=== PATIENT | female | born 1945 | race American Indian/Alaskan Native ===

== ENCOUNTER 2019-01-15 07:32 | Inpatient (IN) | payer MEDICARE, MEDICAID ==
[2019-01-15] MEDS ORDERED: AMIDATE IV ONE (07:45)
[2019-01-15] MEDS ORDERED: QUELICIN ONE (07:45)
--- NOTE | 2019-01-15 07:53 | Emergency Department Report ---
HPI - General Chief Complaint: Dyspnea/Respdistress Time Seen by Provider: 01/15/19 07:46 - HPI HPI: Room 21 The patient is a 73-year-old male presenting with chief complaint of cardiac arrest. EMS states they received a call for respiratory distress upon arrival to [facility] pulseless apneic floor with a bradycardic PEA. Patient was intubated with a Combitube and ACLS protocols initiated. Per EMS the patient was administered epinephrine 2 rounds with return of spontaneous circulation. Patient arrived to the ED with a pulse, normotensive satting 100% supplemental O2. The Combitube was removed and the patient was intubated using RSI by [place]. 09:15 Family and besides states the patient is complaining of shortness of breath since . The patient has been sneezing but no history of cough Location: [See above] Duration: [See above] Quality: [See above] Severity: [See above] Modifying factors: [see above] Context: [see above] Mode of transportation: [not driving] ED Past Medical Hx - Past Medical History Previous Medical History?: Yes Hx Hypertension: Yes Additional medical history: Anemia - Surgical History Past Surgical History?: No - Family History Family history: no significant - Social History Smoking Status: Unknown if ever smoked ED Review of Systems ROS: Stated complaint: CARDIAC ARREST Other details as noted in HPI Comment: Unobtainable due to pts medical conditions Physical Exam - Physical Exam Vital Signs: Vital Signs 01/15/19 07:39 Pulse Rate 112 H Blood Pressure 121/83 O2 Sat by Pulse 100 Oximetry Physical Exam: GENERAL: The patient is well-developed well-nourished female lying on stretcher intubated with a Combitube exhibiting agonal respirations. [] HEENT: Normocephalic. Atraumatic. Pupils 3-2 mm bilaterally NECK: Trachea midline CHEST/LUNGS: Breath sounds equal bilaterally. Being bagged HEART/CARDIOVASCULAR: Regular. There is no tachycardia. There is no gallop rub or murmur. ABDOMEN: Abdomen is soft, nontender. Patient has normal bowel sounds. There is no abdominal distention. SKIN: There is no rash. There is no edema. There is no diaphoresis. NEURO: GCS 3T MUSCULOSKELETAL: There is no evidence of acute injury. ED Course Vital Signs 01/15/19 07:39 Pulse Rate 112 H Blood Pressure 121/83 O2 Sat by Pulse 100 Oximetry - Intubation Time Out Performed: No Sedative: Etomidate Mg Given: 20 Paralytic: Succinylcholine Mg Given: 100 Laryngoscope: Gerard Size: 3 ET Tube Size: 7 Tube Secured Depth (cm): 21 Tube Secured Location: lips Tube Placement Confirmation: visualized tube passing t, equal breath sounds bilat, no breath sounds over epi, confirmation by capnometr Patient Tolerated Procedure: well, no complications Intubation Complications: none ED Medical Decision Making - Lab Data Result diagrams: 01/15/19 07:50 01/15/19 07:50 Laboratory Tests 01/15/19 01/15/19 01/15/19 07:50 07:50 07:50 WBC 8.2 RBC 4.10 Hgb 12.1 Hct 40.4 MCV 99 H MCH 30 MCHC 30 RDW 16.7 H Plt Count 122 L PT 19.7 H INR 1.56 H APTT 36.0 Sodium 139 Potassium 3.9 Chloride 99.9 Carbon Dioxide 11 L Anion Gap 32 BUN 15 Creatinine 1.4 H Estimated GFR 44 BUN/Creatinine Ratio 11 Glucose 268 H Calcium 8.9 Total Bilirubin 0.50 ALT 29 Alkaline Phosphatase 61 Total Creatine Kinase 115 CK-MB (CK-2) 2.2 CK-MB (CK-2) Rel Index 1.9 Troponin T < 0.010 NT-Pro-B Natriuret Pep 5346 H Total Protein 6.3 Albumin 3.6 L Albumin/Globulin Ratio 1.3 - EKG Data -: EKG Interpreted by Me EKG shows normal: sinus rhythm Rate: tachycardia (102 bpm) - EKG Data When compared to previous EKG there are: previous EKG unavailable Interpretation: nonspecific ST-T wave brenda (ST depressions inferiorly and anteriorly), other (frequent PACs) - Radiology Data Radiology results: report reviewed (chest x-ray), image reviewed (chest x-ray) interpreted by me: Chest [id number] haziness right lung field. ET tube in appropriate position [facility] [address] [place] [address] XRay Report Signed Patient: ELLA RAPHAEL MR#: [id number] [birth year] : 1945 Acct:[id number] Age/Sex: 73 / F ADM Date: 01/15/19 Loc: ED Attending Dr: Celia vann Physician: LEORA PENNY MD Date of Service: 01/15/19 Procedure(s): XR chest 1V ap Accession Number(s): [id number] cc: LEORA PENNY MD Fluoro Time In Minutes: AP CHEST: HISTORY: Status post cardiac arrest No comparison. An endotracheal tube is in position terminating 4.6 cm superior to the john. Mild cardiomegaly is suspected. The lungs are hyperinflated. Subtle infiltration is noted in the right perihilar region and left lower lobe. This could represent congestive changes or less likely infiltrates. No large pleural effusion or pneumothorax is detected on portable AP chest. IMPRESSION: Adequate placement of the endotracheal tube. Hyperinflated lungs with subtle areas of infiltration as d escribed. Mild cardiomegaly. Transcribed By: TTR Dictated By: WING GIVENS JR, MD Electronically Authenticated By: WING GIVENS JR, MD Signed Date/Time: 01/15/19913 DD/ 1 TD/TT: 01/15/19913 - Differential Diagnosis respiratory arrest, cardiac arrest, ACS Critical Care Time: Yes Critical care time in (mins) excluding proc time.: 30 Critical care attestation.: If time is entered above; I have spent that time in minutes in the direct care of this critically ill patient, excluding procedure time. ED Disposition Clinical Impression: Respiratory arrest, CHF (congestive heart failure) Disposition: OP ADMIT IP TO THIS HOSP Is pt being admited?: Yes Does the pt Need Aspirin: Yes Condition: Serious Referrals: BRIELLE STEWART MD [Primary Care Provider] - 3-5 Days Time of Disposition: 09:41 (hospitalist paged )
[2019-01-15 08:14] LABS: INR 1.56 (0.87-1.13)
[2019-01-15] MEDS: INTROPIN DRIP 800 MG/D5W 250 ML 800 MG/250 ML BAG IV ONE (09:03)
[2019-01-15 09:10] LABS: Hematocrit 40.4 % (30.3-42.9); Hemoglobin 12.1 gm/dl (10.1-14.3); Mean Corpuscular HGB Conc 30 % (30-34); Mean Corpuscular Volume 99 fl (79-97); Platelet Count 122 K/mm3 (140-440); Red Cell Distribution Width 16.7 % (13.2-15.2)
--- NOTE | 2019-01-15 09:18 | XRay Report ---
AP CHEST: HISTORY: Status post cardiac arrest No comparison. An endotracheal tube is in position terminating 4.6 cm superior to the john. Mild cardiomegaly is suspected. The lungs are hyperinflated. Subtle infiltration is noted in the right perihilar region and left lower lobe. This could represent congestive changes or less likely infiltrates. No large pleural effusion or pneumothorax is detected on portable AP chest. IMPRESSION: Adequate placement of the endotracheal tube. Hyperinflated lungs with subtle areas of infiltration as described. Mild cardiomegaly.
[2019-01-15 09:34] LABS: Creatine Kinase MB 2.2 ng/mL (0.0-4.0)
[2019-01-15 09:35] LABS: Alanine Aminotransferase 29 units/L (7-56); Albumin 3.6 g/dL (3.9-5); BUN/Creatinine Ratio 11; Blood Urea Nitrogen 15 mg/dL (7-17); Calcium 8.9 mg/dL (8.4-10.2); Hemolysis Index 78
[2019-01-15] MEDS ORDERED: ASPIRIN PR ONE (09:42)
[2019-01-15] MEDS: ATIVAN IV PRN ×2 (09:45→12:43)
[2019-01-15 10:40] LABS: Eosinophils % (Auto) 0.8 % (0.0-4.3); Monocytes % (Auto) 4.6 % (0.0-7.3)
--- NOTE | 2019-01-15 10:50 | History and Physical Report ---
History of Present Illness Date of examination: 01/15/19 Date of admission: 01/15/19 09:46 Chief complaint: s/p cardioresp arrest at home History of present illness: Patient is 73 yo with hypertension, CAD s/p stent, COPD/emphesema, not on home Oxygen. Brought in by paramedics after cardioresp arrest at home. History obtained from daughter and granddaughter at bedside. From history, patient has been complaining of shortness of breath since . Patient called a family member that she had more shortness of breath today. Family member lives in same Apartment complex, same floor, came to her, found her on floor not breathing, started CPR, called paramedics. She was in jhon PEA, given 2 rounds Epinephrine, CPR, intubated , resucitated, and brought to ED. patient was seen and evaluated in ED. Will admit to ICU. Past History Past Medical History: CAD (stent placement), COPD, heart failure, hypertension, stroke, other (Emphesema) Past Surgical History: PTCA Social history: Lives alone, smoking, alcohol abuse (Drinks alcohol daily), full code Family history: CAD, hypertension Medications and Allergies Allergies Allergy/AdvReac Type Severity Reaction Status Date / Time No Known Allergies Allergy Unverified 01/15/19 08:23 Home Medications Medication Instructions Recorded Confirmed Last Taken Type AtorvaSTATin [Lipitor] 20 mg PO QHS 01/15/19 01/15/19 Unknown History Carvedilol [Coreg] 25 mg PO DAILY 01/15/19 01/15/19 Unknown History Furosemide [Lasix] 80 mg PO QWEEK 01/15/19 01/15/19 Unknown History Irbesartan 150 mg PO DAILY 01/15/19 01/15/19 Unknown History amLODIPine [Norvasc] 10 mg PO DAILY 01/15/19 01/15/19 Unknown History Active Meds: Active Medications Dopamine HCl/Dextrose (Intropin Drip 800 Mg/D5w 250 Ml) 800 mg in 250 mls @ 1.871 mls/hr IV TITR ONE; Protocol Stop: 01/20/19 22:31 Last Titration: 01/15/19 09:39 Dose: 6 mcg/kg/min, 5.613 mls/hr Documented by: Lorazepam (Ativan) 2 mg IV ONCE PRN PRN Reason: Agitation Last Admin: 01/15/19 09:45 Dose: 2 mg Documented by: Sodium Chloride (Sodium Chloride Flush Syringe 10 Ml) 10 ml IV BID DEON Sodium Chloride (Sodium Chloride Flush Syringe 10 Ml) 10 ml IV PRN PRN PRN Reason: LINE FLUSH Review of Systems ROS unobtainable: due to endotracheal tube Exam - Physical Exam Narrative exam: Gen: Not in acute distress,intubated HEENT: Normocephalic, atraumatic Neck: supple, no JVD Heart: S1 and S2 reg, no murmurs, rubs or gallop Lungs: Bilateral crackles, no wheeze Abd: soft, non tender, non distended, normal BS Ext: No edema, no clubbing, no cyanosis, Neuro: Intubated, Not following commands - Constitutional Vitals: Temp Pulse Resp BP Pulse Ox 75 20 116/67 100 01/15/19 10:25 01/15/19 10:25 01/15/19 10:25 01/15/19 10:15 Results - Labs CBC & Chem 7: 01/15/19 07:50 01/15/19 07:50 Labs: Abnormal lab results 01/15/19 01/15/19 01/15/19 Range/Units 07:50 07:50 07:50 MCV 99 H (79-97) fl RDW 16.7 H (13.2-15.2) % Plt Count 122 L (140-440) K/mm3 PT 19.7 H (12.2-14.9) Sec. INR 1.56 H (0.87-1.13) POC ABG pH (7.35-7.45) POC ABG pCO2 (35-45) Carbon Dioxide 11 L (22-30) mmol/L Creatinine 1.4 H (0.7-1.2) mg/dL Glucose 268 H (65-100) mg/dL AST 57 H (5-40) units/L NT-Pro-B Natriuret Pep 5346 H (0-900) pg/mL Albumin 3.6 L (3.9-5) g/dL 01/15/19 Range/Units 09:56 MCV (79-97) fl RDW (13.2-15.2) % Plt Count (140-440) K/mm3 PT (12.2-14.9) Sec. 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 Obtain stool cdiff, stool culture History of stroke in 1982 Full code status Discussed with family at bedside. Prognosis guarded
[2019-01-15] MEDS ORDERED: PROTONIX IV SCH (11:00)
[2019-01-15 12:41] LABS: Creatine Kinase MB 9.5 ng/mL (0.0-4.0)
--- NOTE | 2019-01-15 12:47 | Progress Note ---
Subjective Date of service: 01/15/19 Interval history: reviewed all ED notes and hx of resp arrest lab's noted and imaging studies reviewed plan EEG will follow Objective - Vital Sign Vital Signs - 12hr 01/15/19 01/15/19 01/15/19 07:34 07:36 07:39 Pulse Rate 113 H 125 H 112 H Respiratory 14 12 Rate Blood Pressure 136/63 121/83 O2 Sat by Pulse 100 Oximetry 01/15/19 01/15/19 01/15/19 07:40 07:45 07:50 Pulse Rate 106 H 113 H 112 H Respiratory 17 16 18 Rate Blood Pressure 136/63 121/83 121/83 O2 Sat by Pulse 100 100 100 Oximetry 01/15/19 01/15/19 01/15/19 07:55 08:00 08:05 Pulse Rate 107 H 102 H 98 H Respiratory 20 20 Rate Blood Pressure 151/100 151/100 145/97 O2 Sat by Pulse 100 Oximetry 01/15/19 01/15/19 01/15/19 08:10 08:15 08:20 Pulse Rate 95 H 92 H 90 Respiratory 20 20 19 Rate Blood Pressure 145/97 122/84 122/84 O2 Sat by Pulse 100 100 Oximetry 01/15/19 01/15/19 01/15/19 08:28 08:30 08:40 Pulse Rate 84 83 78 Respiratory 23 22 21 Rate Blood Pressure 101/69 93/62 O2 Sat by Pulse 87 100 Oximetry 01/15/19 01/15/19 01/15/19 08:45 08:50 08:55 Pulse Rate 77 75 74 Respiratory 20 20 20 Rate Blood Pressure 91/61 91/60 90/57 O2 Sat by Pulse 100 100 100 Oximetry 01/15/19 01/15/19 01/15/19 09:00 09:05 09:10 Pulse Rate 74 78 72 Respiratory 19 25 H 21 Rate Blood Pressure 92/59 86/56 92/64 O2 Sat by Pulse 100 100 100 Oximetry 01/15/19 01/15/19 01/15/19 09:15 09:20 09:25 Pulse Rate 71 71 70 Respiratory 20 21 22 Rate Blood Pressure 97/62 95/61 98/64 O2 Sat by Pulse 100 100 100 Oximetry 01/15/19 01/15/19 01/15/19 09:30 09:35 09:40 Pulse Rate 71 72 72 Respiratory 19 21 21 Rate Blood Pressure 102/66 99/63 105/69 O2 Sat by Pulse 100 100 100 Oximetry 01/15/19 01/15/19 01/15/19 09:45 09:50 09:55 Pulse Rate 71 73 74 Respiratory 20 20 20 Rate Blood Pressure 95/64 91/59 93/60 O2 Sat by Pulse 100 100 100 Oximetry 01/15/19 01/15/19 01/15/19 10:00 10:05 10:10 Pulse Rate 80 72 78 Respiratory 30 H 20 16 Rate Blood Pressure 102/65 110/64 109/75 O2 Sat by Pulse 100 100 100 Oximetry 01/15/19 01/15/19 01/15/19 10:15 10:20 10:25 Pulse Rate 79 78 75 Respiratory 17 13 20 Rate Blood Pressure 111/75 124/76 116/67 O2 Sat by Pulse 100 Oximetry 01/15/19 01/15/19 01/15/19 10:30 10:35 11:23 Pulse Rate 76 76 85 Respiratory 20 20 Rate Blood Pressure 110/70 119/78 175/83 O2 Sat by Pulse 100 100 Oximetry - Laboratory Findings CBC and BMP: 01/15/19 07:50 01/15/19 07:50 Abnormal Lab Findings: Abnormal Labs 01/15/19 01/15/19 01/15/19 07:50 07:50 07:50 MCV 99 H RDW 16.7 H Plt Count 122 L PT 19.7 H INR 1.56 H POC ABG pH POC ABG pCO2 Carbon Dioxide 11 L Creatinine 1.4 H Glucose 268 H AST 57 H CK-MB (CK-2) NT-Pro-B Natriuret Pep 5346 H Albumin 3.6 L 01/15/19 01/15/19 09:56 11:53 MCV RDW Plt Count PT INR POC ABG pH 7.186 L POC ABG pCO2 46.4 H Carbon Dioxide Creatinine Glucose AST CK-MB (CK-2) 9.5 H NT-Pro-B Natriuret Pep Albumin
--- NOTE | 2019-01-15 12:59 | Consultation ---
History of Present Illness Consult date: 01/15/19 Requesting physician: SURJIT CRAFT Reason for consult: hypoxemia, other (acute encephalopathy, on MVS) History of present illness: Patient is 73 yo with hypertension, CAD s/p stent, COPD/emphesema. Brought in by paramedics after cardiorespiratory arrest at home. History obtained from daughter and granddaughter at bedside. from history patient called a family member that she had more shortness of breath. family member lives in [facility], came to her, found her on floor not breathing, started CPR, called paramedics. She was in jhon PEA, given 2 rounds of epinephrine, CPR, intubated , resuscitated, brought to ED. family also states she has been short of breath on and off since . Discussed with Dr. Craft I have been consulted for critical care and ventilator management Patient seen and examined. Vitals, labs, medications, chart and imaging reviewed Past History Past Medical History: CAD (stent placement), COPD, heart failure, hypertension, stroke, other (Emphesema) Past Surgical History: PTCA Social history: Lives alone, smoking, alcohol abuse (Drinks alcohol daily), full code Family history: CAD, hypertension Medications and Allergies Allergies Allergy/AdvReac Type Severity Reaction Status Date / Time No Known Allergies Allergy Unverified 01/15/19 08:23 Home Medications Medication Instructions Recorded Confirmed Last Taken Type AtorvaSTATin [Lipitor] 20 mg PO QHS 01/15/19 01/15/19 Unknown History Carvedilol [Coreg] 25 mg PO DAILY 01/15/19 01/15/19 Unknown History Furosemide [Lasix] 80 mg PO QWEEK 01/15/19 01/15/19 Unknown History Irbesartan 150 mg PO DAILY 01/15/19 01/15/19 Unknown History amLODIPine [Norvasc] 10 mg PO DAILY 01/15/19 01/15/19 Unknown History Active Meds: Active Medications Albuterol/Ipratropium (Duoneb *Not For Prn Use*) 1 ampul IH Q6HRT DEON Atorvastatin Calcium (Lipitor) 20 mg PO QHS DEON Furosemide (Lasix) 20 mg IV ONCE ONE Stop: 01/15/19 10:55 Dopamine HCl/Dextrose (Intropin Drip 800 Mg/D5w 250 Ml) 800 mg in 250 mls @ 1.871 mls/hr IV TITR ONE; Protocol Stop: 01/20/19 22:31 Last Titration: 01/15/19 12:45 Dose: 2 mcg/kg/min, 1.871 mls/hr Documented by: Levetiracetam 750 mg/ Dextrose 107.5 mls @ 400 mls/hr IV Q12HR DEON Lorazepam (Ativan) 2 mg IV ONCE PRN PRN Reason: Agitation Last Admin: 01/15/19 12:43 Dose: 2 mg Documented by: Pantoprazole Sodium (Protonix) 40 mg IV QDAY DEON Sodium Chloride (Sodium Chloride Flush Syringe 10 Ml) 10 ml IV BID DEON Sodium Chloride (Sodium Chloride Flush Syringe 10 Ml) 10 ml IV PRN PRN PRN Reason: LINE FLUSH Review of Systems ROS unobtainable: due to endotracheal tube, due to mental status Physical Examination Vital signs: Vital Signs Pulse Resp 113 H 14 01/15/19 07:34 01/15/19 07:34 General appearance: no acute distress, other (myoclonic jerks of the upper extremities, chronically ill looking) Eyes: non-icteric ENT: oropharynx moist, other (ETT at 22 cm at the lip, no patient-ventilator dyssynchrony) Neck: supple, no lymphadenopathy, no JVD Effort: normal Ascultation: Bilateral: diminished breath sounds (at the base), other (coarse breath sound bilaterally upper lobes anteriorly) Cardiovascular: regular rate and rhythm, other (S1,S2, no murmurs, galoops or rubs) Gastrointestinal: normoactive bowel sounds, soft, non-tender, non-distended Integumentary: normal Extremities: no cyanosis, no edema, pulses normal, no ischemia or petechiae Musculoskeletal: no deformities other (unresponsive, has a cough and gag) other (unable to assess) Results - Laboratory Findings CBC and BMP: 01/16/19 04:16 01/16/19 04:16 ABG POC ABG pH 7.186 (7.35-7.45) L 01/15/19 09:56 POC ABG pCO2 46.4 (35-45) H 01/15/19 09:56 POC ABG HCO3 17.6 (22-26 mml/L) 01/15/19 09:56 POC ABG Total CO2 19 (23-27mmol/L) 01/15/19 09:56 POC ABG O2 Sat 100 01/15/19 09:56 PT/INR, D-dimer PT 19.7 Sec. (12.2-14.9) H 01/15/19 07:50 INR 1.56 (0.87-1.13) H 01/15/19 07:50 Abnormal lab findings: Abnormal Labs 01/15/19 01/15/19 01/15/19 07:50 07:50 07:50 MCV 99 H RDW 16.7 H Plt Count 122 L PT 19.7 H INR 1.56 H POC ABG pH POC ABG pCO2 Carbon Dioxide 11 L Creatinine 1.4 H Glucose 268 H AST 57 H CK-MB (CK-2) NT-Pro-B Natriuret Pep 5346 H Albumin 3.6 L 01/15/19 01/15/19 09:56 11:53 MCV RDW Plt Count PT INR POC ABG pH 7.186 L POC ABG pCO2 46.4 H Carbon Dioxide Creatinine Glucose AST CK-MB (CK-2) 9.5 H NT-Pro-B Natriuret Pep Albumin - Diagnostic Findings Chest x-ray: image reviewed (right upper lobe nodule, hyperinflated, coarse interstitial infiltrates) Assessment and Plan s/p Cardiopulmonary arrest, out of hospital, PEA with ROSC Acute encephalopathy, metabolic Acute metabolic acidosis Acute respiratory acidosis Seizure activity Abnormal CXR., possible RUL nodule h/o Alcohol use h/o Tobacco use disorder -CT head and EEG -Continue full MVS, get follow up ABG. -Adjust minute ventilation for better acid-base -Wean supplemental oxygen to keep O2 sats 88-90% -Lung protective strategies -Oxygen restrictive strategies -Daily ABGs/CXR -Follow tracheal aspirate cultures -CT chest without contrast to evaluate RUL nodule and infiltrates in the right lung, possible aspiration -VAP bundle addressed -Volume resuscitation. Monitor renal indices closely -Avoid nephrotoxic agents, adjust all medications for CrCL -Strict intake and output monitoring -Wean dopamine for MAP >65 -Daily SAT's & SBT's, start in nori morning -Sedation target for RASS 0 to -1 -Stress ulcer prophylaxis -VTE prophylaxis, if CT head is negative for intra-cranial bleeding -Nutrition consult for tube feedings -Aspiration precautions -Accuchecks with glycemic control. Target glucose of 140-180 mg/dL -Bronchodilators with pulmonary hygiene per RT -Maintenance of sleep -wake cycle -Mobility as tolerated by hemodynamics -Influenza and pneumonia vaccination per protocol -Agree with Cardiology and Neurology consult -Get trans-thoracic echocardiogram ..care plan discussed at length with RN/RT at the bedside PROGNOSIS: GUARDED CONDITION: CRITICAL CODE STATUS: FULL CODE The high probability of a clinically significant, sudden or life-threatening deterioration of the [respiratory, neurology, renal] system(s) required my full and direct attention, intervention and personal management. The aggregate critical care time was [75] minutes without overlap. Time includes spent on; [x] Data Review and interpretation [x] Patient assessment and monitoring of vital signs [x] Documentation [x] Medication orders and management
--- NOTE | 2019-01-15 13:34 | Event Note ---
Date: 01/15/19 Called by Nurse that Patient has jerky movements. Give Ativan iv prn, Keppra 750mg iv q12h. get CT head. Consult neuro. I discussed with Dr. gomez.
--- NOTE | 2019-01-15 13:39 | Consultation ---
History of Present Illness Consult date: 01/15/19 Consult reason: cardiac arrest History of present illness: Patient is a 73 y/o female with a history of diastolic HF, cardiomyopathy, CAD s/p stent (date unknown), pericardial effusion requiring pericardiocentesis (2012), hypertension, COPD with emphysema, CKD and gout who presented to the ED on 01/15/19 after a cardiac arrest. Patient is currently intubated and unresponsive and there is no family at beside, so history obtained from EMR. Per records, patient called a family member c/o increasing SOB. When family member arrived, he found her unresponsive and not breathing on floor and began CPR. EMS found her in jhon PEA and she received two rounds of epi and CPR. Family also reports she has had worsening SOB since . She follows with Dr. Montoya at [facility]. Chest X-ray showed hyperinflated lungs with areas of infiltration. We are consulted to evaluate patient post-arrest. Pro-BNP >5000. Her last echocardiogram in 2013 found an LVEF of 50 to 55 percent, a moderately dilated left atrium and right atrium, mild diastolic dysfunction with an impaired relaxation and normal LA pressure, mild to moderate TR, mild MR and mildly elevated RV systolic pressure. Past History Past Medical History: CAD (stent placement), COPD (with emphysema), heart failure, hypertension, stroke, other (Gout, CKD) Past Surgical History: PTCA Social history: Lives alone, smoking, alcohol abuse (Drinks alcohol daily), full code Family history: CAD, hypertension Medications and Allergies Allergies Allergy/AdvReac Type Severity Reaction Status Date / Time No Known Allergies Allergy Unverified 01/15/19 08:23 Home Medications Medication Instructions Recorded Confirmed Last Taken Type AtorvaSTATin [Lipitor] 20 mg PO QHS 01/15/19 01/15/19 Unknown History Carvedilol [Coreg] 25 mg PO DAILY 01/15/19 01/15/19 Unknown History Furosemide [Lasix] 80 mg PO QWEEK 01/15/19 01/15/19 Unknown History Irbesartan 150 mg PO DAILY 01/15/19 01/15/19 Unknown History amLODIPine [Norvasc] 10 mg PO DAILY 01/15/19 01/15/19 Unknown History Active Meds: Active Medications Albuterol/Ipratropium (Duoneb *Not For Prn Use*) 1 ampul IH Q6HRT DEON Atorvastatin Calcium (Lipitor) 20 mg PO QHS DEON Famotidine (Pepcid) 20 mg IV DAILY DEON Furosemide (Lasix) 20 mg IV ONCE ONE Stop: 01/15/19 14:01 Dopamine HCl/Dextrose (Intropin Drip 800 Mg/D5w 250 Ml) 800 mg in 250 mls @ 1.871 mls/hr IV TITR ONE; Protocol Stop: 01/20/19 22:31 Last Titration: 01/15/19 12:45 Dose: 2 mcg/kg/min, 1.871 mls/hr Documented by: Levetiracetam 750 mg/ Dextrose 107.5 mls @ 400 mls/hr IV Q12HR DEON Lorazepam (Ativan) 2 mg IV ONCE PRN PRN Reason: Agitation Last Admin: 01/15/19 12:43 Dose: 2 mg Documented by: Sodium Chloride (Sodium Chloride Flush Syringe 10 Ml) 10 ml IV BID DEON Sodium Chloride (Sodium Chloride Flush Syringe 10 Ml) 10 ml IV PRN PRN PRN Reason: LINE FLUSH Review of Systems ROS unobtainable: due to endotracheal tube, due to mental status Physical Examination Last Vital Signs Temp Pulse 85 01/15/19 11:23 Resp 20 01/15/19 10:35 BP 175/83 01/15/19 11:23 Pulse Ox 100 01/15/19 11:23 Narrative exam: Elderly female lying in bed intubated unresponsive with some intermittent jerking movements noted. Post-arrest EKG shows ischemic changes and T-wave abnormalities. Cardiac: Positive: Reg Rate and Rhythm, S1/S2 Lungs: Positive: Ventilated Respirations Neuro: Positive: Other (jerking movements, unresponsive ) Results 01/15/19 07:50 01/15/19 07:50 Cardiac Enzymes 01/15/19 01/15/19 Range/Units 07:50 11:53 AST 57 H (5-40) units/L CK-MB (CK-2) 2.2 9.5 H (0.0-4.0) ng/mL Coagulation 01/15/19 Range/Units 07:50 PT 19.7 H (12.2-14.9) Sec. INR 1.56 H (0.87-1.13) APTT 36.0 (24.2-36.6) Sec. CBC 01/15/19 Range/Units 07:50 WBC 8.2 (4.5-11.0) K/mm3 RBC 4.10 (3.65-5.03) M/mm3 Hgb 12.1 (10.1-14.3) gm/dl Hct 40.4 (30.3-42.9) % Plt Count 122 L (140-440) K/mm3 Lymph # Not Reportable [place] # Not Reportable Eos # Not Reportable Baso # Not Reportable Comprehensive Metabolic Panel 01/15/19 Range/Units 07:50 Sodium 139 (137-145) mmol/L Potassium 3.9 (3.6-5.0) mmol/L Chloride 99.9 (98-107) mmol/L Carbon Dioxide 11 L (22-30) mmol/L BUN 15 (7-17) mg/dL Creatinine 1.4 H (0.7-1.2) mg/dL Glucose 268 H (65-100) mg/dL Calcium 8.9 (8.4-10.2) mg/dL AST 57 H (5-40) units/L ALT 29 (7-56) units/L Alkaline Phosphatase 61 (35-129) units/L Total Protein 6.3 (6.3-8.2) g/dL Albumin 3.6 L (3.9-5) g/dL - Imaging and Cardiology Echo: report reviewed (LVEF of 50 to 55 percent, a moderately dilated left atrium and right atrium, mild diastolic dysfunction with an impaired relaxation and 09/03/2014: normal LA pressure, mild to moderate TR, mild MR and mildly elevated RV systolic pressure), other EKG: image reviewed - EKG Interpretation EKG: sinus rhythm EKG interpretations Chamber hypertrophy or enlargement: left ventricular hypertro Repolarization changes or abnormalities: ST or T wave suggestive of ischemia Assessment and Plan 73 y/o female with cardiac history that includes HF, cardiomyopathy, htn and CAD admitted after arrest at home. Initiated on dopamine drip, but now discontinue d. Will obtain echocardiogram. Will further evaluate for possible ischemia workup after patient medically stabilizes. Continue to hold home Coreg, irbesartan, Lasix and Norvasc for now. Patient has been seen in conjunction with Dr. Tucker, who agrees with assessment and plan. - Patient Problems (1) Cardiac arrest Current Visit: Yes Status: Acute (2) Respiratory arrest Current Visit: Yes Status: Acute (3) Altered mental status Current Visit: Yes Status: Acute (4) CHF (congestive heart failure) Current Visit: Yes Status: Acute (5) Cardiomyopathy Current Visit: Yes Status: Chronic (6) CKD (chronic kidney disease) Current Visit: Yes Status: Chronic (7) CAD S/P percutaneous coronary angioplasty Current Visit: Yes Status: Chronic (8) Stroke Current Visit: No Status: Chronic (9) COPD (chronic obstructive pulmonary disease) with emphysema Current Visit: Yes Status: Acute (10) Gout Current Visit: No Status: Chronic
[2019-01-15] MEDS: PEPCID IV SCH (13:44)
[2019-01-15] MEDS ORDERED: LASIX IV ONE (14:00)
[2019-01-15] MEDS: DUONEB *Not for PRN Use IH SCH ×2 (14:30→22:13)
[2019-01-15] MEDS ORDERED: SODIUM BICARBONATE FEEDTUBE PRN (14:37)
[2019-01-15] MEDS ORDERED: PANCREAZE DR 10,500 UNIT FEEDTUBE PRN (14:37)
[2019-01-15] MEDS ORDERED: SIMPLE SYRUP FEEDTUBE PRN ×2 (14:37)
--- NOTE | 2019-01-15 14:59 | Cat Scan Report ---
CT HEAD WITHOUT CONTRAST: HISTORY: Jerky movements. TECHNIQUE: Sequential 2.5mm CT images. COMPARISON: none. FINDINGS: Cerebral Parenchyma: Within normal limits. Cerebellum: 4.1 x 2.1 cm chronic infarct is identified in the superior right cerebellum within the right superior cerebellar artery territory. Brainstem: Within normal limits. Ventricles: Normal. Sella: Normal. Extra-axial spaces: Normal. Basal Cisterns: Normal. Intracranial Hemorrhage: None. Midline Shift: None. Calvarium: Normal. Sinuses: Normal. Mastoid Air Cells: Normal. Visualized Orbits: Normal. IMPRESSION: Chronic right cerebellar infarct. No acute intracranial process is identified.
--- NOTE | 2019-01-15 15:02 | Cat Scan Report ---
CT CHEST WITHOUT CONTRAST: HISTORY: Right lung nodule/infiltrates, post PEA arrest. COMPARISON: none. TECHNIQUE: Helical CT in 1.25mm intervals without IV contrast. Sagittal and coronal reformatted images. FINDINGS: Thyroid gland: Normal size. 5 mm left thyroid hypodensity is noted. Tracheobronchial tree: An endotracheal tube is in good position. Esophagus: Normal. Heart: Mild cardiomegaly. Pericardium: Normal. Mediastinum: 1 cm calcified right hilar lymph node probably related to chronic granulomatous disease. Lung Hansen: Within normal limits. No no suspicious lung nodule is identified. Calcified granuloma is noted in the right lower lobe. No infiltrates. Pleural Spaces: Trace to small bilateral layering pleural effusions. Musculoskeletal: Intact. Mild thoracic spondylosis. IMPRESSION: Mild CHF.
[2019-01-15] MEDS: KEPPRA 750 MG in D5W 100 ML IV SCH ×2 (15:12→21:42)
--- NOTE | 2019-01-15 16:10 | Progress Note ---
Subjective Date of service: 01/15/19 Interval history: I personally went over the CT and nothing specific to note only generalized atrophy do not see any specific pattern of brain edema Objective - Vital Sign Vital Signs - 12hr 01/15/19 01/15/19 01/15/19 07:34 07:36 07:39 Pulse Rate 113 H 125 H 112 H Respiratory 14 12 Rate Blood Pressure 136/63 121/83 O2 Sat by Pulse 100 Oximetry 01/15/19 01/15/19 01/15/19 07:40 07:45 07:50 Pulse Rate 106 H 113 H 112 H Respiratory 17 16 18 Rate Blood Pressure 136/63 121/83 121/83 O2 Sat by Pulse 100 100 100 Oximetry 01/15/19 01/15/19 01/15/19 07:55 08:00 08:05 Pulse Rate 107 H 102 H 98 H Respiratory 20 20 Rate Blood Pressure 151/100 151/100 145/97 O2 Sat by Pulse 100 Oximetry 01/15/19 01/15/19 01/15/19 08:10 08:15 08:20 Pulse Rate 95 H 92 H 90 Respiratory 20 20 19 Rate Blood Pressure 145/97 122/84 122/84 O2 Sat by Pulse 100 100 Oximetry 01/15/19 01/15/19 01/15/19 08:28 08:30 08:40 Pulse Rate 84 83 78 Respiratory 23 22 21 Rate Blood Pressure 101/69 93/62 O2 Sat by Pulse 87 100 Oximetry 01/15/19 01/15/19 01/15/19 08:45 08:50 08:55 Pulse Rate 77 75 74 Respiratory 20 20 20 Rate Blood Pressure 91/61 91/60 90/57 O2 Sat by Pulse 100 100 100 Oximetry 01/15/19 01/15/19 01/15/19 09:00 09:05 09:10 Pulse Rate 74 78 72 Respiratory 19 25 H 21 Rate Blood Pressure 92/59 86/56 92/64 O2 Sat by Pulse 100 100 100 Oximetry 01/15/19 01/15/19 01/15/19 09:15 09:20 09:25 Pulse Rate 71 71 70 Respiratory 20 21 22 Rate Blood Pressure 97/62 95/61 98/64 O2 Sat by Pulse 100 100 100 Oximetry 01/15/19 01/15/19 01/15/19 09:30 09:35 09:40 Pulse Rate 71 72 72 Respiratory 19 21 21 Rate Blood Pressure 102/66 99/63 105/69 O2 Sat by Pulse 100 100 100 Oximetry 01/15/19 01/15/19 01/15/19 09:45 09:50 09:55 Pulse Rate 71 73 74 Respiratory 20 20 20 Rate Blood Pressure 95/64 91/59 93/60 O2 Sat by Pulse 100 100 100 Oximetry 01/15/19 01/15/19 01/15/19 09:56 10:00 10:05 Pulse Rate 74 80 72 Respiratory 30 H 20 Rate Blood Pressure 91/59 102/65 110/64 O2 Sat by Pulse 100 100 100 Oximetry 01/15/19 01/15/19 01/15/19 10:10 10:15 10:20 Pulse Rate 78 79 78 Respiratory 16 17 13 Rate Blood Pressure 109/75 111/75 124/76 O2 Sat by Pulse 100 100 Oximetry 01/15/19 01/15/19 01/15/19 10:25 10:30 10:35 Pulse Rate 75 76 76 Respiratory 20 20 20 Rate Blood Pressure 116/67 110/70 119/78 O2 Sat by Pulse 100 Oximetry 01/15/19 01/15/19 11:23 14:41 Pulse Rate 85 97 H Respiratory Rate Blood Pressure 175/83 126/74 O2 Sat by Pulse 100 99 Oximetry - Laboratory Findings CBC and BMP: 01/15/19 07:50 01/15/19 07:50 Abnormal Lab Findings: Abnormal Labs 01/15/19 01/15/19 01/15/19 07:50 07:50 07:50 MCV 99 H RDW 16.7 H Plt Count 122 L PT 19.7 H INR 1.56 H POC ABG pH POC ABG pCO2 Carbon Dioxide 11 L Creatinine 1.4 H Glucose 268 H AST 57 H Total Creatine Kinase CK-MB (CK-2) NT-Pro-B Natriuret Pep 5346 H Albumin 3.6 L 01/15/19 01/15/19 09:56 11:53 MCV RDW Plt Count PT INR POC ABG pH 7.186 L POC ABG pCO2 46.4 H Carbon Dioxide Creatinine Glucose AST Total Creatine Kinase 683 H CK-MB (CK-2) 9.5 H NT-Pro-B Natriuret Pep Albumin
--- NOTE | 2019-01-15 16:52 | XRay Report ---
PROCEDURE: XR CHEST 1V AP TECHNIQUE: AP view of the chest was obtained. HISTORY: Right arm PICC placement COMPARISONS: None FINDINGS: Endotracheal tube in place. The tip lies 4.5 cm above the john. PICC line seen entering from the ri ght. Tip of the catheter projects in the proximal SVC. The heart is mildly enlarged. Pulmonary vascul ature not significantly distended. Minimal patchy density present in the bases probably representing a small amount of atelectasis. No dense consolidations or effusions are seen. There is mild deformity of the left ninth rib laterally. This may be related to old trauma. Correlation with physical exam i s recommended to exclude an acute fracture. IMPRESSION: Endotracheal tube and PICC line in place as described and appear to be in good position. Small amount of basilar atelectasis suspected. Mild deformity left ninth rib may be related to old trauma. Correlation with physical exam is recomme nded.. This document is electronically signed by Toby Aparicio MD., January 15 2019 04:50:44 PM ET
[2019-01-15 17:05] LABS: Amphetamine Screen,Urine PRESUMPTIVE NEGATIVE; Benzodiazepines Screen,Urine PRESUMPTIVE NEGATIVE; Cannabinoid Screen,Urine PRESUMPTIVE NEGATIVE; Cocaine Screen,Urine PRESUMPTIVE NEGATIVE; Methadone Screen,Urine PRESUMPTIVE NEGATIVE; Opiate Screen,Urine PRESUMPTIVE NEGATIVE
--- NOTE | 2019-01-15 17:49 | XRay Report ---
PROCEDURE: XR ABDOMEN 1V AP TECHNIQUE: Supine abdomen HISTORY: DOBHOFF confirmation COMPARISONS: FINDINGS: Feeding tube present. Distal end below the diaphragm with tip at the gastric fundus Visualized bowel gas pattern is unremarkable. No additional acute findings. IMPRESSION: Dobbhoff tube with tip at the fundus of the stomach. This document is electronically signed by José Perez MD., January 15 2019 05:47:02 PM ET
[2019-01-15 18:44] LABS: Creatine Kinase MB 13.5 ng/mL (0.0-4.0)
[2019-01-15 19:48] LABS: Chol/HDL Ratio 2.29 %
[2019-01-15] MEDS: SODIUM CHLORIDE FLUSH SYRINGE 10 ML IV SCH (21:43)
--- NOTE | 2019-01-16 01:11 | Consultation ---
HISTORY OF PRESENT ILLNESS: This 73-year-old black female that presents to [facility] Emergency Department. This patient is admitted to the hospital with a prior history of asthmatic bronchitis, COPD, and has had a previous history of hypertension. She apparently was at home, had been taking medications including Lasix, Norvasc, Coreg, Lipitor and irbesartan 150 mg daily was in her usual state of health when she was then found by neighbors lying face down, not breathing. EMS was called. Resuscitation was attempted. She was brought to the hospital in a full respiratory and cardiac arrest. Detailed testing done at that time did not reveal any prior history of seizures or strokes. She has had in the interval a CT scan of the head, which is done and I have reviewed. There was evidence of diffuse cerebral atrophy, very profound in the cerebellum with marked atrophy of the cerebellum. There is a calcification of the choroid plexus in the fourth ventricle, which is a normal anatomical variation. There is calcification of the pineal gland. The jacinto and white matter is, otherwise, unremarkable. No evidence of any acute stroke is present. There is no intracerebral hemorrhage, bleed or edema noted. The remainder of the examination reveals her to be markedly obtunded. She has had occasional myoclonic jerks. Her current blood pressure is 100/70, pulse rate 80. The patient is on full ventilatory assist and she does not respond to pain, does not awaken to voice or stimulation. She does not track with her eyes open. She does have intact doll's eyes, but minimally present. Pupils are 4 mm and very sluggishly reactive to light. She does not move spontaneously. She has a minimally positive gag reflex. IMPRESSION: Profound cerebral hypoxia due to both cardiac and respiratory arrest. I do not see any evidence on the CT of anything out of the ordinary that would have precipitated this such as intracranial hemorrhage. I will get an EEG on the patient. I did speak with Dr. Hassan at the bedside regarding cardiology assessment that is all pending at present time. JOB# [id number] MYRNA/VIANEY
[2019-01-16] MEDS: DUONEB *Not for PRN Use IH SCH ×4 (05:05→19:30)
[2019-01-16 05:23] LABS: Hematocrit 34.8 % (30.3-42.9); Hemoglobin 11.6 gm/dl (10.1-14.3); Mean Corpuscular HGB Conc 33 % (30-34); Mean Corpuscular Volume 87 fl (79-97); Platelet Count 105 K/mm3 (140-440); Red Cell Distribution Width 14.3 % (13.2-15.2)
[2019-01-16 05:43] LABS: Albumin 3.5 g/dL (3.9-5); Calcium 8.1 mg/dL (8.4-10.2)
[2019-01-16] MEDS: INTROPIN DRIP 800 MG/D5W 250 ML 800 MG/250 ML BAG IV ONE (06:18)
[2019-01-16 07:37] LABS: Band Neutrophils # (Manual) 2.5 K/mm3; Basophils % (Manual) 0 % (0.0-1.8); Eosinophils % (Manual) 0 % (0.0-4.3); RBC Morphology Normal; Total Cells Counted 100
[2019-01-16 07:38] LABS: Platelet Estimate Consistent w Auto
[2019-01-16] MEDS ORDERED: POTASSIUM CHLORIDE FEEDTUBE ONE (08:00)
--- NOTE | 2019-01-16 08:55 | Progress Note ---
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 Deescalate as indicated -Discussed extensively with the grand-daughter, who is the POA. -She wants everything done, full resuscitation and all life prolonging interventions -She is waiting on Neurology and EEG follow up -Continue all other care as detailed below -Continue full MVS -Wean supplemental oxygen to keep O2 sats 88-90% -Lung protective strategies -Oxygen restrictive strategies -Daily ABGs/CXR for now -Follow tracheal aspirate cultures -VAP bundle addressed -Monitor renal indices closely -Avoid nephrotoxic agents, adjust all medications for CrCL -Strict intake and output monitoring -Daily SAT & SBT -Sedation target for RASS 0 to -1 -Stress ulcer prophylaxis -VTE prophylaxis, -Tube feedings -Aspiration precautions -Accuchecks with glycemic control. Target glucose of 140-180 mg/dL -Bronchodilators with pulmonary hygiene per RT -Maintenance of sleep -wake cycle -Mobility as tolerated by hemodynamics -Influenza and pneumonia vaccination per protocol ..care plan discussed at length with RN/RT at the bedside ..discussed in ICU-IDT rounds PROGNOSIS: GUARDED CONDITION: CRITICAL CODE STATUS: FULL CODE The high probability of a clinically significant, sudden or life-threatening deterioration of the [respiratory, neurology, renal] system(s) required my full and direct attention, intervention and personal management. The aggregate critical care time was [45] minutes without overlap. Time includes spent on; [x] Data Review and interpretation [x] Patient assessment and monitoring of vital signs [x] Documentation [x] Medication orders and management Subjective Date of service: 01/16/19 Interval history: Patient is seen today for: out of hospital arrest with ROSC, acute hypoxemic respiratory failure, acute encephalopathy Seen and examined at bedside; 24-hour events reviewed; nursing and respiratory care staff consulted; no adverse overnight events reported to me; Had a fever, with Tmax of 101, had a cooper placed for acute urinary retention, no further seizure like activity, tolerating PSV 08/24 with tidal volumes of 380. Had diarrheal stools. No vomiting. Objective Vital Signs - 12hr 01/15/19 01/15/19 01/15/19 21:00 21:11 21:21 Temperature Pulse Rate 105 H 106 H 103 H Pulse Rate [ Anterior Bilateral Throughout] Pulse Rate [ From Monitor] Respiratory 22 22 21 Rate Respiratory Rate [Anterior Bilateral Throughout] Blood Pressure 118/75 112/70 112/70 O2 Sat by Pulse 100 100 Oximetry 01/15/19 01/15/19 01/15/19 21:30 21:41 21:51 Temperature Pulse Rate 105 H 102 H 102 H Pulse Rate [ Anterior Bilateral Throughout] Pulse Rate [ From Monitor] Respiratory 23 23 24 Rate Respiratory Rate [Anterior Bilateral Throughout] Blood Pressure 122/72 122/72 122/72 O2 Sat by Pulse 100 100 100 Oximetry 01/15/19 01/15/19 01/15/19 22:00 22:11 22:21 Temperature Pulse Rate 102 H 106 H 109 H Pulse Rate [ Anterior Bilateral Throughout] Pulse Rate [ From Monitor] Respiratory 20 25 H 20 Rate Respiratory Rate [Anterior Bilateral Throughout] Blood Pressure 108/70 108/70 108/70 O2 Sat by Pulse 100 100 88 Oximetry 01/15/19 01/15/19 01/15/19 22:31 22:41 22:51 Temperature Pulse Rate 119 H 114 H 106 H Pulse Rate [ Anterior Bilateral Throughout] Pulse Rate [ From Monitor] Respiratory 21 24 20 Rate Respiratory Rate [Anterior Bilateral Throughout] Blood Pressure 106/58 108/70 108/70 O2 Sat by Pulse 88 100 Oximetry 01/15/19 01/15/19 01/15/19 23:01 23:11 23:21 Temperature Pulse Rate 105 H 105 H 105 H Pulse Rate [ Anterior Bilateral Throughout] Pulse Rate [ From Monitor] Respiratory 20 20 22 Rate Respiratory Rate [Anterior Bilateral Throughout] Blood Pressure 119/74 119/74 119/74 O2 Sat by Pulse 100 100 100 Oximetry 01/15/19 01/15/19 01/15/19 23:30 23:41 23:51 Temperature Pulse Rate 106 H 105 H 103 H Pulse Rate [ Anterior Bilateral Throughout] Pulse Rate [ From Monitor] Respiratory 22 24 20 Rate Respiratory Rate [Anterior Bilateral Throughout] Blood Pressure 120/81 120/81 120/81 O2 Sat by Pulse 100 100 100 Oximetry 01/15/19 01/16/19 01/16/19 23:59 00:00 00:02 Temperature 100.2 F H Pulse Rate 105 H 105 H Pulse Rate [ Anterior Bilateral Throughout] Pulse Rate [ 105 H From Monitor] Respiratory 22 Rate Respiratory Rate [Anterior Bilateral Throughout] Blood Pressure 130/79 130/79 O2 Sat by Pulse 100 100 Oximetry 01/16/19 01/16/19 01/16/19 00:11 00:21 00:30 Temperature Pulse Rate 103 H 105 H 103 H Pulse Rate [ Anterior Bilateral Throughout] Pulse Rate [ From Monitor] Respiratory 22 27 H 24 Rate Respiratory Rate [Anterior Bilateral Throughout] Blood Pressure 130/79 130/79 140/78 O2 Sat by Pulse 100 100 Oximetry 01/16/19 01/16/19 01/16/19 00:41 00:51 01:00 Temperature Pulse Rate 104 H 109 H 105 H Pulse Rate [ Anterior Bilateral Throughout] Pulse Rate [ From Monitor] Respiratory 24 25 H 23 Rate Respiratory Rate [Anterior Bilateral Throughout] Blood Pressure 140/78 140/78 144/81 O2 Sat by Pulse 100 100 99 Oximetry 01/16/19 01/16/19 01/16/19 01:11 01:21 01:30 Temperature Pulse Rate 106 H 105 H 106 H Pulse Rate [ Anterior Bilateral Throughout] Pulse Rate [ From Monitor] Respiratory 23 21 26 H Rate Respiratory Rate [Anterior Bilateral Throughout] Blood Pressure 140/78 140/78 136/79 O2 Sat by Pulse 100 100 100 Oximetry 01/16/19 01/16/19 01/16/19 01:41 01:51 02:00 Temperature Pulse Rate 107 H 108 H 106 H Pulse Rate [ Anterior Bilateral Throughout] Pulse Rate [ From Monitor] Respiratory 24 22 23 Rate Respiratory Rate [Anterior Bilateral Throughout] Blood Pressure 144/81 144/81 141/82 O2 Sat by Pulse 100 100 100 Oximetry 01/16/19 01/16/19 01/16/19 02:15 02:30 02:45 Temperature Pulse Rate 109 H 110 H 109 H Pulse Rate [ Anterior Bilateral Throughout] Pulse Rate [ From Monitor] Respiratory 24 26 H 25 H Rate Respiratory Rate [Anterior Bilateral Throughout] Blood Pressure 136/79 151/83 141/82 O2 Sat by Pulse 100 100 100 Oximetry 01/16/19 01/16/19 01/16/19 03:00 03:09 03:15 Temperature 100.4 F H Pulse Rate 111 H 111 H Pulse Rate [ Anterior Bilateral Throughout] Pulse Rate [ From Monitor] Respiratory 25 H 27 H Rate Respiratory Rate [Anterior Bilateral Throughout] Blood Pressure 152/84 152/84 O2 Sat by Pulse 100 100 Oximetry 01/16/19 01/16/19 01/16/19 03:30 03:45 04:00 Temperature Pulse Rate 111 H 113 H 114 H Pulse Rate [ Anterior Bilateral Throughout] Pulse Rate [ 115 H From Monitor] Respiratory 26 H 25 H 27 H Rate Respiratory Rate [Anterior Bilateral Throughout] Blood Pressure 147/89 152/84 151/87 O2 Sat by Pulse 100 100 Oximetry 01/16/19 01/16/19 01/16/19 04:15 04:30 04:45 Temperature Pulse Rate 115 H 114 H 115 H Pulse Rate [ Anterior Bilateral Throughout] Pulse Rate [ From Monitor] Respiratory 29 H 25 H 28 H Rate Respiratory Rate [Anterior Bilateral Throughout] Blood Pressure 147/89 146/88 151/87 O2 Sat by Pulse 100 100 100 Oximetry 01/16/19 01/16/19 01/16/19 05:00 05:15 05:30 Temperature Pulse Rate 114 H 116 H 115 H Pulse Rate [ Anterior Bilateral Throughout] Pulse Rate [ From Monitor] Respiratory 27 H 20 27 H Rate Respiratory Rate [Anterior Bilateral Throughout] Blood Pressure 151/87 146/88 139/81 O2 Sat by Pulse 99 100 98 Oximetry 01/16/19 01/16/19 01/16/19 05:45 06:00 07:58 Temperature Pulse Rate 116 H 118 H 123 H Pulse Rate [ Anterior Bilateral Throughout] Pulse Rate [ From Monitor] Respiratory 29 H 29 H Rate Respiratory Rate [Anterior Bilateral Throughout] Blood Pressure 139/81 145/86 164/92 O2 Sat by Pulse 100 98 100 Oximetry 01/16/19 01/16/19 01/16/19 08:07 08:11 08:22 Temperature Pulse Rate 115 H Pulse Rate [ 116 H 116 H Anterior Bilateral Throughout] Pulse Rate [ From Monitor] Respiratory 29 H Rate Respiratory 32 H 27 H Rate [Anterior Bilateral Throughout] Blood Pressure 152/84 O2 Sat by Pulse 100 Oximetry Constitutional: no acute distress, other (atraumatic, normocephalic, chronically looking, no patient-ventilator dyssynchrony) Eyes: non-icteric ENT: oropharynx moist, other (ETT at 23cm) Neck: supple, no lymphadenopathy, no JVD Effort: normal Ascultation: Bilateral: diminished breath sounds, rales (bilaterally) Cardiovascular: other (tacycardia, S1,S2, no murmurs, gallops or rubs) Gastrointestinal: normoactive bowel sounds, soft, non-tender, non-distended, other (Cooper catheter in place, FMS in place) Extremities: no cyanosis, no edema Neurologic: unable to assess Psychiatric: other (unable to assess secondary to mental status) CBC and BMP: 01/16/19 04:16 01/16/19 04:16 ABG, PT/INR, D-dimer: ABG POC ABG pH 7.458 (7.35-7.45) H 01/16/19 05:05 POC ABG pCO2 31.4 (35-45) L 01/16/19 05:05 POC ABG pO2 135 (80-105) H 01/16/19 05:05 POC ABG HCO3 22.2 (22-26 mml/L) 01/16/19 05:05 POC ABG Total CO2 23 (23-27mmol/L) 01/16/19 05:05 POC ABG O2 Sat 99 01/16/19 05:05 PT/INR, D-dimer PT 19.7 Sec. (12.2-14.9) H 01/15/19 07:50 INR 1.56 (0.87-1.13) H 01/15/19 07:50 Abnormal lab findings: Abnormal Labs 01/15/19 01/15/19 01/15/19 07:50 07:50 07:50 WBC MCV 99 H RDW 16.7 H Plt Count 122 L Seg Neuts % (Manual) Lymphocytes % (Manual) Seg Neutrophils # Man Lymphocytes # (Manual) PT 19.7 H INR 1.56 H POC ABG pH POC ABG pCO2 POC ABG pO2 Potassium Carbon Dioxide 11 L BUN Creatinine 1.4 H Glucose 268 H POC Glucose Calcium AST 57 H Total Creatine Kinase CK-MB (CK-2) Troponin T NT-Pro-B Natriuret Pep 5346 H Total Protein Albumin 3.6 L HDL Cholesterol 01/15/19 01/15/19 01/15/19 09:56 11:53 17:52 WBC MCV RDW Plt Count Seg Neuts % (Manual) Lymphocytes % (Manual) Seg Neutrophils # Man Lymphocytes # (Manual) PT INR POC ABG pH 7.186 L POC ABG pCO2 46.4 H POC ABG pO2 Potassium Carbon Dioxide BUN Creatinine Glucose POC Glucose Calcium AST Total Creatine Kinase 683 H 1430 H CK-MB (CK-2) 9.5 H 13.5 H Troponin T 0.036 H D NT-Pro-B Natriuret Pep Total Protein Albumin HDL Cholesterol 65 H 01/15/19 01/15/19 01/16/19 18:31 21:46 02:14 WBC MCV RDW Plt Count Seg Neuts % (Manual) Lymphocytes % (Manual) Seg Neutrophils # Man Lymphocytes # (Manual) PT INR POC ABG pH POC ABG pCO2 31.8 L POC ABG pO2 167 H Potassium Carbon Dioxide BUN Creatinine Glucose POC Glucose 134 H 136 H Calcium AST Total Creatine Kinase CK-MB (CK-2) Troponin T NT-Pro-B Natriuret Pep Total Protein Albumin HDL Cholesterol 01/16/19 01/16/19 01/16/19 04:16 04:16 05:05 WBC 11.4 H MCV RDW Plt Count 105 L Seg Neuts % (Manual) 74.0 H Lymphocytes % (Manual) 2.0 L Seg Neutrophils # Man 8.4 H Lymphocytes # (Manual) 0.2 L PT INR POC ABG pH 7.458 H POC ABG pCO2 31.4 L POC ABG pO2 135 H Potassium 3.3 L Carbon Dioxide 21 L D BUN 24 H Creatinine 1.5 H Glucose 141 H POC Glucose Calcium 8.1 L AST 71 H Total Creatine Kinase CK-MB (CK-2) Troponin T NT-Pro-B Natriuret Pep Total Protein 6.2 L Albumin 3.5 L HDL Cholesterol 01/16/19 05:24 WBC MCV RDW Plt Count Seg Neuts % (Manual) Lymphocytes % (Manual) Seg Neutrophils # Man Lymphocytes # (Manual) PT INR POC ABG pH POC ABG pCO2 POC ABG pO2 Potassium Carbon Dioxide BUN Creatinine Glucose POC Glucose 137 H Calcium AST Total Creatine Kinase CK-MB (CK-2) Troponin T NT-Pro-B Natriuret Pep Total Protein Albumin HDL Cholesterol Chest x-ray: image reviewed CT scan - chest: image reviewed (Alveolar infiltrates, right lower lobe infiltrate, no pulmonary nodules) Additional Studies: Echocardiogram reviewed -Moderate global hypokinesis, LVEF 35-40% Moderately depressed LVSF Increased right atrial pressure Moderate pulmonary HTN RVSP 60
[2019-01-16] MEDS ORDERED: TYLENOL ONE (09:37)
[2019-01-16] MEDS: LOVENOX SUB-Q SCH (09:38)
[2019-01-16] MEDS: PEPCID IV SCH (09:38)
[2019-01-16] MEDS: BABY ASPIRIN PO SCH (09:38)
[2019-01-16] MEDS: SODIUM CHLORIDE FLUSH SYRINGE 10 ML IV SCH ×2 (09:42→21:32)
[2019-01-16] MEDS ORDERED: VANCOMYCIN/NS 1 GM/250 ML 1 GM/250 ML BAG IV ONE (10:00)
[2019-01-16] MEDS: KEPPRA 750 MG in D5W 100 ML IV SCH ×2 (10:16→21:21)
[2019-01-16] MEDS: UNASYN/NS 3 GM/100 ML 3 GM/100 ML BAG IV SCH ×2 (10:45→21:33)
--- NOTE | 2019-01-16 10:57 | Progress Note ---
Assessment and Plan 73 y/o female with cardiac history that includes HF, cardiomyopathy, htn and CAD admitted after arrest at home. Echocardiogram pending. Will restart Coreg at low dose d/t tachycardia and elevated BP. Patient has been seen in conjunction with Dr. Tucker, who agrees with assessment and plan. 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 Not opening eyes or following commands, but withdraws from pain. BP and HR elevated. SBT underway. Objective Last Vital Signs Temp 100.4 F H 01/16/19 03:09 Pulse 114 H 01/16/19 10:23 Resp 30 H 01/16/19 10:23 BP 154/90 01/16/19 10:23 Pulse Ox 100 01/16/19 10:23 - Physical Examination Cardiac: Positive: Reg Rate and Rhythm, Regular Rhythm Lungs: Positive: Decreased Breath Sounds, Other (tachypneic) Neuro: Positive: Other (withdraws from pain) - Labs and Meds Cardiac Enzymes 01/15/19 01/15/19 01/16/19 Range/Units 11:53 17:52 04:16 AST 71 H (5-40) units/L CK-MB (CK-2) 9.5 H 13.5 H (0.0-4.0) ng/mL Lipids 01/15/19 Range/Units 17:52 Triglycerides 75 (2-149) mg/dL Cholesterol 149 (50-199) mg/dL HDL Cholesterol 65 H (40-59) mg/dL Cholesterol/HDL Ratio 2.29 % CBC 01/16/19 Range/Units 04:16 WBC 11.4 H (4.5-11.0) K/mm3 RBC 4.00 (3.65-5.03) M/mm3 Hgb 11.6 (10.1-14.3) gm/dl Hct 34.8 (30.3-42.9) % Plt Count 105 L (140-440) K/mm3 Comprehensive Metabolic Panel 01/16/19 Range/Units 04:16 Sodium 141 (137-145) mmol/L Potassium 3.3 L (3.6-5.0) mmol/L Chloride 102.8 (98-107) mmol/L Carbon Dioxide 21 L D (22-30) mmol/L BUN 24 H (7-17) mg/dL Creatinine 1.5 H (0.7-1.2) mg/dL Glucose 141 H (65-100) mg/dL Calcium 8.1 L (8.4-10.2) mg/dL AST 71 H (5-40) units/L ALT 37 (7-56) units/L Alkaline Phosphatase 58 (35-129) units/L Total Protein 6.2 L (6.3-8.2) g/dL Albumin 3.5 L (3.9-5) g/dL - Imaging and Cardiology EKG: image reviewed Echo: report reviewed (LVEF of 50 to 55 percent, a moderately dilated left atrium and right atrium, mild diastolic dysfunction with an impaired relaxation and 09/03/2014: normal LA pressure, mild to moderate TR, mild MR and mildly elevated RV systolic pressure), other - Telemetry EKG Rhythm: Sinus Tachycardia Chamber hypertrophy or enlargement: left ventricular hypertro Repolarization changes or abnormalities: ST or T wave suggestive of ischemia
[2019-01-16] MEDS: COREG PO SCH ×2 (13:37→21:21)
--- NOTE | 2019-01-16 16:37 | Progress Note ---
Subjective Date of service: 01/16/19 Interval history: plan EEG no evidence of neuro recovery as yet Objective - Vital Sign Vital Signs - 12hr 01/16/19 01/16/19 01/16/19 04:45 05:00 05:15 Temperature Pulse Rate 115 H 114 H 116 H Pulse Rate [ Anterior Bilateral Throughout] Pulse Rate [ From Monitor] Respiratory 28 H 27 H 20 Rate Respiratory Rate [Anterior Bilateral Throughout] Blood Pressure 151/87 151/87 146/88 O2 Sat by Pulse 100 99 100 Oximetry 01/16/19 01/16/19 01/16/19 05:30 05:45 06:00 Temperature Pulse Rate 115 H 116 H 118 H Pulse Rate [ Anterior Bilateral Throughout] Pulse Rate [ From Monitor] Respiratory 27 H 29 H 29 H Rate Respiratory Rate [Anterior Bilateral Throughout] Blood Pressure 139/81 139/81 145/86 O2 Sat by Pulse 98 100 98 Oximetry 01/16/19 01/16/19 01/16/19 06:15 06:30 06:45 Temperature Pulse Rate 119 H 119 H 118 H Pulse Rate [ Anterior Bilateral Throughout] Pulse Rate [ From Monitor] Respiratory 31 H 31 H 29 H Rate Respiratory Rate [Anterior Bilateral Throughout] Blood Pressure 145/86 150/86 150/86 O2 Sat by Pulse 100 97 100 Oximetry 01/16/19 01/16/19 01/16/19 07:00 07:15 07:30 Temperature Pulse Rate 118 H 116 H 116 H Pulse Rate [ Anterior Bilateral Throughout] Pulse Rate [ From Monitor] Respiratory 30 H 30 H 28 H Rate Respiratory Rate [Anterior Bilateral Throughout] Blood Pressure 142/82 142/82 149/83 O2 Sat by Pulse 100 97 Oximetry 01/16/19 01/16/19 01/16/19 07:45 07:58 08:00 Temperature 101.2 F H Pulse Rate 116 H 123 H 122 H Pulse Rate [ Anterior Bilateral Throughout] Pulse Rate [ 116 H From Monitor] Respiratory 25 H 30 H Rate Respiratory Rate [Anterior Bilateral Throughout] Blood Pressure 149/83 164/92 165/97 O2 Sat by Pulse 100 100 97 Oximetry 01/16/19 01/16/19 01/16/19 08:07 08:11 08:15 Temperature Pulse Rate 115 H 114 H Pulse Rate [ 116 H Anterior Bilateral Throughout] Pulse Rate [ From Monitor] Respiratory 29 H 19 Rate Respiratory 32 H Rate [Anterior Bilateral Throughout] Blood Pressure 152/84 152/84 O2 Sat by Pulse 100 100 Oximetry 01/16/19 01/16/19 01/16/19 08:22 08:30 08:45 Temperature Pulse Rate 116 H 118 H Pulse Rate [ 116 H Anterior Bilateral Throughout] Pulse Rate [ From Monitor] Respiratory 31 H 33 H Rate Respiratory 27 H Rate [Anterior Bilateral Throughout] Blood Pressure 154/82 154/82 O2 Sat by Pulse 99 100 Oximetry 01/16/19 01/16/19 01/16/19 09:00 09:15 09:30 Temperature Pulse Rate 117 H 115 H 118 H Pulse Rate [ Anterior Bilateral Throughout] Pulse Rate [ From Monitor] Respiratory 31 H 33 H 35 H Rate Respiratory Rate [Anterior Bilateral Throughout] Blood Pressure 154/87 154/87 155/89 O2 Sat by Pulse 97 100 98 Oximetry 01/16/19 01/16/19 01/16/19 09:45 10:00 10:15 Temperature Pulse Rate 115 H 116 H 115 H Pulse Rate [ Anterior Bilateral Throughout] Pulse Rate [ From Monitor] Respiratory 31 H 34 H 33 H Rate Respiratory Rate [Anterior Bilateral Throughout] Blood Pressure 155/89 154/90 154/90 O2 Sat by Pulse 100 99 100 Oximetry 01/16/19 01/16/19 01/16/19 10:23 10:30 10:45 Temperature Pulse Rate 114 H 113 H 111 H Pulse Rate [ Anterior Bilateral Throughout] Pulse Rate [ From Monitor] Respiratory 30 H 32 H 31 H Rate Respiratory Rate [Anterior Bilateral Throughout] Blood Pressure 154/90 148/82 148/82 O2 Sat by Pulse 100 97 100 Oximetry 01/16/19 01/16/19 01/16/19 11:00 11:15 11:30 Temperature Pulse Rate 111 H 110 H 108 H Pulse Rate [ Anterior Bilateral Throughout] Pulse Rate [ From Monitor] Respiratory 29 H 31 H 29 H Rate Respiratory Rate [Anterior Bilateral Throughout] Blood Pressure 145/76 145/76 140/75 O2 Sat by Pulse 97 100 97 Oximetry 01/16/19 01/16/19 01/16/19 11:45 12:00 12:15 Temperature 99.3 F Pulse Rate 107 H 106 H 106 H Pulse Rate [ Anterior Bilateral Throughout] Pulse Rate [ 116 H From Monitor] Respiratory 27 H 28 H 27 H Rate Respiratory Rate [Anterior Bilateral Throughout] Blood Pressure 140/75 140/76 140/76 O2 Sat by Pulse 100 98 100 Oximetry 01/16/19 01/16/19 01/16/19 12:30 12:45 13:00 Temperature Pulse Rate 108 H 109 H 108 H Pulse Rate [ Anterior Bilateral Throughout] Pulse Rate [ From Monitor] Respiratory 28 H 26 H 24 Rate Respiratory Rate [Anterior Bilateral Throughout] Blood Pressure 140/81 140/81 153/87 O2 Sat by Pulse 97 100 99 Oximetry 01/16/19 01/16/19 01/16/19 13:15 13:30 13:45 Temperature Pulse Rate 105 H 105 H 102 H Pulse Rate [ Anterior Bilateral Throughout] Pulse Rate [ From Monitor] Respiratory 24 24 25 H Rate Respiratory Rate [Anterior Bilateral Throughout] Blood Pressure 153/87 129/80 129/80 O2 Sat by Pulse 100 99 100 Oximetry 01/16/19 01/16/19 01/16/19 14:53 14:55 15:06 Temperature Pulse Rate 100 H Pulse Rate [ 104 H 99 H Anterior Bilateral Throughout] Pulse Rate [ From Monitor] Respiratory 24 Rate Respiratory 26 H 23 Rate [Anterior Bilateral Throughout] Blood Pressure 142/77 O2 Sat by Pulse 100 Oximetry - Laboratory Findings CBC and BMP: 01/16/19 04:16 01/16/19 04:16 Abnormal Lab Findings: Abnormal Labs 01/15/19 01/15/19 01/15/19 07:50 07:50 07:50 WBC MCV 99 H RDW 16.7 H Plt Count 122 L Seg Neuts % (Manual) Lymphocytes % (Manual) Seg Neutrophils # Man Lymphocytes # (Manual) PT 19.7 H INR 1.56 H POC ABG pH POC ABG pCO2 POC ABG pO2 Potassium Carbon Dioxide 11 L BUN Creatinine 1.4 H Glucose 268 H POC Glucose Calcium AST 57 H Total Creatine Kinase CK-MB (CK-2) Troponin T NT-Pro-B Natriuret Pep 5346 H Total Protein Albumin 3.6 L HDL Cholesterol 01/15/19 01/15/19 01/15/19 09:56 11:53 17:52 WBC MCV RDW Plt Count Seg Neuts % (Manual) Lymphocytes % (Manual) Seg Neutrophils # Man Lymphocytes # (Manual) PT INR POC ABG pH 7.186 L POC ABG pCO2 46.4 H POC ABG pO2 Potassium Carbon Dioxide BUN Creatinine Glucose POC Glucose Calcium AST Total Creatine Kinase 683 H 1430 H CK-MB (CK-2) 9.5 H 13.5 H Troponin T 0.036 H D NT-Pro-B Natriuret Pep Total Protein Albumin HDL Cholesterol 65 H 01/15/19 01/15/19 01/16/19 18:31 21:46 02:14 WBC MCV RDW Plt Count Seg Neuts % (Manual) Lymphocytes % (Manual) Seg Neutrophils # Man Lymphocytes # (Manual) PT INR POC ABG pH POC ABG pCO2 31.8 L POC ABG pO2 167 H Potassium Carbon Dioxide BUN Creatinine Glucose POC Glucose 134 H 136 H Calcium AST Total Creatine Kinase CK-MB (CK-2) Troponin T NT-Pro-B Natriuret Pep Total Protein Albumin HDL Cholesterol 01/16/19 01/16/19 01/16/19 04:16 04:16 05:05 WBC 11.4 H MCV RDW Plt Count 105 L Seg Neuts % (Manual) 74.0 H Lymphocytes % (Manual) 2.0 L Seg Neutrophils # Man 8.4 H Lymphocytes # (Manual) 0.2 L PT INR POC ABG pH 7.458 H POC ABG pCO2 31.4 L POC ABG pO2 135 H Potassium 3.3 L Carbon Dioxide 21 L D BUN 24 H Creatinine 1.5 H Glucose 141 H POC Glucose Calcium 8.1 L AST 71 H Total Creatine Kinase CK-MB (CK-2) Troponin T NT-Pro-B Natriuret Pep Total Protein 6.2 L Albumin 3.5 L HDL Cholesterol 01/16/19 05:24 WBC MCV RDW Plt Count Seg Neuts % (Manual) Lymphocytes % (Manual) Seg Neutrophils # Man Lymphocytes # (Manual) PT INR POC ABG pH POC ABG pCO2 POC ABG pO2 Potassium Carbon Dioxide BUN Creatinine Glucose POC Glucose 137 H Calcium AST Total Creatine Kinase CK-MB (CK-2) Troponin T NT-Pro-B Natriuret Pep Total Protein Albumin HDL Cholesterol
[2019-01-16] MEDS: TYLENOL PO PRN (20:13)
[2019-01-17] MEDS: DUONEB *Not for PRN Use IH SCH ×4 (02:19→19:06)
[2019-01-17] MEDS: PEPCID IV SCH (09:12)
[2019-01-17] MEDS: COREG PO SCH ×2 (09:12→21:05)
[2019-01-17] MEDS: LOVENOX SUB-Q SCH (09:12)
[2019-01-17] MEDS: UNASYN/NS 3 GM/100 ML 3 GM/100 ML BAG IV SCH ×2 (09:13→21:04)
[2019-01-17] MEDS: SODIUM CHLORIDE FLUSH SYRINGE 10 ML IV SCH ×2 (09:13→21:05)
[2019-01-17] MEDS: BABY ASPIRIN PO SCH (09:13)
[2019-01-17] MEDS: KEPPRA 750 MG in D5W 100 ML IV SCH ×2 (10:12→22:40)
--- NOTE | 2019-01-17 11:21 | Progress Note ---
Assessment and Plan s/p Cardiopulmonary arrest, out of hospital, PEA with ROSC Acute hypoxic-hypercapnic respiratory failure on MVS Acute encephalopathy, metabolic Acute metabolic acidosis Acute renal injury Seizure activity Right lower lobe infiltrate, probably aspiration Pyrexia with leukocytosis Pulmonary HTN RVSP 60 Systolic heart failure EF 35-40% Thrombocytopenia - EEG pending - Continue cardioprotective measures -Gentle diuresis as tolerated by renal function, hemodynamics -Replete electrolytes as tolerated -Currently on Unasyn/Vancomycin, follow cultures and adjust antibiotics for ID/MAMADOU. Deescalate as indicated. Tracheal aspirate, blood cultures are negative to date. If they remain negative, no fevers with stable or improving leukocytosis, plan to discontinue antibiotics and monitor clinically -Continue bronchodilators -Get BMP and CBC in the morning. -Monitor platelet counts and trend -Cooper catheter placed for acute urinary retention. Plan to discontinue cooper in the next 24 hours and monitor -Update grand-daughter, who is the POA. Discussed the possibility of tracheostomy and PEG. -Continue all other care as detailed below -Continue full MVS -Wean supplemental oxygen to keep O2 sats 88-90% -Lung protective strategies -Oxygen restrictive strategies -Daily ABGs/CXR for now -VAP bundle addressed -Monitor renal indices closely -Avoid nephrotoxic agents, adjust all medications for CrCL -Strict intake and output monitoring -Daily SAT & SBT -Sedation target for RASS 0 to -1 -Stress ulcer prophylaxis -VTE prophylaxis, -Tube feedings -Aspiration precautions -Accuchecks with glycemic control. Target glucose of 140-180 mg/dL -Bronchodilators with pulmonary hygiene per RT -Maintenance of sleep -wake cycle -Mobility as tolerated by hemodynamics -Influenza and pneumonia vaccination per protocol ..care plan discussed at length with RN/RT at the bedside ..discussed in ICU-IDT rounds PROGNOSIS: GUARDED CONDITION: CRITICAL CODE STATUS: FULL CODE The high probability of a clinically significant, sudden or life-threatening deterioration of the [respiratory, neurology, renal] system(s) required my full and direct attention, intervention and personal management. The aggregate critical care time was [35] minutes without overlap. Time includes spent on; [x] Data Review and interpretation [x] Patient assessment and monitoring of vital signs [x] Documentation [x] Medication orders and management Subjective Date of service: 01/17/19 Interval history: Patient is seen today for: OOH cardiopulmonary arrest with ROSC; Acute hypoxemic-hypercapnic respiratory failure on MVS; acute encephalopathy; aspiration pneumonia; Seen and examined at bedside; 24-hour events reviewed; nursing and respiratory care staff consulted; no adverse overnight events reported to me; no fevers, no vomiting, diarrhea is improving. C.diff negative. Continues to tolerate PSV trials, remains unresponsive Discussed in ICU-IDT rounds, grand daughter at the bedside, EEG pending Objective - Exam Narrative Exam: Constitutional: no acute distress, other (atraumatic, normocephalic, chronically looking, no patient-ventilator dyssynchrony) Eyes: non-icteric ENT: oropharynx moist, other (ETT at 23cm) Neck: supple, no lymphadenopathy, no JVD Effort: normal Ascultation: Bilateral: diminished breath sounds, rales (bilaterally) Cardiovascular: other (tacycardia, S1,S2, no murmurs, gallops or rubs) Gastrointestinal: normoactive bowel sounds, soft, non-tender, non-distended, other (Cooper catheter in place, FMS in place) Extremities: no cyanosis, no edema Neurologic: unable to assess Psychiatric: other (unable to assess secondary to mental status) Vital Signs - 12hr 01/16/19 01/16/19 01/17/19 23:30 23:45 00:00 Temperature 99.8 F H Pulse Rate 98 H 91 H 89 Pulse Rate [ Anterior Bilateral Throughout] Pulse Rate [ 88 From Monitor] Respiratory 23 20 20 Rate Respiratory Rate [Anterior Bilateral Throughout] Blood Pressure 127/69 127/69 100/60 O2 Sat by Pulse 98 100 99 Oximetry 01/17/19 01/17/19 01/17/19 00:15 00:30 00:45 Temperature Pulse Rate 85 97 H 104 H Pulse Rate [ Anterior Bilateral Throughout] Pulse Rate [ From Monitor] Respiratory 20 25 H 25 H Rate Respiratory Rate [Anterior Bilateral Throughout] Blood Pressure 100/60 111/66 111/66 O2 Sat by Pulse 100 100 Oximetry 01/17/19 01/17/19 01/17/19 01:00 01:15 01:30 Temperature Pulse Rate 91 H 89 86 Pulse Rate [ Anterior Bilateral Throughout] Pulse Rate [ From Monitor] Respiratory 20 20 20 Rate Respiratory Rate [Anterior Bilateral Throughout] Blood Pressure 94/55 94/55 98/55 O2 Sat by Pulse 100 Oximetry 01/17/19 01/17/19 01/17/19 01:45 02:00 02:15 Temperature Pulse Rate 87 88 90 Pulse Rate [ Anterior Bilateral Throughout] Pulse Rate [ From Monitor] Respiratory 20 20 20 Rate Respiratory Rate [Anterior Bilateral Throughout] Blood Pressure 98/55 108/61 108/61 O2 Sat by Pulse 100 100 100 Oximetry 01/17/19 01/17/19 01/17/19 02:19 02:30 02:45 Temperature Pulse Rate 89 89 Pulse Rate [ 100 H 101 H Anterior Bilateral Throughout] Pulse Rate [ From Monitor] Respiratory 20 20 Rate Respiratory 22 23 Rate [Anterior Bilateral Throughout] Blood Pressure 120/65 120/65 O2 Sat by Pulse 100 100 Oximetry 01/17/19 01/17/19 01/17/19 03:00 03:15 03:30 Temperature Pulse Rate 92 H 89 93 H Pulse Rate [ Anterior Bilateral Throughout] Pulse Rate [ From Monitor] Respiratory 21 20 23 Rate Respiratory Rate [Anterior Bilateral Throughout] Blood Pressure 123/66 123/66 124/67 O2 Sat by Pulse 100 100 100 Oximetry 01/17/19 01/17/19 01/17/19 03:45 04:00 04:15 Temperature 99.1 F Pulse Rate 91 H 94 H 111 H Pulse Rate [ Anterior Bilateral Throughout] Pulse Rate [ 90 From Monitor] Respiratory 21 20 28 H Rate Respiratory Rate [Anterior Bilateral Throughout] Blood Pressure 124/67 124/71 124/71 O2 Sat by Pulse 100 100 100 Oximetry 01/17/19 01/17/19 01/17/19 04:23 04:30 04:45 Temperature Pulse Rate 100 H 100 H 114 H Pulse Rate [ Anterior Bilateral Throughout] Pulse Rate [ From Monitor] Respiratory 22 30 H Rate Respiratory Rate [Anterior Bilateral Throughout] Blood Pressure 124/67 132/71 132/71 O2 Sat by Pulse 100 100 Oximetry 01/17/19 01/17/19 01/17/19 05:00 05:15 05:30 Temperature Pulse Rate 101 H 102 H 107 H Pulse Rate [ Anterior Bilateral Throughout] Pulse Rate [ From Monitor] Respiratory 21 24 26 H Rate Respiratory Rate [Anterior Bilateral Throughout] Blood Pressure 132/71 132/71 140/82 O2 Sat by Pulse 100 100 99 Oximetry 01/17/19 01/17/19 01/17/19 05:45 06:00 06:15 Temperature Pulse Rate 103 H 102 H 103 H Pulse Rate [ Anterior Bilateral Throughout] Pulse Rate [ From Monitor] Respiratory 24 23 24 Rate Respiratory Rate [Anterior Bilateral Throughout] Blood Pressure 140/82 133/76 133/76 O2 Sat by Pulse 100 100 Oximetry 01/17/19 01/17/19 01/17/19 06:30 06:45 07:00 Temperature Pulse Rate 106 H 106 H 110 H Pulse Rate [ Anterior Bilateral Throughout] Pulse Rate [ From Monitor] Respiratory 26 H 24 27 H Rate Respiratory Rate [Anterior Bilateral Throughout] Blood Pressure 139/78 139/78 146/84 O2 Sat by Pulse 100 98 Oximetry 01/17/19 01/17/19 01/17/19 07:15 07:30 07:45 Temperature Pulse Rate 109 H 103 H 103 H Pulse Rate [ Anterior Bilateral Throughout] Pulse Rate [ From Monitor] Respiratory 25 H 20 25 H Rate Respiratory Rate [Anterior Bilateral Throughout] Blood Pressure 146/84 130/74 130/74 O2 Sat by Pulse 100 97 Oximetry 01/17/19 01/17/19 01/17/19 08:00 08:23 08:30 Temperature 99.8 F H Pulse Rate 106 H 102 H 101 H Pulse Rate [ Anterior Bilateral Throughout] Pulse Rate [ 106 H From Monitor] Respiratory 23 20 21 Rate Respiratory Rate [Anterior Bilateral Throughout] Blood Pressure 139/77 129/71 O2 Sat by Pulse 95 99 98 Oximetry 01/17/19 01/17/19 01/17/19 08:42 08:50 09:11 Temperature Pulse Rate 105 H Pulse Rate [ 107 H 119 H Anterior Bilateral Throughout] Pulse Rate [ From Monitor] Respiratory Rate Respiratory 30 H 17 Rate [Anterior Bilateral Throughout] Blood Pressure 129/71 O2 Sat by Pulse 99 Oximetry 01/17/19 09:12 Temperature Pulse Rate 116 H Pulse Rate [ Anterior Bilateral Throughout] Pulse Rate [ From Monitor] Respiratory Rate Respiratory Rate [Anterior Bilateral Throughout] Blood Pressure 138/77 O2 Sat by Pulse Oximetry CBC and BMP: 01/16/19 04:16 01/16/19 04:16 ABG, PT/INR, D-dimer: ABG POC ABG pH 7.479 (7.35-7.45) H 01/17/19 04:23 POC ABG pCO2 30.0 (35-45) L 01/17/19 04:23 POC ABG pO2 141 (80-105) H 01/17/19 04:23 POC ABG HCO3 22.2 (22-26 mml/L) 01/17/19 04:23 POC ABG Total CO2 23 (23-27mmol/L) 01/17/19 04:23 POC ABG O2 Sat 99 01/17/19 04:23 PT/INR, D-dimer PT 19.7 Sec. (12.2-14.9) H 01/15/19 07:50 INR 1.56 (0.87-1.13) H 01/15/19 07:50 Abnormal lab findings: Abnormal Labs 01/15/19 01/15/19 01/15/19 07:50 07:50 07:50 WBC MCV 99 H RDW 16.7 H Plt Count 122 L Seg Neuts % (Manual) Lymphocytes % (Manual) Seg Neutrophils # Man Lymphocytes # (Manual) PT 19.7 H INR 1.56 H POC ABG pH POC ABG pCO2 POC ABG pO2 Potassium Carbon Dioxide 11 L BUN Creatinine 1.4 H Glucose 268 H POC Glucose Calcium AST 57 H Total Creatine Kinase CK-MB (CK-2) Troponin T NT-Pro-B Natriuret Pep 5346 H Total Protein Albumin 3.6 L HDL Cholesterol 01/15/19 01/15/19 01/15/19 09:56 11:53 17:52 WBC MCV RDW Plt Count Seg Neuts % (Manual) Lymphocytes % (Manual) Seg Neutrophils # Man Lymphocytes # (Manual) PT INR POC ABG pH 7.186 L POC ABG pCO2 46.4 H POC ABG pO2 Potassium Carbon Dioxide BUN Creatinine Glucose POC Glucose Calcium AST Total Creatine Kinase 683 H 1430 H CK-MB (CK-2) 9.5 H 13.5 H Troponin T 0.036 H D NT-Pro-B Natriuret Pep Total Protein Albumin HDL Cholesterol 65 H 01/15/19 01/15/19 01/16/19 18:31 21:46 02:14 WBC MCV RDW Plt Count Seg Neuts % (Manual) Lymphocytes % (Manual) Seg Neutrophils # Man Lymphocytes # (Manual) PT INR POC ABG pH POC ABG pCO2 31.8 L POC ABG pO2 167 H Potassium Carbon Dioxide BUN Creatinine Glucose POC Glucose 134 H 136 H Calcium AST Total Creatine Kinase CK-MB (CK-2) Troponin T NT-Pro-B Natriuret Pep Total Protein Albumin HDL Cholesterol 01/16/19 01/16/19 01/16/19 04:16 04:16 05:05 WBC 11.4 H MCV RDW Plt Count 105 L Seg Neuts % (Manual) 74.0 H Lymphocytes % (Manual) 2.0 L Seg Neutrophils # Man 8.4 H Lymphocytes # (Manual) 0.2 L PT INR POC ABG pH 7.458 H POC ABG pCO2 31.4 L POC ABG pO2 135 H Potassium 3.3 L Carbon Dioxide 21 L D BUN 24 H Creatinine 1.5 H Glucose 141 H POC Glucose Calcium 8.1 L AST 71 H Total Creatine Kinase CK-MB (CK-2) Troponin T NT-Pro-B Natriuret Pep Total Protein 6.2 L Albumin 3.5 L HDL Cholesterol 01/16/19 01/16/19 01/16/19 05:24 13:42 21:08 WBC MCV RDW Plt Count Seg Neuts % (Manual) Lymphocytes % (Manual) Seg Neutrophils # Man Lymphocytes # (Manual) PT INR POC ABG pH POC ABG pCO2 POC ABG pO2 Potassium Carbon Dioxide BUN Creatinine Glucose POC Glucose 137 H 129 H 122 H Calcium AST Total Creatine Kinase CK-MB (CK-2) Troponin T NT-Pro-B Natriuret Pep Total Protein Albumin HDL Cholesterol 01/17/19 01/17/19 01/17/19 02:18 04:23 05:13 WBC MCV RDW Plt Count Seg Neuts % (Manual) Lymphocytes % (Manual) Seg Neutrophils # Man Lymphocytes # (Manual) PT INR POC ABG pH 7.479 H POC ABG pCO2 30.0 L POC ABG pO2 141 H Potassium Carbon Dioxide BUN Creatinine Glucose POC Glucose 139 H 128 H Calcium AST Total Creatine Kinase CK-MB (CK-2) Troponin T NT-Pro-B Natriuret Pep Total Protein Albumin HDL Cholesterol 01/17/19 10:22 WBC MCV RDW Plt Count Seg Neuts % (Manual) Lymphocytes % (Manual) Seg Neutrophils # Man Lymphocytes # (Manual) PT INR POC ABG pH POC ABG pCO2 POC ABG pO2 Potassium Carbon Dioxide BUN Creatinine Glucose POC Glucose 133 H Calcium AST Total Creatine Kinase CK-MB (CK-2) Troponin T NT-Pro-B Natriuret Pep Total Protein Albumin HDL Cholesterol
--- NOTE | 2019-01-17 11:43 | Progress Note ---
Assessment and Plan Patient remains critically ill and neurologically unresponsive. Awaiting EEG per neurology. Continue current cardiac management. HR and BP improved with addition of low-dose Coreg. Echo on 01/15/19: moderate global hypokinesis of LV, EF 35-40%, impaired LV diastolic filling, moderate MR and TR, moderate pulm htn. Patient was seen in conjunction with Dr. Mercado, who agrees with assessment and plan. 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 Objective Last Vital Signs Temp 99.8 F H 01/17/19 08:00 Pulse 100 H 01/17/19 11:39 Resp 29 H 01/17/19 11:39 BP 123/72 01/17/19 11:39 Pulse Ox 99 01/17/19 11:39 - Physical Examination Narrative exam: Patient intubated and unresponsive. She is tachypneic, but ventilator is on pressure support at this this time. HR and BP improved since addition of low- dose Coreg. Cardiac: Positive: Regular Rhythm Lungs: Positive: Ventilated Respirations, Other (Coarse. Tachypneic) Neuro: Positive: Other (withdraws from pain) - Imaging and Cardiology EKG: image reviewed Echo: report reviewed (moderate global hypokinesis of LV, EF 35-40%, impaired LV diastolic filling, moderate MR and TR, moderate pulm htn.), other Chamber hypertrophy or enlargement: left ventricular hypertro Repolarization changes or abnormalities: ST or T wave suggestive of ischemia
[2019-01-17] MEDS: TYLENOL PO PRN (12:17)
--- NOTE | 2019-01-17 16:08 | Progress Note ---
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 Obtain stool cdiff, stool culture History of stroke in 1982 Full code status Discussed with family at bedside. Prognosis guarded Subjective Date of service: 01/16/19 Principal diagnosis: cardiac arrest Interval history: Same condition Intubated Objective - Constitutional Vitals: Vital Signs - 12hr 01/17/19 01/17/19 01/17/19 04:15 04:23 04:30 Temperature Pulse Rate 111 H 100 H 100 H Pulse Rate [ Anterior Bilateral Throughout] Pulse Rate [ From Monitor] Respiratory 28 H 22 Rate Respiratory Rate [Anterior Bilateral Throughout] Blood Pressure 124/71 124/67 132/71 O2 Sat by Pulse 100 100 Oximetry 01/17/19 01/17/19 01/17/19 04:45 05:00 05:15 Temperature Pulse Rate 114 H 101 H 102 H Pulse Rate [ Anterior Bilateral Throughout] Pulse Rate [ From Monitor] Respiratory 30 H 21 24 Rate Respiratory Rate [Anterior Bilateral Throughout] Blood Pressure 132/71 132/71 132/71 O2 Sat by Pulse 100 100 100 Oximetry 01/17/19 01/17/19 01/17/19 05:30 05:45 06:00 Temperature Pulse Rate 107 H 103 H 102 H Pulse Rate [ Anterior Bilateral Throughout] Pulse Rate [ From Monitor] Respiratory 26 H 24 23 Rate Respiratory Rate [Anterior Bilateral Throughout] Blood Pressure 140/82 140/82 133/76 O2 Sat by Pulse 99 100 Oximetry 01/17/19 01/17/19 01/17/19 06:15 06:30 06:45 Temperature Pulse Rate 103 H 106 H 106 H Pulse Rate [ Anterior Bilateral Throughout] Pulse Rate [ From Monitor] Respiratory 24 26 H 24 Rate Respiratory Rate [Anterior Bilateral Throughout] Blood Pressure 133/76 139/78 139/78 O2 Sat by Pulse 100 100 Oximetry 01/17/19 01/17/19 01/17/19 07:00 07:15 07:18 Temperature Pulse Rate 110 H 109 H 110 H Pulse Rate [ Anterior Bilateral Throughout] Pulse Rate [ From Monitor] Respiratory 27 H 25 H Rate Respiratory Rate [Anterior Bilateral Throughout] Blood Pressure 146/84 146/84 O2 Sat by Pulse 98 100 Oximetry 01/17/19 01/17/19 01/17/19 07:30 07:45 08:00 Temperature 99.8 F H Pulse Rate 103 H 103 H 106 H Pulse Rate [ Anterior Bilateral Throughout] Pulse Rate [ 106 H From Monitor] Respiratory 20 25 H 23 Rate Respiratory Rate [Anterior Bilateral Throughout] Blood Pressure 130/74 130/74 139/77 O2 Sat by Pulse 97 95 Oximetry 01/17/19 01/17/19 01/17/19 08:23 08:30 08:42 Temperature Pulse Rate 102 H 101 H 105 H Pulse Rate [ Anterior Bilateral Throughout] Pulse Rate [ From Monitor] Respiratory 20 21 Rate Respiratory Rate [Anterior Bilateral Throughout] Blood Pressure 129/71 129/71 O2 Sat by Pulse 99 98 99 Oximetry 01/17/19 01/17/19 01/17/19 08:45 08:50 09:00 Temperature Pulse Rate 104 H 103 H Pulse Rate [ 107 H Anterior Bilateral Throughout] Pulse Rate [ From Monitor] Respiratory 25 H 27 H Rate Respiratory 30 H Rate [Anterior Bilateral Throughout] Blood Pressure 139/77 138/77 O2 Sat by Pulse 99 99 Oximetry 01/17/19 01/17/19 01/17/19 09:11 09:12 09:15 Temperature Pulse Rate 116 H 109 H Pulse Rate [ 119 H Anterior Bilateral Throughout] Pulse Rate [ From Monitor] Respiratory 31 H Rate Respiratory 17 Rate [Anterior Bilateral Throughout] Blood Pressure 138/77 138/77 O2 Sat by Pulse 100 Oximetry 01/17/19 01/17/19 01/17/19 09:30 09:45 10:00 Temperature Pulse Rate 110 H 107 H 114 H Pulse Rate [ Anterior Bilateral Throughout] Pulse Rate [ From Monitor] Respiratory 31 H 29 H 25 H Rate Respiratory Rate [Anterior Bilateral Throughout] Blood Pressure 143/80 143/80 144/79 O2 Sat by Pulse 97 100 95 Oximetry 01/17/19 01/17/19 01/17/19 10:15 10:30 10:45 Temperature Pulse Rate 105 H 109 H 106 H Pulse Rate [ Anterior Bilateral Throughout] Pulse Rate [ From Monitor] Respiratory 32 H 35 H 33 H Rate Respiratory Rate [Anterior Bilateral Throughout] Blood Pressure 144/79 138/77 144/79 O2 Sat by Pulse 98 96 99 Oximetry 01/17/19 01/17/19 01/17/19 11:00 11:15 11:30 Temperature Pulse Rate 102 H 110 H 107 H Pulse Rate [ Anterior Bilateral Throughout] Pulse Rate [ From Monitor] Respiratory 32 H 36 H 33 H Rate Respiratory Rate [Anterior Bilateral Throughout] Blood Pressure 127/67 127/67 123/72 O2 Sat by Pulse 96 99 97 Oximetry 01/17/19 01/17/19 01/17/19 11:39 11:45 12:00 Temperature 101.5 F H Pulse Rate 100 H 100 H 102 H Pulse Rate [ Anterior Bilateral Throughout] Pulse Rate [ From Monitor] Respiratory 29 H 33 H 34 H Rate Respiratory Rate [Anterior Bilateral Throughout] Blood Pressure 123/72 127/67 120/78 O2 Sat by Pulse 99 99 99 Oximetry 01/17/19 01/17/19 14:00 14:18 Temperature Pulse Rate Pulse Rate [ 82 82 Anterior Bilateral Throughout] Pulse Rate [ From Monitor] Respiratory Rate Respiratory 25 H 26 H Rate [Anterior Bilateral Throughout] Blood Pressure O2 Sat by Pulse Oximetry General appearance: Present: no acute distress, well-nourished - EENT Eyes: PERRL, EOM intact ENT: hearing intact, clear oral mucosa Ears: bilateral: normal - Neck Neck: supple, normal ROM - Respiratory Respiratory effort: normal Respiratory: bilateral: CTA - Breasts Breasts: normal - Cardiovascular Heart rate: 78 Rhythm: regular Heart Sounds: Present: S1 & S2. Absent: gallop, rub Extremities: no ischemia, pulses intact, No edema, normal color, Full ROM - Gastrointestinal General gastrointestinal: Present: soft, non-tender, non-distended, normal bowel sounds - Genitourinary Female genitourinary: normal - Integumentary Integumentary: clear, warm, dry - Musculoskeletal Musculoskeletal: strength equal bilaterally, generalized weakness - Neurologic Neurologic: other (intubated) - Psychiatric Psychiatric: other (Intubated) - Allied health notes Allied health notes reviewed: nursing, case management - Labs CBC & Chem 7: 01/16/19 04:16 01/16/19 04:16 Labs: Abnormal lab results 01/16/19 01/16/19 01/17/19 Range/Units 13:42 21:08 02:18 POC ABG pH (7.35-7.45) POC ABG pCO2 (35-45) POC ABG pO2 (80-105) POC Glucose 129 H 122 H 139 H (70-105) 01/17/19 01/17/19 01/17/19 Range/Units 04:23 05:13 10:22 POC ABG pH 7.479 H (7.35-7.45) POC ABG pCO2 30.0 L (35-45) POC ABG pO2 141 H (80-105) POC Glucose 128 H 133 H (70-105) 01/17/19 Range/Units 15:59 POC ABG pH (7.35-7.45) POC ABG pCO2 (35-45) POC ABG pO2 (80-105) POC Glucose 121 H (70-105)
--- NOTE | 2019-01-17 16:15 | Progress Note ---
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 Prognosis guarded Subjective Date of service: 01/17/19 Principal diagnosis: cardiac arrest Interval history: Same condition Intubated Afebrile Cardiac arrest at home--s/p revival Unresponsive Objective - Constitutional Vitals: Vital Signs - 12hr 01/17/19 01/17/19 01/17/19 04:15 04:23 04:30 Temperature Pulse Rate 111 H 100 H 100 H Pulse Rate [ Anterior Bilateral Throughout] Pulse Rate [ From Monitor] Respiratory 28 H 22 Rate Respiratory Rate [Anterior Bilateral Throughout] Blood Pressure 124/71 124/67 132/71 O2 Sat by Pulse 100 100 Oximetry 01/17/19 01/17/19 01/17/19 04:45 05:00 05:15 Temperature Pulse Rate 114 H 101 H 102 H Pulse Rate [ Anterior Bilateral Throughout] Pulse Rate [ From Monitor] Respiratory 30 H 21 24 Rate Respiratory Rate [Anterior Bilateral Throughout] Blood Pressure 132/71 132/71 132/71 O2 Sat by Pulse 100 100 100 Oximetry 01/17/19 01/17/19 01/17/19 05:30 05:45 06:00 Temperature Pulse Rate 107 H 103 H 102 H Pulse Rate [ Anterior Bilateral Throughout] Pulse Rate [ From Monitor] Respiratory 26 H 24 23 Rate Respiratory Rate [Anterior Bilateral Throughout] Blood Pressure 140/82 140/82 133/76 O2 Sat by Pulse 99 100 Oximetry 01/17/19 01/17/19 01/17/19 06:15 06:30 06:45 Temperature Pulse Rate 103 H 106 H 106 H Pulse Rate [ Anterior Bilateral Throughout] Pulse Rate [ From Monitor] Respiratory 24 26 H 24 Rate Respiratory Rate [Anterior Bilateral Throughout] Blood Pressure 133/76 139/78 139/78 O2 Sat by Pulse 100 100 Oximetry 01/17/19 01/17/19 01/17/19 07:00 07:15 07:18 Temperature Pulse Rate 110 H 109 H 110 H Pulse Rate [ Anterior Bilateral Throughout] Pulse Rate [ From Monitor] Respiratory 27 H 25 H Rate Respiratory Rate [Anterior Bilateral Throughout] Blood Pressure 146/84 146/84 O2 Sat by Pulse 98 100 Oximetry 01/17/19 01/17/19 01/17/19 07:30 07:45 08:00 Temperature 99.8 F H Pulse Rate 103 H 103 H 106 H Pulse Rate [ Anterior Bilateral Throughout] Pulse Rate [ 106 H From Monitor] Respiratory 20 25 H 23 Rate Respiratory Rate [Anterior Bilateral Throughout] Blood Pressure 130/74 130/74 139/77 O2 Sat by Pulse 97 95 Oximetry 01/17/19 01/17/19 01/17/19 08:23 08:30 08:42 Temperature Pulse Rate 102 H 101 H 105 H Pulse Rate [ Anterior Bilateral Throughout] Pulse Rate [ From Monitor] Respiratory 20 21 Rate Respiratory Rate [Anterior Bilateral Throughout] Blood Pressure 129/71 129/71 O2 Sat by Pulse 99 98 99 Oximetry 01/17/19 01/17/19 01/17/19 08:45 08:50 09:00 Temperature Pulse Rate 104 H 103 H Pulse Rate [ 107 H Anterior Bilateral Throughout] Pulse Rate [ From Monitor] Respiratory 25 H 27 H Rate Respiratory 30 H Rate [Anterior Bilateral Throughout] Blood Pressure 139/77 138/77 O2 Sat by Pulse 99 99 Oximetry 01/17/19 01/17/19 01/17/19 09:11 09:12 09:15 Temperature Pulse Rate 116 H 109 H Pulse Rate [ 119 H Anterior Bilateral Throughout] Pulse Rate [ From Monitor] Respiratory 31 H Rate Respiratory 17 Rate [Anterior Bilateral Throughout] Blood Pressure 138/77 138/77 O2 Sat by Pulse 100 Oximetry 01/17/19 01/17/19 01/17/19 09:30 09:45 10:00 Temperature Pulse Rate 110 H 107 H 114 H Pulse Rate [ Anterior Bilateral Throughout] Pulse Rate [ From Monitor] Respiratory 31 H 29 H 25 H Rate Respiratory Rate [Anterior Bilateral Throughout] Blood Pressure 143/80 143/80 144/79 O2 Sat by Pulse 97 100 95 Oximetry 01/17/19 01/17/19 01/17/19 10:15 10:30 10:45 Temperature Pulse Rate 105 H 109 H 106 H Pulse Rate [ Anterior Bilateral Throughout] Pulse Rate [ From Monitor] Respiratory 32 H 35 H 33 H Rate Respiratory Rate [Anterior Bilateral Throughout] Blood Pressure 144/79 138/77 144/79 O2 Sat by Pulse 98 96 99 Oximetry 01/17/19 01/17/19 01/17/19 11:00 11:15 11:30 Temperature Pulse Rate 102 H 110 H 107 H Pulse Rate [ Anterior Bilateral Throughout] Pulse Rate [ From Monitor] Respiratory 32 H 36 H 33 H Rate Respiratory Rate [Anterior Bilateral Throughout] Blood Pressure 127/67 127/67 123/72 O2 Sat by Pulse 96 99 97 Oximetry 01/17/19 01/17/19 01/17/19 11:39 11:45 12:00 Temperature 101.5 F H Pulse Rate 100 H 100 H 102 H Pulse Rate [ Anterior Bilateral Throughout] Pulse Rate [ From Monitor] Respiratory 29 H 33 H 34 H Rate Respiratory Rate [Anterior Bilateral Throughout] Blood Pressure 123/72 127/67 120/78 O2 Sat by Pulse 99 99 99 Oximetry 01/17/19 01/17/19 01/17/19 14:00 14:18 16:00 Temperature 99.6 F Pulse Rate Pulse Rate [ 82 82 Anterior Bilateral Throughout] Pulse Rate [ From Monitor] Respiratory Rate Respiratory 25 H 26 H Rate [Anterior Bilateral Throughout] Blood Pressure O2 Sat by Pulse Oximetry General appearance: Present: well-nourished, other (intubated) - EENT ENT: clear oral mucosa, other (Intubated) Ears: bilateral: normal - Neck Neck: supple, normal ROM - Respiratory Respiratory effort: normal Respiratory: bilateral: CTA - Breasts Breasts: deferred - Cardiovascular Heart rate: 78 Rhythm: regular Heart Sounds: Present: S1 & S2. Absent: gallop, rub Extremities: pulses intact, No edema, normal color, Full ROM - Gastrointestinal General gastrointestinal: Present: soft, non-tender, non-distended, normal bowel sounds - Genitourinary Female genitourinary: normal - Integumentary Integumentary: clear, warm, dry - Musculoskeletal Musculoskeletal: generalized weakness - Neurologic Neurologic: other (Intubated) - Labs CBC & Chem 7: 01/16/19 04:16 01/16/19 04:16 Labs: Abnormal lab results 01/16/19 01/16/19 01/17/19 Range/Units 13:42 21:08 02:18 POC ABG pH (7.35-7.45) POC ABG pCO2 (35-45) POC ABG pO2 (80-105) POC Glucose 129 H 122 H 139 H (70-105) 01/17/19 01/17/19 01/17/19 Range/Units 04:23 05:13 10:22 POC ABG pH 7.479 H (7.35-7.45) POC ABG pCO2 30.0 L (35-45) POC ABG pO2 141 H (80-105) POC Glucose 128 H 133 H (70-105) 01/17/19 Range/Units 15:59 POC ABG pH (7.35-7.45) POC ABG pCO2 (35-45) POC ABG pO2 (80-105) POC Glucose 121 H (70-105)
[2019-01-18] MEDS: DUONEB *Not for PRN Use IH SCH ×4 (01:12→19:50)
[2019-01-18 04:55] LABS: Basophils % (Auto) 0.2 % (0.0-1.8); Eosinophils % (Auto) 0.1 % (0.0-4.3); Hemoglobin 9.6 gm/dl (10.1-14.3); Lymphocytes # (Auto) 0.5 K/mm3 (1.2-5.4); Mean Corpuscular HGB Conc 34 % (30-34); Mean Corpuscular Volume 88 fl (79-97); Monocytes # (Auto) 0.4 K/mm3 (0.0-0.8); Monocytes % (Auto) 4.5 % (0.0-7.3); Red Blood Count 3.27 M/mm3 (3.65-5.03); Red Cell Distribution Width 14.8 % (13.2-15.2)
[2019-01-18 05:16] LABS: Calcium 8.5 mg/dL (8.4-10.2)
[2019-01-18 05:20] LABS: Calcium 8.4 mg/dL (8.4-10.2)
[2019-01-18 05:33] LABS: Hematocrit 29.9 % (30.3-42.9); Platelet Count 79 K/mm3 (140-440)
[2019-01-18] MEDS: LASIX IV SCH ×2 (06:07→21:24)
--- NOTE | 2019-01-18 09:10 | XRay Report ---
Single chest: Compared to 01/15/19. History: Acute occipital respiratory failure. Findings: Borderline cardiomegaly. Stable support system. Tip of feeding tube in fundus of the stomach. No consolidation or pleural effusion. Impression: No acute cardiopulmonary findings.
[2019-01-18] MEDS: COREG PO SCH ×2 (10:06→21:23)
[2019-01-18] MEDS: BABY ASPIRIN PO SCH (10:06)
[2019-01-18] MEDS: KEPPRA PO SCH ×2 (10:06→21:23)
[2019-01-18] MEDS: SODIUM CHLORIDE FLUSH SYRINGE 10 ML IV SCH ×2 (10:07→21:25)
[2019-01-18] MEDS: PEPCID IV SCH (10:07)
[2019-01-18] MEDS: UNASYN/NS 3 GM/100 ML 3 GM/100 ML BAG IV SCH ×2 (10:07→21:23)
--- NOTE | 2019-01-18 10:24 | Progress Note ---
Assessment and Plan EEG yesterday showed minimal brain activity. Await neuro recs. Continue current cardiac management. The patient has been seen in conjunction with Dr. Mercado who agrees with assessment and plan of care. - Patient Problems (1) Cardiac arrest Current Visit: Yes Status: Acute (2) Respiratory arrest Current Visit: Yes Status: Acute (3) Altered mental status Current Visit: Yes Status: Acute (4) CHF (congestive heart failure) Current Visit: Yes Status: Acute (5) Cardiomyopathy Current Visit: Yes Status: Chronic (6) CKD (chronic kidney disease) Current Visit: Yes Status: Chronic (7) Elevated troponin Current Visit: Yes Status: Acute (8) CAD S/P percutaneous coronary angioplasty Current Visit: Yes Status: Chronic (9) Stroke Current Visit: No Status: Chronic (10) COPD (chronic obstructive pulmonary disease) with emphysema Current Visit: Yes Status: Acute (11) Gout Current Visit: No Status: Chronic Subjective Date of service: 01/18/19 Principal diagnosis: cardiac arrest Interval history: pt remains intubated, non responsive. in SR on tele. Objective Last Vital Signs Temp 98.0 F 01/18/19 08:45 Pulse 89 01/18/19 10:06 Resp 21 01/18/19 09:00 BP 126/66 01/18/19 10:06 Pulse Ox 100 01/18/19 09:00 - Physical Examination General: Other (intubated, unresponsive) Cardiac: Positive: Reg Rate and Rhythm, S1/S2 Lungs: Positive: Decreased Breath Sounds, Ventilated Respirations Neuro: Positive: Other (withdraws from pain) Extremities: Absent: edema - Labs and Meds Cardiac Enzymes 01/18/19 Range/Units 04:21 AST 120 H (5-40) units/L CBC 01/18/19 Range/Units 04:21 WBC 9.1 (4.5-11.0) K/mm3 RBC 3.27 L (3.65-5.03) M/mm3 Hgb 9.6 L (10.1-14.3) gm/dl Hct 29.9 L (30.3-42.9) % Plt Count 79 L (140-440) K/mm3 Lymph # 0.5 L (1.2-5.4) K/mm3 [place] # 0.4 (0.0-0.8) K/mm3 Eos # 0.0 (0.0-0.4) K/mm3 Baso # 0.0 (0.0-0.1) K/mm3 Comprehensive Metabolic Panel 01/18/19 01/18/19 Range/Units 04:21 04:21 Sodium 139 139 (137-145) mmol/L Potassium 3.9 3.9 (3.6-5.0) mmol/L Chloride 102.5 102.9 (98-107) mmol/L Carbon Dioxide 23 22 (22-30) mmol/L BUN 28 H 28 H (7-17) mg/dL Creatinine 1.3 H 1.3 H (0.7-1.2) mg/dL Glucose 129 H 128 H (65-100) mg/dL Calcium 8.4 8.5 (8.4-10.2) mg/dL AST 120 H (5-40) units/L ALT 24 (7-56) units/L Alkaline Phosphatase 48 (35-129) units/L Total Protein 5.1 L (6.3-8.2) g/dL Albumin 3.0 L (3.9-5) g/dL - Imaging and Cardiology EKG: image reviewed Echo: report reviewed (moderate global hypokinesis of LV, EF 35-40%, impaired LV diastolic filling, moderate MR and TR, moderate pulm htn.), other - Telemetry EKG Rhythm: Sinus Rhythm Chamber hypertrophy or enlargement: left ventricular hypertro Repolarization changes or abnormalities: ST or T wave suggestive of ischemia
--- NOTE | 2019-01-18 11:28 | Progress Note ---
Assessment and Plan s/p Cardiopulmonary arrest, out of hospital, PEA with ROSC Acute hypoxic-hypercapnic respiratory failure on MVS Acute encephalopathy, metabolic Acute metabolic acidosis Acute renal injury Seizure activity Right lower lobe infiltrate, probably aspiration Pyrexia with leukocytosis Pulmonary HTN RVSP 60 Systolic heart failure EF 35-40% Thrombocytopenia (AMS is rate limiting step to safe extubation at this point) - will observe over next few days and if no improvement i have discussed a tracheostomy with next of kin - discontinue lovenox re: thrombocytopenia - send HIT assay - begin Arixtra and follow platelet count - continue ID - reduce set rate to 12/min on MVS - get ABG at 9pm tonight if still on PSV trial - EEG reading pending - Gentle diuresis but change to po lasix at same dose - continue alex SAT's & SBT's - sedation target for RASS 0 to -1 - continue GO & VTE prophylaxis - Bronchodilators with pulmonary hygiene per RT - continue to wean supplemental oxygen to keep O2 sats 88-90% - Lung protective strategies - Oxygen restrictive strategies - Daily ABGs/CXR for now - VAP bundle addressed - Continue cardioprotective measures - Replete electrolytes as indicated - Currently on Unasyn/Vancomycin, follow cultures and adjust antibiotics for ID/MAMADOU (Deescalate as indicated) - Tracheal aspirate, blood cultures are negative to date - Continue bronchodilators with pulmonary hygiene per RT - Cooper catheter placed for acute urinary retention. Plan to discontinue cooper in the next 24 hours and monitor - Update grand-daughter, who is the POA. Discussed the possibility of tracheostomy and PEG. - Continue full MVS - Monitor renal indices closely - Avoid nephrotoxic agents, adjust all medications for CrCL - Strict intake and output monitoring - Tube feedings - Aspiration precautions - Accuchecks with glycemic control. Target glucose of 140-180 mg/dL - Maintenance of sleep -wake cycle - Mobility as tolerated by hemodynamics - Influenza and pneumonia vaccination per protocol ..care plan discussed at length with RN/RT at the bedside ..discussed in ICU-IDT rounds PROGNOSIS: GUARDED CONDITION: CRITICAL CODE STATUS: FULL CODE The high probability of a clinically significant, sudden or life-threatening deterioration of the [respiratory, neurology, renal] system(s) required my full and direct attention, intervention and personal management. The aggregate critical care time was [35] minutes without overlap. Time includes spent on; [x] Data Review and interpretation [x] Patient assessment and monitoring of vital signs [x] Documentation [x] Medication orders and management Subjective Date of service: 01/18/19 Principal diagnosis: OOH cardiac arrest; Acute hypoxemic-hypercapnic Resp f ailure; PNA Interval history: Patient is seen today for: OOH cardiopulmonary arrest with ROSC; Acute hypoxemic-hypercapnic respiratory failure on MVS; acute encephalopathy; aspiration pneumonia; Seen and examined at bedside; 24hour events reviewed; nursing and respiratory care staff consulted; no adverse overnight events reported to me; remains on MVS; tolerating SBT well however AMS precludes safe extubation; granddaughter in room; no seizures; no emesis or overt aspiration Objective Vital Signs - 12hr 01/17/19 01/17/19 01/18/19 23:30 23:45 00:00 Temperature 99.1 F Pulse Rate 105 H 100 H 98 H Pulse Rate [ Anterior Bilateral Throughout] Pulse Rate [ 90 From Monitor] Respiratory 27 H 26 H 26 H Rate Respiratory Rate [Anterior Bilateral Throughout] Blood Pressure 143/81 143/81 137/77 O2 Sat by Pulse 100 99 Oximetry 01/18/19 01/18/19 01/18/19 00:15 00:30 00:45 Temperature Pulse Rate 93 H 89 88 Pulse Rate [ Anterior Bilateral Throughout] Pulse Rate [ From Monitor] Respiratory 24 24 24 Rate Respiratory Rate [Anterior Bilateral Throughout] Blood Pressure 137/77 135/70 137/77 O2 Sat by Pulse 100 100 100 Oximetry 01/18/19 01/18/19 01/18/19 01:00 01:14 01:15 Temperature Pulse Rate 88 94 H Pulse Rate [ 87 Anterior Bilateral Throughout] Pulse Rate [ From Monitor] Respiratory 24 23 Rate Respiratory 25 H Rate [Anterior Bilateral Throughout] Blood Pressure 131/71 131/71 O2 Sat by Pulse 100 100 Oximetry 01/18/19 01/18/19 01/18/19 01:25 01:30 01:45 Temperature Pulse Rate 82 84 Pulse Rate [ 88 Anterior Bilateral Throughout] Pulse Rate [ From Monitor] Respiratory 23 24 Rate Respiratory 25 H Rate [Anterior Bilateral Throughout] Blood Pressure 129/67 129/67 O2 Sat by Pulse 100 100 Oximetry 01/18/19 01/18/19 01/18/19 02:00 02:15 02:30 Temperature Pulse Rate 97 H 86 88 Pulse Rate [ Anterior Bilateral Throughout] Pulse Rate [ From Monitor] Respiratory 25 H 23 25 H Rate Respiratory Rate [Anterior Bilateral Throughout] Blood Pressure 137/73 137/73 130/71 O2 Sat by Pulse 100 99 Oximetry 01/18/19 01/18/19 01/18/19 02:45 03:00 03:15 Temperature Pulse Rate 90 88 87 Pulse Rate [ Anterior Bilateral Throughout] Pulse Rate [ From Monitor] Respiratory 24 24 25 H Rate Respiratory Rate [Anterior Bilateral Throughout] Blood Pressure 130/71 132/70 132/70 O2 Sat by Pulse 100 99 100 Oximetry 01/18/19 01/18/19 01/18/19 03:30 03:44 03:45 Temperature Pulse Rate 87 88 91 H Pulse Rate [ Anterior Bilateral Throughout] Pulse Rate [ From Monitor] Respiratory 25 H 26 H Rate Respiratory Rate [Anterior Bilateral Throughout] Blood Pressure 131/70 131/70 132/70 O2 Sat by Pulse 99 100 100 Oximetry 01/18/19 01/18/19 01/18/19 04:00 04:15 04:30 Temperature 100.2 F H Pulse Rate 86 86 87 Pulse Rate [ Anterior Bilateral Throughout] Pulse Rate [ 85 From Monitor] Respiratory 25 H 22 23 Rate Respiratory Rate [Anterior Bilateral Throughout] Blood Pressure 129/65 129/65 130/64 O2 Sat by Pulse 98 100 97 Oximetry 01/18/19 01/18/19 01/18/19 04:45 05:00 05:15 Temperature Pulse Rate 84 83 84 Pulse Rate [ Anterior Bilateral Throughout] Pulse Rate [ From Monitor] Respiratory 22 22 22 Rate Respiratory Rate [Anterior Bilateral Throughout] Blood Pressure 130/64 133/65 133/65 O2 Sat by Pulse 100 98 100 Oximetry 01/18/19 01/18/19 01/18/19 05:30 05:45 06:00 Temperature Pulse Rate 87 85 86 Pulse Rate [ Anterior Bilateral Throughout] Pulse Rate [ From Monitor] Respiratory 25 H 24 23 Rate Respiratory Rate [Anterior Bilateral Throughout] Blood Pressure 141/79 133/65 151/89 O2 Sat by Pulse 99 100 100 Oximetry 01/18/19 01/18/19 01/18/19 06:15 06:30 06:45 Temperature Pulse Rate 88 90 87 Pulse Rate [ Anterior Bilateral Throughout] Pulse Rate [ From Monitor] Respiratory 23 21 16 Rate Respiratory Rate [Anterior Bilateral Throughout] Blood Pressure 151/89 159/90 151/89 O2 Sat by Pulse 100 100 Oximetry 01/18/19 01/18/1901/18/19 07:00 07:15 07:30 Temperature Pulse Rate 86 88 87 Pulse Rate [ Anterior Bilateral Throughout] Pulse Rate [ From Monitor] Respiratory 20 26 H 27 H Rate Respiratory Rate [Anterior Bilateral Throughout] Blood Pressure 145/75 145/75 133/67 O2 Sat by Pulse 100 100 100 Oximetry 01/18/19 01/18/19 01/18/19 07:45 08:00 08:15 Temperature Pulse Rate 85 92 H 86 Pulse Rate [ Anterior Bilateral Throughout] Pulse Rate [ 92 H From Monitor] Respiratory 22 17 26 H Rate Respiratory Rate [Anterior Bilateral Throughout] Blood Pressure 133/67 132/74 132/74 O2 Sat by Pulse 100 100 100 Oximetry 01/18/19 01/18/19 01/18/19 08:30 08:45 09:00 Temperature 98.0 F Pulse Rate 82 81 83 Pulse Rate [ Anterior Bilateral Throughout] Pulse Rate [ From Monitor] Respiratory 17 19 21 Rate Respiratory Rate [Anterior Bilateral Throughout] Blood Pressure 139/66 139/66 122/69 O2 Sat by Pulse 100 100 100 Oximetry 01/18/19 10:06 Temperature Pulse Rate 89 Pulse Rate [ Anterior Bilateral Throughout] Pulse Rate [ From Monitor] Respiratory Rate Respiratory Rate [Anterior Bilateral Throughout] Blood Pressure 126/66 O2 Sat by Pulse Oximetry Constitutional: no acute distress, other (elderly, atraumatic, normocephalic, chronically looking female) Eyes: non-icteric ENT: oropharynx moist, other (ETT at 23cm) Neck: supple, no lymphadenopathy, no JVD Effort: normal Ascultation: Bilateral: diminished breath sounds, rales (bilaterally) Percussion: Bilateral: not dull Cardiovascular: regular rate and rhythm, other (tacycardia, S1,S2, no murmurs, gallops or rubs) Gastrointestinal: normoactive bowel sounds, soft, non-tender, non-distended Integumentary: normal Extremities: no cyanosis, no edema, pulses normal, no ischemia or petechiae Neurologic: unable to assess Psychiatric: other (unable to assess secondary to mental status) CBC and BMP: 01/18/19 04:21 01/18/19 04:21 ABG, PT/INR, D-dimer: ABG POC ABG pH 7.485 (7.35-7.45) H 01/18/19 04:36 POC ABG pCO2 31.0 (35-45) L 01/18/19 04:36 POC ABG pO2 126 (80-105) H 01/18/19 04:36 POC ABG HCO3 23.3 (22-26 mml/L) 01/18/19 04:36 POC ABG Total CO2 24 (23-27mmol/L) 01/18/19 04:36 POC ABG O2 Sat 99 01/18/19 04:36 PT/INR, D-dimer PT 19.7 Sec. (12.2-14.9) H 01/15/19 07:50 INR 1.56 (0.87-1.13) H 01/15/19 07:50 Abnormal lab findings: Abnormal Labs 01/15/19 01/15/19 01/15/19 07:50 07:50 07:50 WBC RBC Hgb Hct MCV 99 H RDW 16.7 H Plt Count 122 L Lymph % (Auto) Lymph # Seg Neutrophils % Seg Neuts % (Manual) Lymphocytes % (Manual) Seg Neutrophils # Seg Neutrophils # Man Lymphocytes # (Manual) PT 19.7 H INR 1.56 H POC ABG pH POC ABG pCO2 POC ABG pO2 Potassium Carbon Dioxide 11 L BUN Creatinine 1.4 H Glucose 268 H POC Glucose Calcium AST 57 H Total Creatine Kinase CK-MB (CK-2) Troponin T NT-Pro-B Natriuret Pep 5346 H Total Protein Albumin 3.6 L HDL Cholesterol 01/15/19 01/15/19 01/15/19 09:56 11:53 17:52 WBC RBC Hgb Hct MCV RDW Plt Count Lymph % (Auto) Lymph # Seg Neutrophils % Seg Neuts % (Manual) Lymphocytes % (Manual) Seg Neutrophils # Seg Neutrophils # Man Lymphocytes # (Manual) PT INR POC ABG pH 7.186 L POC ABG pCO2 46.4 H POC ABG pO2 Potassium Carbon Dioxide BUN Creatinine Glucose POC Glucose Calcium AST Total Creatine Kinase 683 H 1430 H CK-MB (CK-2) 9.5 H 13.5 H Troponin T 0.036 H D NT-Pro-B Natriuret Pep Total Protein Albumin HDL Cholesterol 65 H 01/15/19 01/15/19 01/16/19 18:31 21:46 02:14 WBC RBC Hgb Hct MCV RDW Plt Count Lymph % (Auto) Lymph # Seg Neutrophils % Seg Neuts % (Manual) Lymphocytes % (Manual) Seg Neutrophils # Seg Neutrophils # Man Lymphocytes # (Manual) PT INR POC ABG pH POC ABG pCO2 31.8 L POC ABG pO2 167 H Potassium Carbon Dioxide BUN Creatinine Glucose POC Glucose 134 H 136 H Calcium AST Total Creatine Kinase CK-MB (CK-2) Troponin T NT-Pro-B Natriuret Pep Total Protein Albumin HDL Cholesterol 01/16/19 01/16/19 01/16/19 04:16 04:16 05:05 WBC 11.4 H RBC Hgb Hct MCV RDW Plt Count 105 L Lymph % (Auto) Lymph # Seg Neutrophils % Seg Neuts % (Manual) 74.0 H Lymphocytes % (Manual) 2.0 L Seg Neutrophils # Seg Neutrophils # Man 8.4 H Lymphocytes # (Manual) 0.2 L PT INR POC ABG pH 7.458 H POC ABG pCO2 31.4 L POC ABG pO2 135 H Potassium 3.3 L Carbon Dioxide 21 L D BUN 24 H Creatinine 1.5 H Glucose 141 H POC Glucose Calcium 8.1 L AST 71 H Total Creatine Kinase CK-MB (CK-2) Troponin T NT-Pro-B Natriuret Pep Total Protein 6.2 L Albumin 3.5 L HDL Cholesterol 01/16/19 01/16/19 01/16/19 05:24 13:42 21:08 WBC RBC Hgb Hct MCV RDW Plt Count Lymph % (Auto) Lymph # Seg Neutrophils % Seg Neuts % (Manual) Lymphocytes % (Manual) Seg Neutrophils # Seg Neutrophils # Man Lymphocytes # (Manual) PT INR POC ABG pH POC ABG pCO2 POC ABG pO2 Potassium Carbon Dioxide BUN Creatinine Glucose POC Glucose 137 H 129 H 122 H Calcium AST Total Creatine Kinase CK-MB (CK-2) Troponin T NT-Pro-B Natriuret Pep Total Protein Albumin HDL Cholesterol 01/17/19 01/17/19 01/17/19 02:18 04:23 05:13 WBC RBC Hgb Hct MCV RDW Plt Count Lymph % (Auto) Lymph # Seg Neutrophils % Seg Neuts % (Manual) Lymphocytes % (Manual) Seg Neutrophils # Seg Neutrophils # Man Lymphocytes # (Manual) PT INR POC ABG pH 7.479 H POC ABG pCO2 30.0 L POC ABG pO2 141 H Potassium Carbon Dioxide BUN Creatinine Glucose POC Glucose 139 H 128 H Calcium AST Total Creatine Kinase CK-MB (CK-2) Troponin T NT-Pro-B Natriuret Pep Total Protein Albumin HDL Cholesterol 01/17/19 01/17/19 01/17/19 10:22 15:59 18:45 WBC RBC Hgb Hct MCV RDW Plt Count Lymph % (Auto) Lymph # Seg Neutrophils % Seg Neuts % (Manual) Lymphocytes % (Manual) Seg Neutrophils # Seg Neutrophils # Man Lymphocytes # (Manual) PT INR POC ABG pH POC ABG pCO2 POC ABG pO2 Potassium Carbon Dioxide BUN Creatinine Glucose POC Glucose 133 H 121 H 106 H Calcium AST Total Creatine Kinase CK-MB (CK-2) Troponin T NT-Pro-B Natriuret Pep Total Protein Albumin HDL Cholesterol 01/17/19 01/18/19 01/18/19 23:35 04:21 04:21 WBC RBC 3.27 L Hgb 9.6 L Hct 29.9 L MCV RDW Plt Count 79 L Lymph % (Auto) 6.0 L Lymph # 0.5 L Seg Neutrophils % 89.2 H Seg Neuts % (Manual) Lymphocytes % (Manual) Seg Neutrophils # 8.1 H Seg Neutrophils # Man Lymphocytes # (Manual) PT INR POC ABG pH POC ABG pCO2 POC ABG pO2 Potassium Carbon Dioxide BUN 28 H Creatinine 1.3 H Glucose 129 H POC Glucose 121 H Calcium AST 120 H Total Creatine Kinase CK-MB (CK-2) Troponin T NT-Pro-B Natriuret Pep Total Protein 5.1 L Albumin 3.0 L HDL Cholesterol 01/18/19 01/18/19 01/18/19 04:21 04:36 05:43 WBC RBC Hgb Hct MCV RDW Plt Count Lymph % (Auto) Lymph # Seg Neutrophils % Seg Neuts % (Manual) Lymphocytes % (Manual) Seg Neutrophils # Seg Neutrophils # Man Lymphocytes # (Manual) PT INR POC ABG pH 7.485 H POC ABG pCO2 31.0 L POC ABG pO2 126 H Potassium Carbon Dioxide BUN 28 H Creatinine 1.3 H Glucose 128 H POC Glucose 142 H Calcium AST Total Creatine Kinase CK-MB (CK-2) Troponin T NT-Pro-B Natriuret Pep Total Protein Albumin HDL Cholesterol Chest x-ray: image reviewed (lungs clear, + cardiomegaly) Allied health notes reviewed: nursing
[2019-01-18] MEDS: LOVENOX SUB-Q SCH (13:13)
--- NOTE | 2019-01-18 17:18 | Progress Note ---
Subjective Date of service: 01/18/19 Principal diagnosis: cardiac arrest Interval history: in coma will rpond to ap[i and has positive gag reflex as well as positive corneal reflex does not open eyes to verbal stimulation gaze is to the right and only minimal Doll's eyes Impression no definable evidence of recovery no seizures on recent EEG plan CT of brain tuesday as prognostic matter Objective - Vital Sign Vital Signs - 12hr 01/18/19 01/18/19 01/18/19 05:30 05:45 06:00 Temperature Pulse Rate 87 85 86 Pulse Rate [ Anterior Bilateral Throughout] Pulse Rate [ From Monitor] Respiratory 25 H 24 23 Rate Respiratory Rate [Anterior Bilateral Throughout] Blood Pressure 141/79 133/65 151/89 O2 Sat by Pulse 99 100 100 Oximetry 01/18/19 01/18/19 01/18/19 06:15 06:30 06:45 Temperature Pulse Rate 88 90 87 Pulse Rate [ Anterior Bilateral Throughout] Pulse Rate [ From Monitor] Respiratory 23 21 16 Rate Respiratory Rate [Anterior Bilateral Throughout] Blood Pressure 151/89 159/90 151/89 O2 Sat by Pulse 100 100 Oximetry 01/18/19 01/18/19 01/18/19 07:00 07:15 07:30 Temperature Pulse Rate 86 88 87 Pulse Rate [ Anterior Bilateral Throughout] Pulse Rate [ From Monitor] Respiratory 20 26 H 27 H Rate Respiratory Rate [Anterior Bilateral Throughout] Blood Pressure 145/75 145/75 133/67 O2 Sat by Pulse 100 100 100 Oximetry 01/18/19 01/18/19 01/18/19 07:45 08:00 08:15 Temperature Pulse Rate 85 92 H 86 Pulse Rate [ Anterior Bilateral Throughout] Pulse Rate [ 92 H From Monitor] Respiratory 22 17 26 H Rate Respiratory Rate [Anterior Bilateral Throughout] Blood Pressure 133/67 132/74 132/74 O2 Sat by Pulse 100 100 100 Oximetry 01/18/19 01/18/19 01/18/19 08:25 08:30 08:45 Temperature 98.0 F Pulse Rate 82 81 Pulse Rate [ 83 Anterior Bilateral Throughout] Pulse Rate [ From Monitor] Respiratory 17 19 Rate Respiratory 25 H Rate [Anterior Bilateral Throughout] Blood Pressure 139/66 139/66 O2 Sat by Pulse 100 100 Oximetry 01/18/19 01/18/19 01/18/19 09:00 09:15 09:30 Temperature Pulse Rate 83 81 84 Pulse Rate [ Anterior Bilateral Throughout] Pulse Rate [ From Monitor] Respiratory 21 18 21 Rate Respiratory Rate [Anterior Bilateral Throughout] Blood Pressure 122/69 122/69 123/67 O2 Sat by Pulse 100 100 100 Oximetry 01/18/19 01/18/19 01/18/19 09:45 10:00 10:06 Temperature Pulse Rate 84 86 89 Pulse Rate [ Anterior Bilateral Throughout] Pulse Rate [ From Monitor] Respiratory 17 15 Rate Respiratory Rate [Anterior Bilateral Throughout] Blood Pressure 123/67 126/66 126/66 O2 Sat by Pulse 100 100 Oximetry 01/18/19 01/18/19 01/18/19 10:15 10:30 10:45 Temperature Pulse Rate 86 87 79 Pulse Rate [ Anterior Bilateral Throughout] Pulse Rate [ From Monitor] Respiratory 18 13 24 Rate Respiratory Rate [Anterior Bilateral Throughout] Blood Pressure 126/66 122/65 122/65 O2 Sat by Pulse 100 100 100 Oximetry 01/18/19 01/18/19 01/18/19 11:00 11:15 11:30 Temperature Pulse Rate 83 81 80 Pulse Rate [ Anterior Bilateral Throughout] Pulse Rate [ From Monitor] Respiratory 22 23 22 Rate Respiratory Rate [Anterior Bilateral Throughout] Blood Pressure 117/62 117/62 114/62 O2 Sat by Pulse 100 100 Oximetry 01/18/19 01/18/19 01/18/19 11:45 11:52 12:00 Temperature Pulse Rate 91 H 78 80 Pulse Rate [ Anterior Bilateral Throughout] Pulse Rate [ 80 From Monitor] Respiratory 24 22 23 Rate Respiratory Rate [Anterior Bilateral Throughout] Blood Pressure 114/62 114/61 O2 Sat by Pulse 100 100 99 Oximetry 01/18/19 01/18/19 01/18/19 12:15 12:30 12:45 Temperature Pulse Rate 81 84 82 Pulse Rate [ Anterior Bilateral Throughout] Pulse Rate [ From Monitor] Respiratory 24 24 23 Rate Respiratory Rate [Anterior Bilateral Throughout] Blood Pressure 114/61 116/60 116/60 O2 Sat by Pulse 99 99 99 Oximetry 01/18/19 01/18/19 01/18/19 13:00 13:15 13:21 Temperature 99.1 F Pulse Rate 80 78 Pulse Rate [ Anterior Bilateral Throughout] Pulse Rate [ From Monitor] Respiratory 23 23 Rate Respiratory Rate [Anterior Bilateral Throughout] Blood Pressure 119/67 119/67 O2 Sat by Pulse 99 100 Oximetry 01/18/19 01/18/19 01/18/19 13:30 13:45 14:00 Temperature Pulse Rate 86 82 86 Pulse Rate [ Anterior Bilateral Throughout] Pulse Rate [ From Monitor] Respiratory 25 H 24 28 H Rate Respiratory Rate [Anterior Bilateral Throughout] Blood Pressure 114/68 114/68 122/64 O2 Sat by Pulse 100 100 96 Oximetry 01/18/19 01/18/19 01/18/19 14:05 14:15 14:30 Temperature Pulse Rate 81 85 Pulse Rate [ 78 Anterior Bilateral Throughout] Pulse Rate [ From Monitor] Respiratory 26 H 28 H Rate Respiratory 22 Rate [Anterior Bilateral Throughout] Blood Pressure 122/64 114/62 O2 Sat by Pulse 100 100 Oximetry 01/18/19 01/18/19 01/18/19 14:45 15:00 15:15 Temperature Pulse Rate 86 85 84 Pulse Rate [ Anterior Bilateral Throughout] Pulse Rate [ From Monitor] Respiratory 26 H 24 24 Rate Respiratory Rate [Anterior Bilateral Throughout] Blood Pressure 114/62 118/62 118/62 O2 Sat by Pulse 100 100 100 Oximetry 01/18/19 01/18/19 01/18/19 15:30 15:45 15:56 Temperature Pulse Rate 86 90 86 Pulse Rate [ Anterior Bilateral Throughout] Pulse Rate [ From Monitor] Respiratory 27 H 27 H 26 H Rate Respiratory Rate [Anterior Bilateral Throughout] Blood Pressure 115/64 115/64 115/64 O2 Sat by Pulse 100 100 100 Oximetry 01/18/19 01/18/19 01/18/19 16:00 16:15 16:30 Temperature Pulse Rate 86 84 103 H Pulse Rate [ Anterior Bilateral Throughout] Pulse Rate [ From Monitor] Respiratory 28 H 26 H 29 H Rate Respiratory Rate [Anterior Bilateral Throughout] Blood Pressure 119/62 119/62 131/82 O2 Sat by Pulse 99 96 Oximetry 01/18/19 01/18/19 16:45 17:00 Temperature Pulse Rate 85 91 H Pulse Rate [ Anterior Bilateral Throughout] Pulse Rate [ From Monitor] Respiratory 27 H 29 H Rate Respiratory Rate [Anterior Bilateral Throughout] Blood Pressure 131/82 119/65 O2 Sat by Pulse 100 99 Oximetry - Laboratory Findings CBC and BMP: 01/18/19 04:21 01/18/19 04:21 Abnormal Lab Findings: Abnormal Labs 01/15/19 01/15/19 01/15/19 07:50 07:50 07:50 WBC RBC Hgb Hct MCV 99 H RDW 16.7 H Plt Count 122 L Lymph % (Auto) Lymph # Seg Neutrophils % Seg Neuts % (Manual) Lymphocytes % (Manual) Seg Neutrophils # Seg Neutrophils # Man Lymphocytes # (Manual) PT 19.7 H INR 1.56 H POC ABG pH POC ABG pCO2 POC ABG pO2 Potassium Carbon Dioxide 11 L BUN Creatinine 1.4 H Glucose 268 H POC Glucose Calcium AST 57 H Total Creatine Kinase CK-MB (CK-2) Troponin T NT-Pro-B Natriuret Pep 5346 H Total Protein Albumin 3.6 L HDL Cholesterol 01/15/19 01/15/19 01/15/19 09:56 11:53 17:52 WBC RBC Hgb Hct MCV RDW Plt Count Lymph % (Auto) Lymph # Seg Neutrophils % Seg Neuts % (Manual) Lymphocytes % (Manual) Seg Neutrophils # Seg Neutrophils # Man Lymphocytes # (Manual) PT INR POC ABG pH 7.186 L POC ABG pCO2 46.4 H POC ABG pO2 Potassium Carbon Dioxide BUN Creatinine Glucose POC Glucose Calcium AST Total Creatine Kinase 683 H 1430 H CK-MB (CK-2) 9.5 H 13.5 H Troponin T 0.036 H D NT-Pro-B Natriuret Pep Total Protein Albumin HDL Cholesterol 65 H 01/15/19 01/15/19 01/16/19 18:31 21:46 02:14 WBC RBC Hgb Hct MCV RDW Plt Count Lymph % (Auto) Lymph # Seg Neutrophils % Seg Neuts % (Manual) Lymphocytes % (Manual) Seg Neutrophils # Seg Neutrophils # Man Lymphocytes # (Manual) PT INR POC ABG pH POC ABG pCO2 31.8 L POC ABG pO2 167 H Potassium Carbon Dioxide BUN Creatinine Glucose POC Glucose 134 H 136 H Calcium AST Total Creatine Kinase CK-MB (CK-2) Troponin T NT-Pro-B Natriuret Pep Total Protein Albumin HDL Cholesterol 01/16/19 01/16/19 01/16/19 04:16 04:16 05:05 WBC 11.4 H RBC Hgb Hct MCV RDW Plt Count 105 L Lymph % (Auto) Lymph # Seg Neutrophils % Seg Neuts % (Manual) 74.0 H Lymphocytes % (Manual) 2.0 L Seg Neutrophils # Seg Neutrophils # Man 8.4 H Lymphocytes # (Manual) 0.2 L PT INR POC ABG pH 7.458 H POC ABG pCO2 31.4 L POC ABG pO2 135 H Potassium 3.3 L Carbon Dioxide 21 L D BUN 24 H Creatinine 1.5 H Glucose 141 H POC Glucose Calcium 8.1 L AST 71 H Total Creatine Kinase CK-MB (CK-2) Troponin T NT-Pro-B Natriuret Pep Total Protein 6.2 L Albumin 3.5 L HDL Cholesterol 01/16/19 01/16/19 01/16/19 05:24 13:42 21:08 WBC RBC Hgb Hct MCV RDW Plt Count Lymph % (Auto) Lymph # Seg Neutrophils % Seg Neuts % (Manual) Lymphocytes % (Manual) Seg Neutrophils # Seg Neutrophils # Man Lymphocytes # (Manual) PT INR POC ABG pH POC ABG pCO2 POC ABG pO2 Potassium Carbon Dioxide BUN Creatinine Glucose POC Glucose 137 H 129 H 122 H Calcium AST Total Creatine Kinase CK-MB (CK-2) Troponin T NT-Pro-B Natriuret Pep Total Protein Albumin HDL Cholesterol 01/17/19 01/17/19 01/17/19 02:18 04:23 05:13 WBC RBC Hgb Hct MCV RDW Plt Count Lymph % (Auto) Lymph # Seg Neutrophils % Seg Neuts % (Manual) Lymphocytes % (Manual) Seg Neutrophils # Seg Neutrophils # Man Lymphocytes # (Manual) PT INR POC ABG pH 7.479 H POC ABG pCO2 30.0 L POC ABG pO2 141 H Potassium Carbon Dioxide BUN Creatinine Glucose POC Glucose 139 H 128 H Calcium AST Total Creatine Kinase CK-MB (CK-2) Troponin T NT-Pro-B Natriuret Pep Total Protein Albumin HDL Cholesterol 01/17/19 01/17/19 01/17/19 10:22 15:59 18:45 WBC RBC Hgb Hct MCV RDW Plt Count Lymph % (Auto) Lymph # Seg Neutrophils % Seg Neuts % (Manual) Lymphocytes % (Manual) Seg Neutrophils # Seg Neutrophils # Man Lymphocytes # (Manual) PT INR POC ABG pH POC ABG pCO2 POC ABG pO2 Potassium Carbon Dioxide BUN Creatinine Glucose POC Glucose 133 H 121 H 106 H Calcium AST Total Creatine Kinase CK-MB (CK-2) Troponin T NT-Pro-B Natriuret Pep Total Protein Albumin HDL Cholesterol 01/17/19 01/18/19 01/18/19 23:35 04:21 04:21 WBC RBC 3.27 L Hgb 9.6 L Hct 29.9 L MCV RDW Plt Count 79 L Lymph % (Auto) 6.0 L Lymph # 0.5 L Seg Neutrophils % 89.2 H Seg Neuts % (Manual) Lymphocytes % (Manual) Seg Neutrophils # 8.1 H Seg Neutrophils # Man Lymphocytes # (Manual) PT INR POC ABG pH POC ABG pCO2 POC ABG pO2 Potassium Carbon Dioxide BUN 28 H Creatinine 1.3 H Glucose 129 H POC Glucose 121 H Calcium AST 120 H Total Creatine Kinase CK-MB (CK-2) Troponin T NT-Pro-B Natriuret Pep Total Protein 5.1 L Albumin 3.0 L HDL Cholesterol 01/18/19 01/18/19 01/18/19 04:21 04:36 05:43 WBC RBC Hgb Hct MCV RDW Plt Count Lymph % (Auto) Lymph # Seg Neutrophils % Seg Neuts % (Manual) Lymphocytes % (Manual) Seg Neutrophils # Seg Neutrophils # Man Lymphocytes # (Manual) PT INR POC ABG pH 7.485 H POC ABG pCO2 31.0 L POC ABG pO2 126 H Potassium Carbon Dioxide BUN 28 H Creatinine 1.3 H Glucose 128 H POC Glucose 142 H Calcium AST Total Creatine Kinase CK-MB (CK-2) Troponin T NT-Pro-B Natriuret Pep Total Protein Albumin HDL Cholesterol 01/18/19 12:04 WBC RBC Hgb Hct MCV RDW Plt Count Lymph % (Auto) Lymph # Seg Neutrophils % Seg Neuts % (Manual) Lymphocytes % (Manual) Seg Neutrophils # Seg Neutrophils # Man Lymphocytes # (Manual) PT INR POC ABG pH POC ABG pCO2 POC ABG pO2 Potassium Carbon Dioxide BUN Creatinine Glucose POC Glucose 113 H Calcium AST Total Creatine Kinase CK-MB (CK-2) Troponin T NT-Pro-B Natriuret Pep Total Protein Albumin HDL Cholesterol
[2019-01-18] MEDS: TYLENOL PO PRN (19:24)
--- NOTE | 2019-01-18 21:32 | Progress Note ---
Assessment and Plan Assessment and plan: The high probability of a clinically significant, sudden or life threatening deterioration of the [] system(s) required my full and direct attention, intervention and personal management. The aggregate critical care time was [] minutes. This time is in addition to time spent performing reported procedures but includes the following: [x] Data Review and interpretation [x] Patient assessment and monitoring of vital signs [x] Documentation [x] Medication orders and management Total Time Spent with Patient (Minutes): 36 - Patient Problems (1) Altered mental status Current Visit: Yes Status: Acute Plan to address problem: EEG which showed minimal brain activity. Patient remains a comatose state. Neurology input appreciated. Scheduled for follow-up CT of head. Overall prognosis remains poor. Discussed with family about PEG and trach. (2) CHF (congestive heart failure) Current Visit: Yes Status: Acute Plan to address problem: At present fairly well compensated ejection fraction 35%. Continue beta leah and diaphoresis when necessary. (3) COPD (chronic obstructive pulmonary disease) with emphysema Current Visit: Yes Status: Acute Plan to address problem: Maintenance intubated acute respiratory failure. Complicated by aspiration pneumonia. Patient on Unasyn and vancomycin. (4) Respiratory arrest Current Visit: Yes Status: Acute Plan to address problem: Acute respiratory failure secondary to cardiorespiratory arrest now aspiration pneumonia continue current IV antibiotics. Appears to be very difficult wean now. Patient not as responsive will most likely require PEG tube and tracheostomy. (5) CAD S/P percutaneous coronary angioplasty Current Visit: Yes Status: Chronic (6) CKD (chronic kidney disease) Current Visit: Yes Status: Chronic Plan to address problem: Acute on chronic kidney disease appears to be improving this particular time. History Interval history: Patient remains in comatose state. Had family conference with granddaughter. About EEG findings. Explained all questions to her satisfaction. Patient understands want to continue everything for now. States grandmother was able to squeeze hand at request. Could not open eyes. But didn't respond. Maintains intubated. Hospitalist Physical - Constitutional Vitals: Temp Pulse Resp BP Pulse Ox 97.8 F 80 25 H 118/57 96 01/18/19 20:00 01/18/19 21:00 01/18/19 21:00 01/18/19 21:00 01/18/19 21:00 General appearance: Present: no acute distress, well-nourished, other (intubated) - EENT ENT: hearing intact, other (did not open eyes. Has gag reflex.) - Neck Neck: Present: supple, normal ROM - Respiratory Respiratory effort: normal Respiratory: bilateral: diminished, rhonchi (bilateral rhonchi.) - Cardiovascular Rhythm: regular - Extremities Extremities: pulses intact, pulses symmetrical, No edema, normal temperature, normal color Peripheral Pulses: within normal limits - Abdominal General gastrointestinal: soft, non-tender, non-distended, normal bowel sounds, other (NG tube feedings) - Neurologic Neurologic: other (remains in comatose state.) Results - Labs CBC & Chem 7: 01/18/19 04:21 01/18/19 04:21 Labs: Laboratory Last Values WBC 9.1 K/mm3 (4.5-11.0) 01/18/19 04:21 RBC 3.27 M/mm3 (3.65-5.03) L 01/18/19 04:21 Hgb 9.6 gm/dl (10.1-14.3) L 01/18/19 04:21 Hct 29.9 % (30.3-42.9) L 01/18/19 04:21 MCV 88 fl (79-97) 01/18/19 04:21 MCH 29 pg (28-32) 01/18/19 04:21 MCHC 34 % (30-34) 01/18/19 04:21 RDW 14.8 % (13.2-15.2) 01/18/19 04:21 Plt Count 79 K/mm3 (140-440) L 01/18/19 04:21 Lymph % (Auto) 6.0 % (13.4-35.0) L 01/18/19 04:21 [place] % (Auto) 4.5 % (0.0-7.3) 01/18/19 04:21 Eos % (Auto) 0.1 % (0.0-4.3) 01/18/19 04:21 Baso % (Auto) 0.2 % (0.0-1.8) 01/18/19 04:21 Lymph # 0.5 K/mm3 (1.2-5.4) L 01/18/19 04:21 [place] # 0.4 K/mm3 (0.0-0.8) 01/18/19 04:21 Eos # 0.0 K/mm3 (0.0-0.4) 01/18/19 04:21 Baso # 0.0 K/mm3 (0.0-0.1) 01/18/19 04:21 Add Manual Diff Complete 01/16/19 04:16 Total Counted 100 01/16/19 04:16 Seg Neutrophils % 89.2 % (40.0-70.0) H 01/18/19 04:21 Seg Neuts % (Manual) 74.0 % (40.0-70.0) H 01/16/19 04:16 Band Neutrophils % 22.0 % 01/16/19 04:16 Lymphocytes % (Manual) 2.0 % (13.4-35.0) L 01/16/19 04:16 Reactive Lymphs % (Man) 0 % 01/16/19 04:16 Monocytes % (Manual) 2.0 % (0.0-7.3) 01/16/19 04:16 Eosinophils % (Manual) 0 % (0.0-4.3) 01/16/19 04:16 Basophils % (Manual) 0 % (0.0-1.8) 01/16/19 04:16 Metamyelocytes % 0 % 01/16/19 04:16 Myelocytes % 0 % 01/16/19 04:16 Promyelocytes % 0 % 01/16/19 04:16 Blast Cells % 0 % 01/16/19 04:16 Nucleated RBC % Not Reportable 01/16/19 04:16 Seg Neutrophils # 8.1 K/mm3 (1.8-7.7) H 01/18/19 04:21 Seg Neutrophils # Man 8.4 K/mm3 (1.8-7.7) H 01/16/19 04:16 Band Neutrophils # 2.5 K/mm3 01/16/19 04:16 Lymphocytes # (Manual) 0.2 K/mm3 (1.2-5.4) L 01/16/19 04:16 Abs React Lymphs (Man) 0.0 K/mm3 01/16/19 04:16 Monocytes # (Manual) 0.2 K/mm3 (0.0-0.8) 01/16/19 04:16 Eosinophils # (Manual) 0.0 K/mm3 (0.0-0.4) 01/16/19 04:16 Basophils # (Manual) 0.0 K/mm3 (0.0-0.1) 01/16/19 04:16 Metamyelocytes # 0.0 K/mm3 01/16/19 04:16 Myelocytes # 0.0 K/mm3 01/16/19 04:16 Promyelocytes # 0.0 K/mm3 01/16/19 04:16 Blast Cells # 0.0 K/mm3 01/16/19 04:16 WBC Morphology Not Reportable 01/16/19 04:16 Hypersegmented Neuts Not Reportable 01/16/19 04:16 Hyposegmented Neuts Not Reportable 01/16/19 04:16 Hypogranular Neuts Not Reportable 01/16/19 04:16 Smudge Cells Not Reportable 01/16/19 04:16 Toxic Granulation Not Reportable 01/16/19 04:16 Toxic Vacuolation Not Reportable 01/16/19 04:16 Dohle Bodies Not Reportable 01/16/19 04:16 Pelger-Huet Anomaly Not Reportable 01/16/19 04:16 Cheryl Rods Not Reportable 01/16/19 04:16 Platelet Estimate Consistent w auto 01/16/19 04:16 Clumped Platelets Not Reportable 01/16/19 04:16 Plt Clumps, EDTA Not Reportable 01/16/19 04:16 Large Platelets Not Reportable 01/16/19 04:16 Giant Platelets Not Reportable 01/16/19 04:16 Platelet Satelliting Not Reportable 01/16/19 04:16 Plt Morphology Comment Not Reportable 01/16/19 04:16 RBC Morphology Normal 01/16/19 04:16 Dimorphic RBCs Not Reportable 01/16/19 04:16 Polychromasia Not Reportable 01/16/19 04:16 Hypochromasia Not Reportable 01/16/19 04:16 Poikilocytosis Not Reportable 01/16/19 04:16 Anisocytosis Not Reportable 01/16/19 04:16 Microcytosis Not Reportable 01/16/19 04:16 Macrocytosis Not Reportable 01/16/19 04:16 Spherocytes Not Reportable 01/16/19 04:16 Pappenheimer Bodies Not Reportable 01/16/19 04:16 Sickle Cells Not Reportable 01/16/19 04:16 Target Cells Not Reportable 01/16/19 04:16 Tear Drop Cells Not Reportable 01/16/19 04:16 Ovalocytes Not Reportable 01/16/19 04:16 Helmet Cells Not Reportable 01/16/19 04:16 [place] Bodies Not Reportable 01/16/19 04:16 [place] Rings Not Reportable 01/16/19 04:16 [place] Cells Not Reportable 01/16/19 04:16 Bite Cells Not Reportable 01/16/19 04:16 Crenated Cell Not Reportable 01/16/19 04:16 Elliptocytes Not Reportable 01/16/19 04:16 Acanthocytes (Spur) Not Reportable 01/16/19 04:16 Rouleaux Not Reportable 01/16/19 04:16 Hemoglobin C Crystals Not Reportable 01/16/19 04:16 Schistocytes Not Reportable 01/16/19 04:16 Malaria parasites Not Reportable 01/16/19 04:16 [place] Bodies Not Reportable 01/16/19 04:16 Hem Pathologist Commnt No 01/16/19 04:16 PT 19.7 Sec. (12.2-14.9) H 01/15/19 07:50 INR 1.56 (0.87-1.13) H 01/15/19 07:50 APTT 36.0 Sec. (24.2-36.6) 01/15/19 07:50 POC ABG pH 7.489 (7.35-7.45) H 01/18/19 20:47 POC ABG pCO2 32.8 (35-45) L 01/18/19 20:47 POC ABG pO2 91 (80-105) 01/18/19 20:47 POC ABG HCO3 25.0 (22-26 mml/L) 01/18/19 20:47 POC ABG Total CO2 26 (23-27mmol/L) 01/18/19 20:47 POC ABG O2 Sat 98 01/18/19 20:47 POC ABG Base Excess 2 ((-2) - (+3)mmol/L) 01/18/19 20:47 FiO2 25 % 01/18/19 20:47 Sodium 139 mmol/L (137-145) 01/18/19 04:21 Potassium 3.9 mmol/L (3.6-5.0) 01/18/19 04:21 Chloride 102.9 mmol/L (98-107) 01/18/19 04:21 Carbon Dioxide 22 mmol/L (22-30) 01/18/19 04:21 Anion Gap 18 mmol/L 01/18/19 04:21 BUN 28 mg/dL (7-17) H 01/18/19 04:21 Creatinine 1.3 mg/dL (0.7-1.2) H 01/18/19 04:21 Estimated GFR 48 ml/min 01/18/19 04:21 BUN/Creatinine Ratio 22 % 01/18/19 04:21 Glucose 128 mg/dL (65-100) H 01/18/19 04:21 POC Glucose 119 (70-105) H 01/18/19 18:16 Hemoglobin A1c 6.0 % (4-6) 01/15/19 11:53 Calcium 8.5 mg/dL (8.4-10.2) 01/18/19 04:21 Total Bilirubin 0.90 mg/dL (0.1-1.2) 01/18/19 04:21 AST 120 units/L (5-40) H 01/18/19 04:21 ALT 24 units/L (7-56) 01/18/19 04:21 Alkaline Phosphatase 48 units/L (35-129) 01/18/19 04:21 Total Creatine Kinase 1430 units/L (30-135) H 01/15/19 17:52 CK-MB (CK-2) 13.5 ng/mL (0.0-4.0) H 01/15/19 17:52 CK-MB (CK-2) Rel Index 0.9 (0-4) 01/15/19 17:52 Troponin T 0.036 ng/mL (0.00-0.029) H D 01/15/19 17:52 NT-Pro-B Natriuret Pep 5346 pg/mL (0-900) H 01/15/19 07:50 Total Protein 5.1 g/dL (6.3-8.2) L 01/18/19 04:21 Albumin 3.0 g/dL (3.9-5) L 01/18/19 04:21 Albumin/Globulin Ratio 1.4 % 01/18/19 04:21 Triglycerides 75 mg/dL (2-149) 01/15/19 17:52 Cholesterol 149 mg/dL (50-199) 01/15/19 17:52 LDL Cholesterol Direct 84 mg/dL (50-130) 01/15/19 17:52 HDL Cholesterol 65 mg/dL (40-59) H 01/15/19 17:52 Cholesterol/HDL Ratio 2.29 % 01/15/19 17:52 Urine Opiates Screen Presumptive negative 01/15/19 16:30 Urine Methadone Screen Presumptive negative 01/15/19 16:30 Ur Barbiturates Screen Presumptive negative 01/15/19 16:30 Ur Phencyclidine Scrn Presumptive negative 01/15/19 16:30 Ur Amphetamines Screen Presumptive negative 01/15/19 16:30 U Benzodiazepines Scrn Presumptive negative 01/15/19 16:30 Urine Cocaine Screen Presumptive negative 01/15/19 16:30 U Marijuana (THC) Screen Presumptive negative 01/15/19 16:30 Drugs of Abuse Note Disclamer 01/15/19 16:30 C. difficile Tox (PCR) Negative (Negative) 01/16/19 00:00 Active Medications - Current Medications Current Medications: Generic Name Dose Route Start Last Admin Trade Name Freq PRN Reason Stop Dose Admin Acetaminophen 650 mg 01/16/19 09:37 01/18/19 19:24 Tylenol PO 650 mg Q4H PRN Administration Fever >101 Albuterol/Ipratropium 1 ampul 01/15/19 14:00 01/18/19 19:50 Duoneb *Not For Prn Use* IH 1 ampul Q6HRT DEON Administration Lipase/Protease/Amylase 1 each 01/15/19 14:37 Pancreaze 10,500 Unit FEEDTUBE PRN PRN For Clogged Feeding Tube Aspirin 81 mg 01/16/19 10:00 01/18/19 10:06 Baby Aspirin PO 81 mg QDAY DEON Administration Atorvastatin Calcium 20 mg 01/16/19 22:00 01/18/19 21:23 Lipitor PO 20 mg QHS DEON Administration Carvedilol 6.25 mg 01/16/19 12:00 01/18/19 21:23 Coreg PO 6.25 mg BID DEON Administration Famotidine 20 mg 01/15/19 14:00 01/18/19 10:07 Pepcid IV 20 mg DAILY DEON Administration Furosemide 20 mg 01/18/19 06:00 01/18/19 21:24 Lasix IV 20 mg 0600,1800 DEON Administration Ampicillin Sodium/Sulbactam Sodium 3 gm in 100 mls @ 200 mls/hr 01/16/19 10:00 01/18/19 21:23 Unasyn/Ns 3 Gm/100 Ml IV 200 mls/hr Q12HR DEON Administration Levetiracetam 750 mg 01/18/19 10:00 01/18/19 21:23 Keppra PO 750 mg BID DEON Administration Simple Syrup 15 ml 01/15/19 14:37 Simple Syrup FEEDTUBE PRN PRN Hypoglycemia Simple Syrup 30 ml 01/15/19 14:37 Simple Syrup FEEDTUBE PRN PRN Hypoglycemia Sodium Bicarbonate 325 mg 01/15/19 14:37 Sodium Bicarbonate FEEDTUBE PRN PRN For Clogged Feeding Tube Sodium Chloride 10 ml 01/15/19 22:00 01/18/19 21:25 Sodium Chloride Flush Syringe 10 Ml IV 10 ml BID DEON Administration Sodium Chloride 10 ml 01/15/19 10:34 Sodium Chloride Flush Syringe 10 Ml IV PRN PRN LINE FLUSH Nutrition/Malnutrition Assess - Dietary Evaluation Nutrition/Malnutrition Findings: Nutrition Notes Start: 01/15/19 14:28 Freq: Status: Active Protocol: Document 01/18/19 10:28 (Rec: 01/18/19 10:30 [email or web address]) Co-Sign 01/18/19 10:28 LP Nutrition Notes Initial or Follow up Reassessment Other Pertinent Diagnosis s/p cardiorespiratory arrest ( at home) Current Diet Glucerna 1.2 at 50 mL/hr Labs/Tests Reviewed Pertinent Medications Dopamine gtt Height 5 ft 4 in Weight 49.3 kg [place] Body Weight (kg) 54.54 BMI 18.6 Subjective/Other Information TF running at goal rate at time of visit and RN states no residuals. Percent of energy/protein needs met: 97%/100% Burn Absent Trauma Absent #1 Nutrition Diagnosis Inadequate oral intake Diagnosis Progress(for reassessment Continues documentation) Is patient on ventilator? Yes Is Patient Ambulatory and/or Out of Bed No REE-(Harmon-St. Jeor-confined to bed) 1174.212 Kcal/Kg value to use for calculation 30 Approximate Energy Requirements Using 1479 kcal/Kg Calculation Used for Recommendations Kcal/kg Additional Notes Pro needs 1.2-2g/k-100g/ day Fluid needs 1ml/kcal Nutrition Intervention Nutrition Support: Glucerna 1.2 at 50ml/hr with 80ml water flush q4h. Kcal 1,440 Protein (gm) 72 Carbohydrates (gm) 137 Fluid (mL) 966 Fiber (gm) 19 Goal #1 TF tolerance Goal #2 TF to continue to meet 100% energy and pro needs Goal #3 Wt maintenance and/or gain Anticipated Discharge Needs: Unable to identify at this time Follow-Up By: 01/25/19 Additional Comments F/U: TF tolerance
[2019-01-19] MEDS: DUONEB *Not for PRN Use IH SCH ×4 (03:03→19:18)
[2019-01-19] MEDS: LASIX IV SCH (06:57)
[2019-01-19] MEDS: TYLENOL PO PRN (06:58)
[2019-01-19] MEDS: KEPPRA PO SCH ×2 (09:09→23:15)
[2019-01-19] MEDS: COREG PO SCH ×2 (09:09→23:15)
[2019-01-19] MEDS: SODIUM CHLORIDE FLUSH SYRINGE 10 ML IV SCH ×2 (09:10→23:16)
[2019-01-19] MEDS: PEPCID IV SCH (09:10)
[2019-01-19] MEDS: BABY ASPIRIN PO SCH (09:10)
[2019-01-19] MEDS: UNASYN/NS 3 GM/100 ML 3 GM/100 ML BAG IV SCH ×2 (09:10→23:16)
--- NOTE | 2019-01-19 10:20 | Progress Note ---
Assessment and Plan s/p Cardiopulmonary arrest, out of hospital, PEA with ROSC Acute hypoxic-hypercapnic respiratory failure on MVS Acute encephalopathy, metabolic Acute metabolic acidosis Acute renal injury Seizure activity Right lower lobe infiltrate, probably aspiration Pyrexia with leukocytosis Pulmonary HTN RVSP 60 Systolic heart failure EF 35-40% Thrombocytopenia (AMS is rate limiting step to safe extubation at this point) - repeat CXR in am - begin provigil - will continue to observe over next few days and if no improvement i have discussed a tracheostomy with next of kin - discontinued lovenox re: thrombocytopenia - sent HIT assay - continue Arixtra and follow platelet count - ID consulted re: AB's stewardship and sepsis picture - continue new set rate at 12/min on MVS - get ABG at 9pm tonight if still on PSV trial (no AM ABG ordered today) - EEG reading pending - Gentle diuresis but change to po lasix at same dose - continue alex SAT's & SBT's - sedation target for RASS 0 to -1 - continue GO & VTE prophylaxis - Bronchodilators with pulmonary hygiene per RT - continue to wean supplemental oxygen to keep O2 sats 88-90% - Lung protective strategies - Oxygen restrictive strategies - Daily ABGs/CXR for now - VAP bundle addressed - Continue cardioprotective measures - Replete electrolytes as indicated - Currently on Unasyn/Vancomycin, follow cultures and adjust antibiotics for ID/MAMADOU (Deescalate as indicated) - Tracheal aspirate, blood cultures are negative to date - Continue bronchodilators with pulmonary hygiene per RT - Cooper catheter placed for acute urinary retention. Plan to discontinue cooper i n the next 24 hours and monitor - Update grand-daughter, who is the POA. Discussed the possibility of tracheostomy and PEG. - Continue full MVS - Monitor renal indices closely - Avoid nephrotoxic agents, adjust all medications for CrCL - Strict intake and output monitoring - Tube feedings - Aspiration precautions - Accuchecks with glycemic control. Target glucose of 140-180 mg/dL - Maintenance of sleep -wake cycle - Mobility as tolerated by hemodynamics - Influenza and pneumonia vaccination per protocol ..care plan discussed at length with RN/RT at the bedside ..discussed in ICU-IDT rounds PROGNOSIS: GUARDED CONDITION: CRITICAL CODE STATUS: FULL CODE The high probability of a clinically significant, sudden or life-threatening deterioration of the [respiratory, neurology, renal] system(s) required my full and direct attention, intervention and personal management. The aggregate critical care time was [32] minutes without overlap. Time includes spent on; [x] Data Review and interpretation [x] Patient assessment and monitoring of vital signs [x] Documentation [x] Medication orders and management Subjective Date of service: 01/19/19 Principal diagnosis: OOH cardiac arrest; Acute hypoxemic-hypercapnic Resp failure; PNA Interval history: Patient is seen today for: OOH cardiopulmonary arrest with ROSC; Acute hypoxemic-hypercapnic respiratory failure on MVS; acute encephalopathy; aspiration pneumonia; Seen and examined at bedside; 24hour events reviewed; nursing and respiratory care staff consulted; no adverse overnight events reported to me; remains on MVS; AMS is persistent; tolerating PSV trials; no emesis or overt aspiration; no seizures and neurology evaluation ongoing Objective Vital Signs - 12hr 01/18/19 01/18/19 01/18/19 22:30 22:46 23:00 Temperature Pulse Rate 83 86 83 Pulse Rate [ Anterior Bilateral Throughout] Pulse Rate [ From Monitor] Respiratory 25 H 27 H 28 H Rate Respiratory Rate [Anterior Bilateral Throughout] Blood Pressure 117/62 117/62 125/64 O2 Sat by Pulse 95 99 Oximetry 01/18/19 01/18/19 01/18/19 23:14 23:16 23:20 Temperature Pulse Rate 85 86 87 Pulse Rate [ Anterior Bilateral Throughout] Pulse Rate [ From Monitor] Respiratory 27 H 27 H Rate Respiratory Rate [Anterior Bilateral Throughout] Blood Pressure 125/64 125/64 118/57 O2 Sat by Pulse 99 99 99 Oximetry 01/18/19 01/18/19 01/18/19 23:23 23:30 23:46 Temperature 98.4 F Pulse Rate 94 H 90 Pulse Rate [ Anterior Bilateral Throughout] Pulse Rate [ From Monitor] Respiratory 28 H 27 H Rate Respiratory Rate [Anterior Bilateral Throughout] Blood Pressure 132/75 132/75 O2 Sat by Pulse 99 99 Oximetry 01/19/19 01/19/19 01/19/19 00:00 00:16 00:30 Temperature Pulse Rate 88 89 94 H Pulse Rate [ Anterior Bilateral Throughout] Pulse Rate [ 84 From Monitor] Respiratory 27 H 26 H 24 Rate Respiratory Rate [Anterior Bilateral Throughout] Blood Pressure 136/74 136/74 139/79 O2 Sat by Pulse 100 99 99 Oximetry 01/19/19 01/19/19 01/19/19 00:46 01:00 01:16 Temperature Pulse Rate 90 93 H 92 H Pulse Rate [ Anterior Bilateral Throughout] Pulse Rate [ From Monitor] Respiratory 27 H 26 H 27 H Rate Respiratory Rate [Anterior Bilateral Throughout] Blood Pressure 139/79 144/77 144/77 O2 Sat by Pulse 99 99 Oximetry 01/19/19 01/19/19 01/19/19 01:30 01:46 02:00 Temperature Pulse Rate 90 88 88 Pulse Rate [ Anterior Bilateral Throughout] Pulse Rate [ From Monitor] Respiratory 27 H 25 H 26 H Rate Respiratory Rate [Anterior Bilateral Throughout] Blood Pressure 147/74 147/74 143/74 O2 Sat by Pulse 99 99 Oximetry 01/19/19 01/19/19 01/19/19 02:16 02:30 02:46 Temperature Pulse Rate 92 H 95 H 96 H Pulse Rate [ Anterior Bilateral Throughout] Pulse Rate [ From Monitor] Respiratory 25 H 24 22 Rate Respiratory Rate [Anterior Bilateral Throughout] Blood Pressure 143/74 132/76 132/76 O2 Sat by Pulse 100 99 100 Oximetry 01/19/19 01/19/19 01/19/19 03:00 03:03 03:11 Temperature Pulse Rate 97 H 98 H Pulse Rate [ 98 H 95 H Anterior Bilateral Throughout] Pulse Rate [ From Monitor] Respiratory 23 Rate Respiratory 21 23 Rate [Anterior Bilateral Throughout] Blood Pressure 138/73 138/78 O2 Sat by Pulse 98 99 Oximetry 01/19/19 01/19/19 01/19/19 03:16 03:20 03:30 Temperature 102.9 F H Pulse Rate 96 H 96 H Pulse Rate [ Anterior Bilateral Throughout] Pulse Rate [ From Monitor] Respiratory 23 24 Rate Respiratory Rate [Anterior Bilateral Throughout] Blood Pressure 138/73 131/72 O2 Sat by Pulse 100 Oximetry 01/19/19 01/19/19 01/19/19 03:46 04:00 04:16 Temperature Pulse Rate 97 H 96 H 98 H Pulse Rate [ Anterior Bilateral Throughout] Pulse Rate [ 84 From Monitor] Respiratory 24 23 24 Rate Respiratory Rate [Anterior Bilateral Throughout] Blood Pressure 131/72 131/72 131/72 O2 Sat by Pulse 99 98 99 Oximetry 01/19/19 01/19/19 01/19/19 04:30 04:46 05:00 Temperature Pulse Rate 96 H 101 H 97 H Pulse Rate [ Anterior Bilateral Throughout] Pulse Rate [ From Monitor] Respiratory 22 23 22 Rate Respiratory Rate [Anterior Bilateral Throughout] Blood Pressure 126/73 126/73 128/71 O2 Sat by Pulse 98 99 97 Oximetry 01/19/19 01/19/19 01/19/19 05:16 05:30 05:46 Temperature Pulse Rate 100 H 97 H 100 H Pulse Rate [ Anterior Bilateral Throughout] Pulse Rate [ From Monitor] Respiratory 22 22 19 Rate Respiratory Rate [Anterior Bilateral Throughout] Blood Pressure 128/71 130/66 130/66 O2 Sat by Pulse 99 99 Oximetry 01/19/19 01/19/19 01/19/19 06:00 06:16 06:30 Temperature Pulse Rate 100 H 101 H 101 H Pulse Rate [ Anterior Bilateral Throughout] Pulse Rate [ From Monitor] Respiratory 21 20 17 Rate Respiratory Rate [Anterior Bilateral Throughout] Blood Pressure 127/69 127/69 120/68 O2 Sat by Pulse 97 99 98 Oximetry 01/19/19 01/19/19 01/19/19 07:56 08:59 09:05 Temperature 101.0 F H Pulse Rate 91 H Pulse Rate [ 93 H Anterior Bilateral Throughout] Pulse Rate [ From Monitor] Respiratory Rate Respiratory 17 Rate [Anterior Bilateral Throughout] Blood Pressure 123/64 O2 Sat by Pulse 100 Oximetry 01/19/19 01/19/19 01/19/19 09:09 09:15 09:43 Temperature Pulse Rate 91 H 87 Pulse Rate [ 87 Anterior Bilateral Throughout] Pulse Rate [ From Monitor] Respiratory 20 Rate Respiratory 20 Rate [Anterior Bilateral Throughout] Blood Pressure 123/64 O2 Sat by Pulse 100 Oximetry Constitutional: no acute distress, other (elderly, atraumatic, normocephalic, chronically looking female) Eyes: non-icteric ENT: oropharynx moist, other (ETT at 23cm) Neck: supple, no lymphadenopathy, no JVD Effort: normal Ascultation: Bilateral: diminished breath sounds, rales (bases) Percussion: Bilateral: not dull Cardiovascular: regular rate and rhythm, other (tacycardia, S1,S2, no murmurs, gallops or rubs) Gastrointestinal: normoactive bowel sounds, soft, non-tender, non-distended Integumentary: normal Extremities: no cyanosis, no edema, pulses normal, no ischemia or petechiae Neurologic: unable to assess Psychiatric: other (unable to assess secondary to mental status) CBC and BMP: 01/18/19 04:21 01/18/19 04:21 ABG, PT/INR, D-dimer: ABG POC ABG pH 7.489 (7.35-7.45) H 01/18/19 20:47 POC ABG pCO2 32.8 (35-45) L 01/18/19 20:47 POC ABG pO2 91 (80-105) 01/18/19 20:47 POC ABG HCO3 25.0 (22-26 mml/L) 01/18/19 20:47 POC ABG Total CO2 26 (23-27mmol/L) 01/18/19 20:47 POC ABG O2 Sat 98 01/18/19 20:47 PT/INR, D-dimer PT 19.7 Sec. (12.2-14.9) H 01/15/19 07:50 INR 1.56 (0.87-1.13) H 01/15/19 07:50 Abnormal lab findings: Abnormal Labs 01/15/19 01/15/19 01/15/19 07:50 07:50 07:50 WBC RBC Hgb Hct MCV 99 H RDW 16.7 H Plt Count 122 L Lymph % (Auto) Lymph # Seg Neutrophils % Seg Neuts % (Manual) Lymphocytes % (Manual) Seg Neutrophils # Seg Neutrophils # Man Lymphocytes # (Manual) PT 19.7 H INR 1.56 H POC ABG pH POC ABG pCO2 POC ABG pO2 Potassium Carbon Dioxide 11 L BUN Creatinine 1.4 H Glucose 268 H POC Glucose Calcium AST 57 H Total Creatine Kinase CK-MB (CK-2) Troponin T NT-Pro-B Natriuret Pep 5346 H Total Protein Albumin 3.6 L HDL Cholesterol 01/15/19 01/15/19 01/15/19 09:56 11:53 17:52 WBC RBC Hgb Hct MCV RDW Plt Count Lymph % (Auto) Lymph # Seg Neutrophils % Seg Neuts % (Manual) Lymphocytes % (Manual) Seg Neutrophils # Seg Neutrophils # Man Lymphocytes # (Manual) PT INR POC ABG pH 7.186 L POC ABG pCO2 46.4 H POC ABG pO2 Potassium Carbon Dioxide BUN Creatinine Glucose POC Glucose Calcium AST Total Creatine Kinase 683 H 1430 H CK-MB (CK-2) 9.5 H 13.5 H Troponin T 0.036 H D NT-Pro-B Natriuret Pep Total Protein Albumin HDL Cholesterol 65 H 01/15/19 01/15/19 01/16/19 18:31 21:46 02:14 WBC RBC Hgb Hct MCV RDW Plt Count Lymph % (Auto) Lymph # Seg Neutrophils % Seg Neuts % (Manual) Lymphocytes % (Manual) Seg Neutrophils # Seg Neutrophils # Man Lymphocytes # (Manual) PT INR POC ABG pH POC ABG pCO2 31.8 L POC ABG pO2 167 H Potassium Carbon Dioxide BUN Creatinine Glucose POC Glucose 134 H 136 H Calcium AST Total Creatine Kinase CK-MB (CK-2) Troponin T NT-Pro-B Natriuret Pep Total Protein Albumin HDL Cholesterol 01/16/19 01/16/19 01/16/19 04:16 04:16 05:05 WBC 11.4 H RBC Hgb Hct MCV RDW Plt Count 105 L Lymph % (Auto) Lymph # Seg Neutrophils % Seg Neuts % (Manual) 74.0 H Lymphocytes % (Manual) 2.0 L Seg Neutrophils # Seg Neutrophils # Man 8.4 H Lymphocytes # (Manual) 0.2 L PT INR POC ABG pH 7.458 H POC ABG pCO2 31.4 L POC ABG pO2 135 H Potassium 3.3 L Carbon Dioxide 21 L D BUN 24 H Creatinine 1.5 H Glucose 141 H POC Glucose Calcium 8.1 L AST 71 H Total Creatine Kinase CK-MB (CK-2) Troponin T NT-Pro-B Natriuret Pep Total Protein 6.2 L Albumin 3.5 L HDL Cholesterol 01/16/19 01/16/19 01/16/19 05:24 13:42 21:08 WBC RBC Hgb Hct MCV RDW Plt Count Lymph % (Auto) Lymph # Seg Neutrophils % Seg Neuts % (Manual) Lymphocytes % (Manual) Seg Neutrophils # Seg Neutrophils # Man Lymphocytes # (Manual) PT INR POC ABG pH POC ABG pCO2 POC ABG pO2 Potassium Carbon Dioxide BUN Creatinine Glucose POC Glucose 137 H 129 H 122 H Calcium AST Total Creatine Kinase CK-MB (CK-2) Troponin T NT-Pro-B Natriuret Pep Total Protein Albumin HDL Cholesterol 01/17/19 01/17/19 01/17/19 02:18 04:23 05:13 WBC RBC Hgb Hct MCV RDW Plt Count Lymph % (Auto) Lymph # Seg Neutrophils % Seg Neuts % (Manual) Lymphocytes % (Manual) Seg Neutrophils # Seg Neutrophils # Man Lymphocytes # (Manual) PT INR POC ABG pH 7.479 H POC ABG pCO2 30.0 L POC ABG pO2 141 H Potassium Carbon Dioxide BUN Creatinine Glucose POC Glucose 139 H 128 H Calcium AST Total Creatine Kinase CK-MB (CK-2) Troponin T NT-Pro-B Natriuret Pep Total Protein Albumin HDL Cholesterol 01/17/19 01/17/19 01/17/19 10:22 15:59 18:45 WBC RBC Hgb Hct MCV RDW Plt Count Lymph % (Auto) Lymph # Seg Neutrophils % Seg Neuts % (Manual) Lymphocytes % (Manual) Seg Neutrophils # Seg Neutrophils # Man Lymphocytes # (Manual) PT INR POC ABG pH POC ABG pCO2 POC ABG pO2 Potassium Carbon Dioxide BUN Creatinine Glucose POC Glucose 133 H 121 H 106 H Calcium AST Total Creatine Kinase CK-MB (CK-2) Troponin T NT-Pro-B Natriuret Pep Total Protein Albumin HDL Cholesterol 01/17/19 01/18/19 01/18/19 23:35 04:21 04:21 WBC RBC 3.27 L Hgb 9.6 L Hct 29.9 L MCV RDW Plt Count 79 L Lymph % (Auto) 6.0 L Lymph # 0.5 L Seg Neutrophils % 89.2 H Seg Neuts % (Manual) Lymphocytes % (Manual) Seg Neutrophils # 8.1 H Seg Neutrophils # Man Lymphocytes # (Manual) PT INR POC ABG pH POC ABG pCO2 POC ABG pO2 Potassium Carbon Dioxide BUN 28 H Creatinine 1.3 H Glucose 129 H POC Glucose 121 H Calcium AST 120 H Total Creatine Kinase CK-MB (CK-2) Troponin T NT-Pro-B Natriuret Pep Total Protein 5.1 L Albumin 3.0 L HDL Cholesterol 01/18/19 01/18/19 01/18/19 04:21 04:36 05:43 WBC RBC Hgb Hct MCV RDW Plt Count Lymph % (Auto) Lymph # Seg Neutrophils % Seg Neuts % (Manual) Lymphocytes % (Manual) Seg Neutrophils # Seg Neutrophils # Man Lymphocytes # (Manual) PT INR POC ABG pH 7.485 H POC ABG pCO2 31.0 L POC ABG pO2 126 H Potassium Carbon Dioxide BUN 28 H Creatinine 1.3 H Glucose 128 H POC Glucose 142 H Calcium AST Total Creatine Kinase CK-MB (CK-2) Troponin T NT-Pro-B Natriuret Pep Total Protein Albumin HDL Cholesterol 01/18/19 01/18/19 01/18/19 12:04 18:16 20:47 WBC RBC Hgb Hct MCV RDW Plt Count Lymph % (Auto) Lymph # Seg Neutrophils % Seg Neuts % (Manual) Lymphocytes % (Manual) Seg Neutrophils # Seg Neutrophils # Man Lymphocytes # (Manual) PT INR POC ABG pH 7.489 H POC ABG pCO2 32.8 L POC ABG pO2 Potassium Carbon Dioxide BUN Creatinine Glucose POC Glucose 113 H 119 H Calcium AST Total Creatine Kinase CK-MB (CK-2) Troponin T NT-Pro-B Natriuret Pep Total Protein Albumin HDL Cholesterol 01/19/19 01/19/19 00:40 05:35 WBC RBC Hgb Hct MCV RDW Plt Count Lymph % (Auto) Lymph # Seg Neutrophils % Seg Neuts % (Manual) Lymphocytes % (Manual) Seg Neutrophils # Seg Neutrophils # Man Lymphocytes # (Manual) PT INR POC ABG pH POC ABG pCO2 POC ABG pO2 Potassium Carbon Dioxide BUN Creatinine Glucose POC Glucose 137 H 157 H Calcium AST Total Creatine Kinase CK-MB (CK-2) Troponin T NT-Pro-B Natriuret Pep Total Protein Albumin HDL Cholesterol Chest x-ray: image reviewed (cardiomegaly) Allied health notes reviewed: nursing
--- NOTE | 2019-01-19 10:28 | Progress Note ---
Assessment and Plan Currently stable cardiac status. Continue current cardiac management. Per neurology - impression no definable evidence of recovery, no seizures on recent EEG, plan CT of brain tuesday as prognostic matter. Will follow peripherally over the weekend. The patient has been seen in conjunction with Dr. Mercado who agrees with assessment and plan of care. 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 in SR on tele. Objective Last Vital Signs Temp 101.0 F H 01/19/19 07:56 Pulse 87 01/19/19 09:43 Resp 20 01/19/19 09:43 BP 123/64 01/19/19 09:09 Pulse Ox 100 01/19/19 09:43 - Physical Examination General: Other (intubated, unresponsive) Cardiac: Positive: Reg Rate and Rhythm, S1/S2 Lungs: Positive: Decreased Breath Sounds Neuro: Positive: Other (withdraws from pain) Extremities: Absent: edema - Imaging and Cardiology EKG: image reviewed Echo: report reviewed (moderate global hypokinesis of LV, EF 35-40%, impaired LV diastolic filling, moderate MR and TR, moderate pulm htn.), other Chamber hypertrophy or enlargement: left ventricular hypertro Repolarization changes or abnormalities: ST or T wave suggestive of ischemia - Allied health notes Allied health notes reviewed: nursing
--- NOTE | 2019-01-19 11:52 | Progress Note ---
Assessment and Plan Assessment and plan: The high probability of a clinically significant, sudden or life threatening deterioration of the [] system(s) required my full and direct attention, intervention and personal management. The aggregate critical care time was [] minutes. This time is in addition to time spent performing reported procedures but includes the following: [x] Data Review and interpretation [x] Patient assessment and monitoring of vital signs [x] Documentation [x] Medication orders and management - Patient Problems (1) Altered mental status Current Visit: Yes Status: Acute Plan to address problem: EEG which showed minimal brain activity. Patient remains a comatose state. Neurology input appreciated. Scheduled for follow-up CT of head. Overall prognosis remains poor. Discussed with family about PEG and trach. (2) CHF (congestive heart failure) Current Visit: Yes Status: Acute Plan to address problem: At present fairly well compensated ejection fraction 35%. Continue beta leah and diaphoresis when necessary. (3) COPD (chronic obstructive pulmonary disease) with emphysema Current Visit: Yes Status: Acute Plan to address problem: Maintenance intubated acute respiratory failure. Complicated by aspiration pneumonia. Patient on Unasyn and vancomycin. (4) Respiratory arrest Current Visit: Yes Status: Acute Plan to address problem: Acute respiratory failure secondary to cardiorespiratory arrest now aspiration pneumonia continue current IV antibiotics. Appears to be very difficult wean now. Patient not as responsive will most likely require PEG tube and tracheostomy. [place] with daughter about procedure granddaughter. (5) CAD S/P percutaneous coronary angioplasty Current Visit: Yes Status: Chronic Plan to address problem: Patient without any chest pain. Minimal response to EEG prognosis remains extremely poor. (6) CKD (chronic kidney disease) Current Visit: Yes Status: Chronic Plan to address problem: Acute on chronic kidney disease appears to be improving this particular time. Continue present hydration of electrolytes. History Interval history: Patient remains encephalopathic. Did not squeeze hand for me. Granddaughter at the bedside. All questions and concerns answered to her satisfaction. Understand her prognosis. Agreeing to proceed with PEG trach. [place] was complicated over the p.m. Unable to wean from vent. Hospitalist Physical - Constitutional Vitals: Temp Pulse Resp BP Pulse Ox 101.0 F H 84 27 H 105/58 99 01/19/19 07:56 01/19/19 11:30 01/19/19 11:30 01/19/19 11:30 01/19/19 11:30 General appearance: Present: no acute distress, well-nourished, other (intubated) - Neck Neck: Present: supple - Respiratory Respiratory effort: normal Respiratory: bilateral: diminished, rales - Cardiovascular Rhythm: regular Heart Sounds: Present: systolic murmur - Extremities Extremities: no ischemia, pulses intact, No edema, normal temperature - Abdominal General gastrointestinal: soft, hypoactive bowel sounds, no hepatomegaly, no splenomegaly, no mass - Integumentary Integumentary: Present: clear. Absent: jaundice, rash, clammy - Neurologic Neurologic: focal deficits Results - Labs CBC & Chem 7: 01/18/19 04:21 01/18/19 04:21 Labs: Laboratory Last Values WBC 9.1 K/mm3 (4.5-11.0) 01/18/19 04:21 RBC 3.27 M/mm3 (3.65-5.03) L 01/18/19 04:21 Hgb 9.6 gm/dl (10.1-14.3) L 01/18/19 04:21 Hct 29.9 % (30.3-42.9) L 01/18/19 04:21 MCV 88 fl (79-97) 01/18/19 04:21 MCH 29 pg (28-32) 01/18/19 04:21 MCHC 34 % (30-34) 01/18/19 04:21 RDW 14.8 % (13.2-15.2) 01/18/19 04:21 Plt Count 79 K/mm3 (140-440) L 01/18/19 04:21 Lymph % (Auto) 6.0 % (13.4-35.0) L 01/18/19 04:21 [place] % (Auto) 4.5 % (0.0-7.3) 01/18/19 04:21 Eos % (Auto) 0.1 % (0.0-4.3) 01/18/19 04:21 Baso % (Auto) 0.2 % (0.0-1.8) 01/18/19 04:21 Lymph # 0.5 K/mm3 (1.2-5.4) L 01/18/19 04:21 [place] # 0.4 K/mm3 (0.0-0.8) 01/18/19 04:21 Eos # 0.0 K/mm3 (0.0-0.4) 01/18/19 04:21 Baso # 0.0 K/mm3 (0.0-0.1) 01/18/19 04:21 Add Manual Diff Complete 01/16/19 04:16 Total Counted 100 01/16/19 04:16 Seg Neutrophils % 89.2 % (40.0-70.0) H 01/18/19 04:21 Seg Neuts % (Manual) 74.0 % (40.0-70.0) H 01/16/19 04:16 Band Neutrophils % 22.0 % 01/16/19 04:16 Lymphocytes % (Manual) 2.0 % (13.4-35.0) L 01/16/19 04:16 Reactive Lymphs % (Man) 0 % 01/16/19 04:16 Monocytes % (Manual) 2.0 % (0.0-7.3) 01/16/19 04:16 Eosinophils % (Manual) 0 % (0.0-4.3) 01/16/19 04:16 Basophils % (Manual) 0 % (0.0-1.8) 01/16/19 04:16 Metamyelocytes % 0 % 01/16/19 04:16 Myelocytes % 0 % 01/16/19 04:16 Promyelocytes % 0 % 01/16/19 04:16 Blast Cells % 0 % 01/16/19 04:16 Nucleated RBC % Not Reportable 01/16/19 04:16 Seg Neutrophils # 8.1 K/mm3 (1.8-7.7) H 01/18/19 04:21 Seg Neutrophils # Man 8.4 K/mm3 (1.8-7.7) H 01/16/19 04:16 Band Neutrophils # 2.5 K/mm3 01/16/19 04:16 Lymphocytes # (Manual) 0.2 K/mm3 (1.2-5.4) L 01/16/19 04:16 Abs React Lymphs (Man) 0.0 K/mm3 01/16/19 04:16 Monocytes # (Manual) 0.2 K/mm3 (0.0-0.8) 01/16/19 04:16 Eosinophils # (Manual) 0.0 K/mm3 (0.0-0.4) 01/16/19 04:16 Basophils # (Manual) 0.0 K/mm3 (0.0-0.1) 01/16/19 04:16 Metamyelocytes # 0.0 K/mm3 01/16/19 04:16 Myelocytes # 0.0 K/mm3 01/16/19 04:16 Promyelocytes # 0.0 K/mm3 01/16/19 04:16 Blast Cells # 0.0 K/mm3 01/16/19 04:16 WBC Morphology Not Reportable 01/16/19 04:16 Hypersegmented Neuts Not Reportable 01/16/19 04:16 Hyposegmented Neuts Not Reportable 01/16/19 04:16 Hypogranular Neuts Not Reportable 01/16/19 04:16 Smudge Cells Not Reportable 01/16/19 04:16 Toxic Granulation Not Reportable 01/16/19 04:16 Toxic Vacuolation Not Reportable 01/16/19 04:16 Dohle Bodies Not Reportable 01/16/19 04:16 Pelger-Huet Anomaly Not Reportable 01/16/19 04:16 Cheryl Rods Not Reportable 01/16/19 04:16 Platelet Estimate Consistent w auto 01/16/19 04:16 Clumped Platelets Not Reportable 01/16/19 04:16 Plt Clumps, EDTA Not Reportable 01/16/19 04:16 Large Platelets Not Reportable 01/16/19 04:16 Giant Platelets Not Reportable 01/16/19 04:16 Platelet Satelliting Not Reportable 01/16/19 04:16 Plt Morphology Comment Not Reportable 01/16/19 04:16 RBC Morphology Normal 01/16/19 04:16 Dimorphic RBCs Not Reportable 01/16/19 04:16 Polychromasia Not Reportable 01/16/19 04:16 Hypochromasia Not Reportable 01/16/19 04:16 Poikilocytosis Not Reportable 01/16/19 04:16 Anisocytosis Not Reportable 01/16/19 04:16 Microcytosis Not Reportable 01/16/19 04:16 Macrocytosis Not Reportable 01/16/19 04:16 Spherocytes Not Reportable 01/16/19 04:16 Pappenheimer Bodies Not Reportable 01/16/19 04:16 Sickle Cells Not Reportable 01/16/19 04:16 Target Cells Not Reportable 01/16/19 04:16 Tear Drop Cells Not Reportable 01/16/19 04:16 Ovalocytes Not Reportable 01/16/19 04:16 Helmet Cells Not Reportable 01/16/19 04:16 [place]uria Bodies Not Reportable 01/16/19 04:16 [place] Rings Not Reportable 01/16/19 04:16 [place] Cells Not Reportable 01/16/19 04:16 Bite Cells Not Reportable 01/16/19 04:16 Crenated Cell Not Reportable 01/16/19 04:16 Elliptocytes Not Reportable 01/16/19 04:16 Acanthocytes (Spur) Not Reportable 01/16/19 04:16 Rouleaux Not Reportable 01/16/19 04:16 Hemoglobin C Crystals Not Reportable 01/16/19 04:16 Schistocytes Not Reportable 01/16/19 04:16 Malaria parasites Not Reportable 01/16/19 04:16 [place] Bodies Not Reportable 01/16/19 04:16 Hem Pathologist Commnt No 01/16/19 04:16 PT 19.7 Sec. (12.2-14.9) H 01/15/19 07:50 INR 1.56 (0.87-1.13) H 01/15/19 07:50 APTT 36.0 Sec. (24.2-36.6) 01/15/19 07:50 POC ABG pH 7.489 (7.35-7.45) H 01/18/19 20:47 POC ABG pCO2 32.8 (35-45) L 01/18/19 20:47 POC ABG pO2 91 (80-105) 01/18/19 20:47 POC ABG HCO3 25.0 (22-26 mml/L) 01/18/19 20:47 POC ABG Total CO2 26 (23-27mmol/L) 01/18/19 20:47 POC ABG O2 Sat 98 01/18/19 20:47 POC ABG Base Excess 2 ((-2) - (+3)mmol/L) 01/18/19 20:47 FiO2 25 % 01/18/19 20:47 Sodium 139 mmol/L (137-145) 01/18/19 04:21 Potassium 3.9 mmol/L (3.6-5.0) 01/18/19 04:21 Chloride 102.9 mmol/L (98-107) 01/18/19 04:21 Carbon Dioxide 22 mmol/L (22-30) 01/18/19 04:21 Anion Gap 18 mmol/L 01/18/19 04:21 BUN 28 mg/dL (7-17) H 01/18/19 04:21 Creatinine 1.3 mg/dL (0.7-1.2) H 01/18/19 04:21 Estimated GFR 48 ml/min 01/18/19 04:21 BUN/Creatinine Ratio 22 % 01/18/19 04:21 Glucose 128 mg/dL (65-100) H 01/18/19 04:21 POC Glucose 155 (70-105) H 01/19/19 11:39 Hemoglobin A1c 6.0 % (4-6) 01/15/19 11:53 Calcium 8.5 mg/dL (8.4-10.2) 01/18/19 04:21 Total Bilirubin 0.90 mg/dL (0.1-1.2) 01/18/19 04:21 AST 120 units/L (5-40) H 01/18/19 04:21 ALT 24 units/L (7-56) 01/18/19 04:21 Alkaline Phosphatase 48 units/L (35-129) 01/18/19 04:21 Total Creatine Kinase 1430 units/L (30-135) H 01/15/19 17:52 CK-MB (CK-2) 13.5 ng/mL (0.0-4.0) H 01/15/19 17:52 CK-MB (CK-2) Rel Index 0.9 (0-4) 01/15/19 17:52 Troponin T 0.036 ng/mL (0.00-0.029) H D 01/15/19 17:52 NT-Pro-B Natriuret Pep 5346 pg/mL (0-900) H 01/15/19 07:50 Total Protein 5.1 g/dL (6.3-8.2) L 01/18/19 04:21 Albumin 3.0 g/dL (3.9-5) L 01/18/19 04:21 Albumin/Globulin Ratio 1.4 % 01/18/19 04:21 Triglycerides 75 mg/dL (2-149) 01/15/19 17:52 Cholesterol 149 mg/dL (50-199) 01/15/19 17:52 LDL Cholesterol Direct 84 mg/dL (50-130) 01/15/19 17:52 HDL Cholesterol 65 mg/dL (40-59) H 01/15/19 17:52 Cholesterol/HDL Ratio 2.29 % 01/15/19 17:52 Urine Opiates Screen Presumptive negative 01/15/19 16:30 Urine Methadone Screen Presumptive negative 01/15/19 16:30 Ur Barbiturates Screen Presumptive negative 01/15/19 16:30 Ur Phencyclidine Scrn Presumptive negative 01/15/19 16:30 Ur Amphetamines Screen Presumptive negative 01/15/19 16:30 U Benzodiazepines Scrn Presumptive negative 01/15/19 16:30 Urine Cocaine Screen Presumptive negative 01/15/19 16:30 U Marijuana (THC) Screen Presumptive negative 01/15/19 16:30 Drugs of Abuse Note Disclamer 01/15/19 16:30 C. difficile Tox (PCR) Negative (Negative) 01/16/19 00:00 Active Medications - Current Medications Current Medications: Generic Name Dose Route Start Last Admin Trade Name Freq PRN Reason Stop Dose Admin Acetaminophen 650 mg 01/16/19 09:37 01/19/19 06:58 Tylenol PO 650 mg Q4H PRN Administration Fever >101 Albuterol/Ipratropium 1 ampul 01/15/19 14:00 01/19/19 08:58 Duoneb *Not For Prn Use* IH 1 ampul Q6HRT [facility] Administration Lipase/Protease/Amylase 1 each 01/15/19 14:37 Pancredelia Siddiqui 10,500 Unit FEEDTUBE PRN PRN For Clogged Feeding Tube Aspirin 81 mg 01/16/19 10:00 01/19/19 09:10 Baby Aspirin PO 81 mg QDAY DEON Administration Atorvastatin Calcium 20 mg 01/16/19 22:00 01/18/19 21:23 Lipitor PO 20 mg QHS DEON Administration Carvedilol 6.25 mg 01/16/19 12:00 01/19/19 09:09 Coreg PO 6.25 mg BID DEON Administration Famotidine 20 mg 01/15/19 14:00 01/19/19 09:10 Pepcid IV 20 mg DAILY DEON Administration Fondaparinux 2.5 mg 01/20/19 10:00 Arixtra SUB-Q QDAY DEON Furosemide 20 mg 01/19/19 18:00 Lasix PO 0600,1800 DEON Ampicillin Sodium/Sulbactam Sodium 3 gm in 100 mls @ 200 mls/hr 01/16/19 10:00 01/19/19 09:10 Unasyn/Ns 3 Gm/100 Ml IV 200 mls/hr Q12HR DEON Administration Levetiracetam 750 mg 01/18/19 10:00 01/19/19 09:09 Keppra PO 750 mg BID DEON Administration Simple Syrup 15 ml 01/15/19 14:37 Simple Syrup FEEDTUBE PRN PRN Hypoglycemia Simple Syrup 30 ml 01/15/19 14:37 Simple Syrup FEEDTUBE PRN PRN Hypoglycemia Sodium Bicarbonate 325 mg 01/15/19 14:37 Sodium Bicarbonate FEEDTUBE PRN PRN For Clogged Feeding Tube Sodium Chloride 10 ml 01/15/19 22:00 01/19/19 09:10 Sodium Chloride Flush Syringe 10 Ml IV 10 ml BID DEON Administration Sodium Chloride 10 ml 01/15/19 10:34 Sodium Chloride Flush Syringe 10 Ml IV PRN PRN LINE FLUSH Nutrition/Malnutrition Assess - Dietary Evaluation Nutrition/Malnutrition Findings: Nutrition Notes Start: 01/15/19 14:28 Freq: Status: Active Protocol: Document 01/18/19 10:28 EB (Rec: 01/18/19 10:30 [email or web address]) Co-Sign 01/18/19 10:28 LP Nutrition Notes Initial or Follow up Reassessment Other Pertinent Diagnosis s/p cardiorespiratory arrest ( at home) Current Diet Glucerna 1.2 at 50 mL/hr Labs/Tests Reviewed Pertinent Medications Dopamine gtt Height 5 ft 4 in Weight 49.3 kg [place] Body Weight (kg) 54.54 BMI 18.6 Subjective/Other Information TF running at goal rate at time of visit and RN states no residuals. Percent of energy/protein needs met: 97%/100% Burn Absent Trauma Absent #1 Nutrition Diagnosis Inadequate oral intake Diagnosis Progress(for reassessment Continues documentation) Is patient on ventilator? Yes Is Patient Ambulatory and/or Out of Bed No REE-([place]-St. Jeor-confined to bed) 1174.212 Kcal/Kg value to use for calculation 30 Approximate Energy Requirements Using 1479 kcal/Kg Calculation Used for Recommendations Kcal/kg Additional Notes Pro needs 1.2-2g/k-100g/ day Fluid needs 1ml/kcal Nutrition Intervention Nutrition Support: Glucerna 1.2 at 50ml/hr with 80ml water flush q4h. Kcal 1,440 Protein (gm) 72 Carbohydrates (gm) 137 Fluid (mL) 966 Fiber (gm) 19 Goal #1 TF tolerance Goal #2 TF to continue to meet 100% energy and pro needs Goal #3 Wt maintenance and/or gain Anticipated Discharge Needs: Unable to identify at this time Follow-Up By: 01/25/19 Additional Comments F/U: TF tolerance
[2019-01-19] MEDS ORDERED: PROVIGIL PO STA (13:16)
--- NOTE | 2019-01-19 13:46 | Progress Note ---
Subjective Date of service: 01/19/19 Principal diagnosis: OOH cardiac arrest; Acute hypoxemic-hypercapnic Resp failure; PNA Interval history: did speak to the daughter at the bedside advised her of prognosis Thanks Objective - Vital Sign Vital Signs - 12hr 01/19/19 01/19/19 01/19/19 01:46 02:00 02:16 Temperature Pulse Rate 88 88 92 H Pulse Rate [ Anterior Bilateral Throughout] Pulse Rate [ From Monitor] Respiratory 25 H 26 H 25 H Rate Respiratory Rate [Anterior Bilateral Throughout] Blood Pressure 147/74 143/74 143/74 O2 Sat by Pulse 99 99 100 Oximetry 01/19/19 01/19/19 01/19/19 02:30 02:46 03:00 Temperature Pulse Rate 95 H 96 H 97 H Pulse Rate [ Anterior Bilateral Throughout] Pulse Rate [ From Monitor] Respiratory 24 22 23 Rate Respiratory Rate [Anterior Bilateral Throughout] Blood Pressure 132/76 132/76 138/73 O2 Sat by Pulse 99 100 98 Oximetry 01/19/19 01/19/19 01/19/19 03:03 03:11 03:16 Temperature Pulse Rate 98 H 96 H Pulse Rate [ 98 H 95 H Anterior Bilateral Throughout] Pulse Rate [ From Monitor] Respiratory 23 Rate Respiratory 21 23 Rate [Anterior Bilateral Throughout] Blood Pressure 138/78 138/73 O2 Sat by Pulse 99 100 Oximetry 01/19/19 01/19/19 01/19/19 03:20 03:30 03:46 Temperature 102.9 F H Pulse Rate 96 H 97 H Pulse Rate [ Anterior Bilateral Throughout] Pulse Rate [ From Monitor] Respiratory 24 24 Rate Respiratory Rate [Anterior Bilateral Throughout] Blood Pressure 131/72 131/72 O2 Sat by Pulse 99 Oximetry 01/19/19 01/19/19 01/19/19 04:00 04:16 04:30 Temperature Pulse Rate 96 H 98 H 96 H Pulse Rate [ Anterior Bilateral Throughout] Pulse Rate [ 84 From Monitor] Respiratory 23 24 22 Rate Respiratory Rate [Anterior Bilateral Throughout] Blood Pressure 131/72 131/72 126/73 O2 Sat by Pulse 98 99 98 Oximetry 01/19/19 01/19/19 01/19/19 04:46 05:00 05:16 Temperature Pulse Rate 101 H 97 H 100 H Pulse Rate [ Anterior Bilateral Throughout] Pulse Rate [ From Monitor] Respiratory 23 22 22 Rate Respiratory Rate [Anterior Bilateral Throughout] Blood Pressure 126/73 128/71 128/71 O2 Sat by Pulse 99 97 99 Oximetry 01/19/19 01/19/19 01/19/19 05:30 05:46 06:00 Temperature Pulse Rate 97 H 100 H 100 H Pulse Rate [ Anterior Bilateral Throughout] Pulse Rate [ From Monitor] Respiratory 22 19 21 Rate Respiratory Rate [Anterior Bilateral Throughout] Blood Pressure 130/66 130/66 127/69 O2 Sat by Pulse 99 97 Oximetry 01/19/19 01/19/19 01/19/19 06:16 06:30 06:46 Temperature Pulse Rate 101 H 101 H 101 H Pulse Rate [ Anterior Bilateral Throughout] Pulse Rate [ From Monitor] Respiratory 20 17 23 Rate Respiratory Rate [Anterior Bilateral Throughout] Blood Pressure 127/69 120/68 120/68 O2 Sat by Pulse 99 98 99 Oximetry 01/19/19 01/19/19 01/19/19 07:00 07:16 07:30 Temperature Pulse Rate 102 H 100 H 99 H Pulse Rate [ Anterior Bilateral Throughout] Pulse Rate [ From Monitor] Respiratory 20 24 20 Rate Respiratory Rate [Anterior Bilateral Throughout] Blood Pressure 119/64 119/64 112/63 O2 Sat by Pulse 99 97 Oximetry 01/19/19 01/19/19 01/19/19 07:46 07:56 08:00 Temperature 101.0 F H Pulse Rate 98 H 97 H Pulse Rate [ Anterior Bilateral Throughout] Pulse Rate [ From Monitor] Respiratory 20 21 Rate Respiratory Rate [Anterior Bilateral Throughout] Blood Pressure 112/63 105/56 O2 Sat by Pulse 100 99 Oximetry 01/19/19 01/19/19 01/19/19 08:16 08:30 08:46 Temperature Pulse Rate 97 H 94 H 92 H Pulse Rate [ Anterior Bilateral Throughout] Pulse Rate [ From Monitor] Respiratory 20 18 20 Rate Respiratory Rate [Anterior Bilateral Throughout] Blood Pressure 105/56 100/60 100/60 O2 Sat by Pulse 100 100 Oximetry 01/19/19 01/19/19 01/19/19 08:59 09:00 09:05 Temperature Pulse Rate 91 H 96 H Pulse Rate [ 93 H Anterior Bilateral Throughout] Pulse Rate [ From Monitor] Respiratory 20 Rate Respiratory 17 Rate [Anterior Bilateral Throughout] Blood Pressure 123/64 123/64 O2 Sat by Pulse 100 98 Oximetry 01/19/19 01/19/19 01/19/19 09:09 09:15 09:16 Temperature Pulse Rate 91 H 90 Pulse Rate [ 87 Anterior Bilateral Throughout] Pulse Rate [ From Monitor] Respiratory 20 Rate Respiratory 20 Rate [Anterior Bilateral Throughout] Blood Pressure 123/64 123/64 O2 Sat by Pulse 100 Oximetry 01/19/19 01/19/19 01/19/19 09:30 09:43 09:46 Temperature Pulse Rate 85 87 83 Pulse Rate [ Anterior Bilateral Throughout] Pulse Rate [ From Monitor] Respiratory 20 20 24 Rate Respiratory Rate [Anterior Bilateral Throughout] Blood Pressure 121/70 123/64 O2 Sat by Pulse 100 100 100 Oximetry 01/19/19 01/19/19 01/19/19 10:00 10:16 10:30 Temperature Pulse Rate 83 83 82 Pulse Rate [ Anterior Bilateral Throughout] Pulse Rate [ From Monitor] Respiratory 24 24 26 H Rate Respiratory Rate [Anterior Bilateral Throughout] Blood Pressure 111/61 111/61 97/54 O2 Sat by Pulse 97 98 97 Oximetry 01/19/19 01/19/19 01/19/19 10:46 11:00 11:16 Temperature Pulse Rate 85 84 85 Pulse Rate [ Anterior Bilateral Throughout] Pulse Rate [ From Monitor] Respiratory 25 H 25 H 25 H Rate Respiratory Rate [Anterior Bilateral Throughout] Blood Pressure 97/54 104/59 104/59 O2 Sat by Pulse 98 98 99 Oximetry 01/19/19 01/19/19 01/19/19 11:30 12:00 12:15 Temperature 99.4 F Pulse Rate 84 87 Pulse Rate [ Anterior Bilateral Throughout] Pulse Rate [ From Monitor] Respiratory 27 H 27 H Rate Respiratory Rate [Anterior Bilateral Throughout] Blood Pressure 105/58 101/57 O2 Sat by Pulse 99 99 Oximetry - Laboratory Findings CBC and BMP: 01/18/19 04:21 01/18/19 04:21 Abnormal Lab Findings: Abnormal Labs 01/15/19 01/15/19 01/15/19 07:50 07:50 07:50 WBC RBC Hgb Hct MCV 99 H RDW 16.7 H Plt Count 122 L Lymph % (Auto) Lymph # Seg Neutrophils % Seg Neuts % (Manual) Lymphocytes % (Manual) Seg Neutrophils # Seg Neutrophils # Man Lymphocytes # (Manual) PT 19.7 H INR 1.56 H POC ABG pH POC ABG pCO2 POC ABG pO2 Potassium Carbon Dioxide 11 L BUN Creatinine 1.4 H Glucose 268 H POC Glucose Calcium AST 57 H Total Creatine Kinase CK-MB (CK-2) Troponin T NT-Pro-B Natriuret Pep 5346 H Total Protein Albumin 3.6 L HDL Cholesterol 01/15/19 01/15/19 01/15/19 09:56 11:53 17:52 WBC RBC Hgb Hct MCV RDW Plt Count Lymph % (Auto) Lymph # Seg Neutrophils % Seg Neuts % (Manual) Lymphocytes % (Manual) Seg Neutrophils # Seg Neutrophils # Man Lymphocytes # (Manual) PT INR POC ABG pH 7.186 L POC ABG pCO2 46.4 H POC ABG pO2 Potassium Carbon Dioxide BUN Creatinine Glucose POC Glucose Calcium AST Total Creatine Kinase 683 H 1430 H CK-MB (CK-2) 9.5 H 13.5 H Troponin T 0.036 H D NT-Pro-B Natriuret Pep Total Protein Albumin HDL Cholesterol 65 H 01/15/19 01/15/19 01/16/19 18:31 21:46 02:14 WBC RBC Hgb Hct MCV RDW Plt Count Lymph % (Auto) Lymph # Seg Neutrophils % Seg Neuts % (Manual) Lymphocytes % (Manual) Seg Neutrophils # Seg Neutrophils # Man Lymphocytes # (Manual) PT INR POC ABG pH POC ABG pCO2 31.8 L POC ABG pO2 167 H Potassium Carbon Dioxide BUN Creatinine Glucose POC Glucose 134 H 136 H Calcium AST Total Creatine Kinase CK-MB (CK-2) Troponin T NT-Pro-B Natriuret Pep Total Protein Albumin HDL Cholesterol 01/16/19 01/16/19 01/16/19 04:16 04:16 05:05 WBC 11.4 H RBC Hgb Hct MCV RDW Plt Count 105 L Lymph % (Auto) Lymph # Seg Neutrophils % Seg Neuts % (Manual) 74.0 H Lymphocytes % (Manual) 2.0 L Seg Neutrophils # Seg Neutrophils # Man 8.4 H Lymphocytes # (Manual) 0.2 L PT INR POC ABG pH 7.458 H POC ABG pCO2 31.4 L POC ABG pO2 135 H Potassium 3.3 L Carbon Dioxide 21 L D BUN 24 H Creatinine 1.5 H Glucose 141 H POC Glucose Calcium 8.1 L AST 71 H Total Creatine Kinase CK-MB (CK-2) Troponin T NT-Pro-B Natriuret Pep Total Protein 6.2 L Albumin 3.5 L HDL Cholesterol 01/16/19 01/16/19 01/16/19 05:24 13:42 21:08 WBC RBC Hgb Hct MCV RDW Plt Count Lymph % (Auto) Lymph # Seg Neutrophils % Seg Neuts % (Manual) Lymphocytes % (Manual) Seg Neutrophils # Seg Neutrophils # Man Lymphocytes # (Manual) PT INR POC ABG pH POC ABG pCO2 POC ABG pO2 Potassium Carbon Dioxide BUN Creatinine Glucose POC Glucose 137 H 129 H 122 H Calcium AST Total Creatine Kinase CK-MB (CK-2) Troponin T NT-Pro-B Natriuret Pep Total Protein Albumin HDL Cholesterol 01/17/19 01/17/19 01/17/19 02:18 04:23 05:13 WBC RBC Hgb Hct MCV RDW Plt Count Lymph % (Auto) Lymph # Seg Neutrophils % Seg Neuts % (Manual) Lymphocytes % (Manual) Seg Neutrophils # Seg Neutrophils # Man Lymphocytes # (Manual) PT INR POC ABG pH 7.479 H POC ABG pCO2 30.0 L POC ABG pO2 141 H Potassium Carbon Dioxide BUN Creatinine Glucose POC Glucose 139 H 128 H Calcium AST Total Creatine Kinase CK-MB (CK-2) Troponin T NT-Pro-B Natriuret Pep Total Protein Albumin HDL Cholesterol 01/17/19 01/17/19 01/17/19 10:22 15:59 18:45 WBC RBC Hgb Hct MCV RDW Plt Count Lymph % (Auto) Lymph # Seg Neutrophils % Seg Neuts % (Manual) Lymphocytes % (Manual) Seg Neutrophils # Seg Neutrophils # Man Lymphocytes # (Manual) PT INR POC ABG pH POC ABG pCO2 POC ABG pO2 Potassium Carbon Dioxide BUN Creatinine Glucose POC Glucose 133 H 121 H 106 H Calcium AST Total Creatine Kinase CK-MB (CK-2) Troponin T NT-Pro-B Natriuret Pep Total Protein Albumin HDL Cholesterol 01/17/19 01/18/19 01/18/19 23:35 04:21 04:21 WBC RBC 3.27 L Hgb 9.6 L Hct 29.9 L MCV RDW Plt Count 79 L Lymph % (Auto) 6.0 L Lymph # 0.5 L Seg Neutrophils % 89.2 H Seg Neuts % (Manual) Lymphocytes % (Manual) Seg Neutrophils # 8.1 H Seg Neutrophils # Man Lymphocytes # (Manual) PT INR POC ABG pH POC ABG pCO2 POC ABG pO2 Potassium Carbon Dioxide BUN 28 H Creatinine 1.3 H Glucose 129 H POC Glucose 121 H Calcium AST 120 H Total Creatine Kinase CK-MB (CK-2) Troponin T NT-Pro-B Natriuret Pep Total Protein 5.1 L Albumin 3.0 L HDL Cholesterol 01/18/19 01/18/19 01/18/19 04:21 04:36 05:43 WBC RBC Hgb Hct MCV RDW Plt Count Lymph % (Auto) Lymph # Seg Neutrophils % Seg Neuts % (Manual) Lymphocytes % (Manual) Seg Neutrophils # Seg Neutrophils # Man Lymphocytes # (Manual) PT INR POC ABG pH 7.485 H POC ABG pCO2 31.0 L POC ABG pO2 126 H Potassium Carbon Dioxide BUN 28 H Creatinine 1.3 H Glucose 128 H POC Glucose 142 H Calcium AST Total Creatine Kinase CK-MB (CK-2) Troponin T NT-Pro-B Natriuret Pep Total Protein Albumin HDL Cholesterol 01/18/19 01/18/19 01/18/19 12:04 18:16 20:47 WBC RBC Hgb Hct MCV RDW Plt Count Lymph % (Auto) Lymph # Seg Neutrophils % Seg Neuts % (Manual) Lymphocytes % (Manual) Seg Neutrophils # Seg Neutrophils # Man Lymphocytes # (Manual) PT INR POC ABG pH 7.489 H POC ABG pCO2 32.8 L POC ABG pO2 Potassium Carbon Dioxide BUN Creatinine Glucose POC Glucose 113 H 119 H Calcium AST Total Creatine Kinase CK-MB (CK-2) Troponin T NT-Pro-B Natriuret Pep Total Protein Albumin HDL Cholesterol 01/19/19 01/19/19 01/19/19 00:40 05:35 11:39 WBC RBC Hgb Hct MCV RDW Plt Count Lymph % (Auto) Lymph # Seg Neutrophils % Seg Neuts % (Manual) Lymphocytes % (Manual) Seg Neutrophils # Seg Neutrophils # Man Lymphocytes # (Manual) PT INR POC ABG pH POC ABG pCO2 POC ABG pO2 Potassium Carbon Dioxide BUN Creatinine Glucose POC Glucose 137 H 157 H 155 H Calcium AST Total Creatine Kinase CK-MB (CK-2) Troponin T NT-Pro-B Natriuret Pep Total Protein Albumin HDL Cholesterol
--- NOTE | 2019-01-19 15:59 | Consultation ---
History of Present Illness - Reason for Consult Consult date: 01/19/19 pneumonia Requesting physician: ASHLEIGH LAUREANO - History of Present Illness Late entry 01/19/2019 73 y/o female with a history of diastolic CHF, cardiomyopathy, CAD s/p sten, pericardial effusion requiring pericardiocentesis (2012), hypertension, COPD with emphysema, CKD and gout: admitted on 01/15/19 after a cardiac arrest. Patient is currently intubated and unresponsive unable to obtain history. Per records, family member reported she was experiencing increasing SOB. When f jane member arrived, he found her unresponsive and not breathing on floor and began CPR. EMS found her in [facility] PEA and she received two rounds of epi and CPR. Family also reports she has had worsening SOB since . In the ED, temp 99.3-100.2, HR 113, R 14, O2 sat 100%, BP 136/63. WBC 8.2, Plat 122. Creat 1.4. Glucose 269. LFTs AST 57. UDS neg. C diff negative. Stool culture 01/15/2019 no growth. Blood culture 01/15/2019 no growth. Blood culture 01/20/2019 no growth today. Trachea asp culture 01/15/[address] chest mild CHF. CT head chronic changes. Review of Systems: unable to obtain Past History Past Medical History: CAD (stent placement), COPD, heart failure, hypertension, stroke, other (Emphesema) Past Surgical History: PTCA Social history: Lives alone, smoking, alcohol abuse (Drinks alcohol daily), full code Family history: CAD, hypertension Medications and Allergies Allergies Allergy/AdvReac Type Severity Reaction Status Date / Time enoxaparin AdvReac Unknown Verified 01/19/19 11:02 Home Medications Medication Instructions Recorded Confirmed Last Taken Type AtorvaSTATin [Lipitor] 20 mg PO QHS 01/15/19 01/15/19 Unknown History Carvedilol [Coreg] 25 mg PO DAILY 01/15/19 01/15/19 Unknown History Furosemide [Lasix] 80 mg PO QWEEK 01/15/19 01/15/19 Unknown History Irbesartan 150 mg PO DAILY 01/15/19 01/15/19 Unknown History amLODIPine [Norvasc] 10 mg PO DAILY 01/15/19 01/15/19 Unknown History Active Meds: Active Medications Acetaminophen (Tylenol) 650 mg PO Q4H PRN PRN Reason: Fever >101 Last Admin: 01/19/19 06:58 Dose: 650 mg Documented by: Albuterol/Ipratropium (Duoneb *Not For Prn Use*) 1 ampul IH Q6HRT [facility] Last Admin: 01/19/19 14:40 Dose: 1 ampul Documented by: Lipase/Protease/Amylase (Carie Siddiqui 10,500 Unit) 1 each FEEDTUBE PRN PRN PRN Reason: For Clogged Feeding Tube Aspirin (Baby Aspirin) 81 mg PO QDAY [facility] Last Admin: 01/19/19 09:10 Dose: 81 mg Documented by: Atorvastatin Calcium (Lipitor) 20 mg PO QHS [facility] Last Admin: 01/18/19 21:23 Dose: 20 mg Documented by: Carvedilol (Coreg) 6.25 mg PO BID [facility] Last Admin: 01/19/19 09:09 Dose: 6.25 mg Documented by: Famotidine (Pepcid) 20 mg IV DAILY [facility] Last Admin: 01/19/19 09:10 Dose: 20 mg Documented by: Fondaparinux (Arixtra) 2.5 mg SUB-Q QDAY [facility] Furosemide (Lasix) 20 mg PO 0600,1800 [facility] Ampicillin Sodium/Sulbactam Sodium (Unasyn/Ns 3 Gm/100 Ml) 3 gm in 100 mls @ 200 mls/hr IV Q12HR [facility] Last Admin: 01/19/19 09:10 Dose: 200 mls/hr Documented by: Levetiracetam (Keppra) 750 mg PO BID [facility] Last Admin: 01/19/19 09:09 Dose: 750 mg Documented by: Modafinil (Provigil) 100 mg PO QAM [facility] Simple Syrup (Simple Syrup) 15 ml FEEDTUBE PRN PRN PRN Reason: Hypoglycemia Simple Syrup (Simple Syrup) 30 ml FEEDTUBE PRN PRN PRN Reason: Hypoglycemia Sodium Bicarbonate (Sodium Bicarbonate) 325 mg FEEDTUBE PRN PRN PRN Reason: For Clogged Feeding Tube Sodium Chloride (Sodium Chloride Flush Syringe 10 Ml) 10 ml IV BID [facility] Last Admin: 01/19/19 09:10 Dose: 10 ml Documented by: Sodium Chloride (Sodium Chloride Flush Syringe 10 Ml) 10 ml IV PRN PRN PRN Reason: LINE FLUSH Physical Examination - Physical Exam Narrative exam: General appearance: intubated on CPAP lethargic Eyes: anicteric sclerae, moist conjunctivae; no lid-lag; PERRLA HENT: Atraumatic; oropharynx +ETT +OGT Neck: Trachea midline; supple, no thyromegaly or lymphadenopathy Lungs: scattered olman rhonchi CV: RRR Abdomen: Soft, non-tender; no masses or hepatosplenomegaly Extremities:olman edema Skin: Normal temperature, turgor and texture; no rash, ulcers or subcutaneous nodules Psych: no agitated. Neuro: lethragic - Constitutional Vitals: Vital Signs Temp Pulse Resp BP Pulse Ox 99.4 F 90 26 H 115/61 97 01/19/19 12:00 01/19/19 14:54 01/19/19 14:54 01/19/19 14:46 01/19/19 14:46 Temperature -Last 24 Hours Temperature 99.4 F Temperature 101.0 F Temperature 102.9 F Temperature 98.4 F Temperature 97.8 F Temperature 101.0 F Results - Labs CBC & Chem 7: 01/18/19 04:21 01/18/19 04:21 Labs: Abnormal lab results 01/18/19 01/18/19 01/19/19 Range/Units 18:16 20:47 00:40 POC ABG pH 7.489 H (7.35-7.45) POC ABG pCO2 32.8 L (35-45) POC Glucose 119 H 137 H (70-105) 01/19/19 01/19/19 Range/Units 05:35 11:39 POC ABG pH (7.35-7.45) POC ABG pCO2 (35-45) POC Glucose 157 H 155 H (70-105) Assessment and Plan Cultures: Blood culture 01/15/2019 no growth. Stool culture 01/20/2019 no growth today. Trachea asp culture 01/15/2019 upper resp papo. Assessment: 73 y/o female with a history of diastolic CHF, cardiomyopathy, CAD s/p sten, pericardial effusion requiring pericardiocentesis (2012), hypertension, COPD with emphysema, CKD and gout: admitted on 01/15/19 after a cardiac arrest. 1) S/p Cardiopulmonary arrest, out of hospital, PEA with ROSC 2) Acute respiratory failure: intubated on CPAP 3) Acute encephalopathy, metabolic 4) CARMELINA 5) Seizure activity 6) Sepsis: present on admission with fever, tachycardia. Etiology possible asp pneumonia, ? central fever, ? drug fever. Trachea asp culture 01/15/2019 upper resp papo. 7) Thrombocytopenia 8) Diarrhea: C diff negative.Stool culture 01/15/2019 no growth. Recommendations: - follow-up blood cultures - stop unasyn - start ceftriaxone and flagyl - monitor fever Will follow. Karla Alan MD Infectious Diseases [employer] [facility] M [phone] O [phone]
[2019-01-19] MEDS: LASIX PO SCH (17:58)
[2019-01-20] MEDS: TYLENOL PO PRN (00:24)
[2019-01-20] MEDS: DUONEB *Not for PRN Use IH SCH ×4 (01:48→19:40)
[2019-01-20] MEDS: SODIUM CHLORIDE FLUSH SYRINGE 10 ML IV SCH ×2 (02:05→10:00)
--- NOTE | 2019-01-20 03:43 | XRay Report ---
PROCEDURE: XR CHEST 1V AP TECHNIQUE: Single radiograph of the chest obtained. HISTORY: ETT location COMPARISONS: 01/18/2019. FINDINGS: ET tube noted with tip approximately 3 cm from the john. Feeding tube noted coursing below the diap hragms. No focal consolidation or effusion visualized. No pneumothorax visualized. IMPRESSION: ET tube noted with tip approximately 3 cm from the john. This document is electronically signed by Juan A Marrero MD., Jan 20 2019 03:41:22 AM ET
[2019-01-20] MEDS: LASIX PO SCH ×2 (06:34→17:37)
--- NOTE | 2019-01-20 07:23 | Progress Note ---
Assessment and Plan s/p Cardiopulmonary arrest, out of hospital, PEA with ROSC Acute hypoxic-hypercapnic respiratory failure on MVS Acute encephalopathy, metabolic Acute metabolic acidosis Acute renal injury Seizure activity Right lower lobe infiltrate, probably aspiration Pyrexia with leukocytosis Pulmonary HTN RVSP 60 Systolic heart failure EF 35-40% Thrombocytopenia Pyrexia - Trend fever curve, follow cultures -Adjust ventialtor settings for better gas-exchange, ABGS show respiratory alkalosis -Continue cardioprotective measures -Gentle diuresis as tolerated by renal function, hemodynamics -Replete electrolytes as tolerated -Currently on Unasyn/Vancomycin, follow cultures and adjust antibiotics for ID/MAMADOU. -Continue bronchodilators -Get BMP and CBC in the morning. -Monitor platelet counts and trend -Update grand-daughter, who is the POA. Discussed the possibility of tracheostomy and PEG. -Continue all other care as detailed below -Continue full MVS -Wean supplemental oxygen to keep O2 sats 88-90% -Lung protective strategies - ABGs/CXR prn -VAP bundle addressed -Monitor renal indices closely -Avoid nephrotoxic agents, adjust all medications for CrCL -Strict intake and output monitoring -Daily SAT & SBT -Sedation target for RASS 0 to -1 -Stress ulcer prophylaxis -VTE prophylaxis, -Tube feedings -Aspiration precautions -Accuchecks with glycemic control. Target glucose of 140-180 mg/dL -Bronchodilators with pulmonary hygiene per RT -Maintenance of sleep -wake cycle -Mobility as tolerated by hemodynamics -Influenza and pneumonia vaccination per protocol ..care plan discussed at length with RN/RT at the bedside PROGNOSIS: POOR CONDITION: CRITICAL CODE STATUS: FULL CODE The high probability of a clinically significant, sudden or life-threatening deterioration of the [respiratory, neurology, renal] system(s) required my full and direct attention, intervention and personal management. The aggregate critical care time was [35] minutes without overlap. Time includes spent on; [x] Data Review and interpretation [x] Patient assessment and monitoring of vital signs [x] Documentation [x] Medication orders and management Subjective Date of service: 01/20/19 Principal diagnosis: OOH cardiac arrest; Acute hypoxemic-hypercapnic Resp failure; PNA Interval history: Patient is seen today for: OOH cardiopulmonary arrest with ROSC; Acute hypoxemic-hypercapnic respiratory failure on MVS; acute encephalopathy; aspiration pneumonia; Seen and examined at bedside; 24-hour events reviewed; nursing and respiratory care staff consulted; no adverse overnight events reported to me; Had a fever of 101.7 treated with Tylenol, no vomiting, diarrhea is improving. Remains on MVS AC-PRVC 20/400/6/25% ABG 7.5/34/87/27 Continues to tolerate dialy PSV trials, remains unresponsive Discussed in ICU-IDT rounds, grand daughter at the bedside Repeat CT head done last night, negative EEG shows minimal cortical activity Objective Vital Signs - 12hr 01/19/19 01/19/19 01/19/19 19:30 19:43 19:46 Temperature Pulse Rate 87 86 Pulse Rate [ 85 Anterior Bilateral Throughout] Pulse Rate [ From Monitor] Respiratory 26 H 25 H Rate Respiratory 26 H Rate [Anterior Bilateral Throughout] Blood Pressure 120/63 120/63 O2 Sat by Pulse 99 Oximetry 01/19/19 01/19/19 01/19/19 20:00 20:24 20:30 Temperature 100.6 F H 100.7 F H Pulse Rate 85 81 Pulse Rate [ Anterior Bilateral Throughout] Pulse Rate [ 85 From Monitor] Respiratory 25 H 25 H Rate Respiratory Rate [Anterior Bilateral Throughout] Blood Pressure 108/63 121/64 O2 Sat by Pulse 98 98 Oximetry 01/19/19 01/19/19 01/19/19 21:00 21:30 22:00 Temperature Pulse Rate 87 88 90 Pulse Rate [ Anterior Bilateral Throughout] Pulse Rate [ From Monitor] Respiratory 22 22 22 Rate Respiratory Rate [Anterior Bilateral Throughout] Blood Pressure 111/61 115/63 109/67 O2 Sat by Pulse 99 Oximetry 01/19/19 01/19/19 01/19/19 22:30 23:00 23:08 Temperature Pulse Rate 89 91 H 89 Pulse Rate [ Anterior Bilateral Throughout] Pulse Rate [ From Monitor] Respiratory 23 22 Rate Respiratory Rate [Anterior Bilateral Throughout] Blood Pressure 111/60 110/63 110/63 O2 Sat by Pulse 100 Oximetry 01/19/19 01/19/19 01/19/19 23:13 23:15 23:30 Temperature 101.8 F H Pulse Rate 89 87 Pulse Rate [ Anterior Bilateral Throughout] Pulse Rate [ From Monitor] Respiratory 20 Rate Respiratory Rate [Anterior Bilateral Throughout] Blood Pressure 110/63 124/65 O2 Sat by Pulse 98 Oximetry 01/19/19 01/19/19 01/20/19 23:44 23:45 00:00 Temperature Pulse Rate 79 82 Pulse Rate [ Anterior Bilateral Throughout] Pulse Rate [ 79 From Monitor] Respiratory 20 20 18 Rate Respiratory Rate [Anterior Bilateral Throughout] Blood Pressure 124/65 118/64 O2 Sat by Pulse 100 98 100 Oximetry 01/20/19 01/20/19 01/20/19 00:30 01:00 01:42 Temperature Pulse Rate 82 79 81 Pulse Rate [ Anterior Bilateral Throughout] Pulse Rate [ From Monitor] Respiratory 20 20 19 Rate Respiratory Rate [Anterior Bilateral Throughout] Blood Pressure 110/60 106/60 106/60 O2 Sat by Pulse 100 97 99 Oximetry 01/20/19 01/20/19 01/20/19 01:48 02:00 02:30 Temperature Pulse Rate 90 78 Pulse Rate [ 93 H 77 Anterior Bilateral Throughout] Pulse Rate [ From Monitor] Respiratory 15 20 Rate Respiratory 20 20 Rate [Anterior Bilateral Throughout] Blood Pressure 117/68 108/62 O2 Sat by Pulse 95 96 Oximetry 01/20/19 01/20/19 01/20/19 02:35 03:00 03:25 Temperature 98.5 F Pulse Rate 71 70 Pulse Rate [ Anterior Bilateral Throughout] Pulse Rate [ From Monitor] Respiratory 20 Rate Respiratory Rate [Anterior Bilateral Throughout] Blood Pressure 95/58 95/58 O2 Sat by Pulse 98 100 Oximetry 01/20/19 01/20/19 01/20/19 03:30 03:35 04:00 Temperature 98.4 F Pulse Rate 69 70 Pulse Rate [ Anterior Bilateral Throughout] Pulse Rate [ From Monitor] Respiratory 20 20 Rate Respiratory Rate [Anterior Bilateral Throughout] Blood Pressure 104/61 110/64 O2 Sat by Pulse Oximetry 01/20/19 01/20/19 01/20/19 04:30 05:00 05:30 Temperature Pulse Rate 69 70 73 Pulse Rate [ Anterior Bilateral Throughout] Pulse Rate [ 70 From Monitor] Respiratory 20 20 20 Rate Respiratory Rate [Anterior Bilateral Throughout] Blood Pressure 107/63 110/60 117/65 O2 Sat by Pulse 100 98 100 Oximetry 01/20/19 06:00 Temperature Pulse Rate 72 Pulse Rate [ Anterior Bilateral Throughout] Pulse Rate [ From Monitor] Respiratory 20 Rate Respiratory Rate [Anterior Bilateral Throughout] Blood Pressure 114/66 O2 Sat by Pulse 100 Oximetry Constitutional: no acute distress, other (elderly, atraumatic, normocephalic, chronically looking female) Eyes: non-icteric ENT: oropharynx moist, other (ETT at 23cm) Neck: supple, no lymphadenopathy, no JVD Effort: normal Ascultation: Bilateral: diminished breath sounds, rales (bases), other (coarse breath sound bilaterally upper lobes anteriorly) Percussion: Bilateral: not dull Cardiovascular: regular rate and rhythm, other (tacycardia, S1,S2, no murmurs, gallops or rubs) Gastrointestinal: normoactive bowel sounds, soft, non-tender, non-distended Integumentary: normal Extremities: no cyanosis, no edema, pulses normal, no ischemia or petechiae Neurologic: unable to assess Psychiatric: other (unable to assess secondary to mental status) CBC and BMP: 01/24/19 Unknown 01/24/19 Unknown ABG, PT/INR, D-dimer: ABG POC ABG pH 7.508 (7.35-7.45) H 01/19/19 21:08 POC ABG pCO2 34.2 (35-45) L 01/19/19 21:08 POC ABG pO2 87 (80-105) 01/19/19 21:08 POC ABG HCO3 27.2 (22-26 mml/L) 01/19/19 21:08 POC ABG Total CO2 28 (23-27mmol/L) 01/19/19 21:08 POC ABG O2 Sat 98 01/19/19 21:08 PT/INR, D-dimer PT 19.7 Sec. (12.2-14.9) H 01/15/19 07:50 INR 1.56 (0.87-1.13) H 01/15/19 07:50 Abnormal lab findings: Abnormal Labs 01/15/19 01/15/19 01/15/19 07:50 07:50 07:50 WBC RBC Hgb Hct MCV 99 H RDW 16.7 H Plt Count 122 L Lymph % (Auto) Lymph # Seg Neutrophils % Seg Neuts % (Manual) Lymphocytes % (Manual) Seg Neutrophils # Seg Neutrophils # Man Lymphocytes # (Manual) PT 19.7 H INR 1.56 H POC ABG pH POC ABG pCO2 POC ABG pO2 Potassium Carbon Dioxide 11 L BUN Creatinine 1.4 H Glucose 268 H POC Glucose Calcium AST 57 H Total Creatine Kinase CK-MB (CK-2) Troponin T NT-Pro-B Natriuret Pep 5346 H Total Protein Albumin 3.6 L HDL Cholesterol 01/15/19 01/15/19 01/15/19 09:56 11:53 17:52 WBC RBC Hgb Hct MCV RDW Plt Count Lymph % (Auto) Lymph # Seg Neutrophils % Seg Neuts % (Manual) Lymphocytes % (Manual) Seg Neutrophils # Seg Neutrophils # Man Lymphocytes # (Manual) PT INR POC ABG pH 7.186 L POC ABG pCO2 46.4 H POC ABG pO2 Potassium Carbon Dioxide BUN Creatinine Glucose POC Glucose Calcium AST Total Creatine Kinase 683 H 1430 H CK-MB (CK-2) 9.5 H 13.5 H Troponin T 0.036 H D NT-Pro-B Natriuret Pep Total Protein Albumin HDL Cholesterol 65 H 01/15/19 01/15/19 01/16/19 18:31 21:46 02:14 WBC RBC Hgb Hct MCV RDW Plt Count Lymph % (Auto) Lymph # Seg Neutrophils % Seg Neuts % (Manual) Lymphocytes % (Manual) Seg Neutrophils # Seg Neutrophils # Man Lymphocytes # (Manual) PT INR POC ABG pH POC ABG pCO2 31.8 L POC ABG pO2 167 H Potassium Carbon Dioxide BUN Creatinine Glucose POC Glucose 134 H 136 H Calcium AST Total Creatine Kinase CK-MB (CK-2) Troponin T NT-Pro-B Natriuret Pep Total Protein Albumin HDL Cholesterol 01/16/19 01/16/19 01/16/19 04:16 04:16 05:05 WBC 11.4 H RBC Hgb Hct MCV RDW Plt Count 105 L Lymph % (Auto) Lymph # Seg Neutrophils % Seg Neuts % (Manual) 74.0 H Lymphocytes % (Manual) 2.0 L Seg Neutrophils # Seg Neutrophils # Man 8.4 H Lymphocytes # (Manual) 0.2 L PT INR POC ABG pH 7.458 H POC ABG pCO2 31.4 L POC ABG pO2 135 H Potassium 3.3 L Carbon Dioxide 21 L D BUN 24 H Creatinine 1.5 H Glucose 141 H POC Glucose Calcium 8.1 L AST 71 H Total Creatine Kinase CK-MB (CK-2) Troponin T NT-Pro-B Natriuret Pep Total Protein 6.2 L Albumin 3.5 L HDL Cholesterol 01/16/19 01/16/19 01/16/19 05:24 13:42 21:08 WBC RBC Hgb Hct MCV RDW Plt Count Lymph % (Auto) Lymph # Seg Neutrophils % Seg Neuts % (Manual) Lymphocytes % (Manual) Seg Neutrophils # Seg Neutrophils # Man Lymphocytes # (Manual) PT INR POC ABG pH POC ABG pCO2 POC ABG pO2 Potassium Carbon Dioxide BUN Creatinine Glucose POC Glucose 137 H 129 H 122 H Calcium AST Total Creatine Kinase CK-MB (CK-2) Troponin T NT-Pro-B Natriuret Pep Total Protein Albumin HDL Cholesterol 01/17/19 01/17/19 01/17/19 02:18 04:23 05:13 WBC RBC Hgb Hct MCV RDW Plt Count Lymph % (Auto) Lymph # Seg Neutrophils % Seg Neuts % (Manual) Lymphocytes % (Manual) Seg Neutrophils # Seg Neutrophils # Man Lymphocytes # (Manual) PT INR POC ABG pH 7.479 H POC ABG pCO2 30.0 L POC ABG pO2 141 H Potassium Carbon Dioxide BUN Creatinine Glucose POC Glucose 139 H 128 H Calcium AST Total Creatine Kinase CK-MB (CK-2) Troponin T NT-Pro-B Natriuret Pep Total Protein Albumin HDL Cholesterol 01/17/19 01/17/19 01/17/19 10:22 15:59 18:45 WBC RBC Hgb Hct MCV RDW Plt Count Lymph % (Auto) Lymph # Seg Neutrophils % Seg Neuts % (Manual) Lymphocytes % (Manual) Seg Neutrophils # Seg Neutrophils # Man Lymphocytes # (Manual) PT INR POC ABG pH POC ABG pCO2 POC ABG pO2 Potassium Carbon Dioxide BUN Creatinine Glucose POC Glucose 133 H 121 H 106 H Calcium AST Total Creatine Kinase CK-MB (CK-2) Troponin T NT-Pro-B Natriuret Pep Total Protein Albumin HDL Cholesterol 01/17/19 01/18/19 01/18/19 23:35 04:21 04:21 WBC RBC 3.27 L Hgb 9.6 L Hct 29.9 L MCV RDW Plt Count 79 L Lymph % (Auto) 6.0 L Lymph # 0.5 L Seg Neutrophils % 89.2 H Seg Neuts % (Manual) Lymphocytes % (Manual) Seg Neutrophils # 8.1 H Seg Neutrophils # Man Lymphocytes # (Manual) PT INR POC ABG pH POC ABG pCO2 POC ABG pO2 Potassium Carbon Dioxide BUN 28 H Creatinine 1.3 H Glucose 129 H POC Glucose 121 H Calcium AST 120 H Total Creatine Kinase CK-MB (CK-2) Troponin T NT-Pro-B Natriuret Pep Total Protein 5.1 L Albumin 3.0 L HDL Cholesterol 01/18/19 01/18/19 01/18/19 04:21 04:36 05:43 WBC RBC Hgb Hct MCV RDW Plt Count Lymph % (Auto) Lymph # Seg Neutrophils % Seg Neuts % (Manual) Lymphocytes % (Manual) Seg Neutrophils # Seg Neutrophils # Man Lymphocytes # (Manual) PT INR POC ABG pH 7.485 H POC ABG pCO2 31.0 L POC ABG pO2 126 H Potassium Carbon Dioxide BUN 28 H Creatinine 1.3 H Glucose 128 H POC Glucose 142 H Calcium AST Total Creatine Kinase CK-MB (CK-2) Troponin T NT-Pro-B Natriuret Pep Total Protein Albumin HDL Cholesterol 01/18/19 01/18/19 01/18/19 12:04 18:16 20:47 WBC RBC Hgb Hct MCV RDW Plt Count Lymph % (Auto) Lymph # Seg Neutrophils % Seg Neuts % (Manual) Lymphocytes % (Manual) Seg Neutrophils # Seg Neutrophils # Man Lymphocytes # (Manual) PT INR POC ABG pH 7.489 H POC ABG pCO2 32.8 L POC ABG pO2 Potassium Carbon Dioxide BUN Creatinine Glucose POC Glucose 113 H 119 H Calcium AST Total Creatine Kinase CK-MB (CK-2) Troponin T NT-Pro-B Natriuret Pep Total Protein Albumin HDL Cholesterol 01/19/19 01/19/19 01/19/19 00:40 05:35 11:39 WBC RBC Hgb Hct MCV RDW Plt Count Lymph % (Auto) Lymph # Seg Neutrophils % Seg Neuts % (Manual) Lymphocytes % (Manual) Seg Neutrophils # Seg Neutrophils # Man Lymphocytes # (Manual) PT INR POC ABG pH POC ABG pCO2 POC ABG pO2 Potassium Carbon Dioxide BUN Creatinine Glucose POC Glucose 137 H 157 H 155 H Calcium AST Total Creatine Kinase CK-MB (CK-2) Troponin T NT-Pro-B Natriuret Pep Total Protein Albumin HDL Cholesterol 01/19/19 01/19/19 01/19/19 18:24 21:08 23:33 WBC RBC Hgb Hct MCV RDW Plt Count Lymph % (Auto) Lymph # Seg Neutrophils % Seg Neuts % (Manual) Lymphocytes % (Manual) Seg Neutrophils # Seg Neutrophils # Man Lymphocytes # (Manual) PT INR POC ABG pH 7.508 H POC ABG pCO2 34.2 L POC ABG pO2 Potassium Carbon Dioxide BUN Creatinine Glucose POC Glucose 145 H 156 H Calcium AST Total Creatine Kinase CK-MB (CK-2) Troponin T NT-Pro-B Natriuret Pep Total Protein Albumin HDL Cholesterol 01/20/19 05:12 WBC RBC Hgb Hct MCV RDW Plt Count Lymph % (Auto) Lymph # Seg Neutrophils % Seg Neuts % (Manual) Lymphocytes % (Manual) Seg Neutrophils # Seg Neutrophils # Man Lymphocytes # (Manual) PT INR POC ABG pH POC ABG pCO2 POC ABG pO2 Potassium Carbon Dioxide BUN Creatinine Glucose POC Glucose 152 H Calcium AST Total Creatine Kinase CK-MB (CK-2) Troponin T NT-Pro-B Natriuret Pep Total Protein Albumin HDL Cholesterol Allied health notes reviewed: nursing
--- NOTE | 2019-01-20 09:23 | Cat Scan Report ---
PROCEDURE: CT HEAD/BRAIN WO CON TECHNIQUE: Computerized tomography of the head was performed without contrast material. Coronal and s agittal reformatted images were provided. CT DOSE LENGTH PRODUCT: 805.4 mGy-cm. HISTORY: ams COMPARISONS: CT head January 15, 2019. FINDINGS: There is no evidence for acute ischemia. There is no hemorrhage. There is no midline shift. There is no hydrocephalus. There is no mass. Age appropriate jacinto-white matter attenuation is noted. There is no calvarial fracture. The temporal bones demonstrate aerated mastoid air cells. The middle ears appear unremarkable. Mild to moderate mucosal thickening in the left sphenoid sinus. Globes are intact. IMPRESSION: * No acute intracranial findings. This document is electronically signed by Zbigniew Conway MD., Jan 20 2019 09:21:51 AM ET
[2019-01-20] MEDS: ARIXTRA SUB-Q SCH (10:00)
[2019-01-20] MEDS: BABY ASPIRIN PO SCH (10:00)
[2019-01-20] MEDS: KEPPRA PO SCH ×2 (10:00→21:27)
[2019-01-20] MEDS: PEPCID IV SCH (10:00)
[2019-01-20] MEDS: COREG PO SCH ×2 (10:00→21:27)
[2019-01-20] MEDS: UNASYN/NS 3 GM/100 ML 3 GM/100 ML BAG IV SCH (10:00)
[2019-01-20] MEDS: PROVIGIL PO SCH (10:00)
--- NOTE | 2019-01-20 11:58 | Progress Note ---
Assessment and Plan Assessment and plan: Cardiopulmonary arrest. Patient with out of hospital PA arrest and ROSC. Cardiology following. Acute hypoxemic hypercapnic respiratory failure. Continue mechanical ventilation per pulmonary. Aspiration pneumonia. Patient with right lower lobe infiltrate. Continue IV antibiotics. Sepsis. Tracheal aspirate and blood cultures are negative to date. ID following. Anoxic encephalopathy +/-toxic metabolic etiologies well. Continue to treat underlying causes. EEG reported as abnormal with minimal brain activity. No epileptiform discharges. Acute renal failure. Etiology likely secondary to acute kidney injury from sepsis. Creatinine is stable. Continue to monitor. Pulmonary hypertension. Consider CT of the chest when medically stable. Acute systolic heart failure. Patient with moderate global hypokinesis of left ventricle EF 35-40% and left ventricular systolic function moderately decreased. The high probability of a clinically significant, sudden or life threatening deterioration of the [cardiac and respiratory] system(s) required my full and direct attention, intervention and personal management. The aggregate critical care time was [32] minutes. This time is in addition to time spent performing reported procedures but includes the following: [x] Data Review and interpretation [x] Patient assessment and monitoring of vital signs [x] Documentation [x] Medication orders and management History Interval history: No new issues overnight. Patient remains intubated on mechanical ventilation. Hospitalist Physical - Constitutional Vitals: Temp Pulse Resp BP Pulse Ox 98.3 F 70 24 110/64 100 01/20/19 11:50 01/20/19 11:38 01/20/19 11:38 01/20/19 11:38 01/20/19 11:38 General appearance: Present: mild distress, well-nourished, other (intubated) - EENT Eyes: Present: PERRL, EOM intact ENT: hearing intact, clear oral mucosa, dentition normal - Neck Neck: Present: supple, normal ROM - Respiratory Respiratory effort: normal Respiratory: bilateral: CTA - Cardiovascular Rhythm: regular Heart Sounds: Present: S1 & S2. Absent: gallop, rub - Extremities Extremities: no ischemia, No edema, Full ROM - Abdominal General gastrointestinal: soft, non-tender, non-distended, normal bowel sounds - Integumentary Integumentary: Present: clear, warm, dry - Neurologic Neurologic: CNII-XII intact, moves all extremities Results - Labs CBC & Chem 7: 01/18/19 04:21 01/18/19 04:21 Labs: Laboratory Last Values WBC 9.1 K/mm3 (4.5-11.0) 01/18/19 04:21 RBC 3.27 M/mm3 (3.65-5.03) L 01/18/19 04:21 Hgb 9.6 gm/dl (10.1-14.3) L 01/18/19 04:21 Hct 29.9 % (30.3-42.9) L 01/18/19 04:21 MCV 88 fl (79-97) 01/18/19 04:21 MCH 29 pg (28-32) 01/18/19 04:21 MCHC 34 % (30-34) 01/18/19 04:21 RDW 14.8 % (13.2-15.2) 01/18/19 04:21 Plt Count 79 K/mm3 (140-440) L 01/18/19 04:21 Lymph % (Auto) 6.0 % (13.4-35.0) L 01/18/19 04:21 [place] % (Auto) 4.5 % (0.0-7.3) 01/18/19 04:21 Eos % (Auto) 0.1 % (0.0-4.3) 01/18/19 04:21 Baso % (Auto) 0.2 % (0.0-1.8) 01/18/19 04:21 Lymph # 0.5 K/mm3 (1.2-5.4) L 01/18/19 04:21 [place] # 0.4 K/mm3 (0.0-0.8) 01/18/19 04:21 Eos # 0.0 K/mm3 (0.0-0.4) 01/18/19 04:21 Baso # 0.0 K/mm3 (0.0-0.1) 01/18/19 04:21 Add Manual Diff Complete 01/16/19 04:16 Total Counted 100 01/16/19 04:16 Seg Neutrophils % 89.2 % (40.0-70.0) H 01/18/19 04:21 Seg Neuts % (Manual) 74.0 % (40.0-70.0) H 01/16/19 04:16 Band Neutrophils % 22.0 % 01/16/19 04:16 Lymphocytes % (Manual) 2.0 % (13.4-35.0) L 01/16/19 04:16 Reactive Lymphs % (Man) 0 % 01/16/19 04:16 Monocytes % (Manual) 2.0 % (0.0-7.3) 01/16/19 04:16 Eosinophils % (Manual) 0 % (0.0-4.3) 01/16/19 04:16 Basophils % (Manual) 0 % (0.0-1.8) 01/16/19 04:16 Metamyelocytes % 0 % 01/16/19 04:16 Myelocytes % 0 % 01/16/19 04:16 Promyelocytes % 0 % 01/16/19 04:16 Blast Cells % 0 % 01/16/19 04:16 Nucleated RBC % Not Reportable 01/16/19 04:16 Seg Neutrophils # 8.1 K/mm3 (1.8-7.7) H 01/18/19 04:21 Seg Neutrophils # Man 8.4 K/mm3 (1.8-7.7) H 01/16/19 04:16 Band Neutrophils # 2.5 K/mm3 01/16/19 04:16 Lymphocytes # (Manual) 0.2 K/mm3 (1.2-5.4) L 01/16/19 04:16 Abs React Lymphs (Man) 0.0 K/mm3 01/16/19 04:16 Monocytes # (Manual) 0.2 K/mm3 (0.0-0.8) 01/16/19 04:16 Eosinophils # (Manual) 0.0 K/mm3 (0.0-0.4) 01/16/19 04:16 Basophils # (Manual) 0.0 K/mm3 (0.0-0.1) 01/16/19 04:16 Metamyelocytes # 0.0 K/mm3 01/16/19 04:16 Myelocytes # 0.0 K/mm3 01/16/19 04:16 Promyelocytes # 0.0 K/mm3 01/16/19 04:16 Blast Cells # 0.0 K/mm3 01/16/19 04:16 WBC Morphology Not Reportable 01/16/19 04:16 Hypersegmented Neuts Not Reportable 01/16/19 04:16 Hyposegmented Neuts Not Reportable 01/16/19 04:16 Hypogranular Neuts Not Reportable 01/16/19 04:16 Smudge Cells Not Reportable 01/16/19 04:16 Toxic Granulation Not Reportable 01/16/19 04:16 Toxic Vacuolation Not Reportable 01/16/19 04:16 Dohle Bodies Not Reportable 01/16/19 04:16 Pelger-Huet Anomaly Not Reportable 01/16/19 04:16 Cheryl Rods Not Reportable 01/16/19 04:16 Platelet Estimate Consistent w auto 01/16/19 04:16 Clumped Platelets Not Reportable 01/16/19 04:16 Plt Clumps, EDTA Not Reportable 01/16/19 04:16 Large Platelets Not Reportable 01/16/19 04:16 Giant Platelets Not Reportable 01/16/19 04:16 Platelet Satelliting Not Reportable 01/16/19 04:16 Plt Morphology Comment Not Reportable 01/16/19 04:16 RBC Morphology Normal 01/16/19 04:16 Dimorphic RBCs Not Reportable 01/16/19 04:16 Polychromasia Not Reportable 01/16/19 04:16 Hypochromasia Not Reportable 01/16/19 04:16 Poikilocytosis Not Reportable 01/16/19 04:16 Anisocytosis Not Reportable 01/16/19 04:16 Microcytosis Not Reportable 01/16/19 04:16 Macrocytosis Not Reportable 01/16/19 04:16 Spherocytes Not Reportable 01/16/19 04:16 Pappenheimer Bodies Not Reportable 01/16/19 04:16 Sickle Cells Not Reportable 01/16/19 04:16 Target Cells Not Reportable 01/16/19 04:16 Tear Drop Cells Not Reportable 01/16/19 04:16 Ovalocytes Not Reportable 01/16/19 04:16 Helmet Cells Not Reportable 01/16/19 04:16 [place] Bodies Not Reportable 01/16/19 04:16 [place] Rings Not Reportable 01/16/19 04:16 [place] Cells Not Reportable 01/16/19 04:16 Bite Cells Not Reportable 01/16/19 04:16 Crenated Cell Not Reportable 01/16/19 04:16 Elliptocytes Not Reportable 01/16/19 04:16 Acanthocytes (Spur) Not Reportable 01/16/19 04:16 Rouleaux Not Reportable 01/16/19 04:16 Hemoglobin C Crystals Not Reportable 01/16/19 04:16 Schistocytes Not Reportable 01/16/19 04:16 Malaria parasites Not Reportable 01/16/19 04:16 Hubert Bodies Not Reportable 01/16/19 04:16 Hem Pathologist Commnt No 01/16/19 04:16 PT 19.7 Sec. (12.2-14.9) H 01/15/19 07:50 INR 1.56 (0.87-1.13) H 01/15/19 07:50 APTT 36.0 Sec. (24.2-36.6) 01/15/19 07:50 POC ABG pH 7.508 (7.35-7.45) H 01/19/19 21:08 POC ABG pCO2 34.2 (35-45) L 01/19/19 21:08 POC ABG pO2 87 (80-105) 01/19/19 21:08 POC ABG HCO3 27.2 (22-26 mml/L) 01/19/19 21:08 POC ABG Total CO2 28 (23-27mmol/L) 01/19/19 21:08 POC ABG O2 Sat 98 01/19/19 21:08 POC ABG Base Excess 4 ((-2) - (+3)mmol/L) 01/19/19 21:08 FiO2 25 % 01/19/19 21:08 Sodium 139 mmol/L (137-145) 01/18/19 04:21 Potassium 3.9 mmol/L (3.6-5.0) 01/18/19 04:21 Chloride 102.9 mmol/L (98-107) 01/18/19 04:21 Carbon Dioxide 22 mmol/L (22-30) 01/18/19 04:21 Anion Gap 18 mmol/L 01/18/19 04:21 BUN 28 mg/dL (7-17) H 01/18/19 04:21 Creatinine 1.3 mg/dL (0.7-1.2) H 01/18/19 04:21 Estimated GFR 48 ml/min 01/18/19 04:21 BUN/Creatinine Ratio 22 % 01/18/19 04:21 Glucose 128 mg/dL (65-100) H 01/18/19 04:21 POC Glucose 159 (70-105) H 01/20/19 11:42 Hemoglobin A1c 6.0 % (4-6) 01/15/19 11:53 Calcium 8.5 mg/dL (8.4-10.2) 01/18/19 04:21 Total Bilirubin 0.90 mg/dL (0.1-1.2) 01/18/19 04:21 AST 120 units/L (5-40) H 01/18/19 04:21 ALT 24 units/L (7-56) 01/18/19 04:21 Alkaline Phosphatase 48 units/L (35-129) 01/18/19 04:21 Total Creatine Kinase 1430 units/L (30-135) H 01/15/19 17:52 CK-MB (CK-2) 13.5 ng/mL (0.0-4.0) H 01/15/19 17:52 CK-MB (CK-2) Rel Index 0.9 (0-4) 01/15/19 17:52 Troponin T 0.036 ng/mL (0.00-0.029) H D 01/15/19 17:52 NT-Pro-B Natriuret Pep 5346 pg/mL (0-900) H 01/15/19 07:50 Total Protein 5.1 g/dL (6.3-8.2) L 01/18/19 04:21 Albumin 3.0 g/dL (3.9-5) L 01/18/19 04:21 Albumin/Globulin Ratio 1.4 % 01/18/19 04:21 Triglycerides 75 mg/dL (2-149) 01/15/19 17:52 Cholesterol 149 mg/dL (50-199) 01/15/19 17:52 LDL Cholesterol Direct 84 mg/dL (50-130) 01/15/19 17:52 HDL Cholesterol 65 mg/dL (40-59) H 01/15/19 17:52 Cholesterol/HDL Ratio 2.29 % 01/15/19 17:52 Urine Opiates Screen Presumptive negative 01/15/19 16:30 Urine Methadone Screen Presumptive negative 01/15/19 16:30 Ur Barbiturates Screen Presumptive negative 01/15/19 16:30 Ur Phencyclidine Scrn Presumptive negative 01/15/19 16:30 Ur Amphetamines Screen Presumptive negative 01/15/19 16:30 U Benzodiazepines Scrn Presumptive negative 01/15/19 16:30 Urine Cocaine Screen Presumptive negative 01/15/19 16:30 U Marijuana (THC) Screen Presumptive negative 01/15/19 16:30 Drugs of Abuse Note Disclamer 01/15/19 16:30 C. difficile Tox (PCR) Negative (Negative) 01/16/19 00:00 Active Medications - Current Medications Current Medications: Generic Name Dose Route Start Last Admin Trade Name Freq PRN Reason Stop Dose Admin Acetaminophen 650 mg 01/16/19 09:37 01/20/19 00:24 Tylenol PO 650 mg Q4H PRN Administration Fever >101 Albuterol/Ipratropium 1 ampul 01/15/19 14:00 01/20/19 08:18 Duoneb *Not For Prn Use* IH 1 ampul Q6HRT DEON Administration Lipase/Protease/Amylase 1 each 01/15/19 14:37 Pancreaze 10,500 Unit FEEDTUBE PRN PRN For Clogged Feeding Tube Aspirin 81 mg 01/16/19 10:00 01/20/19 10:00 Baby Aspirin PO 81 mg QDAY DEON Administration Atorvastatin Calcium 20 mg 01/16/19 22:00 01/19/19 23:15 Lipitor PO 20 mg QHS DEON Administration Carvedilol 6.25 mg 01/16/19 12:00 01/20/19 10:00 Coreg PO 6.25 mg BID DEON Administration Famotidine 20 mg 01/15/19 14:00 01/20/19 10:00 Pepcid IV 20 mg DAILY DEON Administration Fondaparinux 2.5 mg 01/20/19 10:00 01/20/19 10:00 Arixtra SUB-Q 2.5 mg QDAY DEON Administration Furosemide 20 mg 01/19/19 18:00 01/20/19 06:34 Lasix PO 20 mg 0600,1800 DEON Administration Ampicillin Sodium/Sulbactam Sodium 3 gm in 100 mls @ 200 mls/hr 01/16/19 10:00 01/20/19 10:30 Unasyn/Ns 3 Gm/100 Ml IV Infused Q12HR DEON Infusion Levetiracetam 750 mg 01/18/19 10:00 01/20/19 10:00 Keppra PO 750 mg BID DEON Administration Modafinil 100 mg 01/20/19 10:00 01/20/19 10:00 Provigil PO 100 mg QAM DEON Administration Simple Syrup 15 ml 01/15/19 14:37 Simple Syrup FEEDTUBE PRN PRN Hypoglycemia Simple Syrup 30 ml 01/15/19 14:37 Simple Syrup FEEDTUBE PRN PRN Hypoglycemia Sodium Bicarbonate 325 mg 01/15/19 14:37 Sodium Bicarbonate FEEDTUBE PRN PRN For Clogged Feeding Tube Sodium Chloride 10 ml 01/15/19 22:00 01/20/19 10:00 Sodium Chloride Flush Syringe 10 Ml IV 10 ml BID DEON Administration Sodium Chloride 10 ml 01/15/19 10:34 Sodium Chloride Flush Syringe 10 Ml IV PRN PRN LINE FLUSH Nutrition/Malnutrition Assess - Dietary Evaluation Nutrition/Malnutrition Findings: Nutrition Notes Start: 01/15/19 14:28 Freq: Status: Active Protocol: Document 01/18/19 10:28 EB (Rec: 01/18/19 10:30 EB [id number]) Co-Sign 01/18/19 10:28 LP Nutrition Notes Initial or Follow up Reassessment Other Pertinent Diagnosis s/p cardiorespiratory arrest ( at home) Current Diet Glucerna 1.2 at 50 mL/hr Labs/Tests Reviewed Pertinent Medications Dopamine gtt Height 5 ft 4 in Weight 49.3 kg [place] Body Weight (kg) 54.54 BMI 18.6 Subjective/Other Information TF running at goal rate at time of visit and RN states no residuals. Percent of energy/protein needs met: 97%/100% Burn Absent Trauma Absent #1 Nutrition Diagnosis Inadequate oral intake Diagnosis Progress(for reassessment Continues documentation) Is patient on ventilator? Yes Is Patient Ambulatory and/or Out of Bed No REE-([place]-confined to bed) 1174.212 Kcal/Kg value to use for calculation 30 Approximate Energy Requirements Using 1479 kcal/Kg Calculation Used for Recommendations Kcal/kg Additional Notes Pro needs 1.2-2g/k-100g/ day Fluid needs 1ml/kcal Nutrition Intervention Nutrition Support: Glucerna 1.2 at 50ml/hr with 80ml water flush q4h. Kcal 1,440 Protein (gm) 72 Carbohydrates (gm) 137 Fluid (mL) 966 Fiber (gm) 19 Goal #1 TF tolerance Goal #2 TF to continue to meet 100% energy and pro needs Goal #3 Wt maintenance and/or gain Anticipated Discharge Needs: Unable to identify at this time Follow-Up By: 01/25/19 Additional Comments F/U: TF tolerance
--- NOTE | 2019-01-20 13:22 | Progress Note ---
Subjective Date of service: 01/20/19 Principal diagnosis: OOH cardiac arrest; Acute hypoxemic-hypercapnic Resp failure; PNA Interval history: mild diffuse brain hypoxia noted on CT nothing extreme however do not see evidence of recovery as yet Objective - Vital Sign Vital Signs - 12hr 01/20/19 01/20/19 01/20/19 01:42 01:48 02:00 Temperature Pulse Rate 81 90 Pulse Rate [ 93 H 77 Anterior Bilateral Throughout] Pulse Rate [ From Monitor] Respiratory 19 15 Rate Respiratory 20 20 Rate [Anterior Bilateral Throughout] Blood Pressure 106/60 117/68 O2 Sat by Pulse 99 95 Oximetry 01/20/19 01/20/19 01/20/19 02:30 02:35 03:00 Temperature 98.5 F Pulse Rate 78 71 Pulse Rate [ Anterior Bilateral Throughout] Pulse Rate [ From Monitor] Respiratory 20 20 Rate Respiratory Rate [Anterior Bilateral Throughout] Blood Pressure 108/62 95/58 O2 Sat by Pulse 96 98 Oximetry 01/20/19 01/20/19 01/20/19 03:25 03:30 03:35 Temperature 98.4 F Pulse Rate 70 69 Pulse Rate [ Anterior Bilateral Throughout] Pulse Rate [ From Monitor] Respiratory 20 Rate Respiratory Rate [Anterior Bilateral Throughout] Blood Pressure 95/58 104/61 O2 Sat by Pulse 100 Oximetry 01/20/19 01/20/19 01/20/19 04:00 04:30 05:00 Temperature Pulse Rate 70 69 70 Pulse Rate [ Anterior Bilateral Throughout] Pulse Rate [ 70 From Monitor] Respiratory 20 20 20 Rate Respiratory Rate [Anterior Bilateral Throughout] Blood Pressure 110/64 107/63 110/60 O2 Sat by Pulse 100 98 Oximetry 01/20/19 01/20/19 01/20/19 05:30 06:00 06:30 Temperature Pulse Rate 73 72 75 Pulse Rate [ Anterior Bilateral Throughout] Pulse Rate [ From Monitor] Respiratory 20 20 20 Rate Respiratory Rate [Anterior Bilateral Throughout] Blood Pressure 117/65 114/66 114/66 O2 Sat by Pulse 100 100 Oximetry 01/20/19 01/20/19 01/20/19 07:00 07:24 07:30 Temperature 98.2 F Pulse Rate 74 76 Pulse Rate [ Anterior Bilateral Throughout] Pulse Rate [ From Monitor] Respiratory 20 20 Rate Respiratory Rate [Anterior Bilateral Throughout] Blood Pressure 125/65 129/70 O2 Sat by Pulse 100 100 Oximetry 05/01/0501/20/19 01/20/19 08:00 08:10 08:15 Temperature Pulse Rate 81 82 90 Pulse Rate [ Anterior Bilateral Throughout] Pulse Rate [ From Monitor] Respiratory 20 17 Rate Respiratory Rate [Anterior Bilateral Throughout] Blood Pressure 134/75 134/75 134/75 O2 Sat by Pulse 100 100 100 Oximetry 01/20/19 01/20/19 01/20/19 08:18 08:30 09:00 Temperature Pulse Rate 80 77 Pulse Rate [ 83 Anterior Bilateral Throughout] Pulse Rate [ 76 From Monitor] Respiratory 21 22 Rate Respiratory 20 Rate [Anterior Bilateral Throughout] Blood Pressure 125/66 118/61 O2 Sat by Pulse 100 100 Oximetry 01/20/19 01/20/19 01/20/19 09:30 10:00 10:30 Temperature Pulse Rate 78 75 76 Pulse Rate [ Anterior Bilateral Throughout] Pulse Rate [ From Monitor] Respiratory 24 23 23 Rate Respiratory Rate [Anterior Bilateral Throughout] Blood Pressure 116/63 123/63 129/65 O2 Sat by Pulse 100 100 100 Oximetry 01/20/19 01/20/19 01/20/19 11:00 11:30 11:38 Temperature Pulse Rate 78 74 70 Pulse Rate [ Anterior Bilateral Throughout] Pulse Rate [ From Monitor] Respiratory 24 24 24 Rate Respiratory Rate [Anterior Bilateral Throughout] Blood Pressure 113/62 110/64 110/64 O2 Sat by Pulse 99 99 100 Oximetry 01/20/19 01/20/19 01/20/19 11:50 12:00 12:30 Temperature 98.3 F Pulse Rate 69 75 Pulse Rate [ Anterior Bilateral Throughout] Pulse Rate [ From Monitor] Respiratory 23 24 Rate Respiratory Rate [Anterior Bilateral Throughout] Blood Pressure 113/59 113/62 O2 Sat by Pulse 99 99 Oximetry 01/20/19 13:00 Temperature Pulse Rate 72 Pulse Rate [ Anterior Bilateral Throughout] Pulse Rate [ 78 From Monitor] Respiratory 23 Rate Respiratory Rate [Anterior Bilateral Throughout] Blood Pressure 115/59 O2 Sat by Pulse 99 Oximetry - Laboratory Findings CBC and BMP: 01/18/19 04:21 01/18/19 04:21 Abnormal Lab Findings: Abnormal Labs 01/15/19 01/15/19 01/15/19 07:50 07:50 07:50 WBC RBC Hgb Hct MCV 99 H RDW 16.7 H Plt Count 122 L Lymph % (Auto) Lymph # Seg Neutrophils % Seg Neuts % (Manual) Lymphocytes % (Manual) Seg Neutrophils # Seg Neutrophils # Man Lymphocytes # (Manual) PT 19.7 H INR 1.56 H POC ABG pH POC ABG pCO2 POC ABG pO2 Potassium Carbon Dioxide 11 L BUN Creatinine 1.4 H Glucose 268 H POC Glucose Calcium AST 57 H Total Creatine Kinase CK-MB (CK-2) Troponin T NT-Pro-B Natriuret Pep 5346 H Total Protein Albumin 3.6 L HDL Cholesterol 01/15/19 01/15/19 01/15/19 09:56 11:53 17:52 WBC RBC Hgb Hct MCV RDW Plt Count Lymph % (Auto) Lymph # Seg Neutrophils % Seg Neuts % (Manual) Lymphocytes % (Manual) Seg Neutrophils # Seg Neutrophils # Man Lymphocytes # (Manual) PT INR POC ABG pH 7.186 L POC ABG pCO2 46.4 H POC ABG pO2 Potassium Carbon Dioxide BUN Creatinine Glucose POC Glucose Calcium AST Total Creatine Kinase 683 H 1430 H CK-MB (CK-2) 9.5 H 13.5 H Troponin T 0.036 H D NT-Pro-B Natriuret Pep Total Protein Albumin HDL Cholesterol 65 H 01/15/19 01/15/19 01/16/19 18:31 21:46 02:14 WBC RBC Hgb Hct MCV RDW Plt Count Lymph % (Auto) Lymph # Seg Neutrophils % Seg Neuts % (Manual) Lymphocytes % (Manual) Seg Neutrophils # Seg Neutrophils # Man Lymphocytes # (Manual) PT INR POC ABG pH POC ABG pCO2 31.8 L POC ABG pO2 167 H Potassium Carbon Dioxide BUN Creatinine Glucose POC Glucose 134 H 136 H Calcium AST Total Creatine Kinase CK-MB (CK-2) Troponin T NT-Pro-B Natriuret Pep Total Protein Albumin HDL Cholesterol 01/16/19 01/16/19 01/16/19 04:16 04:16 05:05 WBC 11.4 H RBC Hgb Hct MCV RDW Plt Count 105 L Lymph % (Auto) Lymph # Seg Neutrophils % Seg Neuts % (Manual) 74.0 H Lymphocytes % (Manual) 2.0 L Seg Neutrophils # Seg Neutrophils # Man 8.4 H Lymphocytes # (Manual) 0.2 L PT INR POC ABG pH 7.458 H POC ABG pCO2 31.4 L POC ABG pO2 135 H Potassium 3.3 L Carbon Dioxide 21 L D BUN 24 H Creatinine 1.5 H Glucose 141 H POC Glucose Calcium 8.1 L AST 71 H Total Creatine Kinase CK-MB (CK-2) Troponin T NT-Pro-B Natriuret Pep Total Protein 6.2 L Albumin 3.5 L HDL Cholesterol 01/16/19 01/16/19 01/16/19 05:24 13:42 21:08 WBC RBC Hgb Hct MCV RDW Plt Count Lymph % (Auto) Lymph # Seg Neutrophils % Seg Neuts % (Manual) Lymphocytes % (Manual) Seg Neutrophils # Seg Neutrophils # Man Lymphocytes # (Manual) PT INR POC ABG pH POC ABG pCO2 POC ABG pO2 Potassium Carbon Dioxide BUN Creatinine Glucose POC Glucose 137 H 129 H 122 H Calcium AST Total Creatine Kinase CK-MB (CK-2) Troponin T NT-Pro-B Natriuret Pep Total Protein Albumin HDL Cholesterol 01/17/19 01/17/19 01/17/19 02:18 04:23 05:13 WBC RBC Hgb Hct MCV RDW Plt Count Lymph % (Auto) Lymph # Seg Neutrophils % Seg Neuts % (Manual) Lymphocytes % (Manual) Seg Neutrophils # Seg Neutrophils # Man Lymphocytes # (Manual) PT INR POC ABG pH 7.479 H POC ABG pCO2 30.0 L POC ABG pO2 141 H Potassium Carbon Dioxide BUN Creatinine Glucose POC Glucose 139 H 128 H Calcium AST Total Creatine Kinase CK-MB (CK-2) Troponin T NT-Pro-B Natriuret Pep Total Protein Albumin HDL Cholesterol 01/17/19 01/17/19 01/17/19 10:22 15:59 18:45 WBC RBC Hgb Hct MCV RDW Plt Count Lymph % (Auto) Lymph # Seg Neutrophils % Seg Neuts % (Manual) Lymphocytes % (Manual) Seg Neutrophils # Seg Neutrophils # Man Lymphocytes # (Manual) PT INR POC ABG pH POC ABG pCO2 POC ABG pO2 Potassium Carbon Dioxide BUN Creatinine Glucose POC Glucose 133 H 121 H 106 H Calcium AST Total Creatine Kinase CK-MB (CK-2) Troponin T NT-Pro-B Natriuret Pep Total Protein Albumin HDL Cholesterol 01/17/19 01/18/19 01/18/19 23:35 04:21 04:21 WBC RBC 3.27 L Hgb 9.6 L Hct 29.9 L MCV RDW Plt Count 79 L Lymph % (Auto) 6.0 L Lymph # 0.5 L Seg Neutrophils % 89.2 H Seg Neuts % (Manual) Lymphocytes % (Manual) Seg Neutrophils # 8.1 H Seg Neutrophils # Man Lymphocytes # (Manual) PT INR POC ABG pH POC ABG pCO2 POC ABG pO2 Potassium Carbon Dioxide BUN 28 H Creatinine 1.3 H Glucose 129 H POC Glucose 121 H Calcium AST 120 H Total Creatine Kinase CK-MB (CK-2) Troponin T NT-Pro-B Natriuret Pep Total Protein 5.1 L Albumin 3.0 L HDL Cholesterol 01/18/19 01/18/19 01/18/19 04:21 04:36 05:43 WBC RBC Hgb Hct MCV RDW Plt Count Lymph % (Auto) Lymph # Seg Neutrophils % Seg Neuts % (Manual) Lymphocytes % (Manual) Seg Neutrophils # Seg Neutrophils # Man Lymphocytes # (Manual) PT INR POC ABG pH 7.485 H POC ABG pCO2 31.0 L POC ABG pO2 126 H Potassium Carbon Dioxide BUN 28 H Creatinine 1.3 H Glucose 128 H POC Glucose 142 H Calcium AST Total Creatine Kinase CK-MB (CK-2) Troponin T NT-Pro-B Natriuret Pep Total Protein Albumin HDL Cholesterol 01/18/19 01/18/19 01/18/19 12:04 18:16 20:47 WBC RBC Hgb Hct MCV RDW Plt Count Lymph % (Auto) Lymph # Seg Neutrophils % Seg Neuts % (Manual) Lymphocytes % (Manual) Seg Neutrophils # Seg Neutrophils # Man Lymphocytes # (Manual) PT INR POC ABG pH 7.489 H POC ABG pCO2 32.8 L POC ABG pO2 Potassium Carbon Dioxide BUN Creatinine Glucose POC Glucose 113 H 119 H Calcium AST Total Creatine Kinase CK-MB (CK-2) Troponin T NT-Pro-B Natriuret Pep Total Protein Albumin HDL Cholesterol 01/19/19 01/19/19 01/19/19 00:40 05:35 11:39 WBC RBC Hgb Hct MCV RDW Plt Count Lymph % (Auto) Lymph # Seg Neutrophils % Seg Neuts % (Manual) Lymphocytes % (Manual) Seg Neutrophils # Seg Neutrophils # Man Lymphocytes # (Manual) PT INR POC ABG pH POC ABG pCO2 POC ABG pO2 Potassium Carbon Dioxide BUN Creatinine Glucose POC Glucose 137 H 157 H 155 H Calcium AST Total Creatine Kinase CK-MB (CK-2) Troponin T NT-Pro-B Natriuret Pep Total Protein Albumin HDL Cholesterol 01/19/19 01/19/19 01/19/19 18:24 21:08 23:33 WBC RBC Hgb Hct MCV RDW Plt Count Lymph % (Auto) Lymph # Seg Neutrophils % Seg Neuts % (Manual) Lymphocytes % (Manual) Seg Neutrophils # Seg Neutrophils # Man Lymphocytes # (Manual) PT INR POC ABG pH 7.508 H POC ABG pCO2 34.2 L POC ABG pO2 Potassium Carbon Dioxide BUN Creatinine Glucose POC Glucose 145 H 156 H Calcium AST Total Creatine Kinase CK-MB (CK-2) Troponin T NT-Pro-B Natriuret Pep Total Protein Albumin HDL Cholesterol 01/20/19 01/20/19 05:12 11:42 WBC RBC Hgb Hct MCV RDW Plt Count Lymph % (Auto) Lymph # Seg Neutrophils % Seg Neuts % (Manual) Lymphocytes % (Manual) Seg Neutrophils # Seg Neutrophils # Man Lymphocytes # (Manual) PT INR POC ABG pH POC ABG pCO2 POC ABG pO2 Potassium Carbon Dioxide BUN Creatinine Glucose POC Glucose 152 H 159 H Calcium AST Total Creatine Kinase CK-MB (CK-2) Troponin T NT-Pro-B Natriuret Pep Total Protein Albumin HDL Cholesterol
[2019-01-20] MEDS: ROCEPHIN/NS 2 GM/100 ML 2 GM/100 ML BAG IV SCH (15:00)
[2019-01-20] MEDS: FLAGYL 500 MG/100 ML 500 MG/100 ML BAG IV SCH ×2 (15:10→21:20)
[2019-01-21] MEDS: DUONEB *Not for PRN Use IH SCH ×4 (03:59→19:44)
[2019-01-21] MEDS: FLAGYL 500 MG/100 ML 500 MG/100 ML BAG IV SCH ×3 (05:43→21:51)
[2019-01-21] MEDS: LASIX PO SCH ×2 (05:44→18:00)
[2019-01-21] MEDS: ARIXTRA SUB-Q SCH (09:04)
[2019-01-21] MEDS: PROVIGIL PO SCH (09:05)
[2019-01-21] MEDS: KEPPRA PO SCH ×2 (09:05→21:50)
[2019-01-21] MEDS: BABY ASPIRIN PO SCH (09:05)
[2019-01-21] MEDS: COREG PO SCH ×2 (09:06→21:50)
[2019-01-21] MEDS: PEPCID IV SCH (09:06)
[2019-01-21] MEDS: SODIUM CHLORIDE FLUSH SYRINGE 10 ML IV SCH ×2 (09:07→21:51)
[2019-01-21] MEDS: ROCEPHIN/NS 2 GM/100 ML 2 GM/100 ML BAG IV SCH (09:10)
--- NOTE | 2019-01-21 09:31 | Progress Note ---
Assessment and Plan Cultures: Blood culture 01/15/2019 no growth. Stool culture 01/20/2019 no growth today. Trachea asp culture 01/15/2019 upper resp papo. Assessment: 73 y/o female with a history of diastolic CHF, cardiomyopathy, CAD s/p sten, pericardial effusion requiring pericardiocentesis (2012), hypertension, COPD with emphysema, CKD and gout: admitted on 01/15/19 after a cardiac arrest. 1) S/p Cardiopulmonary arrest, out of hospital, PEA with ROSC 2) Acute respiratory failure: intubated on CPAP 3) Acute encephalopathy: metabolic. Head CT shows no evidence for acute ischemia 4) CARMELINA: improving 5) Seizure activity 6) Sepsis: Improved. Fevers continuing. Etiology possible asp pneumonia, ? cent ral fever, ? drug fever. Trachea asp culture 01/15/2019 upper resp papo. 7) Thrombocytopenia: worsening 8) Diarrhea: C diff negative.Stool culture 01/15/2019 no growth. Recommendations: - follow-up repeat blood cultures - Continue ceftriaxone and flagy, D2 -continue to monitor fever -Order U/A and urine culture [facility] M: [phone] O:[phone] Subjective Date of service: 01/21/19 Principal diagnosis: OOH cardiac arrest; Acute hypoxemic-hypercapnic Resp failure; PNA Interval history: Patient seen and examined. Remains intubated and unresponsive. No pressors. Low grade fevers. Objective - Exam Narrative Exam: General appearance: intubated on CPAP . Unresponsive Eyes: anicteric sclerae, moist conjunctivae; no lid-lag; PERRLA HENT: Atraumatic; oropharynx +ETT +OGT Neck: Trachea midline; supple, no thyromegaly or lymphadenopathy Lungs: scattered olman rhonchi CV: RRR Abdomen: Soft, non-tender; no masses or hepatosplenomegaly Extremities:olman edema Skin: Normal temperature, turgor and texture; no rash, ulcers or subcutaneous nodules Psych: Calm . Neuro: unresponsive. - Constitutional Vitals: Vital Signs Temp Pulse Resp BP Pulse Ox 99.6 F 87 20 123/65 100 01/21/19 08:00 01/21/19 09:06 01/21/19 09:00 01/21/19 09:06 01/21/19 09:00 Temperature -Last 24 Hours Temperature 99.6 F Temperature 99.1 F Temperature 99.8 F Temperature 100.6 F Temperature 100.2 F Temperature 98.3 F - Labs CBC & Chem 7: 01/18/19 04:21 01/18/19 04:21 Labs: Abnormal lab results 01/20/19 01/20/19 01/20/19 Range/Units 11:42 17:36 23:29 POC ABG pH (7.35-7.45) POC ABG pO2 (80-105) POC Glucose 159 H 169 H 139 H (70-105) 01/21/19 01/21/19 Range/Units 05:30 05:34 POC ABG pH 7.616 H (7.35-7.45) POC ABG pO2 71 L (80-105) POC Glucose 138 H (70-105)
--- NOTE | 2019-01-21 11:27 | Progress Note ---
Assessment and Plan Assessment and plan: Cardiopulmonary arrest. Patient with out of hospital PEA arrest and ROSC. Cardiology following. Acute hypoxemic hypercapnic respiratory failure. Continue mechanical ventilation per pulmonary. Aspiration pneumonia. Patient with right lower lobe infiltrate. Continue IV antibiotics. Sepsis. Tracheal aspirate and blood cultures are negative to date. ID following. Anoxic encephalopathy +/-toxic metabolic etiologies as well. Continue to treat underlying causes. EEG reported as abnormal with minimal brain activity. No epileptiform discharges. Acute renal failure. Etiology likely secondary to acute kidney injury from sepsis. Creatinine is stable. Continue to monitor. Pulmonary hypertension. Consider CT of the chest when medically stable. Acute systolic heart failure. Patient with moderate global hypokinesis of left ventricle EF 35-40% and left ventricular systolic function moderately decreased. The high probability of a clinically significant, sudden or life threatening d eterioration of the [cardiac and respiratory] system(s) required my full and direct attention, intervention and personal management. The aggregate critical care time was [31] minutes. This time is in addition to time spent performing reported procedures but includes the following: [x] Data Review and interpretation [x] Patient assessment and monitoring of vital signs [x] Documentation [x] Medication orders and management History Interval history: No new issues overnight. Patient remains intubated on mechanical ventilation. Patient moves head and extremities off sedation. Hospitalist Physical - Constitutional Vitals: Temp Pulse Resp BP Pulse Ox 99.6 F 86 20 105/58 99 01/21/19 08:00 01/21/19 10:30 01/21/19 10:30 01/21/19 10:30 01/21/19 10:30 General appearance: Present: no acute distress, well-nourished, other (intubate d) - EENT Eyes: Present: PERRL, EOM intact ENT: hearing intact, clear oral mucosa, dentition normal - Neck Neck: Present: supple, normal ROM - Respiratory Respiratory effort: normal Respiratory: bilateral: CTA - Cardiovascular Rhythm: regular Heart Sounds: Present: S1 & S2. Absent: gallop, rub - Extremities Extremities: no ischemia, No edema, Full ROM - Abdominal General gastrointestinal: soft, non-tender, non-distended, normal bowel sounds - Integumentary Integumentary: Present: clear, warm, dry - Neurologic Neurologic: CNII-XII intact, moves all extremities Results - Labs CBC & Chem 7: 01/18/19 04:21 01/18/19 04:21 Labs: Laboratory Last Values WBC 9.1 K/mm3 (4.5-11.0) 01/18/19 04:21 RBC 3.27 M/mm3 (3.65-5.03) L 01/18/19 04:21 Hgb 9.6 gm/dl (10.1-14.3) L 01/18/19 04:21 Hct 29.9 % (30.3-42.9) L 01/18/19 04:21 MCV 88 fl (79-97) 01/18/19 04:21 MCH 29 pg (28-32) 01/18/19 04:21 MCHC 34 % (30-34) 01/18/19 04:21 RDW 14.8 % (13.2-15.2) 01/18/19 04:21 Plt Count 79 K/mm3 (140-440) L 01/18/19 04:21 Lymph % (Auto) 6.0 % (13.4-35.0) L 01/18/19 04:21 [place] % (Auto) 4.5 % (0.0-7.3) 01/18/19 04:21 Eos % (Auto) 0.1 % (0.0-4.3) 01/18/19 04:21 Baso % (Auto) 0.2 % (0.0-1.8) 01/18/19 04:21 Lymph # 0.5 K/mm3 (1.2-5.4) L 01/18/19 04:21 [place] # 0.4 K/mm3 (0.0-0.8) 01/18/19 04:21 Eos # 0.0 K/mm3 (0.0-0.4) 01/18/19 04:21 Baso # 0.0 K/mm3 (0.0-0.1) 01/18/19 04:21 Add Manual Diff Complete 01/16/19 04:16 Total Counted 100 01/16/19 04:16 Seg Neutrophils % 89.2 % (40.0-70.0) H 01/18/19 04:21 Seg Neuts % (Manual) 74.0 % (40.0-70.0) H 01/16/19 04:16 Band Neutrophils % 22.0 % 04/30/19 04:16 Lymphocytes % (Manual) 2.0 % (13.4-35.0) L 01/16/19 04:16 Reactive Lymphs % (Man) 0 % 01/16/19 04:16 Monocytes % (Manual) 2.0 % (0.0-7.3) 01/16/19 04:16 Eosinophils % (Manual) 0 % (0.0-4.3) 01/16/19 04:16 Basophils % (Manual) 0 % (0.0-1.8) 01/16/19 04:16 Metamyelocytes % 0 % 01/16/19 04:16 Myelocytes % 0 % 01/16/19 04:16 Promyelocytes % 0 % 01/16/19 04:16 Blast Cells % 0 % 01/16/19 04:16 Nucleated RBC % Not Reportable 01/16/19 04:16 Seg Neutrophils # 8.1 K/mm3 (1.8-7.7) H 01/18/19 04:21 Seg Neutrophils # Man 8.4 K/mm3 (1.8-7.7) H 01/16/19 04:16 Band Neutrophils # 2.5 K/mm3 01/16/19 04:16 Lymphocytes # (Manual) 0.2 K/mm3 (1.2-5.4) L 01/16/19 04:16 Abs React Lymphs (Man) 0.0 K/mm3 01/16/19 04:16 Monocytes # (Manual) 0.2 K/mm3 (0.0-0.8) 01/16/19 04:16 Eosinophils # (Manual) 0.0 K/mm3 (0.0-0.4) 01/16/19 04:16 Basophils # (Manual) 0.0 K/mm3 (0.0-0.1) 01/16/19 04:16 Metamyelocytes # 0.0 K/mm3 01/16/19 04:16 Myelocytes # 0.0 K/mm3 01/16/19 04:16 Promyelocytes # 0.0 K/mm3 01/16/19 04:16 Blast Cells # 0.0 K/mm3 01/16/19 04:16 WBC Morphology Not Reportable 01/16/19 04:16 Hypersegmented Neuts Not Reportable 01/16/19 04:16 Hyposegmented Neuts Not Reportable 01/16/19 04:16 Hypogranular Neuts Not Reportable 01/16/19 04:16 Smudge Cells Not Reportable 01/16/19 04:16 Toxic Granulation Not Reportable 01/16/19 04:16 Toxic Vacuolation Not Reportable 01/16/19 04:16 Dohle Bodies Not Reportable 01/16/19 04:16 Pelger-Huet Anomaly Not Reportable 01/16/19 04:16 Cheryl Rods Not Reportable 01/16/19 04:16 Platelet Estimate Consistent w auto 01/16/19 04:16 Clumped Platelets Not Reportable 01/16/19 04:16 Plt Clumps, EDTA Not Reportable 01/16/19 04:16 Large Platelets Not Reportable 01/16/19 04:16 Giant Platelets Not Reportable 01/16/19 04:16 Platelet Satelliting Not Reportable 01/16/19 04:16 Plt Morphology Comment Not Reportable 01/16/19 04:16 RBC Morphology Normal 01/16/19 04:16 Dimorphic RBCs Not Reportable 01/16/19 04:16 Polychromasia Not Reportable 01/16/19 04:16 Hypochromasia Not Reportable 01/16/19 04:16 Poikilocytosis Not Reportable 01/16/19 04:16 Anisocytosis Not Reportable 01/16/19 04:16 Microcytosis Not Reportable 01/16/19 04:16 Macrocytosis Not Reportable 01/16/19 04:16 Spherocytes Not Reportable 01/16/19 04:16 Pappenheimer Bodies Not Reportable 01/16/19 04:16 Sickle Cells Not Reportable 01/16/19 04:16 Target Cells Not Reportable 01/16/19 04:16 Tear Drop Cells Not Reportable 01/16/19 04:16 Ovalocytes Not Reportable 01/16/19 04:16 Helmet Cells Not Reportable 01/16/19 04:16 Bo[place] Bodies Not Reportable 01/16/19 04:16 [place] Rings Not Reportable 01/16/19 04:16 Hinckley Cells Not Reportable 01/16/19 04:16 Bite Cells Not Reportable 01/16/19 04:16 Crenated Cell Not Reportable 01/16/19 04:16 Elliptocytes Not Reportable 01/16/19 04:16 Acanthocytes (Spur) Not Reportable 01/16/19 04:16 Rouleaux Not Reportable 01/16/19 04:16 Hemoglobin C Crystals Not Reportable 01/16/19 04:16 Schistocytes Not Reportable 01/16/19 04:16 Malaria parasites Not Reportable 01/16/19 04:16 Hubert Bodies Not Reportable 01/16/19 04:16 Hem Pathologist Commnt No 01/16/19 04:16 PT 19.7 Sec. (12.2-14.9) H 01/15/19 07:50 INR 1.56 (0.87-1.13) H 01/15/19 07:50 APTT 36.0 Sec. (24.2-36.6) 01/15/19 07:50 POC ABG pH 7.616 (7.35-7.45) H 01/21/19 05:30 POC ABG pCO2 34.2 (35-45) L 01/19/19 21:08 POC ABG pO2 71 (80-105) L 01/21/19 05:30 POC ABG HCO3 27.8 (22-26 mml/L) 01/21/19 05:30 POC ABG Total CO2 29 (23-27mmol/L) 01/21/19 05:30 POC ABG O2 Sat 97 01/21/19 05:30 POC ABG Base Excess 7 ((-2) - (+3)mmol/L) 01/21/19 05:30 FiO2 25 % 01/21/19 05:30 Sodium 139 mmol/L (137-145) 01/18/19 04:21 Potassium 3.9 mmol/L (3.6-5.0) 01/18/19 04:21 Chloride 102.9 mmol/L (98-107) 01/18/19 04:21 Carbon Dioxide 22 mmol/L (22-30) 01/18/19 04:21 Anion Gap 18 mmol/L 01/18/19 04:21 BUN 28 mg/dL (7-17) H 01/18/19 04:21 Creatinine 1.3 mg/dL (0.7-1.2) H 01/18/19 04:21 Estimated GFR 48 ml/min 01/18/19 04:21 BUN/Creatinine Ratio 22 % 01/18/19 04:21 Glucose 128 mg/dL (65-100) H 01/18/19 04:21 POC Glucose 138 (70-105) H 01/21/19 05:34 Hemoglobin A1c 6.0 % (4-6) 01/15/19 11:53 Calcium 8.5 mg/dL (8.4-10.2) 01/18/19 04:21 Total Bilirubin 0.90 mg/dL (0.1-1.2) 01/18/19 04:21 AST 120 units/L (5-40) H 01/18/19 04:21 ALT 24 units/L (7-56) 01/18/19 04:21 Alkaline Phosphatase 48 units/L (35-129) 01/18/19 04:21 Total Creatine Kinase 1430 units/L (30-135) H 01/15/19 17:52 CK-MB (CK-2) 13.5 ng/mL (0.0-4.0) H 01/15/19 17:52 CK-MB (CK-2) Rel Index 0.9 (0-4) 01/15/19 17:52 Troponin T 0.036 ng/mL (0.00-0.029) H D 01/15/19 17:52 NT-Pro-B Natriuret Pep 5346 pg/mL (0-900) H 01/15/19 07:50 Total Protein 5.1 g/dL (6.3-8.2) L 01/18/19 04:21 Albumin 3.0 g/dL (3.9-5) L 01/18/19 04:21 Albumin/Globulin Ratio 1.4 % 01/18/19 04:21 Triglycerides 75 mg/dL (2-149) 01/15/19 17:52 Cholesterol 149 mg/dL (50-199) 01/15/19 17:52 LDL Cholesterol Direct 84 mg/dL (50-130) 01/15/19 17:52 HDL Cholesterol 65 mg/dL (40-59) H 01/15/19 17:52 Cholesterol/HDL Ratio 2.29 % 01/15/19 17:52 Urine Opiates Screen Presumptive negative 01/15/19 16:30 Urine Methadone Screen Presumptive negative 01/15/19 16:30 Ur Barbiturates Screen Presumptive negative 01/15/19 16:30 Ur Phencyclidine Scrn Presumptive negative 01/15/19 16:30 Ur Amphetamines Screen Presumptive negative 01/15/19 16:30 U Benzodiazepines Scrn Presumptive negative 01/15/19 16:30 Urine Cocaine Screen Presumptive negative 01/15/19 16:30 U Marijuana (THC) Screen Presumptive negative 01/15/19 16:30 Drugs of Abuse Note Disclamer 01/15/19 16:30 C. difficile Tox (PCR) Negative (Negative) 01/16/19 00:00 Active Medications - Current Medications Current Medications: Generic Name Dose Route Start Last Admin Trade Name Freq PRN Reason Stop Dose Admin Acetaminophen 650 mg 01/16/19 09:37 01/20/19 00:24 Tylenol PO 650 mg Q4H PRN Administration Fever >101 Albuterol/Ipratropium 1 ampul 01/15/19 14:00 01/21/19 07:30 Duoneb *Not For Prn Use* IH 1 ampul Q6HRT DEON Administration Lipase/Protease/Amylase 1 each 01/15/19 14:[address] 10,500 Unit FEEDTUBE PRN PRN For Clogged Feeding Tube Aspirin 81 mg 01/16/19 10:00 01/21/19 09:05 Baby Aspirin PO 81 mg QDAY DEON Administration Atorvastatin Calcium 20 mg 01/16/19 22:00 01/20/19 21:27 Lipitor PO 20 mg QHS DEON Administration Carvedilol 6.25 mg 01/16/19 12:00 01/21/19 09:06 Coreg PO 6.25 mg BID DEON Administration Famotidine 20 mg 01/15/19 14:00 01/21/19 09:06 Pepcid IV 20 mg DAILY DEON Administration Fondaparinux 2.5 mg 01/20/19 10:00 01/21/19 09:04 Arixtra SUB-Q 2.5 mg QDAY DEON Administration Furosemide 20 mg 01/19/19 18:00 01/21/19 05:44 Lasix PO 20 mg 0600,1800 DEON Administration Ceftriaxone Sodium 2 gm in 100 mls @ 200 mls/hr 01/20/19 15:00 01/21/19 09:10 Rocephin/Ns 2 Gm/100 Ml IV 200 mls/hr Q24HR DEON Administration Protocol Metronidazole 500 mg in 100 mls @ 100 mls/hr 01/20/19 16:00 01/21/19 06:43 Flagyl 500 Mg/100 Ml IV Infused Q8HR DEON Infusion Protocol Levetiracetam 750 mg 01/18/19 10:00 01/21/19 09:05 Keppra PO 750 mg BID DEON Administration Modafinil 100 mg 01/20/19 10:00 01/21/19 09:05 Provigil PO 100 mg QAM DEON Administration Simple Syrup 15 ml 01/15/19 14:37 Simple Syrup FEEDTUBE PRN PRN Hypoglycemia Simple Syrup 30 ml 01/15/19 14:37 Simple Syrup FEEDTUBE PRN PRN Hypoglycemia Sodium Bicarbonate 325 mg 01/15/19 14:37 Sodium Bicarbonate FEEDTUBE PRN PRN For Clogged Feeding Tube Sodium Chloride 10 ml 01/15/19 22:00 01/21/19 09:07 Sodium Chloride Flush Syringe 10 Ml IV 10 ml BID DEON Administration Sodium Chloride 10 ml 01/15/19 10:34 Sodium Chloride Flush Syringe 10 Ml IV PRN PRN LINE FLUSH Nutrition/Malnutrition Assess - Dietary Evaluation Nutrition/Malnutrition Findings: Nutrition Notes Start: 01/15/19 14:28 Freq: Status: Active Protocol: Document 01/18/19 10:28 EB (Rec: 01/18/19 10:30 EB [id number]) Co-Sign 01/18/19 10:28 LP Nutrition Notes Initial or Follow up Reassessment Other Pertinent Diagnosis s/p cardiorespiratory arrest ( at home) Current Diet Glucerna 1.2 at 50 mL/hr Labs/Tests Reviewed Pertinent Medications Dopamine gtt Height 5 ft 4 in Weight 49.3 kg [place] Body Weight (kg) 54.54 BMI 18.6 Subjective/Other Information TF running at goal rate at time of visit and RN states no residuals. Percent of energy/protein needs met: 97%/100% Burn Absent Trauma Absent #1 Nutrition Diagnosis Inadequate oral intake Diagnosis Progress(for reassessment Continues documentation) Is patient on ventilator? Yes Is Patient Ambulatory and/or Out of Bed No REE-([place] [facility]-confined to bed) 1174.212 Kcal/Kg value to use for calculation 30 Approximate Energy Requirements Using 1479 kcal/Kg Calculation Used for Recommendations Kcal/kg Additional Notes Pro needs 1.2-2g/k-100g/ day Fluid needs 1ml/kcal Nutrition Intervention Nutrition Support: Glucerna 1.2 at 50ml/hr with 80ml water flush q4h. Kcal 1,440 Protein (gm) 72 Carbohydrates (gm) 137 Fluid (mL) 966 Fiber (gm) 19 Goal #1 TF tolerance Goal #2 TF to continue to meet 100% energy and pro needs Goal #3 Wt maintenance and/or gain Anticipated Discharge Needs: Unable to identify at this time Follow-Up By: 01/25/19 Additional Comments F/U: TF tolerance
--- NOTE | 2019-01-21 15:32 | Progress Note ---
Assessment and Plan s/p Cardiopulmonary arrest, out of hospital, PEA with ROSC Acute hypoxic-hypercapnic respiratory failure on MVS Acute encephalopathy, metabolic Acute metabolic acidosis Acute renal injury Seizure activity Right lower lobe infiltrate, probably aspiration Pyrexia with leukocytosis Pulmonary HTN RVSP 60 Systolic heart failure EF 35-40% Thrombocytopenia Pyrexia - Granddaughter not at the bedside. Despite of neuroimaging and EEG findings, she wants full aggressive care. -Will get Surgery consult tomorrow for evaluation for trachesotomy and gastrostomy tube placement -Continue full MVS -Wean supplemental oxygen to keep O2 sats 88-90% -Lung protective strategies -Oxygen restrictive strategies -Daily ABGs/CXR for now -VAP bundle addressed -Monitor renal indices closely -Avoid nephrotoxic agents, adjust all medications for CrCL -Strict intake and output monitoring -Daily SAT & SBT -Sedation target for RASS 0 to -1 -Stress ulcer prophylaxis -VTE prophylaxis, -Tube feedings -Aspiration precautions -Accuchecks with glycemic control. Target glucose of 140-180 mg/dL -Bronchodilators with pulmonary hygiene per RT -Maintenance of sleep -wake cycle -Mobility as tolerated by hemodynamics -Influenza and pneumonia vaccination per protocol ..care plan discussed at length with RN/RT at the bedside PROGNOSIS:poor CONDITION: CRITICAL CODE STATUS: FULL CODE The high probability of a clinically significant, sudden or life-threatening deterioration of the [respiratory, neurology, renal] system(s) required my full and direct attention, intervention and personal management. The aggregate critical care time was [35] minutes without overlap. Time includes spent on; [x] Data Review and interpretation [x] Patient assessment and monitoring of vital signs [x] Documentation [x] Medication orders and management Subjective Date of service: 01/21/19 Principal diagnosis: OOH cardiac arrest; Acute hypoxemic-hypercapnic Resp failure; PNA Interval history: Patient is seen today for: OOH cardiopulmonary arrest with ROSC; Acute hypoxemic-hypercapnic respiratory failure on MVS; acute encephalopathy; aspiration pneumonia; Seen and examined at bedside; 24-hour events reviewed; nursing and respiratory care staff consulted; no adverse overnight events reported to me; no fevers, no vomiting, diarrhea is improving Continues to tolerate PSV trials, remains unresponsive Objective Vital Signs - 12hr 01/21/19 01/21/19 01/21/19 03:55 04:00 04:05 Temperature 99.1 F Pulse Rate 87 83 Pulse Rate [ 84 Anterior Bilateral Throughout] Pulse Rate [ From Monitor] Pulse Rate [ Left Dorsalis Pedis] Pulse Rate [ Right Dorsalis Pedis] Respiratory 20 Rate Respiratory 20 Rate [Anterior Bilateral Throughout] Blood Pressure 133/76 130/68 O2 Sat by Pulse 100 Oximetry 01/21/19 01/21/19 01/21/19 04:30 05:00 05:30 Temperature Pulse Rate 87 74 79 Pulse Rate [ Anterior Bilateral Throughout] Pulse Rate [ 80 From Monitor] Pulse Rate [ 80 Left Dorsalis Pedis] Pulse Rate [ 80 Right Dorsalis Pedis] Respiratory 19 20 20 Rate Respiratory Rate [Anterior Bilateral Throughout] Blood Pressure 130/73 137/67 137/68 O2 Sat by Pulse 100 Oximetry 01/21/19 01/21/19 01/21/19 05:52 06:00 06:30 Temperature Pulse Rate 82 90 Pulse Rate [ Anterior Bilateral Throughout] Pulse Rate [ 79 From Monitor] Pulse Rate [ 79 Left Dorsalis Pedis] Pulse Rate [ 79 Right Dorsalis Pedis] Respiratory 20 20 20 Rate Respiratory Rate [Anterior Bilateral Throughout] Blood Pressure 137/71 132/70 O2 Sat by Pulse 98 99 100 Oximetry 01/21/19 01/21/19 01/21/19 07:00 07:26 07:30 Temperature Pulse Rate 90 90 85 Pulse Rate [ 87 Anterior Bilateral Throughout] Pulse Rate [ From Monitor] Pulse Rate [ Left Dorsalis Pedis] Pulse Rate [ Right Dorsalis Pedis] Respiratory 20 20 Rate Respiratory 20 Rate [Anterior Bilateral Throughout] Blood Pressure 123/66 123/66 125/67 O2 Sat by Pulse 100 100 100 Oximetry 01/21/19 01/21/19 01/21/19 07:46 08:00 08:30 Temperature 99.6 F Pulse Rate 87 88 Pulse Rate [ 87 Anterior Bilateral Throughout] Pulse Rate [ From Monitor] Pulse Rate [ Left Dorsalis Pedis] Pulse Rate [ Right Dorsalis Pedis] Respiratory 20 20 Rate Respiratory 22 Rate [Anterior Bilateral Throughout] Blood Pressure 132/64 125/68 O2 Sat by Pulse 98 99 Oximetry 01/21/19 01/21/19 01/21/19 09:00 09:06 09:30 Temperature Pulse Rate 89 87 88 Pulse Rate [ Anterior Bilateral Throughout] Pulse Rate [ 88 From Monitor] Pulse Rate [ 88 Left Dorsalis Pedis] Pulse Rate [ 88 Right Dorsalis Pedis] Respiratory 20 20 Rate Respiratory Rate [Anterior Bilateral Throughout] Blood Pressure 123/65 123/65 108/63 O2 Sat by Pulse 99 100 Oximetry 01/21/19 01/21/19 01/21/19 10:00 10:30 12:00 Temperature 98.4 F Pulse Rate 85 86 Pulse Rate [ Anterior Bilateral Throughout] Pulse Rate [ From Monitor] Pulse Rate [ Left Dorsalis Pedis] Pulse Rate [ Right Dorsalis Pedis] Respiratory 20 20 Rate Respiratory Rate [Anterior Bilateral Throughout] Blood Pressure 109/65 105/58 O2 Sat by Pulse 99 Oximetry 01/21/19 01/21/19 01/21/19 12:07 14:00 14:08 Temperature Pulse Rate 83 Pulse Rate [ 86 84 Anterior Bilateral Throughout] Pulse Rate [ From Monitor] Pulse Rate [ Left Dorsalis Pedis] Pulse Rate [ Right Dorsalis Pedis] Respiratory 23 Rate Respiratory 29 H 16 Rate [Anterior Bilateral Throughout] Blood Pressure 111/59 O2 Sat by Pulse 100 Oximetry Constitutional: no acute distress, other (elderly, atraumatic, normocephalic, chronically looking female) Eyes: non-icteric ENT: oropharynx moist, other (ETT at 23cm) Neck: supple, no lymphadenopathy, no JVD Effort: normal Ascultation: Bilateral: diminished breath sounds, rales (bases), other (coarse breath sound bilaterally upper lobes anteriorly) Percussion: Bilateral: not dull Cardiovascular: regular rate and rhythm, other (tacycardia, S1,S2, no murmurs, gallops or rubs) Gastrointestinal: normoactive bowel sounds, soft, non-tender, non-distended Integumentary: normal Extremities: no cyanosis, no edema, pulses normal, no ischemia or petechiae Neurologic: unable to assess Psychiatric: other (unable to assess secondary to mental status) CBC and BMP: 01/24/19 Unknown 01/24/19 Unknown ABG, PT/INR, D-dimer: ABG POC ABG pH 7.616 (7.35-7.45) H 01/21/19 05:30 POC ABG pCO2 34.2 (35-45) L 01/19/19 21:08 POC ABG pO2 71 (80-105) L 01/21/19 05:30 POC ABG HCO3 27.8 (22-26 mml/L) 01/21/19 05:30 POC ABG Total CO2 29 (23-27mmol/L) 01/21/19 05:30 POC ABG O2 Sat 97 01/21/19 05:30 PT/INR, D-dimer PT 19.7 Sec. (12.2-14.9) H 01/15/19 07:50 INR 1.56 (0.87-1.13) H 01/15/19 07:50 Abnormal lab findings: Abnormal Labs 01/15/19 01/15/19 01/15/19 07:50 07:50 07:50 WBC RBC Hgb Hct MCV 99 H RDW 16.7 H Plt Count 122 L Lymph % (Auto) Lymph # Seg Neutrophils % Seg Neuts % (Manual) Lymphocytes % (Manual) Seg Neutrophils # Seg Neutrophils # Man Lymphocytes # (Manual) PT 19.7 H INR 1.56 H POC ABG pH POC ABG pCO2 POC ABG pO2 Potassium Carbon Dioxide 11 L BUN Creatinine 1.4 H Glucose 268 H POC Glucose Calcium AST 57 H Total Creatine Kinase CK-MB (CK-2) Troponin T NT-Pro-B Natriuret Pep 5346 H Total Protein Albumin 3.6 L HDL Cholesterol 01/15/19 01/15/19 01/15/19 09:56 11:53 17:52 WBC RBC Hgb Hct MCV RDW Plt Count Lymph % (Auto) Lymph # Seg Neutrophils % Seg Neuts % (Manual) Lymphocytes % (Manual) Seg Neutrophils # Seg Neutrophils # Man Lymphocytes # (Manual) PT INR POC ABG pH 7.186 L POC ABG pCO2 46.4 H POC ABG pO2 Potassium Carbon Dioxide BUN Creatinine Glucose POC Glucose Calcium AST Total Creatine Kinase 683 H 1430 H CK-MB (CK-2) 9.5 H 13.5 H Troponin T 0.036 H D NT-Pro-B Natriuret Pep Total Protein Albumin HDL Cholesterol 65 H 01/15/19 01/15/19 01/16/19 18:31 21:46 02:14 WBC RBC Hgb Hct MCV RDW Plt Count Lymph % (Auto) Lymph # Seg Neutrophils % Seg Neuts % (Manual) Lymphocytes % (Manual) Seg Neutrophils # Seg Neutrophils # Man Lymphocytes # (Manual) PT INR POC ABG pH POC ABG pCO2 31.8 L POC ABG pO2 167 H Potassium Carbon Dioxide BUN Creatinine Glucose POC Glucose 134 H 136 H Calcium AST Total Creatine Kinase CK-MB (CK-2) Troponin T NT-Pro-B Natriuret Pep Total Protein Albumin HDL Cholesterol 01/16/19 01/16/19 01/16/19 04:16 04:16 05:05 WBC 11.4 H RBC Hgb Hct MCV RDW Plt Count 105 L Lymph % (Auto) Lymph # Seg Neutrophils % Seg Neuts % (Manual) 74.0 H Lymphocytes % (Manual) 2.0 L Seg Neutrophils # Seg Neutrophils # Man 8.4 H Lymphocytes # (Manual) 0.2 L PT INR POC ABG pH 7.458 H POC ABG pCO2 31.4 L POC ABG pO2 135 H Potassium 3.3 L Carbon Dioxide 21 L D BUN 24 H Creatinine 1.5 H Glucose 141 H POC Glucose Calcium 8.1 L AST 71 H Total Creatine Kinase CK-MB (CK-2) Troponin T NT-Pro-B Natriuret Pep Total Protein 6.2 L Albumin 3.5 L HDL Cholesterol 01/16/19 01/16/19 01/16/19 05:24 13:42 21:08 WBC RBC Hgb Hct MCV RDW Plt Count Lymph % (Auto) Lymph # Seg Neutrophils % Seg Neuts % (Manual) Lymphocytes % (Manual) Seg Neutrophils # Seg Neutrophils # Man Lymphocytes # (Manual) PT INR POC ABG pH POC ABG pCO2 POC ABG pO2 Potassium Carbon Dioxide BUN Creatinine Glucose POC Glucose 137 H 129 H 122 H Calcium AST Total Creatine Kinase CK-MB (CK-2) Troponin T NT-Pro-B Natriuret Pep Total Protein Albumin HDL Cholesterol 01/17/19 01/17/19 01/17/19 02:18 04:23 05:13 WBC RBC Hgb Hct MCV RDW Plt Count Lymph % (Auto) Lymph # Seg Neutrophils % Seg Neuts % (Manual) Lymphocytes % (Manual) Seg Neutrophils # Seg Neutrophils # Man Lymphocytes # (Manual) PT INR POC ABG pH 7.479 H POC ABG pCO2 30.0 L POC ABG pO2 141 H Potassium Carbon Dioxide BUN Creatinine Glucose POC Glucose 139 H 128 H Calcium AST Total Creatine Kinase CK-MB (CK-2) Troponin T NT-Pro-B Natriuret Pep Total Protein Albumin HDL Cholesterol 01/17/19 01/17/19 01/17/19 10:22 15:59 18:45 WBC RBC Hgb Hct MCV RDW Plt Count Lymph % (Auto) Lymph # Seg Neutrophils % Seg Neuts % (Manual) Lymphocytes % (Manual) Seg Neutrophils # Seg Neutrophils # Man Lymphocytes # (Manual) PT INR POC ABG pH POC ABG pCO2 POC ABG pO2 Potassium Carbon Dioxide BUN Creatinine Glucose POC Glucose 133 H 121 H 106 H Calcium AST Total Creatine Kinase CK-MB (CK-2) Troponin T NT-Pro-B Natriuret Pep Total Protein Albumin HDL Cholesterol 01/17/19 01/18/19 01/18/19 23:35 04:21 04:21 WBC RBC 3.27 L Hgb 9.6 L Hct 29.9 L MCV RDW Plt Count 79 L Lymph % (Auto) 6.0 L Lymph # 0.5 L Seg Neutrophils % 89.2 H Seg Neuts % (Manual) Lymphocytes % (Manual) Seg Neutrophils # 8.1 H Seg Neutrophils # Man Lymphocytes # (Manual) PT INR POC ABG pH POC ABG pCO2 POC ABG pO2 Potassium Carbon Dioxide BUN 28 H Creatinine 1.3 H Glucose 129 H POC Glucose 121 H Calcium AST 120 H Total Creatine Kinase CK-MB (CK-2) Troponin T NT-Pro-B Natriuret Pep Total Protein 5.1 L Albumin 3.0 L HDL Cholesterol 01/18/19 01/18/19 01/18/19 04:21 04:36 05:43 WBC RBC Hgb Hct MCV RDW Plt Count Lymph % (Auto) Lymph # Seg Neutrophils % Seg Neuts % (Manual) Lymphocytes % (Manual) Seg Neutrophils # Seg Neutrophils # Man Lymphocytes # (Manual) PT INR POC ABG pH 7.485 H POC ABG pCO2 31.0 L POC ABG pO2 126 H Potassium Carbon Dioxide BUN 28 H Creatinine 1.3 H Glucose 128 H POC Glucose 142 H Calcium AST Total Creatine Kinase CK-MB (CK-2) Troponin T NT-Pro-B Natriuret Pep Total Protein Albumin HDL Cholesterol 01/18/19 01/18/19 01/18/19 12:04 18:16 20:47 WBC RBC Hgb Hct MCV RDW Plt Count Lymph % (Auto) Lymph # Seg Neutrophils % Seg Neuts % (Manual) Lymphocytes % (Manual) Seg Neutrophils # Seg Neutrophils # Man Lymphocytes # (Manual) PT INR POC ABG pH 7.489 H POC ABG pCO2 32.8 L POC ABG pO2 Potassium Carbon Dioxide BUN Creatinine Glucose POC Glucose 113 H 119 H Calcium AST Total Creatine Kinase CK-MB (CK-2) Troponin T NT-Pro-B Natriuret Pep Total Protein Albumin HDL Cholesterol 01/19/19 01/19/19 01/19/19 00:40 05:35 11:39 WBC RBC Hgb Hct MCV RDW Plt Count Lymph % (Auto) Lymph # Seg Neutrophils % Seg Neuts % (Manual) Lymphocytes % (Manual) Seg Neutrophils # Seg Neutrophils # Man Lymphocytes # (Manual) PT INR POC ABG pH POC ABG pCO2 POC ABG pO2 Potassium Carbon Dioxide BUN Creatinine Glucose POC Glucose 137 H 157 H 155 H Calcium AST Total Creatine Kinase CK-MB (CK-2) Troponin T NT-Pro-B Natriuret Pep Total Protein Albumin HDL Cholesterol 01/19/19 01/19/19 01/19/19 18:24 21:08 23:33 WBC RBC Hgb Hct MCV RDW Plt Count Lymph % (Auto) Lymph # Seg Neutrophils % Seg Neuts % (Manual) Lymphocytes % (Manual) Seg Neutrophils # Seg Neutrophils # Man Lymphocytes # (Manual) PT INR POC ABG pH 7.508 H POC ABG pCO2 34.2 L POC ABG pO2 Potassium Carbon Dioxide BUN Creatinine Glucose POC Glucose 145 H 156 H Calcium AST Total Creatine Kinase CK-MB (CK-2) Troponin T NT-Pro-B Natriuret Pep Total Protein Albumin HDL Cholesterol 01/20/19 01/20/19 01/20/19 05:12 11:42 17:36 WBC RBC Hgb Hct MCV RDW Plt Count Lymph % (Auto) Lymph # Seg Neutrophils % Seg Neuts % (Manual) Lymphocytes % (Manual) Seg Neutrophils # Seg Neutrophils # Man Lymphocytes # (Manual) PT INR POC ABG pH POC ABG pCO2 POC ABG pO2 Potassium Carbon Dioxide BUN Creatinine Glucose POC Glucose 152 H 159 H 169 H Calcium AST Total Creatine Kinase CK-MB (CK-2) Troponin T NT-Pro-B Natriuret Pep Total Protein Albumin HDL Cholesterol 01/20/19 01/21/19 01/21/19 23:29 05:30 05:34 WBC RBC Hgb Hct MCV RDW Plt Count Lymph % (Auto) Lymph # Seg Neutrophils % Seg Neuts % (Manual) Lymphocytes % (Manual) Seg Neutrophils # Seg Neutrophils # Man Lymphocytes # (Manual) PT INR POC ABG pH 7.616 H POC ABG pCO2 POC ABG pO2 71 L Potassium Carbon Dioxide BUN Creatinine Glucose POC Glucose 139 H 138 H Calcium AST Total Creatine Kinase CK-MB (CK-2) Troponin T NT-Pro-B Natriuret Pep Total Protein Albumin HDL Cholesterol 01/21/19 12:41 WBC RBC Hgb Hct MCV RDW Plt Count Lymph % (Auto) Lymph # Seg Neutrophils % Seg Neuts % (Manual) Lymphocytes % (Manual) Seg Neutrophils # Seg Neutrophils # Man Lymphocytes # (Manual) PT INR POC ABG pH POC ABG pCO2 POC ABG pO2 Potassium Carbon Dioxide BUN Creatinine Glucose POC Glucose 154 H Calcium AST Total Creatine Kinase CK-MB (CK-2) Troponin T NT-Pro-B Natriuret Pep Total Protein Albumin HDL Cholesterol Allied health notes reviewed: nursing
[2019-01-21 16:24] LABS: Bilirubin,Urine NEG (Negative); Blood,Urine NEG (Negative); Color,Urine Yellow (Yellow); Protein,Urine <15 mg/dL mg/dL (Negative)
[2019-01-22] MEDS: DUONEB *Not for PRN Use IH SCH ×4 (02:42→20:42)
[2019-01-22] MEDS: LASIX PO SCH ×2 (05:44→17:59)
[2019-01-22] MEDS: FLAGYL 500 MG/100 ML 500 MG/100 ML BAG IV SCH ×3 (05:44→22:00)
[2019-01-22] MEDS: ROCEPHIN/NS 2 GM/100 ML 2 GM/100 ML BAG IV SCH (10:06)
[2019-01-22] MEDS: ARIXTRA SUB-Q SCH (10:06)
[2019-01-22] MEDS: COREG PO SCH ×2 (10:07→21:42)
[2019-01-22] MEDS: PROVIGIL PO SCH (10:07)
[2019-01-22] MEDS: KEPPRA PO SCH ×2 (10:09→21:41)
[2019-01-22] MEDS: PEPCID PO SCH (10:09)
[2019-01-22] MEDS: SODIUM CHLORIDE FLUSH SYRINGE 10 ML IV SCH ×2 (10:10→21:42)
[2019-01-22] MEDS: BABY ASPIRIN PO SCH (10:15)
--- NOTE | 2019-01-22 11:04 | Progress Note ---
Assessment and Plan Cultures: Blood culture 01/15/2019 no growth. Stool culture 01/20/2019 no growth today. Trachea asp culture 01/15/2019 upper resp papo. Urine culture 01/21/2019: no growth in 24 hours Blood culture 01/21/2019: in progress Assessment: 73 y/o female with a history of diastolic CHF, cardiomyopathy, CAD s/p sten, pericardial effusion requiring pericardiocentesis (2012), hypertension, COPD with emphysema, CKD and gout: admitted on 01/15/19 after a cardiac arrest. 1) S/p Cardiopulmonary arrest, out of hospital, PEA with ROSC 2) Acute respiratory failure: intubated on SBT 3) Acute encephalopathy: metabolic. Head CT shows no evidence for acute ischemia 4) CARMELINA: improving 5) Seizure activity 6) Sepsis: Improved. no fever in >24 hours. . Etiology possible asp pneumonia, ? central fever, ? drug fever. Trachea asp culture 01/15/2019 upper resp papo. U/A w/o pyuria. Urine culture in progress. 7) Thrombocytopenia: worsening 8) Diarrhea: C diff negative.Stool culture 01/15/2019 no growth. 9) Bladder retention now with cooper Recommendations: - follow-up repeat blood cultures - Continue ceftriaxone and flagy, D3 of D7 - f/u urine culture -monitor CBC and CMP [facility] M: [phone] O:[phone] Subjective Date of service: 01/22/19 Principal diagnosis: OOH cardiac arrest; Acute hypoxemic-hypercapnic Resp failure; PNA Interval history: Patient seen and examined. Remains intubated and unresponsive. No pressors. no fevers. Objective - Exam Narrative Exam: General appearance: intubated on CPAP . Unresponsive Eyes: anicteric sclerae, moist conjunctivae; no lid-lag; PERRLA HENT: Atraumatic; oropharynx +ETT +OGT Neck: Trachea midline; supple, no thyromegaly or lymphadenopathy Lungs: scattered olman rhonchi CV: RRR Abdomen: Soft, non-tender; no masses or hepatosplenomegaly Extremities:olman edema Skin: Normal temperature, turgor and texture; no rash, ulcers or subcutaneous nodules Psych: Calm . Neuro: unresponsive. - Constitutional Vitals: Vital Signs Temp Pulse Resp BP Pulse Ox 98.1 F 88 16 117/59 100 01/22/19 08:00 01/22/19 10:07 01/22/19 09:00 01/22/19 10:07 01/22/19 09:00 Temperature -Last 24 Hours Temperature 98.1 F Temperature 98.8 F Temperature 99.1 F Temperature 98.9 F Temperature 98.4 F - Labs CBC & Chem 7: 01/22/19 15:00 01/22/19 15:00 Labs: Abnormal lab results 01/21/19 01/21/19 01/22/19 Range/Units 12:41 18:47 00:07 POC ABG pH (7.35-7.45) POC Glucose 154 H 174 H 163 H (70-105) 01/22/19 01/22/19 Range/Units 04:35 05:46 POC ABG pH 7.522 H (7.35-7.45) POC Glucose 159 H (70-105)
--- NOTE | 2019-01-22 11:24 | Progress Note ---
Assessment and Plan Patient remains stable from a cardiac standpoint. Remains in SR with rates mostly in 80s and 90s. BPs WNL. We will sign off for now. Patient was seen in conjunction with Dr. Grant Garcia, who agrees with assessment and plan. - Patient Problems (1) Cardiac arrest Current Visit: Yes Status: Acute (2) Respiratory arrest Current Visit: Yes Status: Acute (3) Altered mental status Current Visit: Yes Status: Acute (4) CHF (congestive heart failure) Current Visit: Yes Status: Acute (5) Cardiomyopathy Current Visit: Yes Status: Chronic (6) CKD (chronic kidney disease) Current Visit: Yes Status: Chronic (7) Elevated troponin Current Visit: Yes Status: Acute (8) CAD S/P percutaneous coronary angioplasty Current Visit: Yes Status: Chronic (9) Stroke Current Visit: No Status: Chronic (10) COPD (chronic obstructive pulmonary disease) with emphysema Current Visit: Yes Status: Acute (11) Gout Current Visit: No Status: Chronic Subjective Date of service: 01/22/19 Principal diagnosis: OOH cardiac arrest; Acute hypoxemic-hypercapnic Resp failure; PNA Interval history: Patient remains intubated. Withdraws from pain, but does not follow commands. Objective Last Vital Signs Temp 98.1 F 01/22/19 08:00 Pulse 88 01/22/19 10:07 Resp 16 01/22/19 09:00 BP 117/59 01/22/19 10:07 Pulse Ox 100 01/22/19 09:00 - Physical Examination General: Other (intubated. ) Cardiac: Positive: Reg Rate and Rhythm, Audible Murmur Lungs: Positive: Ventilated Respirations, Other (coarse) Neuro: Positive: Other (withdraws from pain. ) Abdomen: Positive: Unremarkable Skin: Positive: Other (dry) Extremities: Absent: edema - Imaging and Cardiology EKG: image reviewed Echo: report reviewed (moderate global hypokinesis of LV, EF 35-40%, impaired LV diastolic filling, moderate MR and TR, moderate pulm htn.), other - Telemetry EKG Rhythm: Sinus Rhythm Chamber hypertrophy or enlargement: left ventricular hypertro Repolarization changes or abnormalities: ST or T wave suggestive of ischemia - Allied health notes Allied health notes reviewed: nursing
--- NOTE | 2019-01-22 12:55 | Progress Note ---
Assessment and Plan Assessment and plan: The high probability of a clinically significant, sudden or life threatening deterioration of the [] system(s) required my full and direct attention, intervention and personal management. The aggregate critical care time was [] minutes. This time is in addition to time spent performing reported procedures but includes the following: [x] Data Review and interpretation [x] Patient assessment and monitoring of vital signs [x] Documentation [x] Medication orders and management - Patient Problems (1) Altered mental status Current Visit: Yes Status: Acute Plan to address problem: At this point patient has developed some anoxic encephalopathy. Has had minimal strides. Not sure how far back to baseline she will get. Family willing to take a more conservative approach and PEG and tracheostomy. (2) CHF (congestive heart failure) Current Visit: Yes Status: Acute Plan to address problem: At present fairly well compensated ejection fraction 35%. Continue beta leah and diaphoresis when necessary. At present very well compensated. (3) COPD (chronic obstructive pulmonary disease) with emphysema Current Visit: Yes Status: Acute Plan to address problem: Patient remains intubated. Minimal wheezing. (4) Respiratory arrest Current Visit: Yes Status: Acute Plan to address problem: Acute respiratory failure secondary to cardiorespiratory arrest now aspiration pneumonia continue current IV antibiotics. Appears to be very difficult wean now. Patient not as responsive will most likely require PEG tube and tracheostomy. [place] with daughter about procedure granddaughter. (5) CAD S/P percutaneous coronary angioplasty Current Visit: Yes Status: Chronic Plan to address problem: Patient without any chest pain. r. Patient remains chest pain-free. (6) CKD (chronic kidney disease) Current Visit: Yes Status: Chronic Plan to address problem: Acute on chronic kidney disease appears to be improving this particular time. Continue present hydration of electrolytes. History Interval history: Patient remains intubated. NG tube for feeding. No further improvement since last Tuesday. Hospitalist Physical - Constitutional Vitals: Temp Pulse Resp BP Pulse Ox 98.7 F 83 26 H 93/63 100 01/22/19 12:20 01/22/19 12:00 01/22/19 12:00 01/22/19 12:00 01/22/19 11:30 General appearance: Present: no acute distress, well-nourished, other (intubated) - EENT ENT: hearing intact, poor dentition, no thrush, no ulcerations - Neck Neck: Present: supple, normal ROM. Absent: rigidity, enlarged thyroid, masses or JVD, cervical LAD - Respiratory Respiratory: bilateral: diminished, wheezing - Cardiovascular Rhythm: regular Heart Sounds: Present: systolic murmur - Extremities Extremities: no ischemia, pulses intact, pulses symmetrical, No edema, normal temperature Peripheral Pulses: within normal limits - Abdominal General gastrointestinal: soft, non-tender, non-distended, normal bowel sounds, no hepatomegaly, no splenomegaly - Integumentary Integumentary: Present: clear, warm, dry - Neurologic Neurologic: focal deficits Results - Labs CBC & Chem 7: 01/18/19 04:21 01/18/19 04:21 Labs: Laboratory Last Values WBC 9.1 K/mm3 (4.5-11.0) 01/18/19 04:21 RBC 3.27 M/mm3 (3.65-5.03) L 01/18/19 04:21 Hgb 9.6 gm/dl (10.1-14.3) L 01/18/19 04:21 Hct 29.9 % (30.3-42.9) L 01/18/19 04:21 MCV 88 fl (79-97) 01/18/19 04:21 MCH 29 pg (28-32) 01/18/19 04:21 MCHC 34 % (30-34) 01/18/19 04:21 RDW 14.8 % (13.2-15.2) 01/18/19 04:21 Plt Count 79 K/mm3 (140-440) L 01/18/19 04:21 Lymph % (Auto) 6.0 % (13.4-35.0) L 01/18/19 04:21 [place] % (Auto) 4.5 % (0.0-7.3) 01/18/19 04:21 Eos % (Auto) 0.1 % (0.0-4.3) 01/18/19 04:21 Baso % (Auto) 0.2 % (0.0-1.8) 01/18/19 04:21 Lymph # 0.5 K/mm3 (1.2-5.4) L 01/18/19 04:21 [place] # 0.4 K/mm3 (0.0-0.8) 01/18/19 04:21 Eos # 0.0 K/mm3 (0.0-0.4) 01/18/19 04:21 Baso # 0.0 K/mm3 (0.0-0.1) 01/18/19 04:21 Add Manual Diff Complete 01/16/19 04:16 Total Counted 100 01/16/19 04:16 Seg Neutrophils % 89.2 % (40.0-70.0) H 01/18/19 04:21 Seg Neuts % (Manual) 74.0 % (40.0-70.0) H 01/16/19 04:16 Band Neutrophils % 22.0 % 01/16/19 04:16 Lymphocytes % (Manual) 2.0 % (13.4-35.0) L 01/16/19 04:16 Reactive Lymphs % (Man) 0 % 01/16/19 04:16 Monocytes % (Manual) 2.0 % (0.0-7.3) 01/16/19 04:16 Eosinophils % (Manual) 0 % (0.0-4.3) 01/16/19 04:16 Basophils % (Manual) 0 % (0.0-1.8) 01/16/19 04:16 Metamyelocytes % 0 % 01/16/19 04:16 Myelocytes % 0 % 01/16/19 04:16 Promyelocytes % 0 % 01/16/19 04:16 Blast Cells % 0 % 01/16/19 04:16 Nucleated RBC % Not Reportable 01/16/19 04:16 Seg Neutrophils # 8.1 K/mm3 (1.8-7.7) H 01/18/19 04:21 Seg Neutrophils # Man 8.4 K/mm3 (1.8-7.7) H 01/16/19 04:16 Band Neutrophils # 2.5 K/mm3 01/16/19 04:16 Lymphocytes # (Manual) 0.2 K/mm3 (1.2-5.4) L 01/16/19 04:16 Abs React Lymphs (Man) 0.0 K/mm3 01/16/19 04:16 Monocytes # (Manual) 0.2 K/mm3 (0.0-0.8) 01/16/19 04:16 Eosinophils # (Manual) 0.0 K/mm3 (0.0-0.4) 01/16/19 04:16 Basophils # (Manual) 0.0 K/mm3 (0.0-0.1) 01/16/19 04:16 Metamyelocytes # 0.0 K/mm3 01/16/19 04:16 Myelocytes # 0.0 K/mm3 01/16/19 04:16 Promyelocytes # 0.0 K/mm3 01/16/19 04:16 Blast Cells # 0.0 K/mm3 01/16/19 04:16 WBC Morphology Not Reportable 01/16/19 04:16 Hypersegmented Neuts Not Reportable 01/16/19 04:16 Hyposegmented Neuts Not Reportable 01/16/19 04:16 Hypogranular Neuts Not Reportable 01/16/19 04:16 Smudge Cells Not Reportable 01/16/19 04:16 Toxic Granulation Not Reportable 01/16/19 04:16 Toxic Vacuolation Not Reportable 01/16/19 04:16 Dohle Bodies Not Reportable 01/16/19 04:16 Pelger-Huet Anomaly Not Reportable 01/16/19 04:16 Cheryl Rods Not Reportable 01/16/19 04:16 Platelet Estimate Consistent w auto 01/16/19 04:16 Clumped Platelets Not Reportable 01/16/19 04:16 Plt Clumps, EDTA Not Reportable 01/16/19 04:16 Large Platelets Not Reportable 01/16/19 04:16 Giant Platelets Not Reportable 01/16/19 04:16 Platelet Satelliting Not Reportable 01/16/19 04:16 Plt Morphology Comment Not Reportable 01/16/19 04:16 RBC Morphology Normal 01/16/19 04:16 Dimorphic RBCs Not Reportable 01/16/19 04:16 Polychromasia Not Reportable 01/16/19 04:16 Hypochromasia Not Reportable 01/16/19 04:16 Poikilocytosis Not Reportable 01/16/19 04:16 Anisocytosis Not Reportable 01/16/19 04:16 Microcytosis Not Reportable 01/16/19 04:16 Macrocytosis Not Reportable 01/16/19 04:16 Spherocytes Not Reportable 01/16/19 04:16 Pappenheimer Bodies Not Reportable 01/16/19 04:16 Sickle Cells Not Reportable 01/16/19 04:16 Target Cells Not Reportable 01/16/19 04:16 Tear Drop Cells Not Reportable 01/16/19 04:16 Ovalocytes Not Reportable 01/16/19 04:16 Helmet Cells Not Reportable 01/16/19 04:16 [place] Bodies Not Reportable 01/16/19 04:16 Jayess Rings Not Reportable 01/16/19 04:16 [place] Cells Not Reportable 01/16/19 04:16 Bite Cells Not Reportable 01/16/19 04:16 Crenated Cell Not Reportable 01/16/19 04:16 Elliptocytes Not Reportable 01/16/19 04:16 Acanthocytes (Spur) Not Reportable 01/16/19 04:16 Rouleaux Not Reportable 01/16/19 04:16 Hemoglobin C Crystals Not Reportable 01/16/19 04:16 Schistocytes Not Reportable 01/16/19 04:16 Malaria parasites Not Reportable 01/16/19 04:16 Hubert Bodies Not Reportable 01/16/19 04:16 Hem Pathologist Commnt No 01/16/19 04:16 PT 19.7 Sec. (12.2-14.9) H 01/15/19 07:50 INR 1.56 (0.87-1.13) H 01/15/19 07:50 APTT 36.0 Sec. (24.2-36.6) 01/15/19 07:50 POC ABG pH 7.522 (7.35-7.45) H 01/22/19 04:35 POC ABG pCO2 36.3 (35-45) 01/22/19 04:35 POC ABG pO2 94 (80-105) 01/22/19 04:35 POC ABG HCO3 29.8 (22-26 mml/L) 01/22/19 04:35 POC ABG Total CO2 31 (23-27mmol/L) 01/22/19 04:35 POC ABG O2 Sat 98 01/22/19 04:35 POC ABG Base Excess 7 ((-2) - (+3)mmol/L) 01/22/19 04:35 FiO2 25 % 01/22/19 04:35 Sodium 139 mmol/L (137-145) 01/18/19 04:21 Potassium 3.9 mmol/L (3.6-5.0) 01/18/19 04:21 Chloride 102.9 mmol/L (98-107) 01/18/19 04:21 Carbon Dioxide 22 mmol/L (22-30) 01/18/19 04:21 Anion Gap 18 mmol/L 01/18/19 04:21 BUN 28 mg/dL (7-17) H 01/18/19 04:21 Creatinine 1.3 mg/dL (0.7-1.2) H 01/18/19 04:21 Estimated GFR 48 ml/min 01/18/19 04:21 BUN/Creatinine Ratio 22 % 01/18/19 04:21 Glucose 128 mg/dL (65-100) H 01/18/19 04:21 POC Glucose 159 (70-105) H 01/22/19 05:46 Hemoglobin A1c 6.0 % (4-6) 01/15/19 11:53 Calcium 8.5 mg/dL (8.4-10.2) 01/18/19 04:21 Total Bilirubin 0.90 mg/dL (0.1-1.2) 01/18/19 04:21 AST 120 units/L (5-40) H 01/18/19 04:21 ALT 24 units/L (7-56) 01/18/19 04:21 Alkaline Phosphatase 48 units/L (35-129) 01/18/19 04:21 Total Creatine Kinase 1430 units/L (30-135) H 01/15/19 17:52 CK-MB (CK-2) 13.5 ng/mL (0.0-4.0) H 01/15/19 17:52 CK-MB (CK-2) Rel Index 0.9 (0-4) 01/15/19 17:52 Troponin T 0.036 ng/mL (0.00-0.029) H D 01/15/19 17:52 NT-Pro-B Natriuret Pep 5346 pg/mL (0-900) H 01/15/19 07:50 Total Protein 5.1 g/dL (6.3-8.2) L 01/18/19 04:21 Albumin 3.0 g/dL (3.9-5) L 01/18/19 04:21 Albumin/Globulin Ratio 1.4 % 01/18/19 04:21 Triglycerides 75 mg/dL (2-149) 01/15/19 17:52 Cholesterol 149 mg/dL (50-199) 01/15/19 17:52 LDL Cholesterol Direct 84 mg/dL (50-130) 01/15/19 17:52 HDL Cholesterol 65 mg/dL (40-59) H 01/15/19 17:52 Cholesterol/HDL Ratio 2.29 % 01/15/19 17:52 Urine Color Yellow (Yellow) 01/21/19 16:10 Urine Turbidity Clear (Clear) 01/21/19 16:10 Urine pH 6.0 (5.0-7.0) 01/21/19 16:10 Ur Specific [place] 1.015 (1.003-1.030) 01/21/19 16:10 Urine Protein <15 mg/dl mg/dL (Negative) 01/21/19 16:10 Urine Glucose (UA) Neg mg/dL (Negative) 01/21/19 16:10 Urine Ketones Neg mg/dL (Negative) 01/21/19 16:10 Urine Blood Neg (Negative) 01/21/19 16:10 Urine Nitrite Neg (Negative) 01/21/19 16:10 Urine Bilirubin Neg (Negative) 01/21/19 16:10 Urine Urobilinogen 2.0 mg/dL (<2.0) 01/21/19 16:10 Ur Leukocyte Esterase Neg (Negative) 01/21/19 16:10 Urine WBC (Auto) 1.0 /HPF (0.0-6.0) 01/21/19 16:10 Urine RBC (Auto) 5.0 /HPF (0.0-6.0) 01/21/19 16:10 Urine Opiates Screen Presumptive negative 01/15/19 16:30 Urine Methadone Screen Presumptive negative 01/15/19 16:30 Ur Barbiturates Screen Presumptive negative 01/15/19 16:30 Ur Phencyclidine Scrn Presumptive negative 01/15/19 16:30 Ur Amphetamines Screen Presumptive negative 01/15/19 16:30 U Benzodiazepines Scrn Presumptive negative 01/15/19 16:30 Urine Cocaine Screen Presumptive negative 01/15/19 16:30 U Marijuana (THC) Screen Presumptive negative 01/15/19 16:30 Drugs of Abuse Note Disclamer 01/15/19 16:30 C. difficile Tox (PCR) Negative (Negative) 01/16/19 00:00 - Imaging and Cardiology Abdominal x-ray: report reviewed, image reviewed CT Scan - head: report reviewed, image reviewed Active Medications - Current Medications Current Medications: Generic Name Dose Route Start Last Admin Trade Name Freq PRN Reason Stop Dose Admin Acetaminophen 650 mg 01/16/19 09:37 01/20/19 00:24 Tylenol PO 650 mg Q4H PRN Administration Fever >101 Albuterol/Ipratropium 1 ampul 01/15/19 14:00 01/22/19 08:30 Duoneb *Not For Prn Use* IH 1 ampul Q6HRT DEON Administration Lipase/Protease/Amylase 1 each 01/15/19 14:37 Pancreaze 10,500 Unit FEEDTUBE PRN PRN For Clogged Feeding Tube Aspirin 81 mg 01/16/19 10:00 01/22/19 10:15 Baby Aspirin PO 81 mg QDAY DEON Administration Atorvastatin Calcium 20 mg 01/16/19 22:00 01/21/19 21:50 Lipitor PO 20 mg QHS DEON Administration Carvedilol 6.25 mg 01/16/19 12:00 01/22/19 10:07 Coreg PO 6.25 mg BID DEON Administration Famotidine 20 mg 01/22/19 10:00 01/22/19 10:09 Pepcid PO 20 mg DAILY DEON Administration Fondaparinux 2.5 mg 01/20/19 10:00 01/22/19 10:06 Arixtra SUB-Q 2.5 mg QDAY DEON Administration Furosemide 20 mg 01/19/19 18:00 01/22/19 05:44 Lasix PO 20 mg 0600,1800 DEON Administration Ceftriaxone Sodium 2 gm in 100 mls @ 200 mls/hr 01/20/19 15:00 01/22/19 10:06 Rocephin/Ns 2 Gm/100 Ml IV 200 mls/hr Q24HR DEON Administration Protocol Metronidazole 500 mg in 100 mls @ 100 mls/hr 01/20/19 16:00 01/22/19 05:44 Flagyl 500 Mg/100 Ml IV 100 mls/hr Q8HR DEON Administration Protocol Levetiracetam 750 mg 01/18/19 10:00 01/22/19 10:09 Keppra PO 750 mg BID DEON Administration Modafinil 100 mg 01/20/19 10:00 01/22/19 10:07 Provigil PO 100 mg QAM DEON Administration Simple Syrup 15 ml 01/15/19 14:37 Simple Syrup FEEDTUBE PRN PRN Hypoglycemia Simple Syrup 30 ml 01/15/19 14:37 Simple Syrup FEEDTUBE PRN PRN Hypoglycemia Sodium Bicarbonate 325 mg 01/15/19 14:37 Sodium Bicarbonate FEEDTUBE PRN PRN For Clogged Feeding Tube Sodium Chloride 10 ml 01/15/19 22:00 01/22/19 10:10 Sodium Chloride Flush Syringe 10 Ml IV 10 ml BID DEON Administration Sodium Chloride 10 ml 01/15/19 10:34 Sodium Chloride Flush Syringe 10 Ml IV PRN PRN LINE FLUSH Nutrition/Malnutrition Assess - Dietary Evaluation Nutrition/Malnutrition Findings: Nutrition Notes Start: 01/15/19 14:28 Freq: Status: Active Protocol: Document 01/18/19 10:28 EB (Rec: 01/18/19 10:30 EB [id number]) Co-Sign 01/18/19 10:28 LP Nutrition Notes Initial or Follow up Reassessment Other Pertinent Diagnosis s/p cardiorespiratory arrest ( at home) Current Diet Glucerna 1.2 at 50 mL/hr Labs/Tests Reviewed Pertinent Medications Dopamine gtt Height 5 ft 4 in Weight 49.3 kg [place] Body Weight (kg) 54.54 BMI 18.6 Subjective/Other Information TF running at goal rate at time of visit and RN states no residuals. Percent of energy/protein needs met: 97%/100% Burn Absent Trauma Absent #1 Nutrition Diagnosis Inadequate oral intake Diagnosis Progress(for reassessment Continues documentation) Is patient on ventilator? Yes Is Patient Ambulatory and/or Out of Bed No REE-([facility]-confined to bed) 1174.212 Kcal/Kg value to use for calculation 30 Approximate Energy Requirements Using 1479 kcal/Kg Calculation Used for Recommendations Kcal/kg Additional Notes Pro needs 1.2-2g/k-100g/ day Fluid needs 1ml/kcal Nutrition Intervention Nutrition Support: Glucerna 1.2 at 50ml/hr with 80ml water flush q4h. Kcal 1,440 Protein (gm) 72 Carbohydrates (gm) 137 Fluid (mL) 966 Fiber (gm) 19 Goal #1 TF tolerance Goal #2 TF to continue to meet 100% energy and pro needs Goal #3 Wt maintenance and/or gain Anticipated Discharge Needs: Unable to identify at this time Follow-Up By: 01/25/19 Additional Comments F/U: TF tolerance
--- NOTE | 2019-01-22 14:06 | Consultation ---
History of Present Illness Consult date: 01/22/19 Reason for consult: other (trach/Peg eval) Requesting physician: ASHLEIGH LAUREANO Chief complaint: hypoxic encephalopathy - History of present illness History of present illness: 73yo F with multiple medical problems suffered a respiratory arrest outside of the hospital. Pt was resuscitated and able to be weaned on the vent to pressure support ventilation. However, she is not waking up at this point. Pt has been assessed to have a hypoxic injury to the brain. As she is not able to protect her airway at this time, we are asked to evaluate her for trach and PEG. Pt unab le to give any history. No family able to be reached at this time. Past History Past Medical History: CAD (stent placement), COPD, heart failure, hypertension, stroke, other (Emphesema) Past Surgical History: PTCA Social history: Lives alone, smoking, alcohol abuse (Drinks alcohol daily), full code Family history: CAD, hypertension Medications and Allergies Allergies Allergy/AdvReac Type Severity Reaction Status Date / Time enoxaparin AdvReac Unknown Verified 01/19/19 11:02 Home Medications Medication Instructions Recorded Confirmed Last Taken Type AtorvaSTATin [Lipitor] 20 mg PO QHS 01/15/19 01/15/19 Unknown History Carvedilol [Coreg] 25 mg PO DAILY 01/15/19 01/15/19 Unknown History Furosemide [Lasix] 80 mg PO QWEEK 01/15/19 01/15/19 Unknown History Irbesartan 150 mg PO DAILY 01/15/19 01/15/19 Unknown History amLODIPine [Norvasc] 10 mg PO DAILY 01/15/19 01/15/19 Unknown History Active Meds: Active Medications Acetaminophen (Tylenol) 650 mg PO Q4H PRN PRN Reason: Fever >101 Last Admin: 01/20/19 00:24 Dose: 650 mg Documented by: Albuterol/Ipratropium (Duoneb *Not For Prn Use*) 1 ampul IH Q6HRT [facility] Last Admin: 01/22/19 08:30 Dose: 1 ampul Documented by: Lipase/Protease/Amylase (Carie Siddiqui 10,500 Unit) 1 each FEEDTUBE PRN PRN PRN Reason: For Clogged Feeding Tube Aspirin (Baby Aspirin) 81 mg PO QDAY [facility] Last Admin: 01/22/19 10:15 Dose: 81 mg Documented by: Atorvastatin Calcium (Lipitor) 20 mg PO QHS [facility] Last Admin: 01/21/19 21:50 Dose: 20 mg Documented by: Carvedilol (Coreg) 6.25 mg PO BID [facility] Last Admin: 01/22/19 10:07 Dose: 6.25 mg Documented by: Famotidine (Pepcid) 20 mg PO DAILY [facility] Last Admin: 01/22/19 10:09 Dose: 20 mg Documented by: Fondaparinux (Arixtra) 2.5 mg SUB-Q QDAY [facility] Last Admin: 01/22/19 10:06 Dose: 2.5 mg Documented by: Furosemide (Lasix) 20 mg PO 0600,1800 [facility] Last Admin: 01/22/19 05:44 Dose: 20 mg Documented by: Ceftriaxone Sodium (Rocephin/Ns 2 Gm/100 Ml) 2 gm in 100 mls @ 200 mls/hr IV Q24HR [facility]; Protocol Last Admin: 01/22/19 10:06 Dose: 200 mls/hr Documented by: Metronidazole (Flagyl 500 Mg/100 Ml) 500 mg in 100 mls @ 100 mls/hr IV Q8HR [facility]; Protocol Last Admin: 01/22/19 13:28 Dose: 100 mls/hr Documented by: Insulin Human Lispro (Humalog) 0 unit SUB-Q Q6HR [facility]; Protocol Levetiracetam (Keppra) 750 mg PO BID [facility] Last Admin: 01/22/19 10:09 Dose: 750 mg Documented by: Modafinil (Provigil) 100 mg PO QAM [facility] Last Admin: 01/22/19 10:07 Dose: 100 mg Documented by: Simple Syrup (Simple Syrup) 15 ml FEEDTUBE PRN PRN PRN Reason: Hypoglycemia Simple Syrup (Simple Syrup) 30 ml FEEDTUBE PRN PRN PRN Reason: Hypoglycemia Sodium Bicarbonate (Sodium Bicarbonate) 325 mg FEEDTUBE PRN PRN PRN Reason: For Clogged Feeding Tube Sodium Chloride (Sodium Chloride Flush Syringe 10 Ml) 10 ml IV BID [facility] Last Admin: 01/22/19 10:10 Dose: 10 ml Documented by: Sodium Chloride (Sodium Chloride Flush Syringe 10 Ml) 10 ml IV PRN PRN PRN Reason: LINE FLUSH Review of Systems ROS unobtainable: due to endotracheal tube, due to mental status Exam Vital Signs Pulse Resp 113 H 14 01/15/19 07:34 01/15/19 07:34 - General physical appearance Positive: no distress, no pain - ENT Positive: other (ETT in place) - Neck Positive: no masses, no bruits, trachea midline, no venous distension - Respiratory Positive: normal expansion, normal respiratory effort, clear to auscultation - Cardiovascular Rhythm: regular - Abdomen Abdomen: Present: soft. Absent: tender, distended, guarding, rigid, surgical scars - Integumentary no rash, no growths, no abnormal pigmentation Results - Labs 01/18/19 04:21 01/18/19 04:21 Abnormal lab results 01/21/19 01/22/19 01/22/19 Range/Units 18:47 00:07 04:35 POC ABG pH 7.522 H (7.35-7.45) POC Glucose 174 H 163 H (70-105) 01/22/19 01/22/19 Range/Units 05:46 12:18 POC ABG pH (7.35-7.45) POC Glucose 159 H 137 H (70-105) - Imaging Chest x-ray: report reviewed, image reviewed CT scan - chest: report reviewed, image reviewed Assessment and Plan - Patient Problems (1) Respiratory arrest Current Visit: Yes Status: Acute Plan to address problem: Pt stable. Appears to be an adequate candidate for trach/PEG. Attempted to reach POA (Ms. Mason). Unable to leave voicemail. Will try again tomorrow to get consent. Please call with questions. Time=30min
--- NOTE | 2019-01-22 14:22 | Progress Note ---
Assessment and Plan s/p Cardiopulmonary arrest, out of hospital, PEA with ROSC Acute hypoxic-hypercapnic respiratory failure on MVS Acute encephalopathy, metabolic Acute metabolic acidosis Acute renal injury Seizure activity Right lower lobe infiltrate, probably aspiration Pyrexia with leukocytosis Pulmonary HTN RVSP 60 Systolic heart failure EF 35-40% Thrombocytopenia (AMS is rate limiting step to safe extubation at this point) - CBC & BMP ordered (will follow) - surgery consult placed for tracheostomy - continue provigil - follow HIT assay - continue Arixtra and follow platelet count - continue and de-escalate AB's per ID rec's - continue set rate at 12/min on MVS - neurology evaluation ongoing - Gentle diuresis with oral lasix (now 20mg bid) - continue alex SAT's & SBT's - sedation target for RASS 0 to -1 - continue GO & VTE prophylaxis - Bronchodilators with pulmonary hygiene per RT - continue to wean supplemental oxygen to keep O2 sats 88-90% - Lung protective strategies - prn ABGs/CXR going forwards - VAP bundle addressed - Continue cardioprotective measures - Replete electrolytes as indicated - Currently on rocephin and flagyl, follow cultures and adjust antibiotics for ID/MAMADOU - Tracheal aspirate, blood cultures are negative to date - Continue bronchodilators with pulmonary hygiene per RT - Cooper catheter placed for acute urinary retention. Plan to discontinue cooper in the next 24 hours and monitor - Continue to rest at night on full MVS - Monitor renal indices closely - Avoid nephrotoxic agents, adjust all medications for CrCL - Strict intake and output monitoring - Tube feedings - Accuchecks with glycemic control. Target glucose of 140-180 mg/dL - Maintenance of sleep -wake cycle - Mobility as tolerated by hemodynamics - Influenza and pneumonia vaccination per protocol ..care plan discussed at length with RN/RT at the bedside ..discussed in ICU-IDT rounds PROGNOSIS: GUARDED CONDITION: CRITICAL CODE STATUS: FULL CODE The high probability of a clinically significant, sudden or life-threatening deterioration of the [respiratory, neurology, renal] system(s) required my full and direct attention, intervention and personal management. The aggregate critical care time was [34] minutes without overlap. Time includes spent on; [x] Data Review and interpretation [x] Patient assessment and monitoring of vital signs [x] Documentation [x] Medication orders and management Subjective Date of service: 01/22/19 Principal diagnosis: OOH cardiac arrest; Acute hypoxemic-hypercapnic Resp failu re; PNA Interval history: Patient is seen today for: OOH cardiopulmonary arrest with ROSC; Acute hypoxemic-hypercapnic respiratory failure on MVS; acute encephalopathy; aspiration pneumonia; Seen and examined at bedside; 24hour events reviewed; nursing and respiratory care staff consulted; no adverse overnight events reported to me; remains on MVS; AMS is persistent; still tolerating PSV trials; remains on Provigil; no emesis or overt aspiration reported Objective Vital Signs - 12hr 01/22/19 01/22/19 01/22/19 02:30 02:44 02:45 Temperature Pulse Rate 79 80 Pulse Rate [ 77 Anterior Bilateral Throughout] Pulse Rate [ From Monitor] Respiratory 16 Rate Respiratory 16 Rate [Anterior Bilateral Throughout] Blood Pressure 112/63 112/63 O2 Sat by Pulse 100 100 Oximetry 01/22/19 01/22/19 01/22/19 03:00 03:30 04:00 Temperature 98.8 F Pulse Rate 78 86 93 H Pulse Rate [ Anterior Bilateral Throughout] Pulse Rate [ From Monitor] Respiratory 16 16 16 Rate Respiratory Rate [Anterior Bilateral Throughout] Blood Pressure 109/61 117/60 127/63 O2 Sat by Pulse 100 Oximetry 01/22/19 01/22/19 01/22/19 04:30 05:00 05:30 Temperature Pulse Rate 82 78 79 Pulse Rate [ Anterior Bilateral Throughout] Pulse Rate [ 80 From Monitor] Respiratory 16 16 16 Rate Respiratory Rate [Anterior Bilateral Throughout] Blood Pressure 112/65 118/66 114/62 O2 Sat by Pulse 99 100 100 Oximetry 01/22/19 01/22/19 01/22/19 05:38 06:00 06:30 Temperature Pulse Rate 79 80 Pulse Rate [ 76 Anterior Bilateral Throughout] Pulse Rate [ From Monitor] Respiratory 16 16 Rate Respiratory 18 Rate [Anterior Bilateral Throughout] Blood Pressure 118/62 118/63 O2 Sat by Pulse 100 100 Oximetry 01/22/19 01/22/19 01/22/19 07:00 07:30 08:00 Temperature 98.1 F Pulse Rate 80 84 89 Pulse Rate [ Anterior Bilateral Throughout] Pulse Rate [ From Monitor] Respiratory 16 16 19 Rate Respiratory Rate [Anterior Bilateral Throughout] Blood Pressure 115/63 120/61 136/66 O2 Sat by Pulse 100 99 100 Oximetry 01/22/19 01/22/19 01/22/19 08:05 08:25 08:30 Temperature 98.1 F Pulse Rate 87 86 Pulse Rate [ 85 Anterior Bilateral Throughout] Pulse Rate [ From Monitor] Respiratory 33 H 30 H Rate Respiratory 31 H Rate [Anterior Bilateral Throughout] Blood Pressure 136/66 123/63 O2 Sat by Pulse 99 100 Oximetry 01/22/19 01/22/19 01/22/19 08:48 09:00 09:30 Temperature Pulse Rate 84 85 Pulse Rate [ 87 Anterior Bilateral Throughout] Pulse Rate [ 86 From Monitor] Respiratory 29 H 27 H Rate Respiratory 22 Rate [Anterior Bilateral Throughout] Blood Pressure 113/62 109/64 O2 Sat by Pulse 100 100 Oximetry 01/22/19 01/22/19 01/22/19 10:00 10:07 10:30 Temperature Pulse Rate 88 88 85 Pulse Rate [ Anterior Bilateral Throughout] Pulse Rate [ From Monitor] Respiratory 29 H 27 H Rate Respiratory Rate [Anterior Bilateral Throughout] Blood Pressure 117/59 117/59 117/64 O2 Sat by Pulse 98 95 Oximetry 01/22/19 01/22/19 01/22/19 11:00 11:30 12:00 Temperature Pulse Rate 84 84 83 Pulse Rate [ Anterior Bilateral Throughout] Pulse Rate [ From Monitor] Respiratory 22 16 26 H Rate Respiratory Rate [Anterior Bilateral Throughout] Blood Pressure 97/60 103/60 93/63 O2 Sat by Pulse 100 100 Oximetry 01/22/19 01/22/19 12:20 13:35 Temperature 98.7 F Pulse Rate 85 Pulse Rate [ Anterior Bilateral Throughout] Pulse Rate [ From Monitor] Respiratory 20 Rate Respiratory Rate [Anterior Bilateral Throughout] Blood Pressure 110/58 O2 Sat by Pulse 95 Oximetry Constitutional: no acute distress, other (elderly, atraumatic, normocephalic, chronically looking female) Eyes: non-icteric ENT: oropharynx moist, other (ETT at 23cm) Neck: supple, no lymphadenopathy, no JVD Effort: normal Ascultation: Bilateral: diminished breath sounds, rhonchi (scant) Percussion: Bilateral: not dull Cardiovascular: regular rate and rhythm, other (tacycardia, S1,S2, no murmurs, gallops or rubs) Gastrointestinal: normoactive bowel sounds, soft, non-tender, non-distended Integumentary: normal Extremities: no cyanosis, no edema, pulses normal, no ischemia or petechiae Neurologic: unable to assess Psychiatric: other (unable to assess secondary to mental status) CBC and BMP: 01/18/19 04:21 01/18/19 04:21 ABG, PT/INR, D-dimer: ABG POC ABG pH 7.522 (7.35-7.45) H 01/22/19 04:35 POC ABG pCO2 36.3 (35-45) 01/22/19 04:35 POC ABG pO2 94 (80-105) 01/22/19 04:35 POC ABG HCO3 29.8 (22-26 mml/L) 01/22/19 04:35 POC ABG Total CO2 31 (23-27mmol/L) 01/22/19 04:35 POC ABG O2 Sat 98 01/22/19 04:35 PT/INR, D-dimer PT 19.7 Sec. (12.2-14.9) H 01/15/19 07:50 INR 1.56 (0.87-1.13) H 01/15/19 07:50 Abnormal lab findings: Abnormal Labs 01/15/19 01/15/19 01/15/19 07:50 07:50 07:50 WBC RBC Hgb Hct MCV 99 H RDW 16.7 H Plt Count 122 L Lymph % (Auto) Lymph # Seg Neutrophils % Seg Neuts % (Manual) Lymphocytes % (Manual) Seg Neutrophils # Seg Neutrophils # Man Lymphocytes # (Manual) PT 19.7 H INR 1.56 H POC ABG pH POC ABG pCO2 POC ABG pO2 Potassium Carbon Dioxide 11 L BUN Creatinine 1.4 H Glucose 268 H POC Glucose Calcium AST 57 H Total Creatine Kinase CK-MB (CK-2) Troponin T NT-Pro-B Natriuret Pep 5346 H Total Protein Albumin 3.6 L HDL Cholesterol 01/15/19 01/15/19 01/15/19 09:56 11:53 17:52 WBC RBC Hgb Hct MCV RDW Plt Count Lymph % (Auto) Lymph # Seg Neutrophils % Seg Neuts % (Manual) Lymphocytes % (Manual) Seg Neutrophils # Seg Neutrophils # Man Lymphocytes # (Manual) PT INR POC ABG pH 7.186 L POC ABG pCO2 46.4 H POC ABG pO2 Potassium Carbon Dioxide BUN Creatinine Glucose POC Glucose Calcium AST Total Creatine Kinase 683 H 1430 H CK-MB (CK-2) 9.5 H 13.5 H Troponin T 0.036 H D NT-Pro-B Natriuret Pep Total Protein Albumin HDL Cholesterol 65 H 01/15/19 01/15/19 01/16/19 18:31 21:46 02:14 WBC RBC Hgb Hct MCV RDW Plt Count Lymph % (Auto) Lymph # Seg Neutrophils % Seg Neuts % (Manual) Lymphocytes % (Manual) Seg Neutrophils # Seg Neutrophils # Man Lymphocytes # (Manual) PT INR POC ABG pH POC ABG pCO2 31.8 L POC ABG pO2 167 H Potassium Carbon Dioxide BUN Creatinine Glucose POC Glucose 134 H 136 H Calcium AST Total Creatine Kinase CK-MB (CK-2) Troponin T NT-Pro-B Natriuret Pep Total Protein Albumin HDL Cholesterol 01/16/19 01/16/19 01/16/19 04:16 04:16 05:05 WBC 11.4 H RBC Hgb Hct MCV RDW Plt Count 105 L Lymph % (Auto) Lymph # Seg Neutrophils % Seg Neuts % (Manual) 74.0 H Lymphocytes % (Manual) 2.0 L Seg Neutrophils # Seg Neutrophils # Man 8.4 H Lymphocytes # (Manual) 0.2 L PT INR POC ABG pH 7.458 H POC ABG pCO2 31.4 L POC ABG pO2 135 H Potassium 3.3 L Carbon Dioxide 21 L D BUN 24 H Creatinine 1.5 H Glucose 141 H POC Glucose Calcium 8.1 L AST 71 H Total Creatine Kinase CK-MB (CK-2) Troponin T NT-Pro-B Natriuret Pep Total Protein 6.2 L Albumin 3.5 L HDL Cholesterol 01/16/19 01/16/19 01/16/19 05:24 13:42 21:08 WBC RBC Hgb Hct MCV RDW Plt Count Lymph % (Auto) Lymph # Seg Neutrophils % Seg Neuts % (Manual) Lymphocytes % (Manual) Seg Neutrophils # Seg Neutrophils # Man Lymphocytes # (Manual) PT INR POC ABG pH POC ABG pCO2 POC ABG pO2 Potassium Carbon Dioxide BUN Creatinine Glucose POC Glucose 137 H 129 H 122 H Calcium AST Total Creatine Kinase CK-MB (CK-2) Troponin T NT-Pro-B Natriuret Pep Total Protein Albumin HDL Cholesterol 01/17/19 01/17/19 01/17/19 02:18 04:23 05:13 WBC RBC Hgb Hct MCV RDW Plt Count Lymph % (Auto) Lymph # Seg Neutrophils % Seg Neuts % (Manual) Lymphocytes % (Manual) Seg Neutrophils # Seg Neutrophils # Man Lymphocytes # (Manual) PT INR POC ABG pH 7.479 H POC ABG pCO2 30.0 L POC ABG pO2 141 H Potassium Carbon Dioxide BUN Creatinine Glucose POC Glucose 139 H 128 H Calcium AST Total Creatine Kinase CK-MB (CK-2) Troponin T NT-Pro-B Natriuret Pep Total Protein Albumin HDL Cholesterol 01/17/19 01/17/19 01/17/19 10:22 15:59 18:45 WBC RBC Hgb Hct MCV RDW Plt Count Lymph % (Auto) Lymph # Seg Neutrophils % Seg Neuts % (Manual) Lymphocytes % (Manual) Seg Neutrophils # Seg Neutrophils # Man Lymphocytes # (Manual) PT INR POC ABG pH POC ABG pCO2 POC ABG pO2 Potassium Carbon Dioxide BUN Creatinine Glucose POC Glucose 133 H 121 H 106 H Calcium AST Total Creatine Kinase CK-MB (CK-2) Troponin T NT-Pro-B Natriuret Pep Total Protein Albumin HDL Cholesterol 01/17/19 01/18/19 01/18/19 23:35 04:21 04:21 WBC RBC 3.27 L Hgb 9.6 L Hct 29.9 L MCV RDW Plt Count 79 L Lymph % (Auto) 6.0 L Lymph # 0.5 L Seg Neutrophils % 89.2 H Seg Neuts % (Manual) Lymphocytes % (Manual) Seg Neutrophils # 8.1 H Seg Neutrophils # Man Lymphocytes # (Manual) PT INR POC ABG pH POC ABG pCO2 POC ABG pO2 Potassium Carbon Dioxide BUN 28 H Creatinine 1.3 H Glucose 129 H POC Glucose 121 H Calcium AST 120 H Total Creatine Kinase CK-MB (CK-2) Troponin T NT-Pro-B Natriuret Pep Total Protein 5.1 L Albumin 3.0 L HDL Cholesterol 01/18/19 01/18/19 01/18/19 04:21 04:36 05:43 WBC RBC Hgb Hct MCV RDW Plt Count Lymph % (Auto) Lymph # Seg Neutrophils % Seg Neuts % (Manual) Lymphocytes % (Manual) Seg Neutrophils # Seg Neutrophils # Man Lymphocytes # (Manual) PT INR POC ABG pH 7.485 H POC ABG pCO2 31.0 L POC ABG pO2 126 H Potassium Carbon Dioxide BUN 28 H Creatinine 1.3 H Glucose 128 H POC Glucose 142 H Calcium AST Total Creatine Kinase CK-MB (CK-2) Troponin T NT-Pro-B Natriuret Pep Total Protein Albumin HDL Cholesterol 01/18/19 01/18/19 01/18/19 12:04 18:16 20:47 WBC RBC Hgb Hct MCV RDW Plt Count Lymph % (Auto) Lymph # Seg Neutrophils % Seg Neuts % (Manual) Lymphocytes % (Manual) Seg Neutrophils # Seg Neutrophils # Man Lymphocytes # (Manual) PT INR POC ABG pH 7.489 H POC ABG pCO2 32.8 L POC ABG pO2 Potassium Carbon Dioxide BUN Creatinine Glucose POC Glucose 113 H 119 H Calcium AST Total Creatine Kinase CK-MB (CK-2) Troponin T NT-Pro-B Natriuret Pep Total Protein Albumin HDL Cholesterol 01/19/19 01/19/19 01/19/19 00:40 05:35 11:39 WBC RBC Hgb Hct MCV RDW Plt Count Lymph % (Auto) Lymph # Seg Neutrophils % Seg Neuts % (Manual) Lymphocytes % (Manual) Seg Neutrophils # Seg Neutrophils # Man Lymphocytes # (Manual) PT INR POC ABG pH POC ABG pCO2 POC ABG pO2 Potassium Carbon Dioxide BUN Creatinine Glucose POC Glucose 137 H 157 H 155 H Calcium AST Total Creatine Kinase CK-MB (CK-2) Troponin T NT-Pro-B Natriuret Pep Total Protein Albumin HDL Cholesterol 01/19/19 01/19/19 01/19/19 18:24 21:08 23:33 WBC RBC Hgb Hct MCV RDW Plt Count Lymph % (Auto) Lymph # Seg Neutrophils % Seg Neuts % (Manual) Lymphocytes % (Manual) Seg Neutrophils # Seg Neutrophils # Man Lymphocytes # (Manual) PT INR POC ABG pH 7.508 H POC ABG pCO2 34.2 L POC ABG pO2 Potassium Carbon Dioxide BUN Creatinine Glucose POC Glucose 145 H 156 H Calcium AST Total Creatine Kinase CK-MB (CK-2) Troponin T NT-Pro-B Natriuret Pep Total Protein Albumin HDL Cholesterol 01/20/19 01/20/19 01/20/19 05:12 11:42 17:36 WBC RBC Hgb Hct MCV RDW Plt Count Lymph % (Auto) Lymph # Seg Neutrophils % Seg Neuts % (Manual) Lymphocytes % (Manual) Seg Neutrophils # Seg Neutrophils # Man Lymphocytes # (Manual) PT INR POC ABG pH POC ABG pCO2 POC ABG pO2 Potassium Carbon Dioxide BUN Creatinine Glucose POC Glucose 152 H 159 H 169 H Calcium AST Total Creatine Kinase CK-MB (CK-2) Troponin T NT-Pro-B Natriuret Pep Total Protein Albumin HDL Cholesterol 01/20/19 01/21/19 01/21/19 23:29 05:30 05:34 WBC RBC Hgb Hct MCV RDW Plt Count Lymph % (Auto) Lymph # Seg Neutrophils % Seg Neuts % (Manual) Lymphocytes % (Manual) Seg Neutrophils # Seg Neutrophils # Man Lymphocytes # (Manual) PT INR POC ABG pH 7.616 H POC ABG pCO2 POC ABG pO2 71 L Potassium Carbon Dioxide BUN Creatinine Glucose POC Glucose 139 H 138 H Calcium AST Total Creatine Kinase CK-MB (CK-2) Troponin T NT-Pro-B Natriuret Pep Total Protein Albumin HDL Cholesterol 01/21/19 01/21/19 01/22/19 12:41 18:47 00:07 WBC RBC Hgb Hct MCV RDW Plt Count Lymph % (Auto) Lymph # Seg Neutrophils % Seg Neuts % (Manual) Lymphocytes % (Manual) Seg Neutrophils # Seg Neutrophils # Man Lymphocytes # (Manual) PT INR POC ABG pH POC ABG pCO2 POC ABG pO2 Potassium Carbon Dioxide BUN Creatinine Glucose POC Glucose 154 H 174 H 163 H Calcium AST Total Creatine Kinase CK-MB (CK-2) Troponin T NT-Pro-B Natriuret Pep Total Protein Albumin HDL Cholesterol 01/22/19 01/22/19 01/22/19 04:35 05:46 12:18 WBC RBC Hgb Hct MCV RDW Plt Count Lymph % (Auto) Lymph # Seg Neutrophils % Seg Neuts % (Manual) Lymphocytes % (Manual) Seg Neutrophils # Seg Neutrophils # Man Lymphocytes # (Manual) PT INR POC ABG pH 7.522 H POC ABG pCO2 POC ABG pO2 Potassium Carbon Dioxide BUN Creatinine Glucose POC Glucose 159 H 137 H Calcium AST Total Creatine Kinase CK-MB (CK-2) Troponin T NT-Pro-B Natriuret Pep Total Protein Albumin HDL Cholesterol Chest x-ray: pending Allied health notes reviewed: nursing
[2019-01-22] MEDS: HumaLOG SUB-Q SCH ×3 (15:03→23:09)
[2019-01-22 15:07] LABS: Hematocrit 25.6 % (30.3-42.9); Hemoglobin 8.4 gm/dl (10.1-14.3); Mean Corpuscular HGB Conc 33 % (30-34); Mean Corpuscular Volume 87 fl (79-97); Platelet Count 166 K/mm3 (140-440); Red Blood Count 2.92 M/mm3 (3.65-5.03); Red Cell Distribution Width 14.2 % (13.2-15.2)
[2019-01-22 15:32] LABS: BUN/Creatinine Ratio 37; Blood Urea Nitrogen 37 mg/dL (7-17); Calcium 8.2 mg/dL (8.4-10.2); Hemolysis Index 0
[2019-01-23] MEDS: DUONEB *Not for PRN Use IH SCH ×4 (03:11→19:19)
[2019-01-23 07:24] LABS: Basophils % (Auto) 0.3 % (0.0-1.8); Eosinophils # (Auto) 0.1 K/mm3 (0.0-0.4); Eosinophils % (Auto) 0.5 % (0.0-4.3); Hematocrit 25.4 % (30.3-42.9); Hemoglobin 8.5 gm/dl (10.1-14.3); Lymphocytes # (Auto) 0.6 K/mm3 (1.2-5.4); Lymphocytes % (Auto) 6.3 % (13.4-35.0); Mean Corpuscular HGB Conc 34 % (30-34); Mean Corpuscular Volume 87 fl (79-97); Monocytes # (Auto) 0.7 K/mm3 (0.0-0.8); Monocytes % (Auto) 6.6 % (0.0-7.3); Platelet Count 198 K/mm3 (140-440); Red Blood Count 2.92 M/mm3 (3.65-5.03); Red Cell Distribution Width 14.3 % (13.2-15.2)
[2019-01-23 07:24] LABS: Alanine Aminotransferase 31 units/L (7-56); Albumin 2.9 g/dL (3.9-5); BUN/Creatinine Ratio 41; Blood Urea Nitrogen 37 mg/dL (7-17); Calcium 8.7 mg/dL (8.4-10.2); Hemolysis Index 1
--- NOTE | 2019-01-23 08:10 | Progress Note ---
Assessment and Plan Assessment and plan: s/p cardioresp arrest at home Intubated Admitted to ICU Cardiology Pulmonology/Apron Cleaner For Trach and PEG tube placement Acute resp failure Intubated on vent CAD s/p stent placement she goes to correctional guard at [place] Acute on Chronic CHF EF 35-40% cardiology frollowing Anoxic encephalopathy. supportive care Neurology following Sepsis due to pneumonia On iv Abx. ID Physician following Pneumonia CARMELINA due to ATN Improving Seizure activity COPD/Emphesema Not on home Oxygen History of stroke in 1982 Full code status Discussed with family at bedside. Prognosis guarded History Interval history: Still intubated Still unresponsive Hospitalist Physical - Physical exam Narrative exam: Gen: Not in acute distress,intubated HEENT: Normocephalic, atraumatic Neck: supple, no JVD Heart: S1 and S2 reg, no murmurs, rubs or gallop Lungs: Bilateral crackles, no wheeze Abd: soft, non tender, non distended, normal BS Ext: No edema, no clubbing, no cyanosis, Neuro: Intubated, Not following commands - Constitutional Vitals: Temp Pulse Resp BP Pulse Ox 99.7 F H 87 25 H 117/65 100 01/23/19 03:07 01/23/19 08:00 01/23/19 08:00 01/23/19 08:00 01/23/19 08:00 General appearance: Present: no acute distress, well-nourished, other (intubated) Results - Labs CBC & Chem 7: 01/22/19 15:00 01/22/19 15:00 Labs: Laboratory Last Values WBC 8.8 K/mm3 (4.5-11.0) 01/22/19 15:00 RBC 2.92 M/mm3 (3.65-5.03) L 01/22/19 15:00 Hgb 8.4 gm/dl (10.1-14.3) L 01/22/19 15:00 Hct 25.6 % (30.3-42.9) L 01/22/19 15:00 MCV 87 fl (79-97) 01/22/19 15:00 MCH 29 pg (28-32) 01/22/19 15:00 MCHC 33 % (30-34) 01/22/19 15:00 RDW 14.2 % (13.2-15.2) 01/22/19 15:00 Plt Count 166 K/mm3 (140-440) 01/22/19 15:00 Lymph % (Auto) 6.0 % (13.4-35.0) L 01/18/19 04:21 [place] % (Auto) 4.5 % (0.0-7.3) 01/18/19 04:21 Eos % (Auto) 0.1 % (0.0-4.3) 01/18/19 04:21 Baso % (Auto) 0.2 % (0.0-1.8) 01/18/19 04:21 Lymph # 0.5 K/mm3 (1.2-5.4) L 01/18/19 04:21 [place] # 0.4 K/mm3 (0.0-0.8) 01/18/19 04:21 Eos # 0.0 K/mm3 (0.0-0.4) 01/18/19 04:21 Baso # 0.0 K/mm3 (0.0-0.1) 01/18/19 04:21 Add Manual Diff Complete 01/16/19 04:16 Total Counted 100 01/16/19 04:16 Seg Neutrophils % 89.2 % (40.0-70.0) H 01/18/19 04:21 Seg Neuts % (Manual) 74.0 % (40.0-70.0) H 01/16/19 04:16 22.0 % 01/16/19 04:16 2.0 % (13.4-35.0) L 01/16/19 04:16 Reactive Lymphs % (Man) 0 % 01/16/19 04:16 2.0 % (0.0-7.3) 01/16/19 04:16 0 % (0.0-4.3) 01/16/19 04:16 0 % (0.0-1.8) 01/16/19 04:16 0 % 01/16/19 04:16 0 % 01/16/19 04:16 0 % 01/16/19 04:16 0 % 01/16/19 04:16 Nucleated RBC % Not Reportable 01/16/19 04:16 Seg Neutrophils # 8.1 K/mm3 (1.8-7.7) H 01/18/19 04:21 Seg Neutrophils # Man 8.4 K/mm3 (1.8-7.7) H 01/16/19 04:16 Band Neutrophils # 2.5 K/mm3 01/16/19 04:16 0.2 K/mm3 (1.2-5.4) L 01/16/19 04:16 Abs React Lymphs (Man) 0.0 K/mm3 01/16/19 04:16 0.2 K/mm3 (0.0-0.8) 01/16/19 04:16 0.0 K/mm3 (0.0-0.4) 01/16/19 04:16 0.0 K/mm3 (0.0-0.1) 01/16/19 04:16 0.0 K/mm3 01/16/19 04:16 0.0 K/mm3 01/16/19 04:16 0.0 K/mm3 01/16/19 04:16 Blast Cells # 0.0 K/mm3 01/16/19 04:16 WBC Morphology Not Reportable 01/16/19 04:16 Hypersegmented Neuts Not Reportable 01/16/19 04:16 Hyposegmented Neuts Not Reportable 01/16/19 04:16 Hypogranular Neuts Not Reportable 01/16/19 04:16 Not Reportable 01/16/19 04:16 Not Reportable 01/16/19 04:16 Not Reportable 01/16/19 04:16 Not Reportable 01/16/19 04:16 Not Reportable 01/16/19 04:16 Not Reportable 01/16/19 04:16 Consistent w auto 01/16/19 04:16 Not Reportable 01/16/19 04:16 Plt Clumps, EDTA Not Reportable 01/16/19 04:16 Not Reportable 01/16/19 04:16 Not Reportable 01/16/19 04:16 Not Reportable 01/16/19 04:16 Plt Morphology Comment Not Reportable 01/16/19 04:16 RBC Morphology Normal 01/16/19 04:16 Dimorphic RBCs Not Reportable 01/16/19 04:16 Not Reportable 01/16/19 04:16 Not Reportable 01/16/19 04:16 Not Reportable 01/16/19 04:16 Not Reportable 01/16/19 04:16 Not Reportable 01/16/19 04:16 Not Reportable 01/16/19 04:16 Not Reportable 01/16/19 04:16 Not Reportable 01/16/19 04:16 Not Reportable 01/16/19 04:16 Not Reportable 01/16/19 04:16 Not Reportable 01/16/19 04:16 Not Reportable 01/16/19 04:16 Not Reportable 01/16/19 04:16 Not Reportable 01/16/19 04:16 Not Reportable 01/16/19 04:16 Not Reportable 01/16/19 04:16 Not Reportable 01/16/19 04:16 Not Reportable 01/16/19 04:16 Not Reportable 01/16/19 04:16 Acanthocytes (Spur) Not Reportable 01/16/19 04:16 Rouleaux Not Reportable 01/16/19 04:16 Not Reportable 01/16/19 04:16 Not Reportable 01/16/19 04:16 Not Reportable 01/16/19 04:16 Not Reportable 01/16/19 04:16 Hem Pathologist Commnt No 01/16/19 04:16 PT 19.7 Sec. (12.2-14.9) H 01/15/19 07:50 INR 1.56 (0.87-1.13) H 01/15/19 07:50 APTT 36.0 Sec. (24.2-36.6) 01/15/19 07:50 POC ABG pH 7.522 (7.35-7.45) H 01/22/19 04:35 POC ABG pCO2 36.3 (35-45) 01/22/19 04:35 POC ABG pO2 94 (80-105) 01/22/19 04:35 POC ABG HCO3 29.8 (22-26 mml/L) 01/22/19 04:35 POC ABG Total CO2 31 (23-27mmol/L) 01/22/19 04:35 POC ABG O2 Sat 98 01/22/19 04:35 POC ABG Base Excess 7 ((-2) - (+3)mmol/L) 01/22/19 04:35 25 % 01/22/19 04:35 Sodium 137 mmol/L (137-145) 01/22/19 15:00 Potassium 4.1 mmol/L (3.6-5.0) 01/22/19 15:00 Chloride 97.0 mmol/L (98-107) L 01/22/19 15:00 Carbon Dioxide 28 mmol/L (22-30) 01/22/19 15:00 16 mmol/L 01/22/19 15:00 BUN 37 mg/dL (7-17) H 01/22/19 15:00 1.0 mg/dL (0.7-1.2) 01/22/19 15:00 Estimated GFR > 60 ml/min 01/22/19 15:00 37 % 01/22/19 15:00 Glucose 162 mg/dL (65-100) H 01/22/19 15:00 POC Glucose 155 (70-105) H 01/23/19 05:10 6.0 % (4-6) 01/15/19 11:53 Calcium 8.2 mg/dL (8.4-10.2) L 01/22/19 15:00 0.90 mg/dL (0.1-1.2) 01/18/19 04:21 AST 120 units/L (5-40) H 01/18/19 04:21 ALT 24 units/L (7-56) 01/18/19 04:21 48 units/L (35-129) 01/18/19 04:21 1430 units/L (30-135) H 01/15/19 17:52 CK-MB (CK-2) 13.5 ng/mL (0.0-4.0) H 01/15/19 17:52 CK-MB (CK-2) Rel Index 0.9 (0-4) 01/15/19 17:52 0.036 ng/mL (0.00-0.029) H D 01/15/19 17:52 NT-Pro-B Natriuret Pep 5346 pg/mL (0-900) H 01/15/19 07:50 5.1 g/dL (6.3-8.2) L 01/18/19 04:21 3.0 g/dL (3.9-5) L 01/18/19 04:21 1.4 % 01/18/19 04:21 Triglycerides 75 mg/dL (2-149) 01/15/19 17:52 Cholesterol 149 mg/dL (50-199) 01/15/19 17:52 84 mg/dL (50-130) 01/15/19 17:52 65 mg/dL (40-59) H 01/15/19 17:52 2.29 % 01/15/19 17:52 Yellow (Yellow) 01/21/19 16:10 Clear (Clear) 01/21/19 16:10 6.0 (5.0-7.0) 01/21/19 16:10 Ur Specific Frost 1.015 (1.003-1.030) 01/21/19 16:10 <15 mg/dl mg/dL (Negative) 01/21/19 16:10 Neg mg/dL (Negative) 01/21/19 16:10 Neg mg/dL (Negative) 01/21/19 16:10 Neg (Negative) 01/21/19 16:10 Neg (Negative) 01/21/19 16:10 Neg (Negative) 01/21/19 16:10 2.0 mg/dL (<2.0) 01/21/19 16:10 Ur Leukocyte Esterase Neg (Negative) 01/21/19 16:10 1.0 /HPF (0.0-6.0) 01/21/19 16:10 5.0 /HPF (0.0-6.0) 01/21/19 16:10 Presumptive negative 01/15/19 16:30 Presumptive negative 01/15/19 16:30 Ur Barbiturates Screen Presumptive negative 01/15/19 16:30 Ur Phencyclidine Scrn Presumptive negative 01/15/19 16:30 Ur Amphetamines Screen Presumptive negative 01/15/19 16:30 U Benzodiazepines Scrn Presumptive negative 01/15/19 16:30 Presumptive negative 01/15/19 16:30 U Marijuana (THC) Screen Presumptive negative 01/15/19 16:30 Disclamer 01/15/19 16:30 C. difficile Tox (PCR) Negative (Negative) 01/16/19 00:00 Active Medications - Current Medications Current Medications: Generic Name Dose Route Start Last Admin Trade Name Freq PRN Reason Stop Dose Admin Acetaminophen 650 mg 01/16/19 09:37 01/20/19 00:24 Tylenol PO 650 mg Q4H PRN Administration Fever >101 Albuterol/Ipratropium 1 ampul 01/15/19 14:00 01/23/19 03:11 Duoneb *Not For Prn Use* IH 1 ampul Q6HRT DEON Administration Lipase/Protease/Amylase 1 each 01/15/19 14:37 Pancredelia Siddiqui 10,500 Unit FEEDTUBE PRN PRN For Clogged Feeding Tube Aspirin 81 mg 01/16/19 10:00 01/22/19 10:15 Baby Aspirin PO 81 mg QDAY DEON Administration Atorvastatin Calcium 20 mg 01/16/19 22:00 01/22/19 21:41 Lipitor PO 20 mg QHS DEON Administration Carvedilol 6.25 mg 01/16/19 12:00 01/22/19 21:42 Coreg PO 6.25 mg BID DEON Administration Famotidine 20 mg 01/22/19 10:00 01/22/19 10:09 Pepcid PO 20 mg DAILY DEON Administration Fondaparinux 2.5 mg 01/20/19 10:00 01/22/19 10:06 Arixtra SUB-Q 2.5 mg QDAY DEON Administration Furosemide 20 mg 01/19/19 18:00 01/22/19 17:59 Lasix PO 20 mg 0600,1800 DEON Administration Ceftriaxone Sodium 2 gm in 100 mls @ 200 mls/hr 01/20/19 15:00 01/22/19 10:06 Rocephin/Ns 2 Gm/100 Ml IV 200 mls/hr Q24HR DEON Administration Protocol Metronidazole 500 mg in 100 mls @ 100 mls/hr 01/20/19 16:00 01/22/19 22:00 Flagyl 500 Mg/100 Ml IV 100 mls/hr Q8HR DEON Administration Protocol Insulin Human Lispro 0 unit 01/22/19 14:00 01/22/19 23:09 Humalog SUB-Q 2 unit Q6HR DEON Administration Protocol Levetiracetam 750 mg 01/18/19 10:00 01/22/19 21:41 Keppra PO 750 mg BID DEON Administration Modafinil 100 mg 01/20/19 10:00 01/22/19 10:07 Provigil PO 100 mg QAM DEON Administration Simple Syrup 15 ml 01/15/19 14:37 Simple Syrup FEEDTUBE PRN PRN Hypoglycemia Simple Syrup 30 ml 01/15/19 14:37 Simple Syrup FEEDTUBE PRN PRN Hypoglycemia Sodium Bicarbonate 325 mg 01/15/19 14:37 Sodium Bicarbonate FEEDTUBE PRN PRN For Clogged Feeding Tube Sodium Chloride 10 ml 01/15/19 22:00 01/22/19 21:42 Sodium Chloride Flush Syringe 10 Ml IV 10 ml BID DEON Administration Sodium Chloride 10 ml 01/15/19 10:34 Sodium Chloride Flush Syringe 10 Ml IV PRN PRN LINE FLUSH Nutrition/Malnutrition Assess - Dietary Evaluation Nutrition/Malnutrition Findings: Nutrition Notes Start: 01/15/19 14:28 Freq: Status: Active Protocol: Document 01/18/19 10:28 EB (Rec: 01/18/19 10:30 EB [id number]) Co-Sign 01/18/19 10:28 LP Nutrition Notes Initial or Follow up Reassessment Other Pertinent Diagnosis s/p cardiorespiratory arrest ( at home) Current Diet Glucerna 1.2 at 50 mL/hr Labs/Tests Reviewed Pertinent Medications Dopamine gtt Height 5 ft 4 in Weight 49.3 kg [place] Body Weight (kg) 54.54 BMI 18.6 Subjective/Other Information TF running at goal rate at time of visit and RN states no residuals. Percent of energy/protein needs met: 97%/100% Burn Absent Trauma Absent #1 Nutrition Diagnosis Inadequate oral intake Diagnosis Progress(for reassessment Continues documentation) Is patient on ventilator? Yes Is Patient Ambulatory and/or Out of Bed No REE-([facility]-confined to bed) 1174.212 Kcal/Kg value to use for calculation 30 Approximate Energy Requirements Using 1479 kcal/Kg Calculation Used for Recommendations Kcal/kg Additional Notes Pro needs 1.2-2g/k-100g/ day Fluid needs 1ml/kcal Nutrition Intervention Nutrition Support: Glucerna 1.2 at 50ml/hr with 80ml water flush q4h. Kcal 1,440 Protein (gm) 72 Carbohydrates (gm) 137 Fluid (mL) 966 Fiber (gm) 19 Goal #1 TF tolerance Goal #2 TF to continue to meet 100% energy and pro needs Goal #3 Wt maintenance and/or gain Anticipated Discharge Needs: Unable to identify at this time Follow-Up By: 01/25/19 Additional Comments F/U: TF tolerance
[2019-01-23] MEDS: FLAGYL 500 MG/100 ML 500 MG/100 ML BAG IV SCH ×3 (08:36→21:44)
[2019-01-23] MEDS: LASIX PO SCH ×2 (08:37→18:19)
[2019-01-23] MEDS: HumaLOG SUB-Q SCH ×3 (08:37→18:27)
[2019-01-23] MEDS: ROCEPHIN/NS 2 GM/100 ML 2 GM/100 ML BAG IV SCH (09:57)
[2019-01-23] MEDS: ARIXTRA SUB-Q SCH (09:57)
[2019-01-23] MEDS: COREG PO SCH ×2 (09:58→21:44)
[2019-01-23] MEDS: BABY ASPIRIN PO SCH (09:58)
[2019-01-23] MEDS: KEPPRA PO SCH ×2 (09:58→21:43)
[2019-01-23] MEDS: PROVIGIL PO SCH (09:59)
[2019-01-23] MEDS: PEPCID PO SCH (09:59)
[2019-01-23] MEDS: SODIUM CHLORIDE FLUSH SYRINGE 10 ML IV SCH ×2 (10:00→21:43)
--- NOTE | 2019-01-23 11:01 | Progress Note ---
Assessment and Plan Cultures: Blood culture 01/15/2019 no growth. Stool culture 01/20/2019 no growth today. Trachea asp culture 01/15/2019 upper resp papo. Urine culture 01/21/2019: no growth in 24 hours Blood culture 01/21/2019: in progress Assessment: 73 y/o female with a history of diastolic CHF, cardiomyopathy, CAD s/p sten, pericardial effusion requiring pericardiocentesis (2012), hypertension, COPD with emphysema, CKD and gout: admitted on 01/15/19 after a cardiac arrest. 1) S/p Cardiopulmonary arrest, out of hospital, PEA with ROSC 2) Acute respiratory failure: intubated on SBT 3) Acute encephalopathy: metabolic. Head CT shows no evidence for acute ischemia 4) CARMELINA: improving 5) Seizure activity 6) Sepsis:. Resolved. Etiology possible asp pneumonia, ? central fever, ? drug fever. Trachea asp culture 01/15/2019 upper resp papo. U/A w/o pyuria. Urine culture in progress. 7) Thrombocytopenia: resolved 8) Diarrhea: C diff negative.Stool culture 01/15/2019 no growth. 9) Bladder retention now with cooper Recommendations: - follow-up repeat blood cultures - Continue ceftriaxone and flagy, D4 of D7 - f/u urine culture [facility] M: [phone] O:[phone] Subjective Date of service: 01/23/19 Principal diagnosis: OOH cardiac arrest; Acute hypoxemic-hypercapnic Resp failure; PNA Interval history: Patient seen and examined. Remains intubated and unresponsive. No pressors. no f eduar. Granddaughter at bedside. Objective - Exam Narrative Exam: General appearance: intubated on CPAP . Unresponsive Eyes: anicteric sclerae, moist conjunctivae; no lid-lag; PERRLA HENT: Atraumatic; oropharynx +ETT +OGT Neck: Trachea midline; supple, no thyromegaly or lymphadenopathy Lungs: scattered olman rhonchi CV: RRR Abdomen: Soft, non-tender; no masses or hepatosplenomegaly Extremities:olman edema Skin: Normal temperature, turgor and texture; no rash, ulcers or subcutaneous nodules Psych: Calm . Neuro: unresponsive. - Constitutional Vitals: Vital Signs Temp Pulse Resp BP Pulse Ox 98.6 F 86 21 123/78 95 01/23/19 08:00 05/07/19 09:58 01/23/19 09:30 01/23/19 09:58 01/23/19 09:30 Temperature -Last 24 Hours Temperature 98.6 F Temperature 99.7 F Temperature 99.7 F Temperature 99.3 F Temperature 98.8 F Temperature 98.7 F - Labs CBC & Chem 7: 01/23/19 00:01 01/23/19 Unknown Labs: Abnormal lab results 01/22/19 01/22/19 01/22/19 Range/Units 12:18 15:00 15:00 RBC 2.92 L (3.65-5.03) M/mm3 Hgb 8.4 L (10.1-14.3) gm/dl Hct 25.6 L (30.3-42.9) % Lymph % (Auto) (13.4-35.0) % Lymph # (1.2-5.4) K/mm3 Seg Neutrophils % (40.0-70.0) % Seg Neutrophils # (1.8-7.7) K/mm3 Chloride 97.0 L (98-107) mmol/L BUN 37 H (7-17) mg/dL Glucose 162 H (65-100) mg/dL POC Glucose 137 H (70-105) Calcium 8.2 L (8.4-10.2) mg/dL AST (5-40) units/L Total Protein (6.3-8.2) g/dL Albumin (3.9-5) g/dL 01/22/19 01/22/19 01/23/19 Range/Units 18:13 22:45 00:01 RBC 2.92 L (3.65-5.03) M/mm3 Hgb 8.5 L (10.1-14.3) gm/dl Hct 25.4 L (30.3-42.9) % Lymph % (Auto) 6.3 L (13.4-35.0) % Lymph # 0.6 L (1.2-5.4) K/mm3 Seg Neutrophils % 86.3 H (40.0-70.0) % Seg Neutrophils # 8.9 H (1.8-7.7) K/mm3 Chloride (98-107) mmol/L BUN (7-17) mg/dL Glucose (65-100) mg/dL POC Glucose 159 H 178 H (70-105) Calcium (8.4-10.2) mg/dL AST (5-40) units/L Total Protein (6.3-8.2) g/dL Albumin (3.9-5) g/dL 01/23/19 01/23/19 Range/Units 05:10 Unknown RBC (3.65-5.03) M/mm3 Hgb (10.1-14.3) gm/dl Hct (30.3-42.9) % Lymph % (Auto) (13.4-35.0) % Lymph # (1.2-5.4) K/mm3 Seg Neutrophils % (40.0-70.0) % Seg Neutrophils # (1.8-7.7) K/mm3 Chloride 95.4 L (98-107) mmol/L BUN 37 H (7-17) mg/dL Glucose 144 H (65-100) mg/dL POC Glucose 155 H (70-105) Calcium (8.4-10.2) mg/dL AST 88 H (5-40) units/L Total Protein 6.0 L (6.3-8.2) g/dL Albumin 2.9 L (3.9-5) g/dL
--- NOTE | 2019-01-23 11:32 | Event Note ---
Date: 01/23/19 I met with the granddaughter (Ms. Mason) who is the power of employment attorney. We discussed the procedure, risks, benefits. All of her questions were answered. Consent was obtained for a percutaneous tracheostomy and PEG tube placement. We will begin coordinating schedules with anesthesia and the GI lab. Will update when we have a date and time for the procedure.
--- NOTE | 2019-01-23 13:30 | Progress Note ---
Assessment and Plan s/p Cardiopulmonary arrest, out of hospital, PEA with ROSC Acute hypoxic-hypercapnic respiratory failure on MVS Acute encephalopathy, metabolic Acute metabolic acidosis Acute renal injury Seizure activity Right lower lobe infiltrate, probably aspiration Pyrexia with leukocytosis Pulmonary HTN RVSP 60 Systolic heart failure EF 35-40% Thrombocytopenia (AMS is rate limiting step to safe extubation at this point) - surgery evaluation ongoing for tracheostomy - continue provigil - follow HIT assay (pending) - continue Arixtra and follow platelet count - continue and de-escalate AB's per ID rec's (on Flagyl) - continue set rate at 12/min on MVS - neurology evaluation ongoing - Gentle diuresis with oral lasix (now 20mg bid) - continue alex SAT's & SBT's - sedation target for RASS 0 to -1 - continue GO & VTE prophylaxis - Bronchodilators with pulmonary hygiene per RT - continue to wean supplemental oxygen to keep O2 sats 88-90% - Lung protective strategies - prn ABGs/CXR going forwards - VAP bundle addressed - Continue cardioprotective measures - Replete electrolytes as indicated - Tracheal aspirate, blood cultures are negative to date - Continue bronchodilators with pulmonary hygiene per RT - Cooper catheter placed for acute urinary retention. Plan to discontinue cooper in the next 24 hours and monitor - Continue to rest at night on full MVS - Monitor renal indices closely - Avoid nephrotoxic agents, adjust all medications for CrCL - Strict intake and output monitoring - Tube feedings - Accuchecks with glycemic control. Target glucose of 140-180 mg/dL - Maintenance of sleep -wake cycle - Mobility as tolerated by hemodynamics - Influenza and pneumonia vaccination per protocol ..care plan discussed at length with RN/RT at the bedside ..discussed in ICU-IDT rounds PROGNOSIS: GUARDED CONDITION: CRITICAL CODE STATUS: FULL CODE The high probability of a clinically significant, sudden or life-threatening deterioration of the [respiratory, neurology, renal] system(s) required my full and direct attention, intervention and personal management. The aggregate critical care time was [31] minutes without overlap. Time includes spent on; [x] Data Review and interpretation [x] Patient assessment and monitoring of vital signs [x] Documentation [x] Medication orders and management Subjective Date of service: 01/23/19 Principal diagnosis: OOH cardiac arrest; Acute hypoxemic-hypercapnic Resp failure; PNA Interval history: Patient is seen today for: OOH cardiopulmonary arrest with ROSC; Acute hypoxemic-hypercapnic respiratory failure on MVS; acute encephalopathy; aspiration pneumonia; Seen and examined at bedside; 24hour events reviewed; nursing and respiratory care staff consulted; no adverse overnight events reported to me; remains on MVS; AMS is persistent; continues to tolerate SBT's; daughter in room and had a few questions; seen by surgery and trach/PEG pending; no emesis or overt asp iration and no seizure activity Objective Vital Signs - 12hr 01/23/19 01/23/19 01/23/19 01:30 01:35 02:00 Temperature Pulse Rate 84 85 86 Pulse Rate [ 92 H Anterior Bilateral Throughout] Pulse Rate [ 74 From Monitor] Respiratory 12 24 14 Rate Respiratory 20 Rate [Anterior Bilateral Throughout] Blood Pressure 117/65 127/67 O2 Sat by Pulse 96 98 Oximetry 01/23/19 01/23/19 01/23/19 02:30 03:00 03:07 Temperature 99.7 F H Pulse Rate 85 85 85 Pulse Rate [ Anterior Bilateral Throughout] Pulse Rate [ 74 From Monitor] Respiratory 15 16 24 Rate Respiratory Rate [Anterior Bilateral Throughout] Blood Pressure 118/64 115/65 115/65 O2 Sat by Pulse 98 97 98 Oximetry 01/23/19 01/23/19 01/23/19 03:30 04:00 04:30 Temperature Pulse Rate 87 89 89 Pulse Rate [ Anterior Bilateral Throughout] Pulse Rate [ From Monitor] Respiratory 15 23 25 H Rate Respiratory Rate [Anterior Bilateral Throughout] Blood Pressure 124/66 132/69 121/66 O2 Sat by Pulse 99 Oximetry 01/23/19 01/23/19 01/23/19 05:00 05:30 05:45 Temperature Pulse Rate 91 H 90 86 Pulse Rate [ Anterior Bilateral Throughout] Pulse Rate [ From Monitor] Respiratory 26 H 24 24 Rate Respiratory Rate [Anterior Bilateral Throughout] Blood Pressure 126/70 125/68 O2 Sat by Pulse 100 100 98 Oximetry 01/23/19 01/23/19 01/23/19 06:00 06:30 07:00 Temperature Pulse Rate 84 83 83 Pulse Rate [ Anterior Bilateral Throughout] Pulse Rate [ From Monitor] Respiratory 24 24 23 Rate Respiratory Rate [Anterior Bilateral Throughout] Blood Pressure 116/70 118/66 122/60 O2 Sat by Pulse 94 100 Oximetry 01/23/19 01/23/19 01/23/19 07:31 08:00 08:30 Temperature 98.6 F Pulse Rate 86 87 87 Pulse Rate [ Anterior Bilateral Throughout] Pulse Rate [ From Monitor] Respiratory 26 H 25 H 27 H Rate Respiratory Rate [Anterior Bilateral Throughout] Blood Pressure 137/76 117/65 117/65 O2 Sat by Pulse 94 100 100 Oximetry 01/23/19 01/23/19 01/23/19 08:48 08:52 09:00 Temperature Pulse Rate 85 89 Pulse Rate [ 88 Anterior Bilateral Throughout] Pulse Rate [ 83 From Monitor] Respiratory 31 H 22 Rate Respiratory 22 Rate [Anterior Bilateral Throughout] Blood Pressure 123/67 132/62 O2 Sat by Pulse 100 100 Oximetry 01/23/19 01/23/19 01/23/19 09:02 09:30 09:58 Temperature Pulse Rate 84 86 Pulse Rate [ 87 Anterior Bilateral Throughout] Pulse Rate [ From Monitor] Respiratory 21 Rate Respiratory 22 Rate [Anterior Bilateral Throughout] Blood Pressure 123/78 123/78 O2 Sat by Pulse 95 Oximetry 01/23/19 01/23/19 01/23/19 10:00 10:30 11:00 Temperature Pulse Rate 85 88 85 Pulse Rate [ Anterior Bilateral Throughout] Pulse Rate [ From Monitor] Respiratory 21 25 H 25 H Rate Respiratory Rate [Anterior Bilateral Throughout] Blood Pressure 129/67 121/64 111/63 O2 Sat by Pulse 94 100 98 Oximetry 01/23/19 01/23/19 01/23/19 11:30 11:57 12:00 Temperature 98.6 F Pulse Rate 83 80 81 Pulse Rate [ Anterior Bilateral Throughout] Pulse Rate [ From Monitor] Respiratory 27 H 28 H 27 H Rate Respiratory Rate [Anterior Bilateral Throughout] Blood Pressure 113/64 132/72 132/72 O2 Sat by Pulse 99 99 96 Oximetry 01/23/19 12:30 Temperature Pulse Rate 77 Pulse Rate [ Anterior Bilateral Throughout] Pulse Rate [ From Monitor] Respiratory 24 Rate Respiratory Rate [Anterior Bilateral Throughout] Blood Pressure 103/60 O2 Sat by Pulse 99 Oximetry Constitutional: no acute distress, other (elderly, atraumatic, normocephalic, chronically looking female) Eyes: non-icteric ENT: oropharynx moist, other (ETT at 23cm) Neck: supple, no lymphadenopathy, no JVD Effort: normal Ascultation: Bilateral: diminished breath sounds, rales (scant in bases) Percussion: Bilateral: not dull Cardiovascular: regular rate and rhythm, other (tacycardia, S1,S2, no murmurs, gallops or rubs) Gastrointestinal: normoactive bowel sounds, soft, non-tender, non-distended Integumentary: normal Extremities: no cyanosis, no edema, pulses normal, no ischemia or petechiae Neurologic: unable to assess Psychiatric: other (unable to assess secondary to mental status) CBC and BMP: 01/24/19 Unknown 01/24/19 Unknown ABG, PT/INR, D-dimer: ABG POC ABG pH 7.522 (7.35-7.45) H 01/22/19 04:35 POC ABG pCO2 36.3 (35-45) 01/22/19 04:35 POC ABG pO2 94 (80-105) 01/22/19 04:35 POC ABG HCO3 29.8 (22-26 mml/L) 01/22/19 04:35 POC ABG Total CO2 31 (23-27mmol/L) 01/22/19 04:35 POC ABG O2 Sat 98 01/22/19 04:35 PT/INR, D-dimer PT 19.7 Sec. (12.2-14.9) H 01/15/19 07:50 INR 1.56 (0.87-1.13) H 01/15/19 07:50 Abnormal lab findings: Abnormal Labs 01/15/19 01/15/19 01/15/19 07:50 07:50 07:50 WBC RBC Hgb Hct MCV 99 H RDW 16.7 H Plt Count 122 L Lymph % (Auto) Lymph # Seg Neutrophils % Seg Neuts % (Manual) Lymphocytes % (Manual) Seg Neutrophils # Seg Neutrophils # Man Lymphocytes # (Manual) PT 19.7 H INR 1.56 H POC ABG pH POC ABG pCO2 POC ABG pO2 Potassium Chloride Carbon Dioxide 11 L BUN Creatinine 1.4 H Glucose 268 H POC Glucose Calcium AST 57 H Total Creatine Kinase CK-MB (CK-2) Troponin T NT-Pro-B Natriuret Pep 5346 H Total Protein Albumin 3.6 L HDL Cholesterol 01/15/19 01/15/19 01/15/19 09:56 11:53 17:52 WBC RBC Hgb Hct MCV RDW Plt Count Lymph % (Auto) Lymph # Seg Neutrophils % Seg Neuts % (Manual) Lymphocytes % (Manual) Seg Neutrophils # Seg Neutrophils # Man Lymphocytes # (Manual) PT INR POC ABG pH 7.186 L POC ABG pCO2 46.4 H POC ABG pO2 Potassium Chloride Carbon Dioxide BUN Creatinine Glucose POC Glucose Calcium AST Total Creatine Kinase 683 H 1430 H CK-MB (CK-2) 9.5 H 13.5 H Troponin T 0.036 H D NT-Pro-B Natriuret Pep Total Protein Albumin HDL Cholesterol 65 H 01/15/19 01/15/19 01/16/19 18:31 21:46 02:14 WBC RBC Hgb Hct MCV RDW Plt Count Lymph % (Auto) Lymph # Seg Neutrophils % Seg Neuts % (Manual) Lymphocytes % (Manual) Seg Neutrophils # Seg Neutrophils # Man Lymphocytes # (Manual) PT INR POC ABG pH POC ABG pCO2 31.8 L POC ABG pO2 167 H Potassium Chloride Carbon Dioxide BUN Creatinine Glucose POC Glucose 134 H 136 H Calcium AST Total Creatine Kinase CK-MB (CK-2) Troponin T NT-Pro-B Natriuret Pep Total Protein Albumin HDL Cholesterol 01/16/19 01/16/19 01/16/19 04:16 04:16 05:05 WBC 11.4 H RBC Hgb Hct MCV RDW Plt Count 105 L Lymph % (Auto) Lymph # Seg Neutrophils % Seg Neuts % (Manual) 74.0 H Lymphocytes % (Manual) 2.0 L Seg Neutrophils # Seg Neutrophils # Man 8.4 H Lymphocytes # (Manual) 0.2 L PT INR POC ABG pH 7.458 H POC ABG pCO2 31.4 L POC ABG pO2 135 H Potassium 3.3 L Chloride Carbon Dioxide 21 L D BUN 24 H Creatinine 1.5 H Glucose 141 H POC Glucose Calcium 8.1 L AST 71 H Total Creatine Kinase CK-MB (CK-2) Troponin T NT-Pro-B Natriuret Pep Total Protein 6.2 L Albumin 3.5 L HDL Cholesterol 01/16/19 01/16/19 01/16/19 05:24 13:42 21:08 WBC RBC Hgb Hct MCV RDW Plt Count Lymph % (Auto) Lymph # Seg Neutrophils % Seg Neuts % (Manual) Lymphocytes % (Manual) Seg Neutrophils # Seg Neutrophils # Man Lymphocytes # (Manual) PT INR POC ABG pH POC ABG pCO2 POC ABG pO2 Potassium Chloride Carbon Dioxide BUN Creatinine Glucose POC Glucose 137 H 129 H 122 H Calcium AST Total Creatine Kinase CK-MB (CK-2) Troponin T NT-Pro-B Natriuret Pep Total Protein Albumin HDL Cholesterol 01/17/19 01/17/19 01/17/19 02:18 04:23 05:13 WBC RBC Hgb Hct MCV RDW Plt Count Lymph % (Auto) Lymph # Seg Neutrophils % Seg Neuts % (Manual) Lymphocytes % (Manual) Seg Neutrophils # Seg Neutrophils # Man Lymphocytes # (Manual) PT INR POC ABG pH 7.479 H POC ABG pCO2 30.0 L POC ABG pO2 141 H Potassium Chloride Carbon Dioxide BUN Creatinine Glucose POC Glucose 139 H 128 H Calcium AST Total Creatine Kinase CK-MB (CK-2) Troponin T NT-Pro-B Natriuret Pep Total Protein Albumin HDL Cholesterol 01/17/19 01/17/19 01/17/19 10:22 15:59 18:45 WBC RBC Hgb Hct MCV RDW Plt Count Lymph % (Auto) Lymph # Seg Neutrophils % Seg Neuts % (Manual) Lymphocytes % (Manual) Seg Neutrophils # Seg Neutrophils # Man Lymphocytes # (Manual) PT INR POC ABG pH POC ABG pCO2 POC ABG pO2 Potassium Chloride Carbon Dioxide BUN Creatinine Glucose POC Glucose 133 H 121 H 106 H Calcium AST Total Creatine Kinase CK-MB (CK-2) Troponin T NT-Pro-B Natriuret Pep Total Protein Albumin HDL Cholesterol 01/17/19 01/18/19 01/18/19 23:35 04:21 04:21 WBC RBC 3.27 L Hgb 9.6 L Hct 29.9 L MCV RDW Plt Count 79 L Lymph % (Auto) 6.0 L Lymph # 0.5 L Seg Neutrophils % 89.2 H Seg Neuts % (Manual) Lymphocytes % (Manual) Seg Neutrophils # 8.1 H Seg Neutrophils # Man Lymphocytes # (Manual) PT INR POC ABG pH POC ABG pCO2 POC ABG pO2 Potassium Chloride Carbon Dioxide BUN 28 H Creatinine 1.3 H Glucose 129 H POC Glucose 121 H Calcium AST 120 H Total Creatine Kinase CK-MB (CK-2) Troponin T NT-Pro-B Natriuret Pep Total Protein 5.1 L Albumin 3.0 L HDL Cholesterol 01/18/19 01/18/19 01/18/19 04:21 04:36 05:43 WBC RBC Hgb Hct MCV RDW Plt Count Lymph % (Auto) Lymph # Seg Neutrophils % Seg Neuts % (Manual) Lymphocytes % (Manual) Seg Neutrophils # Seg Neutrophils # Man Lymphocytes # (Manual) PT INR POC ABG pH 7.485 H POC ABG pCO2 31.0 L POC ABG pO2 126 H Potassium Chloride Carbon Dioxide BUN 28 H Creatinine 1.3 H Glucose 128 H POC Glucose 142 H Calcium AST Total Creatine Kinase CK-MB (CK-2) Troponin T NT-Pro-B Natriuret Pep Total Protein Albumin HDL Cholesterol 01/18/19 01/18/19 01/18/19 12:04 18:16 20:47 WBC RBC Hgb Hct MCV RDW Plt Count Lymph % (Auto) Lymph # Seg Neutrophils % Seg Neuts % (Manual) Lymphocytes % (Manual) Seg Neutrophils # Seg Neutrophils # Man Lymphocytes # (Manual) PT INR POC ABG pH 7.489 H POC ABG pCO2 32.8 L POC ABG pO2 Potassium Chloride Carbon Dioxide BUN Creatinine Glucose POC Glucose 113 H 119 H Calcium AST Total Creatine Kinase CK-MB (CK-2) Troponin T NT-Pro-B Natriuret Pep Total Protein Albumin HDL Cholesterol 01/19/19 01/19/19 01/19/19 00:40 05:35 11:39 WBC RBC Hgb Hct MCV RDW Plt Count Lymph % (Auto) Lymph # Seg Neutrophils % Seg Neuts % (Manual) Lymphocytes % (Manual) Seg Neutrophils # Seg Neutrophils # Man Lymphocytes # (Manual) PT INR POC ABG pH POC ABG pCO2 POC ABG pO2 Potassium Chloride Carbon Dioxide BUN Creatinine Glucose POC Glucose 137 H 157 H 155 H Calcium AST Total Creatine Kinase CK-MB (CK-2) Troponin T NT-Pro-B Natriuret Pep Total Protein Albumin HDL Cholesterol 01/19/19 01/19/19 01/19/19 18:24 21:08 23:33 WBC RBC Hgb Hct MCV RDW Plt Count Lymph % (Auto) Lymph # Seg Neutrophils % Seg Neuts % (Manual) Lymphocytes % (Manual) Seg Neutrophils # Seg Neutrophils # Man Lymphocytes # (Manual) PT INR POC ABG pH 7.508 H POC ABG pCO2 34.2 L POC ABG pO2 Potassium Chloride Carbon Dioxide BUN Creatinine Glucose POC Glucose 145 H 156 H Calcium AST Total Creatine Kinase CK-MB (CK-2) Troponin T NT-Pro-B Natriuret Pep Total Protein Albumin HDL Cholesterol 01/20/19 01/20/19 01/20/19 05:12 11:42 17:36 WBC RBC Hgb Hct MCV RDW Plt Count Lymph % (Auto) Lymph # Seg Neutrophils % Seg Neuts % (Manual) Lymphocytes % (Manual) Seg Neutrophils # Seg Neutrophils # Man Lymphocytes # (Manual) PT INR POC ABG pH POC ABG pCO2 POC ABG pO2 Potassium Chloride Carbon Dioxide BUN Creatinine Glucose POC Glucose 152 H 159 H 169 H Calcium AST Total Creatine Kinase CK-MB (CK-2) Troponin T NT-Pro-B Natriuret Pep Total Protein Albumin HDL Cholesterol 01/20/19 01/21/19 01/21/19 23:29 05:30 05:34 WBC RBC Hgb Hct MCV RDW Plt Count Lymph % (Auto) Lymph # Seg Neutrophils % Seg Neuts % (Manual) Lymphocytes % (Manual) Seg Neutrophils # Seg Neutrophils # Man Lymphocytes # (Manual) PT INR POC ABG pH 7.616 H POC ABG pCO2 POC ABG pO2 71 L Potassium Chloride Carbon Dioxide BUN Creatinine Glucose POC Glucose 139 H 138 H Calcium AST Total Creatine Kinase CK-MB (CK-2) Troponin T NT-Pro-B Natriuret Pep Total Protein Albumin HDL Cholesterol 01/21/19 01/21/19 01/22/19 12:41 18:47 00:07 WBC RBC Hgb Hct MCV RDW Plt Count Lymph % (Auto) Lymph # Seg Neutrophils % Seg Neuts % (Manual) Lymphocytes % (Manual) Seg Neutrophils # Seg Neutrophils # Man Lymphocytes # (Manual) PT INR POC ABG pH POC ABG pCO2 POC ABG pO2 Potassium Chloride Carbon Dioxide BUN Creatinine Glucose POC Glucose 154 H 174 H 163 H Calcium AST Total Creatine Kinase CK-MB (CK-2) Troponin T NT-Pro-B Natriuret Pep Total Protein Albumin HDL Cholesterol 01/22/19 01/22/19 01/22/19 04:35 05:46 12:18 WBC RBC Hgb Hct MCV RDW Plt Count Lymph % (Auto) Lymph # Seg Neutrophils % Seg Neuts % (Manual) Lymphocytes % (Manual) Seg Neutrophils # Seg Neutrophils # Man Lymphocytes # (Manual) PT INR POC ABG pH 7.522 H POC ABG pCO2 POC ABG pO2 Potassium Chloride Carbon Dioxide BUN Creatinine Glucose POC Glucose 159 H 137 H Calcium AST Total Creatine Kinase CK-MB (CK-2) Troponin T NT-Pro-B Natriuret Pep Total Protein Albumin HDL Cholesterol 01/22/19 01/22/19 01/22/19 15:00 15:00 18:13 WBC RBC 2.92 L Hgb 8.4 L Hct 25.6 L MCV RDW Plt Count Lymph % (Auto) Lymph # Seg Neutrophils % Seg Neuts % (Manual) Lymphocytes % (Manual) Seg Neutrophils # Seg Neutrophils # Man Lymphocytes # (Manual) PT INR POC ABG pH POC ABG pCO2 POC ABG pO2 Potassium Chloride 97.0 L Carbon Dioxide BUN 37 H Creatinine Glucose 162 H POC Glucose 159 H Calcium 8.2 L AST Total Creatine Kinase CK-MB (CK-2) Troponin T NT-Pro-B Natriuret Pep Total Protein Albumin HDL Cholesterol 01/22/19 01/23/19 01/23/19 22:45 00:01 05:10 WBC RBC 2.92 L Hgb 8.5 L Hct 25.4 L MCV RDW Plt Count Lymph % (Auto) 6.3 L Lymph # 0.6 L Seg Neutrophils % 86.3 H Seg Neuts % (Manual) Lymphocytes % (Manual) Seg Neutrophils # 8.9 H Seg Neutrophils # Man Lymphocytes # (Manual) PT INR POC ABG pH POC ABG pCO2 POC ABG pO2 Potassium Chloride Carbon Dioxide BUN Creatinine Glucose POC Glucose 178 H 155 H Calcium AST Total Creatine Kinase CK-MB (CK-2) Troponin T NT-Pro-B Natriuret Pep Total Protein Albumin HDL Cholesterol 01/23/19 01/23/19 11:31 Unknown WBC RBC Hgb Hct MCV RDW Plt Count Lymph % (Auto) Lymph # Seg Neutrophils % Seg Neuts % (Manual) Lymphocytes % (Manual) Seg Neutrophils # Seg Neutrophils # Man Lymphocytes # (Manual) PT INR POC ABG pH POC ABG pCO2 POC ABG pO2 Potassium Chloride 95.4 L Carbon Dioxide BUN 37 H Creatinine Glucose 144 H POC Glucose 161 H Calcium AST 88 H Total Creatine Kinase CK-MB (CK-2) Troponin T NT-Pro-B Natriuret Pep Total Protein 6.0 L Albumin 2.9 L HDL Cholesterol Allied health notes reviewed: nursing
[2019-01-24] MEDS: DUONEB *Not for PRN Use IH SCH ×4 (01:07→19:00)
[2019-01-24] MEDS: LASIX PO SCH ×2 (05:47→17:57)
[2019-01-24] MEDS: FLAGYL 500 MG/100 ML 500 MG/100 ML BAG IV SCH ×3 (05:47→22:35)
[2019-01-24] MEDS: HumaLOG SUB-Q SCH ×4 (05:47→17:56)
[2019-01-24 06:05] LABS: Hemoglobin 8.3 gm/dl (10.1-14.3); Mean Corpuscular HGB Conc 33 % (30-34); Mean Corpuscular Volume 86 fl (79-97); Platelet Count 236 K/mm3 (140-440); Red Cell Distribution Width 14.4 % (13.2-15.2)
[2019-01-24 06:30] LABS: BUN/Creatinine Ratio 44; Blood Urea Nitrogen 35 mg/dL (7-17); Calcium 8.4 mg/dL (8.4-10.2); Hemolysis Index 0
--- NOTE | 2019-01-24 08:13 | Progress Note ---
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 supportive care Neurology following Sepsis due to pneumonia On iv Abx. ID Physician following Pneumonia CARMELINA due to ATN Improving Seizure activity COPD/Emphesema Not on home Oxygen History of stroke in 1982 Full code status Discussed with family at bedside. Prognosis guarded History Interval history: Still intubated Still unresponsive Hospitalist Physical - Physical exam Narrative exam: Gen: Not in acute distress,intubated HEENT: Normocephalic, atraumatic Neck: supple, no JVD Heart: S1 and S2 reg, no murmurs, rubs or gallop Lungs: Bilateral crackles, no wheeze Abd: soft, non tender, non distended, normal BS Ext: No edema, no clubbing, no cyanosis, Neuro: Intubated, Not following commands - Constitutional Vitals: Temp Pulse Resp BP Pulse Ox 98.3 F 89 22 141/69 100 01/24/19 04:00 01/24/19 07:09 01/24/19 07:09 01/24/19 07:00 01/24/19 07:00 General appearance: Present: no acute distress, other (intubated) Results - Labs CBC & Chem 7: 01/24/19 Unknown 01/24/19 Unknown Labs: Laboratory Last Values WBC 9.7 K/mm3 (4.5-11.0) 01/24/19 Unknown RBC 2.90 M/mm3 (3.65-5.03) L 01/24/19 Unknown Hgb 8.3 gm/dl (10.1-14.3) L 01/24/19 Unknown Hct 25.0 % (30.3-42.9) L 01/24/19 Unknown MCV 86 fl (79-97) 01/24/19 Unknown MCH 29 pg (28-32) 01/24/19 Unknown MCHC 33 % (30-34) 01/24/19 Unknown RDW 14.4 % (13.2-15.2) 01/24/19 Unknown Plt Count 236 K/mm3 (140-440) 01/24/19 Unknown Lymph % (Auto) 6.3 % (13.4-35.0) L 01/23/19 00:01 Early % (Auto) 6.6 % (0.0-7.3) 01/23/19 00:01 Eos % (Auto) 0.5 % (0.0-4.3) 01/23/19 00:01 Baso % (Auto) 0.3 % (0.0-1.8) 01/23/19 00:01 Lymph # 0.6 K/mm3 (1.2-5.4) L 01/23/19 00:01 Early # 0.7 K/mm3 (0.0-0.8) 01/23/19 00:01 Eos # 0.1 K/mm3 (0.0-0.4) 01/23/19 00:01 Baso # 0.0 K/mm3 (0.0-0.1) 01/23/19 00:01 Add Manual Diff Complete 01/16/19 04:16 Total Counted 100 01/16/19 04:16 Seg Neutrophils % 86.3 % (40.0-70.0) H 01/23/19 00:01 Seg Neuts % (Manual) 74.0 % (40.0-70.0) H 01/16/19 04:16 22.0 % 01/16/19 04:16 2.0 % (13.4-35.0) L 01/16/19 04:16 Reactive Lymphs % (Man) 0 % 01/16/19 04:16 2.0 % (0.0-7.3) 01/16/19 04:16 0 % (0.0-4.3) 01/16/19 04:16 0 % (0.0-1.8) 01/16/19 04:16 0 % 01/16/19 04:16 0 % 01/16/19 04:16 0 % 01/16/19 04:16 0 % 01/16/19 04:16 Nucleated RBC % Not Reportable 01/16/19 04:16 Seg Neutrophils # 8.9 K/mm3 (1.8-7.7) H 01/23/19 00:01 Seg Neutrophils # Man 8.4 K/mm3 (1.8-7.7) H 01/16/19 04:16 Band Neutrophils # 2.5 K/mm3 01/16/19 04:16 0.2 K/mm3 (1.2-5.4) L 01/16/19 04:16 Abs React Lymphs (Man) 0.0 K/mm3 01/16/19 04:16 0.2 K/mm3 (0.0-0.8) 01/16/19 04:16 0.0 K/mm3 (0.0-0.4) 01/16/19 04:16 0.0 K/mm3 (0.0-0.1) 01/16/19 04:16 0.0 K/mm3 01/16/19 04:16 0.0 K/mm3 01/16/19 04:16 0.0 K/mm3 01/16/19 04:16 Blast Cells # 0.0 K/mm3 01/16/19 04:16 WBC Morphology Not Reportable 01/16/19 04:16 Hypersegmented Neuts Not Reportable 01/16/19 04:16 Hyposegmented Neuts Not Reportable 01/16/19 04:16 Hypogranular Neuts Not Reportable 01/16/19 04:16 Not Reportable 01/16/19 04:16 Not Reportable 01/16/19 04:16 Not Reportable 01/16/19 04:16 Not Reportable 01/16/19 04:16 Not Reportable 01/16/19 04:16 Not Reportable 01/16/19 04:16 Consistent w auto 01/16/19 04:16 Not Reportable 01/16/19 04:16 Plt Clumps, EDTA Not Reportable 01/16/19 04:16 Not Reportable 01/16/19 04:16 Not Reportable 01/16/19 04:16 Not Reportable 01/16/19 04:16 Plt Morphology Comment Not Reportable 01/16/19 04:16 RBC Morphology Normal 01/16/19 04:16 Dimorphic RBCs Not Reportable 01/16/19 04:16 Not Reportable 01/16/19 04:16 Not Reportable 01/16/19 04:16 Not Reportable 01/16/19 04:16 Not Reportable 01/16/19 04:16 Not Reportable 01/16/19 04:16 Not Reportable 01/16/19 04:16 Not Reportable 01/16/19 04:16 Not Reportable 01/16/19 04:16 Not Reportable 01/16/19 04:16 Not Reportable 01/16/19 04:16 Not Reportable 01/16/19 04:16 Not Reportable 01/16/19 04:16 Not Reportable 01/16/19 04:16 Not Reportable 01/16/19 04:16 Not Reportable 01/16/19 04:16 Not Reportable 01/16/19 04:16 Not Reportable 01/16/19 04:16 Not Reportable 01/16/19 04:16 Not Reportable 01/16/19 04:16 Acanthocytes (Spur) Not Reportable 01/16/19 04:16 Rouleaux Not Reportable 01/16/19 04:16 Not Reportable 01/16/19 04:16 Not Reportable 01/16/19 04:16 Not Reportable 01/16/19 04:16 Not Reportable 01/16/19 04:16 Hem Pathologist Commnt No 01/16/19 04:16 PT 19.7 Sec. (12.2-14.9) H 01/15/19 07:50 INR 1.56 (0.87-1.13) H 01/15/19 07:50 APTT 36.0 Sec. (24.2-36.6) 01/15/19 07:50 POC ABG pH 7.522 (7.35-7.45) H 01/22/19 04:35 POC ABG pCO2 36.3 (35-45) 01/22/19 04:35 POC ABG pO2 94 (80-105) 01/22/19 04:35 POC ABG HCO3 29.8 (22-26 mml/L) 01/22/19 04:35 POC ABG Total CO2 31 (23-27mmol/L) 01/22/19 04:35 POC ABG O2 Sat 98 01/22/19 04:35 POC ABG Base Excess 7 ((-2) - (+3)mmol/L) 01/22/19 04:35 25 % 01/22/19 04:35 Sodium 134 mmol/L (137-145) L 01/24/19 Unknown Potassium 4.5 mmol/L (3.6-5.0) 01/24/19 Unknown Chloride 94.4 mmol/L (98-107) L 01/24/19 Unknown Carbon Dioxide 29 mmol/L (22-30) 01/24/19 Unknown 15 mmol/L 01/24/19 Unknown BUN 35 mg/dL (7-17) H 01/24/19 Unknown 0.8 mg/dL (0.7-1.2) 01/24/19 Unknown Estimated GFR > 60 ml/min 01/24/19 Unknown 44 % 01/24/19 Unknown Glucose 151 mg/dL (65-100) H 01/24/19 Unknown POC Glucose 147 (70-105) H 01/24/19 05:36 6.0 % (4-6) 01/15/19 11:53 Calcium 8.4 mg/dL (8.4-10.2) 01/24/19 Unknown 0.30 mg/dL (0.1-1.2) 01/23/19 Unknown AST 88 units/L (5-40) H 01/23/19 Unknown ALT 31 units/L (7-56) 01/23/19 Unknown 48 units/L (35-129) 01/23/19 Unknown 1430 units/L (30-135) H 01/15/19 17:52 CK-MB (CK-2) 13.5 ng/mL (0.0-4.0) H 01/15/19 17:52 CK-MB (CK-2) Rel Index 0.9 (0-4) 01/15/19 17:52 0.036 ng/mL (0.00-0.029) H D 01/15/19 17:52 NT-Pro-B Natriuret Pep 5346 pg/mL (0-900) H 01/15/19 07:50 6.0 g/dL (6.3-8.2) L 01/23/19 Unknown 2.9 g/dL (3.9-5) L 01/23/19 Unknown 0.9 % 01/23/19 Unknown Triglycerides 75 mg/dL (2-149) 01/15/19 17:52 Cholesterol 149 mg/dL (50-199) 01/15/19 17:52 84 mg/dL (50-130) 01/15/19 17:52 65 mg/dL (40-59) H 01/15/19 17:52 2.29 % 01/15/19 17:52 Yellow (Yellow) 01/21/19 16:10 Clear (Clear) 01/21/19 16:10 6.0 (5.0-7.0) 01/21/19 16:10 Ur Specific [place] 1.015 (1.003-1.030) 01/21/19 16:10 <15 mg/dl mg/dL (Negative) 01/21/19 16:10 Neg mg/dL (Negative) 01/21/19 16:10 Neg mg/dL (Negative) 01/21/19 16:10 Neg (Negative) 01/21/19 16:10 Neg (Negative) 01/21/19 16:10 Neg (Negative) 01/21/19 16:10 2.0 mg/dL (<2.0) 01/21/19 16:10 Ur Leukocyte Esterase Neg (Negative) 01/21/19 16:10 1.0 /HPF (0.0-6.0) 01/21/19 16:10 5.0 /HPF (0.0-6.0) 01/21/19 16:10 Presumptive negative 01/15/19 16:30 Presumptive negative 01/15/19 16:30 Ur Barbiturates Screen Presumptive negative 01/15/19 16:30 Ur Phencyclidine Scrn Presumptive negative 01/15/19 16:30 Ur Amphetamines Screen Presumptive negative 01/15/19 16:30 U Benzodiazepines Scrn Presumptive negative 01/15/19 16:30 Presumptive negative 01/15/19 16:30 U Marijuana (THC) Screen Presumptive negative 01/15/19 16:30 Disclamer 01/15/19 16:30 C. difficile Tox (PCR) Negative (Negative) 01/16/19 00:00 Active Medications - Current Medications Current Medications: Generic Name Dose Route Start Last Admin Trade Name Freq PRN Reason Stop Dose Admin Acetaminophen 650 mg 01/16/19 09:37 01/20/19 00:24 Tylenol PO 650 mg Q4H PRN Administration Fever >101 Albuterol/Ipratropium 1 ampul 01/15/19 14:00 01/24/19 07:09 Duoneb *Not For Prn Use* IH 1 ampul Q6HRT DEON Administration Lipase/Protease/Amylase 1 each 01/15/19 14:37 Pancreaze 10,500 Unit FEEDTUBE PRN PRN For Clogged Feeding Tube Aspirin 81 mg 01/16/19 10:00 01/23/19 09:58 Baby Aspirin PO 81 mg QDAY DEON Administration Atorvastatin Calcium 20 mg 01/16/19 22:00 01/23/19 21:44 Lipitor PO 20 mg QHS DEON Administration Carvedilol 6.25 mg 01/16/19 12:00 01/23/19 21:44 Coreg PO 6.25 mg BID DEON Administration Famotidine 20 mg 01/22/19 10:00 01/23/19 09:59 Pepcid PO 20 mg DAILY DEON Administration Fondaparinux 2.5 mg 01/20/19 10:00 01/23/19 09:57 Arixtra SUB-Q 2.5 mg QDAY DEON Administration Furosemide 20 mg 01/19/19 18:00 01/24/19 05:47 Lasix PO 20 mg 0600,1800 DEON Administration Ceftriaxone Sodium 2 gm in 100 mls @ 200 mls/hr 01/20/19 15:00 01/23/19 09:57 Rocephin/Ns 2 Gm/100 Ml IV 200 mls/hr Q24HR DEON Administration Protocol Metronidazole 500 mg in 100 mls @ 100 mls/hr 01/20/19 16:00 01/24/19 05:47 Flagyl 500 Mg/100 Ml IV 100 mls/hr Q8HR DEON Administration Protocol Insulin Human Lispro 0 unit 01/22/19 14:00 01/24/19 08:02 Humalog SUB-Q Not Given Q6HR [facility] Protocol Levetiracetam 750 mg 01/18/19 10:00 01/23/19 21:43 Keppra PO 750 mg BID DEON Administration Modafinil 100 mg 01/20/19 10:00 01/23/19 09:59 Provigil PO 100 mg QAM DEON Administration Simple Syrup 15 ml 01/15/19 14:37 Simple Syrup FEEDTUBE PRN PRN Hypoglycemia Simple Syrup 30 ml 01/15/19 14:37 Simple Syrup FEEDTUBE PRN PRN Hypoglycemia Sodium Bicarbonate 325 mg 01/15/19 14:37 Sodium Bicarbonate FEEDTUBE PRN PRN For Clogged Feeding Tube Sodium Chloride 10 ml 01/15/19 22:00 01/23/19 21:43 Sodium Chloride Flush Syringe 10 Ml IV 10 ml BID DEON Administration Sodium Chloride 10 ml 01/15/19 10:34 Sodium Chloride Flush Syringe 10 Ml IV PRN PRN LINE FLUSH Nutrition/Malnutrition Assess - Dietary Evaluation Nutrition/Malnutrition Findings: Nutrition Notes Start: 01/15/19 14:28 Freq: Status: Active Protocol: Document 01/18/19 10:28 EB (Rec: 01/18/19 10:30 EB [id number]) Co-Sign 01/18/19 10:28 LP Nutrition Notes Initial or Follow up Reassessment Other Pertinent Diagnosis s/p cardiorespiratory arrest ( at home) Current Diet Glucerna 1.2 at 50 mL/hr Labs/Tests Reviewed Pertinent Medications Dopamine gtt Height 5 ft 4 in Weight 49.3 kg [place] Body Weight (kg) 54.54 BMI 18.6 Subjective/Other Information TF running at goal rate at time of visit and RN states no residuals. Percent of energy/protein needs met: 97%/100% Burn Absent Trauma Absent #1 Nutrition Diagnosis Inadequate oral intake Diagnosis Progress(for reassessment Continues documentation) Is patient on ventilator? Yes Is Patient Ambulatory and/or Out of Bed No REE-([facility]-confined to bed) 1174.212 Kcal/Kg value to use for calculation 30 Approximate Energy Requirements Using 1479 kcal/Kg Calculation Used for Recommendations Kcal/kg Additional Notes Pro needs 1.2-2g/k-100g/ day Fluid needs 1ml/kcal Nutrition Intervention Nutrition Support: Glucerna 1.2 at 50ml/hr with 80ml water flush q4h. Kcal 1,440 Protein (gm) 72 Carbohydrates (gm) 137 Fluid (mL) 966 Fiber (gm) 19 Goal #1 TF tolerance Goal #2 TF to continue to meet 100% energy and pro needs Goal #3 Wt maintenance and/or gain Anticipated Discharge Needs: Unable to identify at this time Follow-Up By: 01/25/19 Additional Comments F/U: TF tolerance
--- NOTE | 2019-01-24 09:24 | Event Note ---
Date: 01/24/19 Trach/PEG scheduled for tomorrow at 12pm
[2019-01-24] MEDS: COREG PO SCH ×2 (10:01→22:40)
[2019-01-24] MEDS: KEPPRA PO SCH ×2 (10:01→22:40)
[2019-01-24] MEDS: PEPCID PO SCH (10:01)
[2019-01-24] MEDS: BABY ASPIRIN PO SCH (10:01)
[2019-01-24] MEDS: PROVIGIL PO SCH (10:01)
[2019-01-24] MEDS: ARIXTRA SUB-Q SCH (10:02)
[2019-01-24] MEDS: ROCEPHIN/NS 2 GM/100 ML 2 GM/100 ML BAG IV SCH (10:02)
[2019-01-24] MEDS: SODIUM CHLORIDE FLUSH SYRINGE 10 ML IV SCH (10:02)
--- NOTE | 2019-01-24 10:18 | Progress Note ---
Assessment and Plan s/p Cardiopulmonary arrest, out of hospital, PEA with ROSC Acute hypoxic-hypercapnic respiratory failure on MVS Acute encephalopathy, metabolic Acute metabolic acidosis Acute renal injury Seizure activity Right lower lobe infiltrate, probably aspiration Pyrexia with leukocytosis Pulmonary HTN RVSP 60 Systolic heart failure EF 35-40% Thrombocytopenia (AMS is rate limiting step to safe extubation at this point) - for tracheostomy tomorrow - continue provigil - follow HIT assay (pending) - continue Arixtra and follow platelet count - continue and de-escalate AB's per ID rec's (on Flagyl) - continue set rate at 12/min on MVS - neurology evaluation ongoing - Gentle diuresis with oral lasix (now 20mg bid) - continue alex SAT's & SBT's - sedation target for RASS 0 to -1 - continue GO & VTE prophylaxis - Bronchodilators with pulmonary hygiene per RT - continue to wean supplemental oxygen to keep O2 sats 88-90% - Lung protective strategies - prn ABGs/CXR going forwards - VAP bundle addressed - Continue cardioprotective measures - Replete electrolytes as indicated - Tracheal aspirate, blood cultures are negative to date - Continue bronchodilators with pulmonary hygiene per RT - Cooper catheter placed for acute urinary retention. Plan to discontinue cooper in the next 24 hours and monitor - Continue to rest at night on full MVS - Monitor renal indices closely - Avoid nephrotoxic agents, adjust all medications for CrCL - Strict intake and output monitoring - Tube feedings - Accuchecks with glycemic control. Target glucose of 140-180 mg/dL - Maintenance of sleep -wake cycle - Mobility as tolerated by hemodynamics - Influenza and pneumonia vaccination per protocol ..care plan discussed at length with RN/RT at the bedside ..discussed in ICU-IDT rounds PROGNOSIS: GUARDED CONDITION: CRITICAL CODE STATUS: FULL CODE The high probability of a clinically significant, sudden or life-threatening deterioration of the [respiratory, neurology, renal] system(s) required my full and direct attention, intervention and personal management. The aggregate critical care time was [31] minutes without overlap. Time includes spent on; [x] Data Review and interpretation [x] Patient assessment and monitoring of vital signs [x] Documentation [x] Medication orders and management Subjective Date of service: 01/24/19 Principal diagnosis: OOH cardiac arrest; Acute hypoxemic-hypercapnic Resp failure; PNA Interval history: Patient is seen today for: OOH cardiopulmonary arrest with ROSC; Acute hypoxemic-hypercapnic respiratory failure on MVS; acute encephalopathy; aspiration pneumonia; Seen and examined at bedside; 24hour events reviewed; nursing and respiratory care staff consulted; no adverse overnight events reported to me; remains on MVS; grand daughter visiting; tentatively for trach in am; AMS is persistent Objective Vital Signs - 12hr 01/23/19 01/23/19 01/23/19 22:30 23:00 23:16 Temperature Pulse Rate 83 85 80 Pulse Rate [ Anterior Bilateral Throughout] Pulse Rate [ Anterior Left Throughout] Pulse Rate [ Anterior Right Throughout] Respiratory 27 H 28 H Rate Respiratory Rate [Anterior Bilateral Throughout] Respiratory Rate [Anterior Left Throughout ] Respiratory Rate [Anterior Right Throughout] Blood Pressure 123/64 122/63 122/63 O2 Sat by Pulse 100 100 100 Oximetry 01/23/19 01/24/19 01/24/19 23:30 00:00 00:31 Temperature 98.9 F Pulse Rate 80 78 74 Pulse Rate [ Anterior Bilateral Throughout] Pulse Rate [ Anterior Left Throughout] Pulse Rate [ Anterior Right Throughout] Respiratory 19 25 H 14 Rate Respiratory Rate [Anterior Bilateral Throughout] Respiratory Rate [Anterior Left Throughout ] Respiratory Rate [Anterior Right Throughout] Blood Pressure 127/64 110/63 127/64 O2 Sat by Pulse 99 100 100 Oximetry 01/24/19 01/24/19 01/24/19 01:00 01:07 01:31 Temperature Pulse Rate 79 76 Pulse Rate [ 77 Anterior Bilateral Throughout] Pulse Rate [ Anterior Left Throughout] Pulse Rate [ Anterior Right Throughout] Respiratory 20 13 Rate Respiratory 19 Rate [Anterior Bilateral Throughout] Respiratory Rate [Anterior Left Throughout ] Respiratory Rate [Anterior Right Throughout] Blood Pressure 126/70 110/63 O2 Sat by Pulse 99 100 Oximetry 01/24/19 01/24/19 01/24/19 02:00 02:31 03:00 Temperature Pulse Rate 84 82 79 Pulse Rate [ Anterior Bilateral Throughout] Pulse Rate [ Anterior Left Throughout] Pulse Rate [ Anterior Right Throughout] Respiratory 21 17 17 Rate Respiratory Rate [Anterior Bilateral Throughout] Respiratory Rate [Anterior Left Throughout ] Respiratory Rate [Anterior Right Throughout] Blood Pressure 132/71 132/71 129/77 O2 Sat by Pulse 99 100 100 Oximetry 01/24/19 01/24/19 01/24/19 03:15 03:31 04:00 Temperature 98.3 F Pulse Rate 81 83 82 Pulse Rate [ Anterior Bilateral Throughout] Pulse Rate [ Anterior Left Throughout] Pulse Rate [ Anterior Right Throughout] Respiratory 26 H 25 H Rate Respiratory Rate [Anterior Bilateral Throughout] Respiratory Rate [Anterior Left Throughout ] Respiratory Rate [Anterior Right Throughout] Blood Pressure 129/77 129/77 127/72 O2 Sat by Pulse 100 100 100 Oximetry 01/24/19 01/24/19 01/24/19 04:31 05:00 06:00 Temperature Pulse Rate 86 86 84 Pulse Rate [ Anterior Bilateral Throughout] Pulse Rate [ Anterior Left Throughout] Pulse Rate [ Anterior Right Throughout] Respiratory 17 22 14 Rate Respiratory Rate [Anterior Bilateral Throughout] Respiratory Rate [Anterior Left Throughout ] Respiratory Rate [Anterior Right Throughout] Blood Pressure 129/77 144/82 137/73 O2 Sat by Pulse 100 100 99 Oximetry 01/24/19 01/24/19 01/24/19 07:00 07:09 08:00 Temperature 98.3 F Pulse Rate 79 Pulse Rate [ Anterior Bilateral Throughout] Pulse Rate [ 82 Anterior Left Throughout] Pulse Rate [ 89 Anterior Right Throughout] Respiratory 16 Rate Respiratory Rate [Anterior Bilateral Throughout] Respiratory 21 Rate [Anterior Left Throughout ] Respiratory 22 Rate [Anterior Right Throughout] Blood Pressure 141/69 O2 Sat by Pulse 100 Oximetry 01/24/19 01/24/19 01/24/19 08:01 08:50 09:00 Temperature Pulse Rate 93 H 94 H 93 H Pulse Rate [ Anterior Bilateral Throughout] Pulse Rate [ Anterior Left Throughout] Pulse Rate [ Anterior Right Throughout] Respiratory 16 20 33 H Rate Respiratory Rate [Anterior Bilateral Throughout] Respiratory Rate [Anterior Left Throughout ] Respiratory Rate [Anterior Right Throughout] Blood Pressure 164/99 164/99 172/96 O2 Sat by Pulse 100 100 100 Oximetry 01/24/19 01/24/19 10:00 10:01 Temperature Pulse Rate 92 H 98 H Pulse Rate [ Anterior Bilateral Throughout] Pulse Rate [ Anterior Left Throughout] Pulse Rate [ Anterior Right Throughout] Respiratory 32 H Rate Respiratory Rate [Anterior Bilateral Throughout] Respiratory Rate [Anterior Left Throughout ] Respiratory Rate [Anterior Right Throughout] Blood Pressure 172/95 O2 Sat by Pulse 100 Oximetry Constitutional: no acute distress, other (elderly, atraumatic, normocephalic, chronically looking female) Eyes: non-icteric ENT: oropharynx moist, other (ETT at 23cm) Neck: supple, no lymphadenopathy, no JVD Effort: normal Ascultation: Bilateral: diminished breath sounds, rhonchi (scant) Percussion: Bilateral: not dull Cardiovascular: regular rate and rhythm, other (tacycardia, S1,S2, no murmurs, gallops or rubs) Gastrointestinal: normoactive bowel sounds, soft, non-tender, non-distended Integumentary: normal Extremities: no cyanosis, no edema, pulses normal, no ischemia or petechiae Neurologic: unable to assess Psychiatric: other (unable to assess secondary to mental status) CBC and BMP: 01/26/19 06:35 01/26/19 06:35 ABG, PT/INR, D-dimer: ABG POC ABG pH 7.522 (7.35-7.45) H 01/22/19 04:35 POC ABG pCO2 36.3 (35-45) 01/22/19 04:35 POC ABG pO2 94 (80-105) 01/22/19 04:35 POC ABG HCO3 29.8 (22-26 mml/L) 01/22/19 04:35 POC ABG Total CO2 31 (23-27mmol/L) 01/22/19 04:35 POC ABG O2 Sat 98 01/22/19 04:35 PT/INR, D-dimer PT 19.7 Sec. (12.2-14.9) H 01/15/19 07:50 INR 1.56 (0.87-1.13) H 01/15/19 07:50 Abnormal lab findings: Abnormal Labs 01/15/19 01/15/19 01/15/19 07:50 07:50 07:50 WBC RBC Hgb Hct MCV 99 H RDW 16.7 H Plt Count 122 L Lymph % (Auto) Lymph # Seg Neutrophils % Seg Neuts % (Manual) Lymphocytes % (Manual) Seg Neutrophils # Seg Neutrophils # Man Lymphocytes # (Manual) PT 19.7 H INR 1.56 H POC ABG pH POC ABG pCO2 POC ABG pO2 Sodium Potassium Chloride Carbon Dioxide 11 L BUN Creatinine 1.4 H Glucose 268 H POC Glucose Calcium AST 57 H Total Creatine Kinase CK-MB (CK-2) Troponin T NT-Pro-B Natriuret Pep 5346 H Total Protein Albumin 3.6 L HDL Cholesterol 01/15/19 01/15/19 01/15/19 09:56 11:53 17:52 WBC RBC Hgb Hct MCV RDW Plt Count Lymph % (Auto) Lymph # Seg Neutrophils % Seg Neuts % (Manual) Lymphocytes % (Manual) Seg Neutrophils # Seg Neutrophils # Man Lymphocytes # (Manual) PT INR POC ABG pH 7.186 L POC ABG pCO2 46.4 H POC ABG pO2 Sodium Potassium Chloride Carbon Dioxide BUN Creatinine Glucose POC Glucose Calcium AST Total Creatine Kinase 683 H 1430 H CK-MB (CK-2) 9.5 H 13.5 H Troponin T 0.036 H D NT-Pro-B Natriuret Pep Total Protein Albumin HDL Cholesterol 65 H 01/15/19 01/15/19 01/16/19 18:31 21:46 02:14 WBC RBC Hgb Hct MCV RDW Plt Count Lymph % (Auto) Lymph # Seg Neutrophils % Seg Neuts % (Manual) Lymphocytes % (Manual) Seg Neutrophils # Seg Neutrophils # Man Lymphocytes # (Manual) PT INR POC ABG pH POC ABG pCO2 31.8 L POC ABG pO2 167 H Sodium Potassium Chloride Carbon Dioxide BUN Creatinine Glucose POC Glucose 134 H 136 H Calcium AST Total Creatine Kinase CK-MB (CK-2) Troponin T NT-Pro-B Natriuret Pep Total Protein Albumin HDL Cholesterol 01/16/19 01/16/19 01/16/19 04:16 04:16 05:05 WBC 11.4 H RBC Hgb Hct MCV RDW Plt Count 105 L Lymph % (Auto) Lymph # Seg Neutrophils % Seg Neuts % (Manual) 74.0 H Lymphocytes % (Manual) 2.0 L Seg Neutrophils # Seg Neutrophils # Man 8.4 H Lymphocytes # (Manual) 0.2 L PT INR POC ABG pH 7.458 H POC ABG pCO2 31.4 L POC ABG pO2 135 H Sodium Potassium 3.3 L Chloride Carbon Dioxide 21 L D BUN 24 H Creatinine 1.5 H Glucose 141 H POC Glucose Calcium 8.1 L AST 71 H Total Creatine Kinase CK-MB (CK-2) Troponin T NT-Pro-B Natriuret Pep Total Protein 6.2 L Albumin 3.5 L HDL Cholesterol 01/16/19 01/16/19 01/16/19 05:24 13:42 21:08 WBC RBC Hgb Hct MCV RDW Plt Count Lymph % (Auto) Lymph # Seg Neutrophils % Seg Neuts % (Manual) Lymphocytes % (Manual) Seg Neutrophils # Seg Neutrophils # Man Lymphocytes # (Manual) PT INR POC ABG pH POC ABG pCO2 POC ABG pO2 Sodium Potassium Chloride Carbon Dioxide BUN Creatinine Glucose POC Glucose 137 H 129 H 122 H Calcium AST Total Creatine Kinase CK-MB (CK-2) Troponin T NT-Pro-B Natriuret Pep Total Protein Albumin HDL Cholesterol 01/17/19 01/17/19 01/17/19 02:18 04:23 05:13 WBC RBC Hgb Hct MCV RDW Plt Count Lymph % (Auto) Lymph # Seg Neutrophils % Seg Neuts % (Manual) Lymphocytes % (Manual) Seg Neutrophils # Seg Neutrophils # Man Lymphocytes # (Manual) PT INR POC ABG pH 7.479 H POC ABG pCO2 30.0 L POC ABG pO2 141 H Sodium Potassium Chloride Carbon Dioxide BUN Creatinine Glucose POC Glucose 139 H 128 H Calcium AST Total Creatine Kinase CK-MB (CK-2) Troponin T NT-Pro-B Natriuret Pep Total Protein Albumin HDL Cholesterol 01/17/19 01/17/19 01/17/19 10:22 15:59 18:45 WBC RBC Hgb Hct MCV RDW Plt Count Lymph % (Auto) Lymph # Seg Neutrophils % Seg Neuts % (Manual) Lymphocytes % (Manual) Seg Neutrophils # Seg Neutrophils # Man Lymphocytes # (Manual) PT INR POC ABG pH POC ABG pCO2 POC ABG pO2 Sodium Potassium Chloride Carbon Dioxide BUN Creatinine Glucose POC Glucose 133 H 121 H 106 H Calcium AST Total Creatine Kinase CK-MB (CK-2) Troponin T NT-Pro-B Natriuret Pep Total Protein Albumin HDL Cholesterol 01/17/19 01/18/19 01/18/19 23:35 04:21 04:21 WBC RBC 3.27 L Hgb 9.6 L Hct 29.9 L MCV RDW Plt Count 79 L Lymph % (Auto) 6.0 L Lymph # 0.5 L Seg Neutrophils % 89.2 H Seg Neuts % (Manual) Lymphocytes % (Manual) Seg Neutrophils # 8.1 H Seg Neutrophils # Man Lymphocytes # (Manual) PT INR POC ABG pH POC ABG pCO2 POC ABG pO2 Sodium Potassium Chloride Carbon Dioxide BUN 28 H Creatinine 1.3 H Glucose 129 H POC Glucose 121 H Calcium AST 120 H Total Creatine Kinase CK-MB (CK-2) Troponin T NT-Pro-B Natriuret Pep Total Protein 5.1 L Albumin 3.0 L HDL Cholesterol 05/02/19 05/02/19 05/02/19 04:21 04:36 05:43 WBC RBC Hgb Hct MCV RDW Plt Count Lymph % (Auto) Lymph # Seg Neutrophils % Seg Neuts % (Manual) Lymphocytes % (Manual) Seg Neutrophils # Seg Neutrophils # Man Lymphocytes # (Manual) PT INR POC ABG pH 7.485 H POC ABG pCO2 31.0 L POC ABG pO2 126 H Sodium Potassium Chloride Carbon Dioxide BUN 28 H Creatinine 1.3 H Glucose 128 H POC Glucose 142 H Calcium AST Total Creatine Kinase CK-MB (CK-2) Troponin T NT-Pro-B Natriuret Pep Total Protein Albumin HDL Cholesterol 01/18/19 01/18/19 01/18/19 12:04 18:16 20:47 WBC RBC Hgb Hct MCV RDW Plt Count Lymph % (Auto) Lymph # Seg Neutrophils % Seg Neuts % (Manual) Lymphocytes % (Manual) Seg Neutrophils # Seg Neutrophils # Man Lymphocytes # (Manual) PT INR POC ABG pH 7.489 H POC ABG pCO2 32.8 L POC ABG pO2 Sodium Potassium Chloride Carbon Dioxide BUN Creatinine Glucose POC Glucose 113 H 119 H Calcium AST Total Creatine Kinase CK-MB (CK-2) Troponin T NT-Pro-B Natriuret Pep Total Protein Albumin HDL Cholesterol 01/19/19 01/19/19 01/19/19 00:40 05:35 11:39 WBC RBC Hgb Hct MCV RDW Plt Count Lymph % (Auto) Lymph # Seg Neutrophils % Seg Neuts % (Manual) Lymphocytes % (Manual) Seg Neutrophils # Seg Neutrophils # Man Lymphocytes # (Manual) PT INR POC ABG pH POC ABG pCO2 POC ABG pO2 Sodium Potassium Chloride Carbon Dioxide BUN Creatinine Glucose POC Glucose 137 H 157 H 155 H Calcium AST Total Creatine Kinase CK-MB (CK-2) Troponin T NT-Pro-B Natriuret Pep Total Protein Albumin HDL Cholesterol 01/19/19 01/19/19 01/19/19 18:24 21:08 23:33 WBC RBC Hgb Hct MCV RDW Plt Count Lymph % (Auto) Lymph # Seg Neutrophils % Seg Neuts % (Manual) Lymphocytes % (Manual) Seg Neutrophils # Seg Neutrophils # Man Lymphocytes # (Manual) PT INR POC ABG pH 7.508 H POC ABG pCO2 34.2 L POC ABG pO2 Sodium Potassium Chloride Carbon Dioxide BUN Creatinine Glucose POC Glucose 145 H 156 H Calcium AST Total Creatine Kinase CK-MB (CK-2) Troponin T NT-Pro-B Natriuret Pep Total Protein Albumin HDL Cholesterol 01/20/19 01/20/19 01/20/19 05:12 11:42 17:36 WBC RBC Hgb Hct MCV RDW Plt Count Lymph % (Auto) Lymph # Seg Neutrophils % Seg Neuts % (Manual) Lymphocytes % (Manual) Seg Neutrophils # Seg Neutrophils # Man Lymphocytes # (Manual) PT INR POC ABG pH POC ABG pCO2 POC ABG pO2 Sodium Potassium Chloride Carbon Dioxide BUN Creatinine Glucose POC Glucose 152 H 159 H 169 H Calcium AST Total Creatine Kinase CK-MB (CK-2) Troponin T NT-Pro-B Natriuret Pep Total Protein Albumin HDL Cholesterol 01/20/19 01/21/19 01/21/19 23:29 05:30 05:34 WBC RBC Hgb Hct MCV RDW Plt Count Lymph % (Auto) Lymph # Seg Neutrophils % Seg Neuts % (Manual) Lymphocytes % (Manual) Seg Neutrophils # Seg Neutrophils # Man Lymphocytes # (Manual) PT INR POC ABG pH 7.616 H POC ABG pCO2 POC ABG pO2 71 L Sodium Potassium Chloride Carbon Dioxide BUN Creatinine Glucose POC Glucose 139 H 138 H Calcium AST Total Creatine Kinase CK-MB (CK-2) Troponin T NT-Pro-B Natriuret Pep Total Protein Albumin HDL Cholesterol 01/21/19 01/21/19 01/22/19 12:41 18:47 00:07 WBC RBC Hgb Hct MCV RDW Plt Count Lymph % (Auto) Lymph # Seg Neutrophils % Seg Neuts % (Manual) Lymphocytes % (Manual) Seg Neutrophils # Seg Neutrophils # Man Lymphocytes # (Manual) PT INR POC ABG pH POC ABG pCO2 POC ABG pO2 Sodium Potassium Chloride Carbon Dioxide BUN Creatinine Glucose POC Glucose 154 H 174 H 163 H Calcium AST Total Creatine Kinase CK-MB (CK-2) Troponin T NT-Pro-B Natriuret Pep Total Protein Albumin HDL Cholesterol 01/22/19 01/22/19 01/22/19 04:35 05:46 12:18 WBC RBC Hgb Hct MCV RDW Plt Count Lymph % (Auto) Lymph # Seg Neutrophils % Seg Neuts % (Manual) Lymphocytes % (Manual) Seg Neutrophils # Seg Neutrophils # Man Lymphocytes # (Manual) PT INR POC ABG pH 7.522 H POC ABG pCO2 POC ABG pO2 Sodium Potassium Chloride Carbon Dioxide BUN Creatinine Glucose POC Glucose 159 H 137 H Calcium AST Total Creatine Kinase CK-MB (CK-2) Troponin T NT-Pro-B Natriuret Pep Total Protein Albumin HDL Cholesterol 01/22/19 01/22/19 01/22/19 15:00 15:00 18:13 WBC RBC 2.92 L Hgb 8.4 L Hct 25.6 L MCV RDW Plt Count Lymph % (Auto) Lymph # Seg Neutrophils % Seg Neuts % (Manual) Lymphocytes % (Manual) Seg Neutrophils # Seg Neutrophils # Man Lymphocytes # (Manual) PT INR POC ABG pH POC ABG pCO2 POC ABG pO2 Sodium Potassium Chloride 97.0 L Carbon Dioxide BUN 37 H Creatinine Glucose 162 H POC Glucose 159 H Calcium 8.2 L AST Total Creatine Kinase CK-MB (CK-2) Troponin T NT-Pro-B Natriuret Pep Total Protein Albumin HDL Cholesterol 01/22/19 01/23/19 01/23/19 22:45 00:01 05:10 WBC RBC 2.92 L Hgb 8.5 L Hct 25.4 L MCV RDW Plt Count Lymph % (Auto) 6.3 L Lymph # 0.6 L Seg Neutrophils % 86.3 H Seg Neuts % (Manual) Lymphocytes % (Manual) Seg Neutrophils # 8.9 H Seg Neutrophils # Man Lymphocytes # (Manual) PT INR POC ABG pH POC ABG pCO2 POC ABG pO2 Sodium Potassium Chloride Carbon Dioxide BUN Creatinine Glucose POC Glucose 178 H 155 H Calcium AST Total Creatine Kinase CK-MB (CK-2) Troponin T NT-Pro-B Natriuret Pep Total Protein Albumin HDL Cholesterol 01/23/19 01/23/19 01/23/19 11:31 17:49 Unknown WBC RBC Hgb Hct MCV RDW Plt Count Lymph % (Auto) Lymph # Seg Neutrophils % Seg Neuts % (Manual) Lymphocytes % (Manual) Seg Neutrophils # Seg Neutrophils # Man Lymphocytes # (Manual) PT INR POC ABG pH POC ABG pCO2 POC ABG pO2 Sodium Potassium Chloride 95.4 L Carbon Dioxide BUN 37 H Creatinine Glucose 144 H POC Glucose 161 H 142 H Calcium AST 88 H Total Creatine Kinase CK-MB (CK-2) Troponin T NT-Pro-B Natriuret Pep Total Protein 6.0 L Albumin 2.9 L HDL Cholesterol 01/24/19 01/24/19 01/24/19 00:21 05:36 Unknown WBC RBC 2.90 L Hgb 8.3 L Hct 25.0 L MCV RDW Plt Count Lymph % (Auto) Lymph # Seg Neutrophils % Seg Neuts % (Manual) Lymphocytes % (Manual) Seg Neutrophils # Seg Neutrophils # Man Lymphocytes # (Manual) PT INR POC ABG pH POC ABG pCO2 POC ABG pO2 Sodium Potassium Chloride Carbon Dioxide BUN Creatinine Glucose POC Glucose 163 H 147 H Calcium AST Total Creatine Kinase CK-MB (CK-2) Troponin T NT-Pro-B Natriuret Pep Total Protein Albumin HDL Cholesterol 01/24/19 Unknown WBC RBC Hgb Hct MCV RDW Plt Count Lymph % (Auto) Lymph # Seg Neutrophils % Seg Neuts % (Manual) Lymphocytes % (Manual) Seg Neutrophils # Seg Neutrophils # Man Lymphocytes # (Manual) PT INR POC ABG pH POC ABG pCO2 POC ABG pO2 Sodium 134 L Potassium Chloride 94.4 L Carbon Dioxide BUN 35 H Creatinine Glucose 151 H POC Glucose Calcium AST Total Creatine Kinase CK-MB (CK-2) Troponin T NT-Pro-B Natriuret Pep Total Protein Albumin HDL Cholesterol Chest x-ray: image reviewed Allied health notes reviewed: nursing
--- NOTE | 2019-01-24 10:49 | Progress Note ---
Assessment and Plan Cultures: Blood culture 01/15/2019 no growth. Stool culture 01/20/2019 no growth today. Trachea asp culture 01/15/2019 upper resp papo. Urine culture 01/21/2019: no growth to date Blood culture 01/21/2019: no growth Assessment: 73 y/o female with a history of diastolic CHF, cardiomyopathy, CAD s/p sten, pericardial effusion requiring pericardiocentesis (2012), hypertension, COPD with emphysema, CKD and gout: admitted on 01/15/19 after a cardiac arrest. 1) S/p Cardiopulmonary arrest, out of hospital, PEA with ROSC 2) Acute respiratory failure: intubated on SBT 3) Acute encephalopathy: metabolic. Head CT shows no evidence for acute ischemia 4) CARMELINA: improving 5) Seizure activity 6) Sepsis:. Resolved. Etiology possible asp pneumonia, ? central fever, ? drug fever. Trachea asp culture 01/15/2019 upper resp papo. U/A w/o pyuria. Urine culture in progress. 7) Thrombocytopenia: resolved 8) Diarrhea: C diff negative.Stool culture 01/15/2019 no growth. 9) Bladder retention now with cooper 10) Possible contact dermatitis: Etio possible ?monitor leads. Triancinolone cream ordered to be applied twice a day. Recommendations: - Continue ceftriaxone and flagy, D5 of D7 - Triancinolone cream ordered for contact dermatitis [facility] M: [phone] O:[phone] Subjective Date of service: 01/24/19 Principal diagnosis: OOH cardiac arrest; Acute hypoxemic-hypercapnic Resp failure; PNA Interval history: Patient seen and examined. Remains intubated and unresponsive. No pressors. no fevers. Granddaughter at bedside. Objective - Exam Narrative Exam: General appearance: intubated on CPAP . Unresponsive Eyes: anicteric sclerae, moist conjunctivae; no lid-lag; PERRLA HENT: Atraumatic; oropharynx +ETT +OGT Neck: Trachea midline; supple, no thyromegaly or lymphadenopathy Lungs: scattered olman rhonchi CV: RRR Abdomen: Soft, non-tender; no masses or hepatosplenomegaly Extremities:olman edema Skin: Normal temperature, turgor and texture; possible contact dermatitis on chest Psych: Calm . Neuro: unresponsive. - Constitutional Vitals: Vital Signs Temp Pulse Resp BP Pulse Ox 98.3 F 98 H 32 H 172/95 100 01/24/19 08:00 01/24/19 10:01 01/24/19 10:00 01/24/19 10:01 01/24/19 10:00 Temperature -Last 24 Hours Temperature 98.3 F Temperature 98.3 F Temperature 98.9 F Temperature 98.9 F Temperature 99.1 F Temperature 98.0 F Temperature 98.6 F Temperature 97.8 F - Labs CBC & Chem 7: 01/24/19 Unknown 01/24/19 Unknown Labs: Abnormal lab results 01/23/19 01/23/19 01/23/19 Range/Units 11:31 17:49 Unknown RBC (3.65-5.03) M/mm3 Hgb (10.1-14.3) gm/dl Hct (30.3-42.9) % Sodium (137-145) mmol/L Chloride 95.4 L (98-107) mmol/L BUN 37 H (7-17) mg/dL Glucose 144 H (65-100) mg/dL POC Glucose 161 H 142 H (70-105) AST 88 H (5-40) units/L Total Protein 6.0 L (6.3-8.2) g/dL Albumin 2.9 L (3.9-5) g/dL 01/24/19 01/24/19 01/24/19 Range/Units 00:21 05:36 Unknown RBC 2.90 L (3.65-5.03) M/mm3 Hgb 8.3 L (10.1-14.3) gm/dl Hct 25.0 L (30.3-42.9) % Sodium (137-145) mmol/L Chloride (98-107) mmol/L BUN (7-17) mg/dL Glucose (65-100) mg/dL POC Glucose 163 H 147 H (70-105) AST (5-40) units/L Total Protein (6.3-8.2) g/dL Albumin (3.9-5) g/dL 01/24/19 Range/Units Unknown RBC (3.65-5.03) M/mm3 Hgb (10.1-14.3) gm/dl Hct (30.3-42.9) % Sodium 134 L (137-145) mmol/L Chloride 94.4 L (98-107) mmol/L BUN 35 H (7-17) mg/dL Glucose 151 H (65-100) mg/dL POC Glucose (70-105) AST (5-40) units/L Total Protein (6.3-8.2) g/dL Albumin (3.9-5) g/dL
[2019-01-24] MEDS ORDERED: COREG PO ONE (12:00)
[2019-01-24] MEDS: NORVASC PO SCH (12:58)
--- NOTE | 2019-01-24 14:29 | Progress Note ---
Subjective Date of service: 01/24/19 Principal diagnosis: OOH cardiac arrest; Acute hypoxemic-hypercapnic Resp failure; PNA Interval history: no essential change in condition still with deep coma Objective - Vital Sign Vital Signs - 12hr 01/24/19 01/24/19 01/24/19 02:31 03:00 03:15 Temperature Pulse Rate 82 79 81 Pulse Rate [ Anterior Left Throughout] Pulse Rate [ Anterior Right Throughout] Respiratory 17 17 Rate Respiratory Rate [Anterior Left Throughout ] Respiratory Rate [Anterior Right Throughout] Blood Pressure 132/71 129/77 129/77 O2 Sat by Pulse 100 100 100 Oximetry 01/24/19 01/24/19 01/24/19 03:31 04:00 04:31 Temperature 98.3 F Pulse Rate 83 82 86 Pulse Rate [ Anterior Left Throughout] Pulse Rate [ Anterior Right Throughout] Respiratory 26 H 25 H 17 Rate Respiratory Rate [Anterior Left Throughout ] Respiratory Rate [Anterior Right Throughout] Blood Pressure 129/77 127/72 129/77 O2 Sat by Pulse 100 100 100 Oximetry 01/24/19 01/24/19 01/24/19 05:00 06:00 07:00 Temperature Pulse Rate 86 84 79 Pulse Rate [ Anterior Left Throughout] Pulse Rate [ Anterior Right Throughout] Respiratory 22 14 16 Rate Respiratory Rate [Anterior Left Throughout ] Respiratory Rate [Anterior Right Throughout] Blood Pressure 144/82 137/73 141/69 O2 Sat by Pulse 100 99 100 Oximetry 01/24/19 01/24/19 01/24/19 07:09 08:00 08:01 Temperature 98.3 F Pulse Rate 93 H Pulse Rate [ 82 Anterior Left Throughout] Pulse Rate [ 89 Anterior Right Throughout] Respiratory 16 Rate Respiratory 21 Rate [Anterior Left Throughout ] Respiratory 22 Rate [Anterior Right Throughout] Blood Pressure 164/99 O2 Sat by Pulse 100 Oximetry 01/24/19 01/24/19 01/24/19 08:50 09:00 10:00 Temperature Pulse Rate 94 H 93 H 92 H Pulse Rate [ Anterior Left Throughout] Pulse Rate [ Anterior Right Throughout] Respiratory 20 33 H 32 H Rate Respiratory Rate [Anterior Left Throughout ] Respiratory Rate [Anterior Right Throughout] Blood Pressure 164/99 172/96 O2 Sat by Pulse 100 100 100 Oximetry 01/24/19 01/24/19 01/24/19 10:01 12:43 12:58 Temperature Pulse Rate 98 H 84 83 Pulse Rate [ Anterior Left Throughout] Pulse Rate [ Anterior Right Throughout] Respiratory 17 Rate Respiratory Rate [Anterior Left Throughout ] Respiratory Rate [Anterior Right Throughout] Blood Pressure 172/95 150/84 150/84 O2 Sat by Pulse 100 Oximetry - Laboratory Findings CBC and BMP: 01/24/19 Unknown 01/24/19 Unknown Abnormal Lab Findings: Abnormal Labs 01/15/19 01/15/19 01/15/19 07:50 07:50 07:50 WBC RBC Hgb Hct MCV 99 H RDW 16.7 H Plt Count 122 L Lymph % (Auto) Lymph # Seg Neutrophils % Seg Neuts % (Manual) Lymphocytes % (Manual) Seg Neutrophils # Seg Neutrophils # Man Lymphocytes # (Manual) PT 19.7 H INR 1.56 H POC ABG pH POC ABG pCO2 POC ABG pO2 Sodium Potassium Chloride Carbon Dioxide 11 L BUN Creatinine 1.4 H Glucose 268 H POC Glucose Calcium AST 57 H Total Creatine Kinase CK-MB (CK-2) Troponin T NT-Pro-B Natriuret Pep 5346 H Total Protein Albumin 3.6 L HDL Cholesterol 01/15/19 01/15/19 01/15/19 09:56 11:53 17:52 WBC RBC Hgb Hct MCV RDW Plt Count Lymph % (Auto) Lymph # Seg Neutrophils % Seg Neuts % (Manual) Lymphocytes % (Manual) Seg Neutrophils # Seg Neutrophils # Man Lymphocytes # (Manual) PT INR POC ABG pH 7.186 L POC ABG pCO2 46.4 H POC ABG pO2 Sodium Potassium Chloride Carbon Dioxide BUN Creatinine Glucose POC Glucose Calcium AST Total Creatine Kinase 683 H 1430 H CK-MB (CK-2) 9.5 H 13.5 H Troponin T 0.036 H D NT-Pro-B Natriuret Pep Total Protein Albumin HDL Cholesterol 65 H 01/15/19 01/15/19 01/16/19 18:31 21:46 02:14 WBC RBC Hgb Hct MCV RDW Plt Count Lymph % (Auto) Lymph # Seg Neutrophils % Seg Neuts % (Manual) Lymphocytes % (Manual) Seg Neutrophils # Seg Neutrophils # Man Lymphocytes # (Manual) PT INR POC ABG pH POC ABG pCO2 31.8 L POC ABG pO2 167 H Sodium Potassium Chloride Carbon Dioxide BUN Creatinine Glucose POC Glucose 134 H 136 H Calcium AST Total Creatine Kinase CK-MB (CK-2) Troponin T NT-Pro-B Natriuret Pep Total Protein Albumin HDL Cholesterol 01/16/19 01/16/19 01/16/19 04:16 04:16 05:05 WBC 11.4 H RBC Hgb Hct MCV RDW Plt Count 105 L Lymph % (Auto) Lymph # Seg Neutrophils % Seg Neuts % (Manual) 74.0 H Lymphocytes % (Manual) 2.0 L Seg Neutrophils # Seg Neutrophils # Man 8.4 H Lymphocytes # (Manual) 0.2 L PT INR POC ABG pH 7.458 H POC ABG pCO2 31.4 L POC ABG pO2 135 H Sodium Potassium 3.3 L Chloride Carbon Dioxide 21 L D BUN 24 H Creatinine 1.5 H Glucose 141 H POC Glucose Calcium 8.1 L AST 71 H Total Creatine Kinase CK-MB (CK-2) Troponin T NT-Pro-B Natriuret Pep Total Protein 6.2 L Albumin 3.5 L HDL Cholesterol 01/16/19 01/16/19 01/16/19 05:24 13:42 21:08 WBC RBC Hgb Hct MCV RDW Plt Count Lymph % (Auto) Lymph # Seg Neutrophils % Seg Neuts % (Manual) Lymphocytes % (Manual) Seg Neutrophils # Seg Neutrophils # Man Lymphocytes # (Manual) PT INR POC ABG pH POC ABG pCO2 POC ABG pO2 Sodium Potassium Chloride Carbon Dioxide BUN Creatinine Glucose POC Glucose 137 H 129 H 122 H Calcium AST Total Creatine Kinase CK-MB (CK-2) Troponin T NT-Pro-B Natriuret Pep Total Protein Albumin HDL Cholesterol 01/17/19 01/17/19 01/17/19 02:18 04:23 05:13 WBC RBC Hgb Hct MCV RDW Plt Count Lymph % (Auto) Lymph # Seg Neutrophils % Seg Neuts % (Manual) Lymphocytes % (Manual) Seg Neutrophils # Seg Neutrophils # Man Lymphocytes # (Manual) PT INR POC ABG pH 7.479 H POC ABG pCO2 30.0 L POC ABG pO2 141 H Sodium Potassium Chloride Carbon Dioxide BUN Creatinine Glucose POC Glucose 139 H 128 H Calcium AST Total Creatine Kinase CK-MB (CK-2) Troponin T NT-Pro-B Natriuret Pep Total Protein Albumin HDL Cholesterol 01/17/19 01/17/19 01/17/19 10:22 15:59 18:45 WBC RBC Hgb Hct MCV RDW Plt Count Lymph % (Auto) Lymph # Seg Neutrophils % Seg Neuts % (Manual) Lymphocytes % (Manual) Seg Neutrophils # Seg Neutrophils # Man Lymphocytes # (Manual) PT INR POC ABG pH POC ABG pCO2 POC ABG pO2 Sodium Potassium Chloride Carbon Dioxide BUN Creatinine Glucose POC Glucose 133 H 121 H 106 H Calcium AST Total Creatine Kinase CK-MB (CK-2) Troponin T NT-Pro-B Natriuret Pep Total Protein Albumin HDL Cholesterol 01/17/19 01/18/19 01/18/19 23:35 04:21 04:21 WBC RBC 3.27 L Hgb 9.6 L Hct 29.9 L MCV RDW Plt Count 79 L Lymph % (Auto) 6.0 L Lymph # 0.5 L Seg Neutrophils % 89.2 H Seg Neuts % (Manual) Lymphocytes % (Manual) Seg Neutrophils # 8.1 H Seg Neutrophils # Man Lymphocytes # (Manual) PT INR POC ABG pH POC ABG pCO2 POC ABG pO2 Sodium Potassium Chloride Carbon Dioxide BUN 28 H Creatinine 1.3 H Glucose 129 H POC Glucose 121 H Calcium AST 120 H Total Creatine Kinase CK-MB (CK-2) Troponin T NT-Pro-B Natriuret Pep Total Protein 5.1 L Albumin 3.0 L HDL Cholesterol 01/18/19 01/18/19 01/18/19 04:21 04:36 05:43 WBC RBC Hgb Hct MCV RDW Plt Count Lymph % (Auto) Lymph # Seg Neutrophils % Seg Neuts % (Manual) Lymphocytes % (Manual) Seg Neutrophils # Seg Neutrophils # Man Lymphocytes # (Manual) PT INR POC ABG pH 7.485 H POC ABG pCO2 31.0 L POC ABG pO2 126 H Sodium Potassium Chloride Carbon Dioxide BUN 28 H Creatinine 1.3 H Glucose 128 H POC Glucose 142 H Calcium AST Total Creatine Kinase CK-MB (CK-2) Troponin T NT-Pro-B Natriuret Pep Total Protein Albumin HDL Cholesterol 01/18/19 01/18/19 01/18/19 12:04 18:16 20:47 WBC RBC Hgb Hct MCV RDW Plt Count Lymph % (Auto) Lymph # Seg Neutrophils % Seg Neuts % (Manual) Lymphocytes % (Manual) Seg Neutrophils # Seg Neutrophils # Man Lymphocytes # (Manual) PT INR POC ABG pH 7.489 H POC ABG pCO2 32.8 L POC ABG pO2 Sodium Potassium Chloride Carbon Dioxide BUN Creatinine Glucose POC Glucose 113 H 119 H Calcium AST Total Creatine Kinase CK-MB (CK-2) Troponin T NT-Pro-B Natriuret Pep Total Protein Albumin HDL Cholesterol 01/19/19 01/19/19 01/19/19 00:40 05:35 11:39 WBC RBC Hgb Hct MCV RDW Plt Count Lymph % (Auto) Lymph # Seg Neutrophils % Seg Neuts % (Manual) Lymphocytes % (Manual) Seg Neutrophils # Seg Neutrophils # Man Lymphocytes # (Manual) PT INR POC ABG pH POC ABG pCO2 POC ABG pO2 Sodium Potassium Chloride Carbon Dioxide BUN Creatinine Glucose POC Glucose 137 H 157 H 155 H Calcium AST Total Creatine Kinase CK-MB (CK-2) Troponin T NT-Pro-B Natriuret Pep Total Protein Albumin HDL Cholesterol 01/19/19 01/19/19 01/19/19 18:24 21:08 23:33 WBC RBC Hgb Hct MCV RDW Plt Count Lymph % (Auto) Lymph # Seg Neutrophils % Seg Neuts % (Manual) Lymphocytes % (Manual) Seg Neutrophils # Seg Neutrophils # Man Lymphocytes # (Manual) PT INR POC ABG pH 7.508 H POC ABG pCO2 34.2 L POC ABG pO2 Sodium Potassium Chloride Carbon Dioxide BUN Creatinine Glucose POC Glucose 145 H 156 H Calcium AST Total Creatine Kinase CK-MB (CK-2) Troponin T NT-Pro-B Natriuret Pep Total Protein Albumin HDL Cholesterol 01/20/19 01/20/19 01/20/19 05:12 11:42 17:36 WBC RBC Hgb Hct MCV RDW Plt Count Lymph % (Auto) Lymph # Seg Neutrophils % Seg Neuts % (Manual) Lymphocytes % (Manual) Seg Neutrophils # Seg Neutrophils # Man Lymphocytes # (Manual) PT INR POC ABG pH POC ABG pCO2 POC ABG pO2 Sodium Potassium Chloride Carbon Dioxide BUN Creatinine Glucose POC Glucose 152 H 159 H 169 H Calcium AST Total Creatine Kinase CK-MB (CK-2) Troponin T NT-Pro-B Natriuret Pep Total Protein Albumin HDL Cholesterol 01/20/19 01/21/19 01/21/19 23:29 05:30 05:34 WBC RBC Hgb Hct MCV RDW Plt Count Lymph % (Auto) Lymph # Seg Neutrophils % Seg Neuts % (Manual) Lymphocytes % (Manual) Seg Neutrophils # Seg Neutrophils # Man Lymphocytes # (Manual) PT INR POC ABG pH 7.616 H POC ABG pCO2 POC ABG pO2 71 L Sodium Potassium Chloride Carbon Dioxide BUN Creatinine Glucose POC Glucose 139 H 138 H Calcium AST Total Creatine Kinase CK-MB (CK-2) Troponin T NT-Pro-B Natriuret Pep Total Protein Albumin HDL Cholesterol 01/21/19 01/21/19 01/22/19 12:41 18:47 00:07 WBC RBC Hgb Hct MCV RDW Plt Count Lymph % (Auto) Lymph # Seg Neutrophils % Seg Neuts % (Manual) Lymphocytes % (Manual) Seg Neutrophils # Seg Neutrophils # Man Lymphocytes # (Manual) PT INR POC ABG pH POC ABG pCO2 POC ABG pO2 Sodium Potassium Chloride Carbon Dioxide BUN Creatinine Glucose POC Glucose 154 H 174 H 163 H Calcium AST Total Creatine Kinase CK-MB (CK-2) Troponin T NT-Pro-B Natriuret Pep Total Protein Albumin HDL Cholesterol 01/22/19 01/22/19 01/22/19 04:35 05:46 12:18 WBC RBC Hgb Hct MCV RDW Plt Count Lymph % (Auto) Lymph # Seg Neutrophils % Seg Neuts % (Manual) Lymphocytes % (Manual) Seg Neutrophils # Seg Neutrophils # Man Lymphocytes # (Manual) PT INR POC ABG pH 7.522 H POC ABG pCO2 POC ABG pO2 Sodium Potassium Chloride Carbon Dioxide BUN Creatinine Glucose POC Glucose 159 H 137 H Calcium AST Total Creatine Kinase CK-MB (CK-2) Troponin T NT-Pro-B Natriuret Pep Total Protein Albumin HDL Cholesterol 01/22/19 01/22/19 01/22/19 15:00 15:00 18:13 WBC RBC 2.92 L Hgb 8.4 L Hct 25.6 L MCV RDW Plt Count Lymph % (Auto) Lymph # Seg Neutrophils % Seg Neuts % (Manual) Lymphocytes % (Manual) Seg Neutrophils # Seg Neutrophils # Man Lymphocytes # (Manual) PT INR POC ABG pH POC ABG pCO2 POC ABG pO2 Sodium Potassium Chloride 97.0 L Carbon Dioxide BUN 37 H Creatinine Glucose 162 H POC Glucose 159 H Calcium 8.2 L AST Total Creatine Kinase CK-MB (CK-2) Troponin T NT-Pro-B Natriuret Pep Total Protein Albumin HDL Cholesterol 01/22/19 01/23/19 01/23/19 22:45 00:01 05:10 WBC RBC 2.92 L Hgb 8.5 L Hct 25.4 L MCV RDW Plt Count Lymph % (Auto) 6.3 L Lymph # 0.6 L Seg Neutrophils % 86.3 H Seg Neuts % (Manual) Lymphocytes % (Manual) Seg Neutrophils # 8.9 H Seg Neutrophils # Man Lymphocytes # (Manual) PT INR POC ABG pH POC ABG pCO2 POC ABG pO2 Sodium Potassium Chloride Carbon Dioxide BUN Creatinine Glucose POC Glucose 178 H 155 H Calcium AST Total Creatine Kinase CK-MB (CK-2) Troponin T NT-Pro-B Natriuret Pep Total Protein Albumin HDL Cholesterol 01/23/19 01/23/19 01/23/19 11:31 17:49 Unknown WBC RBC Hgb Hct MCV RDW Plt Count Lymph % (Auto) Lymph # Seg Neutrophils % Seg Neuts % (Manual) Lymphocytes % (Manual) Seg Neutrophils # Seg Neutrophils # Man Lymphocytes # (Manual) PT INR POC ABG pH POC ABG pCO2 POC ABG pO2 Sodium Potassium Chloride 95.4 L Carbon Dioxide BUN 37 H Creatinine Glucose 144 H POC Glucose 161 H 142 H Calcium AST 88 H Total Creatine Kinase CK-MB (CK-2) Troponin T NT-Pro-B Natriuret Pep Total Protein 6.0 L Albumin 2.9 L HDL Cholesterol 01/24/19 01/24/19 01/24/19 00:21 05:36 12:35 WBC RBC Hgb Hct MCV RDW Plt Count Lymph % (Auto) Lymph # Seg Neutrophils % Seg Neuts % (Manual) Lymphocytes % (Manual) Seg Neutrophils # Seg Neutrophils # Man Lymphocytes # (Manual) PT INR POC ABG pH POC ABG pCO2 POC ABG pO2 Sodium Potassium Chloride Carbon Dioxide BUN Creatinine Glucose POC Glucose 163 H 147 H 263 H Calcium AST Total Creatine Kinase CK-MB (CK-2) Troponin T NT-Pro-B Natriuret Pep Total Protein Albumin HDL Cholesterol 01/24/19 01/24/19 Unknown Unknown WBC RBC 2.90 L Hgb 8.3 L Hct 25.0 L MCV RDW Plt Count Lymph % (Auto) Lymph # Seg Neutrophils % Seg Neuts % (Manual) Lymphocytes % (Manual) Seg Neutrophils # Seg Neutrophils # Man Lymphocytes # (Manual) PT INR POC ABG pH POC ABG pCO2 POC ABG pO2 Sodium 134 L Potassium Chloride 94.4 L Carbon Dioxide BUN 35 H Creatinine Glucose 151 H POC Glucose Calcium AST Total Creatine Kinase CK-MB (CK-2) Troponin T NT-Pro-B Natriuret Pep Total Protein Albumin HDL Cholesterol
--- NOTE | 2019-01-24 14:38 | Anesthesia Consultation ---
Anesthesia Consult and Med Hx Date of service: 01/25/19 - Airway Anesthetic Teeth Evaluation: Edentulous ROM Head & Neck: Adequate Mental/Hyoid Distance: Adequate Mallampati Class: Class III Intubation Access Assessment: Probably Good - Pulmonary Exam CTA: Yes - Cardiac Exam Cardiac Exam: No Murmur - Pre-Operative Health Status ASA Pre-Surgery Classification: ASA4 Proposed Anesthetic Plan: MAC - Pulmonary Hx Smoking: No Hx Asthma: No Hx Respiratory Symptoms: Yes (witnessed cardiopulmonary arrest after seizure at home) COPD: Yes Home Oxygen Therapy: No Hx Pneumonia: Yes - Cardiovascular System Hx Hypertension: Yes Hx Heart Attack/AMI: Yes Hx Pacemaker: No Hx Internal Defibrillator: No - Central Nervous System Hx Seizures: Yes - Endocrine Hx Renal Disease: No Hx Liver Disease: No Hx Insulin Dependent Diabetes: No Hx Non-Insulin Dependent Diabetes: No Hx Thyroid Disease: No - Hematic Hx Anemia: Yes - Other Systems Hx Alcohol Use: No Hx Substance Use: No - Additional Comments Anesthesia Medical History Comments: Patient intubated; h/o CAD with stents; EF 35-40%; no GAC, no FHAC
[2019-01-24] MEDS: KENALOG TP SCH (15:35)
[2019-01-24 15:58] LABS: Heparin-Induced Platelet Antib Negative (Negative); Unfractionated Heparin Negative (Negative)
[2019-01-25] MEDS: HumaLOG SUB-Q SCH ×3 (00:46→12:10)
[2019-01-25] MEDS: KENALOG TP SCH ×3 (00:52→21:50)
[2019-01-25] MEDS: DUONEB *Not for PRN Use IH SCH ×4 (01:31→19:28)
[2019-01-25 05:20] LABS: Hematocrit 25.2 % (30.3-42.9); Hemoglobin 8.4 gm/dl (10.1-14.3); Mean Corpuscular HGB Conc 33 % (30-34); Mean Corpuscular Volume 87 fl (79-97); Platelet Count 293 K/mm3 (140-440); Red Cell Distribution Width 14.3 % (13.2-15.2)
[2019-01-25 05:36] LABS: BUN/Creatinine Ratio 50; Blood Urea Nitrogen 35 mg/dL (7-17); Calcium 8.5 mg/dL (8.4-10.2); Hemolysis Index 2
[2019-01-25 05:55] LABS: INR 1.47 (0.87-1.13)
[2019-01-25] MEDS: SODIUM CHLORIDE FLUSH SYRINGE 10 ML IV SCH ×3 (06:08→21:51)
[2019-01-25] MEDS: LASIX PO SCH (06:14)
[2019-01-25] MEDS: FLAGYL 500 MG/100 ML 500 MG/100 ML BAG IV SCH ×3 (06:14→21:36)
--- NOTE | 2019-01-25 08:33 | Progress Note ---
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 supportive care Neurology following Sepsis due to pneumonia On iv Abx. ID Physician following Pneumonia CARMELINA due to ATN Improving Seizure activity COPD/Emphesema Not on home Oxygen History of stroke in 1982 Full code status Prognosis guarded History Interval history: Still intubated Still unresponsive For Trach and PEG Hospitalist Physical - Physical exam Narrative exam: Gen: Not in acute distress,intubated HEENT: Normocephalic, atraumatic Neck: supple, no JVD Heart: S1 and S2 reg, no murmurs, rubs or gallop Lungs: Bilateral crackles, no wheeze Abd: soft, non tender, non distended, normal BS Ext: No edema, no clubbing, no cyanosis, Neuro: Intubated, Not following commands - Constitutional Vitals: Temp Pulse Resp BP Pulse Ox 98.7 F 94 H 36 H 134/73 100 01/25/19 07:32 01/25/19 08:08 01/25/19 08:08 01/25/19 08:08 01/25/19 08:08 General appearance: Present: no acute distress, other (intubated) Results - Labs CBC & Chem 7: 01/25/19 05:15 01/25/19 05:15 Labs: Laboratory Last Values WBC 9.5 K/mm3 (4.5-11.0) 01/25/19 05:15 RBC 2.90 M/mm3 (3.65-5.03) L 01/25/19 05:15 Hgb 8.4 gm/dl (10.1-14.3) L 01/25/19 05:15 Hct 25.2 % (30.3-42.9) L 01/25/19 05:15 MCV 87 fl (79-97) 01/25/19 05:15 MCH 29 pg (28-32) 01/25/19 05:15 MCHC 33 % (30-34) 01/25/19 05:15 RDW 14.3 % (13.2-15.2) 01/25/19 05:15 Plt Count 293 K/mm3 (140-440) 01/25/19 05:15 Lymph % (Auto) 6.3 % (13.4-35.0) L 01/23/19 00:01 Leslie % (Auto) 6.6 % (0.0-7.3) 01/23/19 00:01 Eos % (Auto) 0.5 % (0.0-4.3) 01/23/19 00:01 Baso % (Auto) 0.3 % (0.0-1.8) 01/23/19 00:01 Lymph # 0.6 K/mm3 (1.2-5.4) L 01/23/19 00:01 Leslie # 0.7 K/mm3 (0.0-0.8) 01/23/19 00:01 Eos # 0.1 K/mm3 (0.0-0.4) 01/23/19 00:01 Baso # 0.0 K/mm3 (0.0-0.1) 01/23/19 00:01 Add Manual Diff Complete 01/16/19 04:16 Total Counted 100 01/16/19 04:16 Seg Neutrophils % 86.3 % (40.0-70.0) H 01/23/19 00:01 Seg Neuts % (Manual) 74.0 % (40.0-70.0) H 01/16/19 04:16 22.0 % 01/16/19 04:16 2.0 % (13.4-35.0) L 01/16/19 04:16 Reactive Lymphs % (Man) 0 % 01/16/19 04:16 2.0 % (0.0-7.3) 01/16/19 04:16 0 % (0.0-4.3) 01/16/19 04:16 0 % (0.0-1.8) 01/16/19 04:16 0 % 01/16/19 04:16 0 % 01/16/19 04:16 0 % 01/16/19 04:16 0 % 01/16/19 04:16 Nucleated RBC % Not Reportable 01/16/19 04:16 Seg Neutrophils # 8.9 K/mm3 (1.8-7.7) H 01/23/19 00:01 Seg Neutrophils # Man 8.4 K/mm3 (1.8-7.7) H 01/16/19 04:16 Band Neutrophils # 2.5 K/mm3 01/16/19 04:16 0.2 K/mm3 (1.2-5.4) L 01/16/19 04:16 Abs React Lymphs (Man) 0.0 K/mm3 01/16/19 04:16 0.2 K/mm3 (0.0-0.8) 01/16/19 04:16 0.0 K/mm3 (0.0-0.4) 01/16/19 04:16 0.0 K/mm3 (0.0-0.1) 01/16/19 04:16 0.0 K/mm3 01/16/19 04:16 0.0 K/mm3 01/16/19 04:16 0.0 K/mm3 01/16/19 04:16 Blast Cells # 0.0 K/mm3 01/16/19 04:16 WBC Morphology Not Reportable 01/16/19 04:16 Hypersegmented Neuts Not Reportable 01/16/19 04:16 Hyposegmented Neuts Not Reportable 01/16/19 04:16 Hypogranular Neuts Not Reportable 01/16/19 04:16 Not Reportable 01/16/19 04:16 Not Reportable 01/16/19 04:16 Not Reportable 01/16/19 04:16 Not Reportable 01/16/19 04:16 Not Reportable 01/16/19 04:16 Not Reportable 01/16/19 04:16 Consistent w auto 01/16/19 04:16 Not Reportable 01/16/19 04:16 Plt Clumps, EDTA Not Reportable 01/16/19 04:16 Not Reportable 01/16/19 04:16 Not Reportable 01/16/19 04:16 Not Reportable 01/16/19 04:16 Plt Morphology Comment Not Reportable 01/16/19 04:16 RBC Morphology Normal 01/16/19 04:16 Dimorphic RBCs Not Reportable 01/16/19 04:16 Not Reportable 01/16/19 04:16 Not Reportable 01/16/19 04:16 Not Reportable 01/16/19 04:16 Not Reportable 01/16/19 04:16 Not Reportable 01/16/19 04:16 Not Reportable 01/16/19 04:16 Not Reportable 01/16/19 04:16 Not Reportable 01/16/19 04:16 Not Reportable 01/16/19 04:16 Not Reportable 01/16/19 04:16 Not Reportable 01/16/19 04:16 Not Reportable 01/16/19 04:16 Not Reportable 01/16/19 04:16 Not Reportable 01/16/19 04:16 Not Reportable 01/16/19 04:16 Not Reportable 01/16/19 04:16 Not Reportable 01/16/19 04:16 Not Reportable 01/16/19 04:16 Not Reportable 01/16/19 04:16 Acanthocytes (Spur) Not Reportable 01/16/19 04:16 Rouleaux Not Reportable 01/16/19 04:16 Not Reportable 01/16/19 04:16 Not Reportable 01/16/19 04:16 Not Reportable 01/16/19 04:16 Not Reportable 01/16/19 04:16 Hem Pathologist Commnt No 01/16/19 04:16 PT 18.8 Sec. (12.2-14.9) H 01/25/19 05:15 INR 1.47 (0.87-1.13) H 01/25/19 05:15 APTT 36.0 Sec. (24.2-36.6) 01/15/19 07:50 Heparin Anti-Xa, Unfract Negative (Negative) 01/19/19 Unknown POC ABG pH 7.522 (7.35-7.45) H 01/22/19 04:35 POC ABG pCO2 36.3 (35-45) 01/22/19 04:35 POC ABG pO2 94 (80-105) 01/22/19 04:35 POC ABG HCO3 29.8 (22-26 mml/L) 01/22/19 04:35 POC ABG Total CO2 31 (23-27mmol/L) 01/22/19 04:35 POC ABG O2 Sat 98 01/22/19 04:35 POC ABG Base Excess 7 ((-2) - (+3)mmol/L) 01/22/19 04:35 25 % 01/22/19 04:35 Sodium 135 mmol/L (137-145) L 01/25/19 05:15 Potassium 4.3 mmol/L (3.6-5.0) 01/25/19 05:15 Chloride 94.0 mmol/L (98-107) L 01/25/19 05:15 Carbon Dioxide 29 mmol/L (22-30) 01/25/19 05:15 16 mmol/L 01/25/19 05:15 BUN 35 mg/dL (7-17) H 01/25/19 05:15 0.7 mg/dL (0.7-1.2) 01/25/19 05:15 Estimated GFR > 60 ml/min 01/25/19 05:15 50 % 01/25/19 05:15 Glucose 128 mg/dL (65-100) H 01/25/19 05:15 POC Glucose 126 (70-105) H 01/25/19 05:35 6.0 % (4-6) 01/15/19 11:53 Calcium 8.5 mg/dL (8.4-10.2) 01/25/19 05:15 0.30 mg/dL (0.1-1.2) 01/23/19 Unknown AST 88 units/L (5-40) H 01/23/19 Unknown ALT 31 units/L (7-56) 01/23/19 Unknown 48 units/L (35-129) 01/23/19 Unknown 1430 units/L (30-135) H 01/15/19 17:52 CK-MB (CK-2) 13.5 ng/mL (0.0-4.0) H 01/15/19 17:52 CK-MB (CK-2) Rel Index 0.9 (0-4) 01/15/19 17:52 0.036 ng/mL (0.00-0.029) H D 01/15/19 17:52 NT-Pro-B Natriuret Pep 5346 pg/mL (0-900) H 01/15/19 07:50 6.0 g/dL (6.3-8.2) L 01/23/19 Unknown 2.9 g/dL (3.9-5) L 01/23/19 Unknown 0.9 % 01/23/19 Unknown Triglycerides 75 mg/dL (2-149) 01/15/19 17:52 Cholesterol 149 mg/dL (50-199) 01/15/19 17:52 84 mg/dL (50-130) 01/15/19 17:52 65 mg/dL (40-59) H 01/15/19 17:52 2.29 % 01/15/19 17:52 See scanned report 01/19/19 Unknown Yellow (Yellow) 01/21/19 16:10 Clear (Clear) 01/21/19 16:10 6.0 (5.0-7.0) 01/21/19 16:10 Ur Specific [place] 1.015 (1.003-1.030) 01/21/19 16:10 <15 mg/dl mg/dL (Negative) 01/21/19 16:10 Neg mg/dL (Negative) 01/21/19 16:10 Neg mg/dL (Negative) 01/21/19 16:10 Neg (Negative) 01/21/19 16:10 Neg (Negative) 01/21/19 16:10 Neg (Negative) 01/21/19 16:10 2.0 mg/dL (<2.0) 01/21/19 16:10 Ur Leukocyte Esterase Neg (Negative) 01/21/19 16:10 1.0 /HPF (0.0-6.0) 01/21/19 16:10 5.0 /HPF (0.0-6.0) 01/21/19 16:10 Presumptive negative 01/15/19 16:30 Presumptive negative 01/15/19 16:30 Ur Barbiturates Screen Presumptive negative 01/15/19 16:30 Ur Phencyclidine Scrn Presumptive negative 01/15/19 16:30 Ur Amphetamines Screen Presumptive negative 01/15/19 16:30 U Benzodiazepines Scrn Presumptive negative 01/15/19 16:30 Presumptive negative 01/15/19 16:30 U Marijuana (THC) Screen Presumptive negative 01/15/19 16:30 Disclamer 01/15/19 16:30 Heparin-induced Plt Ab Negative (Negative) 01/19/19 Unknown UF Heparin High Dose 3 % Release 01/19/19 Unknown JOSEFA UFH Low Dose 0.1 4 % Release 01/19/19 Unknown JOSEFA UFH Low Dose 0.5 5 % Release 01/19/19 Unknown C. difficile Tox (PCR) Negative (Negative) 01/16/19 00:00 Active Medications - Current Medications Current Medications: Generic Name Dose Route Start Last Admin Trade Name Freq PRN Reason Stop Dose Admin Acetaminophen 650 mg 01/16/19 09:37 01/20/19 00:24 Tylenol PO 650 mg Q4H PRN Administration Fever >101 Albuterol/Ipratropium 1 ampul 01/15/19 14:00 01/25/19 07:33 Duoneb *Not For Prn Use* IH 1 ampul Q6HRT DEON Administration Amlodipine Besylate 10 mg 01/24/19 12:00 01/24/19 12:58 Norvasc PO 10 mg DAILY DEON Administration Lipase/Protease/Amylase 1 each 01/15/19 14:[address] 10,500 Unit FEEDTUBE PRN PRN For Clogged Feeding Tube Aspirin 81 mg 01/16/19 10:00 01/24/19 10:01 Baby Aspirin PO 81 mg QDAY DEON Administration Atorvastatin Calcium 20 mg 01/16/19 22:00 01/24/19 22:40 Lipitor PO 20 mg QHS DEON Administration Carvedilol 12.5 mg 01/24/19 22:00 01/24/19 22:40 Coreg PO 12.5 mg BID DEON Administration Famotidine 20 mg 01/22/19 10:00 01/24/19 10:01 Pepcid PO 20 mg DAILY DEON Administration Fondaparinux 2.5 mg 01/20/19 10:00 01/24/19 10:02 Arixtra SUB-Q 2.5 mg QDAY DEON Administration Furosemide 20 mg 01/19/19 18:00 01/25/19 06:14 Lasix PO 20 mg 0600,1800 DEON Administration Ceftriaxone Sodium 2 gm in 100 mls @ 200 mls/hr 01/20/19 15:00 01/24/19 10:02 Rocephin/Ns 2 Gm/100 Ml IV 200 mls/hr Q24HR DEON Administration Protocol Metronidazole 500 mg in 100 mls @ 100 mls/hr 01/20/19 16:00 01/25/19 06:14 Flagyl 500 Mg/100 Ml IV 100 mls/hr Q8HR DEON Administration Protocol Insulin Human Lispro 0 unit 01/22/19 14:00 01/25/19 06:10 Humalog SUB-Q Not Given Q6HR [facility] Protocol Levetiracetam 750 mg 01/18/19 10:00 01/24/19 22:40 Keppra PO 750 mg BID DEON Administration Modafinil 100 mg 01/20/19 10:00 01/24/19 10:01 Provigil PO 100 mg QAM DEON Administration Simple Syrup 15 ml 01/15/19 14:37 Simple Syrup FEEDTUBE PRN PRN Hypoglycemia Simple Syrup 30 ml 01/15/19 14:37 Simple Syrup FEEDTUBE PRN PRN Hypoglycemia Sodium Bicarbonate 325 mg 01/15/19 14:37 Sodium Bicarbonate FEEDTUBE PRN PRN For Clogged Feeding Tube Sodium Chloride 10 ml 01/15/19 22:00 01/25/19 06:08 Sodium Chloride Flush Syringe 10 Ml IV Not Given BID DEON Sodium Chloride 10 ml 01/15/19 10:34 Sodium Chloride Flush Syringe 10 Ml IV PRN PRN LINE FLUSH Triamcinolone Acetonide 1 applic 01/24/19 14:00 01/25/19 00:52 Kenalog TP Not Given BID DEON Nutrition/Malnutrition Assess - Dietary Evaluation Nutrition/Malnutrition Findings: Nutrition Notes Start: 01/15/19 14:28 Freq: Status: Active Protocol: Document 01/18/19 10:28 EB (Rec: 01/18/19 10:30 EB [id number]) Co-Sign 01/18/19 10:28 LP Nutrition Notes Initial or Follow up Reassessment Other Pertinent Diagnosis s/p cardiorespiratory arrest ( at home) Current Diet Glucerna 1.2 at 50 mL/hr Labs/Tests Reviewed Pertinent Medications Dopamine gtt Height 5 ft 4 in Weight 49.3 kg Amo Body Weight (kg) 54.54 BMI 18.6 Subjective/Other Information TF running at goal rate at time of visit and RN states no residuals. Percent of energy/protein needs met: 97%/100% Burn Absent Trauma Absent #1 Nutrition Diagnosis Inadequate oral intake Diagnosis Progress(for reassessment Continues documentation) Is patient on ventilator? Yes Is Patient Ambulatory and/or Out of Bed No REE-([place]-confined to bed) 1174.212 Kcal/Kg value to use for calculation 30 Approximate Energy Requirements Using 1479 kcal/Kg Calculation Used for Recommendations Kcal/kg Additional Notes Pro needs 1.2-2g/k-100g/ day Fluid needs 1ml/kcal Nutrition Intervention Nutrition Support: Glucerna 1.2 at 50ml/hr with 80ml water flush q4h. Kcal 1,440 Protein (gm) 72 Carbohydrates (gm) 137 Fluid (mL) 966 Fiber (gm) 19 Goal #1 TF tolerance Goal #2 TF to continue to meet 100% energy and pro needs Goal #3 Wt maintenance and/or gain Anticipated Discharge Needs: Unable to identify at this time Follow-Up By: 01/25/19 Additional Comments F/U: TF tolerance
--- NOTE | 2019-01-25 09:09 | Progress Note ---
Assessment and Plan s/p Cardiopulmonary arrest, out of hospital, PEA with ROSC Acute hypoxic-hypercapnic respiratory failure on MVS Acute encephalopathy, metabolic Acute metabolic acidosis Acute renal injury Seizure activity Right lower lobe infiltrate, probably aspiration Pyrexia with leukocytosis Pulmonary HTN RVSP 60 Systolic heart failure EF 35-40% Thrombocytopenia Pyrexia -For Tracheostomy and gastrostomy tube placement today -Continue full MVS -Wean supplemental oxygen to keep O2 sats 88-90% -Lung protective strategies -Oxygen restrictive strategies -PRN ABGs/CXR -VAP bundle addressed -Monitor renal indices closely -Avoid nephrotoxic agents, adjust all medications for CrCL -Strict intake and output monitoring -Daily SAT & SBT -Sedation target for RASS 0 to -1 -Stress ulcer prophylaxis -VTE prophylaxis, -Tube feedings -Aspiration precautions -Accuchecks with glycemic control. Target glucose of 140-180 mg/dL -Bronchodilators with pulmonary hygiene per RT -Maintenance of sleep -wake cycle -Mobility as tolerated by hemodynamics -Influenza and pneumonia vaccination per protocol ..care plan discussed at length with RN/RT at the bedside PROGNOSIS:poor CONDITION: CRITICAL CODE STATUS: FULL CODE The high probability of a clinically significant, sudden or life-threatening deterioration of the [respiratory, neurology, renal] system(s) required my full and direct attention, intervention and personal management. The aggregate critical care time was [35] minutes without overlap. Time includes spent on; [x] Data Review and interpretation [x] Patient assessment and monitoring of vital signs [x] Documentation [x] Medication orders and management Subjective Date of service: 01/25/19 Principal diagnosis: OOH cardiac arrest; Acute hypoxemic-hypercapnic Resp failure; PNA Interval history: Patient is seen today for: OOH cardiopulmonary arrest with ROSC; Acute hypoxemic-hypercapnic respiratory failure on MVS; acute encephalopathy; aspiration pneumonia; Seen and examined at bedside; 24-hour events reviewed; nursing and respiratory care staff consulted; no adverse overnight events reported to me; no fevers, no vomiting, diarrhea is improving Continues to tolerate PSV trials, remains unresponsive Objective Vital Signs - 12hr 01/24/19 01/24/19 01/24/19 22:00 22:09 22:40 Temperature Pulse Rate 84 85 87 Pulse Rate [ Anterior Left Throughout] Pulse Rate [ Anterior Right Throughout] Pulse Rate [ From Monitor] Respiratory 14 18 Rate Respiratory Rate [Anterior Left Throughout ] Respiratory Rate [Anterior Right Throughout] Blood Pressure 127/68 127/68 119/64 O2 Sat by Pulse Oximetry 01/24/19 01/24/19 01/25/19 23:00 23:27 00:00 Temperature 98.5 F Pulse Rate 84 87 86 Pulse Rate [ Anterior Left Throughout] Pulse Rate [ Anterior Right Throughout] Pulse Rate [ 90 From Monitor] Respiratory 15 13 Rate Respiratory Rate [Anterior Left Throughout ] Respiratory Rate [Anterior Right Throughout] Blood Pressure 116/62 116/62 116/63 O2 Sat by Pulse 100 100 92 Oximetry 01/25/19 01/25/19 01/25/19 01:00 01:32 01:42 Temperature Pulse Rate 87 Pulse Rate [ 94 H 84 Anterior Left Throughout] Pulse Rate [ 84 Anterior Right Throughout] Pulse Rate [ From Monitor] Respiratory 19 Rate Respiratory 18 12 Rate [Anterior Left Throughout ] Respiratory 12 Rate [Anterior Right Throughout] Blood Pressure 121/64 O2 Sat by Pulse Oximetry 01/25/19 01/25/19 01/25/19 02:00 03:00 03:26 Temperature Pulse Rate 88 90 92 H Pulse Rate [ Anterior Left Throughout] Pulse Rate [ Anterior Right Throughout] Pulse Rate [ From Monitor] Respiratory 22 23 Rate Respiratory Rate [Anterior Left Throughout ] Respiratory Rate [Anterior Right Throughout] Blood Pressure 113/63 114/68 114/68 O2 Sat by Pulse 36 L 75 L 100 Oximetry 01/25/19 01/25/19 01/25/19 04:00 05:01 06:00 Temperature 98.1 F Pulse Rate 88 88 92 H Pulse Rate [ Anterior Left Throughout] Pulse Rate [ Anterior Right Throughout] Pulse Rate [ 81 From Monitor] Respiratory 24 23 14 Rate Respiratory Rate [Anterior Left Throughout ] Respiratory Rate [Anterior Right Throughout] Blood Pressure 116/61 143/78 134/73 O2 Sat by Pulse 96 100 100 Oximetry 01/25/19 01/25/19 01/25/19 07:32 07:33 08:08 Temperature 98.7 F Pulse Rate 94 H Pulse Rate [ 90 Anterior Left Throughout] Pulse Rate [ 88 Anterior Right Throughout] Pulse Rate [ From Monitor] Respiratory 36 H Rate Respiratory 14 Rate [Anterior Left Throughout ] Respiratory 16 Rate [Anterior Right Throughout] Blood Pressure 134/73 O2 Sat by Pulse 100 Oximetry Constitutional: no acute distress, other (elderly, atraumatic, normocephalic, chronically looking female) Eyes: non-icteric ENT: oropharynx moist, other (ETT at 23cm) Neck: supple, no lymphadenopathy, no JVD Effort: normal Ascultation: Bilateral: diminished breath sounds, rales (bases), rhonchi (scant), other (coarse breath sound bilaterally upper lobes anteriorly) Percussion: Bilateral: not dull Cardiovascular: regular rate and rhythm, other (tacycardia, S1,S2, no murmurs, g allops or rubs) Gastrointestinal: normoactive bowel sounds, soft, non-tender, non-distended Integumentary: normal Extremities: no cyanosis, no edema, pulses normal, no ischemia or petechiae Neurologic: unable to assess Psychiatric: other (unable to assess secondary to mental status) CBC and BMP: 01/25/19 05:15 01/25/19 05:15 ABG, PT/INR, D-dimer: ABG POC ABG pH 7.522 (7.35-7.45) H 01/22/19 04:35 POC ABG pCO2 36.3 (35-45) 01/22/19 04:35 POC ABG pO2 94 (80-105) 01/22/19 04:35 POC ABG HCO3 29.8 (22-26 mml/L) 01/22/19 04:35 POC ABG Total CO2 31 (23-27mmol/L) 01/22/19 04:35 POC ABG O2 Sat 98 01/22/19 04:35 PT/INR, D-dimer PT 18.8 Sec. (12.2-14.9) H 01/25/19 05:15 INR 1.47 (0.87-1.13) H 01/25/19 05:15 Abnormal lab findings: Abnormal Labs 01/15/19 01/15/19 01/15/19 07:50 07:50 07:50 WBC RBC Hgb Hct MCV 99 H RDW 16.7 H Plt Count 122 L Lymph % (Auto) Lymph # Seg Neutrophils % Seg Neuts % (Manual) Lymphocytes % (Manual) Seg Neutrophils # Seg Neutrophils # Man Lymphocytes # (Manual) PT 19.7 H INR 1.56 H POC ABG pH POC ABG pCO2 POC ABG pO2 Sodium Potassium Chloride Carbon Dioxide 11 L BUN Creatinine 1.4 H Glucose 268 H POC Glucose Calcium AST 57 H Total Creatine Kinase CK-MB (CK-2) Troponin T NT-Pro-B Natriuret Pep 5346 H Total Protein Albumin 3.6 L HDL Cholesterol 01/15/19 01/15/19 01/15/19 09:56 11:53 17:52 WBC RBC Hgb Hct MCV RDW Plt Count Lymph % (Auto) Lymph # Seg Neutrophils % Seg Neuts % (Manual) Lymphocytes % (Manual) Seg Neutrophils # Seg Neutrophils # Man Lymphocytes # (Manual) PT INR POC ABG pH 7.186 L POC ABG pCO2 46.4 H POC ABG pO2 Sodium Potassium Chloride Carbon Dioxide BUN Creatinine Glucose POC Glucose Calcium AST Total Creatine Kinase 683 H 1430 H CK-MB (CK-2) 9.5 H 13.5 H Troponin T 0.036 H D NT-Pro-B Natriuret Pep Total Protein Albumin HDL Cholesterol 65 H 01/15/19 01/15/19 01/16/19 18:31 21:46 02:14 WBC RBC Hgb Hct MCV RDW Plt Count Lymph % (Auto) Lymph # Seg Neutrophils % Seg Neuts % (Manual) Lymphocytes % (Manual) Seg Neutrophils # Seg Neutrophils # Man Lymphocytes # (Manual) PT INR POC ABG pH POC ABG pCO2 31.8 L POC ABG pO2 167 H Sodium Potassium Chloride Carbon Dioxide BUN Creatinine Glucose POC Glucose 134 H 136 H Calcium AST Total Creatine Kinase CK-MB (CK-2) Troponin T NT-Pro-B Natriuret Pep Total Protein Albumin HDL Cholesterol 01/16/19 01/16/19 01/16/19 04:16 04:16 05:05 WBC 11.4 H RBC Hgb Hct MCV RDW Plt Count 105 L Lymph % (Auto) Lymph # Seg Neutrophils % Seg Neuts % (Manual) 74.0 H Lymphocytes % (Manual) 2.0 L Seg Neutrophils # Seg Neutrophils # Man 8.4 H Lymphocytes # (Manual) 0.2 L PT INR POC ABG pH 7.458 H POC ABG pCO2 31.4 L POC ABG pO2 135 H Sodium Potassium 3.3 L Chloride Carbon Dioxide 21 L D BUN 24 H Creatinine 1.5 H Glucose 141 H POC Glucose Calcium 8.1 L AST 71 H Total Creatine Kinase CK-MB (CK-2) Troponin T NT-Pro-B Natriuret Pep Total Protein 6.2 L Albumin 3.5 L HDL Cholesterol 01/16/19 01/16/19 01/16/19 05:24 13:42 21:08 WBC RBC Hgb Hct MCV RDW Plt Count Lymph % (Auto) Lymph # Seg Neutrophils % Seg Neuts % (Manual) Lymphocytes % (Manual) Seg Neutrophils # Seg Neutrophils # Man Lymphocytes # (Manual) PT INR POC ABG pH POC ABG pCO2 POC ABG pO2 Sodium Potassium Chloride Carbon Dioxide BUN Creatinine Glucose POC Glucose 137 H 129 H 122 H Calcium AST Total Creatine Kinase CK-MB (CK-2) Troponin T NT-Pro-B Natriuret Pep Total Protein Albumin HDL Cholesterol 01/17/19 01/17/19 01/17/19 02:18 04:23 05:13 WBC RBC Hgb Hct MCV RDW Plt Count Lymph % (Auto) Lymph # Seg Neutrophils % Seg Neuts % (Manual) Lymphocytes % (Manual) Seg Neutrophils # Seg Neutrophils # Man Lymphocytes # (Manual) PT INR POC ABG pH 7.479 H POC ABG pCO2 30.0 L POC ABG pO2 141 H Sodium Potassium Chloride Carbon Dioxide BUN Creatinine Glucose POC Glucose 139 H 128 H Calcium AST Total Creatine Kinase CK-MB (CK-2) Troponin T NT-Pro-B Natriuret Pep Total Protein Albumin HDL Cholesterol 01/17/19 01/17/19 01/17/19 10:22 15:59 18:45 WBC RBC Hgb Hct MCV RDW Plt Count Lymph % (Auto) Lymph # Seg Neutrophils % Seg Neuts % (Manual) Lymphocytes % (Manual) Seg Neutrophils # Seg Neutrophils # Man Lymphocytes # (Manual) PT INR POC ABG pH POC ABG pCO2 POC ABG pO2 Sodium Potassium Chloride Carbon Dioxide BUN Creatinine Glucose POC Glucose 133 H 121 H 106 H Calcium AST Total Creatine Kinase CK-MB (CK-2) Troponin T NT-Pro-B Natriuret Pep Total Protein Albumin HDL Cholesterol 01/17/19 01/18/19 01/18/19 23:35 04:21 04:21 WBC RBC 3.27 L Hgb 9.6 L Hct 29.9 L MCV RDW Plt Count 79 L Lymph % (Auto) 6.0 L Lymph # 0.5 L Seg Neutrophils % 89.2 H Seg Neuts % (Manual) Lymphocytes % (Manual) Seg Neutrophils # 8.1 H Seg Neutrophils # Man Lymphocytes # (Manual) PT INR POC ABG pH POC ABG pCO2 POC ABG pO2 Sodium Potassium Chloride Carbon Dioxide BUN 28 H Creatinine 1.3 H Glucose 129 H POC Glucose 121 H Calcium AST 120 H Total Creatine Kinase CK-MB (CK-2) Troponin T NT-Pro-B Natriuret Pep Total Protein 5.1 L Albumin 3.0 L HDL Cholesterol 01/18/19 01/18/19 01/18/19 04:21 04:36 05:43 WBC RBC Hgb Hct MCV RDW Plt Count Lymph % (Auto) Lymph # Seg Neutrophils % Seg Neuts % (Manual) Lymphocytes % (Manual) Seg Neutrophils # Seg Neutrophils # Man Lymphocytes # (Manual) PT INR POC ABG pH 7.485 H POC ABG pCO2 31.0 L POC ABG pO2 126 H Sodium Potassium Chloride Carbon Dioxide BUN 28 H Creatinine 1.3 H Glucose 128 H POC Glucose 142 H Calcium AST Total Creatine Kinase CK-MB (CK-2) Troponin T NT-Pro-B Natriuret Pep Total Protein Albumin HDL Cholesterol 01/18/19 01/18/19 01/18/19 12:04 18:16 20:47 WBC RBC Hgb Hct MCV RDW Plt Count Lymph % (Auto) Lymph # Seg Neutrophils % Seg Neuts % (Manual) Lymphocytes % (Manual) Seg Neutrophils # Seg Neutrophils # Man Lymphocytes # (Manual) PT INR POC ABG pH 7.489 H POC ABG pCO2 32.8 L POC ABG pO2 Sodium Potassium Chloride Carbon Dioxide BUN Creatinine Glucose POC Glucose 113 H 119 H Calcium AST Total Creatine Kinase CK-MB (CK-2) Troponin T NT-Pro-B Natriuret Pep Total Protein Albumin HDL Cholesterol 01/19/19 01/19/19 01/19/19 00:40 05:35 11:39 WBC RBC Hgb Hct MCV RDW Plt Count Lymph % (Auto) Lymph # Seg Neutrophils % Seg Neuts % (Manual) Lymphocytes % (Manual) Seg Neutrophils # Seg Neutrophils # Man Lymphocytes # (Manual) PT INR POC ABG pH POC ABG pCO2 POC ABG pO2 Sodium Potassium Chloride Carbon Dioxide BUN Creatinine Glucose POC Glucose 137 H 157 H 155 H Calcium AST Total Creatine Kinase CK-MB (CK-2) Troponin T NT-Pro-B Natriuret Pep Total Protein Albumin HDL Cholesterol 01/19/19 01/19/19 01/19/19 18:24 21:08 23:33 WBC RBC Hgb Hct MCV RDW Plt Count Lymph % (Auto) Lymph # Seg Neutrophils % Seg Neuts % (Manual) Lymphocytes % (Manual) Seg Neutrophils # Seg Neutrophils # Man Lymphocytes # (Manual) PT INR POC ABG pH 7.508 H POC ABG pCO2 34.2 L POC ABG pO2 Sodium Potassium Chloride Carbon Dioxide BUN Creatinine Glucose POC Glucose 145 H 156 H Calcium AST Total Creatine Kinase CK-MB (CK-2) Troponin T NT-Pro-B Natriuret Pep Total Protein Albumin HDL Cholesterol 01/20/19 01/20/19 01/20/19 05:12 11:42 17:36 WBC RBC Hgb Hct MCV RDW Plt Count Lymph % (Auto) Lymph # Seg Neutrophils % Seg Neuts % (Manual) Lymphocytes % (Manual) Seg Neutrophils # Seg Neutrophils # Man Lymphocytes # (Manual) PT INR POC ABG pH POC ABG pCO2 POC ABG pO2 Sodium Potassium Chloride Carbon Dioxide BUN Creatinine Glucose POC Glucose 152 H 159 H 169 H Calcium AST Total Creatine Kinase CK-MB (CK-2) Troponin T NT-Pro-B Natriuret Pep Total Protein Albumin HDL Cholesterol 01/20/19 01/21/19 01/21/19 23:29 05:30 05:34 WBC RBC Hgb Hct MCV RDW Plt Count Lymph % (Auto) Lymph # Seg Neutrophils % Seg Neuts % (Manual) Lymphocytes % (Manual) Seg Neutrophils # Seg Neutrophils # Man Lymphocytes # (Manual) PT INR POC ABG pH 7.616 H POC ABG pCO2 POC ABG pO2 71 L Sodium Potassium Chloride Carbon Dioxide BUN Creatinine Glucose POC Glucose 139 H 138 H Calcium AST Total Creatine Kinase CK-MB (CK-2) Troponin T NT-Pro-B Natriuret Pep Total Protein Albumin HDL Cholesterol 01/21/19 01/21/19 01/22/19 12:41 18:47 00:07 WBC RBC Hgb Hct MCV RDW Plt Count Lymph % (Auto) Lymph # Seg Neutrophils % Seg Neuts % (Manual) Lymphocytes % (Manual) Seg Neutrophils # Seg Neutrophils # Man Lymphocytes # (Manual) PT INR POC ABG pH POC ABG pCO2 POC ABG pO2 Sodium Potassium Chloride Carbon Dioxide BUN Creatinine Glucose POC Glucose 154 H 174 H 163 H Calcium AST Total Creatine Kinase CK-MB (CK-2) Troponin T NT-Pro-B Natriuret Pep Total Protein Albumin HDL Cholesterol 01/22/19 01/22/19 01/22/19 04:35 05:46 12:18 WBC RBC Hgb Hct MCV RDW Plt Count Lymph % (Auto) Lymph # Seg Neutrophils % Seg Neuts % (Manual) Lymphocytes % (Manual) Seg Neutrophils # Seg Neutrophils # Man Lymphocytes # (Manual) PT INR POC ABG pH 7.522 H POC ABG pCO2 POC ABG pO2 Sodium Potassium Chloride Carbon Dioxide BUN Creatinine Glucose POC Glucose 159 H 137 H Calcium AST Total Creatine Kinase CK-MB (CK-2) Troponin T NT-Pro-B Natriuret Pep Total Protein Albumin HDL Cholesterol 01/22/19 01/22/19 01/22/19 15:00 15:00 18:13 WBC RBC 2.92 L Hgb 8.4 L Hct 25.6 L MCV RDW Plt Count Lymph % (Auto) Lymph # Seg Neutrophils % Seg Neuts % (Manual) Lymphocytes % (Manual) Seg Neutrophils # Seg Neutrophils # Man Lymphocytes # (Manual) PT INR POC ABG pH POC ABG pCO2 POC ABG pO2 Sodium Potassium Chloride 97.0 L Carbon Dioxide BUN 37 H Creatinine Glucose 162 H POC Glucose 159 H Calcium 8.2 L AST Total Creatine Kinase CK-MB (CK-2) Troponin T NT-Pro-B Natriuret Pep Total Protein Albumin HDL Cholesterol 01/22/19 01/23/19 01/23/19 22:45 00:01 05:10 WBC RBC 2.92 L Hgb 8.5 L Hct 25.4 L MCV RDW Plt Count Lymph % (Auto) 6.3 L Lymph # 0.6 L Seg Neutrophils % 86.3 H Seg Neuts % (Manual) Lymphocytes % (Manual) Seg Neutrophils # 8.9 H Seg Neutrophils # Man Lymphocytes # (Manual) PT INR POC ABG pH POC ABG pCO2 POC ABG pO2 Sodium Potassium Chloride Carbon Dioxide BUN Creatinine Glucose POC Glucose 178 H 155 H Calcium AST Total Creatine Kinase CK-MB (CK-2) Troponin T NT-Pro-B Natriuret Pep Total Protein Albumin HDL Cholesterol 01/23/19 01/23/19 01/23/19 11:31 17:49 Unknown WBC RBC Hgb Hct MCV RDW Plt Count Lymph % (Auto) Lymph # Seg Neutrophils % Seg Neuts % (Manual) Lymphocytes % (Manual) Seg Neutrophils # Seg Neutrophils # Man Lymphocytes # (Manual) PT INR POC ABG pH POC ABG pCO2 POC ABG pO2 Sodium Potassium Chloride 95.4 L Carbon Dioxide BUN 37 H Creatinine Glucose 144 H POC Glucose 161 H 142 H Calcium AST 88 H Total Creatine Kinase CK-MB (CK-2) Troponin T NT-Pro-B Natriuret Pep Total Protein 6.0 L Albumin 2.9 L HDL Cholesterol 01/24/19 01/24/19 01/24/19 00:21 05:36 12:35 WBC RBC Hgb Hct MCV RDW Plt Count Lymph % (Auto) Lymph # Seg Neutrophils % Seg Neuts % (Manual) Lymphocytes % (Manual) Seg Neutrophils # Seg Neutrophils # Man Lymphocytes # (Manual) PT INR POC ABG pH POC ABG pCO2 POC ABG pO2 Sodium Potassium Chloride Carbon Dioxide BUN Creatinine Glucose POC Glucose 163 H 147 H 263 H Calcium AST Total Creatine Kinase CK-MB (CK-2) Troponin T NT-Pro-B Natriuret Pep Total Protein Albumin HDL Cholesterol 01/24/19 01/24/19 01/24/19 17:46 23:07 Unknown WBC RBC 2.90 L Hgb 8.3 L Hct 25.0 L MCV RDW Plt Count Lymph % (Auto) Lymph # Seg Neutrophils % Seg Neuts % (Manual) Lymphocytes % (Manual) Seg Neutrophils # Seg Neutrophils # Man Lymphocytes # (Manual) PT INR POC ABG pH POC ABG pCO2 POC ABG pO2 Sodium Potassium Chloride Carbon Dioxide BUN Creatinine Glucose POC Glucose 161 H 167 H Calcium AST Total Creatine Kinase CK-MB (CK-2) Troponin T NT-Pro-B Natriuret Pep Total Protein Albumin HDL Cholesterol 01/24/19 01/25/19 01/25/19 Unknown 05:15 05:15 WBC RBC 2.90 L Hgb 8.4 L Hct 25.2 L MCV RDW Plt Count Lymph % (Auto) Lymph # Seg Neutrophils % Seg Neuts % (Manual) Lymphocytes % (Manual) Seg Neutrophils # Seg Neutrophils # Man Lymphocytes # (Manual) PT INR POC ABG pH POC ABG pCO2 POC ABG pO2 Sodium 134 L 135 L Potassium Chloride 94.4 L 94.0 L Carbon Dioxide BUN 35 H 35 H Creatinine Glucose 151 H 128 H POC Glucose Calcium AST Total Creatine Kinase CK-MB (CK-2) Troponin T NT-Pro-B Natriuret Pep Total Protein Albumin HDL Cholesterol 01/25/19 01/25/19 05:15 05:35 WBC RBC Hgb Hct MCV RDW Plt Count Lymph % (Auto) Lymph # Seg Neutrophils % Seg Neuts % (Manual) Lymphocytes % (Manual) Seg Neutrophils # Seg Neutrophils # Man Lymphocytes # (Manual) PT 18.8 H INR 1.47 H POC ABG pH POC ABG pCO2 POC ABG pO2 Sodium Potassium Chloride Carbon Dioxide BUN Creatinine Glucose POC Glucose 126 H Calcium AST Total Creatine Kinase CK-MB (CK-2) Troponin T NT-Pro-B Natriuret Pep Total Protein Albumin HDL Cholesterol Allied health notes reviewed: nursing
[2019-01-25] MEDS: ROCEPHIN/NS 2 GM/100 ML 2 GM/100 ML BAG IV SCH (09:52)
[2019-01-25] MEDS ORDERED: WATER FOR IRRIG STERILE IR ONE (10:10)
[2019-01-25] MEDS ORDERED: NACL 0.9% 1000 ML 1,000 ML ONE (10:10)
[2019-01-25] MEDS: COREG PO SCH ×2 (11:04→21:36)
[2019-01-25] MEDS: ARIXTRA SUB-Q SCH (11:04)
[2019-01-25] MEDS: BABY ASPIRIN PO SCH (11:04)
[2019-01-25] MEDS: PEPCID PO SCH (11:05)
[2019-01-25] MEDS: PROVIGIL PO SCH (11:05)
[2019-01-25] MEDS: KEPPRA PO SCH ×2 (11:05→21:38)
[2019-01-25] MEDS: NORVASC PO SCH (11:05)
--- NOTE | 2019-01-25 11:33 | Progress Note ---
Assessment and Plan Cultures: Blood culture 01/15/2019 no growth. Stool culture 01/20/2019 no growth today. Trachea asp culture 01/15/2019 upper resp papo. Urine culture 01/21/2019: no growth to date Blood culture 01/21/2019: no growth Assessment: 73 y/o female with a history of diastolic CHF, cardiomyopathy, CAD s/p sten, pericardial effusion requiring pericardiocentesis (2012), hypertension, COPD with emphysema, CKD and gout: admitted on 01/15/19 after a cardiac arrest. 1) S/p Cardiopulmonary arrest, out of hospital, PEA with ROSC 2) Acute respiratory failure: intubated on SBT 3) Acute encephalopathy: metabolic. Head CT shows no evidence for acute ischemia 4) CARMELINA: improving 5) Seizure activity 6) Sepsis:. Resolved. Etiology possible asp pneumonia, ? central fever, ? drug fever. Trachea asp culture 01/15/2019 upper resp papo. U/A w/o pyuria. Urine culture in progress. 7) Thrombocytopenia: resolved 8) Diarrhea: C diff negative.Stool culture 01/15/2019 no growth. 9) Bladder retention now with cooper 10) Possible contact dermatitis: Etio possible ?monitor leads. Triancinolone cream ordered to be applied twice a day. Recommendations: - Continue ceftriaxone and flagy, D6 of D7 - Triancinolone cream ordered for contact dermatitis -monitor off antibiotics ID is signing off - please call for questions PRAFUL [facility] M: [phone] O:[phone] Subjective Date of service: 01/25/19 Principal diagnosis: OOH cardiac arrest; Acute hypoxemic-hypercapnic Resp failure; PNA Interval history: Patient seen and examined. Remains intubated and unresponsive. No pressors. no fevers. Granddaughter at bedside. Objective - Exam Narrative Exam: General appearance: . Unresponsive, + trach Eyes: anicteric sclerae, moist conjunctivae; no lid-lag; PERRLA HENT: Atraumatic; + trach Neck: Trachea midline; supple, no thyromegaly or lymphadenopathy Lungs: scattered olman rhonchi CV: RRR Abdomen: Soft, non-tender; no masses or hepatosplenomegaly Extremities:olman edema Skin: Normal temperature, turgor and texture; possible contact dermatitis on chest Psych: Calm . Neuro: unresponsive. - Constitutional Vitals: Vital Signs Temp Pulse Resp BP Pulse Ox 98.3 F 87 25 H 141/78 100 01/25/19 11:24 01/25/19 11:00 01/25/19 11:00 01/25/19 11:00 01/25/19 11:00 Temperature -Last 24 Hours Temperature 98.3 F Temperature 98.7 F Temperature 98.1 F Temperature 98.5 F Temperature 97.0 F Temperature 97.7 F Temperature 97.4 F - Labs CBC & Chem 7: 01/25/19 05:15 01/25/19 05:15 Labs: Abnormal lab results 01/24/19 01/24/19 01/24/19 Range/Units 12:35 17:46 23:07 RBC (3.65-5.03) M/mm3 Hgb (10.1-14.3) gm/dl Hct (30.3-42.9) % PT (12.2-14.9) Sec. INR (0.87-1.13) Sodium (137-145) mmol/L Chloride (98-107) mmol/L BUN (7-17) mg/dL Glucose (65-100) mg/dL POC Glucose 263 H 161 H 167 H (70-105) 01/25/19 01/25/19 01/25/19 Range/Units 05:15 05:15 05:15 RBC 2.90 L (3.65-5.03) M/mm3 Hgb 8.4 L (10.1-14.3) gm/dl Hct 25.2 L (30.3-42.9) % PT 18.8 H (12.2-14.9) Sec. INR 1.47 H (0.87-1.13) Sodium 135 L (137-145) mmol/L Chloride 94.0 L (98-107) mmol/L BUN 35 H (7-17) mg/dL Glucose 128 H (65-100) mg/dL POC Glucose (70-105) 01/25/19 01/25/19 Range/Units 05:35 11:09 RBC (3.65-5.03) M/mm3 Hgb (10.1-14.3) gm/dl Hct (30.3-42.9) % PT (12.2-14.9) Sec. INR (0.87-1.13) Sodium (137-145) mmol/L Chloride (98-107) mmol/L BUN (7-17) mg/dL Glucose (65-100) mg/dL POC Glucose 126 H 149 H (70-105)
[2019-01-25] MEDS ORDERED: DIPRIVAN 10 MG/ML IV ONE (11:48)
[2019-01-25] MEDS ORDERED: ZEMURON IV ONE (11:48)
[2019-01-25] MEDS ORDERED: VERSED ONE (12:25)
--- NOTE | 2019-01-25 12:58 | Procedure Note ---
Date of procedure: 01/25/19 Pre-op diagnosis: respiratory arrest Post-op diagnosis: same Procedure: perc trach with bronch guidance Consent was on the chart. Time out was performed. Sterile prep and drape was done. Anesthesia was managed by anesthesia provider. Lidocaine was used to anesthetize an area about two finger breadths above the sternal notch. Transverse incision was made. Blunt dissection was carried down to trachea. Had to go just under the thyroid. Under bronchoscopic guidance, a finder needle was used to enter the trachea. Thereafter, the introducer needle was inserted. It was approximately at the third tracheal ring as we had to go below the thyroid. Tract was dilated and tracheostomy tube was easily inserted. Balloon was inflated. Position was rechecked via bronchoscopy through the tracheostomy tube. We were at least 2 cm above the john. We had adequate inspiratory and expiratory volumes. CXR shows the tube to be in good position. There were no apparent complications at the end of the case. Findings: normal anatomy Implants: 8 Shiley Juan Pablo Anesthesia: MAC Surgeon: JOSE MARTÍNEZ Metal Hardener: STEPHANIE RYAN (performed bronch) Estimated blood loss: minimal Pathology: none Condition: stable Disposition: ICU
--- NOTE | 2019-01-25 13:00 | Anesthesia Consultation ---
Anesthesia Consult and Med Hx Date of service: 01/25/19 - Airway Intubation Access Assessment: Good (Patient already intubated and on ventilator) - Pulmonary Exam CTA: No (Bilateral rhonchi) - Cardiac Exam Cardiac Exam: RRR - Pre-Operative Health Status ASA Pre-Surgery Classification: ASA4 Proposed Anesthetic Plan: General - Pulmonary Hx Smoking: No Hx Asthma: No Hx Respiratory Symptoms: Yes (witnessed cardiopulmonary arrest after seizure at home) COPD: Yes Home Oxygen Therapy: No Hx Pneumonia: Yes - Cardiovascular System Hx Hypertension: Yes Hx Heart Attack/AMI: Yes Hx Pacemaker: No Hx Internal Defibrillator: No - Central Nervous System Hx Seizures: Yes - Endocrine Hx Renal Disease: No Hx Liver Disease: No Hx Insulin Dependent Diabetes: No Hx Non-Insulin Dependent Diabetes: No Hx Thyroid Disease: No - Hematic Hx Anemia: Yes - Other Systems Hx Alcohol Use: No Hx Substance Use: No - Additional Comments Anesthesia Medical History Comments: Patient intubated; h/o CAD with stents; EF 35-40%; no GAC, no FHAC
--- NOTE | 2019-01-25 13:00 | Anesthesia Day of Surgery ---
Anesthesia Day of Surgery - Day of Surgery Patient Examined: Yes Patient H&P Reviewed: Yes Patient is NPO: Yes
--- NOTE | 2019-01-25 13:13 | Procedure Note ---
Date of procedure: 01/25/19 Pre-op diagnosis: VDRF Post-op diagnosis: same Procedure: Fiberoptic bronchoscopy, EGD Findings: Time out performed. Fiberoptic bronchoscope passed through ETT and into trachea. Trachea unremarkable, no secretions or irritation. ETT balloon deflated and tube slowly withdrawn to 17cm. Percutaneous tracheostomy performed by Dr. Mcclain under direct visualization (see separate note). Once tracheostomy was placed, bronchoscope was withdrawn from ETT and passed through tracheostomy. Tracheostomy 2cm above john. Airway clear. No bleeding. Bronchscope withdrawn and vent hooked up to tracheostomy and tracheostomy secured with neck strap Next, EGD performed by passing endoscope through mouth, into esophagus and into stomach under direct visualization. The stomach wad insufflated. There was some evidence of trauma to mucosa of stomach from NGT suction. An adequate location for PEG tube placement could not be transilluminated and so the procedure was aborted. The remainder of the stomach was unremarkable. The endoscope was withdrawn while decompressing the stomach. The esophagus was examined and was unremarkable. The abdomen was distended and tympanitic prior to start of procedure. NGT was secured to nose with tape and placed to LIWS. The patient tolerated the procedure well. Anesthesia: GETA Surgeon: STEPHANIE RYAN Estimated blood loss: none Pathology: none Condition: stable Disposition: no change
--- NOTE | 2019-01-25 14:09 | XRay Report ---
A single view chest: History: Trachea placement. Findings: Tip of tracheostomy tube is in normal position. Tip of right PICC line in upper superior vena cava. Cardiomegaly with mild pulmonary venous congestion. Suspected minimal pleural effusion bilaterally. Impression: Tip of tracheostomy tube in normal position.
--- NOTE | 2019-01-25 14:10 | XRay Report ---
Single view abdomen: History: NG tube placement. Findings: Tip of NG tube is noted in stomach. Moderate distention of small bowel and colon with air. Stool in colon. No radiopaque or abnormal calcification. Impression: Incomplete small bowel obstruction or ileus.
[2019-01-26] MEDS: DUONEB *Not for PRN Use IH SCH ×4 (01:35→19:57)
[2019-01-26] MEDS: LASIX PO SCH ×3 (05:23→19:35)
[2019-01-26] MEDS: FLAGYL 500 MG/100 ML 500 MG/100 ML BAG IV SCH ×2 (05:25→13:38)
[2019-01-26] MEDS: HumaLOG SUB-Q SCH ×3 (05:27→19:29)
[2019-01-26 06:50] LABS: Hematocrit 24.4 % (30.3-42.9); Hemoglobin 8.1 gm/dl (10.1-14.3); Mean Corpuscular HGB Conc 33 % (30-34); Mean Corpuscular Volume 86 fl (79-97); Platelet Count 297 K/mm3 (140-440); Red Blood Count 2.83 M/mm3 (3.65-5.03); Red Cell Distribution Width 14.3 % (13.2-15.2)
[2019-01-26 07:14] LABS: BUN/Creatinine Ratio 41; Blood Urea Nitrogen 29 mg/dL (7-17); Calcium 8.3 mg/dL (8.4-10.2); Hemolysis Index 0
--- NOTE | 2019-01-26 08:49 | Progress Note ---
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 supportive care Neurology following Sepsis due to pneumonia On iv Abx. ID Physician following Pneumonia CARMELINA due to ATN Improving Seizure activity COPD/Emphesema Not on home Oxygen History of stroke in 1982 Full code status Prognosis guarded History Interval history: Still intubated Still unresponsive Tracheostomy done yesterday PEG not done Hospitalist Physical - Physical exam Narrative exam: Gen: Not in acute distres HEENT: Normocephalic, atraumatic Neck: supple, no JVD, tracheostomy midline Heart: S1 and S2 reg, no murmurs, rubs or gallop Lungs: Clear, no crackles, no wheeze Abd: soft, non tender, non distended, normal BS Ext: No edema, no clubbing, no cyanosis, Neuro: Comatose, Not following commands - Constitutional Vitals: Temp Pulse Resp BP Pulse Ox 98.4 F 86 27 H 121/76 100 01/26/19 08:00 01/26/19 08:00 01/26/19 08:00 01/26/19 07:54 01/26/19 07:54 General appearance: Present: no acute distress, other (intubated) Results - Labs CBC & Chem 7: 01/26/19 06:35 01/26/19 06:35 Labs: Laboratory Last Values WBC 8.1 K/mm3 (4.5-11.0) 01/26/19 06:35 RBC 2.83 M/mm3 (3.65-5.03) L 01/26/19 06:35 Hgb 8.1 gm/dl (10.1-14.3) L 01/26/19 06:35 Hct 24.4 % (30.3-42.9) L 01/26/19 06:35 MCV 86 fl (79-97) 01/26/19 06:35 MCH 29 pg (28-32) 01/26/19 06:35 MCHC 33 % (30-34) 01/26/19 06:35 RDW 14.3 % (13.2-15.2) 01/26/19 06:35 Plt Count 297 K/mm3 (140-440) 01/26/19 06:35 Lymph % (Auto) 6.3 % (13.4-35.0) L 01/23/19 00:01 [place] % (Auto) 6.6 % (0.0-7.3) 01/23/19 00:01 Eos % (Auto) 0.5 % (0.0-4.3) 01/23/19 00:01 Baso % (Auto) 0.3 % (0.0-1.8) 01/23/19 00:01 Lymph # 0.6 K/mm3 (1.2-5.4) L 01/23/19 00:01 [place] # 0.7 K/mm3 (0.0-0.8) 01/23/19 00:01 Eos # 0.1 K/mm3 (0.0-0.4) 01/23/19 00:01 Baso # 0.0 K/mm3 (0.0-0.1) 01/23/19 00:01 Add Manual Diff Complete 01/16/19 04:16 Total Counted 100 01/16/19 04:16 Seg Neutrophils % 86.3 % (40.0-70.0) H 01/23/19 00:01 Seg Neuts % (Manual) 74.0 % (40.0-70.0) H 01/16/19 04:16 22.0 % 01/16/19 04:16 2.0 % (13.4-35.0) L 01/16/19 04:16 Reactive Lymphs % (Man) 0 % 01/16/19 04:16 2.0 % (0.0-7.3) 01/16/19 04:16 0 % (0.0-4.3) 01/16/19 04:16 0 % (0.0-1.8) 01/16/19 04:16 0 % 01/16/19 04:16 0 % 01/16/19 04:16 0 % 01/16/19 04:16 0 % 01/16/19 04:16 Nucleated RBC % Not Reportable 01/16/19 04:16 Seg Neutrophils # 8.9 K/mm3 (1.8-7.7) H 01/23/19 00:01 Seg Neutrophils # Man 8.4 K/mm3 (1.8-7.7) H 01/16/19 04:16 Band Neutrophils # 2.5 K/mm3 01/16/19 04:16 0.2 K/mm3 (1.2-5.4) L 01/16/19 04:16 Abs React Lymphs (Man) 0.0 K/mm3 01/16/19 04:16 0.2 K/mm3 (0.0-0.8) 01/16/19 04:16 0.0 K/mm3 (0.0-0.4) 01/16/19 04:16 0.0 K/mm3 (0.0-0.1) 01/16/19 04:16 0.0 K/mm3 01/16/19 04:16 0.0 K/mm3 01/16/19 04:16 0.0 K/mm3 01/16/19 04:16 Blast Cells # 0.0 K/mm3 01/16/19 04:16 WBC Morphology Not Reportable 01/16/19 04:16 Hypersegmented Neuts Not Reportable 01/16/19 04:16 Hyposegmented Neuts Not Reportable 01/16/19 04:16 Hypogranular Neuts Not Reportable 01/16/19 04:16 Not Reportable 01/16/19 04:16 Not Reportable 01/16/19 04:16 Not Reportable 01/16/19 04:16 Not Reportable 01/16/19 04:16 Not Reportable 01/16/19 04:16 Not Reportable 01/16/19 04:16 Consistent w auto 01/16/19 04:16 Not Reportable 01/16/19 04:16 Plt Clumps, EDTA Not Reportable 01/16/19 04:16 Not Reportable 01/16/19 04:16 Not Reportable 01/16/19 04:16 Not Reportable 01/16/19 04:16 Plt Morphology Comment Not Reportable 01/16/19 04:16 RBC Morphology Normal 01/16/19 04:16 Dimorphic RBCs Not Reportable 01/16/19 04:16 Not Reportable 01/16/19 04:16 Not Reportable 01/16/19 04:16 Not Reportable 01/16/19 04:16 Not Reportable 01/16/19 04:16 Not Reportable 01/16/19 04:16 Not Reportable 01/16/19 04:16 Not Reportable 01/16/19 04:16 Not Reportable 01/16/19 04:16 Not Reportable 01/16/19 04:16 Not Reportable 01/16/19 04:16 Not Reportable 01/16/19 04:16 Not Reportable 01/16/19 04:16 Not Reportable 01/16/19 04:16 Not Reportable 01/16/19 04:16 Not Reportable 01/16/19 04:16 Not Reportable 01/16/19 04:16 Not Reportable 01/16/19 04:16 Not Reportable 01/16/19 04:16 Not Reportable 01/16/19 04:16 Acanthocytes (Spur) Not Reportable 01/16/19 04:16 Rouleaux Not Reportable 01/16/19 04:16 Not Reportable 01/16/19 04:16 Not Reportable 01/16/19 04:16 Not Reportable 01/16/19 04:16 Not Reportable 01/16/19 04:16 Hem Pathologist Commnt No 01/16/19 04:16 PT 18.8 Sec. (12.2-14.9) H 01/25/19 05:15 INR 1.47 (0.87-1.13) H 01/25/19 05:15 APTT 36.0 Sec. (24.2-36.6) 01/15/19 07:50 Heparin Anti-Xa, Unfract Negative (Negative) 01/19/19 Unknown POC ABG pH 7.522 (7.35-7.45) H 01/22/19 04:35 POC ABG pCO2 36.3 (35-45) 01/22/19 04:35 POC ABG pO2 94 (80-105) 01/22/19 04:35 POC ABG HCO3 29.8 (22-26 mml/L) 01/22/19 04:35 POC ABG Total CO2 31 (23-27mmol/L) 01/22/19 04:35 POC ABG O2 Sat 98 01/22/19 04:35 POC ABG Base Excess 7 ((-2) - (+3)mmol/L) 01/22/19 04:35 25 % 01/22/19 04:35 Sodium 138 mmol/L (137-145) 01/26/19 06:35 Potassium 4.1 mmol/L (3.6-5.0) 01/26/19 06:35 Chloride 96.9 mmol/L (98-107) L 01/26/19 06:35 Carbon Dioxide 29 mmol/L (22-30) 01/26/19 06:35 16 mmol/L 01/26/19 06:35 BUN 29 mg/dL (7-17) H 01/26/19 06:35 0.7 mg/dL (0.7-1.2) 01/26/19 06:35 Estimated GFR > 60 ml/min 01/26/19 06:35 41 % 01/26/19 06:35 Glucose 141 mg/dL (65-100) H 01/26/19 06:35 POC Glucose 159 (70-105) H 01/26/19 05:05 6.0 % (4-6) 01/15/19 11:53 Calcium 8.3 mg/dL (8.4-10.2) L 01/26/19 06:35 0.30 mg/dL (0.1-1.2) 01/23/19 Unknown AST 88 units/L (5-40) H 01/23/19 Unknown ALT 31 units/L (7-56) 01/23/19 Unknown 48 units/L (35-129) 01/23/19 Unknown 1430 units/L (30-135) H 01/15/19 17:52 CK-MB (CK-2) 13.5 ng/mL (0.0-4.0) H 01/15/19 17:52 CK-MB (CK-2) Rel Index 0.9 (0-4) 01/15/19 17:52 0.036 ng/mL (0.00-0.029) H D 01/15/19 17:52 NT-Pro-B Natriuret Pep 5346 pg/mL (0-900) H 01/15/19 07:50 6.0 g/dL (6.3-8.2) L 01/23/19 Unknown 2.9 g/dL (3.9-5) L 01/23/19 Unknown 0.9 % 01/23/19 Unknown Triglycerides 75 mg/dL (2-149) 01/15/19 17:52 Cholesterol 149 mg/dL (50-199) 01/15/19 17:52 84 mg/dL (50-130) 01/15/19 17:52 65 mg/dL (40-59) H 01/15/19 17:52 2.29 % 01/15/19 17:52 See scanned report 01/19/19 Unknown Yellow (Yellow) 01/21/19 16:10 Clear (Clear) 01/21/19 16:10 6.0 (5.0-7.0) 01/21/19 16:10 Ur Specific [place] 1.015 (1.003-1.030) 01/21/19 16:10 <15 mg/dl mg/dL (Negative) 01/21/19 16:10 Neg mg/dL (Negative) 01/21/19 16:10 Neg mg/dL (Negative) 01/21/19 16:10 Neg (Negative) 01/21/19 16:10 Neg (Negative) 01/21/19 16:10 Neg (Negative) 01/21/19 16:10 2.0 mg/dL (<2.0) 01/21/19 16:10 Ur Leukocyte Esterase Neg (Negative) 01/21/19 16:10 1.0 /HPF (0.0-6.0) 01/21/19 16:10 5.0 /HPF (0.0-6.0) 01/21/19 16:10 Presumptive negative 01/15/19 16:30 Presumptive negative 01/15/19 16:30 Ur Barbiturates Screen Presumptive negative 01/15/19 16:30 Ur Phencyclidine Scrn Presumptive negative 01/15/19 16:30 Ur Amphetamines Screen Presumptive negative 01/15/19 16:30 U Benzodiazepines Scrn Presumptive negative 01/15/19 16:30 Presumptive negative 01/15/19 16:30 U Marijuana (THC) Screen Presumptive negative 01/15/19 16:30 Disclamer 01/15/19 16:30 Heparin-induced Plt Ab Negative (Negative) 01/19/19 Unknown UF Heparin High Dose 3 % Release 01/19/19 Unknown JOSEFA UFH Low Dose 0.1 4 % Release 01/19/19 Unknown JOSEFA UFH Low Dose 0.5 5 % Release 01/19/19 Unknown C. difficile Tox (PCR) Negative (Negative) 01/16/19 00:00 Active Medications - Current Medications Current Medications: Generic Name Dose Route Start Last Admin Trade Name Freq PRN Reason Stop Dose Admin Acetaminophen 650 mg 01/16/19 09:37 01/20/19 00:24 Tylenol PO 650 mg Q4H PRN Administration Fever >101 Albuterol/Ipratropium 1 ampul 01/15/19 14:00 01/26/19 07:50 Duoneb *Not For Prn Use* IH 1 ampul Q6HRT DEON Administration Amlodipine Besylate 10 mg 01/24/19 12:00 01/25/19 11:05 Norvasc PO Not Given DAILY DEON Lipase/Protease/Amylase 1 each 01/15/19 14:37 Pancreaze 10,500 Unit FEEDTUBE PRN PRN For Clogged Feeding Tube Aspirin 81 mg 01/16/19 10:00 01/25/19 11:04 Baby Aspirin [facility] Given [facility] Atorvastatin Calcium 20 mg 01/16/19 22:00 01/25/19 21:36 Lipitor PO 20 mg QHS DOEN Administration Carvedilol 12.5 mg 01/24/19 22:00 01/25/19 21:36 Coreg PO 12.5 mg BID DEON Administration Famotidine 20 mg 01/22/19 10:00 01/25/19 11:05 Pepcid PO Not Given [facility] Fondaparinux 2.5 mg 01/20/19 10:00 01/25/19 11:04 Arixtra SUB-Q Not Given QDAY DEON Furosemide 20 mg 01/19/19 18:00 01/26/19 05:23 Lasix PO 20 mg 0600,1800 DEON Administration Ceftriaxone Sodium 2 gm in 100 mls @ 200 mls/hr 01/20/19 15:00 01/25/19 09:52 Rocephin/Ns 2 Gm/100 Ml IV 200 mls/hr Q24HR DEON Administration Protocol Metronidazole 500 mg in 100 mls @ 100 mls/hr 01/20/19 16:00 01/26/19 05:25 Flagyl 500 Mg/100 Ml IV 100 mls/hr Q8HR DEON Administration Protocol Insulin Human Lispro 0 unit 01/22/19 14:00 01/26/19 05:27 Humalog SUB-Q Not Given Q6HR DEON Protocol Levetiracetam 750 mg 01/18/19 10:00 01/25/19 21:38 Keppra PO 750 mg BID DEON Administration Modafinil 100 mg 01/20/19 10:00 01/25/19 11:05 Provigil PO Not Given QAM DEON Simple Syrup 15 ml 01/15/19 14:37 Simple Syrup FEEDTUBE PRN PRN Hypoglycemia Simple Syrup 30 ml 01/15/19 14:37 Simple Syrup FEEDTUBE PRN PRN Hypoglycemia Sodium Bicarbonate 325 mg 01/15/19 14:37 Sodium Bicarbonate FEEDTUBE PRN PRN For Clogged Feeding Tube Sodium Chloride 10 ml 01/15/19 22:00 01/25/19 21:51 Sodium Chloride Flush Syringe 10 Ml IV 10 ml BID DEON Administration Sodium Chloride 10 ml 01/15/19 10:34 Sodium Chloride Flush Syringe 10 Ml IV PRN PRN LINE FLUSH Triamcinolone Acetonide 1 applic 01/24/19 14:00 01/25/19 21:50 Kenalog TP 1 applic BID DEON Administration Nutrition/Malnutrition Assess - Dietary Evaluation Nutrition/Malnutrition Findings: Nutrition Notes Start: 01/15/19 14:28 Freq: Status: Active Protocol: Document 01/25/19 08:40 CP (Rec: 01/25/19 08:41 CP [id number]) Co-Sign 01/25/19 08:40 LP Nutrition Notes Initial or Follow up Brief Note Current Diagnosis COPD,Coronary Artery Disease, Hypertension,Heart Failure Other Pertinent Diagnosis s/p cardiorespiratory arrest ( at home) Current Diet NPO After Midnight Subjective/Other Information F/U for TF tolerance. Pt is currently NPO after midnight awaiting operation per MD note . Nutrition Intervention Follow-Up By: 01/29/19 Additional Comments F/U: TF to start/TF tolerance
--- NOTE | 2019-01-26 09:07 | Progress Note ---
Assessment and Plan s/p Cardiopulmonary arrest, out of hospital, PEA with ROSC Acute hypoxic-hypercapnic respiratory failure on MVS s/p Trachesotomy Acute encephalopathy, metabolic Acute metabolic acidosis Acute renal injury Seizure activity Right lower lobe infiltrate, probably aspiration Pyrexia with leukocytosis Pulmonary HTN RVSP 60 Systolic heart failure EF 35-40% Thrombocytopenia Pyrexia Bowel rest, NGT to LIS Serial abdominal exams and KUB Bowel regimen IR fro PEG placement once ileus has resolved. -Continue full MVS, weaning trials -Trachesotomy care per RT -Wean supplemental oxygen to keep O2 sats 88-90% -Lung protective strategies -Oxygen restrictive strategies -PRN ABGs/CXR -VAP bundle addressed -Monitor renal indices closely -Avoid nephrotoxic agents, adjust all medications for CrCL -Strict intake and output monitoring -Daily SAT & SBT -Sedation target for RASS 0 to -1 -Stress ulcer prophylaxis -VTE prophylaxis, -Tube feedings -Aspiration precautions -Accuchecks with glycemic control. Target glucose of 140-180 mg/dL -Bronchodilators with pulmonary hygiene per RT -Maintenance of sleep -wake cycle -Mobility as tolerated by hemodynamics -Influenza and pneumonia vaccination per protocol ..care plan discussed at length with RN/RT at the bedside PROGNOSIS:poor CONDITION: CRITICAL CODE STATUS: FULL CODE The high probability of a clinically significant, sudden or life-threatening deterioration of the [respiratory, neurology, renal] system(s) required my full and direct attention, intervention and personal management. The aggregate critical care time was [35] minutes without overlap. Time includes spent on; [x] Data Review and interpretation [x] Patient assessment and monitoring of vital signs [x] Documentation [x] Medication orders and management Subjective Date of service: 01/26/19 Principal diagnosis: OOH cardiac arrest; Acute hypoxemic-hypercapnic Resp failure; PNA Interval history: Patient is seen today for: OOH cardiopulmonary arrest with ROSC; Acute hypoxemic-hypercapnic respiratory failure on MVS; acute encephalopathy; aspiration pneumonia; Seen and examined at bedside; 24-hour events reviewed; nursing and respiratory care staff consulted; no adverse overnight events reported to me; no fevers, no vomiting,Continues to tolerate PSV trials, remains unresponsive s/p tracheostomy. Unable to get PEG done, secondary to ileus Objective Vital Signs - 12hr 01/25/19 01/25/19 01/25/19 21:36 22:00 23:00 Temperature Pulse Rate 88 88 81 Pulse Rate [ Anterior Left Throughout] Respiratory 13 12 Rate Respiratory Rate [Anterior Left Throughout ] Blood Pressure 141/72 136/76 112/60 O2 Sat by Pulse 100 100 Oximetry O2 Sat by Pulse Oximetry [ Assessment] 01/25/19 01/25/19 01/25/19 23:01 23:10 23:27 Temperature 98.2 F Pulse Rate 82 81 Pulse Rate [ Anterior Left Throughout] Respiratory 12 Rate Respiratory Rate [Anterior Left Throughout ] Blood Pressure 112/60 112/60 O2 Sat by Pulse 100 100 Oximetry O2 Sat by Pulse Oximetry [ Assessment] 01/25/19 01/26/19 01/26/19 23:32 00:00 01:00 Temperature Pulse Rate 82 84 Pulse Rate [ Anterior Left Throughout] Respiratory 12 11 L 12 Rate Respiratory Rate [Anterior Left Throughout ] Blood Pressure 120/65 125/71 O2 Sat by Pulse 97 100 100 Oximetry O2 Sat by Pulse Oximetry [ Assessment] 01/26/19 01/26/19 01/26/19 01:35 01:48 02:00 Temperature Pulse Rate 80 Pulse Rate [ 83 85 Anterior Left Throughout] Respiratory 12 Rate Respiratory 12 12 Rate [Anterior Left Throughout ] Blood Pressure 114/62 O2 Sat by Pulse 100 Oximetry O2 Sat by Pulse Oximetry [ Assessment] 01/26/19 01/26/19 01/26/19 02:59 03:00 03:52 Temperature 98.3 F Pulse Rate 84 81 Pulse Rate [ Anterior Left Throughout] Respiratory 11 L Rate Respiratory Rate [Anterior Left Throughout ] Blood Pressure 120/74 O2 Sat by Pulse 100 Oximetry O2 Sat by Pulse Oximetry [ Assessment] 01/26/19 01/26/19 01/26/19 03:55 04:00 04:14 Temperature Pulse Rate 79 82 Pulse Rate [ Anterior Left Throughout] Respiratory 12 12 Rate Respiratory Rate [Anterior Left Throughout ] Blood Pressure 118/68 118/68 O2 Sat by Pulse 100 100 100 Oximetry O2 Sat by Pulse Oximetry [ Assessment] 01/26/19 01/26/19 01/26/19 05:00 06:00 06:56 Temperature Pulse Rate 84 87 Pulse Rate [ Anterior Left Throughout] Respiratory 12 12 Rate Respiratory Rate [Anterior Left Throughout ] Blood Pressure 118/71 115/68 O2 Sat by Pulse 100 100 Oximetry O2 Sat by Pulse 99 Oximetry [ Assessment] 01/26/19 01/26/1919 07:50 07:54 08:00 Temperature 98.4 F Pulse Rate 85 Pulse Rate [ 84 86 Anterior Left Throughout] Respiratory 29 H Rate Respiratory 27 H 27 H Rate [Anterior Left Throughout ] Blood Pressure 121/76 O2 Sat by Pulse 100 Oximetry O2 Sat by Pulse Oximetry [ Assessment] Constitutional: no acute distress, other (elderly, atraumatic, normocephalic, chronically looking female) Eyes: non-icteric ENT: oropharynx moist, other (s/p tracheosotomy size #8 to MVS) Neck: supple, no lymphadenopathy, no JVD Effort: normal Ascultation: Bilateral: diminished breath sounds, rales (bases), rhonchi (scant), other (coarse breath sound bilaterally upper lobes anteriorly) Percussion: Bilateral: not dull Cardiovascular: regular rate and rhythm, other (tacycardia, S1,S2, no murmurs, gallops or rubs) Gastrointestinal: normoactive bowel sounds, soft, non-tender, non-distended Integumentary: normal Extremities: no cyanosis, no edema, pulses normal, no ischemia or petechiae Neurologic: unable to assess Psychiatric: other (unable to assess secondary to mental status) CBC and BMP: 01/28/19 12:01 01/28/19 12:01 ABG, PT/INR, D-dimer: ABG POC ABG pH 7.522 (7.35-7.45) H 01/22/19 04:35 POC ABG pCO2 36.3 (35-45) 01/22/19 04:35 POC ABG pO2 94 (80-105) 01/22/19 04:35 POC ABG HCO3 29.8 (22-26 mml/L) 01/22/19 04:35 POC ABG Total CO2 31 (23-27mmol/L) 01/22/19 04:35 POC ABG O2 Sat 98 01/22/19 04:35 PT/INR, D-dimer PT 18.8 Sec. (12.2-14.9) H 01/25/19 05:15 INR 1.47 (0.87-1.13) H 01/25/19 05:15 Abnormal lab findings: Abnormal Labs 01/15/19 01/15/19 01/15/19 07:50 07:50 07:50 WBC RBC Hgb Hct MCV 99 H RDW 16.7 H Plt Count 122 L Lymph % (Auto) Lymph # Seg Neutrophils % Seg Neuts % (Manual) Lymphocytes % (Manual) Seg Neutrophils # Seg Neutrophils # Man Lymphocytes # (Manual) PT 19.7 H INR 1.56 H POC ABG pH POC ABG pCO2 POC ABG pO2 Sodium Potassium Chloride Carbon Dioxide 11 L BUN Creatinine 1.4 H Glucose 268 H POC Glucose Calcium AST 57 H Total Creatine Kinase CK-MB (CK-2) Troponin T NT-Pro-B Natriuret Pep 5346 H Total Protein Albumin 3.6 L HDL Cholesterol 01/15/19 01/15/19 01/15/19 09:56 11:53 17:52 WBC RBC Hgb Hct MCV RDW Plt Count Lymph % (Auto) Lymph # Seg Neutrophils % Seg Neuts % (Manual) Lymphocytes % (Manual) Seg Neutrophils # Seg Neutrophils # Man Lymphocytes # (Manual) PT INR POC ABG pH 7.186 L POC ABG pCO2 46.4 H POC ABG pO2 Sodium Potassium Chloride Carbon Dioxide BUN Creatinine Glucose POC Glucose Calcium AST Total Creatine Kinase 683 H 1430 H CK-MB (CK-2) 9.5 H 13.5 H Troponin T 0.036 H D NT-Pro-B Natriuret Pep Total Protein Albumin HDL Cholesterol 65 H 01/15/19 01/15/19 01/16/19 18:31 21:46 02:14 WBC RBC Hgb Hct MCV RDW Plt Count Lymph % (Auto) Lymph # Seg Neutrophils % Seg Neuts % (Manual) Lymphocytes % (Manual) Seg Neutrophils # Seg Neutrophils # Man Lymphocytes # (Manual) PT INR POC ABG pH POC ABG pCO2 31.8 L POC ABG pO2 167 H Sodium Potassium Chloride Carbon Dioxide BUN Creatinine Glucose POC Glucose 134 H 136 H Calcium AST Total Creatine Kinase CK-MB (CK-2) Troponin T NT-Pro-B Natriuret Pep Total Protein Albumin HDL Cholesterol 01/16/19 01/16/19 01/16/19 04:16 04:16 05:05 WBC 11.4 H RBC Hgb Hct MCV RDW Plt Count 105 L Lymph % (Auto) Lymph # Seg Neutrophils % Seg Neuts % (Manual) 74.0 H Lymphocytes % (Manual) 2.0 L Seg Neutrophils # Seg Neutrophils # Man 8.4 H Lymphocytes # (Manual) 0.2 L PT INR POC ABG pH 7.458 H POC ABG pCO2 31.4 L POC ABG pO2 135 H Sodium Potassium 3.3 L Chloride Carbon Dioxide 21 L D BUN 24 H Creatinine 1.5 H Glucose 141 H POC Glucose Calcium 8.1 L AST 71 H Total Creatine Kinase CK-MB (CK-2) Troponin T NT-Pro-B Natriuret Pep Total Protein 6.2 L Albumin 3.5 L HDL Cholesterol 01/16/19 01/16/19 01/16/19 05:24 13:42 21:08 WBC RBC Hgb Hct MCV RDW Plt Count Lymph % (Auto) Lymph # Seg Neutrophils % Seg Neuts % (Manual) Lymphocytes % (Manual) Seg Neutrophils # Seg Neutrophils # Man Lymphocytes # (Manual) PT INR POC ABG pH POC ABG pCO2 POC ABG pO2 Sodium Potassium Chloride Carbon Dioxide BUN Creatinine Glucose POC Glucose 137 H 129 H 122 H Calcium AST Total Creatine Kinase CK-MB (CK-2) Troponin T NT-Pro-B Natriuret Pep Total Protein Albumin HDL Cholesterol 01/17/19 01/17/19 01/17/19 02:18 04:23 05:13 WBC RBC Hgb Hct MCV RDW Plt Count Lymph % (Auto) Lymph # Seg Neutrophils % Seg Neuts % (Manual) Lymphocytes % (Manual) Seg Neutrophils # Seg Neutrophils # Man Lymphocytes # (Manual) PT INR POC ABG pH 7.479 H POC ABG pCO2 30.0 L POC ABG pO2 141 H Sodium Potassium Chloride Carbon Dioxide BUN Creatinine Glucose POC Glucose 139 H 128 H Calcium AST Total Creatine Kinase CK-MB (CK-2) Troponin T NT-Pro-B Natriuret Pep Total Protein Albumin HDL Cholesterol 01/17/19 01/17/19 01/17/19 10:22 15:59 18:45 WBC RBC Hgb Hct MCV RDW Plt Count Lymph % (Auto) Lymph # Seg Neutrophils % Seg Neuts % (Manual) Lymphocytes % (Manual) Seg Neutrophils # Seg Neutrophils # Man Lymphocytes # (Manual) PT INR POC ABG pH POC ABG pCO2 POC ABG pO2 Sodium Potassium Chloride Carbon Dioxide BUN Creatinine Glucose POC Glucose 133 H 121 H 106 H Calcium AST Total Creatine Kinase CK-MB (CK-2) Troponin T NT-Pro-B Natriuret Pep Total Protein Albumin HDL Cholesterol 01/17/19 01/18/19 01/18/19 23:35 04:21 04:21 WBC RBC 3.27 L Hgb 9.6 L Hct 29.9 L MCV RDW Plt Count 79 L Lymph % (Auto) 6.0 L Lymph # 0.5 L Seg Neutrophils % 89.2 H Seg Neuts % (Manual) Lymphocytes % (Manual) Seg Neutrophils # 8.1 H Seg Neutrophils # Man Lymphocytes # (Manual) PT INR POC ABG pH POC ABG pCO2 POC ABG pO2 Sodium Potassium Chloride Carbon Dioxide BUN 28 H Creatinine 1.3 H Glucose 129 H POC Glucose 121 H Calcium AST 120 H Total Creatine Kinase CK-MB (CK-2) Troponin T NT-Pro-B Natriuret Pep Total Protein 5.1 L Albumin 3.0 L HDL Cholesterol 01/18/19 01/18/19 01/18/19 04:21 04:36 05:43 WBC RBC Hgb Hct MCV RDW Plt Count Lymph % (Auto) Lymph # Seg Neutrophils % Seg Neuts % (Manual) Lymphocytes % (Manual) Seg Neutrophils # Seg Neutrophils # Man Lymphocytes # (Manual) PT INR POC ABG pH 7.485 H POC ABG pCO2 31.0 L POC ABG pO2 126 H Sodium Potassium Chloride Carbon Dioxide BUN 28 H Creatinine 1.3 H Glucose 128 H POC Glucose 142 H Calcium AST Total Creatine Kinase CK-MB (CK-2) Troponin T NT-Pro-B Natriuret Pep Total Protein Albumin HDL Cholesterol 01/18/19 01/18/19 01/18/19 12:04 18:16 20:47 WBC RBC Hgb Hct MCV RDW Plt Count Lymph % (Auto) Lymph # Seg Neutrophils % Seg Neuts % (Manual) Lymphocytes % (Manual) Seg Neutrophils # Seg Neutrophils # Man Lymphocytes # (Manual) PT INR POC ABG pH 7.489 H POC ABG pCO2 32.8 L POC ABG pO2 Sodium Potassium Chloride Carbon Dioxide BUN Creatinine Glucose POC Glucose 113 H 119 H Calcium AST Total Creatine Kinase CK-MB (CK-2) Troponin T NT-Pro-B Natriuret Pep Total Protein Albumin HDL Cholesterol 01/19/19 01/19/19 01/19/19 00:40 05:35 11:39 WBC RBC Hgb Hct MCV RDW Plt Count Lymph % (Auto) Lymph # Seg Neutrophils % Seg Neuts % (Manual) Lymphocytes % (Manual) Seg Neutrophils # Seg Neutrophils # Man Lymphocytes # (Manual) PT INR POC ABG pH POC ABG pCO2 POC ABG pO2 Sodium Potassium Chloride Carbon Dioxide BUN Creatinine Glucose POC Glucose 137 H 157 H 155 H Calcium AST Total Creatine Kinase CK-MB (CK-2) Troponin T NT-Pro-B Natriuret Pep Total Protein Albumin HDL Cholesterol 01/19/19 01/19/19 01/19/19 18:24 21:08 23:33 WBC RBC Hgb Hct MCV RDW Plt Count Lymph % (Auto) Lymph # Seg Neutrophils % Seg Neuts % (Manual) Lymphocytes % (Manual) Seg Neutrophils # Seg Neutrophils # Man Lymphocytes # (Manual) PT INR POC ABG pH 7.508 H POC ABG pCO2 34.2 L POC ABG pO2 Sodium Potassium Chloride Carbon Dioxide BUN Creatinine Glucose POC Glucose 145 H 156 H Calcium AST Total Creatine Kinase CK-MB (CK-2) Troponin T NT-Pro-B Natriuret Pep Total Protein Albumin HDL Cholesterol 01/20/19 01/20/19 01/20/19 05:12 11:42 17:36 WBC RBC Hgb Hct MCV RDW Plt Count Lymph % (Auto) Lymph # Seg Neutrophils % Seg Neuts % (Manual) Lymphocytes % (Manual) Seg Neutrophils # Seg Neutrophils # Man Lymphocytes # (Manual) PT INR POC ABG pH POC ABG pCO2 POC ABG pO2 Sodium Potassium Chloride Carbon Dioxide BUN Creatinine Glucose POC Glucose 152 H 159 H 169 H Calcium AST Total Creatine Kinase CK-MB (CK-2) Troponin T NT-Pro-B Natriuret Pep Total Protein Albumin HDL Cholesterol 01/20/19 01/21/19 01/21/19 23:29 05:30 05:34 WBC RBC Hgb Hct MCV RDW Plt Count Lymph % (Auto) Lymph # Seg Neutrophils % Seg Neuts % (Manual) Lymphocytes % (Manual) Seg Neutrophils # Seg Neutrophils # Man Lymphocytes # (Manual) PT INR POC ABG pH 7.616 H POC ABG pCO2 POC ABG pO2 71 L Sodium Potassium Chloride Carbon Dioxide BUN Creatinine Glucose POC Glucose 139 H 138 H Calcium AST Total Creatine Kinase CK-MB (CK-2) Troponin T NT-Pro-B Natriuret Pep Total Protein Albumin HDL Cholesterol 01/21/19 01/21/19 01/22/19 12:41 18:47 00:07 WBC RBC Hgb Hct MCV RDW Plt Count Lymph % (Auto) Lymph # Seg Neutrophils % Seg Neuts % (Manual) Lymphocytes % (Manual) Seg Neutrophils # Seg Neutrophils # Man Lymphocytes # (Manual) PT INR POC ABG pH POC ABG pCO2 POC ABG pO2 Sodium Potassium Chloride Carbon Dioxide BUN Creatinine Glucose POC Glucose 154 H 174 H 163 H Calcium AST Total Creatine Kinase CK-MB (CK-2) Troponin T NT-Pro-B Natriuret Pep Total Protein Albumin HDL Cholesterol 01/22/19 01/22/19 01/22/19 04:35 05:46 12:18 WBC RBC Hgb Hct MCV RDW Plt Count Lymph % (Auto) Lymph # Seg Neutrophils % Seg Neuts % (Manual) Lymphocytes % (Manual) Seg Neutrophils # Seg Neutrophils # Man Lymphocytes # (Manual) PT INR POC ABG pH 7.522 H POC ABG pCO2 POC ABG pO2 Sodium Potassium Chloride Carbon Dioxide BUN Creatinine Glucose POC Glucose 159 H 137 H Calcium AST Total Creatine Kinase CK-MB (CK-2) Troponin T NT-Pro-B Natriuret Pep Total Protein Albumin HDL Cholesterol 01/22/19 01/22/19 01/22/19 15:00 15:00 18:13 WBC RBC 2.92 L Hgb 8.4 L Hct 25.6 L MCV RDW Plt Count Lymph % (Auto) Lymph # Seg Neutrophils % Seg Neuts % (Manual) Lymphocytes % (Manual) Seg Neutrophils # Seg Neutrophils # Man Lymphocytes # (Manual) PT INR POC ABG pH POC ABG pCO2 POC ABG pO2 Sodium Potassium Chloride 97.0 L Carbon Dioxide BUN 37 H Creatinine Glucose 162 H POC Glucose 159 H Calcium 8.2 L AST Total Creatine Kinase CK-MB (CK-2) Troponin T NT-Pro-B Natriuret Pep Total Protein Albumin HDL Cholesterol 01/22/19 01/23/19 01/23/19 22:45 00:01 05:10 WBC RBC 2.92 L Hgb 8.5 L Hct 25.4 L MCV RDW Plt Count Lymph % (Auto) 6.3 L Lymph # 0.6 L Seg Neutrophils % 86.3 H Seg Neuts % (Manual) Lymphocytes % (Manual) Seg Neutrophils # 8.9 H Seg Neutrophils # Man Lymphocytes # (Manual) PT INR POC ABG pH POC ABG pCO2 POC ABG pO2 Sodium Potassium Chloride Carbon Dioxide BUN Creatinine Glucose POC Glucose 178 H 155 H Calcium AST Total Creatine Kinase CK-MB (CK-2) Troponin T NT-Pro-B Natriuret Pep Total Protein Albumin HDL Cholesterol 01/23/19 01/23/19 01/23/19 11:31 17:49 Unknown WBC RBC Hgb Hct MCV RDW Plt Count Lymph % (Auto) Lymph # Seg Neutrophils % Seg Neuts % (Manual) Lymphocytes % (Manual) Seg Neutrophils # Seg Neutrophils # Man Lymphocytes # (Manual) PT INR POC ABG pH POC ABG pCO2 POC ABG pO2 Sodium Potassium Chloride 95.4 L Carbon Dioxide BUN 37 H Creatinine Glucose 144 H POC Glucose 161 H 142 H Calcium AST 88 H Total Creatine Kinase CK-MB (CK-2) Troponin T NT-Pro-B Natriuret Pep Total Protein 6.0 L Albumin 2.9 L HDL Cholesterol 01/24/19 01/24/19 01/24/19 00:21 05:36 12:35 WBC RBC Hgb Hct MCV RDW Plt Count Lymph % (Auto) Lymph # Seg Neutrophils % Seg Neuts % (Manual) Lymphocytes % (Manual) Seg Neutrophils # Seg Neutrophils # Man Lymphocytes # (Manual) PT INR POC ABG pH POC ABG pCO2 POC ABG pO2 Sodium Potassium Chloride Carbon Dioxide BUN Creatinine Glucose POC Glucose 163 H 147 H 263 H Calcium AST Total Creatine Kinase CK-MB (CK-2) Troponin T NT-Pro-B Natriuret Pep Total Protein Albumin HDL Cholesterol 01/24/19 01/24/19 01/24/19 17:46 23:07 Unknown WBC RBC 2.90 L Hgb 8.3 L Hct 25.0 L MCV RDW Plt Count Lymph % (Auto) Lymph # Seg Neutrophils % Seg Neuts % (Manual) Lymphocytes % (Manual) Seg Neutrophils # Seg Neutrophils # Man Lymphocytes # (Manual) PT INR POC ABG pH POC ABG pCO2 POC ABG pO2 Sodium Potassium Chloride Carbon Dioxide BUN Creatinine Glucose POC Glucose 161 H 167 H Calcium AST Total Creatine Kinase CK-MB (CK-2) Troponin T NT-Pro-B Natriuret Pep Total Protein Albumin HDL Cholesterol 01/24/19 01/25/19 01/25/19 Unknown 05:15 05:15 WBC RBC 2.90 L Hgb 8.4 L Hct 25.2 L MCV RDW Plt Count Lymph % (Auto) Lymph # Seg Neutrophils % Seg Neuts % (Manual) Lymphocytes % (Manual) Seg Neutrophils # Seg Neutrophils # Man Lymphocytes # (Manual) PT INR POC ABG pH POC ABG pCO2 POC ABG pO2 Sodium 134 L 135 L Potassium Chloride 94.4 L 94.0 L Carbon Dioxide BUN 35 H 35 H Creatinine Glucose 151 H 128 H POC Glucose Calcium AST Total Creatine Kinase CK-MB (CK-2) Troponin T NT-Pro-B Natriuret Pep Total Protein Albumin HDL Cholesterol 01/25/19 01/25/19 01/25/19 05:15 05:35 11:09 WBC RBC Hgb Hct MCV RDW Plt Count Lymph % (Auto) Lymph # Seg Neutrophils % Seg Neuts % (Manual) Lymphocytes % (Manual) Seg Neutrophils # Seg Neutrophils # Man Lymphocytes # (Manual) PT 18.8 H INR 1.47 H POC ABG pH POC ABG pCO2 POC ABG pO2 Sodium Potassium Chloride Carbon Dioxide BUN Creatinine Glucose POC Glucose 126 H 149 H Calcium AST Total Creatine Kinase CK-MB (CK-2) Troponin T NT-Pro-B Natriuret Pep Total Protein Albumin HDL Cholesterol 01/25/19 01/25/19 01/26/19 17:24 23:41 00:09 WBC RBC Hgb Hct MCV RDW Plt Count Lymph % (Auto) Lymph # Seg Neutrophils % Seg Neuts % (Manual) Lymphocytes % (Manual) Seg Neutrophils # Seg Neutrophils # Man Lymphocytes # (Manual) PT INR POC ABG pH POC ABG pCO2 POC ABG pO2 Sodium Potassium Chloride Carbon Dioxide BUN Creatinine Glucose POC Glucose 140 H 142 H 156 H Calcium AST Total Creatine Kinase CK-MB (CK-2) Troponin T NT-Pro-B Natriuret Pep Total Protein Albumin HDL Cholesterol 01/26/19 01/26/19 01/26/19 05:05 06:35 06:35 WBC RBC 2.83 L Hgb 8.1 L Hct 24.4 L MCV RDW Plt Count Lymph % (Auto) Lymph # Seg Neutrophils % Seg Neuts % (Manual) Lymphocytes % (Manual) Seg Neutrophils # Seg Neutrophils # Man Lymphocytes # (Manual) PT INR POC ABG pH POC ABG pCO2 POC ABG pO2 Sodium Potassium Chloride 96.9 L Carbon Dioxide BUN 29 H Creatinine Glucose 141 H POC Glucose 159 H Calcium 8.3 L AST Total Creatine Kinase CK-MB (CK-2) Troponin T NT-Pro-B Natriuret Pep Total Protein Albumin HDL Cholesterol Chest x-ray: image reviewed Additional Studies: KUB- dilated loops of bowel Allied health notes reviewed: nursing
[2019-01-26] MEDS: PEPCID PO SCH (10:52)
[2019-01-26] MEDS: BABY ASPIRIN PO SCH (10:52)
[2019-01-26] MEDS: KEPPRA PO SCH ×2 (10:52→22:09)
[2019-01-26] MEDS: ARIXTRA SUB-Q SCH (10:52)
[2019-01-26] MEDS: PROVIGIL PO SCH (10:52)
[2019-01-26] MEDS: ROCEPHIN/NS 2 GM/100 ML 2 GM/100 ML BAG IV SCH (10:55)
[2019-01-26] MEDS: NORVASC PO SCH (10:55)
[2019-01-26] MEDS: COREG PO SCH ×2 (10:55→22:10)
[2019-01-26] MEDS: KENALOG TP SCH ×2 (11:02→22:09)
[2019-01-26] MEDS: SODIUM CHLORIDE FLUSH SYRINGE 10 ML IV SCH ×2 (11:05→22:09)
[2019-01-26] MEDS: D5W/0.45% NACL/KCL 20 MEQ 20 MEQ/1,000 ML BAG IV SCH (14:21)
--- NOTE | 2019-01-26 18:05 | Progress Note ---
Assessment and Plan - Patient Problems (1) Respiratory arrest Current Visit: Yes Status: Acute Plan to address problem: s/p perc trach with bronch guidance - 01/25/19 - POD#1. Pt appears to be doing well. Routine trach care. Recommend that IR be consulted for G-tube placement due to inability to safely transilluminate the stomach. Please call with questions. Will sign off. Subjective Date of service: 01/26/19 Patient Reports: Positive: other (no events o/n with trach. ) Objective Vital Signs - 12hr 01/26/19 01/26/19 01/26/19 06:56 07:00 07:50 Temperature Pulse Rate 88 Pulse Rate [ 84 Anterior Left Throughout] Respiratory 12 Rate Respiratory 27 H Rate [Anterior Left Throughout ] Blood Pressure 120/69 O2 Sat by Pulse 99 Oximetry O2 Sat by Pulse 99 Oximetry [ Assessment] 01/26/19 01/26/19 01/26/19 07:54 08:00 09:00 Temperature 98.4 F Pulse Rate 85 86 85 Pulse Rate [ 86 Anterior Left Throughout] Respiratory 29 H 30 H 30 H Rate Respiratory 27 H Rate [Anterior Left Throughout ] Blood Pressure 121/76 124/77 134/74 O2 Sat by Pulse 100 100 100 Oximetry O2 Sat by Pulse Oximetry [ Assessment] 01/26/19 01/26/19 01/26/19 10:00 10:55 11:00 Temperature Pulse Rate 85 87 86 Pulse Rate [ Anterior Left Throughout] Respiratory 24 21 Rate Respiratory Rate [Anterior Left Throughout ] Blood Pressure 126/73 125/73 125/73 O2 Sat by Pulse 100 100 Oximetry O2 Sat by Pulse Oximetry [ Assessment] 01/26/19 01/26/19 01/26/19 11:56 12:00 13:00 Temperature 98.7 F Pulse Rate 85 85 80 Pulse Rate [ Anterior Left Throughout] Respiratory 24 26 H 28 H Rate Respiratory Rate [Anterior Left Throughout ] Blood Pressure 126/71 100/60 100/64 O2 Sat by Pulse 100 100 100 Oximetry O2 Sat by Pulse Oximetry [ Assessment] 01/26/19 01/26/19 01/26/19 14:00 14:32 15:00 Temperature Pulse Rate 80 79 Pulse Rate [ 78 Anterior Left Throughout] Respiratory 33 H 12 Rate Respiratory 12 Rate [Anterior Left Throughout ] Blood Pressure 99/58 99/58 O2 Sat by Pulse 100 100 Oximetry O2 Sat by Pulse Oximetry [ Assessment] 01/26/19 01/26/19 01/26/19 16:00 16:39 16:43 Temperature 98.2 F Pulse Rate 79 81 Pulse Rate [ Anterior Left Throughout] Respiratory 39 H Rate Respiratory Rate [Anterior Left Throughout ] Blood Pressure 124/70 121/71 O2 Sat by Pulse 100 97 Oximetry O2 Sat by Pulse 98 Oximetry [ Assessment] - General physical appearance no distress, no pain - Neck other (trach in place. No drainage. good air movement bilaterally. ) - Labs 01/26/19 06:35 01/26/19 06:35 Diabetes panel 01/26/19 Range/Units 06:35 Sodium 138 (137-145) mmol/L Potassium 4.1 (3.6-5.0) mmol/L Chloride 96.9 L (98-107) mmol/L Carbon Dioxide 29 (22-30) mmol/L BUN 29 H (7-17) mg/dL Creatinine 0.7 (0.7-1.2) mg/dL Glucose 141 H (65-100) mg/dL Calcium 8.3 L (8.4-10.2) mg/dL Calcium panel 01/26/19 Range/Units 06:35 Calcium 8.3 L (8.4-10.2) mg/dL Pituitary panel 01/26/19 Range/Units 06:35 Sodium 138 (137-145) mmol/L Potassium 4.1 (3.6-5.0) mmol/L Chloride 96.9 L (98-107) mmol/L Carbon Dioxide 29 (22-30) mmol/L BUN 29 H (7-17) mg/dL Creatinine 0.7 (0.7-1.2) mg/dL Glucose 141 H (65-100) mg/dL Calcium 8.3 L (8.4-10.2) mg/dL Adrenal panel 01/26/19 Range/Units 06:35 Sodium 138 (137-145) mmol/L Potassium 4.1 (3.6-5.0) mmol/L Chloride 96.9 L (98-107) mmol/L Carbon Dioxide 29 (22-30) mmol/L BUN 29 H (7-17) mg/dL Creatinine 0.7 (0.7-1.2) mg/dL Glucose 141 H (65-100) mg/dL Calcium 8.3 L (8.4-10.2) mg/dL
[2019-01-27] MEDS: HumaLOG SUB-Q SCH ×5 (00:05→23:30)
[2019-01-27] MEDS: DUONEB *Not for PRN Use IH SCH ×4 (01:58→19:03)
[2019-01-27 04:07] LABS: Hematocrit 24.8 % (30.3-42.9); Hemoglobin 8.3 gm/dl (10.1-14.3); Mean Corpuscular HGB Conc 33 % (30-34); Mean Corpuscular Volume 87 fl (79-97); Platelet Count 321 K/mm3 (140-440); Red Blood Count 2.85 M/mm3 (3.65-5.03)
[2019-01-27 04:21] LABS: BUN/Creatinine Ratio 37; Blood Urea Nitrogen 26 mg/dL (7-17); Calcium 8.7 mg/dL (8.4-10.2); Hemolysis Index 0
[2019-01-27] MEDS: LASIX PO SCH ×2 (06:36→17:43)
--- NOTE | 2019-01-27 09:06 | Progress Note ---
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 supportive care Neurology following Sepsis due to pneumonia On iv Abx. ID Physician following Pneumonia CARMELINA due to ATN Improving Seizure activity COPD/Emphesema Not on home Oxygen History of stroke in 1982 Full code status Prognosis guarded The high probability of a clinically significant, sudden or life threatening deterioration of the [3] system(s) required my full and direct attention, intervention and personal management. The aggregate critical care time was [33] minutes. This time is in addition to time spent performing reported procedures but includes the following: [x] Data Review and interpretation [x] Patient assessment and monitoring of vital signs [x] Documentation [x] Medication orders and management History Interval history: Still intubated Still unresponsive Tracheostomy done 01/25 PEG not done Hospitalist Physical - Physical exam Narrative exam: Gen: Not in acute distres HEENT: Normocephalic, atraumatic Neck: supple, no JVD, tracheostomy midline Heart: S1 and S2 reg, no murmurs, rubs or gallop Lungs: Clear, no crackles, no wheeze Abd: soft, non tender, distended, BS present Ext: No edema, no clubbing, no cyanosis, Neuro: Comatose, Not following commands - Constitutional Vitals: Temp Pulse Resp BP Pulse Ox 97.9 F 79 27 H 139/72 98 01/27/19 03:45 01/27/19 08:22 01/27/19 08:22 01/27/19 08:22 01/27/19 08:22 General appearance: Present: no acute distress, other (intubated) Results - Labs CBC & Chem 7: 01/27/19 03:30 01/27/19 03:30 Labs: Laboratory Last Values WBC 9.6 K/mm3 (4.5-11.0) 01/27/19 03:30 RBC 2.85 M/mm3 (3.65-5.03) L 01/27/19 03:30 Hgb 8.3 gm/dl (10.1-14.3) L 01/27/19 03:30 Hct 24.8 % (30.3-42.9) L 01/27/19 03:30 MCV 87 fl (79-97) 01/27/19 03:30 MCH 29 pg (28-32) 01/27/19 03:30 MCHC 33 % (30-34) 01/27/19 03:30 RDW 14.0 % (13.2-15.2) 01/27/19 03:30 Plt Count 321 K/mm3 (140-440) 01/27/19 03:30 Lymph % (Auto) 6.3 % (13.4-35.0) L 01/23/19 00:01 [place] % (Auto) 6.6 % (0.0-7.3) 01/23/19 00:01 Eos % (Auto) 0.5 % (0.0-4.3) 01/23/19 00:01 Baso % (Auto) 0.3 % (0.0-1.8) 01/23/19 00:01 Lymph # 0.6 K/mm3 (1.2-5.4) L 01/23/19 00:01 [place] # 0.7 K/mm3 (0.0-0.8) 01/23/19 00:01 Eos # 0.1 K/mm3 (0.0-0.4) 01/23/19 00:01 Baso # 0.0 K/mm3 (0.0-0.1) 01/23/19 00:01 Add Manual Diff Complete 01/16/19 04:16 Total Counted 100 01/16/19 04:16 Seg Neutrophils % 86.3 % (40.0-70.0) H 01/23/19 00:01 Seg Neuts % (Manual) 74.0 % (40.0-70.0) H 01/16/19 04:16 22.0 % 01/16/19 04:16 2.0 % (13.4-35.0) L 01/16/19 04:16 Reactive Lymphs % (Man) 0 % 01/16/19 04:16 2.0 % (0.0-7.3) 01/16/19 04:16 0 % (0.0-4.3) 01/16/19 04:16 0 % (0.0-1.8) 01/16/19 04:16 0 % 01/16/19 04:16 0 % 01/16/19 04:16 0 % 01/16/19 04:16 0 % 01/16/19 04:16 Nucleated RBC % Not Reportable 01/16/19 04:16 Seg Neutrophils # 8.9 K/mm3 (1.8-7.7) H 01/23/19 00:01 Seg Neutrophils # Man 8.4 K/mm3 (1.8-7.7) H 01/16/19 04:16 Band Neutrophils # 2.5 K/mm3 01/16/19 04:16 0.2 K/mm3 (1.2-5.4) L 01/16/19 04:16 Abs React Lymphs (Man) 0.0 K/mm3 01/16/19 04:16 0.2 K/mm3 (0.0-0.8) 01/16/19 04:16 0.0 K/mm3 (0.0-0.4) 01/16/19 04:16 0.0 K/mm3 (0.0-0.1) 01/16/19 04:16 0.0 K/mm3 01/16/19 04:16 0.0 K/mm3 01/16/19 04:16 0.0 K/mm3 01/16/19 04:16 Blast Cells # 0.0 K/mm3 01/16/19 04:16 WBC Morphology Not Reportable 01/16/19 04:16 Hypersegmented Neuts Not Reportable 01/16/19 04:16 Hyposegmented Neuts Not Reportable 01/16/19 04:16 Hypogranular Neuts Not Reportable 01/16/19 04:16 Not Reportable 01/16/19 04:16 Not Reportable 01/16/19 04:16 Not Reportable 01/16/19 04:16 Not Reportable 01/16/19 04:16 Not Reportable 01/16/19 04:16 Not Reportable 01/16/19 04:16 Consistent w auto 01/16/19 04:16 Not Reportable 01/16/19 04:16 Plt Clumps, EDTA Not Reportable 01/16/19 04:16 Not Reportable 01/16/19 04:16 Not Reportable 01/16/19 04:16 Not Reportable 01/16/19 04:16 Plt Morphology Comment Not Reportable 01/16/19 04:16 RBC Morphology Normal 01/16/19 04:16 Dimorphic RBCs Not Reportable 01/16/19 04:16 Not Reportable 01/16/19 04:16 Not Reportable 01/16/19 04:16 Not Reportable 01/16/19 04:16 Not Reportable 01/16/19 04:16 Not Reportable 01/16/19 04:16 Not Reportable 01/16/19 04:16 Not Reportable 01/16/19 04:16 Not Reportable 01/16/19 04:16 Not Reportable 01/16/19 04:16 Not Reportable 01/16/19 04:16 Not Reportable 01/16/19 04:16 Not Reportable 01/16/19 04:16 Not Reportable 01/16/19 04:16 Not Reportable 01/16/19 04:16 Not Reportable 01/16/19 04:16 Not Reportable 01/16/19 04:16 Not Reportable 01/16/19 04:16 Not Reportable 01/16/19 04:16 Not Reportable 01/16/19 04:16 Acanthocytes (Spur) Not Reportable 01/16/19 04:16 Rouleaux Not Reportable 01/16/19 04:16 Not Reportable 01/16/19 04:16 Not Reportable 01/16/19 04:16 Not Reportable 01/16/19 04:16 Not Reportable 01/16/19 04:16 Hem Pathologist Commnt No 01/16/19 04:16 PT 18.8 Sec. (12.2-14.9) H 01/25/19 05:15 INR 1.47 (0.87-1.13) H 01/25/19 05:15 APTT 36.0 Sec. (24.2-36.6) 01/15/19 07:50 Heparin Anti-Xa, Unfract Negative (Negative) 01/19/19 Unknown POC ABG pH 7.522 (7.35-7.45) H 01/22/19 04:35 POC ABG pCO2 36.3 (35-45) 01/22/19 04:35 POC ABG pO2 94 (80-105) 01/22/19 04:35 POC ABG HCO3 29.8 (22-26 mml/L) 01/22/19 04:35 POC ABG Total CO2 31 (23-27mmol/L) 01/22/19 04:35 POC ABG O2 Sat 98 01/22/19 04:35 POC ABG Base Excess 7 ((-2) - (+3)mmol/L) 01/22/19 04:35 25 % 01/22/19 04:35 Sodium 136 mmol/L (137-145) L 01/27/19 03:30 Potassium 3.6 mmol/L (3.6-5.0) 01/27/19 03:30 Chloride 97.1 mmol/L (98-107) L 01/27/19 03:30 Carbon Dioxide 28 mmol/L (22-30) 01/27/19 03:30 15 mmol/L 01/27/19 03:30 BUN 26 mg/dL (7-17) H 01/27/19 03:30 0.7 mg/dL (0.7-1.2) 01/27/19 03:30 Estimated GFR > 60 ml/min 01/27/19 03:30 37 % 01/27/19 03:30 Glucose 129 mg/dL (65-100) H 01/27/19 03:30 POC Glucose 154 (70-105) H 01/27/19 06:23 6.0 % (4-6) 01/15/19 11:53 Calcium 8.7 mg/dL (8.4-10.2) 01/27/19 03:30 0.30 mg/dL (0.1-1.2) 01/23/19 Unknown AST 88 units/L (5-40) H 01/23/19 Unknown ALT 31 units/L (7-56) 01/23/19 Unknown 48 units/L (35-129) 01/23/19 Unknown 1430 units/L (30-135) H 01/15/19 17:52 CK-MB (CK-2) 13.5 ng/mL (0.0-4.0) H 01/15/19 17:52 CK-MB (CK-2) Rel Index 0.9 (0-4) 01/15/19 17:52 0.036 ng/mL (0.00-0.029) H D 01/15/19 17:52 NT-Pro-B Natriuret Pep 5346 pg/mL (0-900) H 01/15/19 07:50 6.0 g/dL (6.3-8.2) L 01/23/19 Unknown 2.9 g/dL (3.9-5) L 01/23/19 Unknown 0.9 % 01/23/19 Unknown Triglycerides 75 mg/dL (2-149) 01/15/19 17:52 Cholesterol 149 mg/dL (50-199) 01/15/19 17:52 84 mg/dL (50-130) 01/15/19 17:52 65 mg/dL (40-59) H 01/15/19 17:52 2.29 % 01/15/19 17:52 See scanned report 01/19/19 Unknown Yellow (Yellow) 01/21/19 16:10 Clear (Clear) 01/21/19 16:10 6.0 (5.0-7.0) 01/21/19 16:10 Ur Specific [place] 1.015 (1.003-1.030) 01/21/19 16:10 <15 mg/dl mg/dL (Negative) 01/21/19 16:10 Neg mg/dL (Negative) 01/21/19 16:10 Neg mg/dL (Negative) 01/21/19 16:10 Neg (Negative) 01/21/19 16:10 Neg (Negative) 01/21/19 16:10 Neg (Negative) 01/21/19 16:10 2.0 mg/dL (<2.0) 01/21/19 16:10 Ur Leukocyte Esterase Neg (Negative) 01/21/19 16:10 1.0 /HPF (0.0-6.0) 01/21/19 16:10 5.0 /HPF (0.0-6.0) 01/21/19 16:10 Presumptive negative 01/15/19 16:30 Presumptive negative 01/15/19 16:30 Ur Barbiturates Screen Presumptive negative 01/15/19 16:30 Ur Phencyclidine Scrn Presumptive negative 01/15/19 16:30 Ur Amphetamines Screen Presumptive negative 01/15/19 16:30 U Benzodiazepines Scrn Presumptive negative 01/15/19 16:30 Presumptive negative 01/15/19 16:30 U Marijuana (THC) Screen Presumptive negative 01/15/19 16:30 Disclamer 01/15/19 16:30 Heparin-induced Plt Ab Negative (Negative) 01/19/19 Unknown UF Heparin High Dose 3 % Release 01/19/19 Unknown JOSEFA UFH Low Dose 0.1 4 % Release 01/19/19 Unknown JOSEFA UFH Low Dose 0.5 5 % Release 01/19/19 Unknown C. difficile Tox (PCR) Negative (Negative) 01/16/19 00:00 Active Medications - Current Medications Current Medications: Generic Name Dose Route Start Last Admin Trade Name Freq PRN Reason Stop Dose Admin Acetaminophen 650 mg 01/16/19 09:37 01/20/19 00:24 Tylenol PO 650 mg Q4H PRN Administration Fever >101 Albuterol/Ipratropium 1 ampul 01/15/19 14:00 01/27/19 08:17 Duoneb *Not For Prn Use* IH 1 ampul Q6HRT DEON Administration Amlodipine Besylate 10 mg 01/24/19 12:00 01/26/19 10:55 Norvasc PO 10 mg DAILY DEON Administration Lipase/Protease/Amylase 1 each 01/15/19 14:37 Pancreazkerry Siddiqui 10,500 Unit FEEDTUBE PRN PRN For Clogged Feeding Tube Aspirin 81 mg 01/16/19 10:00 01/26/19 10:52 Baby Aspirin PO 81 mg QDAY DEON Administration Atorvastatin Calcium 20 mg 01/16/19 22:00 01/26/19 22:10 Lipitor PO 20 mg QHS DEON Administration Carvedilol 12.5 mg 01/24/19 22:00 01/26/19 22:10 Coreg PO 12.5 mg BID DEON Administration Famotidine 20 mg 01/22/19 10:00 01/26/19 10:52 Pepcid PO 20 mg DAILY DEON Administration Fondaparinux 2.5 mg 01/20/19 10:00 01/26/19 10:52 Arixtra SUB-Q 2.5 mg QDAY DEON Administration Furosemide 20 mg 01/19/19 18:00 01/27/19 06:36 Lasix PO 20 mg 0600,1800 DEON Administration Ceftriaxone Sodium 2 gm in 100 mls @ 200 mls/hr 01/20/19 15:00 01/26/19 10:55 Rocephin/Ns 2 Gm/100 Ml IV 01/27/19 14:59 200 mls/hr Q24HR DEON Administration Protocol Potassium Chloride/Dextrose/Sod Cl 20 meq in 1,000 mls @ 50 mls/hr 01/26/19 14:00 01/26/19 14:21 D5w/0.45% Nacl/Kcl 20 Meq IV 50 mls/hr DIRECT DEON Administration Insulin Human Lispro 0 unit 01/22/19 14:00 01/27/19 06:37 Humalog SUB-Q 2 unit Q6HR DEON Administration Protocol Levetiracetam 750 mg 01/18/19 10:00 01/26/19 22:09 Keppra PO 750 mg BID DEON Administration Modafinil 100 mg 01/20/19 10:00 01/26/19 10:52 Provigil PO 100 mg QAM DEON Administration Simple Syrup 15 ml 01/15/19 14:37 Simple Syrup FEEDTUBE PRN PRN Hypoglycemia Simple Syrup 30 ml 01/15/19 14:37 Simple Syrup FEEDTUBE PRN PRN Hypoglycemia Sodium Bicarbonate 325 mg 01/15/19 14:37 Sodium Bicarbonate FEEDTUBE PRN PRN For Clogged Feeding Tube Sodium Chloride 10 ml 01/15/19 22:00 01/26/19 22:09 Sodium Chloride Flush Syringe 10 Ml IV 10 ml BID DEON Administration Sodium Chloride 10 ml 01/15/19 10:34 Sodium Chloride Flush Syringe 10 Ml IV PRN PRN LINE FLUSH Triamcinolone Acetonide 1 applic 01/24/19 14:00 01/26/19 22:09 Kenalog TP 1 applic BID DEON Administration Nutrition/Malnutrition Assess - Dietary Evaluation Nutrition/Malnutrition Findings: Nutrition Notes Start: 01/15/19 14:28 Freq: Status: Active Protocol: Document 01/25/19 08:40 CP (Rec: 01/25/19 08:41 CP [id number]) Co-Sign 01/25/19 08:40 LP Nutrition Notes Initial or Follow up Brief Note Current Diagnosis COPD,Coronary Artery Disease, Hypertension,Heart Failure Other Pertinent Diagnosis s/p cardiorespiratory arrest ( at home) Current Diet NPO After Midnight Subjective/Other Information F/U for TF tolerance. Pt is currently NPO after midnight awaiting operation per MD note . Nutrition Intervention Follow-Up By: 01/29/19 Additional Comments F/U: TF to start/TF tolerance
--- NOTE | 2019-01-27 09:36 | XRay Report ---
PROCEDURE: XR ABDOMEN 1V AP TECHNIQUE: Supine portable abdomen HISTORY: SBO versus ileus COMPARISON: 01/15/2019 FINDINGS: Nasogastric tube terminates in the stomach. Gas pattern is nonspecific There is gaseous distention of colon and some small bowel loops. There is some stool in the right colon. Findings probably reflect ileus. Obstruction less likely. IMPRESSION: Nonspecific abdomen demonstrating gaseous distention of bowel and colon. Most likely this is an ileus. This document is electronically signed by Ayanna Torre MD., Jan 27 2019 09:34:07 AM ET
[2019-01-27] MEDS: NORVASC PO SCH (09:51)
[2019-01-27] MEDS: PROVIGIL PO SCH (09:51)
[2019-01-27] MEDS: BABY ASPIRIN PO SCH (09:51)
[2019-01-27] MEDS: KEPPRA PO SCH ×2 (09:51→21:35)
[2019-01-27] MEDS: COREG PO SCH ×2 (09:51→21:39)
[2019-01-27] MEDS: PROTONIX IV SCH ×2 (09:52→21:35)
[2019-01-27] MEDS: ROCEPHIN/NS 2 GM/100 ML 2 GM/100 ML BAG IV SCH (09:52)
[2019-01-27] MEDS: PEPCID PO SCH (09:52)
[2019-01-27] MEDS: ARIXTRA SUB-Q SCH (09:52)
[2019-01-27] MEDS: KENALOG TP SCH ×2 (09:54→21:36)
[2019-01-27] MEDS: SODIUM CHLORIDE FLUSH SYRINGE 10 ML IV SCH ×2 (09:55→21:35)
--- NOTE | 2019-01-27 10:08 | Progress Note ---
Assessment and Plan s/p Cardiopulmonary arrest, out of hospital, PEA with ROSC Acute hypoxic-hypercapnic respiratory failure on MVS Acute encephalopathy, metabolic Acute metabolic acidosis Acute renal injury Seizure activity Right lower lobe infiltrate, probably aspiration Pyrexia with leukocytosis Pulmonary HTN RVSP 60 Systolic heart failure EF 35-40% Thrombocytopenia (AMS is rate limiting step to safe extubation at this point) - daytime T-piece trials as tolerated - continue routine trach care per RT - continue provigil - HIT assay pending - continue Arixtra and follow platelet count - continue and de-escalate AB's per ID rec's (on Flagyl) - continue set rate at 12/min on MVS - neurology evaluation ongoing - Gentle diuresis with oral lasix (now 20mg bid) - sedation target for RASS 0 to -1 - continue GI & VTE prophylaxis - Bronchodilators with pulmonary hygiene per RT - continue to wean supplemental oxygen to keep O2 sats 88-90% - Lung protective strategies - prn ABGs/CXR going forwards - VAP bundle addressed - Continue cardioprotective measures - Replete electrolytes as indicated - Continue bronchodilators with pulmonary hygiene per RT - Estes catheter placed for acute urinary retention - Continue to rest at night on full MVS - Monitor renal indices closely - Avoid nephrotoxic agents, adjust all medications for CrCL - Strict intake and output monitoring - Tube feedings - Accuchecks with glycemic control. Target glucose of 140-180 mg/dL - Maintenance of sleep -wake cycle - Mobility as tolerated by hemodynamics - Influenza and pneumonia vaccination per protocol ..care plan discussed at length with RN/RT at the bedside ..discussed in ICU-IDT rounds PROGNOSIS: GUARDED CONDITION: CRITICAL CODE STATUS: FULL CODE The high probability of a clinically significant, sudden or life-threatening deterioration of the [respiratory, neurology, renal] system(s) required my full and direct attention, intervention and personal management. The aggregate critical care time was [34] minutes without overlap. Time includes spent on; [x] Data Review and interpretation [x] Patient assessment and monitoring of vital signs [x] Documentation [x] Medication orders and management Subjective Date of service: 01/27/19 Principal diagnosis: OOH cardiac arrest; Acute hypoxemic-hypercapnic Resp failure; PNA Interval history: Patient is seen today for: OOH cardiopulmonary arrest with ROSC; Acute hypoxemic-hypercapnic respiratory failure on MVS; acute encephalopathy; aspiration pneumonia; Seen and examined at bedside; 24hour events reviewed; nursing and respiratory care staff consulted; no adverse overnight events reported to me; remains on MVS; s/p tracheostomy; AMS is persistent; PEG is pending; no new issues otherwise Objective Vital Signs - 12hr 01/26/19 01/26/19 01/26/19 22:10 22:30 23:00 Temperature Pulse Rate 77 76 73 Pulse Rate [ Anterior Bilateral Throughout] Pulse Rate [ From Monitor] Respiratory 12 12 Rate Respiratory Rate [Anterior Bilateral Throughout] Blood Pressure 123/63 123/63 123/66 O2 Sat by Pulse 100 Oximetry O2 Sat by Pulse Oximetry [ Assessment] 01/27/19 01/27/19 01/27/19 00:00 00:08 00:14 Temperature 97.9 F Pulse Rate 78 73 73 Pulse Rate [ Anterior Bilateral Throughout] Pulse Rate [ 81 From Monitor] Respiratory 12 12 Rate Respiratory Rate [Anterior Bilateral Throughout] Blood Pressure 129/70 123/66 123/66 O2 Sat by Pulse 100 100 100 Oximetry O2 Sat by Pulse Oximetry [ Assessment] 01/27/19 01/27/19 01/27/19 01:00 01:58 02:00 Temperature Pulse Rate 73 73 Pulse Rate [ 75 Anterior Bilateral Throughout] Pulse Rate [ From Monitor] Respiratory 12 12 Rate Respiratory 12 Rate [Anterior Bilateral Throughout] Blood Pressure 114/65 134/71 O2 Sat by Pulse 100 100 Oximetry O2 Sat by Pulse Oximetry [ Assessment] 01/27/19 01/27/19 01/27/19 02:10 02:20 03:00 Temperature Pulse Rate 77 Pulse Rate [ 75 Anterior Bilateral Throughout] Pulse Rate [ From Monitor] Respiratory 12 Rate Respiratory 12 Rate [Anterior Bilateral Throughout] Blood Pressure 121/69 O2 Sat by Pulse 100 Oximetry O2 Sat by Pulse 99 Oximetry [ Assessment] 01/27/19 01/27/19 01/27/19 03:45 04:00 05:00 Temperature 97.9 F Pulse Rate 77 82 79 Pulse Rate [ Anterior Bilateral Throughout] Pulse Rate [ 81 From Monitor] Respiratory 12 12 12 Rate Respiratory Rate [Anterior Bilateral Throughout] Blood Pressure 121/69 129/75 O2 Sat by Pulse 100 100 100 Oximetry O2 Sat by Pulse Oximetry [ Assessment] 01/27/19 01/27/19 01/27/19 05:25 06:00 08:22 Temperature Pulse Rate 79 79 79 Pulse Rate [ Anterior Bilateral Throughout] Pulse Rate [ 81 From Monitor] Respiratory 12 13 27 H Rate Respiratory Rate [Anterior Bilateral Throughout] Blood Pressure 141/76 139/72 O2 Sat by Pulse 100 100 98 Oximetry O2 Sat by Pulse Oximetry [ Assessment] 01/27/19 09:51 Temperature Pulse Rate 80 Pulse Rate [ Anterior Bilateral Throughout] Pulse Rate [ From Monitor] Respiratory Rate Respiratory Rate [Anterior Bilateral Throughout] Blood Pressure 132/71 O2 Sat by Pulse Oximetry O2 Sat by Pulse Oximetry [ Assessment] Constitutional: no acute distress, other (elderly, atraumatic, normocephalic, chronically looking female) Eyes: non-icteric ENT: oropharynx moist, other (s/p tracheostomy) Neck: supple, no lymphadenopathy, no JVD Effort: normal Ascultation: Bilateral: diminished breath sounds, rhonchi (scant) Percussion: Bilateral: not dull Cardiovascular: regular rate and rhythm, other (tacycardia, S1,S2, no murmurs, gallops or rubs) Gastrointestinal: normoactive bowel sounds, soft, non-tender, non-distended Integumentary: normal Extremities: no cyanosis, no edema, pulses normal, no ischemia or petechiae Neurologic: unable to assess Psychiatric: other (unable to assess secondary to mental status) CBC and BMP: 01/30/19 06:45 02/01/19 12:18 ABG, PT/INR, D-dimer: ABG POC ABG pH 7.522 (7.35-7.45) H 01/22/19 04:35 POC ABG pCO2 36.3 (35-45) 01/22/19 04:35 POC ABG pO2 94 (80-105) 01/22/19 04:35 POC ABG HCO3 29.8 (22-26 mml/L) 01/22/19 04:35 POC ABG Total CO2 31 (23-27mmol/L) 01/22/19 04:35 POC ABG O2 Sat 98 01/22/19 04:35 PT/INR, D-dimer PT 18.8 Sec. (12.2-14.9) H 01/25/19 05:15 INR 1.47 (0.87-1.13) H 01/25/19 05:15 Abnormal lab findings: Abnormal Labs 01/15/19 01/15/19 01/15/19 07:50 07:50 07:50 WBC RBC Hgb Hct MCV 99 H RDW 16.7 H Plt Count 122 L Lymph % (Auto) Lymph # Seg Neutrophils % Seg Neuts % (Manual) Lymphocytes % (Manual) Seg Neutrophils # Seg Neutrophils # Man Lymphocytes # (Manual) PT 19.7 H INR 1.56 H POC ABG pH POC ABG pCO2 POC ABG pO2 Sodium Potassium Chloride Carbon Dioxide 11 L BUN Creatinine 1.4 H Glucose 268 H POC Glucose Calcium AST 57 H Total Creatine Kinase CK-MB (CK-2) Troponin T NT-Pro-B Natriuret Pep 5346 H Total Protein Albumin 3.6 L HDL Cholesterol 01/15/19 01/15/19 01/15/19 09:56 11:53 17:52 WBC RBC Hgb Hct MCV RDW Plt Count Lymph % (Auto) Lymph # Seg Neutrophils % Seg Neuts % (Manual) Lymphocytes % (Manual) Seg Neutrophils # Seg Neutrophils # Man Lymphocytes # (Manual) PT INR POC ABG pH 7.186 L POC ABG pCO2 46.4 H POC ABG pO2 Sodium Potassium Chloride Carbon Dioxide BUN Creatinine Glucose POC Glucose Calcium AST Total Creatine Kinase 683 H 1430 H CK-MB (CK-2) 9.5 H 13.5 H Troponin T 0.036 H D NT-Pro-B Natriuret Pep Total Protein Albumin HDL Cholesterol 65 H 01/15/19 01/15/19 01/16/19 18:31 21:46 02:14 WBC RBC Hgb Hct MCV RDW Plt Count Lymph % (Auto) Lymph # Seg Neutrophils % Seg Neuts % (Manual) Lymphocytes % (Manual) Seg Neutrophils # Seg Neutrophils # Man Lymphocytes # (Manual) PT INR POC ABG pH POC ABG pCO2 31.8 L POC ABG pO2 167 H Sodium Potassium Chloride Carbon Dioxide BUN Creatinine Glucose POC Glucose 134 H 136 H Calcium AST Total Creatine Kinase CK-MB (CK-2) Troponin T NT-Pro-B Natriuret Pep Total Protein Albumin HDL Cholesterol 01/16/19 01/16/19 01/16/19 04:16 04:16 05:05 WBC 11.4 H RBC Hgb Hct MCV RDW Plt Count 105 L Lymph % (Auto) Lymph # Seg Neutrophils % Seg Neuts % (Manual) 74.0 H Lymphocytes % (Manual) 2.0 L Seg Neutrophils # Seg Neutrophils # Man 8.4 H Lymphocytes # (Manual) 0.2 L PT INR POC ABG pH 7.458 H POC ABG pCO2 31.4 L POC ABG pO2 135 H Sodium Potassium 3.3 L Chloride Carbon Dioxide 21 L D BUN 24 H Creatinine 1.5 H Glucose 141 H POC Glucose Calcium 8.1 L AST 71 H Total Creatine Kinase CK-MB (CK-2) Troponin T NT-Pro-B Natriuret Pep Total Protein 6.2 L Albumin 3.5 L HDL Cholesterol 01/16/19 01/16/19 01/16/19 05:24 13:42 21:08 WBC RBC Hgb Hct MCV RDW Plt Count Lymph % (Auto) Lymph # Seg Neutrophils % Seg Neuts % (Manual) Lymphocytes % (Manual) Seg Neutrophils # Seg Neutrophils # Man Lymphocytes # (Manual) PT INR POC ABG pH POC ABG pCO2 POC ABG pO2 Sodium Potassium Chloride Carbon Dioxide BUN Creatinine Glucose POC Glucose 137 H 129 H 122 H Calcium AST Total Creatine Kinase CK-MB (CK-2) Troponin T NT-Pro-B Natriuret Pep Total Protein Albumin HDL Cholesterol 01/17/19 01/17/19 01/17/19 02:18 04:23 05:13 WBC RBC Hgb Hct MCV RDW Plt Count Lymph % (Auto) Lymph # Seg Neutrophils % Seg Neuts % (Manual) Lymphocytes % (Manual) Seg Neutrophils # Seg Neutrophils # Man Lymphocytes # (Manual) PT INR POC ABG pH 7.479 H POC ABG pCO2 30.0 L POC ABG pO2 141 H Sodium Potassium Chloride Carbon Dioxide BUN Creatinine Glucose POC Glucose 139 H 128 H Calcium AST Total Creatine Kinase CK-MB (CK-2) Troponin T NT-Pro-B Natriuret Pep Total Protein Albumin HDL Cholesterol 01/17/19 01/17/19 01/17/19 10:22 15:59 18:45 WBC RBC Hgb Hct MCV RDW Plt Count Lymph % (Auto) Lymph # Seg Neutrophils % Seg Neuts % (Manual) Lymphocytes % (Manual) Seg Neutrophils # Seg Neutrophils # Man Lymphocytes # (Manual) PT INR POC ABG pH POC ABG pCO2 POC ABG pO2 Sodium Potassium Chloride Carbon Dioxide BUN Creatinine Glucose POC Glucose 133 H 121 H 106 H Calcium AST Total Creatine Kinase CK-MB (CK-2) Troponin T NT-Pro-B Natriuret Pep Total Protein Albumin HDL Cholesterol 01/17/19 01/18/19 01/18/19 23:35 04:21 04:21 WBC RBC 3.27 L Hgb 9.6 L Hct 29.9 L MCV RDW Plt Count 79 L Lymph % (Auto) 6.0 L Lymph # 0.5 L Seg Neutrophils % 89.2 H Seg Neuts % (Manual) Lymphocytes % (Manual) Seg Neutrophils # 8.1 H Seg Neutrophils # Man Lymphocytes # (Manual) PT INR POC ABG pH POC ABG pCO2 POC ABG pO2 Sodium Potassium Chloride Carbon Dioxide BUN 28 H Creatinine 1.3 H Glucose 129 H POC Glucose 121 H Calcium AST 120 H Total Creatine Kinase CK-MB (CK-2) Troponin T NT-Pro-B Natriuret Pep Total Protein 5.1 L Albumin 3.0 L HDL Cholesterol 01/18/19 01/18/19 01/18/19 04:21 04:36 05:43 WBC RBC Hgb Hct MCV RDW Plt Count Lymph % (Auto) Lymph # Seg Neutrophils % Seg Neuts % (Manual) Lymphocytes % (Manual) Seg Neutrophils # Seg Neutrophils # Man Lymphocytes # (Manual) PT INR POC ABG pH 7.485 H POC ABG pCO2 31.0 L POC ABG pO2 126 H Sodium Potassium Chloride Carbon Dioxide BUN 28 H Creatinine 1.3 H Glucose 128 H POC Glucose 142 H Calcium AST Total Creatine Kinase CK-MB (CK-2) Troponin T NT-Pro-B Natriuret Pep Total Protein Albumin HDL Cholesterol 01/18/19 01/18/19 01/18/19 12:04 18:16 20:47 WBC RBC Hgb Hct MCV RDW Plt Count Lymph % (Auto) Lymph # Seg Neutrophils % Seg Neuts % (Manual) Lymphocytes % (Manual) Seg Neutrophils # Seg Neutrophils # Man Lymphocytes # (Manual) PT INR POC ABG pH 7.489 H POC ABG pCO2 32.8 L POC ABG pO2 Sodium Potassium Chloride Carbon Dioxide BUN Creatinine Glucose POC Glucose 113 H 119 H Calcium AST Total Creatine Kinase CK-MB (CK-2) Troponin T NT-Pro-B Natriuret Pep Total Protein Albumin HDL Cholesterol 01/19/19 01/19/19 01/19/19 00:40 05:35 11:39 WBC RBC Hgb Hct MCV RDW Plt Count Lymph % (Auto) Lymph # Seg Neutrophils % Seg Neuts % (Manual) Lymphocytes % (Manual) Seg Neutrophils # Seg Neutrophils # Man Lymphocytes # (Manual) PT INR POC ABG pH POC ABG pCO2 POC ABG pO2 Sodium Potassium Chloride Carbon Dioxide BUN Creatinine Glucose POC Glucose 137 H 157 H 155 H Calcium AST Total Creatine Kinase CK-MB (CK-2) Troponin T NT-Pro-B Natriuret Pep Total Protein Albumin HDL Cholesterol 01/19/19 01/19/19 01/19/19 18:24 21:08 23:33 WBC RBC Hgb Hct MCV RDW Plt Count Lymph % (Auto) Lymph # Seg Neutrophils % Seg Neuts % (Manual) Lymphocytes % (Manual) Seg Neutrophils # Seg Neutrophils # Man Lymphocytes # (Manual) PT INR POC ABG pH 7.508 H POC ABG pCO2 34.2 L POC ABG pO2 Sodium Potassium Chloride Carbon Dioxide BUN Creatinine Glucose POC Glucose 145 H 156 H Calcium AST Total Creatine Kinase CK-MB (CK-2) Troponin T NT-Pro-B Natriuret Pep Total Protein Albumin HDL Cholesterol 01/20/19 01/20/19 01/20/19 05:12 11:42 17:36 WBC RBC Hgb Hct MCV RDW Plt Count Lymph % (Auto) Lymph # Seg Neutrophils % Seg Neuts % (Manual) Lymphocytes % (Manual) Seg Neutrophils # Seg Neutrophils # Man Lymphocytes # (Manual) PT INR POC ABG pH POC ABG pCO2 POC ABG pO2 Sodium Potassium Chloride Carbon Dioxide BUN Creatinine Glucose POC Glucose 152 H 159 H 169 H Calcium AST Total Creatine Kinase CK-MB (CK-2) Troponin T NT-Pro-B Natriuret Pep Total Protein Albumin HDL Cholesterol 01/20/19 01/21/19 01/21/19 23:29 05:30 05:34 WBC RBC Hgb Hct MCV RDW Plt Count Lymph % (Auto) Lymph # Seg Neutrophils % Seg Neuts % (Manual) Lymphocytes % (Manual) Seg Neutrophils # Seg Neutrophils # Man Lymphocytes # (Manual) PT INR POC ABG pH 7.616 H POC ABG pCO2 POC ABG pO2 71 L Sodium Potassium Chloride Carbon Dioxide BUN Creatinine Glucose POC Glucose 139 H 138 H Calcium AST Total Creatine Kinase CK-MB (CK-2) Troponin T NT-Pro-B Natriuret Pep Total Protein Albumin HDL Cholesterol 01/21/19 01/21/19 01/22/19 12:41 18:47 00:07 WBC RBC Hgb Hct MCV RDW Plt Count Lymph % (Auto) Lymph # Seg Neutrophils % Seg Neuts % (Manual) Lymphocytes % (Manual) Seg Neutrophils # Seg Neutrophils # Man Lymphocytes # (Manual) PT INR POC ABG pH POC ABG pCO2 POC ABG pO2 Sodium Potassium Chloride Carbon Dioxide BUN Creatinine Glucose POC Glucose 154 H 174 H 163 H Calcium AST Total Creatine Kinase CK-MB (CK-2) Troponin T NT-Pro-B Natriuret Pep Total Protein Albumin HDL Cholesterol 01/22/19 01/22/19 01/22/19 04:35 05:46 12:18 WBC RBC Hgb Hct MCV RDW Plt Count Lymph % (Auto) Lymph # Seg Neutrophils % Seg Neuts % (Manual) Lymphocytes % (Manual) Seg Neutrophils # Seg Neutrophils # Man Lymphocytes # (Manual) PT INR POC ABG pH 7.522 H POC ABG pCO2 POC ABG pO2 Sodium Potassium Chloride Carbon Dioxide BUN Creatinine Glucose POC Glucose 159 H 137 H Calcium AST Total Creatine Kinase CK-MB (CK-2) Troponin T NT-Pro-B Natriuret Pep Total Protein Albumin HDL Cholesterol 01/22/19 01/22/19 01/22/19 15:00 15:00 18:13 WBC RBC 2.92 L Hgb 8.4 L Hct 25.6 L MCV RDW Plt Count Lymph % (Auto) Lymph # Seg Neutrophils % Seg Neuts % (Manual) Lymphocytes % (Manual) Seg Neutrophils # Seg Neutrophils # Man Lymphocytes # (Manual) PT INR POC ABG pH POC ABG pCO2 POC ABG pO2 Sodium Potassium Chloride 97.0 L Carbon Dioxide BUN 37 H Creatinine Glucose 162 H POC Glucose 159 H Calcium 8.2 L AST Total Creatine Kinase CK-MB (CK-2) Troponin T NT-Pro-B Natriuret Pep Total Protein Albumin HDL Cholesterol 01/22/19 01/23/19 01/23/19 22:45 00:01 05:10 WBC RBC 2.92 L Hgb 8.5 L Hct 25.4 L MCV RDW Plt Count Lymph % (Auto) 6.3 L Lymph # 0.6 L Seg Neutrophils % 86.3 H Seg Neuts % (Manual) Lymphocytes % (Manual) Seg Neutrophils # 8.9 H Seg Neutrophils # Man Lymphocytes # (Manual) PT INR POC ABG pH POC ABG pCO2 POC ABG pO2 Sodium Potassium Chloride Carbon Dioxide BUN Creatinine Glucose POC Glucose 178 H 155 H Calcium AST Total Creatine Kinase CK-MB (CK-2) Troponin T NT-Pro-B Natriuret Pep Total Protein Albumin HDL Cholesterol 01/23/19 01/23/19 01/23/19 11:31 17:49 Unknown WBC RBC Hgb Hct MCV RDW Plt Count Lymph % (Auto) Lymph # Seg Neutrophils % Seg Neuts % (Manual) Lymphocytes % (Manual) Seg Neutrophils # Seg Neutrophils # Man Lymphocytes # (Manual) PT INR POC ABG pH POC ABG pCO2 POC ABG pO2 Sodium Potassium Chloride 95.4 L Carbon Dioxide BUN 37 H Creatinine Glucose 144 H POC Glucose 161 H 142 H Calcium AST 88 H Total Creatine Kinase CK-MB (CK-2) Troponin T NT-Pro-B Natriuret Pep Total Protein 6.0 L Albumin 2.9 L HDL Cholesterol 01/24/19 01/24/19 01/24/19 00:21 05:36 12:35 WBC RBC Hgb Hct MCV RDW Plt Count Lymph % (Auto) Lymph # Seg Neutrophils % Seg Neuts % (Manual) Lymphocytes % (Manual) Seg Neutrophils # Seg Neutrophils # Man Lymphocytes # (Manual) PT INR POC ABG pH POC ABG pCO2 POC ABG pO2 Sodium Potassium Chloride Carbon Dioxide BUN Creatinine Glucose POC Glucose 163 H 147 H 263 H Calcium AST Total Creatine Kinase CK-MB (CK-2) Troponin T NT-Pro-B Natriuret Pep Total Protein Albumin HDL Cholesterol 01/24/19 01/24/19 01/24/19 17:46 23:07 Unknown WBC RBC 2.90 L Hgb 8.3 L Hct 25.0 L MCV RDW Plt Count Lymph % (Auto) Lymph # Seg Neutrophils % Seg Neuts % (Manual) Lymphocytes % (Manual) Seg Neutrophils # Seg Neutrophils # Man Lymphocytes # (Manual) PT INR POC ABG pH POC ABG pCO2 POC ABG pO2 Sodium Potassium Chloride Carbon Dioxide BUN Creatinine Glucose POC Glucose 161 H 167 H Calcium AST Total Creatine Kinase CK-MB (CK-2) Troponin T NT-Pro-B Natriuret Pep Total Protein Albumin HDL Cholesterol 01/24/19 01/25/19 01/25/19 Unknown 05:15 05:15 WBC RBC 2.90 L Hgb 8.4 L Hct 25.2 L MCV RDW Plt Count Lymph % (Auto) Lymph # Seg Neutrophils % Seg Neuts % (Manual) Lymphocytes % (Manual) Seg Neutrophils # Seg Neutrophils # Man Lymphocytes # (Manual) PT INR POC ABG pH POC ABG pCO2 POC ABG pO2 Sodium 134 L 135 L Potassium Chloride 94.4 L 94.0 L Carbon Dioxide BUN 35 H 35 H Creatinine Glucose 151 H 128 H POC Glucose Calcium AST Total Creatine Kinase CK-MB (CK-2) Troponin T NT-Pro-B Natriuret Pep Total Protein Albumin HDL Cholesterol 01/25/19 01/25/19 01/25/19 05:15 05:35 11:09 WBC RBC Hgb Hct MCV RDW Plt Count Lymph % (Auto) Lymph # Seg Neutrophils % Seg Neuts % (Manual) Lymphocytes % (Manual) Seg Neutrophils # Seg Neutrophils # Man Lymphocytes # (Manual) PT 18.8 H INR 1.47 H POC ABG pH POC ABG pCO2 POC ABG pO2 Sodium Potassium Chloride Carbon Dioxide BUN Creatinine Glucose POC Glucose 126 H 149 H Calcium AST Total Creatine Kinase CK-MB (CK-2) Troponin T NT-Pro-B Natriuret Pep Total Protein Albumin HDL Cholesterol 01/25/19 01/25/19 01/26/19 17:24 23:41 00:09 WBC RBC Hgb Hct MCV RDW Plt Count Lymph % (Auto) Lymph # Seg Neutrophils % Seg Neuts % (Manual) Lymphocytes % (Manual) Seg Neutrophils # Seg Neutrophils # Man Lymphocytes # (Manual) PT INR POC ABG pH POC ABG pCO2 POC ABG pO2 Sodium Potassium Chloride Carbon Dioxide BUN Creatinine Glucose POC Glucose 140 H 142 H 156 H Calcium AST Total Creatine Kinase CK-MB (CK-2) Troponin T NT-Pro-B Natriuret Pep Total Protein Albumin HDL Cholesterol 01/26/19 01/26/19 01/26/19 05:05 06:35 06:35 WBC RBC 2.83 L Hgb 8.1 L Hct 24.4 L MCV RDW Plt Count Lymph % (Auto) Lymph # Seg Neutrophils % Seg Neuts % (Manual) Lymphocytes % (Manual) Seg Neutrophils # Seg Neutrophils # Man Lymphocytes # (Manual) PT INR POC ABG pH POC ABG pCO2 POC ABG pO2 Sodium Potassium Chloride 96.9 L Carbon Dioxide BUN 29 H Creatinine Glucose 141 H POC Glucose 159 H Calcium 8.3 L AST Total Creatine Kinase CK-MB (CK-2) Troponin T NT-Pro-B Natriuret Pep Total Protein Albumin HDL Cholesterol 01/26/19 01/26/19 01/27/19 13:16 19:10 00:08 WBC RBC Hgb Hct MCV RDW Plt Count Lymph % (Auto) Lymph # Seg Neutrophils % Seg Neuts % (Manual) Lymphocytes % (Manual) Seg Neutrophils # Seg Neutrophils # Man Lymphocytes # (Manual) PT INR POC ABG pH POC ABG pCO2 POC ABG pO2 Sodium Potassium Chloride Carbon Dioxide BUN Creatinine Glucose POC Glucose 159 H 146 H 140 H Calcium AST Total Creatine Kinase CK-MB (CK-2) Troponin T NT-Pro-B Natriuret Pep Total Protein Albumin HDL Cholesterol 01/27/19 01/27/19 01/27/19 03:30 03:30 06:23 WBC RBC 2.85 L Hgb 8.3 L Hct 24.8 L MCV RDW Plt Count Lymph % (Auto) Lymph # Seg Neutrophils % Seg Neuts % (Manual) Lymphocytes % (Manual) Seg Neutrophils # Seg Neutrophils # Man Lymphocytes # (Manual) PT INR POC ABG pH POC ABG pCO2 POC ABG pO2 Sodium 136 L Potassium Chloride 97.1 L Carbon Dioxide BUN 26 H Creatinine Glucose 129 H POC Glucose 154 H Calcium AST Total Creatine Kinase CK-MB (CK-2) Troponin T NT-Pro-B Natriuret Pep Total Protein Albumin HDL Cholesterol Allied health notes reviewed: nursing
[2019-01-27] MEDS: D5W/0.45% NACL/KCL 20 MEQ 20 MEQ/1,000 ML BAG IV SCH (10:14)
--- NOTE | 2019-01-27 11:33 | Progress Note ---
Subjective Date of service: 01/27/19 Principal diagnosis: OOH cardiac arrest; Acute hypoxemic-hypercapnic Resp failure; PNA Interval history: reviewed all recent notes and extensive labs see no change in my previously documented prognosis Objective - Vital Sign Vital Signs - 12hr 01/27/19 01/27/19 01/27/19 00:00 00:08 00:14 Temperature 97.9 F Pulse Rate 78 73 73 Pulse Rate [ Anterior Bilateral Throughout] Pulse Rate [ 81 From Monitor] Respiratory 12 12 Rate Respiratory Rate [Anterior Bilateral Throughout] Blood Pressure 129/70 123/66 123/66 O2 Sat by Pulse 100 100 100 Oximetry O2 Sat by Pulse Oximetry [ Assessment] 01/27/19 01/27/19 01/27/19 01:00 01:58 02:00 Temperature Pulse Rate 73 73 Pulse Rate [ 75 Anterior Bilateral Throughout] Pulse Rate [ From Monitor] Respiratory 12 12 Rate Respiratory 12 Rate [Anterior Bilateral Throughout] Blood Pressure 114/65 134/71 O2 Sat by Pulse 100 100 Oximetry O2 Sat by Pulse Oximetry [ Assessment] 01/27/19 01/27/19 01/27/19 02:10 02:20 03:00 Temperature Pulse Rate 77 Pulse Rate [ 75 Anterior Bilateral Throughout] Pulse Rate [ From Monitor] Respiratory 12 Rate Respiratory 12 Rate [Anterior Bilateral Throughout] Blood Pressure 121/69 O2 Sat by Pulse 100 Oximetry O2 Sat by Pulse 99 Oximetry [ Assessment] 01/27/19 01/27/19 01/27/19 03:45 04:00 05:00 Temperature 97.9 F Pulse Rate 77 82 79 Pulse Rate [ Anterior Bilateral Throughout] Pulse Rate [ 81 From Monitor] Respiratory 12 12 12 Rate Respiratory Rate [Anterior Bilateral Throughout] Blood Pressure 121/69 129/75 O2 Sat by Pulse 100 100 100 Oximetry O2 Sat by Pulse Oximetry [ Assessment] 01/27/19 01/27/19 01/27/19 05:25 06:00 07:00 Temperature 97.3 F L Pulse Rate 79 79 76 Pulse Rate [ Anterior Bilateral Throughout] Pulse Rate [ 81 From Monitor] Respiratory 12 13 11 L Rate Respiratory Rate [Anterior Bilateral Throughout] Blood Pressure 141/76 144/72 O2 Sat by Pulse 100 100 100 Oximetry O2 Sat by Pulse Oximetry [ Assessment] 01/27/19 01/27/19 01/27/19 08:00 08:22 09:00 Temperature Pulse Rate 76 79 77 Pulse Rate [ Anterior Bilateral Throughout] Pulse Rate [ From Monitor] Respiratory 11 L 27 H 12 Rate Respiratory Rate [Anterior Bilateral Throughout] Blood Pressure 139/72 139/72 132/71 O2 Sat by Pulse 100 98 100 Oximetry O2 Sat by Pulse Oximetry [ Assessment] 01/27/19 01/27/19 01/27/19 09:51 10:00 11:00 Temperature Pulse Rate 80 78 77 Pulse Rate [ Anterior Bilateral Throughout] Pulse Rate [ From Monitor] Respiratory 26 H 26 H Rate Respiratory Rate [Anterior Bilateral Throughout] Blood Pressure 132/71 145/71 128/64 O2 Sat by Pulse 91 89 Oximetry O2 Sat by Pulse Oximetry [ Assessment] - Laboratory Findings CBC and BMP: 01/27/19 03:30 01/27/19 03:30 Abnormal Lab Findings: Abnormal Labs 01/15/19 01/15/19 01/15/19 07:50 07:50 07:50 WBC RBC Hgb Hct MCV 99 H RDW 16.7 H Plt Count 122 L Lymph % (Auto) Lymph # Seg Neutrophils % Seg Neuts % (Manual) Lymphocytes % (Manual) Seg Neutrophils # Seg Neutrophils # Man Lymphocytes # (Manual) PT 19.7 H INR 1.56 H POC ABG pH POC ABG pCO2 POC ABG pO2 Sodium Potassium Chloride Carbon Dioxide 11 L BUN Creatinine 1.4 H Glucose 268 H POC Glucose Calcium AST 57 H Total Creatine Kinase CK-MB (CK-2) Troponin T NT-Pro-B Natriuret Pep 5346 H Total Protein Albumin 3.6 L HDL Cholesterol 01/15/19 01/15/19 01/15/19 09:56 11:53 17:52 WBC RBC Hgb Hct MCV RDW Plt Count Lymph % (Auto) Lymph # Seg Neutrophils % Seg Neuts % (Manual) Lymphocytes % (Manual) Seg Neutrophils # Seg Neutrophils # Man Lymphocytes # (Manual) PT INR POC ABG pH 7.186 L POC ABG pCO2 46.4 H POC ABG pO2 Sodium Potassium Chloride Carbon Dioxide BUN Creatinine Glucose POC Glucose Calcium AST Total Creatine Kinase 683 H 1430 H CK-MB (CK-2) 9.5 H 13.5 H Troponin T 0.036 H D NT-Pro-B Natriuret Pep Total Protein Albumin HDL Cholesterol 65 H 01/15/19 01/15/19 01/16/19 18:31 21:46 02:14 WBC RBC Hgb Hct MCV RDW Plt Count Lymph % (Auto) Lymph # Seg Neutrophils % Seg Neuts % (Manual) Lymphocytes % (Manual) Seg Neutrophils # Seg Neutrophils # Man Lymphocytes # (Manual) PT INR POC ABG pH POC ABG pCO2 31.8 L POC ABG pO2 167 H Sodium Potassium Chloride Carbon Dioxide BUN Creatinine Glucose POC Glucose 134 H 136 H Calcium AST Total Creatine Kinase CK-MB (CK-2) Troponin T NT-Pro-B Natriuret Pep Total Protein Albumin HDL Cholesterol 01/16/19 01/16/19 01/16/19 04:16 04:16 05:05 WBC 11.4 H RBC Hgb Hct MCV RDW Plt Count 105 L Lymph % (Auto) Lymph # Seg Neutrophils % Seg Neuts % (Manual) 74.0 H Lymphocytes % (Manual) 2.0 L Seg Neutrophils # Seg Neutrophils # Man 8.4 H Lymphocytes # (Manual) 0.2 L PT INR POC ABG pH 7.458 H POC ABG pCO2 31.4 L POC ABG pO2 135 H Sodium Potassium 3.3 L Chloride Carbon Dioxide 21 L D BUN 24 H Creatinine 1.5 H Glucose 141 H POC Glucose Calcium 8.1 L AST 71 H Total Creatine Kinase CK-MB (CK-2) Troponin T NT-Pro-B Natriuret Pep Total Protein 6.2 L Albumin 3.5 L HDL Cholesterol 01/16/19 01/16/19 01/16/19 05:24 13:42 21:08 WBC RBC Hgb Hct MCV RDW Plt Count Lymph % (Auto) Lymph # Seg Neutrophils % Seg Neuts % (Manual) Lymphocytes % (Manual) Seg Neutrophils # Seg Neutrophils # Man Lymphocytes # (Manual) PT INR POC ABG pH POC ABG pCO2 POC ABG pO2 Sodium Potassium Chloride Carbon Dioxide BUN Creatinine Glucose POC Glucose 137 H 129 H 122 H Calcium AST Total Creatine Kinase CK-MB (CK-2) Troponin T NT-Pro-B Natriuret Pep Total Protein Albumin HDL Cholesterol 01/17/19 01/17/19 01/17/19 02:18 04:23 05:13 WBC RBC Hgb Hct MCV RDW Plt Count Lymph % (Auto) Lymph # Seg Neutrophils % Seg Neuts % (Manual) Lymphocytes % (Manual) Seg Neutrophils # Seg Neutrophils # Man Lymphocytes # (Manual) PT INR POC ABG pH 7.479 H POC ABG pCO2 30.0 L POC ABG pO2 141 H Sodium Potassium Chloride Carbon Dioxide BUN Creatinine Glucose POC Glucose 139 H 128 H Calcium AST Total Creatine Kinase CK-MB (CK-2) Troponin T NT-Pro-B Natriuret Pep Total Protein Albumin HDL Cholesterol 01/17/19 01/17/19 01/17/19 10:22 15:59 18:45 WBC RBC Hgb Hct MCV RDW Plt Count Lymph % (Auto) Lymph # Seg Neutrophils % Seg Neuts % (Manual) Lymphocytes % (Manual) Seg Neutrophils # Seg Neutrophils # Man Lymphocytes # (Manual) PT INR POC ABG pH POC ABG pCO2 POC ABG pO2 Sodium Potassium Chloride Carbon Dioxide BUN Creatinine Glucose POC Glucose 133 H 121 H 106 H Calcium AST Total Creatine Kinase CK-MB (CK-2) Troponin T NT-Pro-B Natriuret Pep Total Protein Albumin HDL Cholesterol 01/17/19 01/18/19 01/18/19 23:35 04:21 04:21 WBC RBC 3.27 L Hgb 9.6 L Hct 29.9 L MCV RDW Plt Count 79 L Lymph % (Auto) 6.0 L Lymph # 0.5 L Seg Neutrophils % 89.2 H Seg Neuts % (Manual) Lymphocytes % (Manual) Seg Neutrophils # 8.1 H Seg Neutrophils # Man Lymphocytes # (Manual) PT INR POC ABG pH POC ABG pCO2 POC ABG pO2 Sodium Potassium Chloride Carbon Dioxide BUN 28 H Creatinine 1.3 H Glucose 129 H POC Glucose 121 H Calcium AST 120 H Total Creatine Kinase CK-MB (CK-2) Troponin T NT-Pro-B Natriuret Pep Total Protein 5.1 L Albumin 3.0 L HDL Cholesterol 01/18/19 01/18/19 01/18/19 04:21 04:36 05:43 WBC RBC Hgb Hct MCV RDW Plt Count Lymph % (Auto) Lymph # Seg Neutrophils % Seg Neuts % (Manual) Lymphocytes % (Manual) Seg Neutrophils # Seg Neutrophils # Man Lymphocytes # (Manual) PT INR POC ABG pH 7.485 H POC ABG pCO2 31.0 L POC ABG pO2 126 H Sodium Potassium Chloride Carbon Dioxide BUN 28 H Creatinine 1.3 H Glucose 128 H POC Glucose 142 H Calcium AST Total Creatine Kinase CK-MB (CK-2) Troponin T NT-Pro-B Natriuret Pep Total Protein Albumin HDL Cholesterol 01/18/19 01/18/19 01/18/19 12:04 18:16 20:47 WBC RBC Hgb Hct MCV RDW Plt Count Lymph % (Auto) Lymph # Seg Neutrophils % Seg Neuts % (Manual) Lymphocytes % (Manual) Seg Neutrophils # Seg Neutrophils # Man Lymphocytes # (Manual) PT INR POC ABG pH 7.489 H POC ABG pCO2 32.8 L POC ABG pO2 Sodium Potassium Chloride Carbon Dioxide BUN Creatinine Glucose POC Glucose 113 H 119 H Calcium AST Total Creatine Kinase CK-MB (CK-2) Troponin T NT-Pro-B Natriuret Pep Total Protein Albumin HDL Cholesterol 01/19/19 01/19/19 01/19/19 00:40 05:35 11:39 WBC RBC Hgb Hct MCV RDW Plt Count Lymph % (Auto) Lymph # Seg Neutrophils % Seg Neuts % (Manual) Lymphocytes % (Manual) Seg Neutrophils # Seg Neutrophils # Man Lymphocytes # (Manual) PT INR POC ABG pH POC ABG pCO2 POC ABG pO2 Sodium Potassium Chloride Carbon Dioxide BUN Creatinine Glucose POC Glucose 137 H 157 H 155 H Calcium AST Total Creatine Kinase CK-MB (CK-2) Troponin T NT-Pro-B Natriuret Pep Total Protein Albumin HDL Cholesterol 01/19/19 01/19/19 01/19/19 18:24 21:08 23:33 WBC RBC Hgb Hct MCV RDW Plt Count Lymph % (Auto) Lymph # Seg Neutrophils % Seg Neuts % (Manual) Lymphocytes % (Manual) Seg Neutrophils # Seg Neutrophils # Man Lymphocytes # (Manual) PT INR POC ABG pH 7.508 H POC ABG pCO2 34.2 L POC ABG pO2 Sodium Potassium Chloride Carbon Dioxide BUN Creatinine Glucose POC Glucose 145 H 156 H Calcium AST Total Creatine Kinase CK-MB (CK-2) Troponin T NT-Pro-B Natriuret Pep Total Protein Albumin HDL Cholesterol 01/20/19 01/20/19 01/20/19 05:12 11:42 17:36 WBC RBC Hgb Hct MCV RDW Plt Count Lymph % (Auto) Lymph # Seg Neutrophils % Seg Neuts % (Manual) Lymphocytes % (Manual) Seg Neutrophils # Seg Neutrophils # Man Lymphocytes # (Manual) PT INR POC ABG pH POC ABG pCO2 POC ABG pO2 Sodium Potassium Chloride Carbon Dioxide BUN Creatinine Glucose POC Glucose 152 H 159 H 169 H Calcium AST Total Creatine Kinase CK-MB (CK-2) Troponin T NT-Pro-B Natriuret Pep Total Protein Albumin HDL Cholesterol 01/20/19 01/21/19 01/21/19 23:29 05:30 05:34 WBC RBC Hgb Hct MCV RDW Plt Count Lymph % (Auto) Lymph # Seg Neutrophils % Seg Neuts % (Manual) Lymphocytes % (Manual) Seg Neutrophils # Seg Neutrophils # Man Lymphocytes # (Manual) PT INR POC ABG pH 7.616 H POC ABG pCO2 POC ABG pO2 71 L Sodium Potassium Chloride Carbon Dioxide BUN Creatinine Glucose POC Glucose 139 H 138 H Calcium AST Total Creatine Kinase CK-MB (CK-2) Troponin T NT-Pro-B Natriuret Pep Total Protein Albumin HDL Cholesterol 01/21/19 01/21/19 01/22/19 12:41 18:47 00:07 WBC RBC Hgb Hct MCV RDW Plt Count Lymph % (Auto) Lymph # Seg Neutrophils % Seg Neuts % (Manual) Lymphocytes % (Manual) Seg Neutrophils # Seg Neutrophils # Man Lymphocytes # (Manual) PT INR POC ABG pH POC ABG pCO2 POC ABG pO2 Sodium Potassium Chloride Carbon Dioxide BUN Creatinine Glucose POC Glucose 154 H 174 H 163 H Calcium AST Total Creatine Kinase CK-MB (CK-2) Troponin T NT-Pro-B Natriuret Pep Total Protein Albumin HDL Cholesterol 01/22/19 01/22/19 01/22/19 04:35 05:46 12:18 WBC RBC Hgb Hct MCV RDW Plt Count Lymph % (Auto) Lymph # Seg Neutrophils % Seg Neuts % (Manual) Lymphocytes % (Manual) Seg Neutrophils # Seg Neutrophils # Man Lymphocytes # (Manual) PT INR POC ABG pH 7.522 H POC ABG pCO2 POC ABG pO2 Sodium Potassium Chloride Carbon Dioxide BUN Creatinine Glucose POC Glucose 159 H 137 H Calcium AST Total Creatine Kinase CK-MB (CK-2) Troponin T NT-Pro-B Natriuret Pep Total Protein Albumin HDL Cholesterol 01/22/19 01/22/19 01/22/19 15:00 15:00 18:13 WBC RBC 2.92 L Hgb 8.4 L Hct 25.6 L MCV RDW Plt Count Lymph % (Auto) Lymph # Seg Neutrophils % Seg Neuts % (Manual) Lymphocytes % (Manual) Seg Neutrophils # Seg Neutrophils # Man Lymphocytes # (Manual) PT INR POC ABG pH POC ABG pCO2 POC ABG pO2 Sodium Potassium Chloride 97.0 L Carbon Dioxide BUN 37 H Creatinine Glucose 162 H POC Glucose 159 H Calcium 8.2 L AST Total Creatine Kinase CK-MB (CK-2) Troponin T NT-Pro-B Natriuret Pep Total Protein Albumin HDL Cholesterol 01/22/19 01/23/19 01/23/19 22:45 00:01 05:10 WBC RBC 2.92 L Hgb 8.5 L Hct 25.4 L MCV RDW Plt Count Lymph % (Auto) 6.3 L Lymph # 0.6 L Seg Neutrophils % 86.3 H Seg Neuts % (Manual) Lymphocytes % (Manual) Seg Neutrophils # 8.9 H Seg Neutrophils # Man Lymphocytes # (Manual) PT INR POC ABG pH POC ABG pCO2 POC ABG pO2 Sodium Potassium Chloride Carbon Dioxide BUN Creatinine Glucose POC Glucose 178 H 155 H Calcium AST Total Creatine Kinase CK-MB (CK-2) Troponin T NT-Pro-B Natriuret Pep Total Protein Albumin HDL Cholesterol 01/23/19 01/23/19 01/23/19 11:31 17:49 Unknown WBC RBC Hgb Hct MCV RDW Plt Count Lymph % (Auto) Lymph # Seg Neutrophils % Seg Neuts % (Manual) Lymphocytes % (Manual) Seg Neutrophils # Seg Neutrophils # Man Lymphocytes # (Manual) PT INR POC ABG pH POC ABG pCO2 POC ABG pO2 Sodium Potassium Chloride 95.4 L Carbon Dioxide BUN 37 H Creatinine Glucose 144 H POC Glucose 161 H 142 H Calcium AST 88 H Total Creatine Kinase CK-MB (CK-2) Troponin T NT-Pro-B Natriuret Pep Total Protein 6.0 L Albumin 2.9 L HDL Cholesterol 01/24/19 01/24/19 01/24/19 00:21 05:36 12:35 WBC RBC Hgb Hct MCV RDW Plt Count Lymph % (Auto) Lymph # Seg Neutrophils % Seg Neuts % (Manual) Lymphocytes % (Manual) Seg Neutrophils # Seg Neutrophils # Man Lymphocytes # (Manual) PT INR POC ABG pH POC ABG pCO2 POC ABG pO2 Sodium Potassium Chloride Carbon Dioxide BUN Creatinine Glucose POC Glucose 163 H 147 H 263 H Calcium AST Total Creatine Kinase CK-MB (CK-2) Troponin T NT-Pro-B Natriuret Pep Total Protein Albumin HDL Cholesterol 01/24/19 01/24/19 01/24/19 17:46 23:07 Unknown WBC RBC 2.90 L Hgb 8.3 L Hct 25.0 L MCV RDW Plt Count Lymph % (Auto) Lymph # Seg Neutrophils % Seg Neuts % (Manual) Lymphocytes % (Manual) Seg Neutrophils # Seg Neutrophils # Man Lymphocytes # (Manual) PT INR POC ABG pH POC ABG pCO2 POC ABG pO2 Sodium Potassium Chloride Carbon Dioxide BUN Creatinine Glucose POC Glucose 161 H 167 H Calcium AST Total Creatine Kinase CK-MB (CK-2) Troponin T NT-Pro-B Natriuret Pep Total Protein Albumin HDL Cholesterol 01/24/19 01/25/19 01/25/19 Unknown 05:15 05:15 WBC RBC 2.90 L Hgb 8.4 L Hct 25.2 L MCV RDW Plt Count Lymph % (Auto) Lymph # Seg Neutrophils % Seg Neuts % (Manual) Lymphocytes % (Manual) Seg Neutrophils # Seg Neutrophils # Man Lymphocytes # (Manual) PT INR POC ABG pH POC ABG pCO2 POC ABG pO2 Sodium 134 L 135 L Potassium Chloride 94.4 L 94.0 L Carbon Dioxide BUN 35 H 35 H Creatinine Glucose 151 H 128 H POC Glucose Calcium AST Total Creatine Kinase CK-MB (CK-2) Troponin T NT-Pro-B Natriuret Pep Total Protein Albumin HDL Cholesterol 01/25/19 01/25/19 01/25/19 05:15 05:35 11:09 WBC RBC Hgb Hct MCV RDW Plt Count Lymph % (Auto) Lymph # Seg Neutrophils % Seg Neuts % (Manual) Lymphocytes % (Manual) Seg Neutrophils # Seg Neutrophils # Man Lymphocytes # (Manual) PT 18.8 H INR 1.47 H POC ABG pH POC ABG pCO2 POC ABG pO2 Sodium Potassium Chloride Carbon Dioxide BUN Creatinine Glucose POC Glucose 126 H 149 H Calcium AST Total Creatine Kinase CK-MB (CK-2) Troponin T NT-Pro-B Natriuret Pep Total Protein Albumin HDL Cholesterol 01/25/19 01/25/19 01/26/19 17:24 23:41 00:09 WBC RBC Hgb Hct MCV RDW Plt Count Lymph % (Auto) Lymph # Seg Neutrophils % Seg Neuts % (Manual) Lymphocytes % (Manual) Seg Neutrophils # Seg Neutrophils # Man Lymphocytes # (Manual) PT INR POC ABG pH POC ABG pCO2 POC ABG pO2 Sodium Potassium Chloride Carbon Dioxide BUN Creatinine Glucose POC Glucose 140 H 142 H 156 H Calcium AST Total Creatine Kinase CK-MB (CK-2) Troponin T NT-Pro-B Natriuret Pep Total Protein Albumin HDL Cholesterol 01/26/19 01/26/19 01/26/19 05:05 06:35 06:35 WBC RBC 2.83 L Hgb 8.1 L Hct 24.4 L MCV RDW Plt Count Lymph % (Auto) Lymph # Seg Neutrophils % Seg Neuts % (Manual) Lymphocytes % (Manual) Seg Neutrophils # Seg Neutrophils # Man Lymphocytes # (Manual) PT INR POC ABG pH POC ABG pCO2 POC ABG pO2 Sodium Potassium Chloride 96.9 L Carbon Dioxide BUN 29 H Creatinine Glucose 141 H POC Glucose 159 H Calcium 8.3 L AST Total Creatine Kinase CK-MB (CK-2) Troponin T NT-Pro-B Natriuret Pep Total Protein Albumin HDL Cholesterol 01/26/19 01/26/19 01/27/19 13:16 19:10 00:08 WBC RBC Hgb Hct MCV RDW Plt Count Lymph % (Auto) Lymph # Seg Neutrophils % Seg Neuts % (Manual) Lymphocytes % (Manual) Seg Neutrophils # Seg Neutrophils # Man Lymphocytes # (Manual) PT INR POC ABG pH POC ABG pCO2 POC ABG pO2 Sodium Potassium Chloride Carbon Dioxide BUN Creatinine Glucose POC Glucose 159 H 146 H 140 H Calcium AST Total Creatine Kinase CK-MB (CK-2) Troponin T NT-Pro-B Natriuret Pep Total Protein Albumin HDL Cholesterol 01/27/19 01/27/19 01/27/19 03:30 03:30 06:23 WBC RBC 2.85 L Hgb 8.3 L Hct 24.8 L MCV RDW Plt Count Lymph % (Auto) Lymph # Seg Neutrophils % Seg Neuts % (Manual) Lymphocytes % (Manual) Seg Neutrophils # Seg Neutrophils # Man Lymphocytes # (Manual) PT INR POC ABG pH POC ABG pCO2 POC ABG pO2 Sodium 136 L Potassium Chloride 97.1 L Carbon Dioxide BUN 26 H Creatinine Glucose 129 H POC Glucose 154 H Calcium AST Total Creatine Kinase CK-MB (CK-2) Troponin T NT-Pro-B Natriuret Pep Total Protein Albumin HDL Cholesterol
[2019-01-28] MEDS: DUONEB *Not for PRN Use IH SCH ×4 (01:20→19:31)
[2019-01-28] MEDS: LASIX PO SCH ×2 (05:16→17:18)
[2019-01-28] MEDS: D5W/0.45% NACL/KCL 20 MEQ 20 MEQ/1,000 ML BAG IV SCH (06:00)
[2019-01-28] MEDS: HumaLOG SUB-Q SCH ×3 (07:08→17:18)
--- NOTE | 2019-01-28 09:23 | Progress Note ---
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 supportive care Neurology following Sepsis due to pneumonia On iv Abx. ID Physician following Pneumonia CARMELINA due to ATN Improving Seizure activity COPD/Emphesema Was not on home Oxygen History of stroke in 1982 Full code status Prognosis guarded The high probability of a clinically significant, sudden or life threatening deterioration of the [3] system(s) required my full and direct attention, intervention and personal management. The aggregate critical care time was [33] minutes. This time is in addition to time spent performing reported procedures but includes the following: [x] Data Review and interpretation [x] Patient assessment and monitoring of vital signs [x] Documentation [x] Medication orders and management History Interval history: Still intubated Still unresponsive Tracheostomy done 01/25 PEG not done yet Hospitalist Physical - Physical exam Narrative exam: Gen: Not in acute distres HEENT: Normocephalic, atraumatic Neck: supple, no JVD, tracheostomy midline Heart: S1 and S2 reg, no murmurs, rubs or gallop Lungs: Clear, no crackles, no wheeze Abd: soft, non tender, mild distended, BS present Ext: No edema, no clubbing, no cyanosis, Neuro: Comatose, Not following commands - Constitutional Vitals: Temp Pulse Resp BP Pulse Ox 97.3 F L 87 23 105/59 100 01/28/19 08:00 01/28/19 08:00 01/28/19 08:00 01/28/19 08:00 01/28/19 08:00 General appearance: Present: no acute distress, other (intubated) Results - Labs CBC & Chem 7: 01/27/19 03:30 01/27/19 03:30 Labs: Laboratory Last Values WBC 9.6 K/mm3 (4.5-11.0) 01/27/19 03:30 RBC 2.85 M/mm3 (3.65-5.03) L 01/27/19 03:30 Hgb 8.3 gm/dl (10.1-14.3) L 01/27/19 03:30 Hct 24.8 % (30.3-42.9) L 01/27/19 03:30 MCV 87 fl (79-97) 01/27/19 03:30 MCH 29 pg (28-32) 01/27/19 03:30 MCHC 33 % (30-34) 01/27/19 03:30 RDW 14.0 % (13.2-15.2) 01/27/19 03:30 Plt Count 321 K/mm3 (140-440) 01/27/19 03:30 Lymph % (Auto) 6.3 % (13.4-35.0) L 01/23/19 00:01 [place] % (Auto) 6.6 % (0.0-7.3) 01/23/19 00:01 Eos % (Auto) 0.5 % (0.0-4.3) 01/23/19 00:01 Baso % (Auto) 0.3 % (0.0-1.8) 01/23/19 00:01 Lymph # 0.6 K/mm3 (1.2-5.4) L 01/23/19 00:01 [place] # 0.7 K/mm3 (0.0-0.8) 01/23/19 00:01 Eos # 0.1 K/mm3 (0.0-0.4) 01/23/19 00:01 Baso # 0.0 K/mm3 (0.0-0.1) 01/23/19 00:01 Add Manual Diff Complete 01/16/19 04:16 Total Counted 100 01/16/19 04:16 Seg Neutrophils % 86.3 % (40.0-70.0) H 01/23/19 00:01 Seg Neuts % (Manual) 74.0 % (40.0-70.0) H 01/16/19 04:16 22.0 % 01/16/19 04:16 2.0 % (13.4-35.0) L 01/16/19 04:16 Reactive Lymphs % (Man) 0 % 01/16/19 04:16 2.0 % (0.0-7.3) 01/16/19 04:16 0 % (0.0-4.3) 01/16/19 04:16 0 % (0.0-1.8) 01/16/19 04:16 0 % 01/16/19 04:16 0 % 01/16/19 04:16 0 % 01/16/19 04:16 0 % 01/16/19 04:16 Nucleated RBC % Not Reportable 01/16/19 04:16 Seg Neutrophils # 8.9 K/mm3 (1.8-7.7) H 01/23/19 00:01 Seg Neutrophils # Man 8.4 K/mm3 (1.8-7.7) H 01/16/19 04:16 Band Neutrophils # 2.5 K/mm3 01/16/19 04:16 0.2 K/mm3 (1.2-5.4) L 01/16/19 04:16 Abs React Lymphs (Man) 0.0 K/mm3 01/16/19 04:16 0.2 K/mm3 (0.0-0.8) 01/16/19 04:16 0.0 K/mm3 (0.0-0.4) 01/16/19 04:16 0.0 K/mm3 (0.0-0.1) 01/16/19 04:16 0.0 K/mm3 01/16/19 04:16 0.0 K/mm3 01/16/19 04:16 0.0 K/mm3 01/16/19 04:16 Blast Cells # 0.0 K/mm3 01/16/19 04:16 WBC Morphology Not Reportable 01/16/19 04:16 Hypersegmented Neuts Not Reportable 01/16/19 04:16 Hyposegmented Neuts Not Reportable 01/16/19 04:16 Hypogranular Neuts Not Reportable 01/16/19 04:16 Not Reportable 01/16/19 04:16 Not Reportable 01/16/19 04:16 Not Reportable 01/16/19 04:16 Not Reportable 01/16/19 04:16 Not Reportable 01/16/19 04:16 Not Reportable 01/16/19 04:16 Consistent w auto 01/16/19 04:16 Not Reportable 01/16/19 04:16 Plt Clumps, EDTA Not Reportable 01/16/19 04:16 Not Reportable 01/16/19 04:16 Not Reportable 01/16/19 04:16 Not Reportable 01/16/19 04:16 Plt Morphology Comment Not Reportable 01/16/19 04:16 RBC Morphology Normal 01/16/19 04:16 Dimorphic RBCs Not Reportable 01/16/19 04:16 Not Reportable 01/16/19 04:16 Not Reportable 01/16/19 04:16 Not Reportable 01/16/19 04:16 Not Reportable 01/16/19 04:16 Not Reportable 01/16/19 04:16 Not Reportable 01/16/19 04:16 Not Reportable 01/16/19 04:16 Not Reportable 01/16/19 04:16 Not Reportable 01/16/19 04:16 Not Reportable 01/16/19 04:16 Not Reportable 01/16/19 04:16 Not Reportable 01/16/19 04:16 Not Reportable 01/16/19 04:16 Not Reportable 01/16/19 04:16 Not Reportable 01/16/19 04:16 Not Reportable 01/16/19 04:16 Not Reportable 01/16/19 04:16 Not Reportable 01/16/19 04:16 Not Reportable 01/16/19 04:16 Acanthocytes (Spur) Not Reportable 01/16/19 04:16 Rouleaux Not Reportable 01/16/19 04:16 Not Reportable 01/16/19 04:16 Not Reportable 01/16/19 04:16 Not Reportable 01/16/19 04:16 Not Reportable 01/16/19 04:16 Hem Pathologist Commnt No 01/16/19 04:16 PT 18.8 Sec. (12.2-14.9) H 01/25/19 05:15 INR 1.47 (0.87-1.13) H 01/25/19 05:15 APTT 36.0 Sec. (24.2-36.6) 01/15/19 07:50 Heparin Anti-Xa, Unfract Negative (Negative) 01/19/19 Unknown POC ABG pH 7.522 (7.35-7.45) H 01/22/19 04:35 POC ABG pCO2 36.3 (35-45) 01/22/19 04:35 POC ABG pO2 94 (80-105) 01/22/19 04:35 POC ABG HCO3 29.8 (22-26 mml/L) 01/22/19 04:35 POC ABG Total CO2 31 (23-27mmol/L) 01/22/19 04:35 POC ABG O2 Sat 98 01/22/19 04:35 POC ABG Base Excess 7 ((-2) - (+3)mmol/L) 01/22/19 04:35 25 % 01/22/19 04:35 Sodium 136 mmol/L (137-145) L 01/27/19 03:30 Potassium 3.6 mmol/L (3.6-5.0) 01/27/19 03:30 Chloride 97.1 mmol/L (98-107) L 01/27/19 03:30 Carbon Dioxide 28 mmol/L (22-30) 01/27/19 03:30 15 mmol/L 01/27/19 03:30 BUN 26 mg/dL (7-17) H 01/27/19 03:30 0.7 mg/dL (0.7-1.2) 01/27/19 03:30 Estimated GFR > 60 ml/min 01/27/19 03:30 37 % 01/27/19 03:30 Glucose 129 mg/dL (65-100) H 01/27/19 03:30 POC Glucose 139 (70-105) H 01/28/19 04:35 6.0 % (4-6) 01/15/19 11:53 Calcium 8.7 mg/dL (8.4-10.2) 01/27/19 03:30 0.30 mg/dL (0.1-1.2) 01/23/19 Unknown AST 88 units/L (5-40) H 01/23/19 Unknown ALT 31 units/L (7-56) 01/23/19 Unknown 48 units/L (35-129) 01/23/19 Unknown 1430 units/L (30-135) H 01/15/19 17:52 CK-MB (CK-2) 13.5 ng/mL (0.0-4.0) H 01/15/19 17:52 CK-MB (CK-2) Rel Index 0.9 (0-4) 01/15/19 17:52 0.036 ng/mL (0.00-0.029) H D 01/15/19 17:52 NT-Pro-B Natriuret Pep 5346 pg/mL (0-900) H 01/15/19 07:50 6.0 g/dL (6.3-8.2) L 01/23/19 Unknown 2.9 g/dL (3.9-5) L 01/23/19 Unknown 0.9 % 01/23/19 Unknown Triglycerides 75 mg/dL (2-149) 01/15/19 17:52 Cholesterol 149 mg/dL (50-199) 01/15/19 17:52 84 mg/dL (50-130) 01/15/19 17:52 65 mg/dL (40-59) H 01/15/19 17:52 2.29 % 01/15/19 17:52 See scanned report 01/19/19 Unknown Yellow (Yellow) 01/21/19 16:10 Clear (Clear) 01/21/19 16:10 6.0 (5.0-7.0) 01/21/19 16:10 Ur Specific [place] 1.015 (1.003-1.030) 01/21/19 16:10 <15 mg/dl mg/dL (Negative) 01/21/19 16:10 Neg mg/dL (Negative) 01/21/19 16:10 Neg mg/dL (Negative) 01/21/19 16:10 Neg (Negative) 01/21/19 16:10 Neg (Negative) 01/21/19 16:10 Neg (Negative) 01/21/19 16:10 2.0 mg/dL (<2.0) 01/21/19 16:10 Ur Leukocyte Esterase Neg (Negative) 01/21/19 16:10 1.0 /HPF (0.0-6.0) 01/21/19 16:10 5.0 /HPF (0.0-6.0) 01/21/19 16:10 Presumptive negative 01/15/19 16:30 Presumptive negative 01/15/19 16:30 Ur Barbiturates Screen Presumptive negative 01/15/19 16:30 Ur Phencyclidine Scrn Presumptive negative 01/15/19 16:30 Ur Amphetamines Screen Presumptive negative 01/15/19 16:30 U Benzodiazepines Scrn Presumptive negative 01/15/19 16:30 Presumptive negative 01/15/19 16:30 U Marijuana (THC) Screen Presumptive negative 01/15/19 16:30 Disclamer 01/15/19 16:30 Heparin-induced Plt Ab Negative (Negative) 01/19/19 Unknown UF Heparin High Dose 3 % Release 01/19/19 Unknown JOSEFA UFH Low Dose 0.1 4 % Release 01/19/19 Unknown JOSEFA UFH Low Dose 0.5 5 % Release 01/19/19 Unknown C. difficile Tox (PCR) Negative (Negative) 01/16/19 00:00 Active Medications - Current Medications Current Medications: Generic Name Dose Route Start Last Admin Trade Name Freq PRN Reason Stop Dose Admin Acetaminophen 650 mg 01/16/19 09:37 01/20/19 00:24 Tylenol PO 650 mg Q4H PRN Administration Fever >101 Albuterol/Ipratropium 1 ampul 01/15/19 14:00 01/28/19 07:53 Duoneb *Not For Prn Use* IH 1 ampul Q6HRT DEON Administration Amlodipine Besylate 10 mg 01/24/19 12:00 01/27/19 09:51 Norvasc PO 10 mg DAILY DEON Administration Lipase/Protease/Amylase 1 each 01/15/19 14:37 Pancreaze 10,500 Unit FEEDTUBE PRN PRN For Clogged Feeding Tube Aspirin 81 mg 01/16/19 10:00 01/27/19 09:51 Baby Aspirin PO 81 mg QDAY DEON Administration Atorvastatin Calcium 20 mg 01/16/19 22:00 01/27/19 21:35 Lipitor PO 20 mg QHS DEON Administration Carvedilol 12.5 mg 01/24/19 22:00 01/27/19 21:39 Coreg PO 12.5 mg BID DEON Administration Famotidine 20 mg 01/22/19 10:00 01/27/19 09:52 Pepcid PO 20 mg DAILY DEON Administration Fondaparinux 2.5 mg 01/20/19 10:00 01/27/19 09:52 Arixtra SUB-Q 2.5 mg QDAY DEON Administration Furosemide 20 mg 01/19/19 18:00 01/28/19 05:16 Lasix PO 20 mg 0600,1800 DEON Administration Potassium Chloride/Dextrose/Sod Cl 20 meq in 1,000 mls @ 50 mls/hr 01/26/19 14:00 01/28/19 06:00 D5w/0.45% Nacl/Kcl 20 Meq IV 50 mls/hr DIRECT DEON Administration Insulin Human Lispro 0 unit 01/22/19 14:00 01/28/19 07:08 Humalog SUB-Q Not Given Q6HR [facility] Protocol Levetiracetam 750 mg 01/18/19 10:00 01/27/19 21:35 Keppra PO 750 mg BID DEON Administration Modafinil 100 mg 01/20/19 10:00 01/27/19 09:51 Provigil PO 100 mg QAM DEON Administration Pantoprazole Sodium 40 mg 01/27/19 10:00 01/27/19 21:35 Protonix IV 40 mg BID DEON Administration Simple Syrup 15 ml 01/15/19 14:37 Simple Syrup FEEDTUBE PRN PRN Hypoglycemia Simple Syrup 30 ml 01/15/19 14:37 Simple Syrup FEEDTUBE PRN PRN Hypoglycemia Sodium Bicarbonate 325 mg 01/15/19 14:37 Sodium Bicarbonate FEEDTUBE PRN PRN For Clogged Feeding Tube Sodium Chloride 10 ml 01/15/19 22:00 01/27/19 21:35 Sodium Chloride Flush Syringe 10 Ml IV 10 ml BID DEON Administration Sodium Chloride 10 ml 01/15/19 10:34 Sodium Chloride Flush Syringe 10 Ml IV PRN PRN LINE FLUSH Triamcinolone Acetonide 1 applic 01/24/19 14:00 01/27/19 21:36 Kenalog TP 1 applic BID DEON Administration Nutrition/Malnutrition Assess - Dietary Evaluation Nutrition/Malnutrition Findings: Nutrition Notes Start: 01/15/19 14:28 Freq: Status: Active Protocol: Document 01/25/19 08:40 CP (Rec: 01/25/19 08:41 CP [id number]) Co-Sign 01/25/19 08:40 LP Nutrition Notes Initial or Follow up Brief Note Current Diagnosis COPD,Coronary Artery Disease, Hypertension,Heart Failure Other Pertinent Diagnosis s/p cardiorespiratory arrest ( at home) Current Diet NPO After Midnight Subjective/Other Information F/U for TF tolerance. Pt is currently NPO after midnight awaiting operation per MD note . Nutrition Intervention Follow-Up By: 01/29/19 Additional Comments F/U: TF to start/TF tolerance
[2019-01-28] MEDS: KEPPRA PO SCH ×2 (09:31→21:18)
[2019-01-28] MEDS: BABY ASPIRIN PO SCH (09:32)
[2019-01-28] MEDS: PROVIGIL PO SCH (09:32)
[2019-01-28] MEDS: PEPCID PO SCH (09:32)
[2019-01-28] MEDS: NORVASC PO SCH (09:32)
[2019-01-28] MEDS: COREG PO SCH ×2 (09:32→21:17)
[2019-01-28] MEDS: KENALOG TP SCH ×2 (09:33→21:25)
[2019-01-28] MEDS: ARIXTRA SUB-Q SCH (09:33)
[2019-01-28] MEDS: SODIUM CHLORIDE FLUSH SYRINGE 10 ML IV PRN ×2 (09:34→09:35)
[2019-01-28] MEDS: SODIUM CHLORIDE FLUSH SYRINGE 10 ML IV SCH ×2 (09:44→21:19)
[2019-01-28] MEDS: PROTONIX IV SCH ×2 (09:49→21:29)
[2019-01-28 12:14] LABS: Hematocrit 22.9 % (30.3-42.9); Hemoglobin 7.9 gm/dl (10.1-14.3); Mean Corpuscular HGB Conc 34 % (30-34); Mean Corpuscular Volume 86 fl (79-97); Platelet Count 340 K/mm3 (140-440); Red Blood Count 2.67 M/mm3 (3.65-5.03); Red Cell Distribution Width 14.2 % (13.2-15.2)
[2019-01-28 12:37] LABS: BUN/Creatinine Ratio 23; Blood Urea Nitrogen 18 mg/dL (7-17); Hemolysis Index 2
--- NOTE | 2019-01-28 12:41 | XRay Report ---
PROCEDURE: XR ABDOMEN 1V AP TECHNIQUE: KUB HISTORY: ileus COMPARISONS: KUB January 27, 2019 FINDINGS: NG tube with tip stomach. Stable position. Gas throughout the colon. Moderate stool right colon. Minimal small bowel gas. Bowel gas pattern is s table. Findings again compatible with ileus. Right upper quadrant calcifications which may represent cholelithiasis Moderate lumbar spondylosis. No acute bony abnormality IMPRESSION: No significant interval change in bowel gas pattern. Pattern again likely reflects ileus.. This document is electronically signed by Regis Arciniega MD., Jan 28 2019 12:39:28 PM ET
[2019-01-28] MEDS: DULCOLAX PR SCH (21:26)
[2019-01-28] MEDS: REGLAN IV SCH (21:26)
[2019-01-29] MEDS: HumaLOG SUB-Q SCH ×4 (00:12→18:11)
[2019-01-29] MEDS: REGLAN IV SCH ×4 (00:13→20:00)
[2019-01-29] MEDS: DUONEB *Not for PRN Use IH SCH ×4 (02:47→19:40)
[2019-01-29] MEDS: D5W/0.45% NACL/KCL 20 MEQ 20 MEQ/1,000 ML BAG IV SCH ×2 (03:06→22:25)
[2019-01-29] MEDS: LASIX PO SCH ×2 (05:43→18:10)
--- NOTE | 2019-01-29 09:09 | Progress Note ---
Assessment and Plan Assessment and plan: Patient is 73 yo with hypertension, CAD s/p stent, COPD/emphesema, not on home Oxygen. She was Brought in by paramedics 01/15/19 after cardiorespiratory arrest at home. History obtained from daughter and granddaughter at bedside. Patient called a family member that she had more shortness of breath . Family member lives in same Apartment complex, same floor, came to her, found her on floor not breathing, started CPR, called paramedics. She was in jhon PEA, given 2 rounds Epinephrine, CPR, intubated , resuscitated, and brought to ED. Patient was seen and evaluated in ED and admitted to ICU. She was evaluated by Pulmonology/Structural Worker. She had seizures later same day, was started on keppra. Shwe had CARMELINA on presentation, resolved in few days. She remained comatose, acute respiratory failure vent dependent. Trach and PEG was recommended. Tracheostomy done 01/25. PEG not done yet because of abdominal distension. She has poor prognosis. 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 supportive care Neurology following Sepsis due to pneumonia On iv Abx. ID Physician following Pneumonia CARMELINA due to ATN Improving Seizure activity COPD/Emphesema Was not on home Oxygen Thrombocytopenia History of stroke in 1982 Full code status Prognosis poor. The high probability of a clinically significant, sudden or life threatening deterioration of the [3] system(s) required my full and direct attention, intervention and personal management. The aggregate critical care time was [32] minutes. This time is in addition to time spent performing reported procedures but includes the following: [x] Data Review and interpretation [x] Patient assessment and monitoring of vital signs [x] Documentation [x] Medication orders and management History Interval history: Still intubated Still unresponsive Tracheostomy done 01/25 PEG not done yet Hospitalist Physical - Physical exam Narrative exam: Gen: Not in acute distres, on vent HEENT: Normocephalic, atraumatic Neck: supple, no JVD, tracheostomy midline Heart: S1 and S2 reg, no murmurs, rubs or gallop Lungs: Clear, no crackles, no wheeze Abd: soft, non tender, mild distended, BS present Ext: No edema, no clubbing, no cyanosis, Neuro: Comatose, Not following commands - Constitutional Vitals: Temp Pulse Resp BP Pulse Ox 98.5 F 84 26 H 107/61 100 01/29/19 08:00 01/29/19 08:48 01/29/19 08:48 01/29/19 08:21 01/29/19 08:21 General appearance: Present: no acute distress, other (intubated) Results - Labs CBC & Chem 7: 01/28/19 12:01 01/28/19 12:01 Labs: Laboratory Last Values WBC 8.9 K/mm3 (4.5-11.0) 01/28/19 12:01 RBC 2.67 M/mm3 (3.65-5.03) L 01/28/19 12:01 Hgb 7.9 gm/dl (10.1-14.3) L 01/28/19 12:01 Hct 22.9 % (30.3-42.9) L 01/28/19 12:01 MCV 86 fl (79-97) 01/28/19 12:01 MCH 30 pg (28-32) 01/28/19 12:01 MCHC 34 % (30-34) 01/28/19 12:01 RDW 14.2 % (13.2-15.2) 01/28/19 12:01 Plt Count 340 K/mm3 (140-440) 01/28/19 12:01 Lymph % (Auto) 6.3 % (13.4-35.0) L 01/23/19 00:01 Nash % (Auto) 6.6 % (0.0-7.3) 01/23/19 00:01 Eos % (Auto) 0.5 % (0.0-4.3) 01/23/19 00:01 Baso % (Auto) 0.3 % (0.0-1.8) 01/23/19 00:01 Lymph # 0.6 K/mm3 (1.2-5.4) L 01/23/19 00:01 Nash # 0.7 K/mm3 (0.0-0.8) 01/23/19 00:01 Eos # 0.1 K/mm3 (0.0-0.4) 01/23/19 00:01 Baso # 0.0 K/mm3 (0.0-0.1) 01/23/19 00:01 Add Manual Diff Complete 01/16/19 04:16 Total Counted 100 01/16/19 04:16 Seg Neutrophils % 86.3 % (40.0-70.0) H 01/23/19 00:01 Seg Neuts % (Manual) 74.0 % (40.0-70.0) H 01/16/19 04:16 22.0 % 01/16/19 04:16 2.0 % (13.4-35.0) L 01/16/19 04:16 Reactive Lymphs % (Man) 0 % 01/16/19 04:16 2.0 % (0.0-7.3) 01/16/19 04:16 0 % (0.0-4.3) 01/16/19 04:16 0 % (0.0-1.8) 01/16/19 04:16 0 % 01/16/19 04:16 0 % 01/16/19 04:16 0 % 01/16/19 04:16 0 % 01/16/19 04:16 Nucleated RBC % Not Reportable 01/16/19 04:16 Seg Neutrophils # 8.9 K/mm3 (1.8-7.7) H 01/23/19 00:01 Seg Neutrophils # Man 8.4 K/mm3 (1.8-7.7) H 01/16/19 04:16 Band Neutrophils # 2.5 K/mm3 01/16/19 04:16 0.2 K/mm3 (1.2-5.4) L 01/16/19 04:16 Abs React Lymphs (Man) 0.0 K/mm3 01/16/19 04:16 0.2 K/mm3 (0.0-0.8) 01/16/19 04:16 0.0 K/mm3 (0.0-0.4) 01/16/19 04:16 0.0 K/mm3 (0.0-0.1) 01/16/19 04:16 0.0 K/mm3 01/16/19 04:16 0.0 K/mm3 01/16/19 04:16 0.0 K/mm3 01/16/19 04:16 Blast Cells # 0.0 K/mm3 01/16/19 04:16 WBC Morphology Not Reportable 01/16/19 04:16 Hypersegmented Neuts Not Reportable 01/16/19 04:16 Hyposegmented Neuts Not Reportable 01/16/19 04:16 Hypogranular Neuts Not Reportable 01/16/19 04:16 Not Reportable 01/16/19 04:16 Not Reportable 01/16/19 04:16 Not Reportable 01/16/19 04:16 Not Reportable 01/16/19 04:16 Not Reportable 01/16/19 04:16 Not Reportable 01/16/19 04:16 Consistent w auto 01/16/19 04:16 Not Reportable 01/16/19 04:16 Plt Clumps, EDTA Not Reportable 01/16/19 04:16 Not Reportable 01/16/19 04:16 Not Reportable 01/16/19 04:16 Not Reportable 01/16/19 04:16 Plt Morphology Comment Not Reportable 01/16/19 04:16 RBC Morphology Normal 01/16/19 04:16 Dimorphic RBCs Not Reportable 01/16/19 04:16 Not Reportable 01/16/19 04:16 Not Reportable 01/16/19 04:16 Not Reportable 01/16/19 04:16 Not Reportable 01/16/19 04:16 Not Reportable 01/16/19 04:16 Not Reportable 01/16/19 04:16 Not Reportable 01/16/19 04:16 Not Reportable 01/16/19 04:16 Not Reportable 01/16/19 04:16 Not Reportable 01/16/19 04:16 Not Reportable 01/16/19 04:16 Not Reportable 01/16/19 04:16 Not Reportable 01/16/19 04:16 Not Reportable 01/16/19 04:16 Not Reportable 01/16/19 04:16 Not Reportable 01/16/19 04:16 Not Reportable 01/16/19 04:16 Not Reportable 01/16/19 04:16 Not Reportable 01/16/19 04:16 Acanthocytes (Spur) Not Reportable 01/16/19 04:16 Rouleaux Not Reportable 01/16/19 04:16 Not Reportable 01/16/19 04:16 Not Reportable 01/16/19 04:16 Not Reportable 01/16/19 04:16 Not Reportable 01/16/19 04:16 Hem Pathologist Commnt No 01/16/19 04:16 PT 18.8 Sec. (12.2-14.9) H 01/25/19 05:15 INR 1.47 (0.87-1.13) H 01/25/19 05:15 APTT 36.0 Sec. (24.2-36.6) 01/15/19 07:50 Heparin Anti-Xa, Unfract Negative (Negative) 01/19/19 Unknown POC ABG pH 7.488 (7.35-7.45) H 01/28/19 16:59 POC ABG pCO2 34.1 (35-45) L 01/28/19 16:59 POC ABG pO2 90 (80-105) 01/28/19 16:59 POC ABG HCO3 25.9 (22-26 mml/L) 01/28/19 16:59 POC ABG Total CO2 27 (23-27mmol/L) 01/28/19 16:59 POC ABG O2 Sat 98 01/28/19 16:59 POC ABG Base Excess 3 ((-2) - (+3)mmol/L) 01/28/19 16:59 28 % 01/28/19 16:59 Sodium 136 mmol/L (137-145) L 01/28/19 12:01 Potassium 3.5 mmol/L (3.6-5.0) L 01/28/19 12:01 Chloride 98.4 mmol/L (98-107) 01/28/19 12:01 Carbon Dioxide 26 mmol/L (22-30) 01/28/19 12:01 15 mmol/L 01/28/19 12:01 BUN 18 mg/dL (7-17) H 01/28/19 12:01 0.8 mg/dL (0.7-1.2) 01/28/19 12:01 Estimated GFR > 60 ml/min 01/28/19 12:01 23 % 01/28/19 12:01 Glucose 143 mg/dL (65-100) H 01/28/19 12:01 POC Glucose 187 (70-105) H 01/29/19 05:47 6.0 % (4-6) 01/15/19 11:53 Calcium 8.0 mg/dL (8.4-10.2) L 01/28/19 12:01 0.30 mg/dL (0.1-1.2) 01/23/19 Unknown AST 88 units/L (5-40) H 01/23/19 Unknown ALT 31 units/L (7-56) 01/23/19 Unknown 48 units/L (35-129) 01/23/19 Unknown 1430 units/L (30-135) H 01/15/19 17:52 CK-MB (CK-2) 13.5 ng/mL (0.0-4.0) H 01/15/19 17:52 CK-MB (CK-2) Rel Index 0.9 (0-4) 01/15/19 17:52 0.036 ng/mL (0.00-0.029) H D 01/15/19 17:52 NT-Pro-B Natriuret Pep 5346 pg/mL (0-900) H 01/15/19 07:50 6.0 g/dL (6.3-8.2) L 01/23/19 Unknown 2.9 g/dL (3.9-5) L 01/23/19 Unknown 0.9 % 01/23/19 Unknown Triglycerides 75 mg/dL (2-149) 01/15/19 17:52 Cholesterol 149 mg/dL (50-199) 01/15/19 17:52 84 mg/dL (50-130) 01/15/19 17:52 65 mg/dL (40-59) H 01/15/19 17:52 2.29 % 01/15/19 17:52 See scanned report 01/19/19 Unknown Yellow (Yellow) 01/21/19 16:10 Clear (Clear) 01/21/19 16:10 6.0 (5.0-7.0) 01/21/19 16:10 Ur Specific Winter 1.015 (1.003-1.030) 01/21/19 16:10 <15 mg/dl mg/dL (Negative) 01/21/19 16:10 Neg mg/dL (Negative) 01/21/19 16:10 Neg mg/dL (Negative) 01/21/19 16:10 Neg (Negative) 01/21/19 16:10 Neg (Negative) 01/21/19 16:10 Neg (Negative) 01/21/19 16:10 2.0 mg/dL (<2.0) 01/21/19 16:10 Ur Leukocyte Esterase Neg (Negative) 01/21/19 16:10 1.0 /HPF (0.0-6.0) 01/21/19 16:10 5.0 /HPF (0.0-6.0) 01/21/19 16:10 Presumptive negative 01/15/19 16:30 Presumptive negative 01/15/19 16:30 Ur Barbiturates Screen Presumptive negative 01/15/19 16:30 Ur Phencyclidine Scrn Presumptive negative 01/15/19 16:30 Ur Amphetamines Screen Presumptive negative 01/15/19 16:30 U Benzodiazepines Scrn Presumptive negative 01/15/19 16:30 Presumptive negative 01/15/19 16:30 U Marijuana (THC) Screen Presumptive negative 01/15/19 16:30 Disclamer 01/15/19 16:30 Heparin-induced Plt Ab Negative (Negative) 01/19/19 Unknown UF Heparin High Dose 3 % Release 01/19/19 Unknown JOSEFA UFH Low Dose 0.1 4 % Release 01/19/19 Unknown JOSEFA UFH Low Dose 0.5 5 % Release 01/19/19 Unknown C. difficile Tox (PCR) Negative (Negative) 01/16/19 00:00 Active Medications - Current Medications Current Medications: Generic Name Dose Route Start Last Admin Trade Name Freq PRN Reason Stop Dose Admin Acetaminophen 650 mg 01/16/19 09:37 01/20/19 00:24 Tylenol PO 650 mg Q4H PRN Administration Fever >101 Albuterol/Ipratropium 1 ampul 01/15/19 14:00 01/29/19 08:27 Duoneb *Not For Prn Use* IH 1 ampul Q6HRT DEON Administration Amlodipine Besylate 10 mg 01/24/19 12:00 01/28/19 09:32 Norvasc PO 10 mg DAILY DEON Administration Lipase/Protease/Amylase 1 each 01/15/19 14:37 Pancreaze 10,500 Unit FEEDTUBE PRN PRN For Clogged Feeding Tube Aspirin 81 mg 01/16/19 10:00 01/28/19 09:32 Baby Aspirin PO 81 mg QDAY DEON Administration Atorvastatin Calcium 20 mg 01/16/19 22:00 01/28/19 21:18 Lipitor PO 20 mg QHS DEON Administration Bisacodyl 10 mg 01/28/19 19:00 01/28/19 21:[address] 01/31/19 18:59 10 mg QDAY DEON Administration Carvedilol 12.5 mg 01/24/19 22:00 01/28/19 21:17 Coreg PO 12.5 mg BID DEON Administration Fondaparinux 2.5 mg 01/20/19 10:00 01/28/19 09:33 Arixtra SUB-Q 2.5 mg QDAY DEON Administration Furosemide 20 mg 01/19/19 18:00 01/29/19 05:43 Lasix PO 20 mg 0600,1800 DEON Administration Potassium Chloride/Dextrose/Sod Cl 20 meq in 1,000 mls @ 50 mls/hr 01/26/19 14:00 01/29/19 03:06 D5w/0.45% Nacl/Kcl 20 Meq IV 50 mls/hr DIRECT DEON Administration Insulin Human Lispro 0 unit 01/22/19 14:00 01/29/19 05:48 Humalog SUB-Q 2 unit Q6HR DEON Administration Protocol Levetiracetam 750 mg 01/18/19 10:00 01/28/19 21:18 Keppra PO 750 mg BID DEON Administration Metoclopramide HCl 5 mg 01/28/19 19:00 01/29/19 06:06 Reglan IV 5 mg Q6H DEON Administration Modafinil 100 mg 01/20/19 10:00 01/28/19 09:32 Provigil PO 100 mg QAM DEON Administration Pantoprazole Sodium 40 mg 01/27/19 10:00 01/28/19 21:29 Protonix IV 40 mg BID DEON Administration Simple Syrup 15 ml 01/15/19 14:37 Simple Syrup FEEDTUBE PRN PRN Hypoglycemia Simple Syrup 30 ml 01/15/19 14:37 Simple Syrup FEEDTUBE PRN PRN Hypoglycemia Sodium Bicarbonate 325 mg 01/15/19 14:37 Sodium Bicarbonate FEEDTUBE PRN PRN For Clogged Feeding Tube Sodium Chloride 10 ml 01/15/19 22:00 01/28/19 21:19 Sodium Chloride Flush Syringe 10 Ml IV 10 ml BID DEON Administration Sodium Chloride 10 ml 01/15/19 10:34 01/28/19 09:35 Sodium Chloride Flush Syringe 10 Ml IV 10 ml PRN PRN Administration LINE FLUSH Triamcinolone Acetonide 1 applic 01/24/19 14:00 01/28/19 21:25 Kenalog TP 1 applic BID DEON Administration Nutrition/Malnutrition Assess - Dietary Evaluation Nutrition/Malnutrition Findings: Nutrition Notes Start: 01/15/19 14:28 Freq: Status: Active Protocol: Document 01/25/19 08:40 CP (Rec: 01/25/19 08:41 CP [id number]) Co-Sign 01/25/19 08:40 LP Nutrition Notes Initial or Follow up Brief Note Current Diagnosis COPD,Coronary Artery Disease, Hypertension,Heart Failure Other Pertinent Diagnosis s/p cardiorespiratory arrest ( at home) Current Diet NPO After Midnight Subjective/Other Information F/U for TF tolerance. Pt is currently NPO after midnight awaiting operation per MD note . Nutrition Intervention Follow-Up By: 01/29/19 Additional Comments F/U: TF to start/TF tolerance
--- NOTE | 2019-01-29 09:53 | Progress Note ---
Assessment and Plan s/p Cardiopulmonary arrest, out of hospital, PEA with ROSC Acute hypoxic-hypercapnic respiratory failure on MVS Acute encephalopathy, metabolic Acute metabolic acidosis Acute renal injury Seizure activity Right lower lobe infiltrate, probably aspiration Pyrexia with leukocytosis Pulmonary HTN RVSP 60 Systolic heart failure EF 35-40% Thrombocytopenia Pyrexia Bowel regimen, enema Continue with bowel rest Trachesotomy care, start ATP trials as tolerated to start today VTE prophylaxis, resume enoxaparin, discontinue fondaparinux- HIT is negative Follow up [facility] in the morning, if ileus has resolved, then get IR consult for PEG placement -Wean supplemental oxygen to keep O2 sats 88-90% -Lung protective strategies -PRN ABGs/CXR -VAP bundle addressed -Monitor renal indices closely -Avoid nephrotoxic agents, adjust all medications for CrCL -Strict intake and output monitoring -Daily SAT & SBT -Stress ulcer prophylaxis -Tube feedings -Aspiration precautions -Accuchecks with glycemic control. Target glucose of 140-180 mg/dL -Bronchodilators with pulmonary hygiene per RT -Maintenance of sleep -wake cycle -Mobility as tolerated by hemodynamics -Influenza and pneumonia vaccination per protocol ..care plan discussed at length with RN/RT at the bedside PROGNOSIS:poor CONDITION: CRITICAL CODE STATUS: FULL CODE The high probability of a clinically significant, sudden or life-threatening deterioration of the [respiratory, neurology, ] system(s) required my full and direct attention, intervention and personal management. The aggregate critical care time was [30] minutes without overlap. Time includes spent on; [x] Data Review and interpretation [x] Patient assessment and monitoring of vital signs [x] Documentation [x] Medication orders and management Subjective Date of service: 01/29/19 Principal diagnosis: OOH cardiac arrest; Acute hypoxemic-hypercapnic Resp failure; PNA Interval history: Patient is seen today for: OOH cardiopulmonary arrest with ROSC; Acute hypoxemic-hypercapnic respiratory failure on MVS; acute encephalopathy; aspiration pneumonia; Seen and examined at bedside; 24-hour events reviewed; nursing and respiratory care staff consulted; no adverse overnight events reported to me; no fevers, no vomiting, no fevers, minimal output from NGT, continues to tolerate PSV trials, s/p trachesotomy. No bowel movement in the last 4 days per RN Objective Vital Signs - 12hr 01/28/19 01/28/19 01/28/19 22:00 23:00 23:30 Temperature Pulse Rate 87 83 81 Pulse Rate [ Anterior Bilateral Throughout] Pulse Rate [ From Monitor] Respiratory 25 H 26 H Rate Respiratory Rate [Anterior Bilateral Throughout] Blood Pressure 118/66 107/61 107/61 O2 Sat by Pulse 100 98 98 Oximetry 01/29/19 01/29/19 01/29/19 00:00 01:00 02:00 Temperature 97.4 F L Pulse Rate 82 79 84 Pulse Rate [ 85 Anterior Bilateral Throughout] Pulse Rate [ 86 From Monitor] Respiratory 26 H 24 25 H Rate Respiratory 28 H Rate [Anterior Bilateral Throughout] Blood Pressure 109/62 108/57 115/64 O2 Sat by Pulse 100 Oximetry 01/29/19 01/29/19 01/29/19 02:49 03:00 03:25 Temperature Pulse Rate 86 83 Pulse Rate [ 88 Anterior Bilateral Throughout] Pulse Rate [ From Monitor] Respiratory 29 H Rate Respiratory 24 Rate [Anterior Bilateral Throughout] Blood Pressure 115/64 119/63 O2 Sat by Pulse 98 99 Oximetry 01/29/19 01/29/19 01/29/19 04:00 05:00 06:00 Temperature 98.2 F Pulse Rate 83 85 83 Pulse Rate [ Anterior Bilateral Throughout] Pulse Rate [ 86 From Monitor] Respiratory 27 H 29 H 28 H Rate Respiratory Rate [Anterior Bilateral Throughout] Blood Pressure 112/62 104/59 110/61 O2 Sat by Pulse 99 100 Oximetry 01/29/19 01/29/19 01/29/19 07:00 08:00 08:21 Temperature 98.5 F Pulse Rate 83 82 83 Pulse Rate [ Anterior Bilateral Throughout] Pulse Rate [ 82 From Monitor] Respiratory 28 H 28 H 31 H Rate Respiratory Rate [Anterior Bilateral Throughout] Blood Pressure 115/64 101/58 107/61 O2 Sat by Pulse 100 100 100 Oximetry 01/29/19 01/29/19 08:28 08:48 Temperature Pulse Rate Pulse Rate [ 86 84 Anterior Bilateral Throughout] Pulse Rate [ From Monitor] Respiratory Rate Respiratory 30 H 26 H Rate [Anterior Bilateral Throughout] Blood Pressure O2 Sat by Pulse Oximetry Constitutional: no acute distress, other (elderly, atraumatic, normocephalic, chronically looking female) Eyes: non-icteric ENT: oropharynx moist, other (s/p Size #8 trachesotomy tube to MVS) Neck: supple, no lymphadenopathy, no JVD Effort: normal Ascultation: Bilateral: diminished breath sounds, rales (bases), rhonchi (scant), other (coarse breath sound bilaterally upper lobes anteriorly) Percussion: Bilateral: not dull Cardiovascular: regular rate and rhythm, other ( S1,S2, systolic murmur, no gallops or rubs) Gastrointestinal: normoactive bowel sounds, soft, non-tender, non-distended Integumentary: normal Extremities: no cyanosis, no edema, pulses normal, no ischemia or petechiae Neurologic: unable to assess Psychiatric: other (unable to assess secondary to mental status) CBC and BMP: 01/28/19 12:01 01/28/19 12:01 ABG, PT/INR, D-dimer: ABG POC ABG pH 7.488 (7.35-7.45) H 01/28/19 16:59 POC ABG pCO2 34.1 (35-45) L 01/28/19 16:59 POC ABG pO2 90 (80-105) 01/28/19 16:59 POC ABG HCO3 25.9 (22-26 mml/L) 01/28/19 16:59 POC ABG Total CO2 27 (23-27mmol/L) 01/28/19 16:59 POC ABG O2 Sat 98 01/28/19 16:59 PT/INR, D-dimer PT 18.8 Sec. (12.2-14.9) H 01/25/19 05:15 INR 1.47 (0.87-1.13) H 01/25/19 05:15 Abnormal lab findings: Abnormal Labs 01/15/19 01/15/19 01/15/19 07:50 07:50 07:50 WBC RBC Hgb Hct MCV 99 H RDW 16.7 H Plt Count 122 L Lymph % (Auto) Lymph # Seg Neutrophils % Seg Neuts % (Manual) Lymphocytes % (Manual) Seg Neutrophils # Seg Neutrophils # Man Lymphocytes # (Manual) PT 19.7 H INR 1.56 H POC ABG pH POC ABG pCO2 POC ABG pO2 Sodium Potassium Chloride Carbon Dioxide 11 L BUN Creatinine 1.4 H Glucose 268 H POC Glucose Calcium AST 57 H Total Creatine Kinase CK-MB (CK-2) Troponin T NT-Pro-B Natriuret Pep 5346 H Total Protein Albumin 3.6 L HDL Cholesterol 01/15/19 01/15/19 01/15/19 09:56 11:53 17:52 WBC RBC Hgb Hct MCV RDW Plt Count Lymph % (Auto) Lymph # Seg Neutrophils % Seg Neuts % (Manual) Lymphocytes % (Manual) Seg Neutrophils # Seg Neutrophils # Man Lymphocytes # (Manual) PT INR POC ABG pH 7.186 L POC ABG pCO2 46.4 H POC ABG pO2 Sodium Potassium Chloride Carbon Dioxide BUN Creatinine Glucose POC Glucose Calcium AST Total Creatine Kinase 683 H 1430 H CK-MB (CK-2) 9.5 H 13.5 H Troponin T 0.036 H D NT-Pro-B Natriuret Pep Total Protein Albumin HDL Cholesterol 65 H 01/15/19 01/15/19 01/16/19 18:31 21:46 02:14 WBC RBC Hgb Hct MCV RDW Plt Count Lymph % (Auto) Lymph # Seg Neutrophils % Seg Neuts % (Manual) Lymphocytes % (Manual) Seg Neutrophils # Seg Neutrophils # Man Lymphocytes # (Manual) PT INR POC ABG pH POC ABG pCO2 31.8 L POC ABG pO2 167 H Sodium Potassium Chloride Carbon Dioxide BUN Creatinine Glucose POC Glucose 134 H 136 H Calcium AST Total Creatine Kinase CK-MB (CK-2) Troponin T NT-Pro-B Natriuret Pep Total Protein Albumin HDL Cholesterol 01/16/19 01/16/19 01/16/19 04:16 04:16 05:05 WBC 11.4 H RBC Hgb Hct MCV RDW Plt Count 105 L Lymph % (Auto) Lymph # Seg Neutrophils % Seg Neuts % (Manual) 74.0 H Lymphocytes % (Manual) 2.0 L Seg Neutrophils # Seg Neutrophils # Man 8.4 H Lymphocytes # (Manual) 0.2 L PT INR POC ABG pH 7.458 H POC ABG pCO2 31.4 L POC ABG pO2 135 H Sodium Potassium 3.3 L Chloride Carbon Dioxide 21 L D BUN 24 H Creatinine 1.5 H Glucose 141 H POC Glucose Calcium 8.1 L AST 71 H Total Creatine Kinase CK-MB (CK-2) Troponin T NT-Pro-B Natriuret Pep Total Protein 6.2 L Albumin 3.5 L HDL Cholesterol 01/16/19 01/16/19 01/16/19 05:24 13:42 21:08 WBC RBC Hgb Hct MCV RDW Plt Count Lymph % (Auto) Lymph # Seg Neutrophils % Seg Neuts % (Manual) Lymphocytes % (Manual) Seg Neutrophils # Seg Neutrophils # Man Lymphocytes # (Manual) PT INR POC ABG pH POC ABG pCO2 POC ABG pO2 Sodium Potassium Chloride Carbon Dioxide BUN Creatinine Glucose POC Glucose 137 H 129 H 122 H Calcium AST Total Creatine Kinase CK-MB (CK-2) Troponin T NT-Pro-B Natriuret Pep Total Protein Albumin HDL Cholesterol 01/17/19 01/17/19 01/17/19 02:18 04:23 05:13 WBC RBC Hgb Hct MCV RDW Plt Count Lymph % (Auto) Lymph # Seg Neutrophils % Seg Neuts % (Manual) Lymphocytes % (Manual) Seg Neutrophils # Seg Neutrophils # Man Lymphocytes # (Manual) PT INR POC ABG pH 7.479 H POC ABG pCO2 30.0 L POC ABG pO2 141 H Sodium Potassium Chloride Carbon Dioxide BUN Creatinine Glucose POC Glucose 139 H 128 H Calcium AST Total Creatine Kinase CK-MB (CK-2) Troponin T NT-Pro-B Natriuret Pep Total Protein Albumin HDL Cholesterol 01/17/19 01/17/19 01/17/19 10:22 15:59 18:45 WBC RBC Hgb Hct MCV RDW Plt Count Lymph % (Auto) Lymph # Seg Neutrophils % Seg Neuts % (Manual) Lymphocytes % (Manual) Seg Neutrophils # Seg Neutrophils # Man Lymphocytes # (Manual) PT INR POC ABG pH POC ABG pCO2 POC ABG pO2 Sodium Potassium Chloride Carbon Dioxide BUN Creatinine Glucose POC Glucose 133 H 121 H 106 H Calcium AST Total Creatine Kinase CK-MB (CK-2) Troponin T NT-Pro-B Natriuret Pep Total Protein Albumin HDL Cholesterol 01/17/19 01/18/19 01/18/19 23:35 04:21 04:21 WBC RBC 3.27 L Hgb 9.6 L Hct 29.9 L MCV RDW Plt Count 79 L Lymph % (Auto) 6.0 L Lymph # 0.5 L Seg Neutrophils % 89.2 H Seg Neuts % (Manual) Lymphocytes % (Manual) Seg Neutrophils # 8.1 H Seg Neutrophils # Man Lymphocytes # (Manual) PT INR POC ABG pH POC ABG pCO2 POC ABG pO2 Sodium Potassium Chloride Carbon Dioxide BUN 28 H Creatinine 1.3 H Glucose 129 H POC Glucose 121 H Calcium AST 120 H Total Creatine Kinase CK-MB (CK-2) Troponin T NT-Pro-B Natriuret Pep Total Protein 5.1 L Albumin 3.0 L HDL Cholesterol 01/18/19 01/18/19 01/18/19 04:21 04:36 05:43 WBC RBC Hgb Hct MCV RDW Plt Count Lymph % (Auto) Lymph # Seg Neutrophils % Seg Neuts % (Manual) Lymphocytes % (Manual) Seg Neutrophils # Seg Neutrophils # Man Lymphocytes # (Manual) PT INR POC ABG pH 7.485 H POC ABG pCO2 31.0 L POC ABG pO2 126 H Sodium Potassium Chloride Carbon Dioxide BUN 28 H Creatinine 1.3 H Glucose 128 H POC Glucose 142 H Calcium AST Total Creatine Kinase CK-MB (CK-2) Troponin T NT-Pro-B Natriuret Pep Total Protein Albumin HDL Cholesterol 01/18/19 01/18/19 01/18/19 12:04 18:16 20:47 WBC RBC Hgb Hct MCV RDW Plt Count Lymph % (Auto) Lymph # Seg Neutrophils % Seg Neuts % (Manual) Lymphocytes % (Manual) Seg Neutrophils # Seg Neutrophils # Man Lymphocytes # (Manual) PT INR POC ABG pH 7.489 H POC ABG pCO2 32.8 L POC ABG pO2 Sodium Potassium Chloride Carbon Dioxide BUN Creatinine Glucose POC Glucose 113 H 119 H Calcium AST Total Creatine Kinase CK-MB (CK-2) Troponin T NT-Pro-B Natriuret Pep Total Protein Albumin HDL Cholesterol 01/19/19 01/19/19 01/19/19 00:40 05:35 11:39 WBC RBC Hgb Hct MCV RDW Plt Count Lymph % (Auto) Lymph # Seg Neutrophils % Seg Neuts % (Manual) Lymphocytes % (Manual) Seg Neutrophils # Seg Neutrophils # Man Lymphocytes # (Manual) PT INR POC ABG pH POC ABG pCO2 POC ABG pO2 Sodium Potassium Chloride Carbon Dioxide BUN Creatinine Glucose POC Glucose 137 H 157 H 155 H Calcium AST Total Creatine Kinase CK-MB (CK-2) Troponin T NT-Pro-B Natriuret Pep Total Protein Albumin HDL Cholesterol 01/19/19 01/19/19 01/19/19 18:24 21:08 23:33 WBC RBC Hgb Hct MCV RDW Plt Count Lymph % (Auto) Lymph # Seg Neutrophils % Seg Neuts % (Manual) Lymphocytes % (Manual) Seg Neutrophils # Seg Neutrophils # Man Lymphocytes # (Manual) PT INR POC ABG pH 7.508 H POC ABG pCO2 34.2 L POC ABG pO2 Sodium Potassium Chloride Carbon Dioxide BUN Creatinine Glucose POC Glucose 145 H 156 H Calcium AST Total Creatine Kinase CK-MB (CK-2) Troponin T NT-Pro-B Natriuret Pep Total Protein Albumin HDL Cholesterol 01/20/19 01/20/19 01/20/19 05:12 11:42 17:36 WBC RBC Hgb Hct MCV RDW Plt Count Lymph % (Auto) Lymph # Seg Neutrophils % Seg Neuts % (Manual) Lymphocytes % (Manual) Seg Neutrophils # Seg Neutrophils # Man Lymphocytes # (Manual) PT INR POC ABG pH POC ABG pCO2 POC ABG pO2 Sodium Potassium Chloride Carbon Dioxide BUN Creatinine Glucose POC Glucose 152 H 159 H 169 H Calcium AST Total Creatine Kinase CK-MB (CK-2) Troponin T NT-Pro-B Natriuret Pep Total Protein Albumin HDL Cholesterol 01/20/19 01/21/19 01/21/19 23:29 05:30 05:34 WBC RBC Hgb Hct MCV RDW Plt Count Lymph % (Auto) Lymph # Seg Neutrophils % Seg Neuts % (Manual) Lymphocytes % (Manual) Seg Neutrophils # Seg Neutrophils # Man Lymphocytes # (Manual) PT INR POC ABG pH 7.616 H POC ABG pCO2 POC ABG pO2 71 L Sodium Potassium Chloride Carbon Dioxide BUN Creatinine Glucose POC Glucose 139 H 138 H Calcium AST Total Creatine Kinase CK-MB (CK-2) Troponin T NT-Pro-B Natriuret Pep Total Protein Albumin HDL Cholesterol 01/21/19 01/21/19 01/22/19 12:41 18:47 00:07 WBC RBC Hgb Hct MCV RDW Plt Count Lymph % (Auto) Lymph # Seg Neutrophils % Seg Neuts % (Manual) Lymphocytes % (Manual) Seg Neutrophils # Seg Neutrophils # Man Lymphocytes # (Manual) PT INR POC ABG pH POC ABG pCO2 POC ABG pO2 Sodium Potassium Chloride Carbon Dioxide BUN Creatinine Glucose POC Glucose 154 H 174 H 163 H Calcium AST Total Creatine Kinase CK-MB (CK-2) Troponin T NT-Pro-B Natriuret Pep Total Protein Albumin HDL Cholesterol 01/22/19 01/22/19 01/22/19 04:35 05:46 12:18 WBC RBC Hgb Hct MCV RDW Plt Count Lymph % (Auto) Lymph # Seg Neutrophils % Seg Neuts % (Manual) Lymphocytes % (Manual) Seg Neutrophils # Seg Neutrophils # Man Lymphocytes # (Manual) PT INR POC ABG pH 7.522 H POC ABG pCO2 POC ABG pO2 Sodium Potassium Chloride Carbon Dioxide BUN Creatinine Glucose POC Glucose 159 H 137 H Calcium AST Total Creatine Kinase CK-MB (CK-2) Troponin T NT-Pro-B Natriuret Pep Total Protein Albumin HDL Cholesterol 01/22/19 01/22/19 01/22/19 15:00 15:00 18:13 WBC RBC 2.92 L Hgb 8.4 L Hct 25.6 L MCV RDW Plt Count Lymph % (Auto) Lymph # Seg Neutrophils % Seg Neuts % (Manual) Lymphocytes % (Manual) Seg Neutrophils # Seg Neutrophils # Man Lymphocytes # (Manual) PT INR POC ABG pH POC ABG pCO2 POC ABG pO2 Sodium Potassium Chloride 97.0 L Carbon Dioxide BUN 37 H Creatinine Glucose 162 H POC Glucose 159 H Calcium 8.2 L AST Total Creatine Kinase CK-MB (CK-2) Troponin T NT-Pro-B Natriuret Pep Total Protein Albumin HDL Cholesterol 01/22/19 01/23/19 01/23/19 22:45 00:01 05:10 WBC RBC 2.92 L Hgb 8.5 L Hct 25.4 L MCV RDW Plt Count Lymph % (Auto) 6.3 L Lymph # 0.6 L Seg Neutrophils % 86.3 H Seg Neuts % (Manual) Lymphocytes % (Manual) Seg Neutrophils # 8.9 H Seg Neutrophils # Man Lymphocytes # (Manual) PT INR POC ABG pH POC ABG pCO2 POC ABG pO2 Sodium Potassium Chloride Carbon Dioxide BUN Creatinine Glucose POC Glucose 178 H 155 H Calcium AST Total Creatine Kinase CK-MB (CK-2) Troponin T NT-Pro-B Natriuret Pep Total Protein Albumin HDL Cholesterol 01/23/19 01/23/19 01/23/19 11:31 17:49 Unknown WBC RBC Hgb Hct MCV RDW Plt Count Lymph % (Auto) Lymph # Seg Neutrophils % Seg Neuts % (Manual) Lymphocytes % (Manual) Seg Neutrophils # Seg Neutrophils # Man Lymphocytes # (Manual) PT INR POC ABG pH POC ABG pCO2 POC ABG pO2 Sodium Potassium Chloride 95.4 L Carbon Dioxide BUN 37 H Creatinine Glucose 144 H POC Glucose 161 H 142 H Calcium AST 88 H Total Creatine Kinase CK-MB (CK-2) Troponin T NT-Pro-B Natriuret Pep Total Protein 6.0 L Albumin 2.9 L HDL Cholesterol 01/24/19 01/24/19 01/24/19 00:21 05:36 12:35 WBC RBC Hgb Hct MCV RDW Plt Count Lymph % (Auto) Lymph # Seg Neutrophils % Seg Neuts % (Manual) Lymphocytes % (Manual) Seg Neutrophils # Seg Neutrophils # Man Lymphocytes # (Manual) PT INR POC ABG pH POC ABG pCO2 POC ABG pO2 Sodium Potassium Chloride Carbon Dioxide BUN Creatinine Glucose POC Glucose 163 H 147 H 263 H Calcium AST Total Creatine Kinase CK-MB (CK-2) Troponin T NT-Pro-B Natriuret Pep Total Protein Albumin HDL Cholesterol 01/24/19 01/24/19 01/24/19 17:46 23:07 Unknown WBC RBC 2.90 L Hgb 8.3 L Hct 25.0 L MCV RDW Plt Count Lymph % (Auto) Lymph # Seg Neutrophils % Seg Neuts % (Manual) Lymphocytes % (Manual) Seg Neutrophils # Seg Neutrophils # Man Lymphocytes # (Manual) PT INR POC ABG pH POC ABG pCO2 POC ABG pO2 Sodium Potassium Chloride Carbon Dioxide BUN Creatinine Glucose POC Glucose 161 H 167 H Calcium AST Total Creatine Kinase CK-MB (CK-2) Troponin T NT-Pro-B Natriuret Pep Total Protein Albumin HDL Cholesterol 01/24/19 01/25/19 01/25/19 Unknown 05:15 05:15 WBC RBC 2.90 L Hgb 8.4 L Hct 25.2 L MCV RDW Plt Count Lymph % (Auto) Lymph # Seg Neutrophils % Seg Neuts % (Manual) Lymphocytes % (Manual) Seg Neutrophils # Seg Neutrophils # Man Lymphocytes # (Manual) PT INR POC ABG pH POC ABG pCO2 POC ABG pO2 Sodium 134 L 135 L Potassium Chloride 94.4 L 94.0 L Carbon Dioxide BUN 35 H 35 H Creatinine Glucose 151 H 128 H POC Glucose Calcium AST Total Creatine Kinase CK-MB (CK-2) Troponin T NT-Pro-B Natriuret Pep Total Protein Albumin HDL Cholesterol 01/25/19 01/25/19 01/25/19 05:15 05:35 11:09 WBC RBC Hgb Hct MCV RDW Plt Count Lymph % (Auto) Lymph # Seg Neutrophils % Seg Neuts % (Manual) Lymphocytes % (Manual) Seg Neutrophils # Seg Neutrophils # Man Lymphocytes # (Manual) PT 18.8 H INR 1.47 H POC ABG pH POC ABG pCO2 POC ABG pO2 Sodium Potassium Chloride Carbon Dioxide BUN Creatinine Glucose POC Glucose 126 H 149 H Calcium AST Total Creatine Kinase CK-MB (CK-2) Troponin T NT-Pro-B Natriuret Pep Total Protein Albumin HDL Cholesterol 01/25/19 01/25/19 01/26/19 17:24 23:41 00:09 WBC RBC Hgb Hct MCV RDW Plt Count Lymph % (Auto) Lymph # Seg Neutrophils % Seg Neuts % (Manual) Lymphocytes % (Manual) Seg Neutrophils # Seg Neutrophils # Man Lymphocytes # (Manual) PT INR POC ABG pH POC ABG pCO2 POC ABG pO2 Sodium Potassium Chloride Carbon Dioxide BUN Creatinine Glucose POC Glucose 140 H 142 H 156 H Calcium AST Total Creatine Kinase CK-MB (CK-2) Troponin T NT-Pro-B Natriuret Pep Total Protein Albumin HDL Cholesterol 01/26/19 01/26/19 01/26/19 05:05 06:35 06:35 WBC RBC 2.83 L Hgb 8.1 L Hct 24.4 L MCV RDW Plt Count Lymph % (Auto) Lymph # Seg Neutrophils % Seg Neuts % (Manual) Lymphocytes % (Manual) Seg Neutrophils # Seg Neutrophils # Man Lymphocytes # (Manual) PT INR POC ABG pH POC ABG pCO2 POC ABG pO2 Sodium Potassium Chloride 96.9 L Carbon Dioxide BUN 29 H Creatinine Glucose 141 H POC Glucose 159 H Calcium 8.3 L AST Total Creatine Kinase CK-MB (CK-2) Troponin T NT-Pro-B Natriuret Pep Total Protein Albumin HDL Cholesterol 01/26/19 01/26/19 01/27/19 13:16 19:10 00:08 WBC RBC Hgb Hct MCV RDW Plt Count Lymph % (Auto) Lymph # Seg Neutrophils % Seg Neuts % (Manual) Lymphocytes % (Manual) Seg Neutrophils # Seg Neutrophils # Man Lymphocytes # (Manual) PT INR POC ABG pH POC ABG pCO2 POC ABG pO2 Sodium Potassium Chloride Carbon Dioxide BUN Creatinine Glucose POC Glucose 159 H 146 H 140 H Calcium AST Total Creatine Kinase CK-MB (CK-2) Troponin T NT-Pro-B Natriuret Pep Total Protein Albumin HDL Cholesterol 01/27/19 01/27/19 01/27/19 03:30 03:30 06:23 WBC RBC 2.85 L Hgb 8.3 L Hct 24.8 L MCV RDW Plt Count Lymph % (Auto) Lymph # Seg Neutrophils % Seg Neuts % (Manual) Lymphocytes % (Manual) Seg Neutrophils # Seg Neutrophils # Man Lymphocytes # (Manual) PT INR POC ABG pH POC ABG pCO2 POC ABG pO2 Sodium 136 L Potassium Chloride 97.1 L Carbon Dioxide BUN 26 H Creatinine Glucose 129 H POC Glucose 154 H Calcium AST Total Creatine Kinase CK-MB (CK-2) Troponin T NT-Pro-B Natriuret Pep Total Protein Albumin HDL Cholesterol 01/27/19 01/27/19 01/27/19 12:47 17:43 23:31 WBC RBC Hgb Hct MCV RDW Plt Count Lymph % (Auto) Lymph # Seg Neutrophils % Seg Neuts % (Manual) Lymphocytes % (Manual) Seg Neutrophils # Seg Neutrophils # Man Lymphocytes # (Manual) PT INR POC ABG pH POC ABG pCO2 POC ABG pO2 Sodium Potassium Chloride Carbon Dioxide BUN Creatinine Glucose POC Glucose 159 H 180 H 164 H Calcium AST Total Creatine Kinase CK-MB (CK-2) Troponin T NT-Pro-B Natriuret Pep Total Protein Albumin HDL Cholesterol 01/28/19 01/28/19 01/28/19 04:35 12:01 12:01 WBC RBC 2.67 L Hgb 7.9 L Hct 22.9 L MCV RDW Plt Count Lymph % (Auto) Lymph # Seg Neutrophils % Seg Neuts % (Manual) Lymphocytes % (Manual) Seg Neutrophils # Seg Neutrophils # Man Lymphocytes # (Manual) PT INR POC ABG pH POC ABG pCO2 POC ABG pO2 Sodium 136 L Potassium 3.5 L Chloride Carbon Dioxide BUN 18 H Creatinine Glucose 143 H POC Glucose 139 H Calcium 8.0 L AST Total Creatine Kinase CK-MB (CK-2) Troponin T NT-Pro-B Natriuret Pep Total Protein Albumin HDL Cholesterol 01/28/19 01/28/19 01/28/19 12:04 16:59 17:11 WBC RBC Hgb Hct MCV RDW Plt Count Lymph % (Auto) Lymph # Seg Neutrophils % Seg Neuts % (Manual) Lymphocytes % (Manual) Seg Neutrophils # Seg Neutrophils # Man Lymphocytes # (Manual) PT INR POC ABG pH 7.488 H POC ABG pCO2 34.1 L POC ABG pO2 Sodium Potassium Chloride Carbon Dioxide BUN Creatinine Glucose POC Glucose 143 H 163 H Calcium AST Total Creatine Kinase CK-MB (CK-2) Troponin T NT-Pro-B Natriuret Pep Total Protein Albumin HDL Cholesterol 01/29/19 01/29/19 00:10 05:47 WBC RBC Hgb Hct MCV RDW Plt Count Lymph % (Auto) Lymph # Seg Neutrophils % Seg Neuts % (Manual) Lymphocytes % (Manual) Seg Neutrophils # Seg Neutrophils # Man Lymphocytes # (Manual) PT INR POC ABG pH POC ABG pCO2 POC ABG pO2 Sodium Potassium Chloride Carbon Dioxide BUN Creatinine Glucose POC Glucose 171 H 187 H Calcium AST Total Creatine Kinase CK-MB (CK-2) Troponin T NT-Pro-B Natriuret Pep Total Protein Albumin HDL Cholesterol Allied health notes reviewed: nursing
[2019-01-29] MEDS: KEPPRA PO SCH ×2 (10:57→22:06)
[2019-01-29] MEDS: NORVASC PO SCH (10:57)
[2019-01-29] MEDS: PROTONIX IV SCH ×2 (10:57→22:05)
[2019-01-29] MEDS: BABY ASPIRIN PO SCH (10:59)
[2019-01-29] MEDS: COREG PO SCH ×2 (10:59→22:07)
[2019-01-29] MEDS: DULCOLAX PR SCH (10:59)
[2019-01-29] MEDS ORDERED: FLEET PR ONE (11:00)
[2019-01-29] MEDS ORDERED: LOVENOX SUB-Q SCH (11:00)
[2019-01-29] MEDS ORDERED: ARIXTRA SUB-Q SCH (11:00)
[2019-01-29] MEDS: SODIUM CHLORIDE FLUSH SYRINGE 10 ML IV PRN ×2 (11:03→12:43)
[2019-01-29] MEDS: KENALOG TP SCH ×2 (12:48→22:06)
[2019-01-29] MEDS: SODIUM CHLORIDE FLUSH SYRINGE 10 ML IV SCH ×2 (12:49→22:09)
[2019-01-29] MEDS: PROVIGIL PO SCH (12:55)
[2019-01-30] MEDS: HumaLOG SUB-Q SCH ×5 (00:10→18:12)
[2019-01-30] MEDS: REGLAN IV SCH ×4 (01:30→18:17)
[2019-01-30] MEDS: DUONEB *Not for PRN Use IH SCH ×4 (01:49→19:54)
[2019-01-30] MEDS: LASIX PO SCH ×2 (06:35→18:17)
[2019-01-30 07:27] LABS: Hematocrit 25.7 % (30.3-42.9); Hemoglobin 8.6 gm/dl (10.1-14.3); Mean Corpuscular HGB Conc 33 % (30-34); Mean Corpuscular Volume 87 fl (79-97); Platelet Count 370 K/mm3 (140-440); Red Blood Count 2.94 M/mm3 (3.65-5.03); Red Cell Distribution Width 14.6 % (13.2-15.2)
[2019-01-30 07:51] LABS: BUN/Creatinine Ratio 21; Blood Urea Nitrogen 15 mg/dL (7-17); Calcium 8.3 mg/dL (8.4-10.2); Hemolysis Index 9
--- NOTE | 2019-01-30 08:57 | Progress Note ---
Assessment and Plan s/p Cardiopulmonary arrest, out of hospital, PEA with ROSC Acute hypoxic-hypercapnic respiratory failure on MVS s/p Tracheostomy Acute encephalopathy, metabolic Acute metabolic acidosis Acute renal injury Seizure activity Right lower lobe infiltrate, probably aspiration Pyrexia with leukocytosis Pulmonary HTN RVSP 60 Systolic heart failure EF 35-40% Thrombocytopenia, HIT negative Ileus Bowel regimen, enema Continue with bowel rest Trachesotomy care, continue with ATP as tolerated, with rest at night VTE prophylaxis, continue enoxaparin, HIT is negative, monitor platelets IR consult placed fro PEG placement. Discussed with Dr. Hunt -Wean supplemental oxygen to keep O2 sats 88-90% -Lung protective strategies -PRN ABGs/CXR -VAP bundle addressed -Monitor renal indices closely -Avoid nephrotoxic agents, adjust all medications for CrCL -Strict intake and output monitoring -Daily SAT & SBT -Stress ulcer prophylaxis -Tube feedings -Aspiration precautions -Accuchecks with glycemic control. Target glucose of 140-180 mg/dL -Bronchodilators with pulmonary hygiene per RT -Maintenance of sleep -wake cycle -Mobility as tolerated by hemodynamics -Influenza and pneumonia vaccination per protocol ..care plan discussed at length with RN/RT at the bedside PROGNOSIS:poor CONDITION: CRITICAL CODE STATUS: FULL CODE Subjective Date of service: 01/30/19 Principal diagnosis: OOH cardiac arrest; Acute hypoxemic-hypercapnic Resp failure; PNA Interval history: Patient is seen today for: OOH cardiopulmonary arrest with ROSC; Acute hypoxemic-hypercapnic respiratory failure on MVS; acute encephalopathy; aspiration pneumonia; Seen and examined at bedside; 24-hour events reviewed; nursing and respiratory care staff consulted; no adverse overnight events reported to me; no fevers, no vomiting, no fevers, minimal output from NGT, continues to tolerate PSV trials, now tolerating ATP trials. Remains encephalopathic. Had a bowel movement this morning but persistent ileus on imaging Objective Vital Signs - 12hr 01/29/19 01/29/19 01/29/19 21:00 21:30 22:00 Temperature Pulse Rate 81 75 85 Pulse Rate [ Anterior Bilateral Throughout] Pulse Rate [ 82 From Monitor] Respiratory 13 21 22 Rate Respiratory Rate [Anterior Bilateral Throughout] Blood Pressure 114/72 145/77 O2 Sat by Pulse 96 100 99 Oximetry O2 Sat by Pulse Oximetry [ Assessment] 01/29/19 01/29/19 01/29/19 22:07 23:00 23:16 Temperature 97.4 F L Pulse Rate 85 77 Pulse Rate [ Anterior Bilateral Throughout] Pulse Rate [ From Monitor] Respiratory 12 Rate Respiratory Rate [Anterior Bilateral Throughout] Blood Pressure 145/77 105/59 O2 Sat by Pulse 100 Oximetry O2 Sat by Pulse Oximetry [ Assessment] 01/29/19 01/29/19 01/30/19 23:30 23:45 00:00 Temperature Pulse Rate 77 74 74 Pulse Rate [ Anterior Bilateral Throughout] Pulse Rate [ 82 From Monitor] Respiratory 21 13 21 Rate Respiratory Rate [Anterior Bilateral Throughout] Blood Pressure 105/59 105/59 O2 Sat by Pulse 100 100 100 Oximetry O2 Sat by Pulse Oximetry [ Assessment] 01/30/19 01/30/19 01/30/19 01:00 01:30 01:50 Temperature Pulse Rate 76 90 Pulse Rate [ 78 Anterior Bilateral Throughout] Pulse Rate [ From Monitor] Respiratory 19 Rate Respiratory 19 Rate [Anterior Bilateral Throughout] Blood Pressure 119/66 O2 Sat by Pulse 99 Oximetry O2 Sat by Pulse Oximetry [ Assessment] 01/30/19 01/30/19 01/30/19 02:00 02:15 03:00 Temperature Pulse Rate 78 90 Pulse Rate [ 79 Anterior Bilateral Throughout] Pulse Rate [ 82 From Monitor] Respiratory 12 21 Rate Respiratory 13 Rate [Anterior Bilateral Throughout] Blood Pressure 118/66 O2 Sat by Pulse 100 100 Oximetry O2 Sat by Pulse Oximetry [ Assessment] 01/30/19 01/30/19 01/30/19 03:01 03:26 03:43 Temperature 98.3 F Pulse Rate 90 Pulse Rate [ Anterior Bilateral Throughout] Pulse Rate [ From Monitor] Respiratory 24 Rate Respiratory Rate [Anterior Bilateral Throughout] Blood Pressure 75/54 O2 Sat by Pulse 98 Oximetry O2 Sat by Pulse 100 Oximetry [ Assessment] 01/30/19 01/30/19 01/30/19 04:10 07:32 07:40 Temperature Pulse Rate 80 Pulse Rate [ 85 Anterior Bilateral Throughout] Pulse Rate [ From Monitor] Respiratory Rate Respiratory 28 H Rate [Anterior Bilateral Throughout] Blood Pressure 106/62 O2 Sat by Pulse 100 100 Oximetry O2 Sat by Pulse Oximetry [ Assessment] 01/30/19 01/30/19 01/30/19 07:43 07:50 07:52 Temperature 98.3 F Pulse Rate 86 Pulse Rate [ 86 Anterior Bilateral Throughout] Pulse Rate [ From Monitor] Respiratory 29 H Rate Respiratory 31 H Rate [Anterior Bilateral Throughout] Blood Pressure 110/72 O2 Sat by Pulse 100 Oximetry O2 Sat by Pulse Oximetry [ Assessment] 01/30/19 07:56 Temperature Pulse Rate Pulse Rate [ Anterior Bilateral Throughout] Pulse Rate [ From Monitor] Respiratory Rate Respiratory Rate [Anterior Bilateral Throughout] Blood Pressure O2 Sat by Pulse Oximetry O2 Sat by Pulse 100 Oximetry [ Assessment] Constitutional: no acute distress, other (elderly, atraumatic, normocephalic, chronically looking female) Eyes: non-icteric ENT: oropharynx moist, other (s/p Size #8 trachesotomy tube to MVS) Neck: supple, no lymphadenopathy, no JVD Effort: normal Ascultation: Bilateral: diminished breath sounds, rales (bases), rhonchi (scant), other (coarse breath sound bilaterally upper lobes anteriorly) Percussion: Bilateral: not dull Cardiovascular: regular rate and rhythm, other ( S1,S2, systolic murmur, no gallops or rubs) Gastrointestinal: normoactive bowel sounds, soft, non-tender, non-distended Integumentary: normal Extremities: no cyanosis, no edema, pulses normal, no ischemia or petechiae Neurologic: unable to assess Psychiatric: other (unable to assess secondary to mental status) CBC and BMP: 01/30/19 06:45 01/30/19 07:18 ABG, PT/INR, D-dimer: ABG POC ABG pH 7.512 (7.35-7.45) H 01/29/19 16:54 POC ABG pCO2 32.7 (35-45) L 01/29/19 16:54 POC ABG pO2 108 (80-105) H 01/29/19 16:54 POC ABG HCO3 26.2 (22-26 mml/L) 01/29/19 16:54 POC ABG Total CO2 27 (23-27mmol/L) 01/29/19 16:54 POC ABG O2 Sat 99 01/29/19 16:54 PT/INR, D-dimer PT 18.8 Sec. (12.2-14.9) H 01/25/19 05:15 INR 1.47 (0.87-1.13) H 01/25/19 05:15 Abnormal lab findings: Abnormal Labs 04/01/15/19 01/15/19 07:50 07:50 07:50 WBC RBC Hgb Hct MCV 99 H RDW 16.7 H Plt Count 122 L Lymph % (Auto) Lymph # Seg Neutrophils % Seg Neuts % (Manual) Lymphocytes % (Manual) Seg Neutrophils # Seg Neutrophils # Man Lymphocytes # (Manual) PT 19.7 H INR 1.56 H POC ABG pH POC ABG pCO2 POC ABG pO2 Sodium Potassium Chloride Carbon Dioxide 11 L BUN Creatinine 1.4 H Glucose 268 H POC Glucose Calcium AST 57 H Total Creatine Kinase CK-MB (CK-2) Troponin T NT-Pro-B Natriuret Pep 5346 H Total Protein Albumin 3.6 L HDL Cholesterol 01/15/19 01/15/19 01/15/19 09:56 11:53 17:52 WBC RBC Hgb Hct MCV RDW Plt Count Lymph % (Auto) Lymph # Seg Neutrophils % Seg Neuts % (Manual) Lymphocytes % (Manual) Seg Neutrophils # Seg Neutrophils # Man Lymphocytes # (Manual) PT INR POC ABG pH 7.186 L POC ABG pCO2 46.4 H POC ABG pO2 Sodium Potassium Chloride Carbon Dioxide BUN Creatinine Glucose POC Glucose Calcium AST Total Creatine Kinase 683 H 1430 H CK-MB (CK-2) 9.5 H 13.5 H Troponin T 0.036 H D NT-Pro-B Natriuret Pep Total Protein Albumin HDL Cholesterol 65 H 01/15/19 01/15/19 01/16/19 18:31 21:46 02:14 WBC RBC Hgb Hct MCV RDW Plt Count Lymph % (Auto) Lymph # Seg Neutrophils % Seg Neuts % (Manual) Lymphocytes % (Manual) Seg Neutrophils # Seg Neutrophils # Man Lymphocytes # (Manual) PT INR POC ABG pH POC ABG pCO2 31.8 L POC ABG pO2 167 H Sodium Potassium Chloride Carbon Dioxide BUN Creatinine Glucose POC Glucose 134 H 136 H Calcium AST Total Creatine Kinase CK-MB (CK-2) Troponin T NT-Pro-B Natriuret Pep Total Protein Albumin HDL Cholesterol 01/16/19 01/16/19 01/16/19 04:16 04:16 05:05 WBC 11.4 H RBC Hgb Hct MCV RDW Plt Count 105 L Lymph % (Auto) Lymph # Seg Neutrophils % Seg Neuts % (Manual) 74.0 H Lymphocytes % (Manual) 2.0 L Seg Neutrophils # Seg Neutrophils # Man 8.4 H Lymphocytes # (Manual) 0.2 L PT INR POC ABG pH 7.458 H POC ABG pCO2 31.4 L POC ABG pO2 135 H Sodium Potassium 3.3 L Chloride Carbon Dioxide 21 L D BUN 24 H Creatinine 1.5 H Glucose 141 H POC Glucose Calcium 8.1 L AST 71 H Total Creatine Kinase CK-MB (CK-2) Troponin T NT-Pro-B Natriuret Pep Total Protein 6.2 L Albumin 3.5 L HDL Cholesterol 01/16/19 01/16/19 01/16/19 05:24 13:42 21:08 WBC RBC Hgb Hct MCV RDW Plt Count Lymph % (Auto) Lymph # Seg Neutrophils % Seg Neuts % (Manual) Lymphocytes % (Manual) Seg Neutrophils # Seg Neutrophils # Man Lymphocytes # (Manual) PT INR POC ABG pH POC ABG pCO2 POC ABG pO2 Sodium Potassium Chloride Carbon Dioxide BUN Creatinine Glucose POC Glucose 137 H 129 H 122 H Calcium AST Total Creatine Kinase CK-MB (CK-2) Troponin T NT-Pro-B Natriuret Pep Total Protein Albumin HDL Cholesterol 01/17/19 01/17/19 01/17/19 02:18 04:23 05:13 WBC RBC Hgb Hct MCV RDW Plt Count Lymph % (Auto) Lymph # Seg Neutrophils % Seg Neuts % (Manual) Lymphocytes % (Manual) Seg Neutrophils # Seg Neutrophils # Man Lymphocytes # (Manual) PT INR POC ABG pH 7.479 H POC ABG pCO2 30.0 L POC ABG pO2 141 H Sodium Potassium Chloride Carbon Dioxide BUN Creatinine Glucose POC Glucose 139 H 128 H Calcium AST Total Creatine Kinase CK-MB (CK-2) Troponin T NT-Pro-B Natriuret Pep Total Protein Albumin HDL Cholesterol 01/17/19 01/17/19 01/17/19 10:22 15:59 18:45 WBC RBC Hgb Hct MCV RDW Plt Count Lymph % (Auto) Lymph # Seg Neutrophils % Seg Neuts % (Manual) Lymphocytes % (Manual) Seg Neutrophils # Seg Neutrophils # Man Lymphocytes # (Manual) PT INR POC ABG pH POC ABG pCO2 POC ABG pO2 Sodium Potassium Chloride Carbon Dioxide BUN Creatinine Glucose POC Glucose 133 H 121 H 106 H Calcium AST Total Creatine Kinase CK-MB (CK-2) Troponin T NT-Pro-B Natriuret Pep Total Protein Albumin HDL Cholesterol 01/17/19 01/18/19 01/18/19 23:35 04:21 04:21 WBC RBC 3.27 L Hgb 9.6 L Hct 29.9 L MCV RDW Plt Count 79 L Lymph % (Auto) 6.0 L Lymph # 0.5 L Seg Neutrophils % 89.2 H Seg Neuts % (Manual) Lymphocytes % (Manual) Seg Neutrophils # 8.1 H Seg Neutrophils # Man Lymphocytes # (Manual) PT INR POC ABG pH POC ABG pCO2 POC ABG pO2 Sodium Potassium Chloride Carbon Dioxide BUN 28 H Creatinine 1.3 H Glucose 129 H POC Glucose 121 H Calcium AST 120 H Total Creatine Kinase CK-MB (CK-2) Troponin T NT-Pro-B Natriuret Pep Total Protein 5.1 L Albumin 3.0 L HDL Cholesterol 01/18/19 01/18/19 01/18/19 04:21 04:36 05:43 WBC RBC Hgb Hct MCV RDW Plt Count Lymph % (Auto) Lymph # Seg Neutrophils % Seg Neuts % (Manual) Lymphocytes % (Manual) Seg Neutrophils # Seg Neutrophils # Man Lymphocytes # (Manual) PT INR POC ABG pH 7.485 H POC ABG pCO2 31.0 L POC ABG pO2 126 H Sodium Potassium Chloride Carbon Dioxide BUN 28 H Creatinine 1.3 H Glucose 128 H POC Glucose 142 H Calcium AST Total Creatine Kinase CK-MB (CK-2) Troponin T NT-Pro-B Natriuret Pep Total Protein Albumin HDL Cholesterol 01/18/19 01/18/19 01/18/19 12:04 18:16 20:47 WBC RBC Hgb Hct MCV RDW Plt Count Lymph % (Auto) Lymph # Seg Neutrophils % Seg Neuts % (Manual) Lymphocytes % (Manual) Seg Neutrophils # Seg Neutrophils # Man Lymphocytes # (Manual) PT INR POC ABG pH 7.489 H POC ABG pCO2 32.8 L POC ABG pO2 Sodium Potassium Chloride Carbon Dioxide BUN Creatinine Glucose POC Glucose 113 H 119 H Calcium AST Total Creatine Kinase CK-MB (CK-2) Troponin T NT-Pro-B Natriuret Pep Total Protein Albumin HDL Cholesterol 01/19/19 01/19/19 01/19/19 00:40 05:35 11:39 WBC RBC Hgb Hct MCV RDW Plt Count Lymph % (Auto) Lymph # Seg Neutrophils % Seg Neuts % (Manual) Lymphocytes % (Manual) Seg Neutrophils # Seg Neutrophils # Man Lymphocytes # (Manual) PT INR POC ABG pH POC ABG pCO2 POC ABG pO2 Sodium Potassium Chloride Carbon Dioxide BUN Creatinine Glucose POC Glucose 137 H 157 H 155 H Calcium AST Total Creatine Kinase CK-MB (CK-2) Troponin T NT-Pro-B Natriuret Pep Total Protein Albumin HDL Cholesterol 01/19/19 01/19/19 01/19/19 18:24 21:08 23:33 WBC RBC Hgb Hct MCV RDW Plt Count Lymph % (Auto) Lymph # Seg Neutrophils % Seg Neuts % (Manual) Lymphocytes % (Manual) Seg Neutrophils # Seg Neutrophils # Man Lymphocytes # (Manual) PT INR POC ABG pH 7.508 H POC ABG pCO2 34.2 L POC ABG pO2 Sodium Potassium Chloride Carbon Dioxide BUN Creatinine Glucose POC Glucose 145 H 156 H Calcium AST Total Creatine Kinase CK-MB (CK-2) Troponin T NT-Pro-B Natriuret Pep Total Protein Albumin HDL Cholesterol 01/20/19 01/20/19 01/20/19 05:12 11:42 17:36 WBC RBC Hgb Hct MCV RDW Plt Count Lymph % (Auto) Lymph # Seg Neutrophils % Seg Neuts % (Manual) Lymphocytes % (Manual) Seg Neutrophils # Seg Neutrophils # Man Lymphocytes # (Manual) PT INR POC ABG pH POC ABG pCO2 POC ABG pO2 Sodium Potassium Chloride Carbon Dioxide BUN Creatinine Glucose POC Glucose 152 H 159 H 169 H Calcium AST Total Creatine Kinase CK-MB (CK-2) Troponin T NT-Pro-B Natriuret Pep Total Protein Albumin HDL Cholesterol 01/20/19 01/21/19 01/21/19 23:29 05:30 05:34 WBC RBC Hgb Hct MCV RDW Plt Count Lymph % (Auto) Lymph # Seg Neutrophils % Seg Neuts % (Manual) Lymphocytes % (Manual) Seg Neutrophils # Seg Neutrophils # Man Lymphocytes # (Manual) PT INR POC ABG pH 7.616 H POC ABG pCO2 POC ABG pO2 71 L Sodium Potassium Chloride Carbon Dioxide BUN Creatinine Glucose POC Glucose 139 H 138 H Calcium AST Total Creatine Kinase CK-MB (CK-2) Troponin T NT-Pro-B Natriuret Pep Total Protein Albumin HDL Cholesterol 01/21/19 01/21/19 01/22/19 12:41 18:47 00:07 WBC RBC Hgb Hct MCV RDW Plt Count Lymph % (Auto) Lymph # Seg Neutrophils % Seg Neuts % (Manual) Lymphocytes % (Manual) Seg Neutrophils # Seg Neutrophils # Man Lymphocytes # (Manual) PT INR POC ABG pH POC ABG pCO2 POC ABG pO2 Sodium Potassium Chloride Carbon Dioxide BUN Creatinine Glucose POC Glucose 154 H 174 H 163 H Calcium AST Total Creatine Kinase CK-MB (CK-2) Troponin T NT-Pro-B Natriuret Pep Total Protein Albumin HDL Cholesterol 01/22/19 01/22/19 01/22/19 04:35 05:46 12:18 WBC RBC Hgb Hct MCV RDW Plt Count Lymph % (Auto) Lymph # Seg Neutrophils % Seg Neuts % (Manual) Lymphocytes % (Manual) Seg Neutrophils # Seg Neutrophils # Man Lymphocytes # (Manual) PT INR POC ABG pH 7.522 H POC ABG pCO2 POC ABG pO2 Sodium Potassium Chloride Carbon Dioxide BUN Creatinine Glucose POC Glucose 159 H 137 H Calcium AST Total Creatine Kinase CK-MB (CK-2) Troponin T NT-Pro-B Natriuret Pep Total Protein Albumin HDL Cholesterol 01/22/19 01/22/19 01/22/19 15:00 15:00 18:13 WBC RBC 2.92 L Hgb 8.4 L Hct 25.6 L MCV RDW Plt Count Lymph % (Auto) Lymph # Seg Neutrophils % Seg Neuts % (Manual) Lymphocytes % (Manual) Seg Neutrophils # Seg Neutrophils # Man Lymphocytes # (Manual) PT INR POC ABG pH POC ABG pCO2 POC ABG pO2 Sodium Potassium Chloride 97.0 L Carbon Dioxide BUN 37 H Creatinine Glucose 162 H POC Glucose 159 H Calcium 8.2 L AST Total Creatine Kinase CK-MB (CK-2) Troponin T NT-Pro-B Natriuret Pep Total Protein Albumin HDL Cholesterol 01/22/19 01/23/19 01/23/19 22:45 00:01 05:10 WBC RBC 2.92 L Hgb 8.5 L Hct 25.4 L MCV RDW Plt Count Lymph % (Auto) 6.3 L Lymph # 0.6 L Seg Neutrophils % 86.3 H Seg Neuts % (Manual) Lymphocytes % (Manual) Seg Neutrophils # 8.9 H Seg Neutrophils # Man Lymphocytes # (Manual) PT INR POC ABG pH POC ABG pCO2 POC ABG pO2 Sodium Potassium Chloride Carbon Dioxide BUN Creatinine Glucose POC Glucose 178 H 155 H Calcium AST Total Creatine Kinase CK-MB (CK-2) Troponin T NT-Pro-B Natriuret Pep Total Protein Albumin HDL Cholesterol 01/23/19 01/23/19 01/23/19 11:31 17:49 Unknown WBC RBC Hgb Hct MCV RDW Plt Count Lymph % (Auto) Lymph # Seg Neutrophils % Seg Neuts % (Manual) Lymphocytes % (Manual) Seg Neutrophils # Seg Neutrophils # Man Lymphocytes # (Manual) PT INR POC ABG pH POC ABG pCO2 POC ABG pO2 Sodium Potassium Chloride 95.4 L Carbon Dioxide BUN 37 H Creatinine Glucose 144 H POC Glucose 161 H 142 H Calcium AST 88 H Total Creatine Kinase CK-MB (CK-2) Troponin T NT-Pro-B Natriuret Pep Total Protein 6.0 L Albumin 2.9 L HDL Cholesterol 01/24/19 01/24/19 01/24/19 00:21 05:36 12:35 WBC RBC Hgb Hct MCV RDW Plt Count Lymph % (Auto) Lymph # Seg Neutrophils % Seg Neuts % (Manual) Lymphocytes % (Manual) Seg Neutrophils # Seg Neutrophils # Man Lymphocytes # (Manual) PT INR POC ABG pH POC ABG pCO2 POC ABG pO2 Sodium Potassium Chloride Carbon Dioxide BUN Creatinine Glucose POC Glucose 163 H 147 H 263 H Calcium AST Total Creatine Kinase CK-MB (CK-2) Troponin T NT-Pro-B Natriuret Pep Total Protein Albumin HDL Cholesterol 01/24/19 01/24/19 01/24/19 17:46 23:07 Unknown WBC RBC 2.90 L Hgb 8.3 L Hct 25.0 L MCV RDW Plt Count Lymph % (Auto) Lymph # Seg Neutrophils % Seg Neuts % (Manual) Lymphocytes % (Manual) Seg Neutrophils # Seg Neutrophils # Man Lymphocytes # (Manual) PT INR POC ABG pH POC ABG pCO2 POC ABG pO2 Sodium Potassium Chloride Carbon Dioxide BUN Creatinine Glucose POC Glucose 161 H 167 H Calcium AST Total Creatine Kinase CK-MB (CK-2) Troponin T NT-Pro-B Natriuret Pep Total Protein Albumin HDL Cholesterol 01/24/19 01/25/19 01/25/19 Unknown 05:15 05:15 WBC RBC 2.90 L Hgb 8.4 L Hct 25.2 L MCV RDW Plt Count Lymph % (Auto) Lymph # Seg Neutrophils % Seg Neuts % (Manual) Lymphocytes % (Manual) Seg Neutrophils # Seg Neutrophils # Man Lymphocytes # (Manual) PT INR POC ABG pH POC ABG pCO2 POC ABG pO2 Sodium 134 L 135 L Potassium Chloride 94.4 L 94.0 L Carbon Dioxide BUN 35 H 35 H Creatinine Glucose 151 H 128 H POC Glucose Calcium AST Total Creatine Kinase CK-MB (CK-2) Troponin T NT-Pro-B Natriuret Pep Total Protein Albumin HDL Cholesterol 01/25/19 01/25/19 01/25/19 05:15 05:35 11:09 WBC RBC Hgb Hct MCV RDW Plt Count Lymph % (Auto) Lymph # Seg Neutrophils % Seg Neuts % (Manual) Lymphocytes % (Manual) Seg Neutrophils # Seg Neutrophils # Man Lymphocytes # (Manual) PT 18.8 H INR 1.47 H POC ABG pH POC ABG pCO2 POC ABG pO2 Sodium Potassium Chloride Carbon Dioxide BUN Creatinine Glucose POC Glucose 126 H 149 H Calcium AST Total Creatine Kinase CK-MB (CK-2) Troponin T NT-Pro-B Natriuret Pep Total Protein Albumin HDL Cholesterol 01/25/19 01/25/19 01/26/19 17:24 23:41 00:09 WBC RBC Hgb Hct MCV RDW Plt Count Lymph % (Auto) Lymph # Seg Neutrophils % Seg Neuts % (Manual) Lymphocytes % (Manual) Seg Neutrophils # Seg Neutrophils # Man Lymphocytes # (Manual) PT INR POC ABG pH POC ABG pCO2 POC ABG pO2 Sodium Potassium Chloride Carbon Dioxide BUN Creatinine Glucose POC Glucose 140 H 142 H 156 H Calcium AST Total Creatine Kinase CK-MB (CK-2) Troponin T NT-Pro-B Natriuret Pep Total Protein Albumin HDL Cholesterol 01/26/19 01/26/19 01/26/19 05:05 06:35 06:35 WBC RBC 2.83 L Hgb 8.1 L Hct 24.4 L MCV RDW Plt Count Lymph % (Auto) Lymph # Seg Neutrophils % Seg Neuts % (Manual) Lymphocytes % (Manual) Seg Neutrophils # Seg Neutrophils # Man Lymphocytes # (Manual) PT INR POC ABG pH POC ABG pCO2 POC ABG pO2 Sodium Potassium Chloride 96.9 L Carbon Dioxide BUN 29 H Creatinine Glucose 141 H POC Glucose 159 H Calcium 8.3 L AST Total Creatine Kinase CK-MB (CK-2) Troponin T NT-Pro-B Natriuret Pep Total Protein Albumin HDL Cholesterol 01/26/19 01/26/19 01/27/19 13:16 19:10 00:08 WBC RBC Hgb Hct MCV RDW Plt Count Lymph % (Auto) Lymph # Seg Neutrophils % Seg Neuts % (Manual) Lymphocytes % (Manual) Seg Neutrophils # Seg Neutrophils # Man Lymphocytes # (Manual) PT INR POC ABG pH POC ABG pCO2 POC ABG pO2 Sodium Potassium Chloride Carbon Dioxide BUN Creatinine Glucose POC Glucose 159 H 146 H 140 H Calcium AST Total Creatine Kinase CK-MB (CK-2) Troponin T NT-Pro-B Natriuret Pep Total Protein Albumin HDL Cholesterol 01/27/19 01/27/19 01/27/19 03:30 03:30 06:23 WBC RBC 2.85 L Hgb 8.3 L Hct 24.8 L MCV RDW Plt Count Lymph % (Auto) Lymph # Seg Neutrophils % Seg Neuts % (Manual) Lymphocytes % (Manual) Seg Neutrophils # Seg Neutrophils # Man Lymphocytes # (Manual) PT INR POC ABG pH POC ABG pCO2 POC ABG pO2 Sodium 136 L Potassium Chloride 97.1 L Carbon Dioxide BUN 26 H Creatinine Glucose 129 H POC Glucose 154 H Calcium AST Total Creatine Kinase CK-MB (CK-2) Troponin T NT-Pro-B Natriuret Pep Total Protein Albumin HDL Cholesterol 01/27/19 01/27/19 01/27/19 12:47 17:43 23:31 WBC RBC Hgb Hct MCV RDW Plt Count Lymph % (Auto) Lymph # Seg Neutrophils % Seg Neuts % (Manual) Lymphocytes % (Manual) Seg Neutrophils # Seg Neutrophils # Man Lymphocytes # (Manual) PT INR POC ABG pH POC ABG pCO2 POC ABG pO2 Sodium Potassium Chloride Carbon Dioxide BUN Creatinine Glucose POC Glucose 159 H 180 H 164 H Calcium AST Total Creatine Kinase CK-MB (CK-2) Troponin T NT-Pro-B Natriuret Pep Total Protein Albumin HDL Cholesterol 01/28/19 01/28/19 01/28/19 04:35 12:01 12:01 WBC RBC 2.67 L Hgb 7.9 L Hct 22.9 L MCV RDW Plt Count Lymph % (Auto) Lymph # Seg Neutrophils % Seg Neuts % (Manual) Lymphocytes % (Manual) Seg Neutrophils # Seg Neutrophils # Man Lymphocytes # (Manual) PT INR POC ABG pH POC ABG pCO2 POC ABG pO2 Sodium 136 L Potassium 3.5 L Chloride Carbon Dioxide BUN 18 H Creatinine Glucose 143 H POC Glucose 139 H Calcium 8.0 L AST Total Creatine Kinase CK-MB (CK-2) Troponin T NT-Pro-B Natriuret Pep Total Protein Albumin HDL Cholesterol 01/28/19 01/28/19 01/28/19 12:04 16:59 17:11 WBC RBC Hgb Hct MCV RDW Plt Count Lymph % (Auto) Lymph # Seg Neutrophils % Seg Neuts % (Manual) Lymphocytes % (Manual) Seg Neutrophils # Seg Neutrophils # Man Lymphocytes # (Manual) PT INR POC ABG pH 7.488 H POC ABG pCO2 34.1 L POC ABG pO2 Sodium Potassium Chloride Carbon Dioxide BUN Creatinine Glucose POC Glucose 143 H 163 H Calcium AST Total Creatine Kinase CK-MB (CK-2) Troponin T NT-Pro-B Natriuret Pep Total Protein Albumin HDL Cholesterol 01/29/19 01/29/19 01/29/19 00:10 05:47 12:08 WBC RBC Hgb Hct MCV RDW Plt Count Lymph % (Auto) Lymph # Seg Neutrophils % Seg Neuts % (Manual) Lymphocytes % (Manual) Seg Neutrophils # Seg Neutrophils # Man Lymphocytes # (Manual) PT INR POC ABG pH POC ABG pCO2 POC ABG pO2 Sodium Potassium Chloride Carbon Dioxide BUN Creatinine Glucose POC Glucose 171 H 187 H 137 H Calcium AST Total Creatine Kinase CK-MB (CK-2) Troponin T NT-Pro-B Natriuret Pep Total Protein Albumin HDL Cholesterol 01/29/19 01/29/19 01/29/19 16:48 16:54 17:47 WBC RBC Hgb Hct MCV RDW Plt Count Lymph % (Auto) Lymph # Seg Neutrophils % Seg Neuts % (Manual) Lymphocytes % (Manual) Seg Neutrophils # Seg Neutrophils # Man Lymphocytes # (Manual) PT INR POC ABG pH 7.486 H 7.512 H POC ABG pCO2 32.8 L 32.7 L POC ABG pO2 108 H Sodium Potassium Chloride Carbon Dioxide BUN Creatinine Glucose POC Glucose 156 H Calcium AST Total Creatine Kinase CK-MB (CK-2) Troponin T NT-Pro-B Natriuret Pep Total Protein Albumin HDL Cholesterol 01/29/19 01/30/19 01/30/19 23:48 06:45 07:18 WBC RBC 2.94 L Hgb 8.6 L Hct 25.7 L MCV RDW Plt Count Lymph % (Auto) Lymph # Seg Neutrophils % Seg Neuts % (Manual) Lymphocytes % (Manual) Seg Neutrophils # Seg Neutrophils # Man Lymphocytes # (Manual) PT INR POC ABG pH POC ABG pCO2 POC ABG pO2 Sodium 135 L Potassium Chloride Carbon Dioxide BUN Creatinine Glucose 141 H POC Glucose 185 H Calcium 8.3 L AST Total Creatine Kinase CK-MB (CK-2) Troponin T NT-Pro-B Natriuret Pep Total Protein Albumin HDL Cholesterol Allied health notes reviewed: nursing
--- NOTE | 2019-01-30 09:23 | XRay Report ---
AP ABDOMEN: HISTORY: Ileus. No change is demonstrated since 01/28/19. OG tube terminates in the mid stomach. Mild gaseous distention of bowel loops throughout the abdomen are unchanged. There is moderate stool in the proximal colon. No obvious free air. Impression: No change.
[2019-01-30] MEDS: KEPPRA PO SCH ×2 (10:17→21:17)
[2019-01-30] MEDS: BABY ASPIRIN PO SCH (10:17)
[2019-01-30] MEDS: NORVASC PO SCH (10:17)
[2019-01-30] MEDS: DULCOLAX PR SCH (10:18)
[2019-01-30] MEDS: PREVACID SOLUTAB FEEDTUBE SCH ×2 (10:18→21:17)
[2019-01-30] MEDS: COREG PO SCH ×2 (10:18→21:17)
[2019-01-30] MEDS: LOVENOX SUB-Q SCH (10:20)
[2019-01-30] MEDS: KENALOG TP SCH ×2 (10:30→21:16)
[2019-01-30] MEDS: SODIUM CHLORIDE FLUSH SYRINGE 10 ML IV SCH ×2 (10:30→21:18)
--- NOTE | 2019-01-30 11:46 | Progress Note ---
Assessment and Plan Assessment and plan: Cardiopulmonary arrest. Patient with out of hospital PEA arrest and ROSC. Cardiology following. Acute hypoxemic hypercapnic respiratory failure. Patient previously on mechanical ventilation but has been weaned. Continue ATP trials. Continue trach care. Partial SBO versus ileus. Follow-up KUB in the morning. If ileus has resolved, we will obtain IR consult for PEG placement. Aspiration pneumonia. Continue IV antibiotics per ID. Aspiration precautions. Sepsis. Tracheal aspirate and blood cultures are negative to date. ID following. Anoxic encephalopathy. EEG 01/17/19 reported as abnormal with minimal brain activity. No epileptiform discharges. Neurology following Acute renal failure. Etiology likely secondary to acute kidney injury from sepsis. Creatinine is stable. Continue to monitor. Pulmonary hypertension. Consider CT of the chest when medically stable. Acute systolic heart failure. Patient with moderate global hypokinesis of left ventricle EF 35-40% and left ventricular systolic function moderately decreased. 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 The aggregate critical care time was [32] minutes. This time is in addition to time spent performing reported procedures but includes the following: [x] Data Review and interpretation [x] Patient assessment and monitoring of vital signs [x] Documentation [x] Medication orders and management History Interval history: Patient is 73 yo with hypertension, CAD s/p stent, COPD/emphesema, not on home Oxygen. She was Brought in by paramedics 01/15/19 after cardiorespiratory arrest at home. History obtained from daughter and granddaughter at bedside. Patient called a family member that she had more shortness of breath . Family member lives in same Apartment complex, same floor, came to her, found her on floor not breathing, started CPR, called paramedics. She was in jhon PEA, given 2 rounds Epinephrine, CPR, intubated , resuscitated, and brought to ED. Patient was seen and evaluated in ED and admitted to ICU. She was evaluated by Pulmonology/Telephone Coin Box Collector. She had seizures later same day, was started on keppra. Shwe had CARMELINA on presentation, resolved in few days. She remained comatose, acute respiratory failure vent dependent. Trach and PEG was recommended. Tracheostomy done 01/25. PEG not done yet because of abdominal distension. She has poor prognosis. may need LTAC Hospitalist Physical - Constitutional Vitals: Temp Pulse Resp BP Pulse Ox 98.3 F 78 35 H 106/56 100 01/30/19 07:50 01/30/19 11:00 01/30/19 11:00 01/30/19 11:00 01/30/19 11:00 General appearance: Present: no acute distress, other (intubated) - EENT Eyes: Present: PERRL, EOM intact ENT: hearing intact, clear oral mucosa, dentition normal - Neck Neck: Present: supple, normal ROM - Respiratory Respiratory effort: normal Respiratory: bilateral: CTA - Cardiovascular Rhythm: regular Heart Sounds: Present: S1 & S2. Absent: gallop, rub - Extremities Extremities: no ischemia, No edema, Full ROM - Abdominal General gastrointestinal: soft, non-tender, non-distended, normal bowel sounds - Integumentary Integumentary: Present: clear, warm, dry - Neurologic Neurologic: CNII-XII intact, moves all extremities Results - Labs CBC & Chem 7: 01/30/19 06:45 01/30/19 07:18 Labs: Laboratory Last Values WBC 8.2 K/mm3 (4.5-11.0) 01/30/19 06:45 RBC 2.94 M/mm3 (3.65-5.03) L 01/30/19 06:45 Hgb 8.6 gm/dl (10.1-14.3) L 01/30/19 06:45 Hct 25.7 % (30.3-42.9) L 01/30/19 06:45 MCV 87 fl (79-97) 01/30/19 06:45 MCH 29 pg (28-32) 01/30/19 06:45 MCHC 33 % (30-34) 01/30/19 06:45 RDW 14.6 % (13.2-15.2) 01/30/19 06:45 Plt Count 370 K/mm3 (140-440) 01/30/19 06:45 Lymph % (Auto) 6.3 % (13.4-35.0) L 01/23/19 00:01 [place] % (Auto) 6.6 % (0.0-7.3) 01/23/19 00:01 Eos % (Auto) 0.5 % (0.0-4.3) 01/23/19 00:01 Baso % (Auto) 0.3 % (0.0-1.8) 01/23/19 00:01 Lymph # 0.6 K/mm3 (1.2-5.4) L 01/23/19 00:01 [place] # 0.7 K/mm3 (0.0-0.8) 01/23/19 00:01 Eos # 0.1 K/mm3 (0.0-0.4) 01/23/19 00:01 Baso # 0.0 K/mm3 (0.0-0.1) 01/23/19 00:01 Add Manual Diff Complete 01/16/19 04:16 Total Counted 100 01/16/19 04:16 Seg Neutrophils % 86.3 % (40.0-70.0) H 01/23/19 00:01 Seg Neuts % (Manual) 74.0 % (40.0-70.0) H 01/16/19 04:16 22.0 % 01/16/19 04:16 2.0 % (13.4-35.0) L 01/16/19 04:16 Reactive Lymphs % (Man) 0 % 01/16/19 04:16 2.0 % (0.0-7.3) 01/16/19 04:16 0 % (0.0-4.3) 01/16/19 04:16 0 % (0.0-1.8) 01/16/19 04:16 0 % 01/16/19 04:16 0 % 01/16/19 04:16 0 % 01/16/19 04:16 0 % 01/16/19 04:16 Nucleated RBC % Not Reportable 01/16/19 04:16 Seg Neutrophils # 8.9 K/mm3 (1.8-7.7) H 01/23/19 00:01 Seg Neutrophils # Man 8.4 K/mm3 (1.8-7.7) H 01/16/19 04:16 Band Neutrophils # 2.5 K/mm3 01/16/19 04:16 0.2 K/mm3 (1.2-5.4) L 01/16/19 04:16 Abs React Lymphs (Man) 0.0 K/mm3 01/16/19 04:16 0.2 K/mm3 (0.0-0.8) 01/16/19 04:16 0.0 K/mm3 (0.0-0.4) 01/16/19 04:16 0.0 K/mm3 (0.0-0.1) 01/16/19 04:16 0.0 K/mm3 01/16/19 04:16 0.0 K/mm3 01/16/19 04:16 0.0 K/mm3 01/16/19 04:16 Blast Cells # 0.0 K/mm3 01/16/19 04:16 WBC Morphology Not Reportable 01/16/19 04:16 Hypersegmented Neuts Not Reportable 01/16/19 04:16 Hyposegmented Neuts Not Reportable 01/16/19 04:16 Hypogranular Neuts Not Reportable 01/16/19 04:16 Not Reportable 01/16/19 04:16 Not Reportable 01/16/19 04:16 Not Reportable 01/16/19 04:16 Not Reportable 01/16/19 04:16 Not Reportable 01/16/19 04:16 Not Reportable 01/16/19 04:16 Consistent w auto 01/16/19 04:16 Not Reportable 01/16/19 04:16 Plt Clumps, EDTA Not Reportable 01/16/19 04:16 Not Reportable 01/16/19 04:16 Not Reportable 01/16/19 04:16 Not Reportable 01/16/19 04:16 Plt Morphology Comment Not Reportable 01/16/19 04:16 RBC Morphology Normal 01/16/19 04:16 Dimorphic RBCs Not Reportable 01/16/19 04:16 Not Reportable 01/16/19 04:16 Not Reportable 01/16/19 04:16 Not Reportable 01/16/19 04:16 Not Reportable 01/16/19 04:16 Not Reportable 01/16/19 04:16 Not Reportable 01/16/19 04:16 Not Reportable 01/16/19 04:16 Not Reportable 01/16/19 04:16 Not Reportable 01/16/19 04:16 Not Reportable 01/16/19 04:16 Not Reportable 01/16/19 04:16 Not Reportable 01/16/19 04:16 Not Reportable 01/16/19 04:16 Not Reportable 01/16/19 04:16 Not Reportable 01/16/19 04:16 Not Reportable 01/16/19 04:16 Not Reportable 01/16/19 04:16 Not Reportable 01/16/19 04:16 Not Reportable 01/16/19 04:16 Acanthocytes (Spur) Not Reportable 01/16/19 04:16 Rouleaux Not Reportable 01/16/19 04:16 Not Reportable 01/16/19 04:16 Not Reportable 01/16/19 04:16 Not Reportable 01/16/19 04:16 Not Reportable 01/16/19 04:16 Hem Pathologist Commnt No 01/16/19 04:16 PT 18.8 Sec. (12.2-14.9) H 01/25/19 05:15 INR 1.47 (0.87-1.13) H 01/25/19 05:15 APTT 36.0 Sec. (24.2-36.6) 01/15/19 07:50 Heparin Anti-Xa, Unfract Negative (Negative) 01/19/19 Unknown POC ABG pH 7.512 (7.35-7.45) H 01/29/19 16:54 POC ABG pCO2 32.7 (35-45) L 01/29/19 16:54 POC ABG pO2 108 (80-105) H 01/29/19 16:54 POC ABG HCO3 26.2 (22-26 mml/L) 01/29/19 16:54 POC ABG Total CO2 27 (23-27mmol/L) 01/29/19 16:54 POC ABG O2 Sat 99 01/29/19 16:54 POC ABG Base Excess 3 ((-2) - (+3)mmol/L) 01/29/19 16:54 28 % 01/29/19 16:54 Sodium 135 mmol/L (137-145) L 01/30/19 07:18 Potassium 3.7 mmol/L (3.6-5.0) 01/30/19 07:18 Chloride 99.2 mmol/L (98-107) 01/30/19 07:18 Carbon Dioxide 24 mmol/L (22-30) 01/30/19 07:18 16 mmol/L 01/30/19 07:18 BUN 15 mg/dL (7-17) 01/30/19 07:18 0.7 mg/dL (0.7-1.2) 01/30/19 07:18 Estimated GFR > 60 ml/min 01/30/19 07:18 21 % 01/30/19 07:18 Glucose 141 mg/dL (65-100) H 01/30/19 07:18 POC Glucose 101 (70-105) 01/30/19 05:26 6.0 % (4-6) 01/15/19 11:53 Calcium 8.3 mg/dL (8.4-10.2) L 01/30/19 07:18 0.30 mg/dL (0.1-1.2) 01/23/19 Unknown AST 88 units/L (5-40) H 01/23/19 Unknown ALT 31 units/L (7-56) 01/23/19 Unknown 48 units/L (35-129) 01/23/19 Unknown 1430 units/L (30-135) H 01/15/19 17:52 CK-MB (CK-2) 13.5 ng/mL (0.0-4.0) H 01/15/19 17:52 CK-MB (CK-2) Rel Index 0.9 (0-4) 01/15/19 17:52 0.036 ng/mL (0.00-0.029) H D 01/15/19 17:52 NT-Pro-B Natriuret Pep 5346 pg/mL (0-900) H 01/15/19 07:50 6.0 g/dL (6.3-8.2) L 01/23/19 Unknown 2.9 g/dL (3.9-5) L 01/23/19 Unknown 0.9 % 01/23/19 Unknown Triglycerides 75 mg/dL (2-149) 01/15/19 17:52 Cholesterol 149 mg/dL (50-199) 01/15/19 17:52 84 mg/dL (50-130) 01/15/19 17:52 65 mg/dL (40-59) H 01/15/19 17:52 2.29 % 01/15/19 17:52 See scanned report 01/19/19 Unknown Yellow (Yellow) 01/21/19 16:10 Clear (Clear) 01/21/19 16:10 6.0 (5.0-7.0) 01/21/19 16:10 Ur Specific [place] 1.015 (1.003-1.030) 01/21/19 16:10 <15 mg/dl mg/dL (Negative) 01/21/19 16:10 Neg mg/dL (Negative) 01/21/19 16:10 Neg mg/dL (Negative) 01/21/19 16:10 Neg (Negative) 01/21/19 16:10 Neg (Negative) 01/21/19 16:10 Neg (Negative) 01/21/19 16:10 2.0 mg/dL (<2.0) 01/21/19 16:10 Ur Leukocyte Esterase Neg (Negative) 01/21/19 16:10 1.0 /HPF (0.0-6.0) 01/21/19 16:10 5.0 /HPF (0.0-6.0) 01/21/19 16:10 Presumptive negative 01/15/19 16:30 Presumptive negative 01/15/19 16:30 Ur Barbiturates Screen Presumptive negative 01/15/19 16:30 Ur Phencyclidine Scrn Presumptive negative 01/15/19 16:30 Ur Amphetamines Screen Presumptive negative 01/15/19 16:30 U Benzodiazepines Scrn Presumptive negative 01/15/19 16:30 Presumptive negative 01/15/19 16:30 U Marijuana (THC) Screen Presumptive negative 01/15/19 16:30 Disclamer 01/15/19 16:30 Heparin-induced Plt Ab Negative (Negative) 01/19/19 Unknown UF Heparin High Dose 3 % Release 01/19/19 Unknown JOSEFA UFH Low Dose 0.1 4 % Release 01/19/19 Unknown JOSEFA UFH Low Dose 0.5 5 % Release 01/19/19 Unknown C. difficile Tox (PCR) Negative (Negative) 01/16/19 00:00 Active Medications - Current Medications Current Medications: Generic Name Dose Route Start Last Admin Trade Name Freq PRN Reason Stop Dose Admin Acetaminophen 650 mg 01/16/19 09:37 01/20/19 00:24 Tylenol PO 650 mg Q4H PRN Administration Fever >101 Albuterol/Ipratropium 1 ampul 01/15/19 14:00 01/30/19 07:35 Duoneb *Not For Prn Use* IH 1 ampul Q6HRT DEON Administration Amlodipine Besylate 10 mg 01/24/19 12:00 01/30/19 10:17 Norvasc PO 10 mg DAILY DEON Administration Lipase/Protease/Amylase 1 each 01/15/19 14:[address] 10,500 Unit FEEDTUBE PRN PRN For Clogged Feeding Tube Aspirin 81 mg 01/16/19 10:00 01/30/19 10:17 Baby Aspirin PO 81 mg QDAY DEON Administration Atorvastatin Calcium 20 mg 01/16/19 22:00 01/29/19 22:05 Lipitor PO 20 mg QHS DEON Administration Bisacodyl 10 mg 01/28/19 19:00 01/30/19 10:18 Dulcolax PA 01/31/19 18:59 10 mg QDAY DEON Administration Carvedilol 12.5 mg 01/24/19 22:00 01/30/19 10:18 Coreg PO 12.5 mg BID DEON Administration Enoxaparin Sodium 40 mg 01/30/19 10:00 01/30/19 10:20 Lovenox SUB-Q 40 mg QDAY@1000 DEON Administration Furosemide 20 mg 01/19/19 18:00 01/30/19 06:35 Lasix PO 20 mg 0600,1800 DEON Administration Potassium Chloride/Dextrose/Sod Cl 20 meq in 1,000 mls @ 50 mls/hr 01/26/19 14:00 01/29/19 22:25 D5w/0.45% Nacl/Kcl 20 Meq IV 50 mls/hr DIRECT DEON Administration Insulin Human Lispro 0 unit 01/22/19 14:00 01/30/19 10:18 Humalog SUB-Q Not Given Q6HR [facility] Protocol Lansoprazole 30 mg 01/30/19 10:00 01/30/19 10:18 Prevacid Solutab FEEDTUBE 30 mg BID DEON Administration Levetiracetam 750 mg 01/18/19 10:00 01/30/19 10:17 Keppra PO 750 mg BID DEON Administration Metoclopramide HCl 5 mg 01/28/19 19:00 01/30/19 06:34 Reglan IV 5 mg Q6H DEON Administration Simple Syrup 15 ml 01/15/19 14:37 Simple Syrup FEEDTUBE PRN PRN Hypoglycemia Simple Syrup 30 ml 01/15/19 14:37 Simple Syrup FEEDTUBE PRN PRN Hypoglycemia Sodium Bicarbonate 325 mg 01/15/19 14:37 Sodium Bicarbonate FEEDTUBE PRN PRN For Clogged Feeding Tube Sodium Chloride 10 ml 01/15/19 22:00 01/30/19 10:30 Sodium Chloride Flush Syringe 10 Ml IV 10 ml BID DEON Administration Sodium Chloride 10 ml 01/15/19 10:34 01/29/19 12:43 Sodium Chloride Flush Syringe 10 Ml IV 10 ml PRN PRN Administration LINE FLUSH Triamcinolone Acetonide 1 applic 01/24/19 14:00 01/29/19 22:06 Kenalog TP 1 applic BID DEON Administration Nutrition/Malnutrition Assess - Dietary Evaluation Nutrition/Malnutrition Findings: Nutrition Notes Start: 01/15/19 14:28 Freq: Status: Active Protocol: Document 01/29/19 13:19 JESSICA (Rec: 01/29/19 13:27 JESSICA [email or web address]) Nutrition Notes Initial or Follow up Reassessment Current Diagnosis Heart Failure,Respiratory Failure Other Pertinent Diagnosis s/p cardiorespiratory arrest ( at home) Current Diet NPO Labs/Tests Reviewed Pertinent Medications Dulcolax, Reglan, D5 1/2NS + 20mEq KCl at 50ml/hr Height 5 ft 4 in Weight 45.8 kg [place] Body Weight (kg) 54.54 BMI 17.3 Weight change and time frame Current wt obtained from bed scale Weight Status Underweight Subjective/Other Information Pt scheduled for PEG placement today. She remains on vent support. Fleet enema ordered today. Burn Absent Trauma Absent #1 Nutrition Diagnosis Inadequate oral intake Diagnosis Progress(for reassessment Continues documentation) Is patient on ventilator? Yes Is Patient Ambulatory and/or Out of Bed No REE-([facility]-confined to bed) 1132.248 Kcal/Kg value to use for calculation 35 Approximate Energy Requirements Using 1603 kcal/Kg Calculation Used for Recommendations Kcal/kg Additional Notes Pro needs 1.2-2g/k-92g/ day Fluid needs 1ml/kcal Nutrition Intervention Nutrition Support: Restart TF once PEG placed Goal #1 Restart EN support to meet nutrient needs Goal #2 Wt maintenance and/or gain Follow-Up By: 01/30/19 Additional Comments F/U: PEG placement, TF restart
[2019-01-30] MEDS: D5W/0.45% NACL/KCL 20 MEQ 20 MEQ/1,000 ML BAG IV SCH (18:16)
[2019-01-31] MEDS: REGLAN IV SCH ×2 (00:17→06:01)
[2019-01-31] MEDS: HumaLOG SUB-Q SCH ×4 (00:17→17:49)
[2019-01-31] MEDS: DUONEB *Not for PRN Use IH SCH ×4 (01:18→19:40)
[2019-01-31] MEDS: LASIX PO SCH ×2 (05:50→17:49)
[2019-01-31] MEDS: BABY ASPIRIN PO SCH (10:00)
[2019-01-31] MEDS: COREG PO SCH ×2 (10:00→21:22)
[2019-01-31] MEDS: PREVACID SOLUTAB FEEDTUBE SCH ×2 (10:00→21:21)
[2019-01-31] MEDS: KEPPRA PO SCH ×2 (10:00→21:21)
[2019-01-31] MEDS: DULCOLAX PR SCH (10:01)
[2019-01-31] MEDS: NORVASC PO SCH (10:01)
[2019-01-31] MEDS: LOVENOX SUB-Q SCH (10:01)
[2019-01-31] MEDS: KENALOG TP SCH ×2 (10:02→21:22)
[2019-01-31] MEDS: SODIUM CHLORIDE FLUSH SYRINGE 10 ML IV SCH ×2 (10:03→21:22)
--- NOTE | 2019-01-31 10:42 | Progress Note ---
Assessment and Plan s/p Cardiopulmonary arrest, out of hospital, PEA with ROSC Acute hypoxic-hypercapnic respiratory failure on MVS Acute encephalopathy, metabolic Acute metabolic acidosis Acute renal injury Seizure activity Right lower lobe infiltrate, probably aspiration Pyrexia with leukocytosis Pulmonary HTN RVSP 60 Systolic heart failure EF 35-40% Thrombocytopenia Pyrexia PEG placement to facilitate discharge planning Continue with weaning trials Resume trickle/trophic feeding Discussed in ICU-IDT rounds -Wean supplemental oxygen to keep O2 sats 88-90% -Lung protective strategies -PRN ABGs/CXR -VAP bundle addressed -Avoid nephrotoxic agents, adjust all medications for CrCL -Daily SAT, tolerating ATP trials -Stress ulcer prophylaxis -Aspiration precautions -Accuchecks with glycemic control. Target glucose of 140-180 mg/dL -Bronchodilators with pulmonary hygiene per RT -Maintenance of sleep -wake cycle -Mobility as tolerated by hemodynamics -Influenza and pneumonia vaccination per protocol ..care plan discussed at length with RN/RT at the bedside PROGNOSIS:poor CONDITION: FAIR CODE STATUS: FULL CODE Subjective Date of service: 01/31/19 Principal diagnosis: OOH cardiac arrest; Acute hypoxemic-hypercapnic Resp failur e; PNA Interval history: Patient is seen today for: OOH cardiopulmonary arrest with ROSC; Acute hypoxemic-hypercapnic respiratory failure on MVS; acute encephalopathy; aspiration pneumonia; s/p tracheostomy; ileus Seen and examined at bedside; 24-hour events reviewed; nursing and respiratory care staff consulted; no adverse overnight events reported to me; no fevers, no vomiting, no fevers, tolerating ATP during the day, rest at night. Persistent encephalopathy Objective Vital Signs - 12hr 01/30/19 01/30/19 01/30/19 23:00 23:21 23:51 Temperature 97.8 F Pulse Rate 78 80 Pulse Rate [ Anterior Bilateral Throughout] Pulse Rate [ From Monitor] Pulse Rate [ Throughout] Respiratory 17 16 Rate Respiratory Rate [Anterior Bilateral Throughout] Respiratory Rate [ Throughout] Blood Pressure 100/60 118/66 O2 Sat by Pulse 100 99 Oximetry O2 Sat by Pulse Oximetry [ Assessment] 01/31/19 01/31/19 01/31/19 00:00 01:00 01:18 Temperature Pulse Rate 78 74 Pulse Rate [ 74 Anterior Bilateral Throughout] Pulse Rate [ 77 From Monitor] Pulse Rate [ Throughout] Respiratory 18 17 Rate Respiratory 17 Rate [Anterior Bilateral Throughout] Respiratory Rate [ Throughout] Blood Pressure 103/58 89/55 O2 Sat by Pulse 100 100 Oximetry O2 Sat by Pulse Oximetry [ Assessment] 01/31/19 01/31/19 01/31/19 01:19 01:27 02:00 Temperature Pulse Rate 81 81 Pulse Rate [ 78 Anterior Bilateral Throughout] Pulse Rate [ From Monitor] Pulse Rate [ Throughout] Respiratory 20 Rate Respiratory 14 Rate [Anterior Bilateral Throughout] Respiratory Rate [ Throughout] Blood Pressure 96/59 99/57 O2 Sat by Pulse 100 100 Oximetry O2 Sat by Pulse Oximetry [ Assessment] 01/31/19 01/31/19 01/31/19 03:00 03:09 04:00 Temperature 98.1 F Pulse Rate 85 86 89 Pulse Rate [ Anterior Bilateral Throughout] Pulse Rate [ 84 From Monitor] Pulse Rate [ Throughout] Respiratory 27 H 16 Rate Respiratory Rate [Anterior Bilateral Throughout] Respiratory Rate [ Throughout] Blood Pressure 105/63 105/63 114/75 O2 Sat by Pulse 100 100 88 Oximetry O2 Sat by Pulse Oximetry [ Assessment] 01/31/19 01/31/19 01/31/19 05:00 06:00 07:00 Temperature Pulse Rate 84 82 84 Pulse Rate [ Anterior Bilateral Throughout] Pulse Rate [ From Monitor] Pulse Rate [ Throughout] Respiratory 18 14 18 Rate Respiratory Rate [Anterior Bilateral Throughout] Respiratory Rate [ Throughout] Blood Pressure 112/67 101/59 105/57 O2 Sat by Pulse 90 Oximetry O2 Sat by Pulse Oximetry [ Assessment] 01/31/19 01/31/19 01/31/19 07:45 07:49 08:00 Temperature 97.5 F L Pulse Rate 82 Pulse Rate [ 81 Anterior Bilateral Throughout] Pulse Rate [ From Monitor] Pulse Rate [ 86 Throughout] Respiratory 27 H Rate Respiratory 24 Rate [Anterior Bilateral Throughout] Respiratory 21 Rate [ Throughout] Blood Pressure 115/64 O2 Sat by Pulse 98 Oximetry O2 Sat by Pulse Oximetry [ Assessment] 01/31/19 01/31/19 01/31/19 08:35 09:01 10:00 Temperature Pulse Rate 84 86 Pulse Rate [ Anterior Bilateral Throughout] Pulse Rate [ From Monitor] Pulse Rate [ Throughout] Respiratory 17 Rate Respiratory Rate [Anterior Bilateral Throughout] Respiratory Rate [ Throughout] Blood Pressure 114/64 121/68 O2 Sat by Pulse 100 Oximetry O2 Sat by Pulse 98 Oximetry [ Assessment] 01/31/19 10:01 Temperature Pulse Rate 85 Pulse Rate [ Anterior Bilateral Throughout] Pulse Rate [ From Monitor] Pulse Rate [ Throughout] Respiratory Rate Respiratory Rate [Anterior Bilateral Throughout] Respiratory Rate [ Throughout] Blood Pressure 121/68 O2 Sat by Pulse Oximetry O2 Sat by Pulse Oximetry [ Assessment] Constitutional: no acute distress, other (elderly, atraumatic, normocephalic, chronically looking female) Eyes: non-icteric ENT: oropharynx moist, other (s/p Size #8 trachesotomy tube to ATP) Neck: supple, no lymphadenopathy, no JVD Effort: normal Ascultation: Bilateral: diminished breath sounds, rales (bases), rhonchi (scant), other (coarse breath sound bilaterally upper lobes anteriorly) Percussion: Bilateral: not dull Cardiovascular: regular rate and rhythm, other ( S1,S2, systolic murmur, no gallops or rubs) Gastrointestinal: normoactive bowel sounds, soft, non-tender, non-distended Integumentary: normal Extremities: no cyanosis, no edema, pulses normal, no ischemia or petechiae Neurologic: unable to assess Psychiatric: other (unable to assess secondary to mental status) CBC and BMP: 01/30/19 06:45 01/30/19 07:18 ABG, PT/INR, D-dimer: ABG POC ABG pH 7.508 (7.35-7.45) H 01/30/19 16:47 POC ABG pCO2 31.5 (35-45) L 01/30/19 16:47 POC ABG pO2 135 (80-105) H 01/30/19 16:47 POC ABG HCO3 25.0 (22-26 mml/L) 01/30/19 16:47 POC ABG Total CO2 26 (23-27mmol/L) 01/30/19 16:47 POC ABG O2 Sat 99 01/30/19 16:47 PT/INR, D-dimer PT 18.8 Sec. (12.2-14.9) H 01/25/19 05:15 INR 1.47 (0.87-1.13) H 01/25/19 05:15 Abnormal lab findings: Abnormal Labs 01/15/19 01/15/19 01/15/19 07:50 07:50 07:50 WBC RBC Hgb Hct MCV 99 H RDW 16.7 H Plt Count 122 L Lymph % (Auto) Lymph # Seg Neutrophils % Seg Neuts % (Manual) Lymphocytes % (Manual) Seg Neutrophils # Seg Neutrophils # Man Lymphocytes # (Manual) PT 19.7 H INR 1.56 H POC ABG pH POC ABG pCO2 POC ABG pO2 Sodium Potassium Chloride Carbon Dioxide 11 L BUN Creatinine 1.4 H Glucose 268 H POC Glucose Calcium AST 57 H Total Creatine Kinase CK-MB (CK-2) Troponin T NT-Pro-B Natriuret Pep 5346 H Total Protein Albumin 3.6 L HDL Cholesterol 01/15/19 01/15/19 01/15/19 09:56 11:53 17:52 WBC RBC Hgb Hct MCV RDW Plt Count Lymph % (Auto) Lymph # Seg Neutrophils % Seg Neuts % (Manual) Lymphocytes % (Manual) Seg Neutrophils # Seg Neutrophils # Man Lymphocytes # (Manual) PT INR POC ABG pH 7.186 L POC ABG pCO2 46.4 H POC ABG pO2 Sodium Potassium Chloride Carbon Dioxide BUN Creatinine Glucose POC Glucose Calcium AST Total Creatine Kinase 683 H 1430 H CK-MB (CK-2) 9.5 H 13.5 H Troponin T 0.036 H D NT-Pro-B Natriuret Pep Total Protein Albumin HDL Cholesterol 65 H 01/15/19 01/15/19 01/16/19 18:31 21:46 02:14 WBC RBC Hgb Hct MCV RDW Plt Count Lymph % (Auto) Lymph # Seg Neutrophils % Seg Neuts % (Manual) Lymphocytes % (Manual) Seg Neutrophils # Seg Neutrophils # Man Lymphocytes # (Manual) PT INR POC ABG pH POC ABG pCO2 31.8 L POC ABG pO2 167 H Sodium Potassium Chloride Carbon Dioxide BUN Creatinine Glucose POC Glucose 134 H 136 H Calcium AST Total Creatine Kinase CK-MB (CK-2) Troponin T NT-Pro-B Natriuret Pep Total Protein Albumin HDL Cholesterol 01/16/19 01/16/19 01/16/19 04:16 04:16 05:05 WBC 11.4 H RBC Hgb Hct MCV RDW Plt Count 105 L Lymph % (Auto) Lymph # Seg Neutrophils % Seg Neuts % (Manual) 74.0 H Lymphocytes % (Manual) 2.0 L Seg Neutrophils # Seg Neutrophils # Man 8.4 H Lymphocytes # (Manual) 0.2 L PT INR POC ABG pH 7.458 H POC ABG pCO2 31.4 L POC ABG pO2 135 H Sodium Potassium 3.3 L Chloride Carbon Dioxide 21 L D BUN 24 H Creatinine 1.5 H Glucose 141 H POC Glucose Calcium 8.1 L AST 71 H Total Creatine Kinase CK-MB (CK-2) Troponin T NT-Pro-B Natriuret Pep Total Protein 6.2 L Albumin 3.5 L HDL Cholesterol 01/16/19 01/16/19 01/16/19 05:24 13:42 21:08 WBC RBC Hgb Hct MCV RDW Plt Count Lymph % (Auto) Lymph # Seg Neutrophils % Seg Neuts % (Manual) Lymphocytes % (Manual) Seg Neutrophils # Seg Neutrophils # Man Lymphocytes # (Manual) PT INR POC ABG pH POC ABG pCO2 POC ABG pO2 Sodium Potassium Chloride Carbon Dioxide BUN Creatinine Glucose POC Glucose 137 H 129 H 122 H Calcium AST Total Creatine Kinase CK-MB (CK-2) Troponin T NT-Pro-B Natriuret Pep Total Protein Albumin HDL Cholesterol 01/17/19 01/17/19 01/17/19 02:18 04:23 05:13 WBC RBC Hgb Hct MCV RDW Plt Count Lymph % (Auto) Lymph # Seg Neutrophils % Seg Neuts % (Manual) Lymphocytes % (Manual) Seg Neutrophils # Seg Neutrophils # Man Lymphocytes # (Manual) PT INR POC ABG pH 7.479 H POC ABG pCO2 30.0 L POC ABG pO2 141 H Sodium Potassium Chloride Carbon Dioxide BUN Creatinine Glucose POC Glucose 139 H 128 H Calcium AST Total Creatine Kinase CK-MB (CK-2) Troponin T NT-Pro-B Natriuret Pep Total Protein Albumin HDL Cholesterol 01/17/19 01/17/19 01/17/19 10:22 15:59 18:45 WBC RBC Hgb Hct MCV RDW Plt Count Lymph % (Auto) Lymph # Seg Neutrophils % Seg Neuts % (Manual) Lymphocytes % (Manual) Seg Neutrophils # Seg Neutrophils # Man Lymphocytes # (Manual) PT INR POC ABG pH POC ABG pCO2 POC ABG pO2 Sodium Potassium Chloride Carbon Dioxide BUN Creatinine Glucose POC Glucose 133 H 121 H 106 H Calcium AST Total Creatine Kinase CK-MB (CK-2) Troponin T NT-Pro-B Natriuret Pep Total Protein Albumin HDL Cholesterol 01/17/19 01/18/19 01/18/19 23:35 04:21 04:21 WBC RBC 3.27 L Hgb 9.6 L Hct 29.9 L MCV RDW Plt Count 79 L Lymph % (Auto) 6.0 L Lymph # 0.5 L Seg Neutrophils % 89.2 H Seg Neuts % (Manual) Lymphocytes % (Manual) Seg Neutrophils # 8.1 H Seg Neutrophils # Man Lymphocytes # (Manual) PT INR POC ABG pH POC ABG pCO2 POC ABG pO2 Sodium Potassium Chloride Carbon Dioxide BUN 28 H Creatinine 1.3 H Glucose 129 H POC Glucose 121 H Calcium AST 120 H Total Creatine Kinase CK-MB (CK-2) Troponin T NT-Pro-B Natriuret Pep Total Protein 5.1 L Albumin 3.0 L HDL Cholesterol 01/18/19 01/18/19 01/18/19 04:21 04:36 05:43 WBC RBC Hgb Hct MCV RDW Plt Count Lymph % (Auto) Lymph # Seg Neutrophils % Seg Neuts % (Manual) Lymphocytes % (Manual) Seg Neutrophils # Seg Neutrophils # Man Lymphocytes # (Manual) PT INR POC ABG pH 7.485 H POC ABG pCO2 31.0 L POC ABG pO2 126 H Sodium Potassium Chloride Carbon Dioxide BUN 28 H Creatinine 1.3 H Glucose 128 H POC Glucose 142 H Calcium AST Total Creatine Kinase CK-MB (CK-2) Troponin T NT-Pro-B Natriuret Pep Total Protein Albumin HDL Cholesterol 01/18/19 01/18/19 01/18/19 12:04 18:16 20:47 WBC RBC Hgb Hct MCV RDW Plt Count Lymph % (Auto) Lymph # Seg Neutrophils % Seg Neuts % (Manual) Lymphocytes % (Manual) Seg Neutrophils # Seg Neutrophils # Man Lymphocytes # (Manual) PT INR POC ABG pH 7.489 H POC ABG pCO2 32.8 L POC ABG pO2 Sodium Potassium Chloride Carbon Dioxide BUN Creatinine Glucose POC Glucose 113 H 119 H Calcium AST Total Creatine Kinase CK-MB (CK-2) Troponin T NT-Pro-B Natriuret Pep Total Protein Albumin HDL Cholesterol 01/19/19 01/19/19 01/19/19 00:40 05:35 11:39 WBC RBC Hgb Hct MCV RDW Plt Count Lymph % (Auto) Lymph # Seg Neutrophils % Seg Neuts % (Manual) Lymphocytes % (Manual) Seg Neutrophils # Seg Neutrophils # Man Lymphocytes # (Manual) PT INR POC ABG pH POC ABG pCO2 POC ABG pO2 Sodium Potassium Chloride Carbon Dioxide BUN Creatinine Glucose POC Glucose 137 H 157 H 155 H Calcium AST Total Creatine Kinase CK-MB (CK-2) Troponin T NT-Pro-B Natriuret Pep Total Protein Albumin HDL Cholesterol 01/19/19 01/19/19 01/19/19 18:24 21:08 23:33 WBC RBC Hgb Hct MCV RDW Plt Count Lymph % (Auto) Lymph # Seg Neutrophils % Seg Neuts % (Manual) Lymphocytes % (Manual) Seg Neutrophils # Seg Neutrophils # Man Lymphocytes # (Manual) PT INR POC ABG pH 7.508 H POC ABG pCO2 34.2 L POC ABG pO2 Sodium Potassium Chloride Carbon Dioxide BUN Creatinine Glucose POC Glucose 145 H 156 H Calcium AST Total Creatine Kinase CK-MB (CK-2) Troponin T NT-Pro-B Natriuret Pep Total Protein Albumin HDL Cholesterol 01/20/19 01/20/19 01/20/19 05:12 11:42 17:36 WBC RBC Hgb Hct MCV RDW Plt Count Lymph % (Auto) Lymph # Seg Neutrophils % Seg Neuts % (Manual) Lymphocytes % (Manual) Seg Neutrophils # Seg Neutrophils # Man Lymphocytes # (Manual) PT INR POC ABG pH POC ABG pCO2 POC ABG pO2 Sodium Potassium Chloride Carbon Dioxide BUN Creatinine Glucose POC Glucose 152 H 159 H 169 H Calcium AST Total Creatine Kinase CK-MB (CK-2) Troponin T NT-Pro-B Natriuret Pep Total Protein Albumin HDL Cholesterol 01/20/19 01/21/19 01/21/19 23:29 05:30 05:34 WBC RBC Hgb Hct MCV RDW Plt Count Lymph % (Auto) Lymph # Seg Neutrophils % Seg Neuts % (Manual) Lymphocytes % (Manual) Seg Neutrophils # Seg Neutrophils # Man Lymphocytes # (Manual) PT INR POC ABG pH 7.616 H POC ABG pCO2 POC ABG pO2 71 L Sodium Potassium Chloride Carbon Dioxide BUN Creatinine Glucose POC Glucose 139 H 138 H Calcium AST Total Creatine Kinase CK-MB (CK-2) Troponin T NT-Pro-B Natriuret Pep Total Protein Albumin HDL Cholesterol 01/21/19 01/21/19 01/22/19 12:41 18:47 00:07 WBC RBC Hgb Hct MCV RDW Plt Count Lymph % (Auto) Lymph # Seg Neutrophils % Seg Neuts % (Manual) Lymphocytes % (Manual) Seg Neutrophils # Seg Neutrophils # Man Lymphocytes # (Manual) PT INR POC ABG pH POC ABG pCO2 POC ABG pO2 Sodium Potassium Chloride Carbon Dioxide BUN Creatinine Glucose POC Glucose 154 H 174 H 163 H Calcium AST Total Creatine Kinase CK-MB (CK-2) Troponin T NT-Pro-B Natriuret Pep Total Protein Albumin HDL Cholesterol 01/22/19 01/22/19 01/22/19 04:35 05:46 12:18 WBC RBC Hgb Hct MCV RDW Plt Count Lymph % (Auto) Lymph # Seg Neutrophils % Seg Neuts % (Manual) Lymphocytes % (Manual) Seg Neutrophils # Seg Neutrophils # Man Lymphocytes # (Manual) PT INR POC ABG pH 7.522 H POC ABG pCO2 POC ABG pO2 Sodium Potassium Chloride Carbon Dioxide BUN Creatinine Glucose POC Glucose 159 H 137 H Calcium AST Total Creatine Kinase CK-MB (CK-2) Troponin T NT-Pro-B Natriuret Pep Total Protein Albumin HDL Cholesterol 01/22/19 01/22/19 01/22/19 15:00 15:00 18:13 WBC RBC 2.92 L Hgb 8.4 L Hct 25.6 L MCV RDW Plt Count Lymph % (Auto) Lymph # Seg Neutrophils % Seg Neuts % (Manual) Lymphocytes % (Manual) Seg Neutrophils # Seg Neutrophils # Man Lymphocytes # (Manual) PT INR POC ABG pH POC ABG pCO2 POC ABG pO2 Sodium Potassium Chloride 97.0 L Carbon Dioxide BUN 37 H Creatinine Glucose 162 H POC Glucose 159 H Calcium 8.2 L AST Total Creatine Kinase CK-MB (CK-2) Troponin T NT-Pro-B Natriuret Pep Total Protein Albumin HDL Cholesterol 01/22/19 01/23/19 01/23/19 22:45 00:01 05:10 WBC RBC 2.92 L Hgb 8.5 L Hct 25.4 L MCV RDW Plt Count Lymph % (Auto) 6.3 L Lymph # 0.6 L Seg Neutrophils % 86.3 H Seg Neuts % (Manual) Lymphocytes % (Manual) Seg Neutrophils # 8.9 H Seg Neutrophils # Man Lymphocytes # (Manual) PT INR POC ABG pH POC ABG pCO2 POC ABG pO2 Sodium Potassium Chloride Carbon Dioxide BUN Creatinine Glucose POC Glucose 178 H 155 H Calcium AST Total Creatine Kinase CK-MB (CK-2) Troponin T NT-Pro-B Natriuret Pep Total Protein Albumin HDL Cholesterol 01/23/19 01/23/19 01/23/19 11:31 17:49 Unknown WBC RBC Hgb Hct MCV RDW Plt Count Lymph % (Auto) Lymph # Seg Neutrophils % Seg Neuts % (Manual) Lymphocytes % (Manual) Seg Neutrophils # Seg Neutrophils # Man Lymphocytes # (Manual) PT INR POC ABG pH POC ABG pCO2 POC ABG pO2 Sodium Potassium Chloride 95.4 L Carbon Dioxide BUN 37 H Creatinine Glucose 144 H POC Glucose 161 H 142 H Calcium AST 88 H Total Creatine Kinase CK-MB (CK-2) Troponin T NT-Pro-B Natriuret Pep Total Protein 6.0 L Albumin 2.9 L HDL Cholesterol 01/24/19 01/24/19 01/24/19 00:21 05:36 12:35 WBC RBC Hgb Hct MCV RDW Plt Count Lymph % (Auto) Lymph # Seg Neutrophils % Seg Neuts % (Manual) Lymphocytes % (Manual) Seg Neutrophils # Seg Neutrophils # Man Lymphocytes # (Manual) PT INR POC ABG pH POC ABG pCO2 POC ABG pO2 Sodium Potassium Chloride Carbon Dioxide BUN Creatinine Glucose POC Glucose 163 H 147 H 263 H Calcium AST Total Creatine Kinase CK-MB (CK-2) Troponin T NT-Pro-B Natriuret Pep Total Protein Albumin HDL Cholesterol 01/24/19 01/24/19 01/24/19 17:46 23:07 Unknown WBC RBC 2.90 L Hgb 8.3 L Hct 25.0 L MCV RDW Plt Count Lymph % (Auto) Lymph # Seg Neutrophils % Seg Neuts % (Manual) Lymphocytes % (Manual) Seg Neutrophils # Seg Neutrophils # Man Lymphocytes # (Manual) PT INR POC ABG pH POC ABG pCO2 POC ABG pO2 Sodium Potassium Chloride Carbon Dioxide BUN Creatinine Glucose POC Glucose 161 H 167 H Calcium AST Total Creatine Kinase CK-MB (CK-2) Troponin T NT-Pro-B Natriuret Pep Total Protein Albumin HDL Cholesterol 01/24/19 01/25/19 01/25/19 Unknown 05:15 05:15 WBC RBC 2.90 L Hgb 8.4 L Hct 25.2 L MCV RDW Plt Count Lymph % (Auto) Lymph # Seg Neutrophils % Seg Neuts % (Manual) Lymphocytes % (Manual) Seg Neutrophils # Seg Neutrophils # Man Lymphocytes # (Manual) PT INR POC ABG pH POC ABG pCO2 POC ABG pO2 Sodium 134 L 135 L Potassium Chloride 94.4 L 94.0 L Carbon Dioxide BUN 35 H 35 H Creatinine Glucose 151 H 128 H POC Glucose Calcium AST Total Creatine Kinase CK-MB (CK-2) Troponin T NT-Pro-B Natriuret Pep Total Protein Albumin HDL Cholesterol 01/25/19 01/25/19 01/25/19 05:15 05:35 11:09 WBC RBC Hgb Hct MCV RDW Plt Count Lymph % (Auto) Lymph # Seg Neutrophils % Seg Neuts % (Manual) Lymphocytes % (Manual) Seg Neutrophils # Seg Neutrophils # Man Lymphocytes # (Manual) PT 18.8 H INR 1.47 H POC ABG pH POC ABG pCO2 POC ABG pO2 Sodium Potassium Chloride Carbon Dioxide BUN Creatinine Glucose POC Glucose 126 H 149 H Calcium AST Total Creatine Kinase CK-MB (CK-2) Troponin T NT-Pro-B Natriuret Pep Total Protein Albumin HDL Cholesterol 01/25/19 01/25/19 01/26/19 17:24 23:41 00:09 WBC RBC Hgb Hct MCV RDW Plt Count Lymph % (Auto) Lymph # Seg Neutrophils % Seg Neuts % (Manual) Lymphocytes % (Manual) Seg Neutrophils # Seg Neutrophils # Man Lymphocytes # (Manual) PT INR POC ABG pH POC ABG pCO2 POC ABG pO2 Sodium Potassium Chloride Carbon Dioxide BUN Creatinine Glucose POC Glucose 140 H 142 H 156 H Calcium AST Total Creatine Kinase CK-MB (CK-2) Troponin T NT-Pro-B Natriuret Pep Total Protein Albumin HDL Cholesterol 01/26/19 01/26/19 01/26/19 05:05 06:35 06:35 WBC RBC 2.83 L Hgb 8.1 L Hct 24.4 L MCV RDW Plt Count Lymph % (Auto) Lymph # Seg Neutrophils % Seg Neuts % (Manual) Lymphocytes % (Manual) Seg Neutrophils # Seg Neutrophils # Man Lymphocytes # (Manual) PT INR POC ABG pH POC ABG pCO2 POC ABG pO2 Sodium Potassium Chloride 96.9 L Carbon Dioxide BUN 29 H Creatinine Glucose 141 H POC Glucose 159 H Calcium 8.3 L AST Total Creatine Kinase CK-MB (CK-2) Troponin T NT-Pro-B Natriuret Pep Total Protein Albumin HDL Cholesterol 01/26/19 01/26/19 01/27/19 13:16 19:10 00:08 WBC RBC Hgb Hct MCV RDW Plt Count Lymph % (Auto) Lymph # Seg Neutrophils % Seg Neuts % (Manual) Lymphocytes % (Manual) Seg Neutrophils # Seg Neutrophils # Man Lymphocytes # (Manual) PT INR POC ABG pH POC ABG pCO2 POC ABG pO2 Sodium Potassium Chloride Carbon Dioxide BUN Creatinine Glucose POC Glucose 159 H 146 H 140 H Calcium AST Total Creatine Kinase CK-MB (CK-2) Troponin T NT-Pro-B Natriuret Pep Total Protein Albumin HDL Cholesterol 01/27/19 01/27/19 01/27/19 03:30 03:30 06:23 WBC RBC 2.85 L Hgb 8.3 L Hct 24.8 L MCV RDW Plt Count Lymph % (Auto) Lymph # Seg Neutrophils % Seg Neuts % (Manual) Lymphocytes % (Manual) Seg Neutrophils # Seg Neutrophils # Man Lymphocytes # (Manual) PT INR POC ABG pH POC ABG pCO2 POC ABG pO2 Sodium 136 L Potassium Chloride 97.1 L Carbon Dioxide BUN 26 H Creatinine Glucose 129 H POC Glucose 154 H Calcium AST Total Creatine Kinase CK-MB (CK-2) Troponin T NT-Pro-B Natriuret Pep Total Protein Albumin HDL Cholesterol 01/27/19 01/27/19 01/27/19 12:47 17:43 23:31 WBC RBC Hgb Hct MCV RDW Plt Count Lymph % (Auto) Lymph # Seg Neutrophils % Seg Neuts % (Manual) Lymphocytes % (Manual) Seg Neutrophils # Seg Neutrophils # Man Lymphocytes # (Manual) PT INR POC ABG pH POC ABG pCO2 POC ABG pO2 Sodium Potassium Chloride Carbon Dioxide BUN Creatinine Glucose POC Glucose 159 H 180 H 164 H Calcium AST Total Creatine Kinase CK-MB (CK-2) Troponin T NT-Pro-B Natriuret Pep Total Protein Albumin HDL Cholesterol 01/28/19 01/28/19 01/28/19 04:35 12:01 12:01 WBC RBC 2.67 L Hgb 7.9 L Hct 22.9 L MCV RDW Plt Count Lymph % (Auto) Lymph # Seg Neutrophils % Seg Neuts % (Manual) Lymphocytes % (Manual) Seg Neutrophils # Seg Neutrophils # Man Lymphocytes # (Manual) PT INR POC ABG pH POC ABG pCO2 POC ABG pO2 Sodium 136 L Potassium 3.5 L Chloride Carbon Dioxide BUN 18 H Creatinine Glucose 143 H POC Glucose 139 H Calcium 8.0 L AST Total Creatine Kinase CK-MB (CK-2) Troponin T NT-Pro-B Natriuret Pep Total Protein Albumin HDL Cholesterol 01/28/19 01/28/19 01/28/19 12:04 16:59 17:11 WBC RBC Hgb Hct MCV RDW Plt Count Lymph % (Auto) Lymph # Seg Neutrophils % Seg Neuts % (Manual) Lymphocytes % (Manual) Seg Neutrophils # Seg Neutrophils # Man Lymphocytes # (Manual) PT INR POC ABG pH 7.488 H POC ABG pCO2 34.1 L POC ABG pO2 Sodium Potassium Chloride Carbon Dioxide BUN Creatinine Glucose POC Glucose 143 H 163 H Calcium AST Total Creatine Kinase CK-MB (CK-2) Troponin T NT-Pro-B Natriuret Pep Total Protein Albumin HDL Cholesterol 01/29/19 01/29/19 01/29/19 00:10 05:47 12:08 WBC RBC Hgb Hct MCV RDW Plt Count Lymph % (Auto) Lymph # Seg Neutrophils % Seg Neuts % (Manual) Lymphocytes % (Manual) Seg Neutrophils # Seg Neutrophils # Man Lymphocytes # (Manual) PT INR POC ABG pH POC ABG pCO2 POC ABG pO2 Sodium Potassium Chloride Carbon Dioxide BUN Creatinine Glucose POC Glucose 171 H 187 H 137 H Calcium AST Total Creatine Kinase CK-MB (CK-2) Troponin T NT-Pro-B Natriuret Pep Total Protein Albumin HDL Cholesterol 01/29/19 01/29/19 01/29/19 16:48 16:54 17:47 WBC RBC Hgb Hct MCV RDW Plt Count Lymph % (Auto) Lymph # Seg Neutrophils % Seg Neuts % (Manual) Lymphocytes % (Manual) Seg Neutrophils # Seg Neutrophils # Man Lymphocytes # (Manual) PT INR POC ABG pH 7.486 H 7.512 H POC ABG pCO2 32.8 L 32.7 L POC ABG pO2 108 H Sodium Potassium Chloride Carbon Dioxide BUN Creatinine Glucose POC Glucose 156 H Calcium AST Total Creatine Kinase CK-MB (CK-2) Troponin T NT-Pro-B Natriuret Pep Total Protein Albumin HDL Cholesterol 01/29/19 01/30/19 01/30/19 23:48 06:45 07:18 WBC RBC 2.94 L Hgb 8.6 L Hct 25.7 L MCV RDW Plt Count Lymph % (Auto) Lymph # Seg Neutrophils % Seg Neuts % (Manual) Lymphocytes % (Manual) Seg Neutrophils # Seg Neutrophils # Man Lymphocytes # (Manual) PT INR POC ABG pH POC ABG pCO2 POC ABG pO2 Sodium 135 L Potassium Chloride Carbon Dioxide BUN Creatinine Glucose 141 H POC Glucose 185 H Calcium 8.3 L AST Total Creatine Kinase CK-MB (CK-2) Troponin T NT-Pro-B Natriuret Pep Total Protein Albumin HDL Cholesterol 01/30/19 01/30/19 01/30/19 11:17 16:47 18:16 WBC RBC Hgb Hct MCV RDW Plt Count Lymph % (Auto) Lymph # Seg Neutrophils % Seg Neuts % (Manual) Lymphocytes % (Manual) Seg Neutrophils # Seg Neutrophils # Man Lymphocytes # (Manual) PT INR POC ABG pH 7.508 H POC ABG pCO2 31.5 L POC ABG pO2 135 H Sodium Potassium Chloride Carbon Dioxide BUN Creatinine Glucose POC Glucose 170 H 108 H Calcium AST Total Creatine Kinase CK-MB (CK-2) Troponin T NT-Pro-B Natriuret Pep Total Protein Albumin HDL Cholesterol 01/30/19 01/31/19 23:38 05:45 WBC RBC Hgb Hct MCV RDW Plt Count Lymph % (Auto) Lymph # Seg Neutrophils % Seg Neuts % (Manual) Lymphocytes % (Manual) Seg Neutrophils # Seg Neutrophils # Man Lymphocytes # (Manual) PT INR POC ABG pH POC ABG pCO2 POC ABG pO2 Sodium Potassium Chloride Carbon Dioxide BUN Creatinine Glucose POC Glucose 146 H 121 H Calcium AST Total Creatine Kinase CK-MB (CK-2) Troponin T NT-Pro-B Natriuret Pep Total Protein Albumin HDL Cholesterol Allied health notes reviewed: nursing
--- NOTE | 2019-01-31 12:47 | Consultation ---
History of Present Illness - Reason for Consult Consult date: 01/31/19 G-tube placement - History of Present Illness Patient status post arrest. During her hospitalization, the patient underwent placement of tracheostomy however, unable to transilluminate the place gastrostomy tube. Past History Past Medical History: CAD (stent placement), COPD, heart failure, hypertension, stroke, other (Emphesema) Past Surgical History: PTCA Social history: Lives alone, smoking, alcohol abuse (Drinks alcohol daily), full code Family history: CAD, hypertension Medications and Allergies Allergies Allergy/AdvReac Type Severity Reaction Status Date / Time No Known Allergies Allergy Verified 01/30/19 08:22 Home Medications Medication Instructions Recorded Confirmed Last Taken Type AtorvaSTATin [Lipitor] 20 mg PO QHS 01/15/19 01/15/19 Unknown History Carvedilol [Coreg] 25 mg PO DAILY 01/15/19 01/15/19 Unknown History Furosemide [Lasix] 80 mg PO QWEEK 01/15/19 01/15/19 Unknown History Irbesartan 150 mg PO DAILY 01/15/19 01/15/19 Unknown History amLODIPine [Norvasc] 10 mg PO DAILY 01/15/19 01/15/19 Unknown History Active Meds: Active Medications Acetaminophen (Tylenol) 650 mg PO Q4H PRN PRN Reason: Fever >101 Last Admin: 01/20/19 00:24 Dose: 650 mg Documented by: Albuterol/Ipratropium (Duoneb *Not For Prn Use*) 1 ampul IH Q6HRT [facility] Last Admin: 01/31/19 07:49 Dose: 1 ampul Documented by: Amlodipine Besylate (Norvasc) 10 mg PO DAILY [facility] Last Admin: 01/31/19 10:01 Dose: 10 mg Documented by: Lipase/Protease/Amylase ([place] Dr 10,500 Unit) 1 each FEEDTUBE PRN PRN PRN Reason: For Clogged Feeding Tube Aspirin (Baby Aspirin) 81 mg PO QDAY [facility] Last Admin: 01/31/19 10:00 Dose: 81 mg Documented by: Atorvastatin Calcium (Lipitor) 20 mg PO QHS [facility] Last Admin: 01/30/19 21:17 Dose: 20 mg Documented by: Bisacodyl (Dulcolax) 10 mg MS QDAY [facility] Stop: 01/31/19 18:59 Last Admin: 01/31/19 10:01 Dose: 10 mg Documented by: Carvedilol (Coreg) 12.5 mg PO BID [facility] Last Admin: 01/31/19 10:00 Dose: 12.5 mg Documented by: Enoxaparin Sodium (Lovenox) 40 mg SUB-Q QDAY@1000 [facility] Last Admin: 01/31/19 10:01 Dose: 40 mg Documented by: Furosemide (Lasix) 20 mg PO 0600,1800 [facility] Last Admin: 01/31/19 05:50 Dose: 20 mg Documented by: Potassium Chloride/Dextrose/Sod Cl (D5w/0.45% Nacl/Kcl 20 Meq) 20 meq in 1,000 mls @ 50 mls/hr IV DIRECT [facility] Last Admin: 01/30/19 18:16 Dose: 50 mls/hr Documented by: Insulin Human Lispro (Humalog) 0 unit SUB-Q Q6HR [facility]; Protocol Last Admin: 01/31/19 12:20 Dose: Not Given Documented by: Lansoprazole (Prevacid Solutab) 30 mg FEEDTUBE BID [facility] Last Admin: 01/31/19 10:00 Dose: 30 mg Documented by: Levetiracetam (Keppra) 750 mg PO BID [facility] Last Admin: 01/31/19 10:00 Dose: 750 mg Documented by: Simple Syrup (Simple Syrup) 15 ml FEEDTUBE PRN PRN PRN Reason: Hypoglycemia Simple Syrup (Simple Syrup) 30 ml FEEDTUBE PRN PRN PRN Reason: Hypoglycemia Sodium Bicarbonate (Sodium Bicarbonate) 325 mg FEEDTUBE PRN PRN PRN Reason: For Clogged Feeding Tube Sodium Chloride (Sodium Chloride Flush Syringe 10 Ml) 10 ml IV BID [facility] Last Admin: 01/31/19 10:03 Dose: 10 ml Documented by: Sodium Chloride (Sodium Chloride Flush Syringe 10 Ml) 10 ml IV PRN PRN PRN Reason: LINE FLUSH Last Admin: 01/29/19 12:43 Dose: 10 ml Documented by: Triamcinolone Acetonide (Kenalog) 1 applic TP BID [facility] Last Admin: 01/31/19 10:02 Dose: 1 applic Documented by: Review of Systems ROS unobtainable: due to mental status Exam - Constitutional Vitals: Temp Pulse Resp BP Pulse Ox 98.6 F 88 24 97/54 100 01/31/19 12:00 01/31/19 11:59 01/31/19 11:59 01/31/19 11:00 01/31/19 11:59 General appearance: Present: other (trached, nonresponsive at time of examination) Results - Labs CBC & Chem 7: 01/30/19 06:45 01/30/19 07:18 Labs: Abnormal lab results 01/30/19 01/30/19 01/30/19 Range/Units 11:17 16:47 18:16 POC ABG pH 7.508 H (7.35-7.45) POC ABG pCO2 31.5 L (35-45) POC ABG pO2 135 H (80-105) POC Glucose 170 H 108 H (70-105) 01/30/19 01/31/19 01/31/19 Range/Units 23:38 05:45 12:04 POC ABG pH (7.35-7.45) POC ABG pCO2 (35-45) POC ABG pO2 (80-105) POC Glucose 146 H 121 H 152 H (70-105) Assessment and Plan We'll obtain a CT of the abdomen and pelvis to determine if patient's anatomy is suitable for percutaneous placement of gastrostomy tube.
--- NOTE | 2019-01-31 13:39 | Progress Note ---
Assessment and Plan Assessment and plan: Cardiopulmonary arrest. Patient with out of hospital PEA arrest and ROSC. Cardiology following. Acute hypoxemic hypercapnic respiratory failure. Patient previously on mechanical ventilation but has been weaned. Continue ATP trials. Continue trach care. Partial SBO versus ileus. Serial KUB Aspiration pneumonia. Continue IV antibiotics per ID. Aspiration precautions. Sepsis. Tracheal aspirate and blood cultures are negative to date. ID following. Anoxic encephalopathy. EEG 01/17/19 reported as abnormal with minimal brain activity. No epileptiform discharges. Neurology following Oropharyngeal dysphagia. IR consult. We'll obtain a CT of the abdomen and pelvis to determine if patient's anatomy is suitable for percutaneous placement of gastrostomy tube. Acute renal failure. Etiology likely secondary to acute kidney injury from sepsis. Creatinine is stable. Continue to monitor. Pulmonary hypertension. Consider CT of the chest when medically stable. Acute systolic heart failure. Patient with moderate global hypokinesis of left ventricle EF 35-40% and left ventricular systolic function moderately decreased. CAD s/p stent placement She goes to [facility] at [place] The high probability of a clinically significant, sudden or life threatening deterioration of the [cardiac and respiratory] system(s) required my full and direct attention, intervention and personal management. The aggregate critical care time was [31] minutes. This time is in addition to time spent performing reported procedures but includes the following: [x] Data Review and interpretation [x] Patient assessment and monitoring of vital signs [x] Documentation [x] Medication orders and management History Interval history: Patient is 73 yo with hypertension, CAD s/p stent, COPD/emphesema, not on home Oxygen. She was Brought in by paramedics 01/15/19 after cardiorespiratory arrest at home. History obtained from daughter and granddaughter at bedside. Patient called a family member that she had more shortness of breath . Family member lives in same Apartment complex, same floor, came to her, found her on floor not breathing, started CPR, called paramedics. She was in jhon PEA, given 2 rounds Epinephrine, CPR, intubated , resuscitated, and brought to ED. Patient was seen and evaluated in ED and admitted to ICU. She was evaluated by lmonology/Cleaner Operator. She had seizures later same day, was started on keppra. Shwe had CARMELINA on presentation, resolved in few days. She remained comatose, acute respiratory failure vent dependent. Trach and PEG was recommended. Tracheostomy done 01/25. PEG not done yet because of abdominal distension. She has poor prognosis. may need LTAC Hospitalist Physical - Constitutional Vitals: Temp Pulse Resp BP Pulse Ox 98.6 F 84 16 97/54 100 01/31/19 12:00 01/31/19 13:13 01/31/19 13:13 01/31/19 11:00 01/31/19 11:59 General appearance: Present: other (trached, nonresponsive at time of e xamination) - EENT Eyes: Present: PERRL, EOM intact ENT: hearing intact, clear oral mucosa, dentition normal - Neck Neck: Present: supple, normal ROM - Respiratory Respiratory effort: normal Respiratory: bilateral: CTA - Cardiovascular Rhythm: regular Heart Sounds: Present: S1 & S2. Absent: gallop, rub - Extremities Extremities: no ischemia, No edema, Full ROM - Abdominal General gastrointestinal: soft, non-tender, non-distended, normal bowel sounds - Integumentary Integumentary: Present: clear, warm, dry - Neurologic Neurologic: CNII-XII intact, moves all extremities Results - Labs CBC & Chem 7: 01/30/19 06:45 01/30/19 07:18 Labs: Laboratory Last Values WBC 8.2 K/mm3 (4.5-11.0) 01/30/19 06:45 RBC 2.94 M/mm3 (3.65-5.03) L 01/30/19 06:45 Hgb 8.6 gm/dl (10.1-14.3) L 01/30/19 06:45 Hct 25.7 % (30.3-42.9) L 01/30/19 06:45 MCV 87 fl (79-97) 01/30/19 06:45 MCH 29 pg (28-32) 01/30/19 06:45 MCHC 33 % (30-34) 01/30/19 06:45 RDW 14.6 % (13.2-15.2) 01/30/19 06:45 Plt Count 370 K/mm3 (140-440) 01/30/19 06:45 Lymph % (Auto) 6.3 % (13.4-35.0) L 01/23/19 00:01 [place] % (Auto) 6.6 % (0.0-7.3) 01/23/19 00:01 Eos % (Auto) 0.5 % (0.0-4.3) 01/23/19 00:01 Baso % (Auto) 0.3 % (0.0-1.8) 01/23/19 00:01 Lymph # 0.6 K/mm3 (1.2-5.4) L 01/23/19 00:01 [place] # 0.7 K/mm3 (0.0-0.8) 01/23/19 00:01 Eos # 0.1 K/mm3 (0.0-0.4) 01/23/19 00:01 Baso # 0.0 K/mm3 (0.0-0.1) 01/23/19 00:01 Add Manual Diff Complete 01/16/19 04:16 Total Counted 100 01/16/19 04:16 Seg Neutrophils % 86.3 % (40.0-70.0) H 01/23/19 00:01 Seg Neuts % (Manual) 74.0 % (40.0-70.0) H 01/16/19 04:16 22.0 % 01/16/19 04:16 2.0 % (13.4-35.0) L 01/16/19 04:16 Reactive Lymphs % (Man) 0 % 01/16/19 04:16 2.0 % (0.0-7.3) 01/16/19 04:16 0 % (0.0-4.3) 01/16/19 04:16 0 % (0.0-1.8) 01/16/19 04:16 0 % 01/16/19 04:16 0 % 01/16/19 04:16 0 % 01/16/19 04:16 0 % 01/16/19 04:16 Nucleated RBC % Not Reportable 01/16/19 04:16 Seg Neutrophils # 8.9 K/mm3 (1.8-7.7) H 01/23/19 00:01 Seg Neutrophils # Man 8.4 K/mm3 (1.8-7.7) H 01/16/19 04:16 Band Neutrophils # 2.5 K/mm3 01/16/19 04:16 0.2 K/mm3 (1.2-5.4) L 01/16/19 04:16 Abs React Lymphs (Man) 0.0 K/mm3 01/16/19 04:16 0.2 K/mm3 (0.0-0.8) 01/16/19 04:16 0.0 K/mm3 (0.0-0.4) 01/16/19 04:16 0.0 K/mm3 (0.0-0.1) 01/16/19 04:16 0.0 K/mm3 01/16/19 04:16 0.0 K/mm3 01/16/19 04:16 0.0 K/mm3 01/16/19 04:16 Blast Cells # 0.0 K/mm3 01/16/19 04:16 WBC Morphology Not Reportable 01/16/19 04:16 Hypersegmented Neuts Not Reportable 01/16/19 04:16 Hyposegmented Neuts Not Reportable 01/16/19 04:16 Hypogranular Neuts Not Reportable 01/16/19 04:16 Not Reportable 01/16/19 04:16 Not Reportable 01/16/19 04:16 Not Reportable 01/16/19 04:16 Not Reportable 01/16/19 04:16 Not Reportable 01/16/19 04:16 Not Reportable 01/16/19 04:16 Consistent w auto 01/16/19 04:16 Not Reportable 01/16/19 04:16 Plt Clumps, EDTA Not Reportable 01/16/19 04:16 Not Reportable 01/16/19 04:16 Not Reportable 01/16/19 04:16 Not Reportable 01/16/19 04:16 Plt Morphology Comment Not Reportable 01/16/19 04:16 RBC Morphology Normal 01/16/19 04:16 Dimorphic RBCs Not Reportable 01/16/19 04:16 Not Reportable 01/16/19 04:16 Not Reportable 01/16/19 04:16 Not Reportable 01/16/19 04:16 Not Reportable 01/16/19 04:16 Not Reportable 01/16/19 04:16 Not Reportable 01/16/19 04:16 Not Reportable 01/16/19 04:16 Not Reportable 01/16/19 04:16 Not Reportable 01/16/19 04:16 Not Reportable 01/16/19 04:16 Not Reportable 01/16/19 04:16 Not Reportable 01/16/19 04:16 Not Reportable 01/16/19 04:16 Not Reportable 01/16/19 04:16 Not Reportable 01/16/19 04:16 Not Reportable 01/16/19 04:16 Not Reportable 01/16/19 04:16 Not Reportable 01/16/19 04:16 Not Reportable 01/16/19 04:16 Acanthocytes (Spur) Not Reportable 01/16/19 04:16 Rouleaux Not Reportable 01/16/19 04:16 Not Reportable 01/16/19 04:16 Not Reportable 01/16/19 04:16 Not Reportable 01/16/19 04:16 Not Reportable 01/16/19 04:16 Hem Pathologist Commnt No 01/16/19 04:16 PT 18.8 Sec. (12.2-14.9) H 01/25/19 05:15 INR 1.47 (0.87-1.13) H 01/25/19 05:15 APTT 36.0 Sec. (24.2-36.6) 01/15/19 07:50 Heparin Anti-Xa, Unfract Negative (Negative) 01/19/19 Unknown POC ABG pH 7.508 (7.35-7.45) H 01/30/19 16:47 POC ABG pCO2 31.5 (35-45) L 01/30/19 16:47 POC ABG pO2 135 (80-105) H 01/30/19 16:47 POC ABG HCO3 25.0 (22-26 mml/L) 01/30/19 16:47 POC ABG Total CO2 26 (23-27mmol/L) 01/30/19 16:47 POC ABG O2 Sat 99 01/30/19 16:47 POC ABG Base Excess 2 ((-2) - (+3)mmol/L) 01/30/19 16:47 28 % 01/30/19 16:47 Sodium 135 mmol/L (137-145) L 01/30/19 07:18 Potassium 3.7 mmol/L (3.6-5.0) 01/30/19 07:18 Chloride 99.2 mmol/L (98-107) 01/30/19 07:18 Carbon Dioxide 24 mmol/L (22-30) 01/30/19 07:18 16 mmol/L 01/30/19 07:18 BUN 15 mg/dL (7-17) 01/30/19 07:18 0.7 mg/dL (0.7-1.2) 01/30/19 07:18 Estimated GFR > 60 ml/min 01/30/19 07:18 21 % 01/30/19 07:18 Glucose 141 mg/dL (65-100) H 01/30/19 07:18 POC Glucose 152 (70-105) H 01/31/19 12:04 6.0 % (4-6) 01/15/19 11:53 Calcium 8.3 mg/dL (8.4-10.2) L 01/30/19 07:18 0.30 mg/dL (0.1-1.2) 01/23/19 Unknown AST 88 units/L (5-40) H 01/23/19 Unknown ALT 31 units/L (7-56) 01/23/19 Unknown 48 units/L (35-129) 01/23/19 Unknown 1430 units/L (30-135) H 01/15/19 17:52 CK-MB (CK-2) 13.5 ng/mL (0.0-4.0) H 01/15/19 17:52 CK-MB (CK-2) Rel Index 0.9 (0-4) 01/15/19 17:52 0.036 ng/mL (0.00-0.029) H D 01/15/19 17:52 NT-Pro-B Natriuret Pep 5346 pg/mL (0-900) H 01/15/19 07:50 6.0 g/dL (6.3-8.2) L 01/23/19 Unknown 2.9 g/dL (3.9-5) L 01/23/19 Unknown 0.9 % 01/23/19 Unknown Triglycerides 75 mg/dL (2-149) 01/15/19 17:52 Cholesterol 149 mg/dL (50-199) 01/15/19 17:52 84 mg/dL (50-130) 01/15/19 17:52 65 mg/dL (40-59) H 01/15/19 17:52 2.29 % 01/15/19 17:52 See scanned report 01/19/19 Unknown Yellow (Yellow) 01/21/19 16:10 Clear (Clear) 01/21/19 16:10 6.0 (5.0-7.0) 01/21/19 16:10 Ur Specific [place] 1.015 (1.003-1.030) 01/21/19 16:10 <15 mg/dl mg/dL (Negative) 01/21/19 16:10 Neg mg/dL (Negative) 01/21/19 16:10 Neg mg/dL (Negative) 01/21/19 16:10 Neg (Negative) 01/21/19 16:10 Neg (Negative) 01/21/19 16:10 Neg (Negative) 01/21/19 16:10 2.0 mg/dL (<2.0) 01/21/19 16:10 Ur Leukocyte Esterase Neg (Negative) 01/21/19 16:10 1.0 /HPF (0.0-6.0) 01/21/19 16:10 5.0 /HPF (0.0-6.0) 01/21/19 16:10 Presumptive negative 01/15/19 16:30 Presumptive negative 01/15/19 16:30 Ur Barbiturates Screen Presumptive negative 01/15/19 16:30 Ur Phencyclidine Scrn Presumptive negative 01/15/19 16:30 Ur Amphetamines Screen Presumptive negative 01/15/19 16:30 U Benzodiazepines Scrn Presumptive negative 01/15/19 16:30 Presumptive negative 01/15/19 16:30 U Marijuana (THC) Screen Presumptive negative 01/15/19 16:30 Disclamer 01/15/19 16:30 Heparin-induced Plt Ab Negative (Negative) 01/19/19 Unknown UF Heparin High Dose 3 % Release 01/19/19 Unknown JOSEFA UFH Low Dose 0.1 4 % Release 01/19/19 Unknown JOSEFA UFH Low Dose 0.5 5 % Release 01/19/19 Unknown C. difficile Tox (PCR) Negative (Negative) 01/16/19 00:00 Active Medications - Current Medications Current Medications: Generic Name Dose Route Start Last Admin Trade Name Freq PRN Reason Stop Dose Admin Acetaminophen 650 mg 01/16/19 09:37 01/20/19 00:24 Tylenol PO 650 mg Q4H PRN Administration Fever >101 Albuterol/Ipratropium 1 ampul 01/15/19 14:00 01/31/19 13:13 Duoneb *Not For Prn Use* IH 1 ampul Q6HRT DEON Administration Amlodipine Besylate 10 mg 01/24/19 12:00 01/31/19 10:01 Norvasc PO 10 mg DAILY DEON Administration Lipase/Protease/Amylase 1 each 01/15/19 14:37 [place] 10,500 Unit FEEDTUBE PRN PRN For Clogged Feeding Tube Aspirin 81 mg 01/16/19 10:00 01/31/19 10:00 Baby Aspirin PO 81 mg QDAY DEON Administration Atorvastatin Calcium 20 mg 01/16/19 22:00 01/30/19 21:17 Lipitor PO 20 mg QHS DEON Administration Bisacodyl 10 mg 01/28/19 19:00 01/31/19 10:01 Dulcolax TN 01/31/19 18:59 10 mg QDAY DEON Administration Carvedilol 12.5 mg 01/24/19 22:00 01/31/19 10:00 Coreg PO 12.5 mg BID DEON Administration Enoxaparin Sodium 40 mg 01/30/19 10:00 01/31/19 10:01 Lovenox SUB-Q 40 mg QDAY@1000 [facility]ON Administration Furosemide 20 mg 01/19/19 18:00 01/31/19 05:50 Lasix PO 20 mg 0600,1800 DEON Administration Potassium Chloride/Dextrose/Sod Cl 20 meq in 1,000 mls @ 50 mls/hr 01/26/19 14:00 01/30/19 18:16 D5w/0.45% Nacl/Kcl 20 Meq IV 50 mls/hr DIRECT [facility] Administration Insulin Human Lispro 0 unit 01/22/19 14:00 01/31/19 12:20 Humalog SUB-Q Not Given Q6HR DEON Protocol Lansoprazole 30 mg 01/30/19 10:00 01/31/19 10:00 Prevacid Solutab FEEDTUBE 30 mg BID DEON Administration Levetiracetam 750 mg 01/18/19 10:00 01/31/19 10:00 Keppra PO 750 mg BID DEON Administration Simple Syrup 15 ml 01/15/19 14:37 Simple Syrup FEEDTUBE PRN PRN Hypoglycemia Simple Syrup 30 ml 01/15/19 14:37 Simple Syrup FEEDTUBE PRN PRN Hypoglycemia Sodium Bicarbonate 325 mg 01/15/19 14:37 Sodium Bicarbonate FEEDTUBE PRN PRN For Clogged Feeding Tube Sodium Chloride 10 ml 01/15/19 22:00 01/31/19 10:03 Sodium Chloride Flush Syringe 10 Ml IV 10 ml BID DEON Administration Sodium Chloride 10 ml 01/15/19 10:34 01/29/19 12:43 Sodium Chloride Flush Syringe 10 Ml IV 10 ml PRN PRN Administration LINE FLUSH Triamcinolone Acetonide 1 applic 01/24/19 14:00 01/31/19 10:02 Kenalog TP 1 applic BID DEON Administration Nutrition/Malnutrition Assess - Dietary Evaluation Nutrition/Malnutrition Findings: Nutrition Notes Start: 01/15/19 14:28 Freq: Status: Active Protocol: Document 01/30/19 15:14 RM (Rec: 01/30/19 15:20 RM [email or web address]) Nutrition Notes Initial or Follow up Reassessment Current Diagnosis Acute Kidney Injury,Heart Failure,Respiratory Failure Other Pertinent Diagnosis s/p cardiorespiratory arrest ( at home) Current Diet NPO Labs/Tests Reviewed Pertinent Medications D5 1/2NS + 20mEq KCl at 50ml/ hr, Reglan, Lasix Height 5 ft 4 in Weight 45.8 kg [place] Body Weight (kg) 54.54 BMI 17.3 Subjective/Other Information No TF formula hanging in room. PEG not placed today. MD waiting for ileus to resolve before PEG placement or resuming of TF. Burn Absent Trauma Absent #1 Nutrition Diagnosis Inadequate oral intake Diagnosis Progress(for reassessment Continues documentation) Is patient on ventilator? Yes Is Patient Ambulatory and/or Out of Bed No REE-([facility]-confined to bed) 1132.248 Kcal/Kg value to use for calculation 35 Approximate Energy Requirements Using 1603 kcal/Kg Calculation Used for Recommendations Kcal/kg Additional Notes Pro needs 1.2-2g/k-92g/ day Fluid needs 1ml/kcal Nutrition Intervention Nutrition Support: Restart TF once PEG placed Goal #1 Restart EN support to meet nutrient needs Goal #2 Wt maintenance and/or gain Follow-Up By: 02/01/19 Additional Comments Follow for PEG placement, TF restart
--- NOTE | 2019-01-31 14:05 | Cat Scan Report ---
PROCEDURE: CT ABDOMEN PELVIS W CON TECHNIQUE: CT of the abdomen and pelvis was performed. IV contrast was administered. Axial images and coronal and sagittal reformatted images were obtained. HISTORY: abdominal pain COMPARISON: None FINDINGS: There is some infiltrate versus atelectasis at the right lung base. There are coronary artery calcifications. There is moderate cardiomegaly. There is gallbladder distention with cholelithiasis. The visualized liver, spleen, pancreas, adrenal glands and kidneys demonstrate no significant abnorma lity. There are aortoiliac atherosclerotic calcifications. There are multiple small renal cysts. There is stenosis involving the proximal left common iliac artery where there is ectasia with plaque and mural thrombus. There is no abdominal aortic aneurysm. There is no evidence for intestinal obstruction. There is a large amount of stool in the right colon. The appendix is not identified with certainty. There is no free intraperitoneal air. There is a Estes catheter in the bladder. IMPRESSION: Gallbladder distention with cholelithiasis. Prominent aortoiliac atherosclerosis with stenosis involving proximal left common iliac artery. Cardiomegaly and coronary artery atherosclerotic calcifications. Infiltrate versus atelectasis at the right lung base. Prominent stool in right colon. This document is electronically signed by Ayanna Torre MD., Jan 31 2019 02:03:10 PM ET
[2019-01-31] MEDS: D5W/0.45% NACL/KCL 20 MEQ 20 MEQ/1,000 ML BAG IV SCH (15:40)
[2019-02-01] MEDS: HumaLOG SUB-Q SCH ×4 (01:15→17:48)
[2019-02-01] MEDS: DUONEB *Not for PRN Use IH SCH ×4 (02:11→20:53)
[2019-02-01] MEDS: LASIX PO SCH ×2 (07:38→17:48)
[2019-02-01] MEDS: KEPPRA PO SCH ×2 (10:08→21:38)
[2019-02-01] MEDS: NORVASC PO SCH (10:09)
[2019-02-01] MEDS: COREG PO SCH ×2 (10:09→21:39)
[2019-02-01] MEDS: BABY ASPIRIN PO SCH (10:09)
[2019-02-01] MEDS: PREVACID SOLUTAB FEEDTUBE SCH ×2 (10:10→21:39)
[2019-02-01] MEDS: LOVENOX SUB-Q SCH (10:10)
[2019-02-01] MEDS: KENALOG TP SCH ×3 (10:10→21:46)
[2019-02-01] MEDS: SODIUM CHLORIDE FLUSH SYRINGE 10 ML IV SCH ×2 (10:11→22:00)
[2019-02-01] MEDS ORDERED: CITRATE OF MAGNESIA PO ONE (12:00)
[2019-02-01] MEDS: D5W/0.45% NACL/KCL 20 MEQ 20 MEQ/1,000 ML BAG IV SCH (13:06)
[2019-02-01] MEDS: REGLAN IV SCH ×2 (13:10→21:41)
[2019-02-01 13:12] LABS: BUN/Creatinine Ratio 17; Blood Urea Nitrogen 12 mg/dL (7-17); Calcium 8.3 mg/dL (8.4-10.2); Hemolysis Index 3
--- NOTE | 2019-02-01 13:36 | Progress Note ---
Assessment and Plan Assessment and plan: Cardiopulmonary arrest. Patient with out of hospital PEA arrest and ROSC. Cardiology following. Acute hypoxemic hypercapnic respiratory failure. Patient previously on mechanical ventilation but has been weaned. Continue ATP trials. Continue trach care. Partial SBO versus ileus. Serial KUB Aspiration pneumonia. Continue IV antibiotics per ID. Aspiration precautions. Sepsis. Tracheal aspirate and blood cultures are negative to date. ID following. Anoxic encephalopathy. EEG 01/17/19 reported as abnormal with minimal brain activity. No epileptiform discharges. Neurology following Oropharyngeal dysphagia. IR consult. We'll obtain a CT of the abdomen and pelvis to determine if patient's anatomy is suitable for percutaneous placement of gastrostomy tube. Acute renal failure. Etiology likely secondary to acute kidney injury from sepsis. Creatinine is stable. Continue to monitor. Pulmonary hypertension. Consider CT of the chest when medically stable. Acute systolic heart failure. Patient with moderate global hypokinesis of left ventricle EF 35-40% and left ventricular systolic function moderately decreased. 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 The aggregate critical care time was [32] minutes. This time is in addition to time spent performing reported procedures but includes the following: [x] Data Review and interpretation [x] Patient assessment and monitoring of vital signs [x] Documentation [x] Medication orders and management History Interval history: Patient is 73 yo with hypertension, CAD s/p stent, COPD/emphesema, not on home Oxygen. She was Brought in by paramedics 01/15/19 after cardiorespiratory arrest at home. History obtained from daughter and granddaughter at bedside. Patient called a family member that she had more shortness of breath . Family member lives in same Apartment complex, same floor, came to her, found her on floor not breathing, started CPR, called paramedics. She was in jhon PEA, given 2 rounds Epinephrine, CPR, intubated , resuscitated, and brought to ED. Patient was seen and evaluated in ED and admitted to ICU. She was evaluated by lmonology/Videotape Sales Representative. She had seizures later same day, was started on keppra. Shwe had CARMELINA on presentation, resolved in few days. She remained comatose, acute respiratory failure vent dependent. Trach and PEG was recommended. Tracheostomy done 01/25. PEG not done yet because of abdominal distension. She has poor prognosis. may need LTAC Hospitalist Physical - Constitutional Vitals: Temp Pulse Resp BP Pulse Ox 98.8 F 83 26 H 126/70 100 02/01/19 12:00 02/01/19 10:09 02/01/19 09:18 02/01/19 10:09 02/01/19 09:08 General appearance: Present: other (trached, nonresponsive at time of examination) - EENT Eyes: Present: PERRL, EOM intact ENT: hearing intact, clear oral mucosa, dentition normal - Neck Neck: Present: supple, normal ROM - Respiratory Respiratory effort: normal Respiratory: bilateral: CTA - Cardiovascular Rhythm: regular Heart Sounds: Present: S1 & S2. Absent: gallop, rub - Extremities Extremities: no ischemia, No edema, Full ROM - Abdominal General gastrointestinal: soft, non-tender, non-distended, normal bowel sounds - Integumentary Integumentary: Present: clear, warm, dry - Neurologic Neurologic: CNII-XII intact, moves all extremities Results - Labs CBC & Chem 7: 01/30/19 06:45 02/01/19 12:18 Labs: Laboratory Last Values WBC 8.2 K/mm3 (4.5-11.0) 01/30/19 06:45 RBC 2.94 M/mm3 (3.65-5.03) L 01/30/19 06:45 Hgb 8.6 gm/dl (10.1-14.3) L 01/30/19 06:45 Hct 25.7 % (30.3-42.9) L 01/30/19 06:45 MCV 87 fl (79-97) 01/30/19 06:45 MCH 29 pg (28-32) 01/30/19 06:45 MCHC 33 % (30-34) 01/30/19 06:45 RDW 14.6 % (13.2-15.2) 01/30/19 06:45 Plt Count 370 K/mm3 (140-440) 01/30/19 06:45 Lymph % (Auto) 6.3 % (13.4-35.0) L 01/23/19 00:01 [place] % (Auto) 6.6 % (0.0-7.3) 01/23/19 00:01 Eos % (Auto) 0.5 % (0.0-4.3) 01/23/19 00:01 Baso % (Auto) 0.3 % (0.0-1.8) 01/23/19 00:01 Lymph # 0.6 K/mm3 (1.2-5.4) L 01/23/19 00:01 [place] # 0.7 K/mm3 (0.0-0.8) 01/23/19 00:01 Eos # 0.1 K/mm3 (0.0-0.4) 01/23/19 00:01 Baso # 0.0 K/mm3 (0.0-0.1) 01/23/19 00:01 Add Manual Diff Complete 01/16/19 04:16 Total Counted 100 01/16/19 04:16 Seg Neutrophils % 86.3 % (40.0-70.0) H 01/23/19 00:01 Seg Neuts % (Manual) 74.0 % (40.0-70.0) H 01/16/19 04:16 22.0 % 01/16/19 04:16 2.0 % (13.4-35.0) L 01/16/19 04:16 Reactive Lymphs % (Man) 0 % 01/16/19 04:16 2.0 % (0.0-7.3) 01/16/19 04:16 0 % (0.0-4.3) 01/16/19 04:16 0 % (0.0-1.8) 01/16/19 04:16 0 % 01/16/19 04:16 0 % 01/16/19 04:16 0 % 01/16/19 04:16 0 % 01/16/19 04:16 Nucleated RBC % Not Reportable 01/16/19 04:16 Seg Neutrophils # 8.9 K/mm3 (1.8-7.7) H 01/23/19 00:01 Seg Neutrophils # Man 8.4 K/mm3 (1.8-7.7) H 01/16/19 04:16 Band Neutrophils # 2.5 K/mm3 01/16/19 04:16 0.2 K/mm3 (1.2-5.4) L 01/16/19 04:16 Abs React Lymphs (Man) 0.0 K/mm3 01/16/19 04:16 0.2 K/mm3 (0.0-0.8) 01/16/19 04:16 0.0 K/mm3 (0.0-0.4) 01/16/19 04:16 0.0 K/mm3 (0.0-0.1) 01/16/19 04:16 0.0 K/mm3 01/16/19 04:16 0.0 K/mm3 01/16/19 04:16 0.0 K/mm3 01/16/19 04:16 Blast Cells # 0.0 K/mm3 01/16/19 04:16 WBC Morphology Not Reportable 01/16/19 04:16 Hypersegmented Neuts Not Reportable 01/16/19 04:16 Hyposegmented Neuts Not Reportable 01/16/19 04:16 Hypogranular Neuts Not Reportable 01/16/19 04:16 Not Reportable 01/16/19 04:16 Not Reportable 01/16/19 04:16 Not Reportable 01/16/19 04:16 Not Reportable 01/16/19 04:16 Not Reportable 01/16/19 04:16 Not Reportable 01/16/19 04:16 Consistent w auto 01/16/19 04:16 Not Reportable 01/16/19 04:16 Plt Clumps, EDTA Not Reportable 01/16/19 04:16 Not Reportable 01/16/19 04:16 Not Reportable 01/16/19 04:16 Not Reportable 01/16/19 04:16 Plt Morphology Comment Not Reportable 01/16/19 04:16 RBC Morphology Normal 01/16/19 04:16 Dimorphic RBCs Not Reportable 01/16/19 04:16 Not Reportable 01/16/19 04:16 Not Reportable 01/16/19 04:16 Not Reportable 01/16/19 04:16 Not Reportable 01/16/19 04:16 Not Reportable 01/16/19 04:16 Not Reportable 01/16/19 04:16 Not Reportable 01/16/19 04:16 Not Reportable 01/16/19 04:16 Not Reportable 01/16/19 04:16 Not Reportable 01/16/19 04:16 Not Reportable 01/16/19 04:16 Not Reportable 01/16/19 04:16 Not Reportable 01/16/19 04:16 Not Reportable 01/16/19 04:16 Not Reportable 01/16/19 04:16 Not Reportable 01/16/19 04:16 Not Reportable 01/16/19 04:16 Not Reportable 01/16/19 04:16 Not Reportable 01/16/19 04:16 Acanthocytes (Spur) Not Reportable 01/16/19 04:16 Rouleaux Not Reportable 01/16/19 04:16 Not Reportable 01/16/19 04:16 Not Reportable 01/16/19 04:16 Not Reportable 01/16/19 04:16 Not Reportable 01/16/19 04:16 Hem Pathologist Commnt No 01/16/19 04:16 PT 18.8 Sec. (12.2-14.9) H 01/25/19 05:15 INR 1.47 (0.87-1.13) H 01/25/19 05:15 APTT 36.0 Sec. (24.2-36.6) 01/15/19 07:50 Heparin Anti-Xa, Unfract Negative (Negative) 01/19/19 Unknown POC ABG pH 7.508 (7.35-7.45) H 01/30/19 16:47 POC ABG pCO2 31.5 (35-45) L 01/30/19 16:47 POC ABG pO2 135 (80-105) H 01/30/19 16:47 POC ABG HCO3 25.0 (22-26 mml/L) 01/30/19 16:47 POC ABG Total CO2 26 (23-27mmol/L) 01/30/19 16:47 POC ABG O2 Sat 99 01/30/19 16:47 POC ABG Base Excess 2 ((-2) - (+3)mmol/L) 01/30/19 16:47 28 % 01/30/19 16:47 Sodium 133 mmol/L (137-145) L 02/01/19 12:18 Potassium 3.3 mmol/L (3.6-5.0) L 02/01/19 12:18 Chloride 96.1 mmol/L (98-107) L 02/01/19 12:18 Carbon Dioxide 25 mmol/L (22-30) 02/01/19 12:18 15 mmol/L 02/01/19 12:18 BUN 12 mg/dL (7-17) 02/01/19 12:18 0.7 mg/dL (0.7-1.2) 02/01/19 12:18 Estimated GFR > 60 ml/min 02/01/19 12:18 17 % 02/01/19 12:18 Glucose 145 mg/dL (65-100) H 02/01/19 12:18 POC Glucose 175 (70-105) H 02/01/19 11:10 6.0 % (4-6) 01/15/19 11:53 Calcium 8.3 mg/dL (8.4-10.2) L 02/01/19 12:18 0.30 mg/dL (0.1-1.2) 01/23/19 Unknown AST 88 units/L (5-40) H 01/23/19 Unknown ALT 31 units/L (7-56) 01/23/19 Unknown 48 units/L (35-129) 01/23/19 Unknown 1430 units/L (30-135) H 01/15/19 17:52 CK-MB (CK-2) 13.5 ng/mL (0.0-4.0) H 01/15/19 17:52 CK-MB (CK-2) Rel Index 0.9 (0-4) 01/15/19 17:52 0.036 ng/mL (0.00-0.029) H D 01/15/19 17:52 NT-Pro-B Natriuret Pep 5346 pg/mL (0-900) H 01/15/19 07:50 6.0 g/dL (6.3-8.2) L 01/23/19 Unknown 2.9 g/dL (3.9-5) L 01/23/19 Unknown 0.9 % 01/23/19 Unknown Triglycerides 75 mg/dL (2-149) 01/15/19 17:52 Cholesterol 149 mg/dL (50-199) 01/15/19 17:52 84 mg/dL (50-130) 01/15/19 17:52 65 mg/dL (40-59) H 01/15/19 17:52 2.29 % 01/15/19 17:52 See scanned report 01/19/19 Unknown Yellow (Yellow) 01/21/19 16:10 Clear (Clear) 01/21/19 16:10 6.0 (5.0-7.0) 01/21/19 16:10 Ur Specific [place] 1.015 (1.003-1.030) 01/21/19 16:10 <15 mg/dl mg/dL (Negative) 01/21/19 16:10 Neg mg/dL (Negative) 01/21/19 16:10 Neg mg/dL (Negative) 01/21/19 16:10 Neg (Negative) 01/21/19 16:10 Neg (Negative) 01/21/19 16:10 Neg (Negative) 01/21/19 16:10 2.0 mg/dL (<2.0) 01/21/19 16:10 Ur Leukocyte Esterase Neg (Negative) 01/21/19 16:10 1.0 /HPF (0.0-6.0) 01/21/19 16:10 5.0 /HPF (0.0-6.0) 01/21/19 16:10 Presumptive negative 01/15/19 16:30 Presumptive negative 01/15/19 16:30 Ur Barbiturates Screen Presumptive negative 01/15/19 16:30 Ur Phencyclidine Scrn Presumptive negative 01/15/19 16:30 Ur Amphetamines Screen Presumptive negative 01/15/19 16:30 U Benzodiazepines Scrn Presumptive negative 01/15/19 16:30 Presumptive negative 01/15/19 16:30 U Marijuana (THC) Screen Presumptive negative 01/15/19 16:30 Disclamer 01/15/19 16:30 Heparin-induced Plt Ab Negative (Negative) 01/19/19 Unknown UF Heparin High Dose 3 % Release 01/19/19 Unknown JOSEFA UFH Low Dose 0.1 4 % Release 01/19/19 Unknown JOSEFA UFH Low Dose 0.5 5 % Release 01/19/19 Unknown C. difficile Tox (PCR) Negative (Negative) 01/16/19 00:00 Active Medications - Current Medications Current Medications: Generic Name Dose Route Start Last Admin Trade Name Freq PRN Reason Stop Dose Admin Acetaminophen 650 mg 01/16/19 09:37 01/20/19 00:24 Tylenol PO 650 mg Q4H PRN Administration Fever >101 Albuterol/Ipratropium 1 ampul 01/15/19 14:00 02/01/19 09:03 Duoneb *Not For Prn Use* IH 1 ampul Q6HRT DEON Administration Amlodipine Besylate 10 mg 01/24/19 12:00 02/01/19 10:09 Norvasc PO 10 mg DAILY DEON Administration Lipase/Protease/Amylase 1 each 01/15/19 14:37 Pancreaze 10,500 Unit FEEDTUBE PRN PRN For Clogged Feeding Tube Aspirin 81 mg 01/16/19 10:00 02/01/19 10:09 Baby Aspirin PO 81 mg QDAY DEON Administration Atorvastatin Calcium 20 mg 01/16/19 22:00 01/31/19 21:21 Lipitor PO 20 mg QHS DEON Administration Carvedilol 12.5 mg 01/24/19 22:00 02/01/19 10:09 Coreg PO 12.5 mg BID DEON Administration Enoxaparin Sodium 40 mg 01/30/19 10:00 02/01/19 10:10 Lovenox SUB-Q 40 mg QDAY@1000 DEON Administration Furosemide 20 mg 01/19/19 18:00 02/01/19 07:38 Lasix PO 20 mg 0600,1800 DEON Administration Potassium Chloride/Dextrose/Sod Cl 20 meq in 1,000 mls @ 50 mls/hr 01/26/19 14:00 02/01/19 13:06 D5w/0.45% Nacl/Kcl 20 Meq IV 02/01/19 19:59 50 mls/hr DIRECT DEON Administration Amino Acids 2,000 mls @ 75 mls/hr 02/01/19 20:00 Clinimix 4.25%-5% Solution IV 02/02/19 19:59 ONCE DEON Insulin Human Lispro 0 unit 01/22/19 14:00 02/01/19 12:53 Humalog SUB-Q 2 unit Q6HR DEON Administration Protocol Lansoprazole 30 mg 01/30/19 10:00 02/01/19 10:10 Prevacid Solutab FEEDTUBE 30 mg BID DEON Administration Levetiracetam 750 mg 01/18/19 10:00 02/01/19 10:08 Keppra PO 750 mg BID DEON Administration Metoclopramide HCl 10 mg 02/01/19 14:00 02/01/19 13:10 Reglan IV 10 mg Q8HR DEON Administration Simple Syrup 15 ml 01/15/19 14:37 Simple Syrup FEEDTUBE PRN PRN Hypoglycemia Simple Syrup 30 ml 01/15/19 14:37 Simple Syrup FEEDTUBE PRN PRN Hypoglycemia Sodium Bicarbonate 325 mg 01/15/19 14:37 Sodium Bicarbonate FEEDTUBE PRN PRN For Clogged Feeding Tube Sodium Chloride 10 ml 01/15/19 22:00 02/01/19 10:11 Sodium Chloride Flush Syringe 10 Ml IV 10 ml BID DEON Administration Sodium Chloride 10 ml 01/15/19 10:34 01/29/19 12:43 Sodium Chloride Flush Syringe 10 Ml IV 10 ml PRN PRN Administration LINE FLUSH Triamcinolone Acetonide 1 applic 01/24/19 14:00 02/01/19 10:10 Kenalog TP 1 applic BID DEON Administration Nutrition/Malnutrition Assess - Dietary Evaluation Nutrition/Malnutrition Findings: Nutrition Notes Start: 01/15/19 14:28 Freq: Status: Active Protocol: Document 01/30/19 15:14 RM (Rec: 01/30/19 15:20 RM [id number]) Nutrition Notes Initial or Follow up Reassessment Current Diagnosis Acute Kidney Injury,Heart Failure,Respiratory Failure Other Pertinent Diagnosis s/p cardiorespiratory arrest ( at home) Current Diet NPO Labs/Tests Reviewed Pertinent Medications D5 1/2NS + 20mEq KCl at 50ml/ hr, Reglan, Lasix Height 5 ft 4 in Weight 45.8 kg [place] Body Weight (kg) 54.54 BMI 17.3 Subjective/Other Information No TF formula hanging in room. PEG not placed today. MD waiting for ileus to resolve before PEG placement or resuming of TF. Burn Absent Trauma Absent #1 Nutrition Diagnosis Inadequate oral intake Diagnosis Progress(for reassessment Continues documentation) Is patient on ventilator? Yes Is Patient Ambulatory and/or Out of Bed No REE-([facility]-confined to bed) 1132.248 Kcal/Kg value to use for calculation 35 Approximate Energy Requirements Using 1603 kcal/Kg Calculation Used for Recommendations Kcal/kg Additional Notes Pro needs 1.2-2g/k-92g/ day Fluid needs 1ml/kcal Nutrition Intervention Nutrition Support: Restart TF once PEG placed Goal #1 Restart EN support to meet nutrient needs Goal #2 Wt maintenance and/or gain Follow-Up By: 02/01/19 Additional Comments Follow for PEG placement, TF restart
--- NOTE | 2019-02-01 14:39 | Progress Note ---
Assessment and Plan Reviewed CT scan. Patient has colon anterior to both the liver and stomach. Dr. Hunt and I reviewed the imaging. Unfortunately, the patient is not a candidate for percutaneous G tube placement. This is probably why endoscopy was not able to transilluminate the anterior skin through the stomach. Consider surgical G tube placement if an option. Subjective Date of service: 02/01/19 Principal diagnosis: OOH cardiac arrest; Acute hypoxemic-hypercapnic Resp failure; PNA Interval history: Reviewed CT scan. Objective - Constitutional Vitals: Vital Signs - 12hr 02/01/19 02/01/19 02/01/19 03:00 04:00 04:51 Temperature 98.6 F Pulse Rate 83 78 Pulse Rate [ Anterior Bilateral Throughout] Pulse Rate [ 80 From Monitor] Respiratory 27 H 28 H Rate Respiratory Rate [Anterior Bilateral Throughout] Blood Pressure 100/61 113/66 O2 Sat by Pulse 100 100 Oximetry O2 Sat by Pulse 100 Oximetry [ Assessment] 02/01/19 02/01/19 02/01/19 05:00 06:01 07:00 Temperature Pulse Rate 85 82 80 Pulse Rate [ Anterior Bilateral Throughout] Pulse Rate [ From Monitor] Respiratory 28 H 26 H 23 Rate Respiratory Rate [Anterior Bilateral Throughout] Blood Pressure 93/58 118/68 124/64 O2 Sat by Pulse 99 Oximetry O2 Sat by Pulse Oximetry [ Assessment] 02/01/19 02/01/19 02/01/19 07:59 09:05 09:08 Temperature 98.6 F Pulse Rate Pulse Rate [ 89 Anterior Bilateral Throughout] Pulse Rate [ From Monitor] Respiratory Rate Respiratory 25 H Rate [Anterior Bilateral Throughout] Blood Pressure O2 Sat by Pulse 100 Oximetry O2 Sat by Pulse 100 Oximetry [ Assessment] 02/01/19 02/01/19 02/01/19 09:18 10:09 12:00 Temperature 98.8 F Pulse Rate 83 Pulse Rate [ 84 Anterior Bilateral Throughout] Pulse Rate [ From Monitor] Respiratory Rate Respiratory 26 H Rate [Anterior Bilateral Throughout] Blood Pressure 126/70 O2 Sat by Pulse Oximetry O2 Sat by Pulse Oximetry [ Assessment] - Labs CBC & Chem 7: 01/30/19 06:45 02/01/19 12:18 Labs: Abnormal lab results 01/31/19 01/31/19 02/01/19 Range/Units 17:44 23:58 05:46 Sodium (137-145) mmol/L Potassium (3.6-5.0) mmol/L Chloride (98-107) mmol/L Glucose (65-100) mg/dL POC Glucose 153 H 183 H 116 H (70-105) Calcium (8.4-10.2) mg/dL 02/01/19 02/01/19 Range/Units 11:10 12:18 Sodium 133 L (137-145) mmol/L Potassium 3.3 L (3.6-5.0) mmol/L Chloride 96.1 L (98-107) mmol/L Glucose 145 H (65-100) mg/dL POC Glucose 175 H (70-105) Calcium 8.3 L (8.4-10.2) mg/dL Medications & Allergies - Medications Allergies/Adverse Reactions: Allergies No Known Allergies Allergy (Verified 01/30/19 08:22) Home Medications: Home Medications Medication Instructions Recorded Confirmed Last Taken Type AtorvaSTATin [Lipitor] 20 mg PO QHS 01/15/19 01/15/19 Unknown History Carvedilol [Coreg] 25 mg PO DAILY 01/15/19 01/15/19 Unknown History Furosemide [Lasix] 80 mg PO QWEEK 01/15/19 01/15/19 Unknown History Irbesartan 150 mg PO DAILY 01/15/19 01/15/19 Unknown History amLODIPine [Norvasc] 10 mg PO DAILY 01/15/19 01/15/19 Unknown History Active Medications: Generic Name Dose Route Start Last Admin Trade Name Freq PRN Reason Stop Dose Admin Acetaminophen 650 mg 01/16/19 09:37 01/20/19 00:24 Tylenol PO 650 mg Q4H PRN Administration Fever >101 Albuterol/Ipratropium 1 ampul 01/15/19 14:00 02/01/19 14:36 Duoneb *Not For Prn Use* IH 1 ampul Q6HRT DEON Administration Amlodipine Besylate 10 mg 01/24/19 12:00 02/01/19 10:09 Norvasc PO 10 mg DAILY DEON Administration Lipase/Protease/Amylase 1 each 01/15/19 14:37 Pancredelia Siddiqui 10,500 Unit FEEDTUBE PRN PRN For Clogged Feeding Tube Aspirin 81 mg 01/16/19 10:00 02/01/19 10:09 Baby Aspirin PO 81 mg QDAY DEON Administration Atorvastatin Calcium 20 mg 01/16/19 22:00 01/31/19 21:21 Lipitor PO 20 mg QHS DEON Administration Carvedilol 12.5 mg 01/24/19 22:00 02/01/19 10:09 Coreg PO 12.5 mg BID DEON Administration Enoxaparin Sodium 40 mg 01/30/19 10:00 02/01/19 10:10 Lovenox SUB-Q 40 mg QDAY@1000 DEON Administration Furosemide 20 mg 01/19/19 18:00 02/01/19 07:38 Lasix PO 20 mg 0600,1800 DEON Administration Potassium Chloride/Dextrose/Sod Cl 20 meq in 1,000 mls @ 50 mls/hr 01/26/19 14:00 02/01/19 13:06 D5w/0.45% Nacl/Kcl 20 Meq IV 02/01/19 19:59 50 mls/hr DIRECT DEON Administration Amino Acids 2,000 mls @ 75 mls/hr 02/01/19 20:00 Clinimix 4.25%-5% Solution IV 02/02/19 19:59 ONCE DEON Insulin Human Lispro 0 unit 01/22/19 14:00 02/01/19 12:53 Humalog SUB-Q 2 unit Q6HR DEON Administration Protocol Lansoprazole 30 mg 01/30/19 10:00 02/01/19 10:10 Prevacid Solutab FEEDTUBE 30 mg BID DEON Administration Levetiracetam 750 mg 01/18/19 10:00 02/01/19 10:08 Keppra PO 750 mg BID DEON Administration Metoclopramide HCl 10 mg 02/01/19 14:00 02/01/19 13:10 Reglan IV 10 mg Q8HR DEON Administration Simple Syrup 15 ml 01/15/19 14:37 Simple Syrup FEEDTUBE PRN PRN Hypoglycemia Simple Syrup 30 ml 01/15/19 14:37 Simple Syrup FEEDTUBE PRN PRN Hypoglycemia Sodium Bicarbonate 325 mg 01/15/19 14:37 Sodium Bicarbonate FEEDTUBE PRN PRN For Clogged Feeding Tube Sodium Chloride 10 ml 01/15/19 22:00 02/01/19 10:11 Sodium Chloride Flush Syringe 10 Ml IV 10 ml BID DEON Administration Sodium Chloride 10 ml 01/15/19 10:34 01/29/19 12:43 Sodium Chloride Flush Syringe 10 Ml IV 10 ml PRN PRN Administration LINE FLUSH Triamcinolone Acetonide 1 applic 01/24/19 14:00 02/01/19 10:10 Kenalog TP 1 applic BID DEON Administration
--- NOTE | 2019-02-01 15:13 | Progress Note ---
Assessment and Plan s/p Cardiopulmonary arrest, out of hospital, PEA with ROSC Acute hypoxic-hypercapnic respiratory failure on MVS Acute encephalopathy, metabolic Acute metabolic acidosis Acute renal injury Seizure activity Right lower lobe infiltrate, probably aspiration Pyrexia with leukocytosis Pulmonary HTN RVSP 60 Systolic heart failure EF 35-40% Thrombocytopenia (AMS is rate limiting step to safe extubation at this point) - continue T-piece trials as tolerated RTC at this point - continue routine trach care per RT - continue provigil - HIT assay negative - continue Arixtra for now - follow clinically off AB's - neurology evaluation ongoing - Gentle diuresis with oral lasix (now 20mg bid) - sedation target for RASS 0 to -1 - continue GI & VTE prophylaxis - Bronchodilators with pulmonary hygiene per RT - continue to wean supplemental oxygen to keep O2 sats 88-90% - Lung protective strategies - prn ABGs/CXR going forwards - VAP bundle addressed - Continue cardioprotective measures - Replete electrolytes as indicated - Continue bronchodilators with pulmonary hygiene per RT - Estes catheter placed for acute urinary retention - Continue to rest at night on full MVS - Monitor renal indices closely - Avoid nephrotoxic agents, adjust all medications for CrCL - Strict intake and output monitoring - Tube feedings - Accuchecks with glycemic control. Target glucose of 140-180 mg/dL - Maintenance of sleep -wake cycle - Mobility as tolerated by hemodynamics - Influenza and pneumonia vaccination per protocol ..care plan discussed at length with RN/RT at the bedside ..discussed in ICU-IDT rounds PROGNOSIS: GUARDED CONDITION: CRITICAL CODE STATUS: FULL CODE The high probability of a clinically significant, sudden or life-threatening deterioration of the [respiratory, neurology, renal] system(s) required my full and direct attention, intervention and personal management. The aggregate critical care time was [35] minutes without overlap. Time includes spent on; [x] Data Review and interpretation [x] Patient assessment and monitoring of vital signs [x] Documentation [x] Medication orders and management Subjective Date of service: 02/01/19 Principal diagnosis: OOH cardiac arrest; Acute hypoxemic-hypercapnic Resp failure; PNA Interval history: Patient is seen today for: OOH cardiopulmonary arrest with ROSC; Acute hypoxemic-hypercapnic respiratory failure on MVS; acute encephalopathy; aspiration pneumonia; Seen and examined at bedside; 24hour events reviewed; nursing and respiratory care staff consulted; no adverse overnight events reported to me; remains on MVS at night; t-piece during the day; awaiting PEG; daughter visiting; No V/F/C; AMS is persistent Objective Vital Signs - 12hr 02/01/19 02/01/19 02/01/19 04:00 04:51 05:00 Temperature 98.6 F Pulse Rate 78 85 Pulse Rate [ Anterior Bilateral Throughout] Pulse Rate [ 80 From Monitor] Respiratory 28 H 28 H Rate Respiratory Rate [Anterior Bilateral Throughout] Blood Pressure 113/66 93/58 O2 Sat by Pulse 100 99 Oximetry O2 Sat by Pulse 100 Oximetry [ Assessment] 02/01/19 02/01/19 02/01/19 06:01 07:00 07:59 Temperature 98.6 F Pulse Rate 82 80 Pulse Rate [ Anterior Bilateral Throughout] Pulse Rate [ From Monitor] Respiratory 26 H 23 Rate Respiratory Rate [Anterior Bilateral Throughout] Blood Pressure 118/68 124/64 O2 Sat by Pulse Oximetry O2 Sat by Pulse Oximetry [ Assessment] 02/01/19 02/01/19 02/01/19 08:00 09:00 09:05 Temperature Pulse Rate 81 88 Pulse Rate [ 89 Anterior Bilateral Throughout] Pulse Rate [ From Monitor] Respiratory 14 32 H Rate Respiratory 25 H Rate [Anterior Bilateral Throughout] Blood Pressure 128/72 128/80 O2 Sat by Pulse Oximetry O2 Sat by Pulse 100 Oximetry [ Assessment] 02/01/19 02/01/19 02/01/19 09:08 09:18 10:00 Temperature Pulse Rate 84 Pulse Rate [ 84 Anterior Bilateral Throughout] Pulse Rate [ From Monitor] Respiratory 27 H Rate Respiratory 26 H Rate [Anterior Bilateral Throughout] Blood Pressure 126/70 O2 Sat by Pulse 100 75 L Oximetry O2 Sat by Pulse Oximetry [ Assessment] 02/01/19 02/01/19 02/01/19 10:09 11:00 12:00 Temperature 98.8 F Pulse Rate 83 84 Pulse Rate [ Anterior Bilateral Throughout] Pulse Rate [ From Monitor] Respiratory 26 H Rate Respiratory Rate [Anterior Bilateral Throughout] Blood Pressure 126/70 112/58 O2 Sat by Pulse 100 Oximetry O2 Sat by Pulse Oximetry [ Assessment] 02/01/19 02/01/19 02/01/19 12:01 13:00 14:00 Temperature Pulse Rate 82 79 79 Pulse Rate [ Anterior Bilateral Throughout] Pulse Rate [ From Monitor] Respiratory 26 H 30 H 26 H Rate Respiratory Rate [Anterior Bilateral Throughout] Blood Pressure 100/55 96/56 90/53 O2 Sat by Pulse 100 100 98 Oximetry O2 Sat by Pulse Oximetry [ Assessment] 02/01/19 14:37 Temperature Pulse Rate Pulse Rate [ 80 Anterior Bilateral Throughout] Pulse Rate [ From Monitor] Respiratory Rate Respiratory 24 Rate [Anterior Bilateral Throughout] Blood Pressure O2 Sat by Pulse Oximetry O2 Sat by Pulse Oximetry [ Assessment] Constitutional: no acute distress, other (elderly, atraumatic, normocephalic, chronically looking female) Eyes: non-icteric ENT: oropharynx moist, other (s/p tracheostomy) Neck: supple, no lymphadenopathy, no JVD Effort: normal Ascultation: Bilateral: rhonchi (scant) Percussion: Bilateral: not dull Cardiovascular: regular rate and rhythm, other (tacycardia, S1,S2, no murmurs, gallops or rubs) Gastrointestinal: normoactive bowel sounds, soft, non-tender, non-distended Integumentary: normal Extremities: no cyanosis, no edema, pulses normal, no ischemia or petechiae Neurologic: unable to assess Psychiatric: other (unable to assess secondary to mental status) CBC and BMP: 01/30/19 06:45 02/02/19 06:00 ABG, PT/INR, D-dimer: ABG POC ABG pH 7.508 (7.35-7.45) H 01/30/19 16:47 POC ABG pCO2 31.5 (35-45) L 01/30/19 16:47 POC ABG pO2 135 (80-105) H 01/30/19 16:47 POC ABG HCO3 25.0 (22-26 mml/L) 01/30/19 16:47 POC ABG Total CO2 26 (23-27mmol/L) 01/30/19 16:47 POC ABG O2 Sat 99 01/30/19 16:47 PT/INR, D-dimer PT 18.8 Sec. (12.2-14.9) H 01/25/19 05:15 INR 1.47 (0.87-1.13) H 01/25/19 05:15 Abnormal lab findings: Abnormal Labs 01/15/19 01/15/19 01/15/19 07:50 07:50 07:50 WBC RBC Hgb Hct MCV 99 H RDW 16.7 H Plt Count 122 L Lymph % (Auto) Lymph # Seg Neutrophils % Seg Neuts % (Manual) Lymphocytes % (Manual) Seg Neutrophils # Seg Neutrophils # Man Lymphocytes # (Manual) PT 19.7 H INR 1.56 H POC ABG pH POC ABG pCO2 POC ABG pO2 Sodium Potassium Chloride Carbon Dioxide 11 L BUN Creatinine 1.4 H Glucose 268 H POC Glucose Calcium AST 57 H Total Creatine Kinase CK-MB (CK-2) Troponin T NT-Pro-B Natriuret Pep 5346 H Total Protein Albumin 3.6 L HDL Cholesterol 01/15/19 01/15/19 01/15/19 09:56 11:53 17:52 WBC RBC Hgb Hct MCV RDW Plt Count Lymph % (Auto) Lymph # Seg Neutrophils % Seg Neuts % (Manual) Lymphocytes % (Manual) Seg Neutrophils # Seg Neutrophils # Man Lymphocytes # (Manual) PT INR POC ABG pH 7.186 L POC ABG pCO2 46.4 H POC ABG pO2 Sodium Potassium Chloride Carbon Dioxide BUN Creatinine Glucose POC Glucose Calcium AST Total Creatine Kinase 683 H 1430 H CK-MB (CK-2) 9.5 H 13.5 H Troponin T 0.036 H D NT-Pro-B Natriuret Pep Total Protein Albumin HDL Cholesterol 65 H 01/15/19 01/15/19 01/16/19 18:31 21:46 02:14 WBC RBC Hgb Hct MCV RDW Plt Count Lymph % (Auto) Lymph # Seg Neutrophils % Seg Neuts % (Manual) Lymphocytes % (Manual) Seg Neutrophils # Seg Neutrophils # Man Lymphocytes # (Manual) PT INR POC ABG pH POC ABG pCO2 31.8 L POC ABG pO2 167 H Sodium Potassium Chloride Carbon Dioxide BUN Creatinine Glucose POC Glucose 134 H 136 H Calcium AST Total Creatine Kinase CK-MB (CK-2) Troponin T NT-Pro-B Natriuret Pep Total Protein Albumin HDL Cholesterol 01/16/19 01/16/19 01/16/19 04:16 04:16 05:05 WBC 11.4 H RBC Hgb Hct MCV RDW Plt Count 105 L Lymph % (Auto) Lymph # Seg Neutrophils % Seg Neuts % (Manual) 74.0 H Lymphocytes % (Manual) 2.0 L Seg Neutrophils # Seg Neutrophils # Man 8.4 H Lymphocytes # (Manual) 0.2 L PT INR POC ABG pH 7.458 H POC ABG pCO2 31.4 L POC ABG pO2 135 H Sodium Potassium 3.3 L Chloride Carbon Dioxide 21 L D BUN 24 H Creatinine 1.5 H Glucose 141 H POC Glucose Calcium 8.1 L AST 71 H Total Creatine Kinase CK-MB (CK-2) Troponin T NT-Pro-B Natriuret Pep Total Protein 6.2 L Albumin 3.5 L HDL Cholesterol 01/16/19 01/16/19 01/16/19 05:24 13:42 21:08 WBC RBC Hgb Hct MCV RDW Plt Count Lymph % (Auto) Lymph # Seg Neutrophils % Seg Neuts % (Manual) Lymphocytes % (Manual) Seg Neutrophils # Seg Neutrophils # Man Lymphocytes # (Manual) PT INR POC ABG pH POC ABG pCO2 POC ABG pO2 Sodium Potassium Chloride Carbon Dioxide BUN Creatinine Glucose POC Glucose 137 H 129 H 122 H Calcium AST Total Creatine Kinase CK-MB (CK-2) Troponin T NT-Pro-B Natriuret Pep Total Protein Albumin HDL Cholesterol 01/17/19 01/17/19 01/17/19 02:18 04:23 05:13 WBC RBC Hgb Hct MCV RDW Plt Count Lymph % (Auto) Lymph # Seg Neutrophils % Seg Neuts % (Manual) Lymphocytes % (Manual) Seg Neutrophils # Seg Neutrophils # Man Lymphocytes # (Manual) PT INR POC ABG pH 7.479 H POC ABG pCO2 30.0 L POC ABG pO2 141 H Sodium Potassium Chloride Carbon Dioxide BUN Creatinine Glucose POC Glucose 139 H 128 H Calcium AST Total Creatine Kinase CK-MB (CK-2) Troponin T NT-Pro-B Natriuret Pep Total Protein Albumin HDL Cholesterol 01/17/19 01/17/19 01/17/19 10:22 15:59 18:45 WBC RBC Hgb Hct MCV RDW Plt Count Lymph % (Auto) Lymph # Seg Neutrophils % Seg Neuts % (Manual) Lymphocytes % (Manual) Seg Neutrophils # Seg Neutrophils # Man Lymphocytes # (Manual) PT INR POC ABG pH POC ABG pCO2 POC ABG pO2 Sodium Potassium Chloride Carbon Dioxide BUN Creatinine Glucose POC Glucose 133 H 121 H 106 H Calcium AST Total Creatine Kinase CK-MB (CK-2) Troponin T NT-Pro-B Natriuret Pep Total Protein Albumin HDL Cholesterol 01/17/19 01/18/19 01/18/19 23:35 04:21 04:21 WBC RBC 3.27 L Hgb 9.6 L Hct 29.9 L MCV RDW Plt Count 79 L Lymph % (Auto) 6.0 L Lymph # 0.5 L Seg Neutrophils % 89.2 H Seg Neuts % (Manual) Lymphocytes % (Manual) Seg Neutrophils # 8.1 H Seg Neutrophils # Man Lymphocytes # (Manual) PT INR POC ABG pH POC ABG pCO2 POC ABG pO2 Sodium Potassium Chloride Carbon Dioxide BUN 28 H Creatinine 1.3 H Glucose 129 H POC Glucose 121 H Calcium AST 120 H Total Creatine Kinase CK-MB (CK-2) Troponin T NT-Pro-B Natriuret Pep Total Protein 5.1 L Albumin 3.0 L HDL Cholesterol 01/18/19 01/18/19 01/18/19 04:21 04:36 05:43 WBC RBC Hgb Hct MCV RDW Plt Count Lymph % (Auto) Lymph # Seg Neutrophils % Seg Neuts % (Manual) Lymphocytes % (Manual) Seg Neutrophils # Seg Neutrophils # Man Lymphocytes # (Manual) PT INR POC ABG pH 7.485 H POC ABG pCO2 31.0 L POC ABG pO2 126 H Sodium Potassium Chloride Carbon Dioxide BUN 28 H Creatinine 1.3 H Glucose 128 H POC Glucose 142 H Calcium AST Total Creatine Kinase CK-MB (CK-2) Troponin T NT-Pro-B Natriuret Pep Total Protein Albumin HDL Cholesterol 01/18/19 01/18/19 01/18/19 12:04 18:16 20:47 WBC RBC Hgb Hct MCV RDW Plt Count Lymph % (Auto) Lymph # Seg Neutrophils % Seg Neuts % (Manual) Lymphocytes % (Manual) Seg Neutrophils # Seg Neutrophils # Man Lymphocytes # (Manual) PT INR POC ABG pH 7.489 H POC ABG pCO2 32.8 L POC ABG pO2 Sodium Potassium Chloride Carbon Dioxide BUN Creatinine Glucose POC Glucose 113 H 119 H Calcium AST Total Creatine Kinase CK-MB (CK-2) Troponin T NT-Pro-B Natriuret Pep Total Protein Albumin HDL Cholesterol 01/19/19 01/19/19 01/19/19 00:40 05:35 11:39 WBC RBC Hgb Hct MCV RDW Plt Count Lymph % (Auto) Lymph # Seg Neutrophils % Seg Neuts % (Manual) Lymphocytes % (Manual) Seg Neutrophils # Seg Neutrophils # Man Lymphocytes # (Manual) PT INR POC ABG pH POC ABG pCO2 POC ABG pO2 Sodium Potassium Chloride Carbon Dioxide BUN Creatinine Glucose POC Glucose 137 H 157 H 155 H Calcium AST Total Creatine Kinase CK-MB (CK-2) Troponin T NT-Pro-B Natriuret Pep Total Protein Albumin HDL Cholesterol 01/19/19 01/19/19 01/19/19 18:24 21:08 23:33 WBC RBC Hgb Hct MCV RDW Plt Count Lymph % (Auto) Lymph # Seg Neutrophils % Seg Neuts % (Manual) Lymphocytes % (Manual) Seg Neutrophils # Seg Neutrophils # Man Lymphocytes # (Manual) PT INR POC ABG pH 7.508 H POC ABG pCO2 34.2 L POC ABG pO2 Sodium Potassium Chloride Carbon Dioxide BUN Creatinine Glucose POC Glucose 145 H 156 H Calcium AST Total Creatine Kinase CK-MB (CK-2) Troponin T NT-Pro-B Natriuret Pep Total Protein Albumin HDL Cholesterol 01/20/19 01/20/19 01/20/19 05:12 11:42 17:36 WBC RBC Hgb Hct MCV RDW Plt Count Lymph % (Auto) Lymph # Seg Neutrophils % Seg Neuts % (Manual) Lymphocytes % (Manual) Seg Neutrophils # Seg Neutrophils # Man Lymphocytes # (Manual) PT INR POC ABG pH POC ABG pCO2 POC ABG pO2 Sodium Potassium Chloride Carbon Dioxide BUN Creatinine Glucose POC Glucose 152 H 159 H 169 H Calcium AST Total Creatine Kinase CK-MB (CK-2) Troponin T NT-Pro-B Natriuret Pep Total Protein Albumin HDL Cholesterol 01/20/19 01/21/19 01/21/19 23:29 05:30 05:34 WBC RBC Hgb Hct MCV RDW Plt Count Lymph % (Auto) Lymph # Seg Neutrophils % Seg Neuts % (Manual) Lymphocytes % (Manual) Seg Neutrophils # Seg Neutrophils # Man Lymphocytes # (Manual) PT INR POC ABG pH 7.616 H POC ABG pCO2 POC ABG pO2 71 L Sodium Potassium Chloride Carbon Dioxide BUN Creatinine Glucose POC Glucose 139 H 138 H Calcium AST Total Creatine Kinase CK-MB (CK-2) Troponin T NT-Pro-B Natriuret Pep Total Protein Albumin HDL Cholesterol 01/21/19 01/21/19 01/22/19 12:41 18:47 00:07 WBC RBC Hgb Hct MCV RDW Plt Count Lymph % (Auto) Lymph # Seg Neutrophils % Seg Neuts % (Manual) Lymphocytes % (Manual) Seg Neutrophils # Seg Neutrophils # Man Lymphocytes # (Manual) PT INR POC ABG pH POC ABG pCO2 POC ABG pO2 Sodium Potassium Chloride Carbon Dioxide BUN Creatinine Glucose POC Glucose 154 H 174 H 163 H Calcium AST Total Creatine Kinase CK-MB (CK-2) Troponin T NT-Pro-B Natriuret Pep Total Protein Albumin HDL Cholesterol 01/22/19 01/22/19 01/22/19 04:35 05:46 12:18 WBC RBC Hgb Hct MCV RDW Plt Count Lymph % (Auto) Lymph # Seg Neutrophils % Seg Neuts % (Manual) Lymphocytes % (Manual) Seg Neutrophils # Seg Neutrophils # Man Lymphocytes # (Manual) PT INR POC ABG pH 7.522 H POC ABG pCO2 POC ABG pO2 Sodium Potassium Chloride Carbon Dioxide BUN Creatinine Glucose POC Glucose 159 H 137 H Calcium AST Total Creatine Kinase CK-MB (CK-2) Troponin T NT-Pro-B Natriuret Pep Total Protein Albumin HDL Cholesterol 01/22/19 01/22/19 01/22/19 15:00 15:00 18:13 WBC RBC 2.92 L Hgb 8.4 L Hct 25.6 L MCV RDW Plt Count Lymph % (Auto) Lymph # Seg Neutrophils % Seg Neuts % (Manual) Lymphocytes % (Manual) Seg Neutrophils # Seg Neutrophils # Man Lymphocytes # (Manual) PT INR POC ABG pH POC ABG pCO2 POC ABG pO2 Sodium Potassium Chloride 97.0 L Carbon Dioxide BUN 37 H Creatinine Glucose 162 H POC Glucose 159 H Calcium 8.2 L AST Total Creatine Kinase CK-MB (CK-2) Troponin T NT-Pro-B Natriuret Pep Total Protein Albumin HDL Cholesterol 01/22/19 01/23/19 01/23/19 22:45 00:01 05:10 WBC RBC 2.92 L Hgb 8.5 L Hct 25.4 L MCV RDW Plt Count Lymph % (Auto) 6.3 L Lymph # 0.6 L Seg Neutrophils % 86.3 H Seg Neuts % (Manual) Lymphocytes % (Manual) Seg Neutrophils # 8.9 H Seg Neutrophils # Man Lymphocytes # (Manual) PT INR POC ABG pH POC ABG pCO2 POC ABG pO2 Sodium Potassium Chloride Carbon Dioxide BUN Creatinine Glucose POC Glucose 178 H 155 H Calcium AST Total Creatine Kinase CK-MB (CK-2) Troponin T NT-Pro-B Natriuret Pep Total Protein Albumin HDL Cholesterol 01/23/19 01/23/19 01/23/19 11:31 17:49 Unknown WBC RBC Hgb Hct MCV RDW Plt Count Lymph % (Auto) Lymph # Seg Neutrophils % Seg Neuts % (Manual) Lymphocytes % (Manual) Seg Neutrophils # Seg Neutrophils # Man Lymphocytes # (Manual) PT INR POC ABG pH POC ABG pCO2 POC ABG pO2 Sodium Potassium Chloride 95.4 L Carbon Dioxide BUN 37 H Creatinine Glucose 144 H POC Glucose 161 H 142 H Calcium AST 88 H Total Creatine Kinase CK-MB (CK-2) Troponin T NT-Pro-B Natriuret Pep Total Protein 6.0 L Albumin 2.9 L HDL Cholesterol 01/24/19 01/24/19 01/24/19 00:21 05:36 12:35 WBC RBC Hgb Hct MCV RDW Plt Count Lymph % (Auto) Lymph # Seg Neutrophils % Seg Neuts % (Manual) Lymphocytes % (Manual) Seg Neutrophils # Seg Neutrophils # Man Lymphocytes # (Manual) PT INR POC ABG pH POC ABG pCO2 POC ABG pO2 Sodium Potassium Chloride Carbon Dioxide BUN Creatinine Glucose POC Glucose 163 H 147 H 263 H Calcium AST Total Creatine Kinase CK-MB (CK-2) Troponin T NT-Pro-B Natriuret Pep Total Protein Albumin HDL Cholesterol 01/24/19 01/24/19 01/24/19 17:46 23:07 Unknown WBC RBC 2.90 L Hgb 8.3 L Hct 25.0 L MCV RDW Plt Count Lymph % (Auto) Lymph # Seg Neutrophils % Seg Neuts % (Manual) Lymphocytes % (Manual) Seg Neutrophils # Seg Neutrophils # Man Lymphocytes # (Manual) PT INR POC ABG pH POC ABG pCO2 POC ABG pO2 Sodium Potassium Chloride Carbon Dioxide BUN Creatinine Glucose POC Glucose 161 H 167 H Calcium AST Total Creatine Kinase CK-MB (CK-2) Troponin T NT-Pro-B Natriuret Pep Total Protein Albumin HDL Cholesterol 01/24/19 01/25/19 01/25/19 Unknown 05:15 05:15 WBC RBC 2.90 L Hgb 8.4 L Hct 25.2 L MCV RDW Plt Count Lymph % (Auto) Lymph # Seg Neutrophils % Seg Neuts % (Manual) Lymphocytes % (Manual) Seg Neutrophils # Seg Neutrophils # Man Lymphocytes # (Manual) PT INR POC ABG pH POC ABG pCO2 POC ABG pO2 Sodium 134 L 135 L Potassium Chloride 94.4 L 94.0 L Carbon Dioxide BUN 35 H 35 H Creatinine Glucose 151 H 128 H POC Glucose Calcium AST Total Creatine Kinase CK-MB (CK-2) Troponin T NT-Pro-B Natriuret Pep Total Protein Albumin HDL Cholesterol 01/25/19 01/25/19 01/25/19 05:15 05:35 11:09 WBC RBC Hgb Hct MCV RDW Plt Count Lymph % (Auto) Lymph # Seg Neutrophils % Seg Neuts % (Manual) Lymphocytes % (Manual) Seg Neutrophils # Seg Neutrophils # Man Lymphocytes # (Manual) PT 18.8 H INR 1.47 H POC ABG pH POC ABG pCO2 POC ABG pO2 Sodium Potassium Chloride Carbon Dioxide BUN Creatinine Glucose POC Glucose 126 H 149 H Calcium AST Total Creatine Kinase CK-MB (CK-2) Troponin T NT-Pro-B Natriuret Pep Total Protein Albumin HDL Cholesterol 01/25/19 01/25/19 01/26/19 17:24 23:41 00:09 WBC RBC Hgb Hct MCV RDW Plt Count Lymph % (Auto) Lymph # Seg Neutrophils % Seg Neuts % (Manual) Lymphocytes % (Manual) Seg Neutrophils # Seg Neutrophils # Man Lymphocytes # (Manual) PT INR POC ABG pH POC ABG pCO2 POC ABG pO2 Sodium Potassium Chloride Carbon Dioxide BUN Creatinine Glucose POC Glucose 140 H 142 H 156 H Calcium AST Total Creatine Kinase CK-MB (CK-2) Troponin T NT-Pro-B Natriuret Pep Total Protein Albumin HDL Cholesterol 01/26/19 01/26/19 01/26/19 05:05 06:35 06:35 WBC RBC 2.83 L Hgb 8.1 L Hct 24.4 L MCV RDW Plt Count Lymph % (Auto) Lymph # Seg Neutrophils % Seg Neuts % (Manual) Lymphocytes % (Manual) Seg Neutrophils # Seg Neutrophils # Man Lymphocytes # (Manual) PT INR POC ABG pH POC ABG pCO2 POC ABG pO2 Sodium Potassium Chloride 96.9 L Carbon Dioxide BUN 29 H Creatinine Glucose 141 H POC Glucose 159 H Calcium 8.3 L AST Total Creatine Kinase CK-MB (CK-2) Troponin T NT-Pro-B Natriuret Pep Total Protein Albumin HDL Cholesterol 01/26/19 01/26/19 01/27/19 13:16 19:10 00:08 WBC RBC Hgb Hct MCV RDW Plt Count Lymph % (Auto) Lymph # Seg Neutrophils % Seg Neuts % (Manual) Lymphocytes % (Manual) Seg Neutrophils # Seg Neutrophils # Man Lymphocytes # (Manual) PT INR POC ABG pH POC ABG pCO2 POC ABG pO2 Sodium Potassium Chloride Carbon Dioxide BUN Creatinine Glucose POC Glucose 159 H 146 H 140 H Calcium AST Total Creatine Kinase CK-MB (CK-2) Troponin T NT-Pro-B Natriuret Pep Total Protein Albumin HDL Cholesterol 01/27/19 01/27/19 01/27/19 03:30 03:30 06:23 WBC RBC 2.85 L Hgb 8.3 L Hct 24.8 L MCV RDW Plt Count Lymph % (Auto) Lymph # Seg Neutrophils % Seg Neuts % (Manual) Lymphocytes % (Manual) Seg Neutrophils # Seg Neutrophils # Man Lymphocytes # (Manual) PT INR POC ABG pH POC ABG pCO2 POC ABG pO2 Sodium 136 L Potassium Chloride 97.1 L Carbon Dioxide BUN 26 H Creatinine Glucose 129 H POC Glucose 154 H Calcium AST Total Creatine Kinase CK-MB (CK-2) Troponin T NT-Pro-B Natriuret Pep Total Protein Albumin HDL Cholesterol 01/27/19 01/27/19 01/27/19 12:47 17:43 23:31 WBC RBC Hgb Hct MCV RDW Plt Count Lymph % (Auto) Lymph # Seg Neutrophils % Seg Neuts % (Manual) Lymphocytes % (Manual) Seg Neutrophils # Seg Neutrophils # Man Lymphocytes # (Manual) PT INR POC ABG pH POC ABG pCO2 POC ABG pO2 Sodium Potassium Chloride Carbon Dioxide BUN Creatinine Glucose POC Glucose 159 H 180 H 164 H Calcium AST Total Creatine Kinase CK-MB (CK-2) Troponin T NT-Pro-B Natriuret Pep Total Protein Albumin HDL Cholesterol 01/28/19 01/28/19 01/28/19 04:35 12:01 12:01 WBC RBC 2.67 L Hgb 7.9 L Hct 22.9 L MCV RDW Plt Count Lymph % (Auto) Lymph # Seg Neutrophils % Seg Neuts % (Manual) Lymphocytes % (Manual) Seg Neutrophils # Seg Neutrophils # Man Lymphocytes # (Manual) PT INR POC ABG pH POC ABG pCO2 POC ABG pO2 Sodium 136 L Potassium 3.5 L Chloride Carbon Dioxide BUN 18 H Creatinine Glucose 143 H POC Glucose 139 H Calcium 8.0 L AST Total Creatine Kinase CK-MB (CK-2) Troponin T NT-Pro-B Natriuret Pep Total Protein Albumin HDL Cholesterol 05/12/19 05/12/19 05/12/19 12:04 16:59 17:11 WBC RBC Hgb Hct MCV RDW Plt Count Lymph % (Auto) Lymph # Seg Neutrophils % Seg Neuts % (Manual) Lymphocytes % (Manual) Seg Neutrophils # Seg Neutrophils # Man Lymphocytes # (Manual) PT INR POC ABG pH 7.488 H POC ABG pCO2 34.1 L POC ABG pO2 Sodium Potassium Chloride Carbon Dioxide BUN Creatinine Glucose POC Glucose 143 H 163 H Calcium AST Total Creatine Kinase CK-MB (CK-2) Troponin T NT-Pro-B Natriuret Pep Total Protein Albumin HDL Cholesterol 01/29/19 01/29/19 01/29/19 00:10 05:47 12:08 WBC RBC Hgb Hct MCV RDW Plt Count Lymph % (Auto) Lymph # Seg Neutrophils % Seg Neuts % (Manual) Lymphocytes % (Manual) Seg Neutrophils # Seg Neutrophils # Man Lymphocytes # (Manual) PT INR POC ABG pH POC ABG pCO2 POC ABG pO2 Sodium Potassium Chloride Carbon Dioxide BUN Creatinine Glucose POC Glucose 171 H 187 H 137 H Calcium AST Total Creatine Kinase CK-MB (CK-2) Troponin T NT-Pro-B Natriuret Pep Total Protein Albumin HDL Cholesterol 01/29/19 01/29/19 01/29/19 16:48 16:54 17:47 WBC RBC Hgb Hct MCV RDW Plt Count Lymph % (Auto) Lymph # Seg Neutrophils % Seg Neuts % (Manual) Lymphocytes % (Manual) Seg Neutrophils # Seg Neutrophils # Man Lymphocytes # (Manual) PT INR POC ABG pH 7.486 H 7.512 H POC ABG pCO2 32.8 L 32.7 L POC ABG pO2 108 H Sodium Potassium Chloride Carbon Dioxide BUN Creatinine Glucose POC Glucose 156 H Calcium AST Total Creatine Kinase CK-MB (CK-2) Troponin T NT-Pro-B Natriuret Pep Total Protein Albumin HDL Cholesterol 01/29/19 01/30/19 01/30/19 23:48 06:45 07:18 WBC RBC 2.94 L Hgb 8.6 L Hct 25.7 L MCV RDW Plt Count Lymph % (Auto) Lymph # Seg Neutrophils % Seg Neuts % (Manual) Lymphocytes % (Manual) Seg Neutrophils # Seg Neutrophils # Man Lymphocytes # (Manual) PT INR POC ABG pH POC ABG pCO2 POC ABG pO2 Sodium 135 L Potassium Chloride Carbon Dioxide BUN Creatinine Glucose 141 H POC Glucose 185 H Calcium 8.3 L AST Total Creatine Kinase CK-MB (CK-2) Troponin T NT-Pro-B Natriuret Pep Total Protein Albumin HDL Cholesterol 01/30/19 01/30/19 01/30/19 11:17 16:47 18:16 WBC RBC Hgb Hct MCV RDW Plt Count Lymph % (Auto) Lymph # Seg Neutrophils % Seg Neuts % (Manual) Lymphocytes % (Manual) Seg Neutrophils # Seg Neutrophils # Man Lymphocytes # (Manual) PT INR POC ABG pH 7.508 H POC ABG pCO2 31.5 L POC ABG pO2 135 H Sodium Potassium Chloride Carbon Dioxide BUN Creatinine Glucose POC Glucose 170 H 108 H Calcium AST Total Creatine Kinase CK-MB (CK-2) Troponin T NT-Pro-B Natriuret Pep Total Protein Albumin HDL Cholesterol 01/30/19 01/31/19 01/31/19 23:38 05:45 12:04 WBC RBC Hgb Hct MCV RDW Plt Count Lymph % (Auto) Lymph # Seg Neutrophils % Seg Neuts % (Manual) Lymphocytes % (Manual) Seg Neutrophils # Seg Neutrophils # Man Lymphocytes # (Manual) PT INR POC ABG pH POC ABG pCO2 POC ABG pO2 Sodium Potassium Chloride Carbon Dioxide BUN Creatinine Glucose POC Glucose 146 H 121 H 152 H Calcium AST Total Creatine Kinase CK-MB (CK-2) Troponin T NT-Pro-B Natriuret Pep Total Protein Albumin HDL Cholesterol 01/31/19 01/31/19 02/01/19 17:44 23:58 05:46 WBC RBC Hgb Hct MCV RDW Plt Count Lymph % (Auto) Lymph # Seg Neutrophils % Seg Neuts % (Manual) Lymphocytes % (Manual) Seg Neutrophils # Seg Neutrophils # Man Lymphocytes # (Manual) PT INR POC ABG pH POC ABG pCO2 POC ABG pO2 Sodium Potassium Chloride Carbon Dioxide BUN Creatinine Glucose POC Glucose 153 H 183 H 116 H Calcium AST Total Creatine Kinase CK-MB (CK-2) Troponin T NT-Pro-B Natriuret Pep Total Protein Albumin HDL Cholesterol 02/01/19 02/01/19 11:10 12:18 WBC RBC Hgb Hct MCV RDW Plt Count Lymph % (Auto) Lymph # Seg Neutrophils % Seg Neuts % (Manual) Lymphocytes % (Manual) Seg Neutrophils # Seg Neutrophils # Man Lymphocytes # (Manual) PT INR POC ABG pH POC ABG pCO2 POC ABG pO2 Sodium 133 L Potassium 3.3 L Chloride 96.1 L Carbon Dioxide BUN Creatinine Glucose 145 H POC Glucose 175 H Calcium 8.3 L AST Total Creatine Kinase CK-MB (CK-2) Troponin T NT-Pro-B Natriuret Pep Total Protein Albumin HDL Cholesterol Allied health notes reviewed: nursing
[2019-02-01] MEDS ORDERED: PANCREAZE DR 10,500 UNIT FEEDTUBE PRN (15:35)
[2019-02-01] MEDS ORDERED: SIMPLE SYRUP FEEDTUBE PRN ×2 (15:35)
[2019-02-01] MEDS ORDERED: SODIUM BICARBONATE FEEDTUBE PRN (15:35)
[2019-02-01] MEDS ORDERED: POTASSIUM CHLORIDE FEEDTUBE ONE (19:45)
[2019-02-01] MEDS ORDERED: CLINIMIX 4.25%-5% SOLUTION 2,000 ML IV SCH (20:00)
--- NOTE | 2019-02-01 21:37 | XRay Report ---
PROCEDURE: XR ABDOMEN 1V AP TECHNIQUE: Abdominal radiograph, single view. HISTORY: Ileus COMPARISONS: January 31, 2019 . FINDINGS: Bowel gas pattern: There are dilated air-filled loops of large bowel suggesting generalized ileus. M echanical obstruction considered less likely. There is no bowel wall thickening or free air. . Masses or calcifications: None . Bony structures: No significant abnormality . Other: There is NG tube in the stomach. . IMPRESSION: There are dilated air-filled loops of large bowel suggesting generalized ileus. Mechanical obstructio n considered less likely. There is no bowel wall thickening or free air. . There is NG tube in the stomach. .. This document is electronically signed by Julito Hilliard MD., Feb 01 2019 09:35:57 PM ET
[2019-02-02] MEDS: DUONEB *Not for PRN Use IH SCH ×4 (03:18→21:11)
[2019-02-02] MEDS: LASIX PO SCH ×2 (05:06→18:42)
[2019-02-02] MEDS: REGLAN IV SCH ×3 (05:07→21:25)
[2019-02-02] MEDS: HumaLOG SUB-Q SCH ×4 (05:34→18:42)
[2019-02-02 07:17] LABS: BUN/Creatinine Ratio 26; Blood Urea Nitrogen 18 mg/dL (7-17); Calcium 8.3 mg/dL (8.4-10.2); Hemolysis Index 2
[2019-02-02] MEDS ORDERED: MAGNESIUM SULFATE 4GM/100ML 4 GM/100 ML BAG IV ONE (09:00)
[2019-02-02] MEDS: KEPPRA PO SCH ×2 (09:25→21:23)
[2019-02-02] MEDS: COREG PO SCH ×2 (09:26→21:24)
[2019-02-02] MEDS: BABY ASPIRIN PO SCH (09:26)
[2019-02-02] MEDS: PREVACID SOLUTAB FEEDTUBE SCH ×2 (09:26→21:24)
[2019-02-02] MEDS: NORVASC PO SCH (09:26)
[2019-02-02] MEDS: KENALOG TP SCH ×2 (09:27→21:28)
[2019-02-02] MEDS: LOVENOX SUB-Q SCH (09:27)
[2019-02-02] MEDS: SODIUM CHLORIDE FLUSH SYRINGE 10 ML IV SCH ×2 (09:27→21:25)
--- NOTE | 2019-02-02 12:30 | Progress Note ---
Assessment and Plan Assessment and plan: Cardiopulmonary arrest. Patient with out of hospital PEA arrest and ROSC. Cardiology following. Acute hypoxemic hypercapnic respiratory failure. Patient previously on mechanical ventilation but has been weaned. Continue ATP trials. Continue trach care. Partial SBO versus ileus. Serial KUB Aspiration pneumonia. Continue IV antibiotics per ID. Aspiration precautions. Sepsis. Tracheal aspirate and blood cultures are negative to date. ID following. Anoxic encephalopathy. EEG 01/17/19 reported as abnormal with minimal brain activity. No epileptiform discharges. Neurology following Oropharyngeal dysphagia. IR consult. We'll obtain a CT of the abdomen and pelvis to determine if patient's anatomy is suitable for percutaneous placement of gastrostomy tube. Acute renal failure. Etiology likely secondary to acute kidney injury from sepsis. Creatinine is stable. Continue to monitor. Pulmonary hypertension. Consider CT of the chest when medically stable. Acute systolic heart failure. Patient with moderate global hypokinesis of left ventricle EF 35-40% and left ventricular systolic function moderately decreased. CAD s/p stent placement She goes to records tech at [facility] [place] The high probability of a clinically significant, sudden or life threatening deterioration of the [cardiac and respiratory] system(s) required my full and direct attention, intervention and personal management. The aggregate critical care time was [31] minutes. This time is in addition to time spent performing reported procedures but includes the following: [x] Data Review and interpretation [x] Patient assessment and monitoring of vital signs [x] Documentation [x] Medication orders and management History Interval history: Patient is 73 yo with hypertension, CAD s/p stent, COPD/emphesema, not on home Oxygen. She was Brought in by paramedics 01/15/19 after cardiorespiratory arrest at home. History obtained from daughter and granddaughter at bedside. Patient called a family member that she had more shortness of breath . Family member lives in same Apartment complex, same floor, came to her, found her on floor not breathing, started CPR, called paramedics. She was in jhon PEA, given 2 rounds Epinephrine, CPR, intubated , resuscitated, and brought to ED. Patient was seen and evaluated in ED and admitted to ICU. She was evaluated by lmonology/Planer Offbearer. She had seizures later same day, was started on keppra. Shwe had CARMELINA on presentation, resolved in few days. She remained comatose, acute respiratory failure vent dependent. Trach and PEG was recommended. Tracheostomy done 01/25. PEG not done yet because of abdominal distension. She has poor prognosis. may need LTAC Hospitalist Physical - Constitutional Vitals: Temp Pulse Resp BP Pulse Ox 98.6 F 84 25 H 106/62 99 02/02/19 08:00 02/02/19 09:26 02/02/19 08:00 02/02/19 09:26 02/02/19 08:00 General appearance: Present: other (trached, nonresponsive at time of examination) - EENT Eyes: Present: PERRL, EOM intact ENT: hearing intact, clear oral mucosa, dentition normal - Neck Neck: Present: supple, normal ROM - Respiratory Respiratory effort: normal Respiratory: bilateral: diminished - Cardiovascular Rhythm: regular Heart Sounds: Present: S1 & S2. Absent: gallop, rub - Extremities Extremities: no ischemia, No edema, Full ROM - Abdominal General gastrointestinal: soft, non-tender, non-distended, normal bowel sounds - Integumentary Integumentary: Present: clear, warm, dry - Neurologic Neurologic: CNII-XII intact, moves all extremities Results - Labs CBC & Chem 7: 01/30/19 06:45 02/02/19 06:00 Labs: Laboratory Last Values WBC 8.2 K/mm3 (4.5-11.0) 01/30/19 06:45 RBC 2.94 M/mm3 (3.65-5.03) L 01/30/19 06:45 Hgb 8.6 gm/dl (10.1-14.3) L 01/30/19 06:45 Hct 25.7 % (30.3-42.9) L 01/30/19 06:45 MCV 87 fl (79-97) 01/30/19 06:45 MCH 29 pg (28-32) 01/30/19 06:45 MCHC 33 % (30-34) 01/30/19 06:45 RDW 14.6 % (13.2-15.2) 01/30/19 06:45 Plt Count 370 K/mm3 (140-440) 01/30/19 06:45 Lymph % (Auto) 6.3 % (13.4-35.0) L 01/23/19 00:01 [place] % (Auto) 6.6 % (0.0-7.3) 01/23/19 00:01 Eos % (Auto) 0.5 % (0.0-4.3) 01/23/19 00:01 Baso % (Auto) 0.3 % (0.0-1.8) 01/23/19 00:01 Lymph # 0.6 K/mm3 (1.2-5.4) L 01/23/19 00:01 [place] # 0.7 K/mm3 (0.0-0.8) 01/23/19 00:01 Eos # 0.1 K/mm3 (0.0-0.4) 01/23/19 00:01 Baso # 0.0 K/mm3 (0.0-0.1) 01/23/19 00:01 Add Manual Diff Complete 01/16/19 04:16 Total Counted 100 01/16/19 04:16 Seg Neutrophils % 86.3 % (40.0-70.0) H 01/23/19 00:01 Seg Neuts % (Manual) 74.0 % (40.0-70.0) H 01/16/19 04:16 22.0 % 01/16/19 04:16 2.0 % (13.4-35.0) L 01/16/19 04:16 Reactive Lymphs % (Man) 0 % 01/16/19 04:16 2.0 % (0.0-7.3) 01/16/19 04:16 0 % (0.0-4.3) 01/16/19 04:16 0 % (0.0-1.8) 01/16/19 04:16 0 % 01/16/19 04:16 0 % 01/16/19 04:16 0 % 01/16/19 04:16 0 % 01/16/19 04:16 Nucleated RBC % Not Reportable 01/16/19 04:16 Seg Neutrophils # 8.9 K/mm3 (1.8-7.7) H 01/23/19 00:01 Seg Neutrophils # Man 8.4 K/mm3 (1.8-7.7) H 01/16/19 04:16 Band Neutrophils # 2.5 K/mm3 01/16/19 04:16 0.2 K/mm3 (1.2-5.4) L 01/16/19 04:16 Abs React Lymphs (Man) 0.0 K/mm3 01/16/19 04:16 0.2 K/mm3 (0.0-0.8) 01/16/19 04:16 0.0 K/mm3 (0.0-0.4) 01/16/19 04:16 0.0 K/mm3 (0.0-0.1) 01/16/19 04:16 0.0 K/mm3 01/16/19 04:16 0.0 K/mm3 01/16/19 04:16 0.0 K/mm3 01/16/19 04:16 Blast Cells # 0.0 K/mm3 01/16/19 04:16 WBC Morphology Not Reportable 01/16/19 04:16 Hypersegmented Neuts Not Reportable 01/16/19 04:16 Hyposegmented Neuts Not Reportable 01/16/19 04:16 Hypogranular Neuts Not Reportable 01/16/19 04:16 Not Reportable 01/16/19 04:16 Not Reportable 01/16/19 04:16 Not Reportable 01/16/19 04:16 Not Reportable 01/16/19 04:16 Not Reportable 01/16/19 04:16 Not Reportable 01/16/19 04:16 Consistent w auto 01/16/19 04:16 Not Reportable 01/16/19 04:16 Plt Clumps, EDTA Not Reportable 01/16/19 04:16 Not Reportable 01/16/19 04:16 Not Reportable 01/16/19 04:16 Not Reportable 01/16/19 04:16 Plt Morphology Comment Not Reportable 01/16/19 04:16 RBC Morphology Normal 01/16/19 04:16 Dimorphic RBCs Not Reportable 01/16/19 04:16 Not Reportable 01/16/19 04:16 Not Reportable 01/16/19 04:16 Not Reportable 01/16/19 04:16 Not Reportable 01/16/19 04:16 Not Reportable 01/16/19 04:16 Not Reportable 01/16/19 04:16 Not Reportable 01/16/19 04:16 Not Reportable 01/16/19 04:16 Not Reportable 01/16/19 04:16 Not Reportable 01/16/19 04:16 Not Reportable 01/16/19 04:16 Not Reportable 01/16/19 04:16 Not Reportable 01/16/19 04:16 Not Reportable 01/16/19 04:16 Not Reportable 01/16/19 04:16 Not Reportable 01/16/19 04:16 Not Reportable 01/16/19 04:16 Not Reportable 01/16/19 04:16 Not Reportable 01/16/19 04:16 Acanthocytes (Spur) Not Reportable 01/16/19 04:16 Rouleaux Not Reportable 01/16/19 04:16 Not Reportable 01/16/19 04:16 Not Reportable 01/16/19 04:16 Not Reportable 01/16/19 04:16 Not Reportable 01/16/19 04:16 Hem Pathologist Commnt No 01/16/19 04:16 PT 18.8 Sec. (12.2-14.9) H 01/25/19 05:15 INR 1.47 (0.87-1.13) H 01/25/19 05:15 APTT 36.0 Sec. (24.2-36.6) 01/15/19 07:50 Heparin Anti-Xa, Unfract Negative (Negative) 01/19/19 Unknown POC ABG pH 7.508 (7.35-7.45) H 01/30/19 16:47 POC ABG pCO2 31.5 (35-45) L 01/30/19 16:47 POC ABG pO2 135 (80-105) H 01/30/19 16:47 POC ABG HCO3 25.0 (22-26 mml/L) 01/30/19 16:47 POC ABG Total CO2 26 (23-27mmol/L) 01/30/19 16:47 POC ABG O2 Sat 99 01/30/19 16:47 POC ABG Base Excess 2 ((-2) - (+3)mmol/L) 01/30/19 16:47 28 % 01/30/19 16:47 Sodium 135 mmol/L (137-145) L 02/02/19 06:00 Potassium 4.2 mmol/L (3.6-5.0) D 02/02/19 06:00 Chloride 98.2 mmol/L (98-107) 02/02/19 06:00 Carbon Dioxide 25 mmol/L (22-30) 02/02/19 06:00 16 mmol/L 02/02/19 06:00 BUN 18 mg/dL (7-17) H 02/02/19 06:00 0.7 mg/dL (0.7-1.2) 02/02/19 06:00 Estimated GFR > 60 ml/min 02/02/19 06:00 26 % 02/02/19 06:00 Glucose 121 mg/dL (65-100) H 02/02/19 06:00 POC Glucose 140 (70-105) H 02/02/19 05:16 6.0 % (4-6) 01/15/19 11:53 Calcium 8.3 mg/dL (8.4-10.2) L 02/02/19 06:00 Phosphorus 3.10 mg/dL (2.5-4.5) 02/02/19 06:00 Magnesium 1.60 mg/dL (1.7-2.3) L 02/02/19 06:00 0.30 mg/dL (0.1-1.2) 01/23/19 Unknown AST 88 units/L (5-40) H 01/23/19 Unknown ALT 31 units/L (7-56) 01/23/19 Unknown 48 units/L (35-129) 01/23/19 Unknown 1430 units/L (30-135) H 01/15/19 17:52 CK-MB (CK-2) 13.5 ng/mL (0.0-4.0) H 01/15/19 17:52 CK-MB (CK-2) Rel Index 0.9 (0-4) 01/15/19 17:52 0.036 ng/mL (0.00-0.029) H D 01/15/19 17:52 NT-Pro-B Natriuret Pep 5346 pg/mL (0-900) H 01/15/19 07:50 6.0 g/dL (6.3-8.2) L 01/23/19 Unknown 2.9 g/dL (3.9-5) L 01/23/19 Unknown 0.9 % 01/23/19 Unknown Triglycerides 75 mg/dL (2-149) 01/15/19 17:52 Cholesterol 149 mg/dL (50-199) 01/15/19 17:52 84 mg/dL (50-130) 01/15/19 17:52 65 mg/dL (40-59) H 01/15/19 17:52 2.29 % 01/15/19 17:52 See scanned report 01/19/19 Unknown Yellow (Yellow) 01/21/19 16:10 Clear (Clear) 01/21/19 16:10 6.0 (5.0-7.0) 01/21/19 16:10 Ur Specific [place] 1.015 (1.003-1.030) 01/21/19 16:10 <15 mg/dl mg/dL (Negative) 01/21/19 16:10 Neg mg/dL (Negative) 01/21/19 16:10 Neg mg/dL (Negative) 01/21/19 16:10 Neg (Negative) 01/21/19 16:10 Neg (Negative) 01/21/19 16:10 Neg (Negative) 01/21/19 16:10 2.0 mg/dL (<2.0) 01/21/19 16:10 Ur Leukocyte Esterase Neg (Negative) 01/21/19 16:10 1.0 /HPF (0.0-6.0) 01/21/19 16:10 5.0 /HPF (0.0-6.0) 01/21/19 16:10 Presumptive negative 01/15/19 16:30 Presumptive negative 01/15/19 16:30 Ur Barbiturates Screen Presumptive negative 01/15/19 16:30 Ur Phencyclidine Scrn Presumptive negative 01/15/19 16:30 Ur Amphetamines Screen Presumptive negative 01/15/19 16:30 U Benzodiazepines Scrn Presumptive negative 01/15/19 16:30 Presumptive negative 01/15/19 16:30 U Marijuana (THC) Screen Presumptive negative 01/15/19 16:30 Disclamer 01/15/19 16:30 Heparin-induced Plt Ab Negative (Negative) 01/19/19 Unknown UF Heparin High Dose 3 % Release 01/19/19 Unknown JOSEFA UFH Low Dose 0.1 4 % Release 01/19/19 Unknown OJSEFA UFH Low Dose 0.5 5 % Release 01/19/19 Unknown C. difficile Tox (PCR) Negative (Negative) 01/16/19 00:00 Active Medications - Current Medications Current Medications: Generic Name Dose Route Start Last Admin Trade Name Freq PRN Reason Stop Dose Admin Acetaminophen 650 mg 01/16/19 09:37 01/20/19 00:24 Tylenol PO 650 mg Q4H PRN Administration Fever >101 Albuterol/Ipratropium 1 ampul 01/15/19 14:00 02/02/19 03:18 Duoneb *Not For Prn Use* IH 1 ampul Q6HRT DEON Administration Amlodipine Besylate 10 mg 01/24/19 12:00 02/02/19 09:26 Norvasc PO 10 mg DAILY DEON Administration Lipase/Protease/Amylase 1 each 02/01/19 15:35 Pancreaze 10,500 Unit FEEDTUBE PRN PRN For Clogged Feeding Tube Aspirin 81 mg 01/16/19 10:00 02/02/19 09:26 Baby Aspirin PO 81 mg QDAY DEON Administration Atorvastatin Calcium 20 mg 01/16/19 22:00 02/01/19 21:40 Lipitor PO 20 mg QHS DEON Administration Carvedilol 12.5 mg 01/24/19 22:00 02/02/19 09:26 Coreg PO 12.5 mg BID DEON Administration Enoxaparin Sodium 40 mg 01/30/19 10:00 02/02/19 09:27 Lovenox SUB-Q 40 mg QDAY@1000 DEON Administration Furosemide 20 mg 01/19/19 18:00 02/02/19 05:06 Lasix PO 20 mg 0600,1800 DEON Administration Amino Acids 2,000 mls @ 75 mls/hr 02/01/19 20:00 02/01/19 21:48 Clinimix 4.25%-5% Solution IV 02/02/19 19:59 75 mls/hr ONCE DEON Administration Magnesium Sulfate 4 gm in 100 mls @ 25 mls/hr 02/02/19 09:00 02/02/19 09:26 Magnesium Sulfate 4gm/100ml IV 02/02/19 12:59 25 mls/hr ONCE ONE Administration Insulin Human Lispro 0 unit 01/22/19 14:00 02/02/19 05:34 Humalog SUB-Q Not Given Q6HR DEON Protocol Lansoprazole 30 mg 01/30/19 10:00 02/02/19 09:26 Prevacid Solutab FEEDTUBE 30 mg BID DEON Administration Levetiracetam 750 mg 01/18/19 10:00 02/02/19 09:25 Keppra PO 750 mg BID DEON Administration Metoclopramide HCl 10 mg 02/01/19 14:00 02/02/19 05:07 Reglan IV 10 mg Q8HR DEON Administration Simple Syrup 15 ml 02/01/19 15:35 Simple Syrup FEEDTUBE PRN PRN Hypoglycemia Simple Syrup 30 ml 02/01/19 15:35 Simple Syrup FEEDTUBE PRN PRN Hypoglycemia Sodium Bicarbonate 325 mg 02/01/19 15:35 Sodium Bicarbonate FEEDTUBE PRN PRN For Clogged Feeding Tube Sodium Chloride 10 ml 01/15/19 22:00 02/02/19 09:27 Sodium Chloride Flush Syringe 10 Ml IV 10 ml BID DEON Administration Sodium Chloride 10 ml 01/15/19 10:34 01/29/19 12:43 Sodium Chloride Flush Syringe 10 Ml IV 10 ml PRN PRN Administration LINE FLUSH Triamcinolone Acetonide 1 applic 01/24/19 14:00 02/02/19 09:27 Kenalog TP 1 applic BID DEON Administration Nutrition/Malnutrition Assess - Dietary Evaluation Nutrition/Malnutrition Findings: Nutrition Notes Start: 01/15/19 14:28 Freq: Status: Active Protocol: Document 02/01/19 15:20 RM (Rec: 02/01/19 15:34 RM [id number]) Nutrition Notes Initial or Follow up Reassessment Current Diagnosis Acute Kidney Injury,Heart Failure,Respiratory Failure Other Pertinent Diagnosis Ileus, dysphagia, s/p cardiorespiratory arrest (at home) Current Diet NPO Labs/Tests Na 135 (trending down) Pertinent Medications D5 1/2NS + 20mEq KCl at 50ml/ hr, Reglan, Lasix Height 5 ft 4 in Weight 48.5 kg [place] Body Weight (kg) 54.54 BMI 18.3 Subjective/Other Information Pt has ileus. During rounds MD ordered restart of trickle feed of TF and initiation of TPN. MD ordered Clinimix for today. Burn Absent Trauma Absent #1 Nutrition Diagnosis Inadequate oral intake Diagnosis Progress(for reassessment Continues documentation) Is patient on ventilator? Yes Is Patient Ambulatory and/or Out of Bed No REE-([place]-St. Jeor-confined to bed) 1164.624 Kcal/Kg value to use for calculation 35 Approximate Energy Requirements Using 1698 kcal/Kg Calculation Used for Recommendations Kcal/kg Additional Notes Pro needs 1.2-2g/k-92g/ day Fluid needs 1ml/kcal Nutrition Intervention Nutrition Support: Clinimix at 75 ml/hr. Glucerna 1.2 at 5 ml/hr. Water flush of 50 ml q 4 hrs. Kcal 602 Protein (gm) 75 Carbohydrates (gm) 90 Goal #1 Meet at least 80% of calorie and protein needs via TF and TPN. Goal #2 Wt maintenance and/or gain Follow-Up By: 02/02/19 Additional Comments Follow for labs in am: BMP, Mag, Phos
--- NOTE | 2019-02-02 13:16 | Progress Note ---
Assessment and Plan s/p Cardiopulmonary arrest, out of hospital, PEA with ROSC Acute hypoxic-hypercapnic respiratory failure on MVS Acute encephalopathy, metabolic Acute metabolic acidosis Acute renal injury Seizure activity Right lower lobe infiltrate, probably aspiration Pyrexia with leukocytosis Pulmonary HTN RVSP 60 Systolic heart failure EF 35-40% Thrombocytopenia - get CXR re: trach position / pneumonia evaluation - continue to advance tube feeds as tolerated (Ileus improving on KUB) - continue T-piece trials as tolerated - continue routine trach care per RT - continue provigil - HIT assay negative - continue Arixtra for now - follow clinically off AB's - neurology evaluation ongoing - Gentle diuresis with oral lasix (now 20mg bid) - continue GI & VTE prophylaxis - continue to wean supplemental oxygen to keep O2 sats 88-90% - prn ABGs/CXR going forwards - Continue cardioprotective measures - Replete electrolytes as indicated - Continue bronchodilators with pulmonary hygiene per RT - Estes catheter removed - Monitor renal indices closely - Avoid nephrotoxic agents, adjust all medications for CrCL - Strict intake and output monitoring - Tube feedings as tolerated - continue accuchecks with glycemic control. Target glucose of 140-180 mg/dL - Maintenance of sleep -wake cycle - Mobility as tolerated by hemodynamics - Influenza and pneumonia vaccination per protocol ...... transfer to telemetry floor ok ..care plan discussed at length with RN/RT at the bedside ..discussed in ICU-IDT rounds CODE STATUS: FULL CODE Subjective Date of service: 02/02/19 Principal diagnosis: OOH cardiac arrest; Acute hypoxemic-hypercapnic Resp failure; PNA Interval history: Patient is seen today for: OOH cardiopulmonary arrest with ROSC; Acute hypoxemic-hypercapnic respiratory failure on MVS; acute encephalopathy; aspiration pneumonia Seen and examined at bedside; 24hour events reviewed; nursing and respiratory care staff consulted; no adverse overnight events reported to me; remains on T- piece RTC; AMS is persistent; no emesis or overt aspiration Objective Vital Signs - 12hr 02/02/19 02/02/19 02/02/19 01:42 02:00 03:00 Temperature Pulse Rate 78 78 Pulse Rate [ From Monitor] Pulse Rate [ Left Dorsalis Pedis] Pulse Rate [ 78 Throughout] Respiratory 20 26 H Rate Respiratory 24 Rate [ Throughout] Blood Pressure 107/64 107/60 O2 Sat by Pulse 98 97 Oximetry O2 Sat by Pulse Oximetry [ Assessment] 02/02/19 02/02/19 02/02/19 03:19 03:26 04:00 Temperature 98.9 F Pulse Rate 83 Pulse Rate [ 72 From Monitor] Pulse Rate [ 72 Left Dorsalis Pedis] Pulse Rate [ 78 Throughout] Respiratory 26 H Rate Respiratory 22 Rate [ Throughout] Blood Pressure 108/55 O2 Sat by Pulse 100 Oximetry O2 Sat by Pulse 97 Oximetry [ Assessment] 02/02/19 02/02/19 02/02/19 05:00 06:00 07:00 Temperature Pulse Rate 80 84 82 Pulse Rate [ From Monitor] Pulse Rate [ Left Dorsalis Pedis] Pulse Rate [ Throughout] Respiratory 19 20 22 Rate Respiratory Rate [ Throughout] Blood Pressure 101/53 95/62 101/59 O2 Sat by Pulse Oximetry O2 Sat by Pulse Oximetry [ Assessment] 02/02/19 02/02/19 02/02/19 07:26 07:27 07:29 Temperature Pulse Rate Pulse Rate [ From Monitor] Pulse Rate [ Left Dorsalis Pedis] Pulse Rate [ 83 83 Throughout] Respiratory Rate Respiratory 21 18 Rate [ Throughout] Blood Pressure O2 Sat by Pulse 100 Oximetry O2 Sat by Pulse 100 Oximetry [ Assessment] 02/02/19 02/02/19 08:00 09:26 Temperature 98.6 F Pulse Rate 84 84 Pulse Rate [ 83 From Monitor] Pulse Rate [ Left Dorsalis Pedis] Pulse Rate [ Throughout] Respiratory 28 H Rate Respiratory Rate [ Throughout] Blood Pressure 94/58 106/62 O2 Sat by Pulse 99 Oximetry O2 Sat by Pulse Oximetry [ Assessment] Constitutional: no acute distress, other (elderly, atraumatic, normocephalic, chronically looking female) Eyes: non-icteric ENT: oropharynx moist, other (s/p tracheostomy) Neck: supple, no lymphadenopathy, no JVD Effort: normal Ascultation: Bilateral: diminished breath sounds, rhonchi (scant) Percussion: Bilateral: not dull Cardiovascular: regular rate and rhythm, other (tacycardia, S1,S2, no murmurs, gallops or rubs) Gastrointestinal: normoactive bowel sounds, soft, non-tender, non-distended Integumentary: normal Extremities: no cyanosis, no edema, pulses normal, no ischemia or petechiae Neurologic: unable to assess Psychiatric: other (unable to assess secondary to mental status) CBC and BMP: 05/19/19 11:14 02/04/19 11:14 ABG, PT/INR, D-dimer: ABG POC ABG pH 7.508 (7.35-7.45) H 01/30/19 16:47 POC ABG pCO2 31.5 (35-45) L 01/30/19 16:47 POC ABG pO2 135 (80-105) H 01/30/19 16:47 POC ABG HCO3 25.0 (22-26 mml/L) 01/30/19 16:47 POC ABG Total CO2 26 (23-27mmol/L) 01/30/19 16:47 POC ABG O2 Sat 99 01/30/19 16:47 PT/INR, D-dimer PT 18.8 Sec. (12.2-14.9) H 01/25/19 05:15 INR 1.47 (0.87-1.13) H 01/25/19 05:15 Abnormal lab findings: Abnormal Labs 01/15/19 01/15/19 01/15/19 07:50 07:50 07:50 WBC RBC Hgb Hct MCV 99 H RDW 16.7 H Plt Count 122 L Lymph % (Auto) Lymph # Seg Neutrophils % Seg Neuts % (Manual) Lymphocytes % (Manual) Seg Neutrophils # Seg Neutrophils # Man Lymphocytes # (Manual) PT 19.7 H INR 1.56 H POC ABG pH POC ABG pCO2 POC ABG pO2 Sodium Potassium Chloride Carbon Dioxide 11 L BUN Creatinine 1.4 H Glucose 268 H POC Glucose Calcium Magnesium AST 57 H Total Creatine Kinase CK-MB (CK-2) Troponin T NT-Pro-B Natriuret Pep 5346 H Total Protein Albumin 3.6 L HDL Cholesterol 01/15/19 01/15/19 01/15/19 09:56 11:53 17:52 WBC RBC Hgb Hct MCV RDW Plt Count Lymph % (Auto) Lymph # Seg Neutrophils % Seg Neuts % (Manual) Lymphocytes % (Manual) Seg Neutrophils # Seg Neutrophils # Man Lymphocytes # (Manual) PT INR POC ABG pH 7.186 L POC ABG pCO2 46.4 H POC ABG pO2 Sodium Potassium Chloride Carbon Dioxide BUN Creatinine Glucose POC Glucose Calcium Magnesium AST Total Creatine Kinase 683 H 1430 H CK-MB (CK-2) 9.5 H 13.5 H Troponin T 0.036 H D NT-Pro-B Natriuret Pep Total Protein Albumin HDL Cholesterol 65 H 01/15/19 01/15/19 01/16/19 18:31 21:46 02:14 WBC RBC Hgb Hct MCV RDW Plt Count Lymph % (Auto) Lymph # Seg Neutrophils % Seg Neuts % (Manual) Lymphocytes % (Manual) Seg Neutrophils # Seg Neutrophils # Man Lymphocytes # (Manual) PT INR POC ABG pH POC ABG pCO2 31.8 L POC ABG pO2 167 H Sodium Potassium Chloride Carbon Dioxide BUN Creatinine Glucose POC Glucose 134 H 136 H Calcium Magnesium AST Total Creatine Kinase CK-MB (CK-2) Troponin T NT-Pro-B Natriuret Pep Total Protein Albumin HDL Cholesterol 01/16/19 01/16/19 01/16/19 04:16 04:16 05:05 WBC 11.4 H RBC Hgb Hct MCV RDW Plt Count 105 L Lymph % (Auto) Lymph # Seg Neutrophils % Seg Neuts % (Manual) 74.0 H Lymphocytes % (Manual) 2.0 L Seg Neutrophils # Seg Neutrophils # Man 8.4 H Lymphocytes # (Manual) 0.2 L PT INR POC ABG pH 7.458 H POC ABG pCO2 31.4 L POC ABG pO2 135 H Sodium Potassium 3.3 L Chloride Carbon Dioxide 21 L D BUN 24 H Creatinine 1.5 H Glucose 141 H POC Glucose Calcium 8.1 L Magnesium AST 71 H Total Creatine Kinase CK-MB (CK-2) Troponin T NT-Pro-B Natriuret Pep Total Protein 6.2 L Albumin 3.5 L HDL Cholesterol 01/16/19 01/16/19 01/16/19 05:24 13:42 21:08 WBC RBC Hgb Hct MCV RDW Plt Count Lymph % (Auto) Lymph # Seg Neutrophils % Seg Neuts % (Manual) Lymphocytes % (Manual) Seg Neutrophils # Seg Neutrophils # Man Lymphocytes # (Manual) PT INR POC ABG pH POC ABG pCO2 POC ABG pO2 Sodium Potassium Chloride Carbon Dioxide BUN Creatinine Glucose POC Glucose 137 H 129 H 122 H Calcium Magnesium AST Total Creatine Kinase CK-MB (CK-2) Troponin T NT-Pro-B Natriuret Pep Total Protein Albumin HDL Cholesterol 01/17/19 01/17/19 01/17/19 02:18 04:23 05:13 WBC RBC Hgb Hct MCV RDW Plt Count Lymph % (Auto) Lymph # Seg Neutrophils % Seg Neuts % (Manual) Lymphocytes % (Manual) Seg Neutrophils # Seg Neutrophils # Man Lymphocytes # (Manual) PT INR POC ABG pH 7.479 H POC ABG pCO2 30.0 L POC ABG pO2 141 H Sodium Potassium Chloride Carbon Dioxide BUN Creatinine Glucose POC Glucose 139 H 128 H Calcium Magnesium AST Total Creatine Kinase CK-MB (CK-2) Troponin T NT-Pro-B Natriuret Pep Total Protein Albumin HDL Cholesterol 01/17/19 01/17/19 01/17/19 10:22 15:59 18:45 WBC RBC Hgb Hct MCV RDW Plt Count Lymph % (Auto) Lymph # Seg Neutrophils % Seg Neuts % (Manual) Lymphocytes % (Manual) Seg Neutrophils # Seg Neutrophils # Man Lymphocytes # (Manual) PT INR POC ABG pH POC ABG pCO2 POC ABG pO2 Sodium Potassium Chloride Carbon Dioxide BUN Creatinine Glucose POC Glucose 133 H 121 H 106 H Calcium Magnesium AST Total Creatine Kinase CK-MB (CK-2) Troponin T NT-Pro-B Natriuret Pep Total Protein Albumin HDL Cholesterol 01/17/19 01/18/19 01/18/19 23:35 04:21 04:21 WBC RBC 3.27 L Hgb 9.6 L Hct 29.9 L MCV RDW Plt Count 79 L Lymph % (Auto) 6.0 L Lymph # 0.5 L Seg Neutrophils % 89.2 H Seg Neuts % (Manual) Lymphocytes % (Manual) Seg Neutrophils # 8.1 H Seg Neutrophils # Man Lymphocytes # (Manual) PT INR POC ABG pH POC ABG pCO2 POC ABG pO2 Sodium Potassium Chloride Carbon Dioxide BUN 28 H Creatinine 1.3 H Glucose 129 H POC Glucose 121 H Calcium Magnesium AST 120 H Total Creatine Kinase CK-MB (CK-2) Troponin T NT-Pro-B Natriuret Pep Total Protein 5.1 L Albumin 3.0 L HDL Cholesterol 01/18/19 01/18/19 01/18/19 04:21 04:36 05:43 WBC RBC Hgb Hct MCV RDW Plt Count Lymph % (Auto) Lymph # Seg Neutrophils % Seg Neuts % (Manual) Lymphocytes % (Manual) Seg Neutrophils # Seg Neutrophils # Man Lymphocytes # (Manual) PT INR POC ABG pH 7.485 H POC ABG pCO2 31.0 L POC ABG pO2 126 H Sodium Potassium Chloride Carbon Dioxide BUN 28 H Creatinine 1.3 H Glucose 128 H POC Glucose 142 H Calcium Magnesium AST Total Creatine Kinase CK-MB (CK-2) Troponin T NT-Pro-B Natriuret Pep Total Protein Albumin HDL Cholesterol 01/18/19 01/18/19 01/18/19 12:04 18:16 20:47 WBC RBC Hgb Hct MCV RDW Plt Count Lymph % (Auto) Lymph # Seg Neutrophils % Seg Neuts % (Manual) Lymphocytes % (Manual) Seg Neutrophils # Seg Neutrophils # Man Lymphocytes # (Manual) PT INR POC ABG pH 7.489 H POC ABG pCO2 32.8 L POC ABG pO2 Sodium Potassium Chloride Carbon Dioxide BUN Creatinine Glucose POC Glucose 113 H 119 H Calcium Magnesium AST Total Creatine Kinase CK-MB (CK-2) Troponin T NT-Pro-B Natriuret Pep Total Protein Albumin HDL Cholesterol 01/19/19 01/19/19 01/19/19 00:40 05:35 11:39 WBC RBC Hgb Hct MCV RDW Plt Count Lymph % (Auto) Lymph # Seg Neutrophils % Seg Neuts % (Manual) Lymphocytes % (Manual) Seg Neutrophils # Seg Neutrophils # Man Lymphocytes # (Manual) PT INR POC ABG pH POC ABG pCO2 POC ABG pO2 Sodium Potassium Chloride Carbon Dioxide BUN Creatinine Glucose POC Glucose 137 H 157 H 155 H Calcium Magnesium AST Total Creatine Kinase CK-MB (CK-2) Troponin T NT-Pro-B Natriuret Pep Total Protein Albumin HDL Cholesterol 01/19/19 01/19/19 01/19/19 18:24 21:08 23:33 WBC RBC Hgb Hct MCV RDW Plt Count Lymph % (Auto) Lymph # Seg Neutrophils % Seg Neuts % (Manual) Lymphocytes % (Manual) Seg Neutrophils # Seg Neutrophils # Man Lymphocytes # (Manual) PT INR POC ABG pH 7.508 H POC ABG pCO2 34.2 L POC ABG pO2 Sodium Potassium Chloride Carbon Dioxide BUN Creatinine Glucose POC Glucose 145 H 156 H Calcium Magnesium AST Total Creatine Kinase CK-MB (CK-2) Troponin T NT-Pro-B Natriuret Pep Total Protein Albumin HDL Cholesterol 01/20/19 01/20/19 01/20/19 05:12 11:42 17:36 WBC RBC Hgb Hct MCV RDW Plt Count Lymph % (Auto) Lymph # Seg Neutrophils % Seg Neuts % (Manual) Lymphocytes % (Manual) Seg Neutrophils # Seg Neutrophils # Man Lymphocytes # (Manual) PT INR POC ABG pH POC ABG pCO2 POC ABG pO2 Sodium Potassium Chloride Carbon Dioxide BUN Creatinine Glucose POC Glucose 152 H 159 H 169 H Calcium Magnesium AST Total Creatine Kinase CK-MB (CK-2) Troponin T NT-Pro-B Natriuret Pep Total Protein Albumin HDL Cholesterol 01/20/19 01/21/19 01/21/19 23:29 05:30 05:34 WBC RBC Hgb Hct MCV RDW Plt Count Lymph % (Auto) Lymph # Seg Neutrophils % Seg Neuts % (Manual) Lymphocytes % (Manual) Seg Neutrophils # Seg Neutrophils # Man Lymphocytes # (Manual) PT INR POC ABG pH 7.616 H POC ABG pCO2 POC ABG pO2 71 L Sodium Potassium Chloride Carbon Dioxide BUN Creatinine Glucose POC Glucose 139 H 138 H Calcium Magnesium AST Total Creatine Kinase CK-MB (CK-2) Troponin T NT-Pro-B Natriuret Pep Total Protein Albumin HDL Cholesterol 01/21/19 01/21/19 01/22/19 12:41 18:47 00:07 WBC RBC Hgb Hct MCV RDW Plt Count Lymph % (Auto) Lymph # Seg Neutrophils % Seg Neuts % (Manual) Lymphocytes % (Manual) Seg Neutrophils # Seg Neutrophils # Man Lymphocytes # (Manual) PT INR POC ABG pH POC ABG pCO2 POC ABG pO2 Sodium Potassium Chloride Carbon Dioxide BUN Creatinine Glucose POC Glucose 154 H 174 H 163 H Calcium Magnesium AST Total Creatine Kinase CK-MB (CK-2) Troponin T NT-Pro-B Natriuret Pep Total Protein Albumin HDL Cholesterol 01/22/19 01/22/19 01/22/19 04:35 05:46 12:18 WBC RBC Hgb Hct MCV RDW Plt Count Lymph % (Auto) Lymph # Seg Neutrophils % Seg Neuts % (Manual) Lymphocytes % (Manual) Seg Neutrophils # Seg Neutrophils # Man Lymphocytes # (Manual) PT INR POC ABG pH 7.522 H POC ABG pCO2 POC ABG pO2 Sodium Potassium Chloride Carbon Dioxide BUN Creatinine Glucose POC Glucose 159 H 137 H Calcium Magnesium AST Total Creatine Kinase CK-MB (CK-2) Troponin T NT-Pro-B Natriuret Pep Total Protein Albumin HDL Cholesterol 01/22/19 01/22/19 01/22/19 15:00 15:00 18:13 WBC RBC 2.92 L Hgb 8.4 L Hct 25.6 L MCV RDW Plt Count Lymph % (Auto) Lymph # Seg Neutrophils % Seg Neuts % (Manual) Lymphocytes % (Manual) Seg Neutrophils # Seg Neutrophils # Man Lymphocytes # (Manual) PT INR POC ABG pH POC ABG pCO2 POC ABG pO2 Sodium Potassium Chloride 97.0 L Carbon Dioxide BUN 37 H Creatinine Glucose 162 H POC Glucose 159 H Calcium 8.2 L Magnesium AST Total Creatine Kinase CK-MB (CK-2) Troponin T NT-Pro-B Natriuret Pep Total Protein Albumin HDL Cholesterol 01/22/19 01/23/19 01/23/19 22:45 00:01 05:10 WBC RBC 2.92 L Hgb 8.5 L Hct 25.4 L MCV RDW Plt Count Lymph % (Auto) 6.3 L Lymph # 0.6 L Seg Neutrophils % 86.3 H Seg Neuts % (Manual) Lymphocytes % (Manual) Seg Neutrophils # 8.9 H Seg Neutrophils # Man Lymphocytes # (Manual) PT INR POC ABG pH POC ABG pCO2 POC ABG pO2 Sodium Potassium Chloride Carbon Dioxide BUN Creatinine Glucose POC Glucose 178 H 155 H Calcium Magnesium AST Total Creatine Kinase CK-MB (CK-2) Troponin T NT-Pro-B Natriuret Pep Total Protein Albumin HDL Cholesterol 01/23/19 01/23/19 01/23/19 11:31 17:49 Unknown WBC RBC Hgb Hct MCV RDW Plt Count Lymph % (Auto) Lymph # Seg Neutrophils % Seg Neuts % (Manual) Lymphocytes % (Manual) Seg Neutrophils # Seg Neutrophils # Man Lymphocytes # (Manual) PT INR POC ABG pH POC ABG pCO2 POC ABG pO2 Sodium Potassium Chloride 95.4 L Carbon Dioxide BUN 37 H Creatinine Glucose 144 H POC Glucose 161 H 142 H Calcium Magnesium AST 88 H Total Creatine Kinase CK-MB (CK-2) Troponin T NT-Pro-B Natriuret Pep Total Protein 6.0 L Albumin 2.9 L HDL Cholesterol 01/24/19 01/24/19 01/24/19 00:21 05:36 12:35 WBC RBC Hgb Hct MCV RDW Plt Count Lymph % (Auto) Lymph # Seg Neutrophils % Seg Neuts % (Manual) Lymphocytes % (Manual) Seg Neutrophils # Seg Neutrophils # Man Lymphocytes # (Manual) PT INR POC ABG pH POC ABG pCO2 POC ABG pO2 Sodium Potassium Chloride Carbon Dioxide BUN Creatinine Glucose POC Glucose 163 H 147 H 263 H Calcium Magnesium AST Total Creatine Kinase CK-MB (CK-2) Troponin T NT-Pro-B Natriuret Pep Total Protein Albumin HDL Cholesterol 01/24/19 01/24/19 01/24/19 17:46 23:07 Unknown WBC RBC 2.90 L Hgb 8.3 L Hct 25.0 L MCV RDW Plt Count Lymph % (Auto) Lymph # Seg Neutrophils % Seg Neuts % (Manual) Lymphocytes % (Manual) Seg Neutrophils # Seg Neutrophils # Man Lymphocytes # (Manual) PT INR POC ABG pH POC ABG pCO2 POC ABG pO2 Sodium Potassium Chloride Carbon Dioxide BUN Creatinine Glucose POC Glucose 161 H 167 H Calcium Magnesium AST Total Creatine Kinase CK-MB (CK-2) Troponin T NT-Pro-B Natriuret Pep Total Protein Albumin HDL Cholesterol 01/24/19 01/25/19 01/25/19 Unknown 05:15 05:15 WBC RBC 2.90 L Hgb 8.4 L Hct 25.2 L MCV RDW Plt Count Lymph % (Auto) Lymph # Seg Neutrophils % Seg Neuts % (Manual) Lymphocytes % (Manual) Seg Neutrophils # Seg Neutrophils # Man Lymphocytes # (Manual) PT INR POC ABG pH POC ABG pCO2 POC ABG pO2 Sodium 134 L 135 L Potassium Chloride 94.4 L 94.0 L Carbon Dioxide BUN 35 H 35 H Creatinine Glucose 151 H 128 H POC Glucose Calcium Magnesium AST Total Creatine Kinase CK-MB (CK-2) Troponin T NT-Pro-B Natriuret Pep Total Protein Albumin HDL Cholesterol 01/25/19 01/25/19 01/25/19 05:15 05:35 11:09 WBC RBC Hgb Hct MCV RDW Plt Count Lymph % (Auto) Lymph # Seg Neutrophils % Seg Neuts % (Manual) Lymphocytes % (Manual) Seg Neutrophils # Seg Neutrophils # Man Lymphocytes # (Manual) PT 18.8 H INR 1.47 H POC ABG pH POC ABG pCO2 POC ABG pO2 Sodium Potassium Chloride Carbon Dioxide BUN Creatinine Glucose POC Glucose 126 H 149 H Calcium Magnesium AST Total Creatine Kinase CK-MB (CK-2) Troponin T NT-Pro-B Natriuret Pep Total Protein Albumin HDL Cholesterol 01/25/19 01/25/19 01/26/19 17:24 23:41 00:09 WBC RBC Hgb Hct MCV RDW Plt Count Lymph % (Auto) Lymph # Seg Neutrophils % Seg Neuts % (Manual) Lymphocytes % (Manual) Seg Neutrophils # Seg Neutrophils # Man Lymphocytes # (Manual) PT INR POC ABG pH POC ABG pCO2 POC ABG pO2 Sodium Potassium Chloride Carbon Dioxide BUN Creatinine Glucose POC Glucose 140 H 142 H 156 H Calcium Magnesium AST Total Creatine Kinase CK-MB (CK-2) Troponin T NT-Pro-B Natriuret Pep Total Protein Albumin HDL Cholesterol 01/26/19 01/26/19 01/26/19 05:05 06:35 06:35 WBC RBC 2.83 L Hgb 8.1 L Hct 24.4 L MCV RDW Plt Count Lymph % (Auto) Lymph # Seg Neutrophils % Seg Neuts % (Manual) Lymphocytes % (Manual) Seg Neutrophils # Seg Neutrophils # Man Lymphocytes # (Manual) PT INR POC ABG pH POC ABG pCO2 POC ABG pO2 Sodium Potassium Chloride 96.9 L Carbon Dioxide BUN 29 H Creatinine Glucose 141 H POC Glucose 159 H Calcium 8.3 L Magnesium AST Total Creatine Kinase CK-MB (CK-2) Troponin T NT-Pro-B Natriuret Pep Total Protein Albumin HDL Cholesterol 01/26/19 01/26/19 01/27/19 13:16 19:10 00:08 WBC RBC Hgb Hct MCV RDW Plt Count Lymph % (Auto) Lymph # Seg Neutrophils % Seg Neuts % (Manual) Lymphocytes % (Manual) Seg Neutrophils # Seg Neutrophils # Man Lymphocytes # (Manual) PT INR POC ABG pH POC ABG pCO2 POC ABG pO2 Sodium Potassium Chloride Carbon Dioxide BUN Creatinine Glucose POC Glucose 159 H 146 H 140 H Calcium Magnesium AST Total Creatine Kinase CK-MB (CK-2) Troponin T NT-Pro-B Natriuret Pep Total Protein Albumin HDL Cholesterol 01/27/19 01/27/19 01/27/19 03:30 03:30 06:23 WBC RBC 2.85 L Hgb 8.3 L Hct 24.8 L MCV RDW Plt Count Lymph % (Auto) Lymph # Seg Neutrophils % Seg Neuts % (Manual) Lymphocytes % (Manual) Seg Neutrophils # Seg Neutrophils # Man Lymphocytes # (Manual) PT INR POC ABG pH POC ABG pCO2 POC ABG pO2 Sodium 136 L Potassium Chloride 97.1 L Carbon Dioxide BUN 26 H Creatinine Glucose 129 H POC Glucose 154 H Calcium Magnesium AST Total Creatine Kinase CK-MB (CK-2) Troponin T NT-Pro-B Natriuret Pep Total Protein Albumin HDL Cholesterol 01/27/19 01/27/19 01/27/19 12:47 17:43 23:31 WBC RBC Hgb Hct MCV RDW Plt Count Lymph % (Auto) Lymph # Seg Neutrophils % Seg Neuts % (Manual) Lymphocytes % (Manual) Seg Neutrophils # Seg Neutrophils # Man Lymphocytes # (Manual) PT INR POC ABG pH POC ABG pCO2 POC ABG pO2 Sodium Potassium Chloride Carbon Dioxide BUN Creatinine Glucose POC Glucose 159 H 180 H 164 H Calcium Magnesium AST Total Creatine Kinase CK-MB (CK-2) Troponin T NT-Pro-B Natriuret Pep Total Protein Albumin HDL Cholesterol 01/28/19 01/28/19 01/28/19 04:35 12:01 12:01 WBC RBC 2.67 L Hgb 7.9 L Hct 22.9 L MCV RDW Plt Count Lymph % (Auto) Lymph # Seg Neutrophils % Seg Neuts % (Manual) Lymphocytes % (Manual) Seg Neutrophils # Seg Neutrophils # Man Lymphocytes # (Manual) PT INR POC ABG pH POC ABG pCO2 POC ABG pO2 Sodium 136 L Potassium 3.5 L Chloride Carbon Dioxide BUN 18 H Creatinine Glucose 143 H POC Glucose 139 H Calcium 8.0 L Magnesium AST Total Creatine Kinase CK-MB (CK-2) Troponin T NT-Pro-B Natriuret Pep Total Protein Albumin HDL Cholesterol 01/28/19 01/28/19 01/28/19 12:04 16:59 17:11 WBC RBC Hgb Hct MCV RDW Plt Count Lymph % (Auto) Lymph # Seg Neutrophils % Seg Neuts % (Manual) Lymphocytes % (Manual) Seg Neutrophils # Seg Neutrophils # Man Lymphocytes # (Manual) PT INR POC ABG pH 7.488 H POC ABG pCO2 34.1 L POC ABG pO2 Sodium Potassium Chloride Carbon Dioxide BUN Creatinine Glucose POC Glucose 143 H 163 H Calcium Magnesium AST Total Creatine Kinase CK-MB (CK-2) Troponin T NT-Pro-B Natriuret Pep Total Protein Albumin HDL Cholesterol 01/29/19 01/29/19 01/29/19 00:10 05:47 12:08 WBC RBC Hgb Hct MCV RDW Plt Count Lymph % (Auto) Lymph # Seg Neutrophils % Seg Neuts % (Manual) Lymphocytes % (Manual) Seg Neutrophils # Seg Neutrophils # Man Lymphocytes # (Manual) PT INR POC ABG pH POC ABG pCO2 POC ABG pO2 Sodium Potassium Chloride Carbon Dioxide BUN Creatinine Glucose POC Glucose 171 H 187 H 137 H Calcium Magnesium AST Total Creatine Kinase CK-MB (CK-2) Troponin T NT-Pro-B Natriuret Pep Total Protein Albumin HDL Cholesterol 01/29/19 01/29/19 01/29/19 16:48 16:54 17:47 WBC RBC Hgb Hct MCV RDW Plt Count Lymph % (Auto) Lymph # Seg Neutrophils % Seg Neuts % (Manual) Lymphocytes % (Manual) Seg Neutrophils # Seg Neutrophils # Man Lymphocytes # (Manual) PT INR POC ABG pH 7.486 H 7.512 H POC ABG pCO2 32.8 L 32.7 L POC ABG pO2 108 H Sodium Potassium Chloride Carbon Dioxide BUN Creatinine Glucose POC Glucose 156 H Calcium Magnesium AST Total Creatine Kinase CK-MB (CK-2) Troponin T NT-Pro-B Natriuret Pep Total Protein Albumin HDL Cholesterol 01/29/19 01/30/19 01/30/19 23:48 06:45 07:18 WBC RBC 2.94 L Hgb 8.6 L Hct 25.7 L MCV RDW Plt Count Lymph % (Auto) Lymph # Seg Neutrophils % Seg Neuts % (Manual) Lymphocytes % (Manual) Seg Neutrophils # Seg Neutrophils # Man Lymphocytes # (Manual) PT INR POC ABG pH POC ABG pCO2 POC ABG pO2 Sodium 135 L Potassium Chloride Carbon Dioxide BUN Creatinine Glucose 141 H POC Glucose 185 H Calcium 8.3 L Magnesium AST Total Creatine Kinase CK-MB (CK-2) Troponin T NT-Pro-B Natriuret Pep Total Protein Albumin HDL Cholesterol 01/30/19 01/30/19 01/30/19 11:17 16:47 18:16 WBC RBC Hgb Hct MCV RDW Plt Count Lymph % (Auto) Lymph # Seg Neutrophils % Seg Neuts % (Manual) Lymphocytes % (Manual) Seg Neutrophils # Seg Neutrophils # Man Lymphocytes # (Manual) PT INR POC ABG pH 7.508 H POC ABG pCO2 31.5 L POC ABG pO2 135 H Sodium Potassium Chloride Carbon Dioxide BUN Creatinine Glucose POC Glucose 170 H 108 H Calcium Magnesium AST Total Creatine Kinase CK-MB (CK-2) Troponin T NT-Pro-B Natriuret Pep Total Protein Albumin HDL Cholesterol 01/30/19 01/31/19 01/31/19 23:38 05:45 12:04 WBC RBC Hgb Hct MCV RDW Plt Count Lymph % (Auto) Lymph # Seg Neutrophils % Seg Neuts % (Manual) Lymphocytes % (Manual) Seg Neutrophils # Seg Neutrophils # Man Lymphocytes # (Manual) PT INR POC ABG pH POC ABG pCO2 POC ABG pO2 Sodium Potassium Chloride Carbon Dioxide BUN Creatinine Glucose POC Glucose 146 H 121 H 152 H Calcium Magnesium AST Total Creatine Kinase CK-MB (CK-2) Troponin T NT-Pro-B Natriuret Pep Total Protein Albumin HDL Cholesterol 01/31/19 01/31/19 02/01/19 17:44 23:58 05:46 WBC RBC Hgb Hct MCV RDW Plt Count Lymph % (Auto) Lymph # Seg Neutrophils % Seg Neuts % (Manual) Lymphocytes % (Manual) Seg Neutrophils # Seg Neutrophils # Man Lymphocytes # (Manual) PT INR POC ABG pH POC ABG pCO2 POC ABG pO2 Sodium Potassium Chloride Carbon Dioxide BUN Creatinine Glucose POC Glucose 153 H 183 H 116 H Calcium Magnesium AST Total Creatine Kinase CK-MB (CK-2) Troponin T NT-Pro-B Natriuret Pep Total Protein Albumin HDL Cholesterol 02/01/19 02/01/19 02/01/19 11:10 12:18 17:48 WBC RBC Hgb Hct MCV RDW Plt Count Lymph % (Auto) Lymph # Seg Neutrophils % Seg Neuts % (Manual) Lymphocytes % (Manual) Seg Neutrophils # Seg Neutrophils # Man Lymphocytes # (Manual) PT INR POC ABG pH POC ABG pCO2 POC ABG pO2 Sodium 133 L Potassium 3.3 L Chloride 96.1 L Carbon Dioxide BUN Creatinine Glucose 145 H POC Glucose 175 H 129 H Calcium 8.3 L Magnesium AST Total Creatine Kinase CK-MB (CK-2) Troponin T NT-Pro-B Natriuret Pep Total Protein Albumin HDL Cholesterol 02/01/19 02/02/19 02/02/19 23:13 05:16 06:00 WBC RBC Hgb Hct MCV RDW Plt Count Lymph % (Auto) Lymph # Seg Neutrophils % Seg Neuts % (Manual) Lymphocytes % (Manual) Seg Neutrophils # Seg Neutrophils # Man Lymphocytes # (Manual) PT INR POC ABG pH POC ABG pCO2 POC ABG pO2 Sodium 135 L Potassium Chloride Carbon Dioxide BUN 18 H Creatinine Glucose 121 H POC Glucose 143 H 140 H Calcium 8.3 L Magnesium 1.60 L AST Total Creatine Kinase CK-MB (CK-2) Troponin T NT-Pro-B Natriuret Pep Total Protein Albumin HDL Cholesterol 02/02/19 12:06 WBC RBC Hgb Hct MCV RDW Plt Count Lymph % (Auto) Lymph # Seg Neutrophils % Seg Neuts % (Manual) Lymphocytes % (Manual) Seg Neutrophils # Seg Neutrophils # Man Lymphocytes # (Manual) PT INR POC ABG pH POC ABG pCO2 POC ABG pO2 Sodium Potassium Chloride Carbon Dioxide BUN Creatinine Glucose POC Glucose 156 H Calcium Magnesium AST Total Creatine Kinase CK-MB (CK-2) Troponin T NT-Pro-B Natriuret Pep Total Protein Albumin HDL Cholesterol Chest x-ray: pending Allied health notes reviewed: nursing
[2019-02-02] MEDS ORDERED: SODIUM BICARBONATE FEEDTUBE PRN (14:21)
[2019-02-02] MEDS ORDERED: SIMPLE SYRUP FEEDTUBE PRN ×2 (14:21)
[2019-02-02] MEDS ORDERED: PANCREAZE DR 10,500 UNIT FEEDTUBE PRN (14:21)
[2019-02-03] MEDS: DUONEB *Not for PRN Use IH SCH ×4 (02:38→19:52)
[2019-02-03] MEDS: HumaLOG SUB-Q SCH ×4 (05:34→17:46)
[2019-02-03] MEDS: LASIX PO SCH ×2 (05:35→18:00)
[2019-02-03] MEDS: REGLAN IV SCH ×3 (05:36→21:38)
--- NOTE | 2019-02-03 07:00 | Progress Note ---
Assessment and Plan s/p Cardiopulmonary arrest, out of hospital, PEA with ROSC Acute hypoxic-hypercapnic respiratory failure on MVS Acute encephalopathy, metabolic Acute metabolic acidosis Acute renal injury Seizure activity Right lower lobe infiltrate, probably aspiration Pyrexia with leukocytosis Pulmonary HTN RVSP 60 Systolic heart failure EF 35-40% Thrombocytopenia Pyrexia PEG placement to facilitate discharge planning Continue with weaning trials Resume trickle/trophic feeding Wean supplemental oxygen to keep O2 sats 88-90% Trach care, secretion management, airway clearance -PRN ABGs/CXR -Avoid nephrotoxic agents, -Continue ATP trials per protocol -Stress ulcer prophylaxis -Aspiration precautions -Accuchecks with glycemic control. Target glucose of 140-180 mg/dL -Bronchodilators with pulmonary hygiene per RT -Maintenance of sleep -wake cycle -Mobility as tolerated by hemodynamics -Influenza and pneumonia vaccination per protocol ..care plan discussed at length with RN/RT at the bedside PROGNOSIS:poor CONDITION: FAIR CODE STATUS: FULL CODE Subjective Date of service: 02/03/19 Principal diagnosis: OOH cardiac arrest; Acute hypoxemic-hypercapnic Resp failure; PNA Interval history: Patient is seen today for: OOH cardiopulmonary arrest with ROSC; Acute hypoxemic-hypercapnic respiratory failure s/p MVS; acute encephalopathy; aspiration pneumonia; s/p tracheostomy; ileus Seen and examined at bedside; 24-hour events reviewed; nursing and respiratory care staff consulted; no adverse overnight events reported to me; no fevers, no vomiting, no fevers, tolerating ATP , off MVS, Persistent encephalopathy Objective Vital Signs - 12hr 02/02/19 02/02/19 02/02/19 19:15 19:54 20:00 Temperature 98.5 F Pulse Rate 81 80 Pulse Rate [ 78 From Monitor] Pulse Rate [ Throughout] Respiratory 25 H 34 H Rate Respiratory Rate [ Throughout] Blood Pressure 114/69 O2 Sat by Pulse 100 100 Oximetry O2 Sat by Pulse Oximetry [ Assessment] 02/02/19 02/02/19 02/02/19 21:00 21:12 21:13 Temperature Pulse Rate 78 Pulse Rate [ From Monitor] Pulse Rate [ 100 H Throughout] Respiratory 23 Rate Respiratory 23 Rate [ Throughout] Blood Pressure 101/60 O2 Sat by Pulse 100 100 Oximetry O2 Sat by Pulse Oximetry [ Assessment] 02/02/19 02/02/19 02/02/19 21:15 21:24 22:00 Temperature Pulse Rate 78 78 74 Pulse Rate [ 78 From Monitor] Pulse Rate [ Throughout] Respiratory 22 19 Rate Respiratory Rate [ Throughout] Blood Pressure 101/60 98/51 O2 Sat by Pulse 100 100 Oximetry O2 Sat by Pulse Oximetry [ Assessment] 02/02/19 02/02/19 02/02/19 23:00 23:22 23:25 Temperature 98.2 F Pulse Rate 76 74 Pulse Rate [ From Monitor] Pulse Rate [ Throughout] Respiratory 20 19 Rate Respiratory Rate [ Throughout] Blood Pressure 97/57 97/57 O2 Sat by Pulse 100 100 Oximetry O2 Sat by Pulse Oximetry [ Assessment] 02/02/19 02/03/19 02/03/19 23:40 00:00 01:00 Temperature Pulse Rate 74 74 Pulse Rate [ 78 From Monitor] Pulse Rate [ Throughout] Respiratory 25 H 20 18 Rate Respiratory Rate [ Throughout] Blood Pressure 103/57 100/57 O2 Sat by Pulse 100 100 88 Oximetry O2 Sat by Pulse 100 Oximetry [ Assessment] 02/03/19 02/03/19 02/03/19 02:00 02:10 02:39 Temperature Pulse Rate 75 75 Pulse Rate [ 73 From Monitor] Pulse Rate [ 72 Throughout] Respiratory 16 24 Rate Respiratory 13 Rate [ Throughout] Blood Pressure 102/57 O2 Sat by Pulse 100 100 Oximetry O2 Sat by Pulse Oximetry [ Assessment] 02/03/19 02/03/19 02/03/19 03:00 03:12 04:00 Temperature 98.8 F Pulse Rate 75 78 Pulse Rate [ From Monitor] Pulse Rate [ Throughout] Respiratory 27 H 24 Rate Respiratory Rate [ Throughout] Blood Pressure 102/57 99/57 O2 Sat by Pulse 100 98 Oximetry O2 Sat by Pulse Oximetry [ Assessment] 02/03/19 02/03/19 02/03/19 04:16 04:38 05:00 Temperature Pulse Rate 78 74 74 Pulse Rate [ 78 From Monitor] Pulse Rate [ Throughout] Respiratory 20 18 Rate Respiratory Rate [ Throughout] Blood Pressure 110/61 O2 Sat by Pulse 100 100 Oximetry O2 Sat by Pulse Oximetry [ Assessment] 02/03/19 05:31 Temperature Pulse Rate Pulse Rate [ From Monitor] Pulse Rate [ Throughout] Respiratory 20 Rate Respiratory Rate [ Throughout] Blood Pressure O2 Sat by Pulse 100 Oximetry O2 Sat by Pulse Oximetry [ Assessment] Constitutional: no acute distress, other (elderly, atraumatic, normocephalic, chronically looking female) Eyes: non-icteric ENT: oropharynx moist, other (s/p tracheostomy) Neck: supple, no lymphadenopathy, no JVD Effort: normal Ascultation: Bilateral: diminished breath sounds, rales (bases), rhonchi (scant), other (coarse breath sound bilaterally upper lobes anteriorly) Percussion: Bilateral: not dull Cardiovascular: regular rate and rhythm, other (tacycardia, S1,S2, no murmurs, gallops or rubs) Gastrointestinal: normoactive bowel sounds, soft, non-tender, non-distended Integumentary: normal Extremities: no cyanosis, no edema, pulses normal, no ischemia or petechiae Neurologic: unable to assess Psychiatric: other (unable to assess secondary to mental status) CBC and BMP: 02/05/19 04:27 02/05/19 04:27 ABG, PT/INR, D-dimer: ABG POC ABG pH 7.508 (7.35-7.45) H 01/30/19 16:47 POC ABG pCO2 31.5 (35-45) L 01/30/19 16:47 POC ABG pO2 135 (80-105) H 01/30/19 16:47 POC ABG HCO3 25.0 (22-26 mml/L) 01/30/19 16:47 POC ABG Total CO2 26 (23-27mmol/L) 01/30/19 16:47 POC ABG O2 Sat 99 01/30/19 16:47 PT/INR, D-dimer PT 18.8 Sec. (12.2-14.9) H 01/25/19 05:15 INR 1.47 (0.87-1.13) H 01/25/19 05:15 Abnormal lab findings: Abnormal Labs 01/15/19 01/15/19 01/15/19 07:50 07:50 07:50 WBC RBC Hgb Hct MCV 99 H RDW 16.7 H Plt Count 122 L Lymph % (Auto) Lymph # Seg Neutrophils % Seg Neuts % (Manual) Lymphocytes % (Manual) Seg Neutrophils # Seg Neutrophils # Man Lymphocytes # (Manual) PT 19.7 H INR 1.56 H POC ABG pH POC ABG pCO2 POC ABG pO2 Sodium Potassium Chloride Carbon Dioxide 11 L BUN Creatinine 1.4 H Glucose 268 H POC Glucose Calcium Magnesium AST 57 H Total Creatine Kinase CK-MB (CK-2) Troponin T NT-Pro-B Natriuret Pep 5346 H Total Protein Albumin 3.6 L HDL Cholesterol 01/15/19 01/15/19 01/15/19 09:56 11:53 17:52 WBC RBC Hgb Hct MCV RDW Plt Count Lymph % (Auto) Lymph # Seg Neutrophils % Seg Neuts % (Manual) Lymphocytes % (Manual) Seg Neutrophils # Seg Neutrophils # Man Lymphocytes # (Manual) PT INR POC ABG pH 7.186 L POC ABG pCO2 46.4 H POC ABG pO2 Sodium Potassium Chloride Carbon Dioxide BUN Creatinine Glucose POC Glucose Calcium Magnesium AST Total Creatine Kinase 683 H 1430 H CK-MB (CK-2) 9.5 H 13.5 H Troponin T 0.036 H D NT-Pro-B Natriuret Pep Total Protein Albumin HDL Cholesterol 65 H 01/15/19 01/15/19 01/16/19 18:31 21:46 02:14 WBC RBC Hgb Hct MCV RDW Plt Count Lymph % (Auto) Lymph # Seg Neutrophils % Seg Neuts % (Manual) Lymphocytes % (Manual) Seg Neutrophils # Seg Neutrophils # Man Lymphocytes # (Manual) PT INR POC ABG pH POC ABG pCO2 31.8 L POC ABG pO2 167 H Sodium Potassium Chloride Carbon Dioxide BUN Creatinine Glucose POC Glucose 134 H 136 H Calcium Magnesium AST Total Creatine Kinase CK-MB (CK-2) Troponin T NT-Pro-B Natriuret Pep Total Protein Albumin HDL Cholesterol 01/16/19 01/16/19 01/16/19 04:16 04:16 05:05 WBC 11.4 H RBC Hgb Hct MCV RDW Plt Count 105 L Lymph % (Auto) Lymph # Seg Neutrophils % Seg Neuts % (Manual) 74.0 H Lymphocytes % (Manual) 2.0 L Seg Neutrophils # Seg Neutrophils # Man 8.4 H Lymphocytes # (Manual) 0.2 L PT INR POC ABG pH 7.458 H POC ABG pCO2 31.4 L POC ABG pO2 135 H Sodium Potassium 3.3 L Chloride Carbon Dioxide 21 L D BUN 24 H Creatinine 1.5 H Glucose 141 H POC Glucose Calcium 8.1 L Magnesium AST 71 H Total Creatine Kinase CK-MB (CK-2) Troponin T NT-Pro-B Natriuret Pep Total Protein 6.2 L Albumin 3.5 L HDL Cholesterol 01/16/19 01/16/19 01/16/19 05:24 13:42 21:08 WBC RBC Hgb Hct MCV RDW Plt Count Lymph % (Auto) Lymph # Seg Neutrophils % Seg Neuts % (Manual) Lymphocytes % (Manual) Seg Neutrophils # Seg Neutrophils # Man Lymphocytes # (Manual) PT INR POC ABG pH POC ABG pCO2 POC ABG pO2 Sodium Potassium Chloride Carbon Dioxide BUN Creatinine Glucose POC Glucose 137 H 129 H 122 H Calcium Magnesium AST Total Creatine Kinase CK-MB (CK-2) Troponin T NT-Pro-B Natriuret Pep Total Protein Albumin HDL Cholesterol 01/17/19 01/17/19 01/17/19 02:18 04:23 05:13 WBC RBC Hgb Hct MCV RDW Plt Count Lymph % (Auto) Lymph # Seg Neutrophils % Seg Neuts % (Manual) Lymphocytes % (Manual) Seg Neutrophils # Seg Neutrophils # Man Lymphocytes # (Manual) PT INR POC ABG pH 7.479 H POC ABG pCO2 30.0 L POC ABG pO2 141 H Sodium Potassium Chloride Carbon Dioxide BUN Creatinine Glucose POC Glucose 139 H 128 H Calcium Magnesium AST Total Creatine Kinase CK-MB (CK-2) Troponin T NT-Pro-B Natriuret Pep Total Protein Albumin HDL Cholesterol 01/17/19 01/17/19 01/17/19 10:22 15:59 18:45 WBC RBC Hgb Hct MCV RDW Plt Count Lymph % (Auto) Lymph # Seg Neutrophils % Seg Neuts % (Manual) Lymphocytes % (Manual) Seg Neutrophils # Seg Neutrophils # Man Lymphocytes # (Manual) PT INR POC ABG pH POC ABG pCO2 POC ABG pO2 Sodium Potassium Chloride Carbon Dioxide BUN Creatinine Glucose POC Glucose 133 H 121 H 106 H Calcium Magnesium AST Total Creatine Kinase CK-MB (CK-2) Troponin T NT-Pro-B Natriuret Pep Total Protein Albumin HDL Cholesterol 01/17/19 01/18/19 01/18/19 23:35 04:21 04:21 WBC RBC 3.27 L Hgb 9.6 L Hct 29.9 L MCV RDW Plt Count 79 L Lymph % (Auto) 6.0 L Lymph # 0.5 L Seg Neutrophils % 89.2 H Seg Neuts % (Manual) Lymphocytes % (Manual) Seg Neutrophils # 8.1 H Seg Neutrophils # Man Lymphocytes # (Manual) PT INR POC ABG pH POC ABG pCO2 POC ABG pO2 Sodium Potassium Chloride Carbon Dioxide BUN 28 H Creatinine 1.3 H Glucose 129 H POC Glucose 121 H Calcium Magnesium AST 120 H Total Creatine Kinase CK-MB (CK-2) Troponin T NT-Pro-B Natriuret Pep Total Protein 5.1 L Albumin 3.0 L HDL Cholesterol 01/18/19 01/18/19 01/18/19 04:21 04:36 05:43 WBC RBC Hgb Hct MCV RDW Plt Count Lymph % (Auto) Lymph # Seg Neutrophils % Seg Neuts % (Manual) Lymphocytes % (Manual) Seg Neutrophils # Seg Neutrophils # Man Lymphocytes # (Manual) PT INR POC ABG pH 7.485 H POC ABG pCO2 31.0 L POC ABG pO2 126 H Sodium Potassium Chloride Carbon Dioxide BUN 28 H Creatinine 1.3 H Glucose 128 H POC Glucose 142 H Calcium Magnesium AST Total Creatine Kinase CK-MB (CK-2) Troponin T NT-Pro-B Natriuret Pep Total Protein Albumin HDL Cholesterol 01/18/19 01/18/19 01/18/19 12:04 18:16 20:47 WBC RBC Hgb Hct MCV RDW Plt Count Lymph % (Auto) Lymph # Seg Neutrophils % Seg Neuts % (Manual) Lymphocytes % (Manual) Seg Neutrophils # Seg Neutrophils # Man Lymphocytes # (Manual) PT INR POC ABG pH 7.489 H POC ABG pCO2 32.8 L POC ABG pO2 Sodium Potassium Chloride Carbon Dioxide BUN Creatinine Glucose POC Glucose 113 H 119 H Calcium Magnesium AST Total Creatine Kinase CK-MB (CK-2) Troponin T NT-Pro-B Natriuret Pep Total Protein Albumin HDL Cholesterol 01/19/19 01/19/19 01/19/19 00:40 05:35 11:39 WBC RBC Hgb Hct MCV RDW Plt Count Lymph % (Auto) Lymph # Seg Neutrophils % Seg Neuts % (Manual) Lymphocytes % (Manual) Seg Neutrophils # Seg Neutrophils # Man Lymphocytes # (Manual) PT INR POC ABG pH POC ABG pCO2 POC ABG pO2 Sodium Potassium Chloride Carbon Dioxide BUN Creatinine Glucose POC Glucose 137 H 157 H 155 H Calcium Magnesium AST Total Creatine Kinase CK-MB (CK-2) Troponin T NT-Pro-B Natriuret Pep Total Protein Albumin HDL Cholesterol 01/19/19 01/19/19 01/19/19 18:24 21:08 23:33 WBC RBC Hgb Hct MCV RDW Plt Count Lymph % (Auto) Lymph # Seg Neutrophils % Seg Neuts % (Manual) Lymphocytes % (Manual) Seg Neutrophils # Seg Neutrophils # Man Lymphocytes # (Manual) PT INR POC ABG pH 7.508 H POC ABG pCO2 34.2 L POC ABG pO2 Sodium Potassium Chloride Carbon Dioxide BUN Creatinine Glucose POC Glucose 145 H 156 H Calcium Magnesium AST Total Creatine Kinase CK-MB (CK-2) Troponin T NT-Pro-B Natriuret Pep Total Protein Albumin HDL Cholesterol 01/20/19 01/20/19 01/20/19 05:12 11:42 17:36 WBC RBC Hgb Hct MCV RDW Plt Count Lymph % (Auto) Lymph # Seg Neutrophils % Seg Neuts % (Manual) Lymphocytes % (Manual) Seg Neutrophils # Seg Neutrophils # Man Lymphocytes # (Manual) PT INR POC ABG pH POC ABG pCO2 POC ABG pO2 Sodium Potassium Chloride Carbon Dioxide BUN Creatinine Glucose POC Glucose 152 H 159 H 169 H Calcium Magnesium AST Total Creatine Kinase CK-MB (CK-2) Troponin T NT-Pro-B Natriuret Pep Total Protein Albumin HDL Cholesterol 01/20/19 01/21/19 01/21/19 23:29 05:30 05:34 WBC RBC Hgb Hct MCV RDW Plt Count Lymph % (Auto) Lymph # Seg Neutrophils % Seg Neuts % (Manual) Lymphocytes % (Manual) Seg Neutrophils # Seg Neutrophils # Man Lymphocytes # (Manual) PT INR POC ABG pH 7.616 H POC ABG pCO2 POC ABG pO2 71 L Sodium Potassium Chloride Carbon Dioxide BUN Creatinine Glucose POC Glucose 139 H 138 H Calcium Magnesium AST Total Creatine Kinase CK-MB (CK-2) Troponin T NT-Pro-B Natriuret Pep Total Protein Albumin HDL Cholesterol 01/21/19 01/21/19 01/22/19 12:41 18:47 00:07 WBC RBC Hgb Hct MCV RDW Plt Count Lymph % (Auto) Lymph # Seg Neutrophils % Seg Neuts % (Manual) Lymphocytes % (Manual) Seg Neutrophils # Seg Neutrophils # Man Lymphocytes # (Manual) PT INR POC ABG pH POC ABG pCO2 POC ABG pO2 Sodium Potassium Chloride Carbon Dioxide BUN Creatinine Glucose POC Glucose 154 H 174 H 163 H Calcium Magnesium AST Total Creatine Kinase CK-MB (CK-2) Troponin T NT-Pro-B Natriuret Pep Total Protein Albumin HDL Cholesterol 01/22/19 01/22/19 01/22/19 04:35 05:46 12:18 WBC RBC Hgb Hct MCV RDW Plt Count Lymph % (Auto) Lymph # Seg Neutrophils % Seg Neuts % (Manual) Lymphocytes % (Manual) Seg Neutrophils # Seg Neutrophils # Man Lymphocytes # (Manual) PT INR POC ABG pH 7.522 H POC ABG pCO2 POC ABG pO2 Sodium Potassium Chloride Carbon Dioxide BUN Creatinine Glucose POC Glucose 159 H 137 H Calcium Magnesium AST Total Creatine Kinase CK-MB (CK-2) Troponin T NT-Pro-B Natriuret Pep Total Protein Albumin HDL Cholesterol 01/22/19 01/22/19 01/22/19 15:00 15:00 18:13 WBC RBC 2.92 L Hgb 8.4 L Hct 25.6 L MCV RDW Plt Count Lymph % (Auto) Lymph # Seg Neutrophils % Seg Neuts % (Manual) Lymphocytes % (Manual) Seg Neutrophils # Seg Neutrophils # Man Lymphocytes # (Manual) PT INR POC ABG pH POC ABG pCO2 POC ABG pO2 Sodium Potassium Chloride 97.0 L Carbon Dioxide BUN 37 H Creatinine Glucose 162 H POC Glucose 159 H Calcium 8.2 L Magnesium AST Total Creatine Kinase CK-MB (CK-2) Troponin T NT-Pro-B Natriuret Pep Total Protein Albumin HDL Cholesterol 01/22/19 01/23/19 01/23/19 22:45 00:01 05:10 WBC RBC 2.92 L Hgb 8.5 L Hct 25.4 L MCV RDW Plt Count Lymph % (Auto) 6.3 L Lymph # 0.6 L Seg Neutrophils % 86.3 H Seg Neuts % (Manual) Lymphocytes % (Manual) Seg Neutrophils # 8.9 H Seg Neutrophils # Man Lymphocytes # (Manual) PT INR POC ABG pH POC ABG pCO2 POC ABG pO2 Sodium Potassium Chloride Carbon Dioxide BUN Creatinine Glucose POC Glucose 178 H 155 H Calcium Magnesium AST Total Creatine Kinase CK-MB (CK-2) Troponin T NT-Pro-B Natriuret Pep Total Protein Albumin HDL Cholesterol 01/23/19 01/23/19 01/23/19 11:31 17:49 Unknown WBC RBC Hgb Hct MCV RDW Plt Count Lymph % (Auto) Lymph # Seg Neutrophils % Seg Neuts % (Manual) Lymphocytes % (Manual) Seg Neutrophils # Seg Neutrophils # Man Lymphocytes # (Manual) PT INR POC ABG pH POC ABG pCO2 POC ABG pO2 Sodium Potassium Chloride 95.4 L Carbon Dioxide BUN 37 H Creatinine Glucose 144 H POC Glucose 161 H 142 H Calcium Magnesium AST 88 H Total Creatine Kinase CK-MB (CK-2) Troponin T NT-Pro-B Natriuret Pep Total Protein 6.0 L Albumin 2.9 L HDL Cholesterol 01/24/19 01/24/19 01/24/19 00:21 05:36 12:35 WBC RBC Hgb Hct MCV RDW Plt Count Lymph % (Auto) Lymph # Seg Neutrophils % Seg Neuts % (Manual) Lymphocytes % (Manual) Seg Neutrophils # Seg Neutrophils # Man Lymphocytes # (Manual) PT INR POC ABG pH POC ABG pCO2 POC ABG pO2 Sodium Potassium Chloride Carbon Dioxide BUN Creatinine Glucose POC Glucose 163 H 147 H 263 H Calcium Magnesium AST Total Creatine Kinase CK-MB (CK-2) Troponin T NT-Pro-B Natriuret Pep Total Protein Albumin HDL Cholesterol 01/24/19 01/24/19 01/24/19 17:46 23:07 Unknown WBC RBC 2.90 L Hgb 8.3 L Hct 25.0 L MCV RDW Plt Count Lymph % (Auto) Lymph # Seg Neutrophils % Seg Neuts % (Manual) Lymphocytes % (Manual) Seg Neutrophils # Seg Neutrophils # Man Lymphocytes # (Manual) PT INR POC ABG pH POC ABG pCO2 POC ABG pO2 Sodium Potassium Chloride Carbon Dioxide BUN Creatinine Glucose POC Glucose 161 H 167 H Calcium Magnesium AST Total Creatine Kinase CK-MB (CK-2) Troponin T NT-Pro-B Natriuret Pep Total Protein Albumin HDL Cholesterol 01/24/19 01/25/19 01/25/19 Unknown 05:15 05:15 WBC RBC 2.90 L Hgb 8.4 L Hct 25.2 L MCV RDW Plt Count Lymph % (Auto) Lymph # Seg Neutrophils % Seg Neuts % (Manual) Lymphocytes % (Manual) Seg Neutrophils # Seg Neutrophils # Man Lymphocytes # (Manual) PT INR POC ABG pH POC ABG pCO2 POC ABG pO2 Sodium 134 L 135 L Potassium Chloride 94.4 L 94.0 L Carbon Dioxide BUN 35 H 35 H Creatinine Glucose 151 H 128 H POC Glucose Calcium Magnesium AST Total Creatine Kinase CK-MB (CK-2) Troponin T NT-Pro-B Natriuret Pep Total Protein Albumin HDL Cholesterol 01/25/19 01/25/19 01/25/19 05:15 05:35 11:09 WBC RBC Hgb Hct MCV RDW Plt Count Lymph % (Auto) Lymph # Seg Neutrophils % Seg Neuts % (Manual) Lymphocytes % (Manual) Seg Neutrophils # Seg Neutrophils # Man Lymphocytes # (Manual) PT 18.8 H INR 1.47 H POC ABG pH POC ABG pCO2 POC ABG pO2 Sodium Potassium Chloride Carbon Dioxide BUN Creatinine Glucose POC Glucose 126 H 149 H Calcium Magnesium AST Total Creatine Kinase CK-MB (CK-2) Troponin T NT-Pro-B Natriuret Pep Total Protein Albumin HDL Cholesterol 01/25/19 01/25/19 01/26/19 17:24 23:41 00:09 WBC RBC Hgb Hct MCV RDW Plt Count Lymph % (Auto) Lymph # Seg Neutrophils % Seg Neuts % (Manual) Lymphocytes % (Manual) Seg Neutrophils # Seg Neutrophils # Man Lymphocytes # (Manual) PT INR POC ABG pH POC ABG pCO2 POC ABG pO2 Sodium Potassium Chloride Carbon Dioxide BUN Creatinine Glucose POC Glucose 140 H 142 H 156 H Calcium Magnesium AST Total Creatine Kinase CK-MB (CK-2) Troponin T NT-Pro-B Natriuret Pep Total Protein Albumin HDL Cholesterol 01/26/19 01/26/19 01/26/19 05:05 06:35 06:35 WBC RBC 2.83 L Hgb 8.1 L Hct 24.4 L MCV RDW Plt Count Lymph % (Auto) Lymph # Seg Neutrophils % Seg Neuts % (Manual) Lymphocytes % (Manual) Seg Neutrophils # Seg Neutrophils # Man Lymphocytes # (Manual) PT INR POC ABG pH POC ABG pCO2 POC ABG pO2 Sodium Potassium Chloride 96.9 L Carbon Dioxide BUN 29 H Creatinine Glucose 141 H POC Glucose 159 H Calcium 8.3 L Magnesium AST Total Creatine Kinase CK-MB (CK-2) Troponin T NT-Pro-B Natriuret Pep Total Protein Albumin HDL Cholesterol 01/26/19 01/26/19 01/27/19 13:16 19:10 00:08 WBC RBC Hgb Hct MCV RDW Plt Count Lymph % (Auto) Lymph # Seg Neutrophils % Seg Neuts % (Manual) Lymphocytes % (Manual) Seg Neutrophils # Seg Neutrophils # Man Lymphocytes # (Manual) PT INR POC ABG pH POC ABG pCO2 POC ABG pO2 Sodium Potassium Chloride Carbon Dioxide BUN Creatinine Glucose POC Glucose 159 H 146 H 140 H Calcium Magnesium AST Total Creatine Kinase CK-MB (CK-2) Troponin T NT-Pro-B Natriuret Pep Total Protein Albumin HDL Cholesterol 01/27/19 01/27/19 01/27/19 03:30 03:30 06:23 WBC RBC 2.85 L Hgb 8.3 L Hct 24.8 L MCV RDW Plt Count Lymph % (Auto) Lymph # Seg Neutrophils % Seg Neuts % (Manual) Lymphocytes % (Manual) Seg Neutrophils # Seg Neutrophils # Man Lymphocytes # (Manual) PT INR POC ABG pH POC ABG pCO2 POC ABG pO2 Sodium 136 L Potassium Chloride 97.1 L Carbon Dioxide BUN 26 H Creatinine Glucose 129 H POC Glucose 154 H Calcium Magnesium AST Total Creatine Kinase CK-MB (CK-2) Troponin T NT-Pro-B Natriuret Pep Total Protein Albumin HDL Cholesterol 01/27/19 01/27/19 01/27/19 12:47 17:43 23:31 WBC RBC Hgb Hct MCV RDW Plt Count Lymph % (Auto) Lymph # Seg Neutrophils % Seg Neuts % (Manual) Lymphocytes % (Manual) Seg Neutrophils # Seg Neutrophils # Man Lymphocytes # (Manual) PT INR POC ABG pH POC ABG pCO2 POC ABG pO2 Sodium Potassium Chloride Carbon Dioxide BUN Creatinine Glucose POC Glucose 159 H 180 H 164 H Calcium Magnesium AST Total Creatine Kinase CK-MB (CK-2) Troponin T NT-Pro-B Natriuret Pep Total Protein Albumin HDL Cholesterol 01/28/19 01/28/19 01/28/19 04:35 12:01 12:01 WBC RBC 2.67 L Hgb 7.9 L Hct 22.9 L MCV RDW Plt Count Lymph % (Auto) Lymph # Seg Neutrophils % Seg Neuts % (Manual) Lymphocytes % (Manual) Seg Neutrophils # Seg Neutrophils # Man Lymphocytes # (Manual) PT INR POC ABG pH POC ABG pCO2 POC ABG pO2 Sodium 136 L Potassium 3.5 L Chloride Carbon Dioxide BUN 18 H Creatinine Glucose 143 H POC Glucose 139 H Calcium 8.0 L Magnesium AST Total Creatine Kinase CK-MB (CK-2) Troponin T NT-Pro-B Natriuret Pep Total Protein Albumin HDL Cholesterol 01/28/19 01/28/19 01/28/19 12:04 16:59 17:11 WBC RBC Hgb Hct MCV RDW Plt Count Lymph % (Auto) Lymph # Seg Neutrophils % Seg Neuts % (Manual) Lymphocytes % (Manual) Seg Neutrophils # Seg Neutrophils # Man Lymphocytes # (Manual) PT INR POC ABG pH 7.488 H POC ABG pCO2 34.1 L POC ABG pO2 Sodium Potassium Chloride Carbon Dioxide BUN Creatinine Glucose POC Glucose 143 H 163 H Calcium Magnesium AST Total Creatine Kinase CK-MB (CK-2) Troponin T NT-Pro-B Natriuret Pep Total Protein Albumin HDL Cholesterol 01/29/19 01/29/19 01/29/19 00:10 05:47 12:08 WBC RBC Hgb Hct MCV RDW Plt Count Lymph % (Auto) Lymph # Seg Neutrophils % Seg Neuts % (Manual) Lymphocytes % (Manual) Seg Neutrophils # Seg Neutrophils # Man Lymphocytes # (Manual) PT INR POC ABG pH POC ABG pCO2 POC ABG pO2 Sodium Potassium Chloride Carbon Dioxide BUN Creatinine Glucose POC Glucose 171 H 187 H 137 H Calcium Magnesium AST Total Creatine Kinase CK-MB (CK-2) Troponin T NT-Pro-B Natriuret Pep Total Protein Albumin HDL Cholesterol 01/29/19 01/29/19 01/29/19 16:48 16:54 17:47 WBC RBC Hgb Hct MCV RDW Plt Count Lymph % (Auto) Lymph # Seg Neutrophils % Seg Neuts % (Manual) Lymphocytes % (Manual) Seg Neutrophils # Seg Neutrophils # Man Lymphocytes # (Manual) PT INR POC ABG pH 7.486 H 7.512 H POC ABG pCO2 32.8 L 32.7 L POC ABG pO2 108 H Sodium Potassium Chloride Carbon Dioxide BUN Creatinine Glucose POC Glucose 156 H Calcium Magnesium AST Total Creatine Kinase CK-MB (CK-2) Troponin T NT-Pro-B Natriuret Pep Total Protein Albumin HDL Cholesterol 01/29/19 01/30/19 01/30/19 23:48 06:45 07:18 WBC RBC 2.94 L Hgb 8.6 L Hct 25.7 L MCV RDW Plt Count Lymph % (Auto) Lymph # Seg Neutrophils % Seg Neuts % (Manual) Lymphocytes % (Manual) Seg Neutrophils # Seg Neutrophils # Man Lymphocytes # (Manual) PT INR POC ABG pH POC ABG pCO2 POC ABG pO2 Sodium 135 L Potassium Chloride Carbon Dioxide BUN Creatinine Glucose 141 H POC Glucose 185 H Calcium 8.3 L Magnesium AST Total Creatine Kinase CK-MB (CK-2) Troponin T NT-Pro-B Natriuret Pep Total Protein Albumin HDL Cholesterol 01/30/19 01/30/19 01/30/19 11:17 16:47 18:16 WBC RBC Hgb Hct MCV RDW Plt Count Lymph % (Auto) Lymph # Seg Neutrophils % Seg Neuts % (Manual) Lymphocytes % (Manual) Seg Neutrophils # Seg Neutrophils # Man Lymphocytes # (Manual) PT INR POC ABG pH 7.508 H POC ABG pCO2 31.5 L POC ABG pO2 135 H Sodium Potassium Chloride Carbon Dioxide BUN Creatinine Glucose POC Glucose 170 H 108 H Calcium Magnesium AST Total Creatine Kinase CK-MB (CK-2) Troponin T NT-Pro-B Natriuret Pep Total Protein Albumin HDL Cholesterol 01/30/19 01/31/19 01/31/19 23:38 05:45 12:04 WBC RBC Hgb Hct MCV RDW Plt Count Lymph % (Auto) Lymph # Seg Neutrophils % Seg Neuts % (Manual) Lymphocytes % (Manual) Seg Neutrophils # Seg Neutrophils # Man Lymphocytes # (Manual) PT INR POC ABG pH POC ABG pCO2 POC ABG pO2 Sodium Potassium Chloride Carbon Dioxide BUN Creatinine Glucose POC Glucose 146 H 121 H 152 H Calcium Magnesium AST Total Creatine Kinase CK-MB (CK-2) Troponin T NT-Pro-B Natriuret Pep Total Protein Albumin HDL Cholesterol 01/31/19 01/31/19 02/01/19 17:44 23:58 05:46 WBC RBC Hgb Hct MCV RDW Plt Count Lymph % (Auto) Lymph # Seg Neutrophils % Seg Neuts % (Manual) Lymphocytes % (Manual) Seg Neutrophils # Seg Neutrophils # Man Lymphocytes # (Manual) PT INR POC ABG pH POC ABG pCO2 POC ABG pO2 Sodium Potassium Chloride Carbon Dioxide BUN Creatinine Glucose POC Glucose 153 H 183 H 116 H Calcium Magnesium AST Total Creatine Kinase CK-MB (CK-2) Troponin T NT-Pro-B Natriuret Pep Total Protein Albumin HDL Cholesterol 02/01/19 02/01/19 02/01/19 11:10 12:18 17:48 WBC RBC Hgb Hct MCV RDW Plt Count Lymph % (Auto) Lymph # Seg Neutrophils % Seg Neuts % (Manual) Lymphocytes % (Manual) Seg Neutrophils # Seg Neutrophils # Man Lymphocytes # (Manual) PT INR POC ABG pH POC ABG pCO2 POC ABG pO2 Sodium 133 L Potassium 3.3 L Chloride 96.1 L Carbon Dioxide BUN Creatinine Glucose 145 H POC Glucose 175 H 129 H Calcium 8.3 L Magnesium AST Total Creatine Kinase CK-MB (CK-2) Troponin T NT-Pro-B Natriuret Pep Total Protein Albumin HDL Cholesterol 02/01/19 02/02/19 02/02/19 23:13 05:16 06:00 WBC RBC Hgb Hct MCV RDW Plt Count Lymph % (Auto) Lymph # Seg Neutrophils % Seg Neuts % (Manual) Lymphocytes % (Manual) Seg Neutrophils # Seg Neutrophils # Man Lymphocytes # (Manual) PT INR POC ABG pH POC ABG pCO2 POC ABG pO2 Sodium 135 L Potassium Chloride Carbon Dioxide BUN 18 H Creatinine Glucose 121 H POC Glucose 143 H 140 H Calcium 8.3 L Magnesium 1.60 L AST Total Creatine Kinase CK-MB (CK-2) Troponin T NT-Pro-B Natriuret Pep Total Protein Albumin HDL Cholesterol 02/02/19 02/02/19 02/02/19 12:06 18:23 23:45 WBC RBC Hgb Hct MCV RDW Plt Count Lymph % (Auto) Lymph # Seg Neutrophils % Seg Neuts % (Manual) Lymphocytes % (Manual) Seg Neutrophils # Seg Neutrophils # Man Lymphocytes # (Manual) PT INR POC ABG pH POC ABG pCO2 POC ABG pO2 Sodium Potassium Chloride Carbon Dioxide BUN Creatinine Glucose POC Glucose 156 H 159 H 139 H Calcium Magnesium AST Total Creatine Kinase CK-MB (CK-2) Troponin T NT-Pro-B Natriuret Pep Total Protein Albumin HDL Cholesterol 02/03/19 05:19 WBC RBC Hgb Hct MCV RDW Plt Count Lymph % (Auto) Lymph # Seg Neutrophils % Seg Neuts % (Manual) Lymphocytes % (Manual) Seg Neutrophils # Seg Neutrophils # Man Lymphocytes # (Manual) PT INR POC ABG pH POC ABG pCO2 POC ABG pO2 Sodium Potassium Chloride Carbon Dioxide BUN Creatinine Glucose POC Glucose 147 H Calcium Magnesium AST Total Creatine Kinase CK-MB (CK-2) Troponin T NT-Pro-B Natriuret Pep Total Protein Albumin HDL Cholesterol Allied health notes reviewed: nursing
[2019-02-03] MEDS: PREVACID SOLUTAB FEEDTUBE SCH ×2 (09:37→21:36)
[2019-02-03] MEDS: BABY ASPIRIN PO SCH (09:37)
[2019-02-03] MEDS: LOVENOX SUB-Q SCH (09:38)
[2019-02-03] MEDS: KEPPRA PO SCH ×2 (09:38→21:35)
[2019-02-03] MEDS: COREG PO SCH ×2 (09:38→21:37)
[2019-02-03] MEDS: NORVASC PO SCH (09:39)
[2019-02-03] MEDS: KENALOG TP SCH ×2 (09:40→22:22)
[2019-02-03] MEDS: SODIUM CHLORIDE FLUSH SYRINGE 10 ML IV SCH ×2 (09:40→22:22)
--- NOTE | 2019-02-03 12:43 | Progress Note ---
Assessment and Plan Assessment and plan: Cardiopulmonary arrest. Patient with out of hospital PEA arrest and ROSC. Cardiology following. Acute hypoxemic hypercapnic respiratory failure. Patient previously on mechanical ventilation but has been weaned. Continue ATP trials. Continue trach care. Partial SBO versus ileus. Serial KUB Aspiration pneumonia. Continue IV antibiotics per ID. Aspiration precautions. Sepsis. Tracheal aspirate and blood cultures are negative to date. ID following. Anoxic encephalopathy. EEG 01/17/19 reported as abnormal with minimal brain activity. No epileptiform discharges. Neurology following Oropharyngeal dysphagia. IR consult. We'll obtain a CT of the abdomen and pelvis to determine if patient's anatomy is suitable for percutaneous placement of gastrostomy tube. Acute renal failure. Etiology likely secondary to acute kidney injury from sepsis. Creatinine is stable. Continue to monitor. Pulmonary hypertension. Consider CT of the chest when medically stable. Acute systolic heart failure. Patient with moderate global hypokinesis of left ventricle EF 35-40% and left ventricular systolic function moderately decreased. 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 The aggregate critical care time was [31] minutes. This time is in addition to time spent performing reported procedures but includes the following: [x] Data Review and interpretation [x] Patient assessment and monitoring of vital signs [x] Documentation [x] Medication orders and management History Interval history: Patient is 73 yo with hypertension, CAD s/p stent, COPD/emphesema, not on home Oxygen. She was Brought in by paramedics 01/15/19 after cardiorespiratory arrest at home. History obtained from daughter and granddaughter at bedside. Patient called a family member that she had more shortness of breath . Family member lives in same Apartment complex, same floor, came to her, found her on floor not breathing, started CPR, called paramedics. She was in jhon PEA, given 2 rounds Epinephrine, CPR, intubated , resuscitated, and brought to ED. Patient was seen and evaluated in ED and admitted to ICU. 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 She had seizures later same day, was started on keppra. Shwe had CARMELINA on presentation, resolved in few days. She remained comatose, acute respiratory failure vent dependent. Trach and PEG was recommended. Tracheostomy done 01/25. PEG not done yet because of abdominal distension. She has poor prognosis. may need LTAC Hospitalist Physical - Constitutional Vitals: Temp Pulse Resp BP Pulse Ox 97.4 F L 81 27 H 99/48 100 02/03/19 12:00 02/03/19 12:00 02/03/19 12:00 02/03/19 12:00 02/03/19 12:00 General appearance: Present: other (trached, nonresponsive at time of examination) - EENT Eyes: Present: PERRL, EOM intact ENT: hearing intact, clear oral mucosa, dentition normal - Neck Neck: Present: supple, normal ROM - Respiratory Respiratory effort: normal Respiratory: bilateral: CTA - Cardiovascular Rhythm: regular Heart Sounds: Present: S1 & S2. Absent: gallop, rub - Extremities Extremities: no ischemia, No edema, Full ROM - Abdominal General gastrointestinal: soft, non-tender, non-distended, normal bowel sounds - Integumentary Integumentary: Present: clear, warm, dry - Neurologic Neurologic: other (encephalopathic, obtunded) Results - Labs CBC & Chem 7: 01/30/19 06:45 02/02/19 06:00 Labs: Laboratory Last Values WBC 8.2 K/mm3 (4.5-11.0) 01/30/19 06:45 RBC 2.94 M/mm3 (3.65-5.03) L 01/30/19 06:45 Hgb 8.6 gm/dl (10.1-14.3) L 01/30/19 06:45 Hct 25.7 % (30.3-42.9) L 01/30/19 06:45 MCV 87 fl (79-97) 01/30/19 06:45 MCH 29 pg (28-32) 01/30/19 06:45 MCHC 33 % (30-34) 01/30/19 06:45 RDW 14.6 % (13.2-15.2) 01/30/19 06:45 Plt Count 370 K/mm3 (140-440) 01/30/19 06:45 Lymph % (Auto) 6.3 % (13.4-35.0) L 01/23/19 00:01 [place] % (Auto) 6.6 % (0.0-7.3) 01/23/19 00:01 Eos % (Auto) 0.5 % (0.0-4.3) 01/23/19 00:01 Baso % (Auto) 0.3 % (0.0-1.8) 01/23/19 00:01 Lymph # 0.6 K/mm3 (1.2-5.4) L 01/23/19 00:01 [place] # 0.7 K/mm3 (0.0-0.8) 01/23/19 00:01 Eos # 0.1 K/mm3 (0.0-0.4) 01/23/19 00:01 Baso # 0.0 K/mm3 (0.0-0.1) 01/23/19 00:01 Add Manual Diff Complete 01/16/19 04:16 Total Counted 100 01/16/19 04:16 Seg Neutrophils % 86.3 % (40.0-70.0) H 01/23/19 00:01 Seg Neuts % (Manual) 74.0 % (40.0-70.0) H 01/16/19 04:16 22.0 % 01/16/19 04:16 2.0 % (13.4-35.0) L 01/16/19 04:16 Reactive Lymphs % (Man) 0 % 01/16/19 04:16 2.0 % (0.0-7.3) 01/16/19 04:16 0 % (0.0-4.3) 01/16/19 04:16 0 % (0.0-1.8) 01/16/19 04:16 0 % 01/16/19 04:16 0 % 01/16/19 04:16 0 % 01/16/19 04:16 0 % 01/16/19 04:16 Nucleated RBC % Not Reportable 01/16/19 04:16 Seg Neutrophils # 8.9 K/mm3 (1.8-7.7) H 01/23/19 00:01 Seg Neutrophils # Man 8.4 K/mm3 (1.8-7.7) H 01/16/19 04:16 Band Neutrophils # 2.5 K/mm3 01/16/19 04:16 0.2 K/mm3 (1.2-5.4) L 01/16/19 04:16 Abs React Lymphs (Man) 0.0 K/mm3 01/16/19 04:16 0.2 K/mm3 (0.0-0.8) 01/16/19 04:16 0.0 K/mm3 (0.0-0.4) 01/16/19 04:16 0.0 K/mm3 (0.0-0.1) 01/16/19 04:16 0.0 K/mm3 01/16/19 04:16 0.0 K/mm3 01/16/19 04:16 0.0 K/mm3 01/16/19 04:16 Blast Cells # 0.0 K/mm3 01/16/19 04:16 WBC Morphology Not Reportable 01/16/19 04:16 Hypersegmented Neuts Not Reportable 01/16/19 04:16 Hyposegmented Neuts Not Reportable 01/16/19 04:16 Hypogranular Neuts Not Reportable 01/16/19 04:16 Not Reportable 01/16/19 04:16 Not Reportable 01/16/19 04:16 Not Reportable 01/16/19 04:16 Not Reportable 01/16/19 04:16 Not Reportable 01/16/19 04:16 Not Reportable 01/16/19 04:16 Consistent w auto 01/16/19 04:16 Not Reportable 01/16/19 04:16 Plt Clumps, EDTA Not Reportable 01/16/19 04:16 Not Reportable 01/16/19 04:16 Not Reportable 01/16/19 04:16 Not Reportable 01/16/19 04:16 Plt Morphology Comment Not Reportable 01/16/19 04:16 RBC Morphology Normal 01/16/19 04:16 Dimorphic RBCs Not Reportable 01/16/19 04:16 Not Reportable 01/16/19 04:16 Not Reportable 01/16/19 04:16 Not Reportable 01/16/19 04:16 Not Reportable 01/16/19 04:16 Not Reportable 01/16/19 04:16 Not Reportable 01/16/19 04:16 Not Reportable 01/16/19 04:16 Not Reportable 01/16/19 04:16 Not Reportable 01/16/19 04:16 Not Reportable 01/16/19 04:16 Not Reportable 01/16/19 04:16 Not Reportable 01/16/19 04:16 Not Reportable 01/16/19 04:16 Not Reportable 01/16/19 04:16 Not Reportable 01/16/19 04:16 Not Reportable 01/16/19 04:16 Not Reportable 01/16/19 04:16 Not Reportable 01/16/19 04:16 Not Reportable 01/16/19 04:16 Acanthocytes (Spur) Not Reportable 01/16/19 04:16 Rouleaux Not Reportable 01/16/19 04:16 Not Reportable 01/16/19 04:16 Not Reportable 01/16/19 04:16 Not Reportable 01/16/19 04:16 Not Reportable 01/16/19 04:16 Hem Pathologist Commnt No 01/16/19 04:16 PT 18.8 Sec. (12.2-14.9) H 01/25/19 05:15 INR 1.47 (0.87-1.13) H 01/25/19 05:15 APTT 36.0 Sec. (24.2-36.6) 01/15/19 07:50 Heparin Anti-Xa, Unfract Negative (Negative) 01/19/19 Unknown POC ABG pH 7.508 (7.35-7.45) H 01/30/19 16:47 POC ABG pCO2 31.5 (35-45) L 01/30/19 16:47 POC ABG pO2 135 (80-105) H 01/30/19 16:47 POC ABG HCO3 25.0 (22-26 mml/L) 01/30/19 16:47 POC ABG Total CO2 26 (23-27mmol/L) 01/30/19 16:47 POC ABG O2 Sat 99 01/30/19 16:47 POC ABG Base Excess 2 ((-2) - (+3)mmol/L) 01/30/19 16:47 28 % 01/30/19 16:47 Sodium 135 mmol/L (137-145) L 02/02/19 06:00 Potassium 4.2 mmol/L (3.6-5.0) D 02/02/19 06:00 Chloride 98.2 mmol/L (98-107) 02/02/19 06:00 Carbon Dioxide 25 mmol/L (22-30) 02/02/19 06:00 16 mmol/L 02/02/19 06:00 BUN 18 mg/dL (7-17) H 02/02/19 06:00 0.7 mg/dL (0.7-1.2) 02/02/19 06:00 Estimated GFR > 60 ml/min 02/02/19 06:00 26 % 02/02/19 06:00 Glucose 121 mg/dL (65-100) H 02/02/19 06:00 POC Glucose 163 (70-105) H 02/03/19 12:02 6.0 % (4-6) 01/15/19 11:53 Calcium 8.3 mg/dL (8.4-10.2) L 02/02/19 06:00 Phosphorus 3.10 mg/dL (2.5-4.5) 02/02/19 06:00 Magnesium 1.60 mg/dL (1.7-2.3) L 02/02/19 06:00 0.30 mg/dL (0.1-1.2) 01/23/19 Unknown AST 88 units/L (5-40) H 01/23/19 Unknown ALT 31 units/L (7-56) 01/23/19 Unknown 48 units/L (35-129) 01/23/19 Unknown 1430 units/L (30-135) H 01/15/19 17:52 CK-MB (CK-2) 13.5 ng/mL (0.0-4.0) H 01/15/19 17:52 CK-MB (CK-2) Rel Index 0.9 (0-4) 01/15/19 17:52 0.036 ng/mL (0.00-0.029) H D 01/15/19 17:52 NT-Pro-B Natriuret Pep 5346 pg/mL (0-900) H 01/15/19 07:50 6.0 g/dL (6.3-8.2) L 01/23/19 Unknown 2.9 g/dL (3.9-5) L 01/23/19 Unknown 0.9 % 01/23/19 Unknown Triglycerides 75 mg/dL (2-149) 01/15/19 17:52 Cholesterol 149 mg/dL (50-199) 01/15/19 17:52 84 mg/dL (50-130) 01/15/19 17:52 65 mg/dL (40-59) H 01/15/19 17:52 2.29 % 01/15/19 17:52 See scanned report 01/19/19 Unknown Yellow (Yellow) 01/21/19 16:10 Clear (Clear) 01/21/19 16:10 6.0 (5.0-7.0) 01/21/19 16:10 Ur Specific [place] 1.015 (1.003-1.030) 01/21/19 16:10 <15 mg/dl mg/dL (Negative) 01/21/19 16:10 Neg mg/dL (Negative) 01/21/19 16:10 Neg mg/dL (Negative) 01/21/19 16:10 Neg (Negative) 01/21/19 16:10 Neg (Negative) 01/21/19 16:10 Neg (Negative) 01/21/19 16:10 2.0 mg/dL (<2.0) 01/21/19 16:10 Ur Leukocyte Esterase Neg (Negative) 01/21/19 16:10 1.0 /HPF (0.0-6.0) 01/21/19 16:10 5.0 /HPF (0.0-6.0) 01/21/19 16:10 Presumptive negative 01/15/19 16:30 Presumptive negative 01/15/19 16:30 Ur Barbiturates Screen Presumptive negative 01/15/19 16:30 Ur Phencyclidine Scrn Presumptive negative 01/15/19 16:30 Ur Amphetamines Screen Presumptive negative 01/15/19 16:30 U Benzodiazepines Scrn Presumptive negative 01/15/19 16:30 Presumptive negative 01/15/19 16:30 U Marijuana (THC) Screen Presumptive negative 01/15/19 16:30 Disclamer 01/15/19 16:30 Heparin-induced Plt Ab Negative (Negative) 01/19/19 Unknown UF Heparin High Dose 3 % Release 01/19/19 Unknown JOSEFA UFH Low Dose 0.1 4 % Release 01/19/19 Unknown JOSEFA UFH Low Dose 0.5 5 % Release 01/19/19 Unknown C. difficile Tox (PCR) Negative (Negative) 01/16/19 00:00 Active Medications - Current Medications Current Medications: Generic Name Dose Route Start Last Admin Trade Name Freq PRN Reason Stop Dose Admin Acetaminophen 650 mg 01/16/19 09:37 01/20/19 00:24 Tylenol PO 650 mg Q4H PRN Administration Fever >101 Albuterol/Ipratropium 1 ampul 01/15/19 14:00 02/03/19 08:08 Duoneb *Not For Prn Use* IH 1 ampul Q6HRT DEON Administration Amlodipine Besylate 10 mg 01/24/19 12:00 02/03/19 09:39 Norvasc PO 10 mg DAILY DEON Administration Lipase/Protease/Amylase 1 each 02/02/19 14:21 Pancreaze 10,500 Unit FEEDTUBE PRN PRN For Clogged Feeding Tube Aspirin 81 mg 01/16/19 10:00 02/03/19 09:37 Baby Aspirin PO 81 mg QDAY DEON Administration Atorvastatin Calcium 20 mg 01/16/19 22:00 02/02/19 21:24 Lipitor PO 20 mg QHS DEON Administration Carvedilol 12.5 mg 01/24/19 22:00 02/03/19 09:38 Coreg PO 12.5 mg BID DEON Administration Enoxaparin Sodium 40 mg 01/30/19 10:00 02/03/19 09:38 Lovenox SUB-Q 40 mg QDAY@1000 DEON Administration Furosemide 20 mg 01/19/19 18:00 02/03/19 05:35 Lasix PO 20 mg 0600,1800 DEON Administration Insulin Human Lispro 0 unit 01/22/19 14:00 02/03/19 05:34 Humalog SUB-Q Not Given Q6HR [facility] Protocol Lansoprazole 30 mg 01/30/19 10:00 02/03/19 09:37 Prevacid Solutab FEEDTUBE 30 mg BID DEON Administration Levetiracetam 750 mg 01/18/19 10:00 02/03/19 09:38 Keppra PO 750 mg BID DEON Administration Metoclopramide HCl 10 mg 02/01/19 14:00 02/03/19 05:36 Reglan IV 10 mg Q8HR DEON Administration Simple Syrup 15 ml 02/02/19 14:21 Simple Syrup FEEDTUBE PRN PRN Hypoglycemia Simple Syrup 30 ml 02/02/19 14:21 Simple Syrup FEEDTUBE PRN PRN Hypoglycemia Sodium Bicarbonate 325 mg 02/02/19 14:21 Sodium Bicarbonate FEEDTUBE PRN PRN For Clogged Feeding Tube Sodium Chloride 10 ml 01/15/19 22:00 02/03/19 09:40 Sodium Chloride Flush Syringe 10 Ml IV 10 ml BID DEON Administration Sodium Chloride 10 ml 01/15/19 10:34 01/29/19 12:43 Sodium Chloride Flush Syringe 10 Ml IV 10 ml PRN PRN Administration LINE FLUSH Triamcinolone Acetonide 1 applic 01/24/19 14:00 02/03/19 09:40 Kenalog TP 1 applic BID DEON Administration Nutrition/Malnutrition Assess - Dietary Evaluation Nutrition/Malnutrition Findings: Nutrition Notes Start: 01/15/19 14:28 Freq: Status: Active Protocol: Document 02/02/19 14:15 RM (Rec: 02/02/19 14:21 RM [id number]) Nutrition Notes Initial or Follow up Reassessment Current Diagnosis Acute Kidney Injury,Heart Failure,Respiratory Failure Other Pertinent Diagnosis Ileus, dysphagia, s/p cardiorespiratory arrest (at home) Current Diet Glucerna 1.2 at 5 ml/hr Labs/Tests Na 135 Pertinent Medications D5 1/2NS + 20mEq KCl at 50ml/ hr, Leeann Rogers Height 5 ft 4 in Weight 48.5 kg [place] Body Weight (kg) 54.54 BMI 18.3 Subjective/Other Information Pt had several BMs last night. During rounds MD ordered D/C of TPN and to resume TF. Burn Absent Trauma Absent #1 Nutrition Diagnosis Inadequate oral intake Diagnosis Progress(for reassessment Continues documentation) Is patient on ventilator? Yes Is Patient Ambulatory and/or Out of Bed No REE-([facility]-confined to bed) 1164.624 Kcal/Kg value to use for calculation 35 Approximate Energy Requirements Using 1698 kcal/Kg Calculation Used for Recommendations Kcal/kg Additional Notes Pro needs 1.2-2g/k-92g/ day Fluid needs 1ml/kcal Nutrition Intervention Nutrition Support: Glucerna 1.2 at 50ml/hr with 80ml water flush q4h. Kcal 1,440 Protein (gm) 72 Carbohydrates (gm) 137 Fluid (mL) 966 Fiber (gm) 19 Goal #1 Meet at least 80% of calorie and protein needs via TF Goal #2 Wt maintenance and/or gain Follow-Up By: 02/05/19 Additional Comments Follow for TF tolerance
--- NOTE | 2019-02-03 13:30 | Progress Note ---
Subjective Date of service: 02/03/19 Principal diagnosis: OOH cardiac arrest; Acute hypoxemic-hypercapnic Resp failure; PNA Interval history: ntervasl neuro assess. no basic improvement at this point of anoxia prognosis is nil advise LTAC Objective - Vital Sign Vital Signs - 12hr 02/03/19 02/03/19 02/03/19 02:00 02:10 02:39 Temperature Pulse Rate 75 75 Pulse Rate [ 73 From Monitor] Pulse Rate [ 72 Throughout] Respiratory 16 24 Rate Respiratory 13 Rate [ Throughout] Blood Pressure 102/57 O2 Sat by Pulse 100 100 Oximetry O2 Sat by Pulse Oximetry [ Assessment] 02/03/19 02/03/19 02/03/19 03:00 03:12 04:00 Temperature 98.8 F Pulse Rate 75 78 Pulse Rate [ From Monitor] Pulse Rate [ Throughout] Respiratory 27 H 24 Rate Respiratory Rate [ Throughout] Blood Pressure 102/57 99/57 O2 Sat by Pulse 100 98 Oximetry O2 Sat by Pulse Oximetry [ Assessment] 02/03/19 02/03/19 02/03/19 04:16 04:38 05:00 Temperature Pulse Rate 78 74 74 Pulse Rate [ 78 From Monitor] Pulse Rate [ Throughout] Respiratory 20 18 Rate Respiratory Rate [ Throughout] Blood Pressure 110/61 O2 Sat by Pulse 100 100 Oximetry O2 Sat by Pulse Oximetry [ Assessment] 02/03/19 02/03/19 02/03/19 05:31 06:00 07:00 Temperature Pulse Rate 74 73 Pulse Rate [ From Monitor] Pulse Rate [ Throughout] Respiratory 20 17 21 Rate Respiratory Rate [ Throughout] Blood Pressure 107/57 105/57 O2 Sat by Pulse 100 100 Oximetry O2 Sat by Pulse Oximetry [ Assessment] 02/03/19 02/03/19 02/03/19 08:00 08:06 08:10 Temperature 97.5 F L Pulse Rate 70 Pulse Rate [ From Monitor] Pulse Rate [ 72 Throughout] Respiratory 20 Rate Respiratory 16 Rate [ Throughout] Blood Pressure 107/57 O2 Sat by Pulse 100 100 Oximetry O2 Sat by Pulse 100 Oximetry [ Assessment] 02/03/19 02/03/19 02/03/19 08:28 09:00 09:38 Temperature Pulse Rate 75 77 Pulse Rate [ From Monitor] Pulse Rate [ 75 Throughout] Respiratory 30 H Rate Respiratory 18 Rate [ Throughout] Blood Pressure 102/58 102/58 O2 Sat by Pulse 100 Oximetry O2 Sat by Pulse Oximetry [ Assessment] 02/03/19 02/03/19 02/03/19 09:39 10:00 11:00 Temperature Pulse Rate 76 85 83 Pulse Rate [ From Monitor] Pulse Rate [ Throughout] Respiratory 27 H 23 Rate Respiratory Rate [ Throughout] Blood Pressure 102/58 108/60 106/55 O2 Sat by Pulse 100 97 Oximetry O2 Sat by Pulse Oximetry [ Assessment] 02/03/19 02/03/19 12:00 12:49 Temperature 97.4 F L Pulse Rate 81 Pulse Rate [ From Monitor] Pulse Rate [ Throughout] Respiratory 27 H Rate Respiratory Rate [ Throughout] Blood Pressure 99/48 O2 Sat by Pulse 100 Oximetry O2 Sat by Pulse 100 Oximetry [ Assessment] - Laboratory Findings CBC and BMP: 01/30/19 06:45 02/02/19 06:00 Abnormal Lab Findings: Abnormal Labs 01/15/19 01/15/19 01/15/19 07:50 07:50 07:50 WBC RBC Hgb Hct MCV 99 H RDW 16.7 H Plt Count 122 L Lymph % (Auto) Lymph # Seg Neutrophils % Seg Neuts % (Manual) Lymphocytes % (Manual) Seg Neutrophils # Seg Neutrophils # Man Lymphocytes # (Manual) PT 19.7 H INR 1.56 H POC ABG pH POC ABG pCO2 POC ABG pO2 Sodium Potassium Chloride Carbon Dioxide 11 L BUN Creatinine 1.4 H Glucose 268 H POC Glucose Calcium Magnesium AST 57 H Total Creatine Kinase CK-MB (CK-2) Troponin T NT-Pro-B Natriuret Pep 5346 H Total Protein Albumin 3.6 L HDL Cholesterol 01/15/19 01/15/19 01/15/19 09:56 11:53 17:52 WBC RBC Hgb Hct MCV RDW Plt Count Lymph % (Auto) Lymph # Seg Neutrophils % Seg Neuts % (Manual) Lymphocytes % (Manual) Seg Neutrophils # Seg Neutrophils # Man Lymphocytes # (Manual) PT INR POC ABG pH 7.186 L POC ABG pCO2 46.4 H POC ABG pO2 Sodium Potassium Chloride Carbon Dioxide BUN Creatinine Glucose POC Glucose Calcium Magnesium AST Total Creatine Kinase 683 H 1430 H CK-MB (CK-2) 9.5 H 13.5 H Troponin T 0.036 H D NT-Pro-B Natriuret Pep Total Protein Albumin HDL Cholesterol 65 H 04/01/15/19 01/16/19 18:31 21:46 02:14 WBC RBC Hgb Hct MCV RDW Plt Count Lymph % (Auto) Lymph # Seg Neutrophils % Seg Neuts % (Manual) Lymphocytes % (Manual) Seg Neutrophils # Seg Neutrophils # Man Lymphocytes # (Manual) PT INR POC ABG pH POC ABG pCO2 31.8 L POC ABG pO2 167 H Sodium Potassium Chloride Carbon Dioxide BUN Creatinine Glucose POC Glucose 134 H 136 H Calcium Magnesium AST Total Creatine Kinase CK-MB (CK-2) Troponin T NT-Pro-B Natriuret Pep Total Protein Albumin HDL Cholesterol 01/16/19 01/16/19 01/16/19 04:16 04:16 05:05 WBC 11.4 H RBC Hgb Hct MCV RDW Plt Count 105 L Lymph % (Auto) Lymph # Seg Neutrophils % Seg Neuts % (Manual) 74.0 H Lymphocytes % (Manual) 2.0 L Seg Neutrophils # Seg Neutrophils # Man 8.4 H Lymphocytes # (Manual) 0.2 L PT INR POC ABG pH 7.458 H POC ABG pCO2 31.4 L POC ABG pO2 135 H Sodium Potassium 3.3 L Chloride Carbon Dioxide 21 L D BUN 24 H Creatinine 1.5 H Glucose 141 H POC Glucose Calcium 8.1 L Magnesium AST 71 H Total Creatine Kinase CK-MB (CK-2) Troponin T NT-Pro-B Natriuret Pep Total Protein 6.2 L Albumin 3.5 L HDL Cholesterol 01/16/19 01/16/19 01/16/19 05:24 13:42 21:08 WBC RBC Hgb Hct MCV RDW Plt Count Lymph % (Auto) Lymph # Seg Neutrophils % Seg Neuts % (Manual) Lymphocytes % (Manual) Seg Neutrophils # Seg Neutrophils # Man Lymphocytes # (Manual) PT INR POC ABG pH POC ABG pCO2 POC ABG pO2 Sodium Potassium Chloride Carbon Dioxide BUN Creatinine Glucose POC Glucose 137 H 129 H 122 H Calcium Magnesium AST Total Creatine Kinase CK-MB (CK-2) Troponin T NT-Pro-B Natriuret Pep Total Protein Albumin HDL Cholesterol 01/17/19 01/17/19 01/17/19 02:18 04:23 05:13 WBC RBC Hgb Hct MCV RDW Plt Count Lymph % (Auto) Lymph # Seg Neutrophils % Seg Neuts % (Manual) Lymphocytes % (Manual) Seg Neutrophils # Seg Neutrophils # Man Lymphocytes # (Manual) PT INR POC ABG pH 7.479 H POC ABG pCO2 30.0 L POC ABG pO2 141 H Sodium Potassium Chloride Carbon Dioxide BUN Creatinine Glucose POC Glucose 139 H 128 H Calcium Magnesium AST Total Creatine Kinase CK-MB (CK-2) Troponin T NT-Pro-B Natriuret Pep Total Protein Albumin HDL Cholesterol 01/17/19 01/17/19 01/17/19 10:22 15:59 18:45 WBC RBC Hgb Hct MCV RDW Plt Count Lymph % (Auto) Lymph # Seg Neutrophils % Seg Neuts % (Manual) Lymphocytes % (Manual) Seg Neutrophils # Seg Neutrophils # Man Lymphocytes # (Manual) PT INR POC ABG pH POC ABG pCO2 POC ABG pO2 Sodium Potassium Chloride Carbon Dioxide BUN Creatinine Glucose POC Glucose 133 H 121 H 106 H Calcium Magnesium AST Total Creatine Kinase CK-MB (CK-2) Troponin T NT-Pro-B Natriuret Pep Total Protein Albumin HDL Cholesterol 01/17/19 01/18/19 01/18/19 23:35 04:21 04:21 WBC RBC 3.27 L Hgb 9.6 L Hct 29.9 L MCV RDW Plt Count 79 L Lymph % (Auto) 6.0 L Lymph # 0.5 L Seg Neutrophils % 89.2 H Seg Neuts % (Manual) Lymphocytes % (Manual) Seg Neutrophils # 8.1 H Seg Neutrophils # Man Lymphocytes # (Manual) PT INR POC ABG pH POC ABG pCO2 POC ABG pO2 Sodium Potassium Chloride Carbon Dioxide BUN 28 H Creatinine 1.3 H Glucose 129 H POC Glucose 121 H Calcium Magnesium AST 120 H Total Creatine Kinase CK-MB (CK-2) Troponin T NT-Pro-B Natriuret Pep Total Protein 5.1 L Albumin 3.0 L HDL Cholesterol 01/18/19 01/18/19 01/18/19 04:21 04:36 05:43 WBC RBC Hgb Hct MCV RDW Plt Count Lymph % (Auto) Lymph # Seg Neutrophils % Seg Neuts % (Manual) Lymphocytes % (Manual) Seg Neutrophils # Seg Neutrophils # Man Lymphocytes # (Manual) PT INR POC ABG pH 7.485 H POC ABG pCO2 31.0 L POC ABG pO2 126 H Sodium Potassium Chloride Carbon Dioxide BUN 28 H Creatinine 1.3 H Glucose 128 H POC Glucose 142 H Calcium Magnesium AST Total Creatine Kinase CK-MB (CK-2) Troponin T NT-Pro-B Natriuret Pep Total Protein Albumin HDL Cholesterol 01/18/19 01/18/19 01/18/19 12:04 18:16 20:47 WBC RBC Hgb Hct MCV RDW Plt Count Lymph % (Auto) Lymph # Seg Neutrophils % Seg Neuts % (Manual) Lymphocytes % (Manual) Seg Neutrophils # Seg Neutrophils # Man Lymphocytes # (Manual) PT INR POC ABG pH 7.489 H POC ABG pCO2 32.8 L POC ABG pO2 Sodium Potassium Chloride Carbon Dioxide BUN Creatinine Glucose POC Glucose 113 H 119 H Calcium Magnesium AST Total Creatine Kinase CK-MB (CK-2) Troponin T NT-Pro-B Natriuret Pep Total Protein Albumin HDL Cholesterol 01/19/19 01/19/19 01/19/19 00:40 05:35 11:39 WBC RBC Hgb Hct MCV RDW Plt Count Lymph % (Auto) Lymph # Seg Neutrophils % Seg Neuts % (Manual) Lymphocytes % (Manual) Seg Neutrophils # Seg Neutrophils # Man Lymphocytes # (Manual) PT INR POC ABG pH POC ABG pCO2 POC ABG pO2 Sodium Potassium Chloride Carbon Dioxide BUN Creatinine Glucose POC Glucose 137 H 157 H 155 H Calcium Magnesium AST Total Creatine Kinase CK-MB (CK-2) Troponin T NT-Pro-B Natriuret Pep Total Protein Albumin HDL Cholesterol 01/19/19 01/19/19 01/19/19 18:24 21:08 23:33 WBC RBC Hgb Hct MCV RDW Plt Count Lymph % (Auto) Lymph # Seg Neutrophils % Seg Neuts % (Manual) Lymphocytes % (Manual) Seg Neutrophils # Seg Neutrophils # Man Lymphocytes # (Manual) PT INR POC ABG pH 7.508 H POC ABG pCO2 34.2 L POC ABG pO2 Sodium Potassium Chloride Carbon Dioxide BUN Creatinine Glucose POC Glucose 145 H 156 H Calcium Magnesium AST Total Creatine Kinase CK-MB (CK-2) Troponin T NT-Pro-B Natriuret Pep Total Protein Albumin HDL Cholesterol 01/20/19 01/20/19 01/20/19 05:12 11:42 17:36 WBC RBC Hgb Hct MCV RDW Plt Count Lymph % (Auto) Lymph # Seg Neutrophils % Seg Neuts % (Manual) Lymphocytes % (Manual) Seg Neutrophils # Seg Neutrophils # Man Lymphocytes # (Manual) PT INR POC ABG pH POC ABG pCO2 POC ABG pO2 Sodium Potassium Chloride Carbon Dioxide BUN Creatinine Glucose POC Glucose 152 H 159 H 169 H Calcium Magnesium AST Total Creatine Kinase CK-MB (CK-2) Troponin T NT-Pro-B Natriuret Pep Total Protein Albumin HDL Cholesterol 01/20/19 01/21/19 01/21/19 23:29 05:30 05:34 WBC RBC Hgb Hct MCV RDW Plt Count Lymph % (Auto) Lymph # Seg Neutrophils % Seg Neuts % (Manual) Lymphocytes % (Manual) Seg Neutrophils # Seg Neutrophils # Man Lymphocytes # (Manual) PT INR POC ABG pH 7.616 H POC ABG pCO2 POC ABG pO2 71 L Sodium Potassium Chloride Carbon Dioxide BUN Creatinine Glucose POC Glucose 139 H 138 H Calcium Magnesium AST Total Creatine Kinase CK-MB (CK-2) Troponin T NT-Pro-B Natriuret Pep Total Protein Albumin HDL Cholesterol 01/21/19 01/21/19 01/22/19 12:41 18:47 00:07 WBC RBC Hgb Hct MCV RDW Plt Count Lymph % (Auto) Lymph # Seg Neutrophils % Seg Neuts % (Manual) Lymphocytes % (Manual) Seg Neutrophils # Seg Neutrophils # Man Lymphocytes # (Manual) PT INR POC ABG pH POC ABG pCO2 POC ABG pO2 Sodium Potassium Chloride Carbon Dioxide BUN Creatinine Glucose POC Glucose 154 H 174 H 163 H Calcium Magnesium AST Total Creatine Kinase CK-MB (CK-2) Troponin T NT-Pro-B Natriuret Pep Total Protein Albumin HDL Cholesterol 01/22/19 01/22/19 01/22/19 04:35 05:46 12:18 WBC RBC Hgb Hct MCV RDW Plt Count Lymph % (Auto) Lymph # Seg Neutrophils % Seg Neuts % (Manual) Lymphocytes % (Manual) Seg Neutrophils # Seg Neutrophils # Man Lymphocytes # (Manual) PT INR POC ABG pH 7.522 H POC ABG pCO2 POC ABG pO2 Sodium Potassium Chloride Carbon Dioxide BUN Creatinine Glucose POC Glucose 159 H 137 H Calcium Magnesium AST Total Creatine Kinase CK-MB (CK-2) Troponin T NT-Pro-B Natriuret Pep Total Protein Albumin HDL Cholesterol 01/22/19 01/22/19 01/22/19 15:00 15:00 18:13 WBC RBC 2.92 L Hgb 8.4 L Hct 25.6 L MCV RDW Plt Count Lymph % (Auto) Lymph # Seg Neutrophils % Seg Neuts % (Manual) Lymphocytes % (Manual) Seg Neutrophils # Seg Neutrophils # Man Lymphocytes # (Manual) PT INR POC ABG pH POC ABG pCO2 POC ABG pO2 Sodium Potassium Chloride 97.0 L Carbon Dioxide BUN 37 H Creatinine Glucose 162 H POC Glucose 159 H Calcium 8.2 L Magnesium AST Total Creatine Kinase CK-MB (CK-2) Troponin T NT-Pro-B Natriuret Pep Total Protein Albumin HDL Cholesterol 01/22/19 01/23/19 01/23/19 22:45 00:01 05:10 WBC RBC 2.92 L Hgb 8.5 L Hct 25.4 L MCV RDW Plt Count Lymph % (Auto) 6.3 L Lymph # 0.6 L Seg Neutrophils % 86.3 H Seg Neuts % (Manual) Lymphocytes % (Manual) Seg Neutrophils # 8.9 H Seg Neutrophils # Man Lymphocytes # (Manual) PT INR POC ABG pH POC ABG pCO2 POC ABG pO2 Sodium Potassium Chloride Carbon Dioxide BUN Creatinine Glucose POC Glucose 178 H 155 H Calcium Magnesium AST Total Creatine Kinase CK-MB (CK-2) Troponin T NT-Pro-B Natriuret Pep Total Protein Albumin HDL Cholesterol 01/23/19 01/23/19 01/23/19 11:31 17:49 Unknown WBC RBC Hgb Hct MCV RDW Plt Count Lymph % (Auto) Lymph # Seg Neutrophils % Seg Neuts % (Manual) Lymphocytes % (Manual) Seg Neutrophils # Seg Neutrophils # Man Lymphocytes # (Manual) PT INR POC ABG pH POC ABG pCO2 POC ABG pO2 Sodium Potassium Chloride 95.4 L Carbon Dioxide BUN 37 H Creatinine Glucose 144 H POC Glucose 161 H 142 H Calcium Magnesium AST 88 H Total Creatine Kinase CK-MB (CK-2) Troponin T NT-Pro-B Natriuret Pep Total Protein 6.0 L Albumin 2.9 L HDL Cholesterol 01/24/19 01/24/19 01/24/19 00:21 05:36 12:35 WBC RBC Hgb Hct MCV RDW Plt Count Lymph % (Auto) Lymph # Seg Neutrophils % Seg Neuts % (Manual) Lymphocytes % (Manual) Seg Neutrophils # Seg Neutrophils # Man Lymphocytes # (Manual) PT INR POC ABG pH POC ABG pCO2 POC ABG pO2 Sodium Potassium Chloride Carbon Dioxide BUN Creatinine Glucose POC Glucose 163 H 147 H 263 H Calcium Magnesium AST Total Creatine Kinase CK-MB (CK-2) Troponin T NT-Pro-B Natriuret Pep Total Protein Albumin HDL Cholesterol 01/24/19 01/24/19 01/24/19 17:46 23:07 Unknown WBC RBC 2.90 L Hgb 8.3 L Hct 25.0 L MCV RDW Plt Count Lymph % (Auto) Lymph # Seg Neutrophils % Seg Neuts % (Manual) Lymphocytes % (Manual) Seg Neutrophils # Seg Neutrophils # Man Lymphocytes # (Manual) PT INR POC ABG pH POC ABG pCO2 POC ABG pO2 Sodium Potassium Chloride Carbon Dioxide BUN Creatinine Glucose POC Glucose 161 H 167 H Calcium Magnesium AST Total Creatine Kinase CK-MB (CK-2) Troponin T NT-Pro-B Natriuret Pep Total Protein Albumin HDL Cholesterol 01/24/19 01/25/19 01/25/19 Unknown 05:15 05:15 WBC RBC 2.90 L Hgb 8.4 L Hct 25.2 L MCV RDW Plt Count Lymph % (Auto) Lymph # Seg Neutrophils % Seg Neuts % (Manual) Lymphocytes % (Manual) Seg Neutrophils # Seg Neutrophils # Man Lymphocytes # (Manual) PT INR POC ABG pH POC ABG pCO2 POC ABG pO2 Sodium 134 L 135 L Potassium Chloride 94.4 L 94.0 L Carbon Dioxide BUN 35 H 35 H Creatinine Glucose 151 H 128 H POC Glucose Calcium Magnesium AST Total Creatine Kinase CK-MB (CK-2) Troponin T NT-Pro-B Natriuret Pep Total Protein Albumin HDL Cholesterol 01/25/19 01/25/19 01/25/19 05:15 05:35 11:09 WBC RBC Hgb Hct MCV RDW Plt Count Lymph % (Auto) Lymph # Seg Neutrophils % Seg Neuts % (Manual) Lymphocytes % (Manual) Seg Neutrophils # Seg Neutrophils # Man Lymphocytes # (Manual) PT 18.8 H INR 1.47 H POC ABG pH POC ABG pCO2 POC ABG pO2 Sodium Potassium Chloride Carbon Dioxide BUN Creatinine Glucose POC Glucose 126 H 149 H Calcium Magnesium AST Total Creatine Kinase CK-MB (CK-2) Troponin T NT-Pro-B Natriuret Pep Total Protein Albumin HDL Cholesterol 01/25/19 01/25/19 01/26/19 17:24 23:41 00:09 WBC RBC Hgb Hct MCV RDW Plt Count Lymph % (Auto) Lymph # Seg Neutrophils % Seg Neuts % (Manual) Lymphocytes % (Manual) Seg Neutrophils # Seg Neutrophils # Man Lymphocytes # (Manual) PT INR POC ABG pH POC ABG pCO2 POC ABG pO2 Sodium Potassium Chloride Carbon Dioxide BUN Creatinine Glucose POC Glucose 140 H 142 H 156 H Calcium Magnesium AST Total Creatine Kinase CK-MB (CK-2) Troponin T NT-Pro-B Natriuret Pep Total Protein Albumin HDL Cholesterol 01/26/19 01/26/19 01/26/19 05:05 06:35 06:35 WBC RBC 2.83 L Hgb 8.1 L Hct 24.4 L MCV RDW Plt Count Lymph % (Auto) Lymph # Seg Neutrophils % Seg Neuts % (Manual) Lymphocytes % (Manual) Seg Neutrophils # Seg Neutrophils # Man Lymphocytes # (Manual) PT INR POC ABG pH POC ABG pCO2 POC ABG pO2 Sodium Potassium Chloride 96.9 L Carbon Dioxide BUN 29 H Creatinine Glucose 141 H POC Glucose 159 H Calcium 8.3 L Magnesium AST Total Creatine Kinase CK-MB (CK-2) Troponin T NT-Pro-B Natriuret Pep Total Protein Albumin HDL Cholesterol 01/26/19 01/26/19 01/27/19 13:16 19:10 00:08 WBC RBC Hgb Hct MCV RDW Plt Count Lymph % (Auto) Lymph # Seg Neutrophils % Seg Neuts % (Manual) Lymphocytes % (Manual) Seg Neutrophils # Seg Neutrophils # Man Lymphocytes # (Manual) PT INR POC ABG pH POC ABG pCO2 POC ABG pO2 Sodium Potassium Chloride Carbon Dioxide BUN Creatinine Glucose POC Glucose 159 H 146 H 140 H Calcium Magnesium AST Total Creatine Kinase CK-MB (CK-2) Troponin T NT-Pro-B Natriuret Pep Total Protein Albumin HDL Cholesterol 01/27/19 01/27/19 01/27/19 03:30 03:30 06:23 WBC RBC 2.85 L Hgb 8.3 L Hct 24.8 L MCV RDW Plt Count Lymph % (Auto) Lymph # Seg Neutrophils % Seg Neuts % (Manual) Lymphocytes % (Manual) Seg Neutrophils # Seg Neutrophils # Man Lymphocytes # (Manual) PT INR POC ABG pH POC ABG pCO2 POC ABG pO2 Sodium 136 L Potassium Chloride 97.1 L Carbon Dioxide BUN 26 H Creatinine Glucose 129 H POC Glucose 154 H Calcium Magnesium AST Total Creatine Kinase CK-MB (CK-2) Troponin T NT-Pro-B Natriuret Pep Total Protein Albumin HDL Cholesterol 01/27/19 01/27/19 01/27/19 12:47 17:43 23:31 WBC RBC Hgb Hct MCV RDW Plt Count Lymph % (Auto) Lymph # Seg Neutrophils % Seg Neuts % (Manual) Lymphocytes % (Manual) Seg Neutrophils # Seg Neutrophils # Man Lymphocytes # (Manual) PT INR POC ABG pH POC ABG pCO2 POC ABG pO2 Sodium Potassium Chloride Carbon Dioxide BUN Creatinine Glucose POC Glucose 159 H 180 H 164 H Calcium Magnesium AST Total Creatine Kinase CK-MB (CK-2) Troponin T NT-Pro-B Natriuret Pep Total Protein Albumin HDL Cholesterol 01/28/19 01/28/19 01/28/19 04:35 12:01 12:01 WBC RBC 2.67 L Hgb 7.9 L Hct 22.9 L MCV RDW Plt Count Lymph % (Auto) Lymph # Seg Neutrophils % Seg Neuts % (Manual) Lymphocytes % (Manual) Seg Neutrophils # Seg Neutrophils # Man Lymphocytes # (Manual) PT INR POC ABG pH POC ABG pCO2 POC ABG pO2 Sodium 136 L Potassium 3.5 L Chloride Carbon Dioxide BUN 18 H Creatinine Glucose 143 H POC Glucose 139 H Calcium 8.0 L Magnesium AST Total Creatine Kinase CK-MB (CK-2) Troponin T NT-Pro-B Natriuret Pep Total Protein Albumin HDL Cholesterol 01/28/19 01/28/19 01/28/19 12:04 16:59 17:11 WBC RBC Hgb Hct MCV RDW Plt Count Lymph % (Auto) Lymph # Seg Neutrophils % Seg Neuts % (Manual) Lymphocytes % (Manual) Seg Neutrophils # Seg Neutrophils # Man Lymphocytes # (Manual) PT INR POC ABG pH 7.488 H POC ABG pCO2 34.1 L POC ABG pO2 Sodium Potassium Chloride Carbon Dioxide BUN Creatinine Glucose POC Glucose 143 H 163 H Calcium Magnesium AST Total Creatine Kinase CK-MB (CK-2) Troponin T NT-Pro-B Natriuret Pep Total Protein Albumin HDL Cholesterol 01/29/19 01/29/19 01/29/19 00:10 05:47 12:08 WBC RBC Hgb Hct MCV RDW Plt Count Lymph % (Auto) Lymph # Seg Neutrophils % Seg Neuts % (Manual) Lymphocytes % (Manual) Seg Neutrophils # Seg Neutrophils # Man Lymphocytes # (Manual) PT INR POC ABG pH POC ABG pCO2 POC ABG pO2 Sodium Potassium Chloride Carbon Dioxide BUN Creatinine Glucose POC Glucose 171 H 187 H 137 H Calcium Magnesium AST Total Creatine Kinase CK-MB (CK-2) Troponin T NT-Pro-B Natriuret Pep Total Protein Albumin HDL Cholesterol 01/29/19 01/29/19 01/29/19 16:48 16:54 17:47 WBC RBC Hgb Hct MCV RDW Plt Count Lymph % (Auto) Lymph # Seg Neutrophils % Seg Neuts % (Manual) Lymphocytes % (Manual) Seg Neutrophils # Seg Neutrophils # Man Lymphocytes # (Manual) PT INR POC ABG pH 7.486 H 7.512 H POC ABG pCO2 32.8 L 32.7 L POC ABG pO2 108 H Sodium Potassium Chloride Carbon Dioxide BUN Creatinine Glucose POC Glucose 156 H Calcium Magnesium AST Total Creatine Kinase CK-MB (CK-2) Troponin T NT-Pro-B Natriuret Pep Total Protein Albumin HDL Cholesterol 01/29/19 01/30/19 01/30/19 23:48 06:45 07:18 WBC RBC 2.94 L Hgb 8.6 L Hct 25.7 L MCV RDW Plt Count Lymph % (Auto) Lymph # Seg Neutrophils % Seg Neuts % (Manual) Lymphocytes % (Manual) Seg Neutrophils # Seg Neutrophils # Man Lymphocytes # (Manual) PT INR POC ABG pH POC ABG pCO2 POC ABG pO2 Sodium 135 L Potassium Chloride Carbon Dioxide BUN Creatinine Glucose 141 H POC Glucose 185 H Calcium 8.3 L Magnesium AST Total Creatine Kinase CK-MB (CK-2) Troponin T NT-Pro-B Natriuret Pep Total Protein Albumin HDL Cholesterol 01/30/19 01/30/19 01/30/19 11:17 16:47 18:16 WBC RBC Hgb Hct MCV RDW Plt Count Lymph % (Auto) Lymph # Seg Neutrophils % Seg Neuts % (Manual) Lymphocytes % (Manual) Seg Neutrophils # Seg Neutrophils # Man Lymphocytes # (Manual) PT INR POC ABG pH 7.508 H POC ABG pCO2 31.5 L POC ABG pO2 135 H Sodium Potassium Chloride Carbon Dioxide BUN Creatinine Glucose POC Glucose 170 H 108 H Calcium Magnesium AST Total Creatine Kinase CK-MB (CK-2) Troponin T NT-Pro-B Natriuret Pep Total Protein Albumin HDL Cholesterol 01/30/19 01/31/19 01/31/19 23:38 05:45 12:04 WBC RBC Hgb Hct MCV RDW Plt Count Lymph % (Auto) Lymph # Seg Neutrophils % Seg Neuts % (Manual) Lymphocytes % (Manual) Seg Neutrophils # Seg Neutrophils # Man Lymphocytes # (Manual) PT INR POC ABG pH POC ABG pCO2 POC ABG pO2 Sodium Potassium Chloride Carbon Dioxide BUN Creatinine Glucose POC Glucose 146 H 121 H 152 H Calcium Magnesium AST Total Creatine Kinase CK-MB (CK-2) Troponin T NT-Pro-B Natriuret Pep Total Protein Albumin HDL Cholesterol 01/31/19 01/31/19 02/01/19 17:44 23:58 05:46 WBC RBC Hgb Hct MCV RDW Plt Count Lymph % (Auto) Lymph # Seg Neutrophils % Seg Neuts % (Manual) Lymphocytes % (Manual) Seg Neutrophils # Seg Neutrophils # Man Lymphocytes # (Manual) PT INR POC ABG pH POC ABG pCO2 POC ABG pO2 Sodium Potassium Chloride Carbon Dioxide BUN Creatinine Glucose POC Glucose 153 H 183 H 116 H Calcium Magnesium AST Total Creatine Kinase CK-MB (CK-2) Troponin T NT-Pro-B Natriuret Pep Total Protein Albumin HDL Cholesterol 02/01/19 02/01/19 02/01/19 11:10 12:18 17:48 WBC RBC Hgb Hct MCV RDW Plt Count Lymph % (Auto) Lymph # Seg Neutrophils % Seg Neuts % (Manual) Lymphocytes % (Manual) Seg Neutrophils # Seg Neutrophils # Man Lymphocytes # (Manual) PT INR POC ABG pH POC ABG pCO2 POC ABG pO2 Sodium 133 L Potassium 3.3 L Chloride 96.1 L Carbon Dioxide BUN Creatinine Glucose 145 H POC Glucose 175 H 129 H Calcium 8.3 L Magnesium AST Total Creatine Kinase CK-MB (CK-2) Troponin T NT-Pro-B Natriuret Pep Total Protein Albumin HDL Cholesterol 02/01/19 02/02/19 02/02/19 23:13 05:16 06:00 WBC RBC Hgb Hct MCV RDW Plt Count Lymph % (Auto) Lymph # Seg Neutrophils % Seg Neuts % (Manual) Lymphocytes % (Manual) Seg Neutrophils # Seg Neutrophils # Man Lymphocytes # (Manual) PT INR POC ABG pH POC ABG pCO2 POC ABG pO2 Sodium 135 L Potassium Chloride Carbon Dioxide BUN 18 H Creatinine Glucose 121 H POC Glucose 143 H 140 H Calcium 8.3 L Magnesium 1.60 L AST Total Creatine Kinase CK-MB (CK-2) Troponin T NT-Pro-B Natriuret Pep Total Protein Albumin HDL Cholesterol 02/02/19 02/02/19 02/02/19 12:06 18:23 23:45 WBC RBC Hgb Hct MCV RDW Plt Count Lymph % (Auto) Lymph # Seg Neutrophils % Seg Neuts % (Manual) Lymphocytes % (Manual) Seg Neutrophils # Seg Neutrophils # Man Lymphocytes # (Manual) PT INR POC ABG pH POC ABG pCO2 POC ABG pO2 Sodium Potassium Chloride Carbon Dioxide BUN Creatinine Glucose POC Glucose 156 H 159 H 139 H Calcium Magnesium AST Total Creatine Kinase CK-MB (CK-2) Troponin T NT-Pro-B Natriuret Pep Total Protein Albumin HDL Cholesterol 02/03/19 02/03/19 05:19 12:02 WBC RBC Hgb Hct MCV RDW Plt Count Lymph % (Auto) Lymph # Seg Neutrophils % Seg Neuts % (Manual) Lymphocytes % (Manual) Seg Neutrophils # Seg Neutrophils # Man Lymphocytes # (Manual) PT INR POC ABG pH POC ABG pCO2 POC ABG pO2 Sodium Potassium Chloride Carbon Dioxide BUN Creatinine Glucose POC Glucose 147 H 163 H Calcium Magnesium AST Total Creatine Kinase CK-MB (CK-2) Troponin T NT-Pro-B Natriuret Pep Total Protein Albumin HDL Cholesterol
[2019-02-04] MEDS: HumaLOG SUB-Q SCH ×4 (00:11→17:32)
[2019-02-04] MEDS: DUONEB *Not for PRN Use IH SCH ×4 (02:40→20:04)
[2019-02-04] MEDS: LASIX PO SCH ×2 (06:00→17:26)
[2019-02-04] MEDS: KENALOG TP SCH ×2 (10:00→22:42)
[2019-02-04] MEDS: NORVASC PO SCH (10:00)
[2019-02-04] MEDS: KEPPRA PO SCH ×2 (10:00→22:42)
[2019-02-04] MEDS: COREG PO SCH ×2 (10:00→22:43)
[2019-02-04] MEDS: BABY ASPIRIN PO SCH (10:00)
[2019-02-04] MEDS: SODIUM CHLORIDE FLUSH SYRINGE 10 ML IV SCH ×2 (10:00→22:43)
[2019-02-04] MEDS: PREVACID SOLUTAB FEEDTUBE SCH ×2 (10:00→22:43)
[2019-02-04] MEDS: LOVENOX SUB-Q SCH (10:00)
--- NOTE | 2019-02-04 10:52 | Progress Note ---
Assessment and Plan Assessment and plan: Cardiopulmonary arrest. Patient with out of hospital PEA arrest and ROSC. Cardiology following. Acute hypoxemic hypercapnic respiratory failure. Patient previously on mechanical ventilation but has been weaned. Continue ATP trials. Continue trach care. Partial SBO versus ileus. Serial KUB Aspiration pneumonia. Continue IV antibiotics per ID. Aspiration precautions. Sepsis. Tracheal aspirate and blood cultures are negative to date. ID following. Anoxic encephalopathy. EEG 01/17/19 reported as abnormal with minimal brain activity. No epileptiform discharges. Neurology following Oropharyngeal dysphagia. IR consult. We'll obtain a CT of the abdomen and pelvis to determine if patient's anatomy is suitable for percutaneous placement of gastrostomy tube. Acute renal failure. Etiology likely secondary to acute kidney injury from sepsis. Creatinine is stable. Continue to monitor. Pulmonary hypertension. Consider CT of the chest when medically stable. Acute systolic heart failure. Patient with moderate global hypokinesis of left ventricle EF 35-40% and left ventricular systolic function moderately decreased. 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 The aggregate critical care time was [31] minutes. This time is in addition to time spent performing reported procedures but includes the following: [x] Data Review and interpretation [x] Patient assessment and monitoring of vital signs [x] Documentation [x] Medication orders and management History Interval history: Patient is 73 yo with hypertension, CAD s/p stent, COPD/emphesema, not on home Oxygen. She was Brought in by paramedics 01/15/19 after cardiorespiratory arrest at home. History obtained from daughter and granddaughter at bedside. Patient called a family member that she had more shortness of breath . Family member lives in same Apartment complex, same floor, came to her, found her on floor not breathing, started CPR, called paramedics. She was in jhon PEA, given 2 rounds Epinephrine, CPR, intubated , resuscitated, and brought to ED. Patient was seen and evaluated in ED and admitted to ICU. 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 She had seizures later same day, was started on keppra. Shwe had CARMELINA on presentation, resolved in few days. She remained comatose, acute respiratory failure vent dependent. Trach and PEG was recommended. Tracheostomy done 01/25. PEG not done yet because of abdominal distension. She has poor prognosis. may need LTAC Hospitalist Physical - Constitutional Vitals: Temp Pulse Resp BP Pulse Ox 97.4 F L 82 25 H 113/67 100 02/04/19 08:00 02/04/19 09:00 02/04/19 09:00 02/04/19 09:00 02/04/19 09:00 General appearance: Present: other (trached, nonresponsive at time of examination) - EENT Eyes: Present: PERRL, EOM intact ENT: hearing intact, clear oral mucosa, dentition normal - Neck Neck: Present: supple, normal ROM - Respiratory Respiratory effort: normal Respiratory: bilateral: CTA - Cardiovascular Rhythm: regular Heart Sounds: Present: S1 & S2. Absent: gallop, rub - Extremities Extremities: no ischemia, No edema, Full ROM - Abdominal General gastrointestinal: soft, non-tender, non-distended, normal bowel sounds - Integumentary Integumentary: Present: clear, warm, dry - Neurologic Neurologic: CNII-XII intact, moves all extremities Results - Labs CBC & Chem 7: 01/30/19 06:45 02/02/19 06:00 Labs: Laboratory Last Values WBC 8.2 K/mm3 (4.5-11.0) 01/30/19 06:45 RBC 2.94 M/mm3 (3.65-5.03) L 01/30/19 06:45 Hgb 8.6 gm/dl (10.1-14.3) L 01/30/19 06:45 Hct 25.7 % (30.3-42.9) L 01/30/19 06:45 MCV 87 fl (79-97) 01/30/19 06:45 MCH 29 pg (28-32) 01/30/19 06:45 MCHC 33 % (30-34) 01/30/19 06:45 RDW 14.6 % (13.2-15.2) 01/30/19 06:45 Plt Count 370 K/mm3 (140-440) 01/30/19 06:45 Lymph % (Auto) 6.3 % (13.4-35.0) L 01/23/19 00:01 [place] % (Auto) 6.6 % (0.0-7.3) 01/23/19 00:01 Eos % (Auto) 0.5 % (0.0-4.3) 01/23/19 00:01 Baso % (Auto) 0.3 % (0.0-1.8) 01/23/19 00:01 Lymph # 0.6 K/mm3 (1.2-5.4) L 01/23/19 00:01 [place] # 0.7 K/mm3 (0.0-0.8) 01/23/19 00:01 Eos # 0.1 K/mm3 (0.0-0.4) 01/23/19 00:01 Baso # 0.0 K/mm3 (0.0-0.1) 01/23/19 00:01 Add Manual Diff Complete 01/16/19 04:16 Total Counted 100 01/16/19 04:16 Seg Neutrophils % 86.3 % (40.0-70.0) H 01/23/19 00:01 Seg Neuts % (Manual) 74.0 % (40.0-70.0) H 01/16/19 04:16 22.0 % 01/16/19 04:16 2.0 % (13.4-35.0) L 01/16/19 04:16 Reactive Lymphs % (Man) 0 % 01/16/19 04:16 2.0 % (0.0-7.3) 01/16/19 04:16 0 % (0.0-4.3) 01/16/19 04:16 0 % (0.0-1.8) 01/16/19 04:16 0 % 01/16/19 04:16 0 % 01/16/19 04:16 0 % 01/16/19 04:16 0 % 01/16/19 04:16 Nucleated RBC % Not Reportable 01/16/19 04:16 Seg Neutrophils # 8.9 K/mm3 (1.8-7.7) H 01/23/19 00:01 Seg Neutrophils # Man 8.4 K/mm3 (1.8-7.7) H 01/16/19 04:16 Band Neutrophils # 2.5 K/mm3 01/16/19 04:16 0.2 K/mm3 (1.2-5.4) L 01/16/19 04:16 Abs React Lymphs (Man) 0.0 K/mm3 01/16/19 04:16 0.2 K/mm3 (0.0-0.8) 01/16/19 04:16 0.0 K/mm3 (0.0-0.4) 01/16/19 04:16 0.0 K/mm3 (0.0-0.1) 01/16/19 04:16 0.0 K/mm3 01/16/19 04:16 0.0 K/mm3 01/16/19 04:16 0.0 K/mm3 01/16/19 04:16 Blast Cells # 0.0 K/mm3 01/16/19 04:16 WBC Morphology Not Reportable 01/16/19 04:16 Hypersegmented Neuts Not Reportable 01/16/19 04:16 Hyposegmented Neuts Not Reportable 01/16/19 04:16 Hypogranular Neuts Not Reportable 01/16/19 04:16 Not Reportable 01/16/19 04:16 Not Reportable 01/16/19 04:16 Not Reportable 01/16/19 04:16 Not Reportable 01/16/19 04:16 Not Reportable 01/16/19 04:16 Not Reportable 01/16/19 04:16 Consistent w auto 01/16/19 04:16 Not Reportable 01/16/19 04:16 Plt Clumps, EDTA Not Reportable 01/16/19 04:16 Not Reportable 01/16/19 04:16 Not Reportable 01/16/19 04:16 Not Reportable 01/16/19 04:16 Plt Morphology Comment Not Reportable 01/16/19 04:16 RBC Morphology Normal 01/16/19 04:16 Dimorphic RBCs Not Reportable 01/16/19 04:16 Not Reportable 01/16/19 04:16 Not Reportable 01/16/19 04:16 Not Reportable 01/16/19 04:16 Not Reportable 01/16/19 04:16 Not Reportable 01/16/19 04:16 Not Reportable 01/16/19 04:16 Not Reportable 01/16/19 04:16 Not Reportable 01/16/19 04:16 Not Reportable 01/16/19 04:16 Not Reportable 01/16/19 04:16 Not Reportable 01/16/19 04:16 Not Reportable 01/16/19 04:16 Not Reportable 01/16/19 04:16 Not Reportable 01/16/19 04:16 Not Reportable 01/16/19 04:16 Not Reportable 01/16/19 04:16 Not Reportable 01/16/19 04:16 Not Reportable 01/16/19 04:16 Not Reportable 01/16/19 04:16 Acanthocytes (Spur) Not Reportable 01/16/19 04:16 Rouleaux Not Reportable 01/16/19 04:16 Not Reportable 01/16/19 04:16 Not Reportable 01/16/19 04:16 Not Reportable 01/16/19 04:16 Not Reportable 01/16/19 04:16 Hem Pathologist Commnt No 01/16/19 04:16 PT 18.8 Sec. (12.2-14.9) H 01/25/19 05:15 INR 1.47 (0.87-1.13) H 01/25/19 05:15 APTT 36.0 Sec. (24.2-36.6) 01/15/19 07:50 Heparin Anti-Xa, Unfract Negative (Negative) 01/19/19 Unknown POC ABG pH 7.508 (7.35-7.45) H 01/30/19 16:47 POC ABG pCO2 31.5 (35-45) L 01/30/19 16:47 POC ABG pO2 135 (80-105) H 01/30/19 16:47 POC ABG HCO3 25.0 (22-26 mml/L) 01/30/19 16:47 POC ABG Total CO2 26 (23-27mmol/L) 01/30/19 16:47 POC ABG O2 Sat 99 01/30/19 16:47 POC ABG Base Excess 2 ((-2) - (+3)mmol/L) 01/30/19 16:47 28 % 01/30/19 16:47 Sodium 135 mmol/L (137-145) L 02/02/19 06:00 Potassium 4.2 mmol/L (3.6-5.0) D 02/02/19 06:00 Chloride 98.2 mmol/L (98-107) 02/02/19 06:00 Carbon Dioxide 25 mmol/L (22-30) 02/02/19 06:00 16 mmol/L 02/02/19 06:00 BUN 18 mg/dL (7-17) H 02/02/19 06:00 0.7 mg/dL (0.7-1.2) 02/02/19 06:00 Estimated GFR > 60 ml/min 02/02/19 06:00 26 % 02/02/19 06:00 Glucose 121 mg/dL (65-100) H 02/02/19 06:00 POC Glucose 145 (70-105) H 02/04/19 05:30 6.0 % (4-6) 01/15/19 11:53 Calcium 8.3 mg/dL (8.4-10.2) L 02/02/19 06:00 Phosphorus 3.10 mg/dL (2.5-4.5) 02/02/19 06:00 Magnesium 1.60 mg/dL (1.7-2.3) L 02/02/19 06:00 0.30 mg/dL (0.1-1.2) 01/23/19 Unknown AST 88 units/L (5-40) H 01/23/19 Unknown ALT 31 units/L (7-56) 01/23/19 Unknown 48 units/L (35-129) 01/23/19 Unknown 1430 units/L (30-135) H 01/15/19 17:52 CK-MB (CK-2) 13.5 ng/mL (0.0-4.0) H 01/15/19 17:52 CK-MB (CK-2) Rel Index 0.9 (0-4) 01/15/19 17:52 0.036 ng/mL (0.00-0.029) H D 01/15/19 17:52 NT-Pro-B Natriuret Pep 5346 pg/mL (0-900) H 01/15/19 07:50 6.0 g/dL (6.3-8.2) L 01/23/19 Unknown 2.9 g/dL (3.9-5) L 01/23/19 Unknown 0.9 % 01/23/19 Unknown Triglycerides 75 mg/dL (2-149) 01/15/19 17:52 Cholesterol 149 mg/dL (50-199) 01/15/19 17:52 84 mg/dL (50-130) 01/15/19 17:52 65 mg/dL (40-59) H 01/15/19 17:52 2.29 % 01/15/19 17:52 See scanned report 01/19/19 Unknown Yellow (Yellow) 01/21/19 16:10 Clear (Clear) 01/21/19 16:10 6.0 (5.0-7.0) 01/21/19 16:10 Ur Specific Donie 1.015 (1.003-1.030) 01/21/19 16:10 <15 mg/dl mg/dL (Negative) 01/21/19 16:10 Neg mg/dL (Negative) 01/21/19 16:10 Neg mg/dL (Negative) 01/21/19 16:10 Neg (Negative) 01/21/19 16:10 Neg (Negative) 01/21/19 16:10 Neg (Negative) 01/21/19 16:10 2.0 mg/dL (<2.0) 01/21/19 16:10 Ur Leukocyte Esterase Neg (Negative) 01/21/19 16:10 1.0 /HPF (0.0-6.0) 01/21/19 16:10 5.0 /HPF (0.0-6.0) 01/21/19 16:10 Presumptive negative 01/15/19 16:30 Presumptive negative 01/15/19 16:30 Ur Barbiturates Screen Presumptive negative 01/15/19 16:30 Ur Phencyclidine Scrn Presumptive negative 01/15/19 16:30 Ur Amphetamines Screen Presumptive negative 01/15/19 16:30 U Benzodiazepines Scrn Presumptive negative 01/15/19 16:30 Presumptive negative 01/15/19 16:30 U Marijuana (THC) Screen Presumptive negative 01/15/19 16:30 Disclamer 01/15/19 16:30 Heparin-induced Plt Ab Negative (Negative) 01/19/19 Unknown UF Heparin High Dose 3 % Release 01/19/19 Unknown JOSEFA UFH Low Dose 0.1 4 % Release 01/19/19 Unknown JOSEFA UFH Low Dose 0.5 5 % Release 01/19/19 Unknown C. difficile Tox (PCR) Negative (Negative) 01/16/19 00:00 Active Medications - Current Medications Current Medications: Generic Name Dose Route Start Last Admin Trade Name Freq PRN Reason Stop Dose Admin Acetaminophen 650 mg 01/16/19 09:37 01/20/19 00:24 Tylenol PO 650 mg Q4H PRN Administration Fever >101 Albuterol/Ipratropium 1 ampul 01/15/19 14:00 02/04/19 09:03 Duoneb *Not For Prn Use* IH 1 ampul Q6HRT DEON Administration Amlodipine Besylate 10 mg 01/24/19 12:00 02/03/19 09:39 Norvasc PO 10 mg DAILY DEON Administration Lipase/Protease/Amylase 1 each 02/02/19 14:21 Pancreaze 10,500 Unit FEEDTUBE PRN PRN For Clogged Feeding Tube Aspirin 81 mg 01/16/19 10:00 02/03/19 09:37 Baby Aspirin PO 81 mg QDAY DEON Administration Atorvastatin Calcium 20 mg 01/16/19 22:00 02/03/19 21:37 Lipitor PO 20 mg QHS DEON Administration Carvedilol 12.5 mg 01/24/19 22:00 02/03/19 21:37 Coreg PO 12.5 mg BID DEON Administration Enoxaparin Sodium 40 mg 01/30/19 10:00 02/03/19 09:38 Lovenox SUB-Q 40 mg QDAY@1000 DEON Administration Furosemide 20 mg 01/19/19 18:00 02/04/19 06:00 Lasix PO 20 mg 0600,1800 DEON Administration Insulin Human Lispro 0 unit 01/22/19 14:00 02/04/19 06:26 Humalog SUB-Q Not Given Q6HR [facility] Protocol Lansoprazole 30 mg 01/30/19 10:00 02/03/19 21:36 Prevacid Solutab FEEDTUBE 30 mg BID DEON Administration Levetiracetam 750 mg 01/18/19 10:00 02/03/19 21:35 Keppra PO 750 mg BID DEON Administration Metoclopramide HCl 10 mg 02/01/19 14:00 02/04/19 00:00 Reglan IV 10 mg Q8HR DEON Administration Simple Syrup 15 ml 02/02/19 14:21 Simple Syrup FEEDTUBE PRN PRN Hypoglycemia Simple Syrup 30 ml 02/02/19 14:21 Simple Syrup FEEDTUBE PRN PRN Hypoglycemia Sodium Bicarbonate 325 mg 02/02/19 14:21 Sodium Bicarbonate FEEDTUBE PRN PRN For Clogged Feeding Tube Sodium Chloride 10 ml 01/15/19 22:00 02/03/19 22:22 Sodium Chloride Flush Syringe 10 Ml IV 10 ml BID DEON Administration Sodium Chloride 10 ml 01/15/19 10:34 01/29/19 12:43 Sodium Chloride Flush Syringe 10 Ml IV 10 ml PRN PRN Administration LINE FLUSH Triamcinolone Acetonide 1 applic 01/24/19 14:00 02/03/19 22:22 Kenalog TP 1 applic BID DEON Administration Nutrition/Malnutrition Assess - Dietary Evaluation Nutrition/Malnutrition Findings: Nutrition Notes Start: 01/15/19 14:28 Freq: Status: Active Protocol: Document 02/02/19 14:15 RM (Rec: 02/02/19 14:21 RM [id number]) Nutrition Notes Initial or Follow up Reassessment Current Diagnosis Acute Kidney Injury,Heart Failure,Respiratory Failure Other Pertinent Diagnosis Ileus, dysphagia, s/p cardiorespiratory arrest (at home) Current Diet Glucerna 1.2 at 5 ml/hr Labs/Tests Na 135 Pertinent Medications D5 1/2NS + 20mEq KCl at 50ml/ hr, ReglanLeeann Height 5 ft 4 in Weight 48.5 kg [place] Body Weight (kg) 54.54 BMI 18.3 Subjective/Other Information Pt had several BMs last night. During rounds MD ordered D/C of TPN and to resume TF. Burn Absent Trauma Absent #1 Nutrition Diagnosis Inadequate oral intake Diagnosis Progress(for reassessment Continues documentation) Is patient on ventilator? Yes Is Patient Ambulatory and/or Out of Bed No REE-([facility]-confined to bed) 1164.624 Kcal/Kg value to use for calculation 35 Approximate Energy Requirements Using 1698 kcal/Kg Calculation Used for Recommendations Kcal/kg Additional Notes Pro needs 1.2-2g/k-92g/ day Fluid needs 1ml/kcal Nutrition Intervention Nutrition Support: Glucerna 1.2 at 50ml/hr with 80ml water flush q4h. Kcal 1,440 Protein (gm) 72 Carbohydrates (gm) 137 Fluid (mL) 966 Fiber (gm) 19 Goal #1 Meet at least 80% of calorie and protein needs via TF Goal #2 Wt maintenance and/or gain Follow-Up By: 02/05/19 Additional Comments Follow for TF tolerance
[2019-02-04 11:32] LABS: Basophils % (Auto) 0.3 % (0.0-1.8); Eosinophils # (Auto) 0.1 K/mm3 (0.0-0.4); Eosinophils % (Auto) 1.1 % (0.0-4.3); Hematocrit 25.9 % (30.3-42.9); Hemoglobin 8.7 gm/dl (10.1-14.3); Lymphocytes # (Auto) 0.8 K/mm3 (1.2-5.4); Lymphocytes % (Auto) 11.5 % (13.4-35.0); Mean Corpuscular HGB Conc 34 % (30-34); Mean Corpuscular Volume 86 fl (79-97); Monocytes # (Auto) 0.5 K/mm3 (0.0-0.8); Monocytes % (Auto) 7.5 % (0.0-7.3); Platelet Count 260 K/mm3 (140-440); Red Cell Distribution Width 14.6 % (13.2-15.2)
[2019-02-04 11:53] LABS: BUN/Creatinine Ratio 43; Blood Urea Nitrogen 30 mg/dL (7-17); Calcium 8.9 mg/dL (8.4-10.2); Hemolysis Index 0
[2019-02-04] MEDS: REGLAN IV SCH ×3 (14:00→22:43)
--- NOTE | 2019-02-04 17:00 | Progress Note ---
Assessment and Plan s/p Cardiopulmonary arrest, out of hospital, PEA with ROSC Acute hypoxic-hypercapnic respiratory failure on MVS Acute encephalopathy, metabolic Acute metabolic acidosis Acute renal injury Seizure activity Right lower lobe infiltrate, probably aspiration Pyrexia with leukocytosis Pulmonary HTN RVSP 60 Systolic heart failure EF 35-40% Thrombocytopenia - CXR ordered - continue to advance tube feeds as tolerated - continue T-piece trials as tolerated - continue routine trach care per RT - continue provigil - HIT assay negative - continue Arixtra for now - follow clinically off AB's - neurology evaluation ongoing - Gentle diuresis with oral lasix (now 20mg bid) - continue GI & VTE prophylaxis - continue to wean supplemental oxygen to keep O2 sats 88-90% - prn ABGs/CXR going forwards - Continue cardioprotective measures - Replete electrolytes as indicated - Continue bronchodilators with pulmonary hygiene per RT - Estes catheter removed - Monitor renal indices closely - Avoid nephrotoxic agents, adjust all medications for CrCL - Strict intake and output monitoring - Tube feedings as tolerated - continue accuchecks with glycemic control. Target glucose of 140-180 mg/dL - Maintenance of sleep -wake cycle - Mobility as tolerated by hemodynamics - Influenza and pneumonia vaccination per protocol ...... discussed wit attending and will transfer to IMCU or to telemetry floor Subjective Date of service: 02/04/19 Principal diagnosis: OOH cardiac arrest; Acute hypoxemic-hypercapnic Resp failure; PNA Interval history: Patient is seen today for: OOH cardiopulmonary arrest with ROSC; Acute hypoxemic-hypercapnic respiratory failure on MVS; acute encephalopathy; aspirat ion pneumonia Seen and examined at bedside; 24hour events reviewed; nursing and respiratory care staff consulted; no adverse overnight events reported to me; remains on T-piece RTC; AMS is persistent; tolerating tube feds; no new issues otherwise Objective Vital Signs - 12hr 02/04/19 02/04/19 02/04/19 05:00 06:00 07:00 Temperature Pulse Rate 83 80 82 Pulse Rate [ From Monitor] Pulse Rate [ Left Dorsalis Pedis] Pulse Rate [ Right Dorsalis Pedis] Pulse Rate [ Throughout] Respiratory 28 H 22 26 H Rate Respiratory Rate [ Throughout] Blood Pressure 129/63 139/64 149/62 O2 Sat by Pulse 98 100 100 Oximetry O2 Sat by Pulse Oximetry [ Assessment] 02/04/19 02/04/19 02/04/19 08:00 08:01 08:30 Temperature 97.4 F L Pulse Rate 87 83 Pulse Rate [ 85 From Monitor] Pulse Rate [ 85 Left Dorsalis Pedis] Pulse Rate [ 85 Right Dorsalis Pedis] Pulse Rate [ 83 Throughout] Respiratory 34 H 26 H Rate Respiratory 28 H Rate [ Throughout] Blood Pressure 116/65 O2 Sat by Pulse 100 98 Oximetry O2 Sat by Pulse Oximetry [ Assessment] 02/04/19 02/04/19 02/04/19 08:40 09:00 10:00 Temperature Pulse Rate 82 83 Pulse Rate [ From Monitor] Pulse Rate [ Left Dorsalis Pedis] Pulse Rate [ Right Dorsalis Pedis] Pulse Rate [ 84 Throughout] Respiratory 25 H Rate Respiratory 28 H Rate [ Throughout] Blood Pressure 113/67 118/74 O2 Sat by Pulse 100 100 Oximetry O2 Sat by Pulse Oximetry [ Assessment] 02/04/19 02/04/19 02/04/19 11:15 12:00 15:05 Temperature 97.9 F Pulse Rate Pulse Rate [ From Monitor] Pulse Rate [ Left Dorsalis Pedis] Pulse Rate [ Right Dorsalis Pedis] Pulse Rate [ 83 Throughout] Respiratory Rate Respiratory 24 Rate [ Throughout] Blood Pressure O2 Sat by Pulse Oximetry O2 Sat by Pulse 100 Oximetry [ Assessment] 02/04/19 02/04/19 15:19 16:00 Temperature 98.6 F Pulse Rate Pulse Rate [ From Monitor] Pulse Rate [ Left Dorsalis Pedis] Pulse Rate [ Right Dorsalis Pedis] Pulse Rate [ 85 Throughout] Respiratory Rate Respiratory 33 H Rate [ Throughout] Blood Pressure O2 Sat by Pulse Oximetry O2 Sat by Pulse Oximetry [ Assessment] Constitutional: no acute distress, other (elderly, atraumatic, normocephalic, chronically looking female) Eyes: non-icteric ENT: oropharynx moist, other (s/p tracheostomy) Neck: supple, no lymphadenopathy, no JVD Effort: normal Ascultation: Bilateral: diminished breath sounds, rhonchi (scant) Percussion: Bilateral: not dull Cardiovascular: regular rate and rhythm, other (tacycardia, S1,S2, no murmurs, gallops or rubs) Gastrointestinal: normoactive bowel sounds, soft, non-tender, non-distended Integumentary: normal Extremities: no cyanosis, no edema, pulses normal, no ischemia or petechiae Neurologic: unable to assess Psychiatric: other (unable to assess secondary to mental status) CBC and BMP: 02/04/19 11:14 02/04/19 11:14 ABG, PT/INR, D-dimer: ABG POC ABG pH 7.508 (7.35-7.45) H 01/30/19 16:47 POC ABG pCO2 31.5 (35-45) L 01/30/19 16:47 POC ABG pO2 135 (80-105) H 01/30/19 16:47 POC ABG HCO3 25.0 (22-26 mml/L) 01/30/19 16:47 POC ABG Total CO2 26 (23-27mmol/L) 01/30/19 16:47 POC ABG O2 Sat 99 01/30/19 16:47 PT/INR, D-dimer PT 18.8 Sec. (12.2-14.9) H 01/25/19 05:15 INR 1.47 (0.87-1.13) H 01/25/19 05:15 Abnormal lab findings: Abnormal Labs 01/15/19 01/15/19 01/15/19 07:50 07:50 07:50 WBC RBC Hgb Hct MCV 99 H RDW 16.7 H Plt Count 122 L Lymph % (Auto) [place] % (Auto) Lymph # Seg Neutrophils % Seg Neuts % (Manual) Lymphocytes % (Manual) Seg Neutrophils # Seg Neutrophils # Man Lymphocytes # (Manual) PT 19.7 H INR 1.56 H POC ABG pH POC ABG pCO2 POC ABG pO2 Sodium Potassium Chloride Carbon Dioxide 11 L BUN Creatinine 1.4 H Glucose 268 H POC Glucose Calcium Magnesium AST 57 H Total Creatine Kinase CK-MB (CK-2) Troponin T NT-Pro-B Natriuret Pep 5346 H Total Protein Albumin 3.6 L HDL Cholesterol 01/15/19 01/15/19 01/15/19 09:56 11:53 17:52 WBC RBC Hgb Hct MCV RDW Plt Count Lymph % (Auto) [place] % (Auto) Lymph # Seg Neutrophils % Seg Neuts % (Manual) Lymphocytes % (Manual) Seg Neutrophils # Seg Neutrophils # Man Lymphocytes # (Manual) PT INR POC ABG pH 7.186 L POC ABG pCO2 46.4 H POC ABG pO2 Sodium Potassium Chloride Carbon Dioxide BUN Creatinine Glucose POC Glucose Calcium Magnesium AST Total Creatine Kinase 683 H 1430 H CK-MB (CK-2) 9.5 H 13.5 H Troponin T 0.036 H D NT-Pro-B Natriuret Pep Total Protein Albumin HDL Cholesterol 65 H 01/15/19 01/15/19 01/16/19 18:31 21:46 02:14 WBC RBC Hgb Hct MCV RDW Plt Count Lymph % (Auto) [place] % (Auto) Lymph # Seg Neutrophils % Seg Neuts % (Manual) Lymphocytes % (Manual) Seg Neutrophils # Seg Neutrophils # Man Lymphocytes # (Manual) PT INR POC ABG pH POC ABG pCO2 31.8 L POC ABG pO2 167 H Sodium Potassium Chloride Carbon Dioxide BUN Creatinine Glucose POC Glucose 134 H 136 H Calcium Magnesium AST Total Creatine Kinase CK-MB (CK-2) Troponin T NT-Pro-B Natriuret Pep Total Protein Albumin HDL Cholesterol 01/16/19 01/16/19 01/16/19 04:16 04:16 05:05 WBC 11.4 H RBC Hgb Hct MCV RDW Plt Count 105 L Lymph % (Auto) [place] % (Auto) Lymph # Seg Neutrophils % Seg Neuts % (Manual) 74.0 H Lymphocytes % (Manual) 2.0 L Seg Neutrophils # Seg Neutrophils # Man 8.4 H Lymphocytes # (Manual) 0.2 L PT INR POC ABG pH 7.458 H POC ABG pCO2 31.4 L POC ABG pO2 135 H Sodium Potassium 3.3 L Chloride Carbon Dioxide 21 L D BUN 24 H Creatinine 1.5 H Glucose 141 H POC Glucose Calcium 8.1 L Magnesium AST 71 H Total Creatine Kinase CK-MB (CK-2) Troponin T NT-Pro-B Natriuret Pep Total Protein 6.2 L Albumin 3.5 L HDL Cholesterol 01/16/19 01/16/19 01/16/19 05:24 13:42 21:08 WBC RBC Hgb Hct MCV RDW Plt Count Lymph % (Auto) [place] % (Auto) Lymph # Seg Neutrophils % Seg Neuts % (Manual) Lymphocytes % (Manual) Seg Neutrophils # Seg Neutrophils # Man Lymphocytes # (Manual) PT INR POC ABG pH POC ABG pCO2 POC ABG pO2 Sodium Potassium Chloride Carbon Dioxide BUN Creatinine Glucose POC Glucose 137 H 129 H 122 H Calcium Magnesium AST Total Creatine Kinase CK-MB (CK-2) Troponin T NT-Pro-B Natriuret Pep Total Protein Albumin HDL Cholesterol 01/17/19 01/17/19 01/17/19 02:18 04:23 05:13 WBC RBC Hgb Hct MCV RDW Plt Count Lymph % (Auto) [place] % (Auto) Lymph # Seg Neutrophils % Seg Neuts % (Manual) Lymphocytes % (Manual) Seg Neutrophils # Seg Neutrophils # Man Lymphocytes # (Manual) PT INR POC ABG pH 7.479 H POC ABG pCO2 30.0 L POC ABG pO2 141 H Sodium Potassium Chloride Carbon Dioxide BUN Creatinine Glucose POC Glucose 139 H 128 H Calcium Magnesium AST Total Creatine Kinase CK-MB (CK-2) Troponin T NT-Pro-B Natriuret Pep Total Protein Albumin HDL Cholesterol 01/17/19 01/17/19 01/17/19 10:22 15:59 18:45 WBC RBC Hgb Hct MCV RDW Plt Count Lymph % (Auto) [place] % (Auto) Lymph # Seg Neutrophils % Seg Neuts % (Manual) Lymphocytes % (Manual) Seg Neutrophils # Seg Neutrophils # Man Lymphocytes # (Manual) PT INR POC ABG pH POC ABG pCO2 POC ABG pO2 Sodium Potassium Chloride Carbon Dioxide BUN Creatinine Glucose POC Glucose 133 H 121 H 106 H Calcium Magnesium AST Total Creatine Kinase CK-MB (CK-2) Troponin T NT-Pro-B Natriuret Pep Total Protein Albumin HDL Cholesterol 01/17/19 01/18/19 01/18/19 23:35 04:21 04:21 WBC RBC 3.27 L Hgb 9.6 L Hct 29.9 L MCV RDW Plt Count 79 L Lymph % (Auto) 6.0 L [place] % (Auto) Lymph # 0.5 L Seg Neutrophils % 89.2 H Seg Neuts % (Manual) Lymphocytes % (Manual) Seg Neutrophils # 8.1 H Seg Neutrophils # Man Lymphocytes # (Manual) PT INR POC ABG pH POC ABG pCO2 POC ABG pO2 Sodium Potassium Chloride Carbon Dioxide BUN 28 H Creatinine 1.3 H Glucose 129 H POC Glucose 121 H Calcium Magnesium AST 120 H Total Creatine Kinase CK-MB (CK-2) Troponin T NT-Pro-B Natriuret Pep Total Protein 5.1 L Albumin 3.0 L HDL Cholesterol 01/18/19 01/18/19 01/18/19 04:21 04:36 05:43 WBC RBC Hgb Hct MCV RDW Plt Count Lymph % (Auto) [place] % (Auto) Lymph # Seg Neutrophils % Seg Neuts % (Manual) Lymphocytes % (Manual) Seg Neutrophils # Seg Neutrophils # Man Lymphocytes # (Manual) PT INR POC ABG pH 7.485 H POC ABG pCO2 31.0 L POC ABG pO2 126 H Sodium Potassium Chloride Carbon Dioxide BUN 28 H Creatinine 1.3 H Glucose 128 H POC Glucose 142 H Calcium Magnesium AST Total Creatine Kinase CK-MB (CK-2) Troponin T NT-Pro-B Natriuret Pep Total Protein Albumin HDL Cholesterol 01/18/19 01/18/19 01/18/19 12:04 18:16 20:47 WBC RBC Hgb Hct MCV RDW Plt Count Lymph % (Auto) [place] % (Auto) Lymph # Seg Neutrophils % Seg Neuts % (Manual) Lymphocytes % (Manual) Seg Neutrophils # Seg Neutrophils # Man Lymphocytes # (Manual) PT INR POC ABG pH 7.489 H POC ABG pCO2 32.8 L POC ABG pO2 Sodium Potassium Chloride Carbon Dioxide BUN Creatinine Glucose POC Glucose 113 H 119 H Calcium Magnesium AST Total Creatine Kinase CK-MB (CK-2) Troponin T NT-Pro-B Natriuret Pep Total Protein Albumin HDL Cholesterol 01/19/19 01/19/19 01/19/19 00:40 05:35 11:39 WBC RBC Hgb Hct MCV RDW Plt Count Lymph % (Auto) [place] % (Auto) Lymph # Seg Neutrophils % Seg Neuts % (Manual) Lymphocytes % (Manual) Seg Neutrophils # Seg Neutrophils # Man Lymphocytes # (Manual) PT INR POC ABG pH POC ABG pCO2 POC ABG pO2 Sodium Potassium Chloride Carbon Dioxide BUN Creatinine Glucose POC Glucose 137 H 157 H 155 H Calcium Magnesium AST Total Creatine Kinase CK-MB (CK-2) Troponin T NT-Pro-B Natriuret Pep Total Protein Albumin HDL Cholesterol 01/19/19 01/19/19 01/19/19 18:24 21:08 23:33 WBC RBC Hgb Hct MCV RDW Plt Count Lymph % (Auto) [place] % (Auto) Lymph # Seg Neutrophils % Seg Neuts % (Manual) Lymphocytes % (Manual) Seg Neutrophils # Seg Neutrophils # Man Lymphocytes # (Manual) PT INR POC ABG pH 7.508 H POC ABG pCO2 34.2 L POC ABG pO2 Sodium Potassium Chloride Carbon Dioxide BUN Creatinine Glucose POC Glucose 145 H 156 H Calcium Magnesium AST Total Creatine Kinase CK-MB (CK-2) Troponin T NT-Pro-B Natriuret Pep Total Protein Albumin HDL Cholesterol 01/20/19 01/20/19 01/20/19 05:12 11:42 17:36 WBC RBC Hgb Hct MCV RDW Plt Count Lymph % (Auto) [place] % (Auto) Lymph # Seg Neutrophils % Seg Neuts % (Manual) Lymphocytes % (Manual) Seg Neutrophils # Seg Neutrophils # Man Lymphocytes # (Manual) PT INR POC ABG pH POC ABG pCO2 POC ABG pO2 Sodium Potassium Chloride Carbon Dioxide BUN Creatinine Glucose POC Glucose 152 H 159 H 169 H Calcium Magnesium AST Total Creatine Kinase CK-MB (CK-2) Troponin T NT-Pro-B Natriuret Pep Total Protein Albumin HDL Cholesterol 01/20/19 01/21/19 01/21/19 23:29 05:30 05:34 WBC RBC Hgb Hct MCV RDW Plt Count Lymph % (Auto) [place] % (Auto) Lymph # Seg Neutrophils % Seg Neuts % (Manual) Lymphocytes % (Manual) Seg Neutrophils # Seg Neutrophils # Man Lymphocytes # (Manual) PT INR POC ABG pH 7.616 H POC ABG pCO2 POC ABG pO2 71 L Sodium Potassium Chloride Carbon Dioxide BUN Creatinine Glucose POC Glucose 139 H 138 H Calcium Magnesium AST Total Creatine Kinase CK-MB (CK-2) Troponin T NT-Pro-B Natriuret Pep Total Protein Albumin HDL Cholesterol 01/21/19 01/21/19 01/22/19 12:41 18:47 00:07 WBC RBC Hgb Hct MCV RDW Plt Count Lymph % (Auto) [place] % (Auto) Lymph # Seg Neutrophils % Seg Neuts % (Manual) Lymphocytes % (Manual) Seg Neutrophils # Seg Neutrophils # Man Lymphocytes # (Manual) PT INR POC ABG pH POC ABG pCO2 POC ABG pO2 Sodium Potassium Chloride Carbon Dioxide BUN Creatinine Glucose POC Glucose 154 H 174 H 163 H Calcium Magnesium AST Total Creatine Kinase CK-MB (CK-2) Troponin T NT-Pro-B Natriuret Pep Total Protein Albumin HDL Cholesterol 01/22/19 01/22/19 01/22/19 04:35 05:46 12:18 WBC RBC Hgb Hct MCV RDW Plt Count Lymph % (Auto) [place] % (Auto) Lymph # Seg Neutrophils % Seg Neuts % (Manual) Lymphocytes % (Manual) Seg Neutrophils # Seg Neutrophils # Man Lymphocytes # (Manual) PT INR POC ABG pH 7.522 H POC ABG pCO2 POC ABG pO2 Sodium Potassium Chloride Carbon Dioxide BUN Creatinine Glucose POC Glucose 159 H 137 H Calcium Magnesium AST Total Creatine Kinase CK-MB (CK-2) Troponin T NT-Pro-B Natriuret Pep Total Protein Albumin HDL Cholesterol 01/22/19 01/22/19 01/22/19 15:00 15:00 18:13 WBC RBC 2.92 L Hgb 8.4 L Hct 25.6 L MCV RDW Plt Count Lymph % (Auto) [place] % (Auto) Lymph # Seg Neutrophils % Seg Neuts % (Manual) Lymphocytes % (Manual) Seg Neutrophils # Seg Neutrophils # Man Lymphocytes # (Manual) PT INR POC ABG pH POC ABG pCO2 POC ABG pO2 Sodium Potassium Chloride 97.0 L Carbon Dioxide BUN 37 H Creatinine Glucose 162 H POC Glucose 159 H Calcium 8.2 L Magnesium AST Total Creatine Kinase CK-MB (CK-2) Troponin T NT-Pro-B Natriuret Pep Total Protein Albumin HDL Cholesterol 01/22/19 01/23/19 01/23/19 22:45 00:01 05:10 WBC RBC 2.92 L Hgb 8.5 L Hct 25.4 L MCV RDW Plt Count Lymph % (Auto) 6.3 L [place] % (Auto) Lymph # 0.6 L Seg Neutrophils % 86.3 H Seg Neuts % (Manual) Lymphocytes % (Manual) Seg Neutrophils # 8.9 H Seg Neutrophils # Man Lymphocytes # (Manual) PT INR POC ABG pH POC ABG pCO2 POC ABG pO2 Sodium Potassium Chloride Carbon Dioxide BUN Creatinine Glucose POC Glucose 178 H 155 H Calcium Magnesium AST Total Creatine Kinase CK-MB (CK-2) Troponin T NT-Pro-B Natriuret Pep Total Protein Albumin HDL Cholesterol 01/23/19 01/23/19 01/23/19 11:31 17:49 Unknown WBC RBC Hgb Hct MCV RDW Plt Count Lymph % (Auto) [place] % (Auto) Lymph # Seg Neutrophils % Seg Neuts % (Manual) Lymphocytes % (Manual) Seg Neutrophils # Seg Neutrophils # Man Lymphocytes # (Manual) PT INR POC ABG pH POC ABG pCO2 POC ABG pO2 Sodium Potassium Chloride 95.4 L Carbon Dioxide BUN 37 H Creatinine Glucose 144 H POC Glucose 161 H 142 H Calcium Magnesium AST 88 H Total Creatine Kinase CK-MB (CK-2) Troponin T NT-Pro-B Natriuret Pep Total Protein 6.0 L Albumin 2.9 L HDL Cholesterol 01/24/19 01/24/19 01/24/19 00:21 05:36 12:35 WBC RBC Hgb Hct MCV RDW Plt Count Lymph % (Auto) [place] % (Auto) Lymph # Seg Neutrophils % Seg Neuts % (Manual) Lymphocytes % (Manual) Seg Neutrophils # Seg Neutrophils # Man Lymphocytes # (Manual) PT INR POC ABG pH POC ABG pCO2 POC ABG pO2 Sodium Potassium Chloride Carbon Dioxide BUN Creatinine Glucose POC Glucose 163 H 147 H 263 H Calcium Magnesium AST Total Creatine Kinase CK-MB (CK-2) Troponin T NT-Pro-B Natriuret Pep Total Protein Albumin HDL Cholesterol 01/24/19 01/24/19 01/24/19 17:46 23:07 Unknown WBC RBC 2.90 L Hgb 8.3 L Hct 25.0 L MCV RDW Plt Count Lymph % (Auto) [place] % (Auto) Lymph # Seg Neutrophils % Seg Neuts % (Manual) Lymphocytes % (Manual) Seg Neutrophils # Seg Neutrophils # Man Lymphocytes # (Manual) PT INR POC ABG pH POC ABG pCO2 POC ABG pO2 Sodium Potassium Chloride Carbon Dioxide BUN Creatinine Glucose POC Glucose 161 H 167 H Calcium Magnesium AST Total Creatine Kinase CK-MB (CK-2) Troponin T NT-Pro-B Natriuret Pep Total Protein Albumin HDL Cholesterol 01/24/19 01/25/19 01/25/19 Unknown 05:15 05:15 WBC RBC 2.90 L Hgb 8.4 L Hct 25.2 L MCV RDW Plt Count Lymph % (Auto) [place] % (Auto) Lymph # Seg Neutrophils % Seg Neuts % (Manual) Lymphocytes % (Manual) Seg Neutrophils # Seg Neutrophils # Man Lymphocytes # (Manual) PT INR POC ABG pH POC ABG pCO2 POC ABG pO2 Sodium 134 L 135 L Potassium Chloride 94.4 L 94.0 L Carbon Dioxide BUN 35 H 35 H Creatinine Glucose 151 H 128 H POC Glucose Calcium Magnesium AST Total Creatine Kinase CK-MB (CK-2) Troponin T NT-Pro-B Natriuret Pep Total Protein Albumin HDL Cholesterol 01/25/19 01/25/19 01/25/19 05:15 05:35 11:09 WBC RBC Hgb Hct MCV RDW Plt Count Lymph % (Auto) [place] % (Auto) Lymph # Seg Neutrophils % Seg Neuts % (Manual) Lymphocytes % (Manual) Seg Neutrophils # Seg Neutrophils # Man Lymphocytes # (Manual) PT 18.8 H INR 1.47 H POC ABG pH POC ABG pCO2 POC ABG pO2 Sodium Potassium Chloride Carbon Dioxide BUN Creatinine Glucose POC Glucose 126 H 149 H Calcium Magnesium AST Total Creatine Kinase CK-MB (CK-2) Troponin T NT-Pro-B Natriuret Pep Total Protein Albumin HDL Cholesterol 01/25/19 01/25/19 01/26/19 17:24 23:41 00:09 WBC RBC Hgb Hct MCV RDW Plt Count Lymph % (Auto) [place] % (Auto) Lymph # Seg Neutrophils % Seg Neuts % (Manual) Lymphocytes % (Manual) Seg Neutrophils # Seg Neutrophils # Man Lymphocytes # (Manual) PT INR POC ABG pH POC ABG pCO2 POC ABG pO2 Sodium Potassium Chloride Carbon Dioxide BUN Creatinine Glucose POC Glucose 140 H 142 H 156 H Calcium Magnesium AST Total Creatine Kinase CK-MB (CK-2) Troponin T NT-Pro-B Natriuret Pep Total Protein Albumin HDL Cholesterol 01/26/19 01/26/19 01/26/19 05:05 06:35 06:35 WBC RBC 2.83 L Hgb 8.1 L Hct 24.4 L MCV RDW Plt Count Lymph % (Auto) [place] % (Auto) Lymph # Seg Neutrophils % Seg Neuts % (Manual) Lymphocytes % (Manual) Seg Neutrophils # Seg Neutrophils # Man Lymphocytes # (Manual) PT INR POC ABG pH POC ABG pCO2 POC ABG pO2 Sodium Potassium Chloride 96.9 L Carbon Dioxide BUN 29 H Creatinine Glucose 141 H POC Glucose 159 H Calcium 8.3 L Magnesium AST Total Creatine Kinase CK-MB (CK-2) Troponin T NT-Pro-B Natriuret Pep Total Protein Albumin HDL Cholesterol 01/26/19 01/26/19 01/27/19 13:16 19:10 00:08 WBC RBC Hgb Hct MCV RDW Plt Count Lymph % (Auto) [place] % (Auto) Lymph # Seg Neutrophils % Seg Neuts % (Manual) Lymphocytes % (Manual) Seg Neutrophils # Seg Neutrophils # Man Lymphocytes # (Manual) PT INR POC ABG pH POC ABG pCO2 POC ABG pO2 Sodium Potassium Chloride Carbon Dioxide BUN Creatinine Glucose POC Glucose 159 H 146 H 140 H Calcium Magnesium AST Total Creatine Kinase CK-MB (CK-2) Troponin T NT-Pro-B Natriuret Pep Total Protein Albumin HDL Cholesterol 01/27/19 01/27/19 01/27/19 03:30 03:30 06:23 WBC RBC 2.85 L Hgb 8.3 L Hct 24.8 L MCV RDW Plt Count Lymph % (Auto) [place] % (Auto) Lymph # Seg Neutrophils % Seg Neuts % (Manual) Lymphocytes % (Manual) Seg Neutrophils # Seg Neutrophils # Man Lymphocytes # (Manual) PT INR POC ABG pH POC ABG pCO2 POC ABG pO2 Sodium 136 L Potassium Chloride 97.1 L Carbon Dioxide BUN 26 H Creatinine Glucose 129 H POC Glucose 154 H Calcium Magnesium AST Total Creatine Kinase CK-MB (CK-2) Troponin T NT-Pro-B Natriuret Pep Total Protein Albumin HDL Cholesterol 01/27/19 01/27/19 01/27/19 12:47 17:43 23:31 WBC RBC Hgb Hct MCV RDW Plt Count Lymph % (Auto) [place] % (Auto) Lymph # Seg Neutrophils % Seg Neuts % (Manual) Lymphocytes % (Manual) Seg Neutrophils # Seg Neutrophils # Man Lymphocytes # (Manual) PT INR POC ABG pH POC ABG pCO2 POC ABG pO2 Sodium Potassium Chloride Carbon Dioxide BUN Creatinine Glucose POC Glucose 159 H 180 H 164 H Calcium Magnesium AST Total Creatine Kinase CK-MB (CK-2) Troponin T NT-Pro-B Natriuret Pep Total Protein Albumin HDL Cholesterol 01/28/19 01/28/19 01/28/19 04:35 12:01 12:01 WBC RBC 2.67 L Hgb 7.9 L Hct 22.9 L MCV RDW Plt Count Lymph % (Auto) [place] % (Auto) Lymph # Seg Neutrophils % Seg Neuts % (Manual) Lymphocytes % (Manual) Seg Neutrophils # Seg Neutrophils # Man Lymphocytes # (Manual) PT INR POC ABG pH POC ABG pCO2 POC ABG pO2 Sodium 136 L Potassium 3.5 L Chloride Carbon Dioxide BUN 18 H Creatinine Glucose 143 H POC Glucose 139 H Calcium 8.0 L Magnesium AST Total Creatine Kinase CK-MB (CK-2) Troponin T NT-Pro-B Natriuret Pep Total Protein Albumin HDL Cholesterol 01/28/19 01/28/19 01/28/19 12:04 16:59 17:11 WBC RBC Hgb Hct MCV RDW Plt Count Lymph % (Auto) [place] % (Auto) Lymph # Seg Neutrophils % Seg Neuts % (Manual) Lymphocytes % (Manual) Seg Neutrophils # Seg Neutrophils # Man Lymphocytes # (Manual) PT INR POC ABG pH 7.488 H POC ABG pCO2 34.1 L POC ABG pO2 Sodium Potassium Chloride Carbon Dioxide BUN Creatinine Glucose POC Glucose 143 H 163 H Calcium Magnesium AST Total Creatine Kinase CK-MB (CK-2) Troponin T NT-Pro-B Natriuret Pep Total Protein Albumin HDL Cholesterol 01/29/19 01/29/19 01/29/19 00:10 05:47 12:08 WBC RBC Hgb Hct MCV RDW Plt Count Lymph % (Auto) [place] % (Auto) Lymph # Seg Neutrophils % Seg Neuts % (Manual) Lymphocytes % (Manual) Seg Neutrophils # Seg Neutrophils # Man Lymphocytes # (Manual) PT INR POC ABG pH POC ABG pCO2 POC ABG pO2 Sodium Potassium Chloride Carbon Dioxide BUN Creatinine Glucose POC Glucose 171 H 187 H 137 H Calcium Magnesium AST Total Creatine Kinase CK-MB (CK-2) Troponin T NT-Pro-B Natriuret Pep Total Protein Albumin HDL Cholesterol 01/29/19 01/29/19 01/29/19 16:48 16:54 17:47 WBC RBC Hgb Hct MCV RDW Plt Count Lymph % (Auto) [place] % (Auto) Lymph # Seg Neutrophils % Seg Neuts % (Manual) Lymphocytes % (Manual) Seg Neutrophils # Seg Neutrophils # Man Lymphocytes # (Manual) PT INR POC ABG pH 7.486 H 7.512 H POC ABG pCO2 32.8 L 32.7 L POC ABG pO2 108 H Sodium Potassium Chloride Carbon Dioxide BUN Creatinine Glucose POC Glucose 156 H Calcium Magnesium AST Total Creatine Kinase CK-MB (CK-2) Troponin T NT-Pro-B Natriuret Pep Total Protein Albumin HDL Cholesterol 01/29/19 01/30/19 01/30/19 23:48 06:45 07:18 WBC RBC 2.94 L Hgb 8.6 L Hct 25.7 L MCV RDW Plt Count Lymph % (Auto) [place] % (Auto) Lymph # Seg Neutrophils % Seg Neuts % (Manual) Lymphocytes % (Manual) Seg Neutrophils # Seg Neutrophils # Man Lymphocytes # (Manual) PT INR POC ABG pH POC ABG pCO2 POC ABG pO2 Sodium 135 L Potassium Chloride Carbon Dioxide BUN Creatinine Glucose 141 H POC Glucose 185 H Calcium 8.3 L Magnesium AST Total Creatine Kinase CK-MB (CK-2) Troponin T NT-Pro-B Natriuret Pep Total Protein Albumin HDL Cholesterol 01/30/19 01/30/19 01/30/19 11:17 16:47 18:16 WBC RBC Hgb Hct MCV RDW Plt Count Lymph % (Auto) [place] % (Auto) Lymph # Seg Neutrophils % Seg Neuts % (Manual) Lymphocytes % (Manual) Seg Neutrophils # Seg Neutrophils # Man Lymphocytes # (Manual) PT INR POC ABG pH 7.508 H POC ABG pCO2 31.5 L POC ABG pO2 135 H Sodium Potassium Chloride Carbon Dioxide BUN Creatinine Glucose POC Glucose 170 H 108 H Calcium Magnesium AST Total Creatine Kinase CK-MB (CK-2) Troponin T NT-Pro-B Natriuret Pep Total Protein Albumin HDL Cholesterol 01/30/19 01/31/19 01/31/19 23:38 05:45 12:04 WBC RBC Hgb Hct MCV RDW Plt Count Lymph % (Auto) [place] % (Auto) Lymph # Seg Neutrophils % Seg Neuts % (Manual) Lymphocytes % (Manual) Seg Neutrophils # Seg Neutrophils # Man Lymphocytes # (Manual) PT INR POC ABG pH POC ABG pCO2 POC ABG pO2 Sodium Potassium Chloride Carbon Dioxide BUN Creatinine Glucose POC Glucose 146 H 121 H 152 H Calcium Magnesium AST Total Creatine Kinase CK-MB (CK-2) Troponin T NT-Pro-B Natriuret Pep Total Protein Albumin HDL Cholesterol 01/31/19 01/31/19 02/01/19 17:44 23:58 05:46 WBC RBC Hgb Hct MCV RDW Plt Count Lymph % (Auto) [place] % (Auto) Lymph # Seg Neutrophils % Seg Neuts % (Manual) Lymphocytes % (Manual) Seg Neutrophils # Seg Neutrophils # Man Lymphocytes # (Manual) PT INR POC ABG pH POC ABG pCO2 POC ABG pO2 Sodium Potassium Chloride Carbon Dioxide BUN Creatinine Glucose POC Glucose 153 H 183 H 116 H Calcium Magnesium AST Total Creatine Kinase CK-MB (CK-2) Troponin T NT-Pro-B Natriuret Pep Total Protein Albumin HDL Cholesterol 02/01/19 02/01/19 02/01/19 11:10 12:18 17:48 WBC RBC Hgb Hct MCV RDW Plt Count Lymph % (Auto) [place] % (Auto) Lymph # Seg Neutrophils % Seg Neuts % (Manual) Lymphocytes % (Manual) Seg Neutrophils # Seg Neutrophils # Man Lymphocytes # (Manual) PT INR POC ABG pH POC ABG pCO2 POC ABG pO2 Sodium 133 L Potassium 3.3 L Chloride 96.1 L Carbon Dioxide BUN Creatinine Glucose 145 H POC Glucose 175 H 129 H Calcium 8.3 L Magnesium AST Total Creatine Kinase CK-MB (CK-2) Troponin T NT-Pro-B Natriuret Pep Total Protein Albumin HDL Cholesterol 02/01/19 02/02/19 02/02/19 23:13 05:16 06:00 WBC RBC Hgb Hct MCV RDW Plt Count Lymph % (Auto) [place] % (Auto) Lymph # Seg Neutrophils % Seg Neuts % (Manual) Lymphocytes % (Manual) Seg Neutrophils # Seg Neutrophils # Man Lymphocytes # (Manual) PT INR POC ABG pH POC ABG pCO2 POC ABG pO2 Sodium 135 L Potassium Chloride Carbon Dioxide BUN 18 H Creatinine Glucose 121 H POC Glucose 143 H 140 H Calcium 8.3 L Magnesium 1.60 L AST Total Creatine Kinase CK-MB (CK-2) Troponin T NT-Pro-B Natriuret Pep Total Protein Albumin HDL Cholesterol 02/02/19 02/02/19 02/02/19 12:06 18:23 23:45 WBC RBC Hgb Hct MCV RDW Plt Count Lymph % (Auto) [place] % (Auto) Lymph # Seg Neutrophils % Seg Neuts % (Manual) Lymphocytes % (Manual) Seg Neutrophils # Seg Neutrophils # Man Lymphocytes # (Manual) PT INR POC ABG pH POC ABG pCO2 POC ABG pO2 Sodium Potassium Chloride Carbon Dioxide BUN Creatinine Glucose POC Glucose 156 H 159 H 139 H Calcium Magnesium AST Total Creatine Kinase CK-MB (CK-2) Troponin T NT-Pro-B Natriuret Pep Total Protein Albumin HDL Cholesterol 02/03/19 02/03/19 02/03/19 05:19 12:02 17:24 WBC RBC Hgb Hct MCV RDW Plt Count Lymph % (Auto) [place] % (Auto) Lymph # Seg Neutrophils % Seg Neuts % (Manual) Lymphocytes % (Manual) Seg Neutrophils # Seg Neutrophils # Man Lymphocytes # (Manual) PT INR POC ABG pH POC ABG pCO2 POC ABG pO2 Sodium Potassium Chloride Carbon Dioxide BUN Creatinine Glucose POC Glucose 147 H 163 H 144 H Calcium Magnesium AST Total Creatine Kinase CK-MB (CK-2) Troponin T NT-Pro-B Natriuret Pep Total Protein Albumin HDL Cholesterol 02/03/19 02/04/19 02/04/19 23:43 05:30 11:14 WBC RBC 3.00 L Hgb 8.7 L Hct 25.9 L MCV RDW Plt Count Lymph % (Auto) 11.5 L [place] % (Auto) 7.5 H Lymph # 0.8 L Seg Neutrophils % 79.6 H Seg Neuts % (Manual) Lymphocytes % (Manual) Seg Neutrophils # Seg Neutrophils # Man Lymphocytes # (Manual) PT INR POC ABG pH POC ABG pCO2 POC ABG pO2 Sodium Potassium Chloride Carbon Dioxide BUN Creatinine Glucose POC Glucose 131 H 145 H Calcium Magnesium AST Total Creatine Kinase CK-MB (CK-2) Troponin T NT-Pro-B Natriuret Pep Total Protein Albumin HDL Cholesterol 02/04/19 02/04/19 11:14 12:09 WBC RBC Hgb Hct MCV RDW Plt Count Lymph % (Auto) [place] % (Auto) Lymph # Seg Neutrophils % Seg Neuts % (Manual) Lymphocytes % (Manual) Seg Neutrophils # Seg Neutrophils # Man Lymphocytes # (Manual) PT INR POC ABG pH POC ABG pCO2 POC ABG pO2 Sodium Potassium Chloride 96.5 L Carbon Dioxide BUN 30 H Creatinine Glucose 142 H POC Glucose 149 H Calcium Magnesium AST Total Creatine Kinase CK-MB (CK-2) Troponin T NT-Pro-B Natriuret Pep Total Protein Albumin HDL Cholesterol Chest x-ray: pending Allied health notes reviewed: nursing
[2019-02-05] MEDS: HumaLOG SUB-Q SCH ×4 (00:29→18:50)
[2019-02-05] MEDS: DUONEB *Not for PRN Use IH SCH ×4 (03:27→20:47)
[2019-02-05] MEDS: REGLAN IV SCH ×3 (05:17→22:39)
[2019-02-05] MEDS: LASIX PO SCH ×2 (05:17→17:23)
[2019-02-05 05:54] LABS: Basophils % (Auto) 0.4 % (0.0-1.8); Eosinophils # (Auto) 0.1 K/mm3 (0.0-0.4); Eosinophils % (Auto) 1.1 % (0.0-4.3); Hematocrit 31.7 % (30.3-42.9); Hemoglobin 10.3 gm/dl (10.1-14.3); Lymphocytes # (Auto) 0.9 K/mm3 (1.2-5.4); Lymphocytes % (Auto) 12.3 % (13.4-35.0); Mean Corpuscular HGB Conc 33 % (30-34); Mean Corpuscular Volume 88 fl (79-97); Monocytes # (Auto) 0.5 K/mm3 (0.0-0.8); Monocytes % (Auto) 7.1 % (0.0-7.3); Platelet Count 250 K/mm3 (140-440); Red Blood Count 3.61 M/mm3 (3.65-5.03); Red Cell Distribution Width 14.7 % (13.2-15.2)
[2019-02-05 06:08] LABS: BUN/Creatinine Ratio 37; Blood Urea Nitrogen 26 mg/dL (7-17); Calcium 9.5 mg/dL (8.4-10.2); Hemolysis Index 4
[2019-02-05] MEDS: BABY ASPIRIN PO SCH (09:27)
[2019-02-05] MEDS: NORVASC PO SCH (09:27)
[2019-02-05] MEDS: KENALOG TP SCH ×2 (09:27→22:39)
[2019-02-05] MEDS: KEPPRA PO SCH ×2 (09:27→22:38)
[2019-02-05] MEDS: COREG PO SCH ×2 (09:27→22:38)
[2019-02-05] MEDS: LOVENOX SUB-Q SCH (09:31)
--- NOTE | 2019-02-05 09:50 | Progress Note ---
Assessment and Plan Assessment and plan: Cardiopulmonary arrest. Patient with out of hospital PEA arrest and ROSC. Cardiology following. Acute hypoxemic hypercapnic respiratory failure. Patient previously on mechanical ventilation but has been weaned. Continue ATP trials. Continue trach care. Aspiration pneumonia. Continue IV antibiotics per ID. Aspiration precautions. Sepsis. Tracheal aspirate and blood cultures are negative to date. ID following. Anoxic encephalopathy. EEG 01/17/19 reported as abnormal with minimal brain activ ity. No epileptiform discharges. Neurology following Oropharyngeal dysphagia. I have asked Gen surgery(Dr Bassett) to revisit for possible surgical placement of G-tube given the recommendation in Dr. Rita LEWIS of 02/01/19 Acute renal failure. Etiology likely secondary to acute kidney injury from sepsis. Creatinine is stable. Continue to monitor. Pulmonary hypertension. Consider CT of the chest when medically stable. Acute systolic heart failure. Patient with moderate global hypokinesis of left ventricle EF 35-40% and left ventricular systolic function moderately decreased. CAD s/p stent placement She goes to applications administrator at [facility]. Patient transferred to the floor yesterday. History Interval history: Patient is 73 yo with hypertension, CAD s/p stent, COPD/emphesema, not on home Oxygen. She was Brought in by paramedics 01/15/19 after cardiorespiratory arrest at home. History obtained from daughter and granddaughter at bedside. Patient called a family member that she had more shortness of breath . Family member lives in same Apartment complex, same floor, came to her, found her on floor not breathing, started CPR, called paramedics. She was in jhon PEA, given 2 rounds Epinephrine, CPR, intubated , resuscitated, and brought to ED. Patient was seen and evaluated in ED and admitted to ICU. She was evaluated by Pulm onology/Supervisor Assembly Room. She had seizures later same day, was started on keppra. Shwe had CARMELINA on presentation, resolved in few days. She remained comatose, acute respiratory failure vent dependent. Trach and PEG was recommended. Tracheostomy done 01/25. PEG not done yet because of abdominal distension. She has poor prognosis. may need LTAC Hospitalist Physical - Constitutional Vitals: Temp Pulse Resp BP Pulse Ox 97.6 F 85 20 115/66 95 02/05/19 08:45 02/05/19 09:41 02/05/19 09:41 02/05/19 08:45 02/05/19 09:41 General appearance: Present: other (trached, nonresponsive at time of exa mination) - EENT Eyes: Present: PERRL, EOM intact ENT: hearing intact, clear oral mucosa, dentition normal - Neck Neck: Present: supple, normal ROM - Respiratory Respiratory effort: normal Respiratory: bilateral: CTA - Cardiovascular Rhythm: regular Heart Sounds: Present: S1 & S2. Absent: gallop, rub - Extremities Extremities: no ischemia, No edema, Full ROM - Abdominal General gastrointestinal: soft, non-tender, non-distended, normal bowel sounds - Integumentary Integumentary: Present: clear, warm, dry - Neurologic Neurologic: CNII-XII intact, moves all extremities Results - Labs CBC & Chem 7: 02/05/19 04:27 02/05/19 04:27 Labs: Laboratory Last Values WBC 7.7 K/mm3 (4.5-11.0) 02/05/19 04:27 RBC 3.61 M/mm3 (3.65-5.03) L 02/05/19 04:27 Hgb 10.3 gm/dl (10.1-14.3) 02/05/19 04:27 Hct 31.7 % (30.3-42.9) 02/05/19 04:27 MCV 88 fl (79-97) 02/05/19 04:27 MCH 29 pg (28-32) 02/05/19 04:27 MCHC 33 % (30-34) 02/05/19 04:27 RDW 14.7 % (13.2-15.2) 02/05/19 04:27 Plt Count 250 K/mm3 (140-440) 02/05/19 04:27 Lymph % (Auto) 12.3 % (13.4-35.0) L 02/05/19 04:27 [place] % (Auto) 7.1 % (0.0-7.3) 02/05/19 04:27 Eos % (Auto) 1.1 % (0.0-4.3) 02/05/19 04:27 Baso % (Auto) 0.4 % (0.0-1.8) 02/05/19 04:27 Lymph # 0.9 K/mm3 (1.2-5.4) L 02/05/19 04:27 [place] # 0.5 K/mm3 (0.0-0.8) 02/05/19 04:27 Eos # 0.1 K/mm3 (0.0-0.4) 02/05/19 04:27 Baso # 0.0 K/mm3 (0.0-0.1) 02/05/19 04:27 Add Manual Diff Complete 01/16/19 04:16 Total Counted 100 01/16/19 04:16 Seg Neutrophils % 79.1 % (40.0-70.0) H 02/05/19 04:27 Seg Neuts % (Manual) 74.0 % (40.0-70.0) H 01/16/19 04:16 22.0 % 01/16/19 04:16 2.0 % (13.4-35.0) L 01/16/19 04:16 Reactive Lymphs % (Man) 0 % 01/16/19 04:16 2.0 % (0.0-7.3) 01/16/19 04:16 0 % (0.0-4.3) 01/16/19 04:16 0 % (0.0-1.8) 01/16/19 04:16 0 % 01/16/19 04:16 0 % 01/16/19 04:16 0 % 01/16/19 04:16 0 % 01/16/19 04:16 Nucleated RBC % Not Reportable 01/16/19 04:16 Seg Neutrophils # 6.1 K/mm3 (1.8-7.7) 02/05/19 04:27 Seg Neutrophils # Man 8.4 K/mm3 (1.8-7.7) H 01/16/19 04:16 Band Neutrophils # 2.5 K/mm3 01/16/19 04:16 0.2 K/mm3 (1.2-5.4) L 01/16/19 04:16 Abs React Lymphs (Man) 0.0 K/mm3 01/16/19 04:16 0.2 K/mm3 (0.0-0.8) 01/16/19 04:16 0.0 K/mm3 (0.0-0.4) 01/16/19 04:16 0.0 K/mm3 (0.0-0.1) 01/16/19 04:16 0.0 K/mm3 01/16/19 04:16 0.0 K/mm3 01/16/19 04:16 0.0 K/mm3 01/16/19 04:16 Blast Cells # 0.0 K/mm3 01/16/19 04:16 WBC Morphology Not Reportable 01/16/19 04:16 Hypersegmented Neuts Not Reportable 01/16/19 04:16 Hyposegmented Neuts Not Reportable 01/16/19 04:16 Hypogranular Neuts Not Reportable 01/16/19 04:16 Not Reportable 01/16/19 04:16 Not Reportable 01/16/19 04:16 Not Reportable 01/16/19 04:16 Not Reportable 01/16/19 04:16 Not Reportable 01/16/19 04:16 Not Reportable 01/16/19 04:16 Consistent w auto 01/16/19 04:16 Not Reportable 01/16/19 04:16 Plt Clumps, EDTA Not Reportable 01/16/19 04:16 Not Reportable 01/16/19 04:16 Not Reportable 01/16/19 04:16 Not Reportable 01/16/19 04:16 Plt Morphology Comment Not Reportable 01/16/19 04:16 RBC Morphology Normal 01/16/19 04:16 Dimorphic RBCs Not Reportable 01/16/19 04:16 Not Reportable 01/16/19 04:16 Not Reportable 01/16/19 04:16 Not Reportable 01/16/19 04:16 Not Reportable 01/16/19 04:16 Not Reportable 01/16/19 04:16 Not Reportable 01/16/19 04:16 Not Reportable 01/16/19 04:16 Not Reportable 01/16/19 04:16 Not Reportable 01/16/19 04:16 Not Reportable 01/16/19 04:16 Not Reportable 01/16/19 04:16 Not Reportable 01/16/19 04:16 Not Reportable 01/16/19 04:16 Not Reportable 01/16/19 04:16 Not Reportable 01/16/19 04:16 Not Reportable 01/16/19 04:16 Not Reportable 01/16/19 04:16 Not Reportable 01/16/19 04:16 Not Reportable 01/16/19 04:16 Acanthocytes (Spur) Not Reportable 01/16/19 04:16 Rouleaux Not Reportable 01/16/19 04:16 Not Reportable 01/16/19 04:16 Not Reportable 01/16/19 04:16 Not Reportable 01/16/19 04:16 Not Reportable 01/16/19 04:16 Hem Pathologist Commnt No 01/16/19 04:16 PT 18.8 Sec. (12.2-14.9) H 01/25/19 05:15 INR 1.47 (0.87-1.13) H 01/25/19 05:15 APTT 36.0 Sec. (24.2-36.6) 01/15/19 07:50 Heparin Anti-Xa, Unfract Negative (Negative) 01/19/19 Unknown POC ABG pH 7.508 (7.35-7.45) H 01/30/19 16:47 POC ABG pCO2 31.5 (35-45) L 01/30/19 16:47 POC ABG pO2 135 (80-105) H 01/30/19 16:47 POC ABG HCO3 25.0 (22-26 mml/L) 01/30/19 16:47 POC ABG Total CO2 26 (23-27mmol/L) 01/30/19 16:47 POC ABG O2 Sat 99 01/30/19 16:47 POC ABG Base Excess 2 ((-2) - (+3)mmol/L) 01/30/19 16:47 28 % 01/30/19 16:47 Sodium 138 mmol/L (137-145) 02/05/19 04:27 Potassium 4.4 mmol/L (3.6-5.0) 02/05/19 04:27 Chloride 96.0 mmol/L (98-107) L 02/05/19 04:27 Carbon Dioxide 28 mmol/L (22-30) 02/05/19 04:27 18 mmol/L 02/05/19 04:27 BUN 26 mg/dL (7-17) H 02/05/19 04:27 0.7 mg/dL (0.7-1.2) 02/05/19 04:27 Estimated GFR > 60 ml/min 02/05/19 04:27 37 % 02/05/19 04:27 Glucose 118 mg/dL (65-100) H 02/05/19 04:27 POC Glucose 162 (70-105) H 02/05/19 05:51 6.0 % (4-6) 01/15/19 11:53 Calcium 9.5 mg/dL (8.4-10.2) 02/05/19 04:27 Phosphorus 3.10 mg/dL (2.5-4.5) 02/02/19 06:00 Magnesium 1.60 mg/dL (1.7-2.3) L 02/02/19 06:00 0.30 mg/dL (0.1-1.2) 01/23/19 Unknown AST 88 units/L (5-40) H 01/23/19 Unknown ALT 31 units/L (7-56) 01/23/19 Unknown 48 units/L (35-129) 01/23/19 Unknown 1430 units/L (30-135) H 01/15/19 17:52 CK-MB (CK-2) 13.5 ng/mL (0.0-4.0) H 01/15/19 17:52 CK-MB (CK-2) Rel Index 0.9 (0-4) 01/15/19 17:52 0.036 ng/mL (0.00-0.029) H D 01/15/19 17:52 NT-Pro-B Natriuret Pep 5346 pg/mL (0-900) H 01/15/19 07:50 6.0 g/dL (6.3-8.2) L 01/23/19 Unknown 2.9 g/dL (3.9-5) L 01/23/19 Unknown 0.9 % 01/23/19 Unknown Triglycerides 75 mg/dL (2-149) 01/15/19 17:52 Cholesterol 149 mg/dL (50-199) 01/15/19 17:52 84 mg/dL (50-130) 01/15/19 17:52 65 mg/dL (40-59) H 01/15/19 17:52 2.29 % 01/15/19 17:52 See scanned report 01/19/19 Unknown Yellow (Yellow) 01/21/19 16:10 Clear (Clear) 01/21/19 16:10 6.0 (5.0-7.0) 01/21/19 16:10 Ur Specific [place] 1.015 (1.003-1.030) 01/21/19 16:10 <15 mg/dl mg/dL (Negative) 01/21/19 16:10 Neg mg/dL (Negative) 01/21/19 16:10 Neg mg/dL (Negative) 01/21/19 16:10 Neg (Negative) 01/21/19 16:10 Neg (Negative) 01/21/19 16:10 Neg (Negative) 01/21/19 16:10 2.0 mg/dL (<2.0) 01/21/19 16:10 Ur Leukocyte Esterase Neg (Negative) 01/21/19 16:10 1.0 /HPF (0.0-6.0) 01/21/19 16:10 5.0 /HPF (0.0-6.0) 01/21/19 16:10 Presumptive negative 01/15/19 16:30 Presumptive negative 01/15/19 16:30 Ur Barbiturates Screen Presumptive negative 01/15/19 16:30 Ur Phencyclidine Scrn Presumptive negative 01/15/19 16:30 Ur Amphetamines Screen Presumptive negative 01/15/19 16:30 U Benzodiazepines Scrn Presumptive negative 01/15/19 16:30 Presumptive negative 01/15/19 16:30 U Marijuana (THC) Screen Presumptive negative 01/15/19 16:30 Disclamer 01/15/19 16:30 Heparin-induced Plt Ab Negative (Negative) 01/19/19 Unknown UF Heparin High Dose 3 % Release 01/19/19 Unknown JOSEFA UFH Low Dose 0.1 4 % Release 01/19/19 Unknown JOSEFA UFH Low Dose 0.5 5 % Release 01/19/19 Unknown C. difficile Tox (PCR) Negative (Negative) 01/16/19 00:00 Active Medications - Current Medications Current Medications: Generic Name Dose Route Start Last Admin Trade Name Freq PRN Reason Stop Dose Admin Acetaminophen 650 mg 01/16/19 09:37 01/20/19 00:24 Tylenol PO 650 mg Q4H PRN Administration Fever >101 Albuterol/Ipratropium 1 ampul 01/15/19 14:00 05/20/19 09:41 Duoneb *Not For Prn Use* IH 1 ampul Q6HRT DEON Administration Amlodipine Besylate 10 mg 01/24/19 12:00 02/05/19 09:27 Norvasc PO 10 mg DAILY DEON Administration Lipase/Protease/Amylase 1 each 02/02/19 14:21 Pancredelia Siddiqui 10,500 Unit FEEDTUBE PRN PRN For Clogged Feeding Tube Aspirin 81 mg 01/16/19 10:00 02/05/19 09:27 Baby Aspirin PO 81 mg QDAY DEON Administration Atorvastatin Calcium 20 mg 01/16/19 22:00 02/04/19 22:43 Lipitor PO 20 mg QHS DEON Administration Carvedilol 12.5 mg 01/24/19 22:00 02/05/19 09:27 Coreg PO 12.5 mg BID DEON Administration Enoxaparin Sodium 40 mg 01/30/19 10:00 02/05/19 09:31 Lovenox SUB-Q 40 mg QDAY@1000 DEON Administration Furosemide 20 mg 01/19/19 18:00 02/05/19 05:17 Lasix PO 20 mg 0600,1800 DEON Administration Insulin Human Lispro 0 unit 01/22/19 14:00 02/05/19 06:02 Humalog SUB-Q 2 unit Q6HR DEON Administration Protocol Lansoprazole 30 mg 01/30/19 10:00 02/04/19 22:43 Prevacid Solutab FEEDTUBE 30 mg BID DEON Administration Levetiracetam 750 mg 01/18/19 10:00 02/05/19 09:27 Keppra PO 750 mg BID DEON Administration Metoclopramide HCl 10 mg 02/01/19 14:00 02/05/19 05:17 Reglan IV 10 mg Q8HR DEON Administration Simple Syrup 15 ml 02/02/19 14:21 Simple Syrup FEEDTUBE PRN PRN Hypoglycemia Simple Syrup 30 ml 02/02/19 14:21 Simple Syrup FEEDTUBE PRN PRN Hypoglycemia Sodium Bicarbonate 325 mg 02/02/19 14:21 Sodium Bicarbonate FEEDTUBE PRN PRN For Clogged Feeding Tube Sodium Chloride 10 ml 01/15/19 22:00 02/04/19 22:43 Sodium Chloride Flush Syringe 10 Ml IV 10 ml BID DEON Administration Sodium Chloride 10 ml 01/15/19 10:34 01/29/19 12:43 Sodium Chloride Flush Syringe 10 Ml IV 10 ml PRN PRN Administration LINE FLUSH Triamcinolone Acetonide 1 applic 01/24/19 14:00 02/05/19 09:27 Kenalog TP 1 applic BID DEON Administration Nutrition/Malnutrition Assess - Dietary Evaluation Nutrition/Malnutrition Findings: Nutrition Notes Start: 01/15/19 14:28 Freq: Status: Active Protocol: Document 02/02/19 14:15 RM (Rec: 02/02/19 14:21 RM [id number]) Nutrition Notes Initial or Follow up Reassessment Current Diagnosis Acute Kidney Injury,Heart Failure,Respiratory Failure Other Pertinent Diagnosis Ileus, dysphagia, s/p cardiorespiratory arrest (at home) Current Diet Glucerna 1.2 at 5 ml/hr Labs/Tests Na 135 Pertinent Medications D5 1/2NS + 20mEq KCl at 50ml/ hr, Reglan, Lasix Height 5 ft 4 in Weight 48.5 kg [place] Body Weight (kg) 54.54 BMI 18.3 Subjective/Other Information Pt had several BMs last night. During rounds MD ordered D/C of TPN and to resume TF. Burn Absent Trauma Absent #1 Nutrition Diagnosis Inadequate oral intake Diagnosis Progress(for reassessment Continues documentation) Is patient on ventilator? Yes Is Patient Ambulatory and/or Out of Bed No REE-([facility]-confined to bed) 1164.624 Kcal/Kg value to use for calculation 35 Approximate Energy Requirements Using 1698 kcal/Kg Calculation Used for Recommendations Kcal/kg Additional Notes Pro needs 1.2-2g/k-92g/ day Fluid needs 1ml/kcal Nutrition Intervention Nutrition Support: Glucerna 1.2 at 50ml/hr with 80ml water flush q4h. Kcal 1,440 Protein (gm) 72 Carbohydrates (gm) 137 Fluid (mL) 966 Fiber (gm) 19 Goal #1 Meet at least 80% of calorie and protein needs via TF Goal #2 Wt maintenance and/or gain Follow-Up By: 02/05/19 Additional Comments Follow for TF tolerance
--- NOTE | 2019-02-05 11:57 | XRay Report ---
PROCEDURE: XR CHEST 1V AP TECHNIQUE: Chest radiograph single view. HISTORY: pneumonia; s/p tracheostomy COMPARISONS: Chest x-ray January 20, 2019 . FINDINGS: Tracheostomy tube now in place with standard position NG tube with tip below diaphragm Right PICC with tip SVC Increase in patchy right base airspace disease. Stringy left base airspace disease is stable Blunting right costophrenic sulcus which may represent trace effusion No pneumothorax IMPRESSION: Interval placement tracheostomy tube with standard position Increase in right basilar airspace disease and trace effusion. This document is electronically signed by Regis Arciniega MD., Feb 05 2019 11:55:54 AM ET
--- NOTE | 2019-02-05 15:46 | Progress Note ---
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 Objective - Vital Sign Vital Signs - 12hr 02/05/19 02/05/19 02/05/19 04:28 08:00 08:45 Temperature 97.5 F L 97.6 F Pulse Rate 82 Pulse Rate [ Anterior Bilateral Throughout] Respiratory 18 18 Rate Respiratory Rate [Anterior Bilateral Throughout] Blood Pressure 116/65 115/66 O2 Sat by Pulse 100 100 Oximetry 02/05/19 02/05/19 02/05/19 09:41 09:51 13:36 Temperature Pulse Rate Pulse Rate [ 85 80 79 Anterior Bilateral Throughout] Respiratory Rate Respiratory 20 20 20 Rate [Anterior Bilateral Throughout] Blood Pressure O2 Sat by Pulse 95 Oximetry - Laboratory Findings CBC and BMP: 02/05/19 04:27 02/05/19 04:27 Abnormal Lab Findings: Abnormal Labs 01/15/19 01/15/19 01/15/19 07:50 07:50 07:50 WBC RBC Hgb Hct MCV 99 H RDW 16.7 H Plt Count 122 L Lymph % (Auto) [place] % (Auto) Lymph # Seg Neutrophils % Seg Neuts % (Manual) Lymphocytes % (Manual) Seg Neutrophils # Seg Neutrophils # Man Lymphocytes # (Manual) PT 19.7 H INR 1.56 H POC ABG pH POC ABG pCO2 POC ABG pO2 Sodium Potassium Chloride Carbon Dioxide 11 L BUN Creatinine 1.4 H Glucose 268 H POC Glucose Calcium Magnesium AST 57 H Total Creatine Kinase CK-MB (CK-2) Troponin T NT-Pro-B Natriuret Pep 5346 H Total Protein Albumin 3.6 L HDL Cholesterol 01/15/19 01/15/19 01/15/19 09:56 11:53 17:52 WBC RBC Hgb Hct MCV RDW Plt Count Lymph % (Auto) [place] % (Auto) Lymph # Seg Neutrophils % Seg Neuts % (Manual) Lymphocytes % (Manual) Seg Neutrophils # Seg Neutrophils # Man Lymphocytes # (Manual) PT INR POC ABG pH 7.186 L POC ABG pCO2 46.4 H POC ABG pO2 Sodium Potassium Chloride Carbon Dioxide BUN Creatinine Glucose POC Glucose Calcium Magnesium AST Total Creatine Kinase 683 H 1430 H CK-MB (CK-2) 9.5 H 13.5 H Troponin T 0.036 H D NT-Pro-B Natriuret Pep Total Protein Albumin HDL Cholesterol 65 H 01/15/19 01/15/19 01/16/19 18:31 21:46 02:14 WBC RBC Hgb Hct MCV RDW Plt Count Lymph % (Auto) [place] % (Auto) Lymph # Seg Neutrophils % Seg Neuts % (Manual) Lymphocytes % (Manual) Seg Neutrophils # Seg Neutrophils # Man Lymphocytes # (Manual) PT INR POC ABG pH POC ABG pCO2 31.8 L POC ABG pO2 167 H Sodium Potassium Chloride Carbon Dioxide BUN Creatinine Glucose POC Glucose 134 H 136 H Calcium Magnesium AST Total Creatine Kinase CK-MB (CK-2) Troponin T NT-Pro-B Natriuret Pep Total Protein Albumin HDL Cholesterol 01/16/19 01/16/19 01/16/19 04:16 04:16 05:05 WBC 11.4 H RBC Hgb Hct MCV RDW Plt Count 105 L Lymph % (Auto) [place] % (Auto) Lymph # Seg Neutrophils % Seg Neuts % (Manual) 74.0 H Lymphocytes % (Manual) 2.0 L Seg Neutrophils # Seg Neutrophils # Man 8.4 H Lymphocytes # (Manual) 0.2 L PT INR POC ABG pH 7.458 H POC ABG pCO2 31.4 L POC ABG pO2 135 H Sodium Potassium 3.3 L Chloride Carbon Dioxide 21 L D BUN 24 H Creatinine 1.5 H Glucose 141 H POC Glucose Calcium 8.1 L Magnesium AST 71 H Total Creatine Kinase CK-MB (CK-2) Troponin T NT-Pro-B Natriuret Pep Total Protein 6.2 L Albumin 3.5 L HDL Cholesterol 01/16/19 01/16/19 01/16/19 05:24 13:42 21:08 WBC RBC Hgb Hct MCV RDW Plt Count Lymph % (Auto) [place] % (Auto) Lymph # Seg Neutrophils % Seg Neuts % (Manual) Lymphocytes % (Manual) Seg Neutrophils # Seg Neutrophils # Man Lymphocytes # (Manual) PT INR POC ABG pH POC ABG pCO2 POC ABG pO2 Sodium Potassium Chloride Carbon Dioxide BUN Creatinine Glucose POC Glucose 137 H 129 H 122 H Calcium Magnesium AST Total Creatine Kinase CK-MB (CK-2) Troponin T NT-Pro-B Natriuret Pep Total Protein Albumin HDL Cholesterol 01/17/19 01/17/19 01/17/19 02:18 04:23 05:13 WBC RBC Hgb Hct MCV RDW Plt Count Lymph % (Auto) [place] % (Auto) Lymph # Seg Neutrophils % Seg Neuts % (Manual) Lymphocytes % (Manual) Seg Neutrophils # Seg Neutrophils # Man Lymphocytes # (Manual) PT INR POC ABG pH 7.479 H POC ABG pCO2 30.0 L POC ABG pO2 141 H Sodium Potassium Chloride Carbon Dioxide BUN Creatinine Glucose POC Glucose 139 H 128 H Calcium Magnesium AST Total Creatine Kinase CK-MB (CK-2) Troponin T NT-Pro-B Natriuret Pep Total Protein Albumin HDL Cholesterol 01/17/19 01/17/19 01/17/19 10:22 15:59 18:45 WBC RBC Hgb Hct MCV RDW Plt Count Lymph % (Auto) [place] % (Auto) Lymph # Seg Neutrophils % Seg Neuts % (Manual) Lymphocytes % (Manual) Seg Neutrophils # Seg Neutrophils # Man Lymphocytes # (Manual) PT INR POC ABG pH POC ABG pCO2 POC ABG pO2 Sodium Potassium Chloride Carbon Dioxide BUN Creatinine Glucose POC Glucose 133 H 121 H 106 H Calcium Magnesium AST Total Creatine Kinase CK-MB (CK-2) Troponin T NT-Pro-B Natriuret Pep Total Protein Albumin HDL Cholesterol 01/17/19 01/18/19 01/18/19 23:35 04:21 04:21 WBC RBC 3.27 L Hgb 9.6 L Hct 29.9 L MCV RDW Plt Count 79 L Lymph % (Auto) 6.0 L [place] % (Auto) Lymph # 0.5 L Seg Neutrophils % 89.2 H Seg Neuts % (Manual) Lymphocytes % (Manual) Seg Neutrophils # 8.1 H Seg Neutrophils # Man Lymphocytes # (Manual) PT INR POC ABG pH POC ABG pCO2 POC ABG pO2 Sodium Potassium Chloride Carbon Dioxide BUN 28 H Creatinine 1.3 H Glucose 129 H POC Glucose 121 H Calcium Magnesium AST 120 H Total Creatine Kinase CK-MB (CK-2) Troponin T NT-Pro-B Natriuret Pep Total Protein 5.1 L Albumin 3.0 L HDL Cholesterol 01/18/19 01/18/19 01/18/19 04:21 04:36 05:43 WBC RBC Hgb Hct MCV RDW Plt Count Lymph % (Auto) [place] % (Auto) Lymph # Seg Neutrophils % Seg Neuts % (Manual) Lymphocytes % (Manual) Seg Neutrophils # Seg Neutrophils # Man Lymphocytes # (Manual) PT INR POC ABG pH 7.485 H POC ABG pCO2 31.0 L POC ABG pO2 126 H Sodium Potassium Chloride Carbon Dioxide BUN 28 H Creatinine 1.3 H Glucose 128 H POC Glucose 142 H Calcium Magnesium AST Total Creatine Kinase CK-MB (CK-2) Troponin T NT-Pro-B Natriuret Pep Total Protein Albumin HDL Cholesterol 01/18/19 01/18/19 01/18/19 12:04 18:16 20:47 WBC RBC Hgb Hct MCV RDW Plt Count Lymph % (Auto) [place] % (Auto) Lymph # Seg Neutrophils % Seg Neuts % (Manual) Lymphocytes % (Manual) Seg Neutrophils # Seg Neutrophils # Man Lymphocytes # (Manual) PT INR POC ABG pH 7.489 H POC ABG pCO2 32.8 L POC ABG pO2 Sodium Potassium Chloride Carbon Dioxide BUN Creatinine Glucose POC Glucose 113 H 119 H Calcium Magnesium AST Total Creatine Kinase CK-MB (CK-2) Troponin T NT-Pro-B Natriuret Pep Total Protein Albumin HDL Cholesterol 01/19/19 01/19/19 01/19/19 00:40 05:35 11:39 WBC RBC Hgb Hct MCV RDW Plt Count Lymph % (Auto) [place] % (Auto) Lymph # Seg Neutrophils % Seg Neuts % (Manual) Lymphocytes % (Manual) Seg Neutrophils # Seg Neutrophils # Man Lymphocytes # (Manual) PT INR POC ABG pH POC ABG pCO2 POC ABG pO2 Sodium Potassium Chloride Carbon Dioxide BUN Creatinine Glucose POC Glucose 137 H 157 H 155 H Calcium Magnesium AST Total Creatine Kinase CK-MB (CK-2) Troponin T NT-Pro-B Natriuret Pep Total Protein Albumin HDL Cholesterol 01/19/19 01/19/19 01/19/19 18:24 21:08 23:33 WBC RBC Hgb Hct MCV RDW Plt Count Lymph % (Auto) [place] % (Auto) Lymph # Seg Neutrophils % Seg Neuts % (Manual) Lymphocytes % (Manual) Seg Neutrophils # Seg Neutrophils # Man Lymphocytes # (Manual) PT INR POC ABG pH 7.508 H POC ABG pCO2 34.2 L POC ABG pO2 Sodium Potassium Chloride Carbon Dioxide BUN Creatinine Glucose POC Glucose 145 H 156 H Calcium Magnesium AST Total Creatine Kinase CK-MB (CK-2) Troponin T NT-Pro-B Natriuret Pep Total Protein Albumin HDL Cholesterol 01/20/19 01/20/19 01/20/19 05:12 11:42 17:36 WBC RBC Hgb Hct MCV RDW Plt Count Lymph % (Auto) [place] % (Auto) Lymph # Seg Neutrophils % Seg Neuts % (Manual) Lymphocytes % (Manual) Seg Neutrophils # Seg Neutrophils # Man Lymphocytes # (Manual) PT INR POC ABG pH POC ABG pCO2 POC ABG pO2 Sodium Potassium Chloride Carbon Dioxide BUN Creatinine Glucose POC Glucose 152 H 159 H 169 H Calcium Magnesium AST Total Creatine Kinase CK-MB (CK-2) Troponin T NT-Pro-B Natriuret Pep Total Protein Albumin HDL Cholesterol 01/20/19 01/21/19 01/21/19 23:29 05:30 05:34 WBC RBC Hgb Hct MCV RDW Plt Count Lymph % (Auto) [place] % (Auto) Lymph # Seg Neutrophils % Seg Neuts % (Manual) Lymphocytes % (Manual) Seg Neutrophils # Seg Neutrophils # Man Lymphocytes # (Manual) PT INR POC ABG pH 7.616 H POC ABG pCO2 POC ABG pO2 71 L Sodium Potassium Chloride Carbon Dioxide BUN Creatinine Glucose POC Glucose 139 H 138 H Calcium Magnesium AST Total Creatine Kinase CK-MB (CK-2) Troponin T NT-Pro-B Natriuret Pep Total Protein Albumin HDL Cholesterol 01/21/19 01/21/19 01/22/19 12:41 18:47 00:07 WBC RBC Hgb Hct MCV RDW Plt Count Lymph % (Auto) [place] % (Auto) Lymph # Seg Neutrophils % Seg Neuts % (Manual) Lymphocytes % (Manual) Seg Neutrophils # Seg Neutrophils # Man Lymphocytes # (Manual) PT INR POC ABG pH POC ABG pCO2 POC ABG pO2 Sodium Potassium Chloride Carbon Dioxide BUN Creatinine Glucose POC Glucose 154 H 174 H 163 H Calcium Magnesium AST Total Creatine Kinase CK-MB (CK-2) Troponin T NT-Pro-B Natriuret Pep Total Protein Albumin HDL Cholesterol 01/22/19 01/22/19 01/22/19 04:35 05:46 12:18 WBC RBC Hgb Hct MCV RDW Plt Count Lymph % (Auto) [place] % (Auto) Lymph # Seg Neutrophils % Seg Neuts % (Manual) Lymphocytes % (Manual) Seg Neutrophils # Seg Neutrophils # Man Lymphocytes # (Manual) PT INR POC ABG pH 7.522 H POC ABG pCO2 POC ABG pO2 Sodium Potassium Chloride Carbon Dioxide BUN Creatinine Glucose POC Glucose 159 H 137 H Calcium Magnesium AST Total Creatine Kinase CK-MB (CK-2) Troponin T NT-Pro-B Natriuret Pep Total Protein Albumin HDL Cholesterol 01/22/19 01/22/19 01/22/19 15:00 15:00 18:13 WBC RBC 2.92 L Hgb 8.4 L Hct 25.6 L MCV RDW Plt Count Lymph % (Auto) [place] % (Auto) Lymph # Seg Neutrophils % Seg Neuts % (Manual) Lymphocytes % (Manual) Seg Neutrophils # Seg Neutrophils # Man Lymphocytes # (Manual) PT INR POC ABG pH POC ABG pCO2 POC ABG pO2 Sodium Potassium Chloride 97.0 L Carbon Dioxide BUN 37 H Creatinine Glucose 162 H POC Glucose 159 H Calcium 8.2 L Magnesium AST Total Creatine Kinase CK-MB (CK-2) Troponin T NT-Pro-B Natriuret Pep Total Protein Albumin HDL Cholesterol 01/22/19 01/23/19 01/23/19 22:45 00:01 05:10 WBC RBC 2.92 L Hgb 8.5 L Hct 25.4 L MCV RDW Plt Count Lymph % (Auto) 6.3 L [place] % (Auto) Lymph # 0.6 L Seg Neutrophils % 86.3 H Seg Neuts % (Manual) Lymphocytes % (Manual) Seg Neutrophils # 8.9 H Seg Neutrophils # Man Lymphocytes # (Manual) PT INR POC ABG pH POC ABG pCO2 POC ABG pO2 Sodium Potassium Chloride Carbon Dioxide BUN Creatinine Glucose POC Glucose 178 H 155 H Calcium Magnesium AST Total Creatine Kinase CK-MB (CK-2) Troponin T NT-Pro-B Natriuret Pep Total Protein Albumin HDL Cholesterol 01/23/19 01/23/19 01/23/19 11:31 17:49 Unknown WBC RBC Hgb Hct MCV RDW Plt Count Lymph % (Auto) [place] % (Auto) Lymph # Seg Neutrophils % Seg Neuts % (Manual) Lymphocytes % (Manual) Seg Neutrophils # Seg Neutrophils # Man Lymphocytes # (Manual) PT INR POC ABG pH POC ABG pCO2 POC ABG pO2 Sodium Potassium Chloride 95.4 L Carbon Dioxide BUN 37 H Creatinine Glucose 144 H POC Glucose 161 H 142 H Calcium Magnesium AST 88 H Total Creatine Kinase CK-MB (CK-2) Troponin T NT-Pro-B Natriuret Pep Total Protein 6.0 L Albumin 2.9 L HDL Cholesterol 01/24/19 01/24/19 01/24/19 00:21 05:36 12:35 WBC RBC Hgb Hct MCV RDW Plt Count Lymph % (Auto) [place] % (Auto) Lymph # Seg Neutrophils % Seg Neuts % (Manual) Lymphocytes % (Manual) Seg Neutrophils # Seg Neutrophils # Man Lymphocytes # (Manual) PT INR POC ABG pH POC ABG pCO2 POC ABG pO2 Sodium Potassium Chloride Carbon Dioxide BUN Creatinine Glucose POC Glucose 163 H 147 H 263 H Calcium Magnesium AST Total Creatine Kinase CK-MB (CK-2) Troponin T NT-Pro-B Natriuret Pep Total Protein Albumin HDL Cholesterol 01/24/19 01/24/19 01/24/19 17:46 23:07 Unknown WBC RBC 2.90 L Hgb 8.3 L Hct 25.0 L MCV RDW Plt Count Lymph % (Auto) [place] % (Auto) Lymph # Seg Neutrophils % Seg Neuts % (Manual) Lymphocytes % (Manual) Seg Neutrophils # Seg Neutrophils # Man Lymphocytes # (Manual) PT INR POC ABG pH POC ABG pCO2 POC ABG pO2 Sodium Potassium Chloride Carbon Dioxide BUN Creatinine Glucose POC Glucose 161 H 167 H Calcium Magnesium AST Total Creatine Kinase CK-MB (CK-2) Troponin T NT-Pro-B Natriuret Pep Total Protein Albumin HDL Cholesterol 01/24/19 01/25/19 01/25/19 Unknown 05:15 05:15 WBC RBC 2.90 L Hgb 8.4 L Hct 25.2 L MCV RDW Plt Count Lymph % (Auto) [place] % (Auto) Lymph # Seg Neutrophils % Seg Neuts % (Manual) Lymphocytes % (Manual) Seg Neutrophils # Seg Neutrophils # Man Lymphocytes # (Manual) PT INR POC ABG pH POC ABG pCO2 POC ABG pO2 Sodium 134 L 135 L Potassium Chloride 94.4 L 94.0 L Carbon Dioxide BUN 35 H 35 H Creatinine Glucose 151 H 128 H POC Glucose Calcium Magnesium AST Total Creatine Kinase CK-MB (CK-2) Troponin T NT-Pro-B Natriuret Pep Total Protein Albumin HDL Cholesterol 01/25/19 01/25/19 01/25/19 05:15 05:35 11:09 WBC RBC Hgb Hct MCV RDW Plt Count Lymph % (Auto) [place] % (Auto) Lymph # Seg Neutrophils % Seg Neuts % (Manual) Lymphocytes % (Manual) Seg Neutrophils # Seg Neutrophils # Man Lymphocytes # (Manual) PT 18.8 H INR 1.47 H POC ABG pH POC ABG pCO2 POC ABG pO2 Sodium Potassium Chloride Carbon Dioxide BUN Creatinine Glucose POC Glucose 126 H 149 H Calcium Magnesium AST Total Creatine Kinase CK-MB (CK-2) Troponin T NT-Pro-B Natriuret Pep Total Protein Albumin HDL Cholesterol 01/25/19 01/25/19 01/26/19 17:24 23:41 00:09 WBC RBC Hgb Hct MCV RDW Plt Count Lymph % (Auto) [place] % (Auto) Lymph # Seg Neutrophils % Seg Neuts % (Manual) Lymphocytes % (Manual) Seg Neutrophils # Seg Neutrophils # Man Lymphocytes # (Manual) PT INR POC ABG pH POC ABG pCO2 POC ABG pO2 Sodium Potassium Chloride Carbon Dioxide BUN Creatinine Glucose POC Glucose 140 H 142 H 156 H Calcium Magnesium AST Total Creatine Kinase CK-MB (CK-2) Troponin T NT-Pro-B Natriuret Pep Total Protein Albumin HDL Cholesterol 01/26/19 01/26/19 01/26/19 05:05 06:35 06:35 WBC RBC 2.83 L Hgb 8.1 L Hct 24.4 L MCV RDW Plt Count Lymph % (Auto) [place] % (Auto) Lymph # Seg Neutrophils % Seg Neuts % (Manual) Lymphocytes % (Manual) Seg Neutrophils # Seg Neutrophils # Man Lymphocytes # (Manual) PT INR POC ABG pH POC ABG pCO2 POC ABG pO2 Sodium Potassium Chloride 96.9 L Carbon Dioxide BUN 29 H Creatinine Glucose 141 H POC Glucose 159 H Calcium 8.3 L Magnesium AST Total Creatine Kinase CK-MB (CK-2) Troponin T NT-Pro-B Natriuret Pep Total Protein Albumin HDL Cholesterol 01/26/19 01/26/19 01/27/19 13:16 19:10 00:08 WBC RBC Hgb Hct MCV RDW Plt Count Lymph % (Auto) [place] % (Auto) Lymph # Seg Neutrophils % Seg Neuts % (Manual) Lymphocytes % (Manual) Seg Neutrophils # Seg Neutrophils # Man Lymphocytes # (Manual) PT INR POC ABG pH POC ABG pCO2 POC ABG pO2 Sodium Potassium Chloride Carbon Dioxide BUN Creatinine Glucose POC Glucose 159 H 146 H 140 H Calcium Magnesium AST Total Creatine Kinase CK-MB (CK-2) Troponin T NT-Pro-B Natriuret Pep Total Protein Albumin HDL Cholesterol 01/27/19 01/27/19 01/27/19 03:30 03:30 06:23 WBC RBC 2.85 L Hgb 8.3 L Hct 24.8 L MCV RDW Plt Count Lymph % (Auto) [place] % (Auto) Lymph # Seg Neutrophils % Seg Neuts % (Manual) Lymphocytes % (Manual) Seg Neutrophils # Seg Neutrophils # Man Lymphocytes # (Manual) PT INR POC ABG pH POC ABG pCO2 POC ABG pO2 Sodium 136 L Potassium Chloride 97.1 L Carbon Dioxide BUN 26 H Creatinine Glucose 129 H POC Glucose 154 H Calcium Magnesium AST Total Creatine Kinase CK-MB (CK-2) Troponin T NT-Pro-B Natriuret Pep Total Protein Albumin HDL Cholesterol 01/27/19 01/27/19 01/27/19 12:47 17:43 23:31 WBC RBC Hgb Hct MCV RDW Plt Count Lymph % (Auto) [place] % (Auto) Lymph # Seg Neutrophils % Seg Neuts % (Manual) Lymphocytes % (Manual) Seg Neutrophils # Seg Neutrophils # Man Lymphocytes # (Manual) PT INR POC ABG pH POC ABG pCO2 POC ABG pO2 Sodium Potassium Chloride Carbon Dioxide BUN Creatinine Glucose POC Glucose 159 H 180 H 164 H Calcium Magnesium AST Total Creatine Kinase CK-MB (CK-2) Troponin T NT-Pro-B Natriuret Pep Total Protein Albumin HDL Cholesterol 01/28/19 01/28/19 01/28/19 04:35 12:01 12:01 WBC RBC 2.67 L Hgb 7.9 L Hct 22.9 L MCV RDW Plt Count Lymph % (Auto) [place] % (Auto) Lymph # Seg Neutrophils % Seg Neuts % (Manual) Lymphocytes % (Manual) Seg Neutrophils # Seg Neutrophils # Man Lymphocytes # (Manual) PT INR POC ABG pH POC ABG pCO2 POC ABG pO2 Sodium 136 L Potassium 3.5 L Chloride Carbon Dioxide BUN 18 H Creatinine Glucose 143 H POC Glucose 139 H Calcium 8.0 L Magnesium AST Total Creatine Kinase CK-MB (CK-2) Troponin T NT-Pro-B Natriuret Pep Total Protein Albumin HDL Cholesterol 01/28/19 01/28/19 01/28/19 12:04 16:59 17:11 WBC RBC Hgb Hct MCV RDW Plt Count Lymph % (Auto) [place] % (Auto) Lymph # Seg Neutrophils % Seg Neuts % (Manual) Lymphocytes % (Manual) Seg Neutrophils # Seg Neutrophils # Man Lymphocytes # (Manual) PT INR POC ABG pH 7.488 H POC ABG pCO2 34.1 L POC ABG pO2 Sodium Potassium Chloride Carbon Dioxide BUN Creatinine Glucose POC Glucose 143 H 163 H Calcium Magnesium AST Total Creatine Kinase CK-MB (CK-2) Troponin T NT-Pro-B Natriuret Pep Total Protein Albumin HDL Cholesterol 01/29/19 01/29/19 01/29/19 00:10 05:47 12:08 WBC RBC Hgb Hct MCV RDW Plt Count Lymph % (Auto) [place] % (Auto) Lymph # Seg Neutrophils % Seg Neuts % (Manual) Lymphocytes % (Manual) Seg Neutrophils # Seg Neutrophils # Man Lymphocytes # (Manual) PT INR POC ABG pH POC ABG pCO2 POC ABG pO2 Sodium Potassium Chloride Carbon Dioxide BUN Creatinine Glucose POC Glucose 171 H 187 H 137 H Calcium Magnesium AST Total Creatine Kinase CK-MB (CK-2) Troponin T NT-Pro-B Natriuret Pep Total Protein Albumin HDL Cholesterol 01/29/19 01/29/19 01/29/19 16:48 16:54 17:47 WBC RBC Hgb Hct MCV RDW Plt Count Lymph % (Auto) [place] % (Auto) Lymph # Seg Neutrophils % Seg Neuts % (Manual) Lymphocytes % (Manual) Seg Neutrophils # Seg Neutrophils # Man Lymphocytes # (Manual) PT INR POC ABG pH 7.486 H 7.512 H POC ABG pCO2 32.8 L 32.7 L POC ABG pO2 108 H Sodium Potassium Chloride Carbon Dioxide BUN Creatinine Glucose POC Glucose 156 H Calcium Magnesium AST Total Creatine Kinase CK-MB (CK-2) Troponin T NT-Pro-B Natriuret Pep Total Protein Albumin HDL Cholesterol 01/29/19 01/30/19 01/30/19 23:48 06:45 07:18 WBC RBC 2.94 L Hgb 8.6 L Hct 25.7 L MCV RDW Plt Count Lymph % (Auto) [place] % (Auto) Lymph # Seg Neutrophils % Seg Neuts % (Manual) Lymphocytes % (Manual) Seg Neutrophils # Seg Neutrophils # Man Lymphocytes # (Manual) PT INR POC ABG pH POC ABG pCO2 POC ABG pO2 Sodium 135 L Potassium Chloride Carbon Dioxide BUN Creatinine Glucose 141 H POC Glucose 185 H Calcium 8.3 L Magnesium AST Total Creatine Kinase CK-MB (CK-2) Troponin T NT-Pro-B Natriuret Pep Total Protein Albumin HDL Cholesterol 01/30/19 01/30/19 01/30/19 11:17 16:47 18:16 WBC RBC Hgb Hct MCV RDW Plt Count Lymph % (Auto) [place] % (Auto) Lymph # Seg Neutrophils % Seg Neuts % (Manual) Lymphocytes % (Manual) Seg Neutrophils # Seg Neutrophils # Man Lymphocytes # (Manual) PT INR POC ABG pH 7.508 H POC ABG pCO2 31.5 L POC ABG pO2 135 H Sodium Potassium Chloride Carbon Dioxide BUN Creatinine Glucose POC Glucose 170 H 108 H Calcium Magnesium AST Total Creatine Kinase CK-MB (CK-2) Troponin T NT-Pro-B Natriuret Pep Total Protein Albumin HDL Cholesterol 01/30/19 01/31/19 01/31/19 23:38 05:45 12:04 WBC RBC Hgb Hct MCV RDW Plt Count Lymph % (Auto) [place] % (Auto) Lymph # Seg Neutrophils % Seg Neuts % (Manual) Lymphocytes % (Manual) Seg Neutrophils # Seg Neutrophils # Man Lymphocytes # (Manual) PT INR POC ABG pH POC ABG pCO2 POC ABG pO2 Sodium Potassium Chloride Carbon Dioxide BUN Creatinine Glucose POC Glucose 146 H 121 H 152 H Calcium Magnesium AST Total Creatine Kinase CK-MB (CK-2) Troponin T NT-Pro-B Natriuret Pep Total Protein Albumin HDL Cholesterol 01/31/19 01/31/19 02/01/19 17:44 23:58 05:46 WBC RBC Hgb Hct MCV RDW Plt Count Lymph % (Auto) [place] % (Auto) Lymph # Seg Neutrophils % Seg Neuts % (Manual) Lymphocytes % (Manual) Seg Neutrophils # Seg Neutrophils # Man Lymphocytes # (Manual) PT INR POC ABG pH POC ABG pCO2 POC ABG pO2 Sodium Potassium Chloride Carbon Dioxide BUN Creatinine Glucose POC Glucose 153 H 183 H 116 H Calcium Magnesium AST Total Creatine Kinase CK-MB (CK-2) Troponin T NT-Pro-B Natriuret Pep Total Protein Albumin HDL Cholesterol 02/01/19 02/01/19 02/01/19 11:10 12:18 17:48 WBC RBC Hgb Hct MCV RDW Plt Count Lymph % (Auto) [place] % (Auto) Lymph # Seg Neutrophils % Seg Neuts % (Manual) Lymphocytes % (Manual) Seg Neutrophils # Seg Neutrophils # Man Lymphocytes # (Manual) PT INR POC ABG pH POC ABG pCO2 POC ABG pO2 Sodium 133 L Potassium 3.3 L Chloride 96.1 L Carbon Dioxide BUN Creatinine Glucose 145 H POC Glucose 175 H 129 H Calcium 8.3 L Magnesium AST Total Creatine Kinase CK-MB (CK-2) Troponin T NT-Pro-B Natriuret Pep Total Protein Albumin HDL Cholesterol 02/01/19 02/02/19 02/02/19 23:13 05:16 06:00 WBC RBC Hgb Hct MCV RDW Plt Count Lymph % (Auto) [place] % (Auto) Lymph # Seg Neutrophils % Seg Neuts % (Manual) Lymphocytes % (Manual) Seg Neutrophils # Seg Neutrophils # Man Lymphocytes # (Manual) PT INR POC ABG pH POC ABG pCO2 POC ABG pO2 Sodium 135 L Potassium Chloride Carbon Dioxide BUN 18 H Creatinine Glucose 121 H POC Glucose 143 H 140 H Calcium 8.3 L Magnesium 1.60 L AST Total Creatine Kinase CK-MB (CK-2) Troponin T NT-Pro-B Natriuret Pep Total Protein Albumin HDL Cholesterol 02/02/19 02/02/19 02/02/19 12:06 18:23 23:45 WBC RBC Hgb Hct MCV RDW Plt Count Lymph % (Auto) [place] % (Auto) Lymph # Seg Neutrophils % Seg Neuts % (Manual) Lymphocytes % (Manual) Seg Neutrophils # Seg Neutrophils # Man Lymphocytes # (Manual) PT INR POC ABG pH POC ABG pCO2 POC ABG pO2 Sodium Potassium Chloride Carbon Dioxide BUN Creatinine Glucose POC Glucose 156 H 159 H 139 H Calcium Magnesium AST Total Creatine Kinase CK-MB (CK-2) Troponin T NT-Pro-B Natriuret Pep Total Protein Albumin HDL Cholesterol 02/03/19 02/03/19 02/03/19 05:19 12:02 17:24 WBC RBC Hgb Hct MCV RDW Plt Count Lymph % (Auto) [place] % (Auto) Lymph # Seg Neutrophils % Seg Neuts % (Manual) Lymphocytes % (Manual) Seg Neutrophils # Seg Neutrophils # Man Lymphocytes # (Manual) PT INR POC ABG pH POC ABG pCO2 POC ABG pO2 Sodium Potassium Chloride Carbon Dioxide BUN Creatinine Glucose POC Glucose 147 H 163 H 144 H Calcium Magnesium AST Total Creatine Kinase CK-MB (CK-2) Troponin T NT-Pro-B Natriuret Pep Total Protein Albumin HDL Cholesterol 02/03/19 02/04/19 02/04/19 23:43 05:30 11:14 WBC RBC 3.00 L Hgb 8.7 L Hct 25.9 L MCV RDW Plt Count Lymph % (Auto) 11.5 L [place] % (Auto) 7.5 H Lymph # 0.8 L Seg Neutrophils % 79.6 H Seg Neuts % (Manual) Lymphocytes % (Manual) Seg Neutrophils # Seg Neutrophils # Man Lymphocytes # (Manual) PT INR POC ABG pH POC ABG pCO2 POC ABG pO2 Sodium Potassium Chloride Carbon Dioxide BUN Creatinine Glucose POC Glucose 131 H 145 H Calcium Magnesium AST Total Creatine Kinase CK-MB (CK-2) Troponin T NT-Pro-B Natriuret Pep Total Protein Albumin HDL Cholesterol 02/04/19 02/04/19 02/04/19 11:14 12:09 17:37 WBC RBC Hgb Hct MCV RDW Plt Count Lymph % (Auto) [place] % (Auto) Lymph # Seg Neutrophils % Seg Neuts % (Manual) Lymphocytes % (Manual) Seg Neutrophils # Seg Neutrophils # Man Lymphocytes # (Manual) PT INR POC ABG pH POC ABG pCO2 POC ABG pO2 Sodium Potassium Chloride 96.5 L Carbon Dioxide BUN 30 H Creatinine Glucose 142 H POC Glucose 149 H 170 H Calcium Magnesium AST Total Creatine Kinase CK-MB (CK-2) Troponin T NT-Pro-B Natriuret Pep Total Protein Albumin HDL Cholesterol 02/04/19 02/05/19 02/05/19 23:33 04:27 04:27 WBC RBC 3.61 L Hgb Hct MCV RDW Plt Count Lymph % (Auto) 12.3 L [place] % (Auto) Lymph # 0.9 L Seg Neutrophils % 79.1 H Seg Neuts % (Manual) Lymphocytes % (Manual) Seg Neutrophils # Seg Neutrophils # Man Lymphocytes # (Manual) PT INR POC ABG pH POC ABG pCO2 POC ABG pO2 Sodium Potassium Chloride 96.0 L Carbon Dioxide BUN 26 H Creatinine Glucose 118 H POC Glucose 182 H Calcium Magnesium AST Total Creatine Kinase CK-MB (CK-2) Troponin T NT-Pro-B Natriuret Pep Total Protein Albumin HDL Cholesterol 02/05/19 02/05/19 05:51 12:37 WBC RBC Hgb Hct MCV RDW Plt Count Lymph % (Auto) [place] % (Auto) Lymph # Seg Neutrophils % Seg Neuts % (Manual) Lymphocytes % (Manual) Seg Neutrophils # Seg Neutrophils # Man Lymphocytes # (Manual) PT INR POC ABG pH POC ABG pCO2 POC ABG pO2 Sodium Potassium Chloride Carbon Dioxide BUN Creatinine Glucose POC Glucose 162 H 147 H Calcium Magnesium AST Total Creatine Kinase CK-MB (CK-2) Troponin T NT-Pro-B Natriuret Pep Total Protein Albumin HDL Cholesterol
--- NOTE | 2019-02-05 16:16 | Progress Note ---
Assessment and Plan Patient resting on T Tube. FiO2 28%. O2 saturation 95%. Patient not responding to verbal stimuli. No acute respiratory distress. Patient has a heavy history of smoking. 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 No known allergies. Talked to the granddaughter and explained the patient's respiratory status - Patient Problems (1) COPD (chronic obstructive pulmonary disease) with emphysema Current Visit: Yes Status: Acute Plan to address problem: 1. s/p tracheostomy on T tube FiO2 28% 2. Albuterol and atrovent aerosol treatment q6 hrs 3. Respiratory suctioning 4. Continue Lovenox 5. Patient is on Reglan (2) Acute respiratory failure with hypoxia Current Visit: Yes Status: Acute Plan to address problem: 1. s/p tracheostomy on T tube FiO2 28% 2. Albuterol and atrovent aerosol treatment q6 hrs 3. Respiratory suctioning 4. Continue Lovenox 5. Patient is on Reglan (3) Status post tracheostomy Current Visit: Yes Status: Acute Plan to address problem: Continue trach care. (4) Pulmonary infiltrates on CXR Current Visit: Yes Status: Acute Plan to address problem: Patient afebrile. No leukocytosis. Recommend respiratory suctioning. Continue aerosolized bronchodilators. If patient becomes febrile or develops leukocytosis recommend IV antibiotics. (5) CHF (congestive heart failure) Current Visit: Yes Status: Acute Plan to address problem: Management per cardiology. (6) Altered mental status Current Visit: Yes Status: Acute Plan to address problem: Management as per primary care. (7) CAD S/P percutaneous coronary angioplasty Current Visit: Yes Status: Chronic Plan to address problem: Managment per cardiology. (8) CKD (chronic kidney disease) Current Visit: Yes Status: Chronic Plan to address problem: Management per nephrology. Subjective Date of service: 02/05/19 Principal diagnosis: OOH cardiac arrest; Acute hypoxemic-hypercapnic Resp f ailure; PNA Interval history: Patient resting on T Tube. FiO2 28%. O2 saturation 95%. Patient not responding to verbal stimuli. No acute respiratory distress. Patient has a heavy history of smoking. 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 No known allergies. Talked to the granddaughter and explained the patient's respiratory status. Objective Vital Signs - 12hr 02/05/19 02/05/19 02/05/19 04:28 08:00 08:45 Temperature 97.5 F L 97.6 F Pulse Rate 82 Pulse Rate [ Anterior Bilateral Throughout] Respiratory 18 18 Rate Respiratory Rate [Anterior Bilateral Throughout] Blood Pressure 116/65 115/66 O2 Sat by Pulse 100 100 Oximetry 02/05/19 02/05/19 02/05/19 09:41 09:51 13:36 Temperature Pulse Rate Pulse Rate [ 85 80 79 Anterior Bilateral Throughout] Respiratory Rate Respiratory 20 20 20 Rate [Anterior Bilateral Throughout] Blood Pressure O2 Sat by Pulse 95 Oximetry Constitutional: no acute distress, asleep, other (elderly, atraumatic, normocephalic, chronically looking female) Eyes: non-icteric ENT: oropharynx moist, other (s/p tracheostomy) Neck: supple, no lymphadenopathy, no JVD Effort: normal Ascultation: Bilateral: diminished breath sounds, rales (bases), rhonchi (scant), other (coarse breath sound bilaterally upper lobes anteriorly) Percussion: Bilateral: not dull Cardiovascular: regular rate and rhythm, other (tacycardia, S1,S2, no murmurs, gallops or rubs) Gastrointestinal: normoactive bowel sounds, soft, non-tender, non-distended Integumentary: normal Extremities: no cyanosis, no edema, pulses normal, no ischemia or petechiae Neurologic: unable to assess Psychiatric: other (unable to assess secondary to mental status) CBC and BMP: 02/05/19 04:27 02/05/19 04:27 ABG, PT/INR, D-dimer: ABG POC ABG pH 7.508 (7.35-7.45) H 01/30/19 16:47 POC ABG pCO2 31.5 (35-45) L 01/30/19 16:47 POC ABG pO2 135 (80-105) H 01/30/19 16:47 POC ABG HCO3 25.0 (22-26 mml/L) 01/30/19 16:47 POC ABG Total CO2 26 (23-27mmol/L) 01/30/19 16:47 POC ABG O2 Sat 99 01/30/19 16:47 PT/INR, D-dimer PT 18.8 Sec. (12.2-14.9) H 01/25/19 05:15 INR 1.47 (0.87-1.13) H 01/25/19 05:15 Abnormal lab findings: Abnormal Labs 01/15/19 01/15/19 01/15/19 07:50 07:50 07:50 WBC RBC Hgb Hct MCV 99 H RDW 16.7 H Plt Count 122 L Lymph % (Auto) [place] % (Auto) Lymph # Seg Neutrophils % Seg Neuts % (Manual) Lymphocytes % (Manual) Seg Neutrophils # Seg Neutrophils # Man Lymphocytes # (Manual) PT 19.7 H INR 1.56 H POC ABG pH POC ABG pCO2 POC ABG pO2 Sodium Potassium Chloride Carbon Dioxide 11 L BUN Creatinine 1.4 H Glucose 268 H POC Glucose Calcium Magnesium AST 57 H Total Creatine Kinase CK-MB (CK-2) Troponin T NT-Pro-B Natriuret Pep 5346 H Total Protein Albumin 3.6 L HDL Cholesterol 01/15/19 01/15/19 01/15/19 09:56 11:53 17:52 WBC RBC Hgb Hct MCV RDW Plt Count Lymph % (Auto) [place] % (Auto) Lymph # Seg Neutrophils % Seg Neuts % (Manual) Lymphocytes % (Manual) Seg Neutrophils # Seg Neutrophils # Man Lymphocytes # (Manual) PT INR POC ABG pH 7.186 L POC ABG pCO2 46.4 H POC ABG pO2 Sodium Potassium Chloride Carbon Dioxide BUN Creatinine Glucose POC Glucose Calcium Magnesium AST Total Creatine Kinase 683 H 1430 H CK-MB (CK-2) 9.5 H 13.5 H Troponin T 0.036 H D NT-Pro-B Natriuret Pep Total Protein Albumin HDL Cholesterol 65 H 01/15/19 01/15/19 01/16/19 18:31 21:46 02:14 WBC RBC Hgb Hct MCV RDW Plt Count Lymph % (Auto) [place] % (Auto) Lymph # Seg Neutrophils % Seg Neuts % (Manual) Lymphocytes % (Manual) Seg Neutrophils # Seg Neutrophils # Man Lymphocytes # (Manual) PT INR POC ABG pH POC ABG pCO2 31.8 L POC ABG pO2 167 H Sodium Potassium Chloride Carbon Dioxide BUN Creatinine Glucose POC Glucose 134 H 136 H Calcium Magnesium AST Total Creatine Kinase CK-MB (CK-2) Troponin T NT-Pro-B Natriuret Pep Total Protein Albumin HDL Cholesterol 01/16/19 01/16/19 01/16/19 04:16 04:16 05:05 WBC 11.4 H RBC Hgb Hct MCV RDW Plt Count 105 L Lymph % (Auto) [place] % (Auto) Lymph # Seg Neutrophils % Seg Neuts % (Manual) 74.0 H Lymphocytes % (Manual) 2.0 L Seg Neutrophils # Seg Neutrophils # Man 8.4 H Lymphocytes # (Manual) 0.2 L PT INR POC ABG pH 7.458 H POC ABG pCO2 31.4 L POC ABG pO2 135 H Sodium Potassium 3.3 L Chloride Carbon Dioxide 21 L D BUN 24 H Creatinine 1.5 H Glucose 141 H POC Glucose Calcium 8.1 L Magnesium AST 71 H Total Creatine Kinase CK-MB (CK-2) Troponin T NT-Pro-B Natriuret Pep Total Protein 6.2 L Albumin 3.5 L HDL Cholesterol 01/16/19 01/16/19 01/16/19 05:24 13:42 21:08 WBC RBC Hgb Hct MCV RDW Plt Count Lymph % (Auto) [place] % (Auto) Lymph # Seg Neutrophils % Seg Neuts % (Manual) Lymphocytes % (Manual) Seg Neutrophils # Seg Neutrophils # Man Lymphocytes # (Manual) PT INR POC ABG pH POC ABG pCO2 POC ABG pO2 Sodium Potassium Chloride Carbon Dioxide BUN Creatinine Glucose POC Glucose 137 H 129 H 122 H Calcium Magnesium AST Total Creatine Kinase CK-MB (CK-2) Troponin T NT-Pro-B Natriuret Pep Total Protein Albumin HDL Cholesterol 01/17/19 01/17/19 01/17/19 02:18 04:23 05:13 WBC RBC Hgb Hct MCV RDW Plt Count Lymph % (Auto) [place] % (Auto) Lymph # Seg Neutrophils % Seg Neuts % (Manual) Lymphocytes % (Manual) Seg Neutrophils # Seg Neutrophils # Man Lymphocytes # (Manual) PT INR POC ABG pH 7.479 H POC ABG pCO2 30.0 L POC ABG pO2 141 H Sodium Potassium Chloride Carbon Dioxide BUN Creatinine Glucose POC Glucose 139 H 128 H Calcium Magnesium AST Total Creatine Kinase CK-MB (CK-2) Troponin T NT-Pro-B Natriuret Pep Total Protein Albumin HDL Cholesterol 01/17/19 01/17/19 01/17/19 10:22 15:59 18:45 WBC RBC Hgb Hct MCV RDW Plt Count Lymph % (Auto) [place] % (Auto) Lymph # Seg Neutrophils % Seg Neuts % (Manual) Lymphocytes % (Manual) Seg Neutrophils # Seg Neutrophils # Man Lymphocytes # (Manual) PT INR POC ABG pH POC ABG pCO2 POC ABG pO2 Sodium Potassium Chloride Carbon Dioxide BUN Creatinine Glucose POC Glucose 133 H 121 H 106 H Calcium Magnesium AST Total Creatine Kinase CK-MB (CK-2) Troponin T NT-Pro-B Natriuret Pep Total Protein Albumin HDL Cholesterol 01/17/19 01/18/19 01/18/19 23:35 04:21 04:21 WBC RBC 3.27 L Hgb 9.6 L Hct 29.9 L MCV RDW Plt Count 79 L Lymph % (Auto) 6.0 L [place] % (Auto) Lymph # 0.5 L Seg Neutrophils % 89.2 H Seg Neuts % (Manual) Lymphocytes % (Manual) Seg Neutrophils # 8.1 H Seg Neutrophils # Man Lymphocytes # (Manual) PT INR POC ABG pH POC ABG pCO2 POC ABG pO2 Sodium Potassium Chloride Carbon Dioxide BUN 28 H Creatinine 1.3 H Glucose 129 H POC Glucose 121 H Calcium Magnesium AST 120 H Total Creatine Kinase CK-MB (CK-2) Troponin T NT-Pro-B Natriuret Pep Total Protein 5.1 L Albumin 3.0 L HDL Cholesterol 01/18/19 01/18/19 01/18/19 04:21 04:36 05:43 WBC RBC Hgb Hct MCV RDW Plt Count Lymph % (Auto) [place] % (Auto) Lymph # Seg Neutrophils % Seg Neuts % (Manual) Lymphocytes % (Manual) Seg Neutrophils # Seg Neutrophils # Man Lymphocytes # (Manual) PT INR POC ABG pH 7.485 H POC ABG pCO2 31.0 L POC ABG pO2 126 H Sodium Potassium Chloride Carbon Dioxide BUN 28 H Creatinine 1.3 H Glucose 128 H POC Glucose 142 H Calcium Magnesium AST Total Creatine Kinase CK-MB (CK-2) Troponin T NT-Pro-B Natriuret Pep Total Protein Albumin HDL Cholesterol 01/18/19 01/18/19 01/18/19 12:04 18:16 20:47 WBC RBC Hgb Hct MCV RDW Plt Count Lymph % (Auto) [place] % (Auto) Lymph # Seg Neutrophils % Seg Neuts % (Manual) Lymphocytes % (Manual) Seg Neutrophils # Seg Neutrophils # Man Lymphocytes # (Manual) PT INR POC ABG pH 7.489 H POC ABG pCO2 32.8 L POC ABG pO2 Sodium Potassium Chloride Carbon Dioxide BUN Creatinine Glucose POC Glucose 113 H 119 H Calcium Magnesium AST Total Creatine Kinase CK-MB (CK-2) Troponin T NT-Pro-B Natriuret Pep Total Protein Albumin HDL Cholesterol 01/19/19 01/19/19 01/19/19 00:40 05:35 11:39 WBC RBC Hgb Hct MCV RDW Plt Count Lymph % (Auto) [place] % (Auto) Lymph # Seg Neutrophils % Seg Neuts % (Manual) Lymphocytes % (Manual) Seg Neutrophils # Seg Neutrophils # Man Lymphocytes # (Manual) PT INR POC ABG pH POC ABG pCO2 POC ABG pO2 Sodium Potassium Chloride Carbon Dioxide BUN Creatinine Glucose POC Glucose 137 H 157 H 155 H Calcium Magnesium AST Total Creatine Kinase CK-MB (CK-2) Troponin T NT-Pro-B Natriuret Pep Total Protein Albumin HDL Cholesterol 01/19/19 01/19/19 01/19/19 18:24 21:08 23:33 WBC RBC Hgb Hct MCV RDW Plt Count Lymph % (Auto) [place] % (Auto) Lymph # Seg Neutrophils % Seg Neuts % (Manual) Lymphocytes % (Manual) Seg Neutrophils # Seg Neutrophils # Man Lymphocytes # (Manual) PT INR POC ABG pH 7.508 H POC ABG pCO2 34.2 L POC ABG pO2 Sodium Potassium Chloride Carbon Dioxide BUN Creatinine Glucose POC Glucose 145 H 156 H Calcium Magnesium AST Total Creatine Kinase CK-MB (CK-2) Troponin T NT-Pro-B Natriuret Pep Total Protein Albumin HDL Cholesterol 01/20/19 01/20/19 01/20/19 05:12 11:42 17:36 WBC RBC Hgb Hct MCV RDW Plt Count Lymph % (Auto) [place] % (Auto) Lymph # Seg Neutrophils % Seg Neuts % (Manual) Lymphocytes % (Manual) Seg Neutrophils # Seg Neutrophils # Man Lymphocytes # (Manual) PT INR POC ABG pH POC ABG pCO2 POC ABG pO2 Sodium Potassium Chloride Carbon Dioxide BUN Creatinine Glucose POC Glucose 152 H 159 H 169 H Calcium Magnesium AST Total Creatine Kinase CK-MB (CK-2) Troponin T NT-Pro-B Natriuret Pep Total Protein Albumin HDL Cholesterol 01/20/19 01/21/19 01/21/19 23:29 05:30 05:34 WBC RBC Hgb Hct MCV RDW Plt Count Lymph % (Auto) [place] % (Auto) Lymph # Seg Neutrophils % Seg Neuts % (Manual) Lymphocytes % (Manual) Seg Neutrophils # Seg Neutrophils # Man Lymphocytes # (Manual) PT INR POC ABG pH 7.616 H POC ABG pCO2 POC ABG pO2 71 L Sodium Potassium Chloride Carbon Dioxide BUN Creatinine Glucose POC Glucose 139 H 138 H Calcium Magnesium AST Total Creatine Kinase CK-MB (CK-2) Troponin T NT-Pro-B Natriuret Pep Total Protein Albumin HDL Cholesterol 01/21/19 01/21/19 01/22/19 12:41 18:47 00:07 WBC RBC Hgb Hct MCV RDW Plt Count Lymph % (Auto) [place] % (Auto) Lymph # Seg Neutrophils % Seg Neuts % (Manual) Lymphocytes % (Manual) Seg Neutrophils # Seg Neutrophils # Man Lymphocytes # (Manual) PT INR POC ABG pH POC ABG pCO2 POC ABG pO2 Sodium Potassium Chloride Carbon Dioxide BUN Creatinine Glucose POC Glucose 154 H 174 H 163 H Calcium Magnesium AST Total Creatine Kinase CK-MB (CK-2) Troponin T NT-Pro-B Natriuret Pep Total Protein Albumin HDL Cholesterol 01/22/19 01/22/19 01/22/19 04:35 05:46 12:18 WBC RBC Hgb Hct MCV RDW Plt Count Lymph % (Auto) [place] % (Auto) Lymph # Seg Neutrophils % Seg Neuts % (Manual) Lymphocytes % (Manual) Seg Neutrophils # Seg Neutrophils # Man Lymphocytes # (Manual) PT INR POC ABG pH 7.522 H POC ABG pCO2 POC ABG pO2 Sodium Potassium Chloride Carbon Dioxide BUN Creatinine Glucose POC Glucose 159 H 137 H Calcium Magnesium AST Total Creatine Kinase CK-MB (CK-2) Troponin T NT-Pro-B Natriuret Pep Total Protein Albumin HDL Cholesterol 01/22/19 01/22/19 01/22/19 15:00 15:00 18:13 WBC RBC 2.92 L Hgb 8.4 L Hct 25.6 L MCV RDW Plt Count Lymph % (Auto) [place] % (Auto) Lymph # Seg Neutrophils % Seg Neuts % (Manual) Lymphocytes % (Manual) Seg Neutrophils # Seg Neutrophils # Man Lymphocytes # (Manual) PT INR POC ABG pH POC ABG pCO2 POC ABG pO2 Sodium Potassium Chloride 97.0 L Carbon Dioxide BUN 37 H Creatinine Glucose 162 H POC Glucose 159 H Calcium 8.2 L Magnesium AST Total Creatine Kinase CK-MB (CK-2) Troponin T NT-Pro-B Natriuret Pep Total Protein Albumin HDL Cholesterol 01/22/19 01/23/19 01/23/19 22:45 00:01 05:10 WBC RBC 2.92 L Hgb 8.5 L Hct 25.4 L MCV RDW Plt Count Lymph % (Auto) 6.3 L [place] % (Auto) Lymph # 0.6 L Seg Neutrophils % 86.3 H Seg Neuts % (Manual) Lymphocytes % (Manual) Seg Neutrophils # 8.9 H Seg Neutrophils # Man Lymphocytes # (Manual) PT INR POC ABG pH POC ABG pCO2 POC ABG pO2 Sodium Potassium Chloride Carbon Dioxide BUN Creatinine Glucose POC Glucose 178 H 155 H Calcium Magnesium AST Total Creatine Kinase CK-MB (CK-2) Troponin T NT-Pro-B Natriuret Pep Total Protein Albumin HDL Cholesterol 01/23/19 01/23/19 01/23/19 11:31 17:49 Unknown WBC RBC Hgb Hct MCV RDW Plt Count Lymph % (Auto) [place] % (Auto) Lymph # Seg Neutrophils % Seg Neuts % (Manual) Lymphocytes % (Manual) Seg Neutrophils # Seg Neutrophils # Man Lymphocytes # (Manual) PT INR POC ABG pH POC ABG pCO2 POC ABG pO2 Sodium Potassium Chloride 95.4 L Carbon Dioxide BUN 37 H Creatinine Glucose 144 H POC Glucose 161 H 142 H Calcium Magnesium AST 88 H Total Creatine Kinase CK-MB (CK-2) Troponin T NT-Pro-B Natriuret Pep Total Protein 6.0 L Albumin 2.9 L HDL Cholesterol 01/24/19 01/24/19 01/24/19 00:21 05:36 12:35 WBC RBC Hgb Hct MCV RDW Plt Count Lymph % (Auto) [place] % (Auto) Lymph # Seg Neutrophils % Seg Neuts % (Manual) Lymphocytes % (Manual) Seg Neutrophils # Seg Neutrophils # Man Lymphocytes # (Manual) PT INR POC ABG pH POC ABG pCO2 POC ABG pO2 Sodium Potassium Chloride Carbon Dioxide BUN Creatinine Glucose POC Glucose 163 H 147 H 263 H Calcium Magnesium AST Total Creatine Kinase CK-MB (CK-2) Troponin T NT-Pro-B Natriuret Pep Total Protein Albumin HDL Cholesterol 01/24/19 01/24/19 01/24/19 17:46 23:07 Unknown WBC RBC 2.90 L Hgb 8.3 L Hct 25.0 L MCV RDW Plt Count Lymph % (Auto) [place] % (Auto) Lymph # Seg Neutrophils % Seg Neuts % (Manual) Lymphocytes % (Manual) Seg Neutrophils # Seg Neutrophils # Man Lymphocytes # (Manual) PT INR POC ABG pH POC ABG pCO2 POC ABG pO2 Sodium Potassium Chloride Carbon Dioxide BUN Creatinine Glucose POC Glucose 161 H 167 H Calcium Magnesium AST Total Creatine Kinase CK-MB (CK-2) Troponin T NT-Pro-B Natriuret Pep Total Protein Albumin HDL Cholesterol 01/24/19 01/25/19 01/25/19 Unknown 05:15 05:15 WBC RBC 2.90 L Hgb 8.4 L Hct 25.2 L MCV RDW Plt Count Lymph % (Auto) [place] % (Auto) Lymph # Seg Neutrophils % Seg Neuts % (Manual) Lymphocytes % (Manual) Seg Neutrophils # Seg Neutrophils # Man Lymphocytes # (Manual) PT INR POC ABG pH POC ABG pCO2 POC ABG pO2 Sodium 134 L 135 L Potassium Chloride 94.4 L 94.0 L Carbon Dioxide BUN 35 H 35 H Creatinine Glucose 151 H 128 H POC Glucose Calcium Magnesium AST Total Creatine Kinase CK-MB (CK-2) Troponin T NT-Pro-B Natriuret Pep Total Protein Albumin HDL Cholesterol 01/25/19 01/25/19 01/25/19 05:15 05:35 11:09 WBC RBC Hgb Hct MCV RDW Plt Count Lymph % (Auto) [place] % (Auto) Lymph # Seg Neutrophils % Seg Neuts % (Manual) Lymphocytes % (Manual) Seg Neutrophils # Seg Neutrophils # Man Lymphocytes # (Manual) PT 18.8 H INR 1.47 H POC ABG pH POC ABG pCO2 POC ABG pO2 Sodium Potassium Chloride Carbon Dioxide BUN Creatinine Glucose POC Glucose 126 H 149 H Calcium Magnesium AST Total Creatine Kinase CK-MB (CK-2) Troponin T NT-Pro-B Natriuret Pep Total Protein Albumin HDL Cholesterol 01/25/19 01/25/19 01/26/19 17:24 23:41 00:09 WBC RBC Hgb Hct MCV RDW Plt Count Lymph % (Auto) [place] % (Auto) Lymph # Seg Neutrophils % Seg Neuts % (Manual) Lymphocytes % (Manual) Seg Neutrophils # Seg Neutrophils # Man Lymphocytes # (Manual) PT INR POC ABG pH POC ABG pCO2 POC ABG pO2 Sodium Potassium Chloride Carbon Dioxide BUN Creatinine Glucose POC Glucose 140 H 142 H 156 H Calcium Magnesium AST Total Creatine Kinase CK-MB (CK-2) Troponin T NT-Pro-B Natriuret Pep Total Protein Albumin HDL Cholesterol 01/26/19 01/26/19 01/26/19 05:05 06:35 06:35 WBC RBC 2.83 L Hgb 8.1 L Hct 24.4 L MCV RDW Plt Count Lymph % (Auto) [place] % (Auto) Lymph # Seg Neutrophils % Seg Neuts % (Manual) Lymphocytes % (Manual) Seg Neutrophils # Seg Neutrophils # Man Lymphocytes # (Manual) PT INR POC ABG pH POC ABG pCO2 POC ABG pO2 Sodium Potassium Chloride 96.9 L Carbon Dioxide BUN 29 H Creatinine Glucose 141 H POC Glucose 159 H Calcium 8.3 L Magnesium AST Total Creatine Kinase CK-MB (CK-2) Troponin T NT-Pro-B Natriuret Pep Total Protein Albumin HDL Cholesterol 01/26/19 01/26/19 01/27/19 13:16 19:10 00:08 WBC RBC Hgb Hct MCV RDW Plt Count Lymph % (Auto) [place] % (Auto) Lymph # Seg Neutrophils % Seg Neuts % (Manual) Lymphocytes % (Manual) Seg Neutrophils # Seg Neutrophils # Man Lymphocytes # (Manual) PT INR POC ABG pH POC ABG pCO2 POC ABG pO2 Sodium Potassium Chloride Carbon Dioxide BUN Creatinine Glucose POC Glucose 159 H 146 H 140 H Calcium Magnesium AST Total Creatine Kinase CK-MB (CK-2) Troponin T NT-Pro-B Natriuret Pep Total Protein Albumin HDL Cholesterol 01/27/19 01/27/19 01/27/19 03:30 03:30 06:23 WBC RBC 2.85 L Hgb 8.3 L Hct 24.8 L MCV RDW Plt Count Lymph % (Auto) [place] % (Auto) Lymph # Seg Neutrophils % Seg Neuts % (Manual) Lymphocytes % (Manual) Seg Neutrophils # Seg Neutrophils # Man Lymphocytes # (Manual) PT INR POC ABG pH POC ABG pCO2 POC ABG pO2 Sodium 136 L Potassium Chloride 97.1 L Carbon Dioxide BUN 26 H Creatinine Glucose 129 H POC Glucose 154 H Calcium Magnesium AST Total Creatine Kinase CK-MB (CK-2) Troponin T NT-Pro-B Natriuret Pep Total Protein Albumin HDL Cholesterol 01/27/19 01/27/19 01/27/19 12:47 17:43 23:31 WBC RBC Hgb Hct MCV RDW Plt Count Lymph % (Auto) [place] % (Auto) Lymph # Seg Neutrophils % Seg Neuts % (Manual) Lymphocytes % (Manual) Seg Neutrophils # Seg Neutrophils # Man Lymphocytes # (Manual) PT INR POC ABG pH POC ABG pCO2 POC ABG pO2 Sodium Potassium Chloride Carbon Dioxide BUN Creatinine Glucose POC Glucose 159 H 180 H 164 H Calcium Magnesium AST Total Creatine Kinase CK-MB (CK-2) Troponin T NT-Pro-B Natriuret Pep Total Protein Albumin HDL Cholesterol 01/28/19 01/28/19 01/28/19 04:35 12:01 12:01 WBC RBC 2.67 L Hgb 7.9 L Hct 22.9 L MCV RDW Plt Count Lymph % (Auto) [place] % (Auto) Lymph # Seg Neutrophils % Seg Neuts % (Manual) Lymphocytes % (Manual) Seg Neutrophils # Seg Neutrophils # Man Lymphocytes # (Manual) PT INR POC ABG pH POC ABG pCO2 POC ABG pO2 Sodium 136 L Potassium 3.5 L Chloride Carbon Dioxide BUN 18 H Creatinine Glucose 143 H POC Glucose 139 H Calcium 8.0 L Magnesium AST Total Creatine Kinase CK-MB (CK-2) Troponin T NT-Pro-B Natriuret Pep Total Protein Albumin HDL Cholesterol 01/28/19 01/28/19 01/28/19 12:04 16:59 17:11 WBC RBC Hgb Hct MCV RDW Plt Count Lymph % (Auto) [place] % (Auto) Lymph # Seg Neutrophils % Seg Neuts % (Manual) Lymphocytes % (Manual) Seg Neutrophils # Seg Neutrophils # Man Lymphocytes # (Manual) PT INR POC ABG pH 7.488 H POC ABG pCO2 34.1 L POC ABG pO2 Sodium Potassium Chloride Carbon Dioxide BUN Creatinine Glucose POC Glucose 143 H 163 H Calcium Magnesium AST Total Creatine Kinase CK-MB (CK-2) Troponin T NT-Pro-B Natriuret Pep Total Protein Albumin HDL Cholesterol 01/29/19 01/29/19 01/29/19 00:10 05:47 12:08 WBC RBC Hgb Hct MCV RDW Plt Count Lymph % (Auto) [place] % (Auto) Lymph # Seg Neutrophils % Seg Neuts % (Manual) Lymphocytes % (Manual) Seg Neutrophils # Seg Neutrophils # Man Lymphocytes # (Manual) PT INR POC ABG pH POC ABG pCO2 POC ABG pO2 Sodium Potassium Chloride Carbon Dioxide BUN Creatinine Glucose POC Glucose 171 H 187 H 137 H Calcium Magnesium AST Total Creatine Kinase CK-MB (CK-2) Troponin T NT-Pro-B Natriuret Pep Total Protein Albumin HDL Cholesterol 01/29/19 01/29/19 01/29/19 16:48 16:54 17:47 WBC RBC Hgb Hct MCV RDW Plt Count Lymph % (Auto) [place] % (Auto) Lymph # Seg Neutrophils % Seg Neuts % (Manual) Lymphocytes % (Manual) Seg Neutrophils # Seg Neutrophils # Man Lymphocytes # (Manual) PT INR POC ABG pH 7.486 H 7.512 H POC ABG pCO2 32.8 L 32.7 L POC ABG pO2 108 H Sodium Potassium Chloride Carbon Dioxide BUN Creatinine Glucose POC Glucose 156 H Calcium Magnesium AST Total Creatine Kinase CK-MB (CK-2) Troponin T NT-Pro-B Natriuret Pep Total Protein Albumin HDL Cholesterol 01/29/19 01/30/19 01/30/19 23:48 06:45 07:18 WBC RBC 2.94 L Hgb 8.6 L Hct 25.7 L MCV RDW Plt Count Lymph % (Auto) [place] % (Auto) Lymph # Seg Neutrophils % Seg Neuts % (Manual) Lymphocytes % (Manual) Seg Neutrophils # Seg Neutrophils # Man Lymphocytes # (Manual) PT INR POC ABG pH POC ABG pCO2 POC ABG pO2 Sodium 135 L Potassium Chloride Carbon Dioxide BUN Creatinine Glucose 141 H POC Glucose 185 H Calcium 8.3 L Magnesium AST Total Creatine Kinase CK-MB (CK-2) Troponin T NT-Pro-B Natriuret Pep Total Protein Albumin HDL Cholesterol 01/30/19 01/30/19 01/30/19 11:17 16:47 18:16 WBC RBC Hgb Hct MCV RDW Plt Count Lymph % (Auto) [place] % (Auto) Lymph # Seg Neutrophils % Seg Neuts % (Manual) Lymphocytes % (Manual) Seg Neutrophils # Seg Neutrophils # Man Lymphocytes # (Manual) PT INR POC ABG pH 7.508 H POC ABG pCO2 31.5 L POC ABG pO2 135 H Sodium Potassium Chloride Carbon Dioxide BUN Creatinine Glucose POC Glucose 170 H 108 H Calcium Magnesium AST Total Creatine Kinase CK-MB (CK-2) Troponin T NT-Pro-B Natriuret Pep Total Protein Albumin HDL Cholesterol 01/30/19 01/31/19 01/31/19 23:38 05:45 12:04 WBC RBC Hgb Hct MCV RDW Plt Count Lymph % (Auto) [place] % (Auto) Lymph # Seg Neutrophils % Seg Neuts % (Manual) Lymphocytes % (Manual) Seg Neutrophils # Seg Neutrophils # Man Lymphocytes # (Manual) PT INR POC ABG pH POC ABG pCO2 POC ABG pO2 Sodium Potassium Chloride Carbon Dioxide BUN Creatinine Glucose POC Glucose 146 H 121 H 152 H Calcium Magnesium AST Total Creatine Kinase CK-MB (CK-2) Troponin T NT-Pro-B Natriuret Pep Total Protein Albumin HDL Cholesterol 01/31/19 01/31/19 02/01/19 17:44 23:58 05:46 WBC RBC Hgb Hct MCV RDW Plt Count Lymph % (Auto) [place] % (Auto) Lymph # Seg Neutrophils % Seg Neuts % (Manual) Lymphocytes % (Manual) Seg Neutrophils # Seg Neutrophils # Man Lymphocytes # (Manual) PT INR POC ABG pH POC ABG pCO2 POC ABG pO2 Sodium Potassium Chloride Carbon Dioxide BUN Creatinine Glucose POC Glucose 153 H 183 H 116 H Calcium Magnesium AST Total Creatine Kinase CK-MB (CK-2) Troponin T NT-Pro-B Natriuret Pep Total Protein Albumin HDL Cholesterol 02/01/19 02/01/19 02/01/19 11:10 12:18 17:48 WBC RBC Hgb Hct MCV RDW Plt Count Lymph % (Auto) [place] % (Auto) Lymph # Seg Neutrophils % Seg Neuts % (Manual) Lymphocytes % (Manual) Seg Neutrophils # Seg Neutrophils # Man Lymphocytes # (Manual) PT INR POC ABG pH POC ABG pCO2 POC ABG pO2 Sodium 133 L Potassium 3.3 L Chloride 96.1 L Carbon Dioxide BUN Creatinine Glucose 145 H POC Glucose 175 H 129 H Calcium 8.3 L Magnesium AST Total Creatine Kinase CK-MB (CK-2) Troponin T NT-Pro-B Natriuret Pep Total Protein Albumin HDL Cholesterol 02/01/19 02/02/19 02/02/19 23:13 05:16 06:00 WBC RBC Hgb Hct MCV RDW Plt Count Lymph % (Auto) [place] % (Auto) Lymph # Seg Neutrophils % Seg Neuts % (Manual) Lymphocytes % (Manual) Seg Neutrophils # Seg Neutrophils # Man Lymphocytes # (Manual) PT INR POC ABG pH POC ABG pCO2 POC ABG pO2 Sodium 135 L Potassium Chloride Carbon Dioxide BUN 18 H Creatinine Glucose 121 H POC Glucose 143 H 140 H Calcium 8.3 L Magnesium 1.60 L AST Total Creatine Kinase CK-MB (CK-2) Troponin T NT-Pro-B Natriuret Pep Total Protein Albumin HDL Cholesterol 02/02/19 02/02/19 02/02/19 12:06 18:23 23:45 WBC RBC Hgb Hct MCV RDW Plt Count Lymph % (Auto) [place] % (Auto) Lymph # Seg Neutrophils % Seg Neuts % (Manual) Lymphocytes % (Manual) Seg Neutrophils # Seg Neutrophils # Man Lymphocytes # (Manual) PT INR POC ABG pH POC ABG pCO2 POC ABG pO2 Sodium Potassium Chloride Carbon Dioxide BUN Creatinine Glucose POC Glucose 156 H 159 H 139 H Calcium Magnesium AST Total Creatine Kinase CK-MB (CK-2) Troponin T NT-Pro-B Natriuret Pep Total Protein Albumin HDL Cholesterol 02/03/19 02/03/19 02/03/19 05:19 12:02 17:24 WBC RBC Hgb Hct MCV RDW Plt Count Lymph % (Auto) [place] % (Auto) Lymph # Seg Neutrophils % Seg Neuts % (Manual) Lymphocytes % (Manual) Seg Neutrophils # Seg Neutrophils # Man Lymphocytes # (Manual) PT INR POC ABG pH POC ABG pCO2 POC ABG pO2 Sodium Potassium Chloride Carbon Dioxide BUN Creatinine Glucose POC Glucose 147 H 163 H 144 H Calcium Magnesium AST Total Creatine Kinase CK-MB (CK-2) Troponin T NT-Pro-B Natriuret Pep Total Protein Albumin HDL Cholesterol 02/03/19 02/04/19 02/04/19 23:43 05:30 11:14 WBC RBC 3.00 L Hgb 8.7 L Hct 25.9 L MCV RDW Plt Count Lymph % (Auto) 11.5 L [place] % (Auto) 7.5 H Lymph # 0.8 L Seg Neutrophils % 79.6 H Seg Neuts % (Manual) Lymphocytes % (Manual) Seg Neutrophils # Seg Neutrophils # Man Lymphocytes # (Manual) PT INR POC ABG pH POC ABG pCO2 POC ABG pO2 Sodium Potassium Chloride Carbon Dioxide BUN Creatinine Glucose POC Glucose 131 H 145 H Calcium Magnesium AST Total Creatine Kinase CK-MB (CK-2) Troponin T NT-Pro-B Natriuret Pep Total Protein Albumin HDL Cholesterol 02/04/19 02/04/19 02/04/19 11:14 12:09 17:37 WBC RBC Hgb Hct MCV RDW Plt Count Lymph % (Auto) [place] % (Auto) Lymph # Seg Neutrophils % Seg Neuts % (Manual) Lymphocytes % (Manual) Seg Neutrophils # Seg Neutrophils # Man Lymphocytes # (Manual) PT INR POC ABG pH POC ABG pCO2 POC ABG pO2 Sodium Potassium Chloride 96.5 L Carbon Dioxide BUN 30 H Creatinine Glucose 142 H POC Glucose 149 H 170 H Calcium Magnesium AST Total Creatine Kinase CK-MB (CK-2) Troponin T NT-Pro-B Natriuret Pep Total Protein Albumin HDL Cholesterol 02/04/19 02/05/19 02/05/19 23:33 04:27 04:27 WBC RBC 3.61 L Hgb Hct MCV RDW Plt Count Lymph % (Auto) 12.3 L [place] % (Auto) Lymph # 0.9 L Seg Neutrophils % 79.1 H Seg Neuts % (Manual) Lymphocytes % (Manual) Seg Neutrophils # Seg Neutrophils # Man Lymphocytes # (Manual) PT INR POC ABG pH POC ABG pCO2 POC ABG pO2 Sodium Potassium Chloride 96.0 L Carbon Dioxide BUN 26 H Creatinine Glucose 118 H POC Glucose 182 H Calcium Magnesium AST Total Creatine Kinase CK-MB (CK-2) Troponin T NT-Pro-B Natriuret Pep Total Protein Albumin HDL Cholesterol 02/05/19 02/05/19 05:51 12:37 WBC RBC Hgb Hct MCV RDW Plt Count Lymph % (Auto) [place] % (Auto) Lymph # Seg Neutrophils % Seg Neuts % (Manual) Lymphocytes % (Manual) Seg Neutrophils # Seg Neutrophils # Man Lymphocytes # (Manual) PT INR POC ABG pH POC ABG pCO2 POC ABG pO2 Sodium Potassium Chloride Carbon Dioxide BUN Creatinine Glucose POC Glucose 162 H 147 H Calcium Magnesium AST Total Creatine Kinase CK-MB (CK-2) Troponin T NT-Pro-B Natriuret Pep Total Protein Albumin HDL Cholesterol Chest x-ray: report reviewed, image reviewed Additional Studies: CXR done on 02/04/2019 FINDINGS: Tracheostomy tube now in place with standard position NG tube with tip below diaphragm Right PICC with tip SVC Increase in patchy right base airspace disease. Stringy left base airspace disease is stable Blunting right costophrenic sulcus which may represent trace effusion No pneumothorax IMPRESSION: Interval placement tracheostomy tube with standard position Increase in right basilar airspace disease and trace effusion. Allied health notes reviewed: nursing
[2019-02-05] MEDS: SODIUM CHLORIDE FLUSH SYRINGE 10 ML IV SCH ×2 (17:23→22:39)
[2019-02-05] MEDS: PREVACID SOLUTAB FEEDTUBE SCH ×2 (17:23→22:38)
--- NOTE | 2019-02-05 19:17 | Progress Note ---
Assessment and Plan 73 yo F with VDRF, coma Plan: 1. continue TF via NGT 2. will need cardiology and pulmonary risk assessment prior to undergoing general anesthesia. 3. 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 I explained the indication for surgical placement. I also explained that this can be performed laparoscopically or in an open fashion. They are not agreeable to open G tube placement and want it done only if can be done laparoscopically. They also indicated that if she was high risk for surgery, they would not want to proceed. I also made them aware of neurology impression. They are adamant to continue all aggressive measures and feel that patient will have a meaningful recovery. Will await pulm and cards recs and schedule G tube placement. Thank you, please call with questions. Subjective Date of service: 02/05/19 Narrative: Pt seen and examined. Reconsult requested by Dr. Gonsalves for G tube placement. IR unable to find safe window for percutaneous G tube placement due to colon overlying the stomach. The patient has been off the ventilator and on T piece via trach. She is tolerating TF. No change in neurological condition. Objective Vital Signs - 12hr 02/05/19 02/05/19 02/05/19 08:00 08:45 09:41 Temperature 97.6 F Pulse Rate [ 85 Anterior Bilateral Throughout] Respiratory 18 Rate Respiratory 20 Rate [Anterior Bilateral Throughout] Blood Pressure 115/66 O2 Sat by Pulse 100 95 Oximetry 02/05/19 02/05/19 09:51 13:36 Temperature Pulse Rate [ 80 79 Anterior Bilateral Throughout] Respiratory Rate Respiratory 20 20 Rate [Anterior Bilateral Throughout] Blood Pressure O2 Sat by Pulse Oximetry - General physical appearance Narrative Exam: Gen: on vent, opened left eye when abdomen examined. Otherwise not responsive ENT: NGT in place with TF running CV: S1, S2+ resp: even and unlabored Abd: soft, mildly distended, NT. no r/r/g Ext: no c/c/e well developed - Labs 02/05/19 04:27 02/05/19 04:27 Diabetes panel 02/05/19 Range/Units 04:27 Sodium 138 (137-145) mmol/L Potassium 4.4 (3.6-5.0) mmol/L Chloride 96.0 L (98-107) mmol/L Carbon Dioxide 28 (22-30) mmol/L BUN 26 H (7-17) mg/dL Creatinine 0.7 (0.7-1.2) mg/dL Glucose 118 H (65-100) mg/dL Calcium 9.5 (8.4-10.2) mg/dL Calcium panel 02/05/19 Range/Units 04:27 Calcium 9.5 (8.4-10.2) mg/dL Pituitary panel 02/05/19 Range/Units 04:27 Sodium 138 (137-145) mmol/L Potassium 4.4 (3.6-5.0) mmol/L Chloride 96.0 L (98-107) mmol/L Carbon Dioxide 28 (22-30) mmol/L BUN 26 H (7-17) mg/dL Creatinine 0.7 (0.7-1.2) mg/dL Glucose 118 H (65-100) mg/dL Calcium 9.5 (8.4-10.2) mg/dL Adrenal panel 02/05/19 Range/Units 04:27 Sodium 138 (137-145) mmol/L Potassium 4.4 (3.6-5.0) mmol/L Chloride 96.0 L (98-107) mmol/L Carbon Dioxide 28 (22-30) mmol/L BUN 26 H (7-17) mg/dL Creatinine 0.7 (0.7-1.2) mg/dL Glucose 118 H (65-100) mg/dL Calcium 9.5 (8.4-10.2) mg/dL
[2019-02-06] MEDS: DUONEB *Not for PRN Use IH SCH ×4 (01:49→20:40)
[2019-02-06] MEDS: HumaLOG SUB-Q SCH ×4 (02:12→18:48)
[2019-02-06] MEDS: REGLAN IV SCH ×3 (06:03→21:54)
[2019-02-06] MEDS: LASIX PO SCH ×3 (06:03→18:48)
[2019-02-06] MEDS: COREG PO SCH ×2 (09:08→21:54)
[2019-02-06] MEDS: NORVASC PO SCH (09:08)
[2019-02-06] MEDS: LOVENOX SUB-Q SCH (09:08)
[2019-02-06] MEDS: KEPPRA PO SCH ×2 (09:08→21:53)
[2019-02-06] MEDS: BABY ASPIRIN PO SCH (09:08)
[2019-02-06] MEDS: PREVACID SOLUTAB FEEDTUBE SCH ×2 (09:08→21:53)
[2019-02-06] MEDS: KENALOG TP SCH ×2 (09:09→21:55)
[2019-02-06] MEDS: SODIUM CHLORIDE FLUSH SYRINGE 10 ML IV SCH ×2 (09:09→21:54)
--- NOTE | 2019-02-06 10:14 | Progress Note ---
Assessment and Plan Cardiology has been asked to re-evaluate pt prior to G tube placement. She remains stable cardiac-galloway. She is currently at high cardiovascular risk for G tube placement. There are no immediate cardiac contraindications to proceeding with G tube placement at this time. The patient has been seen in conjunction with Dr. Montes De Oca who agrees with assessment and plan of care. 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 in SR on tele. Objective Last Vital Signs Temp 98.0 F 02/06/19 03:47 Pulse 77 02/06/19 08:46 Resp 16 02/06/19 08:46 BP 104/60 02/06/19 03:47 Pulse Ox 99 02/06/19 08:45 - Physical Examination General: Other (trached, nonresponsive) Cardiac: Positive: Reg Rate and Rhythm, S1/S2 Lungs: Positive: Decreased Breath Sounds Neuro: Positive: Other (trached, nonresponsive) Abdomen: Positive: Unremarkable Skin: Positive: Other (dry) Extremities: Absent: edema - Imaging and Cardiology EKG: image reviewed Echo: report reviewed (moderate global hypokinesis of LV, EF 35-40%, impaired LV diastolic filling, moderate MR and TR, moderate pulm htn.) - Telemetry EKG Rhythm: Sinus Rhythm Chamber hypertrophy or enlargement: left ventricular hypertro Repolarization changes or abnormalities: ST or T wave suggestive of ischemia - Allied health notes Allied health notes reviewed: nursing
--- NOTE | 2019-02-06 15:03 | Progress Note ---
Assessment and Plan 73 yo F with VDRF, coma Plan: 1. continue TF via NGT 2. per cards note - patient high risk for surgery, no immediate contraindication to proceeding 3. Pulm note pending. Likely grade [address] Gonsalves 4. 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 Mason (granddaughter) over telephone as no family at bedside. She states she needs to discuss this with her mother and aunt prior to making any decisions regarding surgery. I again explained laparoscopic G tube placement. Will await family decision. Thank you, please call with questions. Subjective Date of service: 02/06/19 Narrative: Pt seen and examined. No change in condition. Objective Vital Signs - 12hr 02/06/19 02/06/19 02/06/19 03:47 08:35 08:37 Temperature 98.0 F Pulse Rate 81 Pulse Rate [ 88 Anterior Bilateral Throughout] Respiratory 20 Rate Respiratory 18 Rate [Anterior Bilateral Throughout] Blood Pressure 104/60 O2 Sat by Pulse 98 Oximetry O2 Sat by Pulse 98 Oximetry [ Assessment] 02/06/19 02/06/19 02/06/19 08:45 08:46 13:55 Temperature Pulse Rate Pulse Rate [ 77 84 Anterior Bilateral Throughout] Respiratory Rate Respiratory 16 18 Rate [Anterior Bilateral Throughout] Blood Pressure O2 Sat by Pulse 99 Oximetry O2 Sat by Pulse Oximetry [ Assessment] 02/06/19 14:01 Temperature Pulse Rate Pulse Rate [ Anterior Bilateral Throughout] Respiratory Rate Respiratory Rate [Anterior Bilateral Throughout] Blood Pressure O2 Sat by Pulse Oximetry O2 Sat by Pulse 99 Oximetry [ Assessment] - General physical appearance Narrative Exam: Gen: Unresponsive ETT: trach in place CV: s1, S2+ resp; even and unlabored Abd: soft, NT, ND Ext: no c/c/e - Labs 02/05/19 04:27 02/05/19 04:27
--- NOTE | 2019-02-06 15:23 | Progress Note ---
Assessment and Plan Assessment and plan: Patient is 73 yo woman with a history of hypertension, CAD s/p stent and COPD/emphesema, not on home Oxygen who presented to [facility] ED on 01/15/2019 after cardiac arrest. She was in PEA, given 2 rounds of IV Epinephrine, CPR, intubated , resuscitated, and brought to ED. She had seizures later same day, was started on keppra. She had CARMELINA on presentation, resolved in few days. She remained comatose, acute respiratory failure vent dependent. Trach and PEG was recommended. Tracheostomy done 01/25. PEG not done yet because of abdominal distension and poor light translumination. She has poor prognosis and may need LTAC Cardiopulmonary arrest. Patient with out of hospital PEA arrest and ROSC. Cardiology following. Acute hypoxemic hypercapnic respiratory failure. Patient previously on mechanical ventilation but has been weaned. Continue ATP trials. Continue trach care. Aspiration pneumonia. Continue IV antibiotics per ID. Aspiration precautions. Sepsis. Tracheal aspirate and blood cultures are negative to date. ID following. Anoxic encephalopathy. EEG 01/17/19 reported as abnormal with minimal brain activity. No epileptiform discharges. Neurology following Oropharyngeal dysphagia. I have asked Gen surgery(Dr Bassett) to revisit for possible surgical placement of G-tube given the recommendation in Dr. Rita LEWIS of 02/01/19 Acute renal failure. Etiology likely secondary to acute kidney injury from sepsis. Creatinine is stable. Continue to monitor. Pulmonary hypertension. Consider CT of the chest when medically stable. Acute systolic heart failure. Patient with moderate global hypokinesis of left ventricle EF 35-40% and left ventricular systolic function moderately decreased. 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 Patient transferred to the floor tuesday Awaiting pre-op Cardiology evaluation History Interval history: Patient was seen and examined. Follow-up on current diagnosis of Cardiac arrest. No overnight events reported to me. Patient nonverbal. Imaging, nursing note, chart, labs and old chart reviewed. Hospitalist Physical - Physical exam Narrative exam: Gen: ill appearing, cachetic, unresponsive, comatose HEENT: NCAT, trach in place Neck: supple, no adenopathy, no thyromegaly, no JVD CVS/Heart: RRR, normal S1S2, pulses present bilaterally Chest/Lungs: diminished bs bilateral, Symmetrical chest expansion, good air entry bilaterally GI/Abdomen: soft, NTND, good bowel sounds, no guarding or rebound Extermity/Skin: no obvious rash MSK: unresponsive Neuro: unresponsive Psych: unresponsive - Constitutional Vitals: Temp Pulse Resp BP Pulse Ox 98.0 F 84 18 104/60 99 02/06/19 03:47 02/06/19 13:55 02/06/19 13:55 02/06/19 03:47 02/06/19 14:01 General appearance: Present: other (trached, nonresponsive at time of examination) Results - Labs CBC & Chem 7: 02/05/19 04:27 02/05/19 04:27 Labs: Laboratory Last Values WBC 7.7 K/mm3 (4.5-11.0) 02/05/19 04:27 RBC 3.61 M/mm3 (3.65-5.03) L 02/05/19 04:27 Hgb 10.3 gm/dl (10.1-14.3) 02/05/19 04:27 Hct 31.7 % (30.3-42.9) 02/05/19 04:27 MCV 88 fl (79-97) 02/05/19 04:27 MCH 29 pg (28-32) 02/05/19 04:27 MCHC 33 % (30-34) 02/05/19 04:27 RDW 14.7 % (13.2-15.2) 02/05/19 04:27 Plt Count 250 K/mm3 (140-440) 02/05/19 04:27 Lymph % (Auto) 12.3 % (13.4-35.0) L 02/05/19 04:27 [place] % (Auto) 7.1 % (0.0-7.3) 02/05/19 04:27 Eos % (Auto) 1.1 % (0.0-4.3) 02/05/19 04:27 Baso % (Auto) 0.4 % (0.0-1.8) 02/05/19 04:27 Lymph # 0.9 K/mm3 (1.2-5.4) L 02/05/19 04:27 [place] # 0.5 K/mm3 (0.0-0.8) 02/05/19 04:27 Eos # 0.1 K/mm3 (0.0-0.4) 02/05/19 04:27 Baso # 0.0 K/mm3 (0.0-0.1) 02/05/19 04:27 Add Manual Diff Complete 01/16/19 04:16 Total Counted 100 01/16/19 04:16 Seg Neutrophils % 79.1 % (40.0-70.0) H 02/05/19 04:27 Seg Neuts % (Manual) 74.0 % (40.0-70.0) H 01/16/19 04:16 22.0 % 01/16/19 04:16 2.0 % (13.4-35.0) L 01/16/19 04:16 Reactive Lymphs % (Man) 0 % 01/16/19 04:16 2.0 % (0.0-7.3) 01/16/19 04:16 0 % (0.0-4.3) 01/16/19 04:16 0 % (0.0-1.8) 01/16/19 04:16 0 % 01/16/19 04:16 0 % 01/16/19 04:16 0 % 01/16/19 04:16 0 % 01/16/19 04:16 Nucleated RBC % Not Reportable 01/16/19 04:16 Seg Neutrophils # 6.1 K/mm3 (1.8-7.7) 02/05/19 04:27 Seg Neutrophils # Man 8.4 K/mm3 (1.8-7.7) H 01/16/19 04:16 Band Neutrophils # 2.5 K/mm3 01/16/19 04:16 0.2 K/mm3 (1.2-5.4) L 01/16/19 04:16 Abs React Lymphs (Man) 0.0 K/mm3 01/16/19 04:16 0.2 K/mm3 (0.0-0.8) 01/16/19 04:16 0.0 K/mm3 (0.0-0.4) 01/16/19 04:16 0.0 K/mm3 (0.0-0.1) 01/16/19 04:16 0.0 K/mm3 01/16/19 04:16 0.0 K/mm3 01/16/19 04:16 0.0 K/mm3 01/16/19 04:16 Blast Cells # 0.0 K/mm3 01/16/19 04:16 WBC Morphology Not Reportable 01/16/19 04:16 Hypersegmented Neuts Not Reportable 01/16/19 04:16 Hyposegmented Neuts Not Reportable 01/16/19 04:16 Hypogranular Neuts Not Reportable 01/16/19 04:16 Not Reportable 01/16/19 04:16 Not Reportable 01/16/19 04:16 Not Reportable 01/16/19 04:16 Not Reportable 01/16/19 04:16 Not Reportable 01/16/19 04:16 Not Reportable 01/16/19 04:16 Consistent w auto 01/16/19 04:16 Not Reportable 01/16/19 04:16 Plt Clumps, EDTA Not Reportable 01/16/19 04:16 Not Reportable 01/16/19 04:16 Not Reportable 01/16/19 04:16 Not Reportable 01/16/19 04:16 Plt Morphology Comment Not Reportable 01/16/19 04:16 RBC Morphology Normal 01/16/19 04:16 Dimorphic RBCs Not Reportable 01/16/19 04:16 Not Reportable 01/16/19 04:16 Not Reportable 01/16/19 04:16 Not Reportable 01/16/19 04:16 Not Reportable 01/16/19 04:16 Not Reportable 01/16/19 04:16 Not Reportable 01/16/19 04:16 Not Reportable 01/16/19 04:16 Not Reportable 01/16/19 04:16 Not Reportable 01/16/19 04:16 Not Reportable 01/16/19 04:16 Not Reportable 01/16/19 04:16 Not Reportable 01/16/19 04:16 Not Reportable 01/16/19 04:16 Not Reportable 01/16/19 04:16 Not Reportable 01/16/19 04:16 Not Reportable 01/16/19 04:16 Not Reportable 01/16/19 04:16 Not Reportable 01/16/19 04:16 Not Reportable 01/16/19 04:16 Acanthocytes (Spur) Not Reportable 01/16/19 04:16 Rouleaux Not Reportable 01/16/19 04:16 Not Reportable 01/16/19 04:16 Not Reportable 01/16/19 04:16 Not Reportable 01/16/19 04:16 Not Reportable 01/16/19 04:16 Hem Pathologist Commnt No 01/16/19 04:16 PT 18.8 Sec. (12.2-14.9) H 01/25/19 05:15 INR 1.47 (0.87-1.13) H 01/25/19 05:15 APTT 36.0 Sec. (24.2-36.6) 01/15/19 07:50 Heparin Anti-Xa, Unfract Negative (Negative) 01/19/19 Unknown POC ABG pH 7.508 (7.35-7.45) H 01/30/19 16:47 POC ABG pCO2 31.5 (35-45) L 01/30/19 16:47 POC ABG pO2 135 (80-105) H 01/30/19 16:47 POC ABG HCO3 25.0 (22-26 mml/L) 01/30/19 16:47 POC ABG Total CO2 26 (23-27mmol/L) 01/30/19 16:47 POC ABG O2 Sat 99 01/30/19 16:47 POC ABG Base Excess 2 ((-2) - (+3)mmol/L) 01/30/19 16:47 28 % 01/30/19 16:47 Sodium 138 mmol/L (137-145) 02/05/19 04:27 Potassium 4.4 mmol/L (3.6-5.0) 02/05/19 04:27 Chloride 96.0 mmol/L (98-107) L 02/05/19 04:27 Carbon Dioxide 28 mmol/L (22-30) 02/05/19 04:27 18 mmol/L 02/05/19 04:27 BUN 26 mg/dL (7-17) H 02/05/19 04:27 0.7 mg/dL (0.7-1.2) 02/05/19 04:27 Estimated GFR > 60 ml/min 02/05/19 04:27 37 % 02/05/19 04:27 Glucose 118 mg/dL (65-100) H 02/05/19 04:27 POC Glucose 156 (70-105) H 02/06/19 12:02 6.0 % (4-6) 01/15/19 11:53 Calcium 9.5 mg/dL (8.4-10.2) 02/05/19 04:27 Phosphorus 3.10 mg/dL (2.5-4.5) 02/02/19 06:00 Magnesium 1.60 mg/dL (1.7-2.3) L 02/02/19 06:00 0.30 mg/dL (0.1-1.2) 01/23/19 Unknown AST 88 units/L (5-40) H 01/23/19 Unknown ALT 31 units/L (7-56) 01/23/19 Unknown 48 units/L (35-129) 01/23/19 Unknown 1430 units/L (30-135) H 01/15/19 17:52 CK-MB (CK-2) 13.5 ng/mL (0.0-4.0) H 01/15/19 17:52 CK-MB (CK-2) Rel Index 0.9 (0-4) 01/15/19 17:52 0.036 ng/mL (0.00-0.029) H D 01/15/19 17:52 NT-Pro-B Natriuret Pep 5346 pg/mL (0-900) H 01/15/19 07:50 6.0 g/dL (6.3-8.2) L 01/23/19 Unknown 2.9 g/dL (3.9-5) L 01/23/19 Unknown 0.9 % 01/23/19 Unknown Triglycerides 75 mg/dL (2-149) 01/15/19 17:52 Cholesterol 149 mg/dL (50-199) 01/15/19 17:52 84 mg/dL (50-130) 01/15/19 17:52 65 mg/dL (40-59) H 01/15/19 17:52 2.29 % 01/15/19 17:52 See scanned report 01/19/19 Unknown Yellow (Yellow) 01/21/19 16:10 Clear (Clear) 01/21/19 16:10 6.0 (5.0-7.0) 01/21/19 16:10 Ur Specific [place] 1.015 (1.003-1.030) 01/21/19 16:10 <15 mg/dl mg/dL (Negative) 01/21/19 16:10 Neg mg/dL (Negative) 01/21/19 16:10 Neg mg/dL (Negative) 01/21/19 16:10 Neg (Negative) 01/21/19 16:10 Neg (Negative) 01/21/19 16:10 Neg (Negative) 01/21/19 16:10 2.0 mg/dL (<2.0) 01/21/19 16:10 Ur Leukocyte Esterase Neg (Negative) 01/21/19 16:10 1.0 /HPF (0.0-6.0) 01/21/19 16:10 5.0 /HPF (0.0-6.0) 01/21/19 16:10 Presumptive negative 01/15/19 16:30 Presumptive negative 01/15/19 16:30 Ur Barbiturates Screen Presumptive negative 01/15/19 16:30 Ur Phencyclidine Scrn Presumptive negative 01/15/19 16:30 Ur Amphetamines Screen Presumptive negative 01/15/19 16:30 U Benzodiazepines Scrn Presumptive negative 01/15/19 16:30 Presumptive negative 01/15/19 16:30 U Marijuana (THC) Screen Presumptive negative 01/15/19 16:30 Disclamer 01/15/19 16:30 Heparin-induced Plt Ab Negative (Negative) 01/19/19 Unknown UF Heparin High Dose 3 % Release 01/19/19 Unknown JOSEFA UFH Low Dose 0.1 4 % Release 01/19/19 Unknown JOSEFA UFH Low Dose 0.5 5 % Release 01/19/19 Unknown C. difficile Tox (PCR) Negative (Negative) 01/16/19 00:00 Active Medications - Current Medications Current Medications: Generic Name Dose Route Start Last Admin Trade Name Freq PRN Reason Stop Dose Admin Acetaminophen 650 mg 01/16/19 09:37 01/20/19 00:24 Tylenol PO 650 mg Q4H PRN Administration Fever >101 Albuterol/Ipratropium 1 ampul 01/15/19 14:00 02/06/19 13:57 Duoneb *Not For Prn Use* IH 1 ampul Q6HRT DEON Administration Amlodipine Besylate 10 mg 01/24/19 12:00 02/06/19 09:08 Norvasc PO 10 mg DAILY DEON Administration Lipase/Protease/Amylase 1 each 02/02/19 14:21 Pancredelia Siddiqui 10,500 Unit FEEDTUBE PRN PRN For Clogged Feeding Tube Aspirin 81 mg 01/16/19 10:00 02/06/19 09:08 Baby Aspirin PO 81 mg QDAY DEON Administration Atorvastatin Calcium 20 mg 01/16/19 22:00 02/05/19 22:38 Lipitor PO 20 mg QHS DEON Administration Carvedilol 12.5 mg 01/24/19 22:00 02/06/19 09:08 Coreg PO 12.5 mg BID DEON Administration Enoxaparin Sodium 40 mg 01/30/19 10:00 02/06/19 09:08 Lovenox SUB-Q 40 mg QDAY@1000 DEON Administration Furosemide 20 mg 01/19/19 18:00 02/06/19 06:16 Lasix PO Not Given 0600,1800 [facility] Insulin Human Lispro 0 unit 01/22/19 14:00 02/06/19 13:00 Humalog SUB-Q 2 unit Q6HR DEON Administration Protocol Lansoprazole 30 mg 01/30/19 10:00 02/06/19 09:08 Prevacid Solutab FEEDTUBE 30 mg BID DEON Administration Levetiracetam 750 mg 01/18/19 10:00 02/06/19 09:08 Keppra PO 750 mg BID DEON Administration Metoclopramide HCl 10 mg 02/01/19 14:00 02/06/19 15:14 Reglan IV 10 mg Q8HR DEON Administration Simple Syrup 15 ml 02/02/19 14:21 Simple Syrup FEEDTUBE PRN PRN Hypoglycemia Simple Syrup 30 ml 02/02/19 14:21 Simple Syrup FEEDTUBE PRN PRN Hypoglycemia Sodium Bicarbonate 325 mg 02/02/19 14:21 Sodium Bicarbonate FEEDTUBE PRN PRN For Clogged Feeding Tube Sodium Chloride 10 ml 01/15/19 22:00 02/06/19 09:09 Sodium Chloride Flush Syringe 10 Ml IV 10 ml BID DEON Administration Sodium Chloride 10 ml 01/15/19 10:34 01/29/19 12:43 Sodium Chloride Flush Syringe 10 Ml IV 10 ml PRN PRN Administration LINE FLUSH Triamcinolone Acetonide 1 applic 01/24/19 14:00 02/06/19 09:09 Kenalog TP 1 applic BID DEON Administration Nutrition/Malnutrition Assess - Dietary Evaluation Nutrition/Malnutrition Findings: Nutrition Notes Start: 01/15/19 14:28 Freq: Status: Active Protocol: Document 02/05/19 14:19 RM (Rec: 02/05/19 14:26 RM [id number]) Nutrition Notes Initial or Follow up Reassessment Current Diagnosis Acute Kidney Injury,Heart Failure,Respiratory Failure Other Pertinent Diagnosis dysphagia, s/p cardiorespiratory arrest (at home), Aspiration Pneu Current Diet Glucerna 1.2 at 50 ml/hr Labs/Tests Na 138 Pertinent Medications Lasix Height 5 ft 4 in Weight 47.7 kg [place] Body Weight (kg) 54.54 BMI 18.0 Subjective/Other Information Observed Glucerna 1.2 infusing at 50 ml/hr. Pt is tolerating TF per nurse. Percent of energy/protein needs met: 86%/100% Burn Absent Trauma Absent #1 Nutrition Diagnosis Inadequate oral intake Diagnosis Progress(for reassessment Continues documentation) Is patient on ventilator? No Is Patient Ambulatory and/or Out of Bed No REE-([place]-confined to bed) 1155.024 Kcal/Kg value to use for calculation 35 Approximate Energy Requirements Using 1670 kcal/Kg Calculation Used for Recommendations Kcal/kg Additional Notes Pro needs 1-1.2g/k-57g/day Fluid needs 1ml/kcal Nutrition Intervention Nutrition Support: Glucerna 1.2 at 50ml/hr with 80ml water flush q4h. Kcal 1,440 Protein (gm) 72 Carbohydrates (gm) 137 Fluid (mL) 966 Fiber (gm) 19 Goal #1 Continue to meet at least 75% of calorie and protein needs via TF Goal #2 Wt maintenance and/or gain Follow-Up By: 02/13/19 Additional Comments Follow for TF tolerance
--- NOTE | 2019-02-06 16:08 | Progress Note ---
Subjective Date of service: 02/06/19 Principal diagnosis: OOH cardiac arrest; Acute hypoxemic-hypercapnic Resp failure; PNA Interval history: see prior note monitor for seizures as yet none noted coma is irreversible Objective - Vital Sign Vital Signs - 12hr 02/06/19 02/06/19 02/06/19 08:35 08:37 08:45 Pulse Rate [ 88 Anterior Bilateral Throughout] Respiratory 18 Rate [Anterior Bilateral Throughout] O2 Sat by Pulse 99 Oximetry O2 Sat by Pulse 98 Oximetry [ Assessment] 02/06/19 02/06/19 02/06/19 08:46 13:55 14:01 Pulse Rate [ 77 84 Anterior Bilateral Throughout] Respiratory 16 18 Rate [Anterior Bilateral Throughout] O2 Sat by Pulse Oximetry O2 Sat by Pulse 99 Oximetry [ Assessment] - Laboratory Findings CBC and BMP: 02/05/19 04:27 02/05/19 04:27 Abnormal Lab Findings: Abnormal Labs 01/15/19 01/15/19 01/15/19 07:50 07:50 07:50 WBC RBC Hgb Hct MCV 99 H RDW 16.7 H Plt Count 122 L Lymph % (Auto) Ocean % (Auto) Lymph # Seg Neutrophils % Seg Neuts % (Manual) Lymphocytes % (Manual) Seg Neutrophils # Seg Neutrophils # Man Lymphocytes # (Manual) PT 19.7 H INR 1.56 H POC ABG pH POC ABG pCO2 POC ABG pO2 Sodium Potassium Chloride Carbon Dioxide 11 L BUN Creatinine 1.4 H Glucose 268 H POC Glucose Calcium Magnesium AST 57 H Total Creatine Kinase CK-MB (CK-2) Troponin T NT-Pro-B Natriuret Pep 5346 H Total Protein Albumin 3.6 L HDL Cholesterol 01/15/19 01/15/19 01/15/19 09:56 11:53 17:52 WBC RBC Hgb Hct MCV RDW Plt Count Lymph % (Auto) Ocean % (Auto) Lymph # Seg Neutrophils % Seg Neuts % (Manual) Lymphocytes % (Manual) Seg Neutrophils # Seg Neutrophils # Man Lymphocytes # (Manual) PT INR POC ABG pH 7.186 L POC ABG pCO2 46.4 H POC ABG pO2 Sodium Potassium Chloride Carbon Dioxide BUN Creatinine Glucose POC Glucose Calcium Magnesium AST Total Creatine Kinase 683 H 1430 H CK-MB (CK-2) 9.5 H 13.5 H Troponin T 0.036 H D NT-Pro-B Natriuret Pep Total Protein Albumin HDL Cholesterol 65 H 01/15/19 01/15/19 01/16/19 18:31 21:46 02:14 WBC RBC Hgb Hct MCV RDW Plt Count Lymph % (Auto) [place] % (Auto) Lymph # Seg Neutrophils % Seg Neuts % (Manual) Lymphocytes % (Manual) Seg Neutrophils # Seg Neutrophils # Man Lymphocytes # (Manual) PT INR POC ABG pH POC ABG pCO2 31.8 L POC ABG pO2 167 H Sodium Potassium Chloride Carbon Dioxide BUN Creatinine Glucose POC Glucose 134 H 136 H Calcium Magnesium AST Total Creatine Kinase CK-MB (CK-2) Troponin T NT-Pro-B Natriuret Pep Total Protein Albumin HDL Cholesterol 01/16/19 01/16/19 01/16/19 04:16 04:16 05:05 WBC 11.4 H RBC Hgb Hct MCV RDW Plt Count 105 L Lymph % (Auto) Ocean % (Auto) Lymph # Seg Neutrophils % Seg Neuts % (Manual) 74.0 H Lymphocytes % (Manual) 2.0 L Seg Neutrophils # Seg Neutrophils # Man 8.4 H Lymphocytes # (Manual) 0.2 L PT INR POC ABG pH 7.458 H POC ABG pCO2 31.4 L POC ABG pO2 135 H Sodium Potassium 3.3 L Chloride Carbon Dioxide 21 L D BUN 24 H Creatinine 1.5 H Glucose 141 H POC Glucose Calcium 8.1 L Magnesium AST 71 H Total Creatine Kinase CK-MB (CK-2) Troponin T NT-Pro-B Natriuret Pep Total Protein 6.2 L Albumin 3.5 L HDL Cholesterol 01/16/19 01/16/19 01/16/19 05:24 13:42 21:08 WBC RBC Hgb Hct MCV RDW Plt Count Lymph % (Auto) Ocean % (Auto) Lymph # Seg Neutrophils % Seg Neuts % (Manual) Lymphocytes % (Manual) Seg Neutrophils # Seg Neutrophils # Man Lymphocytes # (Manual) PT INR POC ABG pH POC ABG pCO2 POC ABG pO2 Sodium Potassium Chloride Carbon Dioxide BUN Creatinine Glucose POC Glucose 137 H 129 H 122 H Calcium Magnesium AST Total Creatine Kinase CK-MB (CK-2) Troponin T NT-Pro-B Natriuret Pep Total Protein Albumin HDL Cholesterol 01/17/19 01/17/19 01/17/19 02:18 04:23 05:13 WBC RBC Hgb Hct MCV RDW Plt Count Lymph % (Auto) [place] % (Auto) Lymph # Seg Neutrophils % Seg Neuts % (Manual) Lymphocytes % (Manual) Seg Neutrophils # Seg Neutrophils # Man Lymphocytes # (Manual) PT INR POC ABG pH 7.479 H POC ABG pCO2 30.0 L POC ABG pO2 141 H Sodium Potassium Chloride Carbon Dioxide BUN Creatinine Glucose POC Glucose 139 H 128 H Calcium Magnesium AST Total Creatine Kinase CK-MB (CK-2) Troponin T NT-Pro-B Natriuret Pep Total Protein Albumin HDL Cholesterol 01/17/19 01/17/19 01/17/19 10:22 15:59 18:45 WBC RBC Hgb Hct MCV RDW Plt Count Lymph % (Auto) [place] % (Auto) Lymph # Seg Neutrophils % Seg Neuts % (Manual) Lymphocytes % (Manual) Seg Neutrophils # Seg Neutrophils # Man Lymphocytes # (Manual) PT INR POC ABG pH POC ABG pCO2 POC ABG pO2 Sodium Potassium Chloride Carbon Dioxide BUN Creatinine Glucose POC Glucose 133 H 121 H 106 H Calcium Magnesium AST Total Creatine Kinase CK-MB (CK-2) Troponin T NT-Pro-B Natriuret Pep Total Protein Albumin HDL Cholesterol 01/17/19 01/18/19 01/18/19 23:35 04:21 04:21 WBC RBC 3.27 L Hgb 9.6 L Hct 29.9 L MCV RDW Plt Count 79 L Lymph % (Auto) 6.0 L Ocean % (Auto) Lymph # 0.5 L Seg Neutrophils % 89.2 H Seg Neuts % (Manual) Lymphocytes % (Manual) Seg Neutrophils # 8.1 H Seg Neutrophils # Man Lymphocytes # (Manual) PT INR POC ABG pH POC ABG pCO2 POC ABG pO2 Sodium Potassium Chloride Carbon Dioxide BUN 28 H Creatinine 1.3 H Glucose 129 H POC Glucose 121 H Calcium Magnesium AST 120 H Total Creatine Kinase CK-MB (CK-2) Troponin T NT-Pro-B Natriuret Pep Total Protein 5.1 L Albumin 3.0 L HDL Cholesterol 01/18/19 01/18/19 01/18/19 04:21 04:36 05:43 WBC RBC Hgb Hct MCV RDW Plt Count Lymph % (Auto) [place] % (Auto) Lymph # Seg Neutrophils % Seg Neuts % (Manual) Lymphocytes % (Manual) Seg Neutrophils # Seg Neutrophils # Man Lymphocytes # (Manual) PT INR POC ABG pH 7.485 H POC ABG pCO2 31.0 L POC ABG pO2 126 H Sodium Potassium Chloride Carbon Dioxide BUN 28 H Creatinine 1.3 H Glucose 128 H POC Glucose 142 H Calcium Magnesium AST Total Creatine Kinase CK-MB (CK-2) Troponin T NT-Pro-B Natriuret Pep Total Protein Albumin HDL Cholesterol 01/18/19 01/18/19 01/18/19 12:04 18:16 20:47 WBC RBC Hgb Hct MCV RDW Plt Count Lymph % (Auto) [place] % (Auto) Lymph # Seg Neutrophils % Seg Neuts % (Manual) Lymphocytes % (Manual) Seg Neutrophils # Seg Neutrophils # Man Lymphocytes # (Manual) PT INR POC ABG pH 7.489 H POC ABG pCO2 32.8 L POC ABG pO2 Sodium Potassium Chloride Carbon Dioxide BUN Creatinine Glucose POC Glucose 113 H 119 H Calcium Magnesium AST Total Creatine Kinase CK-MB (CK-2) Troponin T NT-Pro-B Natriuret Pep Total Protein Albumin HDL Cholesterol 01/19/19 01/19/19 01/19/19 00:40 05:35 11:39 WBC RBC Hgb Hct MCV RDW Plt Count Lymph % (Auto) [place] % (Auto) Lymph # Seg Neutrophils % Seg Neuts % (Manual) Lymphocytes % (Manual) Seg Neutrophils # Seg Neutrophils # Man Lymphocytes # (Manual) PT INR POC ABG pH POC ABG pCO2 POC ABG pO2 Sodium Potassium Chloride Carbon Dioxide BUN Creatinine Glucose POC Glucose 137 H 157 H 155 H Calcium Magnesium AST Total Creatine Kinase CK-MB (CK-2) Troponin T NT-Pro-B Natriuret Pep Total Protein Albumin HDL Cholesterol 01/19/19 01/19/19 01/19/19 18:24 21:08 23:33 WBC RBC Hgb Hct MCV RDW Plt Count Lymph % (Auto) [place] % (Auto) Lymph # Seg Neutrophils % Seg Neuts % (Manual) Lymphocytes % (Manual) Seg Neutrophils # Seg Neutrophils # Man Lymphocytes # (Manual) PT INR POC ABG pH 7.508 H POC ABG pCO2 34.2 L POC ABG pO2 Sodium Potassium Chloride Carbon Dioxide BUN Creatinine Glucose POC Glucose 145 H 156 H Calcium Magnesium AST Total Creatine Kinase CK-MB (CK-2) Troponin T NT-Pro-B Natriuret Pep Total Protein Albumin HDL Cholesterol 01/20/19 01/20/19 01/20/19 05:12 11:42 17:36 WBC RBC Hgb Hct MCV RDW Plt Count Lymph % (Auto) [place] % (Auto) Lymph # Seg Neutrophils % Seg Neuts % (Manual) Lymphocytes % (Manual) Seg Neutrophils # Seg Neutrophils # Man Lymphocytes # (Manual) PT INR POC ABG pH POC ABG pCO2 POC ABG pO2 Sodium Potassium Chloride Carbon Dioxide BUN Creatinine Glucose POC Glucose 152 H 159 H 169 H Calcium Magnesium AST Total Creatine Kinase CK-MB (CK-2) Troponin T NT-Pro-B Natriuret Pep Total Protein Albumin HDL Cholesterol 01/20/19 01/21/19 01/21/19 23:29 05:30 05:34 WBC RBC Hgb Hct MCV RDW Plt Count Lymph % (Auto) [place] % (Auto) Lymph # Seg Neutrophils % Seg Neuts % (Manual) Lymphocytes % (Manual) Seg Neutrophils # Seg Neutrophils # Man Lymphocytes # (Manual) PT INR POC ABG pH 7.616 H POC ABG pCO2 POC ABG pO2 71 L Sodium Potassium Chloride Carbon Dioxide BUN Creatinine Glucose POC Glucose 139 H 138 H Calcium Magnesium AST Total Creatine Kinase CK-MB (CK-2) Troponin T NT-Pro-B Natriuret Pep Total Protein Albumin HDL Cholesterol 01/21/19 01/21/19 01/22/19 12:41 18:47 00:07 WBC RBC Hgb Hct MCV RDW Plt Count Lymph % (Auto) [place] % (Auto) Lymph # Seg Neutrophils % Seg Neuts % (Manual) Lymphocytes % (Manual) Seg Neutrophils # Seg Neutrophils # Man Lymphocytes # (Manual) PT INR POC ABG pH POC ABG pCO2 POC ABG pO2 Sodium Potassium Chloride Carbon Dioxide BUN Creatinine Glucose POC Glucose 154 H 174 H 163 H Calcium Magnesium AST Total Creatine Kinase CK-MB (CK-2) Troponin T NT-Pro-B Natriuret Pep Total Protein Albumin HDL Cholesterol 01/22/19 01/22/19 01/22/19 04:35 05:46 12:18 WBC RBC Hgb Hct MCV RDW Plt Count Lymph % (Auto) [place] % (Auto) Lymph # Seg Neutrophils % Seg Neuts % (Manual) Lymphocytes % (Manual) Seg Neutrophils # Seg Neutrophils # Man Lymphocytes # (Manual) PT INR POC ABG pH 7.522 H POC ABG pCO2 POC ABG pO2 Sodium Potassium Chloride Carbon Dioxide BUN Creatinine Glucose POC Glucose 159 H 137 H Calcium Magnesium AST Total Creatine Kinase CK-MB (CK-2) Troponin T NT-Pro-B Natriuret Pep Total Protein Albumin HDL Cholesterol 01/22/19 01/22/19 01/22/19 15:00 15:00 18:13 WBC RBC 2.92 L Hgb 8.4 L Hct 25.6 L MCV RDW Plt Count Lymph % (Auto) [place] % (Auto) Lymph # Seg Neutrophils % Seg Neuts % (Manual) Lymphocytes % (Manual) Seg Neutrophils # Seg Neutrophils # Man Lymphocytes # (Manual) PT INR POC ABG pH POC ABG pCO2 POC ABG pO2 Sodium Potassium Chloride 97.0 L Carbon Dioxide BUN 37 H Creatinine Glucose 162 H POC Glucose 159 H Calcium 8.2 L Magnesium AST Total Creatine Kinase CK-MB (CK-2) Troponin T NT-Pro-B Natriuret Pep Total Protein Albumin HDL Cholesterol 01/22/19 01/23/19 01/23/19 22:45 00:01 05:10 WBC RBC 2.92 L Hgb 8.5 L Hct 25.4 L MCV RDW Plt Count Lymph % (Auto) 6.3 L [place] % (Auto) Lymph # 0.6 L Seg Neutrophils % 86.3 H Seg Neuts % (Manual) Lymphocytes % (Manual) Seg Neutrophils # 8.9 H Seg Neutrophils # Man Lymphocytes # (Manual) PT INR POC ABG pH POC ABG pCO2 POC ABG pO2 Sodium Potassium Chloride Carbon Dioxide BUN Creatinine Glucose POC Glucose 178 H 155 H Calcium Magnesium AST Total Creatine Kinase CK-MB (CK-2) Troponin T NT-Pro-B Natriuret Pep Total Protein Albumin HDL Cholesterol 01/23/19 01/23/19 01/23/19 11:31 17:49 Unknown WBC RBC Hgb Hct MCV RDW Plt Count Lymph % (Auto) [place] % (Auto) Lymph # Seg Neutrophils % Seg Neuts % (Manual) Lymphocytes % (Manual) Seg Neutrophils # Seg Neutrophils # Man Lymphocytes # (Manual) PT INR POC ABG pH POC ABG pCO2 POC ABG pO2 Sodium Potassium Chloride 95.4 L Carbon Dioxide BUN 37 H Creatinine Glucose 144 H POC Glucose 161 H 142 H Calcium Magnesium AST 88 H Total Creatine Kinase CK-MB (CK-2) Troponin T NT-Pro-B Natriuret Pep Total Protein 6.0 L Albumin 2.9 L HDL Cholesterol 01/24/19 01/24/19 01/24/19 00:21 05:36 12:35 WBC RBC Hgb Hct MCV RDW Plt Count Lymph % (Auto) [place] % (Auto) Lymph # Seg Neutrophils % Seg Neuts % (Manual) Lymphocytes % (Manual) Seg Neutrophils # Seg Neutrophils # Man Lymphocytes # (Manual) PT INR POC ABG pH POC ABG pCO2 POC ABG pO2 Sodium Potassium Chloride Carbon Dioxide BUN Creatinine Glucose POC Glucose 163 H 147 H 263 H Calcium Magnesium AST Total Creatine Kinase CK-MB (CK-2) Troponin T NT-Pro-B Natriuret Pep Total Protein Albumin HDL Cholesterol 01/24/19 01/24/19 01/24/19 17:46 23:07 Unknown WBC RBC 2.90 L Hgb 8.3 L Hct 25.0 L MCV RDW Plt Count Lymph % (Auto) [place] % (Auto) Lymph # Seg Neutrophils % Seg Neuts % (Manual) Lymphocytes % (Manual) Seg Neutrophils # Seg Neutrophils # Man Lymphocytes # (Manual) PT INR POC ABG pH POC ABG pCO2 POC ABG pO2 Sodium Potassium Chloride Carbon Dioxide BUN Creatinine Glucose POC Glucose 161 H 167 H Calcium Magnesium AST Total Creatine Kinase CK-MB (CK-2) Troponin T NT-Pro-B Natriuret Pep Total Protein Albumin HDL Cholesterol 01/24/19 01/25/19 01/25/19 Unknown 05:15 05:15 WBC RBC 2.90 L Hgb 8.4 L Hct 25.2 L MCV RDW Plt Count Lymph % (Auto) [place] % (Auto) Lymph # Seg Neutrophils % Seg Neuts % (Manual) Lymphocytes % (Manual) Seg Neutrophils # Seg Neutrophils # Man Lymphocytes # (Manual) PT INR POC ABG pH POC ABG pCO2 POC ABG pO2 Sodium 134 L 135 L Potassium Chloride 94.4 L 94.0 L Carbon Dioxide BUN 35 H 35 H Creatinine Glucose 151 H 128 H POC Glucose Calcium Magnesium AST Total Creatine Kinase CK-MB (CK-2) Troponin T NT-Pro-B Natriuret Pep Total Protein Albumin HDL Cholesterol 01/25/19 01/25/19 01/25/19 05:15 05:35 11:09 WBC RBC Hgb Hct MCV RDW Plt Count Lymph % (Auto) [place] % (Auto) Lymph # Seg Neutrophils % Seg Neuts % (Manual) Lymphocytes % (Manual) Seg Neutrophils # Seg Neutrophils # Man Lymphocytes # (Manual) PT 18.8 H INR 1.47 H POC ABG pH POC ABG pCO2 POC ABG pO2 Sodium Potassium Chloride Carbon Dioxide BUN Creatinine Glucose POC Glucose 126 H 149 H Calcium Magnesium AST Total Creatine Kinase CK-MB (CK-2) Troponin T NT-Pro-B Natriuret Pep Total Protein Albumin HDL Cholesterol 01/25/19 01/25/19 01/26/19 17:24 23:41 00:09 WBC RBC Hgb Hct MCV RDW Plt Count Lymph % (Auto) [place] % (Auto) Lymph # Seg Neutrophils % Seg Neuts % (Manual) Lymphocytes % (Manual) Seg Neutrophils # Seg Neutrophils # Man Lymphocytes # (Manual) PT INR POC ABG pH POC ABG pCO2 POC ABG pO2 Sodium Potassium Chloride Carbon Dioxide BUN Creatinine Glucose POC Glucose 140 H 142 H 156 H Calcium Magnesium AST Total Creatine Kinase CK-MB (CK-2) Troponin T NT-Pro-B Natriuret Pep Total Protein Albumin HDL Cholesterol 01/26/19 01/26/19 01/26/19 05:05 06:35 06:35 WBC RBC 2.83 L Hgb 8.1 L Hct 24.4 L MCV RDW Plt Count Lymph % (Auto) [place] % (Auto) Lymph # Seg Neutrophils % Seg Neuts % (Manual) Lymphocytes % (Manual) Seg Neutrophils # Seg Neutrophils # Man Lymphocytes # (Manual) PT INR POC ABG pH POC ABG pCO2 POC ABG pO2 Sodium Potassium Chloride 96.9 L Carbon Dioxide BUN 29 H Creatinine Glucose 141 H POC Glucose 159 H Calcium 8.3 L Magnesium AST Total Creatine Kinase CK-MB (CK-2) Troponin T NT-Pro-B Natriuret Pep Total Protein Albumin HDL Cholesterol 01/26/19 01/26/19 01/27/19 13:16 19:10 00:08 WBC RBC Hgb Hct MCV RDW Plt Count Lymph % (Auto) [place] % (Auto) Lymph # Seg Neutrophils % Seg Neuts % (Manual) Lymphocytes % (Manual) Seg Neutrophils # Seg Neutrophils # Man Lymphocytes # (Manual) PT INR POC ABG pH POC ABG pCO2 POC ABG pO2 Sodium Potassium Chloride Carbon Dioxide BUN Creatinine Glucose POC Glucose 159 H 146 H 140 H Calcium Magnesium AST Total Creatine Kinase CK-MB (CK-2) Troponin T NT-Pro-B Natriuret Pep Total Protein Albumin HDL Cholesterol 01/27/19 01/27/19 01/27/19 03:30 03:30 06:23 WBC RBC 2.85 L Hgb 8.3 L Hct 24.8 L MCV RDW Plt Count Lymph % (Auto) [place] % (Auto) Lymph # Seg Neutrophils % Seg Neuts % (Manual) Lymphocytes % (Manual) Seg Neutrophils # Seg Neutrophils # Man Lymphocytes # (Manual) PT INR POC ABG pH POC ABG pCO2 POC ABG pO2 Sodium 136 L Potassium Chloride 97.1 L Carbon Dioxide BUN 26 H Creatinine Glucose 129 H POC Glucose 154 H Calcium Magnesium AST Total Creatine Kinase CK-MB (CK-2) Troponin T NT-Pro-B Natriuret Pep Total Protein Albumin HDL Cholesterol 01/27/19 01/27/19 01/27/19 12:47 17:43 23:31 WBC RBC Hgb Hct MCV RDW Plt Count Lymph % (Auto) [place] % (Auto) Lymph # Seg Neutrophils % Seg Neuts % (Manual) Lymphocytes % (Manual) Seg Neutrophils # Seg Neutrophils # Man Lymphocytes # (Manual) PT INR POC ABG pH POC ABG pCO2 POC ABG pO2 Sodium Potassium Chloride Carbon Dioxide BUN Creatinine Glucose POC Glucose 159 H 180 H 164 H Calcium Magnesium AST Total Creatine Kinase CK-MB (CK-2) Troponin T NT-Pro-B Natriuret Pep Total Protein Albumin HDL Cholesterol 01/28/19 01/28/19 01/28/19 04:35 12:01 12:01 WBC RBC 2.67 L Hgb 7.9 L Hct 22.9 L MCV RDW Plt Count Lymph % (Auto) [place] % (Auto) Lymph # Seg Neutrophils % Seg Neuts % (Manual) Lymphocytes % (Manual) Seg Neutrophils # Seg Neutrophils # Man Lymphocytes # (Manual) PT INR POC ABG pH POC ABG pCO2 POC ABG pO2 Sodium 136 L Potassium 3.5 L Chloride Carbon Dioxide BUN 18 H Creatinine Glucose 143 H POC Glucose 139 H Calcium 8.0 L Magnesium AST Total Creatine Kinase CK-MB (CK-2) Troponin T NT-Pro-B Natriuret Pep Total Protein Albumin HDL Cholesterol 01/28/19 01/28/19 01/28/19 12:04 16:59 17:11 WBC RBC Hgb Hct MCV RDW Plt Count Lymph % (Auto) [place] % (Auto) Lymph # Seg Neutrophils % Seg Neuts % (Manual) Lymphocytes % (Manual) Seg Neutrophils # Seg Neutrophils # Man Lymphocytes # (Manual) PT INR POC ABG pH 7.488 H POC ABG pCO2 34.1 L POC ABG pO2 Sodium Potassium Chloride Carbon Dioxide BUN Creatinine Glucose POC Glucose 143 H 163 H Calcium Magnesium AST Total Creatine Kinase CK-MB (CK-2) Troponin T NT-Pro-B Natriuret Pep Total Protein Albumin HDL Cholesterol 01/29/19 01/29/19 01/29/19 00:10 05:47 12:08 WBC RBC Hgb Hct MCV RDW Plt Count Lymph % (Auto) [place] % (Auto) Lymph # Seg Neutrophils % Seg Neuts % (Manual) Lymphocytes % (Manual) Seg Neutrophils # Seg Neutrophils # Man Lymphocytes # (Manual) PT INR POC ABG pH POC ABG pCO2 POC ABG pO2 Sodium Potassium Chloride Carbon Dioxide BUN Creatinine Glucose POC Glucose 171 H 187 H 137 H Calcium Magnesium AST Total Creatine Kinase CK-MB (CK-2) Troponin T NT-Pro-B Natriuret Pep Total Protein Albumin HDL Cholesterol 01/29/19 01/29/19 01/29/19 16:48 16:54 17:47 WBC RBC Hgb Hct MCV RDW Plt Count Lymph % (Auto) [place] % (Auto) Lymph # Seg Neutrophils % Seg Neuts % (Manual) Lymphocytes % (Manual) Seg Neutrophils # Seg Neutrophils # Man Lymphocytes # (Manual) PT INR POC ABG pH 7.486 H 7.512 H POC ABG pCO2 32.8 L 32.7 L POC ABG pO2 108 H Sodium Potassium Chloride Carbon Dioxide BUN Creatinine Glucose POC Glucose 156 H Calcium Magnesium AST Total Creatine Kinase CK-MB (CK-2) Troponin T NT-Pro-B Natriuret Pep Total Protein Albumin HDL Cholesterol 01/29/19 01/30/19 01/30/19 23:48 06:45 07:18 WBC RBC 2.94 L Hgb 8.6 L Hct 25.7 L MCV RDW Plt Count Lymph % (Auto) [place] % (Auto) Lymph # Seg Neutrophils % Seg Neuts % (Manual) Lymphocytes % (Manual) Seg Neutrophils # Seg Neutrophils # Man Lymphocytes # (Manual) PT INR POC ABG pH POC ABG pCO2 POC ABG pO2 Sodium 135 L Potassium Chloride Carbon Dioxide BUN Creatinine Glucose 141 H POC Glucose 185 H Calcium 8.3 L Magnesium AST Total Creatine Kinase CK-MB (CK-2) Troponin T NT-Pro-B Natriuret Pep Total Protein Albumin HDL Cholesterol 01/30/19 01/30/19 01/30/19 11:17 16:47 18:16 WBC RBC Hgb Hct MCV RDW Plt Count Lymph % (Auto) [place] % (Auto) Lymph # Seg Neutrophils % Seg Neuts % (Manual) Lymphocytes % (Manual) Seg Neutrophils # Seg Neutrophils # Man Lymphocytes # (Manual) PT INR POC ABG pH 7.508 H POC ABG pCO2 31.5 L POC ABG pO2 135 H Sodium Potassium Chloride Carbon Dioxide BUN Creatinine Glucose POC Glucose 170 H 108 H Calcium Magnesium AST Total Creatine Kinase CK-MB (CK-2) Troponin T NT-Pro-B Natriuret Pep Total Protein Albumin HDL Cholesterol 01/30/19 01/31/19 01/31/19 23:38 05:45 12:04 WBC RBC Hgb Hct MCV RDW Plt Count Lymph % (Auto) [place] % (Auto) Lymph # Seg Neutrophils % Seg Neuts % (Manual) Lymphocytes % (Manual) Seg Neutrophils # Seg Neutrophils # Man Lymphocytes # (Manual) PT INR POC ABG pH POC ABG pCO2 POC ABG pO2 Sodium Potassium Chloride Carbon Dioxide BUN Creatinine Glucose POC Glucose 146 H 121 H 152 H Calcium Magnesium AST Total Creatine Kinase CK-MB (CK-2) Troponin T NT-Pro-B Natriuret Pep Total Protein Albumin HDL Cholesterol 01/31/19 01/31/19 02/01/19 17:44 23:58 05:46 WBC RBC Hgb Hct MCV RDW Plt Count Lymph % (Auto) [place] % (Auto) Lymph # Seg Neutrophils % Seg Neuts % (Manual) Lymphocytes % (Manual) Seg Neutrophils # Seg Neutrophils # Man Lymphocytes # (Manual) PT INR POC ABG pH POC ABG pCO2 POC ABG pO2 Sodium Potassium Chloride Carbon Dioxide BUN Creatinine Glucose POC Glucose 153 H 183 H 116 H Calcium Magnesium AST Total Creatine Kinase CK-MB (CK-2) Troponin T NT-Pro-B Natriuret Pep Total Protein Albumin HDL Cholesterol 02/01/19 02/01/19 02/01/19 11:10 12:18 17:48 WBC RBC Hgb Hct MCV RDW Plt Count Lymph % (Auto) [place] % (Auto) Lymph # Seg Neutrophils % Seg Neuts % (Manual) Lymphocytes % (Manual) Seg Neutrophils # Seg Neutrophils # Man Lymphocytes # (Manual) PT INR POC ABG pH POC ABG pCO2 POC ABG pO2 Sodium 133 L Potassium 3.3 L Chloride 96.1 L Carbon Dioxide BUN Creatinine Glucose 145 H POC Glucose 175 H 129 H Calcium 8.3 L Magnesium AST Total Creatine Kinase CK-MB (CK-2) Troponin T NT-Pro-B Natriuret Pep Total Protein Albumin HDL Cholesterol 02/01/19 02/02/19 02/02/19 23:13 05:16 06:00 WBC RBC Hgb Hct MCV RDW Plt Count Lymph % (Auto) [place] % (Auto) Lymph # Seg Neutrophils % Seg Neuts % (Manual) Lymphocytes % (Manual) Seg Neutrophils # Seg Neutrophils # Man Lymphocytes # (Manual) PT INR POC ABG pH POC ABG pCO2 POC ABG pO2 Sodium 135 L Potassium Chloride Carbon Dioxide BUN 18 H Creatinine Glucose 121 H POC Glucose 143 H 140 H Calcium 8.3 L Magnesium 1.60 L AST Total Creatine Kinase CK-MB (CK-2) Troponin T NT-Pro-B Natriuret Pep Total Protein Albumin HDL Cholesterol 02/02/19 02/02/19 02/02/19 12:06 18:23 23:45 WBC RBC Hgb Hct MCV RDW Plt Count Lymph % (Auto) [place] % (Auto) Lymph # Seg Neutrophils % Seg Neuts % (Manual) Lymphocytes % (Manual) Seg Neutrophils # Seg Neutrophils # Man Lymphocytes # (Manual) PT INR POC ABG pH POC ABG pCO2 POC ABG pO2 Sodium Potassium Chloride Carbon Dioxide BUN Creatinine Glucose POC Glucose 156 H 159 H 139 H Calcium Magnesium AST Total Creatine Kinase CK-MB (CK-2) Troponin T NT-Pro-B Natriuret Pep Total Protein Albumin HDL Cholesterol 02/03/19 02/03/19 02/03/19 05:19 12:02 17:24 WBC RBC Hgb Hct MCV RDW Plt Count Lymph % (Auto) [place] % (Auto) Lymph # Seg Neutrophils % Seg Neuts % (Manual) Lymphocytes % (Manual) Seg Neutrophils # Seg Neutrophils # Man Lymphocytes # (Manual) PT INR POC ABG pH POC ABG pCO2 POC ABG pO2 Sodium Potassium Chloride Carbon Dioxide BUN Creatinine Glucose POC Glucose 147 H 163 H 144 H Calcium Magnesium AST Total Creatine Kinase CK-MB (CK-2) Troponin T NT-Pro-B Natriuret Pep Total Protein Albumin HDL Cholesterol 02/03/19 02/04/19 02/04/19 23:43 05:30 11:14 WBC RBC 3.00 L Hgb 8.7 L Hct 25.9 L MCV RDW Plt Count Lymph % (Auto) 11.5 L [place] % (Auto) 7.5 H Lymph # 0.8 L Seg Neutrophils % 79.6 H Seg Neuts % (Manual) Lymphocytes % (Manual) Seg Neutrophils # Seg Neutrophils # Man Lymphocytes # (Manual) PT INR POC ABG pH POC ABG pCO2 POC ABG pO2 Sodium Potassium Chloride Carbon Dioxide BUN Creatinine Glucose POC Glucose 131 H 145 H Calcium Magnesium AST Total Creatine Kinase CK-MB (CK-2) Troponin T NT-Pro-B Natriuret Pep Total Protein Albumin HDL Cholesterol 02/04/19 02/04/19 02/04/19 11:14 12:09 17:37 WBC RBC Hgb Hct MCV RDW Plt Count Lymph % (Auto) [place] % (Auto) Lymph # Seg Neutrophils % Seg Neuts % (Manual) Lymphocytes % (Manual) Seg Neutrophils # Seg Neutrophils # Man Lymphocytes # (Manual) PT INR POC ABG pH POC ABG pCO2 POC ABG pO2 Sodium Potassium Chloride 96.5 L Carbon Dioxide BUN 30 H Creatinine Glucose 142 H POC Glucose 149 H 170 H Calcium Magnesium AST Total Creatine Kinase CK-MB (CK-2) Troponin T NT-Pro-B Natriuret Pep Total Protein Albumin HDL Cholesterol 02/04/19 02/05/19 02/05/19 23:33 04:27 04:27 WBC RBC 3.61 L Hgb Hct MCV RDW Plt Count Lymph % (Auto) 12.3 L Ocean % (Auto) Lymph # 0.9 L Seg Neutrophils % 79.1 H Seg Neuts % (Manual) Lymphocytes % (Manual) Seg Neutrophils # Seg Neutrophils # Man Lymphocytes # (Manual) PT INR POC ABG pH POC ABG pCO2 POC ABG pO2 Sodium Potassium Chloride 96.0 L Carbon Dioxide BUN 26 H Creatinine Glucose 118 H POC Glucose 182 H Calcium Magnesium AST Total Creatine Kinase CK-MB (CK-2) Troponin T NT-Pro-B Natriuret Pep Total Protein Albumin HDL Cholesterol 02/05/19 02/05/19 02/05/19 05:51 12:37 23:56 WBC RBC Hgb Hct MCV RDW Plt Count Lymph % (Auto) Ocean % (Auto) Lymph # Seg Neutrophils % Seg Neuts % (Manual) Lymphocytes % (Manual) Seg Neutrophils # Seg Neutrophils # Man Lymphocytes # (Manual) PT INR POC ABG pH POC ABG pCO2 POC ABG pO2 Sodium Potassium Chloride Carbon Dioxide BUN Creatinine Glucose POC Glucose 162 H 147 H 167 H Calcium Magnesium AST Total Creatine Kinase CK-MB (CK-2) Troponin T NT-Pro-B Natriuret Pep Total Protein Albumin HDL Cholesterol 02/06/19 02/06/19 05:33 12:02 WBC RBC Hgb Hct MCV RDW Plt Count Lymph % (Auto) [place] % (Auto) Lymph # Seg Neutrophils % Seg Neuts % (Manual) Lymphocytes % (Manual) Seg Neutrophils # Seg Neutrophils # Man Lymphocytes # (Manual) PT INR POC ABG pH POC ABG pCO2 POC ABG pO2 Sodium Potassium Chloride Carbon Dioxide BUN Creatinine Glucose POC Glucose 124 H 156 H Calcium Magnesium AST Total Creatine Kinase CK-MB (CK-2) Troponin T NT-Pro-B Natriuret Pep Total Protein Albumin HDL Cholesterol
[2019-02-07] MEDS: HumaLOG SUB-Q SCH ×4 (00:26→19:03)
[2019-02-07] MEDS: DUONEB *Not for PRN Use IH SCH ×4 (01:35→20:05)
[2019-02-07] MEDS: LASIX PO SCH ×2 (05:42→18:07)
[2019-02-07] MEDS: SODIUM CHLORIDE FLUSH SYRINGE 10 ML IV PRN (05:42)
[2019-02-07] MEDS: REGLAN IV SCH ×3 (05:42→22:04)
[2019-02-07] MEDS: KEPPRA PO SCH ×2 (10:51→22:03)
[2019-02-07] MEDS: LOVENOX SUB-Q SCH (10:51)
[2019-02-07] MEDS: BABY ASPIRIN PO SCH (10:51)
[2019-02-07] MEDS: NORVASC PO SCH (10:51)
[2019-02-07] MEDS: COREG PO SCH ×2 (10:51→22:05)
[2019-02-07] MEDS: PREVACID SOLUTAB FEEDTUBE SCH ×2 (10:51→22:04)
[2019-02-07] MEDS: KENALOG TP SCH ×2 (10:52→22:06)
[2019-02-07] MEDS: SODIUM CHLORIDE FLUSH SYRINGE 10 ML IV SCH ×2 (10:52→22:04)
--- NOTE | 2019-02-07 13:28 | Progress Note ---
Assessment and Plan Assessment and plan: Patient is 73 yo woman with a history of hypertension, CAD s/p stent and COPD/emphesema, not on home Oxygen who presented to [facility] ED on 01/15/2019 after cardiac arrest. How long she was unresponsive/without oxygen is unknown. She was in PEA, given 2 rounds of IV Epinephrine, CPR, intubated , resuscitated, and brought to ED. She had seizures later same day, was started on keppra. She had CARMELINA on presentation, resolved in few days. She remained comatose, acute respiratory failure vent dependent. Trach and PEG was recommended. Tracheostomy done 01/25. PEG not done yet because of abdominal distension and poor light translumination. She has poor prognosis and may need LTAC Oropharyngeal dysphagia. PEG tube pending Anoxic encephalopathy, severe irreversible brain damage: EEG 01/17/19 reported as abnormal with minimal brain activity. No epileptiform discharges. Neurology following, supportive care Cardiopulmonary arrest. Patient with out of hospital PEA arrest and ROSC. Cardiology following. Acute hypoxemic hypercapnic respiratory failure. Patient previously on mechanical ventilation but has been weaned. Continue TP trials. Continue trach care. Aspiration pneumonia. Completed treatment Aspiration precautions. Sepsis, poa. Complete Pneumonia treatment ID following. Acute renal failure, tubular necrosis and vasomotor nephropathy, poa. resolved, Etiology likely secondary to acute kidney injury from sepsis. Creatinine is stable. Continue to monitor. Pulmonary hypertension. Occupational Therapist Assistants following Acute systolic heart failure. Patient with moderate global hypokinesis of left ventricle EF 35-40% and left ventricular systolic function moderately decreased. Cardiology following CAD s/p stent placement, She goes to software quality assurance specialist at [place] Sacral decubitus, stage 3; continue wound care, decline to place a cooper, continue to use Purex catheter Disposition: continue inpatient care, Patient transferred to the floor Tuesday, LTAC after PEG tube placement Discussed with granddaughter Julia at bedside History Interval history: Patient was seen and examined. Follow-up on current diagnosis of Cardiac arrest. No overnight events reported to me. Patient nonverbal. Imaging, nursing note, chart, labs and old chart reviewed. Hospitalist Physical - Physical exam Narrative exam: Gen: ill appearing, cachetic, unresponsive, comatose HEENT: NCAT, trach in place Neck: supple, no adenopathy, no thyromegaly, no JVD CVS/Heart: RRR, normal S1S2, pulses present bilaterally Chest/Lungs: diminished bs bilateral, Symmetrical chest expansion, good air entry bilaterally GI/Abdomen: soft, NTND, good bowel sounds, no guarding or rebound Extermity/Skin: no obvious rash MSK: unresponsive Neuro: unresponsive Psych: unresponsive - Constitutional Vitals: Temp Pulse Resp BP Pulse Ox 98.0 F 104 H 14 140/83 97 02/07/19 11:20 02/07/19 11:20 02/07/19 11:20 02/07/19 11:20 02/07/19 11:20 General appearance: Present: other (trached, nonresponsive at time of examination) Results - Labs CBC & Chem 7: 02/05/19 04:27 02/05/19 04:27 Labs: Laboratory Last Values WBC 7.7 K/mm3 (4.5-11.0) 02/05/19 04:27 RBC 3.61 M/mm3 (3.65-5.03) L 02/05/19 04:27 Hgb 10.3 gm/dl (10.1-14.3) 02/05/19 04:27 Hct 31.7 % (30.3-42.9) 02/05/19 04:27 MCV 88 fl (79-97) 02/05/19 04:27 MCH 29 pg (28-32) 02/05/19 04:27 MCHC 33 % (30-34) 02/05/19 04:27 RDW 14.7 % (13.2-15.2) 02/05/19 04:27 Plt Count 250 K/mm3 (140-440) 02/05/19 04:27 Lymph % (Auto) 12.3 % (13.4-35.0) L 02/05/19 04:27 Orange % (Auto) 7.1 % (0.0-7.3) 02/05/19 04:27 Eos % (Auto) 1.1 % (0.0-4.3) 02/05/19 04:27 Baso % (Auto) 0.4 % (0.0-1.8) 02/05/19 04:27 Lymph # 0.9 K/mm3 (1.2-5.4) L 02/05/19 04:27 Orange # 0.5 K/mm3 (0.0-0.8) 02/05/19 04:27 Eos # 0.1 K/mm3 (0.0-0.4) 02/05/19 04:27 Baso # 0.0 K/mm3 (0.0-0.1) 02/05/19 04:27 Add Manual Diff Complete 01/16/19 04:16 Total Counted 100 01/16/19 04:16 Seg Neutrophils % 79.1 % (40.0-70.0) H 02/05/19 04:27 Seg Neuts % (Manual) 74.0 % (40.0-70.0) H 01/16/19 04:16 22.0 % 01/16/19 04:16 2.0 % (13.4-35.0) L 01/16/19 04:16 Reactive Lymphs % (Man) 0 % 01/16/19 04:16 2.0 % (0.0-7.3) 01/16/19 04:16 0 % (0.0-4.3) 01/16/19 04:16 0 % (0.0-1.8) 01/16/19 04:16 0 % 01/16/19 04:16 0 % 01/16/19 04:16 0 % 01/16/19 04:16 0 % 01/16/19 04:16 Nucleated RBC % Not Reportable 01/16/19 04:16 Seg Neutrophils # 6.1 K/mm3 (1.8-7.7) 02/05/19 04:27 Seg Neutrophils # Man 8.4 K/mm3 (1.8-7.7) H 01/16/19 04:16 Band Neutrophils # 2.5 K/mm3 01/16/19 04:16 0.2 K/mm3 (1.2-5.4) L 01/16/19 04:16 Abs React Lymphs (Man) 0.0 K/mm3 01/16/19 04:16 0.2 K/mm3 (0.0-0.8) 01/16/19 04:16 0.0 K/mm3 (0.0-0.4) 01/16/19 04:16 0.0 K/mm3 (0.0-0.1) 01/16/19 04:16 0.0 K/mm3 01/16/19 04:16 0.0 K/mm3 01/16/19 04:16 0.0 K/mm3 01/16/19 04:16 Blast Cells # 0.0 K/mm3 01/16/19 04:16 WBC Morphology Not Reportable 01/16/19 04:16 Hypersegmented Neuts Not Reportable 01/16/19 04:16 Hyposegmented Neuts Not Reportable 01/16/19 04:16 Hypogranular Neuts Not Reportable 01/16/19 04:16 Not Reportable 01/16/19 04:16 Not Reportable 01/16/19 04:16 Not Reportable 01/16/19 04:16 Not Reportable 01/16/19 04:16 Not Reportable 01/16/19 04:16 Not Reportable 01/16/19 04:16 Consistent w auto 01/16/19 04:16 Not Reportable 01/16/19 04:16 Plt Clumps, EDTA Not Reportable 01/16/19 04:16 Not Reportable 01/16/19 04:16 Not Reportable 01/16/19 04:16 Not Reportable 01/16/19 04:16 Plt Morphology Comment Not Reportable 01/16/19 04:16 RBC Morphology Normal 01/16/19 04:16 Dimorphic RBCs Not Reportable 01/16/19 04:16 Not Reportable 01/16/19 04:16 Not Reportable 01/16/19 04:16 Not Reportable 01/16/19 04:16 Not Reportable 01/16/19 04:16 Not Reportable 01/16/19 04:16 Not Reportable 01/16/19 04:16 Not Reportable 01/16/19 04:16 Not Reportable 01/16/19 04:16 Not Reportable 01/16/19 04:16 Not Reportable 01/16/19 04:16 Not Reportable 01/16/19 04:16 Not Reportable 01/16/19 04:16 Not Reportable 01/16/19 04:16 Not Reportable 01/16/19 04:16 Not Reportable 01/16/19 04:16 Not Reportable 01/16/19 04:16 Not Reportable 01/16/19 04:16 Not Reportable 01/16/19 04:16 Not Reportable 01/16/19 04:16 Acanthocytes (Spur) Not Reportable 01/16/19 04:16 Rouleaux Not Reportable 01/16/19 04:16 Not Reportable 01/16/19 04:16 Not Reportable 01/16/19 04:16 Not Reportable 01/16/19 04:16 Not Reportable 01/16/19 04:16 Hem Pathologist Commnt No 01/16/19 04:16 PT 18.8 Sec. (12.2-14.9) H 01/25/19 05:15 INR 1.47 (0.87-1.13) H 01/25/19 05:15 APTT 36.0 Sec. (24.2-36.6) 01/15/19 07:50 Heparin Anti-Xa, Unfract Negative (Negative) 01/19/19 Unknown POC ABG pH 7.508 (7.35-7.45) H 01/30/19 16:47 POC ABG pCO2 31.5 (35-45) L 01/30/19 16:47 POC ABG pO2 135 (80-105) H 01/30/19 16:47 POC ABG HCO3 25.0 (22-26 mml/L) 01/30/19 16:47 POC ABG Total CO2 26 (23-27mmol/L) 01/30/19 16:47 POC ABG O2 Sat 99 01/30/19 16:47 POC ABG Base Excess 2 ((-2) - (+3)mmol/L) 01/30/19 16:47 28 % 01/30/19 16:47 Sodium 138 mmol/L (137-145) 02/05/19 04:27 Potassium 4.4 mmol/L (3.6-5.0) 02/05/19 04:27 Chloride 96.0 mmol/L (98-107) L 02/05/19 04:27 Carbon Dioxide 28 mmol/L (22-30) 02/05/19 04:27 18 mmol/L 02/05/19 04:27 BUN 26 mg/dL (7-17) H 02/05/19 04:27 0.7 mg/dL (0.7-1.2) 02/05/19 04:27 Estimated GFR > 60 ml/min 02/05/19 04:27 37 % 02/05/19 04:27 Glucose 118 mg/dL (65-100) H 02/05/19 04:27 POC Glucose 200 (70-105) H 02/07/19 11:28 6.0 % (4-6) 01/15/19 11:53 Calcium 9.5 mg/dL (8.4-10.2) 02/05/19 04:27 Phosphorus 3.10 mg/dL (2.5-4.5) 02/02/19 06:00 Magnesium 1.60 mg/dL (1.7-2.3) L 02/02/19 06:00 0.30 mg/dL (0.1-1.2) 01/23/19 Unknown AST 88 units/L (5-40) H 01/23/19 Unknown ALT 31 units/L (7-56) 01/23/19 Unknown 48 units/L (35-129) 01/23/19 Unknown 1430 units/L (30-135) H 01/15/19 17:52 CK-MB (CK-2) 13.5 ng/mL (0.0-4.0) H 01/15/19 17:52 CK-MB (CK-2) Rel Index 0.9 (0-4) 01/15/19 17:52 0.036 ng/mL (0.00-0.029) H D 01/15/19 17:52 NT-Pro-B Natriuret Pep 5346 pg/mL (0-900) H 01/15/19 07:50 6.0 g/dL (6.3-8.2) L 01/23/19 Unknown 2.9 g/dL (3.9-5) L 01/23/19 Unknown 0.9 % 01/23/19 Unknown Triglycerides 75 mg/dL (2-149) 01/15/19 17:52 Cholesterol 149 mg/dL (50-199) 01/15/19 17:52 84 mg/dL (50-130) 01/15/19 17:52 65 mg/dL (40-59) H 01/15/19 17:52 2.29 % 01/15/19 17:52 See scanned report 01/19/19 Unknown Yellow (Yellow) 01/21/19 16:10 Clear (Clear) 01/21/19 16:10 6.0 (5.0-7.0) 01/21/19 16:10 Ur Specific [place] 1.015 (1.003-1.030) 01/21/19 16:10 <15 mg/dl mg/dL (Negative) 01/21/19 16:10 Neg mg/dL (Negative) 01/21/19 16:10 Neg mg/dL (Negative) 01/21/19 16:10 Neg (Negative) 01/21/19 16:10 Neg (Negative) 01/21/19 16:10 Neg (Negative) 01/21/19 16:10 2.0 mg/dL (<2.0) 01/21/19 16:10 Ur Leukocyte Esterase Neg (Negative) 01/21/19 16:10 1.0 /HPF (0.0-6.0) 01/21/19 16:10 5.0 /HPF (0.0-6.0) 01/21/19 16:10 Presumptive negative 01/15/19 16:30 Presumptive negative 01/15/19 16:30 Ur Barbiturates Screen Presumptive negative 01/15/19 16:30 Ur Phencyclidine Scrn Presumptive negative 01/15/19 16:30 Ur Amphetamines Screen Presumptive negative 01/15/19 16:30 U Benzodiazepines Scrn Presumptive negative 01/15/19 16:30 Presumptive negative 01/15/19 16:30 U Marijuana (THC) Screen Presumptive negative 01/15/19 16:30 Disclamer 01/15/19 16:30 Heparin-induced Plt Ab Negative (Negative) 01/19/19 Unknown UF Heparin High Dose 3 % Release 01/19/19 Unknown JOSEFA UFH Low Dose 0.1 4 % Release 01/19/19 Unknown JOSEFA UFH Low Dose 0.5 5 % Release 01/19/19 Unknown C. difficile Tox (PCR) Negative (Negative) 01/16/19 00:00 Active Medications - Current Medications Current Medications: Generic Name Dose Route Start Last Admin Trade Name Freq PRN Reason Stop Dose Admin Acetaminophen 650 mg 01/16/19 09:37 01/20/19 00:24 Tylenol PO 650 mg Q4H PRN Administration Fever >101 Albuterol/Ipratropium 1 ampul 01/15/19 14:00 02/07/19 07:28 Duoneb *Not For Prn Use* IH 1 ampul Q6HRT DEON Administration Amlodipine Besylate 10 mg 01/24/19 12:00 02/07/19 10:51 Norvasc PO 10 mg DAILY DEON Administration Lipase/Protease/Amylase 1 each 02/02/19 14:21 Pancredelia Siddiqui 10,500 Unit FEEDTUBE PRN PRN For Clogged Feeding Tube Aspirin 81 mg 01/16/19 10:00 02/07/19 10:51 Baby Aspirin PO 81 mg QDAY DEON Administration Atorvastatin Calcium 20 mg 01/16/19 22:00 02/06/19 21:53 Lipitor PO 20 mg QHS DEON Administration Carvedilol 12.5 mg 01/24/19 22:00 02/07/19 10:51 Coreg PO 12.5 mg BID DEON Administration Enoxaparin Sodium 40 mg 01/30/19 10:00 02/07/19 10:51 Lovenox SUB-Q 40 mg QDAY@1000 DEON Administration Furosemide 20 mg 01/19/19 18:00 02/07/19 05:42 Lasix PO 20 mg 0600,1800 DEON Administration Insulin Human Lispro 0 unit 01/22/19 14:00 02/07/19 05:53 Humalog SUB-Q 2 unit Q6HR DEON Administration Protocol Lansoprazole 30 mg 01/30/19 10:00 02/07/19 10:51 Prevacid Solutab FEEDTUBE 30 mg BID DEON Administration Levetiracetam 750 mg 01/18/19 10:00 02/07/19 10:51 Keppra PO 750 mg BID DEON Administration Metoclopramide HCl 10 mg 02/01/19 14:00 02/07/19 05:42 Reglan IV 10 mg Q8HR DEON Administration Simple Syrup 15 ml 02/02/19 14:21 Simple Syrup FEEDTUBE PRN PRN Hypoglycemia Simple Syrup 30 ml 02/02/19 14:21 Simple Syrup FEEDTUBE PRN PRN Hypoglycemia Sodium Bicarbonate 325 mg 02/02/19 14:21 Sodium Bicarbonate FEEDTUBE PRN PRN For Clogged Feeding Tube Sodium Chloride 10 ml 01/15/19 22:00 02/07/19 10:52 Sodium Chloride Flush Syringe 10 Ml IV 10 ml BID DEON Administration Sodium Chloride 10 ml 01/15/19 10:34 02/07/19 05:42 Sodium Chloride Flush Syringe 10 Ml IV 10 ml PRN PRN Administration LINE FLUSH Triamcinolone Acetonide 1 applic 01/24/19 14:00 02/07/19 10:52 Kenalog TP 1 applic BID DEON Administration Nutrition/Malnutrition Assess - Dietary Evaluation Nutrition/Malnutrition Findings: Nutrition Notes Start: 01/15/19 14:28 Freq: Status: Active Protocol: Document 02/05/19 14:19 RM (Rec: 02/05/19 14:26 RM [id number]) Nutrition Notes Initial or Follow up Reassessment Current Diagnosis Acute Kidney Injury,Heart Failure,Respiratory Failure Other Pertinent Diagnosis dysphagia, s/p cardiorespiratory arrest (at home), Aspiration Pneu Current Diet Glucerna 1.2 at 50 ml/hr Labs/Tests Na 138 Pertinent Medications Lasix Height 5 ft 4 in Weight 47.7 kg [place] Body Weight (kg) 54.54 BMI 18.0 Subjective/Other Information Observed Glucerna 1.2 infusing at 50 ml/hr. Pt is tolerating TF per nurse. Percent of energy/protein needs met: 86%/100% Burn Absent Trauma Absent #1 Nutrition Diagnosis Inadequate oral intake Diagnosis Progress(for reassessment Continues documentation) Is patient on ventilator? No Is Patient Ambulatory and/or Out of Bed No REE-([facility]-confined to bed) 1155.024 Kcal/Kg value to use for calculation 35 Approximate Energy Requirements Using 1670 kcal/Kg Calculation Used for Recommendations Kcal/kg Additional Notes Pro needs 1-1.2g/k-57g/day Fluid needs 1ml/kcal Nutrition Intervention Nutrition Support: Glucerna 1.2 at 50ml/hr with 80ml water flush q4h. Kcal 1,440 Protein (gm) 72 Carbohydrates (gm) 137 Fluid (mL) 966 Fiber (gm) 19 Goal #1 Continue to meet at least 75% of calorie and protein needs via TF Goal #2 Wt maintenance and/or gain Follow-Up By: 02/13/19 Additional Comments Follow for TF tolerance
--- NOTE | 2019-02-07 14:42 | Event Note ---
Date: 02/07/19 Spoke with patient's granddaughter/POD Ms. Mason. She is agreeable to proceeding with surgical G tube placement. She understands the patient's risks for undergoing general anesthesia. Will contact OR to schedule procedure.
--- NOTE | 2019-02-07 19:20 | Progress Note ---
Assessment and Plan Patient resting on T Tube. FiO2 28%. O2 saturation 96%. Patient not responding to verbal stimuli. No acute respiratory distress. - Patient Problems (1) COPD (chronic obstructive pulmonary disease) with emphysema Current Visit: Yes Status: Acute Plan to address problem: 1. s/p tracheostomy on T tube FiO2 28% 2. Albuterol and atrovent aerosol treatment q6 hrs 3. Respiratory suctioning 4. Continue Lovenox 5. Patient is on Reglan (2) Acute respiratory failure with hypoxia Current Visit: Yes Status: Acute Plan to address problem: 1. s/p tracheostomy on T tube FiO2 28% 2. Albuterol and atrovent aerosol treatment q6 hrs 3. Respiratory suctioning 4. Continue Lovenox 5. Patient is on Reglan (3) Status post tracheostomy Current Visit: Yes Status: Acute Plan to address problem: Continue trach care. (4) Pulmonary infiltrates on CXR Current Visit: Yes Status: Acute Plan to address problem: Patient afebrile. No leukocytosis. Recommend respiratory suctioning. Continue aerosolized bronchodilators. If patient becomes febrile or develops leukocytosis recommend IV antibiotics. (5) CHF (congestive heart failure) Current Visit: Yes Status: Acute Plan to address problem: Management per cardiology. (6) Altered mental status Current Visit: Yes Status: Acute Plan to address problem: Management as per primary care. (7) CAD S/P percutaneous coronary angioplasty Current Visit: Yes Status: Chronic Plan to address problem: Managment per cardiology. (8) CKD (chronic kidney disease) Current Visit: Yes Status: Chronic Plan to address problem: Management per nephrology. Subjective Date of service: 02/07/19 Principal diagnosis: OOH cardiac arrest; Acute hypoxemic-hypercapnic Resp fail ure; PNA Interval history: Patient resting on T Tube. FiO2 28%. O2 saturation 96%. Patient not responding to verbal stimuli. No acute respiratory distress. Objective Vital Signs - 12hr 02/07/19 02/07/19 02/07/19 07:29 07:55 07:59 Temperature 97.7 F Pulse Rate 96 H Pulse Rate [ 96 H 95 H Anterior Bilateral Throughout] Respiratory 14 Rate Respiratory 16 18 Rate [Anterior Bilateral Throughout] Blood Pressure 114/68 O2 Sat by Pulse 94 Oximetry O2 Sat by Pulse Oximetry [ Assessment] 02/07/19 02/07/19 02/07/19 08:07 11:20 16:01 Temperature 98.0 F 98.7 F Pulse Rate 104 H 95 H Pulse Rate [ Anterior Bilateral Throughout] Respiratory 14 14 Rate Respiratory Rate [Anterior Bilateral Throughout] Blood Pressure 140/83 103/59 O2 Sat by Pulse 99 97 93 Oximetry O2 Sat by Pulse Oximetry [ Assessment] 02/07/19 02/07/19 02/07/19 16:25 16:33 16:35 Temperature Pulse Rate Pulse Rate [ 105 H 107 H Anterior Bilateral Throughout] Respiratory Rate Respiratory 18 18 Rate [Anterior Bilateral Throughout] Blood Pressure O2 Sat by Pulse Oximetry O2 Sat by Pulse 93 Oximetry [ Assessment] 02/07/19 17:40 Temperature Pulse Rate Pulse Rate [ Anterior Bilateral Throughout] Respiratory Rate Respiratory Rate [Anterior Bilateral Throughout] Blood Pressure O2 Sat by Pulse 96 Oximetry O2 Sat by Pulse Oximetry [ Assessment] Constitutional: no acute distress, asleep, other (elderly, atraumatic, normocephalic, chronically looking female) Eyes: non-icteric ENT: oropharynx moist, other (s/p tracheostomy) Neck: supple, no lymphadenopathy, no JVD Effort: normal Ascultation: Bilateral: diminished breath sounds, rales (bases), rhonchi (scant), other (coarse breath sound bilaterally upper lobes anteriorly) Percussion: Bilateral: not dull Cardiovascular: regular rate and rhythm, other (tacycardia, S1,S2, no murmurs, gallops or rubs) Gastrointestinal: normoactive bowel sounds, soft, non-tender, non-distended Integumentary: normal Extremities: no cyanosis, no edema, pulses normal, no ischemia or petechiae Neurologic: unable to assess Psychiatric: other (unable to assess secondary to mental status) CBC and BMP: 02/05/19 04:27 02/05/19 04:27 ABG, PT/INR, D-dimer: ABG POC ABG pH 7.508 (7.35-7.45) H 01/30/19 16:47 POC ABG pCO2 31.5 (35-45) L 01/30/19 16:47 POC ABG pO2 135 (80-105) H 01/30/19 16:47 POC ABG HCO3 25.0 (22-26 mml/L) 01/30/19 16:47 POC ABG Total CO2 26 (23-27mmol/L) 01/30/19 16:47 POC ABG O2 Sat 99 01/30/19 16:47 PT/INR, D-dimer PT 18.8 Sec. (12.2-14.9) H 01/25/19 05:15 INR 1.47 (0.87-1.13) H 01/25/19 05:15 Abnormal lab findings: Abnormal Labs 01/15/19 01/15/19 01/15/19 07:50 07:50 07:50 WBC RBC Hgb Hct MCV 99 H RDW 16.7 H Plt Count 122 L Lymph % (Auto) [place] % (Auto) Lymph # Seg Neutrophils % Seg Neuts % (Manual) Lymphocytes % (Manual) Seg Neutrophils # Seg Neutrophils # Man Lymphocytes # (Manual) PT 19.7 H INR 1.56 H POC ABG pH POC ABG pCO2 POC ABG pO2 Sodium Potassium Chloride Carbon Dioxide 11 L BUN Creatinine 1.4 H Glucose 268 H POC Glucose Calcium Magnesium AST 57 H Total Creatine Kinase CK-MB (CK-2) Troponin T NT-Pro-B Natriuret Pep 5346 H Total Protein Albumin 3.6 L HDL Cholesterol 01/15/19 01/15/19 01/15/19 09:56 11:53 17:52 WBC RBC Hgb Hct MCV RDW Plt Count Lymph % (Auto) [place] % (Auto) Lymph # Seg Neutrophils % Seg Neuts % (Manual) Lymphocytes % (Manual) Seg Neutrophils # Seg Neutrophils # Man Lymphocytes # (Manual) PT INR POC ABG pH 7.186 L POC ABG pCO2 46.4 H POC ABG pO2 Sodium Potassium Chloride Carbon Dioxide BUN Creatinine Glucose POC Glucose Calcium Magnesium AST Total Creatine Kinase 683 H 1430 H CK-MB (CK-2) 9.5 H 13.5 H Troponin T 0.036 H D NT-Pro-B Natriuret Pep Total Protein Albumin HDL Cholesterol 65 H 01/15/19 01/15/19 01/16/19 18:31 21:46 02:14 WBC RBC Hgb Hct MCV RDW Plt Count Lymph % (Auto) [place] % (Auto) Lymph # Seg Neutrophils % Seg Neuts % (Manual) Lymphocytes % (Manual) Seg Neutrophils # Seg Neutrophils # Man Lymphocytes # (Manual) PT INR POC ABG pH POC ABG pCO2 31.8 L POC ABG pO2 167 H Sodium Potassium Chloride Carbon Dioxide BUN Creatinine Glucose POC Glucose 134 H 136 H Calcium Magnesium AST Total Creatine Kinase CK-MB (CK-2) Troponin T NT-Pro-B Natriuret Pep Total Protein Albumin HDL Cholesterol 01/16/19 01/16/19 01/16/19 04:16 04:16 05:05 WBC 11.4 H RBC Hgb Hct MCV RDW Plt Count 105 L Lymph % (Auto) [place] % (Auto) Lymph # Seg Neutrophils % Seg Neuts % (Manual) 74.0 H Lymphocytes % (Manual) 2.0 L Seg Neutrophils # Seg Neutrophils # Man 8.4 H Lymphocytes # (Manual) 0.2 L PT INR POC ABG pH 7.458 H POC ABG pCO2 31.4 L POC ABG pO2 135 H Sodium Potassium 3.3 L Chloride Carbon Dioxide 21 L D BUN 24 H Creatinine 1.5 H Glucose 141 H POC Glucose Calcium 8.1 L Magnesium AST 71 H Total Creatine Kinase CK-MB (CK-2) Troponin T NT-Pro-B Natriuret Pep Total Protein 6.2 L Albumin 3.5 L HDL Cholesterol 01/16/19 01/16/19 01/16/19 05:24 13:42 21:08 WBC RBC Hgb Hct MCV RDW Plt Count Lymph % (Auto) [place] % (Auto) Lymph # Seg Neutrophils % Seg Neuts % (Manual) Lymphocytes % (Manual) Seg Neutrophils # Seg Neutrophils # Man Lymphocytes # (Manual) PT INR POC ABG pH POC ABG pCO2 POC ABG pO2 Sodium Potassium Chloride Carbon Dioxide BUN Creatinine Glucose POC Glucose 137 H 129 H 122 H Calcium Magnesium AST Total Creatine Kinase CK-MB (CK-2) Troponin T NT-Pro-B Natriuret Pep Total Protein Albumin HDL Cholesterol 01/17/19 01/17/19 01/17/19 02:18 04:23 05:13 WBC RBC Hgb Hct MCV RDW Plt Count Lymph % (Auto) [place] % (Auto) Lymph # Seg Neutrophils % Seg Neuts % (Manual) Lymphocytes % (Manual) Seg Neutrophils # Seg Neutrophils # Man Lymphocytes # (Manual) PT INR POC ABG pH 7.479 H POC ABG pCO2 30.0 L POC ABG pO2 141 H Sodium Potassium Chloride Carbon Dioxide BUN Creatinine Glucose POC Glucose 139 H 128 H Calcium Magnesium AST Total Creatine Kinase CK-MB (CK-2) Troponin T NT-Pro-B Natriuret Pep Total Protein Albumin HDL Cholesterol 01/17/19 01/17/19 01/17/19 10:22 15:59 18:45 WBC RBC Hgb Hct MCV RDW Plt Count Lymph % (Auto) [place] % (Auto) Lymph # Seg Neutrophils % Seg Neuts % (Manual) Lymphocytes % (Manual) Seg Neutrophils # Seg Neutrophils # Man Lymphocytes # (Manual) PT INR POC ABG pH POC ABG pCO2 POC ABG pO2 Sodium Potassium Chloride Carbon Dioxide BUN Creatinine Glucose POC Glucose 133 H 121 H 106 H Calcium Magnesium AST Total Creatine Kinase CK-MB (CK-2) Troponin T NT-Pro-B Natriuret Pep Total Protein Albumin HDL Cholesterol 01/17/19 01/18/19 01/18/19 23:35 04:21 04:21 WBC RBC 3.27 L Hgb 9.6 L Hct 29.9 L MCV RDW Plt Count 79 L Lymph % (Auto) 6.0 L [place] % (Auto) Lymph # 0.5 L Seg Neutrophils % 89.2 H Seg Neuts % (Manual) Lymphocytes % (Manual) Seg Neutrophils # 8.1 H Seg Neutrophils # Man Lymphocytes # (Manual) PT INR POC ABG pH POC ABG pCO2 POC ABG pO2 Sodium Potassium Chloride Carbon Dioxide BUN 28 H Creatinine 1.3 H Glucose 129 H POC Glucose 121 H Calcium Magnesium AST 120 H Total Creatine Kinase CK-MB (CK-2) Troponin T NT-Pro-B Natriuret Pep Total Protein 5.1 L Albumin 3.0 L HDL Cholesterol 01/18/19 01/18/19 01/18/19 04:21 04:36 05:43 WBC RBC Hgb Hct MCV RDW Plt Count Lymph % (Auto) [place] % (Auto) Lymph # Seg Neutrophils % Seg Neuts % (Manual) Lymphocytes % (Manual) Seg Neutrophils # Seg Neutrophils # Man Lymphocytes # (Manual) PT INR POC ABG pH 7.485 H POC ABG pCO2 31.0 L POC ABG pO2 126 H Sodium Potassium Chloride Carbon Dioxide BUN 28 H Creatinine 1.3 H Glucose 128 H POC Glucose 142 H Calcium Magnesium AST Total Creatine Kinase CK-MB (CK-2) Troponin T NT-Pro-B Natriuret Pep Total Protein Albumin HDL Cholesterol 01/18/19 01/18/19 01/18/19 12:04 18:16 20:47 WBC RBC Hgb Hct MCV RDW Plt Count Lymph % (Auto) [place] % (Auto) Lymph # Seg Neutrophils % Seg Neuts % (Manual) Lymphocytes % (Manual) Seg Neutrophils # Seg Neutrophils # Man Lymphocytes # (Manual) PT INR POC ABG pH 7.489 H POC ABG pCO2 32.8 L POC ABG pO2 Sodium Potassium Chloride Carbon Dioxide BUN Creatinine Glucose POC Glucose 113 H 119 H Calcium Magnesium AST Total Creatine Kinase CK-MB (CK-2) Troponin T NT-Pro-B Natriuret Pep Total Protein Albumin HDL Cholesterol 01/19/19 01/19/19 01/19/19 00:40 05:35 11:39 WBC RBC Hgb Hct MCV RDW Plt Count Lymph % (Auto) [place] % (Auto) Lymph # Seg Neutrophils % Seg Neuts % (Manual) Lymphocytes % (Manual) Seg Neutrophils # Seg Neutrophils # Man Lymphocytes # (Manual) PT INR POC ABG pH POC ABG pCO2 POC ABG pO2 Sodium Potassium Chloride Carbon Dioxide BUN Creatinine Glucose POC Glucose 137 H 157 H 155 H Calcium Magnesium AST Total Creatine Kinase CK-MB (CK-2) Troponin T NT-Pro-B Natriuret Pep Total Protein Albumin HDL Cholesterol 01/19/19 01/19/19 01/19/19 18:24 21:08 23:33 WBC RBC Hgb Hct MCV RDW Plt Count Lymph % (Auto) [place] % (Auto) Lymph # Seg Neutrophils % Seg Neuts % (Manual) Lymphocytes % (Manual) Seg Neutrophils # Seg Neutrophils # Man Lymphocytes # (Manual) PT INR POC ABG pH 7.508 H POC ABG pCO2 34.2 L POC ABG pO2 Sodium Potassium Chloride Carbon Dioxide BUN Creatinine Glucose POC Glucose 145 H 156 H Calcium Magnesium AST Total Creatine Kinase CK-MB (CK-2) Troponin T NT-Pro-B Natriuret Pep Total Protein Albumin HDL Cholesterol 01/20/19 01/20/19 01/20/19 05:12 11:42 17:36 WBC RBC Hgb Hct MCV RDW Plt Count Lymph % (Auto) [place] % (Auto) Lymph # Seg Neutrophils % Seg Neuts % (Manual) Lymphocytes % (Manual) Seg Neutrophils # Seg Neutrophils # Man Lymphocytes # (Manual) PT INR POC ABG pH POC ABG pCO2 POC ABG pO2 Sodium Potassium Chloride Carbon Dioxide BUN Creatinine Glucose POC Glucose 152 H 159 H 169 H Calcium Magnesium AST Total Creatine Kinase CK-MB (CK-2) Troponin T NT-Pro-B Natriuret Pep Total Protein Albumin HDL Cholesterol 01/20/19 01/21/19 01/21/19 23:29 05:30 05:34 WBC RBC Hgb Hct MCV RDW Plt Count Lymph % (Auto) [place] % (Auto) Lymph # Seg Neutrophils % Seg Neuts % (Manual) Lymphocytes % (Manual) Seg Neutrophils # Seg Neutrophils # Man Lymphocytes # (Manual) PT INR POC ABG pH 7.616 H POC ABG pCO2 POC ABG pO2 71 L Sodium Potassium Chloride Carbon Dioxide BUN Creatinine Glucose POC Glucose 139 H 138 H Calcium Magnesium AST Total Creatine Kinase CK-MB (CK-2) Troponin T NT-Pro-B Natriuret Pep Total Protein Albumin HDL Cholesterol 01/21/19 01/21/19 01/22/19 12:41 18:47 00:07 WBC RBC Hgb Hct MCV RDW Plt Count Lymph % (Auto) [place] % (Auto) Lymph # Seg Neutrophils % Seg Neuts % (Manual) Lymphocytes % (Manual) Seg Neutrophils # Seg Neutrophils # Man Lymphocytes # (Manual) PT INR POC ABG pH POC ABG pCO2 POC ABG pO2 Sodium Potassium Chloride Carbon Dioxide BUN Creatinine Glucose POC Glucose 154 H 174 H 163 H Calcium Magnesium AST Total Creatine Kinase CK-MB (CK-2) Troponin T NT-Pro-B Natriuret Pep Total Protein Albumin HDL Cholesterol 01/22/19 01/22/19 01/22/19 04:35 05:46 12:18 WBC RBC Hgb Hct MCV RDW Plt Count Lymph % (Auto) [place] % (Auto) Lymph # Seg Neutrophils % Seg Neuts % (Manual) Lymphocytes % (Manual) Seg Neutrophils # Seg Neutrophils # Man Lymphocytes # (Manual) PT INR POC ABG pH 7.522 H POC ABG pCO2 POC ABG pO2 Sodium Potassium Chloride Carbon Dioxide BUN Creatinine Glucose POC Glucose 159 H 137 H Calcium Magnesium AST Total Creatine Kinase CK-MB (CK-2) Troponin T NT-Pro-B Natriuret Pep Total Protein Albumin HDL Cholesterol 01/22/19 01/22/19 01/22/19 15:00 15:00 18:13 WBC RBC 2.92 L Hgb 8.4 L Hct 25.6 L MCV RDW Plt Count Lymph % (Auto) [place] % (Auto) Lymph # Seg Neutrophils % Seg Neuts % (Manual) Lymphocytes % (Manual) Seg Neutrophils # Seg Neutrophils # Man Lymphocytes # (Manual) PT INR POC ABG pH POC ABG pCO2 POC ABG pO2 Sodium Potassium Chloride 97.0 L Carbon Dioxide BUN 37 H Creatinine Glucose 162 H POC Glucose 159 H Calcium 8.2 L Magnesium AST Total Creatine Kinase CK-MB (CK-2) Troponin T NT-Pro-B Natriuret Pep Total Protein Albumin HDL Cholesterol 01/22/19 01/23/19 01/23/19 22:45 00:01 05:10 WBC RBC 2.92 L Hgb 8.5 L Hct 25.4 L MCV RDW Plt Count Lymph % (Auto) 6.3 L [place] % (Auto) Lymph # 0.6 L Seg Neutrophils % 86.3 H Seg Neuts % (Manual) Lymphocytes % (Manual) Seg Neutrophils # 8.9 H Seg Neutrophils # Man Lymphocytes # (Manual) PT INR POC ABG pH POC ABG pCO2 POC ABG pO2 Sodium Potassium Chloride Carbon Dioxide BUN Creatinine Glucose POC Glucose 178 H 155 H Calcium Magnesium AST Total Creatine Kinase CK-MB (CK-2) Troponin T NT-Pro-B Natriuret Pep Total Protein Albumin HDL Cholesterol 01/23/19 01/23/19 01/23/19 11:31 17:49 Unknown WBC RBC Hgb Hct MCV RDW Plt Count Lymph % (Auto) [place] % (Auto) Lymph # Seg Neutrophils % Seg Neuts % (Manual) Lymphocytes % (Manual) Seg Neutrophils # Seg Neutrophils # Man Lymphocytes # (Manual) PT INR POC ABG pH POC ABG pCO2 POC ABG pO2 Sodium Potassium Chloride 95.4 L Carbon Dioxide BUN 37 H Creatinine Glucose 144 H POC Glucose 161 H 142 H Calcium Magnesium AST 88 H Total Creatine Kinase CK-MB (CK-2) Troponin T NT-Pro-B Natriuret Pep Total Protein 6.0 L Albumin 2.9 L HDL Cholesterol 01/24/19 01/24/19 01/24/19 00:21 05:36 12:35 WBC RBC Hgb Hct MCV RDW Plt Count Lymph % (Auto) [place] % (Auto) Lymph # Seg Neutrophils % Seg Neuts % (Manual) Lymphocytes % (Manual) Seg Neutrophils # Seg Neutrophils # Man Lymphocytes # (Manual) PT INR POC ABG pH POC ABG pCO2 POC ABG pO2 Sodium Potassium Chloride Carbon Dioxide BUN Creatinine Glucose POC Glucose 163 H 147 H 263 H Calcium Magnesium AST Total Creatine Kinase CK-MB (CK-2) Troponin T NT-Pro-B Natriuret Pep Total Protein Albumin HDL Cholesterol 01/24/19 01/24/19 01/24/19 17:46 23:07 Unknown WBC RBC 2.90 L Hgb 8.3 L Hct 25.0 L MCV RDW Plt Count Lymph % (Auto) [place] % (Auto) Lymph # Seg Neutrophils % Seg Neuts % (Manual) Lymphocytes % (Manual) Seg Neutrophils # Seg Neutrophils # Man Lymphocytes # (Manual) PT INR POC ABG pH POC ABG pCO2 POC ABG pO2 Sodium Potassium Chloride Carbon Dioxide BUN Creatinine Glucose POC Glucose 161 H 167 H Calcium Magnesium AST Total Creatine Kinase CK-MB (CK-2) Troponin T NT-Pro-B Natriuret Pep Total Protein Albumin HDL Cholesterol 01/24/19 01/25/19 01/25/19 Unknown 05:15 05:15 WBC RBC 2.90 L Hgb 8.4 L Hct 25.2 L MCV RDW Plt Count Lymph % (Auto) [place] % (Auto) Lymph # Seg Neutrophils % Seg Neuts % (Manual) Lymphocytes % (Manual) Seg Neutrophils # Seg Neutrophils # Man Lymphocytes # (Manual) PT INR POC ABG pH POC ABG pCO2 POC ABG pO2 Sodium 134 L 135 L Potassium Chloride 94.4 L 94.0 L Carbon Dioxide BUN 35 H 35 H Creatinine Glucose 151 H 128 H POC Glucose Calcium Magnesium AST Total Creatine Kinase CK-MB (CK-2) Troponin T NT-Pro-B Natriuret Pep Total Protein Albumin HDL Cholesterol 01/25/19 01/25/19 01/25/19 05:15 05:35 11:09 WBC RBC Hgb Hct MCV RDW Plt Count Lymph % (Auto) [place] % (Auto) Lymph # Seg Neutrophils % Seg Neuts % (Manual) Lymphocytes % (Manual) Seg Neutrophils # Seg Neutrophils # Man Lymphocytes # (Manual) PT 18.8 H INR 1.47 H POC ABG pH POC ABG pCO2 POC ABG pO2 Sodium Potassium Chloride Carbon Dioxide BUN Creatinine Glucose POC Glucose 126 H 149 H Calcium Magnesium AST Total Creatine Kinase CK-MB (CK-2) Troponin T NT-Pro-B Natriuret Pep Total Protein Albumin HDL Cholesterol 01/25/19 01/25/19 01/26/19 17:24 23:41 00:09 WBC RBC Hgb Hct MCV RDW Plt Count Lymph % (Auto) [place] % (Auto) Lymph # Seg Neutrophils % Seg Neuts % (Manual) Lymphocytes % (Manual) Seg Neutrophils # Seg Neutrophils # Man Lymphocytes # (Manual) PT INR POC ABG pH POC ABG pCO2 POC ABG pO2 Sodium Potassium Chloride Carbon Dioxide BUN Creatinine Glucose POC Glucose 140 H 142 H 156 H Calcium Magnesium AST Total Creatine Kinase CK-MB (CK-2) Troponin T NT-Pro-B Natriuret Pep Total Protein Albumin HDL Cholesterol 01/26/19 01/26/19 01/26/19 05:05 06:35 06:35 WBC RBC 2.83 L Hgb 8.1 L Hct 24.4 L MCV RDW Plt Count Lymph % (Auto) [place] % (Auto) Lymph # Seg Neutrophils % Seg Neuts % (Manual) Lymphocytes % (Manual) Seg Neutrophils # Seg Neutrophils # Man Lymphocytes # (Manual) PT INR POC ABG pH POC ABG pCO2 POC ABG pO2 Sodium Potassium Chloride 96.9 L Carbon Dioxide BUN 29 H Creatinine Glucose 141 H POC Glucose 159 H Calcium 8.3 L Magnesium AST Total Creatine Kinase CK-MB (CK-2) Troponin T NT-Pro-B Natriuret Pep Total Protein Albumin HDL Cholesterol 01/26/19 01/26/19 01/27/19 13:16 19:10 00:08 WBC RBC Hgb Hct MCV RDW Plt Count Lymph % (Auto) [place] % (Auto) Lymph # Seg Neutrophils % Seg Neuts % (Manual) Lymphocytes % (Manual) Seg Neutrophils # Seg Neutrophils # Man Lymphocytes # (Manual) PT INR POC ABG pH POC ABG pCO2 POC ABG pO2 Sodium Potassium Chloride Carbon Dioxide BUN Creatinine Glucose POC Glucose 159 H 146 H 140 H Calcium Magnesium AST Total Creatine Kinase CK-MB (CK-2) Troponin T NT-Pro-B Natriuret Pep Total Protein Albumin HDL Cholesterol 01/27/19 01/27/19 01/27/19 03:30 03:30 06:23 WBC RBC 2.85 L Hgb 8.3 L Hct 24.8 L MCV RDW Plt Count Lymph % (Auto) [place] % (Auto) Lymph # Seg Neutrophils % Seg Neuts % (Manual) Lymphocytes % (Manual) Seg Neutrophils # Seg Neutrophils # Man Lymphocytes # (Manual) PT INR POC ABG pH POC ABG pCO2 POC ABG pO2 Sodium 136 L Potassium Chloride 97.1 L Carbon Dioxide BUN 26 H Creatinine Glucose 129 H POC Glucose 154 H Calcium Magnesium AST Total Creatine Kinase CK-MB (CK-2) Troponin T NT-Pro-B Natriuret Pep Total Protein Albumin HDL Cholesterol 01/27/19 01/27/19 01/27/19 12:47 17:43 23:31 WBC RBC Hgb Hct MCV RDW Plt Count Lymph % (Auto) [place] % (Auto) Lymph # Seg Neutrophils % Seg Neuts % (Manual) Lymphocytes % (Manual) Seg Neutrophils # Seg Neutrophils # Man Lymphocytes # (Manual) PT INR POC ABG pH POC ABG pCO2 POC ABG pO2 Sodium Potassium Chloride Carbon Dioxide BUN Creatinine Glucose POC Glucose 159 H 180 H 164 H Calcium Magnesium AST Total Creatine Kinase CK-MB (CK-2) Troponin T NT-Pro-B Natriuret Pep Total Protein Albumin HDL Cholesterol 01/28/19 01/28/19 01/28/19 04:35 12:01 12:01 WBC RBC 2.67 L Hgb 7.9 L Hct 22.9 L MCV RDW Plt Count Lymph % (Auto) [place] % (Auto) Lymph # Seg Neutrophils % Seg Neuts % (Manual) Lymphocytes % (Manual) Seg Neutrophils # Seg Neutrophils # Man Lymphocytes # (Manual) PT INR POC ABG pH POC ABG pCO2 POC ABG pO2 Sodium 136 L Potassium 3.5 L Chloride Carbon Dioxide BUN 18 H Creatinine Glucose 143 H POC Glucose 139 H Calcium 8.0 L Magnesium AST Total Creatine Kinase CK-MB (CK-2) Troponin T NT-Pro-B Natriuret Pep Total Protein Albumin HDL Cholesterol 01/28/19 01/28/19 01/28/19 12:04 16:59 17:11 WBC RBC Hgb Hct MCV RDW Plt Count Lymph % (Auto) [place] % (Auto) Lymph # Seg Neutrophils % Seg Neuts % (Manual) Lymphocytes % (Manual) Seg Neutrophils # Seg Neutrophils # Man Lymphocytes # (Manual) PT INR POC ABG pH 7.488 H POC ABG pCO2 34.1 L POC ABG pO2 Sodium Potassium Chloride Carbon Dioxide BUN Creatinine Glucose POC Glucose 143 H 163 H Calcium Magnesium AST Total Creatine Kinase CK-MB (CK-2) Troponin T NT-Pro-B Natriuret Pep Total Protein Albumin HDL Cholesterol 01/29/19 01/29/19 01/29/19 00:10 05:47 12:08 WBC RBC Hgb Hct MCV RDW Plt Count Lymph % (Auto) [place] % (Auto) Lymph # Seg Neutrophils % Seg Neuts % (Manual) Lymphocytes % (Manual) Seg Neutrophils # Seg Neutrophils # Man Lymphocytes # (Manual) PT INR POC ABG pH POC ABG pCO2 POC ABG pO2 Sodium Potassium Chloride Carbon Dioxide BUN Creatinine Glucose POC Glucose 171 H 187 H 137 H Calcium Magnesium AST Total Creatine Kinase CK-MB (CK-2) Troponin T NT-Pro-B Natriuret Pep Total Protein Albumin HDL Cholesterol 01/29/19 01/29/19 01/29/19 16:48 16:54 17:47 WBC RBC Hgb Hct MCV RDW Plt Count Lymph % (Auto) [place] % (Auto) Lymph # Seg Neutrophils % Seg Neuts % (Manual) Lymphocytes % (Manual) Seg Neutrophils # Seg Neutrophils # Man Lymphocytes # (Manual) PT INR POC ABG pH 7.486 H 7.512 H POC ABG pCO2 32.8 L 32.7 L POC ABG pO2 108 H Sodium Potassium Chloride Carbon Dioxide BUN Creatinine Glucose POC Glucose 156 H Calcium Magnesium AST Total Creatine Kinase CK-MB (CK-2) Troponin T NT-Pro-B Natriuret Pep Total Protein Albumin HDL Cholesterol 01/29/19 01/30/19 01/30/19 23:48 06:45 07:18 WBC RBC 2.94 L Hgb 8.6 L Hct 25.7 L MCV RDW Plt Count Lymph % (Auto) [place] % (Auto) Lymph # Seg Neutrophils % Seg Neuts % (Manual) Lymphocytes % (Manual) Seg Neutrophils # Seg Neutrophils # Man Lymphocytes # (Manual) PT INR POC ABG pH POC ABG pCO2 POC ABG pO2 Sodium 135 L Potassium Chloride Carbon Dioxide BUN Creatinine Glucose 141 H POC Glucose 185 H Calcium 8.3 L Magnesium AST Total Creatine Kinase CK-MB (CK-2) Troponin T NT-Pro-B Natriuret Pep Total Protein Albumin HDL Cholesterol 01/30/19 01/30/19 01/30/19 11:17 16:47 18:16 WBC RBC Hgb Hct MCV RDW Plt Count Lymph % (Auto) [place] % (Auto) Lymph # Seg Neutrophils % Seg Neuts % (Manual) Lymphocytes % (Manual) Seg Neutrophils # Seg Neutrophils # Man Lymphocytes # (Manual) PT INR POC ABG pH 7.508 H POC ABG pCO2 31.5 L POC ABG pO2 135 H Sodium Potassium Chloride Carbon Dioxide BUN Creatinine Glucose POC Glucose 170 H 108 H Calcium Magnesium AST Total Creatine Kinase CK-MB (CK-2) Troponin T NT-Pro-B Natriuret Pep Total Protein Albumin HDL Cholesterol 01/30/19 01/31/19 01/31/19 23:38 05:45 12:04 WBC RBC Hgb Hct MCV RDW Plt Count Lymph % (Auto) [place] % (Auto) Lymph # Seg Neutrophils % Seg Neuts % (Manual) Lymphocytes % (Manual) Seg Neutrophils # Seg Neutrophils # Man Lymphocytes # (Manual) PT INR POC ABG pH POC ABG pCO2 POC ABG pO2 Sodium Potassium Chloride Carbon Dioxide BUN Creatinine Glucose POC Glucose 146 H 121 H 152 H Calcium Magnesium AST Total Creatine Kinase CK-MB (CK-2) Troponin T NT-Pro-B Natriuret Pep Total Protein Albumin HDL Cholesterol 01/31/19 01/31/19 02/01/19 17:44 23:58 05:46 WBC RBC Hgb Hct MCV RDW Plt Count Lymph % (Auto) [place] % (Auto) Lymph # Seg Neutrophils % Seg Neuts % (Manual) Lymphocytes % (Manual) Seg Neutrophils # Seg Neutrophils # Man Lymphocytes # (Manual) PT INR POC ABG pH POC ABG pCO2 POC ABG pO2 Sodium Potassium Chloride Carbon Dioxide BUN Creatinine Glucose POC Glucose 153 H 183 H 116 H Calcium Magnesium AST Total Creatine Kinase CK-MB (CK-2) Troponin T NT-Pro-B Natriuret Pep Total Protein Albumin HDL Cholesterol 02/01/19 02/01/19 02/01/19 11:10 12:18 17:48 WBC RBC Hgb Hct MCV RDW Plt Count Lymph % (Auto) [place] % (Auto) Lymph # Seg Neutrophils % Seg Neuts % (Manual) Lymphocytes % (Manual) Seg Neutrophils # Seg Neutrophils # Man Lymphocytes # (Manual) PT INR POC ABG pH POC ABG pCO2 POC ABG pO2 Sodium 133 L Potassium 3.3 L Chloride 96.1 L Carbon Dioxide BUN Creatinine Glucose 145 H POC Glucose 175 H 129 H Calcium 8.3 L Magnesium AST Total Creatine Kinase CK-MB (CK-2) Troponin T NT-Pro-B Natriuret Pep Total Protein Albumin HDL Cholesterol 02/01/19 02/02/19 02/02/19 23:13 05:16 06:00 WBC RBC Hgb Hct MCV RDW Plt Count Lymph % (Auto) [place] % (Auto) Lymph # Seg Neutrophils % Seg Neuts % (Manual) Lymphocytes % (Manual) Seg Neutrophils # Seg Neutrophils # Man Lymphocytes # (Manual) PT INR POC ABG pH POC ABG pCO2 POC ABG pO2 Sodium 135 L Potassium Chloride Carbon Dioxide BUN 18 H Creatinine Glucose 121 H POC Glucose 143 H 140 H Calcium 8.3 L Magnesium 1.60 L AST Total Creatine Kinase CK-MB (CK-2) Troponin T NT-Pro-B Natriuret Pep Total Protein Albumin HDL Cholesterol 02/02/19 02/02/19 02/02/19 12:06 18:23 23:45 WBC RBC Hgb Hct MCV RDW Plt Count Lymph % (Auto) [place] % (Auto) Lymph # Seg Neutrophils % Seg Neuts % (Manual) Lymphocytes % (Manual) Seg Neutrophils # Seg Neutrophils # Man Lymphocytes # (Manual) PT INR POC ABG pH POC ABG pCO2 POC ABG pO2 Sodium Potassium Chloride Carbon Dioxide BUN Creatinine Glucose POC Glucose 156 H 159 H 139 H Calcium Magnesium AST Total Creatine Kinase CK-MB (CK-2) Troponin T NT-Pro-B Natriuret Pep Total Protein Albumin HDL Cholesterol 02/03/19 02/03/19 02/03/19 05:19 12:02 17:24 WBC RBC Hgb Hct MCV RDW Plt Count Lymph % (Auto) [place] % (Auto) Lymph # Seg Neutrophils % Seg Neuts % (Manual) Lymphocytes % (Manual) Seg Neutrophils # Seg Neutrophils # Man Lymphocytes # (Manual) PT INR POC ABG pH POC ABG pCO2 POC ABG pO2 Sodium Potassium Chloride Carbon Dioxide BUN Creatinine Glucose POC Glucose 147 H 163 H 144 H Calcium Magnesium AST Total Creatine Kinase CK-MB (CK-2) Troponin T NT-Pro-B Natriuret Pep Total Protein Albumin HDL Cholesterol 02/03/19 02/04/19 02/04/19 23:43 05:30 11:14 WBC RBC 3.00 L Hgb 8.7 L Hct 25.9 L MCV RDW Plt Count Lymph % (Auto) 11.5 L [place] % (Auto) 7.5 H Lymph # 0.8 L Seg Neutrophils % 79.6 H Seg Neuts % (Manual) Lymphocytes % (Manual) Seg Neutrophils # Seg Neutrophils # Man Lymphocytes # (Manual) PT INR POC ABG pH POC ABG pCO2 POC ABG pO2 Sodium Potassium Chloride Carbon Dioxide BUN Creatinine Glucose POC Glucose 131 H 145 H Calcium Magnesium AST Total Creatine Kinase CK-MB (CK-2) Troponin T NT-Pro-B Natriuret Pep Total Protein Albumin HDL Cholesterol 02/04/19 02/04/1902/04/19 11:14 12:09 17:37 WBC RBC Hgb Hct MCV RDW Plt Count Lymph % (Auto) [place] % (Auto) Lymph # Seg Neutrophils % Seg Neuts % (Manual) Lymphocytes % (Manual) Seg Neutrophils # Seg Neutrophils # Man Lymphocytes # (Manual) PT INR POC ABG pH POC ABG pCO2 POC ABG pO2 Sodium Potassium Chloride 96.5 L Carbon Dioxide BUN 30 H Creatinine Glucose 142 H POC Glucose 149 H 170 H Calcium Magnesium AST Total Creatine Kinase CK-MB (CK-2) Troponin T NT-Pro-B Natriuret Pep Total Protein Albumin HDL Cholesterol 02/04/19 02/05/19 02/05/19 23:33 04:27 04:27 WBC RBC 3.61 L Hgb Hct MCV RDW Plt Count Lymph % (Auto) 12.3 L [place] % (Auto) Lymph # 0.9 L Seg Neutrophils % 79.1 H Seg Neuts % (Manual) Lymphocytes % (Manual) Seg Neutrophils # Seg Neutrophils # Man Lymphocytes # (Manual) PT INR POC ABG pH POC ABG pCO2 POC ABG pO2 Sodium Potassium Chloride 96.0 L Carbon Dioxide BUN 26 H Creatinine Glucose 118 H POC Glucose 182 H Calcium Magnesium AST Total Creatine Kinase CK-MB (CK-2) Troponin T NT-Pro-B Natriuret Pep Total Protein Albumin HDL Cholesterol 02/05/19 02/05/19 02/05/19 05:51 12:37 23:56 WBC RBC Hgb Hct MCV RDW Plt Count Lymph % (Auto) [place] % (Auto) Lymph # Seg Neutrophils % Seg Neuts % (Manual) Lymphocytes % (Manual) Seg Neutrophils # Seg Neutrophils # Man Lymphocytes # (Manual) PT INR POC ABG pH POC ABG pCO2 POC ABG pO2 Sodium Potassium Chloride Carbon Dioxide BUN Creatinine Glucose POC Glucose 162 H 147 H 167 H Calcium Magnesium AST Total Creatine Kinase CK-MB (CK-2) Troponin T NT-Pro-B Natriuret Pep Total Protein Albumin HDL Cholesterol 02/06/19 02/06/19 02/06/19 05:33 12:02 16:42 WBC RBC Hgb Hct MCV RDW Plt Count Lymph % (Auto) [place] % (Auto) Lymph # Seg Neutrophils % Seg Neuts % (Manual) Lymphocytes % (Manual) Seg Neutrophils # Seg Neutrophils # Man Lymphocytes # (Manual) PT INR POC ABG pH POC ABG pCO2 POC ABG pO2 Sodium Potassium Chloride Carbon Dioxide BUN Creatinine Glucose POC Glucose 124 H 156 H 125 H Calcium Magnesium AST Total Creatine Kinase CK-MB (CK-2) Troponin T NT-Pro-B Natriuret Pep Total Protein Albumin HDL Cholesterol 02/07/19 02/07/19 02/07/19 00:21 05:46 11:28 WBC RBC Hgb Hct MCV RDW Plt Count Lymph % (Auto) [place] % (Auto) Lymph # Seg Neutrophils % Seg Neuts % (Manual) Lymphocytes % (Manual) Seg Neutrophils # Seg Neutrophils # Man Lymphocytes # (Manual) PT INR POC ABG pH POC ABG pCO2 POC ABG pO2 Sodium Potassium Chloride Carbon Dioxide BUN Creatinine Glucose POC Glucose 206 H 153 H 200 H Calcium Magnesium AST Total Creatine Kinase CK-MB (CK-2) Troponin T NT-Pro-B Natriuret Pep Total Protein Albumin HDL Cholesterol 02/07/19 18:48 WBC RBC Hgb Hct MCV RDW Plt Count Lymph % (Auto) [place] % (Auto) Lymph # Seg Neutrophils % Seg Neuts % (Manual) Lymphocytes % (Manual) Seg Neutrophils # Seg Neutrophils # Man Lymphocytes # (Manual) PT INR POC ABG pH POC ABG pCO2 POC ABG pO2 Sodium Potassium Chloride Carbon Dioxide BUN Creatinine Glucose POC Glucose 185 H Calcium Magnesium AST Total Creatine Kinase CK-MB (CK-2) Troponin T NT-Pro-B Natriuret Pep Total Protein Albumin HDL Cholesterol Chest x-ray: report reviewed, image reviewed Additional Studies: Chest xray done on 02/04/19 FINDINGS: Tracheostomy tube now in place with standard position NG tube with tip below diaphragm Right PICC with tip SVC Increase in patchy right base airspace disease. Stringy left base airspace disease is stable Blunting right costophrenic sulcus which may represent trace effusion No pneumothorax IMPRESSION: Interval placement tracheostomy tube with standard position Increase in right basilar airspace disease and trace effusion. Allied health notes reviewed: nursing
[2019-02-08] MEDS: HumaLOG SUB-Q SCH ×4 (00:15→18:44)
[2019-02-08] MEDS: DUONEB *Not for PRN Use IH SCH ×4 (02:30→19:50)
[2019-02-08] MEDS ORDERED: NACL 0.9% 1000 ML 1,000 ML IV ONE (04:36)
[2019-02-08] MEDS: REGLAN IV SCH ×3 (06:34→22:23)
[2019-02-08] MEDS: LASIX PO SCH ×2 (06:34→17:37)
[2019-02-08] MEDS: SODIUM CHLORIDE FLUSH SYRINGE 10 ML IV PRN (06:35)
[2019-02-08 07:12] LABS: Basophils % (Auto) 0.2 % (0.0-1.8); Eosinophils % (Auto) 0.5 % (0.0-4.3); Hematocrit 26.7 % (30.3-42.9); Hemoglobin 8.9 gm/dl (10.1-14.3); Lymphocytes # (Auto) 0.9 K/mm3 (1.2-5.4); Lymphocytes % (Auto) 9.5 % (13.4-35.0); Mean Corpuscular HGB Conc 34 % (30-34); Mean Corpuscular Volume 86 fl (79-97); Monocytes # (Auto) 0.5 K/mm3 (0.0-0.8); Monocytes % (Auto) 5.3 % (0.0-7.3); Platelet Count 182 K/mm3 (140-440); Red Blood Count 3.12 M/mm3 (3.65-5.03); Red Cell Distribution Width 14.7 % (13.2-15.2)
[2019-02-08 07:24] LABS: BUN/Creatinine Ratio 49; Blood Urea Nitrogen 44 mg/dL (7-17); Calcium 9.1 mg/dL (8.4-10.2); Hemolysis Index 0
--- NOTE | 2019-02-08 08:44 | Progress Note ---
Assessment and Plan s/p Cardiopulmonary arrest, out of hospital, PEA with ROSC Acute hypoxic-hypercapnic respiratory failure on MVS Acute encephalopathy, metabolic Acute metabolic acidosis Acute renal injury Seizure activity Right lower lobe infiltrate, probably aspiration Pyrexia with leukocytosis Pulmonary HTN RVSP 60 Systolic heart failure EF 35-40% Thrombocytopenia Pyrexia PEG placement to facilitate discharge planning- scheduled for tomorrow Continue with ATC as tolerated Continue small bowel feeding Wean supplemental oxygen to keep O2 sats 88-90% Trach care, secretion management, airway clearance -PRN ABGs/CXR -Avoid nephrotoxic agents, -Stress ulcer prophylaxis -Aspiration precautions -Accuchecks with glycemic control. Target glucose of 140-180 mg/dL -Bronchodilators with pulmonary hygiene per RT -Mobility as tolerated by hemodynamics -Influenza and pneumonia vaccination per protocol -Care plan discussed with hospitalist service PROGNOSIS:poor CONDITION: FAIR CODE STATUS: FULL CODE Subjective Date of service: 02/08/19 Principal diagnosis: OOH cardiac arrest; Acute hypoxemic-hypercapnic Resp failure; PNA Interval history: Patient is seen today for: OOH cardiopulmonary arrest with ROSC; Acute hypoxemic-hypercapnic respiratory failure s/p MVS; acute encephalopathy; aspira tion pneumonia; s/p tracheostomy; ileus Seen and examined at bedside; 24-hour events reviewed; nursing and respiratory care staff consulted; no adverse overnight events reported to me; no fevers, no vomiting, no fevers, tolerating ATP , off MVS, Persistent encephalopathy, scheduled for surgical PEG placement tomorrow Objective Vital Signs - 12hr 02/07/19 02/07/19 02/08/19 22:05 23:35 02:25 Temperature 98.3 F Pulse Rate 94 H 88 Pulse Rate [ Anterior Bilateral Throughout] Respiratory 20 Rate Respiratory Rate [Anterior Bilateral Throughout] Blood Pressure 117/70 101/58 O2 Sat by Pulse 95 Oximetry O2 Sat by Pulse 98 Oximetry [ Assessment] 02/08/19 02/08/19 02/08/19 02:42 02:59 04:20 Temperature Pulse Rate 89 Pulse Rate [ 85 86 Anterior Bilateral Throughout] Respiratory Rate Respiratory 20 20 Rate [Anterior Bilateral Throughout] Blood Pressure O2 Sat by Pulse Oximetry O2 Sat by Pulse Oximetry [ Assessment] 02/08/19 02/08/19 02/08/19 04:42 05:27 08:00 Temperature 98.5 F Pulse Rate 89 Pulse Rate [ 96 H Anterior Bilateral Throughout] Respiratory 19 Rate Respiratory 17 Rate [Anterior Bilateral Throughout] Blood Pressure 102/62 O2 Sat by Pulse 98 98 Oximetry O2 Sat by Pulse 98 Oximetry [ Assessment] 02/08/19 02/08/19 08:05 08:06 Temperature Pulse Rate Pulse Rate [ 96 H Anterior Bilateral Throughout] Respiratory Rate Respiratory 19 Rate [Anterior Bilateral Throughout] Blood Pressure O2 Sat by Pulse 98 Oximetry O2 Sat by Pulse Oximetry [ Assessment] Constitutional: no acute distress, asleep, other (elderly, atraumatic, normocephalic, chronically looking female) Eyes: non-icteric ENT: oropharynx moist, other (s/p tracheostomy) Neck: supple, no lymphadenopathy, no JVD Effort: normal Ascultation: Bilateral: diminished breath sounds, rales (bases), rhonchi (scant), other (coarse breath sound bilaterally upper lobes anteriorly) Percussion: Bilateral: not dull Cardiovascular: regular rate and rhythm, other (tacycardia, S1,S2, no murmurs, gallops or rubs) Gastrointestinal: normoactive bowel sounds, soft, non-tender, non-distended Integumentary: normal Extremities: no cyanosis, no edema, pulses normal, no ischemia or petechiae Neurologic: unable to assess Psychiatric: other (unable to assess secondary to mental status) CBC and BMP: 02/08/19 07:00 02/08/19 07:00 ABG, PT/INR, D-dimer: ABG POC ABG pH 7.508 (7.35-7.45) H 01/30/19 16:47 POC ABG pCO2 31.5 (35-45) L 01/30/19 16:47 POC ABG pO2 135 (80-105) H 01/30/19 16:47 POC ABG HCO3 25.0 (22-26 mml/L) 01/30/19 16:47 POC ABG Total CO2 26 (23-27mmol/L) 01/30/19 16:47 POC ABG O2 Sat 99 01/30/19 16:47 PT/INR, D-dimer PT 18.8 Sec. (12.2-14.9) H 01/25/19 05:15 INR 1.47 (0.87-1.13) H 01/25/19 05:15 Abnormal lab findings: Abnormal Labs 01/15/19 01/15/19 01/15/19 07:50 07:50 07:50 WBC RBC Hgb Hct MCV 99 H RDW 16.7 H Plt Count 122 L Lymph % (Auto) [place] % (Auto) Lymph # Seg Neutrophils % Seg Neuts % (Manual) Lymphocytes % (Manual) Seg Neutrophils # Seg Neutrophils # Man Lymphocytes # (Manual) PT 19.7 H INR 1.56 H POC ABG pH POC ABG pCO2 POC ABG pO2 Sodium Potassium Chloride Carbon Dioxide 11 L BUN Creatinine 1.4 H Glucose 268 H POC Glucose Calcium Magnesium AST 57 H Total Creatine Kinase CK-MB (CK-2) Troponin T NT-Pro-B Natriuret Pep 5346 H Total Protein Albumin 3.6 L HDL Cholesterol 01/15/19 01/15/19 01/15/19 09:56 11:53 17:52 WBC RBC Hgb Hct MCV RDW Plt Count Lymph % (Auto) [place] % (Auto) Lymph # Seg Neutrophils % Seg Neuts % (Manual) Lymphocytes % (Manual) Seg Neutrophils # Seg Neutrophils # Man Lymphocytes # (Manual) PT INR POC ABG pH 7.186 L POC ABG pCO2 46.4 H POC ABG pO2 Sodium Potassium Chloride Carbon Dioxide BUN Creatinine Glucose POC Glucose Calcium Magnesium AST Total Creatine Kinase 683 H 1430 H CK-MB (CK-2) 9.5 H 13.5 H Troponin T 0.036 H D NT-Pro-B Natriuret Pep Total Protein Albumin HDL Cholesterol 65 H 01/15/19 01/15/19 01/16/19 18:31 21:46 02:14 WBC RBC Hgb Hct MCV RDW Plt Count Lymph % (Auto) [place] % (Auto) Lymph # Seg Neutrophils % Seg Neuts % (Manual) Lymphocytes % (Manual) Seg Neutrophils # Seg Neutrophils # Man Lymphocytes # (Manual) PT INR POC ABG pH POC ABG pCO2 31.8 L POC ABG pO2 167 H Sodium Potassium Chloride Carbon Dioxide BUN Creatinine Glucose POC Glucose 134 H 136 H Calcium Magnesium AST Total Creatine Kinase CK-MB (CK-2) Troponin T NT-Pro-B Natriuret Pep Total Protein Albumin HDL Cholesterol 01/16/19 01/16/19 01/16/19 04:16 04:16 05:05 WBC 11.4 H RBC Hgb Hct MCV RDW Plt Count 105 L Lymph % (Auto) [place] % (Auto) Lymph # Seg Neutrophils % Seg Neuts % (Manual) 74.0 H Lymphocytes % (Manual) 2.0 L Seg Neutrophils # Seg Neutrophils # Man 8.4 H Lymphocytes # (Manual) 0.2 L PT INR POC ABG pH 7.458 H POC ABG pCO2 31.4 L POC ABG pO2 135 H Sodium Potassium 3.3 L Chloride Carbon Dioxide 21 L D BUN 24 H Creatinine 1.5 H Glucose 141 H POC Glucose Calcium 8.1 L Magnesium AST 71 H Total Creatine Kinase CK-MB (CK-2) Troponin T NT-Pro-B Natriuret Pep Total Protein 6.2 L Albumin 3.5 L HDL Cholesterol 01/16/19 01/16/19 01/16/19 05:24 13:42 21:08 WBC RBC Hgb Hct MCV RDW Plt Count Lymph % (Auto) [place] % (Auto) Lymph # Seg Neutrophils % Seg Neuts % (Manual) Lymphocytes % (Manual) Seg Neutrophils # Seg Neutrophils # Man Lymphocytes # (Manual) PT INR POC ABG pH POC ABG pCO2 POC ABG pO2 Sodium Potassium Chloride Carbon Dioxide BUN Creatinine Glucose POC Glucose 137 H 129 H 122 H Calcium Magnesium AST Total Creatine Kinase CK-MB (CK-2) Troponin T NT-Pro-B Natriuret Pep Total Protein Albumin HDL Cholesterol 01/17/19 01/17/19 01/17/19 02:18 04:23 05:13 WBC RBC Hgb Hct MCV RDW Plt Count Lymph % (Auto) [place] % (Auto) Lymph # Seg Neutrophils % Seg Neuts % (Manual) Lymphocytes % (Manual) Seg Neutrophils # Seg Neutrophils # Man Lymphocytes # (Manual) PT INR POC ABG pH 7.479 H POC ABG pCO2 30.0 L POC ABG pO2 141 H Sodium Potassium Chloride Carbon Dioxide BUN Creatinine Glucose POC Glucose 139 H 128 H Calcium Magnesium AST Total Creatine Kinase CK-MB (CK-2) Troponin T NT-Pro-B Natriuret Pep Total Protein Albumin HDL Cholesterol 01/17/19 01/17/19 01/17/19 10:22 15:59 18:45 WBC RBC Hgb Hct MCV RDW Plt Count Lymph % (Auto) [place] % (Auto) Lymph # Seg Neutrophils % Seg Neuts % (Manual) Lymphocytes % (Manual) Seg Neutrophils # Seg Neutrophils # Man Lymphocytes # (Manual) PT INR POC ABG pH POC ABG pCO2 POC ABG pO2 Sodium Potassium Chloride Carbon Dioxide BUN Creatinine Glucose POC Glucose 133 H 121 H 106 H Calcium Magnesium AST Total Creatine Kinase CK-MB (CK-2) Troponin T NT-Pro-B Natriuret Pep Total Protein Albumin HDL Cholesterol 01/17/19 01/18/19 01/18/19 23:35 04:21 04:21 WBC RBC 3.27 L Hgb 9.6 L Hct 29.9 L MCV RDW Plt Count 79 L Lymph % (Auto) 6.0 L [place] % (Auto) Lymph # 0.5 L Seg Neutrophils % 89.2 H Seg Neuts % (Manual) Lymphocytes % (Manual) Seg Neutrophils # 8.1 H Seg Neutrophils # Man Lymphocytes # (Manual) PT INR POC ABG pH POC ABG pCO2 POC ABG pO2 Sodium Potassium Chloride Carbon Dioxide BUN 28 H Creatinine 1.3 H Glucose 129 H POC Glucose 121 H Calcium Magnesium AST 120 H Total Creatine Kinase CK-MB (CK-2) Troponin T NT-Pro-B Natriuret Pep Total Protein 5.1 L Albumin 3.0 L HDL Cholesterol 01/18/19 01/18/19 01/18/19 04:21 04:36 05:43 WBC RBC Hgb Hct MCV RDW Plt Count Lymph % (Auto) [place] % (Auto) Lymph # Seg Neutrophils % Seg Neuts % (Manual) Lymphocytes % (Manual) Seg Neutrophils # Seg Neutrophils # Man Lymphocytes # (Manual) PT INR POC ABG pH 7.485 H POC ABG pCO2 31.0 L POC ABG pO2 126 H Sodium Potassium Chloride Carbon Dioxide BUN 28 H Creatinine 1.3 H Glucose 128 H POC Glucose 142 H Calcium Magnesium AST Total Creatine Kinase CK-MB (CK-2) Troponin T NT-Pro-B Natriuret Pep Total Protein Albumin HDL Cholesterol 01/18/19 01/18/19 01/18/19 12:04 18:16 20:47 WBC RBC Hgb Hct MCV RDW Plt Count Lymph % (Auto) [place] % (Auto) Lymph # Seg Neutrophils % Seg Neuts % (Manual) Lymphocytes % (Manual) Seg Neutrophils # Seg Neutrophils # Man Lymphocytes # (Manual) PT INR POC ABG pH 7.489 H POC ABG pCO2 32.8 L POC ABG pO2 Sodium Potassium Chloride Carbon Dioxide BUN Creatinine Glucose POC Glucose 113 H 119 H Calcium Magnesium AST Total Creatine Kinase CK-MB (CK-2) Troponin T NT-Pro-B Natriuret Pep Total Protein Albumin HDL Cholesterol 01/19/19 01/19/19 01/19/19 00:40 05:35 11:39 WBC RBC Hgb Hct MCV RDW Plt Count Lymph % (Auto) [place] % (Auto) Lymph # Seg Neutrophils % Seg Neuts % (Manual) Lymphocytes % (Manual) Seg Neutrophils # Seg Neutrophils # Man Lymphocytes # (Manual) PT INR POC ABG pH POC ABG pCO2 POC ABG pO2 Sodium Potassium Chloride Carbon Dioxide BUN Creatinine Glucose POC Glucose 137 H 157 H 155 H Calcium Magnesium AST Total Creatine Kinase CK-MB (CK-2) Troponin T NT-Pro-B Natriuret Pep Total Protein Albumin HDL Cholesterol 01/19/19 01/19/19 01/19/19 18:24 21:08 23:33 WBC RBC Hgb Hct MCV RDW Plt Count Lymph % (Auto) [place] % (Auto) Lymph # Seg Neutrophils % Seg Neuts % (Manual) Lymphocytes % (Manual) Seg Neutrophils # Seg Neutrophils # Man Lymphocytes # (Manual) PT INR POC ABG pH 7.508 H POC ABG pCO2 34.2 L POC ABG pO2 Sodium Potassium Chloride Carbon Dioxide BUN Creatinine Glucose POC Glucose 145 H 156 H Calcium Magnesium AST Total Creatine Kinase CK-MB (CK-2) Troponin T NT-Pro-B Natriuret Pep Total Protein Albumin HDL Cholesterol 01/20/19 01/20/19 01/20/19 05:12 11:42 17:36 WBC RBC Hgb Hct MCV RDW Plt Count Lymph % (Auto) [place] % (Auto) Lymph # Seg Neutrophils % Seg Neuts % (Manual) Lymphocytes % (Manual) Seg Neutrophils # Seg Neutrophils # Man Lymphocytes # (Manual) PT INR POC ABG pH POC ABG pCO2 POC ABG pO2 Sodium Potassium Chloride Carbon Dioxide BUN Creatinine Glucose POC Glucose 152 H 159 H 169 H Calcium Magnesium AST Total Creatine Kinase CK-MB (CK-2) Troponin T NT-Pro-B Natriuret Pep Total Protein Albumin HDL Cholesterol 01/20/19 01/21/19 01/21/19 23:29 05:30 05:34 WBC RBC Hgb Hct MCV RDW Plt Count Lymph % (Auto) [place] % (Auto) Lymph # Seg Neutrophils % Seg Neuts % (Manual) Lymphocytes % (Manual) Seg Neutrophils # Seg Neutrophils # Man Lymphocytes # (Manual) PT INR POC ABG pH 7.616 H POC ABG pCO2 POC ABG pO2 71 L Sodium Potassium Chloride Carbon Dioxide BUN Creatinine Glucose POC Glucose 139 H 138 H Calcium Magnesium AST Total Creatine Kinase CK-MB (CK-2) Troponin T NT-Pro-B Natriuret Pep Total Protein Albumin HDL Cholesterol 01/21/19 01/21/19 01/22/19 12:41 18:47 00:07 WBC RBC Hgb Hct MCV RDW Plt Count Lymph % (Auto) [place] % (Auto) Lymph # Seg Neutrophils % Seg Neuts % (Manual) Lymphocytes % (Manual) Seg Neutrophils # Seg Neutrophils # Man Lymphocytes # (Manual) PT INR POC ABG pH POC ABG pCO2 POC ABG pO2 Sodium Potassium Chloride Carbon Dioxide BUN Creatinine Glucose POC Glucose 154 H 174 H 163 H Calcium Magnesium AST Total Creatine Kinase CK-MB (CK-2) Troponin T NT-Pro-B Natriuret Pep Total Protein Albumin HDL Cholesterol 01/22/19 01/22/19 01/22/19 04:35 05:46 12:18 WBC RBC Hgb Hct MCV RDW Plt Count Lymph % (Auto) [place] % (Auto) Lymph # Seg Neutrophils % Seg Neuts % (Manual) Lymphocytes % (Manual) Seg Neutrophils # Seg Neutrophils # Man Lymphocytes # (Manual) PT INR POC ABG pH 7.522 H POC ABG pCO2 POC ABG pO2 Sodium Potassium Chloride Carbon Dioxide BUN Creatinine Glucose POC Glucose 159 H 137 H Calcium Magnesium AST Total Creatine Kinase CK-MB (CK-2) Troponin T NT-Pro-B Natriuret Pep Total Protein Albumin HDL Cholesterol 01/22/19 01/22/19 01/22/19 15:00 15:00 18:13 WBC RBC 2.92 L Hgb 8.4 L Hct 25.6 L MCV RDW Plt Count Lymph % (Auto) [place] % (Auto) Lymph # Seg Neutrophils % Seg Neuts % (Manual) Lymphocytes % (Manual) Seg Neutrophils # Seg Neutrophils # Man Lymphocytes # (Manual) PT INR POC ABG pH POC ABG pCO2 POC ABG pO2 Sodium Potassium Chloride 97.0 L Carbon Dioxide BUN 37 H Creatinine Glucose 162 H POC Glucose 159 H Calcium 8.2 L Magnesium AST Total Creatine Kinase CK-MB (CK-2) Troponin T NT-Pro-B Natriuret Pep Total Protein Albumin HDL Cholesterol 01/22/19 01/23/19 01/23/19 22:45 00:01 05:10 WBC RBC 2.92 L Hgb 8.5 L Hct 25.4 L MCV RDW Plt Count Lymph % (Auto) 6.3 L [place] % (Auto) Lymph # 0.6 L Seg Neutrophils % 86.3 H Seg Neuts % (Manual) Lymphocytes % (Manual) Seg Neutrophils # 8.9 H Seg Neutrophils # Man Lymphocytes # (Manual) PT INR POC ABG pH POC ABG pCO2 POC ABG pO2 Sodium Potassium Chloride Carbon Dioxide BUN Creatinine Glucose POC Glucose 178 H 155 H Calcium Magnesium AST Total Creatine Kinase CK-MB (CK-2) Troponin T NT-Pro-B Natriuret Pep Total Protein Albumin HDL Cholesterol 01/23/19 01/23/19 01/23/19 11:31 17:49 Unknown WBC RBC Hgb Hct MCV RDW Plt Count Lymph % (Auto) [place] % (Auto) Lymph # Seg Neutrophils % Seg Neuts % (Manual) Lymphocytes % (Manual) Seg Neutrophils # Seg Neutrophils # Man Lymphocytes # (Manual) PT INR POC ABG pH POC ABG pCO2 POC ABG pO2 Sodium Potassium Chloride 95.4 L Carbon Dioxide BUN 37 H Creatinine Glucose 144 H POC Glucose 161 H 142 H Calcium Magnesium AST 88 H Total Creatine Kinase CK-MB (CK-2) Troponin T NT-Pro-B Natriuret Pep Total Protein 6.0 L Albumin 2.9 L HDL Cholesterol 01/24/19 01/24/19 01/24/19 00:21 05:36 12:35 WBC RBC Hgb Hct MCV RDW Plt Count Lymph % (Auto) [place] % (Auto) Lymph # Seg Neutrophils % Seg Neuts % (Manual) Lymphocytes % (Manual) Seg Neutrophils # Seg Neutrophils # Man Lymphocytes # (Manual) PT INR POC ABG pH POC ABG pCO2 POC ABG pO2 Sodium Potassium Chloride Carbon Dioxide BUN Creatinine Glucose POC Glucose 163 H 147 H 263 H Calcium Magnesium AST Total Creatine Kinase CK-MB (CK-2) Troponin T NT-Pro-B Natriuret Pep Total Protein Albumin HDL Cholesterol 01/24/19 01/24/19 01/24/19 17:46 23:07 Unknown WBC RBC 2.90 L Hgb 8.3 L Hct 25.0 L MCV RDW Plt Count Lymph % (Auto) [place] % (Auto) Lymph # Seg Neutrophils % Seg Neuts % (Manual) Lymphocytes % (Manual) Seg Neutrophils # Seg Neutrophils # Man Lymphocytes # (Manual) PT INR POC ABG pH POC ABG pCO2 POC ABG pO2 Sodium Potassium Chloride Carbon Dioxide BUN Creatinine Glucose POC Glucose 161 H 167 H Calcium Magnesium AST Total Creatine Kinase CK-MB (CK-2) Troponin T NT-Pro-B Natriuret Pep Total Protein Albumin HDL Cholesterol 01/24/19 01/25/19 01/25/19 Unknown 05:15 05:15 WBC RBC 2.90 L Hgb 8.4 L Hct 25.2 L MCV RDW Plt Count Lymph % (Auto) [place] % (Auto) Lymph # Seg Neutrophils % Seg Neuts % (Manual) Lymphocytes % (Manual) Seg Neutrophils # Seg Neutrophils # Man Lymphocytes # (Manual) PT INR POC ABG pH POC ABG pCO2 POC ABG pO2 Sodium 134 L 135 L Potassium Chloride 94.4 L 94.0 L Carbon Dioxide BUN 35 H 35 H Creatinine Glucose 151 H 128 H POC Glucose Calcium Magnesium AST Total Creatine Kinase CK-MB (CK-2) Troponin T NT-Pro-B Natriuret Pep Total Protein Albumin HDL Cholesterol 01/25/19 01/25/19 01/25/19 05:15 05:35 11:09 WBC RBC Hgb Hct MCV RDW Plt Count Lymph % (Auto) [place] % (Auto) Lymph # Seg Neutrophils % Seg Neuts % (Manual) Lymphocytes % (Manual) Seg Neutrophils # Seg Neutrophils # Man Lymphocytes # (Manual) PT 18.8 H INR 1.47 H POC ABG pH POC ABG pCO2 POC ABG pO2 Sodium Potassium Chloride Carbon Dioxide BUN Creatinine Glucose POC Glucose 126 H 149 H Calcium Magnesium AST Total Creatine Kinase CK-MB (CK-2) Troponin T NT-Pro-B Natriuret Pep Total Protein Albumin HDL Cholesterol 01/25/19 01/25/19 01/26/19 17:24 23:41 00:09 WBC RBC Hgb Hct MCV RDW Plt Count Lymph % (Auto) [place] % (Auto) Lymph # Seg Neutrophils % Seg Neuts % (Manual) Lymphocytes % (Manual) Seg Neutrophils # Seg Neutrophils # Man Lymphocytes # (Manual) PT INR POC ABG pH POC ABG pCO2 POC ABG pO2 Sodium Potassium Chloride Carbon Dioxide BUN Creatinine Glucose POC Glucose 140 H 142 H 156 H Calcium Magnesium AST Total Creatine Kinase CK-MB (CK-2) Troponin T NT-Pro-B Natriuret Pep Total Protein Albumin HDL Cholesterol 01/26/19 01/26/19 01/26/19 05:05 06:35 06:35 WBC RBC 2.83 L Hgb 8.1 L Hct 24.4 L MCV RDW Plt Count Lymph % (Auto) [place] % (Auto) Lymph # Seg Neutrophils % Seg Neuts % (Manual) Lymphocytes % (Manual) Seg Neutrophils # Seg Neutrophils # Man Lymphocytes # (Manual) PT INR POC ABG pH POC ABG pCO2 POC ABG pO2 Sodium Potassium Chloride 96.9 L Carbon Dioxide BUN 29 H Creatinine Glucose 141 H POC Glucose 159 H Calcium 8.3 L Magnesium AST Total Creatine Kinase CK-MB (CK-2) Troponin T NT-Pro-B Natriuret Pep Total Protein Albumin HDL Cholesterol 01/26/19 01/26/19 01/27/19 13:16 19:10 00:08 WBC RBC Hgb Hct MCV RDW Plt Count Lymph % (Auto) [place] % (Auto) Lymph # Seg Neutrophils % Seg Neuts % (Manual) Lymphocytes % (Manual) Seg Neutrophils # Seg Neutrophils # Man Lymphocytes # (Manual) PT INR POC ABG pH POC ABG pCO2 POC ABG pO2 Sodium Potassium Chloride Carbon Dioxide BUN Creatinine Glucose POC Glucose 159 H 146 H 140 H Calcium Magnesium AST Total Creatine Kinase CK-MB (CK-2) Troponin T NT-Pro-B Natriuret Pep Total Protein Albumin HDL Cholesterol 01/27/19 01/27/19 01/27/19 03:30 03:30 06:23 WBC RBC 2.85 L Hgb 8.3 L Hct 24.8 L MCV RDW Plt Count Lymph % (Auto) [place] % (Auto) Lymph # Seg Neutrophils % Seg Neuts % (Manual) Lymphocytes % (Manual) Seg Neutrophils # Seg Neutrophils # Man Lymphocytes # (Manual) PT INR POC ABG pH POC ABG pCO2 POC ABG pO2 Sodium 136 L Potassium Chloride 97.1 L Carbon Dioxide BUN 26 H Creatinine Glucose 129 H POC Glucose 154 H Calcium Magnesium AST Total Creatine Kinase CK-MB (CK-2) Troponin T NT-Pro-B Natriuret Pep Total Protein Albumin HDL Cholesterol 01/27/19 01/27/19 01/27/19 12:47 17:43 23:31 WBC RBC Hgb Hct MCV RDW Plt Count Lymph % (Auto) [place] % (Auto) Lymph # Seg Neutrophils % Seg Neuts % (Manual) Lymphocytes % (Manual) Seg Neutrophils # Seg Neutrophils # Man Lymphocytes # (Manual) PT INR POC ABG pH POC ABG pCO2 POC ABG pO2 Sodium Potassium Chloride Carbon Dioxide BUN Creatinine Glucose POC Glucose 159 H 180 H 164 H Calcium Magnesium AST Total Creatine Kinase CK-MB (CK-2) Troponin T NT-Pro-B Natriuret Pep Total Protein Albumin HDL Cholesterol 01/28/19 01/28/19 01/28/19 04:35 12:01 12:01 WBC RBC 2.67 L Hgb 7.9 L Hct 22.9 L MCV RDW Plt Count Lymph % (Auto) [place] % (Auto) Lymph # Seg Neutrophils % Seg Neuts % (Manual) Lymphocytes % (Manual) Seg Neutrophils # Seg Neutrophils # Man Lymphocytes # (Manual) PT INR POC ABG pH POC ABG pCO2 POC ABG pO2 Sodium 136 L Potassium 3.5 L Chloride Carbon Dioxide BUN 18 H Creatinine Glucose 143 H POC Glucose 139 H Calcium 8.0 L Magnesium AST Total Creatine Kinase CK-MB (CK-2) Troponin T NT-Pro-B Natriuret Pep Total Protein Albumin HDL Cholesterol 01/28/19 01/28/19 01/28/19 12:04 16:59 17:11 WBC RBC Hgb Hct MCV RDW Plt Count Lymph % (Auto) [place] % (Auto) Lymph # Seg Neutrophils % Seg Neuts % (Manual) Lymphocytes % (Manual) Seg Neutrophils # Seg Neutrophils # Man Lymphocytes # (Manual) PT INR POC ABG pH 7.488 H POC ABG pCO2 34.1 L POC ABG pO2 Sodium Potassium Chloride Carbon Dioxide BUN Creatinine Glucose POC Glucose 143 H 163 H Calcium Magnesium AST Total Creatine Kinase CK-MB (CK-2) Troponin T NT-Pro-B Natriuret Pep Total Protein Albumin HDL Cholesterol 01/29/19 01/29/19 01/29/19 00:10 05:47 12:08 WBC RBC Hgb Hct MCV RDW Plt Count Lymph % (Auto) [place] % (Auto) Lymph # Seg Neutrophils % Seg Neuts % (Manual) Lymphocytes % (Manual) Seg Neutrophils # Seg Neutrophils # Man Lymphocytes # (Manual) PT INR POC ABG pH POC ABG pCO2 POC ABG pO2 Sodium Potassium Chloride Carbon Dioxide BUN Creatinine Glucose POC Glucose 171 H 187 H 137 H Calcium Magnesium AST Total Creatine Kinase CK-MB (CK-2) Troponin T NT-Pro-B Natriuret Pep Total Protein Albumin HDL Cholesterol 01/29/19 01/29/19 01/29/19 16:48 16:54 17:47 WBC RBC Hgb Hct MCV RDW Plt Count Lymph % (Auto) [place] % (Auto) Lymph # Seg Neutrophils % Seg Neuts % (Manual) Lymphocytes % (Manual) Seg Neutrophils # Seg Neutrophils # Man Lymphocytes # (Manual) PT INR POC ABG pH 7.486 H 7.512 H POC ABG pCO2 32.8 L 32.7 L POC ABG pO2 108 H Sodium Potassium Chloride Carbon Dioxide BUN Creatinine Glucose POC Glucose 156 H Calcium Magnesium AST Total Creatine Kinase CK-MB (CK-2) Troponin T NT-Pro-B Natriuret Pep Total Protein Albumin HDL Cholesterol 01/29/19 01/30/19 01/30/19 23:48 06:45 07:18 WBC RBC 2.94 L Hgb 8.6 L Hct 25.7 L MCV RDW Plt Count Lymph % (Auto) [place] % (Auto) Lymph # Seg Neutrophils % Seg Neuts % (Manual) Lymphocytes % (Manual) Seg Neutrophils # Seg Neutrophils # Man Lymphocytes # (Manual) PT INR POC ABG pH POC ABG pCO2 POC ABG pO2 Sodium 135 L Potassium Chloride Carbon Dioxide BUN Creatinine Glucose 141 H POC Glucose 185 H Calcium 8.3 L Magnesium AST Total Creatine Kinase CK-MB (CK-2) Troponin T NT-Pro-B Natriuret Pep Total Protein Albumin HDL Cholesterol 01/30/19 01/30/19 01/30/19 11:17 16:47 18:16 WBC RBC Hgb Hct MCV RDW Plt Count Lymph % (Auto) [place] % (Auto) Lymph # Seg Neutrophils % Seg Neuts % (Manual) Lymphocytes % (Manual) Seg Neutrophils # Seg Neutrophils # Man Lymphocytes # (Manual) PT INR POC ABG pH 7.508 H POC ABG pCO2 31.5 L POC ABG pO2 135 H Sodium Potassium Chloride Carbon Dioxide BUN Creatinine Glucose POC Glucose 170 H 108 H Calcium Magnesium AST Total Creatine Kinase CK-MB (CK-2) Troponin T NT-Pro-B Natriuret Pep Total Protein Albumin HDL Cholesterol 01/30/19 01/31/19 01/31/19 23:38 05:45 12:04 WBC RBC Hgb Hct MCV RDW Plt Count Lymph % (Auto) [place] % (Auto) Lymph # Seg Neutrophils % Seg Neuts % (Manual) Lymphocytes % (Manual) Seg Neutrophils # Seg Neutrophils # Man Lymphocytes # (Manual) PT INR POC ABG pH POC ABG pCO2 POC ABG pO2 Sodium Potassium Chloride Carbon Dioxide BUN Creatinine Glucose POC Glucose 146 H 121 H 152 H Calcium Magnesium AST Total Creatine Kinase CK-MB (CK-2) Troponin T NT-Pro-B Natriuret Pep Total Protein Albumin HDL Cholesterol 01/31/19 01/31/19 02/01/19 17:44 23:58 05:46 WBC RBC Hgb Hct MCV RDW Plt Count Lymph % (Auto) [place] % (Auto) Lymph # Seg Neutrophils % Seg Neuts % (Manual) Lymphocytes % (Manual) Seg Neutrophils # Seg Neutrophils # Man Lymphocytes # (Manual) PT INR POC ABG pH POC ABG pCO2 POC ABG pO2 Sodium Potassium Chloride Carbon Dioxide BUN Creatinine Glucose POC Glucose 153 H 183 H 116 H Calcium Magnesium AST Total Creatine Kinase CK-MB (CK-2) Troponin T NT-Pro-B Natriuret Pep Total Protein Albumin HDL Cholesterol 02/01/19 02/01/19 02/01/19 11:10 12:18 17:48 WBC RBC Hgb Hct MCV RDW Plt Count Lymph % (Auto) [place] % (Auto) Lymph # Seg Neutrophils % Seg Neuts % (Manual) Lymphocytes % (Manual) Seg Neutrophils # Seg Neutrophils # Man Lymphocytes # (Manual) PT INR POC ABG pH POC ABG pCO2 POC ABG pO2 Sodium 133 L Potassium 3.3 L Chloride 96.1 L Carbon Dioxide BUN Creatinine Glucose 145 H POC Glucose 175 H 129 H Calcium 8.3 L Magnesium AST Total Creatine Kinase CK-MB (CK-2) Troponin T NT-Pro-B Natriuret Pep Total Protein Albumin HDL Cholesterol 02/01/19 02/02/19 02/02/19 23:13 05:16 06:00 WBC RBC Hgb Hct MCV RDW Plt Count Lymph % (Auto) [place] % (Auto) Lymph # Seg Neutrophils % Seg Neuts % (Manual) Lymphocytes % (Manual) Seg Neutrophils # Seg Neutrophils # Man Lymphocytes # (Manual) PT INR POC ABG pH POC ABG pCO2 POC ABG pO2 Sodium 135 L Potassium Chloride Carbon Dioxide BUN 18 H Creatinine Glucose 121 H POC Glucose 143 H 140 H Calcium 8.3 L Magnesium 1.60 L AST Total Creatine Kinase CK-MB (CK-2) Troponin T NT-Pro-B Natriuret Pep Total Protein Albumin HDL Cholesterol 02/02/19 02/02/19 02/02/19 12:06 18:23 23:45 WBC RBC Hgb Hct MCV RDW Plt Count Lymph % (Auto) [place] % (Auto) Lymph # Seg Neutrophils % Seg Neuts % (Manual) Lymphocytes % (Manual) Seg Neutrophils # Seg Neutrophils # Man Lymphocytes # (Manual) PT INR POC ABG pH POC ABG pCO2 POC ABG pO2 Sodium Potassium Chloride Carbon Dioxide BUN Creatinine Glucose POC Glucose 156 H 159 H 139 H Calcium Magnesium AST Total Creatine Kinase CK-MB (CK-2) Troponin T NT-Pro-B Natriuret Pep Total Protein Albumin HDL Cholesterol 02/03/19 02/03/19 02/03/19 05:19 12:02 17:24 WBC RBC Hgb Hct MCV RDW Plt Count Lymph % (Auto) [place] % (Auto) Lymph # Seg Neutrophils % Seg Neuts % (Manual) Lymphocytes % (Manual) Seg Neutrophils # Seg Neutrophils # Man Lymphocytes # (Manual) PT INR POC ABG pH POC ABG pCO2 POC ABG pO2 Sodium Potassium Chloride Carbon Dioxide BUN Creatinine Glucose POC Glucose 147 H 163 H 144 H Calcium Magnesium AST Total Creatine Kinase CK-MB (CK-2) Troponin T NT-Pro-B Natriuret Pep Total Protein Albumin HDL Cholesterol 02/03/19 02/04/19 02/04/19 23:43 05:30 11:14 WBC RBC 3.00 L Hgb 8.7 L Hct 25.9 L MCV RDW Plt Count Lymph % (Auto) 11.5 L [place] % (Auto) 7.5 H Lymph # 0.8 L Seg Neutrophils % 79.6 H Seg Neuts % (Manual) Lymphocytes % (Manual) Seg Neutrophils # Seg Neutrophils # Man Lymphocytes # (Manual) PT INR POC ABG pH POC ABG pCO2 POC ABG pO2 Sodium Potassium Chloride Carbon Dioxide BUN Creatinine Glucose POC Glucose 131 H 145 H Calcium Magnesium AST Total Creatine Kinase CK-MB (CK-2) Troponin T NT-Pro-B Natriuret Pep Total Protein Albumin HDL Cholesterol 02/04/19 02/04/19 02/04/19 11:14 12:09 17:37 WBC RBC Hgb Hct MCV RDW Plt Count Lymph % (Auto) [place] % (Auto) Lymph # Seg Neutrophils % Seg Neuts % (Manual) Lymphocytes % (Manual) Seg Neutrophils # Seg Neutrophils # Man Lymphocytes # (Manual) PT INR POC ABG pH POC ABG pCO2 POC ABG pO2 Sodium Potassium Chloride 96.5 L Carbon Dioxide BUN 30 H Creatinine Glucose 142 H POC Glucose 149 H 170 H Calcium Magnesium AST Total Creatine Kinase CK-MB (CK-2) Troponin T NT-Pro-B Natriuret Pep Total Protein Albumin HDL Cholesterol 02/04/19 02/05/19 02/05/19 23:33 04:27 04:27 WBC RBC 3.61 L Hgb Hct MCV RDW Plt Count Lymph % (Auto) 12.3 L [place] % (Auto) Lymph # 0.9 L Seg Neutrophils % 79.1 H Seg Neuts % (Manual) Lymphocytes % (Manual) Seg Neutrophils # Seg Neutrophils # Man Lymphocytes # (Manual) PT INR POC ABG pH POC ABG pCO2 POC ABG pO2 Sodium Potassium Chloride 96.0 L Carbon Dioxide BUN 26 H Creatinine Glucose 118 H POC Glucose 182 H Calcium Magnesium AST Total Creatine Kinase CK-MB (CK-2) Troponin T NT-Pro-B Natriuret Pep Total Protein Albumin HDL Cholesterol 02/05/19 02/05/19 02/05/19 05:51 12:37 23:56 WBC RBC Hgb Hct MCV RDW Plt Count Lymph % (Auto) [place] % (Auto) Lymph # Seg Neutrophils % Seg Neuts % (Manual) Lymphocytes % (Manual) Seg Neutrophils # Seg Neutrophils # Man Lymphocytes # (Manual) PT INR POC ABG pH POC ABG pCO2 POC ABG pO2 Sodium Potassium Chloride Carbon Dioxide BUN Creatinine Glucose POC Glucose 162 H 147 H 167 H Calcium Magnesium AST Total Creatine Kinase CK-MB (CK-2) Troponin T NT-Pro-B Natriuret Pep Total Protein Albumin HDL Cholesterol 02/06/19 02/06/19 02/06/19 05:33 12:02 16:42 WBC RBC Hgb Hct MCV RDW Plt Count Lymph % (Auto) [place] % (Auto) Lymph # Seg Neutrophils % Seg Neuts % (Manual) Lymphocytes % (Manual) Seg Neutrophils # Seg Neutrophils # Man Lymphocytes # (Manual) PT INR POC ABG pH POC ABG pCO2 POC ABG pO2 Sodium Potassium Chloride Carbon Dioxide BUN Creatinine Glucose POC Glucose 124 H 156 H 125 H Calcium Magnesium AST Total Creatine Kinase CK-MB (CK-2) Troponin T NT-Pro-B Natriuret Pep Total Protein Albumin HDL Cholesterol 02/07/19 02/07/19 02/07/19 00:21 05:46 11:28 WBC RBC Hgb Hct MCV RDW Plt Count Lymph % (Auto) [place] % (Auto) Lymph # Seg Neutrophils % Seg Neuts % (Manual) Lymphocytes % (Manual) Seg Neutrophils # Seg Neutrophils # Man Lymphocytes # (Manual) PT INR POC ABG pH POC ABG pCO2 POC ABG pO2 Sodium Potassium Chloride Carbon Dioxide BUN Creatinine Glucose POC Glucose 206 H 153 H 200 H Calcium Magnesium AST Total Creatine Kinase CK-MB (CK-2) Troponin T NT-Pro-B Natriuret Pep Total Protein Albumin HDL Cholesterol 02/07/19 02/08/19 02/08/19 18:48 00:08 05:29 WBC RBC Hgb Hct MCV RDW Plt Count Lymph % (Auto) [place] % (Auto) Lymph # Seg Neutrophils % Seg Neuts % (Manual) Lymphocytes % (Manual) Seg Neutrophils # Seg Neutrophils # Man Lymphocytes # (Manual) PT INR POC ABG pH POC ABG pCO2 POC ABG pO2 Sodium Potassium Chloride Carbon Dioxide BUN Creatinine Glucose POC Glucose 185 H 174 H 148 H Calcium Magnesium AST Total Creatine Kinase CK-MB (CK-2) Troponin T NT-Pro-B Natriuret Pep Total Protein Albumin HDL Cholesterol 02/08/19 02/08/19 07:00 07:00 WBC RBC 3.12 L Hgb 8.9 L Hct 26.7 L MCV RDW Plt Count Lymph % (Auto) 9.5 L [place] % (Auto) Lymph # 0.9 L Seg Neutrophils % 84.5 H Seg Neuts % (Manual) Lymphocytes % (Manual) Seg Neutrophils # 8.1 H Seg Neutrophils # Man Lymphocytes # (Manual) PT INR POC ABG pH POC ABG pCO2 POC ABG pO2 Sodium 135 L Potassium Chloride 91.1 L Carbon Dioxide 33 H BUN 44 H Creatinine Glucose 166 H POC Glucose Calcium Magnesium AST Total Creatine Kinase CK-MB (CK-2) Troponin T NT-Pro-B Natriuret Pep Total Protein Albumin HDL Cholesterol Allied health notes reviewed: nursing
[2019-02-08] MEDS: KEPPRA PO SCH ×2 (10:09→22:23)
[2019-02-08] MEDS: PREVACID SOLUTAB FEEDTUBE SCH ×2 (10:10→22:22)
[2019-02-08] MEDS: BABY ASPIRIN PO SCH (10:10)
[2019-02-08] MEDS: LOVENOX SUB-Q SCH (10:10)
[2019-02-08] MEDS: COREG PO SCH ×2 (10:11→22:22)
[2019-02-08] MEDS: NORVASC PO SCH (10:12)
[2019-02-08] MEDS: KENALOG TP SCH ×2 (10:21→22:23)
[2019-02-08] MEDS: SODIUM CHLORIDE FLUSH SYRINGE 10 ML IV SCH ×2 (13:34→22:23)
--- NOTE | 2019-02-08 13:52 | Anesthesia Consultation ---
Anesthesia Consult and Med Hx Date of service: 02/09/19 - Airway Anesthetic Teeth Evaluation: Edentulous ROM Head & Neck: Adequate Mental/Hyoid Distance: Adequate Mallampati Class: Class III Intubation Access Assessment: Probably Good - Pulmonary Exam CTA: Yes - Cardiac Exam Cardiac Exam: RRR - Pre-Operative Health Status ASA Pre-Surgery Classification: ASA4 Proposed Anesthetic Plan: General - Pulmonary Hx Smoking: No Hx Asthma: No Hx Respiratory Symptoms: Yes (witnessed cardiopulmonary arrest after seizure at home) COPD: Yes Home Oxygen Therapy: No Hx Pneumonia: Yes - Cardiovascular System Hx Hypertension: Yes Hx Heart Attack/AMI: Yes Hx Pacemaker: No Hx Internal Defibrillator: No - Central Nervous System Hx Seizures: Yes - Endocrine Hx Renal Disease: No Hx Liver Disease: No Hx Insulin Dependent Diabetes: No Hx Non-Insulin Dependent Diabetes: No Hx Thyroid Disease: No - Hematic Hx Anemia: Yes - Other Systems Hx Alcohol Use: No Hx Substance Use: No - Additional Comments Anesthesia Medical History Comments: Patient with trach collar; h/o CAD with stents; EF 35-40%; no GAC, no FHAC. Obtained consent from daughter at bedside.
--- NOTE | 2019-02-08 14:41 | Progress Note ---
Assessment and Plan Assessment and plan: Patient is 73 yo woman with a history of hypertension, CAD s/p stent and COPD/emphesema, not on home Oxygen who presented to [facility] ED on 01/15/2019 after cardiac arrest. How long she was unresponsive/without oxygen is unknown. She was in PEA, given 2 rounds of IV Epinephrine, CPR, intubated , resuscitated, and brought to ED. She had seizures later same day, was started on keppra. She had CARMELINA on presentation, resolved in few days. She remained comatose, acute respiratory failure vent dependent. Trach and PEG was recommended. Tracheostomy done 01/25/19. PEG not done yet because of abdominal distension and poor light translumination. She has poor prognosis and may need LTAC Oropharyngeal dysphagia. PEG tube pending Anoxic encephalopathy, severe irreversible brain damage: EEG 01/17/19 reported as abnormal with minimal brain activity. No epileptiform discharges. Neurology following, supportive care Cardiopulmonary arrest. Patient with out of hospital PEA arrest and ROSC. Cardiology following. Acute hypoxemic hypercapnic respiratory failure. Patient previously on mechanical ventilation but has been weaned. Continue TP trials. Continue trach care. Aspiration pneumonia. Completed treatment Aspiration precautions. Sepsis, poa. Complete Pneumonia treatment ID following. Acute renal failure, tubular necrosis and vasomotor nephropathy, poa. resolved, Etiology likely secondary to acute kidney injury from sepsis. Creatinine is stable. Continue to monitor. Pulmonary hypertension. Expedition Supervisor following Acute systolic heart failure. Patient with moderate global hypokinesis of left ventricle EF 35-40% and left ventricular systolic function moderately decreased. 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 Follow-up on current diagnosis of Cardiac arrest. No overnight events reported to me. Patient nonverbal. Imaging, nursing note, chart, labs and old chart reviewed. Hospitalist Physical - Physical exam Narrative exam: Gen: ill appearing, cachetic, unresponsive, comatose HEENT: NCAT, trach in place Neck: supple, no adenopathy, no thyromegaly, no JVD CVS/Heart: RRR, normal S1S2, pulses present bilaterally Chest/Lungs: diminished bs bilateral, Symmetrical chest expansion, good air entry bilaterally GI/Abdomen: soft, NTND, good bowel sounds, no guarding or rebound Extermity/Skin: no obvious rash MSK: unresponsive Neuro: unresponsive Psych: unresponsive - Constitutional Vitals: Temp Pulse Resp BP Pulse Ox 98.7 F 95 H 17 102/62 98 02/08/19 07:43 02/08/19 13:53 02/08/19 13:53 02/08/19 10:12 02/08/19 08:06 General appearance: Present: other (trached, nonresponsive at time of examination) Results - Labs CBC & Chem 7: 02/08/19 07:00 02/08/19 07:00 Labs: Laboratory Last Values WBC 9.6 K/mm3 (4.5-11.0) 02/08/19 07:00 RBC 3.12 M/mm3 (3.65-5.03) L 02/08/19 07:00 Hgb 8.9 gm/dl (10.1-14.3) L 02/08/19 07:00 Hct 26.7 % (30.3-42.9) L 02/08/19 07:00 MCV 86 fl (79-97) 02/08/19 07:00 MCH 29 pg (28-32) 02/08/19 07:00 MCHC 34 % (30-34) 02/08/19 07:00 RDW 14.7 % (13.2-15.2) 02/08/19 07:00 Plt Count 182 K/mm3 (140-440) 02/08/19 07:00 Lymph % (Auto) 9.5 % (13.4-35.0) L 02/08/19 07:00 [place] % (Auto) 5.3 % (0.0-7.3) 02/08/19 07:00 Eos % (Auto) 0.5 % (0.0-4.3) 02/08/19 07:00 Baso % (Auto) 0.2 % (0.0-1.8) 02/08/19 07:00 Lymph # 0.9 K/mm3 (1.2-5.4) L 02/08/19 07:00 [place] # 0.5 K/mm3 (0.0-0.8) 02/08/19 07:00 Eos # 0.0 K/mm3 (0.0-0.4) 02/08/19 07:00 Baso # 0.0 K/mm3 (0.0-0.1) 02/08/19 07:00 Add Manual Diff Complete 01/16/19 04:16 Total Counted 100 01/16/19 04:16 Seg Neutrophils % 84.5 % (40.0-70.0) H 02/08/19 07:00 Seg Neuts % (Manual) 74.0 % (40.0-70.0) H 01/16/19 04:16 22.0 % 01/16/19 04:16 2.0 % (13.4-35.0) L 01/16/19 04:16 Reactive Lymphs % (Man) 0 % 01/16/19 04:16 2.0 % (0.0-7.3) 01/16/19 04:16 0 % (0.0-4.3) 01/16/19 04:16 0 % (0.0-1.8) 01/16/19 04:16 0 % 01/16/19 04:16 0 % 01/16/19 04:16 0 % 01/16/19 04:16 0 % 01/16/19 04:16 Nucleated RBC % Not Reportable 01/16/19 04:16 Seg Neutrophils # 8.1 K/mm3 (1.8-7.7) H 02/08/19 07:00 Seg Neutrophils # Man 8.4 K/mm3 (1.8-7.7) H 01/16/19 04:16 Band Neutrophils # 2.5 K/mm3 01/16/19 04:16 0.2 K/mm3 (1.2-5.4) L 01/16/19 04:16 Abs React Lymphs (Man) 0.0 K/mm3 01/16/19 04:16 0.2 K/mm3 (0.0-0.8) 01/16/19 04:16 0.0 K/mm3 (0.0-0.4) 01/16/19 04:16 0.0 K/mm3 (0.0-0.1) 01/16/19 04:16 0.0 K/mm3 01/16/19 04:16 0.0 K/mm3 01/16/19 04:16 0.0 K/mm3 01/16/19 04:16 Blast Cells # 0.0 K/mm3 01/16/19 04:16 WBC Morphology Not Reportable 01/16/19 04:16 Hypersegmented Neuts Not Reportable 01/16/19 04:16 Hyposegmented Neuts Not Reportable 01/16/19 04:16 Hypogranular Neuts Not Reportable 01/16/19 04:16 Not Reportable 01/16/19 04:16 Not Reportable 01/16/19 04:16 Not Reportable 01/16/19 04:16 Not Reportable 01/16/19 04:16 Not Reportable 01/16/19 04:16 Not Reportable 01/16/19 04:16 Consistent w auto 01/16/19 04:16 Not Reportable 01/16/19 04:16 Plt Clumps, EDTA Not Reportable 01/16/19 04:16 Not Reportable 01/16/19 04:16 Not Reportable 01/16/19 04:16 Not Reportable 01/16/19 04:16 Plt Morphology Comment Not Reportable 01/16/19 04:16 RBC Morphology Normal 01/16/19 04:16 Dimorphic RBCs Not Reportable 01/16/19 04:16 Not Reportable 01/16/19 04:16 Not Reportable 01/16/19 04:16 Not Reportable 01/16/19 04:16 Not Reportable 01/16/19 04:16 Not Reportable 01/16/19 04:16 Not Reportable 01/16/19 04:16 Not Reportable 01/16/19 04:16 Not Reportable 01/16/19 04:16 Not Reportable 01/16/19 04:16 Not Reportable 01/16/19 04:16 Not Reportable 01/16/19 04:16 Not Reportable 01/16/19 04:16 Not Reportable 01/16/19 04:16 Not Reportable 01/16/19 04:16 Not Reportable 01/16/19 04:16 Not Reportable 01/16/19 04:16 Not Reportable 01/16/19 04:16 Not Reportable 01/16/19 04:16 Not Reportable 01/16/19 04:16 Acanthocytes (Spur) Not Reportable 01/16/19 04:16 Rouleaux Not Reportable 01/16/19 04:16 Not Reportable 01/16/19 04:16 Not Reportable 01/16/19 04:16 Not Reportable 01/16/19 04:16 Not Reportable 01/16/19 04:16 Hem Pathologist Commnt No 01/16/19 04:16 PT 18.8 Sec. (12.2-14.9) H 01/25/19 05:15 INR 1.47 (0.87-1.13) H 01/25/19 05:15 APTT 36.0 Sec. (24.2-36.6) 01/15/19 07:50 Heparin Anti-Xa, Unfract Negative (Negative) 01/19/19 Unknown POC ABG pH 7.508 (7.35-7.45) H 01/30/19 16:47 POC ABG pCO2 31.5 (35-45) L 01/30/19 16:47 POC ABG pO2 135 (80-105) H 01/30/19 16:47 POC ABG HCO3 25.0 (22-26 mml/L) 01/30/19 16:47 POC ABG Total CO2 26 (23-27mmol/L) 01/30/19 16:47 POC ABG O2 Sat 99 01/30/19 16:47 POC ABG Base Excess 2 ((-2) - (+3)mmol/L) 01/30/19 16:47 28 % 01/30/19 16:47 Sodium 135 mmol/L (137-145) L 02/08/19 07:00 Potassium 4.3 mmol/L (3.6-5.0) 02/08/19 07:00 Chloride 91.1 mmol/L (98-107) L 02/08/19 07:00 Carbon Dioxide 33 mmol/L (22-30) H 02/08/19 07:00 15 mmol/L 02/08/19 07:00 BUN 44 mg/dL (7-17) H 02/08/19 07:00 0.9 mg/dL (0.7-1.2) 02/08/19 07:00 Estimated GFR > 60 ml/min 02/08/19 07:00 49 % 02/08/19 07:00 Glucose 166 mg/dL (65-100) H 02/08/19 07:00 POC Glucose 166 (70-105) H 02/08/19 11:45 6.0 % (4-6) 01/15/19 11:53 Calcium 9.1 mg/dL (8.4-10.2) 02/08/19 07:00 Phosphorus 3.10 mg/dL (2.5-4.5) 02/02/19 06:00 Magnesium 1.60 mg/dL (1.7-2.3) L 02/02/19 06:00 0.30 mg/dL (0.1-1.2) 01/23/19 Unknown AST 88 units/L (5-40) H 01/23/19 Unknown ALT 31 units/L (7-56) 01/23/19 Unknown 48 units/L (35-129) 01/23/19 Unknown 1430 units/L (30-135) H 01/15/19 17:52 CK-MB (CK-2) 13.5 ng/mL (0.0-4.0) H 01/15/19 17:52 CK-MB (CK-2) Rel Index 0.9 (0-4) 01/15/19 17:52 0.036 ng/mL (0.00-0.029) H D 01/15/19 17:52 NT-Pro-B Natriuret Pep 5346 pg/mL (0-900) H 01/15/19 07:50 6.0 g/dL (6.3-8.2) L 01/23/19 Unknown 2.9 g/dL (3.9-5) L 01/23/19 Unknown 0.9 % 01/23/19 Unknown Triglycerides 75 mg/dL (2-149) 01/15/19 17:52 Cholesterol 149 mg/dL (50-199) 01/15/19 17:52 84 mg/dL (50-130) 01/15/19 17:52 65 mg/dL (40-59) H 01/15/19 17:52 2.29 % 01/15/19 17:52 See scanned report 01/19/19 Unknown Yellow (Yellow) 01/21/19 16:10 Clear (Clear) 01/21/19 16:10 6.0 (5.0-7.0) 01/21/19 16:10 Ur Specific [place] 1.015 (1.003-1.030) 01/21/19 16:10 <15 mg/dl mg/dL (Negative) 01/21/19 16:10 Neg mg/dL (Negative) 01/21/19 16:10 Neg mg/dL (Negative) 01/21/19 16:10 Neg (Negative) 01/21/19 16:10 Neg (Negative) 01/21/19 16:10 Neg (Negative) 01/21/19 16:10 2.0 mg/dL (<2.0) 01/21/19 16:10 Ur Leukocyte Esterase Neg (Negative) 01/21/19 16:10 1.0 /HPF (0.0-6.0) 01/21/19 16:10 5.0 /HPF (0.0-6.0) 01/21/19 16:10 Presumptive negative 01/15/19 16:30 Presumptive negative 01/15/19 16:30 Ur Barbiturates Screen Presumptive negative 01/15/19 16:30 Ur Phencyclidine Scrn Presumptive negative 01/15/19 16:30 Ur Amphetamines Screen Presumptive negative 01/15/19 16:30 U Benzodiazepines Scrn Presumptive negative 01/15/19 16:30 Presumptive negative 01/15/19 16:30 U Marijuana (THC) Screen Presumptive negative 01/15/19 16:30 Disclamer 01/15/19 16:30 Heparin-induced Plt Ab Negative (Negative) 01/19/19 Unknown UF Heparin High Dose 3 % Release 01/19/19 Unknown JOSEFA UFH Low Dose 0.1 4 % Release 01/19/19 Unknown JOSEFA UFH Low Dose 0.5 5 % Release 01/19/19 Unknown C. difficile Tox (PCR) Negative (Negative) 01/16/19 00:00 Active Medications - Current Medications Current Medications: Generic Name Dose Route Start Last Admin Trade Name Freq PRN Reason Stop Dose Admin Acetaminophen 650 mg 01/16/19 09:37 01/20/19 00:24 Tylenol PO 650 mg Q4H PRN Administration Fever >101 Albuterol/Ipratropium 1 ampul 01/15/19 14:00 02/08/19 13:52 Duoneb *Not For Prn Use* IH 1 ampul Q6HRT DEON Administration Amlodipine Besylate 10 mg 01/24/19 12:00 02/08/19 10:12 Norvasc PO Not Given DAILY [facility] Lipase/Protease/Amylase 1 each 02/02/19 14:21 Pancreaze 10,500 Unit FEEDTUBE PRN PRN For Clogged Feeding Tube Aspirin 81 mg 01/16/19 10:00 02/08/19 10:10 Baby Aspirin PO 81 mg QDAY DEON Administration Atorvastatin Calcium 20 mg 01/16/19 22:00 02/07/19 22:04 Lipitor PO 20 mg QHS DEON Administration Carvedilol 12.5 mg 01/24/19 22:00 02/08/19 10:11 Coreg PO Not Given BID DEON Enoxaparin Sodium 40 mg 01/30/19 10:00 02/08/19 10:10 Lovenox SUB-Q 40 mg QDAY@1000 DEON Administration Furosemide 20 mg 01/19/19 18:00 02/08/19 06:34 Lasix PO 20 mg 0600,1800 DEON Administration Insulin Human Lispro 0 unit 01/22/19 14:00 02/08/19 13:35 Humalog SUB-Q 2 unit Q6HR DEON Administration Protocol Lansoprazole 30 mg 01/30/19 10:00 02/08/19 10:10 Prevacid Solutab FEEDTUBE 30 mg BID DEON Administration Levetiracetam 750 mg 01/18/19 10:00 02/08/19 10:09 Keppra PO 750 mg BID DEON Administration Metoclopramide HCl 10 mg 02/01/19 14:00 02/08/19 13:34 Reglan IV 10 mg Q8HR DEON Administration Simple Syrup 15 ml 02/02/19 14:21 Simple Syrup FEEDTUBE PRN PRN Hypoglycemia Simple Syrup 30 ml 02/02/19 14:21 Simple Syrup FEEDTUBE PRN PRN Hypoglycemia Sodium Bicarbonate 325 mg 02/02/19 14:21 Sodium Bicarbonate FEEDTUBE PRN PRN For Clogged Feeding Tube Sodium Chloride 10 ml 01/15/19 22:00 02/08/19 13:34 Sodium Chloride Flush Syringe 10 Ml IV 10 ml BID DEON Administration Sodium Chloride 10 ml 01/15/19 10:34 02/08/19 06:35 Sodium Chloride Flush Syringe 10 Ml IV 10 ml PRN PRN Administration LINE FLUSH Triamcinolone Acetonide 1 applic 01/24/19 14:00 02/08/19 10:21 Kenalog TP 1 applic BID DEON Administration Nutrition/Malnutrition Assess - Dietary Evaluation Nutrition/Malnutrition Findings: Nutrition Notes Start: 01/15/19 14:28 Freq: Status: Active Protocol: Document 02/05/19 14:19 RM (Rec: 02/05/19 14:26 RM [id number]) Nutrition Notes Initial or Follow up Reassessment Current Diagnosis Acute Kidney Injury,Heart Failure,Respiratory Failure Other Pertinent Diagnosis dysphagia, s/p cardiorespiratory arrest (at home), Aspiration Pneu Current Diet Glucerna 1.2 at 50 ml/hr Labs/Tests Na 138 Pertinent Medications Lasix Height 5 ft 4 in Weight 47.7 kg [place] Body Weight (kg) 54.54 BMI 18.0 Subjective/Other Information Observed Glucerna 1.2 infusing at 50 ml/hr. Pt is tolerating TF per nurse. Percent of energy/protein needs met: 86%/100% Burn Absent Trauma Absent #1 Nutrition Diagnosis Inadequate oral intake Diagnosis Progress(for reassessment Continues documentation) Is patient on ventilator? No Is Patient Ambulatory and/or Out of Bed No REE-([facility]-confined to bed) 1155.024 Kcal/Kg value to use for calculation 35 Approximate Energy Requirements Using 1670 kcal/Kg Calculation Used for Recommendations Kcal/kg Additional Notes Pro needs 1-1.2g/k-57g/day Fluid needs 1ml/kcal Nutrition Intervention Nutrition Support: Glucerna 1.2 at 50ml/hr with 80ml water flush q4h. Kcal 1,440 Protein (gm) 72 Carbohydrates (gm) 137 Fluid (mL) 966 Fiber (gm) 19 Goal #1 Continue to meet at least 75% of calorie and protein needs via TF Goal #2 Wt maintenance and/or gain Follow-Up By: 02/13/19 Additional Comments Follow for TF tolerance
[2019-02-09] MEDS: HumaLOG SUB-Q SCH ×3 (01:54→21:16)
[2019-02-09] MEDS: DUONEB *Not for PRN Use IH SCH ×4 (02:32→23:02)
[2019-02-09] MEDS: LASIX PO SCH (05:46)
[2019-02-09] MEDS: REGLAN IV SCH ×3 (05:46→21:57)
--- NOTE | 2019-02-09 10:21 | Progress Note ---
Assessment and Plan Assessment and plan: Patient is 73 yo woman with a history of hypertension, CAD s/p stent and COPD/emphesema, not on home Oxygen who presented to [facility] ED on 01/15/2019 after cardiac arrest. How long she was unresponsive/without oxygen is unknown. She was in PEA, given 2 rounds of IV Epinephrine, CPR, intubated , resuscitated, and brought to ED. She had seizures later same day, was started on keppra. She had CARMELINA on presentation, resolved in few days. She remained comatose, acute respiratory failure vent dependent. Trach and PEG was recommended. Tracheostomy done 01/25/19. PEG not done yet because of abdominal distension and poor light translumination. She has poor prognosis and may need LTAC Oropharyngeal dysphagia. PEG tube pending Anoxic encephalopathy, severe irreversible brain damage: EEG 01/17/19 reported as abnormal with minimal brain activity. No epileptiform discharges. Neurology following, supportive care Cardiopulmonary arrest. Patient with out of hospital PEA arrest and ROSC. Cardiology following. Acute hypoxemic hypercapnic respiratory failure. Patient previously on mechanical ventilation but has been weaned. Continue TP trials. Continue trach care. Aspiration pneumonia. Completed treatment Aspiration precautions. Sepsis, poa. Complete Pneumonia treatment ID following. Acute renal failure, tubular necrosis and vasomotor nephropathy, poa. resolved, Etiology likely secondary to acute kidney injury from sepsis. Creatinine is stable. Continue to monitor. Pulmonary hypertension. 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 Patient with moderate global hypokinesis of left ventricle EF 35-40% and left ventricular systolic function moderately decreased. Cardiology following CAD s/p stent placement, She goes to allergist/md at [place] Sacral decubitus, stage 3; continue wound care, decline to place a cooper, continue to use Purex catheter Disposition: continue inpatient care, Patient transferred to the floor Tuesday02/05/19, LTAC after PEG tube placement Discussed with Julia at bedside. Patient is optimized for surgery today. History Interval history: Patient was seen and examined. Follow-up on current diagnosis of Cardiac arrest. No overnight events reported to me. Patient nonverbal. Imaging, nursing note, chart, labs and old chart reviewed. Hospitalist Physical - Physical exam Narrative exam: Gen: ill appearing, cachetic, unresponsive, comatose HEENT: NCAT, trach in place Neck: supple, no adenopathy, no thyromegaly, no JVD CVS/Heart: RRR, normal S1S2, pulses present bilaterally Chest/Lungs: diminished bs bilateral, Symmetrical chest expansion, good air entry bilaterally GI/Abdomen: soft, NTND, good bowel sounds, no guarding or rebound Extermity/Skin: no obvious rash MSK: unresponsive Neuro: unresponsive Psych: unresponsive - Constitutional Vitals: Temp Pulse Resp BP Pulse Ox 97.4 F L 82 16 121/68 86 02/09/19 07:32 02/09/19 07:32 02/09/19 07:32 02/09/19 07:32 02/09/19 07:32 General appearance: Present: other (trached, nonresponsive at time of examination) Results - Labs CBC & Chem 7: 02/08/19 07:00 02/08/19 07:00 Labs: Laboratory Last Values WBC 9.6 K/mm3 (4.5-11.0) 02/08/19 07:00 RBC 3.12 M/mm3 (3.65-5.03) L 02/08/19 07:00 Hgb 8.9 gm/dl (10.1-14.3) L 02/08/19 07:00 Hct 26.7 % (30.3-42.9) L 02/08/19 07:00 MCV 86 fl (79-97) 02/08/19 07:00 MCH 29 pg (28-32) 02/08/19 07:00 MCHC 34 % (30-34) 02/08/19 07:00 RDW 14.7 % (13.2-15.2) 02/08/19 07:00 Plt Count 182 K/mm3 (140-440) 02/08/19 07:00 Lymph % (Auto) 9.5 % (13.4-35.0) L 02/08/19 07:00 [place] % (Auto) 5.3 % (0.0-7.3) 02/08/19 07:00 Eos % (Auto) 0.5 % (0.0-4.3) 02/08/19 07:00 Baso % (Auto) 0.2 % (0.0-1.8) 02/08/19 07:00 Lymph # 0.9 K/mm3 (1.2-5.4) L 02/08/19 07:00 [place] # 0.5 K/mm3 (0.0-0.8) 02/08/19 07:00 Eos # 0.0 K/mm3 (0.0-0.4) 02/08/19 07:00 Baso # 0.0 K/mm3 (0.0-0.1) 02/08/19 07:00 Add Manual Diff Complete 01/16/19 04:16 Total Counted 100 01/16/19 04:16 Seg Neutrophils % 84.5 % (40.0-70.0) H 02/08/19 07:00 Seg Neuts % (Manual) 74.0 % (40.0-70.0) H 01/16/19 04:16 22.0 % 01/16/19 04:16 2.0 % (13.4-35.0) L 01/16/19 04:16 Reactive Lymphs % (Man) 0 % 01/16/19 04:16 2.0 % (0.0-7.3) 01/16/19 04:16 0 % (0.0-4.3) 01/16/19 04:16 0 % (0.0-1.8) 01/16/19 04:16 0 % 01/16/19 04:16 0 % 01/16/19 04:16 0 % 01/16/19 04:16 0 % 01/16/19 04:16 Nucleated RBC % Not Reportable 01/16/19 04:16 Seg Neutrophils # 8.1 K/mm3 (1.8-7.7) H 02/08/19 07:00 Seg Neutrophils # Man 8.4 K/mm3 (1.8-7.7) H 01/16/19 04:16 Band Neutrophils # 2.5 K/mm3 01/16/19 04:16 0.2 K/mm3 (1.2-5.4) L 01/16/19 04:16 Abs React Lymphs (Man) 0.0 K/mm3 01/16/19 04:16 0.2 K/mm3 (0.0-0.8) 01/16/19 04:16 0.0 K/mm3 (0.0-0.4) 01/16/19 04:16 0.0 K/mm3 (0.0-0.1) 01/16/19 04:16 0.0 K/mm3 01/16/19 04:16 0.0 K/mm3 01/16/19 04:16 0.0 K/mm3 01/16/19 04:16 Blast Cells # 0.0 K/mm3 01/16/19 04:16 WBC Morphology Not Reportable 01/16/19 04:16 Hypersegmented Neuts Not Reportable 01/16/19 04:16 Hyposegmented Neuts Not Reportable 01/16/19 04:16 Hypogranular Neuts Not Reportable 01/16/19 04:16 Not Reportable 01/16/19 04:16 Not Reportable 01/16/19 04:16 Not Reportable 01/16/19 04:16 Not Reportable 01/16/19 04:16 Not Reportable 01/16/19 04:16 Not Reportable 01/16/19 04:16 Consistent w auto 01/16/19 04:16 Not Reportable 01/16/19 04:16 Plt Clumps, EDTA Not Reportable 01/16/19 04:16 Not Reportable 01/16/19 04:16 Not Reportable 01/16/19 04:16 Not Reportable 01/16/19 04:16 Plt Morphology Comment Not Reportable 01/16/19 04:16 RBC Morphology Normal 01/16/19 04:16 Dimorphic RBCs Not Reportable 01/16/19 04:16 Not Reportable 01/16/19 04:16 Not Reportable 01/16/19 04:16 Not Reportable 01/16/19 04:16 Not Reportable 01/16/19 04:16 Not Reportable 01/16/19 04:16 Not Reportable 01/16/19 04:16 Not Reportable 01/16/19 04:16 Not Reportable 01/16/19 04:16 Not Reportable 01/16/19 04:16 Not Reportable 01/16/19 04:16 Not Reportable 01/16/19 04:16 Not Reportable 01/16/19 04:16 Not Reportable 01/16/19 04:16 Not Reportable 01/16/19 04:16 Not Reportable 01/16/19 04:16 Not Reportable 01/16/19 04:16 Not Reportable 01/16/19 04:16 Not Reportable 01/16/19 04:16 Not Reportable 01/16/19 04:16 Acanthocytes (Spur) Not Reportable 01/16/19 04:16 Rouleaux Not Reportable 01/16/19 04:16 Not Reportable 01/16/19 04:16 Not Reportable 01/16/19 04:16 Not Reportable 01/16/19 04:16 Not Reportable 01/16/19 04:16 Hem Pathologist Commnt No 01/16/19 04:16 PT 18.8 Sec. (12.2-14.9) H 01/25/19 05:15 INR 1.47 (0.87-1.13) H 01/25/19 05:15 APTT 36.0 Sec. (24.2-36.6) 01/15/19 07:50 Heparin Anti-Xa, Unfract Negative (Negative) 01/19/19 Unknown POC ABG pH 7.508 (7.35-7.45) H 01/30/19 16:47 POC ABG pCO2 31.5 (35-45) L 01/30/19 16:47 POC ABG pO2 135 (80-105) H 01/30/19 16:47 POC ABG HCO3 25.0 (22-26 mml/L) 01/30/19 16:47 POC ABG Total CO2 26 (23-27mmol/L) 01/30/19 16:47 POC ABG O2 Sat 99 01/30/19 16:47 POC ABG Base Excess 2 ((-2) - (+3)mmol/L) 01/30/19 16:47 28 % 01/30/19 16:47 Sodium 135 mmol/L (137-145) L 02/08/19 07:00 Potassium 4.3 mmol/L (3.6-5.0) 02/08/19 07:00 Chloride 91.1 mmol/L (98-107) L 02/08/19 07:00 Carbon Dioxide 33 mmol/L (22-30) H 02/08/19 07:00 15 mmol/L 02/08/19 07:00 BUN 44 mg/dL (7-17) H 02/08/19 07:00 0.9 mg/dL (0.7-1.2) 02/08/19 07:00 Estimated GFR > 60 ml/min 02/08/19 07:00 49 % 02/08/19 07:00 Glucose 166 mg/dL (65-100) H 02/08/19 07:00 POC Glucose 146 (70-105) H 02/09/19 05:44 6.0 % (4-6) 01/15/19 11:53 Calcium 9.1 mg/dL (8.4-10.2) 02/08/19 07:00 Phosphorus 3.10 mg/dL (2.5-4.5) 02/02/19 06:00 Magnesium 1.60 mg/dL (1.7-2.3) L 02/02/19 06:00 0.30 mg/dL (0.1-1.2) 01/23/19 Unknown AST 88 units/L (5-40) H 01/23/19 Unknown ALT 31 units/L (7-56) 01/23/19 Unknown 48 units/L (35-129) 01/23/19 Unknown 1430 units/L (30-135) H 01/15/19 17:52 CK-MB (CK-2) 13.5 ng/mL (0.0-4.0) H 01/15/19 17:52 CK-MB (CK-2) Rel Index 0.9 (0-4) 01/15/19 17:52 0.036 ng/mL (0.00-0.029) H D 01/15/19 17:52 NT-Pro-B Natriuret Pep 5346 pg/mL (0-900) H 01/15/19 07:50 6.0 g/dL (6.3-8.2) L 01/23/19 Unknown 2.9 g/dL (3.9-5) L 01/23/19 Unknown 0.9 % 01/23/19 Unknown Triglycerides 75 mg/dL (2-149) 01/15/19 17:52 Cholesterol 149 mg/dL (50-199) 01/15/19 17:52 84 mg/dL (50-130) 01/15/19 17:52 65 mg/dL (40-59) H 01/15/19 17:52 2.29 % 01/15/19 17:52 See scanned report 01/19/19 Unknown Yellow (Yellow) 01/21/19 16:10 Clear (Clear) 01/21/19 16:10 6.0 (5.0-7.0) 01/21/19 16:10 Ur Specific [place] 1.015 (1.003-1.030) 01/21/19 16:10 <15 mg/dl mg/dL (Negative) 01/21/19 16:10 Neg mg/dL (Negative) 01/21/19 16:10 Neg mg/dL (Negative) 01/21/19 16:10 Neg (Negative) 01/21/19 16:10 Neg (Negative) 01/21/19 16:10 Neg (Negative) 01/21/19 16:10 2.0 mg/dL (<2.0) 01/21/19 16:10 Ur Leukocyte Esterase Neg (Negative) 01/21/19 16:10 1.0 /HPF (0.0-6.0) 01/21/19 16:10 5.0 /HPF (0.0-6.0) 01/21/19 16:10 Presumptive negative 01/15/19 16:30 Presumptive negative 01/15/19 16:30 Ur Barbiturates Screen Presumptive negative 01/15/19 16:30 Ur Phencyclidine Scrn Presumptive negative 01/15/19 16:30 Ur Amphetamines Screen Presumptive negative 01/15/19 16:30 U Benzodiazepines Scrn Presumptive negative 01/15/19 16:30 Presumptive negative 01/15/19 16:30 U Marijuana (THC) Screen Presumptive negative 01/15/19 16:30 Disclamer 01/15/19 16:30 Heparin-induced Plt Ab Negative (Negative) 01/19/19 Unknown UF Heparin High Dose 3 % Release 01/19/19 Unknown JOSEFA UFH Low Dose 0.1 4 % Release 01/19/19 Unknown JOSEFA UFH Low Dose 0.5 5 % Release 01/19/19 Unknown C. difficile Tox (PCR) Negative (Negative) 01/16/19 00:00 Active Medications - Current Medications Current Medications: Generic Name Dose Route Start Last Admin Trade Name Freq PRN Reason Stop Dose Admin Acetaminophen 650 mg 01/16/19 09:37 01/20/19 00:24 Tylenol PO 650 mg Q4H PRN Administration Fever >101 Albuterol/Ipratropium 1 ampul 01/15/19 14:00 02/09/19 09:29 Duoneb *Not For Prn Use* IH 1 ampul Q6HRT DEON Administration Amlodipine Besylate 10 mg 01/24/19 12:00 02/08/19 10:12 Norvasc PO Not Given DAILY [facility] Lipase/Protease/Amylase 1 each 02/02/19 14:21 Pancreazkerry Siddiqui 10,500 Unit FEEDTUBE PRN PRN For Clogged Feeding Tube Aspirin 81 mg 01/16/19 10:00 02/08/19 10:10 Baby Aspirin PO 81 mg QDAY DEON Administration Atorvastatin Calcium 20 mg 01/16/19 22:00 02/08/19 22:22 Lipitor PO 20 mg QHS DEON Administration Carvedilol 12.5 mg 01/24/19 22:00 02/08/19 22:22 Coreg PO 12.5 mg BID DEON Administration Enoxaparin Sodium 40 mg 01/30/19 10:00 02/08/19 10:10 Lovenox SUB-Q 40 mg QDAY@1000 DEON Administration Furosemide 20 mg 01/19/19 18:00 02/09/19 05:46 Lasix PO 20 mg 0600,1800 DEON Administration Cefazolin Sodium 2 gm in 20 mls @ 80 mls/hr 02/09/19 14:00 Ancef/Sterile Water 2 Gm/20 Ml IV 02/09/19 14:14 PREOP NR Insulin Human Lispro 0 unit 01/22/19 14:00 02/09/19 05:46 Humalog SUB-Q Not Given Q6HR [facility] Protocol Lansoprazole 30 mg 01/30/19 10:00 02/08/19 22:22 Prevacid Solutab FEEDTUBE 30 mg BID DEON Administration Levetiracetam 750 mg 01/18/19 10:00 02/08/19 22:23 Keppra PO 750 mg BID DEON Administration Metoclopramide HCl 10 mg 02/01/19 14:00 02/09/19 05:46 Reglan IV 10 mg Q8HR DEON Administration Simple Syrup 15 ml 02/02/19 14:21 Simple Syrup FEEDTUBE PRN PRN Hypoglycemia Simple Syrup 30 ml 02/02/19 14:21 Simple Syrup FEEDTUBE PRN PRN Hypoglycemia Sodium Bicarbonate 325 mg 02/02/19 14:21 Sodium Bicarbonate FEEDTUBE PRN PRN For Clogged Feeding Tube Sodium Chloride 10 ml 01/15/19 22:00 02/08/19 22:23 Sodium Chloride Flush Syringe 10 Ml IV 10 ml BID DEON Administration Sodium Chloride 10 ml 01/15/19 10:34 02/08/19 06:35 Sodium Chloride Flush Syringe 10 Ml IV 10 ml PRN PRN Administration LINE FLUSH Triamcinolone Acetonide 1 applic 01/24/19 14:00 02/08/19 22:23 Kenalog TP 1 applic BID DEON Administration Nutrition/Malnutrition Assess - Dietary Evaluation Nutrition/Malnutrition Findings: Nutrition Notes Start: 01/15/19 14: 28 Freq: Status: Active Protocol: Document 02/05/19 14:19 RM (Rec: 02/05/19 14:26 RM [id number]) Nutrition Notes Initial or Follow up Reassessment Current Diagnosis Acute Kidney Injury,Heart Failure,Respiratory Failure Other Pertinent Diagnosis dysphagia, s/p cardiorespiratory arrest (at home), Aspiration Pneu Current Diet Glucerna 1.2 at 50 ml/hr Labs/Tests Na 138 Pertinent Medications Lasix Height 5 ft 4 in Weight 47.7 kg [place] Body Weight (kg) 54.54 BMI 18.0 Subjective/Other Information Observed Glucerna 1.2 infusing at 50 ml/hr. Pt is tolerating TF per nurse. Percent of energy/protein needs met: 86%/100% Burn Absent Trauma Absent #1 Nutrition Diagnosis Inadequate oral intake Diagnosis Progress(for reassessment Continues documentation) Is patient on ventilator? No Is Patient Ambulatory and/or Out of Bed No REE-([facility]-confined to bed) 1155.024 Kcal/Kg value to use for calculation 35 Approximate Energy Requirements Using 1670 kcal/Kg Calculation Used for Recommendations Kcal/kg Additional Notes Pro needs 1-1.2g/k-57g/day Fluid needs 1ml/kcal Nutrition Intervention Nutrition Support: Glucerna 1.2 at 50ml/hr with 80ml water flush q4h. Kcal 1,440 Protein (gm) 72 Carbohydrates (gm) 137 Fluid (mL) 966 Fiber (gm) 19 Goal #1 Continue to meet at least 75% of calorie and protein needs via TF Goal #2 Wt maintenance and/or gain Follow-Up By: 02/13/19 Additional Comments Follow for TF tolerance
--- NOTE | 2019-02-09 11:06 | Event Note ---
Date: 02/09/19 Laparoscopic assisted G tube placement scheduled for today. Patient chart reviewed and no acute changes. TF held since midnight last night. Consent obtained from POA/granddaughter Mrs. Mason after all risks, benefits, and alternatives to surgery were discussed. All questions answered. Dr. De Oliveira notified.
[2019-02-09] MEDS: LOVENOX SUB-Q SCH (11:23)
[2019-02-09] MEDS: KENALOG TP SCH ×2 (11:24→21:58)
[2019-02-09] MEDS: PREVACID SOLUTAB FEEDTUBE SCH ×2 (11:24→21:59)
[2019-02-09] MEDS: COREG PO SCH ×2 (11:24→21:58)
[2019-02-09] MEDS: BABY ASPIRIN PO SCH (11:24)
[2019-02-09] MEDS: KEPPRA PO SCH ×2 (11:24→21:58)
[2019-02-09] MEDS: NORVASC PO SCH (11:25)
[2019-02-09] MEDS: SODIUM CHLORIDE FLUSH SYRINGE 10 ML IV SCH ×2 (11:25→21:59)
--- NOTE | 2019-02-09 11:28 | Progress Note ---
Assessment and Plan s/p Cardiopulmonary arrest, out of hospital, PEA with ROSC Acute hypoxic-hypercapnic respiratory failure on MVS Acute encephalopathy, metabolic Acute metabolic acidosis Acute renal injury Seizure activity Right lower lobe infiltrate, probably aspiration Pyrexia with leukocytosis Pulmonary HTN RVSP 60 Systolic heart failure EF 35-40% Thrombocytopenia, resolved Pyrexia PEG placement to facilitate discharge planning- scheduled for today Continue with ATC as tolerated Continue small bowel feeding, on hold for procedure Wean supplemental oxygen to keep O2 sats 88-90% Trach care, secretion management, airway clearance -PRN ABGs/CXR -Avoid nephrotoxic agents, -Stress ulcer prophylaxis -Aspiration precautions -Accuchecks with glycemic control. Target glucose of 140-180 mg/dL -Bronchodilators with pulmonary hygiene per RT -Mobility as tolerated by hemodynamics -Influenza and pneumonia vaccination per protocol -Care plan discussed with hospitalist service Updated grand daughter at the bedside PROGNOSIS:poor CONDITION: FAIR CODE STATUS: FULL CODE Subjective Date of service: 02/09/19 Principal diagnosis: OOH cardiac arrest; Acute hypoxemic-hypercapnic Resp failure; PNA Interval history: Patient is seen today for: OOH cardiopulmonary arrest with ROSC; Acute hypoxemic-hypercapnic respiratory failure s/p MVS; acute encephalopathy; aspiration pneumonia; s/p tracheostomy; ileus Seen and examined at bedside; 24-hour events reviewed; nursing and respiratory care staff consulted; no adverse overnight events reported to me; no fevers, no vomiting, no fevers, tolerating ATP , off MVS, Persistent encephalopathy, scheduled for surgical PEG placementthis afternoon Grand-daughter at the bedside Objective Vital Signs - 12hr 02/08/19 02/09/19 02/09/19 23:34 02:34 02:40 Temperature 98.3 F Pulse Rate 87 Pulse Rate [ 86 88 Anterior Bilateral Throughout] Respiratory 18 Rate Respiratory 18 18 Rate [Anterior Bilateral Throughout] Blood Pressure 112/69 O2 Sat by Pulse 100 Oximetry 02/09/19 02/09/19 02/09/19 04:00 04:06 07:32 Temperature 98.2 F 97.4 F L Pulse Rate 89 87 82 Pulse Rate [ Anterior Bilateral Throughout] Respiratory 19 16 Rate Respiratory Rate [Anterior Bilateral Throughout] Blood Pressure 106/67 121/68 O2 Sat by Pulse 100 86 Oximetry Constitutional: no acute distress, asleep, other (elderly, atraumatic, normocephalic, chronically looking female) Eyes: non-icteric ENT: oropharynx moist, other (s/p tracheostomy) Neck: supple, no lymphadenopathy, no JVD Effort: normal Ascultation: Bilateral: diminished breath sounds, rales (bases), rhonchi (s cant), other (coarse breath sound bilaterally upper lobes anteriorly) Percussion: Bilateral: not dull Cardiovascular: regular rate and rhythm, other (tacycardia, S1,S2, no murmurs, gallops or rubs) Gastrointestinal: normoactive bowel sounds, soft, non-tender, non-distended Integumentary: normal Extremities: no cyanosis, no edema, pulses normal, no ischemia or petechiae Neurologic: unable to assess Psychiatric: other (unable to assess secondary to mental status) CBC and BMP: 02/08/19 07:00 02/08/19 07:00 ABG, PT/INR, D-dimer: ABG POC ABG pH 7.508 (7.35-7.45) H 01/30/19 16:47 POC ABG pCO2 31.5 (35-45) L 01/30/19 16:47 POC ABG pO2 135 (80-105) H 01/30/19 16:47 POC ABG HCO3 25.0 (22-26 mml/L) 01/30/19 16:47 POC ABG Total CO2 26 (23-27mmol/L) 01/30/19 16:47 POC ABG O2 Sat 99 01/30/19 16:47 PT/INR, D-dimer PT 18.8 Sec. (12.2-14.9) H 01/25/19 05:15 INR 1.47 (0.87-1.13) H 01/25/19 05:15 Abnormal lab findings: Abnormal Labs 01/15/19 01/15/19 01/15/19 07:50 07:50 07:50 WBC RBC Hgb Hct MCV 99 H RDW 16.7 H Plt Count 122 L Lymph % (Auto) [place] % (Auto) Lymph # Seg Neutrophils % Seg Neuts % (Manual) Lymphocytes % (Manual) Seg Neutrophils # Seg Neutrophils # Man Lymphocytes # (Manual) PT 19.7 H INR 1.56 H POC ABG pH POC ABG pCO2 POC ABG pO2 Sodium Potassium Chloride Carbon Dioxide 11 L BUN Creatinine 1.4 H Glucose 268 H POC Glucose Calcium Magnesium AST 57 H Total Creatine Kinase CK-MB (CK-2) Troponin T NT-Pro-B Natriuret Pep 5346 H Total Protein Albumin 3.6 L HDL Cholesterol 01/15/19 01/15/19 01/15/19 09:56 11:53 17:52 WBC RBC Hgb Hct MCV RDW Plt Count Lymph % (Auto) [place] % (Auto) Lymph # Seg Neutrophils % Seg Neuts % (Manual) Lymphocytes % (Manual) Seg Neutrophils # Seg Neutrophils # Man Lymphocytes # (Manual) PT INR POC ABG pH 7.186 L POC ABG pCO2 46.4 H POC ABG pO2 Sodium Potassium Chloride Carbon Dioxide BUN Creatinine Glucose POC Glucose Calcium Magnesium AST Total Creatine Kinase 683 H 1430 H CK-MB (CK-2) 9.5 H 13.5 H Troponin T 0.036 H D NT-Pro-B Natriuret Pep Total Protein Albumin HDL Cholesterol 65 H 01/15/19 01/15/19 01/16/19 18:31 21:46 02:14 WBC RBC Hgb Hct MCV RDW Plt Count Lymph % (Auto) [place] % (Auto) Lymph # Seg Neutrophils % Seg Neuts % (Manual) Lymphocytes % (Manual) Seg Neutrophils # Seg Neutrophils # Man Lymphocytes # (Manual) PT INR POC ABG pH POC ABG pCO2 31.8 L POC ABG pO2 167 H Sodium Potassium Chloride Carbon Dioxide BUN Creatinine Glucose POC Glucose 134 H 136 H Calcium Magnesium AST Total Creatine Kinase CK-MB (CK-2) Troponin T NT-Pro-B Natriuret Pep Total Protein Albumin HDL Cholesterol 01/16/19 01/16/19 01/16/19 04:16 04:16 05:05 WBC 11.4 H RBC Hgb Hct MCV RDW Plt Count 105 L Lymph % (Auto) [place] % (Auto) Lymph # Seg Neutrophils % Seg Neuts % (Manual) 74.0 H Lymphocytes % (Manual) 2.0 L Seg Neutrophils # Seg Neutrophils # Man 8.4 H Lymphocytes # (Manual) 0.2 L PT INR POC ABG pH 7.458 H POC ABG pCO2 31.4 L POC ABG pO2 135 H Sodium Potassium 3.3 L Chloride Carbon Dioxide 21 L D BUN 24 H Creatinine 1.5 H Glucose 141 H POC Glucose Calcium 8.1 L Magnesium AST 71 H Total Creatine Kinase CK-MB (CK-2) Troponin T NT-Pro-B Natriuret Pep Total Protein 6.2 L Albumin 3.5 L HDL Cholesterol 01/16/19 01/16/19 01/16/19 05:24 13:42 21:08 WBC RBC Hgb Hct MCV RDW Plt Count Lymph % (Auto) [place] % (Auto) Lymph # Seg Neutrophils % Seg Neuts % (Manual) Lymphocytes % (Manual) Seg Neutrophils # Seg Neutrophils # Man Lymphocytes # (Manual) PT INR POC ABG pH POC ABG pCO2 POC ABG pO2 Sodium Potassium Chloride Carbon Dioxide BUN Creatinine Glucose POC Glucose 137 H 129 H 122 H Calcium Magnesium AST Total Creatine Kinase CK-MB (CK-2) Troponin T NT-Pro-B Natriuret Pep Total Protein Albumin HDL Cholesterol 01/17/19 01/17/19 01/17/19 02:18 04:23 05:13 WBC RBC Hgb Hct MCV RDW Plt Count Lymph % (Auto) [place] % (Auto) Lymph # Seg Neutrophils % Seg Neuts % (Manual) Lymphocytes % (Manual) Seg Neutrophils # Seg Neutrophils # Man Lymphocytes # (Manual) PT INR POC ABG pH 7.479 H POC ABG pCO2 30.0 L POC ABG pO2 141 H Sodium Potassium Chloride Carbon Dioxide BUN Creatinine Glucose POC Glucose 139 H 128 H Calcium Magnesium AST Total Creatine Kinase CK-MB (CK-2) Troponin T NT-Pro-B Natriuret Pep Total Protein Albumin HDL Cholesterol 01/17/19 01/17/19 01/17/19 10:22 15:59 18:45 WBC RBC Hgb Hct MCV RDW Plt Count Lymph % (Auto) [place] % (Auto) Lymph # Seg Neutrophils % Seg Neuts % (Manual) Lymphocytes % (Manual) Seg Neutrophils # Seg Neutrophils # Man Lymphocytes # (Manual) PT INR POC ABG pH POC ABG pCO2 POC ABG pO2 Sodium Potassium Chloride Carbon Dioxide BUN Creatinine Glucose POC Glucose 133 H 121 H 106 H Calcium Magnesium AST Total Creatine Kinase CK-MB (CK-2) Troponin T NT-Pro-B Natriuret Pep Total Protein Albumin HDL Cholesterol 01/17/19 01/18/19 01/18/19 23:35 04:21 04:21 WBC RBC 3.27 L Hgb 9.6 L Hct 29.9 L MCV RDW Plt Count 79 L Lymph % (Auto) 6.0 L [place] % (Auto) Lymph # 0.5 L Seg Neutrophils % 89.2 H Seg Neuts % (Manual) Lymphocytes % (Manual) Seg Neutrophils # 8.1 H Seg Neutrophils # Man Lymphocytes # (Manual) PT INR POC ABG pH POC ABG pCO2 POC ABG pO2 Sodium Potassium Chloride Carbon Dioxide BUN 28 H Creatinine 1.3 H Glucose 129 H POC Glucose 121 H Calcium Magnesium AST 120 H Total Creatine Kinase CK-MB (CK-2) Troponin T NT-Pro-B Natriuret Pep Total Protein 5.1 L Albumin 3.0 L HDL Cholesterol 01/18/19 01/18/19 01/18/19 04:21 04:36 05:43 WBC RBC Hgb Hct MCV RDW Plt Count Lymph % (Auto) [place] % (Auto) Lymph # Seg Neutrophils % Seg Neuts % (Manual) Lymphocytes % (Manual) Seg Neutrophils # Seg Neutrophils # Man Lymphocytes # (Manual) PT INR POC ABG pH 7.485 H POC ABG pCO2 31.0 L POC ABG pO2 126 H Sodium Potassium Chloride Carbon Dioxide BUN 28 H Creatinine 1.3 H Glucose 128 H POC Glucose 142 H Calcium Magnesium AST Total Creatine Kinase CK-MB (CK-2) Troponin T NT-Pro-B Natriuret Pep Total Protein Albumin HDL Cholesterol 01/18/19 01/18/19 01/18/19 12:04 18:16 20:47 WBC RBC Hgb Hct MCV RDW Plt Count Lymph % (Auto) [place] % (Auto) Lymph # Seg Neutrophils % Seg Neuts % (Manual) Lymphocytes % (Manual) Seg Neutrophils # Seg Neutrophils # Man Lymphocytes # (Manual) PT INR POC ABG pH 7.489 H POC ABG pCO2 32.8 L POC ABG pO2 Sodium Potassium Chloride Carbon Dioxide BUN Creatinine Glucose POC Glucose 113 H 119 H Calcium Magnesium AST Total Creatine Kinase CK-MB (CK-2) Troponin T NT-Pro-B Natriuret Pep Total Protein Albumin HDL Cholesterol 01/19/19 01/19/19 01/19/19 00:40 05:35 11:39 WBC RBC Hgb Hct MCV RDW Plt Count Lymph % (Auto) [place] % (Auto) Lymph # Seg Neutrophils % Seg Neuts % (Manual) Lymphocytes % (Manual) Seg Neutrophils # Seg Neutrophils # Man Lymphocytes # (Manual) PT INR POC ABG pH POC ABG pCO2 POC ABG pO2 Sodium Potassium Chloride Carbon Dioxide BUN Creatinine Glucose POC Glucose 137 H 157 H 155 H Calcium Magnesium AST Total Creatine Kinase CK-MB (CK-2) Troponin T NT-Pro-B Natriuret Pep Total Protein Albumin HDL Cholesterol 01/19/19 01/19/19 01/19/19 18:24 21:08 23:33 WBC RBC Hgb Hct MCV RDW Plt Count Lymph % (Auto) [place] % (Auto) Lymph # Seg Neutrophils % Seg Neuts % (Manual) Lymphocytes % (Manual) Seg Neutrophils # Seg Neutrophils # Man Lymphocytes # (Manual) PT INR POC ABG pH 7.508 H POC ABG pCO2 34.2 L POC ABG pO2 Sodium Potassium Chloride Carbon Dioxide BUN Creatinine Glucose POC Glucose 145 H 156 H Calcium Magnesium AST Total Creatine Kinase CK-MB (CK-2) Troponin T NT-Pro-B Natriuret Pep Total Protein Albumin HDL Cholesterol 01/20/19 01/20/19 01/20/19 05:12 11:42 17:36 WBC RBC Hgb Hct MCV RDW Plt Count Lymph % (Auto) [place] % (Auto) Lymph # Seg Neutrophils % Seg Neuts % (Manual) Lymphocytes % (Manual) Seg Neutrophils # Seg Neutrophils # Man Lymphocytes # (Manual) PT INR POC ABG pH POC ABG pCO2 POC ABG pO2 Sodium Potassium Chloride Carbon Dioxide BUN Creatinine Glucose POC Glucose 152 H 159 H 169 H Calcium Magnesium AST Total Creatine Kinase CK-MB (CK-2) Troponin T NT-Pro-B Natriuret Pep Total Protein Albumin HDL Cholesterol 01/20/19 01/21/19 01/21/19 23:29 05:30 05:34 WBC RBC Hgb Hct MCV RDW Plt Count Lymph % (Auto) [place] % (Auto) Lymph # Seg Neutrophils % Seg Neuts % (Manual) Lymphocytes % (Manual) Seg Neutrophils # Seg Neutrophils # Man Lymphocytes # (Manual) PT INR POC ABG pH 7.616 H POC ABG pCO2 POC ABG pO2 71 L Sodium Potassium Chloride Carbon Dioxide BUN Creatinine Glucose POC Glucose 139 H 138 H Calcium Magnesium AST Total Creatine Kinase CK-MB (CK-2) Troponin T NT-Pro-B Natriuret Pep Total Protein Albumin HDL Cholesterol 01/21/19 01/21/19 01/22/19 12:41 18:47 00:07 WBC RBC Hgb Hct MCV RDW Plt Count Lymph % (Auto) [place] % (Auto) Lymph # Seg Neutrophils % Seg Neuts % (Manual) Lymphocytes % (Manual) Seg Neutrophils # Seg Neutrophils # Man Lymphocytes # (Manual) PT INR POC ABG pH POC ABG pCO2 POC ABG pO2 Sodium Potassium Chloride Carbon Dioxide BUN Creatinine Glucose POC Glucose 154 H 174 H 163 H Calcium Magnesium AST Total Creatine Kinase CK-MB (CK-2) Troponin T NT-Pro-B Natriuret Pep Total Protein Albumin HDL Cholesterol 01/22/19 01/22/19 01/22/19 04:35 05:46 12:18 WBC RBC Hgb Hct MCV RDW Plt Count Lymph % (Auto) [place] % (Auto) Lymph # Seg Neutrophils % Seg Neuts % (Manual) Lymphocytes % (Manual) Seg Neutrophils # Seg Neutrophils # Man Lymphocytes # (Manual) PT INR POC ABG pH 7.522 H POC ABG pCO2 POC ABG pO2 Sodium Potassium Chloride Carbon Dioxide BUN Creatinine Glucose POC Glucose 159 H 137 H Calcium Magnesium AST Total Creatine Kinase CK-MB (CK-2) Troponin T NT-Pro-B Natriuret Pep Total Protein Albumin HDL Cholesterol 01/22/19 01/22/19 01/22/19 15:00 15:00 18:13 WBC RBC 2.92 L Hgb 8.4 L Hct 25.6 L MCV RDW Plt Count Lymph % (Auto) [place] % (Auto) Lymph # Seg Neutrophils % Seg Neuts % (Manual) Lymphocytes % (Manual) Seg Neutrophils # Seg Neutrophils # Man Lymphocytes # (Manual) PT INR POC ABG pH POC ABG pCO2 POC ABG pO2 Sodium Potassium Chloride 97.0 L Carbon Dioxide BUN 37 H Creatinine Glucose 162 H POC Glucose 159 H Calcium 8.2 L Magnesium AST Total Creatine Kinase CK-MB (CK-2) Troponin T NT-Pro-B Natriuret Pep Total Protein Albumin HDL Cholesterol 01/22/19 01/23/19 01/23/19 22:45 00:01 05:10 WBC RBC 2.92 L Hgb 8.5 L Hct 25.4 L MCV RDW Plt Count Lymph % (Auto) 6.3 L [place] % (Auto) Lymph # 0.6 L Seg Neutrophils % 86.3 H Seg Neuts % (Manual) Lymphocytes % (Manual) Seg Neutrophils # 8.9 H Seg Neutrophils # Man Lymphocytes # (Manual) PT INR POC ABG pH POC ABG pCO2 POC ABG pO2 Sodium Potassium Chloride Carbon Dioxide BUN Creatinine Glucose POC Glucose 178 H 155 H Calcium Magnesium AST Total Creatine Kinase CK-MB (CK-2) Troponin T NT-Pro-B Natriuret Pep Total Protein Albumin HDL Cholesterol 01/23/19 01/23/19 01/23/19 11:31 17:49 Unknown WBC RBC Hgb Hct MCV RDW Plt Count Lymph % (Auto) [place] % (Auto) Lymph # Seg Neutrophils % Seg Neuts % (Manual) Lymphocytes % (Manual) Seg Neutrophils # Seg Neutrophils # Man Lymphocytes # (Manual) PT INR POC ABG pH POC ABG pCO2 POC ABG pO2 Sodium Potassium Chloride 95.4 L Carbon Dioxide BUN 37 H Creatinine Glucose 144 H POC Glucose 161 H 142 H Calcium Magnesium AST 88 H Total Creatine Kinase CK-MB (CK-2) Troponin T NT-Pro-B Natriuret Pep Total Protein 6.0 L Albumin 2.9 L HDL Cholesterol 01/24/19 01/24/19 01/24/19 00:21 05:36 12:35 WBC RBC Hgb Hct MCV RDW Plt Count Lymph % (Auto) [place] % (Auto) Lymph # Seg Neutrophils % Seg Neuts % (Manual) Lymphocytes % (Manual) Seg Neutrophils # Seg Neutrophils # Man Lymphocytes # (Manual) PT INR POC ABG pH POC ABG pCO2 POC ABG pO2 Sodium Potassium Chloride Carbon Dioxide BUN Creatinine Glucose POC Glucose 163 H 147 H 263 H Calcium Magnesium AST Total Creatine Kinase CK-MB (CK-2) Troponin T NT-Pro-B Natriuret Pep Total Protein Albumin HDL Cholesterol 01/24/19 01/24/19 01/24/19 17:46 23:07 Unknown WBC RBC 2.90 L Hgb 8.3 L Hct 25.0 L MCV RDW Plt Count Lymph % (Auto) [place] % (Auto) Lymph # Seg Neutrophils % Seg Neuts % (Manual) Lymphocytes % (Manual) Seg Neutrophils # Seg Neutrophils # Man Lymphocytes # (Manual) PT INR POC ABG pH POC ABG pCO2 POC ABG pO2 Sodium Potassium Chloride Carbon Dioxide BUN Creatinine Glucose POC Glucose 161 H 167 H Calcium Magnesium AST Total Creatine Kinase CK-MB (CK-2) Troponin T NT-Pro-B Natriuret Pep Total Protein Albumin HDL Cholesterol 01/24/19 01/25/19 01/25/19 Unknown 05:15 05:15 WBC RBC 2.90 L Hgb 8.4 L Hct 25.2 L MCV RDW Plt Count Lymph % (Auto) [place] % (Auto) Lymph # Seg Neutrophils % Seg Neuts % (Manual) Lymphocytes % (Manual) Seg Neutrophils # Seg Neutrophils # Man Lymphocytes # (Manual) PT INR POC ABG pH POC ABG pCO2 POC ABG pO2 Sodium 134 L 135 L Potassium Chloride 94.4 L 94.0 L Carbon Dioxide BUN 35 H 35 H Creatinine Glucose 151 H 128 H POC Glucose Calcium Magnesium AST Total Creatine Kinase CK-MB (CK-2) Troponin T NT-Pro-B Natriuret Pep Total Protein Albumin HDL Cholesterol 01/25/19 01/25/19 01/25/19 05:15 05:35 11:09 WBC RBC Hgb Hct MCV RDW Plt Count Lymph % (Auto) [place] % (Auto) Lymph # Seg Neutrophils % Seg Neuts % (Manual) Lymphocytes % (Manual) Seg Neutrophils # Seg Neutrophils # Man Lymphocytes # (Manual) PT 18.8 H INR 1.47 H POC ABG pH POC ABG pCO2 POC ABG pO2 Sodium Potassium Chloride Carbon Dioxide BUN Creatinine Glucose POC Glucose 126 H 149 H Calcium Magnesium AST Total Creatine Kinase CK-MB (CK-2) Troponin T NT-Pro-B Natriuret Pep Total Protein Albumin HDL Cholesterol 01/25/19 01/25/19 01/26/19 17:24 23:41 00:09 WBC RBC Hgb Hct MCV RDW Plt Count Lymph % (Auto) [place] % (Auto) Lymph # Seg Neutrophils % Seg Neuts % (Manual) Lymphocytes % (Manual) Seg Neutrophils # Seg Neutrophils # Man Lymphocytes # (Manual) PT INR POC ABG pH POC ABG pCO2 POC ABG pO2 Sodium Potassium Chloride Carbon Dioxide BUN Creatinine Glucose POC Glucose 140 H 142 H 156 H Calcium Magnesium AST Total Creatine Kinase CK-MB (CK-2) Troponin T NT-Pro-B Natriuret Pep Total Protein Albumin HDL Cholesterol 01/26/19 01/26/19 01/26/19 05:05 06:35 06:35 WBC RBC 2.83 L Hgb 8.1 L Hct 24.4 L MCV RDW Plt Count Lymph % (Auto) [place] % (Auto) Lymph # Seg Neutrophils % Seg Neuts % (Manual) Lymphocytes % (Manual) Seg Neutrophils # Seg Neutrophils # Man Lymphocytes # (Manual) PT INR POC ABG pH POC ABG pCO2 POC ABG pO2 Sodium Potassium Chloride 96.9 L Carbon Dioxide BUN 29 H Creatinine Glucose 141 H POC Glucose 159 H Calcium 8.3 L Magnesium AST Total Creatine Kinase CK-MB (CK-2) Troponin T NT-Pro-B Natriuret Pep Total Protein Albumin HDL Cholesterol 01/26/19 01/26/19 01/27/19 13:16 19:10 00:08 WBC RBC Hgb Hct MCV RDW Plt Count Lymph % (Auto) [place] % (Auto) Lymph # Seg Neutrophils % Seg Neuts % (Manual) Lymphocytes % (Manual) Seg Neutrophils # Seg Neutrophils # Man Lymphocytes # (Manual) PT INR POC ABG pH POC ABG pCO2 POC ABG pO2 Sodium Potassium Chloride Carbon Dioxide BUN Creatinine Glucose POC Glucose 159 H 146 H 140 H Calcium Magnesium AST Total Creatine Kinase CK-MB (CK-2) Troponin T NT-Pro-B Natriuret Pep Total Protein Albumin HDL Cholesterol 01/27/19 01/27/19 01/27/19 03:30 03:30 06:23 WBC RBC 2.85 L Hgb 8.3 L Hct 24.8 L MCV RDW Plt Count Lymph % (Auto) [place] % (Auto) Lymph # Seg Neutrophils % Seg Neuts % (Manual) Lymphocytes % (Manual) Seg Neutrophils # Seg Neutrophils # Man Lymphocytes # (Manual) PT INR POC ABG pH POC ABG pCO2 POC ABG pO2 Sodium 136 L Potassium Chloride 97.1 L Carbon Dioxide BUN 26 H Creatinine Glucose 129 H POC Glucose 154 H Calcium Magnesium AST Total Creatine Kinase CK-MB (CK-2) Troponin T NT-Pro-B Natriuret Pep Total Protein Albumin HDL Cholesterol 01/27/19 01/27/19 01/27/19 12:47 17:43 23:31 WBC RBC Hgb Hct MCV RDW Plt Count Lymph % (Auto) [place] % (Auto) Lymph # Seg Neutrophils % Seg Neuts % (Manual) Lymphocytes % (Manual) Seg Neutrophils # Seg Neutrophils # Man Lymphocytes # (Manual) PT INR POC ABG pH POC ABG pCO2 POC ABG pO2 Sodium Potassium Chloride Carbon Dioxide BUN Creatinine Glucose POC Glucose 159 H 180 H 164 H Calcium Magnesium AST Total Creatine Kinase CK-MB (CK-2) Troponin T NT-Pro-B Natriuret Pep Total Protein Albumin HDL Cholesterol 01/28/19 01/28/19 01/28/19 04:35 12:01 12:01 WBC RBC 2.67 L Hgb 7.9 L Hct 22.9 L MCV RDW Plt Count Lymph % (Auto) [place] % (Auto) Lymph # Seg Neutrophils % Seg Neuts % (Manual) Lymphocytes % (Manual) Seg Neutrophils # Seg Neutrophils # Man Lymphocytes # (Manual) PT INR POC ABG pH POC ABG pCO2 POC ABG pO2 Sodium 136 L Potassium 3.5 L Chloride Carbon Dioxide BUN 18 H Creatinine Glucose 143 H POC Glucose 139 H Calcium 8.0 L Magnesium AST Total Creatine Kinase CK-MB (CK-2) Troponin T NT-Pro-B Natriuret Pep Total Protein Albumin HDL Cholesterol 01/28/19 01/28/19 01/28/19 12:04 16:59 17:11 WBC RBC Hgb Hct MCV RDW Plt Count Lymph % (Auto) [place] % (Auto) Lymph # Seg Neutrophils % Seg Neuts % (Manual) Lymphocytes % (Manual) Seg Neutrophils # Seg Neutrophils # Man Lymphocytes # (Manual) PT INR POC ABG pH 7.488 H POC ABG pCO2 34.1 L POC ABG pO2 Sodium Potassium Chloride Carbon Dioxide BUN Creatinine Glucose POC Glucose 143 H 163 H Calcium Magnesium AST Total Creatine Kinase CK-MB (CK-2) Troponin T NT-Pro-B Natriuret Pep Total Protein Albumin HDL Cholesterol 01/29/19 01/29/19 01/29/19 00:10 05:47 12:08 WBC RBC Hgb Hct MCV RDW Plt Count Lymph % (Auto) [place] % (Auto) Lymph # Seg Neutrophils % Seg Neuts % (Manual) Lymphocytes % (Manual) Seg Neutrophils # Seg Neutrophils # Man Lymphocytes # (Manual) PT INR POC ABG pH POC ABG pCO2 POC ABG pO2 Sodium Potassium Chloride Carbon Dioxide BUN Creatinine Glucose POC Glucose 171 H 187 H 137 H Calcium Magnesium AST Total Creatine Kinase CK-MB (CK-2) Troponin T NT-Pro-B Natriuret Pep Total Protein Albumin HDL Cholesterol 01/29/19 01/29/19 01/29/19 16:48 16:54 17:47 WBC RBC Hgb Hct MCV RDW Plt Count Lymph % (Auto) [place] % (Auto) Lymph # Seg Neutrophils % Seg Neuts % (Manual) Lymphocytes % (Manual) Seg Neutrophils # Seg Neutrophils # Man Lymphocytes # (Manual) PT INR POC ABG pH 7.486 H 7.512 H POC ABG pCO2 32.8 L 32.7 L POC ABG pO2 108 H Sodium Potassium Chloride Carbon Dioxide BUN Creatinine Glucose POC Glucose 156 H Calcium Magnesium AST Total Creatine Kinase CK-MB (CK-2) Troponin T NT-Pro-B Natriuret Pep Total Protein Albumin HDL Cholesterol 01/29/19 01/30/19 01/30/19 23:48 06:45 07:18 WBC RBC 2.94 L Hgb 8.6 L Hct 25.7 L MCV RDW Plt Count Lymph % (Auto) [place] % (Auto) Lymph # Seg Neutrophils % Seg Neuts % (Manual) Lymphocytes % (Manual) Seg Neutrophils # Seg Neutrophils # Man Lymphocytes # (Manual) PT INR POC ABG pH POC ABG pCO2 POC ABG pO2 Sodium 135 L Potassium Chloride Carbon Dioxide BUN Creatinine Glucose 141 H POC Glucose 185 H Calcium 8.3 L Magnesium AST Total Creatine Kinase CK-MB (CK-2) Troponin T NT-Pro-B Natriuret Pep Total Protein Albumin HDL Cholesterol 01/30/19 01/30/19 01/30/19 11:17 16:47 18:16 WBC RBC Hgb Hct MCV RDW Plt Count Lymph % (Auto) [place] % (Auto) Lymph # Seg Neutrophils % Seg Neuts % (Manual) Lymphocytes % (Manual) Seg Neutrophils # Seg Neutrophils # Man Lymphocytes # (Manual) PT INR POC ABG pH 7.508 H POC ABG pCO2 31.5 L POC ABG pO2 135 H Sodium Potassium Chloride Carbon Dioxide BUN Creatinine Glucose POC Glucose 170 H 108 H Calcium Magnesium AST Total Creatine Kinase CK-MB (CK-2) Troponin T NT-Pro-B Natriuret Pep Total Protein Albumin HDL Cholesterol 01/30/19 01/31/19 01/31/19 23:38 05:45 12:04 WBC RBC Hgb Hct MCV RDW Plt Count Lymph % (Auto) [place] % (Auto) Lymph # Seg Neutrophils % Seg Neuts % (Manual) Lymphocytes % (Manual) Seg Neutrophils # Seg Neutrophils # Man Lymphocytes # (Manual) PT INR POC ABG pH POC ABG pCO2 POC ABG pO2 Sodium Potassium Chloride Carbon Dioxide BUN Creatinine Glucose POC Glucose 146 H 121 H 152 H Calcium Magnesium AST Total Creatine Kinase CK-MB (CK-2) Troponin T NT-Pro-B Natriuret Pep Total Protein Albumin HDL Cholesterol 01/31/19 01/31/19 02/01/19 17:44 23:58 05:46 WBC RBC Hgb Hct MCV RDW Plt Count Lymph % (Auto) [place] % (Auto) Lymph # Seg Neutrophils % Seg Neuts % (Manual) Lymphocytes % (Manual) Seg Neutrophils # Seg Neutrophils # Man Lymphocytes # (Manual) PT INR POC ABG pH POC ABG pCO2 POC ABG pO2 Sodium Potassium Chloride Carbon Dioxide BUN Creatinine Glucose POC Glucose 153 H 183 H 116 H Calcium Magnesium AST Total Creatine Kinase CK-MB (CK-2) Troponin T NT-Pro-B Natriuret Pep Total Protein Albumin HDL Cholesterol 02/01/19 02/01/19 02/01/19 11:10 12:18 17:48 WBC RBC Hgb Hct MCV RDW Plt Count Lymph % (Auto) [place] % (Auto) Lymph # Seg Neutrophils % Seg Neuts % (Manual) Lymphocytes % (Manual) Seg Neutrophils # Seg Neutrophils # Man Lymphocytes # (Manual) PT INR POC ABG pH POC ABG pCO2 POC ABG pO2 Sodium 133 L Potassium 3.3 L Chloride 96.1 L Carbon Dioxide BUN Creatinine Glucose 145 H POC Glucose 175 H 129 H Calcium 8.3 L Magnesium AST Total Creatine Kinase CK-MB (CK-2) Troponin T NT-Pro-B Natriuret Pep Total Protein Albumin HDL Cholesterol 02/01/19 02/02/19 02/02/19 23:13 05:16 06:00 WBC RBC Hgb Hct MCV RDW Plt Count Lymph % (Auto) [place] % (Auto) Lymph # Seg Neutrophils % Seg Neuts % (Manual) Lymphocytes % (Manual) Seg Neutrophils # Seg Neutrophils # Man Lymphocytes # (Manual) PT INR POC ABG pH POC ABG pCO2 POC ABG pO2 Sodium 135 L Potassium Chloride Carbon Dioxide BUN 18 H Creatinine Glucose 121 H POC Glucose 143 H 140 H Calcium 8.3 L Magnesium 1.60 L AST Total Creatine Kinase CK-MB (CK-2) Troponin T NT-Pro-B Natriuret Pep Total Protein Albumin HDL Cholesterol 02/02/19 02/02/19 02/02/19 12:06 18:23 23:45 WBC RBC Hgb Hct MCV RDW Plt Count Lymph % (Auto) [place] % (Auto) Lymph # Seg Neutrophils % Seg Neuts % (Manual) Lymphocytes % (Manual) Seg Neutrophils # Seg Neutrophils # Man Lymphocytes # (Manual) PT INR POC ABG pH POC ABG pCO2 POC ABG pO2 Sodium Potassium Chloride Carbon Dioxide BUN Creatinine Glucose POC Glucose 156 H 159 H 139 H Calcium Magnesium AST Total Creatine Kinase CK-MB (CK-2) Troponin T NT-Pro-B Natriuret Pep Total Protein Albumin HDL Cholesterol 0502/03/19 02/03/19 05:19 12:02 17:24 WBC RBC Hgb Hct MCV RDW Plt Count Lymph % (Auto) [place]wey % (Auto) Lymph # Seg Neutrophils % Seg Neuts % (Manual) Lymphocytes % (Manual) Seg Neutrophils # Seg Neutrophils # Man Lymphocytes # (Manual) PT INR POC ABG pH POC ABG pCO2 POC ABG pO2 Sodium Potassium Chloride Carbon Dioxide BUN Creatinine Glucose POC Glucose 147 H 163 H 144 H Calcium Magnesium AST Total Creatine Kinase CK-MB (CK-2) Troponin T NT-Pro-B Natriuret Pep Total Protein Albumin HDL Cholesterol 02/03/19 02/04/19 02/04/19 23:43 05:30 11:14 WBC RBC 3.00 L Hgb 8.7 L Hct 25.9 L MCV RDW Plt Count Lymph % (Auto) 11.5 L [place] % (Auto) 7.5 H Lymph # 0.8 L Seg Neutrophils % 79.6 H Seg Neuts % (Manual) Lymphocytes % (Manual) Seg Neutrophils # Seg Neutrophils # Man Lymphocytes # (Manual) PT INR POC ABG pH POC ABG pCO2 POC ABG pO2 Sodium Potassium Chloride Carbon Dioxide BUN Creatinine Glucose POC Glucose 131 H 145 H Calcium Magnesium AST Total Creatine Kinase CK-MB (CK-2) Troponin T NT-Pro-B Natriuret Pep Total Protein Albumin HDL Cholesterol 02/04/19 02/04/19 02/04/19 11:14 12:09 17:37 WBC RBC Hgb Hct MCV RDW Plt Count Lymph % (Auto) [place] % (Auto) Lymph # Seg Neutrophils % Seg Neuts % (Manual) Lymphocytes % (Manual) Seg Neutrophils # Seg Neutrophils # Man Lymphocytes # (Manual) PT INR POC ABG pH POC ABG pCO2 POC ABG pO2 Sodium Potassium Chloride 96.5 L Carbon Dioxide BUN 30 H Creatinine Glucose 142 H POC Glucose 149 H 170 H Calcium Magnesium AST Total Creatine Kinase CK-MB (CK-2) Troponin T NT-Pro-B Natriuret Pep Total Protein Albumin HDL Cholesterol 02/04/19 02/05/19 02/05/19 23:33 04:27 04:27 WBC RBC 3.61 L Hgb Hct MCV RDW Plt Count Lymph % (Auto) 12.3 L [place] % (Auto) Lymph # 0.9 L Seg Neutrophils % 79.1 H Seg Neuts % (Manual) Lymphocytes % (Manual) Seg Neutrophils # Seg Neutrophils # Man Lymphocytes # (Manual) PT INR POC ABG pH POC ABG pCO2 POC ABG pO2 Sodium Potassium Chloride 96.0 L Carbon Dioxide BUN 26 H Creatinine Glucose 118 H POC Glucose 182 H Calcium Magnesium AST Total Creatine Kinase CK-MB (CK-2) Troponin T NT-Pro-B Natriuret Pep Total Protein Albumin HDL Cholesterol 02/05/19 02/05/19 02/05/19 05:51 12:37 23:56 WBC RBC Hgb Hct MCV RDW Plt Count Lymph % (Auto) [place] % (Auto) Lymph # Seg Neutrophils % Seg Neuts % (Manual) Lymphocytes % (Manual) Seg Neutrophils # Seg Neutrophils # Man Lymphocytes # (Manual) PT INR POC ABG pH POC ABG pCO2 POC ABG pO2 Sodium Potassium Chloride Carbon Dioxide BUN Creatinine Glucose POC Glucose 162 H 147 H 167 H Calcium Magnesium AST Total Creatine Kinase CK-MB (CK-2) Troponin T NT-Pro-B Natriuret Pep Total Protein Albumin HDL Cholesterol 02/06/19 02/06/19 02/06/19 05:33 12:02 16:42 WBC RBC Hgb Hct MCV RDW Plt Count Lymph % (Auto) [place] % (Auto) Lymph # Seg Neutrophils % Seg Neuts % (Manual) Lymphocytes % (Manual) Seg Neutrophils # Seg Neutrophils # Man Lymphocytes # (Manual) PT INR POC ABG pH POC ABG pCO2 POC ABG pO2 Sodium Potassium Chloride Carbon Dioxide BUN Creatinine Glucose POC Glucose 124 H 156 H 125 H Calcium Magnesium AST Total Creatine Kinase CK-MB (CK-2) Troponin T NT-Pro-B Natriuret Pep Total Protein Albumin HDL Cholesterol 02/07/19 02/07/19 02/07/19 00:21 05:46 11:28 WBC RBC Hgb Hct MCV RDW Plt Count Lymph % (Auto) [place] % (Auto) Lymph # Seg Neutrophils % Seg Neuts % (Manual) Lymphocytes % (Manual) Seg Neutrophils # Seg Neutrophils # Man Lymphocytes # (Manual) PT INR POC ABG pH POC ABG pCO2 POC ABG pO2 Sodium Potassium Chloride Carbon Dioxide BUN Creatinine Glucose POC Glucose 206 H 153 H 200 H Calcium Magnesium AST Total Creatine Kinase CK-MB (CK-2) Troponin T NT-Pro-B Natriuret Pep Total Protein Albumin HDL Cholesterol 02/07/19 02/08/19 02/08/19 18:48 00:08 05:29 WBC RBC Hgb Hct MCV RDW Plt Count Lymph % (Auto) [place] % (Auto) Lymph # Seg Neutrophils % Seg Neuts % (Manual) Lymphocytes % (Manual) Seg Neutrophils # Seg Neutrophils # Man Lymphocytes # (Manual) PT INR POC ABG pH POC ABG pCO2 POC ABG pO2 Sodium Potassium Chloride Carbon Dioxide BUN Creatinine Glucose POC Glucose 185 H 174 H 148 H Calcium Magnesium AST Total Creatine Kinase CK-MB (CK-2) Troponin T NT-Pro-B Natriuret Pep Total Protein Albumin HDL Cholesterol 02/08/19 02/08/19 02/08/19 07:00 07:00 11:45 WBC RBC 3.12 L Hgb 8.9 L Hct 26.7 L MCV RDW Plt Count Lymph % (Auto) 9.5 L [place] % (Auto) Lymph # 0.9 L Seg Neutrophils % 84.5 H Seg Neuts % (Manual) Lymphocytes % (Manual) Seg Neutrophils # 8.1 H Seg Neutrophils # Man Lymphocytes # (Manual) PT INR POC ABG pH POC ABG pCO2 POC ABG pO2 Sodium 135 L Potassium Chloride 91.1 L Carbon Dioxide 33 H BUN 44 H Creatinine Glucose 166 H POC Glucose 166 H Calcium Magnesium AST Total Creatine Kinase CK-MB (CK-2) Troponin T NT-Pro-B Natriuret Pep Total Protein Albumin HDL Cholesterol 02/09/19 02/09/19 02/09/19 01:31 05:44 10:48 WBC RBC Hgb Hct MCV RDW Plt Count Lymph % (Auto) [place] % (Auto) Lymph # Seg Neutrophils % Seg Neuts % (Manual) Lymphocytes % (Manual) Seg Neutrophils # Seg Neutrophils # Man Lymphocytes # (Manual) PT INR POC ABG pH POC ABG pCO2 POC ABG pO2 Sodium Potassium Chloride Carbon Dioxide BUN Creatinine Glucose POC Glucose 215 H 146 H 151 H Calcium Magnesium AST Total Creatine Kinase CK-MB (CK-2) Troponin T NT-Pro-B Natriuret Pep Total Protein Albumin HDL Cholesterol Allied health notes reviewed: nursing
[2019-02-09] MEDS ORDERED: SUBLIMAZE ONE (13:51)
[2019-02-09] MEDS ORDERED: BRIDION IV ONE (13:53)
[2019-02-09] MEDS ORDERED: Vasostrict ONE (13:53)
[2019-02-09] MEDS ORDERED: ceFAZolin 2 GM in NACL 0.9% 100 ML IV ONE (14:00)
[2019-02-09] MEDS ORDERED: ANCEF/STERILE WATER 2 GM/20 ML 2 GM/20 ML SYRINGE IV NR (14:00)
[2019-02-09] MEDS ORDERED: XYLOCAINE 1% 20 mL ONE (14:03)
[2019-02-09] MEDS ORDERED: MARCAINE 0.25% INFILTRATI ONE ×2 (14:03→14:27)
[2019-02-09] MEDS ORDERED: VERSED ONE (14:05)
[2019-02-09] MEDS ORDERED: WATER FOR IRRIG STERILE IR ONE (14:09)
[2019-02-09] MEDS ORDERED: XYLOCAINE 1% 20 mL INFILTRATI ONE (14:27)
--- NOTE | 2019-02-09 14:30 | Anesthesia Day of Surgery ---
Anesthesia Day of Surgery - Day of Surgery Patient Examined: Yes Patient H&P Reviewed: Yes Patient is NPO: Yes
--- NOTE | 2019-02-09 15:02 | Post Operative Note ---
Date of procedure: 02/09/19 Pre-op diagnosis: dysphagia, VDRF Post-op diagnosis: same Findings: good placement of PEG Procedure: laparosocopic PEG tube placement Anesthesia: GETA, local Surgeon: STEPHANIE RYAN Smoking Pipe Maker: JOSE MARTÍNEZ (cosurgeon) Estimated blood loss: minimal Pathology: none Condition: stable Disposition: PACU
--- NOTE | 2019-02-09 17:23 | Post Anesthesia Evaluation ---
- Post Anesthesia Evaluation Patient Participated: No Airway Patent: Yes Stable Respiratory Function: Yes Nausea/Vomiting: No Temp > 96.8F: Yes Pain Manageable: Yes Adequeate Hydration: Yes Anesthesia Complications: No
[2019-02-09] MEDS: TRANSDERM-SCOP TD SCH (21:57)
--- NOTE | 2019-02-10 00:52 | Operative Report ---
Operative Report Operative Report: EGD Dictation:[id number]
--- NOTE | 2019-02-10 01:08 | Operative Report ---
PREOPERATIVE DIAGNOSIS: Respiratory failure. POSTOPERATIVE DIAGNOSIS: Respiratory failure. PROCEDURE: EGD for assistance with PEG tube placement. ATTENDING PHYSICIAN: Rachelle Mcclain MD ANESTHESIA: General. SPECIMENS: Minimal. FINDINGS: Very tight upper esophageal sphincter. 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 DRAINS: None. COMPLICATIONS: None. DISPOSITION: Stable, transferred to ICU. INDICATIONS: This is a 73-year-old woman, who is unresponsive on the ventilator and in need of feeding tube placement. She was unable to have this done at the bedside or by Interventional Radiology. Therefore, General Surgery was asked to perform a feeding tube placement in the operating room. Procedure, risks and benefits were explained to the family. Risks included but were not limited to infection, bleeding, pain, injury to surrounding structures, possible need for further procedures in the future. Family consented. DESCRIPTION OF THE PROCEDURE: The patient was brought to the operating room, placed in stable supine position. After adequate general anesthesia was established, the patient was prepped and draped in the usual sterile fashion for a laparoscopic-assisted PEG tube placement. I did the EGD portion of the case. Please see Dr. Bassett's note for laparoscopic PEG tube placement. After a time-out was called, I passed the upper endoscope into the mouth and intubated the esophagus. It was difficult to get into the esophagus, even with the NG tube being in place as there was a very tight constriction of the sphincter. Once I entered the esophagus, then it passed easily into the stomach. We assisted with placement of the PEG tube. After that was done, I then examined the entire stomach and duodenum. I found no abnormalities. As we pulled the scope back, we noted a small varix near the GE junction. The rest of the esophagus was okay and as mentioned, the upper sphincter was very tight. No other abnormalities were seen. The patient tolerated the procedure well, there were no complications. All counts were correct at the end of the case. JOB# [id number] RADHA/VIANEY RAMIREZ
[2019-02-10] MEDS: HumaLOG SUB-Q SCH ×4 (02:07→18:53)
[2019-02-10] MEDS: DUONEB *Not for PRN Use IH SCH ×4 (02:29→20:07)
[2019-02-10] MEDS: LASIX PO SCH ×3 (05:12→21:09)
[2019-02-10] MEDS: REGLAN IV SCH ×3 (05:37→21:09)
--- NOTE | 2019-02-10 09:42 | Progress Note ---
Assessment and Plan s/p Cardiopulmonary arrest, out of hospital, PEA with ROSC Acute hypoxic-hypercapnic respiratory failure on MVS Acute encephalopathy, metabolic Acute metabolic acidosis Acute renal injury Seizure activity Right lower lobe infiltrate, probably aspiration Pyrexia with leukocytosis Pulmonary HTN RVSP 60 Systolic heart failure EF 35-40% Thrombocytopenia, resolved Pyrexia s/p PEG placement Continue with ATC as tolerated Continue small bowel feeding Wean supplemental oxygen to keep O2 sats 88-90% Trach care, secretion management, airway clearance -PRN ABGs/CXR -Avoid nephrotoxic agents, -Stress ulcer prophylaxis -Aspiration precautions -Accuchecks with glycemic control. Target glucose of 140-180 mg/dL -Bronchodilators with pulmonary hygiene per RT -Mobility as tolerated by hemodynamics -Influenza and pneumonia vaccination per protocol -Care plan discussed with hospitalist service Updated grand daughter at the bedside PROGNOSIS:poor CONDITION: FAIR CODE STATUS: FULL CODE Subjective Date of service: 02/10/19 Principal diagnosis: OOH cardiac arrest; Acute hypoxemic-hypercapnic Resp failure; PNA Interval history: Patient is seen today for: OOH cardiopulmonary arrest with ROSC; Acute hypoxemi c-hypercapnic respiratory failure s/p MVS; acute encephalopathy; aspiration pneumonia; s/p tracheostomy; ileus Seen and examined at bedside; 24-hour events reviewed; nursing and respiratory care staff consulted; no adverse overnight events reported to me; no fevers, no vomiting, no fevers, tolerating ATP , off MVS, Persistent encephalopathy, s/p PEG, uneventful. Back on tube feedings and is tolerating it. Opens eyes on tactile stimulation Objective Vital Signs - 12hr 02/09/19 02/09/19 02/09/19 22:00 23:02 23:15 Temperature Pulse Rate Pulse Rate [ 62 61 Anterior Bilateral Throughout] Respiratory Rate Respiratory 17 15 Rate [Anterior Bilateral Throughout] Blood Pressure O2 Sat by Pulse 96 Oximetry O2 Sat by Pulse Oximetry [ Assessment] 02/09/19 02/09/19 02/10/19 23:17 23:23 02:30 Temperature 97.6 F Pulse Rate 80 Pulse Rate [ 79 Anterior Bilateral Throughout] Respiratory 20 Rate Respiratory 16 Rate [Anterior Bilateral Throughout] Blood Pressure 112/63 O2 Sat by Pulse 96 Oximetry O2 Sat by Pulse 98 Oximetry [ Assessment] 02/10/19 02/10/19 02/10/19 02:40 04:00 04:22 Temperature 97.7 F Pulse Rate 82 80 Pulse Rate [ 77 Anterior Bilateral Throughout] Respiratory 20 Rate Respiratory 15 Rate [Anterior Bilateral Throughout] Blood Pressure 113/67 O2 Sat by Pulse 98 Oximetry O2 Sat by Pulse Oximetry [ Assessment] 02/10/19 02/10/19 08:00 08:13 Temperature Pulse Rate Pulse Rate [ 80 81 Anterior Bilateral Throughout] Respiratory Rate Respiratory 18 20 Rate [Anterior Bilateral Throughout] Blood Pressure O2 Sat by Pulse 100 Oximetry O2 Sat by Pulse 100 Oximetry [ Assessment] Constitutional: no acute distress, asleep, other (elderly, atraumatic, normocephalic, chronically looking female) Eyes: non-icteric ENT: oropharynx moist, other (s/p tracheostomy) Neck: supple, no lymphadenopathy, no JVD Effort: normal Ascultation: Bilateral: clear, diminished breath sounds Cardiovascular: regular rate and rhythm, other (tacycardia, S1,S2, no murmurs, gallops or rubs) Gastrointestinal: normoactive bowel sounds, soft, non-tender, non-distended, other (PEG in place) Integumentary: normal Extremities: no cyanosis, no edema, pulses normal, no ischemia or petechiae Neurologic: unable to assess Psychiatric: other (unable to assess secondary to mental status) CBC and BMP: 02/08/19 07:00 02/08/19 07:00 ABG, PT/INR, D-dimer: ABG POC ABG pH 7.508 (7.35-7.45) H 01/30/19 16:47 POC ABG pCO2 31.5 (35-45) L 01/30/19 16:47 POC ABG pO2 135 (80-105) H 01/30/19 16:47 POC ABG HCO3 25.0 (22-26 mml/L) 01/30/19 16:47 POC ABG Total CO2 26 (23-27mmol/L) 01/30/19 16:47 POC ABG O2 Sat 99 01/30/19 16:47 PT/INR, D-dimer PT 18.8 Sec. (12.2-14.9) H 01/25/19 05:15 INR 1.47 (0.87-1.13) H 01/25/19 05:15 Abnormal lab findings: Abnormal Labs 01/15/19 01/15/19 01/15/19 07:50 07:50 07:50 WBC RBC Hgb Hct MCV 99 H RDW 16.7 H Plt Count 122 L Lymph % (Auto) [place] % (Auto) Lymph # Seg Neutrophils % Seg Neuts % (Manual) Lymphocytes % (Manual) Seg Neutrophils # Seg Neutrophils # Man Lymphocytes # (Manual) PT 19.7 H INR 1.56 H POC ABG pH POC ABG pCO2 POC ABG pO2 Sodium Potassium Chloride Carbon Dioxide 11 L BUN Creatinine 1.4 H Glucose 268 H POC Glucose Calcium Magnesium AST 57 H Total Creatine Kinase CK-MB (CK-2) Troponin T NT-Pro-B Natriuret Pep 5346 H Total Protein Albumin 3.6 L HDL Cholesterol 01/15/19 01/15/19 01/15/19 09:56 11:53 17:52 WBC RBC Hgb Hct MCV RDW Plt Count Lymph % (Auto) [place] % (Auto) Lymph # Seg Neutrophils % Seg Neuts % (Manual) Lymphocytes % (Manual) Seg Neutrophils # Seg Neutrophils # Man Lymphocytes # (Manual) PT INR POC ABG pH 7.186 L POC ABG pCO2 46.4 H POC ABG pO2 Sodium Potassium Chloride Carbon Dioxide BUN Creatinine Glucose POC Glucose Calcium Magnesium AST Total Creatine Kinase 683 H 1430 H CK-MB (CK-2) 9.5 H 13.5 H Troponin T 0.036 H D NT-Pro-B Natriuret Pep Total Protein Albumin HDL Cholesterol 65 H 01/15/19 01/15/19 01/16/19 18:31 21:46 02:14 WBC RBC Hgb Hct MCV RDW Plt Count Lymph % (Auto) [place] % (Auto) Lymph # Seg Neutrophils % Seg Neuts % (Manual) Lymphocytes % (Manual) Seg Neutrophils # Seg Neutrophils # Man Lymphocytes # (Manual) PT INR POC ABG pH POC ABG pCO2 31.8 L POC ABG pO2 167 H Sodium Potassium Chloride Carbon Dioxide BUN Creatinine Glucose POC Glucose 134 H 136 H Calcium Magnesium AST Total Creatine Kinase CK-MB (CK-2) Troponin T NT-Pro-B Natriuret Pep Total Protein Albumin HDL Cholesterol 01/16/19 01/16/19 01/16/19 04:16 04:16 05:05 WBC 11.4 H RBC Hgb Hct MCV RDW Plt Count 105 L Lymph % (Auto) [place] % (Auto) Lymph # Seg Neutrophils % Seg Neuts % (Manual) 74.0 H Lymphocytes % (Manual) 2.0 L Seg Neutrophils # Seg Neutrophils # Man 8.4 H Lymphocytes # (Manual) 0.2 L PT INR POC ABG pH 7.458 H POC ABG pCO2 31.4 L POC ABG pO2 135 H Sodium Potassium 3.3 L Chloride Carbon Dioxide 21 L D BUN 24 H Creatinine 1.5 H Glucose 141 H POC Glucose Calcium 8.1 L Magnesium AST 71 H Total Creatine Kinase CK-MB (CK-2) Troponin T NT-Pro-B Natriuret Pep Total Protein 6.2 L Albumin 3.5 L HDL Cholesterol 01/16/19 01/16/19 01/16/19 05:24 13:42 21:08 WBC RBC Hgb Hct MCV RDW Plt Count Lymph % (Auto) [place] % (Auto) Lymph # Seg Neutrophils % Seg Neuts % (Manual) Lymphocytes % (Manual) Seg Neutrophils # Seg Neutrophils # Man Lymphocytes # (Manual) PT INR POC ABG pH POC ABG pCO2 POC ABG pO2 Sodium Potassium Chloride Carbon Dioxide BUN Creatinine Glucose POC Glucose 137 H 129 H 122 H Calcium Magnesium AST Total Creatine Kinase CK-MB (CK-2) Troponin T NT-Pro-B Natriuret Pep Total Protein Albumin HDL Cholesterol 01/17/19 01/17/19 01/17/19 02:18 04:23 05:13 WBC RBC Hgb Hct MCV RDW Plt Count Lymph % (Auto) [place] % (Auto) Lymph # Seg Neutrophils % Seg Neuts % (Manual) Lymphocytes % (Manual) Seg Neutrophils # Seg Neutrophils # Man Lymphocytes # (Manual) PT INR POC ABG pH 7.479 H POC ABG pCO2 30.0 L POC ABG pO2 141 H Sodium Potassium Chloride Carbon Dioxide BUN Creatinine Glucose POC Glucose 139 H 128 H Calcium Magnesium AST Total Creatine Kinase CK-MB (CK-2) Troponin T NT-Pro-B Natriuret Pep Total Protein Albumin HDL Cholesterol 01/17/19 01/17/19 01/17/19 10:22 15:59 18:45 WBC RBC Hgb Hct MCV RDW Plt Count Lymph % (Auto) [place] % (Auto) Lymph # Seg Neutrophils % Seg Neuts % (Manual) Lymphocytes % (Manual) Seg Neutrophils # Seg Neutrophils # Man Lymphocytes # (Manual) PT INR POC ABG pH POC ABG pCO2 POC ABG pO2 Sodium Potassium Chloride Carbon Dioxide BUN Creatinine Glucose POC Glucose 133 H 121 H 106 H Calcium Magnesium AST Total Creatine Kinase CK-MB (CK-2) Troponin T NT-Pro-B Natriuret Pep Total Protein Albumin HDL Cholesterol 01/17/19 01/18/19 01/18/19 23:35 04:21 04:21 WBC RBC 3.27 L Hgb 9.6 L Hct 29.9 L MCV RDW Plt Count 79 L Lymph % (Auto) 6.0 L [place] % (Auto) Lymph # 0.5 L Seg Neutrophils % 89.2 H Seg Neuts % (Manual) Lymphocytes % (Manual) Seg Neutrophils # 8.1 H Seg Neutrophils # Man Lymphocytes # (Manual) PT INR POC ABG pH POC ABG pCO2 POC ABG pO2 Sodium Potassium Chloride Carbon Dioxide BUN 28 H Creatinine 1.3 H Glucose 129 H POC Glucose 121 H Calcium Magnesium AST 120 H Total Creatine Kinase CK-MB (CK-2) Troponin T NT-Pro-B Natriuret Pep Total Protein 5.1 L Albumin 3.0 L HDL Cholesterol 01/18/19 01/18/19 01/18/19 04:21 04:36 05:43 WBC RBC Hgb Hct MCV RDW Plt Count Lymph % (Auto) [place] % (Auto) Lymph # Seg Neutrophils % Seg Neuts % (Manual) Lymphocytes % (Manual) Seg Neutrophils # Seg Neutrophils # Man Lymphocytes # (Manual) PT INR POC ABG pH 7.485 H POC ABG pCO2 31.0 L POC ABG pO2 126 H Sodium Potassium Chloride Carbon Dioxide BUN 28 H Creatinine 1.3 H Glucose 128 H POC Glucose 142 H Calcium Magnesium AST Total Creatine Kinase CK-MB (CK-2) Troponin T NT-Pro-B Natriuret Pep Total Protein Albumin HDL Cholesterol 01/18/19 01/18/19 01/18/19 12:04 18:16 20:47 WBC RBC Hgb Hct MCV RDW Plt Count Lymph % (Auto) [place] % (Auto) Lymph # Seg Neutrophils % Seg Neuts % (Manual) Lymphocytes % (Manual) Seg Neutrophils # Seg Neutrophils # Man Lymphocytes # (Manual) PT INR POC ABG pH 7.489 H POC ABG pCO2 32.8 L POC ABG pO2 Sodium Potassium Chloride Carbon Dioxide BUN Creatinine Glucose POC Glucose 113 H 119 H Calcium Magnesium AST Total Creatine Kinase CK-MB (CK-2) Troponin T NT-Pro-B Natriuret Pep Total Protein Albumin HDL Cholesterol 01/19/19 01/19/19 01/19/19 00:40 05:35 11:39 WBC RBC Hgb Hct MCV RDW Plt Count Lymph % (Auto) [place] % (Auto) Lymph # Seg Neutrophils % Seg Neuts % (Manual) Lymphocytes % (Manual) Seg Neutrophils # Seg Neutrophils # Man Lymphocytes # (Manual) PT INR POC ABG pH POC ABG pCO2 POC ABG pO2 Sodium Potassium Chloride Carbon Dioxide BUN Creatinine Glucose POC Glucose 137 H 157 H 155 H Calcium Magnesium AST Total Creatine Kinase CK-MB (CK-2) Troponin T NT-Pro-B Natriuret Pep Total Protein Albumin HDL Cholesterol 01/19/19 01/19/19 01/19/19 18:24 21:08 23:33 WBC RBC Hgb Hct MCV RDW Plt Count Lymph % (Auto) [place] % (Auto) Lymph # Seg Neutrophils % Seg Neuts % (Manual) Lymphocytes % (Manual) Seg Neutrophils # Seg Neutrophils # Man Lymphocytes # (Manual) PT INR POC ABG pH 7.508 H POC ABG pCO2 34.2 L POC ABG pO2 Sodium Potassium Chloride Carbon Dioxide BUN Creatinine Glucose POC Glucose 145 H 156 H Calcium Magnesium AST Total Creatine Kinase CK-MB (CK-2) Troponin T NT-Pro-B Natriuret Pep Total Protein Albumin HDL Cholesterol 01/20/19 01/20/19 01/20/19 05:12 11:42 17:36 WBC RBC Hgb Hct MCV RDW Plt Count Lymph % (Auto) [place] % (Auto) Lymph # Seg Neutrophils % Seg Neuts % (Manual) Lymphocytes % (Manual) Seg Neutrophils # Seg Neutrophils # Man Lymphocytes # (Manual) PT INR POC ABG pH POC ABG pCO2 POC ABG pO2 Sodium Potassium Chloride Carbon Dioxide BUN Creatinine Glucose POC Glucose 152 H 159 H 169 H Calcium Magnesium AST Total Creatine Kinase CK-MB (CK-2) Troponin T NT-Pro-B Natriuret Pep Total Protein Albumin HDL Cholesterol 01/20/19 01/21/19 01/21/19 23:29 05:30 05:34 WBC RBC Hgb Hct MCV RDW Plt Count Lymph % (Auto) [place] % (Auto) Lymph # Seg Neutrophils % Seg Neuts % (Manual) Lymphocytes % (Manual) Seg Neutrophils # Seg Neutrophils # Man Lymphocytes # (Manual) PT INR POC ABG pH 7.616 H POC ABG pCO2 POC ABG pO2 71 L Sodium Potassium Chloride Carbon Dioxide BUN Creatinine Glucose POC Glucose 139 H 138 H Calcium Magnesium AST Total Creatine Kinase CK-MB (CK-2) Troponin T NT-Pro-B Natriuret Pep Total Protein Albumin HDL Cholesterol 01/21/19 01/21/19 01/22/19 12:41 18:47 00:07 WBC RBC Hgb Hct MCV RDW Plt Count Lymph % (Auto) [place] % (Auto) Lymph # Seg Neutrophils % Seg Neuts % (Manual) Lymphocytes % (Manual) Seg Neutrophils # Seg Neutrophils # Man Lymphocytes # (Manual) PT INR POC ABG pH POC ABG pCO2 POC ABG pO2 Sodium Potassium Chloride Carbon Dioxide BUN Creatinine Glucose POC Glucose 154 H 174 H 163 H Calcium Magnesium AST Total Creatine Kinase CK-MB (CK-2) Troponin T NT-Pro-B Natriuret Pep Total Protein Albumin HDL Cholesterol 01/22/19 01/22/19 01/22/19 04:35 05:46 12:18 WBC RBC Hgb Hct MCV RDW Plt Count Lymph % (Auto) [place] % (Auto) Lymph # Seg Neutrophils % Seg Neuts % (Manual) Lymphocytes % (Manual) Seg Neutrophils # Seg Neutrophils # Man Lymphocytes # (Manual) PT INR POC ABG pH 7.522 H POC ABG pCO2 POC ABG pO2 Sodium Potassium Chloride Carbon Dioxide BUN Creatinine Glucose POC Glucose 159 H 137 H Calcium Magnesium AST Total Creatine Kinase CK-MB (CK-2) Troponin T NT-Pro-B Natriuret Pep Total Protein Albumin HDL Cholesterol 01/22/19 01/22/19 01/22/19 15:00 15:00 18:13 WBC RBC 2.92 L Hgb 8.4 L Hct 25.6 L MCV RDW Plt Count Lymph % (Auto) [place] % (Auto) Lymph # Seg Neutrophils % Seg Neuts % (Manual) Lymphocytes % (Manual) Seg Neutrophils # Seg Neutrophils # Man Lymphocytes # (Manual) PT INR POC ABG pH POC ABG pCO2 POC ABG pO2 Sodium Potassium Chloride 97.0 L Carbon Dioxide BUN 37 H Creatinine Glucose 162 H POC Glucose 159 H Calcium 8.2 L Magnesium AST Total Creatine Kinase CK-MB (CK-2) Troponin T NT-Pro-B Natriuret Pep Total Protein Albumin HDL Cholesterol 01/22/19 01/23/19 01/23/19 22:45 00:01 05:10 WBC RBC 2.92 L Hgb 8.5 L Hct 25.4 L MCV RDW Plt Count Lymph % (Auto) 6.3 L [place] % (Auto) Lymph # 0.6 L Seg Neutrophils % 86.3 H Seg Neuts % (Manual) Lymphocytes % (Manual) Seg Neutrophils # 8.9 H Seg Neutrophils # Man Lymphocytes # (Manual) PT INR POC ABG pH POC ABG pCO2 POC ABG pO2 Sodium Potassium Chloride Carbon Dioxide BUN Creatinine Glucose POC Glucose 178 H 155 H Calcium Magnesium AST Total Creatine Kinase CK-MB (CK-2) Troponin T NT-Pro-B Natriuret Pep Total Protein Albumin HDL Cholesterol 01/23/19 01/23/19 01/23/19 11:31 17:49 Unknown WBC RBC Hgb Hct MCV RDW Plt Count Lymph % (Auto) [place] % (Auto) Lymph # Seg Neutrophils % Seg Neuts % (Manual) Lymphocytes % (Manual) Seg Neutrophils # Seg Neutrophils # Man Lymphocytes # (Manual) PT INR POC ABG pH POC ABG pCO2 POC ABG pO2 Sodium Potassium Chloride 95.4 L Carbon Dioxide BUN 37 H Creatinine Glucose 144 H POC Glucose 161 H 142 H Calcium Magnesium AST 88 H Total Creatine Kinase CK-MB (CK-2) Troponin T NT-Pro-B Natriuret Pep Total Protein 6.0 L Albumin 2.9 L HDL Cholesterol 01/24/19 01/24/19 01/24/19 00:21 05:36 12:35 WBC RBC Hgb Hct MCV RDW Plt Count Lymph % (Auto) [place] % (Auto) Lymph # Seg Neutrophils % Seg Neuts % (Manual) Lymphocytes % (Manual) Seg Neutrophils # Seg Neutrophils # Man Lymphocytes # (Manual) PT INR POC ABG pH POC ABG pCO2 POC ABG pO2 Sodium Potassium Chloride Carbon Dioxide BUN Creatinine Glucose POC Glucose 163 H 147 H 263 H Calcium Magnesium AST Total Creatine Kinase CK-MB (CK-2) Troponin T NT-Pro-B Natriuret Pep Total Protein Albumin HDL Cholesterol 01/24/19 01/24/19 01/24/19 17:46 23:07 Unknown WBC RBC 2.90 L Hgb 8.3 L Hct 25.0 L MCV RDW Plt Count Lymph % (Auto) [place] % (Auto) Lymph # Seg Neutrophils % Seg Neuts % (Manual) Lymphocytes % (Manual) Seg Neutrophils # Seg Neutrophils # Man Lymphocytes # (Manual) PT INR POC ABG pH POC ABG pCO2 POC ABG pO2 Sodium Potassium Chloride Carbon Dioxide BUN Creatinine Glucose POC Glucose 161 H 167 H Calcium Magnesium AST Total Creatine Kinase CK-MB (CK-2) Troponin T NT-Pro-B Natriuret Pep Total Protein Albumin HDL Cholesterol 01/24/19 01/25/19 01/25/19 Unknown 05:15 05:15 WBC RBC 2.90 L Hgb 8.4 L Hct 25.2 L MCV RDW Plt Count Lymph % (Auto) [place] % (Auto) Lymph # Seg Neutrophils % Seg Neuts % (Manual) Lymphocytes % (Manual) Seg Neutrophils # Seg Neutrophils # Man Lymphocytes # (Manual) PT INR POC ABG pH POC ABG pCO2 POC ABG pO2 Sodium 134 L 135 L Potassium Chloride 94.4 L 94.0 L Carbon Dioxide BUN 35 H 35 H Creatinine Glucose 151 H 128 H POC Glucose Calcium Magnesium AST Total Creatine Kinase CK-MB (CK-2) Troponin T NT-Pro-B Natriuret Pep Total Protein Albumin HDL Cholesterol 01/25/19 01/25/19 01/25/19 05:15 05:35 11:09 WBC RBC Hgb Hct MCV RDW Plt Count Lymph % (Auto) [place] % (Auto) Lymph # Seg Neutrophils % Seg Neuts % (Manual) Lymphocytes % (Manual) Seg Neutrophils # Seg Neutrophils # Man Lymphocytes # (Manual) PT 18.8 H INR 1.47 H POC ABG pH POC ABG pCO2 POC ABG pO2 Sodium Potassium Chloride Carbon Dioxide BUN Creatinine Glucose POC Glucose 126 H 149 H Calcium Magnesium AST Total Creatine Kinase CK-MB (CK-2) Troponin T NT-Pro-B Natriuret Pep Total Protein Albumin HDL Cholesterol 01/25/19 01/25/19 01/26/19 17:24 23:41 00:09 WBC RBC Hgb Hct MCV RDW Plt Count Lymph % (Auto) [place] % (Auto) Lymph # Seg Neutrophils % Seg Neuts % (Manual) Lymphocytes % (Manual) Seg Neutrophils # Seg Neutrophils # Man Lymphocytes # (Manual) PT INR POC ABG pH POC ABG pCO2 POC ABG pO2 Sodium Potassium Chloride Carbon Dioxide BUN Creatinine Glucose POC Glucose 140 H 142 H 156 H Calcium Magnesium AST Total Creatine Kinase CK-MB (CK-2) Troponin T NT-Pro-B Natriuret Pep Total Protein Albumin HDL Cholesterol 01/26/19 01/26/19 01/26/19 05:05 06:35 06:35 WBC RBC 2.83 L Hgb 8.1 L Hct 24.4 L MCV RDW Plt Count Lymph % (Auto) [place] % (Auto) Lymph # Seg Neutrophils % Seg Neuts % (Manual) Lymphocytes % (Manual) Seg Neutrophils # Seg Neutrophils # Man Lymphocytes # (Manual) PT INR POC ABG pH POC ABG pCO2 POC ABG pO2 Sodium Potassium Chloride 96.9 L Carbon Dioxide BUN 29 H Creatinine Glucose 141 H POC Glucose 159 H Calcium 8.3 L Magnesium AST Total Creatine Kinase CK-MB (CK-2) Troponin T NT-Pro-B Natriuret Pep Total Protein Albumin HDL Cholesterol 01/26/19 01/26/19 01/27/19 13:16 19:10 00:08 WBC RBC Hgb Hct MCV RDW Plt Count Lymph % (Auto) [place] % (Auto) Lymph # Seg Neutrophils % Seg Neuts % (Manual) Lymphocytes % (Manual) Seg Neutrophils # Seg Neutrophils # Man Lymphocytes # (Manual) PT INR POC ABG pH POC ABG pCO2 POC ABG pO2 Sodium Potassium Chloride Carbon Dioxide BUN Creatinine Glucose POC Glucose 159 H 146 H 140 H Calcium Magnesium AST Total Creatine Kinase CK-MB (CK-2) Troponin T NT-Pro-B Natriuret Pep Total Protein Albumin HDL Cholesterol 01/27/19 01/27/19 01/27/19 03:30 03:30 06:23 WBC RBC 2.85 L Hgb 8.3 L Hct 24.8 L MCV RDW Plt Count Lymph % (Auto) [place] % (Auto) Lymph # Seg Neutrophils % Seg Neuts % (Manual) Lymphocytes % (Manual) Seg Neutrophils # Seg Neutrophils # Man Lymphocytes # (Manual) PT INR POC ABG pH POC ABG pCO2 POC ABG pO2 Sodium 136 L Potassium Chloride 97.1 L Carbon Dioxide BUN 26 H Creatinine Glucose 129 H POC Glucose 154 H Calcium Magnesium AST Total Creatine Kinase CK-MB (CK-2) Troponin T NT-Pro-B Natriuret Pep Total Protein Albumin HDL Cholesterol 01/27/19 01/27/19 01/27/19 12:47 17:43 23:31 WBC RBC Hgb Hct MCV RDW Plt Count Lymph % (Auto) [place] % (Auto) Lymph # Seg Neutrophils % Seg Neuts % (Manual) Lymphocytes % (Manual) Seg Neutrophils # Seg Neutrophils # Man Lymphocytes # (Manual) PT INR POC ABG pH POC ABG pCO2 POC ABG pO2 Sodium Potassium Chloride Carbon Dioxide BUN Creatinine Glucose POC Glucose 159 H 180 H 164 H Calcium Magnesium AST Total Creatine Kinase CK-MB (CK-2) Troponin T NT-Pro-B Natriuret Pep Total Protein Albumin HDL Cholesterol 01/28/19 01/28/19 01/28/19 04:35 12:01 12:01 WBC RBC 2.67 L Hgb 7.9 L Hct 22.9 L MCV RDW Plt Count Lymph % (Auto) [place] % (Auto) Lymph # Seg Neutrophils % Seg Neuts % (Manual) Lymphocytes % (Manual) Seg Neutrophils # Seg Neutrophils # Man Lymphocytes # (Manual) PT INR POC ABG pH POC ABG pCO2 POC ABG pO2 Sodium 136 L Potassium 3.5 L Chloride Carbon Dioxide BUN 18 H Creatinine Glucose 143 H POC Glucose 139 H Calcium 8.0 L Magnesium AST Total Creatine Kinase CK-MB (CK-2) Troponin T NT-Pro-B Natriuret Pep Total Protein Albumin HDL Cholesterol 01/28/19 01/28/19 01/28/19 12:04 16:59 17:11 WBC RBC Hgb Hct MCV RDW Plt Count Lymph % (Auto) [place] % (Auto) Lymph # Seg Neutrophils % Seg Neuts % (Manual) Lymphocytes % (Manual) Seg Neutrophils # Seg Neutrophils # Man Lymphocytes # (Manual) PT INR POC ABG pH 7.488 H POC ABG pCO2 34.1 L POC ABG pO2 Sodium Potassium Chloride Carbon Dioxide BUN Creatinine Glucose POC Glucose 143 H 163 H Calcium Magnesium AST Total Creatine Kinase CK-MB (CK-2) Troponin T NT-Pro-B Natriuret Pep Total Protein Albumin HDL Cholesterol 01/29/19 01/29/19 01/29/19 00:10 05:47 12:08 WBC RBC Hgb Hct MCV RDW Plt Count Lymph % (Auto) [place] % (Auto) Lymph # Seg Neutrophils % Seg Neuts % (Manual) Lymphocytes % (Manual) Seg Neutrophils # Seg Neutrophils # Man Lymphocytes # (Manual) PT INR POC ABG pH POC ABG pCO2 POC ABG pO2 Sodium Potassium Chloride Carbon Dioxide BUN Creatinine Glucose POC Glucose 171 H 187 H 137 H Calcium Magnesium AST Total Creatine Kinase CK-MB (CK-2) Troponin T NT-Pro-B Natriuret Pep Total Protein Albumin HDL Cholesterol 01/29/19 01/29/19 01/29/19 16:48 16:54 17:47 WBC RBC Hgb Hct MCV RDW Plt Count Lymph % (Auto) [place] % (Auto) Lymph # Seg Neutrophils % Seg Neuts % (Manual) Lymphocytes % (Manual) Seg Neutrophils # Seg Neutrophils # Man Lymphocytes # (Manual) PT INR POC ABG pH 7.486 H 7.512 H POC ABG pCO2 32.8 L 32.7 L POC ABG pO2 108 H Sodium Potassium Chloride Carbon Dioxide BUN Creatinine Glucose POC Glucose 156 H Calcium Magnesium AST Total Creatine Kinase CK-MB (CK-2) Troponin T NT-Pro-B Natriuret Pep Total Protein Albumin HDL Cholesterol 01/29/19 01/30/19 01/30/19 23:48 06:45 07:18 WBC RBC 2.94 L Hgb 8.6 L Hct 25.7 L MCV RDW Plt Count Lymph % (Auto) [place] % (Auto) Lymph # Seg Neutrophils % Seg Neuts % (Manual) Lymphocytes % (Manual) Seg Neutrophils # Seg Neutrophils # Man Lymphocytes # (Manual) PT INR POC ABG pH POC ABG pCO2 POC ABG pO2 Sodium 135 L Potassium Chloride Carbon Dioxide BUN Creatinine Glucose 141 H POC Glucose 185 H Calcium 8.3 L Magnesium AST Total Creatine Kinase CK-MB (CK-2) Troponin T NT-Pro-B Natriuret Pep Total Protein Albumin HDL Cholesterol 01/30/19 01/30/19 01/30/19 11:17 16:47 18:16 WBC RBC Hgb Hct MCV RDW Plt Count Lymph % (Auto) [place] % (Auto) Lymph # Seg Neutrophils % Seg Neuts % (Manual) Lymphocytes % (Manual) Seg Neutrophils # Seg Neutrophils # Man Lymphocytes # (Manual) PT INR POC ABG pH 7.508 H POC ABG pCO2 31.5 L POC ABG pO2 135 H Sodium Potassium Chloride Carbon Dioxide BUN Creatinine Glucose POC Glucose 170 H 108 H Calcium Magnesium AST Total Creatine Kinase CK-MB (CK-2) Troponin T NT-Pro-B Natriuret Pep Total Protein Albumin HDL Cholesterol 01/30/19 01/31/19 01/31/19 23:38 05:45 12:04 WBC RBC Hgb Hct MCV RDW Plt Count Lymph % (Auto) [place] % (Auto) Lymph # Seg Neutrophils % Seg Neuts % (Manual) Lymphocytes % (Manual) Seg Neutrophils # Seg Neutrophils # Man Lymphocytes # (Manual) PT INR POC ABG pH POC ABG pCO2 POC ABG pO2 Sodium Potassium Chloride Carbon Dioxide BUN Creatinine Glucose POC Glucose 146 H 121 H 152 H Calcium Magnesium AST Total Creatine Kinase CK-MB (CK-2) Troponin T NT-Pro-B Natriuret Pep Total Protein Albumin HDL Cholesterol 01/31/19 01/31/19 02/01/19 17:44 23:58 05:46 WBC RBC Hgb Hct MCV RDW Plt Count Lymph % (Auto) [place] % (Auto) Lymph # Seg Neutrophils % Seg Neuts % (Manual) Lymphocytes % (Manual) Seg Neutrophils # Seg Neutrophils # Man Lymphocytes # (Manual) PT INR POC ABG pH POC ABG pCO2 POC ABG pO2 Sodium Potassium Chloride Carbon Dioxide BUN Creatinine Glucose POC Glucose 153 H 183 H 116 H Calcium Magnesium AST Total Creatine Kinase CK-MB (CK-2) Troponin T NT-Pro-B Natriuret Pep Total Protein Albumin HDL Cholesterol 02/01/19 02/01/19 02/01/19 11:10 12:18 17:48 WBC RBC Hgb Hct MCV RDW Plt Count Lymph % (Auto) [place] % (Auto) Lymph # Seg Neutrophils % Seg Neuts % (Manual) Lymphocytes % (Manual) Seg Neutrophils # Seg Neutrophils # Man Lymphocytes # (Manual) PT INR POC ABG pH POC ABG pCO2 POC ABG pO2 Sodium 133 L Potassium 3.3 L Chloride 96.1 L Carbon Dioxide BUN Creatinine Glucose 145 H POC Glucose 175 H 129 H Calcium 8.3 L Magnesium AST Total Creatine Kinase CK-MB (CK-2) Troponin T NT-Pro-B Natriuret Pep Total Protein Albumin HDL Cholesterol 02/01/19 02/02/19 02/02/19 23:13 05:16 06:00 WBC RBC Hgb Hct MCV RDW Plt Count Lymph % (Auto) [place] % (Auto) Lymph # Seg Neutrophils % Seg Neuts % (Manual) Lymphocytes % (Manual) Seg Neutrophils # Seg Neutrophils # Man Lymphocytes # (Manual) PT INR POC ABG pH POC ABG pCO2 POC ABG pO2 Sodium 135 L Potassium Chloride Carbon Dioxide BUN 18 H Creatinine Glucose 121 H POC Glucose 143 H 140 H Calcium 8.3 L Magnesium 1.60 L AST Total Creatine Kinase CK-MB (CK-2) Troponin T NT-Pro-B Natriuret Pep Total Protein Albumin HDL Cholesterol 02/02/19 02/02/19 02/02/19 12:06 18:23 23:45 WBC RBC Hgb Hct MCV RDW Plt Count Lymph % (Auto) [place] % (Auto) Lymph # Seg Neutrophils % Seg Neuts % (Manual) Lymphocytes % (Manual) Seg Neutrophils # Seg Neutrophils # Man Lymphocytes # (Manual) PT INR POC ABG pH POC ABG pCO2 POC ABG pO2 Sodium Potassium Chloride Carbon Dioxide BUN Creatinine Glucose POC Glucose 156 H 159 H 139 H Calcium Magnesium AST Total Creatine Kinase CK-MB (CK-2) Troponin T NT-Pro-B Natriuret Pep Total Protein Albumin HDL Cholesterol 02/03/19 02/03/19 02/03/19 05:19 12:02 17:24 WBC RBC Hgb Hct MCV RDW Plt Count Lymph % (Auto) [place] % (Auto) Lymph # Seg Neutrophils % Seg Neuts % (Manual) Lymphocytes % (Manual) Seg Neutrophils # Seg Neutrophils # Man Lymphocytes # (Manual) PT INR POC ABG pH POC ABG pCO2 POC ABG pO2 Sodium Potassium Chloride Carbon Dioxide BUN Creatinine Glucose POC Glucose 147 H 163 H 144 H Calcium Magnesium AST Total Creatine Kinase CK-MB (CK-2) Troponin T NT-Pro-B Natriuret Pep Total Protein Albumin HDL Cholesterol 02/03/19 02/04/19 02/04/19 23:43 05:30 11:14 WBC RBC 3.00 L Hgb 8.7 L Hct 25.9 L MCV RDW Plt Count Lymph % (Auto) 11.5 L [place] % (Auto) 7.5 H Lymph # 0.8 L Seg Neutrophils % 79.6 H Seg Neuts % (Manual) Lymphocytes % (Manual) Seg Neutrophils # Seg Neutrophils # Man Lymphocytes # (Manual) PT INR POC ABG pH POC ABG pCO2 POC ABG pO2 Sodium Potassium Chloride Carbon Dioxide BUN Creatinine Glucose POC Glucose 131 H 145 H Calcium Magnesium AST Total Creatine Kinase CK-MB (CK-2) Troponin T NT-Pro-B Natriuret Pep Total Protein Albumin HDL Cholesterol 02/04/19 02/04/19 02/04/19 11:14 12:09 17:37 WBC RBC Hgb Hct MCV RDW Plt Count Lymph % (Auto) [place] % (Auto) Lymph # Seg Neutrophils % Seg Neuts % (Manual) Lymphocytes % (Manual) Seg Neutrophils # Seg Neutrophils # Man Lymphocytes # (Manual) PT INR POC ABG pH POC ABG pCO2 POC ABG pO2 Sodium Potassium Chloride 96.5 L Carbon Dioxide BUN 30 H Creatinine Glucose 142 H POC Glucose 149 H 170 H Calcium Magnesium AST Total Creatine Kinase CK-MB (CK-2) Troponin T NT-Pro-B Natriuret Pep Total Protein Albumin HDL Cholesterol 02/04/19 02/05/19 02/05/19 23:33 04:27 04:27 WBC RBC 3.61 L Hgb Hct MCV RDW Plt Count Lymph % (Auto) 12.3 L [place] % (Auto) Lymph # 0.9 L Seg Neutrophils % 79.1 H Seg Neuts % (Manual) Lymphocytes % (Manual) Seg Neutrophils # Seg Neutrophils # Man Lymphocytes # (Manual) PT INR POC ABG pH POC ABG pCO2 POC ABG pO2 Sodium Potassium Chloride 96.0 L Carbon Dioxide BUN 26 H Creatinine Glucose 118 H POC Glucose 182 H Calcium Magnesium AST Total Creatine Kinase CK-MB (CK-2) Troponin T NT-Pro-B Natriuret Pep Total Protein Albumin HDL Cholesterol 02/05/19 02/05/19 02/05/19 05:51 12:37 23:56 WBC RBC Hgb Hct MCV RDW Plt Count Lymph % (Auto) [place] % (Auto) Lymph # Seg Neutrophils % Seg Neuts % (Manual) Lymphocytes % (Manual) Seg Neutrophils # Seg Neutrophils # Man Lymphocytes # (Manual) PT INR POC ABG pH POC ABG pCO2 POC ABG pO2 Sodium Potassium Chloride Carbon Dioxide BUN Creatinine Glucose POC Glucose 162 H 147 H 167 H Calcium Magnesium AST Total Creatine Kinase CK-MB (CK-2) Troponin T NT-Pro-B Natriuret Pep Total Protein Albumin HDL Cholesterol 02/06/19 02/06/19 02/06/19 05:33 12:02 16:42 WBC RBC Hgb Hct MCV RDW Plt Count Lymph % (Auto) [place] % (Auto) Lymph # Seg Neutrophils % Seg Neuts % (Manual) Lymphocytes % (Manual) Seg Neutrophils # Seg Neutrophils # Man Lymphocytes # (Manual) PT INR POC ABG pH POC ABG pCO2 POC ABG pO2 Sodium Potassium Chloride Carbon Dioxide BUN Creatinine Glucose POC Glucose 124 H 156 H 125 H Calcium Magnesium AST Total Creatine Kinase CK-MB (CK-2) Troponin T NT-Pro-B Natriuret Pep Total Protein Albumin HDL Cholesterol 02/07/19 02/07/19 02/07/19 00:21 05:46 11:28 WBC RBC Hgb Hct MCV RDW Plt Count Lymph % (Auto) [place] % (Auto) Lymph # Seg Neutrophils % Seg Neuts % (Manual) Lymphocytes % (Manual) Seg Neutrophils # Seg Neutrophils # Man Lymphocytes # (Manual) PT INR POC ABG pH POC ABG pCO2 POC ABG pO2 Sodium Potassium Chloride Carbon Dioxide BUN Creatinine Glucose POC Glucose 206 H 153 H 200 H Calcium Magnesium AST Total Creatine Kinase CK-MB (CK-2) Troponin T NT-Pro-B Natriuret Pep Total Protein Albumin HDL Cholesterol 02/07/19 02/08/19 02/08/19 18:48 00:08 05:29 WBC RBC Hgb Hct MCV RDW Plt Count Lymph % (Auto) [place] % (Auto) Lymph # Seg Neutrophils % Seg Neuts % (Manual) Lymphocytes % (Manual) Seg Neutrophils # Seg Neutrophils # Man Lymphocytes # (Manual) PT INR POC ABG pH POC ABG pCO2 POC ABG pO2 Sodium Potassium Chloride Carbon Dioxide BUN Creatinine Glucose POC Glucose 185 H 174 H 148 H Calcium Magnesium AST Total Creatine Kinase CK-MB (CK-2) Troponin T NT-Pro-B Natriuret Pep Total Protein Albumin HDL Cholesterol 02/08/19 02/08/19 02/08/19 07:00 07:00 11:45 WBC RBC 3.12 L Hgb 8.9 L Hct 26.7 L MCV RDW Plt Count Lymph % (Auto) 9.5 L [place] % (Auto) Lymph # 0.9 L Seg Neutrophils % 84.5 H Seg Neuts % (Manual) Lymphocytes % (Manual) Seg Neutrophils # 8.1 H Seg Neutrophils # Man Lymphocytes # (Manual) PT INR POC ABG pH POC ABG pCO2 POC ABG pO2 Sodium 135 L Potassium Chloride 91.1 L Carbon Dioxide 33 H BUN 44 H Creatinine Glucose 166 H POC Glucose 166 H Calcium Magnesium AST Total Creatine Kinase CK-MB (CK-2) Troponin T NT-Pro-B Natriuret Pep Total Protein Albumin HDL Cholesterol 02/09/19 02/09/19 02/09/19 01:31 05:44 10:48 WBC RBC Hgb Hct MCV RDW Plt Count Lymph % (Auto) [place] % (Auto) Lymph # Seg Neutrophils % Seg Neuts % (Manual) Lymphocytes % (Manual) Seg Neutrophils # Seg Neutrophils # Man Lymphocytes # (Manual) PT INR POC ABG pH POC ABG pCO2 POC ABG pO2 Sodium Potassium Chloride Carbon Dioxide BUN Creatinine Glucose POC Glucose 215 H 146 H 151 H Calcium Magnesium AST Total Creatine Kinase CK-MB (CK-2) Troponin T NT-Pro-B Natriuret Pep Total Protein Albumin HDL Cholesterol 02/09/19 02/09/19 02/10/19 15:35 21:21 01:00 WBC RBC Hgb Hct MCV RDW Plt Count Lymph % (Auto) [place] % (Auto) Lymph # Seg Neutrophils % Seg Neuts % (Manual) Lymphocytes % (Manual) Seg Neutrophils # Seg Neutrophils # Man Lymphocytes # (Manual) PT INR POC ABG pH POC ABG pCO2 POC ABG pO2 Sodium Potassium Chloride Carbon Dioxide BUN Creatinine Glucose POC Glucose 139 H 153 H 183 H Calcium Magnesium AST Total Creatine Kinase CK-MB (CK-2) Troponin T NT-Pro-B Natriuret Pep Total Protein Albumin HDL Cholesterol 02/10/19 02/10/19 05:27 06:54 WBC RBC Hgb Hct MCV RDW Plt Count Lymph % (Auto) [place] % (Auto) Lymph # Seg Neutrophils % Seg Neuts % (Manual) Lymphocytes % (Manual) Seg Neutrophils # Seg Neutrophils # Man Lymphocytes # (Manual) PT INR POC ABG pH POC ABG pCO2 POC ABG pO2 Sodium Potassium Chloride Carbon Dioxide BUN Creatinine Glucose POC Glucose 155 H 135 H Calcium Magnesium AST Total Creatine Kinase CK-MB (CK-2) Troponin T NT-Pro-B Natriuret Pep Total Protein Albumin HDL Cholesterol Allied health notes reviewed: nursing
[2019-02-10] MEDS: KEPPRA PO SCH ×2 (11:01→21:08)
[2019-02-10] MEDS: LOVENOX SUB-Q SCH (11:01)
[2019-02-10] MEDS: KENALOG TP SCH ×2 (11:02→23:34)
[2019-02-10] MEDS: PREVACID SOLUTAB FEEDTUBE SCH ×2 (11:02→21:08)
[2019-02-10] MEDS: COREG PO SCH ×2 (11:02→21:10)
[2019-02-10] MEDS: NORVASC PO SCH (11:02)
[2019-02-10] MEDS: BABY ASPIRIN PO SCH (11:02)
[2019-02-10] MEDS: SODIUM CHLORIDE FLUSH SYRINGE 10 ML IV SCH ×2 (11:03→21:09)
--- NOTE | 2019-02-10 12:51 | Progress Note ---
Assessment and Plan 73 yo F s/p laparoscopic assisted PEG tube placement, POD 1 Plan: 1. adv TF as tolerated 2. PEG tube care 3. may be discharged when medically cleared. will s/o D/W Family at bedside. Thank you, please call with questions. Subjective Date of service: 02/10/19 Narrative: Patient seen and examined. No overnight events. Tolerating TF via PEG Objective Vital Signs - 12hr 02/10/19 02/10/19 02/10/19 02:30 02:40 04:00 Temperature Pulse Rate 82 Pulse Rate [ 79 77 Anterior Bilateral Throughout] Respiratory Rate Respiratory 16 15 Rate [Anterior Bilateral Throughout] Blood Pressure O2 Sat by Pulse Oximetry O2 Sat by Pulse Oximetry [ Assessment] 02/10/19 02/10/19 02/10/19 04:22 08:00 08:13 Temperature 97.7 F Pulse Rate 80 Pulse Rate [ 80 81 Anterior Bilateral Throughout] Respiratory 20 Rate Respiratory 18 20 Rate [Anterior Bilateral Throughout] Blood Pressure 113/67 O2 Sat by Pulse 98 100 Oximetry O2 Sat by Pulse 100 Oximetry [ Assessment] 02/10/19 08:48 Temperature 96.8 F L Pulse Rate 80 Pulse Rate [ Anterior Bilateral Throughout] Respiratory 15 Rate Respiratory Rate [Anterior Bilateral Throughout] Blood Pressure 120/75 O2 Sat by Pulse 100 Oximetry O2 Sat by Pulse Oximetry [ Assessment] - General physical appearance Narrative Exam: Gen: not responsive CV: S1, S2+ resp; even and unlabored Abd: soft, NT, mildly distended. PEG site c/d/i at 1.5 cm at the skin Ext: no c/c/e - Labs 02/08/19 07:00 02/08/19 07:00
--- NOTE | 2019-02-10 14:01 | Progress Note ---
Assessment and Plan Assessment and plan: Patient is 73 yo woman with a history of hypertension, CAD s/p stent and COPD/emphesema, not on home Oxygen who presented to [facility] ED on 01/15/2019 after cardiac arrest. How long she was unresponsive/without oxygen is unknown. She was in PEA, given 2 rounds of IV Epinephrine, CPR, intubated , resuscitated, and brought to ED. She had seizures later same day, was started on keppra. She had CARMELINA on presentation, resolved in few days. She remained comatose, acute respiratory failure vent dependent. Trach and PEG was recommended. Tracheostomy done 01/25/19. PEG not done yet because of abdominal distension and poor light translumination. She has poor prognosis and may need LTAC Oropharyngeal dysphagia. PEG tube pending Anoxic encephalopathy, severe irreversible brain damage: EEG 01/17/19 reported as abnormal with minimal brain activity. No epileptiform discharges. Neurology following, supportive care Cardiopulmonary arrest. Patient with out of hospital PEA arrest and ROSC. Cardiology following. Acute hypoxemic hypercapnic respiratory failure. Patient previously on mechanical ventilation but has been weaned. Continue TP trials. Continue trach care. Aspiration pneumonia. Completed treatment Aspiration precautions. Sepsis, poa. Complete Pneumonia treatment ID following. Acute renal failure, tubular necrosis and vasomotor nephropathy, poa. resolved, Etiology likely secondary to acute kidney injury from sepsis. Creatinine is stable. Continue to monitor. Pulmonary hypertension. Tourist Escort following Acute systolic heart failure. Patient with moderate global hypokinesis of left ventricle EF 35-40% and left ventricular systolic function moderately decreased. 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 History Interval history: Patient was seen and examined. Follow-up on current diagnosis of Cardiac arrest. No overnight events reported to me. Patient nonverbal. Imaging, nursing note, chart, labs and old chart reviewed. Hospitalist Physical - Physical exam Narrative exam: Gen: ill appearing, cachetic, unresponsive, comatose HEENT: NCAT, trach in place Neck: supple, no adenopathy, no thyromegaly, no JVD CVS/Heart: RRR, normal S1S2, pulses present bilaterally Chest/Lungs: diminished bs bilateral, Symmetrical chest expansion, good air entry bilaterally GI/Abdomen: soft, NTND, good bowel sounds, no guarding or rebound Extermity/Skin: no obvious rash MSK: unresponsive Neuro: unresponsive Psych: unresponsive - Constitutional Vitals: Temp Pulse Resp BP Pulse Ox 96.8 F L 80 15 120/75 100 02/10/19 08:48 02/10/19 08:48 02/10/19 08:48 02/10/19 08:48 02/10/19 08:48 General appearance: Present: other (trached, nonresponsive at time of examination) Results - Labs CBC & Chem 7: 02/08/19 07:00 02/08/19 07:00 Labs: Laboratory Last Values WBC 9.6 K/mm3 (4.5-11.0) 02/08/19 07:00 RBC 3.12 M/mm3 (3.65-5.03) L 02/08/19 07:00 Hgb 8.9 gm/dl (10.1-14.3) L 02/08/19 07:00 Hct 26.7 % (30.3-42.9) L 02/08/19 07:00 MCV 86 fl (79-97) 02/08/19 07:00 MCH 29 pg (28-32) 02/08/19 07:00 MCHC 34 % (30-34) 02/08/19 07:00 RDW 14.7 % (13.2-15.2) 02/08/19 07:00 Plt Count 182 K/mm3 (140-440) 02/08/19 07:00 Lymph % (Auto) 9.5 % (13.4-35.0) L 02/08/19 07:00 [place] % (Auto) 5.3 % (0.0-7.3) 02/08/19 07:00 Eos % (Auto) 0.5 % (0.0-4.3) 02/08/19 07:00 Baso % (Auto) 0.2 % (0.0-1.8) 02/08/19 07:00 Lymph # 0.9 K/mm3 (1.2-5.4) L 02/08/19 07:00 [place] # 0.5 K/mm3 (0.0-0.8) 02/08/19 07:00 Eos # 0.0 K/mm3 (0.0-0.4) 02/08/19 07:00 Baso # 0.0 K/mm3 (0.0-0.1) 02/08/19 07:00 Add Manual Diff Complete 01/16/19 04:16 Total Counted 100 01/16/19 04:16 Seg Neutrophils % 84.5 % (40.0-70.0) H 02/08/19 07:00 Seg Neuts % (Manual) 74.0 % (40.0-70.0) H 01/16/19 04:16 22.0 % 01/16/19 04:16 2.0 % (13.4-35.0) L 01/16/19 04:16 Reactive Lymphs % (Man) 0 % 01/16/19 04:16 2.0 % (0.0-7.3) 01/16/19 04:16 0 % (0.0-4.3) 01/16/19 04:16 0 % (0.0-1.8) 01/16/19 04:16 0 % 01/16/19 04:16 0 % 01/16/19 04:16 0 % 01/16/19 04:16 0 % 01/16/19 04:16 Nucleated RBC % Not Reportable 01/16/19 04:16 Seg Neutrophils # 8.1 K/mm3 (1.8-7.7) H 02/08/19 07:00 Seg Neutrophils # Man 8.4 K/mm3 (1.8-7.7) H 01/16/19 04:16 Band Neutrophils # 2.5 K/mm3 01/16/19 04:16 0.2 K/mm3 (1.2-5.4) L 01/16/19 04:16 Abs React Lymphs (Man) 0.0 K/mm3 01/16/19 04:16 0.2 K/mm3 (0.0-0.8) 01/16/19 04:16 0.0 K/mm3 (0.0-0.4) 01/16/19 04:16 0.0 K/mm3 (0.0-0.1) 01/16/19 04:16 0.0 K/mm3 01/16/19 04:16 0.0 K/mm3 01/16/19 04:16 0.0 K/mm3 01/16/19 04:16 Blast Cells # 0.0 K/mm3 01/16/19 04:16 WBC Morphology Not Reportable 01/16/19 04:16 Hypersegmented Neuts Not Reportable 01/16/19 04:16 Hyposegmented Neuts Not Reportable 01/16/19 04:16 Hypogranular Neuts Not Reportable 01/16/19 04:16 Not Reportable 01/16/19 04:16 Not Reportable 01/16/19 04:16 Not Reportable 01/16/19 04:16 Not Reportable 01/16/19 04:16 Not Reportable 01/16/19 04:16 Not Reportable 01/16/19 04:16 Consistent w auto 01/16/19 04:16 Not Reportable 01/16/19 04:16 Plt Clumps, EDTA Not Reportable 01/16/19 04:16 Not Reportable 01/16/19 04:16 Not Reportable 01/16/19 04:16 Not Reportable 01/16/19 04:16 Plt Morphology Comment Not Reportable 01/16/19 04:16 RBC Morphology Normal 01/16/19 04:16 Dimorphic RBCs Not Reportable 01/16/19 04:16 Not Reportable 01/16/19 04:16 Not Reportable 01/16/19 04:16 Not Reportable 01/16/19 04:16 Not Reportable 01/16/19 04:16 Not Reportable 01/16/19 04:16 Not Reportable 01/16/19 04:16 Not Reportable 01/16/19 04:16 Not Reportable 01/16/19 04:16 Not Reportable 01/16/19 04:16 Not Reportable 01/16/19 04:16 Not Reportable 01/16/19 04:16 Not Reportable 01/16/19 04:16 Not Reportable 01/16/19 04:16 Not Reportable 01/16/19 04:16 Not Reportable 01/16/19 04:16 Not Reportable 01/16/19 04:16 Not Reportable 01/16/19 04:16 Not Reportable 01/16/19 04:16 Not Reportable 01/16/19 04:16 Acanthocytes (Spur) Not Reportable 01/16/19 04:16 Rouleaux Not Reportable 01/16/19 04:16 Not Reportable 01/16/19 04:16 Not Reportable 01/16/19 04:16 Not Reportable 01/16/19 04:16 Not Reportable 01/16/19 04:16 Hem Pathologist Commnt No 01/16/19 04:16 PT 18.8 Sec. (12.2-14.9) H 01/25/19 05:15 INR 1.47 (0.87-1.13) H 01/25/19 05:15 APTT 36.0 Sec. (24.2-36.6) 01/15/19 07:50 Heparin Anti-Xa, Unfract Negative (Negative) 01/19/19 Unknown POC ABG pH 7.508 (7.35-7.45) H 01/30/19 16:47 POC ABG pCO2 31.5 (35-45) L 01/30/19 16:47 POC ABG pO2 135 (80-105) H 01/30/19 16:47 POC ABG HCO3 25.0 (22-26 mml/L) 01/30/19 16:47 POC ABG Total CO2 26 (23-27mmol/L) 01/30/19 16:47 POC ABG O2 Sat 99 01/30/19 16:47 POC ABG Base Excess 2 ((-2) - (+3)mmol/L) 01/30/19 16:47 28 % 01/30/19 16:47 Sodium 135 mmol/L (137-145) L 02/08/19 07:00 Potassium 4.3 mmol/L (3.6-5.0) 02/08/19 07:00 Chloride 91.1 mmol/L (98-107) L 02/08/19 07:00 Carbon Dioxide 33 mmol/L (22-30) H 02/08/19 07:00 15 mmol/L 02/08/19 07:00 BUN 44 mg/dL (7-17) H 02/08/19 07:00 0.9 mg/dL (0.7-1.2) 02/08/19 07:00 Estimated GFR > 60 ml/min 02/08/19 07:00 49 % 02/08/19 07:00 Glucose 166 mg/dL (65-100) H 02/08/19 07:00 POC Glucose 165 (70-105) H 02/10/19 11:46 6.0 % (4-6) 01/15/19 11:53 Calcium 9.1 mg/dL (8.4-10.2) 02/08/19 07:00 Phosphorus 3.10 mg/dL (2.5-4.5) 02/02/19 06:00 Magnesium 1.60 mg/dL (1.7-2.3) L 02/02/19 06:00 0.30 mg/dL (0.1-1.2) 01/23/19 Unknown AST 88 units/L (5-40) H 01/23/19 Unknown ALT 31 units/L (7-56) 01/23/19 Unknown 48 units/L (35-129) 01/23/19 Unknown 1430 units/L (30-135) H 01/15/19 17:52 CK-MB (CK-2) 13.5 ng/mL (0.0-4.0) H 01/15/19 17:52 CK-MB (CK-2) Rel Index 0.9 (0-4) 01/15/19 17:52 0.036 ng/mL (0.00-0.029) H D 01/15/19 17:52 NT-Pro-B Natriuret Pep 5346 pg/mL (0-900) H 01/15/19 07:50 6.0 g/dL (6.3-8.2) L 01/23/19 Unknown 2.9 g/dL (3.9-5) L 01/23/19 Unknown 0.9 % 01/23/19 Unknown Triglycerides 75 mg/dL (2-149) 01/15/19 17:52 Cholesterol 149 mg/dL (50-199) 01/15/19 17:52 84 mg/dL (50-130) 01/15/19 17:52 65 mg/dL (40-59) H 01/15/19 17:52 2.29 % 01/15/19 17:52 See scanned report 01/19/19 Unknown Yellow (Yellow) 01/21/19 16:10 Clear (Clear) 01/21/19 16:10 6.0 (5.0-7.0) 01/21/19 16:10 Ur Specific [place] 1.015 (1.003-1.030) 01/21/19 16:10 <15 mg/dl mg/dL (Negative) 01/21/19 16:10 Neg mg/dL (Negative) 01/21/19 16:10 Neg mg/dL (Negative) 01/21/19 16:10 Neg (Negative) 01/21/19 16:10 Neg (Negative) 01/21/19 16:10 Neg (Negative) 01/21/19 16:10 2.0 mg/dL (<2.0) 01/21/19 16:10 Ur Leukocyte Esterase Neg (Negative) 01/21/19 16:10 1.0 /HPF (0.0-6.0) 01/21/19 16:10 5.0 /HPF (0.0-6.0) 01/21/19 16:10 Presumptive negative 01/15/19 16:30 Presumptive negative 01/15/19 16:30 Ur Barbiturates Screen Presumptive negative 01/15/19 16:30 Ur Phencyclidine Scrn Presumptive negative 01/15/19 16:30 Ur Amphetamines Screen Presumptive negative 01/15/19 16:30 U Benzodiazepines Scrn Presumptive negative 01/15/19 16:30 Presumptive negative 01/15/19 16:30 U Marijuana (THC) Screen Presumptive negative 01/15/19 16:30 Disclamer 01/15/19 16:30 Heparin-induced Plt Ab Negative (Negative) 01/19/19 Unknown UF Heparin High Dose 3 % Release 01/19/19 Unknown JOSEFA UFH Low Dose 0.1 4 % Release 01/19/19 Unknown JOSEFA UFH Low Dose 0.5 5 % Release 01/19/19 Unknown C. difficile Tox (PCR) Negative (Negative) 01/16/19 00:00 Active Medications - Current Medications Current Medications: Generic Name Dose Route Start Last Admin Trade Name Freq PRN Reason Stop Dose Admin Acetaminophen 650 mg 01/16/19 09:37 01/20/19 00:24 Tylenol PO 650 mg Q4H PRN Administration Fever >101 Albuterol/Ipratropium 1 ampul 01/15/19 14:00 02/10/19 08:00 Duoneb *Not For Prn Use* IH 1 ampul Q6HRT DEON Administration Amlodipine Besylate 10 mg 01/24/19 12:00 02/10/19 11:02 Norvasc PO 10 mg DAILY DEON Administration Lipase/Protease/Amylase 1 each 02/02/19 14:21 Pancreaze 10,500 Unit FEEDTUBE PRN PRN For Clogged Feeding Tube Aspirin 81 mg 01/16/19 10:00 02/10/19 11:02 Baby Aspirin PO 81 mg QDAY DEON Administration Atorvastatin Calcium 20 mg 01/16/19 22:00 02/09/19 21:57 Lipitor PO 20 mg QHS DEON Administration Carvedilol 12.5 mg 01/24/19 22:00 02/10/19 11:02 Coreg PO 12.5 mg BID DEON Administration Enoxaparin Sodium 40 mg 01/30/19 10:00 02/10/19 11:01 Lovenox SUB-Q 40 mg QDAY@1000 DEON Administration Furosemide 20 mg 01/19/19 18:00 02/10/19 05:37 Lasix PO 20 mg 0600,1800 DEON Administration Insulin Human Lispro 0 unit 01/22/19 14:00 02/10/19 12:58 Humalog SUB-Q 2 unit Q6HR DEON Administration Protocol Lansoprazole 30 mg 01/30/19 10:00 02/10/19 11:02 Prevacid Solutab FEEDTUBE 30 mg BID DEON Administration Levetiracetam 750 mg 01/18/19 10:00 02/10/19 11:01 Keppra PO 750 mg BID DEON Administration Metoclopramide HCl 10 mg 02/01/19 14:00 02/10/19 13:23 Reglan IV 10 mg Q8HR DEON Administration Scopolamine 1 each 02/09/19 16:00 02/09/19 21:57 Transderm-Scop TD 1 each Q3D DEON Administration Simple Syrup 15 ml 02/02/19 14:21 Simple Syrup FEEDTUBE PRN PRN Hypoglycemia Simple Syrup 30 ml 02/02/19 14:21 Simple Syrup FEEDTUBE PRN PRN Hypoglycemia Sodium Bicarbonate 325 mg 02/02/19 14:21 Sodium Bicarbonate FEEDTUBE PRN PRN For Clogged Feeding Tube Sodium Chloride 10 ml 01/15/19 22:00 02/10/19 11:03 Sodium Chloride Flush Syringe 10 Ml IV 10 ml BID DEON Administration Sodium Chloride 10 ml 01/15/19 10:34 02/08/19 06:35 Sodium Chloride Flush Syringe 10 Ml IV 10 ml PRN PRN Administration LINE FLUSH Triamcinolone Acetonide 1 applic 01/24/19 14:00 02/10/19 11:02 Kenalog TP 1 applic BID DEON Administration Nutrition/Malnutrition Assess - Dietary Evaluation Nutrition/Malnutrition Findings: Nutrition Notes Start: 01/15/19 14:28 Freq: Status: Active Protocol: Document 02/05/19 14:19 RM (Rec: 02/05/19 14:26 RM [id number]) Nutrition Notes Initial or Follow up Reassessment Current Diagnosis Acute Kidney Injury,Heart Failure,Respiratory Failure Other Pertinent Diagnosis dysphagia, s/p cardiorespiratory arrest (at home), Aspiration Pneu Current Diet Glucerna 1.2 at 50 ml/hr Labs/Tests Na 138 Pertinent Medications Lasix Height 5 ft 4 in Weight 47.7 kg [place] Body Weight (kg) 54.54 BMI 18.0 Subjective/Other Information Observed Glucerna 1.2 infusing at 50 ml/hr. Pt is tolerating TF per nurse. Percent of energy/protein needs met: 86%/100% Burn Absent Trauma Absent #1 Nutrition Diagnosis Inadequate oral intake Diagnosis Progress(for reassessment Continues documentation) Is patient on ventilator? No Is Patient Ambulatory and/or Out of Bed No REE-([facility]-confined to bed) 1155.024 Kcal/Kg value to use for calculation 35 Approximate Energy Requirements Using 1670 kcal/Kg Calculation Used for Recommendations Kcal/kg Additional Notes Pro needs 1-1.2g/k-57g/day Fluid needs 1ml/kcal Nutrition Intervention Nutrition Support: Glucerna 1.2 at 50ml/hr with 80ml water flush q4h. Kcal 1,440 Protein (gm) 72 Carbohydrates (gm) 137 Fluid (mL) 966 Fiber (gm) 19 Goal #1 Continue to meet at least 75% of calorie and protein needs via TF Goal #2 Wt maintenance and/or gain Follow-Up By: 02/13/19 Additional Comments Follow for TF tolerance
[2019-02-11] MEDS: HumaLOG SUB-Q SCH ×3 (00:01→17:28)
[2019-02-11] MEDS: DUONEB *Not for PRN Use IH SCH ×4 (01:47→19:15)
[2019-02-11] MEDS: REGLAN IV SCH ×3 (05:16→23:18)
[2019-02-11] MEDS: LASIX PO SCH ×2 (05:16→17:44)
--- NOTE | 2019-02-11 06:52 | Progress Note ---
Assessment and Plan s/p Cardiopulmonary arrest, out of hospital, PEA with ROSC Acute hypoxic-hypercapnic respiratory failure on MVS Acute encephalopathy, metabolic Acute metabolic acidosis Acute renal injury Seizure activity Right lower lobe infiltrate, probably aspiration Pyrexia with leukocytosis Pulmonary HTN RVSP 60 Systolic heart failure EF 35-40% Thrombocytopenia, resolved Pyrexia s/p PEG placement Continue with ATC as tolerated Continue small bowel feeding Wean supplemental oxygen to keep O2 sats 88-90% Trach care, secretion management, airway clearance -PRN ABGs/CXR -Avoid nephrotoxic agents, -VTE prophylaxis -Aspiration precautions -Accuchecks with glycemic control. Target glucose of 140-180 mg/dL -Bronchodilators with pulmonary hygiene per RT -Mobility as tolerated by hemodynamics -Influenza and pneumonia vaccination per protocol -Care plan discussed with hospitalist service Discharge planning PROGNOSIS:poor watermaster CONDITION: FAIR CODE STATUS: FULL CODE Subjective Date of service: 02/11/19 Principal diagnosis: OOH cardiac arrest; Acute hypoxemic-hypercapnic Resp failure; PNA Interval history: Patient is seen today for: OOH cardiopulmonary arrest with ROSC; Acute hypoxemic-hypercapnic respiratory failure s/p MVS; acute encephalopathy; aspiration pneumonia; s/p tracheostomy; ileus Seen and examined at bedside; 24-hour events reviewed; nursing and respiratory care staff consulted; no adverse overnight events reported to me; no fevers, no vomiting, no fevers, tolerating ATP , off MVS, Persistent encephalopathy, s/p PEG, uneventful. Back on tube feedings and is tolerating it. Opens eyes on tactile stimulation Objective Vital Signs - 12hr 02/10/19 02/10/19 02/10/19 19:56 20:00 20:08 Temperature 98.1 F Pulse Rate 90 Pulse Rate [ 87 Anterior Bilateral Throughout] Pulse Rate [ From Monitor] Respiratory 20 Rate Respiratory 18 Rate [Anterior Bilateral Throughout] Blood Pressure 113/65 O2 Sat by Pulse 100 100 Oximetry O2 Sat by Pulse Oximetry [ Assessment] 02/10/19 02/10/19 02/11/19 20:18 22:00 01:48 Temperature Pulse Rate Pulse Rate [ 85 94 H Anterior Bilateral Throughout] Pulse Rate [ 90 From Monitor] Respiratory 20 Rate Respiratory 18 18 Rate [Anterior Bilateral Throughout] Blood Pressure O2 Sat by Pulse Oximetry O2 Sat by Pulse Oximetry [ Assessment] 02/11/19 02/11/19 01:54 04:22 Temperature 98.9 F Pulse Rate 99 H Pulse Rate [ Anterior Bilateral Throughout] Pulse Rate [ From Monitor] Respiratory 40 H Rate Respiratory Rate [Anterior Bilateral Throughout] Blood Pressure 137/77 O2 Sat by Pulse 96 Oximetry O2 Sat by Pulse 99 Oximetry [ Assessment] Constitutional: no acute distress, asleep, other (elderly, atraumatic, normocephalic, chronically looking female) Eyes: non-icteric ENT: oropharynx moist, other (s/p tracheostomy) Neck: supple, no lymphadenopathy, no JVD Effort: normal Ascultation: Bilateral: clear, diminished breath sounds, rales (bases), rhonchi (scant), other (coarse breath sound bilaterally upper lobes anteriorly) Percussion: Bilateral: not dull Cardiovascular: regular rate and rhythm, other (tacycardia, S1,S2, no murmurs, gallops or rubs) Gastrointestinal: normoactive bowel sounds, soft, non-tender, non-distended, other (PEG in place) Integumentary: normal Extremities: no cyanosis, no edema, pulses normal, no ischemia or petechiae Neurologic: unable to assess Psychiatric: other (unable to assess secondary to mental status) CBC and BMP: 02/08/19 07:00 02/08/19 07:00 ABG, PT/INR, D-dimer: ABG POC ABG pH 7.508 (7.35-7.45) H 01/30/19 16:47 POC ABG pCO2 31.5 (35-45) L 01/30/19 16:47 POC ABG pO2 135 (80-105) H 01/30/19 16:47 POC ABG HCO3 25.0 (22-26 mml/L) 01/30/19 16:47 POC ABG Total CO2 26 (23-27mmol/L) 01/30/19 16:47 POC ABG O2 Sat 99 01/30/19 16:47 PT/INR, D-dimer PT 18.8 Sec. (12.2-14.9) H 01/25/19 05:15 INR 1.47 (0.87-1.13) H 01/25/19 05:15 Abnormal lab findings: Abnormal Labs 01/15/19 01/15/19 01/15/19 07:50 07:50 07:50 WBC RBC Hgb Hct MCV 99 H RDW 16.7 H Plt Count 122 L Lymph % (Auto) [place] % (Auto) Lymph # Seg Neutrophils % Seg Neuts % (Manual) Lymphocytes % (Manual) Seg Neutrophils # Seg Neutrophils # Man Lymphocytes # (Manual) PT 19.7 H INR 1.56 H POC ABG pH POC ABG pCO2 POC ABG pO2 Sodium Potassium Chloride Carbon Dioxide 11 L BUN Creatinine 1.4 H Glucose 268 H POC Glucose Calcium Magnesium AST 57 H Total Creatine Kinase CK-MB (CK-2) Troponin T NT-Pro-B Natriuret Pep 5346 H Total Protein Albumin 3.6 L HDL Cholesterol 01/15/19 01/15/19 01/15/19 09:56 11:53 17:52 WBC RBC Hgb Hct MCV RDW Plt Count Lymph % (Auto) [place] % (Auto) Lymph # Seg Neutrophils % Seg Neuts % (Manual) Lymphocytes % (Manual) Seg Neutrophils # Seg Neutrophils # Man Lymphocytes # (Manual) PT INR POC ABG pH 7.186 L POC ABG pCO2 46.4 H POC ABG pO2 Sodium Potassium Chloride Carbon Dioxide BUN Creatinine Glucose POC Glucose Calcium Magnesium AST Total Creatine Kinase 683 H 1430 H CK-MB (CK-2) 9.5 H 13.5 H Troponin T 0.036 H D NT-Pro-B Natriuret Pep Total Protein Albumin HDL Cholesterol 65 H 01/15/19 01/15/19 01/16/19 18:31 21:46 02:14 WBC RBC Hgb Hct MCV RDW Plt Count Lymph % (Auto) [place] % (Auto) Lymph # Seg Neutrophils % Seg Neuts % (Manual) Lymphocytes % (Manual) Seg Neutrophils # Seg Neutrophils # Man Lymphocytes # (Manual) PT INR POC ABG pH POC ABG pCO2 31.8 L POC ABG pO2 167 H Sodium Potassium Chloride Carbon Dioxide BUN Creatinine Glucose POC Glucose 134 H 136 H Calcium Magnesium AST Total Creatine Kinase CK-MB (CK-2) Troponin T NT-Pro-B Natriuret Pep Total Protein Albumin HDL Cholesterol 01/16/19 01/16/19 01/16/19 04:16 04:16 05:05 WBC 11.4 H RBC Hgb Hct MCV RDW Plt Count 105 L Lymph % (Auto) [place] % (Auto) Lymph # Seg Neutrophils % Seg Neuts % (Manual) 74.0 H Lymphocytes % (Manual) 2.0 L Seg Neutrophils # Seg Neutrophils # Man 8.4 H Lymphocytes # (Manual) 0.2 L PT INR POC ABG pH 7.458 H POC ABG pCO2 31.4 L POC ABG pO2 135 H Sodium Potassium 3.3 L Chloride Carbon Dioxide 21 L D BUN 24 H Creatinine 1.5 H Glucose 141 H POC Glucose Calcium 8.1 L Magnesium AST 71 H Total Creatine Kinase CK-MB (CK-2) Troponin T NT-Pro-B Natriuret Pep Total Protein 6.2 L Albumin 3.5 L HDL Cholesterol 01/16/19 01/16/19 01/16/19 05:24 13:42 21:08 WBC RBC Hgb Hct MCV RDW Plt Count Lymph % (Auto) [place] % (Auto) Lymph # Seg Neutrophils % Seg Neuts % (Manual) Lymphocytes % (Manual) Seg Neutrophils # Seg Neutrophils # Man Lymphocytes # (Manual) PT INR POC ABG pH POC ABG pCO2 POC ABG pO2 Sodium Potassium Chloride Carbon Dioxide BUN Creatinine Glucose POC Glucose 137 H 129 H 122 H Calcium Magnesium AST Total Creatine Kinase CK-MB (CK-2) Troponin T NT-Pro-B Natriuret Pep Total Protein Albumin HDL Cholesterol 01/17/19 01/17/19 01/17/19 02:18 04:23 05:13 WBC RBC Hgb Hct MCV RDW Plt Count Lymph % (Auto) [place] % (Auto) Lymph # Seg Neutrophils % Seg Neuts % (Manual) Lymphocytes % (Manual) Seg Neutrophils # Seg Neutrophils # Man Lymphocytes # (Manual) PT INR POC ABG pH 7.479 H POC ABG pCO2 30.0 L POC ABG pO2 141 H Sodium Potassium Chloride Carbon Dioxide BUN Creatinine Glucose POC Glucose 139 H 128 H Calcium Magnesium AST Total Creatine Kinase CK-MB (CK-2) Troponin T NT-Pro-B Natriuret Pep Total Protein Albumin HDL Cholesterol 01/17/19 01/17/19 01/17/19 10:22 15:59 18:45 WBC RBC Hgb Hct MCV RDW Plt Count Lymph % (Auto) [place] % (Auto) Lymph # Seg Neutrophils % Seg Neuts % (Manual) Lymphocytes % (Manual) Seg Neutrophils # Seg Neutrophils # Man Lymphocytes # (Manual) PT INR POC ABG pH POC ABG pCO2 POC ABG pO2 Sodium Potassium Chloride Carbon Dioxide BUN Creatinine Glucose POC Glucose 133 H 121 H 106 H Calcium Magnesium AST Total Creatine Kinase CK-MB (CK-2) Troponin T NT-Pro-B Natriuret Pep Total Protein Albumin HDL Cholesterol 01/17/19 01/18/19 01/18/19 23:35 04:21 04:21 WBC RBC 3.27 L Hgb 9.6 L Hct 29.9 L MCV RDW Plt Count 79 L Lymph % (Auto) 6.0 L [place] % (Auto) Lymph # 0.5 L Seg Neutrophils % 89.2 H Seg Neuts % (Manual) Lymphocytes % (Manual) Seg Neutrophils # 8.1 H Seg Neutrophils # Man Lymphocytes # (Manual) PT INR POC ABG pH POC ABG pCO2 POC ABG pO2 Sodium Potassium Chloride Carbon Dioxide BUN 28 H Creatinine 1.3 H Glucose 129 H POC Glucose 121 H Calcium Magnesium AST 120 H Total Creatine Kinase CK-MB (CK-2) Troponin T NT-Pro-B Natriuret Pep Total Protein 5.1 L Albumin 3.0 L HDL Cholesterol 01/18/19 01/18/19 01/18/19 04:21 04:36 05:43 WBC RBC Hgb Hct MCV RDW Plt Count Lymph % (Auto) [place] % (Auto) Lymph # Seg Neutrophils % Seg Neuts % (Manual) Lymphocytes % (Manual) Seg Neutrophils # Seg Neutrophils # Man Lymphocytes # (Manual) PT INR POC ABG pH 7.485 H POC ABG pCO2 31.0 L POC ABG pO2 126 H Sodium Potassium Chloride Carbon Dioxide BUN 28 H Creatinine 1.3 H Glucose 128 H POC Glucose 142 H Calcium Magnesium AST Total Creatine Kinase CK-MB (CK-2) Troponin T NT-Pro-B Natriuret Pep Total Protein Albumin HDL Cholesterol 01/18/19 01/18/19 01/18/19 12:04 18:16 20:47 WBC RBC Hgb Hct MCV RDW Plt Count Lymph % (Auto) [place] % (Auto) Lymph # Seg Neutrophils % Seg Neuts % (Manual) Lymphocytes % (Manual) Seg Neutrophils # Seg Neutrophils # Man Lymphocytes # (Manual) PT INR POC ABG pH 7.489 H POC ABG pCO2 32.8 L POC ABG pO2 Sodium Potassium Chloride Carbon Dioxide BUN Creatinine Glucose POC Glucose 113 H 119 H Calcium Magnesium AST Total Creatine Kinase CK-MB (CK-2) Troponin T NT-Pro-B Natriuret Pep Total Protein Albumin HDL Cholesterol 01/19/19 01/19/19 01/19/19 00:40 05:35 11:39 WBC RBC Hgb Hct MCV RDW Plt Count Lymph % (Auto) [place] % (Auto) Lymph # Seg Neutrophils % Seg Neuts % (Manual) Lymphocytes % (Manual) Seg Neutrophils # Seg Neutrophils # Man Lymphocytes # (Manual) PT INR POC ABG pH POC ABG pCO2 POC ABG pO2 Sodium Potassium Chloride Carbon Dioxide BUN Creatinine Glucose POC Glucose 137 H 157 H 155 H Calcium Magnesium AST Total Creatine Kinase CK-MB (CK-2) Troponin T NT-Pro-B Natriuret Pep Total Protein Albumin HDL Cholesterol 01/19/19 01/19/19 01/19/19 18:24 21:08 23:33 WBC RBC Hgb Hct MCV RDW Plt Count Lymph % (Auto) [place] % (Auto) Lymph # Seg Neutrophils % Seg Neuts % (Manual) Lymphocytes % (Manual) Seg Neutrophils # Seg Neutrophils # Man Lymphocytes # (Manual) PT INR POC ABG pH 7.508 H POC ABG pCO2 34.2 L POC ABG pO2 Sodium Potassium Chloride Carbon Dioxide BUN Creatinine Glucose POC Glucose 145 H 156 H Calcium Magnesium AST Total Creatine Kinase CK-MB (CK-2) Troponin T NT-Pro-B Natriuret Pep Total Protein Albumin HDL Cholesterol 01/20/19 01/20/19 01/20/19 05:12 11:42 17:36 WBC RBC Hgb Hct MCV RDW Plt Count Lymph % (Auto) [place] % (Auto) Lymph # Seg Neutrophils % Seg Neuts % (Manual) Lymphocytes % (Manual) Seg Neutrophils # Seg Neutrophils # Man Lymphocytes # (Manual) PT INR POC ABG pH POC ABG pCO2 POC ABG pO2 Sodium Potassium Chloride Carbon Dioxide BUN Creatinine Glucose POC Glucose 152 H 159 H 169 H Calcium Magnesium AST Total Creatine Kinase CK-MB (CK-2) Troponin T NT-Pro-B Natriuret Pep Total Protein Albumin HDL Cholesterol 01/20/19 01/21/19 01/21/19 23:29 05:30 05:34 WBC RBC Hgb Hct MCV RDW Plt Count Lymph % (Auto) [place] % (Auto) Lymph # Seg Neutrophils % Seg Neuts % (Manual) Lymphocytes % (Manual) Seg Neutrophils # Seg Neutrophils # Man Lymphocytes # (Manual) PT INR POC ABG pH 7.616 H POC ABG pCO2 POC ABG pO2 71 L Sodium Potassium Chloride Carbon Dioxide BUN Creatinine Glucose POC Glucose 139 H 138 H Calcium Magnesium AST Total Creatine Kinase CK-MB (CK-2) Troponin T NT-Pro-B Natriuret Pep Total Protein Albumin HDL Cholesterol 01/21/19 01/21/19 01/22/19 12:41 18:47 00:07 WBC RBC Hgb Hct MCV RDW Plt Count Lymph % (Auto) [place] % (Auto) Lymph # Seg Neutrophils % Seg Neuts % (Manual) Lymphocytes % (Manual) Seg Neutrophils # Seg Neutrophils # Man Lymphocytes # (Manual) PT INR POC ABG pH POC ABG pCO2 POC ABG pO2 Sodium Potassium Chloride Carbon Dioxide BUN Creatinine Glucose POC Glucose 154 H 174 H 163 H Calcium Magnesium AST Total Creatine Kinase CK-MB (CK-2) Troponin T NT-Pro-B Natriuret Pep Total Protein Albumin HDL Cholesterol 01/22/19 01/22/19 01/22/19 04:35 05:46 12:18 WBC RBC Hgb Hct MCV RDW Plt Count Lymph % (Auto) [place] % (Auto) Lymph # Seg Neutrophils % Seg Neuts % (Manual) Lymphocytes % (Manual) Seg Neutrophils # Seg Neutrophils # Man Lymphocytes # (Manual) PT INR POC ABG pH 7.522 H POC ABG pCO2 POC ABG pO2 Sodium Potassium Chloride Carbon Dioxide BUN Creatinine Glucose POC Glucose 159 H 137 H Calcium Magnesium AST Total Creatine Kinase CK-MB (CK-2) Troponin T NT-Pro-B Natriuret Pep Total Protein Albumin HDL Cholesterol 01/22/19 01/22/19 01/22/19 15:00 15:00 18:13 WBC RBC 2.92 L Hgb 8.4 L Hct 25.6 L MCV RDW Plt Count Lymph % (Auto) [place] % (Auto) Lymph # Seg Neutrophils % Seg Neuts % (Manual) Lymphocytes % (Manual) Seg Neutrophils # Seg Neutrophils # Man Lymphocytes # (Manual) PT INR POC ABG pH POC ABG pCO2 POC ABG pO2 Sodium Potassium Chloride 97.0 L Carbon Dioxide BUN 37 H Creatinine Glucose 162 H POC Glucose 159 H Calcium 8.2 L Magnesium AST Total Creatine Kinase CK-MB (CK-2) Troponin T NT-Pro-B Natriuret Pep Total Protein Albumin HDL Cholesterol 01/22/19 01/23/19 01/23/19 22:45 00:01 05:10 WBC RBC 2.92 L Hgb 8.5 L Hct 25.4 L MCV RDW Plt Count Lymph % (Auto) 6.3 L [place] % (Auto) Lymph # 0.6 L Seg Neutrophils % 86.3 H Seg Neuts % (Manual) Lymphocytes % (Manual) Seg Neutrophils # 8.9 H Seg Neutrophils # Man Lymphocytes # (Manual) PT INR POC ABG pH POC ABG pCO2 POC ABG pO2 Sodium Potassium Chloride Carbon Dioxide BUN Creatinine Glucose POC Glucose 178 H 155 H Calcium Magnesium AST Total Creatine Kinase CK-MB (CK-2) Troponin T NT-Pro-B Natriuret Pep Total Protein Albumin HDL Cholesterol 01/23/19 01/23/19 01/23/19 11:31 17:49 Unknown WBC RBC Hgb Hct MCV RDW Plt Count Lymph % (Auto) [place] % (Auto) Lymph # Seg Neutrophils % Seg Neuts % (Manual) Lymphocytes % (Manual) Seg Neutrophils # Seg Neutrophils # Man Lymphocytes # (Manual) PT INR POC ABG pH POC ABG pCO2 POC ABG pO2 Sodium Potassium Chloride 95.4 L Carbon Dioxide BUN 37 H Creatinine Glucose 144 H POC Glucose 161 H 142 H Calcium Magnesium AST 88 H Total Creatine Kinase CK-MB (CK-2) Troponin T NT-Pro-B Natriuret Pep Total Protein 6.0 L Albumin 2.9 L HDL Cholesterol 01/24/19 01/24/19 01/24/19 00:21 05:36 12:35 WBC RBC Hgb Hct MCV RDW Plt Count Lymph % (Auto) [place] % (Auto) Lymph # Seg Neutrophils % Seg Neuts % (Manual) Lymphocytes % (Manual) Seg Neutrophils # Seg Neutrophils # Man Lymphocytes # (Manual) PT INR POC ABG pH POC ABG pCO2 POC ABG pO2 Sodium Potassium Chloride Carbon Dioxide BUN Creatinine Glucose POC Glucose 163 H 147 H 263 H Calcium Magnesium AST Total Creatine Kinase CK-MB (CK-2) Troponin T NT-Pro-B Natriuret Pep Total Protein Albumin HDL Cholesterol 01/24/19 01/24/19 01/24/19 17:46 23:07 Unknown WBC RBC 2.90 L Hgb 8.3 L Hct 25.0 L MCV RDW Plt Count Lymph % (Auto) [place] % (Auto) Lymph # Seg Neutrophils % Seg Neuts % (Manual) Lymphocytes % (Manual) Seg Neutrophils # Seg Neutrophils # Man Lymphocytes # (Manual) PT INR POC ABG pH POC ABG pCO2 POC ABG pO2 Sodium Potassium Chloride Carbon Dioxide BUN Creatinine Glucose POC Glucose 161 H 167 H Calcium Magnesium AST Total Creatine Kinase CK-MB (CK-2) Troponin T NT-Pro-B Natriuret Pep Total Protein Albumin HDL Cholesterol 01/24/19 01/25/19 01/25/19 Unknown 05:15 05:15 WBC RBC 2.90 L Hgb 8.4 L Hct 25.2 L MCV RDW Plt Count Lymph % (Auto) [place] % (Auto) Lymph # Seg Neutrophils % Seg Neuts % (Manual) Lymphocytes % (Manual) Seg Neutrophils # Seg Neutrophils # Man Lymphocytes # (Manual) PT INR POC ABG pH POC ABG pCO2 POC ABG pO2 Sodium 134 L 135 L Potassium Chloride 94.4 L 94.0 L Carbon Dioxide BUN 35 H 35 H Creatinine Glucose 151 H 128 H POC Glucose Calcium Magnesium AST Total Creatine Kinase CK-MB (CK-2) Troponin T NT-Pro-B Natriuret Pep Total Protein Albumin HDL Cholesterol 01/25/19 01/25/19 01/25/19 05:15 05:35 11:09 WBC RBC Hgb Hct MCV RDW Plt Count Lymph % (Auto) [place] % (Auto) Lymph # Seg Neutrophils % Seg Neuts % (Manual) Lymphocytes % (Manual) Seg Neutrophils # Seg Neutrophils # Man Lymphocytes # (Manual) PT 18.8 H INR 1.47 H POC ABG pH POC ABG pCO2 POC ABG pO2 Sodium Potassium Chloride Carbon Dioxide BUN Creatinine Glucose POC Glucose 126 H 149 H Calcium Magnesium AST Total Creatine Kinase CK-MB (CK-2) Troponin T NT-Pro-B Natriuret Pep Total Protein Albumin HDL Cholesterol 01/25/19 01/25/19 01/26/19 17:24 23:41 00:09 WBC RBC Hgb Hct MCV RDW Plt Count Lymph % (Auto) [place] % (Auto) Lymph # Seg Neutrophils % Seg Neuts % (Manual) Lymphocytes % (Manual) Seg Neutrophils # Seg Neutrophils # Man Lymphocytes # (Manual) PT INR POC ABG pH POC ABG pCO2 POC ABG pO2 Sodium Potassium Chloride Carbon Dioxide BUN Creatinine Glucose POC Glucose 140 H 142 H 156 H Calcium Magnesium AST Total Creatine Kinase CK-MB (CK-2) Troponin T NT-Pro-B Natriuret Pep Total Protein Albumin HDL Cholesterol 01/26/19 01/26/19 01/26/19 05:05 06:35 06:35 WBC RBC 2.83 L Hgb 8.1 L Hct 24.4 L MCV RDW Plt Count Lymph % (Auto) [place] % (Auto) Lymph # Seg Neutrophils % Seg Neuts % (Manual) Lymphocytes % (Manual) Seg Neutrophils # Seg Neutrophils # Man Lymphocytes # (Manual) PT INR POC ABG pH POC ABG pCO2 POC ABG pO2 Sodium Potassium Chloride 96.9 L Carbon Dioxide BUN 29 H Creatinine Glucose 141 H POC Glucose 159 H Calcium 8.3 L Magnesium AST Total Creatine Kinase CK-MB (CK-2) Troponin T NT-Pro-B Natriuret Pep Total Protein Albumin HDL Cholesterol 01/26/19 01/26/19 01/27/19 13:16 19:10 00:08 WBC RBC Hgb Hct MCV RDW Plt Count Lymph % (Auto) [place] % (Auto) Lymph # Seg Neutrophils % Seg Neuts % (Manual) Lymphocytes % (Manual) Seg Neutrophils # Seg Neutrophils # Man Lymphocytes # (Manual) PT INR POC ABG pH POC ABG pCO2 POC ABG pO2 Sodium Potassium Chloride Carbon Dioxide BUN Creatinine Glucose POC Glucose 159 H 146 H 140 H Calcium Magnesium AST Total Creatine Kinase CK-MB (CK-2) Troponin T NT-Pro-B Natriuret Pep Total Protein Albumin HDL Cholesterol 01/27/19 01/27/19 01/27/19 03:30 03:30 06:23 WBC RBC 2.85 L Hgb 8.3 L Hct 24.8 L MCV RDW Plt Count Lymph % (Auto) [place] % (Auto) Lymph # Seg Neutrophils % Seg Neuts % (Manual) Lymphocytes % (Manual) Seg Neutrophils # Seg Neutrophils # Man Lymphocytes # (Manual) PT INR POC ABG pH POC ABG pCO2 POC ABG pO2 Sodium 136 L Potassium Chloride 97.1 L Carbon Dioxide BUN 26 H Creatinine Glucose 129 H POC Glucose 154 H Calcium Magnesium AST Total Creatine Kinase CK-MB (CK-2) Troponin T NT-Pro-B Natriuret Pep Total Protein Albumin HDL Cholesterol 01/27/19 01/27/19 01/27/19 12:47 17:43 23:31 WBC RBC Hgb Hct MCV RDW Plt Count Lymph % (Auto) [place] % (Auto) Lymph # Seg Neutrophils % Seg Neuts % (Manual) Lymphocytes % (Manual) Seg Neutrophils # Seg Neutrophils # Man Lymphocytes # (Manual) PT INR POC ABG pH POC ABG pCO2 POC ABG pO2 Sodium Potassium Chloride Carbon Dioxide BUN Creatinine Glucose POC Glucose 159 H 180 H 164 H Calcium Magnesium AST Total Creatine Kinase CK-MB (CK-2) Troponin T NT-Pro-B Natriuret Pep Total Protein Albumin HDL Cholesterol 01/28/19 01/28/19 01/28/19 04:35 12:01 12:01 WBC RBC 2.67 L Hgb 7.9 L Hct 22.9 L MCV RDW Plt Count Lymph % (Auto) [place] % (Auto) Lymph # Seg Neutrophils % Seg Neuts % (Manual) Lymphocytes % (Manual) Seg Neutrophils # Seg Neutrophils # Man Lymphocytes # (Manual) PT INR POC ABG pH POC ABG pCO2 POC ABG pO2 Sodium 136 L Potassium 3.5 L Chloride Carbon Dioxide BUN 18 H Creatinine Glucose 143 H POC Glucose 139 H Calcium 8.0 L Magnesium AST Total Creatine Kinase CK-MB (CK-2) Troponin T NT-Pro-B Natriuret Pep Total Protein Albumin HDL Cholesterol 01/28/19 01/28/19 01/28/19 12:04 16:59 17:11 WBC RBC Hgb Hct MCV RDW Plt Count Lymph % (Auto) [place] % (Auto) Lymph # Seg Neutrophils % Seg Neuts % (Manual) Lymphocytes % (Manual) Seg Neutrophils # Seg Neutrophils # Man Lymphocytes # (Manual) PT INR POC ABG pH 7.488 H POC ABG pCO2 34.1 L POC ABG pO2 Sodium Potassium Chloride Carbon Dioxide BUN Creatinine Glucose POC Glucose 143 H 163 H Calcium Magnesium AST Total Creatine Kinase CK-MB (CK-2) Troponin T NT-Pro-B Natriuret Pep Total Protein Albumin HDL Cholesterol 01/29/19 01/29/19 01/29/19 00:10 05:47 12:08 WBC RBC Hgb Hct MCV RDW Plt Count Lymph % (Auto) [place] % (Auto) Lymph # Seg Neutrophils % Seg Neuts % (Manual) Lymphocytes % (Manual) Seg Neutrophils # Seg Neutrophils # Man Lymphocytes # (Manual) PT INR POC ABG pH POC ABG pCO2 POC ABG pO2 Sodium Potassium Chloride Carbon Dioxide BUN Creatinine Glucose POC Glucose 171 H 187 H 137 H Calcium Magnesium AST Total Creatine Kinase CK-MB (CK-2) Troponin T NT-Pro-B Natriuret Pep Total Protein Albumin HDL Cholesterol 01/29/19 01/29/19 01/29/19 16:48 16:54 17:47 WBC RBC Hgb Hct MCV RDW Plt Count Lymph % (Auto) [place] % (Auto) Lymph # Seg Neutrophils % Seg Neuts % (Manual) Lymphocytes % (Manual) Seg Neutrophils # Seg Neutrophils # Man Lymphocytes # (Manual) PT INR POC ABG pH 7.486 H 7.512 H POC ABG pCO2 32.8 L 32.7 L POC ABG pO2 108 H Sodium Potassium Chloride Carbon Dioxide BUN Creatinine Glucose POC Glucose 156 H Calcium Magnesium AST Total Creatine Kinase CK-MB (CK-2) Troponin T NT-Pro-B Natriuret Pep Total Protein Albumin HDL Cholesterol 01/29/19 01/30/19 01/30/19 23:48 06:45 07:18 WBC RBC 2.94 L Hgb 8.6 L Hct 25.7 L MCV RDW Plt Count Lymph % (Auto) [place] % (Auto) Lymph # Seg Neutrophils % Seg Neuts % (Manual) Lymphocytes % (Manual) Seg Neutrophils # Seg Neutrophils # Man Lymphocytes # (Manual) PT INR POC ABG pH POC ABG pCO2 POC ABG pO2 Sodium 135 L Potassium Chloride Carbon Dioxide BUN Creatinine Glucose 141 H POC Glucose 185 H Calcium 8.3 L Magnesium AST Total Creatine Kinase CK-MB (CK-2) Troponin T NT-Pro-B Natriuret Pep Total Protein Albumin HDL Cholesterol 01/30/19 01/30/19 01/30/19 11:17 16:47 18:16 WBC RBC Hgb Hct MCV RDW Plt Count Lymph % (Auto) [place] % (Auto) Lymph # Seg Neutrophils % Seg Neuts % (Manual) Lymphocytes % (Manual) Seg Neutrophils # Seg Neutrophils # Man Lymphocytes # (Manual) PT INR POC ABG pH 7.508 H POC ABG pCO2 31.5 L POC ABG pO2 135 H Sodium Potassium Chloride Carbon Dioxide BUN Creatinine Glucose POC Glucose 170 H 108 H Calcium Magnesium AST Total Creatine Kinase CK-MB (CK-2) Troponin T NT-Pro-B Natriuret Pep Total Protein Albumin HDL Cholesterol 01/30/19 01/31/19 01/31/19 23:38 05:45 12:04 WBC RBC Hgb Hct MCV RDW Plt Count Lymph % (Auto) [place] % (Auto) Lymph # Seg Neutrophils % Seg Neuts % (Manual) Lymphocytes % (Manual) Seg Neutrophils # Seg Neutrophils # Man Lymphocytes # (Manual) PT INR POC ABG pH POC ABG pCO2 POC ABG pO2 Sodium Potassium Chloride Carbon Dioxide BUN Creatinine Glucose POC Glucose 146 H 121 H 152 H Calcium Magnesium AST Total Creatine Kinase CK-MB (CK-2) Troponin T NT-Pro-B Natriuret Pep Total Protein Albumin HDL Cholesterol 01/31/19 01/31/19 02/01/19 17:44 23:58 05:46 WBC RBC Hgb Hct MCV RDW Plt Count Lymph % (Auto) [place] % (Auto) Lymph # Seg Neutrophils % Seg Neuts % (Manual) Lymphocytes % (Manual) Seg Neutrophils # Seg Neutrophils # Man Lymphocytes # (Manual) PT INR POC ABG pH POC ABG pCO2 POC ABG pO2 Sodium Potassium Chloride Carbon Dioxide BUN Creatinine Glucose POC Glucose 153 H 183 H 116 H Calcium Magnesium AST Total Creatine Kinase CK-MB (CK-2) Troponin T NT-Pro-B Natriuret Pep Total Protein Albumin HDL Cholesterol 02/01/19 02/01/19 02/01/19 11:10 12:18 17:48 WBC RBC Hgb Hct MCV RDW Plt Count Lymph % (Auto) [place] % (Auto) Lymph # Seg Neutrophils % Seg Neuts % (Manual) Lymphocytes % (Manual) Seg Neutrophils # Seg Neutrophils # Man Lymphocytes # (Manual) PT INR POC ABG pH POC ABG pCO2 POC ABG pO2 Sodium 133 L Potassium 3.3 L Chloride 96.1 L Carbon Dioxide BUN Creatinine Glucose 145 H POC Glucose 175 H 129 H Calcium 8.3 L Magnesium AST Total Creatine Kinase CK-MB (CK-2) Troponin T NT-Pro-B Natriuret Pep Total Protein Albumin HDL Cholesterol 02/01/19 02/02/19 02/02/19 23:13 05:16 06:00 WBC RBC Hgb Hct MCV RDW Plt Count Lymph % (Auto) [place] % (Auto) Lymph # Seg Neutrophils % Seg Neuts % (Manual) Lymphocytes % (Manual) Seg Neutrophils # Seg Neutrophils # Man Lymphocytes # (Manual) PT INR POC ABG pH POC ABG pCO2 POC ABG pO2 Sodium 135 L Potassium Chloride Carbon Dioxide BUN 18 H Creatinine Glucose 121 H POC Glucose 143 H 140 H Calcium 8.3 L Magnesium 1.60 L AST Total Creatine Kinase CK-MB (CK-2) Troponin T NT-Pro-B Natriuret Pep Total Protein Albumin HDL Cholesterol 02/02/19 02/02/19 02/02/19 12:06 18:23 23:45 WBC RBC Hgb Hct MCV RDW Plt Count Lymph % (Auto) [place] % (Auto) Lymph # Seg Neutrophils % Seg Neuts % (Manual) Lymphocytes % (Manual) Seg Neutrophils # Seg Neutrophils # Man Lymphocytes # (Manual) PT INR POC ABG pH POC ABG pCO2 POC ABG pO2 Sodium Potassium Chloride Carbon Dioxide BUN Creatinine Glucose POC Glucose 156 H 159 H 139 H Calcium Magnesium AST Total Creatine Kinase CK-MB (CK-2) Troponin T NT-Pro-B Natriuret Pep Total Protein Albumin HDL Cholesterol 02/03/19 02/03/19 02/03/19 05:19 12:02 17:24 WBC RBC Hgb Hct MCV RDW Plt Count Lymph % (Auto) [place] % (Auto) Lymph # Seg Neutrophils % Seg Neuts % (Manual) Lymphocytes % (Manual) Seg Neutrophils # Seg Neutrophils # Man Lymphocytes # (Manual) PT INR POC ABG pH POC ABG pCO2 POC ABG pO2 Sodium Potassium Chloride Carbon Dioxide BUN Creatinine Glucose POC Glucose 147 H 163 H 144 H Calcium Magnesium AST Total Creatine Kinase CK-MB (CK-2) Troponin T NT-Pro-B Natriuret Pep Total Protein Albumin HDL Cholesterol 02/03/19 02/04/19 02/04/19 23:43 05:30 11:14 WBC RBC 3.00 L Hgb 8.7 L Hct 25.9 L MCV RDW Plt Count Lymph % (Auto) 11.5 L [place] % (Auto) 7.5 H Lymph # 0.8 L Seg Neutrophils % 79.6 H Seg Neuts % (Manual) Lymphocytes % (Manual) Seg Neutrophils # Seg Neutrophils # Man Lymphocytes # (Manual) PT INR POC ABG pH POC ABG pCO2 POC ABG pO2 Sodium Potassium Chloride Carbon Dioxide BUN Creatinine Glucose POC Glucose 131 H 145 H Calcium Magnesium AST Total Creatine Kinase CK-MB (CK-2) Troponin T NT-Pro-B Natriuret Pep Total Protein Albumin HDL Cholesterol 02/04/19 02/04/19 02/04/19 11:14 12:09 17:37 WBC RBC Hgb Hct MCV RDW Plt Count Lymph % (Auto) [place] % (Auto) Lymph # Seg Neutrophils % Seg Neuts % (Manual) Lymphocytes % (Manual) Seg Neutrophils # Seg Neutrophils # Man Lymphocytes # (Manual) PT INR POC ABG pH POC ABG pCO2 POC ABG pO2 Sodium Potassium Chloride 96.5 L Carbon Dioxide BUN 30 H Creatinine Glucose 142 H POC Glucose 149 H 170 H Calcium Magnesium AST Total Creatine Kinase CK-MB (CK-2) Troponin T NT-Pro-B Natriuret Pep Total Protein Albumin HDL Cholesterol 02/04/19 02/05/19 02/05/19 23:33 04:27 04:27 WBC RBC 3.61 L Hgb Hct MCV RDW Plt Count Lymph % (Auto) 12.3 L [place] % (Auto) Lymph # 0.9 L Seg Neutrophils % 79.1 H Seg Neuts % (Manual) Lymphocytes % (Manual) Seg Neutrophils # Seg Neutrophils # Man Lymphocytes # (Manual) PT INR POC ABG pH POC ABG pCO2 POC ABG pO2 Sodium Potassium Chloride 96.0 L Carbon Dioxide BUN 26 H Creatinine Glucose 118 H POC Glucose 182 H Calcium Magnesium AST Total Creatine Kinase CK-MB (CK-2) Troponin T NT-Pro-B Natriuret Pep Total Protein Albumin HDL Cholesterol 02/05/19 02/05/19 02/05/19 05:51 12:37 23:56 WBC RBC Hgb Hct MCV RDW Plt Count Lymph % (Auto) [place] % (Auto) Lymph # Seg Neutrophils % Seg Neuts % (Manual) Lymphocytes % (Manual) Seg Neutrophils # Seg Neutrophils # Man Lymphocytes # (Manual) PT INR POC ABG pH POC ABG pCO2 POC ABG pO2 Sodium Potassium Chloride Carbon Dioxide BUN Creatinine Glucose POC Glucose 162 H 147 H 167 H Calcium Magnesium AST Total Creatine Kinase CK-MB (CK-2) Troponin T NT-Pro-B Natriuret Pep Total Protein Albumin HDL Cholesterol 02/06/19 02/06/19 02/06/19 05:33 12:02 16:42 WBC RBC Hgb Hct MCV RDW Plt Count Lymph % (Auto) [place] % (Auto) Lymph # Seg Neutrophils % Seg Neuts % (Manual) Lymphocytes % (Manual) Seg Neutrophils # Seg Neutrophils # Man Lymphocytes # (Manual) PT INR POC ABG pH POC ABG pCO2 POC ABG pO2 Sodium Potassium Chloride Carbon Dioxide BUN Creatinine Glucose POC Glucose 124 H 156 H 125 H Calcium Magnesium AST Total Creatine Kinase CK-MB (CK-2) Troponin T NT-Pro-B Natriuret Pep Total Protein Albumin HDL Cholesterol 02/07/19 02/07/19 02/07/19 00:21 05:46 11:28 WBC RBC Hgb Hct MCV RDW Plt Count Lymph % (Auto) [place] % (Auto) Lymph # Seg Neutrophils % Seg Neuts % (Manual) Lymphocytes % (Manual) Seg Neutrophils # Seg Neutrophils # Man Lymphocytes # (Manual) PT INR POC ABG pH POC ABG pCO2 POC ABG pO2 Sodium Potassium Chloride Carbon Dioxide BUN Creatinine Glucose POC Glucose 206 H 153 H 200 H Calcium Magnesium AST Total Creatine Kinase CK-MB (CK-2) Troponin T NT-Pro-B Natriuret Pep Total Protein Albumin HDL Cholesterol 02/07/19 02/08/19 02/08/19 18:48 00:08 05:29 WBC RBC Hgb Hct MCV RDW Plt Count Lymph % (Auto) [place] % (Auto) Lymph # Seg Neutrophils % Seg Neuts % (Manual) Lymphocytes % (Manual) Seg Neutrophils # Seg Neutrophils # Man Lymphocytes # (Manual) PT INR POC ABG pH POC ABG pCO2 POC ABG pO2 Sodium Potassium Chloride Carbon Dioxide BUN Creatinine Glucose POC Glucose 185 H 174 H 148 H Calcium Magnesium AST Total Creatine Kinase CK-MB (CK-2) Troponin T NT-Pro-B Natriuret Pep Total Protein Albumin HDL Cholesterol 02/08/19 02/08/19 02/08/19 07:00 07:00 11:45 WBC RBC 3.12 L Hgb 8.9 L Hct 26.7 L MCV RDW Plt Count Lymph % (Auto) 9.5 L [place] % (Auto) Lymph # 0.9 L Seg Neutrophils % 84.5 H Seg Neuts % (Manual) Lymphocytes % (Manual) Seg Neutrophils # 8.1 H Seg Neutrophils # Man Lymphocytes # (Manual) PT INR POC ABG pH POC ABG pCO2 POC ABG pO2 Sodium 135 L Potassium Chloride 91.1 L Carbon Dioxide 33 H BUN 44 H Creatinine Glucose 166 H POC Glucose 166 H Calcium Magnesium AST Total Creatine Kinase CK-MB (CK-2) Troponin T NT-Pro-B Natriuret Pep Total Protein Albumin HDL Cholesterol 02/09/19 02/09/19 02/09/19 01:31 05:44 10:48 WBC RBC Hgb Hct MCV RDW Plt Count Lymph % (Auto) [place] % (Auto) Lymph # Seg Neutrophils % Seg Neuts % (Manual) Lymphocytes % (Manual) Seg Neutrophils # Seg Neutrophils # Man Lymphocytes # (Manual) PT INR POC ABG pH POC ABG pCO2 POC ABG pO2 Sodium Potassium Chloride Carbon Dioxide BUN Creatinine Glucose POC Glucose 215 H 146 H 151 H Calcium Magnesium AST Total Creatine Kinase CK-MB (CK-2) Troponin T NT-Pro-B Natriuret Pep Total Protein Albumin HDL Cholesterol 02/09/19 02/09/19 02/10/19 15:35 21:21 01:00 WBC RBC Hgb Hct MCV RDW Plt Count Lymph % (Auto) [place] % (Auto) Lymph # Seg Neutrophils % Seg Neuts % (Manual) Lymphocytes % (Manual) Seg Neutrophils # Seg Neutrophils # Man Lymphocytes # (Manual) PT INR POC ABG pH POC ABG pCO2 POC ABG pO2 Sodium Potassium Chloride Carbon Dioxide BUN Creatinine Glucose POC Glucose 139 H 153 H 183 H Calcium Magnesium AST Total Creatine Kinase CK-MB (CK-2) Troponin T NT-Pro-B Natriuret Pep Total Protein Albumin HDL Cholesterol 02/10/19 02/10/19 02/10/19 05:27 06:54 11:46 WBC RBC Hgb Hct MCV RDW Plt Count Lymph % (Auto) [place] % (Auto) Lymph # Seg Neutrophils % Seg Neuts % (Manual) Lymphocytes % (Manual) Seg Neutrophils # Seg Neutrophils # Man Lymphocytes # (Manual) PT INR POC ABG pH POC ABG pCO2 POC ABG pO2 Sodium Potassium Chloride Carbon Dioxide BUN Creatinine Glucose POC Glucose 155 H 135 H 165 H Calcium Magnesium AST Total Creatine Kinase CK-MB (CK-2) Troponin T NT-Pro-B Natriuret Pep Total Protein Albumin HDL Cholesterol 02/10/19 02/10/19 17:59 22:07 WBC RBC Hgb Hct MCV RDW Plt Count Lymph % (Auto) [place] % (Auto) Lymph # Seg Neutrophils % Seg Neuts % (Manual) Lymphocytes % (Manual) Seg Neutrophils # Seg Neutrophils # Man Lymphocytes # (Manual) PT INR POC ABG pH POC ABG pCO2 POC ABG pO2 Sodium Potassium Chloride Carbon Dioxide BUN Creatinine Glucose POC Glucose 110 H 154 H Calcium Magnesium AST Total Creatine Kinase CK-MB (CK-2) Troponin T NT-Pro-B Natriuret Pep Total Protein Albumin HDL Cholesterol Allied health notes reviewed: nursing
--- NOTE | 2019-02-11 08:32 | Progress Note ---
Assessment and Plan Assessment and plan: Patient is 73 yo woman with a history of hypertension, CAD s/p stent and COPD/emphesema, not on home Oxygen who presented to [facility] ED on 01/15/2019 after cardiac arrest. How long she was unresponsive/without oxygen is unknown. She was in PEA, given 2 rounds of IV Epinephrine, CPR, intubated , resuscitated, and brought to ED. She had seizures later same day, was started on keppra. She had CARMELINA on presentation, resolved in few days. She remained comatose, acute respiratory failure vent dependent. Trach and PEG was recommended. Tracheostomy done 01/25/19. PEG not done yet because of abdominal distension and poor light translumination. She has poor prognosis and may need LTAC Oropharyngeal dysphagia. PEG tube pending Anoxic encephalopathy, severe irreversible brain damage: EEG 01/17/19 reported as abnormal with minimal brain activity. No epileptiform discharges. Neurology following, supportive care Cardiopulmonary arrest. Patient with out of hospital PEA arrest and ROSC. Cardiology following. Acute hypoxemic hypercapnic respiratory failure. Patient previously on mechanical ventilation but has been weaned. Continue TP trials. Continue trach care. Aspiration pneumonia. Completed treatment Aspiration precautions. Sepsis, poa. Complete Pneumonia treatment ID following. Acute renal failure, tubular necrosis and vasomotor nephropathy, poa. resolved, Etiology likely secondary to acute kidney injury from sepsis. Creatinine is stable. Continue to monitor. Pulmonary hypertension. Building Tech following Acute systolic heart failure. Patient with moderate global hypokinesis of left ventricle EF 35-40% and left ventricular systolic function moderately decreased. 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 Follow-up on current diagnosis of Cardiac arrest. No overnight events reported to me. Patient nonverbal. Imaging, nursing note, chart, labs and old chart reviewed. Hospitalist Physical - Physical exam Narrative exam: Gen: ill appearing, cachetic, unresponsive, comatose HEENT: NCAT, trach in place Neck: supple, no adenopathy, no thyromegaly, no JVD CVS/Heart: RRR, normal S1S2, pulses present bilaterally Chest/Lungs: diminished bs bilateral, Symmetrical chest expansion, good air entry bilaterally GI/Abdomen: soft, NTND, good bowel sounds, no guarding or rebound Extermity/Skin: no obvious rash MSK: unresponsive Neuro: unresponsive Psych: unresponsive - Constitutional Vitals: Temp Pulse Resp BP Pulse Ox 98.9 F 98 H 20 137/77 97 02/11/19 04:22 02/11/19 07:54 02/11/19 07:54 02/11/19 04:22 02/11/19 07:41 General appearance: Present: other (trached, nonresponsive at time of examination) Results - Labs CBC & Chem 7: 02/08/19 07:00 02/08/19 07:00 Labs: Laboratory Last Values WBC 9.6 K/mm3 (4.5-11.0) 02/08/19 07:00 RBC 3.12 M/mm3 (3.65-5.03) L 02/08/19 07:00 Hgb 8.9 gm/dl (10.1-14.3) L 02/08/19 07:00 Hct 26.7 % (30.3-42.9) L 02/08/19 07:00 MCV 86 fl (79-97) 02/08/19 07:00 MCH 29 pg (28-32) 02/08/19 07:00 MCHC 34 % (30-34) 02/08/19 07:00 RDW 14.7 % (13.2-15.2) 02/08/19 07:00 Plt Count 182 K/mm3 (140-440) 02/08/19 07:00 Lymph % (Auto) 9.5 % (13.4-35.0) L 02/08/19 07:00 [place] % (Auto) 5.3 % (0.0-7.3) 02/08/19 07:00 Eos % (Auto) 0.5 % (0.0-4.3) 02/08/19 07:00 Baso % (Auto) 0.2 % (0.0-1.8) 02/08/19 07:00 Lymph # 0.9 K/mm3 (1.2-5.4) L 02/08/19 07:00 [place] # 0.5 K/mm3 (0.0-0.8) 02/08/19 07:00 Eos # 0.0 K/mm3 (0.0-0.4) 02/08/19 07:00 Baso # 0.0 K/mm3 (0.0-0.1) 02/08/19 07:00 Add Manual Diff Complete 01/16/19 04:16 Total Counted 100 01/16/19 04:16 Seg Neutrophils % 84.5 % (40.0-70.0) H 02/08/19 07:00 Seg Neuts % (Manual) 74.0 % (40.0-70.0) H 01/16/19 04:16 22.0 % 01/16/19 04:16 2.0 % (13.4-35.0) L 01/16/19 04:16 Reactive Lymphs % (Man) 0 % 01/16/19 04:16 2.0 % (0.0-7.3) 01/16/19 04:16 0 % (0.0-4.3) 01/16/19 04:16 0 % (0.0-1.8) 01/16/19 04:16 0 % 01/16/19 04:16 0 % 01/16/19 04:16 0 % 01/16/19 04:16 0 % 01/16/19 04:16 Nucleated RBC % Not Reportable 01/16/19 04:16 Seg Neutrophils # 8.1 K/mm3 (1.8-7.7) H 02/08/19 07:00 Seg Neutrophils # Man 8.4 K/mm3 (1.8-7.7) H 01/16/19 04:16 Band Neutrophils # 2.5 K/mm3 01/16/19 04:16 0.2 K/mm3 (1.2-5.4) L 01/16/19 04:16 Abs React Lymphs (Man) 0.0 K/mm3 01/16/19 04:16 0.2 K/mm3 (0.0-0.8) 01/16/19 04:16 0.0 K/mm3 (0.0-0.4) 01/16/19 04:16 0.0 K/mm3 (0.0-0.1) 01/16/19 04:16 0.0 K/mm3 01/16/19 04:16 0.0 K/mm3 01/16/19 04:16 0.0 K/mm3 01/16/19 04:16 Blast Cells # 0.0 K/mm3 01/16/19 04:16 WBC Morphology Not Reportable 01/16/19 04:16 Hypersegmented Neuts Not Reportable 01/16/19 04:16 Hyposegmented Neuts Not Reportable 01/16/19 04:16 Hypogranular Neuts Not Reportable 01/16/19 04:16 Not Reportable 01/16/19 04:16 Not Reportable 01/16/19 04:16 Not Reportable 01/16/19 04:16 Not Reportable 01/16/19 04:16 Not Reportable 01/16/19 04:16 Not Reportable 01/16/19 04:16 Consistent w auto 01/16/19 04:16 Not Reportable 01/16/19 04:16 Plt Clumps, EDTA Not Reportable 01/16/19 04:16 Not Reportable 01/16/19 04:16 Not Reportable 01/16/19 04:16 Not Reportable 01/16/19 04:16 Plt Morphology Comment Not Reportable 01/16/19 04:16 RBC Morphology Normal 01/16/19 04:16 Dimorphic RBCs Not Reportable 01/16/19 04:16 Not Reportable 01/16/19 04:16 Not Reportable 01/16/19 04:16 Not Reportable 01/16/19 04:16 Not Reportable 01/16/19 04:16 Not Reportable 01/16/19 04:16 Not Reportable 01/16/19 04:16 Not Reportable 01/16/19 04:16 Not Reportable 01/16/19 04:16 Not Reportable 01/16/19 04:16 Not Reportable 01/16/19 04:16 Not Reportable 01/16/19 04:16 Not Reportable 01/16/19 04:16 Not Reportable 01/16/19 04:16 Not Reportable 01/16/19 04:16 Not Reportable 01/16/19 04:16 Not Reportable 01/16/19 04:16 Not Reportable 01/16/19 04:16 Not Reportable 01/16/19 04:16 Not Reportable 01/16/19 04:16 Acanthocytes (Spur) Not Reportable 01/16/19 04:16 Rouleaux Not Reportable 01/16/19 04:16 Not Reportable 01/16/19 04:16 Not Reportable 01/16/19 04:16 Not Reportable 01/16/19 04:16 Not Reportable 01/16/19 04:16 Hem Pathologist Commnt No 01/16/19 04:16 PT 18.8 Sec. (12.2-14.9) H 01/25/19 05:15 INR 1.47 (0.87-1.13) H 01/25/19 05:15 APTT 36.0 Sec. (24.2-36.6) 01/15/19 07:50 Heparin Anti-Xa, Unfract Negative (Negative) 01/19/19 Unknown POC ABG pH 7.508 (7.35-7.45) H 01/30/19 16:47 POC ABG pCO2 31.5 (35-45) L 01/30/19 16:47 POC ABG pO2 135 (80-105) H 01/30/19 16:47 POC ABG HCO3 25.0 (22-26 mml/L) 01/30/19 16:47 POC ABG Total CO2 26 (23-27mmol/L) 01/30/19 16:47 POC ABG O2 Sat 99 01/30/19 16:47 POC ABG Base Excess 2 ((-2) - (+3)mmol/L) 01/30/19 16:47 28 % 01/30/19 16:47 Sodium 135 mmol/L (137-145) L 02/08/19 07:00 Potassium 4.3 mmol/L (3.6-5.0) 02/08/19 07:00 Chloride 91.1 mmol/L (98-107) L 02/08/19 07:00 Carbon Dioxide 33 mmol/L (22-30) H 02/08/19 07:00 15 mmol/L 02/08/19 07:00 BUN 44 mg/dL (7-17) H 02/08/19 07:00 0.9 mg/dL (0.7-1.2) 02/08/19 07:00 Estimated GFR > 60 ml/min 02/08/19 07:00 49 % 02/08/19 07:00 Glucose 166 mg/dL (65-100) H 02/08/19 07:00 POC Glucose 175 (70-105) H 02/11/19 07:07 6.0 % (4-6) 01/15/19 11:53 Calcium 9.1 mg/dL (8.4-10.2) 02/08/19 07:00 Phosphorus 3.10 mg/dL (2.5-4.5) 02/02/19 06:00 Magnesium 1.60 mg/dL (1.7-2.3) L 02/02/19 06:00 0.30 mg/dL (0.1-1.2) 01/23/19 Unknown AST 88 units/L (5-40) H 01/23/19 Unknown ALT 31 units/L (7-56) 01/23/19 Unknown 48 units/L (35-129) 01/23/19 Unknown 1430 units/L (30-135) H 01/15/19 17:52 CK-MB (CK-2) 13.5 ng/mL (0.0-4.0) H 01/15/19 17:52 CK-MB (CK-2) Rel Index 0.9 (0-4) 01/15/19 17:52 0.036 ng/mL (0.00-0.029) H D 01/15/19 17:52 NT-Pro-B Natriuret Pep 5346 pg/mL (0-900) H 01/15/19 07:50 6.0 g/dL (6.3-8.2) L 01/23/19 Unknown 2.9 g/dL (3.9-5) L 01/23/19 Unknown 0.9 % 01/23/19 Unknown Triglycerides 75 mg/dL (2-149) 01/15/19 17:52 Cholesterol 149 mg/dL (50-199) 01/15/19 17:52 84 mg/dL (50-130) 01/15/19 17:52 65 mg/dL (40-59) H 01/15/19 17:52 2.29 % 01/15/19 17:52 See scanned report 01/19/19 Unknown Yellow (Yellow) 01/21/19 16:10 Clear (Clear) 01/21/19 16:10 6.0 (5.0-7.0) 01/21/19 16:10 Ur Specific [place] 1.015 (1.003-1.030) 01/21/19 16:10 <15 mg/dl mg/dL (Negative) 01/21/19 16:10 Neg mg/dL (Negative) 01/21/19 16:10 Neg mg/dL (Negative) 01/21/19 16:10 Neg (Negative) 01/21/19 16:10 Neg (Negative) 01/21/19 16:10 Neg (Negative) 01/21/19 16:10 2.0 mg/dL (<2.0) 01/21/19 16:10 Ur Leukocyte Esterase Neg (Negative) 01/21/19 16:10 1.0 /HPF (0.0-6.0) 01/21/19 16:10 5.0 /HPF (0.0-6.0) 01/21/19 16:10 Presumptive negative 01/15/19 16:30 Presumptive negative 01/15/19 16:30 Ur Barbiturates Screen Presumptive negative 01/15/19 16:30 Ur Phencyclidine Scrn Presumptive negative 01/15/19 16:30 Ur Amphetamines Screen Presumptive negative 01/15/19 16:30 U Benzodiazepines Scrn Presumptive negative 01/15/19 16:30 Presumptive negative 01/15/19 16:30 U Marijuana (THC) Screen Presumptive negative 01/15/19 16:30 Disclamer 01/15/19 16:30 Heparin-induced Plt Ab Negative (Negative) 01/19/19 Unknown UF Heparin High Dose 3 % Release 01/19/19 Unknown JOSEFA UFH Low Dose 0.1 4 % Release 01/19/19 Unknown JOSEFA UFH Low Dose 0.5 5 % Release 01/19/19 Unknown C. difficile Tox (PCR) Negative (Negative) 01/16/19 00:00 Active Medications - Current Medications Current Medications: Generic Name Dose Route Start Last Admin Trade Name Freq PRN Reason Stop Dose Admin Acetaminophen 650 mg 01/16/19 09:37 01/20/19 00:24 Tylenol PO 650 mg Q4H PRN Administration Fever >101 Albuterol/Ipratropium 1 ampul 01/15/19 14:00 02/11/19 07:34 Duoneb *Not For Prn Use* IH 1 ampul Q6HRT DEON Administration Amlodipine Besylate 10 mg 01/24/19 12:00 02/10/19 11:02 Norvasc PO 10 mg DAILY DEON Administration Lipase/Protease/Amylase 1 each 02/02/19 14:21 Pancreaze 10,500 Unit FEEDTUBE PRN PRN For Clogged Feeding Tube Aspirin 81 mg 01/16/19 10:00 02/10/19 11:02 Baby Aspirin PO 81 mg QDAY DEON Administration Atorvastatin Calcium 20 mg 01/16/19 22:00 02/10/19 21:09 Lipitor PO 20 mg QHS DEON Administration Carvedilol 12.5 mg 01/24/19 22:00 02/10/19 21:10 Coreg PO 12.5 mg BID DEON Administration Enoxaparin Sodium 40 mg 01/30/19 10:00 02/10/19 11:01 Lovenox SUB-Q 40 mg QDAY@1000 DEON Administration Furosemide 20 mg 01/19/19 18:00 02/11/19 05:16 Lasix PO 20 mg 0600,1800 DEON Administration Insulin Human Lispro 0 unit 01/22/19 14:00 02/11/19 07:08 Humalog SUB-Q 2 unit Q6HR DEON Administration Protocol Lansoprazole 30 mg 01/30/19 10:00 02/10/19 21:08 Prevacid Solutab FEEDTUBE 30 mg BID DEON Administration Levetiracetam 750 mg 01/18/19 10:00 02/10/19 21:08 Keppra PO 750 mg BID DEON Administration Metoclopramide HCl 10 mg 02/01/19 14:00 02/11/19 05:16 Reglan IV 10 mg Q8HR DEON Administration Scopolamine 1 each 02/09/19 16:00 02/09/19 21:57 Transderm-Scop TD 1 each Q3D DEON Administration Simple Syrup 15 ml 02/02/19 14:21 Simple Syrup FEEDTUBE PRN PRN Hypoglycemia Simple Syrup 30 ml 02/02/19 14:21 Simple Syrup FEEDTUBE PRN PRN Hypoglycemia Sodium Bicarbonate 325 mg 02/02/19 14:21 Sodium Bicarbonate FEEDTUBE PRN PRN For Clogged Feeding Tube Sodium Chloride 10 ml 01/15/19 22:00 02/10/19 21:09 Sodium Chloride Flush Syringe 10 Ml IV 10 ml BID DEON Administration Sodium Chloride 10 ml 01/15/19 10:34 02/08/19 06:35 Sodium Chloride Flush Syringe 10 Ml IV 10 ml PRN PRN Administration LINE FLUSH Triamcinolone Acetonide 1 applic 01/24/19 14:00 02/10/19 23:34 Kenalog TP 1 applic BID DEON Administration Nutrition/Malnutrition Assess - Dietary Evaluation Nutrition/Malnutrition Findings: Nutrition Notes Start: 01/15/19 14:28 Freq: Status: Active Protocol: Document 02/05/19 14:19 RM (Rec: 02/05/19 14:26 RM [id number]) Nutrition Notes Initial or Follow up Reassessment Current Diagnosis Acute Kidney Injury,Heart Failure,Respiratory Failure Other Pertinent Diagnosis dysphagia, s/p cardiorespiratory arrest (at home), Aspiration Pneu Current Diet Glucerna 1.2 at 50 ml/hr Labs/Tests Na 138 Pertinent Medications Lasix Height 5 ft 4 in Weight 47.7 kg [place] Body Weight (kg) 54.54 BMI 18.0 Subjective/Other Information Observed Glucerna 1.2 infusing at 50 ml/hr. Pt is tolerating TF per nurse. Percent of energy/protein needs met: 86%/100% Burn Absent Trauma Absent #1 Nutrition Diagnosis Inadequate oral intake Diagnosis Progress(for reassessment Continues documentation) Is patient on ventilator? No Is Patient Ambulatory and/or Out of Bed No REE-([facility]-confined to bed) 1155.024 Kcal/Kg value to use for calculation 35 Approximate Energy Requirements Using 1670 kcal/Kg Calculation Used for Recommendations Kcal/kg Additional Notes Pro needs 1-1.2g/k-57g/day Fluid needs 1ml/kcal Nutrition Intervention Nutrition Support: Glucerna 1.2 at 50ml/hr with 80ml water flush q4h. Kcal 1,440 Protein (gm) 72 Carbohydrates (gm) 137 Fluid (mL) 966 Fiber (gm) 19 Goal #1 Continue to meet at least 75% of calorie and protein needs via TF Goal #2 Wt maintenance and/or gain Follow-Up By: 02/13/19 Additional Comments Follow for TF tolerance
--- NOTE | 2019-02-11 09:57 | Progress Note ---
Subjective Date of service: 02/11/19 Principal diagnosis: OOH cardiac arrest; Acute hypoxemic-hypercapnic Resp failure; PNA Interval history: chart review checked labs and went over other notes... still totally unresponsive and having no seizures... persistant coma state Objective - Vital Sign Vital Signs - 12hr 02/10/19 02/11/19 02/11/19 22:00 01:48 01:54 Temperature Pulse Rate Pulse Rate [ 94 H Anterior Bilateral Throughout] Pulse Rate [ 90 From Monitor] Respiratory 20 Rate Respiratory 18 Rate [Anterior Bilateral Throughout] Blood Pressure O2 Sat by Pulse Oximetry O2 Sat by Pulse 99 Oximetry [ Assessment] 02/11/19 02/11/19 02/11/19 04:22 07:41 07:54 Temperature 98.9 F Pulse Rate 99 H Pulse Rate [ 109 H 98 H Anterior Bilateral Throughout] Pulse Rate [ From Monitor] Respiratory 40 H Rate Respiratory 18 20 Rate [Anterior Bilateral Throughout] Blood Pressure 137/77 O2 Sat by Pulse 96 97 Oximetry O2 Sat by Pulse 97 Oximetry [ Assessment] 02/11/19 09:02 Temperature 100.2 F H Pulse Rate 102 H Pulse Rate [ Anterior Bilateral Throughout] Pulse Rate [ From Monitor] Respiratory Rate Respiratory Rate [Anterior Bilateral Throughout] Blood Pressure 119/71 O2 Sat by Pulse 100 Oximetry O2 Sat by Pulse Oximetry [ Assessment] - Laboratory Findings CBC and BMP: 02/08/19 07:00 02/08/19 07:00 Abnormal Lab Findings: Abnormal Labs 01/15/19 01/15/19 01/15/19 07:50 07:50 07:50 WBC RBC Hgb Hct MCV 99 H RDW 16.7 H Plt Count 122 L Lymph % (Auto) [place] % (Auto) Lymph # Seg Neutrophils % Seg Neuts % (Manual) Lymphocytes % (Manual) Seg Neutrophils # Seg Neutrophils # Man Lymphocytes # (Manual) PT 19.7 H INR 1.56 H POC ABG pH POC ABG pCO2 POC ABG pO2 Sodium Potassium Chloride Carbon Dioxide 11 L BUN Creatinine 1.4 H Glucose 268 H POC Glucose Calcium Magnesium AST 57 H Total Creatine Kinase CK-MB (CK-2) Troponin T NT-Pro-B Natriuret Pep 5346 H Total Protein Albumin 3.6 L HDL Cholesterol 01/15/19 01/15/19 01/15/19 09:56 11:53 17:52 WBC RBC Hgb Hct MCV RDW Plt Count Lymph % (Auto) [place] % (Auto) Lymph # Seg Neutrophils % Seg Neuts % (Manual) Lymphocytes % (Manual) Seg Neutrophils # Seg Neutrophils # Man Lymphocytes # (Manual) PT INR POC ABG pH 7.186 L POC ABG pCO2 46.4 H POC ABG pO2 Sodium Potassium Chloride Carbon Dioxide BUN Creatinine Glucose POC Glucose Calcium Magnesium AST Total Creatine Kinase 683 H 1430 H CK-MB (CK-2) 9.5 H 13.5 H Troponin T 0.036 H D NT-Pro-B Natriuret Pep Total Protein Albumin HDL Cholesterol 65 H 01/15/19 01/15/19 01/16/19 18:31 21:46 02:14 WBC RBC Hgb Hct MCV RDW Plt Count Lymph % (Auto) [place] % (Auto) Lymph # Seg Neutrophils % Seg Neuts % (Manual) Lymphocytes % (Manual) Seg Neutrophils # Seg Neutrophils # Man Lymphocytes # (Manual) PT INR POC ABG pH POC ABG pCO2 31.8 L POC ABG pO2 167 H Sodium Potassium Chloride Carbon Dioxide BUN Creatinine Glucose POC Glucose 134 H 136 H Calcium Magnesium AST Total Creatine Kinase CK-MB (CK-2) Troponin T NT-Pro-B Natriuret Pep Total Protein Albumin HDL Cholesterol 01/16/19 01/16/19 01/16/19 04:16 04:16 05:05 WBC 11.4 H RBC Hgb Hct MCV RDW Plt Count 105 L Lymph % (Auto) [place] % (Auto) Lymph # Seg Neutrophils % Seg Neuts % (Manual) 74.0 H Lymphocytes % (Manual) 2.0 L Seg Neutrophils # Seg Neutrophils # Man 8.4 H Lymphocytes # (Manual) 0.2 L PT INR POC ABG pH 7.458 H POC ABG pCO2 31.4 L POC ABG pO2 135 H Sodium Potassium 3.3 L Chloride Carbon Dioxide 21 L D BUN 24 H Creatinine 1.5 H Glucose 141 H POC Glucose Calcium 8.1 L Magnesium AST 71 H Total Creatine Kinase CK-MB (CK-2) Troponin T NT-Pro-B Natriuret Pep Total Protein 6.2 L Albumin 3.5 L HDL Cholesterol 01/16/19 01/16/19 01/16/19 05:24 13:42 21:08 WBC RBC Hgb Hct MCV RDW Plt Count Lymph % (Auto) [place] % (Auto) Lymph # Seg Neutrophils % Seg Neuts % (Manual) Lymphocytes % (Manual) Seg Neutrophils # Seg Neutrophils # Man Lymphocytes # (Manual) PT INR POC ABG pH POC ABG pCO2 POC ABG pO2 Sodium Potassium Chloride Carbon Dioxide BUN Creatinine Glucose POC Glucose 137 H 129 H 122 H Calcium Magnesium AST Total Creatine Kinase CK-MB (CK-2) Troponin T NT-Pro-B Natriuret Pep Total Protein Albumin HDL Cholesterol 01/17/19 01/17/19 01/17/19 02:18 04:23 05:13 WBC RBC Hgb Hct MCV RDW Plt Count Lymph % (Auto) [place] % (Auto) Lymph # Seg Neutrophils % Seg Neuts % (Manual) Lymphocytes % (Manual) Seg Neutrophils # Seg Neutrophils # Man Lymphocytes # (Manual) PT INR POC ABG pH 7.479 H POC ABG pCO2 30.0 L POC ABG pO2 141 H Sodium Potassium Chloride Carbon Dioxide BUN Creatinine Glucose POC Glucose 139 H 128 H Calcium Magnesium AST Total Creatine Kinase CK-MB (CK-2) Troponin T NT-Pro-B Natriuret Pep Total Protein Albumin HDL Cholesterol 01/17/19 01/17/19 01/17/19 10:22 15:59 18:45 WBC RBC Hgb Hct MCV RDW Plt Count Lymph % (Auto) [place] % (Auto) Lymph # Seg Neutrophils % Seg Neuts % (Manual) Lymphocytes % (Manual) Seg Neutrophils # Seg Neutrophils # Man Lymphocytes # (Manual) PT INR POC ABG pH POC ABG pCO2 POC ABG pO2 Sodium Potassium Chloride Carbon Dioxide BUN Creatinine Glucose POC Glucose 133 H 121 H 106 H Calcium Magnesium AST Total Creatine Kinase CK-MB (CK-2) Troponin T NT-Pro-B Natriuret Pep Total Protein Albumin HDL Cholesterol 01/17/19 01/18/19 01/18/19 23:35 04:21 04:21 WBC RBC 3.27 L Hgb 9.6 L Hct 29.9 L MCV RDW Plt Count 79 L Lymph % (Auto) 6.0 L [place] % (Auto) Lymph # 0.5 L Seg Neutrophils % 89.2 H Seg Neuts % (Manual) Lymphocytes % (Manual) Seg Neutrophils # 8.1 H Seg Neutrophils # Man Lymphocytes # (Manual) PT INR POC ABG pH POC ABG pCO2 POC ABG pO2 Sodium Potassium Chloride Carbon Dioxide BUN 28 H Creatinine 1.3 H Glucose 129 H POC Glucose 121 H Calcium Magnesium AST 120 H Total Creatine Kinase CK-MB (CK-2) Troponin T NT-Pro-B Natriuret Pep Total Protein 5.1 L Albumin 3.0 L HDL Cholesterol 01/18/19 01/18/19 01/18/19 04:21 04:36 05:43 WBC RBC Hgb Hct MCV RDW Plt Count Lymph % (Auto) [place] % (Auto) Lymph # Seg Neutrophils % Seg Neuts % (Manual) Lymphocytes % (Manual) Seg Neutrophils # Seg Neutrophils # Man Lymphocytes # (Manual) PT INR POC ABG pH 7.485 H POC ABG pCO2 31.0 L POC ABG pO2 126 H Sodium Potassium Chloride Carbon Dioxide BUN 28 H Creatinine 1.3 H Glucose 128 H POC Glucose 142 H Calcium Magnesium AST Total Creatine Kinase CK-MB (CK-2) Troponin T NT-Pro-B Natriuret Pep Total Protein Albumin HDL Cholesterol 01/18/19 01/18/19 01/18/19 12:04 18:16 20:47 WBC RBC Hgb Hct MCV RDW Plt Count Lymph % (Auto) [place] % (Auto) Lymph # Seg Neutrophils % Seg Neuts % (Manual) Lymphocytes % (Manual) Seg Neutrophils # Seg Neutrophils # Man Lymphocytes # (Manual) PT INR POC ABG pH 7.489 H POC ABG pCO2 32.8 L POC ABG pO2 Sodium Potassium Chloride Carbon Dioxide BUN Creatinine Glucose POC Glucose 113 H 119 H Calcium Magnesium AST Total Creatine Kinase CK-MB (CK-2) Troponin T NT-Pro-B Natriuret Pep Total Protein Albumin HDL Cholesterol 01/19/19 01/19/19 01/19/19 00:40 05:35 11:39 WBC RBC Hgb Hct MCV RDW Plt Count Lymph % (Auto) [place] % (Auto) Lymph # Seg Neutrophils % Seg Neuts % (Manual) Lymphocytes % (Manual) Seg Neutrophils # Seg Neutrophils # Man Lymphocytes # (Manual) PT INR POC ABG pH POC ABG pCO2 POC ABG pO2 Sodium Potassium Chloride Carbon Dioxide BUN Creatinine Glucose POC Glucose 137 H 157 H 155 H Calcium Magnesium AST Total Creatine Kinase CK-MB (CK-2) Troponin T NT-Pro-B Natriuret Pep Total Protein Albumin HDL Cholesterol 01/19/19 01/19/19 01/19/19 18:24 21:08 23:33 WBC RBC Hgb Hct MCV RDW Plt Count Lymph % (Auto) [place] % (Auto) Lymph # Seg Neutrophils % Seg Neuts % (Manual) Lymphocytes % (Manual) Seg Neutrophils # Seg Neutrophils # Man Lymphocytes # (Manual) PT INR POC ABG pH 7.508 H POC ABG pCO2 34.2 L POC ABG pO2 Sodium Potassium Chloride Carbon Dioxide BUN Creatinine Glucose POC Glucose 145 H 156 H Calcium Magnesium AST Total Creatine Kinase CK-MB (CK-2) Troponin T NT-Pro-B Natriuret Pep Total Protein Albumin HDL Cholesterol 01/20/19 01/20/19 01/20/19 05:12 11:42 17:36 WBC RBC Hgb Hct MCV RDW Plt Count Lymph % (Auto) [place] % (Auto) Lymph # Seg Neutrophils % Seg Neuts % (Manual) Lymphocytes % (Manual) Seg Neutrophils # Seg Neutrophils # Man Lymphocytes # (Manual) PT INR POC ABG pH POC ABG pCO2 POC ABG pO2 Sodium Potassium Chloride Carbon Dioxide BUN Creatinine Glucose POC Glucose 152 H 159 H 169 H Calcium Magnesium AST Total Creatine Kinase CK-MB (CK-2) Troponin T NT-Pro-B Natriuret Pep Total Protein Albumin HDL Cholesterol 01/20/19 01/21/19 01/21/19 23:29 05:30 05:34 WBC RBC Hgb Hct MCV RDW Plt Count Lymph % (Auto) [place] % (Auto) Lymph # Seg Neutrophils % Seg Neuts % (Manual) Lymphocytes % (Manual) Seg Neutrophils # Seg Neutrophils # Man Lymphocytes # (Manual) PT INR POC ABG pH 7.616 H POC ABG pCO2 POC ABG pO2 71 L Sodium Potassium Chloride Carbon Dioxide BUN Creatinine Glucose POC Glucose 139 H 138 H Calcium Magnesium AST Total Creatine Kinase CK-MB (CK-2) Troponin T NT-Pro-B Natriuret Pep Total Protein Albumin HDL Cholesterol 01/21/19 01/21/19 01/22/19 12:41 18:47 00:07 WBC RBC Hgb Hct MCV RDW Plt Count Lymph % (Auto) [place] % (Auto) Lymph # Seg Neutrophils % Seg Neuts % (Manual) Lymphocytes % (Manual) Seg Neutrophils # Seg Neutrophils # Man Lymphocytes # (Manual) PT INR POC ABG pH POC ABG pCO2 POC ABG pO2 Sodium Potassium Chloride Carbon Dioxide BUN Creatinine Glucose POC Glucose 154 H 174 H 163 H Calcium Magnesium AST Total Creatine Kinase CK-MB (CK-2) Troponin T NT-Pro-B Natriuret Pep Total Protein Albumin HDL Cholesterol 01/22/19 01/22/19 01/22/19 04:35 05:46 12:18 WBC RBC Hgb Hct MCV RDW Plt Count Lymph % (Auto) [place] % (Auto) Lymph # Seg Neutrophils % Seg Neuts % (Manual) Lymphocytes % (Manual) Seg Neutrophils # Seg Neutrophils # Man Lymphocytes # (Manual) PT INR POC ABG pH 7.522 H POC ABG pCO2 POC ABG pO2 Sodium Potassium Chloride Carbon Dioxide BUN Creatinine Glucose POC Glucose 159 H 137 H Calcium Magnesium AST Total Creatine Kinase CK-MB (CK-2) Troponin T NT-Pro-B Natriuret Pep Total Protein Albumin HDL Cholesterol 01/22/19 01/22/19 01/22/19 15:00 15:00 18:13 WBC RBC 2.92 L Hgb 8.4 L Hct 25.6 L MCV RDW Plt Count Lymph % (Auto) [place] % (Auto) Lymph # Seg Neutrophils % Seg Neuts % (Manual) Lymphocytes % (Manual) Seg Neutrophils # Seg Neutrophils # Man Lymphocytes # (Manual) PT INR POC ABG pH POC ABG pCO2 POC ABG pO2 Sodium Potassium Chloride 97.0 L Carbon Dioxide BUN 37 H Creatinine Glucose 162 H POC Glucose 159 H Calcium 8.2 L Magnesium AST Total Creatine Kinase CK-MB (CK-2) Troponin T NT-Pro-B Natriuret Pep Total Protein Albumin HDL Cholesterol 01/22/19 01/23/19 01/23/19 22:45 00:01 05:10 WBC RBC 2.92 L Hgb 8.5 L Hct 25.4 L MCV RDW Plt Count Lymph % (Auto) 6.3 L [place] % (Auto) Lymph # 0.6 L Seg Neutrophils % 86.3 H Seg Neuts % (Manual) Lymphocytes % (Manual) Seg Neutrophils # 8.9 H Seg Neutrophils # Man Lymphocytes # (Manual) PT INR POC ABG pH POC ABG pCO2 POC ABG pO2 Sodium Potassium Chloride Carbon Dioxide BUN Creatinine Glucose POC Glucose 178 H 155 H Calcium Magnesium AST Total Creatine Kinase CK-MB (CK-2) Troponin T NT-Pro-B Natriuret Pep Total Protein Albumin HDL Cholesterol 01/23/19 01/23/19 01/23/19 11:31 17:49 Unknown WBC RBC Hgb Hct MCV RDW Plt Count Lymph % (Auto) [place] % (Auto) Lymph # Seg Neutrophils % Seg Neuts % (Manual) Lymphocytes % (Manual) Seg Neutrophils # Seg Neutrophils # Man Lymphocytes # (Manual) PT INR POC ABG pH POC ABG pCO2 POC ABG pO2 Sodium Potassium Chloride 95.4 L Carbon Dioxide BUN 37 H Creatinine Glucose 144 H POC Glucose 161 H 142 H Calcium Magnesium AST 88 H Total Creatine Kinase CK-MB (CK-2) Troponin T NT-Pro-B Natriuret Pep Total Protein 6.0 L Albumin 2.9 L HDL Cholesterol 01/24/19 01/24/19 01/24/19 00:21 05:36 12:35 WBC RBC Hgb Hct MCV RDW Plt Count Lymph % (Auto) [place] % (Auto) Lymph # Seg Neutrophils % Seg Neuts % (Manual) Lymphocytes % (Manual) Seg Neutrophils # Seg Neutrophils # Man Lymphocytes # (Manual) PT INR POC ABG pH POC ABG pCO2 POC ABG pO2 Sodium Potassium Chloride Carbon Dioxide BUN Creatinine Glucose POC Glucose 163 H 147 H 263 H Calcium Magnesium AST Total Creatine Kinase CK-MB (CK-2) Troponin T NT-Pro-B Natriuret Pep Total Protein Albumin HDL Cholesterol 01/24/19 01/24/19 01/24/19 17:46 23:07 Unknown WBC RBC 2.90 L Hgb 8.3 L Hct 25.0 L MCV RDW Plt Count Lymph % (Auto) [place] % (Auto) Lymph # Seg Neutrophils % Seg Neuts % (Manual) Lymphocytes % (Manual) Seg Neutrophils # Seg Neutrophils # Man Lymphocytes # (Manual) PT INR POC ABG pH POC ABG pCO2 POC ABG pO2 Sodium Potassium Chloride Carbon Dioxide BUN Creatinine Glucose POC Glucose 161 H 167 H Calcium Magnesium AST Total Creatine Kinase CK-MB (CK-2) Troponin T NT-Pro-B Natriuret Pep Total Protein Albumin HDL Cholesterol 01/24/19 01/25/19 01/25/19 Unknown 05:15 05:15 WBC RBC 2.90 L Hgb 8.4 L Hct 25.2 L MCV RDW Plt Count Lymph % (Auto) [place] % (Auto) Lymph # Seg Neutrophils % Seg Neuts % (Manual) Lymphocytes % (Manual) Seg Neutrophils # Seg Neutrophils # Man Lymphocytes # (Manual) PT INR POC ABG pH POC ABG pCO2 POC ABG pO2 Sodium 134 L 135 L Potassium Chloride 94.4 L 94.0 L Carbon Dioxide BUN 35 H 35 H Creatinine Glucose 151 H 128 H POC Glucose Calcium Magnesium AST Total Creatine Kinase CK-MB (CK-2) Troponin T NT-Pro-B Natriuret Pep Total Protein Albumin HDL Cholesterol 01/25/19 01/25/19 01/25/19 05:15 05:35 11:09 WBC RBC Hgb Hct MCV RDW Plt Count Lymph % (Auto) [place] % (Auto) Lymph # Seg Neutrophils % Seg Neuts % (Manual) Lymphocytes % (Manual) Seg Neutrophils # Seg Neutrophils # Man Lymphocytes # (Manual) PT 18.8 H INR 1.47 H POC ABG pH POC ABG pCO2 POC ABG pO2 Sodium Potassium Chloride Carbon Dioxide BUN Creatinine Glucose POC Glucose 126 H 149 H Calcium Magnesium AST Total Creatine Kinase CK-MB (CK-2) Troponin T NT-Pro-B Natriuret Pep Total Protein Albumin HDL Cholesterol 01/25/19 01/25/19 01/26/19 17:24 23:41 00:09 WBC RBC Hgb Hct MCV RDW Plt Count Lymph % (Auto) [place] % (Auto) Lymph # Seg Neutrophils % Seg Neuts % (Manual) Lymphocytes % (Manual) Seg Neutrophils # Seg Neutrophils # Man Lymphocytes # (Manual) PT INR POC ABG pH POC ABG pCO2 POC ABG pO2 Sodium Potassium Chloride Carbon Dioxide BUN Creatinine Glucose POC Glucose 140 H 142 H 156 H Calcium Magnesium AST Total Creatine Kinase CK-MB (CK-2) Troponin T NT-Pro-B Natriuret Pep Total Protein Albumin HDL Cholesterol 01/26/19 01/26/19 01/26/19 05:05 06:35 06:35 WBC RBC 2.83 L Hgb 8.1 L Hct 24.4 L MCV RDW Plt Count Lymph % (Auto) [place] % (Auto) Lymph # Seg Neutrophils % Seg Neuts % (Manual) Lymphocytes % (Manual) Seg Neutrophils # Seg Neutrophils # Man Lymphocytes # (Manual) PT INR POC ABG pH POC ABG pCO2 POC ABG pO2 Sodium Potassium Chloride 96.9 L Carbon Dioxide BUN 29 H Creatinine Glucose 141 H POC Glucose 159 H Calcium 8.3 L Magnesium AST Total Creatine Kinase CK-MB (CK-2) Troponin T NT-Pro-B Natriuret Pep Total Protein Albumin HDL Cholesterol 01/26/19 01/26/19 01/27/19 13:16 19:10 00:08 WBC RBC Hgb Hct MCV RDW Plt Count Lymph % (Auto) [place] % (Auto) Lymph # Seg Neutrophils % Seg Neuts % (Manual) Lymphocytes % (Manual) Seg Neutrophils # Seg Neutrophils # Man Lymphocytes # (Manual) PT INR POC ABG pH POC ABG pCO2 POC ABG pO2 Sodium Potassium Chloride Carbon Dioxide BUN Creatinine Glucose POC Glucose 159 H 146 H 140 H Calcium Magnesium AST Total Creatine Kinase CK-MB (CK-2) Troponin T NT-Pro-B Natriuret Pep Total Protein Albumin HDL Cholesterol 01/27/19 01/27/19 01/27/19 03:30 03:30 06:23 WBC RBC 2.85 L Hgb 8.3 L Hct 24.8 L MCV RDW Plt Count Lymph % (Auto) [place] % (Auto) Lymph # Seg Neutrophils % Seg Neuts % (Manual) Lymphocytes % (Manual) Seg Neutrophils # Seg Neutrophils # Man Lymphocytes # (Manual) PT INR POC ABG pH POC ABG pCO2 POC ABG pO2 Sodium 136 L Potassium Chloride 97.1 L Carbon Dioxide BUN 26 H Creatinine Glucose 129 H POC Glucose 154 H Calcium Magnesium AST Total Creatine Kinase CK-MB (CK-2) Troponin T NT-Pro-B Natriuret Pep Total Protein Albumin HDL Cholesterol 01/27/19 01/27/19 01/27/19 12:47 17:43 23:31 WBC RBC Hgb Hct MCV RDW Plt Count Lymph % (Auto) [place] % (Auto) Lymph # Seg Neutrophils % Seg Neuts % (Manual) Lymphocytes % (Manual) Seg Neutrophils # Seg Neutrophils # Man Lymphocytes # (Manual) PT INR POC ABG pH POC ABG pCO2 POC ABG pO2 Sodium Potassium Chloride Carbon Dioxide BUN Creatinine Glucose POC Glucose 159 H 180 H 164 H Calcium Magnesium AST Total Creatine Kinase CK-MB (CK-2) Troponin T NT-Pro-B Natriuret Pep Total Protein Albumin HDL Cholesterol 01/28/19 01/28/19 01/28/19 04:35 12:01 12:01 WBC RBC 2.67 L Hgb 7.9 L Hct 22.9 L MCV RDW Plt Count Lymph % (Auto) [place] % (Auto) Lymph # Seg Neutrophils % Seg Neuts % (Manual) Lymphocytes % (Manual) Seg Neutrophils # Seg Neutrophils # Man Lymphocytes # (Manual) PT INR POC ABG pH POC ABG pCO2 POC ABG pO2 Sodium 136 L Potassium 3.5 L Chloride Carbon Dioxide BUN 18 H Creatinine Glucose 143 H POC Glucose 139 H Calcium 8.0 L Magnesium AST Total Creatine Kinase CK-MB (CK-2) Troponin T NT-Pro-B Natriuret Pep Total Protein Albumin HDL Cholesterol 01/28/19 01/28/19 01/28/19 12:04 16:59 17:11 WBC RBC Hgb Hct MCV RDW Plt Count Lymph % (Auto) [place] % (Auto) Lymph # Seg Neutrophils % Seg Neuts % (Manual) Lymphocytes % (Manual) Seg Neutrophils # Seg Neutrophils # Man Lymphocytes # (Manual) PT INR POC ABG pH 7.488 H POC ABG pCO2 34.1 L POC ABG pO2 Sodium Potassium Chloride Carbon Dioxide BUN Creatinine Glucose POC Glucose 143 H 163 H Calcium Magnesium AST Total Creatine Kinase CK-MB (CK-2) Troponin T NT-Pro-B Natriuret Pep Total Protein Albumin HDL Cholesterol 01/29/19 01/29/19 01/29/19 00:10 05:47 12:08 WBC RBC Hgb Hct MCV RDW Plt Count Lymph % (Auto) [place] % (Auto) Lymph # Seg Neutrophils % Seg Neuts % (Manual) Lymphocytes % (Manual) Seg Neutrophils # Seg Neutrophils # Man Lymphocytes # (Manual) PT INR POC ABG pH POC ABG pCO2 POC ABG pO2 Sodium Potassium Chloride Carbon Dioxide BUN Creatinine Glucose POC Glucose 171 H 187 H 137 H Calcium Magnesium AST Total Creatine Kinase CK-MB (CK-2) Troponin T NT-Pro-B Natriuret Pep Total Protein Albumin HDL Cholesterol 01/29/19 01/29/19 01/29/19 16:48 16:54 17:47 WBC RBC Hgb Hct MCV RDW Plt Count Lymph % (Auto) [place] % (Auto) Lymph # Seg Neutrophils % Seg Neuts % (Manual) Lymphocytes % (Manual) Seg Neutrophils # Seg Neutrophils # Man Lymphocytes # (Manual) PT INR POC ABG pH 7.486 H 7.512 H POC ABG pCO2 32.8 L 32.7 L POC ABG pO2 108 H Sodium Potassium Chloride Carbon Dioxide BUN Creatinine Glucose POC Glucose 156 H Calcium Magnesium AST Total Creatine Kinase CK-MB (CK-2) Troponin T NT-Pro-B Natriuret Pep Total Protein Albumin HDL Cholesterol 01/29/19 01/30/19 01/30/19 23:48 06:45 07:18 WBC RBC 2.94 L Hgb 8.6 L Hct 25.7 L MCV RDW Plt Count Lymph % (Auto) [place] % (Auto) Lymph # Seg Neutrophils % Seg Neuts % (Manual) Lymphocytes % (Manual) Seg Neutrophils # Seg Neutrophils # Man Lymphocytes # (Manual) PT INR POC ABG pH POC ABG pCO2 POC ABG pO2 Sodium 135 L Potassium Chloride Carbon Dioxide BUN Creatinine Glucose 141 H POC Glucose 185 H Calcium 8.3 L Magnesium AST Total Creatine Kinase CK-MB (CK-2) Troponin T NT-Pro-B Natriuret Pep Total Protein Albumin HDL Cholesterol 01/30/19 01/30/19 01/30/19 11:17 16:47 18:16 WBC RBC Hgb Hct MCV RDW Plt Count Lymph % (Auto) [place] % (Auto) Lymph # Seg Neutrophils % Seg Neuts % (Manual) Lymphocytes % (Manual) Seg Neutrophils # Seg Neutrophils # Man Lymphocytes # (Manual) PT INR POC ABG pH 7.508 H POC ABG pCO2 31.5 L POC ABG pO2 135 H Sodium Potassium Chloride Carbon Dioxide BUN Creatinine Glucose POC Glucose 170 H 108 H Calcium Magnesium AST Total Creatine Kinase CK-MB (CK-2) Troponin T NT-Pro-B Natriuret Pep Total Protein Albumin HDL Cholesterol 01/30/19 01/31/19 01/31/19 23:38 05:45 12:04 WBC RBC Hgb Hct MCV RDW Plt Count Lymph % (Auto) [place] % (Auto) Lymph # Seg Neutrophils % Seg Neuts % (Manual) Lymphocytes % (Manual) Seg Neutrophils # Seg Neutrophils # Man Lymphocytes # (Manual) PT INR POC ABG pH POC ABG pCO2 POC ABG pO2 Sodium Potassium Chloride Carbon Dioxide BUN Creatinine Glucose POC Glucose 146 H 121 H 152 H Calcium Magnesium AST Total Creatine Kinase CK-MB (CK-2) Troponin T NT-Pro-B Natriuret Pep Total Protein Albumin HDL Cholesterol 01/31/19 01/31/19 02/01/19 17:44 23:58 05:46 WBC RBC Hgb Hct MCV RDW Plt Count Lymph % (Auto) [place] % (Auto) Lymph # Seg Neutrophils % Seg Neuts % (Manual) Lymphocytes % (Manual) Seg Neutrophils # Seg Neutrophils # Man Lymphocytes # (Manual) PT INR POC ABG pH POC ABG pCO2 POC ABG pO2 Sodium Potassium Chloride Carbon Dioxide BUN Creatinine Glucose POC Glucose 153 H 183 H 116 H Calcium Magnesium AST Total Creatine Kinase CK-MB (CK-2) Troponin T NT-Pro-B Natriuret Pep Total Protein Albumin HDL Cholesterol 02/01/19 02/01/19 02/01/19 11:10 12:18 17:48 WBC RBC Hgb Hct MCV RDW Plt Count Lymph % (Auto) [place] % (Auto) Lymph # Seg Neutrophils % Seg Neuts % (Manual) Lymphocytes % (Manual) Seg Neutrophils # Seg Neutrophils # Man Lymphocytes # (Manual) PT INR POC ABG pH POC ABG pCO2 POC ABG pO2 Sodium 133 L Potassium 3.3 L Chloride 96.1 L Carbon Dioxide BUN Creatinine Glucose 145 H POC Glucose 175 H 129 H Calcium 8.3 L Magnesium AST Total Creatine Kinase CK-MB (CK-2) Troponin T NT-Pro-B Natriuret Pep Total Protein Albumin HDL Cholesterol 02/01/19 02/02/19 02/02/19 23:13 05:16 06:00 WBC RBC Hgb Hct MCV RDW Plt Count Lymph % (Auto) [place] % (Auto) Lymph # Seg Neutrophils % Seg Neuts % (Manual) Lymphocytes % (Manual) Seg Neutrophils # Seg Neutrophils # Man Lymphocytes # (Manual) PT INR POC ABG pH POC ABG pCO2 POC ABG pO2 Sodium 135 L Potassium Chloride Carbon Dioxide BUN 18 H Creatinine Glucose 121 H POC Glucose 143 H 140 H Calcium 8.3 L Magnesium 1.60 L AST Total Creatine Kinase CK-MB (CK-2) Troponin T NT-Pro-B Natriuret Pep Total Protein Albumin HDL Cholesterol 02/02/19 02/02/19 02/02/19 12:06 18:23 23:45 WBC RBC Hgb Hct MCV RDW Plt Count Lymph % (Auto) [place] % (Auto) Lymph # Seg Neutrophils % Seg Neuts % (Manual) Lymphocytes % (Manual) Seg Neutrophils # Seg Neutrophils # Man Lymphocytes # (Manual) PT INR POC ABG pH POC ABG pCO2 POC ABG pO2 Sodium Potassium Chloride Carbon Dioxide BUN Creatinine Glucose POC Glucose 156 H 159 H 139 H Calcium Magnesium AST Total Creatine Kinase CK-MB (CK-2) Troponin T NT-Pro-B Natriuret Pep Total Protein Albumin HDL Cholesterol 02/03/19 02/03/19 02/03/19:19 12:02 17:24 WBC RBC Hgb Hct MCV RDW Plt Count Lymph % (Auto) [place] % (Auto) Lymph # Seg Neutrophils % Seg Neuts % (Manual) Lymphocytes % (Manual) Seg Neutrophils # Seg Neutrophils # Man Lymphocytes # (Manual) PT INR POC ABG pH POC ABG pCO2 POC ABG pO2 Sodium Potassium Chloride Carbon Dioxide BUN Creatinine Glucose POC Glucose 147 H 163 H 144 H Calcium Magnesium AST Total Creatine Kinase CK-MB (CK-2) Troponin T NT-Pro-B Natriuret Pep Total Protein Albumin HDL Cholesterol 02/03/19 02/04/19 02/04/19 23:43 05:30 11:14 WBC RBC 3.00 L Hgb 8.7 L Hct 25.9 L MCV RDW Plt Count Lymph % (Auto) 11.5 L [place] % (Auto) 7.5 H Lymph # 0.8 L Seg Neutrophils % 79.6 H Seg Neuts % (Manual) Lymphocytes % (Manual) Seg Neutrophils # Seg Neutrophils # Man Lymphocytes # (Manual) PT INR POC ABG pH POC ABG pCO2 POC ABG pO2 Sodium Potassium Chloride Carbon Dioxide BUN Creatinine Glucose POC Glucose 131 H 145 H Calcium Magnesium AST Total Creatine Kinase CK-MB (CK-2) Troponin T NT-Pro-B Natriuret Pep Total Protein Albumin HDL Cholesterol 02/04/19 02/04/19 02/04/19 11:14 12:09 17:37 WBC RBC Hgb Hct MCV RDW Plt Count Lymph % (Auto) [place] % (Auto) Lymph # Seg Neutrophils % Seg Neuts % (Manual) Lymphocytes % (Manual) Seg Neutrophils # Seg Neutrophils # Man Lymphocytes # (Manual) PT INR POC ABG pH POC ABG pCO2 POC ABG pO2 Sodium Potassium Chloride 96.5 L Carbon Dioxide BUN 30 H Creatinine Glucose 142 H POC Glucose 149 H 170 H Calcium Magnesium AST Total Creatine Kinase CK-MB (CK-2) Troponin T NT-Pro-B Natriuret Pep Total Protein Albumin HDL Cholesterol 02/04/19 02/05/19 02/05/19 23:33 04:27 04:27 WBC RBC 3.61 L Hgb Hct MCV RDW Plt Count Lymph % (Auto) 12.3 L [place] % (Auto) Lymph # 0.9 L Seg Neutrophils % 79.1 H Seg Neuts % (Manual) Lymphocytes % (Manual) Seg Neutrophils # Seg Neutrophils # Man Lymphocytes # (Manual) PT INR POC ABG pH POC ABG pCO2 POC ABG pO2 Sodium Potassium Chloride 96.0 L Carbon Dioxide BUN 26 H Creatinine Glucose 118 H POC Glucose 182 H Calcium Magnesium AST Total Creatine Kinase CK-MB (CK-2) Troponin T NT-Pro-B Natriuret Pep Total Protein Albumin HDL Cholesterol 02/05/19 02/05/19 02/05/19 05:51 12:37 23:56 WBC RBC Hgb Hct MCV RDW Plt Count Lymph % (Auto) [place] % (Auto) Lymph # Seg Neutrophils % Seg Neuts % (Manual) Lymphocytes % (Manual) Seg Neutrophils # Seg Neutrophils # Man Lymphocytes # (Manual) PT INR POC ABG pH POC ABG pCO2 POC ABG pO2 Sodium Potassium Chloride Carbon Dioxide BUN Creatinine Glucose POC Glucose 162 H 147 H 167 H Calcium Magnesium AST Total Creatine Kinase CK-MB (CK-2) Troponin T NT-Pro-B Natriuret Pep Total Protein Albumin HDL Cholesterol 02/06/19 02/06/19 02/06/19 05:33 12:02 16:42 WBC RBC Hgb Hct MCV RDW Plt Count Lymph % (Auto) [place] % (Auto) Lymph # Seg Neutrophils % Seg Neuts % (Manual) Lymphocytes % (Manual) Seg Neutrophils # Seg Neutrophils # Man Lymphocytes # (Manual) PT INR POC ABG pH POC ABG pCO2 POC ABG pO2 Sodium Potassium Chloride Carbon Dioxide BUN Creatinine Glucose POC Glucose 124 H 156 H 125 H Calcium Magnesium AST Total Creatine Kinase CK-MB (CK-2) Troponin T NT-Pro-B Natriuret Pep Total Protein Albumin HDL Cholesterol 02/07/19 02/07/19 02/07/19 00:21 05:46 11:28 WBC RBC Hgb Hct MCV RDW Plt Count Lymph % (Auto) [place] % (Auto) Lymph # Seg Neutrophils % Seg Neuts % (Manual) Lymphocytes % (Manual) Seg Neutrophils # Seg Neutrophils # Man Lymphocytes # (Manual) PT INR POC ABG pH POC ABG pCO2 POC ABG pO2 Sodium Potassium Chloride Carbon Dioxide BUN Creatinine Glucose POC Glucose 206 H 153 H 200 H Calcium Magnesium AST Total Creatine Kinase CK-MB (CK-2) Troponin T NT-Pro-B Natriuret Pep Total Protein Albumin HDL Cholesterol 02/07/19 02/08/19 02/08/19 18:48 00:08 05:29 WBC RBC Hgb Hct MCV RDW Plt Count Lymph % (Auto) [place] % (Auto) Lymph # Seg Neutrophils % Seg Neuts % (Manual) Lymphocytes % (Manual) Seg Neutrophils # Seg Neutrophils # Man Lymphocytes # (Manual) PT INR POC ABG pH POC ABG pCO2 POC ABG pO2 Sodium Potassium Chloride Carbon Dioxide BUN Creatinine Glucose POC Glucose 185 H 174 H 148 H Calcium Magnesium AST Total Creatine Kinase CK-MB (CK-2) Troponin T NT-Pro-B Natriuret Pep Total Protein Albumin HDL Cholesterol 02/08/19 02/08/19 02/08/19 07:00 07:00 11:45 WBC RBC 3.12 L Hgb 8.9 L Hct 26.7 L MCV RDW Plt Count Lymph % (Auto) 9.5 L [place] % (Auto) Lymph # 0.9 L Seg Neutrophils % 84.5 H Seg Neuts % (Manual) Lymphocytes % (Manual) Seg Neutrophils # 8.1 H Seg Neutrophils # Man Lymphocytes # (Manual) PT INR POC ABG pH POC ABG pCO2 POC ABG pO2 Sodium 135 L Potassium Chloride 91.1 L Carbon Dioxide 33 H BUN 44 H Creatinine Glucose 166 H POC Glucose 166 H Calcium Magnesium AST Total Creatine Kinase CK-MB (CK-2) Troponin T NT-Pro-B Natriuret Pep Total Protein Albumin HDL Cholesterol 02/09/19 02/09/19 02/09/19 01:31 05:44 10:48 WBC RBC Hgb Hct MCV RDW Plt Count Lymph % (Auto) [place] % (Auto) Lymph # Seg Neutrophils % Seg Neuts % (Manual) Lymphocytes % (Manual) Seg Neutrophils # Seg Neutrophils # Man Lymphocytes # (Manual) PT INR POC ABG pH POC ABG pCO2 POC ABG pO2 Sodium Potassium Chloride Carbon Dioxide BUN Creatinine Glucose POC Glucose 215 H 146 H 151 H Calcium Magnesium AST Total Creatine Kinase CK-MB (CK-2) Troponin T NT-Pro-B Natriuret Pep Total Protein Albumin HDL Cholesterol 02/09/19 02/09/19 02/10/19 15:35 21:21 01:00 WBC RBC Hgb Hct MCV RDW Plt Count Lymph % (Auto) [place] % (Auto) Lymph # Seg Neutrophils % Seg Neuts % (Manual) Lymphocytes % (Manual) Seg Neutrophils # Seg Neutrophils # Man Lymphocytes # (Manual) PT INR POC ABG pH POC ABG pCO2 POC ABG pO2 Sodium Potassium Chloride Carbon Dioxide BUN Creatinine Glucose POC Glucose 139 H 153 H 183 H Calcium Magnesium AST Total Creatine Kinase CK-MB (CK-2) Troponin T NT-Pro-B Natriuret Pep Total Protein Albumin HDL Cholesterol 02/10/19 02/10/19 02/10/19 05:27 06:54 11:46 WBC RBC Hgb Hct MCV RDW Plt Count Lymph % (Auto) [place] % (Auto) Lymph # Seg Neutrophils % Seg Neuts % (Manual) Lymphocytes % (Manual) Seg Neutrophils # Seg Neutrophils # Man Lymphocytes # (Manual) PT INR POC ABG pH POC ABG pCO2 POC ABG pO2 Sodium Potassium Chloride Carbon Dioxide BUN Creatinine Glucose POC Glucose 155 H 135 H 165 H Calcium Magnesium AST Total Creatine Kinase CK-MB (CK-2) Troponin T NT-Pro-B Natriuret Pep Total Protein Albumin HDL Cholesterol 02/10/19 02/10/19 02/11/19 17:59 22:07 07:07 WBC RBC Hgb Hct MCV RDW Plt Count Lymph % (Auto) [place] % (Auto) Lymph # Seg Neutrophils % Seg Neuts % (Manual) Lymphocytes % (Manual) Seg Neutrophils # Seg Neutrophils # Man Lymphocytes # (Manual) PT INR POC ABG pH POC ABG pCO2 POC ABG pO2 Sodium Potassium Chloride Carbon Dioxide BUN Creatinine Glucose POC Glucose 110 H 154 H 175 H Calcium Magnesium AST Total Creatine Kinase CK-MB (CK-2) Troponin T NT-Pro-B Natriuret Pep Total Protein Albumin HDL Cholesterol
[2019-02-11] MEDS: KEPPRA PO SCH ×2 (11:26→23:16)
[2019-02-11] MEDS: COREG PO SCH ×2 (11:27→23:15)
[2019-02-11] MEDS: LOVENOX SUB-Q SCH (11:27)
[2019-02-11] MEDS: PREVACID SOLUTAB FEEDTUBE SCH ×2 (11:27→23:17)
[2019-02-11] MEDS: NORVASC PO SCH (11:27)
[2019-02-11] MEDS: BABY ASPIRIN PO SCH (11:27)
[2019-02-11] MEDS: KENALOG TP SCH ×2 (11:28→23:20)
[2019-02-11] MEDS: SODIUM CHLORIDE FLUSH SYRINGE 10 ML IV SCH ×2 (17:27→23:18)
[2019-02-11] MEDS: SODIUM CHLORIDE FLUSH SYRINGE 10 ML IV PRN (23:19)
[2019-02-12] MEDS: HumaLOG SUB-Q SCH ×4 (01:42→17:58)
[2019-02-12] MEDS: DUONEB *Not for PRN Use IH SCH ×4 (01:55→21:00)
[2019-02-12] MEDS: LASIX PO SCH ×2 (05:13→17:58)
[2019-02-12] MEDS: REGLAN IV SCH ×3 (05:13→22:49)
[2019-02-12 06:27] LABS: Hematocrit 22.3 % (30.3-42.9); Hemoglobin 7.5 gm/dl (10.1-14.3); Mean Corpuscular HGB Conc 34 % (30-34); Mean Corpuscular Volume 86 fl (79-97); Platelet Count 133 K/mm3 (140-440); Red Blood Count 2.61 M/mm3 (3.65-5.03)
[2019-02-12 06:47] LABS: Alanine Aminotransferase 26 units/L (7-56); Albumin 2.9 g/dL (3.9-5); BUN/Creatinine Ratio 73; Blood Urea Nitrogen 58 mg/dL (7-17); Calcium 9.3 mg/dL (8.4-10.2); Hemolysis Index 1
[2019-02-12] MEDS: LOVENOX SUB-Q SCH (10:41)
[2019-02-12] MEDS: KEPPRA PO SCH ×2 (10:41→22:48)
[2019-02-12] MEDS: COREG PO SCH ×2 (10:41→22:48)
[2019-02-12] MEDS: NORVASC PO SCH (10:41)
[2019-02-12] MEDS: KENALOG TP SCH ×2 (10:42→22:51)
[2019-02-12] MEDS: PREVACID SOLUTAB FEEDTUBE SCH ×2 (10:42→22:49)
[2019-02-12] MEDS: SODIUM CHLORIDE FLUSH SYRINGE 10 ML IV SCH ×2 (10:43→22:49)
[2019-02-12] MEDS: BABY ASPIRIN PO SCH (10:43)
--- NOTE | 2019-02-12 11:38 | Progress Note ---
Assessment and Plan Assessment and plan: Patient is 73 yo woman with a history of hypertension, CAD s/p stent and COPD/emphesema, not on home Oxygen who presented to [facility] ED on 01/15/2019 after cardiac arrest. How long she was unresponsive/without oxygen is unknown. She was in PEA, given 2 rounds of IV Epinephrine, CPR, intubated , resuscitated, and brought to ED. She had seizures later same day, was started on keppra. She had CARMELINA on presentation, resolved in few days. She remained comatose, acute respiratory failure vent dependent. Trach and PEG was recommended. Tracheostomy done 01/25/19. PEG not done yet because of abdominal distension and poor light translumination. She has poor prognosis and may need LTAC Oropharyngeal dysphagia. PEG tube pending Anoxic encephalopathy, severe irreversible brain damage: EEG 01/17/19 reported as abnormal with minimal brain activity. No epileptiform discharges. Neurology following, supportive care Cardiopulmonary arrest. Patient with out of hospital PEA arrest and ROSC. Cardiology following. Acute hypoxemic hypercapnic respiratory failure. Patient previously on mechanical ventilation but has been weaned. Continue TP trials. Continue trach care. Aspiration pneumonia. Completed treatment Aspiration precautions. Sepsis, poa. Complete Pneumonia treatment ID following. Acute renal failure, tubular necrosis and vasomotor nephropathy, poa. resolved, Etiology likely secondary to acute kidney injury from sepsis. Creatinine is stable. Continue to monitor. Pulmonary hypertension. 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 Patient with moderate global hypokinesis of left ventricle EF 35-40% and left ventricular systolic function moderately decreased. Cardiology following CAD s/p stent placement, She goes to toppiece cutter at [place] Sacral decubitus, stage 3; continue wound care, decline to place a cooper, continue to use Purex catheter Disposition: continue inpatient care, await LTACH placement s/p PEG on Tuesday02/09/19, History Interval history: Patient was seen and examined. Follow-up on current diagnosis of Cardiac arrest. No overnight events reported to me. Patient nonverbal. Imaging, nursing note, chart, labs and old chart reviewed. Hospitalist Physical - Physical exam Narrative exam: Gen: ill appearing, cachetic, unresponsive, comatose HEENT: NCAT, trach in place Neck: supple, no adenopathy, no thyromegaly, no JVD CVS/Heart: RRR, normal S1S2, pulses present bilaterally Chest/Lungs: diminished bs bilateral, Symmetrical chest expansion, good air entry bilaterally GI/Abdomen: soft, NTND, good bowel sounds, no guarding or rebound Extermity/Skin: no obvious rash MSK: unresponsive Neuro: unresponsive Psych: unresponsive - Constitutional Vitals: Temp Pulse Resp BP Pulse Ox 97.9 F 90 26 H 101/58 99 02/12/19 09:08 02/12/19 10:41 02/12/19 09:08 02/12/19 09:08 02/12/19 09:08 General appearance: Present: other (trached, nonresponsive at time of ex amination) Results - Labs CBC & Chem 7: 02/12/19 06:00 02/12/19 06:00 Labs: Laboratory Last Values WBC 8.0 K/mm3 (4.5-11.0) 02/12/19 06:00 RBC 2.61 M/mm3 (3.65-5.03) L 02/12/19 06:00 Hgb 7.5 gm/dl (10.1-14.3) L 02/12/19 06:00 Hct 22.3 % (30.3-42.9) L 02/12/19 06:00 MCV 86 fl (79-97) 02/12/19 06:00 MCH 29 pg (28-32) 02/12/19 06:00 MCHC 34 % (30-34) 02/12/19 06:00 RDW 15.0 % (13.2-15.2) 02/12/19 06:00 Plt Count 133 K/mm3 (140-440) L 02/12/19 06:00 Lymph % (Auto) 9.5 % (13.4-35.0) L 02/08/19 07:00 [place] % (Auto) 5.3 % (0.0-7.3) 02/08/19 07:00 Eos % (Auto) 0.5 % (0.0-4.3) 02/08/19 07:00 Baso % (Auto) 0.2 % (0.0-1.8) 02/08/19 07:00 Lymph # 0.9 K/mm3 (1.2-5.4) L 02/08/19 07:00 [place] # 0.5 K/mm3 (0.0-0.8) 02/08/19 07:00 Eos # 0.0 K/mm3 (0.0-0.4) 02/08/19 07:00 Baso # 0.0 K/mm3 (0.0-0.1) 02/08/19 07:00 Add Manual Diff Complete 01/16/19 04:16 Total Counted 100 01/16/19 04:16 Seg Neutrophils % 84.5 % (40.0-70.0) H 02/08/19 07:00 Seg Neuts % (Manual) 74.0 % (40.0-70.0) H 01/16/19 04:16 22.0 % 01/16/19 04:16 2.0 % (13.4-35.0) L 01/16/19 04:16 Reactive Lymphs % (Man) 0 % 01/16/19 04:16 2.0 % (0.0-7.3) 01/16/19 04:16 0 % (0.0-4.3) 01/16/19 04:16 0 % (0.0-1.8) 01/16/19 04:16 0 % 01/16/19 04:16 0 % 01/16/19 04:16 0 % 01/16/19 04:16 0 % 01/16/19 04:16 Nucleated RBC % Not Reportable 01/16/19 04:16 Seg Neutrophils # 8.1 K/mm3 (1.8-7.7) H 02/08/19 07:00 Seg Neutrophils # Man 8.4 K/mm3 (1.8-7.7) H 01/16/19 04:16 Band Neutrophils # 2.5 K/mm3 01/16/19 04:16 0.2 K/mm3 (1.2-5.4) L 01/16/19 04:16 Abs React Lymphs (Man) 0.0 K/mm3 01/16/19 04:16 0.2 K/mm3 (0.0-0.8) 01/16/19 04:16 0.0 K/mm3 (0.0-0.4) 01/16/19 04:16 0.0 K/mm3 (0.0-0.1) 01/16/19 04:16 0.0 K/mm3 01/16/19 04:16 0.0 K/mm3 01/16/19 04:16 0.0 K/mm3 01/16/19 04:16 Blast Cells # 0.0 K/mm3 01/16/19 04:16 WBC Morphology Not Reportable 01/16/19 04:16 Hypersegmented Neuts Not Reportable 01/16/19 04:16 Hyposegmented Neuts Not Reportable 01/16/19 04:16 Hypogranular Neuts Not Reportable 01/16/19 04:16 Not Reportable 01/16/19 04:16 Not Reportable 01/16/19 04:16 Not Reportable 01/16/19 04:16 Not Reportable 01/16/19 04:16 Not Reportable 01/16/19 04:16 Not Reportable 01/16/19 04:16 Consistent w auto 01/16/19 04:16 Not Reportable 01/16/19 04:16 Plt Clumps, EDTA Not Reportable 01/16/19 04:16 Not Reportable 01/16/19 04:16 Not Reportable 01/16/19 04:16 Not Reportable 01/16/19 04:16 Plt Morphology Comment Not Reportable 01/16/19 04:16 RBC Morphology Normal 01/16/19 04:16 Dimorphic RBCs Not Reportable 01/16/19 04:16 Not Reportable 01/16/19 04:16 Not Reportable 01/16/19 04:16 Not Reportable 01/16/19 04:16 Not Reportable 01/16/19 04:16 Not Reportable 01/16/19 04:16 Not Reportable 01/16/19 04:16 Not Reportable 01/16/19 04:16 Not Reportable 01/16/19 04:16 Not Reportable 01/16/19 04:16 Not Reportable 01/16/19 04:16 Not Reportable 01/16/19 04:16 Not Reportable 01/16/19 04:16 Not Reportable 01/16/19 04:16 Not Reportable 01/16/19 04:16 Not Reportable 01/16/19 04:16 Not Reportable 01/16/19 04:16 Not Reportable 01/16/19 04:16 Not Reportable 01/16/19 04:16 Not Reportable 01/16/19 04:16 Acanthocytes (Spur) Not Reportable 01/16/19 04:16 Rouleaux Not Reportable 01/16/19 04:16 Not Reportable 01/16/19 04:16 Not Reportable 01/16/19 04:16 Not Reportable 01/16/19 04:16 Not Reportable 01/16/19 04:16 Hem Pathologist Commnt No 01/16/19 04:16 PT 18.8 Sec. (12.2-14.9) H 01/25/19 05:15 INR 1.47 (0.87-1.13) H 01/25/19 05:15 APTT 36.0 Sec. (24.2-36.6) 01/15/19 07:50 Heparin Anti-Xa, Unfract Negative (Negative) 01/19/19 Unknown POC ABG pH 7.508 (7.35-7.45) H 01/30/19 16:47 POC ABG pCO2 31.5 (35-45) L 01/30/19 16:47 POC ABG pO2 135 (80-105) H 01/30/19 16:47 POC ABG HCO3 25.0 (22-26 mml/L) 01/30/19 16:47 POC ABG Total CO2 26 (23-27mmol/L) 01/30/19 16:47 POC ABG O2 Sat 99 01/30/19 16:47 POC ABG Base Excess 2 ((-2) - (+3)mmol/L) 01/30/19 16:47 28 % 01/30/19 16:47 Sodium 140 mmol/L (137-145) 02/12/19 06:00 Potassium 3.7 mmol/L (3.6-5.0) 02/12/19 06:00 Chloride 96.3 mmol/L (98-107) L 02/12/19 06:00 Carbon Dioxide 33 mmol/L (22-30) H 02/12/19 06:00 14 mmol/L 02/12/19 06:00 BUN 58 mg/dL (7-17) H 02/12/19 06:00 0.8 mg/dL (0.7-1.2) 02/12/19 06:00 Estimated GFR > 60 ml/min 02/12/19 06:00 73 % 02/12/19 06:00 Glucose 157 mg/dL (65-100) H 02/12/19 06:00 POC Glucose 182 (70-105) H 02/12/19 01:20 6.0 % (4-6) 01/15/19 11:53 Calcium 9.3 mg/dL (8.4-10.2) 02/12/19 06:00 Phosphorus 3.10 mg/dL (2.5-4.5) 02/02/19 06:00 Magnesium 1.60 mg/dL (1.7-2.3) L 02/02/19 06:00 0.20 mg/dL (0.1-1.2) 02/12/19 06:00 AST 49 units/L (5-40) H 02/12/19 06:00 ALT 26 units/L (7-56) 02/12/19 06:00 69 units/L (35-129) 02/12/19 06:00 1430 units/L (30-135) H 01/15/19 17:52 CK-MB (CK-2) 13.5 ng/mL (0.0-4.0) H 01/15/19 17:52 CK-MB (CK-2) Rel Index 0.9 (0-4) 01/15/19 17:52 0.036 ng/mL (0.00-0.029) H D 01/15/19 17:52 NT-Pro-B Natriuret Pep 5346 pg/mL (0-900) H 01/15/19 07:50 6.5 g/dL (6.3-8.2) 02/12/19 06:00 2.9 g/dL (3.9-5) L 02/12/19 06:00 0.8 % 02/12/19 06:00 Triglycerides 75 mg/dL (2-149) 01/15/19 17:52 Cholesterol 149 mg/dL (50-199) 01/15/19 17:52 84 mg/dL (50-130) 01/15/19 17:52 65 mg/dL (40-59) H 01/15/19 17:52 2.29 % 01/15/19 17:52 See scanned report 01/19/19 Unknown Yellow (Yellow) 01/21/19 16:10 Clear (Clear) 01/21/19 16:10 6.0 (5.0-7.0) 01/21/19 16:10 Ur Specific [place] 1.015 (1.003-1.030) 01/21/19 16:10 <15 mg/dl mg/dL (Negative) 01/21/19 16:10 Neg mg/dL (Negative) 01/21/19 16:10 Neg mg/dL (Negative) 01/21/19 16:10 Neg (Negative) 01/21/19 16:10 Neg (Negative) 01/21/19 16:10 Neg (Negative) 01/21/19 16:10 2.0 mg/dL (<2.0) 01/21/19 16:10 Ur Leukocyte Esterase Neg (Negative) 01/21/19 16:10 1.0 /HPF (0.0-6.0) 01/21/19 16:10 5.0 /HPF (0.0-6.0) 01/21/19 16:10 Presumptive negative 01/15/19 16:30 Presumptive negative 01/15/19 16:30 Ur Barbiturates Screen Presumptive negative 01/15/19 16:30 Ur Phencyclidine Scrn Presumptive negative 01/15/19 16:30 Ur Amphetamines Screen Presumptive negative 01/15/19 16:30 U Benzodiazepines Scrn Presumptive negative 01/15/19 16:30 Presumptive negative 01/15/19 16:30 U Marijuana (THC) Screen Presumptive negative 01/15/19 16:30 Disclamer 01/15/19 16:30 Heparin-induced Plt Ab Negative (Negative) 01/19/19 Unknown UF Heparin High Dose 3 % Release 01/19/19 Unknown JOSEFA UFH Low Dose 0.1 4 % Release 01/19/19 Unknown JOSEFA UFH Low Dose 0.5 5 % Release 01/19/19 Unknown C. difficile Tox (PCR) Negative (Negative) 01/16/19 00:00 Active Medications - Current Medications Current Medications: Generic Name Dose Route Start Last Admin Trade Name Freq PRN Reason Stop Dose Admin Acetaminophen 650 mg 01/16/19 09:37 01/20/19 00:24 Tylenol PO 650 mg Q4H PRN Administration Fever >101 Albuterol/Ipratropium 1 ampul 01/15/19 14:00 02/12/19 08:00 Duoneb *Not For Prn Use* IH 1 ampul Q6HRT DEON Administration Amlodipine Besylate 10 mg 01/24/19 12:00 02/12/19 10:41 Norvasc PO 10 mg DAILY DEON Administration Lipase/Protease/Amylase 1 each 02/02/19 14:21 Pancreaze 10,500 Unit FEEDTUBE PRN PRN For Clogged Feeding Tube Aspirin 81 mg 01/16/19 10:00 02/12/19 10:43 Baby Aspirin PO 81 mg QDAY DEON Administration Atorvastatin Calcium 20 mg 01/16/19 22:00 02/11/19 23:17 Lipitor PO 20 mg QHS DEON Administration Carvedilol 12.5 mg 01/24/19 22:00 02/12/19 10:41 Coreg PO 12.5 mg BID DEON Administration Enoxaparin Sodium 40 mg 01/30/19 10:00 02/12/19 10:41 Lovenox SUB-Q 40 mg QDAY@1000 DEON Administration Furosemide 20 mg 01/19/19 18:00 02/12/19 05:13 Lasix PO 20 mg 0600,1800 DEON Administration Insulin Human Lispro 0 unit 01/22/19 14:00 02/12/19 07:28 Humalog SUB-Q 2 unit Q6HR DEON Administration Protocol Lansoprazole 30 mg 01/30/19 10:00 02/12/19 10:42 Prevacid Solutab FEEDTUBE 30 mg BID DEON Administration Levetiracetam 750 mg 01/18/19 10:00 02/12/19 10:41 Keppra PO 750 mg BID DEON Administration Metoclopramide HCl 10 mg 02/01/19 14:00 02/12/19 05:13 Reglan IV 10 mg Q8HR DEON Administration Scopolamine 1 each 02/09/19 16:00 02/09/19 21:57 Transderm-Scop TD 1 each Q3D DEON Administration Simple Syrup 15 ml 02/02/19 14:21 Simple Syrup FEEDTUBE PRN PRN Hypoglycemia Simple Syrup 30 ml 02/02/19 14:21 Simple Syrup FEEDTUBE PRN PRN Hypoglycemia Sodium Bicarbonate 325 mg 02/02/19 14:21 Sodium Bicarbonate FEEDTUBE PRN PRN For Clogged Feeding Tube Sodium Chloride 10 ml 01/15/19 22:00 02/12/19 10:43 Sodium Chloride Flush Syringe 10 Ml IV 10 ml BID DEON Administration Sodium Chloride 10 ml 01/15/19 10:34 02/11/19 23:19 Sodium Chloride Flush Syringe 10 Ml IV 10 ml PRN PRN Administration LINE FLUSH Triamcinolone Acetonide 1 applic 01/24/19 14:00 02/12/19 10:42 Kenalog TP 1 applic BID DEON Administration Nutrition/Malnutrition Assess - Dietary Evaluation Nutrition/Malnutrition Findings: Nutrition Notes Start: 01/15/19 14:28 Freq: Status: Active Protocol: Document 02/05/19 14:19 RM (Rec: 02/05/19 14:26 RM [id number]) Nutrition Notes Initial or Follow up Reassessment Current Diagnosis Acute Kidney Injury,Heart Failure,Respiratory Failure Other Pertinent Diagnosis dysphagia, s/p cardiorespiratory arrest (at home), Aspiration Pneu Current Diet Glucerna 1.2 at 50 ml/hr Labs/Tests Na 138 Pertinent Medications Lasix Height 5 ft 4 in Weight 47.7 kg [place] Body Weight (kg) 54.54 BMI 18.0 Subjective/Other Information Observed Glucerna 1.2 infusing at 50 ml/hr. Pt is tolerating TF per nurse. Percent of energy/protein needs met: 86%/100% Burn Absent Trauma Absent #1 Nutrition Diagnosis Inadequate oral intake Diagnosis Progress(for reassessment Continues documentation) Is patient on ventilator? No Is Patient Ambulatory and/or Out of Bed No REE-([facility]-confined to bed) 1155.024 Kcal/Kg value to use for calculation 35 Approximate Energy Requirements Using 1670 kcal/Kg Calculation Used for Recommendations Kcal/kg Additional Notes Pro needs 1-1.2g/k-57g/day Fluid needs 1ml/kcal Nutrition Intervention Nutrition Support: Glucerna 1.2 at 50ml/hr with 80ml water flush q4h. Kcal 1,440 Protein (gm) 72 Carbohydrates (gm) 137 Fluid (mL) 966 Fiber (gm) 19 Goal #1 Continue to meet at least 75% of calorie and protein needs via TF Goal #2 Wt maintenance and/or gain Follow-Up By: 02/13/19 Additional Comments Follow for TF tolerance
--- NOTE | 2019-02-12 18:03 | Progress Note ---
Assessment and Plan Patient resting on T Tube. FiO2 28%. O2 saturation 99%. Patient not responding to verbal stimuli. No acute respiratory distress. Patient afebrile, No leukocytosis. - Patient Problems (1) COPD (chronic obstructive pulmonary disease) with emphysema Current Visit: Yes Status: Acute Plan to address problem: 1. s/p tracheostomy on T tube FiO2 28% 2. Albuterol and atrovent aerosol treatment q6 hrs 3. Respiratory suctioning 4. Continue Lovenox 5. Patient is on Reglan (2) Acute respiratory failure with hypoxia Current Visit: Yes Status: Acute Plan to address problem: 1. s/p tracheostomy on T tube FiO2 28% 2. Albuterol and atrovent aerosol treatment q6 hrs 3. Respiratory suctioning 4. Continue Lovenox 5. Patient is on Reglan (3) Status post tracheostomy Current Visit: Yes Status: Acute Plan to address problem: Continue trach care. (4) Pulmonary infiltrates on CXR Current Visit: Yes Status: Acute Plan to address problem: Patient afebrile. No leukocytosis. Recommend respiratory suctioning. Continue aerosolized bronchodilators. If patient becomes febrile or develops leukocytosis recommend IV antibiotics. (5) CHF (congestive heart failure) Current Visit: Yes Status: Acute Plan to address problem: Management per cardiology. (6) Altered mental status Current Visit: Yes Status: Acute Plan to address problem: Management as per primary care. (7) CAD S/P percutaneous coronary angioplasty Current Visit: Yes Status: Chronic Plan to address problem: Managment per cardiology. (8) CKD (chronic kidney disease) Current Visit: Yes Status: Chronic Plan to address problem: Management per nephrology. Subjective Date of service: 02/12/19 Principal diagnosis: OOH cardiac arrest; Acute hypoxemic-hypercapnic Resp failure; PNA Interval history: Patient resting on T Tube. FiO2 28%. O2 saturation 99%. Patient not responding to verbal stimuli. No acute respiratory distress. Patient afebrile, no leukocytosis. Objective Vital Signs - 12hr 02/12/19 02/12/19 02/12/19 07:53 07:59 08:00 Temperature Pulse Rate Pulse Rate [ 89 Anterior Bilateral Throughout] Respiratory 18 Rate Respiratory 16 Rate [Anterior Bilateral Throughout] Blood Pressure O2 Sat by Pulse 98 100 Oximetry O2 Sat by Pulse Oximetry [ Assessment] 02/12/19 02/12/19 02/12/19 08:11 09:08 10:41 Temperature 97.9 F Pulse Rate 90 90 Pulse Rate [ 93 H Anterior Bilateral Throughout] Respiratory 26 H Rate Respiratory 16 Rate [Anterior Bilateral Throughout] Blood Pressure 101/58 O2 Sat by Pulse 99 Oximetry O2 Sat by Pulse Oximetry [ Assessment] 02/12/19 02/12/19 02/12/19 14:45 14:53 16:41 Temperature Pulse Rate Pulse Rate [ 101 H 102 H Anterior Bilateral Throughout] Respiratory Rate Respiratory 16 16 Rate [Anterior Bilateral Throughout] Blood Pressure O2 Sat by Pulse Oximetry O2 Sat by Pulse 100 Oximetry [ Assessment] Constitutional: no acute distress, asleep, other (elderly, atraumatic, normocephalic, chronically looking female) Eyes: non-icteric ENT: oropharynx moist, other (s/p tracheostomy) Neck: supple, no lymphadenopathy, no JVD Effort: normal Ascultation: Bilateral: diminished breath sounds, rales (bases), rhonchi (scant), other (coarse breath sound bilaterally upper lobes anteriorly) Percussion: Bilateral: not dull Cardiovascular: regular rate and rhythm, other (tacycardia, S1,S2, no murmurs, gallops or rubs) Gastrointestinal: normoactive bowel sounds, soft, non-tender, non-distended, other (PEG in place) Integumentary: normal Extremities: no cyanosis, no edema, pulses normal, no ischemia or petechiae Neurologic: unable to assess Psychiatric: other (unable to assess secondary to mental status) CBC and BMP: 02/12/19 06:00 02/12/19 06:00 ABG, PT/INR, D-dimer: ABG POC ABG pH 7.508 (7.35-7.45) H 01/30/19 16:47 POC ABG pCO2 31.5 (35-45) L 01/30/19 16:47 POC ABG pO2 135 (80-105) H 01/30/19 16:47 POC ABG HCO3 25.0 (22-26 mml/L) 01/30/19 16:47 POC ABG Total CO2 26 (23-27mmol/L) 01/30/19 16:47 POC ABG O2 Sat 99 01/30/19 16:47 PT/INR, D-dimer PT 18.8 Sec. (12.2-14.9) H 01/25/19 05:15 INR 1.47 (0.87-1.13) H 01/25/19 05:15 Abnormal lab findings: Abnormal Labs 01/15/19 01/15/19 01/15/19 07:50 07:50 07:50 WBC RBC Hgb Hct MCV 99 H RDW 16.7 H Plt Count 122 L Lymph % (Auto) [place] % (Auto) Lymph # Seg Neutrophils % Seg Neuts % (Manual) Lymphocytes % (Manual) Seg Neutrophils # Seg Neutrophils # Man Lymphocytes # (Manual) PT 19.7 H INR 1.56 H POC ABG pH POC ABG pCO2 POC ABG pO2 Sodium Potassium Chloride Carbon Dioxide 11 L BUN Creatinine 1.4 H Glucose 268 H POC Glucose Calcium Magnesium AST 57 H Total Creatine Kinase CK-MB (CK-2) Troponin T NT-Pro-B Natriuret Pep 5346 H Total Protein Albumin 3.6 L HDL Cholesterol 01/15/19 01/15/19 01/15/19 09:56 11:53 17:52 WBC RBC Hgb Hct MCV RDW Plt Count Lymph % (Auto) [place] % (Auto) Lymph # Seg Neutrophils % Seg Neuts % (Manual) Lymphocytes % (Manual) Seg Neutrophils # Seg Neutrophils # Man Lymphocytes # (Manual) PT INR POC ABG pH 7.186 L POC ABG pCO2 46.4 H POC ABG pO2 Sodium Potassium Chloride Carbon Dioxide BUN Creatinine Glucose POC Glucose Calcium Magnesium AST Total Creatine Kinase 683 H 1430 H CK-MB (CK-2) 9.5 H 13.5 H Troponin T 0.036 H D NT-Pro-B Natriuret Pep Total Protein Albumin HDL Cholesterol 65 H 01/15/19 01/15/19 01/16/19 18:31 21:46 02:14 WBC RBC Hgb Hct MCV RDW Plt Count Lymph % (Auto) [place] % (Auto) Lymph # Seg Neutrophils % Seg Neuts % (Manual) Lymphocytes % (Manual) Seg Neutrophils # Seg Neutrophils # Man Lymphocytes # (Manual) PT INR POC ABG pH POC ABG pCO2 31.8 L POC ABG pO2 167 H Sodium Potassium Chloride Carbon Dioxide BUN Creatinine Glucose POC Glucose 134 H 136 H Calcium Magnesium AST Total Creatine Kinase CK-MB (CK-2) Troponin T NT-Pro-B Natriuret Pep Total Protein Albumin HDL Cholesterol 01/16/19 01/16/19 01/16/19 04:16 04:16 05:05 WBC 11.4 H RBC Hgb Hct MCV RDW Plt Count 105 L Lymph % (Auto) [place] % (Auto) Lymph # Seg Neutrophils % Seg Neuts % (Manual) 74.0 H Lymphocytes % (Manual) 2.0 L Seg Neutrophils # Seg Neutrophils # Man 8.4 H Lymphocytes # (Manual) 0.2 L PT INR POC ABG pH 7.458 H POC ABG pCO2 31.4 L POC ABG pO2 135 H Sodium Potassium 3.3 L Chloride Carbon Dioxide 21 L D BUN 24 H Creatinine 1.5 H Glucose 141 H POC Glucose Calcium 8.1 L Magnesium AST 71 H Total Creatine Kinase CK-MB (CK-2) Troponin T NT-Pro-B Natriuret Pep Total Protein 6.2 L Albumin 3.5 L HDL Cholesterol 01/16/19 01/16/19 01/16/19 05:24 13:42 21:08 WBC RBC Hgb Hct MCV RDW Plt Count Lymph % (Auto) [place] % (Auto) Lymph # Seg Neutrophils % Seg Neuts % (Manual) Lymphocytes % (Manual) Seg Neutrophils # Seg Neutrophils # Man Lymphocytes # (Manual) PT INR POC ABG pH POC ABG pCO2 POC ABG pO2 Sodium Potassium Chloride Carbon Dioxide BUN Creatinine Glucose POC Glucose 137 H 129 H 122 H Calcium Magnesium AST Total Creatine Kinase CK-MB (CK-2) Troponin T NT-Pro-B Natriuret Pep Total Protein Albumin HDL Cholesterol 01/17/19 01/17/19 01/17/19 02:18 04:23 05:13 WBC RBC Hgb Hct MCV RDW Plt Count Lymph % (Auto) [place] % (Auto) Lymph # Seg Neutrophils % Seg Neuts % (Manual) Lymphocytes % (Manual) Seg Neutrophils # Seg Neutrophils # Man Lymphocytes # (Manual) PT INR POC ABG pH 7.479 H POC ABG pCO2 30.0 L POC ABG pO2 141 H Sodium Potassium Chloride Carbon Dioxide BUN Creatinine Glucose POC Glucose 139 H 128 H Calcium Magnesium AST Total Creatine Kinase CK-MB (CK-2) Troponin T NT-Pro-B Natriuret Pep Total Protein Albumin HDL Cholesterol 01/17/19 01/17/19 01/17/19 10:22 15:59 18:45 WBC RBC Hgb Hct MCV RDW Plt Count Lymph % (Auto) [place] % (Auto) Lymph # Seg Neutrophils % Seg Neuts % (Manual) Lymphocytes % (Manual) Seg Neutrophils # Seg Neutrophils # Man Lymphocytes # (Manual) PT INR POC ABG pH POC ABG pCO2 POC ABG pO2 Sodium Potassium Chloride Carbon Dioxide BUN Creatinine Glucose POC Glucose 133 H 121 H 106 H Calcium Magnesium AST Total Creatine Kinase CK-MB (CK-2) Troponin T NT-Pro-B Natriuret Pep Total Protein Albumin HDL Cholesterol 01/17/19 01/18/19 01/18/19 23:35 04:21 04:21 WBC RBC 3.27 L Hgb 9.6 L Hct 29.9 L MCV RDW Plt Count 79 L Lymph % (Auto) 6.0 L [place] % (Auto) Lymph # 0.5 L Seg Neutrophils % 89.2 H Seg Neuts % (Manual) Lymphocytes % (Manual) Seg Neutrophils # 8.1 H Seg Neutrophils # Man Lymphocytes # (Manual) PT INR POC ABG pH POC ABG pCO2 POC ABG pO2 Sodium Potassium Chloride Carbon Dioxide BUN 28 H Creatinine 1.3 H Glucose 129 H POC Glucose 121 H Calcium Magnesium AST 120 H Total Creatine Kinase CK-MB (CK-2) Troponin T NT-Pro-B Natriuret Pep Total Protein 5.1 L Albumin 3.0 L HDL Cholesterol 01/18/19 01/18/19 01/18/19 04:21 04:36 05:43 WBC RBC Hgb Hct MCV RDW Plt Count Lymph % (Auto) [place] % (Auto) Lymph # Seg Neutrophils % Seg Neuts % (Manual) Lymphocytes % (Manual) Seg Neutrophils # Seg Neutrophils # Man Lymphocytes # (Manual) PT INR POC ABG pH 7.485 H POC ABG pCO2 31.0 L POC ABG pO2 126 H Sodium Potassium Chloride Carbon Dioxide BUN 28 H Creatinine 1.3 H Glucose 128 H POC Glucose 142 H Calcium Magnesium AST Total Creatine Kinase CK-MB (CK-2) Troponin T NT-Pro-B Natriuret Pep Total Protein Albumin HDL Cholesterol 01/18/19 01/18/19 01/18/19 12:04 18:16 20:47 WBC RBC Hgb Hct MCV RDW Plt Count Lymph % (Auto) [place] % (Auto) Lymph # Seg Neutrophils % Seg Neuts % (Manual) Lymphocytes % (Manual) Seg Neutrophils # Seg Neutrophils # Man Lymphocytes # (Manual) PT INR POC ABG pH 7.489 H POC ABG pCO2 32.8 L POC ABG pO2 Sodium Potassium Chloride Carbon Dioxide BUN Creatinine Glucose POC Glucose 113 H 119 H Calcium Magnesium AST Total Creatine Kinase CK-MB (CK-2) Troponin T NT-Pro-B Natriuret Pep Total Protein Albumin HDL Cholesterol 01/19/19 01/19/19 01/19/19 00:40 05:35 11:39 WBC RBC Hgb Hct MCV RDW Plt Count Lymph % (Auto) [place] % (Auto) Lymph # Seg Neutrophils % Seg Neuts % (Manual) Lymphocytes % (Manual) Seg Neutrophils # Seg Neutrophils # Man Lymphocytes # (Manual) PT INR POC ABG pH POC ABG pCO2 POC ABG pO2 Sodium Potassium Chloride Carbon Dioxide BUN Creatinine Glucose POC Glucose 137 H 157 H 155 H Calcium Magnesium AST Total Creatine Kinase CK-MB (CK-2) Troponin T NT-Pro-B Natriuret Pep Total Protein Albumin HDL Cholesterol 01/19/19 01/19/19 01/19/19 18:24 21:08 23:33 WBC RBC Hgb Hct MCV RDW Plt Count Lymph % (Auto) [place] % (Auto) Lymph # Seg Neutrophils % Seg Neuts % (Manual) Lymphocytes % (Manual) Seg Neutrophils # Seg Neutrophils # Man Lymphocytes # (Manual) PT INR POC ABG pH 7.508 H POC ABG pCO2 34.2 L POC ABG pO2 Sodium Potassium Chloride Carbon Dioxide BUN Creatinine Glucose POC Glucose 145 H 156 H Calcium Magnesium AST Total Creatine Kinase CK-MB (CK-2) Troponin T NT-Pro-B Natriuret Pep Total Protein Albumin HDL Cholesterol 01/20/19 01/20/19 01/20/19 05:12 11:42 17:36 WBC RBC Hgb Hct MCV RDW Plt Count Lymph % (Auto) [place] % (Auto) Lymph # Seg Neutrophils % Seg Neuts % (Manual) Lymphocytes % (Manual) Seg Neutrophils # Seg Neutrophils # Man Lymphocytes # (Manual) PT INR POC ABG pH POC ABG pCO2 POC ABG pO2 Sodium Potassium Chloride Carbon Dioxide BUN Creatinine Glucose POC Glucose 152 H 159 H 169 H Calcium Magnesium AST Total Creatine Kinase CK-MB (CK-2) Troponin T NT-Pro-B Natriuret Pep Total Protein Albumin HDL Cholesterol 01/20/19 01/21/19 01/21/19 23:29 05:30 05:34 WBC RBC Hgb Hct MCV RDW Plt Count Lymph % (Auto) [place] % (Auto) Lymph # Seg Neutrophils % Seg Neuts % (Manual) Lymphocytes % (Manual) Seg Neutrophils # Seg Neutrophils # Man Lymphocytes # (Manual) PT INR POC ABG pH 7.616 H POC ABG pCO2 POC ABG pO2 71 L Sodium Potassium Chloride Carbon Dioxide BUN Creatinine Glucose POC Glucose 139 H 138 H Calcium Magnesium AST Total Creatine Kinase CK-MB (CK-2) Troponin T NT-Pro-B Natriuret Pep Total Protein Albumin HDL Cholesterol 01/21/19 01/21/19 01/22/19 12:41 18:47 00:07 WBC RBC Hgb Hct MCV RDW Plt Count Lymph % (Auto) [place] % (Auto) Lymph # Seg Neutrophils % Seg Neuts % (Manual) Lymphocytes % (Manual) Seg Neutrophils # Seg Neutrophils # Man Lymphocytes # (Manual) PT INR POC ABG pH POC ABG pCO2 POC ABG pO2 Sodium Potassium Chloride Carbon Dioxide BUN Creatinine Glucose POC Glucose 154 H 174 H 163 H Calcium Magnesium AST Total Creatine Kinase CK-MB (CK-2) Troponin T NT-Pro-B Natriuret Pep Total Protein Albumin HDL Cholesterol 01/22/19 01/22/19 01/22/19 04:35 05:46 12:18 WBC RBC Hgb Hct MCV RDW Plt Count Lymph % (Auto) [place] % (Auto) Lymph # Seg Neutrophils % Seg Neuts % (Manual) Lymphocytes % (Manual) Seg Neutrophils # Seg Neutrophils # Man Lymphocytes # (Manual) PT INR POC ABG pH 7.522 H POC ABG pCO2 POC ABG pO2 Sodium Potassium Chloride Carbon Dioxide BUN Creatinine Glucose POC Glucose 159 H 137 H Calcium Magnesium AST Total Creatine Kinase CK-MB (CK-2) Troponin T NT-Pro-B Natriuret Pep Total Protein Albumin HDL Cholesterol 01/22/19 01/22/19 01/22/19 15:00 15:00 18:13 WBC RBC 2.92 L Hgb 8.4 L Hct 25.6 L MCV RDW Plt Count Lymph % (Auto) [place] % (Auto) Lymph # Seg Neutrophils % Seg Neuts % (Manual) Lymphocytes % (Manual) Seg Neutrophils # Seg Neutrophils # Man Lymphocytes # (Manual) PT INR POC ABG pH POC ABG pCO2 POC ABG pO2 Sodium Potassium Chloride 97.0 L Carbon Dioxide BUN 37 H Creatinine Glucose 162 H POC Glucose 159 H Calcium 8.2 L Magnesium AST Total Creatine Kinase CK-MB (CK-2) Troponin T NT-Pro-B Natriuret Pep Total Protein Albumin HDL Cholesterol 01/22/19 01/23/19 01/23/19 22:45 00:01 05:10 WBC RBC 2.92 L Hgb 8.5 L Hct 25.4 L MCV RDW Plt Count Lymph % (Auto) 6.3 L [place] % (Auto) Lymph # 0.6 L Seg Neutrophils % 86.3 H Seg Neuts % (Manual) Lymphocytes % (Manual) Seg Neutrophils # 8.9 H Seg Neutrophils # Man Lymphocytes # (Manual) PT INR POC ABG pH POC ABG pCO2 POC ABG pO2 Sodium Potassium Chloride Carbon Dioxide BUN Creatinine Glucose POC Glucose 178 H 155 H Calcium Magnesium AST Total Creatine Kinase CK-MB (CK-2) Troponin T NT-Pro-B Natriuret Pep Total Protein Albumin HDL Cholesterol 01/23/19 01/23/19 01/23/19 11:31 17:49 Unknown WBC RBC Hgb Hct MCV RDW Plt Count Lymph % (Auto) [place] % (Auto) Lymph # Seg Neutrophils % Seg Neuts % (Manual) Lymphocytes % (Manual) Seg Neutrophils # Seg Neutrophils # Man Lymphocytes # (Manual) PT INR POC ABG pH POC ABG pCO2 POC ABG pO2 Sodium Potassium Chloride 95.4 L Carbon Dioxide BUN 37 H Creatinine Glucose 144 H POC Glucose 161 H 142 H Calcium Magnesium AST 88 H Total Creatine Kinase CK-MB (CK-2) Troponin T NT-Pro-B Natriuret Pep Total Protein 6.0 L Albumin 2.9 L HDL Cholesterol 01/24/19 01/24/19 01/24/19 00:21 05:36 12:35 WBC RBC Hgb Hct MCV RDW Plt Count Lymph % (Auto) [place] % (Auto) Lymph # Seg Neutrophils % Seg Neuts % (Manual) Lymphocytes % (Manual) Seg Neutrophils # Seg Neutrophils # Man Lymphocytes # (Manual) PT INR POC ABG pH POC ABG pCO2 POC ABG pO2 Sodium Potassium Chloride Carbon Dioxide BUN Creatinine Glucose POC Glucose 163 H 147 H 263 H Calcium Magnesium AST Total Creatine Kinase CK-MB (CK-2) Troponin T NT-Pro-B Natriuret Pep Total Protein Albumin HDL Cholesterol 01/24/19 01/24/19 01/24/19 17:46 23:07 Unknown WBC RBC 2.90 L Hgb 8.3 L Hct 25.0 L MCV RDW Plt Count Lymph % (Auto) [place] % (Auto) Lymph # Seg Neutrophils % Seg Neuts % (Manual) Lymphocytes % (Manual) Seg Neutrophils # Seg Neutrophils # Man Lymphocytes # (Manual) PT INR POC ABG pH POC ABG pCO2 POC ABG pO2 Sodium Potassium Chloride Carbon Dioxide BUN Creatinine Glucose POC Glucose 161 H 167 H Calcium Magnesium AST Total Creatine Kinase CK-MB (CK-2) Troponin T NT-Pro-B Natriuret Pep Total Protein Albumin HDL Cholesterol 01/24/19 01/25/19 01/25/19 Unknown 05:15 05:15 WBC RBC 2.90 L Hgb 8.4 L Hct 25.2 L MCV RDW Plt Count Lymph % (Auto) [place] % (Auto) Lymph # Seg Neutrophils % Seg Neuts % (Manual) Lymphocytes % (Manual) Seg Neutrophils # Seg Neutrophils # Man Lymphocytes # (Manual) PT INR POC ABG pH POC ABG pCO2 POC ABG pO2 Sodium 134 L 135 L Potassium Chloride 94.4 L 94.0 L Carbon Dioxide BUN 35 H 35 H Creatinine Glucose 151 H 128 H POC Glucose Calcium Magnesium AST Total Creatine Kinase CK-MB (CK-2) Troponin T NT-Pro-B Natriuret Pep Total Protein Albumin HDL Cholesterol 01/25/19 01/25/19 01/25/19 05:15 05:35 11:09 WBC RBC Hgb Hct MCV RDW Plt Count Lymph % (Auto) [place] % (Auto) Lymph # Seg Neutrophils % Seg Neuts % (Manual) Lymphocytes % (Manual) Seg Neutrophils # Seg Neutrophils # Man Lymphocytes # (Manual) PT 18.8 H INR 1.47 H POC ABG pH POC ABG pCO2 POC ABG pO2 Sodium Potassium Chloride Carbon Dioxide BUN Creatinine Glucose POC Glucose 126 H 149 H Calcium Magnesium AST Total Creatine Kinase CK-MB (CK-2) Troponin T NT-Pro-B Natriuret Pep Total Protein Albumin HDL Cholesterol 01/25/19 01/25/19 01/26/19 17:24 23:41 00:09 WBC RBC Hgb Hct MCV RDW Plt Count Lymph % (Auto) [place] % (Auto) Lymph # Seg Neutrophils % Seg Neuts % (Manual) Lymphocytes % (Manual) Seg Neutrophils # Seg Neutrophils # Man Lymphocytes # (Manual) PT INR POC ABG pH POC ABG pCO2 POC ABG pO2 Sodium Potassium Chloride Carbon Dioxide BUN Creatinine Glucose POC Glucose 140 H 142 H 156 H Calcium Magnesium AST Total Creatine Kinase CK-MB (CK-2) Troponin T NT-Pro-B Natriuret Pep Total Protein Albumin HDL Cholesterol 01/26/19 01/26/19 01/26/19 05:05 06:35 06:35 WBC RBC 2.83 L Hgb 8.1 L Hct 24.4 L MCV RDW Plt Count Lymph % (Auto) [place] % (Auto) Lymph # Seg Neutrophils % Seg Neuts % (Manual) Lymphocytes % (Manual) Seg Neutrophils # Seg Neutrophils # Man Lymphocytes # (Manual) PT INR POC ABG pH POC ABG pCO2 POC ABG pO2 Sodium Potassium Chloride 96.9 L Carbon Dioxide BUN 29 H Creatinine Glucose 141 H POC Glucose 159 H Calcium 8.3 L Magnesium AST Total Creatine Kinase CK-MB (CK-2) Troponin T NT-Pro-B Natriuret Pep Total Protein Albumin HDL Cholesterol 01/26/19 01/26/19 01/27/19 13:16 19:10 00:08 WBC RBC Hgb Hct MCV RDW Plt Count Lymph % (Auto) [place] % (Auto) Lymph # Seg Neutrophils % Seg Neuts % (Manual) Lymphocytes % (Manual) Seg Neutrophils # Seg Neutrophils # Man Lymphocytes # (Manual) PT INR POC ABG pH POC ABG pCO2 POC ABG pO2 Sodium Potassium Chloride Carbon Dioxide BUN Creatinine Glucose POC Glucose 159 H 146 H 140 H Calcium Magnesium AST Total Creatine Kinase CK-MB (CK-2) Troponin T NT-Pro-B Natriuret Pep Total Protein Albumin HDL Cholesterol 01/27/19 01/27/19 01/27/19 03:30 03:30 06:23 WBC RBC 2.85 L Hgb 8.3 L Hct 24.8 L MCV RDW Plt Count Lymph % (Auto) [place] % (Auto) Lymph # Seg Neutrophils % Seg Neuts % (Manual) Lymphocytes % (Manual) Seg Neutrophils # Seg Neutrophils # Man Lymphocytes # (Manual) PT INR POC ABG pH POC ABG pCO2 POC ABG pO2 Sodium 136 L Potassium Chloride 97.1 L Carbon Dioxide BUN 26 H Creatinine Glucose 129 H POC Glucose 154 H Calcium Magnesium AST Total Creatine Kinase CK-MB (CK-2) Troponin T NT-Pro-B Natriuret Pep Total Protein Albumin HDL Cholesterol 01/27/19 01/27/19 01/27/19 12:47 17:43 23:31 WBC RBC Hgb Hct MCV RDW Plt Count Lymph % (Auto) [place] % (Auto) Lymph # Seg Neutrophils % Seg Neuts % (Manual) Lymphocytes % (Manual) Seg Neutrophils # Seg Neutrophils # Man Lymphocytes # (Manual) PT INR POC ABG pH POC ABG pCO2 POC ABG pO2 Sodium Potassium Chloride Carbon Dioxide BUN Creatinine Glucose POC Glucose 159 H 180 H 164 H Calcium Magnesium AST Total Creatine Kinase CK-MB (CK-2) Troponin T NT-Pro-B Natriuret Pep Total Protein Albumin HDL Cholesterol 01/28/19 01/28/19 01/28/19 04:35 12:01 12:01 WBC RBC 2.67 L Hgb 7.9 L Hct 22.9 L MCV RDW Plt Count Lymph % (Auto) [place] % (Auto) Lymph # Seg Neutrophils % Seg Neuts % (Manual) Lymphocytes % (Manual) Seg Neutrophils # Seg Neutrophils # Man Lymphocytes # (Manual) PT INR POC ABG pH POC ABG pCO2 POC ABG pO2 Sodium 136 L Potassium 3.5 L Chloride Carbon Dioxide BUN 18 H Creatinine Glucose 143 H POC Glucose 139 H Calcium 8.0 L Magnesium AST Total Creatine Kinase CK-MB (CK-2) Troponin T NT-Pro-B Natriuret Pep Total Protein Albumin HDL Cholesterol 01/28/19 01/28/19 01/28/19 12:04 16:59 17:11 WBC RBC Hgb Hct MCV RDW Plt Count Lymph % (Auto) [place] % (Auto) Lymph # Seg Neutrophils % Seg Neuts % (Manual) Lymphocytes % (Manual) Seg Neutrophils # Seg Neutrophils # Man Lymphocytes # (Manual) PT INR POC ABG pH 7.488 H POC ABG pCO2 34.1 L POC ABG pO2 Sodium Potassium Chloride Carbon Dioxide BUN Creatinine Glucose POC Glucose 143 H 163 H Calcium Magnesium AST Total Creatine Kinase CK-MB (CK-2) Troponin T NT-Pro-B Natriuret Pep Total Protein Albumin HDL Cholesterol 01/29/19 01/29/19 01/29/19 00:10 05:47 12:08 WBC RBC Hgb Hct MCV RDW Plt Count Lymph % (Auto) [place] % (Auto) Lymph # Seg Neutrophils % Seg Neuts % (Manual) Lymphocytes % (Manual) Seg Neutrophils # Seg Neutrophils # Man Lymphocytes # (Manual) PT INR POC ABG pH POC ABG pCO2 POC ABG pO2 Sodium Potassium Chloride Carbon Dioxide BUN Creatinine Glucose POC Glucose 171 H 187 H 137 H Calcium Magnesium AST Total Creatine Kinase CK-MB (CK-2) Troponin T NT-Pro-B Natriuret Pep Total Protein Albumin HDL Cholesterol 01/29/19 01/29/19 01/29/19 16:48 16:54 17:47 WBC RBC Hgb Hct MCV RDW Plt Count Lymph % (Auto) [place] % (Auto) Lymph # Seg Neutrophils % Seg Neuts % (Manual) Lymphocytes % (Manual) Seg Neutrophils # Seg Neutrophils # Man Lymphocytes # (Manual) PT INR POC ABG pH 7.486 H 7.512 H POC ABG pCO2 32.8 L 32.7 L POC ABG pO2 108 H Sodium Potassium Chloride Carbon Dioxide BUN Creatinine Glucose POC Glucose 156 H Calcium Magnesium AST Total Creatine Kinase CK-MB (CK-2) Troponin T NT-Pro-B Natriuret Pep Total Protein Albumin HDL Cholesterol 01/29/19 01/30/19 01/30/19 23:48 06:45 07:18 WBC RBC 2.94 L Hgb 8.6 L Hct 25.7 L MCV RDW Plt Count Lymph % (Auto) [place] % (Auto) Lymph # Seg Neutrophils % Seg Neuts % (Manual) Lymphocytes % (Manual) Seg Neutrophils # Seg Neutrophils # Man Lymphocytes # (Manual) PT INR POC ABG pH POC ABG pCO2 POC ABG pO2 Sodium 135 L Potassium Chloride Carbon Dioxide BUN Creatinine Glucose 141 H POC Glucose 185 H Calcium 8.3 L Magnesium AST Total Creatine Kinase CK-MB (CK-2) Troponin T NT-Pro-B Natriuret Pep Total Protein Albumin HDL Cholesterol 01/30/19 01/30/19 01/30/19 11:17 16:47 18:16 WBC RBC Hgb Hct MCV RDW Plt Count Lymph % (Auto) [place] % (Auto) Lymph # Seg Neutrophils % Seg Neuts % (Manual) Lymphocytes % (Manual) Seg Neutrophils # Seg Neutrophils # Man Lymphocytes # (Manual) PT INR POC ABG pH 7.508 H POC ABG pCO2 31.5 L POC ABG pO2 135 H Sodium Potassium Chloride Carbon Dioxide BUN Creatinine Glucose POC Glucose 170 H 108 H Calcium Magnesium AST Total Creatine Kinase CK-MB (CK-2) Troponin T NT-Pro-B Natriuret Pep Total Protein Albumin HDL Cholesterol 01/30/19 01/31/19 01/31/19 23:38 05:45 12:04 WBC RBC Hgb Hct MCV RDW Plt Count Lymph % (Auto) [place] % (Auto) Lymph # Seg Neutrophils % Seg Neuts % (Manual) Lymphocytes % (Manual) Seg Neutrophils # Seg Neutrophils # Man Lymphocytes # (Manual) PT INR POC ABG pH POC ABG pCO2 POC ABG pO2 Sodium Potassium Chloride Carbon Dioxide BUN Creatinine Glucose POC Glucose 146 H 121 H 152 H Calcium Magnesium AST Total Creatine Kinase CK-MB (CK-2) Troponin T NT-Pro-B Natriuret Pep Total Protein Albumin HDL Cholesterol 01/31/19 01/31/19 02/01/19 17:44 23:58 05:46 WBC RBC Hgb Hct MCV RDW Plt Count Lymph % (Auto) [place] % (Auto) Lymph # Seg Neutrophils % Seg Neuts % (Manual) Lymphocytes % (Manual) Seg Neutrophils # Seg Neutrophils # Man Lymphocytes # (Manual) PT INR POC ABG pH POC ABG pCO2 POC ABG pO2 Sodium Potassium Chloride Carbon Dioxide BUN Creatinine Glucose POC Glucose 153 H 183 H 116 H Calcium Magnesium AST Total Creatine Kinase CK-MB (CK-2) Troponin T NT-Pro-B Natriuret Pep Total Protein Albumin HDL Cholesterol 02/01/19 02/01/19 02/01/19 11:10 12:18 17:48 WBC RBC Hgb Hct MCV RDW Plt Count Lymph % (Auto) [place] % (Auto) Lymph # Seg Neutrophils % Seg Neuts % (Manual) Lymphocytes % (Manual) Seg Neutrophils # Seg Neutrophils # Man Lymphocytes # (Manual) PT INR POC ABG pH POC ABG pCO2 POC ABG pO2 Sodium 133 L Potassium 3.3 L Chloride 96.1 L Carbon Dioxide BUN Creatinine Glucose 145 H POC Glucose 175 H 129 H Calcium 8.3 L Magnesium AST Total Creatine Kinase CK-MB (CK-2) Troponin T NT-Pro-B Natriuret Pep Total Protein Albumin HDL Cholesterol 02/01/19 02/02/19 02/02/19 23:13 05:16 06:00 WBC RBC Hgb Hct MCV RDW Plt Count Lymph % (Auto) [place] % (Auto) Lymph # Seg Neutrophils % Seg Neuts % (Manual) Lymphocytes % (Manual) Seg Neutrophils # Seg Neutrophils # Man Lymphocytes # (Manual) PT INR POC ABG pH POC ABG pCO2 POC ABG pO2 Sodium 135 L Potassium Chloride Carbon Dioxide BUN 18 H Creatinine Glucose 121 H POC Glucose 143 H 140 H Calcium 8.3 L Magnesium 1.60 L AST Total Creatine Kinase CK-MB (CK-2) Troponin T NT-Pro-B Natriuret Pep Total Protein Albumin HDL Cholesterol 02/02/19 02/02/19 02/02/19 12:06 18:23 23:45 WBC RBC Hgb Hct MCV RDW Plt Count Lymph % (Auto) [place] % (Auto) Lymph # Seg Neutrophils % Seg Neuts % (Manual) Lymphocytes % (Manual) Seg Neutrophils # Seg Neutrophils # Man Lymphocytes # (Manual) PT INR POC ABG pH POC ABG pCO2 POC ABG pO2 Sodium Potassium Chloride Carbon Dioxide BUN Creatinine Glucose POC Glucose 156 H 159 H 139 H Calcium Magnesium AST Total Creatine Kinase CK-MB (CK-2) Troponin T NT-Pro-B Natriuret Pep Total Protein Albumin HDL Cholesterol 02/03/19 02/03/19 02/03/19 05: 12:02 17:24 WBC RBC Hgb Hct MCV RDW Plt Count Lymph % (Auto) [place] % (Auto) Lymph # Seg Neutrophils % Seg Neuts % (Manual) Lymphocytes % (Manual) Seg Neutrophils # Seg Neutrophils # Man Lymphocytes # (Manual) PT INR POC ABG pH POC ABG pCO2 POC ABG pO2 Sodium Potassium Chloride Carbon Dioxide BUN Creatinine Glucose POC Glucose 147 H 163 H 144 H Calcium Magnesium AST Total Creatine Kinase CK-MB (CK-2) Troponin T NT-Pro-B Natriuret Pep Total Protein Albumin HDL Cholesterol 02/03/19 02/04/19 02/04/19 23:43 05:30 11:14 WBC RBC 3.00 L Hgb 8.7 L Hct 25.9 L MCV RDW Plt Count Lymph % (Auto) 11.5 L [place] % (Auto) 7.5 H Lymph # 0.8 L Seg Neutrophils % 79.6 H Seg Neuts % (Manual) Lymphocytes % (Manual) Seg Neutrophils # Seg Neutrophils # Man Lymphocytes # (Manual) PT INR POC ABG pH POC ABG pCO2 POC ABG pO2 Sodium Potassium Chloride Carbon Dioxide BUN Creatinine Glucose POC Glucose 131 H 145 H Calcium Magnesium AST Total Creatine Kinase CK-MB (CK-2) Troponin T NT-Pro-B Natriuret Pep Total Protein Albumin HDL Cholesterol 02/04/19 02/04/19 02/04/19 11:14 12:09 17:37 WBC RBC Hgb Hct MCV RDW Plt Count Lymph % (Auto) [place] % (Auto) Lymph # Seg Neutrophils % Seg Neuts % (Manual) Lymphocytes % (Manual) Seg Neutrophils # Seg Neutrophils # Man Lymphocytes # (Manual) PT INR POC ABG pH POC ABG pCO2 POC ABG pO2 Sodium Potassium Chloride 96.5 L Carbon Dioxide BUN 30 H Creatinine Glucose 142 H POC Glucose 149 H 170 H Calcium Magnesium AST Total Creatine Kinase CK-MB (CK-2) Troponin T NT-Pro-B Natriuret Pep Total Protein Albumin HDL Cholesterol 02/04/19 02/05/19 02/05/19 23:33 04:27 04:27 WBC RBC 3.61 L Hgb Hct MCV RDW Plt Count Lymph % (Auto) 12.3 L [place] % (Auto) Lymph # 0.9 L Seg Neutrophils % 79.1 H Seg Neuts % (Manual) Lymphocytes % (Manual) Seg Neutrophils # Seg Neutrophils # Man Lymphocytes # (Manual) PT INR POC ABG pH POC ABG pCO2 POC ABG pO2 Sodium Potassium Chloride 96.0 L Carbon Dioxide BUN 26 H Creatinine Glucose 118 H POC Glucose 182 H Calcium Magnesium AST Total Creatine Kinase CK-MB (CK-2) Troponin T NT-Pro-B Natriuret Pep Total Protein Albumin HDL Cholesterol 02/05/19 02/05/19 02/05/19 05:51 12:37 23:56 WBC RBC Hgb Hct MCV RDW Plt Count Lymph % (Auto) [place] % (Auto) Lymph # Seg Neutrophils % Seg Neuts % (Manual) Lymphocytes % (Manual) Seg Neutrophils # Seg Neutrophils # Man Lymphocytes # (Manual) PT INR POC ABG pH POC ABG pCO2 POC ABG pO2 Sodium Potassium Chloride Carbon Dioxide BUN Creatinine Glucose POC Glucose 162 H 147 H 167 H Calcium Magnesium AST Total Creatine Kinase CK-MB (CK-2) Troponin T NT-Pro-B Natriuret Pep Total Protein Albumin HDL Cholesterol 02/06/19 02/06/19 02/06/19 05:33 12:02 16:42 WBC RBC Hgb Hct MCV RDW Plt Count Lymph % (Auto) [place] % (Auto) Lymph # Seg Neutrophils % Seg Neuts % (Manual) Lymphocytes % (Manual) Seg Neutrophils # Seg Neutrophils # Man Lymphocytes # (Manual) PT INR POC ABG pH POC ABG pCO2 POC ABG pO2 Sodium Potassium Chloride Carbon Dioxide BUN Creatinine Glucose POC Glucose 124 H 156 H 125 H Calcium Magnesium AST Total Creatine Kinase CK-MB (CK-2) Troponin T NT-Pro-B Natriuret Pep Total Protein Albumin HDL Cholesterol 02/07/19 02/07/19 02/07/19 00:21 05:46 11:28 WBC RBC Hgb Hct MCV RDW Plt Count Lymph % (Auto) [place] % (Auto) Lymph # Seg Neutrophils % Seg Neuts % (Manual) Lymphocytes % (Manual) Seg Neutrophils # Seg Neutrophils # Man Lymphocytes # (Manual) PT INR POC ABG pH POC ABG pCO2 POC ABG pO2 Sodium Potassium Chloride Carbon Dioxide BUN Creatinine Glucose POC Glucose 206 H 153 H 200 H Calcium Magnesium AST Total Creatine Kinase CK-MB (CK-2) Troponin T NT-Pro-B Natriuret Pep Total Protein Albumin HDL Cholesterol 02/07/19 02/08/19 02/08/19 18:48 00:08 05:29 WBC RBC Hgb Hct MCV RDW Plt Count Lymph % (Auto) [place] % (Auto) Lymph # Seg Neutrophils % Seg Neuts % (Manual) Lymphocytes % (Manual) Seg Neutrophils # Seg Neutrophils # Man Lymphocytes # (Manual) PT INR POC ABG pH POC ABG pCO2 POC ABG pO2 Sodium Potassium Chloride Carbon Dioxide BUN Creatinine Glucose POC Glucose 185 H 174 H 148 H Calcium Magnesium AST Total Creatine Kinase CK-MB (CK-2) Troponin T NT-Pro-B Natriuret Pep Total Protein Albumin HDL Cholesterol 02/08/19 02/08/19 02/08/19 07:00 07:00 11:45 WBC RBC 3.12 L Hgb 8.9 L Hct 26.7 L MCV RDW Plt Count Lymph % (Auto) 9.5 L [place] % (Auto) Lymph # 0.9 L Seg Neutrophils % 84.5 H Seg Neuts % (Manual) Lymphocytes % (Manual) Seg Neutrophils # 8.1 H Seg Neutrophils # Man Lymphocytes # (Manual) PT INR POC ABG pH POC ABG pCO2 POC ABG pO2 Sodium 135 L Potassium Chloride 91.1 L Carbon Dioxide 33 H BUN 44 H Creatinine Glucose 166 H POC Glucose 166 H Calcium Magnesium AST Total Creatine Kinase CK-MB (CK-2) Troponin T NT-Pro-B Natriuret Pep Total Protein Albumin HDL Cholesterol 02/09/19 02/09/19 02/09/19 01:31 05:44 10:48 WBC RBC Hgb Hct MCV RDW Plt Count Lymph % (Auto) [place] % (Auto) Lymph # Seg Neutrophils % Seg Neuts % (Manual) Lymphocytes % (Manual) Seg Neutrophils # Seg Neutrophils # Man Lymphocytes # (Manual) PT INR POC ABG pH POC ABG pCO2 POC ABG pO2 Sodium Potassium Chloride Carbon Dioxide BUN Creatinine Glucose POC Glucose 215 H 146 H 151 H Calcium Magnesium AST Total Creatine Kinase CK-MB (CK-2) Troponin T NT-Pro-B Natriuret Pep Total Protein Albumin HDL Cholesterol 02/09/19 02/09/19 02/10/19 15:35 21:21 01:00 WBC RBC Hgb Hct MCV RDW Plt Count Lymph % (Auto) [place] % (Auto) Lymph # Seg Neutrophils % Seg Neuts % (Manual) Lymphocytes % (Manual) Seg Neutrophils # Seg Neutrophils # Man Lymphocytes # (Manual) PT INR POC ABG pH POC ABG pCO2 POC ABG pO2 Sodium Potassium Chloride Carbon Dioxide BUN Creatinine Glucose POC Glucose 139 H 153 H 183 H Calcium Magnesium AST Total Creatine Kinase CK-MB (CK-2) Troponin T NT-Pro-B Natriuret Pep Total Protein Albumin HDL Cholesterol 02/10/19 02/10/19 02/10/19 05:27 06:54 11:46 WBC RBC Hgb Hct MCV RDW Plt Count Lymph % (Auto) [place] % (Auto) Lymph # Seg Neutrophils % Seg Neuts % (Manual) Lymphocytes % (Manual) Seg Neutrophils # Seg Neutrophils # Man Lymphocytes # (Manual) PT INR POC ABG pH POC ABG pCO2 POC ABG pO2 Sodium Potassium Chloride Carbon Dioxide BUN Creatinine Glucose POC Glucose 155 H 135 H 165 H Calcium Magnesium AST Total Creatine Kinase CK-MB (CK-2) Troponin T NT-Pro-B Natriuret Pep Total Protein Albumin HDL Cholesterol 02/10/19 02/10/19 02/11/19 17:59 22:07 07:07 WBC RBC Hgb Hct MCV RDW Plt Count Lymph % (Auto) [place] % (Auto) Lymph # Seg Neutrophils % Seg Neuts % (Manual) Lymphocytes % (Manual) Seg Neutrophils # Seg Neutrophils # Man Lymphocytes # (Manual) PT INR POC ABG pH POC ABG pCO2 POC ABG pO2 Sodium Potassium Chloride Carbon Dioxide BUN Creatinine Glucose POC Glucose 110 H 154 H 175 H Calcium Magnesium AST Total Creatine Kinase CK-MB (CK-2) Troponin T NT-Pro-B Natriuret Pep Total Protein Albumin HDL Cholesterol 02/11/19 02/11/19 02/12/19 11:49 17:00 01:20 WBC RBC Hgb Hct MCV RDW Plt Count Lymph % (Auto) [place] % (Auto) Lymph # Seg Neutrophils % Seg Neuts % (Manual) Lymphocytes % (Manual) Seg Neutrophils # Seg Neutrophils # Man Lymphocytes # (Manual) PT INR POC ABG pH POC ABG pCO2 POC ABG pO2 Sodium Potassium Chloride Carbon Dioxide BUN Creatinine Glucose POC Glucose 172 H 179 H 182 H Calcium Magnesium AST Total Creatine Kinase CK-MB (CK-2) Troponin T NT-Pro-B Natriuret Pep Total Protein Albumin HDL Cholesterol 02/12/19 02/12/19 02/12/19 06:00 06:00 11:53 WBC RBC 2.61 L Hgb 7.5 L Hct 22.3 L MCV RDW Plt Count 133 L Lymph % (Auto) [place] % (Auto) Lymph # Seg Neutrophils % Seg Neuts % (Manual) Lymphocytes % (Manual) Seg Neutrophils # Seg Neutrophils # Man Lymphocytes # (Manual) PT INR POC ABG pH POC ABG pCO2 POC ABG pO2 Sodium Potassium Chloride 96.3 L Carbon Dioxide 33 H BUN 58 H Creatinine Glucose 157 H POC Glucose 176 H Calcium Magnesium AST 49 H Total Creatine Kinase CK-MB (CK-2) Troponin T NT-Pro-B Natriuret Pep Total Protein Albumin 2.9 L HDL Cholesterol 02/12/19 16:46 WBC RBC Hgb Hct MCV RDW Plt Count Lymph % (Auto) [place] % (Auto) Lymph # Seg Neutrophils % Seg Neuts % (Manual) Lymphocytes % (Manual) Seg Neutrophils # Seg Neutrophils # Man Lymphocytes # (Manual) PT INR POC ABG pH POC ABG pCO2 POC ABG pO2 Sodium Potassium Chloride Carbon Dioxide BUN Creatinine Glucose POC Glucose 226 H Calcium Magnesium AST Total Creatine Kinase CK-MB (CK-2) Troponin T NT-Pro-B Natriuret Pep Total Protein Albumin HDL Cholesterol Allied health notes reviewed: nursing
[2019-02-12] MEDS: SODIUM CHLORIDE FLUSH SYRINGE 10 ML IV PRN (22:49)
[2019-02-12] MEDS: TRANSDERM-SCOP TD SCH (23:25)
[2019-02-13] MEDS: HumaLOG SUB-Q SCH ×4 (00:49→18:32)
[2019-02-13] MEDS: DUONEB *Not for PRN Use IH SCH ×3 (01:56→14:00)
[2019-02-13] MEDS: LASIX PO SCH ×2 (06:23→18:33)
[2019-02-13] MEDS: REGLAN IV SCH ×2 (06:24→13:56)
--- NOTE | 2019-02-13 08:49 | Progress Note ---
Assessment and Plan Patient resting on T Tube. FiO2 28%. O2 saturation 100%. Patient not responding to verbal stimuli. No acute respiratory distress. Patient afebrile, no leukocytosis - Patient Problems (1) COPD (chronic obstructive pulmonary disease) with emphysema Current Visit: Yes Status: Acute Plan to address problem: 1. s/p tracheostomy on T tube FiO2 28% 2. Albuterol and atrovent aerosol treatment q6 hrs 3. Respiratory suctioning 4. Continue Lovenox 5. Patient is on Reglan (2) Acute respiratory failure with hypoxia Current Visit: Yes Status: Acute Plan to address problem: 1. s/p tracheostomy on T tube FiO2 28% 2. Albuterol and atrovent aerosol treatment q6 hrs 3. Respiratory suctioning 4. Continue Lovenox 5. Patient is on Reglan (3) Status post tracheostomy Current Visit: Yes Status: Acute Plan to address problem: Continue trach care. (4) Pulmonary infiltrates on CXR Current Visit: Yes Status: Acute Plan to address problem: Patient afebrile. No leukocytosis. Recommend respiratory suctioning. Continue aerosolized bronchodilators. If patient becomes febrile or develops leukocytosis recommend IV antibiotics. (5) CHF (congestive heart failure) Current Visit: Yes Status: Acute Plan to address problem: Management per cardiology. (6) Altered mental status Current Visit: Yes Status: Acute Plan to address problem: Management as per primary care. (7) CAD S/P percutaneous coronary angioplasty Current Visit: Yes Status: Chronic Plan to address problem: Managment per cardiology. (8) CKD (chronic kidney disease) Current Visit: Yes Status: Chronic Plan to address problem: Management per nephrology. Subjective Date of service: 02/13/19 Principal diagnosis: OOH cardiac arrest; Acute hypoxemic-hypercapnic Resp failure; PNA Interval history: Patient resting on T Tube. FiO2 28%. O2 saturation 100%. Patient not responding to verbal stimuli. No acute respiratory distress. Patient afebrile, no leukocytosis. Objective Vital Signs - 12hr 02/12/19 02/12/19 02/12/19 21:01 21:02 21:20 Temperature Pulse Rate Pulse Rate [ 93 H 97 H Anterior Bilateral Throughout] Respiratory Rate Respiratory 20 24 Rate [Anterior Bilateral Throughout] Blood Pressure O2 Sat by Pulse 98 Oximetry O2 Sat by Pulse Oximetry [ Assessment] 02/12/19 02/12/19 02/13/19 22:30 22:48 00:00 Temperature Pulse Rate 90 Pulse Rate [ Anterior Bilateral Throughout] Respiratory 20 Rate Respiratory Rate [Anterior Bilateral Throughout] Blood Pressure 108/61 O2 Sat by Pulse 100 Oximetry O2 Sat by Pulse 99 Oximetry [ Assessment] 02/13/19 02/13/19 02/13/19 01:59 02:20 02:36 Temperature 98.0 F Pulse Rate 96 H Pulse Rate [ 96 H 98 H Anterior Bilateral Throughout] Respiratory 18 Rate Respiratory 29 H 26 H Rate [Anterior Bilateral Throughout] Blood Pressure 99/52 O2 Sat by Pulse 95 Oximetry O2 Sat by Pulse Oximetry [ Assessment] 02/13/19 02/13/19 02/13/19 07:42 07:43 07:46 Temperature Pulse Rate Pulse Rate [ 95 H 94 H Anterior Bilateral Throughout] Respiratory Rate Respiratory 17 19 Rate [Anterior Bilateral Throughout] Blood Pressure O2 Sat by Pulse 99 Oximetry O2 Sat by Pulse Oximetry [ Assessment] 02/13/19 07:59 Temperature 99.5 F Pulse Rate 97 H Pulse Rate [ Anterior Bilateral Throughout] Respiratory 18 Rate Respiratory Rate [Anterior Bilateral Throughout] Blood Pressure 106/72 O2 Sat by Pulse 100 Oximetry O2 Sat by Pulse Oximetry [ Assessment] Constitutional: no acute distress, asleep, other (elderly, atraumatic, normocephalic, chronically looking female) Eyes: non-icteric ENT: oropharynx moist, other (s/p tracheostomy) Neck: supple, no lymphadenopathy, no JVD Effort: normal Ascultation: Bilateral: diminished breath sounds, rales (bases), rhonchi (scant), other (coarse breath sound bilaterally upper lobes anteriorly) Percussion: Bilateral: not dull Cardiovascular: regular rate and rhythm, other (tacycardia, S1,S2, no murmurs, gallops or rubs) Gastrointestinal: normoactive bowel sounds, soft, non-tender, non-distended, other (PEG in place) Integumentary: normal Extremities: no cyanosis, no edema, pulses normal, no ischemia or petechiae Neurologic: unable to assess Psychiatric: other (unable to assess secondary to mental status) CBC and BMP: 02/12/19 06:00 02/12/19 06:00 ABG, PT/INR, D-dimer: ABG POC ABG pH 7.508 (7.35-7.45) H 01/30/19 16:47 POC ABG pCO2 31.5 (35-45) L 01/30/19 16:47 POC ABG pO2 135 (80-105) H 01/30/19 16:47 POC ABG HCO3 25.0 (22-26 mml/L) 01/30/19 16:47 POC ABG Total CO2 26 (23-27mmol/L) 01/30/19 16:47 POC ABG O2 Sat 99 01/30/19 16:47 PT/INR, D-dimer PT 18.8 Sec. (12.2-14.9) H 01/25/19 05:15 INR 1.47 (0.87-1.13) H 01/25/19 05:15 Abnormal lab findings: Abnormal Labs 01/15/19 01/15/19 01/15/19 07:50 07:50 07:50 WBC RBC Hgb Hct MCV 99 H RDW 16.7 H Plt Count 122 L Lymph % (Auto) Casey % (Auto) Lymph # Seg Neutrophils % Seg Neuts % (Manual) Lymphocytes % (Manual) Seg Neutrophils # Seg Neutrophils # Man Lymphocytes # (Manual) PT 19.7 H INR 1.56 H POC ABG pH POC ABG pCO2 POC ABG pO2 Sodium Potassium Chloride Carbon Dioxide 11 L BUN Creatinine 1.4 H Glucose 268 H POC Glucose Calcium Magnesium AST 57 H Total Creatine Kinase CK-MB (CK-2) Troponin T NT-Pro-B Natriuret Pep 5346 H Total Protein Albumin 3.6 L HDL Cholesterol 01/15/19 01/15/19 01/15/19 09:56 11:53 17:52 WBC RBC Hgb Hct MCV RDW Plt Count Lymph % (Auto) Casey % (Auto) Lymph # Seg Neutrophils % Seg Neuts % (Manual) Lymphocytes % (Manual) Seg Neutrophils # Seg Neutrophils # Man Lymphocytes # (Manual) PT INR POC ABG pH 7.186 L POC ABG pCO2 46.4 H POC ABG pO2 Sodium Potassium Chloride Carbon Dioxide BUN Creatinine Glucose POC Glucose Calcium Magnesium AST Total Creatine Kinase 683 H 1430 H CK-MB (CK-2) 9.5 H 13.5 H Troponin T 0.036 H D NT-Pro-B Natriuret Pep Total Protein Albumin HDL Cholesterol 65 H 01/15/19 01/15/19 01/16/19 18:31 21:46 02:14 WBC RBC Hgb Hct MCV RDW Plt Count Lymph % (Auto) [place] % (Auto) Lymph # Seg Neutrophils % Seg Neuts % (Manual) Lymphocytes % (Manual) Seg Neutrophils # Seg Neutrophils # Man Lymphocytes # (Manual) PT INR POC ABG pH POC ABG pCO2 31.8 L POC ABG pO2 167 H Sodium Potassium Chloride Carbon Dioxide BUN Creatinine Glucose POC Glucose 134 H 136 H Calcium Magnesium AST Total Creatine Kinase CK-MB (CK-2) Troponin T NT-Pro-B Natriuret Pep Total Protein Albumin HDL Cholesterol 01/16/19 01/16/19 01/16/19 04:16 04:16 05:05 WBC 11.4 H RBC Hgb Hct MCV RDW Plt Count 105 L Lymph % (Auto) Casey % (Auto) Lymph # Seg Neutrophils % Seg Neuts % (Manual) 74.0 H Lymphocytes % (Manual) 2.0 L Seg Neutrophils # Seg Neutrophils # Man 8.4 H Lymphocytes # (Manual) 0.2 L PT INR POC ABG pH 7.458 H POC ABG pCO2 31.4 L POC ABG pO2 135 H Sodium Potassium 3.3 L Chloride Carbon Dioxide 21 L D BUN 24 H Creatinine 1.5 H Glucose 141 H POC Glucose Calcium 8.1 L Magnesium AST 71 H Total Creatine Kinase CK-MB (CK-2) Troponin T NT-Pro-B Natriuret Pep Total Protein 6.2 L Albumin 3.5 L HDL Cholesterol 01/16/19 01/16/19 01/16/19 05:24 13:42 21:08 WBC RBC Hgb Hct MCV RDW Plt Count Lymph % (Auto) [place] % (Auto) Lymph # Seg Neutrophils % Seg Neuts % (Manual) Lymphocytes % (Manual) Seg Neutrophils # Seg Neutrophils # Man Lymphocytes # (Manual) PT INR POC ABG pH POC ABG pCO2 POC ABG pO2 Sodium Potassium Chloride Carbon Dioxide BUN Creatinine Glucose POC Glucose 137 H 129 H 122 H Calcium Magnesium AST Total Creatine Kinase CK-MB (CK-2) Troponin T NT-Pro-B Natriuret Pep Total Protein Albumin HDL Cholesterol 01/17/19 01/17/19 01/17/19 02:18 04:23 05:13 WBC RBC Hgb Hct MCV RDW Plt Count Lymph % (Auto) [place] % (Auto) Lymph # Seg Neutrophils % Seg Neuts % (Manual) Lymphocytes % (Manual) Seg Neutrophils # Seg Neutrophils # Man Lymphocytes # (Manual) PT INR POC ABG pH 7.479 H POC ABG pCO2 30.0 L POC ABG pO2 141 H Sodium Potassium Chloride Carbon Dioxide BUN Creatinine Glucose POC Glucose 139 H 128 H Calcium Magnesium AST Total Creatine Kinase CK-MB (CK-2) Troponin T NT-Pro-B Natriuret Pep Total Protein Albumin HDL Cholesterol 01/17/19 01/17/19 01/17/19 10:22 15:59 18:45 WBC RBC Hgb Hct MCV RDW Plt Count Lymph % (Auto) [place] % (Auto) Lymph # Seg Neutrophils % Seg Neuts % (Manual) Lymphocytes % (Manual) Seg Neutrophils # Seg Neutrophils # Man Lymphocytes # (Manual) PT INR POC ABG pH POC ABG pCO2 POC ABG pO2 Sodium Potassium Chloride Carbon Dioxide BUN Creatinine Glucose POC Glucose 133 H 121 H 106 H Calcium Magnesium AST Total Creatine Kinase CK-MB (CK-2) Troponin T NT-Pro-B Natriuret Pep Total Protein Albumin HDL Cholesterol 01/17/19 01/18/19 01/18/19 23:35 04:21 04:21 WBC RBC 3.27 L Hgb 9.6 L Hct 29.9 L MCV RDW Plt Count 79 L Lymph % (Auto) 6.0 L Casey % (Auto) Lymph # 0.5 L Seg Neutrophils % 89.2 H Seg Neuts % (Manual) Lymphocytes % (Manual) Seg Neutrophils # 8.1 H Seg Neutrophils # Man Lymphocytes # (Manual) PT INR POC ABG pH POC ABG pCO2 POC ABG pO2 Sodium Potassium Chloride Carbon Dioxide BUN 28 H Creatinine 1.3 H Glucose 129 H POC Glucose 121 H Calcium Magnesium AST 120 H Total Creatine Kinase CK-MB (CK-2) Troponin T NT-Pro-B Natriuret Pep Total Protein 5.1 L Albumin 3.0 L HDL Cholesterol 01/18/19 01/18/19 01/18/19 04:21 04:36 05:43 WBC RBC Hgb Hct MCV RDW Plt Count Lymph % (Auto) [place] % (Auto) Lymph # Seg Neutrophils % Seg Neuts % (Manual) Lymphocytes % (Manual) Seg Neutrophils # Seg Neutrophils # Man Lymphocytes # (Manual) PT INR POC ABG pH 7.485 H POC ABG pCO2 31.0 L POC ABG pO2 126 H Sodium Potassium Chloride Carbon Dioxide BUN 28 H Creatinine 1.3 H Glucose 128 H POC Glucose 142 H Calcium Magnesium AST Total Creatine Kinase CK-MB (CK-2) Troponin T NT-Pro-B Natriuret Pep Total Protein Albumin HDL Cholesterol 01/18/19 01/18/19 01/18/19 12:04 18:16 20:47 WBC RBC Hgb Hct MCV RDW Plt Count Lymph % (Auto) [place] % (Auto) Lymph # Seg Neutrophils % Seg Neuts % (Manual) Lymphocytes % (Manual) Seg Neutrophils # Seg Neutrophils # Man Lymphocytes # (Manual) PT INR POC ABG pH 7.489 H POC ABG pCO2 32.8 L POC ABG pO2 Sodium Potassium Chloride Carbon Dioxide BUN Creatinine Glucose POC Glucose 113 H 119 H Calcium Magnesium AST Total Creatine Kinase CK-MB (CK-2) Troponin T NT-Pro-B Natriuret Pep Total Protein Albumin HDL Cholesterol 01/19/19 01/19/19 01/19/19 00:40 05:35 11:39 WBC RBC Hgb Hct MCV RDW Plt Count Lymph % (Auto) [place] % (Auto) Lymph # Seg Neutrophils % Seg Neuts % (Manual) Lymphocytes % (Manual) Seg Neutrophils # Seg Neutrophils # Man Lymphocytes # (Manual) PT INR POC ABG pH POC ABG pCO2 POC ABG pO2 Sodium Potassium Chloride Carbon Dioxide BUN Creatinine Glucose POC Glucose 137 H 157 H 155 H Calcium Magnesium AST Total Creatine Kinase CK-MB (CK-2) Troponin T NT-Pro-B Natriuret Pep Total Protein Albumin HDL Cholesterol 01/19/19 01/19/19 01/19/19 18:24 21:08 23:33 WBC RBC Hgb Hct MCV RDW Plt Count Lymph % (Auto) [place] % (Auto) Lymph # Seg Neutrophils % Seg Neuts % (Manual) Lymphocytes % (Manual) Seg Neutrophils # Seg Neutrophils # Man Lymphocytes # (Manual) PT INR POC ABG pH 7.508 H POC ABG pCO2 34.2 L POC ABG pO2 Sodium Potassium Chloride Carbon Dioxide BUN Creatinine Glucose POC Glucose 145 H 156 H Calcium Magnesium AST Total Creatine Kinase CK-MB (CK-2) Troponin T NT-Pro-B Natriuret Pep Total Protein Albumin HDL Cholesterol 01/20/19 01/20/19 01/20/19 05:12 11:42 17:36 WBC RBC Hgb Hct MCV RDW Plt Count Lymph % (Auto) [place] % (Auto) Lymph # Seg Neutrophils % Seg Neuts % (Manual) Lymphocytes % (Manual) Seg Neutrophils # Seg Neutrophils # Man Lymphocytes # (Manual) PT INR POC ABG pH POC ABG pCO2 POC ABG pO2 Sodium Potassium Chloride Carbon Dioxide BUN Creatinine Glucose POC Glucose 152 H 159 H 169 H Calcium Magnesium AST Total Creatine Kinase CK-MB (CK-2) Troponin T NT-Pro-B Natriuret Pep Total Protein Albumin HDL Cholesterol 01/20/19 01/21/19 01/21/19 23:29 05:30 05:34 WBC RBC Hgb Hct MCV RDW Plt Count Lymph % (Auto) [place] % (Auto) Lymph # Seg Neutrophils % Seg Neuts % (Manual) Lymphocytes % (Manual) Seg Neutrophils # Seg Neutrophils # Man Lymphocytes # (Manual) PT INR POC ABG pH 7.616 H POC ABG pCO2 POC ABG pO2 71 L Sodium Potassium Chloride Carbon Dioxide BUN Creatinine Glucose POC Glucose 139 H 138 H Calcium Magnesium AST Total Creatine Kinase CK-MB (CK-2) Troponin T NT-Pro-B Natriuret Pep Total Protein Albumin HDL Cholesterol 01/21/19 01/21/19 01/22/19 12:41 18:47 00:07 WBC RBC Hgb Hct MCV RDW Plt Count Lymph % (Auto) [place] % (Auto) Lymph # Seg Neutrophils % Seg Neuts % (Manual) Lymphocytes % (Manual) Seg Neutrophils # Seg Neutrophils # Man Lymphocytes # (Manual) PT INR POC ABG pH POC ABG pCO2 POC ABG pO2 Sodium Potassium Chloride Carbon Dioxide BUN Creatinine Glucose POC Glucose 154 H 174 H 163 H Calcium Magnesium AST Total Creatine Kinase CK-MB (CK-2) Troponin T NT-Pro-B Natriuret Pep Total Protein Albumin HDL Cholesterol 01/22/19 01/22/19 01/22/19 04:35 05:46 12:18 WBC RBC Hgb Hct MCV RDW Plt Count Lymph % (Auto) [place] % (Auto) Lymph # Seg Neutrophils % Seg Neuts % (Manual) Lymphocytes % (Manual) Seg Neutrophils # Seg Neutrophils # Man Lymphocytes # (Manual) PT INR POC ABG pH 7.522 H POC ABG pCO2 POC ABG pO2 Sodium Potassium Chloride Carbon Dioxide BUN Creatinine Glucose POC Glucose 159 H 137 H Calcium Magnesium AST Total Creatine Kinase CK-MB (CK-2) Troponin T NT-Pro-B Natriuret Pep Total Protein Albumin HDL Cholesterol 01/22/19 01/22/19 01/22/19 15:00 15:00 18:13 WBC RBC 2.92 L Hgb 8.4 L Hct 25.6 L MCV RDW Plt Count Lymph % (Auto) [place] % (Auto) Lymph # Seg Neutrophils % Seg Neuts % (Manual) Lymphocytes % (Manual) Seg Neutrophils # Seg Neutrophils # Man Lymphocytes # (Manual) PT INR POC ABG pH POC ABG pCO2 POC ABG pO2 Sodium Potassium Chloride 97.0 L Carbon Dioxide BUN 37 H Creatinine Glucose 162 H POC Glucose 159 H Calcium 8.2 L Magnesium AST Total Creatine Kinase CK-MB (CK-2) Troponin T NT-Pro-B Natriuret Pep Total Protein Albumin HDL Cholesterol 01/22/19 01/23/19 01/23/19 22:45 00:01 05:10 WBC RBC 2.92 L Hgb 8.5 L Hct 25.4 L MCV RDW Plt Count Lymph % (Auto) 6.3 L Casey % (Auto) Lymph # 0.6 L Seg Neutrophils % 86.3 H Seg Neuts % (Manual) Lymphocytes % (Manual) Seg Neutrophils # 8.9 H Seg Neutrophils # Man Lymphocytes # (Manual) PT INR POC ABG pH POC ABG pCO2 POC ABG pO2 Sodium Potassium Chloride Carbon Dioxide BUN Creatinine Glucose POC Glucose 178 H 155 H Calcium Magnesium AST Total Creatine Kinase CK-MB (CK-2) Troponin T NT-Pro-B Natriuret Pep Total Protein Albumin HDL Cholesterol 01/23/19 01/23/19 01/23/19 11:31 17:49 Unknown WBC RBC Hgb Hct MCV RDW Plt Count Lymph % (Auto) [place] % (Auto) Lymph # Seg Neutrophils % Seg Neuts % (Manual) Lymphocytes % (Manual) Seg Neutrophils # Seg Neutrophils # Man Lymphocytes # (Manual) PT INR POC ABG pH POC ABG pCO2 POC ABG pO2 Sodium Potassium Chloride 95.4 L Carbon Dioxide BUN 37 H Creatinine Glucose 144 H POC Glucose 161 H 142 H Calcium Magnesium AST 88 H Total Creatine Kinase CK-MB (CK-2) Troponin T NT-Pro-B Natriuret Pep Total Protein 6.0 L Albumin 2.9 L HDL Cholesterol 01/24/19 01/24/19 01/24/19 00:21 05:36 12:35 WBC RBC Hgb Hct MCV RDW Plt Count Lymph % (Auto) [place] % (Auto) Lymph # Seg Neutrophils % Seg Neuts % (Manual) Lymphocytes % (Manual) Seg Neutrophils # Seg Neutrophils # Man Lymphocytes # (Manual) PT INR POC ABG pH POC ABG pCO2 POC ABG pO2 Sodium Potassium Chloride Carbon Dioxide BUN Creatinine Glucose POC Glucose 163 H 147 H 263 H Calcium Magnesium AST Total Creatine Kinase CK-MB (CK-2) Troponin T NT-Pro-B Natriuret Pep Total Protein Albumin HDL Cholesterol 01/24/19 01/24/19 01/24/19 17:46 23:07 Unknown WBC RBC 2.90 L Hgb 8.3 L Hct 25.0 L MCV RDW Plt Count Lymph % (Auto) [place] % (Auto) Lymph # Seg Neutrophils % Seg Neuts % (Manual) Lymphocytes % (Manual) Seg Neutrophils # Seg Neutrophils # Man Lymphocytes # (Manual) PT INR POC ABG pH POC ABG pCO2 POC ABG pO2 Sodium Potassium Chloride Carbon Dioxide BUN Creatinine Glucose POC Glucose 161 H 167 H Calcium Magnesium AST Total Creatine Kinase CK-MB (CK-2) Troponin T NT-Pro-B Natriuret Pep Total Protein Albumin HDL Cholesterol 01/24/19 01/25/19 01/25/19 Unknown 05:15 05:15 WBC RBC 2.90 L Hgb 8.4 L Hct 25.2 L MCV RDW Plt Count Lymph % (Auto) [place] % (Auto) Lymph # Seg Neutrophils % Seg Neuts % (Manual) Lymphocytes % (Manual) Seg Neutrophils # Seg Neutrophils # Man Lymphocytes # (Manual) PT INR POC ABG pH POC ABG pCO2 POC ABG pO2 Sodium 134 L 135 L Potassium Chloride 94.4 L 94.0 L Carbon Dioxide BUN 35 H 35 H Creatinine Glucose 151 H 128 H POC Glucose Calcium Magnesium AST Total Creatine Kinase CK-MB (CK-2) Troponin T NT-Pro-B Natriuret Pep Total Protein Albumin HDL Cholesterol 01/25/19 01/25/19 01/25/19 05:15 05:35 11:09 WBC RBC Hgb Hct MCV RDW Plt Count Lymph % (Auto) [place] % (Auto) Lymph # Seg Neutrophils % Seg Neuts % (Manual) Lymphocytes % (Manual) Seg Neutrophils # Seg Neutrophils # Man Lymphocytes # (Manual) PT 18.8 H INR 1.47 H POC ABG pH POC ABG pCO2 POC ABG pO2 Sodium Potassium Chloride Carbon Dioxide BUN Creatinine Glucose POC Glucose 126 H 149 H Calcium Magnesium AST Total Creatine Kinase CK-MB (CK-2) Troponin T NT-Pro-B Natriuret Pep Total Protein Albumin HDL Cholesterol 01/25/19 01/25/19 01/26/19 17:24 23:41 00:09 WBC RBC Hgb Hct MCV RDW Plt Count Lymph % (Auto) [place] % (Auto) Lymph # Seg Neutrophils % Seg Neuts % (Manual) Lymphocytes % (Manual) Seg Neutrophils # Seg Neutrophils # Man Lymphocytes # (Manual) PT INR POC ABG pH POC ABG pCO2 POC ABG pO2 Sodium Potassium Chloride Carbon Dioxide BUN Creatinine Glucose POC Glucose 140 H 142 H 156 H Calcium Magnesium AST Total Creatine Kinase CK-MB (CK-2) Troponin T NT-Pro-B Natriuret Pep Total Protein Albumin HDL Cholesterol 01/26/19 01/26/19 01/26/19 05:05 06:35 06:35 WBC RBC 2.83 L Hgb 8.1 L Hct 24.4 L MCV RDW Plt Count Lymph % (Auto) [place] % (Auto) Lymph # Seg Neutrophils % Seg Neuts % (Manual) Lymphocytes % (Manual) Seg Neutrophils # Seg Neutrophils # Man Lymphocytes # (Manual) PT INR POC ABG pH POC ABG pCO2 POC ABG pO2 Sodium Potassium Chloride 96.9 L Carbon Dioxide BUN 29 H Creatinine Glucose 141 H POC Glucose 159 H Calcium 8.3 L Magnesium AST Total Creatine Kinase CK-MB (CK-2) Troponin T NT-Pro-B Natriuret Pep Total Protein Albumin HDL Cholesterol 01/26/19 01/26/19 01/27/19 13:16 19:10 00:08 WBC RBC Hgb Hct MCV RDW Plt Count Lymph % (Auto) [place] % (Auto) Lymph # Seg Neutrophils % Seg Neuts % (Manual) Lymphocytes % (Manual) Seg Neutrophils # Seg Neutrophils # Man Lymphocytes # (Manual) PT INR POC ABG pH POC ABG pCO2 POC ABG pO2 Sodium Potassium Chloride Carbon Dioxide BUN Creatinine Glucose POC Glucose 159 H 146 H 140 H Calcium Magnesium AST Total Creatine Kinase CK-MB (CK-2) Troponin T NT-Pro-B Natriuret Pep Total Protein Albumin HDL Cholesterol 01/27/19 01/27/19 01/27/19 03:30 03:30 06:23 WBC RBC 2.85 L Hgb 8.3 L Hct 24.8 L MCV RDW Plt Count Lymph % (Auto) [place] % (Auto) Lymph # Seg Neutrophils % Seg Neuts % (Manual) Lymphocytes % (Manual) Seg Neutrophils # Seg Neutrophils # Man Lymphocytes # (Manual) PT INR POC ABG pH POC ABG pCO2 POC ABG pO2 Sodium 136 L Potassium Chloride 97.1 L Carbon Dioxide BUN 26 H Creatinine Glucose 129 H POC Glucose 154 H Calcium Magnesium AST Total Creatine Kinase CK-MB (CK-2) Troponin T NT-Pro-B Natriuret Pep Total Protein Albumin HDL Cholesterol 01/27/19 01/27/19 01/27/19 12:47 17:43 23:31 WBC RBC Hgb Hct MCV RDW Plt Count Lymph % (Auto) [place] % (Auto) Lymph # Seg Neutrophils % Seg Neuts % (Manual) Lymphocytes % (Manual) Seg Neutrophils # Seg Neutrophils # Man Lymphocytes # (Manual) PT INR POC ABG pH POC ABG pCO2 POC ABG pO2 Sodium Potassium Chloride Carbon Dioxide BUN Creatinine Glucose POC Glucose 159 H 180 H 164 H Calcium Magnesium AST Total Creatine Kinase CK-MB (CK-2) Troponin T NT-Pro-B Natriuret Pep Total Protein Albumin HDL Cholesterol 01/28/19 01/28/19 01/28/19 04:35 12:01 12:01 WBC RBC 2.67 L Hgb 7.9 L Hct 22.9 L MCV RDW Plt Count Lymph % (Auto) [place] % (Auto) Lymph # Seg Neutrophils % Seg Neuts % (Manual) Lymphocytes % (Manual) Seg Neutrophils # Seg Neutrophils # Man Lymphocytes # (Manual) PT INR POC ABG pH POC ABG pCO2 POC ABG pO2 Sodium 136 L Potassium 3.5 L Chloride Carbon Dioxide BUN 18 H Creatinine Glucose 143 H POC Glucose 139 H Calcium 8.0 L Magnesium AST Total Creatine Kinase CK-MB (CK-2) Troponin T NT-Pro-B Natriuret Pep Total Protein Albumin HDL Cholesterol 01/28/19 01/28/19 01/28/19 12:04 16:59 17:11 WBC RBC Hgb Hct MCV RDW Plt Count Lymph % (Auto) [place] % (Auto) Lymph # Seg Neutrophils % Seg Neuts % (Manual) Lymphocytes % (Manual) Seg Neutrophils # Seg Neutrophils # Man Lymphocytes # (Manual) PT INR POC ABG pH 7.488 H POC ABG pCO2 34.1 L POC ABG pO2 Sodium Potassium Chloride Carbon Dioxide BUN Creatinine Glucose POC Glucose 143 H 163 H Calcium Magnesium AST Total Creatine Kinase CK-MB (CK-2) Troponin T NT-Pro-B Natriuret Pep Total Protein Albumin HDL Cholesterol 01/29/19 01/29/19 01/29/19 00:10 05:47 12:08 WBC RBC Hgb Hct MCV RDW Plt Count Lymph % (Auto) [place] % (Auto) Lymph # Seg Neutrophils % Seg Neuts % (Manual) Lymphocytes % (Manual) Seg Neutrophils # Seg Neutrophils # Man Lymphocytes # (Manual) PT INR POC ABG pH POC ABG pCO2 POC ABG pO2 Sodium Potassium Chloride Carbon Dioxide BUN Creatinine Glucose POC Glucose 171 H 187 H 137 H Calcium Magnesium AST Total Creatine Kinase CK-MB (CK-2) Troponin T NT-Pro-B Natriuret Pep Total Protein Albumin HDL Cholesterol 01/29/19 01/29/19 01/29/19 16:48 16:54 17:47 WBC RBC Hgb Hct MCV RDW Plt Count Lymph % (Auto) [place] % (Auto) Lymph # Seg Neutrophils % Seg Neuts % (Manual) Lymphocytes % (Manual) Seg Neutrophils # Seg Neutrophils # Man Lymphocytes # (Manual) PT INR POC ABG pH 7.486 H 7.512 H POC ABG pCO2 32.8 L 32.7 L POC ABG pO2 108 H Sodium Potassium Chloride Carbon Dioxide BUN Creatinine Glucose POC Glucose 156 H Calcium Magnesium AST Total Creatine Kinase CK-MB (CK-2) Troponin T NT-Pro-B Natriuret Pep Total Protein Albumin HDL Cholesterol 01/29/19 01/30/19 01/30/19 23:48 06:45 07:18 WBC RBC 2.94 L Hgb 8.6 L Hct 25.7 L MCV RDW Plt Count Lymph % (Auto) [place] % (Auto) Lymph # Seg Neutrophils % Seg Neuts % (Manual) Lymphocytes % (Manual) Seg Neutrophils # Seg Neutrophils # Man Lymphocytes # (Manual) PT INR POC ABG pH POC ABG pCO2 POC ABG pO2 Sodium 135 L Potassium Chloride Carbon Dioxide BUN Creatinine Glucose 141 H POC Glucose 185 H Calcium 8.3 L Magnesium AST Total Creatine Kinase CK-MB (CK-2) Troponin T NT-Pro-B Natriuret Pep Total Protein Albumin HDL Cholesterol 01/30/19 01/30/19 01/30/19 11:17 16:47 18:16 WBC RBC Hgb Hct MCV RDW Plt Count Lymph % (Auto) [place] % (Auto) Lymph # Seg Neutrophils % Seg Neuts % (Manual) Lymphocytes % (Manual) Seg Neutrophils # Seg Neutrophils # Man Lymphocytes # (Manual) PT INR POC ABG pH 7.508 H POC ABG pCO2 31.5 L POC ABG pO2 135 H Sodium Potassium Chloride Carbon Dioxide BUN Creatinine Glucose POC Glucose 170 H 108 H Calcium Magnesium AST Total Creatine Kinase CK-MB (CK-2) Troponin T NT-Pro-B Natriuret Pep Total Protein Albumin HDL Cholesterol 01/30/19 01/31/19 01/31/19 23:38 05:45 12:04 WBC RBC Hgb Hct MCV RDW Plt Count Lymph % (Auto) [place] % (Auto) Lymph # Seg Neutrophils % Seg Neuts % (Manual) Lymphocytes % (Manual) Seg Neutrophils # Seg Neutrophils # Man Lymphocytes # (Manual) PT INR POC ABG pH POC ABG pCO2 POC ABG pO2 Sodium Potassium Chloride Carbon Dioxide BUN Creatinine Glucose POC Glucose 146 H 121 H 152 H Calcium Magnesium AST Total Creatine Kinase CK-MB (CK-2) Troponin T NT-Pro-B Natriuret Pep Total Protein Albumin HDL Cholesterol 01/31/19 01/31/19 02/01/19 17:44 23:58 05:46 WBC RBC Hgb Hct MCV RDW Plt Count Lymph % (Auto) [place] % (Auto) Lymph # Seg Neutrophils % Seg Neuts % (Manual) Lymphocytes % (Manual) Seg Neutrophils # Seg Neutrophils # Man Lymphocytes # (Manual) PT INR POC ABG pH POC ABG pCO2 POC ABG pO2 Sodium Potassium Chloride Carbon Dioxide BUN Creatinine Glucose POC Glucose 153 H 183 H 116 H Calcium Magnesium AST Total Creatine Kinase CK-MB (CK-2) Troponin T NT-Pro-B Natriuret Pep Total Protein Albumin HDL Cholesterol 02/01/19 02/01/19 02/01/19 11:10 12:18 17:48 WBC RBC Hgb Hct MCV RDW Plt Count Lymph % (Auto) Casey % (Auto) Lymph # Seg Neutrophils % Seg Neuts % (Manual) Lymphocytes % (Manual) Seg Neutrophils # Seg Neutrophils # Man Lymphocytes # (Manual) PT INR POC ABG pH POC ABG pCO2 POC ABG pO2 Sodium 133 L Potassium 3.3 L Chloride 96.1 L Carbon Dioxide BUN Creatinine Glucose 145 H POC Glucose 175 H 129 H Calcium 8.3 L Magnesium AST Total Creatine Kinase CK-MB (CK-2) Troponin T NT-Pro-B Natriuret Pep Total Protein Albumin HDL Cholesterol 02/01/19 02/02/19 02/02/19 23:13 05:16 06:00 WBC RBC Hgb Hct MCV RDW Plt Count Lymph % (Auto) Casey % (Auto) Lymph # Seg Neutrophils % Seg Neuts % (Manual) Lymphocytes % (Manual) Seg Neutrophils # Seg Neutrophils # Man Lymphocytes # (Manual) PT INR POC ABG pH POC ABG pCO2 POC ABG pO2 Sodium 135 L Potassium Chloride Carbon Dioxide BUN 18 H Creatinine Glucose 121 H POC Glucose 143 H 140 H Calcium 8.3 L Magnesium 1.60 L AST Total Creatine Kinase CK-MB (CK-2) Troponin T NT-Pro-B Natriuret Pep Total Protein Albumin HDL Cholesterol 02/02/19 02/02/19 02/02/19 12:06 18:23 23:45 WBC RBC Hgb Hct MCV RDW Plt Count Lymph % (Auto) Casey % (Auto) Lymph # Seg Neutrophils % Seg Neuts % (Manual) Lymphocytes % (Manual) Seg Neutrophils # Seg Neutrophils # Man Lymphocytes # (Manual) PT INR POC ABG pH POC ABG pCO2 POC ABG pO2 Sodium Potassium Chloride Carbon Dioxide BUN Creatinine Glucose POC Glucose 156 H 159 H 139 H Calcium Magnesium AST Total Creatine Kinase CK-MB (CK-2) Troponin T NT-Pro-B Natriuret Pep Total Protein Albumin HDL Cholesterol 02/03/19 02/03/19 02/03/19 05:19 12:02 17:24 WBC RBC Hgb Hct MCV RDW Plt Count Lymph % (Auto) Casey % (Auto) Lymph # Seg Neutrophils % Seg Neuts % (Manual) Lymphocytes % (Manual) Seg Neutrophils # Seg Neutrophils # Man Lymphocytes # (Manual) PT INR POC ABG pH POC ABG pCO2 POC ABG pO2 Sodium Potassium Chloride Carbon Dioxide BUN Creatinine Glucose POC Glucose 147 H 163 H 144 H Calcium Magnesium AST Total Creatine Kinase CK-MB (CK-2) Troponin T NT-Pro-B Natriuret Pep Total Protein Albumin HDL Cholesterol 02/03/19 02/04/19 02/04/19 23:43 05:30 11:14 WBC RBC 3.00 L Hgb 8.7 L Hct 25.9 L MCV RDW Plt Count Lymph % (Auto) 11.5 L Casey % (Auto) 7.5 H Lymph # 0.8 L Seg Neutrophils % 79.6 H Seg Neuts % (Manual) Lymphocytes % (Manual) Seg Neutrophils # Seg Neutrophils # Man Lymphocytes # (Manual) PT INR POC ABG pH POC ABG pCO2 POC ABG pO2 Sodium Potassium Chloride Carbon Dioxide BUN Creatinine Glucose POC Glucose 131 H 145 H Calcium Magnesium AST Total Creatine Kinase CK-MB (CK-2) Troponin T NT-Pro-B Natriuret Pep Total Protein Albumin HDL Cholesterol 02/04/19 02/04/19 02/04/19 11:14 12:09 17:37 WBC RBC Hgb Hct MCV RDW Plt Count Lymph % (Auto) Casey % (Auto) Lymph # Seg Neutrophils % Seg Neuts % (Manual) Lymphocytes % (Manual) Seg Neutrophils # Seg Neutrophils # Man Lymphocytes # (Manual) PT INR POC ABG pH POC ABG pCO2 POC ABG pO2 Sodium Potassium Chloride 96.5 L Carbon Dioxide BUN 30 H Creatinine Glucose 142 H POC Glucose 149 H 170 H Calcium Magnesium AST Total Creatine Kinase CK-MB (CK-2) Troponin T NT-Pro-B Natriuret Pep Total Protein Albumin HDL Cholesterol 02/04/19 02/05/19 02/05/19 23:33 04:27 04:27 WBC RBC 3.61 L Hgb Hct MCV RDW Plt Count Lymph % (Auto) 12.3 L Casey % (Auto) Lymph # 0.9 L Seg Neutrophils % 79.1 H Seg Neuts % (Manual) Lymphocytes % (Manual) Seg Neutrophils # Seg Neutrophils # Man Lymphocytes # (Manual) PT INR POC ABG pH POC ABG pCO2 POC ABG pO2 Sodium Potassium Chloride 96.0 L Carbon Dioxide BUN 26 H Creatinine Glucose 118 H POC Glucose 182 H Calcium Magnesium AST Total Creatine Kinase CK-MB (CK-2) Troponin T NT-Pro-B Natriuret Pep Total Protein Albumin HDL Cholesterol 02/05/19 02/05/19 02/05/19 05:51 12:37 23:56 WBC RBC Hgb Hct MCV RDW Plt Count Lymph % (Auto) Casey % (Auto) Lymph # Seg Neutrophils % Seg Neuts % (Manual) Lymphocytes % (Manual) Seg Neutrophils # Seg Neutrophils # Man Lymphocytes # (Manual) PT INR POC ABG pH POC ABG pCO2 POC ABG pO2 Sodium Potassium Chloride Carbon Dioxide BUN Creatinine Glucose POC Glucose 162 H 147 H 167 H Calcium Magnesium AST Total Creatine Kinase CK-MB (CK-2) Troponin T NT-Pro-B Natriuret Pep Total Protein Albumin HDL Cholesterol 02/06/19 02/06/19 02/06/19 05:33 12:02 16:42 WBC RBC Hgb Hct MCV RDW Plt Count Lymph % (Auto) Casey % (Auto) Lymph # Seg Neutrophils % Seg Neuts % (Manual) Lymphocytes % (Manual) Seg Neutrophils # Seg Neutrophils # Man Lymphocytes # (Manual) PT INR POC ABG pH POC ABG pCO2 POC ABG pO2 Sodium Potassium Chloride Carbon Dioxide BUN Creatinine Glucose POC Glucose 124 H 156 H 125 H Calcium Magnesium AST Total Creatine Kinase CK-MB (CK-2) Troponin T NT-Pro-B Natriuret Pep Total Protein Albumin HDL Cholesterol 02/07/19 02/07/19 02/07/19 00:21 05:46 11:28 WBC RBC Hgb Hct MCV RDW Plt Count Lymph % (Auto) Casey % (Auto) Lymph # Seg Neutrophils % Seg Neuts % (Manual) Lymphocytes % (Manual) Seg Neutrophils # Seg Neutrophils # Man Lymphocytes # (Manual) PT INR POC ABG pH POC ABG pCO2 POC ABG pO2 Sodium Potassium Chloride Carbon Dioxide BUN Creatinine Glucose POC Glucose 206 H 153 H 200 H Calcium Magnesium AST Total Creatine Kinase CK-MB (CK-2) Troponin T NT-Pro-B Natriuret Pep Total Protein Albumin HDL Cholesterol 02/07/19 02/08/19 02/08/19 18:48 00:08 05:29 WBC RBC Hgb Hct MCV RDW Plt Count Lymph % (Auto) Casey % (Auto) Lymph # Seg Neutrophils % Seg Neuts % (Manual) Lymphocytes % (Manual) Seg Neutrophils # Seg Neutrophils # Man Lymphocytes # (Manual) PT INR POC ABG pH POC ABG pCO2 POC ABG pO2 Sodium Potassium Chloride Carbon Dioxide BUN Creatinine Glucose POC Glucose 185 H 174 H 148 H Calcium Magnesium AST Total Creatine Kinase CK-MB (CK-2) Troponin T NT-Pro-B Natriuret Pep Total Protein Albumin HDL Cholesterol 02/08/19 02/08/19 02/08/19 07:00 07:00 11:45 WBC RBC 3.12 L Hgb 8.9 L Hct 26.7 L MCV RDW Plt Count Lymph % (Auto) 9.5 L Casey % (Auto) Lymph # 0.9 L Seg Neutrophils % 84.5 H Seg Neuts % (Manual) Lymphocytes % (Manual) Seg Neutrophils # 8.1 H Seg Neutrophils # Man Lymphocytes # (Manual) PT INR POC ABG pH POC ABG pCO2 POC ABG pO2 Sodium 135 L Potassium Chloride 91.1 L Carbon Dioxide 33 H BUN 44 H Creatinine Glucose 166 H POC Glucose 166 H Calcium Magnesium AST Total Creatine Kinase CK-MB (CK-2) Troponin T NT-Pro-B Natriuret Pep Total Protein Albumin HDL Cholesterol 02/09/19 02/09/19 02/09/19 01:31 05:44 10:48 WBC RBC Hgb Hct MCV RDW Plt Count Lymph % (Auto) Casey % (Auto) Lymph # Seg Neutrophils % Seg Neuts % (Manual) Lymphocytes % (Manual) Seg Neutrophils # Seg Neutrophils # Man Lymphocytes # (Manual) PT INR POC ABG pH POC ABG pCO2 POC ABG pO2 Sodium Potassium Chloride Carbon Dioxide BUN Creatinine Glucose POC Glucose 215 H 146 H 151 H Calcium Magnesium AST Total Creatine Kinase CK-MB (CK-2) Troponin T NT-Pro-B Natriuret Pep Total Protein Albumin HDL Cholesterol 02/09/19 02/09/19 02/10/19 15:35 21:21 01:00 WBC RBC Hgb Hct MCV RDW Plt Count Lymph % (Auto) Casey % (Auto) Lymph # Seg Neutrophils % Seg Neuts % (Manual) Lymphocytes % (Manual) Seg Neutrophils # Seg Neutrophils # Man Lymphocytes # (Manual) PT INR POC ABG pH POC ABG pCO2 POC ABG pO2 Sodium Potassium Chloride Carbon Dioxide BUN Creatinine Glucose POC Glucose 139 H 153 H 183 H Calcium Magnesium AST Total Creatine Kinase CK-MB (CK-2) Troponin T NT-Pro-B Natriuret Pep Total Protein Albumin HDL Cholesterol 02/10/19 02/10/19 02/10/19 05:27 06:54 11:46 WBC RBC Hgb Hct MCV RDW Plt Count Lymph % (Auto) Casey % (Auto) Lymph # Seg Neutrophils % Seg Neuts % (Manual) Lymphocytes % (Manual) Seg Neutrophils # Seg Neutrophils # Man Lymphocytes # (Manual) PT INR POC ABG pH POC ABG pCO2 POC ABG pO2 Sodium Potassium Chloride Carbon Dioxide BUN Creatinine Glucose POC Glucose 155 H 135 H 165 H Calcium Magnesium AST Total Creatine Kinase CK-MB (CK-2) Troponin T NT-Pro-B Natriuret Pep Total Protein Albumin HDL Cholesterol 02/10/19 02/10/19 02/11/19 17:59 22:07 07:07 WBC RBC Hgb Hct MCV RDW Plt Count Lymph % (Auto) Casey % (Auto) Lymph # Seg Neutrophils % Seg Neuts % (Manual) Lymphocytes % (Manual) Seg Neutrophils # Seg Neutrophils # Man Lymphocytes # (Manual) PT INR POC ABG pH POC ABG pCO2 POC ABG pO2 Sodium Potassium Chloride Carbon Dioxide BUN Creatinine Glucose POC Glucose 110 H 154 H 175 H Calcium Magnesium AST Total Creatine Kinase CK-MB (CK-2) Troponin T NT-Pro-B Natriuret Pep Total Protein Albumin HDL Cholesterol 02/11/19 02/11/19 02/12/19 11:49 17:00 01:20 WBC RBC Hgb Hct MCV RDW Plt Count Lymph % (Auto) Casey % (Auto) Lymph # Seg Neutrophils % Seg Neuts % (Manual) Lymphocytes % (Manual) Seg Neutrophils # Seg Neutrophils # Man Lymphocytes # (Manual) PT INR POC ABG pH POC ABG pCO2 POC ABG pO2 Sodium Potassium Chloride Carbon Dioxide BUN Creatinine Glucose POC Glucose 172 H 179 H 182 H Calcium Magnesium AST Total Creatine Kinase CK-MB (CK-2) Troponin T NT-Pro-B Natriuret Pep Total Protein Albumin HDL Cholesterol 02/12/19 02/12/19 02/12/19 06:00 06:00 11:53 WBC RBC 2.61 L Hgb 7.5 L Hct 22.3 L MCV RDW Plt Count 133 L Lymph % (Auto) Casey % (Auto) Lymph # Seg Neutrophils % Seg Neuts % (Manual) Lymphocytes % (Manual) Seg Neutrophils # Seg Neutrophils # Man Lymphocytes # (Manual) PT INR POC ABG pH POC ABG pCO2 POC ABG pO2 Sodium Potassium Chloride 96.3 L Carbon Dioxide 33 H BUN 58 H Creatinine Glucose 157 H POC Glucose 176 H Calcium Magnesium AST 49 H Total Creatine Kinase CK-MB (CK-2) Troponin T NT-Pro-B Natriuret Pep Total Protein Albumin 2.9 L HDL Cholesterol 02/12/19 02/12/19 02/12/19 16:46 17:59 18:21 WBC RBC Hgb Hct MCV RDW Plt Count Lymph % (Auto) Casey % (Auto) Lymph # Seg Neutrophils % Seg Neuts % (Manual) Lymphocytes % (Manual) Seg Neutrophils # Seg Neutrophils # Man Lymphocytes # (Manual) PT INR POC ABG pH POC ABG pCO2 POC ABG pO2 Sodium Potassium Chloride Carbon Dioxide BUN Creatinine Glucose POC Glucose 226 H 211 H 215 H Calcium Magnesium AST Total Creatine Kinase CK-MB (CK-2) Troponin T NT-Pro-B Natriuret Pep Total Protein Albumin HDL Cholesterol 02/13/19 02/13/19 00:32 06:10 WBC RBC Hgb Hct MCV RDW Plt Count Lymph % (Auto) Casey % (Auto) Lymph # Seg Neutrophils % Seg Neuts % (Manual) Lymphocytes % (Manual) Seg Neutrophils # Seg Neutrophils # Man Lymphocytes # (Manual) PT INR POC ABG pH POC ABG pCO2 POC ABG pO2 Sodium Potassium Chloride Carbon Dioxide BUN Creatinine Glucose POC Glucose 188 H 179 H Calcium Magnesium AST Total Creatine Kinase CK-MB (CK-2) Troponin T NT-Pro-B Natriuret Pep Total Protein Albumin HDL Cholesterol Allied health notes reviewed: nursing
[2019-02-13] MEDS: KEPPRA PO SCH (09:47)
[2019-02-13] MEDS: SODIUM CHLORIDE FLUSH SYRINGE 10 ML IV SCH (09:47)
[2019-02-13] MEDS: PREVACID SOLUTAB FEEDTUBE SCH (09:47)
[2019-02-13] MEDS: BABY ASPIRIN PO SCH (09:47)
[2019-02-13] MEDS: LOVENOX SUB-Q SCH (09:47)
[2019-02-13] MEDS: KENALOG TP SCH (09:48)
[2019-02-13] MEDS: COREG PO SCH (09:48)
[2019-02-13] MEDS: NORVASC PO SCH (09:56)
--- NOTE | 2019-02-13 11:01 | Progress Note ---
Assessment and Plan Assessment and plan: Patient is 73 yo woman with a history of hypertension, CAD s/p stent and COPD/emphesema, not on home Oxygen who presented to [facility] ED on 01/15/2019 after cardiac arrest. How long she was unresponsive/without oxygen is unknown. She was in PEA, given 2 rounds of IV Epinephrine, CPR, intubated , resuscitated, and brought to ED. She had seizures later same day, was started on keppra. She had ACRMELINA on presentation, resolved in few days. She remained comatose, acute respiratory failure vent dependent. Trach and PEG was recommended. Tracheostomy done 01/25/19. PEG not done yet because of abdominal distension and poor light translumination. She has poor prognosis and may need LTAC Oropharyngeal dysphagia. PEG tube pending Anoxic encephalopathy, severe irreversible brain damage: EEG 01/17/19 reported as abnormal with minimal brain activity. No epileptiform discharges. Neurology following, supportive care Cardiopulmonary arrest. Patient with out of hospital PEA arrest and ROSC. Cardiology following. Acute hypoxemic hypercapnic respiratory failure. Patient previously on mechanical ventilation but has been weaned. Continue TP trials. Continue trach care. Aspiration pneumonia. Completed treatment Aspiration precautions. Sepsis, poa. Complete Pneumonia treatment ID following. Acute renal failure, tubular necrosis and vasomotor nephropathy, poa. resolved, Etiology likely secondary to acute kidney injury from sepsis. Creatinine is stable. Continue to monitor. Pulmonary hypertension. 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 Patient with moderate global hypokinesis of left ventricle EF 35-40% and left ventricular systolic function moderately decreased. Cardiology following CAD s/p stent placement, She goes to taker away at [facility] Sacral decubitus, stage 3; continue wound care, decline to place a cooper, continue to use Purex catheter Disposition: continue inpatient care, await LTACH placement s/p PEG on Tuesday02/09/19, Hospitalist Physical - Constitutional Vitals: Temp Pulse Resp BP Pulse Ox 99.5 F 97 H 18 106/72 100 02/13/19 07:59 02/13/19 09:56 02/13/19 07:59 02/13/19 09:56 02/13/19 07:59 General appearance: Present: other (trached, nonresponsive at time of exami nation) Results - Labs CBC & Chem 7: 02/12/19 06:00 02/12/19 06:00 Labs: Laboratory Last Values WBC 8.0 K/mm3 (4.5-11.0) 02/12/19 06:00 RBC 2.61 M/mm3 (3.65-5.03) L 02/12/19 06:00 Hgb 7.5 gm/dl (10.1-14.3) L 02/12/19 06:00 Hct 22.3 % (30.3-42.9) L 02/12/19 06:00 MCV 86 fl (79-97) 02/12/19 06:00 MCH 29 pg (28-32) 02/12/19 06:00 MCHC 34 % (30-34) 02/12/19 06:00 RDW 15.0 % (13.2-15.2) 02/12/19 06:00 Plt Count 133 K/mm3 (140-440) L 02/12/19 06:00 Lymph % (Auto) 9.5 % (13.4-35.0) L 02/08/19 07:00 Wake % (Auto) 5.3 % (0.0-7.3) 02/08/19 07:00 Eos % (Auto) 0.5 % (0.0-4.3) 02/08/19 07:00 Baso % (Auto) 0.2 % (0.0-1.8) 02/08/19 07:00 Lymph # 0.9 K/mm3 (1.2-5.4) L 02/08/19 07:00 Wake # 0.5 K/mm3 (0.0-0.8) 02/08/19 07:00 Eos # 0.0 K/mm3 (0.0-0.4) 02/08/19 07:00 Baso # 0.0 K/mm3 (0.0-0.1) 02/08/19 07:00 Add Manual Diff Complete 01/16/19 04:16 Total Counted 100 01/16/19 04:16 Seg Neutrophils % 84.5 % (40.0-70.0) H 02/08/19 07:00 Seg Neuts % (Manual) 74.0 % (40.0-70.0) H 01/16/19 04:16 22.0 % 01/16/19 04:16 2.0 % (13.4-35.0) L 01/16/19 04:16 Reactive Lymphs % (Man) 0 % 01/16/19 04:16 2.0 % (0.0-7.3) 01/16/19 04:16 0 % (0.0-4.3) 01/16/19 04:16 0 % (0.0-1.8) 01/16/19 04:16 0 % 01/16/19 04:16 0 % 01/16/19 04:16 0 % 01/16/19 04:16 0 % 01/16/19 04:16 Nucleated RBC % Not Reportable 01/16/19 04:16 Seg Neutrophils # 8.1 K/mm3 (1.8-7.7) H 02/08/19 07:00 Seg Neutrophils # Man 8.4 K/mm3 (1.8-7.7) H 01/16/19 04:16 Band Neutrophils # 2.5 K/mm3 01/16/19 04:16 0.2 K/mm3 (1.2-5.4) L 01/16/19 04:16 Abs React Lymphs (Man) 0.0 K/mm3 01/16/19 04:16 0.2 K/mm3 (0.0-0.8) 01/16/19 04:16 0.0 K/mm3 (0.0-0.4) 01/16/19 04:16 0.0 K/mm3 (0.0-0.1) 01/16/19 04:16 0.0 K/mm3 01/16/19 04:16 0.0 K/mm3 01/16/19 04:16 0.0 K/mm3 01/16/19 04:16 Blast Cells # 0.0 K/mm3 01/16/19 04:16 WBC Morphology Not Reportable 01/16/19 04:16 Hypersegmented Neuts Not Reportable 01/16/19 04:16 Hyposegmented Neuts Not Reportable 01/16/19 04:16 Hypogranular Neuts Not Reportable 01/16/19 04:16 Not Reportable 01/16/19 04:16 Not Reportable 01/16/19 04:16 Not Reportable 01/16/19 04:16 Not Reportable 01/16/19 04:16 Not Reportable 01/16/19 04:16 Not Reportable 01/16/19 04:16 Consistent w auto 01/16/19 04:16 Not Reportable 01/16/19 04:16 Plt Clumps, EDTA Not Reportable 01/16/19 04:16 Not Reportable 01/16/19 04:16 Not Reportable 01/16/19 04:16 Not Reportable 01/16/19 04:16 Plt Morphology Comment Not Reportable 01/16/19 04:16 RBC Morphology Normal 01/16/19 04:16 Dimorphic RBCs Not Reportable 01/16/19 04:16 Not Reportable 01/16/19 04:16 Not Reportable 01/16/19 04:16 Not Reportable 01/16/19 04:16 Not Reportable 01/16/19 04:16 Not Reportable 01/16/19 04:16 Not Reportable 01/16/19 04:16 Not Reportable 01/16/19 04:16 Not Reportable 01/16/19 04:16 Not Reportable 01/16/19 04:16 Not Reportable 01/16/19 04:16 Not Reportable 01/16/19 04:16 Not Reportable 01/16/19 04:16 Not Reportable 01/16/19 04:16 Not Reportable 01/16/19 04:16 Not Reportable 01/16/19 04:16 Not Reportable 01/16/19 04:16 Not Reportable 01/16/19 04:16 Not Reportable 01/16/19 04:16 Not Reportable 01/16/19 04:16 Acanthocytes (Spur) Not Reportable 01/16/19 04:16 Rouleaux Not Reportable 01/16/19 04:16 Not Reportable 01/16/19 04:16 Not Reportable 01/16/19 04:16 Not Reportable 01/16/19 04:16 Not Reportable 01/16/19 04:16 Hem Pathologist Commnt No 01/16/19 04:16 PT 18.8 Sec. (12.2-14.9) H 01/25/19 05:15 INR 1.47 (0.87-1.13) H 01/25/19 05:15 APTT 36.0 Sec. (24.2-36.6) 01/15/19 07:50 Heparin Anti-Xa, Unfract Negative (Negative) 01/19/19 Unknown POC ABG pH 7.508 (7.35-7.45) H 01/30/19 16:47 POC ABG pCO2 31.5 (35-45) L 01/30/19 16:47 POC ABG pO2 135 (80-105) H 01/30/19 16:47 POC ABG HCO3 25.0 (22-26 mml/L) 01/30/19 16:47 POC ABG Total CO2 26 (23-27mmol/L) 01/30/19 16:47 POC ABG O2 Sat 99 01/30/19 16:47 POC ABG Base Excess 2 ((-2) - (+3)mmol/L) 01/30/19 16:47 28 % 01/30/19 16:47 Sodium 140 mmol/L (137-145) 02/12/19 06:00 Potassium 3.7 mmol/L (3.6-5.0) 02/12/19 06:00 Chloride 96.3 mmol/L (98-107) L 02/12/19 06:00 Carbon Dioxide 33 mmol/L (22-30) H 02/12/19 06:00 14 mmol/L 02/12/19 06:00 BUN 58 mg/dL (7-17) H 02/12/19 06:00 0.8 mg/dL (0.7-1.2) 02/12/19 06:00 Estimated GFR > 60 ml/min 02/12/19 06:00 73 % 02/12/19 06:00 Glucose 157 mg/dL (65-100) H 02/12/19 06:00 POC Glucose 179 (70-105) H 02/13/19 06:10 6.0 % (4-6) 01/15/19 11:53 Calcium 9.3 mg/dL (8.4-10.2) 02/12/19 06:00 Phosphorus 3.10 mg/dL (2.5-4.5) 02/02/19 06:00 Magnesium 1.60 mg/dL (1.7-2.3) L 02/02/19 06:00 0.20 mg/dL (0.1-1.2) 02/12/19 06:00 AST 49 units/L (5-40) H 02/12/19 06:00 ALT 26 units/L (7-56) 02/12/19 06:00 69 units/L (35-129) 02/12/19 06:00 1430 units/L (30-135) H 01/15/19 17:52 CK-MB (CK-2) 13.5 ng/mL (0.0-4.0) H 01/15/19 17:52 CK-MB (CK-2) Rel Index 0.9 (0-4) 01/15/19 17:52 0.036 ng/mL (0.00-0.029) H D 01/15/19 17:52 NT-Pro-B Natriuret Pep 5346 pg/mL (0-900) H 01/15/19 07:50 6.5 g/dL (6.3-8.2) 02/12/19 06:00 2.9 g/dL (3.9-5) L 02/12/19 06:00 0.8 % 02/12/19 06:00 Triglycerides 75 mg/dL (2-149) 01/15/19 17:52 Cholesterol 149 mg/dL (50-199) 01/15/19 17:52 84 mg/dL (50-130) 01/15/19 17:52 65 mg/dL (40-59) H 01/15/19 17:52 2.29 % 01/15/19 17:52 See scanned report 01/19/19 Unknown Yellow (Yellow) 01/21/19 16:10 Clear (Clear) 01/21/19 16:10 6.0 (5.0-7.0) 01/21/19 16:10 Ur Specific [place] 1.015 (1.003-1.030) 01/21/19 16:10 <15 mg/dl mg/dL (Negative) 01/21/19 16:10 Neg mg/dL (Negative) 01/21/19 16:10 Neg mg/dL (Negative) 01/21/19 16:10 Neg (Negative) 01/21/19 16:10 Neg (Negative) 01/21/19 16:10 Neg (Negative) 01/21/19 16:10 2.0 mg/dL (<2.0) 01/21/19 16:10 Ur Leukocyte Esterase Neg (Negative) 01/21/19 16:10 1.0 /HPF (0.0-6.0) 01/21/19 16:10 5.0 /HPF (0.0-6.0) 01/21/19 16:10 Presumptive negative 01/15/19 16:30 Presumptive negative 01/15/19 16:30 Ur Barbiturates Screen Presumptive negative 01/15/19 16:30 Ur Phencyclidine Scrn Presumptive negative 01/15/19 16:30 Ur Amphetamines Screen Presumptive negative 01/15/19 16:30 U Benzodiazepines Scrn Presumptive negative 01/15/19 16:30 Presumptive negative 01/15/19 16:30 U Marijuana (THC) Screen Presumptive negative 01/15/19 16:30 Disclamer 01/15/19 16:30 Heparin-induced Plt Ab Negative (Negative) 01/19/19 Unknown UF Heparin High Dose 3 % Release 01/19/19 Unknown JOSEFA UFH Low Dose 0.1 4 % Release 01/19/19 Unknown JOSEFA UFH Low Dose 0.5 5 % Release 01/19/19 Unknown C. difficile Tox (PCR) Negative (Negative) 01/16/19 00:00 Active Medications - Current Medications Current Medications: Generic Name Dose Route Start Last Admin Trade Name Freq PRN Reason Stop Dose Admin Acetaminophen 650 mg 01/16/19 09:37 01/20/19 00:24 Tylenol PO 650 mg Q4H PRN Administration Fever >101 Albuterol/Ipratropium 1 ampul 01/15/19 14:00 02/13/19 07:42 Duoneb *Not For Prn Use* IH 1 ampul Q6HRT DEON Administration Amlodipine Besylate 10 mg 01/24/19 12:00 02/13/19 09:56 Norvasc PO 10 mg DAILY DEON Administration Lipase/Protease/Amylase 1 each 02/02/19 14:21 Pancreazkerry Siddiqui 10,500 Unit FEEDTUBE PRN PRN For Clogged Feeding Tube Aspirin 81 mg 01/16/19 10:00 02/13/19 09:47 Baby Aspirin PO 81 mg QDAY DEON Administration Atorvastatin Calcium 20 mg 01/16/19 22:00 02/12/19 22:48 Lipitor PO 20 mg QHS DEON Administration Carvedilol 12.5 mg 01/24/19 22:00 02/13/19 09:48 Coreg PO 12.5 mg BID DEON Administration Enoxaparin Sodium 40 mg 01/30/19 10:00 02/13/19 09:47 Lovenox SUB-Q 40 mg QDAY@1000 DEON Administration Furosemide 20 mg 01/19/19 18:00 02/13/19 06:23 Lasix PO 20 mg 0600,1800 DEON Administration Insulin Human Lispro 0 unit 01/22/19 14:00 02/13/19 06:57 Humalog SUB-Q 2 unit Q6HR DEON Administration Protocol Lansoprazole 30 mg 01/30/19 10:00 02/13/19 09:47 Prevacid Solutab FEEDTUBE 30 mg BID DEON Administration Levetiracetam 750 mg 01/18/19 10:00 02/13/19 09:47 Keppra PO 750 mg BID DEON Administration Metoclopramide HCl 10 mg 02/01/19 14:00 02/13/19 06:24 Reglan IV 10 mg Q8HR DEON Administration Scopolamine 1 each 02/09/19 16:00 02/12/19 23:25 Transderm-Scop TD 1 each Q3D DEON Administration Simple Syrup 15 ml 02/02/19 14:21 Simple Syrup FEEDTUBE PRN PRN Hypoglycemia Simple Syrup 30 ml 02/02/19 14:21 Simple Syrup FEEDTUBE PRN PRN Hypoglycemia Sodium Bicarbonate 325 mg 02/02/19 14:21 Sodium Bicarbonate FEEDTUBE PRN PRN For Clogged Feeding Tube Sodium Chloride 10 ml 01/15/19 22:00 02/13/19 09:47 Sodium Chloride Flush Syringe 10 Ml IV 10 ml BID DEON Administration Sodium Chloride 10 ml 01/15/19 10:34 02/12/19 22:49 Sodium Chloride Flush Syringe 10 Ml IV 10 ml PRN PRN Administration LINE FLUSH Triamcinolone Acetonide 1 applic 01/24/19 14:00 02/13/19 09:48 Kenalog TP 1 applic BID DEON Administration Nutrition/Malnutrition Assess - Dietary Evaluation Nutrition/Malnutrition Findings: Nutrition Notes Start: 01/15/19 14:28 Freq: Status: Active Protocol: Document 02/13/19 09:06 LP (Rec: 02/13/19 09:08 LP [id number]) Nutrition Notes Initial or Follow up Reassessment Current Diagnosis Acute Kidney Injury,Heart Failure,Respiratory Failure Other Pertinent Diagnosis dysphagia, s/p cardiorespiratory arrest (at home), Aspiration Pneu Current Diet Glucerna 1.2 at 50 ml/hr Labs/Tests Reviewed Pertinent Medications Reviewed Height 5 ft 4 in Weight 49.442 kg [place] Body Weight (kg) 54.54 BMI 18.7 Subjective/Other Information Pt tolerating TF at goal rate. Percent of energy/protein needs met: 86%/100% Burn Absent Trauma Absent #1 Nutrition Diagnosis Inadequate oral intake Diagnosis Progress(for reassessment Continues documentation) Is patient on ventilator? No Is Patient Ambulatory and/or Out of Bed No REE-([facility]-confined to bed) 1175.904 Kcal/Kg value to use for calculation 35 Approximate Energy Requirements Using 1730 kcal/Kg Calculation Used for Recommendations Kcal/kg Additional Notes Pro needs 1-1.2g/k-57g/day Fluid needs 1ml/kcal Nutrition Intervention Change Diet Order: TF Nutrition Support: Glucerna 1.2 at 50ml/hr with 80ml water flush q4h. Kcal 1,440 Protein (gm) 72 Fluid (mL) 966 Goal #1 Continue to meet at least 75% of calorie and protein needs via TF Goal #2 Wt maintenance and/or gain Anticipated Discharge Needs: Glucerna 1.2 at 50ml/hr with 80ml q4h flush Follow-Up By: 02/20/19 Additional Comments Follow for stable TF
--- NOTE | 2019-02-13 12:06 | Discharge Summary ---
Providers - Providers Date of Admission: 01/15/19 09:46 Attending physician: JOSE CABRERA MD 01/15/19 09:46 Consult to Physician [CONS] Stat Comment: Consulting Provider: ASHLEIGH LAUREANO Physician Instructions: Reason For Exam: respiratory failure 01/15/19 10:32 Consult to PICC Line RN [CONS] Urgent Reason For Exam: For iv pressors Type Line:: PICC 01/15/19 12:40 Consult to Physician [CONS] Routine Comment: Consulting Provider: GRACY GRANT Physician Instructions: Reason For Exam: jerky movements, s/p cardiac arrest 01/15/19 13:08 Consult to Dietitian/Nutrition [CONS] Routine Physician Instructions: Reason For Exam: tube feeding Reason for Consult: Write/Manage Tube Feeding 01/19/19 10:18 Consult to Physician [CONS] Routine Comment: Consulting Provider: MAREN JENSEN Physician Instructions: Reason For Exam: Pneumonia 01/22/19 12:56 Consult to Physician [CONS] Routine Comment: Consulting Provider: JOSE MARTÍNEZ Physician Instructions: Reason For Exam: Tracheostomy placement 01/22/19 19:15 Consult to Wound/ET Nurse [CONS] Stat Reason For Exam: wound eval-sacrum 01/31/19 09:22 Consult to Physician [CONS] Routine Comment: Consulting Provider: ANTON SOTELO Physician Instructions: Reason For Exam: peg tube placement 02/05/19 18:50 Consult to Wound/ET Nurse [CONS] Routine Reason For Exam: wound eval [facility] Reason for admission: cardiac arrest Condition: Serious Hospital course: Patient is 73 yo woman with a history of hypertension, CAD s/p stent and COPD/emphesema, not on home Oxygen who presented to [facility] ED on 01/15/2019 after cardiac arrest. How long she was unresponsive/without oxygen is unknown. She was in PEA, given 2 rounds of IV Epinephrine, CPR, intubated , resuscitated, and brought to ED. She had seizures later same day, was started on keppra. She had CARMELINA on presentation, resolved in few days. She remained comatose, acute respiratory failure vent dependent. Trach and PEG was recommended. Tracheostomy done 01/25/19. PEG not done yet because of abdominal distension and poor light translumination. She has poor prognosis and may need LTAC Oropharyngeal dysphagia. PEG tube done and tolerating diet Anoxic encephalopathy, severe irreversible brain damage: EEG 01/17/19 reported as abnormal with minimal brain activity. No epileptiform discharges per nEUROLOGY. Continue supportive care Cardiopulmonary arrest. Patient with out of hospital PEA arrest and ROSC. Cardiology monitored during in house.. Acute hypoxemic hypercapnic respiratory failure. Patient previously on mechanical ventilation but has been weaned. Continue TP trials. Continue trach care. Aspiration pneumonia. Completed treatment Aspiration precautions. Sepsis, poa. Complete Pneumonia treatment Acute renal failure, tubular necrosis and vasomotor nephropathy, poa. resolved, Etiology likely secondary to acute kidney injury from sepsis. Creatinine is stable. Continue to monitor. Pulmonary hypertension. Oil Dispatcher following Acute systolic heart failure. Patient with moderate global hypokinesis of left ventricle EF 35-40% and left ventricular systolic function moderately decreased. Cardiology following CAD s/p stent placement, She goes to cloth classer at [facility] Sacral decubitus, stage 3; continue wound care, decline to place a cooper, continue to use Purex catheter Patient was susbsquently discharged to LTAC for further management and care. Disposition: DC/TX-63 MEDICARE CERT LT Time spent for discharge: 35 mins Core Measure Documentation - Palliative Care Palliative Care/ Comfort Measures: Not Applicable - Core Measures Any of the following diagnoses?: none Exam - Physical Exam Narrative exam: Constitutional: no acute distress, asleep, elderly, atraumatic, normocephalic, c hronically looking female Eyes: non-icteric ENT: oropharynx moist, other (s/p tracheostomy) Neck: supple, no lymphadenopathy, no JVD Effort: normal Ascultation: Bilateral: diminished breath sounds, rales (bases), rhonchi (scant), (coarse breath sound bilaterally upper lobes anteriorly) Percussion: Bilateral: not dull Cardiovascular: regular rate and rhythm, other tacycardia, S1,S2, no murmurs, gallops or rubs Gastrointestinal: normoactive bowel sounds, soft, non-tender, non-distended, PEG in place Integumentary: normal Extremities: no cyanosis, no edema, pulses normal, no ischemia or petechiae Neurologic: unable to assess Psychiatric: unable to assess secondary to mental status - Constitutional Vitals: Temp Pulse Resp BP Pulse Ox 99.5 F 97 H 18 106/72 100 02/13/19 07:59 02/13/19 09:56 02/13/19 07:59 02/13/19 09:56 02/13/19 07:59 Plan Activity: advance as tolerated, fall precautions Diet: low salt, per dietitian instruction, advance as tolerated Special Instructions: record daily weights, record daily BP diary Follow up with: MICHAEL CARMONA MD [Staff Physician] - 7 Days GRACY GRANT MD [Staff Physician] - 7 Days [facility] MD MALENA [Primary Care Provider] - 3-5 Days CHRISTOPHER HUNTLEY MD [Staff Physician] - 7 Days
[2019-02-13] MEDS: SODIUM CHLORIDE FLUSH SYRINGE 10 ML IV PRN (13:56)
[2019-02-13 19:36] VITALS: BP 83/51
--- NOTE | 2019-02-14 14:25 | Operative Report ---
PREOPERATIVE DIAGNOSES: Dysphagia, ventilator dependent respiratory failure. POSTOPERATIVE DIAGNOSES: Dysphagia, ventilator dependent respiratory failure. FINDINGS: Good placement of PEG tube with bumper at 1.5 cm at the skin. PROCEDURE: Laparoscopic-assisted PEG tube placement. ANESTHESIA: General endotracheal anesthesia, local. SURGEON: Adrianna Bassett DO STRAP MACHINE OPERATOR AUTOMATIC: Rachelle Mcclain MD as a cosurgeon. ESTIMATED BLOOD LOSS: Minimal. PATHOLOGY: None. CONDITION DISPOSITION: The patient is stable to PACU. HISTORY OF PRESENT ILLNESS AND INDICATION: The patient is a 73-year-old female who presented to the hospital status post cardiac arrest. Since then she had been ventilator dependent. The patient underwent tracheostomy placement on 01/25/2019. However, PEG tube could not be placed due to inability to transilluminate during endoscopy. It was therefore recommended that IR place a percutaneous G-tube. Unfortunately, CAT scan showed the transverse colon to be overlying the stomach and percutaneous access, was not felt to be safe. Therefore, surgical G-tube was recommended. After much discussion with the family, all risks, benefits, and alternatives to surgery were discussed and consent obtained. The patient was deemed high risk by Cardiology, which was relayed to the family. Despite this, they wanted to proceed. PROCEDURE IN DETAIL: The patient was identified in the preoperative area and taken back to the operating room and placed on the operating table in supine position. After anesthesia was induced, the abdomen was prepped and draped in the usual sterile fashion. A timeout was performed. Dr. Mcclain performed endoscopy during the entire procedure. Please see his separate operative report. A local anesthetic was infiltrated into the skin at the intended incision sites. A 5 mm incision was made above the umbilicus through which a Veress needle was inserted. The Veress needle position was confirmed using the saline drop test. Once the abdomen was insufflated to 15 mmHg, the Veress needle was removed and a 5 mm Optiview trocar placed through this incision. The stomach was visualized and was insufflated under endoscopy. The abdominal pressure was then dropped to about 6 mmHg and the stomach was seen abutting the abdominal wall. A satisfactory position was chosen for insertion of the PEG tube that was at least 3 cm below the costal margin in the left upper quadrant. A local anesthetic was infiltrated into the skin. A small incision was made. A needle catheter complex was then inserted through the skin and directly into the stomach under laparoscopic and endoscopic guidance. The wire was then threaded and grasped with a snare via the endoscope. The wire was then pulled through the mouth, using the endoscope. The PEG tube was assembled and then pulled through the mouth and into the stomach. The outer bumper was seen to be at 2 cm and the stomach was abutting the abdominal wall. Dr. Mcclain performed endoscopy and inner bumper was flushed up against the serosa with a little bit of laxity and therefore it was pulled back slightly more until it was at 1.5 cm at the skin. The PEG tube was assembled in the usual fashion and the endoscopy completed by Dr. Mcclain. The stomach was desufflated and the abdomen was then slowly desufflated and the stomach was seen still abutting the abdominal wall. The port was then removed and the 5 mm port skin incision was closed with 4-0 Monocryl subcuticular skin stitch and skin glue. The PEG tube bumper was secured to the skin using 4-0 Monocryl simple interrupted stitches and a drain sponge was placed between the skin and the PEG tube. The patient tolerated the procedure well. At the end of the case, all sponge, instrument, sharp counts were correct x 2. She was taken to PACU in stable condition. JOB# [id number] BRIAN/VIANEY RAMIREZ
== END 2019-02-13 19:40 | DRG 3 ==
LOC: EDSEX → ED 07:32 → CC1 09:46 → 4A 02-04 21:27 → 2B-ACE 02-10 17:10
PROVIDERS: ADMIT Internal Medicine; ATTEND Internal Medicine
PROC: 5A1955Z Respiratory Ventilation, Greater than 96 Consecutive Hours (ICD-10-PCS; principal; 2019-01-15)
PROC: 0BH17EZ Insertion of Endotracheal Airway into Trachea, Via Natural or Artificial Opening (ICD-10-PCS; 2019-01-15)
PROC: 4A033R1 Measurement of Arterial Saturation, Peripheral, Percutaneous Approach (ICD-10-PCS; 2019-01-15)
PROC: 02HV33Z Insertion of Infusion Device into Superior Vena Cava, Percutaneous Approach (ICD-10-PCS; 2019-01-15)
PROC: 0B113F4 Bypass Trachea to Cutaneous with Tracheostomy Device, Percutaneous Approach (ICD-10-PCS; 2019-01-25)
PROC: 0DJ08ZZ Inspection of Upper Intestinal Tract, Via Natural or Artificial Opening Endoscopic (ICD-10-PCS; 2019-01-25)
PROC: 0D968ZZ Drainage of Stomach, Via Natural or Artificial Opening Endoscopic (ICD-10-PCS; 2019-01-25)
PROC: 0BJ08ZZ Inspection of Tracheobronchial Tree, Via Natural or Artificial Opening Endoscopic (ICD-10-PCS; 2019-01-25)
PROC: 0D9670Z Drainage of Stomach with Drainage Device, Via Natural or Artificial Opening (ICD-10-PCS; 2019-01-30)
PROC: 0DH64UZ Insertion of Feeding Device into Stomach, Percutaneous Endoscopic Approach (ICD-10-PCS; 2019-02-09)
PROC: 0DJ08ZZ Inspection of Upper Intestinal Tract, Via Natural or Artificial Opening Endoscopic (ICD-10-PCS; 2019-02-09)
DX: A41.9 Sepsis, unspecified organism (principal); I46.9 Cardiac arrest, cause unspecified; G93.41 Metabolic encephalopathy; N17.0 Acute kidney failure with tubular necrosis; J96.01 Acute respiratory failure with hypoxia; J96.02 Acute respiratory failure with hypercapnia; I50.43 Acute on chronic combined systolic (congestive) and diastolic (congestive) heart failure; J69.0 Pneumonitis due to inhalation of food and vomit; L89.153 Pressure ulcer of sacral region, stage 3; I85.00 Esophageal varices without bleeding; I42.9 Cardiomyopathy, unspecified; I13.0 Hypertensive heart and chronic kidney disease with heart failure and stage 1 through stage 4 chronic kidney disease, or unspecified chronic kidney disease; E87.2 Acidosis; K56.7 Ileus, unspecified; G93.1 Anoxic brain damage, not elsewhere classified; Z99.11 Dependence on respirator [ventilator] status; I25.10 Atherosclerotic heart disease of native coronary artery without angina pectoris; Z60.2 Problems related to living alone; D69.6 Thrombocytopenia, unspecified; I27.20 Pulmonary hypertension, unspecified; R19.7 Diarrhea, unspecified; M10.9 Gout, unspecified; F10.10 Alcohol abuse, uncomplicated; Y90.9 Presence of alcohol in blood, level not specified; N18.9 Chronic kidney disease, unspecified; J43.9 Emphysema, unspecified; R65.20 Severe sepsis without septic shock; R13.12 Dysphagia, oropharyngeal phase; Z95.5 Presence of coronary angioplasty implant and graft; Z82.49 Family history of ischemic heart disease and other diseases of the circulatory system; I25.2 Old myocardial infarction; Z82.3 Family history of stroke; Z88.8 Allergy status to other drugs, medicaments and biological substances
CPT/HCPCS: 31720; 36415; 36600; 70450; 71045; 71250; 74018; 74177; 80048; 80053; 80061; 80307; 81001; 82271; 82550; 82553; 82803; 82962; 83036; 83735; 83880; 84100; 84484; 85007; 85025; 85027; 85610; 85730; 86022; 87040; 87045; 87070; 87086; 87205; 87493; 93005; 93010; 93306; 94002; 94003; 94640; 94760; 95819; 96374; G0378; A9270-GY; C9113; J0295; J0330; J0696; J1265; J1650; J1652; J1815; J1940; J1953; J2060; J2250; J2704; J2765; J3010; J3370; J3475; J7030; Q9967

== ENCOUNTER 2019-04-03 20:28 | Emergency (ER) | payer MEDICARE ==
[2019-04-03] MEDS ORDERED: NACL 0.9% 500 ML IR ONE (21:19)
--- NOTE | 2019-04-03 21:56 | Emergency Department Report ---
ED General Adult HPI - General Chief complaint: Dyspnea/Respdistress Stated complaint: ANGELIA Time Seen by Provider: 04/03/19 21:22 Source: EMS Mode of arrival: Stretcher Limitations: Altered Mental Status - History of Present Illness Initial comments: Patient is a 73-year-old female who is in a group home and wears oxygen daily and has a trach. Patient was noted to have a low O2 sat at the group home was sent here. Patient never had any distress. Patient on arrival had an O2 sat which was within normal limits. Is unaware of the patient's had a falsely low O2 sat as she has some mucous plugging. Patient did not require suctioning - Related Data Home Medications Medication Instructions Recorded Confirmed Last Taken AtorvaSTATin [Lipitor] 20 mg PO QHS 01/15/19 01/15/19 Unknown Irbesartan 150 mg PO DAILY 01/15/19 01/15/19 Unknown amLODIPine [Norvasc] 10 mg PO DAILY 01/15/19 01/15/19 Unknown Previous Rx's Medication Instructions Recorded Last Taken Type Aspirin [Aspirin BABY CHEW TAB] 81 mg PO QDAY tab.chew 02/13/19 Unknown Rx Carvedilol [Coreg] 12.5 mg PO BID tablet 02/13/19 Unknown Rx Enoxaparin [Lovenox] 40 mg SUB-Q QDAY@1000 syringe 02/13/19 Unknown Rx Furosemide [Lasix TAB] 20 mg PO 0600,1800 tablet 02/13/19 Unknown Rx Ipratropium/Albuterol Sulfate 1 ampul IH Q6HRT ampul.neb 02/13/19 Unknown Rx [DUONEB *Not for PRN Use*] Lansoprazole Solutab [Prevacid 30 mg FEEDTUBE BID tab.rapdis 02/13/19 Unknown Rx Solutab] Lipase/Protease/Amylase [Pancreaze 1 each FEEDTUBE PRN PRN capsule 02/13/19 Unknown Rx 10,500 Unit] Lispro Insulin [HumaLOG] 0 unit SUB-Q Q6HR units 02/13/19 Unknown Rx Metoclopramide [Reglan INJ] 10 mg IV Q8HR vial 02/13/19 Unknown Rx Scopolamine [Transderm-Scop] 1 each TD Q3D patch 02/13/19 Unknown Rx Triamcinolone 0.1% [Kenalog 0.1% 1 applic TP BID tube 02/13/19 Unknown Rx CREAM] amLODIPine [Norvasc] 10 mg PO DAILY tablet 02/13/19 Unknown Rx levETIRAcetam [Keppra] 750 mg PO BID oral.liqd 02/13/19 Unknown Rx Allergies Allergy/AdvReac Type Severity Reaction Status Date / Time No Known Allergies Allergy Verified 01/30/19 08:22 ED Review of Systems ROS: Stated complaint: ANGELIA Other details as noted in HPI Comment: All other systems reviewed and negative ED Past Medical Hx - Past Medical History Previous Medical History?: Yes Hx Hypertension: Yes Hx Heart Attack/AMI: Yes Hx Deep Vein Thrombosis: No Hx Liver Disease: No Hx Renal Disease: No Hx Seizures: Yes Hx Asthma: No Hx COPD: Yes Additional medical history: Anemia - Surgical History Past Surgical History?: Yes Hx Pacemaker: No Hx Internal Defibrillator: No - Social History Smoking Status: Never Smoker Substance Use Type: None - Medications Home Medications: Home Medications Medication Instructions Recorded Confirmed Last Taken Type AtorvaSTATin [Lipitor] 20 mg PO QHS 01/15/19 01/15/19 Unknown History Irbesartan 150 mg PO DAILY 01/15/19 01/15/19 Unknown History amLODIPine [Norvasc] 10 mg PO DAILY 01/15/19 01/15/19 Unknown History Aspirin [Aspirin BABY CHEW TAB] 81 mg PO QDAY tab.chew 02/13/19 Unknown Rx Carvedilol [Coreg] 12.5 mg PO BID tablet 02/13/19 Unknown Rx Enoxaparin [Lovenox] 40 mg SUB-Q QDAY@1000 syringe 02/13/19 Unknown Rx Furosemide [Lasix TAB] 20 mg PO 0600,1800 tablet 02/13/19 Unknown Rx Ipratropium/Albuterol Sulfate 1 ampul IH Q6HRT ampul.neb 02/13/19 Unknown Rx [DUONEB *Not for PRN Use*] Lansoprazole Solutab [Prevacid 30 mg FEEDTUBE BID tab.rapdis 02/13/19 Unknown Rx Solutab] Lipase/Protease/Amylase [Pancreaze 1 each FEEDTUBE PRN PRN capsule 02/13/[address] 10,500 Unit] Lispro Insulin [HumaLOG] 0 unit SUB-Q Q6HR units 02/13/19 Unknown Rx Metoclopramide [Reglan INJ] 10 mg IV Q8HR vial 02/13/19 Unknown Rx Scopolamine [Transderm-Scop] 1 each TD Q3D patch 02/13/19 Unknown Rx Triamcinolone 0.1% [Kenalog 0.1% 1 applic TP BID tube 02/13/19 Unknown Rx CREAM] amLODIPine [Norvasc] 10 mg PO DAILY tablet 02/13/19 Unknown Rx levETIRAcetam [Keppra] 750 mg PO BID oral.liqd 02/13/19 Unknown Rx ED Physical Exam - General Limitations: Altered Mental Status General appearance: alert, in no apparent distress - Head Head exam: Present: atraumatic, normocephalic - ENT ENT exam: Present: mucous membranes moist - Neck Neck exam: Present: normal inspection - Respiratory Respiratory exam: Present: normal lung sounds bilaterally, other (patient has a trach collar present with no mucus plugging). Absent: respiratory distress, wheezes, rales, rhonchi, stridor - Cardiovascular Cardiovascular Exam: Present: regular rate, normal rhythm. Absent: systolic murmur, diastolic murmur, rubs, gallop - GI/Abdominal GI/Abdominal exam: Present: soft, normal bowel sounds - Extremities Exam Extremities exam: Present: normal inspection - Back Exam Back exam: Present: normal inspection - Neurological Exam Neurological exam: Present: altered - Psychiatric Psychiatric exam: Present: normal affect, normal mood - Skin Skin exam: Present: warm, dry, intact, normal color. Absent: rash ED Course Vital Signs 04/03/19 04/03/19 20:50 21:25 Temperature 98.4 F Pulse Rate 101 H Respiratory 22 Rate Blood Pressure 114/65 O2 Sat by Pulse 100 100 Oximetry ED Medical Decision Making - Medical Decision Making Patient could've possibly had some mucus plugging with a low O2 sat of the patient could've just had a falsely low oxygen saturation secondary to positioning or a cold finger. Patient has been monitored here for over an hour has had no issues. Patient's lungs are clear she is in no distress. Patient be discharged home Critical care attestation.: If time is entered above; I have spent that time in minutes in the direct care of this critically ill patient, excluding procedure time. ED Disposition Clinical Impression: Hypoxic episode Disposition: DC-01 TO HOME OR SELFCARE Is pt being admited?: No Does the pt Need Aspirin: No Condition: Stable Time of Disposition: 21:58
[2019-04-03 23:41] VITALS: BP 118/73
== END 2019-04-03 23:35 | disposition home or self-care (01) ==
LOC: ED 20:28
DX: R09.02 Hypoxemia (principal); I10 Essential (primary) hypertension; I25.2 Old myocardial infarction; J44.9 Chronic obstructive pulmonary disease, unspecified
CPT/HCPCS: 82803; 94760